=== PATIENT | female | born 2005 | race African-American/Black ===

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

== ENCOUNTER 2024-04-12 21:03 | Emergency (ER) | payer BC, OTHER, SELFPAY ==
[2024-04-12 21:14] VITALS: BP 131/73; PULSE 100; RESP 20; TEMP 36.7; O2SAT 99
--- NOTE | 2024-04-12 23:20 | ED.ANIMALBIT ---
HPI - Animal Bite General Chief Complaint: Animal Bite Stated Complaint: dog bite Time Seen by Provider: 04/12/24 22:22 Source: patient Mode of arrival: ambulatory Limitations: no limitations History of Present Illness HPI narrative: This is a 18-year-old female who presents to the ED with chief complaint of dog bite injury that occurred just prior to arrival. Patient reports that she was trying to pad her boyfriend's dog, when she seemed to have aggravated the dog. Reports the dog came up and bit her bottom lip. Denies any further sites of pain or injury. Related Data Home Medications Medication Instructions Recorded Confirmed insulin glargine 100 unit/mL (3 5 unit subcut QPM 12/05/21 12/05/21 mL) subcutaneous pen (Basaglar KwikPen U-100 Insulin) insulin lispro 100 unit/mL 1 sliding scale dose subcut 12/05/21 12/05/21 subcutaneous half-unit pen USEASDIRECTD oxybutynin chloride 10 mg 10 mg PO DAILY 12/05/21 12/05/21 tablet,extended release 24 hr etonogestrel 68 mg subdermal 1 implant subdermal ONCE 07/30/23 implant (Nexplanon) Allergies Allergy/AdvReac Type Severity Reaction Status Date / Time No Known Allergies Allergy Verified 04/12/24 22:24 Review of Systems Review of Systems: All systems as dictated in [facility] Past Medical History Medical History Encounter for surveillance of other contraceptives Type 1 diabetes Family History Family History Grandparent Diabetes mellitus Social History Social History Smoking status: Never smoker Alcohol intake: never Substance use: never Living arrangements: with family Occupation/Education: student Additional occupation/education comments: [employer] in high school Gender identity (if verbalized by the patient): Female Sexual Orientation (if Verbalized by the Patient): Bisexual Exam Narrative: GENERAL: Well-appearing, well-nourished, and in no acute distress. HEAD: Normocephalic, atraumatic. EYES: PERRLA and EOMI. ENT: Nares clear, no rhinorrhea or epistaxis. Mucous membranes moist. Oropharynx without tonsillar hypertrophy exudate or other lesions. NECK: Supple. No adenopathy or masses. CHEST: No respiratory distress. Clear to auscultation. No wheezes rales or rhonchi HEART: Regular rate and rhythm. No murmur heard. Normal peripheral pulses. ABDOMEN: Soft, nontender, nondistended, normal active bowel sounds. MSK: Normal range of motion. No edema. SKIN: 1 cm laceration to the lower lip/chin area. It is not through and through. Additional superficial laceration noted to the upper lip/philtrum area. No vermilion border involvement throughout Additional superficial laceration to the mucosal surface of the bottom lip. No active bleeding NEURO: Alert and oriented x3. No focal deficits. PSYCH: Normal mood and affect. Course Vital Signs Vital signs: Vital Signs Temperature 98.1 F 04/12/24 21:14 Pulse Rate 100 04/12/24 21:14 Respiratory Rate 20 04/12/24 21:14 Blood Pressure 131/73 04/12/24 21:14 Pulse Oximetry 99 04/12/24 21:14 Temperature 98.1 F 04/12/24 21:14 Pulse Rate 100 04/12/24 21:14 Respiratory Rate 20 04/12/24 21:14 Blood Pressure 131/73 04/12/24 21:14 Pulse Oximetry 99 04/12/24 21:14 Procedures Laceration Laceration 1: Date: 04/13/24 Time: 00:08 Site: lip Size (cm): 1 Description: linear Depth: simple, single layer Local Anesthetic: lidocaine 1% Amount of anesthesia used (mL): 1 Pre-repair: wound explored, irrigated extensively and deep structures intact ====== Skin Level ====== Skin layer closed with: nylon Size (cm): 6-0 Number of sutures: 1 Technique: simple, interrupted ====== Subcutaneous Layer =
[2024-04-13] MEDS: TETANUS,DIPHTHERIA,AC PERTUSSIS ADULT (0.5 ML) BOOSTRIX IM (00:40)
[2024-04-13] MEDS: LIDOCAINE HCL 1% LOCAL INJ 10 ML VIAL INFILTRATE (00:40)
== END 2024-04-13 00:52 | disposition home or self-care (01) ==
PROVIDERS: Emergency Provider Physician Assistant
DX: S01.551A Open bite of lip, initial encounter (principal); Z23 Encounter for immunization; E10.9 Type 1 diabetes mellitus without complications; Z79.4 Long term (current) use of insulin; W54.0XXA Bitten by dog, initial encounter
CPT/HCPCS: 12011; 90471; 90715; 99283

== ENCOUNTER 2024-11-14 12:39 | Observation (INO) | payer BC, OTHER, SELFPAY ==
--- NOTE | ~2024-11-14 | XR_ITS ---
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 RESULT: Lines, tubes, and devices: None. Lungs and pleura: Clear. Cardiomediastinal silhouette: Normal. Other: No acute osseous or upper abdominal finding. IMPRESSION: No acute cardiopulmonary process. Reviewed, dictated and finalized at location K. OPERATION SUPERVISOR
[2024-11-14 12:43] VITALS: BP 107/51; PULSE 112; RESP 18; TEMP 36.7; O2SAT 100
[2024-11-14 13:01] LABS: Glucose Point of Care 381 mg/dl (65-105)
[2024-11-14 13:46] LABS: Basophils Percent Auto 0.3 % (0.2-1.2); Eosinophils Absolute Auto 0.1 K/mm3 (0-0.3); Eosinophils Percent Auto 0.6 % (0-4.4); Hematocrit 40.4 % (37.0-47.0); Hemoglobin 13.8 g/dL (12.0-15.0); Immature Granulocyte Absolute 0.02 K/mm3 (0.00-0.031); Immature Granulocyte Percent A 0.2 % (0-0.5); Lymphocytes Absolute Auto 1.74 K/mm3 (0.9-3.2); Lymphocytes Percent Auto 19.6 % (18.3-44.2); Mean Corpuscular HGB Conc 34.2 g/dl (32-36); Mean Corpuscular Hemoglobin 29.6 pg (26-34); Mean Corpuscular Volume 86.7 fl (80-100); Mean Platelet Volume 9.2 fl (7.4-10.4); Monocytes Absolute Auto 0.7 K/mm3 (0.1-0.6); Monocytes Percent Auto 7.3 % (2.6-8.5); Neutrophils Absolute Auto 6.4 K/mm3 (1.3-6.7); Platelet Count Result 298 k/mm3 (150-375); Red Blood Count 4.66 M/mm3 (4.2-5.4); Red Cell Distribution Width 12.2 % (11.5-14.5); White Blood Count 8.9 K/mm3 (4.5-10.0)
[2024-11-14 13:58] LABS: Alanine Aminotransferase 13 U/L (6-35); Albumin Level 4.4 g/dL (3.5-5.1); Alkaline Phosphatase 110 U/L (38-126); Anion Gap 11 mmol/L (4-12); Aspartate Amino Transferase 22 U/L (14-36); Bilirubin,Total 0.8 mg/dL (0.2-1.3); Blood Urea Nitrogen 17 mg/dL (7-17); Calcium 9.9 mg/dL (8.4-10.2); Carbon Dioxide 21 mmol/L (22-30); Chloride 100 mmol/L (98-107); Estimated Glomerular Filt Rate > 60; Glucose 361 mg/dL (65-110); Magnesium 1.8 mg/dL (1.6-2.3); Phosphorus 4.3 mg/dL (2.5-4.5); Potassium 4.7 mmol/L (3.4-5.0); Sodium 132 mmol/L (137-145)
[2024-11-14 14:05] LABS: Beta-Hydroxybutyrate/Acetoacetate 2.28 mmol/L (0.02-0.27)
[2024-11-14 14:52] LABS: Add Urine Microscopic? YES; Appearance Urine Cloudy (Clear); Bacteria Urine None Seen /hpf; Bilirubin Urine Negative (Negative); Blood Urine Negative (Negative); Color Urine Yellow (Yellow); Glucose Urine UA 3+ mg/dL (Negative); Ketones Urine 4+ mg/dL (Negative); Leukocyte Esterase Ur Negative LEU/UL (Negative); Nitrate Urine Negative (Negative); Non Pathogenic Casts 0-2; Protein Urine Negative (Negative); Specific Grav Ur 1.036 (1.001-1.035); Squamous Epithelial Cell Urine None Seen /hpf (Few); Urobilinogen Urine 0.2 mg/dL (<2.0); WBC Urine 0-5 /hpf (0-3)
[2024-11-14] MEDS: SODIUM CHLORIDE 0.9% IV 1,000 ML 999 ML IV CONT (15:25)
[2024-11-14] MEDS: LACTATED RINGERS 1,000 ML 999 ML IV CONT ×2 (15:35)
[2024-11-14] MEDS: KETOROLAC 15 MG/ML VIAL (*BKC) IV PUSH (16:04)
[2024-11-14 17:10] VITALS: RESP 16; O2SAT 99
--- NOTE | 2024-11-14 17:11 | PC.NURSE ---
pt father came out to alert this RN that patient was in pain. Initially when RN went to assess pain, pt could not tell this RN where her pain was, just said it started a few minutes ago and repeated its 7-8 . When RN went in again to assess, pt states pain is from her chin to her belly and it only started a few minutes ago. Father also endorses that patient mother is a nurse and would like a chest XR and respiratory panel run for concern for pneumonia since she has had this cough for 3 weeks. No cough noted per RN. Pt does not seem to want to participate in care, allows father to do all the talking. Pt ambulated with steady gait to restroom for urine sample, father upset that this RN did not walk her across the perez to the bathroom due to her pain. MD aware, orders placed for chest XR
[2024-11-14] MEDS: MORPHINE SULFATE (*CRX) 4 MG/ML INJ IV PUSH (17:42)
[2024-11-14 17:49] LABS: BEDSIDEPREGUCG Negative (Negative)
[2024-11-14 18:01] LABS: Anion Gap 11 mmol/L (4-12); Blood Urea Nitrogen 15 mg/dL (7-17); Calcium 9.3 mg/dL (8.4-10.2); Carbon Dioxide 17 mmol/L (22-30); Chloride 104 mmol/L (98-107); Estimated Glomerular Filt Rate > 60; Glucose 286 mg/dL (65-110); Potassium 4.3 mmol/L (3.4-5.0); Sodium 132 mmol/L (137-145)
[2024-11-14 18:05] LABS: Beta-Hydroxybutyrate/Acetoacetate 2.38 mmol/L (0.02-0.27)
[2024-11-14 18:20] LABS: Influenza A QL RT-PCR Negative (Negative); Influenza B QL RT-PCR Negative (Negative); RSV RNA, RT-PCR Negative (Negative); SARS-CoV-2 RNA PCR Negative (Negative)
--- NOTE | 2024-11-14 18:39 | ED.RECABL ---
HPI - Recheck/Abnormal Lab/Rx General Chief Complaint: Recheck/Abnormal Lab/Rx Stated Complaint: ketoacidosis Time Seen by Provider: 11/14/24 15:05 History of Present Illness HPI narrative: 19-year-old female with a past medical history of insulin-dependent diabetes presented to the emergency depart accompanied by mother and father for concerns of diabetic ketoacidosis. Patient was recently started on insulin pump about 5 days prior and transition from her subcutaneous insulin. She does that despite insulin pump she was having high glucose readings on her glucometer and continues glucose monitor. She states that it read high multiple times and she end up taking additional subcutaneous insulin without any bulging in her levels. Patient presents to the emergency department for evaluation. She denies any nausea or vomiting but states she is having some vague back pain. No fever chills, cough, congestion. Was otherwise in her normal state of health. Has had previous DKA admissions in ICU hospitalizations previously in childhood. Her mother states that she is not nearly as severe she usually is in her DKA. Laboratory studies were drawn triage. Related Data Home Medications ?Medication ?Instructions ?Recorded ?Confirmed ?Last Taken ?Type insulin glargine 100 unit/mL (3 5 unit subcut QPM 12/05/21 12/05/21 Unknown History mL) subcutaneous pen (Basaglar KwikPen U-100 Insulin) insulin lispro 100 unit/mL 1 sliding scale dose subcut 12/05/21 12/05/21 Unknown History subcutaneous half-unit pen USEASDIRECTD oxybutynin chloride 10 mg 10 mg PO DAILY 12/05/21 12/05/21 Unknown History tablet,extended release 24 hr etonogestrel 68 mg subdermal 1 implant subdermal ONCE 07/30/23 Unknown History implant (Nexplanon) Allergies Allergy/AdvReac Type Severity Reaction Status Date / Time No Known Allergies Allergy Verified 11/14/24 12:40 Review of Systems Review of Systems: As reviewed above in HPI [facility] Past Medical History Medical History Encounter for surveillance of other contraceptives Type 1 diabetes Family History Family History Grandparent Diabetes mellitus Social History Social History Smoking status: Never smoker Alcohol intake: never Substance use: never Living arrangements: with family Occupation/Education: student Additional occupation/education comments: [employer] in high school Gender identity (if verbalized by the patient): Female Sexual Orientation (if Verbalized by the Patient): Bisexual Exam Narrative: GENERAL: [Well-appearing, well-nourished, and in no acute distress.] HEAD: [Normocephalic, atraumatic.] EYES: [PERRLA and EOMI.] ENT: Nares clear, no rhinorrhea or epistaxis. Mucous membranes dry. NECK: Supple. CHEST: [Clear to auscultation. No respiratory distress.] HEART: [Regular rate and rhythm]. No murmur heard. [Normal peripheral pulses.] ABDOMEN: [Soft, nondistended], [nontender], [No rigidity or guarding] insulin pump in her right lateral abdomen no overlying skin changes or erythema, cellulitis. EXTREMITIES: Normal range of motion. [No edema.] SKIN: Warm, dry, no rash. NEURO: [No focal deficits]. Alert and oriented [x3.] PSYCH: [Normal mood and affect.] Course Vital Signs Vital signs: Vital Signs Temperature 36.7 C 11/14/24 12:43 Pulse Rate 112 H 11/14/24 12:43 Respiratory Rate 18 11/14/24 12:43 Blood Pressure 107/51 L 11/14/24 12:43 Pulse Oximetry 100 11/14/24 12:43 Oxygen Delivery Room Air 11/14/24 12:43 Temperature 36.7 C 11/14/24 12:43 Pulse Rate 112 H 11/14/24 12:43 Respiratory Rate 16 11/14/24 17:10 Blood Pressure 107/51 L 11/14/24 12:43 Pulse Oximetry 99 11/14/24 17:10 Oxygen Delivery Room Air 11/14/24 12:43 MDM - Recheck/Abnormal Lab/Rx MDM Narrative Medical decision making narrative: 19-year-old female with a past medical history including insulin-dependent diabetes presenting to the emergency department for evaluation of potential diabetic ketoacidosis. She does appear dryness tachycardic with a pulse 112 but otherwise afebrile, no hypoxia, no nausea or vomiting. Some vague back pain that she states she has had on off for some time. Recently started on insulin pump and thinks that could be malfunctioning. I did review the insulin pump on her continuous glucometer and noticed that it appears to not be injecting any appropriate insulin doses as she is still getting hyperglycemia and having multiple episodes of high readings despite supposed insulin junction. DKA workup was ordered this time including beta hydroxybutyrate, CBC, CMP. Chest x-ray, urinalysis and test was ordered. She is given a total of 3 L of hydration off initial bolus. Initial beta hydroxybutyrate is elevated 2.28, mild acidosis with a bicarb of 21, no anion gap. Potassium 4.7. She was given fluid hydration and repeat labs were drawn several hours later which show actual worsening status and now she is slightly more acidotic with a bicarb of 17 and elevated beta at 2.38 and this is despite fluid resuscitation and the basal rate of insulin through her insulin pump is still on her. At this time I did remove the insulin pump and transition her to IV insulin for her slightly elevated beta hydroxybutyrate and clinical diagnosis of mild DKA with acidosis, ketones, elevated glucose, no elevated anion gap at this time but she is still slightly tachycardic. I believe she would benefit from a very short course of IV insulin and transition back to subcutaneous therapy and hospital admission for titration and management of her insulin pump to get her on appropriate regimen and to make sure it is working properly. Patient and family were appreciative of this and agreeable to this plan of care. No obvious triggers otherwise she has no signs of infection, chest x-ray without pneumonia, urinalysis without infection, negative test, negative swabs. DKA protocol was ordered including potassium supplemented dextrose fluids and 0.1 units/kilogram IV insulin with frequent glucose checks. She will require ICU admission briefly for glucose checks and make sure her acidosis is resolved and her beta hydroxybutyrate down trends. I discussed this with the tank wagon operator over the phone who accepted her to the ICU for monitoring and IV insulin. I spoke to the hospitalist being covered by the midlevel provider Brandie at this time and they also accepted the patient to the hospital at this time. Medical Records Attestation: I reviewed the patient's medical records. Lab Data Attestation: I reviewed the patient's lab results. 11/14/24 13:39 11/14/24 17:26 Labs: Lab Results 11/14/24 11/14/24 11/14/24 Range/Units 12:51 13:39 14:36 WBC 8.9 (4.5-10.0) K/mm3 RBC 4.66 (4.2-5.4) M/mm3 Hgb 13.8 (12.0-15.0) g/dL Hct 40.4 (37.0-47.0) % MCV 86.7 (80-100) fl MCH 29.6 (26-34) pg MCHC 34.2 (32-36) g/dl RDW 12.2 (11.5-14.5) % Plt Count 298 (150-375) k/mm3 MPV 9.2 (7.4-10.4) fl Immature Gran % (Auto) 0.2 (0-0.5) % Neut % (Auto) 72.0 (45.5-73.1) % Lymph % (Auto) 19.6 (18.3-44.2) % Mel[place] % (Auto) 7.3 (2.6-8.5) % Eos % (Auto) 0.6 (0-4.4) % Baso % (Auto) 0.3 (0.2-1.2) % Lymph # (Auto) 1.74 (0.9-3.2) K/mm3 Mel[place] # (Auto) 0.7 H (0.1-0.6) K/mm3 Eos # (Auto) 0.1 (0-0.3) K/mm3 Baso # (Auto) 0.0 (0.0-0.1) K/mm3 Abs Immat Gran (auto) 0.02 (0.00-0.031) K/mm3 Absolute Neuts (auto) 6.4 (1.3-6.7) K/mm3 Absolute Nucleated RBC 0.000 (0.0-0.012) K/mm3 Nucleated RBC % 0.0 (0.0-0.2) % Sodium 132 L (137-145) mmol/L Potassium 4.7 (3.4-5.0) mmol/L Chloride 100 (98-107) mmol/L Carbon Dioxide 21 L (22-30) mmol/L Anion Gap 11 (4-12) mmol/L BUN 17 (7-17) mg/dL Creatinine 0.60 L (0.7-1.0) mg/dL Estim Creat Clear Calc Not Reportable Estimated GFR > 60 (59 - ) Glucose 361 H (65-110) mg/dL POC Capillary Glucose 381 H (65-105) mg/dl Calcium 9.9 (8.4-10.2) mg/dL Phosphorus 4.3 (2.5-4.5) mg/dL Magnesium 1.8 (1.6-2.3) mg/dL Total Bilirubin 0.8 (0.2-1.3) mg/dL AST 22 (14-36) U/L ALT 13 (6-35) U/L Alkaline Phosphatase 110 (38-126) U/L Total Protein 8.0 (6.3-8.2) g/dL Albumin 4.4 (3.5-5.1) g/dL Beta-Hydroxybutyrate/Acetoacetate 2.28 H (0.02-0.27) mmol/L Urine Color Yellow (Yellow) Urine Appearance Cloudy H (Clear) Urine pH 5.0 (5.0-9.0) Ur Specific [place] 1.036 H (1.001-1.035) Urine Protein Negative (Negative) mg/dL Urine Glucose (UA) 3+ H (Negative) mg/dL Urine Ketones 4+ H (Negative) mg/dL Ur Blood (Man) Negative (Negative) Urine Nitrate Negative (Negative) Urine Bilirubin Negative (Negative) Urine Urobilinogen 0.2 (<2.0) mg/dL Leukocyte Esterase Rfl Negative (Negative) JENNIFER/UL Urine RBC 3-5 H (0-2) /hpf Urine WBC 0-5 (0-3) /hpf Ur Squamous Epith Cells None seen (Few) /hpf Urine Bacteria None seen /hpf Urine Casts 0-2 POC Urine HCG, Qual (Negative) Influenza A (RT-PCR) (Negative) Influenza B (RT-PCR) (Negative) RSV (RT-PCR) (Negative) SARS-CoV-2 RNA (RT-PCR) (Negative) 11/14/24 11/14/24 Range/Units 17:26 17:47 WBC (4.5-10.0) K/mm3 RBC (4.2-5.4) M/mm3 Hgb (12.0-15.0) g/dL Hct (37.0-47.0) % MCV (80-100) fl MCH (26-34) pg MCHC (32-36) g/dl RDW (11.5-14.5) % Plt Count (150-375) k/mm3 MPV (7.4-10.4) fl Immature Gran % (Auto) (0-0.5) % Neut % (Auto) (45.5-73.1) % Lymph % (Auto) (18.3-44.2) % Mellette % (Auto) (2.6-8.5) % Eos % (Auto) (0-4.4) % Baso % (Auto) (0.2-1.2) % Lymph # (Auto) (0.9-3.2) K/mm3 Mellette # (Auto) (0.1-0.6) K/mm3 Eos # (Auto) (0-0.3) K/mm3 Baso # (Auto) (0.0-0.1) K/mm3 Abs Immat Gran (auto) (0.00-0.031) K/mm3 Absolute Neuts (auto) (1.3-6.7) K/mm3 Absolute Nucleated RBC (0.0-0.012) K/mm3 Nucleated RBC % (0.0-0.2) % Sodium 132 L (137-145) mmol/L Potassium 4.3 (3.4-5.0) mmol/L Chloride 104 (98-107) mmol/L Carbon Dioxide 17 L (22-30) mmol/L Anion Gap 11 (4-12) mmol/L BUN 15 (7-17) mg/dL Creatinine 0.50 L (0.7-1.0) mg/dL Estim Creat Clear Calc Not Reportable Estimated GFR > 60 (59 - ) Glucose 286 H (65-110) mg/dL POC Capillary Glucose (65-105) mg/dl Calcium 9.3 (8.4-10.2) mg/dL Phosphorus (2.5-4.5) mg/dL Magnesium (1.6-2.3) mg/dL Total Bilirubin (0.2-1.3) mg/dL AST (14-36) U/L ALT (6-35) U/L Alkaline Phosphatase (38-126) U/L Total Protein (6.3-8.2) g/dL Albumin (3.5-5.1) g/dL Beta-Hydroxybutyrate/Acetoacetate 2.38 H (0.02-0.27) mmol/L Urine Color (Yellow) Urine Appearance (Clear) Urine pH (5.0-9.0) Ur Specific [place] (1.001-1.035) Urine Protein (Negative) mg/dL Urine Glucose (UA) (Negative) mg/dL Urine Ketones (Negative) mg/dL Ur Blood (Man) (Negative) Urine Nitrate (Negative) Urine Bilirubin (Negative) Urine Urobilinogen (<2.0) mg/dL Leukocyte Esterase Rfl (Negative) JENNIFER/UL Urine RBC (0-2) /hpf Urine WBC (0-3) /hpf Ur Squamous Epith Cells (Few) /hpf Urine Bacteria /hpf Urine Casts POC Urine HCG, Qual Negative (Negative) Influenza A (RT-PCR) Negative (Negative) Influenza B (RT-PCR) Negative (Negative) RSV (RT-PCR) Negative (Negative) SARS-CoV-2 RNA (RT-PCR) Negative (Negative) Imaging Data Attestation: I personally reviewed and interpreted this imaging study as follows: My impression: Impressions Chest X-Ray 11/14/24 17:35 IMPRESSION: No acute cardiopulmonary process. Critical Care Time Critical Care Time Critical Care Time: Yes Total Critical Care Time: 50 Discharge Plan Discharge Clinical Impression: Diabetic ketoacidosis without coma, Type 1 diabetes, Complication of insulin pump Patient Disposition: Still a Patient Condition: Stable Patient Language: Cook Islander Prescriptions: No Action Khadijah Rojo U-100 Insulin 100 unit/mL (3 mL) insulin pen 5 unit subcut QPM insulin lispro 100 unit/mL insulin pen, half-unit 1 sliding scale dose subcut USEASDIRECTD oxybutynin chloride 10 mg tablet extended release 24hr 10 mg PO DAILY clotrimazole 1 % cream 1 applic topical Q12H PRN (Reason: vulvar) Qty: 45 1RF Nexplanon 68 mg implant 1 implant subdermal ONCE Rx Instructions: as a single dose amoxicillin-pot clavulanate 875-125 mg tablet 1 tablet PO Q12H Qty: 10 0RF amoxicillin-pot clavulanate 875-125 mg tablet 1 tablet PO Q12H Qty: 10 0RF fluconazole 150 mg tablet 150 mg PO Q72H Qty: 2 0RF Follow-up/Referrals: UNKNOWN,DOCTOR [Primary Care Provider] - Time of Disposition: 18:52
[2024-11-14] MEDS: INSULIN HUMAN REGULAR (*BKC) 100 UNITS in SODIUM CHLORIDE 0.9% IV 99 ML 6.5 UNITS IV CONT (18:51)
[2024-11-14 19:00] LABS: Magnesium 1.5 mg/dL (1.6-2.3)
--- NOTE | 2024-11-14 20:05 | ADMGEN ---
This patient, Anaid Dimas, was admitted to Intensive Care Unit-3. Patient/family oriented to hospital policies and general routines including ID bracelet, bed and alarms, visiting hours, pain management, procedures, bathroom and other care routines, personal items, smoking policy, room service/diet, and visiting hours. Information on how to activate the Rapid Response Team has been discussed. Patient/Family are encouraged to report perceived risks to care and to ask questions if they do not understand what they are told or what they should do.
--- NOTE | 2024-11-14 20:19 | PM.IMHP ---
H&P: HPI History of Present Illness Date/Time: 11/14/24 20:19 Chief Complaint: Nausea and vomiting Narrative: This is a 19-year-old female with past medical history significant for type 1 diabetes mellitus, patient recently was started on insulin pump. Had abnormal reading blood glucose at 300 and 400 according to monitor + comes to the emergency room due to nausea and vomiting. Preliminary workup was significant for elevated beta hydroxybutyrate. Patient tested negative for COVID RSV influenza type A and influenza type B. patient has been admitted for further evaluation management and treatment. 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 RESULT: Lines, tubes, and devices: None. Lungs and pleura: Clear. Cardiomediastinal silhouette: Normal. Other: No acute osseous or upper abdominal finding. IMPRESSION: No acute cardiopulmonary process. Review of Systems Review of Systems: Nausea, vomiting, uncontrolled sugars, abdominal pain. [facility] Past Medical History Medical History Encounter for surveillance of other contraceptives Type 1 diabetes Family History Family History Grandparent Diabetes mellitus Social History Social History Smoking status: Never smoker Alcohol intake: never Substance use: never Do You Feel Safe in your Home?: Yes Lack of Transportation: No Lack of Food: Never True Current Housing: I Have Housing Concerned About Future Housing: No Difficulty Paying Gas/Electric Bills: No Difficulty Paying for Meds: No Currently Unemployed: No Education: Decline to Answer Difficulty w/ Childcare or Family Care: No Living arrangements: with family Occupation/Education: student Additional occupation/education comments: [employer] in high school Gender identity (if verbalized by the patient): Female Sexual Orientation (if Verbalized by the Patient): Bisexual Spiritual care concerns: No Meds Home Medications and Allergies Home Medications ?Medication ?Instructions ?Recorded ?Confirmed ?Type blood-glucose sensor (Dexcom G6 11/14/24 11/14/24 History Sensor device) blood-glucose transmitter (Dexcom 11/14/24 11/14/24 History G6 Transmitter device) insulin pump cart,auto,BT,G6/7 11/14/24 11/14/24 History (Omnipod 5 G6-G7 Pods (Gen 5) subcutaneous cartridge) insulin pump cartridge,auto 11/14/24 11/14/24 History dose,BT,G6/G7 with controller subcutaneous (Omnipod 5 G6-G7 Intro Kit(Gen 5) subcutaneous cartridge and controller) Allergies Allergy/AdvReac Type Severity Reaction Status Date / Time No Known Allergies Allergy Verified 11/14/24 12:40 Vital Signs Vital Signs - 24 hr 11/14/24 12:43 11/14/24 17:10 Temperature 98.0 F Pulse Rate 112 H Respiratory Rate 18 16 Blood Pressure 107/51 L Pulse Oximetry 100 99 Oxygen Delivery Room Air Exam Narrative: Patient is laying in bed Const: General: comfortable, no acute distress, well developed, alert, awake, tired appearing and thin Nutritional Appearance: thin Orientation/consciousness: patient oriented x3 HENMT: Head: normal to inspection, normocephalic and atraumatic Ears: hearing grossly normal bilaterally Face/Nose/Sinus: normal facial exam Face and sinus: normal facial exam Eyes: General: appearance normal, both eyes and all related structures Pupils: Equal, round and reactive pupils present EOM: EOMs intact bilaterally Neck: Neck: full ROM, no lymphadenopathy and no JVD Thyroid: thyroid normal Lymphatic: no lymphadenopathy noted Resp: Effort & Inspection: normal respiratory effort and able to speak in complete sentences Auscultation: clear to auscultation bilaterally Cardio: Jugular venous distension: no JVD Rate: regular rate Rhythm: regular rhythm Heart sounds: S1 normal heart sound present and S2 normal heart sound present GI: GI Palp: Yes Soft to palpation and Yes No hepatosplenomegaly present : General: Yes deferred Skin: Rashes: no rashes Wounds: no wounds Neuro: General: patient oriented x3 and CN's II-XI intact bilaterally Cranial nerves: Yes CN's II-XII intact bilaterally and Yes Equal, round and reactive pupils present Cognition (Neuro): normal cognition Speech: normal speech Gait exam (Neuro): Unable to assess gait Motor exam (neuro): 5/5 motor strength present throughout Extrem: General: normal to inspection, full ROM, no joint enlargement and no pedal edema H&P: Results Labs Labs: Short CBC 12/23/24 Range/Units 13:39 WBC 8.9 (4.5-10.0) K/mm3 Hgb 13.8 (12.0-15.0) g/dL Hct 40.4 (37.0-47.0) % Plt Count 298 (150-375) k/mm3 BMP 11/14/24 11/14/24 13:39 17:26 Sodium 132 L 132 L Potassium 4.7 4.3 Chloride 100 104 Carbon Dioxide 21 L 17 L BUN 17 15 Creatinine 0.60 L 0.50 L Glucose 361 H 286 H Calcium 9.9 9.3 Liver Function 11/14/24 Range/Units 13:39 Total Bilirubin 0.8 (0.2-1.3) mg/dL AST 22 (14-36) U/L ALT 13 (6-35) U/L Alkaline Phosphatase 110 (38-126) U/L Albumin 4.4 (3.5-5.1) g/dL Urine 11/14/24 Range/Units 14:36 Urine Color Yellow (Yellow) Urine Appearance Cloudy H (Clear) Urine pH 5.0 (5.0-9.0) Ur Specific [place] 1.036 H (1.001-1.035) Urine Protein Negative (Negative) mg/dL Urine Glucose (UA) 3+ H (Negative) mg/dL Assessment and Plan Assessment and plan (1) Diabetic ketoacidosis without coma: Code(s): E11.10 - Type 2 diabetes mellitus with ketoacidosis without coma Status: Acute Assessment and Plan: Admit to ICU DKA protocol (2) Type 1 diabetes: Code(s): E10.9 - Type 1 diabetes mellitus without complications Status: Acute Assessment and Plan: Patient on insulin pump Hospitalist TRESSA Advance Care Plan I have confirmed that the patient's Advanced Care Plan is present, code status is documented, or surrogate decision maker is listed in patient medical record.: Yes Medication Reconciliation The patient is not eligible for med reconciliation; the patient is in a emergent medical situation where delaying treatment would jeopardize the patients health.: Yes
[2024-11-14 20:20] VITALS: BP 112/77; PULSE 98; RESP 17; TEMP 36.9; O2SAT 97
[2024-11-14 20:20] LABS: Glucose Point of Care 231 mg/dl (65-105)
[2024-11-14] MEDS: KCL 20 MEQ/D5/0.45% SOD CHL 1,000 ML 150 ML IV CONT (21:00)
[2024-11-14 21:10] VITALS: BMI 23.0
[2024-11-14 21:41] VITALS: PULSE 106; RESP 20; O2SAT 97
[2024-11-14 22:00] VITALS: BP 115/59; PULSE 105; PULSE 106; RESP 20; O2SAT 97
[2024-11-14 22:04] LABS: Glucose Point of Care 155 mg/dl (65-105)
[2024-11-14 22:51] LABS: MRSA (PCR) NOT DETECTED (NOT DETECTE)
[2024-11-14 23:02] LABS: Glucose Point of Care 133 mg/dl (65-105)
[2024-11-14 23:23] LABS: Anion Gap 7 mmol/L (4-12); Blood Urea Nitrogen 13 mg/dL (7-17); Calcium 9.1 mg/dL (8.4-10.2); Carbon Dioxide 21 mmol/L (22-30); Chloride 104 mmol/L (98-107); Estimated CRCL calculation 140 ml/min; Estimated Glomerular Filt Rate > 60; Glucose 141 mg/dL (65-110); Potassium 4.2 mmol/L (3.4-5.0); Sodium 132 mmol/L (137-145)
--- NOTE | 2024-11-14 23:33 | PC.NURSE ---
Updated Dr. Vora regarding current Lab results. Give 20 units of Lantus Subcutaneous x1 now. Start on Low dose SSI ACHS. Okay for Diabetic Diet. Turn off insulin drip 30 minutes after administration of Lantus per Dr. Vora. KUMAR
[2024-11-14] MEDS: INSULIN GLARGINE (*BKC) 100 UNITS/ML 20 UNITS SUB-Q (23:47)
[2024-11-14 23:53] VITALS: PULSE 98; RESP 20; O2SAT 100
[2024-11-15] VITALS (7 sets, daily range): BP systolic 107–129; BP diastolic 54–84; PULSE 86–106; RESP 14–20; TEMP 36.3–36.9; O2SAT 98–100; BMI 23.1
[2024-11-15 01:34] LABS: Glucose Point of Care 249 mg/dl (65-105)
[2024-11-15] MEDS: MAGNESIUM SULF 4 GM/WATER100ML 4 GM/100 ML BAG IVPB (03:25)
[2024-11-15 04:45] LABS: Anion Gap 2 mmol/L (4-12); Blood Urea Nitrogen 13 mg/dL (7-17); Calcium 8.5 mg/dL (8.4-10.2); Carbon Dioxide 24 mmol/L (22-30); Chloride 103 mmol/L (98-107); Estimated CRCL calculation 91 ml/min; Estimated Glomerular Filt Rate > 60; Glucose 341 mg/dL (65-110); Magnesium 3.2 mg/dL (1.6-2.3); Potassium 4.5 mmol/L (3.4-5.0); Sodium 129 mmol/L (137-145)
[2024-11-15 07:55] LABS: Glucose Point of Care 277 mg/dl (65-105)
[2024-11-15] MEDS: INSULIN ASPART (*BKC) 100 UNITS/ML SUB-Q ×6 (08:03→20:40)
[2024-11-15] MEDS: INSULIN GLARGINE (*BKC) 100 UNITS/ML SUB-Q (08:03)
--- NOTE | 2024-11-15 08:17 | WPDCNINT ---
Assessment and Plan Assessment and plan (1) Diabetic ketoacidosis without coma: Code(s): E11.10 - Type 2 diabetes mellitus with ketoacidosis without coma Status: Acute Assessment and Plan: 11/14: Patient presented with nausea, vomiting, elevated blood sugars in the 300-400s. Patient was recently started on insulin pump and since she has been having elevated blood sugars, possible complications of insulin pump or malfunction -diagnosed with mild DKA as she had non-anion gap metabolic -Patient was given 3 L IV fluid bolus in the ER, started on insulin infusion per DKA protocol along with the fluids -patient was transition to long-acting insulin Lantus and sliding scale insulin last night -will give additional Lantus this morning -patient states she takes about a total of 18 units of insulin through the day -tolerating diabetic diet (2) Type 1 diabetes: Code(s): E10.9 - Type 1 diabetes mellitus without complications Status: Acute Assessment and Plan: Hemoglobin A1c is 8.0 this admission -defence intelligence analyst and dietitian to evaluate the patient Plan DVT prophylaxis: SCD, ambulate Stress ulcer prophylaxis: Not indicated Nutrition: Diabetic diet Code Status: Full code Critical Care Time Spent: 47 minutes Patient may transfer out of the ICU if okay with hospitalist Due to a high probability of clinically significant, life threatening deterioration, the patient required my highest level of preparedness to intervene emergently and I personally spent this critical care time directly and personally managing the patient. This critical care time included obtaining a history; examining the patient; pulse oximetry; ordering and review of studies; arranging urgent treatment with development of a management plan; evaluation of patient's response to treatment; frequent reassessment; and discussions with other providers. It was exclusive of separately billable procedures and treating other patients and teaching time. Please see Assessment and Plan section and the rest of the note for further information on patient assessment and treatment This dictation may have been done utilizing a voice recognition system. Attempts have been made to correct errors. However, there may be uncorrected grammatical, spelling, and recognitions errors present. Generator Assembler Consult Note Consult date: 11/15/24 Reason for consult: Diabetic ketoacidosis, malfunctioning of insulin pump HPI: Anaid Dimas is a 19 year old female past medical history of diabetes type 1 presented the ED on 11/14/2024 with complains of nausea, vomiting, elevated blood sugars in the 300-400 range, stated that she recently started on an insulin pump and since she is having elevated blood sugar readings on a glucometer and continues glucose monitor. Patient was tachycardic, was given 3 L IV fluid bolus with improvement in tachycardia, beta hydroxybutyrate was mildly elevated, CO2 is 20 with a non-anion gap metabolic acidosis. Potassium of 4.9. UA did show elevated glucose, ketones. Patient was started on insulin infusion and transferred to the ICU for further management. Patient seen and examined this morning, has been transitioned to long-acting insulin and sliding scale insulin since last night. S patient states he is feeling better, denies any nausea, vomiting, abdominal pain, no chest pain, shortness of breath. Is tolerating p.o. diet. Adequate urine output, hemodynamically stable and afebrile Review of Systems Review of Systems: All systems reviewed & are unremarkable except as noted in HPI and below PMFSH Past Medical History Medical History Encounter for surveillance of other contraceptives Type 1 diabetes Family History Family History Grandparent Diabetes mellitus Social History Social History Smoking status: Never smoker Alcohol intake: never Substance use: never Do You Feel Safe in your Home?: Yes Lack of Transportation: No Lack of Food: Never True Current Housing: I Have Housing Concerned About Future Housing: No Difficulty Paying Gas/Electric Bills: No Difficulty Paying for Meds: No Currently Unemployed: No Education: Decline to Answer Difficulty w/ Childcare or Family Care: No Living arrangements: with family Occupation/Education: student Additional occupation/education comments: [employer] in high school Gender identity (if verbalized by the patient): Female Sexual Orientation (if Verbalized by the Patient): Bisexual Spiritual care concerns: No Meds Home Medications and Allergies Home Medications ?Medication ?Instructions ?Recorded ?Confirmed ?Type blood-glucose sensor (Dexcom G6 11/14/24 11/14/24 History Sensor device) blood-glucose transmitter (Dexcom 11/14/24 11/14/24 History G6 Transmitter device) insulin pump cart,auto,BT,G6/7 11/14/24 11/14/24 History (Omnipod 5 G6-G7 Pods (Gen 5) subcutaneous cartridge) insulin pump cartridge,auto 11/14/24 11/14/24 History dose,BT,G6/G7 with controller subcutaneous (Omnipod 5 G6-G7 Intro Kit(Gen 5) subcutaneous cartridge and controller) Allergies Allergy/AdvReac Type Severity Reaction Status Date / Time No Known Allergies Allergy Verified 11/14/24 12:40 Vital Signs Vital Signs - 24 hr 11/14/24 12:43 11/14/24 17:10 11/14/24 20:20 Temperature 98.0 F 98.5 F Pulse Rate 112 H 98 Respiratory Rate 18 16 17 Blood Pressure 107/51 L 112/77 Pulse Oximetry 100 99 97 Oxygen Delivery Room Air 11/14/24 21:41 11/14/24 22:00 11/14/24 22:00 Temperature Pulse Rate 106 H 105 H 106 H Respiratory Rate 20 20 Blood Pressure 115/59 L Pulse Oximetry 97 97 Oxygen Delivery Room Air 11/14/24 23:53 11/15/24 00:00 11/15/24 00:00 Temperature 98.4 F Pulse Rate 98 94 98 Respiratory Rate 20 19 Blood Pressure 118/74 Pulse Oximetry 100 100 Oxygen Delivery Room Air 11/15/24 02:00 11/15/24 02:00 11/15/24 04:00 Temperature Pulse Rate 105 H 105 H 86 Respiratory Rate 20 20 Blood Pressure Pulse Oximetry 100 Oxygen Delivery Room Air 11/15/24 04:00 11/15/24 04:00 11/15/24 06:00 Temperature 98.3 F Pulse Rate 86 91 89 Respiratory Rate 20 Blood Pressure 107/69 Pulse Oximetry 99 Oxygen Delivery 11/15/24 06:00 Temperature Pulse Rate 89 Respiratory Rate 19 Blood Pressure 109/54 L Pulse Oximetry 100 Oxygen Delivery Exam Narrative: General: Pleasant female in no acute distress HEENT:? Pupils equal and reactive, sclerae skin Neck:? Supple Respiratory:? Clear to auscultation bilaterally, no wheezing, adequate air entry Cardiac:? S1-S2 normal, regular rate and rhythm Abdomen:? Soft, nontender, nondistended, normoactive bowel sound Extremities:? Palpable pedal pulses, no edema Neuro:? Patient is awake, alert, oriented x3, nonfocal Skin:? No skin lesions noted Psych:? Normal mentation and affect Results Labs 11/14/24 13:39 11/15/24 04:17 Labs: Short CBC 11/14/24 Range/Units 13:39 WBC 8.9 (4.5-10.0) K/mm3 Hgb 13.8 (12.0-15.0) g/dL Hct 40.4 (37.0-47.0) % Plt Count 298 (150-375) k/mm3 BMP 11/14/24 11/14/24 11/14/24 13:39 17:26 23:05 Sodium 132 L 132 L 132 L Potassium 4.7 4.3 4.2 Chloride 100 104 104 Carbon Dioxide 21 L 17 L 21 L BUN 17 15 13 Creatinine 0.60 L 0.50 L 0.50 L Glucose 361 H 286 H 141 H Calcium 9.9 9.3 9.1 11/15/24 04:17 Sodium 129 L Potassium 4.5 Chloride 103 Carbon Dioxide 24 BUN 13 Creatinine 0.70 Glucose 341 H Calcium 8.5 Liver Function 11/14/24 Range/Units 13:39 Total Bilirubin 0.8 (0.2-1.3) mg/dL AST 22 (14-36) U/L ALT 13 (6-35) U/L Alkaline Phosphatase 110 (38-126) U/L Albumin 4.4 (3.5-5.1) g/dL Urine 11/14/24 Range/Units 14:36 Urine Color Yellow (Yellow) Urine Appearance Cloudy H (Clear) Urine pH 5.0 (5.0-9.0) Ur Specific [place] 1.036 H (1.001-1.035) Urine Protein Negative (Negative) mg/dL Urine Glucose (UA) 3+ H (Negative) mg/dL
[2024-11-15 09:51] LABS: Glucose Point of Care 352 mg/dl (65-105)
[2024-11-15 11:41] LABS: Glucose Point of Care 292 mg/dl (65-105)
--- NOTE | 2024-11-15 13:30 | PM.IMPN ---
Progress Note: A&P Assessment and Plan (1) Diabetic ketoacidosis without coma: Code(s): E11.10 - Type 2 diabetes mellitus with ketoacidosis without coma Status: Acute Assessment and Plan: s/p Insulin adn IVF infusion Now on Lantus 25 u, 5 units premeal adn SSI with accucheks will monitor overnight (2) Type 1 diabetes: Code(s): E10.9 - Type 1 diabetes mellitus without complications Status: Acute Assessment and Plan: Hemoglobin A1c is 8.0 this admission -adaptive physical educator and dietitian to evaluate the patient Plan DVT prophylaxis: Sq Lovenox Nutrition: Diabetic diet Code Status: Full code Subjective Date/time seen: 11/15/24 13:30 Interval history: Comfortable at bedside Now on Sq insulin regimen Review of Systems Review of Systems: Nausea, vomiting, uncontrolled sugars, abdominal pain. All systems reviewed & are unremarkable except as noted in HPI and below Exam Narrative: General: Pleasant female in no acute distress HEENT:? Pupils equal and reactive, sclerae skin Neck:? Supple Respiratory:? Clear to auscultation bilaterally, no wheezing, adequate air entry Cardiac:? S1-S2 normal, regular rate and rhythm Abdomen:? Soft, nontender, nondistended, normoactive bowel sound Extremities:? Palpable pedal pulses, no edema Neuro:? Patient is awake, alert, oriented x3, nonfocal Skin:? No skin lesions noted Psych:? Normal mentation and affect Const: General: comfortable, no acute distress, well developed, alert, awake, tired appearing and thin Nutritional Appearance: thin Orientation/consciousness: patient oriented x3 HENMT: Head: normal to inspection, normocephalic and atraumatic Ears: hearing grossly normal bilaterally Face/Nose/Sinus: normal facial exam Face and sinus: normal facial exam Eyes: General: appearance normal, both eyes and all related structures Pupils: Equal, round and reactive pupils present EOM: EOMs intact bilaterally Neck: Neck: full ROM, no lymphadenopathy and no JVD Thyroid: thyroid normal Lymphatic: no lymphadenopathy noted Resp: Effort & Inspection: normal respiratory effort and able to speak in complete sentences Auscultation: clear to auscultation bilaterally Cardio: Jugular venous distension: no JVD Rate: regular rate Rhythm: regular rhythm Heart sounds: S1 normal heart sound present and S2 normal heart sound present : General: Yes deferred Skin: Rashes: no rashes Wounds: no wounds Neuro: General: patient oriented x3, CN's II-XI intact bilaterally and Unable to assess gait Cranial nerves: Yes CN's II-XII intact bilaterally and Yes Equal, round and reactive pupils present Cognition (Neuro): normal cognition Speech: normal speech Gait exam (Neuro): Unable to assess gait Motor exam (neuro): 5/5 motor strength present throughout Extrem: General: normal to inspection, full ROM, no joint enlargement and no pedal edema Objective Data Vital Signs Vital Signs: Vital Signs - 24 hr 11/14/24 17:10 11/14/24 20:20 11/14/24 21:41 Temperature 98.5 F Pulse Rate 98 106 H Respiratory Rate 16 17 20 Blood Pressure 112/77 Pulse Oximetry 99 97 97 Oxygen Delivery Room Air 11/14/24 22:00 11/14/24 22:00 11/14/24 23:53 Temperature Pulse Rate 105 H 106 H 98 Respiratory Rate 20 20 Blood Pressure 115/59 L Pulse Oximetry 97 100 Oxygen Delivery Room Air 11/15/24 00:00 11/15/24 00:00 11/15/24 02:00 Temperature 98.4 F Pulse Rate 94 98 105 H Respiratory Rate 19 Blood Pressure 118/74 Pulse Oximetry 100 Oxygen Delivery 11/15/24 02:00 11/15/24 04:00 11/15/24 04:00 Temperature 98.3 F Pulse Rate 105 H 86 86 Respiratory Rate 20 20 20 Blood Pressure 107/69 Pulse Oximetry 100 99 Oxygen Delivery Room Air 11/15/24 04:00 11/15/24 06:00 11/15/24 06:00 Temperature Pulse Rate 91 89 89 Respiratory Rate 19 Blood Pressure 109/54 L Pulse Oximetry 100 Oxygen Delivery 11/15/24 08:00 11/15/24 08:00 Temperature 97.4 F L Pulse Rate 98 106 H Respiratory Rate 17 Blood Pressure 118/75 Pulse Oximetry 98 Oxygen Delivery Intake/Output Intake/Output: Intake & Output 11/12/24 11/13/24 11/14/24 11/15/24 23:59 23:59 23:59 23:59 Intake Total 3021.5 1741.3 Balance 3021.5 1741.3 Meds/Results Medications: Active Medications Generic Name Dose Route Start Last Admin Trade Name Freq PRN Reason Stop Dose Admin Acetaminophen 650 mg 11/14/24 18:52 Acetaminophen 325 Mg Tablet PO Q4H PRN Mild Pain (1-3) or Fever Dextrose 12.5 gm 11/14/24 18:18 Dextrose 50% 25 Gm/50 Ml Syringe IV PUSH PRN PRN Hypoglycemia Protocol Glucagon 1 mg 11/14/24 23:32 Glucagon For Inj 1 Mg Vial IM PRN PRN Hypoglycemia Protocol Glucose 15 gm 11/14/24 18:18 Glucose Oral Gel 15 Gm Of Glucse In 37.5 Gm Tube PO PRN PRN Hypoglycemia Protocol Dextrose 1,000 mls @ 100 mls/hr 11/14/24 18:18 Dextrose 5% 1,000 Ml IVPB PRN PRN Hypoglycemia Protocol Insulin Aspart 4 - 8 units 11/15/24 08:00 11/15/24 11:42 Insulin Aspart (*Bkc) 100 Units/Ml SUB-Q 5 units TIDWM [facility] Administration Protocol Insulin Aspart 2 - 4 units 11/15/24 21:00 Insulin Aspart (*Bkc) 100 Units/Ml SUB-Q HS [facility] Protocol Insulin Aspart 5 units 11/15/24 12:00 11/15/24 11:42 Insulin Aspart (*Bkc) 100 Units/Ml 0.083 units/kg (5 units) 5 units SUB-Q Administration TIDWM [facility] Insulin Glargine 25 units 11/15/24 21:00 Insulin Glargine (*Bkc) 100 Units/Ml SUB-Q HS [facility] Ketorolac Tromethamine 30 mg 11/14/24 18:52 Ketorolac 30 Mg/Ml Vial (*Bkc) IV PUSH 11/19/24 18:51 Q6H PRN Pain Rated 4-6 Ondansetron HCl 4 mg 11/14/24 18:52 Ondansetron Inj 4 Mg/2 Ml Vial IV PUSH Q4H PRN Nausea Radiology Results: ITS Impressions Chest X-Ray 11/14/24 17:35 IMPRESSION: No acute cardiopulmonary process. Labs Labs: Laboratory Results - last 24 hr 11/14/24 11/14/24 11/14/24 12:51 13:39 14:36 WBC 8.9 RBC 4.66 Hgb 13.8 Hct 40.4 MCV 86.7 MCH 29.6 MCHC 34.2 RDW 12.2 Plt Count 298 MPV 9.2 Immature Gran % (Auto) 0.2 Neut % (Auto) 72.0 Lymph % (Auto) 19.6 [place] % (Auto) 7.3 Eos % (Auto) 0.6 Baso % (Auto) 0.3 Lymph # (Auto) 1.74 [place] # (Auto) 0.7 H Eos # (Auto) 0.1 Baso # (Auto) 0.0 Abs Immat Gran (auto) 0.02 Absolute Neuts (auto) 6.4 Absolute Nucleated RBC 0.000 Nucleated RBC % 0.0 Sodium 132 L Potassium 4.7 Chloride 100 Carbon Dioxide 21 L Anion Gap 11 BUN 17 Creatinine 0.60 L Estim Creat Clear Calc Not Reportable Estimated GFR > 60 Glucose 361 H POC Capillary Glucose 381 H Hemoglobin A1c Calcium 9.9 Phosphorus 4.3 Magnesium 1.8 Total Bilirubin 0.8 AST 22 ALT 13 Alkaline Phosphatase 110 Total Protein 8.0 Albumin 4.4 Beta-Hydroxybutyrate/Acetoacetate 2.28 H Urine Color Yellow Urine Appearance Cloudy H Urine pH 5.0 Ur Specific [place] 1.036 H Urine Protein Negative Urine Glucose (UA) 3+ H Urine Ketones 4+ H Ur Blood (Man) Negative Urine Nitrate Negative Urine Bilirubin Negative Urine Urobilinogen 0.2 Leukocyte Esterase Rfl Negative Urine RBC 3-5 H Urine WBC 0-5 Ur Squamous Epith Cells None seen Urine Bacteria None seen Urine Casts 0-2 POC Urine HCG, Qual Nasal MRSA (PCR) Influenza A (RT-PCR) Influenza B (RT-PCR) RSV (RT-PCR) SARS-CoV-2 RNA (RT-PCR) 11/14/24 11/14/24 11/14/24 17:26 17:47 18:42 WBC RBC Hgb Hct MCV MCH MCHC RDW Plt Count MPV Immature Gran % (Auto) Neut % (Auto) Lymph % (Auto) [place] % (Auto) Eos % (Auto) Baso % (Auto) Lymph # (Auto) [place] # (Auto) Eos # (Auto) Baso # (Auto) Abs Immat Gran (auto) Absolute Neuts (auto) Absolute Nucleated RBC Nucleated RBC % Sodium 132 L Potassium 4.3 Chloride 104 Carbon Dioxide 17 L Anion Gap 11 BUN 15 Creatinine 0.50 L Estim Creat Clear Calc Not Reportable Estimated GFR > 60 Glucose 286 H POC Capillary Glucose Hemoglobin A1c 8.0 H Calcium 9.3 Phosphorus 4.0 Magnesium 1.5 L Total Bilirubin AST ALT Alkaline Phosphatase Total Protein Albumin Beta-Hydroxybutyrate/Acetoacetate 2.38 H Urine Color Urine Appearance Urine pH Ur Specific [place] Urine Protein Urine Glucose (UA) Urine Ketones Ur Blood (Man) Urine Nitrate Urine Bilirubin Urine Urobilinogen Leukocyte Esterase Rfl Urine RBC Urine WBC Ur Squamous Epith Cells Urine Bacteria Urine Casts POC Urine HCG, Qual Negative Nasal MRSA (PCR) Influenza A (RT-PCR) Negative Influenza B (RT-PCR) Negative RSV (RT-PCR) Negative SARS-CoV-2 RNA (RT-PCR) Negative 11/14/24 11/14/24 11/14/24 20:18 21:29 22:01 WBC RBC Hgb Hct MCV MCH MCHC RDW Plt Count MPV Immature Gran % (Auto) Neut % (Auto) Lymph % (Auto) [place] % (Auto) Eos % (Auto) Baso % (Auto) Lymph # (Auto) [place] # (Auto) Eos # (Auto) Baso # (Auto) Abs Immat Gran (auto) Absolute Neuts (auto) Absolute Nucleated RBC Nucleated RBC % Sodium Potassium Chloride Carbon Dioxide Anion Gap BUN Creatinine Estim Creat Clear Calc Estimated GFR Glucose POC Capillary Glucose 231 H 155 H Hemoglobin A1c Calcium Phosphorus Magnesium Total Bilirubin AST ALT Alkaline Phosphatase Total Protein Albumin Beta-Hydroxybutyrate/Acetoacetate Urine Color Urine Appearance Urine pH Ur Specific [place] Urine Protein Urine Glucose (UA) Urine Ketones Ur Blood (Man) Urine Nitrate Urine Bilirubin Urine Urobilinogen Leukocyte Esterase Rfl Urine RBC Urine WBC Ur Squamous Epith Cells Urine Bacteria Urine Casts POC Urine HCG, Qual Nasal MRSA (PCR) Not detected Influenza A (RT-PCR) Influenza B (RT-PCR) RSV (RT-PCR) SARS-CoV-2 RNA (RT-PCR) 11/14/24 11/14/24 11/15/24 22:58 23:05 01:32 WBC RBC Hgb Hct MCV MCH MCHC RDW Plt Count MPV Immature Gran % (Auto) Neut % (Auto) Lymph % (Auto) [place] % (Auto) Eos % (Auto) Baso % (Auto) Lymph # (Auto) [place] # (Auto) Eos # (Auto) Baso # (Auto) Abs Immat Gran (auto) Absolute Neuts (auto) Absolute Nucleated RBC Nucleated RBC % Sodium 132 L Potassium 4.2 Chloride 104 Carbon Dioxide 21 L Anion Gap 7 BUN 13 Creatinine 0.50 L Estim Creat Clear Calc 140 Estimated GFR > 60 Glucose 141 H POC Capillary Glucose 133 H 249 H Hemoglobin A1c Calcium 9.1 Phosphorus Magnesium Total Bilirubin AST ALT Alkaline Phosphatase Total Protein Albumin Beta-Hydroxybutyrate/Acetoacetate Urine Color Urine Appearance Urine pH Ur Specific [place] Urine Protein Urine Glucose (UA) Urine Ketones Ur Blood (Man) Urine Nitrate Urine Bilirubin Urine Urobilinogen Leukocyte Esterase Rfl Urine RBC Urine WBC Ur Squamous Epith Cells Urine Bacteria Urine Casts POC Urine HCG, Qual Nasal MRSA (PCR) Influenza A (RT-PCR) Influenza B (RT-PCR) RSV (RT-PCR) SARS-CoV-2 RNA (RT-PCR) 11/15/24 11/15/24 11/15/24 04:17 07:52 09:42 WBC RBC Hgb Hct MCV MCH MCHC RDW Plt Count MPV Immature Gran % (Auto) Neut % (Auto) Lymph % (Auto) [place] % (Auto) Eos % (Auto) Baso % (Auto) Lymph # (Auto) [place] # (Auto) Eos # (Auto) Baso # (Auto) Abs Immat Gran (auto) Absolute Neuts (auto) Absolute Nucleated RBC Nucleated RBC % Sodium 129 L Potassium 4.5 Chloride 103 Carbon Dioxide 24 Anion Gap 2 L BUN 13 Creatinine 0.70 Estim Creat Clear Calc 91 Estimated GFR > 60 Glucose 341 H POC Capillary Glucose 277 H 352 H Hemoglobin A1c Calcium 8.5 Phosphorus Magnesium 3.2 H Total Bilirubin AST ALT Alkaline Phosphatase Total Protein Albumin Beta-Hydroxybutyrate/Acetoacetate Urine Color Urine Appearance Urine pH Ur Specific [place] Urine Protein Urine Glucose (UA) Urine Ketones Ur Blood (Man) Urine Nitrate Urine Bilirubin Urine Urobilinogen Leukocyte Esterase Rfl Urine RBC Urine WBC Ur Squamous Epith Cells Urine Bacteria Urine Casts POC Urine HCG, Qual Nasal MRSA (PCR) Influenza A (RT-PCR) Influenza B (RT-PCR) RSV (RT-PCR) SARS-CoV-2 RNA (RT-PCR) 11/15/24 11:38 WBC RBC Hgb Hct MCV MCH MCHC RDW Plt Count MPV Immature Gran % (Auto) Neut % (Auto) Lymph % (Auto) [place] % (Auto) Eos % (Auto) Baso % (Auto) Lymph # (Auto) [place] # (Auto) Eos # (Auto) Baso # (Auto) Abs Immat Gran (auto) Absolute Neuts (auto) Absolute Nucleated RBC Nucleated RBC % Sodium Potassium Chloride Carbon Dioxide Anion Gap BUN Creatinine Estim Creat Clear Calc Estimated GFR Glucose POC Capillary Glucose 292 H Hemoglobin A1c Calcium Phosphorus Magnesium Total Bilirubin AST ALT Alkaline Phosphatase Total Protein Albumin Beta-Hydroxybutyrate/Acetoacetate Urine Color Urine Appearance Urine pH Ur Specific [place] Urine Protein Urine Glucose (UA) Urine Ketones Ur Blood (Man) Urine Nitrate Urine Bilirubin Urine Urobilinogen Leukocyte Esterase Rfl Urine RBC Urine WBC Ur Squamous Epith Cells Urine Bacteria Urine Casts POC Urine HCG, Qual Nasal MRSA (PCR) Influenza A (RT-PCR) Influenza B (RT-PCR) RSV (RT-PCR) SARS-CoV-2 RNA (RT-PCR)
[2024-11-15 15:49] LABS: Glucose Point of Care 236 mg/dl (65-105)
[2024-11-15 19:51] LABS: Glucose Point of Care 133 mg/dl (65-105)
[2024-11-15] MEDS: INSULIN GLARGINE (*BKC) 100 UNITS/ML 25 UNITS SUB-Q (20:34)
[2024-11-16 03:02] LABS: Glucose Point of Care 219 mg/dl (65-105)
[2024-11-16 03:40] LABS: Glucose Point of Care 82 mg/dl (65-105)
[2024-11-16 05:57] VITALS: BP 125/82; PULSE 72; RESP 14; TEMP 37; O2SAT 99
[2024-11-16 06:32] LABS: Basophils Percent Auto 0.5 % (0.2-1.2); Eosinophils Absolute Auto 0.1 K/mm3 (0-0.3); Eosinophils Percent Auto 2.3 % (0-4.4); Hematocrit 31.4 % (37.0-47.0); Hemoglobin 10.7 g/dL (12.0-15.0); Immature Granulocyte Absolute 0.01 K/mm3 (0.00-0.031); Immature Granulocyte Percent A 0.2 % (0-0.5); Lymphocytes Absolute Auto 3.69 K/mm3 (0.9-3.2); Lymphocytes Percent Auto 61.3 % (18.3-44.2); Mean Corpuscular HGB Conc 34.1 g/dl (32-36); Mean Corpuscular Hemoglobin 29.5 pg (26-34); Mean Corpuscular Volume 86.5 fl (80-100); Mean Platelet Volume 9.3 fl (7.4-10.4); Monocytes Absolute Auto 0.5 K/mm3 (0.1-0.6); Neutrophils Absolute Auto 1.7 K/mm3 (1.3-6.7); Neutrophils Percent Auto 27.7 % (45.5-73.1); Platelet Count Result 232 k/mm3 (150-375); Red Blood Count 3.63 M/mm3 (4.2-5.4); Red Cell Distribution Width 12.4 % (11.5-14.5)
[2024-11-16 06:42] LABS: Alanine Aminotransferase 11 U/L (6-35); Albumin Level 3.3 g/dL (3.5-5.1); Alkaline Phosphatase 63 U/L (38-126); Anion Gap 0 mmol/L (4-12); Aspartate Amino Transferase 23 U/L (14-36); Bilirubin,Total 0.4 mg/dL (0.2-1.3); Blood Urea Nitrogen 8 mg/dL (7-17); Calcium 8.5 mg/dL (8.4-10.2); Carbon Dioxide 29 mmol/L (22-30); Chloride 107 mmol/L (98-107); Estimated CRCL calculation 124 ml/min; Estimated Glomerular Filt Rate > 60; Glucose 122 mg/dL (65-110); Magnesium 1.9 mg/dL (1.6-2.3); Potassium 3.5 mmol/L (3.4-5.0); Sodium 136 mmol/L (137-145)
[2024-11-16 07:30] LABS: Glucose Point of Care 108 mg/dl (65-105)
[2024-11-16 08:23] LABS: Iron 64 ug/dL (37-170)
[2024-11-16 08:32] LABS: Percent Iron Saturation 21 % (20-50); TOTAL IRON BINDING CAPACITY 309 ug/dL (261-462)
[2024-11-16] MEDS: ENOXAPARIN 40 MG/0.4 ML SYRINGE SUB-Q (08:33)
--- NOTE | 2024-11-16 10:53 | PM.DS ---
DS: Admitting Diagnosis Discharge Date 11/15/24 Admitting Diagnosis Nausea and vomiting DS: Discharge Diagnosis Discharge Diagnosis (1) Diabetic ketoacidosis without coma: Code(s): E11.10 - Type 2 diabetes mellitus with ketoacidosis without coma Status: Acute DS: Summary Hospital Course Hospital Course: This is a 19-year-old female with past medical history significant for type 1 diabetes mellitus, patient recently was started on insulin pump. Had abnormal reading blood glucose at 300 and 400 according to monitor + comes to the emergency room due to nausea and vomiting. Preliminary workup was significant for elevated beta hydroxybutyrate. Patient tested negative for COVID RSV influenza type A and influenza type B. patient has been admitted for further evaluation management and treatment. Patient was managed with insulin infusion and iV fluids, dKA resolved. Patient was discharged home on her subcute insulin regimen which was managing her diabetes very well until she started insulin pump. Patient will continue follow up with PCP in 3-5 days Time Spent with Patient Time attestation: Total time spent providing and/or coordinating discharge services: DS: Data Data Completed and Pending Labs on day of discharge: Labs from last 24 hours 11/16/24 11/16/24 11/16/24 07:24 05:53 03:30 WBC 6.0 RBC 3.63 L Hgb 10.7 L D Hct 31.4 L MCV 86.5 MCH 29.5 MCHC 34.1 RDW 12.4 Plt Count 232 MPV 9.3 Immature Gran % (Auto) 0.2 Neut % (Auto) 27.7 L Lymph % (Auto) 61.3 H [place] % (Auto) 8.0 Eos % (Auto) 2.3 Baso % (Auto) 0.5 Lymph # (Auto) 3.69 H [place] # (Auto) 0.5 Eos # (Auto) 0.1 Baso # (Auto) 0.0 Abs Immat Gran (auto) 0.01 Absolute Neuts (auto) 1.7 Absolute Nucleated RBC 0.000 Nucleated RBC % 0.0 Sodium 136 L Potassium 3.5 Chloride 107 Carbon Dioxide 29 Anion Gap 0 L BUN 8 D Creatinine 0.50 L Estim Creat Clear Calc 124 Estimated GFR > 60 Glucose 122 H POC Capillary Glucose 108 H 82 Calcium 8.5 Magnesium 1.9 Iron 64 TIBC 309 % Saturation 21 Ferritin 51.70 Total Bilirubin 0.4 AST 23 ALT 11 Alkaline Phosphatase 63 Total Protein 6.0 L Albumin 3.3 L 11/15/24 11/15/24 11/15/24 20:39 19:11 15:46 WBC RBC Hgb Hct MCV MCH MCHC RDW Plt Count MPV Immature Gran % (Auto) Neut % (Auto) Lymph % (Auto) [place] % (Auto) Eos % (Auto) Baso % (Auto) Lymph # (Auto) [place] # (Auto) Eos # (Auto) Baso # (Auto) Abs Immat Gran (auto) Absolute Neuts (auto) Absolute Nucleated RBC Nucleated RBC % Sodium Potassium Chloride Carbon Dioxide Anion Gap BUN Creatinine Estim Creat Clear Calc Estimated GFR Glucose POC Capillary Glucose 219 H 133 H 236 H Calcium Magnesium Iron TIBC % Saturation Ferritin Total Bilirubin AST ALT Alkaline Phosphatase Total Protein Albumin 11/15/24 11:38 WBC RBC Hgb Hct MCV MCH MCHC RDW Plt Count MPV Immature Gran % (Auto) Neut % (Auto) Lymph % (Auto) [place] % (Auto) Eos % (Auto) Baso % (Auto) Lymph # (Auto) [place] # (Auto) Eos # (Auto) Baso # (Auto) Abs Immat Gran (auto) Absolute Neuts (auto) Absolute Nucleated RBC Nucleated RBC % Sodium Potassium Chloride Carbon Dioxide Anion Gap BUN Creatinine Estim Creat Clear Calc Estimated GFR Glucose POC Capillary Glucose 292 H Calcium Magnesium Iron TIBC % Saturation Ferritin Total Bilirubin AST ALT Alkaline Phosphatase Total Protein Albumin Discharge Plan Discharge Attending physician on discharge: Jaydon Carpenter Consulting providers: Nichol Cherry Discharging Clinician: Jaydon Carpenter Anticipated Discharge Date/Time: 11/16/24 10:49 Patient Disposition: Home, Self-Care Activity: as tolerated Diet: diabetic Discharge Instructions: DKA Patient Instructions: Antibiotic Form, Diabetic Ketoacidosis (GEN), Basic Carbohydrate Counting (DC) Patient Language: Russian Stand Alone Forms: General Discharge Information Follow-up/Referrals: UNKNOWN,DOCTOR [Primary Care Provider] - (F/u with PCP in 3-5 days) Discharge Medications: Continued (DME) Dexcom G6 Sensor Device MISCELLANEOUS (DME) Dexcom G6 Transmitter Device MISCELLANEOUS (DME) Omnipod 5 G6-G7 Pods (Gen 5) Cartridge SUBCUT (DME) Omnipod 5 G6-G7 Intro Kt(Gen5) Cartridge SUBCUT Date of admission: 11/14/24 18:52 Primary Care Provider: UNKNOWN,DOCTOR Admitting Provider: Romaine Freeman Attending physician on admission: Romaine Freeman Condition: Stable
[2024-11-16] MEDS: INSULIN ASPART (*BKC) 100 UNITS/ML SUB-Q ×2 (11:09)
[2024-11-16 11:21] LABS: Glucose Point of Care 230 mg/dl (65-105)
--- OUTSIDE RECORDS SUMMARY | 2024-11-22 05:17 | XMS_ITS | Referral Summary ---
Author Organization [facility] Address [address] [place] [address] Care Team Providers Care Data Warehouse Consultant Name Role Phone Alvarez Prabhakar MD Primary Care Provider [phone] [facility],non-owned Affiliates and Associated Physician Practices is amultiple site organization consisting of ambulatory clinics and hospital sitesin [place], [place], [place] and [place]. This disclosure is being madepursuant to the Care Everywhere program and may not contain all information available regarding this patient. Last updated 18.[facility] Encounters Date Type Department Care Team Description 11/11/2024 Telephone [facility] - Diabetes [facility] [address] [place] [address] Manasa Flores, DO General 11/11/2024 Refill [facility] - Diabetes [facility] [address] [place] [address] Brendan Zafar MD Refill Request from Last 3 Months Allergies No known active allergies Medications * Be aware that medications may not be up to date on this document. Alwaysverify current medications with the patient. Medication Sig Dispensed Refills Start Date End Date Status Blood Glucose Monitoring Suppl (ACCU-CHEK DRAKE SMARTVIEW) W/DEVICE KIT kitIndications:Nahed betes mellitus type 1 (HCC) Use for blood glucose monitoring. 1 Kit 0 08/18/2012 Active acetone,urine, (KETOSTIX) stripIndications:T ype 1 diabetes mellitus without complication (HCC) Use as directed for urine ketone checks if blood sugar above 250 or if ill. Dispense one bottle for school and one for home. 100 strip 3 04/12/2018 Active injection device-insulin (NOVOPEN ECHO) deviceIndications: Type 1 diabetes mellitus without complication (HCC) Use for insulin delivery. 1 device 1 10/20/2018 Active glucagon (GLUCAGON EMERGENCY) injectionIndicatio ns:Type 1 diabetes mellitus without complication (HCC) Inject 1 mg into muscle as directed for severe low blood sugar reaction. 2 kit 07/11/2019 Active Blood Glucose Monitoring Suppl ([employer] VERIO IQ SYSTEM) w/Device KIT Use 1 kit as directed 2 kit 12/16/2019 Active insulin syringe-needle (BD ULTRAFINE II) 31G X 5/16 0.3 ML syringe USE FOR INJECTION DAILY 100 Each 04/17/2020 Active Insulin Syringe-Needle U-100 (SAFESNAP INSULIN SYRINGE) 30G X 5/16 0.5 ML MISC Use 1 syringe as directed 50 Each 5 03/11/2021 Active oxybutynin CR 24hr (DITROPAN-XL) 10 MG tablet Take 1 (one) tablet by mouth at bedtime 30 tablet 11 06/20/2021 Active Accu-Chek FastClix LancetsIndications :Type 1 diabetes mellitus without complication (HCC) Use for blood glucose monitoring 4-6 times/day. 200 Each 11 05/22/2023 Active Continuous Blood Gluc Network Support Analyst (Dexcom G6 Network Support Analyst) DEVIIndications:Ty pe 1 diabetes mellitus without complication (HCC) Use 1 Each as directed 1 Each 06/09/2023 Active acetone,urine, (Ketostix) stripIndications:T ype 1 diabetes mellitus without complication (HCC) Use as needed (use when blood sugar is greater than 250 or when ill. ) 100 strip 4 08/03/2023 Active Insulin Pen Needle (BD Pen Needle Drake U/F) 32G X 4 MM MISCIndications:Ty pe 1 diabetes mellitus without complication (HCC) Use 4-6 Each once daily 200 Each 08/03/2023 Active OneTouch Delica Lancets 33G MISCIndications:Ty pe 1 diabetes mellitus without complication (HCC) Use 1 Each as directed 200 Each 3 08/03/2023 Active Lantus SoloStar pen INJECT 18 UNITS UNDER SKIN ONCE NIGHTLY 15 mL 5 08/19/2023 Active insulin lispro (HumaLOG KwikPen) 100 UNIT/ML penIndications:Typ e 1 diabetes mellitus without complication (HCC) INJECT 1 UNIT FOR EVERY 7 CARBOHYDRATES, WITH A MAX OF 40 UNITS PER DAY. 45 mL 1 11/06/2023 Active Glucagon (Baqsimi Two Pack) 3 MG/DOSE POWD [place] 3 mg into the nose as needed (adminsiter as directed for severe low blood sugar) 1 Each 11/09/2023 Active blood glucose (OneTouch Verio) test stripIndications:T ype 1 diabetes mellitus without complication (HCC) Use to test blood sugar 1-2 times per day while on Dexcom 100 strip 5 12/04/2023 Active Continuous Blood Gluc Sensor (Dexcom G6 Sensor) MISCIndications:Ty pe 1 diabetes mellitus without complication (HCC) Inject 1 Each subcutaneously every 10 days 3 Each 5 12/04/2023 Active Continuous Blood Gluc Transmit (Dexcom G6 Transmitter) MISCIndications:Ty pe 1 diabetes mellitus without complication (HCC) Use 1 Each Every 90 days 1 Each 2 12/04/2023 Active Active Problems Problem Noted Date Diagnosed Date Hyperglycemia 08/01/2023 Ganglion cyst of finger of left hand 04/15/2022 Bladder dysfunction 11/22/2020 Assessment & Plan (07/02/2021 4:55 PM CDT): A&P - bladder and bowel dysfunction and nocturnal enuresis. Anaid has improved since her last office visit. She does however, find that her symptoms recur when she does not take Ditropan regularly. Additionally, she reports recurrence in genital itching that previously resolved with course of Diflucan - to repeat empiric treatment. She would likely have less yeast infections and resolution in nocturnal enuresis if her blood sugar was in better control. RBUS is normal today. Exam is grossly baseline. Continued follow up annually if there is a continued need for Ditropan. Plan: Urinary recommendations including: voiding posture and relaxation techniques, bladder dietary and fluid intake recommendations, hygiene recommendations and Pharmaceutical management: Change standard ditropan to Ditropan XL and course of diflucan Assessment & Plan (11/22/2020 4:14 PM CLOTH FINISHING RANGE OPERATOR CHIEF): - bladder and bowel dysfunction and nocturnal enuresis. Anaid has primary nocturnal enuresis. She also has urinary frequency and is unable to successfully hold urine for more than 1-2 hours without discomfort. She has frequent episodes of genital irritation and itching that is likely related to candidiasis. Exam demonstrates some erythema to her introitus. To start Ditropan TID to see if improving her daytime urinary frequency. To have patient follow up with a RBUS in the coming weeks or sooner with additional testing. Plan: Void every 2 hours, double void; girls should sit with their legs spread in wide V-shape, and with their feet on the floor or a stool. She may also straddle the toilet backwards. Urinary and bowel limitations and recommendations School letter Wiggle and wick -- girls who leak should wipe front to back. Take another piece of toilet paper, hold it against her private area, stand up and wiggle a little or jump. This will catch any drops of urine that may be caught in her private area. Parent to call office in one month with an update, or sooner with concerns. Ditropan TID RBUS to be scheduled To consider Uroflow with EMG Type 1 diabetes mellitus without complication Overview (09/29/2012): Diagnosed 08/17/2012 Assessment & Plan (03/12/2021 5:41 PM CDT): Type 1 diabetes mellitus, 8-1/2 years duration, good, improved glycemic control; advise: decrease Lantus to 29 u daily, Dexcom G6 daily, RTC 2-3 months (confirm provider's covered by new insurance carrier); RD visit today Dexcom G6 daily No missed insulin injections Use correction at meal times if you skip a meal Lantus 29 units at 10 p.m. Novolog/humalo unit per 10 g carb at meals/snacks [give insulin injections prior to meals/snacks] Mealtime correction: 1 unit Novolog/Humalog for every 40 mg/dL over 150 mg/dL. Anaid Whitaker's home target blood glucose range: 70-150 mg/dL Target blood glucose levels for children with type I diabetes mellitus Under age 4 yr: 100-200 mg/dL Age 4-7 yr: 80-180 mg/dL Over age 7 yr: 80-150 mg/dL Insulin injections given by: self Insulin injection sites: abdominal wall, arm(s), thigh(s) Avoid giving insulin injections in the arm(s) - lipohypertrophied areas Carbohydrate counting meal planning (gluten free no) Avoid/minimize between meal snacking without taking insulin. Per the [place] [employer] practice guidelines [Diabetes Care 2015 38 (suppl 1): S1-S94], people with type 1 diabetes mellitus on multiple-dose insulin or insulin pump therapy should perform SMBG prior to meals and snacks, occasionally post-prandial, at bedtime, prior to exercise, when they suspect low blood glucose, after treating low blood glucose until they are normoglycemic, and prior to critical tasks such as driving. Record home blood glucose records in a logbook and bring this logbook to each office visit. Obtain and wear medic alert identification at all times. Maintain current weight:: Yes Schedule appointment for annual eye exam: no; Last eye exam: October 2020 Return appointment in 3 months Assessment & Plan (11/22/2020 10:33 AM CLOTH FINISHING RANGE OPERATOR CHIEF): 1) no changes today 2) keep up the great work 3) return in 3 months for Getachew 4) call once you receive your dexcom, or if you don't receive in a couple of weeks Assessment & Plan (09/20/2020 10:44 AM CDT): 1) adults to witness blood sugar checks at least 4 times daily 7am, noon, 5pm, 10 pm 2) adults to double check insulin doses and witness injection pre-meal 3) Always witness lantus injection at bedtime 4) Change humalog at meals to 1 unit per 10grams of carbs 5) correction dose 1 per 40 over 150 151-190 1 191-230 2 231-270 3 271-310 4 311-350 5 351-390 6 Over 391 7 6) increase lantus to 30 units 7) I will work on ordering her dexcom sensor 8) call when you receive your sensor 9) Urology referral for enuresis 10) return in 2 months for Getachew Assessment & Plan (06/24/2016 12:51 PM CDT): 1) increase lantus to 10 units 2) increase humalog to 1 unit per 20 grams carb 3) call as needed to review blood sugars 4) return in Aug for Dr. Olivas Assessment & Plan (03/10/2016 3:06 PM CDT): 1) increase lantus to 7.5 units 2) increase Humalog to 0.5/15 3) supervise as much as possible 4) call in blood sugars on Thursday 5) return in 3 months for Getachew, [address] Olivas Assessment & Plan (09/05/2015 8:12 AM CDT): 1) NO changes at this time 2) keep up the good work 3) fax pump tests when ready to start pump therapy 4) return in nov for Dr. Olivas Assessment & Plan (05/29/2015 3:14 PM CDT): 1) no changes at this time 2) Return in 3 months for Getachew, [address] Olivas 3) call as needed to review blood sugars 4) Lantus is to be given daily under all circumstances. No situation exists where Lantus should be skipped. Assessment & Plan (02/12/2015 1:27 PM CDT): 1) increase breakfast and lunch to 0.5/20 2) increase Lantus to 5 units 3) check blood sugar at 2 am for two nights and call if low 4) increase correction dose to 201-250 0.5, 251-300 1, 301-350 1.5, 351-400 2, over 401 2.5 5) call in blood sugars on Thursday 6) return in 3 months for Getachew Resolved Problems Problem Noted Date Diagnosed Date Resolved Date Diabetic ketoacidosis withou t coma associated with type 1 diabetes mellitus 12/10/2022 08/02/2023 Assessment & Plan (08/01/2023 1:03 PM CDT): Assessment: 17 years old with ten-year history of type one diabetes presenting to [facility] with polyuria, polydipsia, nausea, vomiting, in DKA after missing two nighttime basal insulin doses. Acidotic (pH 7.16, HCO3 12.5, anion gap 23) and hyperglycemic (>300) with moderate ketonuria on arrival. Tired-appearing but stable with regular respirations. Admitted for IV fluids and insulin drip. Plan: - Admit to Endocrine / Purple team, attending Dr. Olivas - Insulin drip @ 0.1 units / kg / hr - 2-bag IVF protocol: - Body surface area is 1.48 meters squared - 3 L / meters squared / 24 hours: ~185 mL / hr - 1/2 NS + 20 mEq KPhosphate + 20 mEq KAcetate @ 92 mL/hr - D10 1/2 NS + 20 mEq KPhosphate + 20 mEq KAcetate @ 92 mL/hr - Q 1 hour glucose checks - Urinary ketones Qvoid until negative x 2 - SW / Nutrition / Diabetes education if warranted FEN/GI: - NPO until anion gap closed - Strict I/O - Carbohydrate counting with home correction once advanced diet CV/RESP: - VS Q2 hours - Continuous pulse oximetry NEURO: - Q2 neuro checks LABS: - Urinary ketones qvoid until negative x 2 - BMP Q4 hours until gap closes - Q1 hour glucose checks ?? Assessment & Plan (12/10/2022 10:10 PM CLOTH FINISHING RANGE OPERATOR CHIEF): Assessment: Anaid is a 17y/o with Type 1 diabetes, who presents in DKA with nausea and vomiting that started yesterday. Recently seen in Endocrinology clinic with some changes made to her insuline management. This episode is likely due to unclear management of her insulin/carb ratio and correction as noted in previous clinic notes. Clinically improving after starting insulin drip. Plan: - Admit to endocrinology service, Dr. Munguia - Insulin drip at 0.1 units/kg/hr - 1/2NS and D10% 1/2 NS to maintain blood glucose levels with total fluid volume of 160 ml/hr (2.5L/m2) - BMP q 4 hours - Glucose checks q hour - Wean insulin and fluids per DKA protocol - Q 4 hour neuro checks - Urine ketones q void until negative Diabetic ketoacidosis withou t coma associated with type 1 diabetes mellitus 03/03/2021 07/08/2021 Assessment & Plan (03/04/2021 7:06 AM CDT): Assessment: Anaid Whitaker is a 15 year old female with type 1 diabetes mellitus with history of non-compliance who presents to the PICU in DKA. Her anion gap has closed and she was transitioned to her home subcutaneous insulin regimen. She is stable for transfer to the endocrinology service. Plan: - Transfer to endocrinology, Dr. Zafar Respiratory: - Monitor respiratory status - Pulse oximetry Cardiac: - Normotensive, monitor clinically - Vitals q8h FEN/GI: - Carb counting diet - IVFs with total hourly fluid rate 195ml/hr - Strict I/Os - Daily weights Endo: - Discontinue insulin drip/two-bag system - Lantus 30 units nightly - Lantus 15 units once this morning while transitioning off drip - Humalog 1unit: 10 g carbohydrate at meals and SSI: 1 unit if glucose for every 50 over 150 in blood glucose - Carb counting diet - Bedside glucose 5x daily prior meal, qHS, and 0200 - If >365 then obtain STAT lab glucose - If <70, immediately give 4 oz juice/soda or 8 oz milk. Recheck glucose 15 minutes later and if still decreased then repeat. - If < 70 and patient is unresponsive or seizing. Give glucagon 1 mg IM PRN. - VS 5x/day before meals, qHS and 0200 with glucose checks per diabetes orders - Daily weights ID: - Monitor for fevers or signs of infection Neuro/Pain: - Tylenol q4h PRN Activity: - PT/OT Social: - Consults to vegetable ii farmworker, nutrition, outreach and education social worker Labs: Per endocrine team Access: PIV Assessment & Plan (03/03/2021 12:10 PM CDT): Assessment: Anaid Whitaker is a 15 year old female with type 1 diabetes mellitus with history of non-compliance who presents to the PICU in DKA. She requires close monitoring due to risk for decompensation due to the degree of her anion gap metabolic acidosis. Plan: Respiratory: Kussmaul breathing on admission - Monitor respiratory status - Cardiorespiratory monitoring - Pulse oximetry Cardiac: Tachycardic, will likely improve as dehydration improves - Normotensive, monitor clinically - Vitals q1h FEN/GI: - NPO - IVFs with total hourly fluid rate 195ml/hr - Strict I/Os - Daily weights Endo: Correct DKA with insulin drip and two-bag system - Consult endocrinology - Insulin drip at 0.1 units/kg/hr - NS and D10% NS to maintain blood glucose levels with total fluid volume of 195 ml/hr - Hourly glucose cheks - Wean fluids and insulin per DKA protocol ID: - Monitor for fevers or signs of infection Neuro/Pain: Monitor for acute mental status changes due to risk of cerebral edema while correcting DKA - Tylenol q4h PRN - Neuro checks q1h Activity: - PT/OT Social: - Consults to vegetable ii farmworker, nutrition, outreach and education social worker Labs: Hourly glucoses, BMP/Ph q4h alternating with VBG + lytes q4h, urine qvoid, CK once Access: PIV Immunizations Name Administration Dates Next Due [employer] primary monoval ent 12+ yr 0.3mL Purple cap 02/26/2021 INFLUENZA 10/27/2013,08/18/2012 INFLUENZA VACCINE, QUADR. (F LUZONE; FLULAVAL; FLUARIX; AFLURIA QUADRIVALENT; 6MO+), 0.5 ML (IIV4) 08/31/2023,09/19/2020,09/09/2016, 015 Social History Tobacco Use Types Packs/Day Years Used Date Smoking Tobacco: Never Passive Smoke Exposure: Never Smokeless Tobacco: Never Tobacco Cessation:Counseling Given: Not Answered Alcohol Use Standard Drinks/Week Comments Never 0 (1 standard drink = 0.6 oz pur e alcohol) AUDIT-C Answer Date Recorded Q1: How often do you have a drink containing alcohol? Never 08/01/2023 Q2: How many drinks containi ng alcohol do you have on a typical day when you are drinking? Patient does not drink Frequency of Binge Drinking Not on file 07/2023 Sex and Gender Information Value Date Recorded Sex Assigned at Not on file Gender Identity Not on file Sexual Orientation Not on file Last Filed Vital Signs Vital Sign Reading Time Taken Comments Blood Pressure 108/64 08/31/2023 10:54 AM CDT Pulse 104 08/02/2023 8:56 AM CDT Temperature 37.6 ??C (99.7 ??F) 08/02/2023 8:56 AM CD T Respiratory Rate 16 08/02/2023 8:56 AM CDT Oxygen Saturation 95% 08/02/2023 8:56 AM CDT Inhaled Oxygen Concentration - - Weight 52.4 kg (115 lb 8.3 oz) 08/31/2023 10:54 AM CDT Height 159.6 cm (5' 2.84 ) 08/31/2023 10:54 AM C DT Body Mass Index 20.57 08/31/2023 10:54 AM CDT Functional Status Functional Status Response Date of Assess ment Is person deaf or have serious hearing difficult y? No 08/01/2023 Is person blind or have serious difficulty seein g? No 08/01/2023 Does person have serious dif ficulty walking/climbing stairs? No 08/01/2023 Does person have difficulty dressing/bathing? No 08/01/2023 Does person have difficulty doing errands alone? No 08/01/2023 Cognitive Status Response Date of Assessm ent Does person have difficulty concentrating/remembering/making decisions? No 08/01/2023 Plan of Treatment Not on file Procedures Procedure Name Priority Date/Time Associated Diagnosis Comments HEMOGLOBIN A1C - POCT INTERFACED Routine 08/31/2023 10:53 AM CDT BASIC METABOLIC PANEL (CALCIUM TOTAL) Timed 08/02/2023 3:47 AM CDT MICROALB/CREAT RATIO URINE RANDOM PANEL Routine 05/18/2023 9:36 AM CDT Type 1 diabetes mellitus without complication (HCC) from Last 3 Months or Most Recently Relevant to Health Maintenance Results * (ABNORMAL) HEMOGLOBIN A1C - POCT INTERFACED (08/31/2023 10:53 AM CDT) Hemoglobin A1C POCT 7.2(H) <5.7 % 08/31/2023 11:00 AM CDT [facility] Estimated Average Glucose 160 mg/dL 08/31/2023 11:00 AM CDT [facility] Blood BLOOD SPECIMEN / Unknown 08/31/2023 10:53 AM CDT 08/31/2023 11:00 AM CDT Narrative [facility] - 08/31/2023 11:00 AM CDT HbA1c Interpretation: Normal: < 5.7% Pre-diabetes: 5.7-6.4% Diabetes: Equal to or greater than 6.5% This test should only be used to monitor, not diagnose diabetes. ??Test results diagnostic of diabetes should be repeated by another method with a different assay principle for confirmation. Treatment target values recommended by ADA and other clinical organizations should be used to evaluate metabolic control in patients. Patients with a hemoglobin of <7 or >24 should not be tested using this method. ??Patients known to have these conditions should be assayed by a test employing a different assay principle. ?? Glycated hemoglobin F is not measured by the DCA HbA1c assay. ??At very high levels of hemoglobin F (> 10%), HbA1c is lower than expected. ??Patients with HbS or HbE should not be tested using this device. ??HbS or HbE cause a higher result than expected. ??Conditions such as hemolytic anemia, polycythemia, homozygous and HbC, can result in decreased life span of the red blood cells, which causes HbA1c results to be lower than expected. The Siemens DCA assay for the measurement of HbA1c is a National Glycohemoglobin Standardization Program (NGSP) certified method. Breana Olivas MD LAB - POINT OF CARE ORDERABLES Performing Organization Address City/State/[facility] Co de Phone Number [facility] [address] [place], [place] [id number] * (ABNORMAL) BASIC METABOLIC PANEL (CALCIUM TOTAL) (08/02/2023 3:47 AM CDT) BUN 13 7 - 26 mg/dL 08/02/2023 4:25 AM T [facility] Creatinine 0.66 0.56 - 0.96 mg/dL 08/02/2023 4:25 AM [facility] Sodium 133(L) 136 - 145 mmol/L 08/02/2023 4:25 AM [facility] Potassium 3.9 3.5 - 4.5 mmol/L 08/02/2023 4:25 AM [facility] Chloride 105 98 - 107 mmol/L 08/02/2023 4:25 AM [facility] CO2 22 22 - 29 mmol/L 08/02/2023 4:25 AM [facility] Glucose 289(H) 70 - 115 mg/dL 08/02/2023 4:25 AM [facility] Calcium 8.9 8.4 - 10.2 mg/dL 08/02/2023 4:25 AM [facility] Anion Gap 6 6 - 16 08/02/2023 4:25 AM [facility] BUN/Creatinine Ratio 20 7 - 23 08/02/2023 4:25 AM [facility] Osmolality Calculated 287 270 - 300 mOsm/kg 08/02/2023 4:25 AM [facility] eGFR by CKD-EPI >90 >=90 mL/min/1.7 3 m2 08/02/2023 4:25 AM [facility] Blood BLOOD SPECIMEN / Unknown Lab Venipuncture / Unknown 08/02/2023 3:47 AM CDT 08/02/2023 3:58 AM CDT Breana Olivas MD [facility] Organization Address City/State/ZIP Co de Phone Number [facility] [address] [place] [phone], [facility] [phone] * MICROALB/CREAT RATIO URINE RANDOM PANEL (05/18/2023 9:36 AM CDT) Albumin Random Urine 10.2 Not Established ug/mL 05/18/2023 10:51 AM [facility] Creatinine Urine 188 Not Established mg/dL 05/18/2023 10:51 AM [facility] Urine Albumin/Creati nine Ratio 5 <30 mg/g 05/18/2023 10:51 AM [facility] Urine URINE SPECIMEN OBTAINED BY CLEAN CATCH PROCEDURE / Unknown Collection / Unknown 05/18/2023 9:36 AM CDT 05/18/2023 10:28 AM CDT Breana Olivas MD LAB - URINE CHEMISTR Y ORDERABLES [facility] [address] [place] [address], [facility] [phone] from Last 3 Months or Most Recently Relevant to Health Maintenance Advance Directives * Full Code (Latest Code Status on File) Date Activated Date Inactivated Comments 08/01/2023 12:50 PM 08/02/2023 11:27 AM * Full Code Date Activated Date Inactivated Comments 12/10/2022 6:34 PM 12/11/2022 4:33 PM * Full Code Date Activated Date Inactivated Comments 03/03/2021 11:41 AM 03/04/2021 8:29 PM Care Teams Data Warehouse Consultant Relationship Specialty Start Date End Date Alvarez Prabhakar MD [address] [place] [address] PCP - General 12/12/11
--- OUTSIDE RECORDS SUMMARY | 2024-11-22 05:17 | XMS_ITS | Clinical Summary ---
Author Organization [facility] Address [address] [place] [address] Care Team Providers Care Sr. Manager Marketing Name Role Phone Alvarez Prabhakar MD Primary Care Provider [phone] Source Comments [facility],non-owned Affiliates and Associated Physician Practices is amultiple site organization consisting of ambulatory clinics and hospital sitesin [place], [place], [place] and [place]. This disclosure is being madepursuant to the Care Everywhere program and may not contain all information available regarding this patient. Last updated 18.[facility] Worklight Allergies No known active allergies Medications * [...] kit 07/11/2019 Active Blood Glucose Monitoring Suppl ([employer] VERIO IQ SYSTEM) w/Device KIT Use 1 [...] Each 11 05/22/2023 Active Continuous Blood Gluc Benzene Washer (Dexcom G6 Benzene Washer) DEVIIndications:Ty pe 1 diabetes mellitus without complication [...] Use 4-6 Each once daily 200 Each 11 08/03/2023 Active OneTouch Delica Lancets 33G MISCIndications:Ty [...] Glucagon (Baqsimi Two Pack) 3 MG/DOSE POWD Lincoln 3 mg into the nose as needed [...] diflucan Assessment & Plan (11/22/2020 4:14 PM PER DIEM RN): - bladder and bowel dysfunction and nocturnal [...] meal snacking without taking insulin. Per the [employer] practice guidelines [Diabetes Care 2015 [...] months Assessment & Plan (11/22/2020 10:33 AM PER DIEM RN): 1) no changes today 2) keep up [...] history of type one diabetes presenting to ED with polyuria, polydipsia, nausea, vomiting, in DKA [...] ?? Assessment & Plan (12/10/2022 10:10 PM PER DIEM RN): Assessment: Anaid is a 17y/o with Type [...] Activity: - PT/OT Social: - Consults to visual educator, nutrition, social studies department chair Labs: Per endocrine team Access: PIV Assessment [...] Activity: - PT/OT Social: - Consults to visual educator, nutrition, social studies department chair Labs: Hourly glucoses, BMP/Ph q4h alternating with VBG + lytes q4h, urine qvoid, CK once Access: PIV Encounters Date Type Department Care Team Description 11/11/2024 Telephone [facility] - Diabetes [address] [address] Manasa Flores, DO General 11/11/2024 Refill [facility] - Diabetes [id number] [place] [address] Brendan Zafar MD Refill Request from Last 3 Months Immunizations Name Administration Dates Next Due [facility] primary monoval ent 12+ yr 0.3mL Purple cap 02/26/2021 INFLUENZA 10/27/2013,08/18/2012 INFLUENZA VACCINE, QUADR. (F LUZONE; FLULAVAL; FLUARIX; AFLURIA QUADRIVALENT; 6MO+), 0.5 ML (IIV4) 08/31/2023,09/19/2020,09/09/2016, 015 Family History Medical History Relation Name Comments Negative Family History Other DM, thyroid d/o Relation Name Status Comments Other Social History Tobacco Use Types Packs/Day Years [...] Mass Index 20.57 08/31/2023 10:54 AM CDT Plan of Treatment Health Maintenance Due Date Last Done Comments PNEUMOCOCCAL VACCINE (1 of 2 - PCV) 2010 DIABETES RETINOPATHY SCREENING 06/20/2014 DIABETES-FOOT EXAM WITH MONOFILAMENT 06/20/2014 HIV SCREENING 2019 HPV VACCINE (1 - 3-dose series) 2019 CHLAMYDIA/GONORRHEA SCREENING 2020 HEPATITIS C SCREENING 10/08/2022 DTAP/TDAP/TD VACCINES (1 - Tdap) 2023 HEPATITIS B VACCINE (1 of 3 - 19+ 3-dose series) 2023 DEPRESSION SCREENING 11/23/2023 DIABETES-HGB A1C 03/01/2024 08/31/2023, 08/2023, 05/18/2023, Additional history exists DIABETES - URINE PROTEIN SCREENING 05/18/2024 05/18/2023, 07/09/2021, 09/19/2020, Additional history exists COVID-19 VACCINE ( season) 2024 08/25/2022, 03/27/2021, 02/26/2021 INFLUENZA VACCINE (#1) 2024 , 08/25/2022, 09/19/2020, Additional history exists DIABETES-SERUM CREATININE 08/02/20242022, 08/01/2023, 08/01/2023, Additional history exists ZOSTER VACCINE (1 of 2) 2054 HIB VACCINE Aged Out No longer eligi ble based on patient's age to complete this topic MENINGOCOCCAL VACCINE Aged Out No suri mary eligible based on patient's age to complete this topic Procedures Procedure Name Priority Date/Time Associated Diagnosis [...] - POCT INTERFACED (08/31/2023 10:53 AM CDT) Pathologist [facility] Hemoglobin A1C POCT 7.2(H) <5.7 % 08/31/2023 11:00 AM CDT [facility] Estimated Average Glucose 160 mg/dL 08/31/2023 11:00 AM T [facility] Blood BLOOD SPECIMEN / Unknown 08/31/2023 10:53 AM CDT 08/31/2023 11:00 AM CDT Narrative [facility] - 08/31/2023 11:00 AM CDT HbA1c [...] POINT OF CARE ORDERABLES Performing Organization Address City/State/[facility] Co de Phone Number [facility] [place] [address] * (ABNORMAL) BASIC METABOLIC PANEL (CALCIUM TOTAL) (08/02/2023 3:47 AM CDT) BUN 13 7 - 26 mg/dL 08/02/2023 4:25 AM [facility] Creatinine 0.66 0.56 - 0.96 mg/dL 08/02/2023 4:25 AM [facility] Sodium 133(L) 136 - 145 mmol/L 08/02/2023 4:25 AM [facility] Potassium 3.9 3.5 - 4.5 mmol/L 08/02/2023 4:25 AM [facility] Chloride 105 98 - 107 mmol/L 08/02/2023 4:25 AM [facility] CO2 22 22 - 29 mmol/L 08/02/2023 4:25 AM [facility] Glucose 289(H) 70 - 115 mg/dL 08/02/2023 4:25 AM [facility] Calcium 8.9 8.4 - 10.2 mg/dL 08/02/2023 4:25 AM [facility] Anion Gap 6 6 - 16 08/02/2023 4:25 AM [facility] BUN/Creatinine Ratio 20 7 - 23 08/02/2023 4:25 AM [facility] Osmolality Calculated 287 270 - 300 mOsm/kg 08/02/2023 4:25 AM [facility] eGFR by CKD-EPI >90 >=90 mL/min/1.7 3 m2 08/02/2023 4:25 AM [facility] Blood BLOOD SPECIMEN / Unknown Lab Venipuncture / Unknown 08/02/2023 3:47 AM CDT 08/02/2023 3:58 AM CDT Breana Olivas MD LAB - CHEMISTRY ORDE CECE [facility] [address] [place] [address], [facility] [phone] * MICROALB/CREAT RATIO URINE RANDOM PANEL (05/18/2023 9:36 AM CDT) Albumin Random Urine 10.2 Not Established ug/mL 05/18/2023 10:51 AM CDT [facility] Creatinine Urine 188 Not Established mg/dL 05/18/2023 10:51 AM CDT [facility] Urine Albumin/Creati nine Ratio 5 <30 mg/g 05/18/2023 10:51 AM CDT [facility] Urine URINE SPECIMEN OBTAINED BY CLEAN CATCH PROCEDURE / Unknown Collection / Unknown 05/18/2023 9:36 AM CDT 05/18/2023 10:28 AM CDT Breana Olivas MD LAB - URINE CHEMISTR Y ORDERABLES [facility] [address] [place] [phone], [facility] [phone] from Last 3 Months or Most Recently Relevant to Health Maintenance Advance Directives * Full Code (Latest Code Status on File) Date Activated Date Inactivated Comments 08/01/2023 12:50 PM 08/02/2023 11:27 AM * Full Code Date Activated Date Inactivated Comments 12/10/2022 6:34 PM 12/11/2022 4:33 PM * Full Code Date Activated Date Inactivated Comments 03/03/2021 11:41 AM 03/04/2021 8:29 PM Care Teams Sr. Manager Marketing Relationship Specialty Start Date End Date Alvarez Prabhakar MD [address] [place] [phone] PCP - General 12/12/11
--- OUTSIDE RECORDS SUMMARY | 2024-11-22 05:18 | XMS_ITS | Encounter Summary ---
Author Organization [facility] Address [address] [place] [address] Care Team Providers Care Equipment Worker Name Role Phone Alvarez Prabhakar MD Primary Care Provider [phone] Encounter Details Date Type Department Care Team (Latest Contact Info) Description 11/12/2022 2:25 PM RN PERIOPERATIVE - 11/12/2022 11:59 PM RN PERIOPERATIVE Hospital Encounter [facility] - Diabetes Mgmt [address] [place] [address] Breana Olivas MD Rosalva Moyer, INTERNET MERCHANT[employer] [address] [place] [address] Discharge Disposition: Home or Self Care Social History Tobacco Use Types Packs/Day Years Used Date Smoking Tobacco: Never Smokeless Tobacco: Never Alcohol Use Standard Drinks/Week Comments Never 0 (1 standard drink = 0.6 oz pur e alcohol) Sex and Gender Information Value Date Recorded Sex Assigned at Not on file Gender Identity Not on file Sexual Orientation Not on file documented as of this encounter Last Filed Vital Signs Vital Sign Reading Time Taken Comments Blood Pressure 116/70 11/12/2022 2:30 PM RN PERIOPERATIVE Pulse - - Temperature - - Respiratory Rate - - Oxygen Saturation - - Inhaled Oxygen Concentration - - Weight 52.9 kg (116 lb 10 oz) 11/12/2022 2:30 PM RN PERIOPERATIVE Height 158.6 cm (5' 2.44 ) 11/12/2022 2:30 PM CS T Body Mass Index 21.03 11/12/2022 2:30 PM RN PERIOPERATIVE Body Mass Index Percentile 46.64% 11/12/2022 2:3 0 PM RN PERIOPERATIVE Growth Chart: [facility] (Girls, 2- 20 Years) documented in this encounter Functional Status Functional Status Response Date of Assess ment Is person deaf or have serious hearing difficult y? No 03/04/2021 Is person blind or have serious difficulty seein g? No 03/04/2021 Does person have serious dif ficulty walking/climbing stairs? No 03/04/2021 Does person have difficulty dressing/bathing? No 03/04/2021 Does person have difficulty doing errands alone? No 03/04/2021 Cognitive Status Response Date of Assessm ent Does person have difficulty concentrating/remembering/making decisions? No 03/04/2021 documented as of this encounter Discharge Instructions * Patient Instructions* Breana Olivas MD - 11/12/2022 3:01 PM RN PERIOPERATIVE Your blood sugars are not good, averaging 286 on your meter. Your HbA1C has increased from 7.2% to 9.7% (average BS 232). Let's try the following doses: 1. Continue Lantus 18 Units. 2. Try a ratio of 1 Unit per 7 grams for meals and snacks. 3. Mealtime correction of 1 Unit per 40 over 150: BS 151-190 1 Unit BS 191-230 2 Units BS 231-270 3 Units BS 271-310 4 Units BS >350 5 Units Call David Felton on Nov 17 at to review your blood sugars and adjust your insulin doses as needed. PERIOPERATIVE documented in this encounter Medications at Time of Discharge Medication Sig Dispensed Refills Start Date End Date acetone,urine, (KETOSTIX) stripIndications:Type 1 diabetes mellitus without complication (HCC) Use as directed for urine ketone checks if blood sugar above 250 or if ill. Dispense one bottle for school and one for home. 100 strip 3 04/12/2018 Blood Glucose Monitoring Suppl (ACCU-CHEK DRAKE SMARTVIEW) W/DEVICE KIT kitIndications:Diabet es mellitus type 1 (HCC) Use for blood glucose monitoring. 1 Kit 0 08/18/2012 Blood Glucose Monitoring Suppl ([employer] VERIO IQ SYSTEM) w/Device KIT Use 1 kit as directed 2 kit 12/16/2019 glucagon (GLUCAGON EMERGENCY) injectionIndications: Type 1 diabetes mellitus without complication (HCC) Inject 1 mg into muscle as directed for severe low blood sugar reaction. 2 kit 07/11/2019 injection device-insulin (NOVOPEN ECHO) deviceIndications:Typ e 1 diabetes mellitus without complication (HCC) Use for insulin delivery. 1 device 1 10/20/2018 insulin syringe-needle (BD ULTRAFINE II) 31G X 5/16 0.3 ML syringe USE FOR INJECTION DAILY 100 Each 04/17/2020 Insulin Syringe-Needle U-100 (SAFESNAP INSULIN SYRINGE) 30G X 5/16 0.5 ML MISC Use 1 syringe as directed 50 Each 5 03/11/2021 oxybutynin CR 24hr (DITROPAN-XL) 10 MG tablet Take 1 (one) tablet by mouth at bedtime 30 tablet 11 06/20/2021 ACCU-CHEK FASTCLIX LANCETS Use for blood glucose monitoring 4-6 times/day. 200 Each 11 08/04/2016 05/22/2023 acetone,urine, (KETOSTIX) stripIndications:Type 1 diabetes mellitus without complication (HCC) Use as needed (use when blood sugar is greater than 250 or when ill. ) 100 strip 11 04/15/2022 04/23/2023 Basaglar KwikPen (Basaglar) penIndications:Type 1 diabetes mellitus without complication (HCC) ADMINISTER 18 UNITS UNDER THE SKIN DAILY OR DIRECTED 15 mL 3 11/12/2022 04/23/2023 Continuous Blood Gluc Sensor (Dexcom G6 Sensor) MISC CHANGE SENSOR EVERY 10 DAYS 3 Each 6 10/24/2022 06/09/2023 Continuous Blood Gluc Transmit (DEXCOM G6 TRANSMITTER) MISC Use 1 Each Every 90 days 1 Each 3 07/03/2021 06/09/2023 Glucagon (BAQSIMI TWO PACK) 3 MG/DOSE POWD Stanton 1 Each into the nose as directed Administer 3 mg intranasally for severe low blood sugar 1 Each 04/15/2022 05/08/2023 insulin lispro (HumaLOG;ADMelog) 100 UNIT/ML penIndications:Type 1 diabetes mellitus without complication (HCC) INJECT 1 UNIT FOR EVERY 5 CARBOHYDRATES, WITH A MAX OF 60 UNITS PER DAY. 30 mL 10/27/2022 12/11/2022 insulin lispro (HUMALOG;ADMELOG) 100 UNIT/ML pen Inject 0 (zero) Units to 10 (ten) Units subcutaneously 3 times daily before meals 1 unit for every 40 over 150 03/04/2021 12/11/2022 Insulin Pen Needle (BD PEN NEEDLE DRAKE U/F) 32G X 4 MM MISC Use 4-6 Each once daily 200 Each 11 11/21/2020 08/03/2023 Insulin Pen Needle (BD PEN NEEDLE DRAKE U/F) 32G X 4 MM MISCIndications:Type 1 diabetes mellitus without complication (HCC) Use 4-6 Each as directed Use for injections 4-6 times daily. 200 Each 11 05/24/2018 08/03/2023 OneTouch Delica Lancets 33G MISC Use 1 Each as directed To test blood sugar 4-7 times a day 200 Each 4 04/15/2022 04/23/2023 OneTouch Verio test strip USE DIRECTED 5-9 TIMES DAILY. 200 strip 4 10/24/2022 08/03/2023 documented as of this encounter Progress Notes * Breana Olivas MD - 11/12/2022 3:30 PM CST Images from the original note were not included. Anaid Dimas was seen alone in our Pediatric Endocrinology offices on 11/12/22. She is an 17 year old young woman who is followed for type 1 diabetes diagnosed in 08/04 . Interval History: Healthy since last seen in June. Not using her Dexcom sensor but rather her OneTouch Verio meter. No severe hypoglycemia or ketonuria reported. Vaccinations: Covid Vaccination: Yes Annual influenza vaccination: Yes Diabetes Therapies: Lantus 18 Units at 10 PM. Humalog at guesstimated doses: 12 Units for breakfast, 6-10 Units for lunch, and 9-12 Units for dinner; thinks her carb ratio is 1 Unit: 15 grams. May be taking corrections of 2 Units; 50/150. Total daily insulin dose up to 52 Units (0.98 U/kg/d). Injections given in the legs by Anaid. Current Prescriptions: Current Outpatient Medications: ??? ACCU-CHEK FASTCLIX LANCETS, Use for blood glucose monitoring 4-6 times/day. ??? acetone,urine, (KETOSTIX) strip, Use as needed (use when blood sugar is greater than 250 or when ill. ) ??? acetone,urine, (KETOSTIX) strip, Use as directed for urine ketone checks if blood sugar above 250 or if ill. Dispense one bottle for school and one for home. ??? Basaglar KwikPen (Basaglar) pen, ADMINISTER 30 UNITS UNDER THE SKIN DAILY OR DIRECTED ??? Blood Glucose Monitoring Suppl (ACCU-CHEK DRAKE SMARTVIEW) W/DEVICE KIT kit, Use for blood glucose monitoring. ??? Blood Glucose Monitoring Suppl ([employer]CH VERIO IQ SYSTEM) w/Device KIT, 1 kit, Does not apply, DIRECTED ??? Continuous Blood Gluc Sensor (Dexcom G6 Sensor) MISC, CHANGE SENSOR EVERY 10 DAYS ??? Continuous Blood Gluc Transmit (DEXCOM G6 TRANSMITTER) MISC, 1 Each, Does not apply, q 90 days ??? Glucagon (BAQSIMI TWO PACK) 3 MG/DOSE POWD, 1 Each, Nasal, DIRECTED ??? glucagon (GLUCAGON EMERGENCY) injection, Inject 1 mg into muscle as directed for severe low blood sugar reaction. ??? injection device-insulin (NOVOPEN ECHO) device, Use for insulin delivery. ??? insulin lispro (HUMALOG;ADMELOG) 100 UNIT/ML pen, 0-10 Units, Subcutaneous, TID AC ??? insulin lispro (HumaLOG;ADMelog) 100 UNIT/ML pen, INJECT 1 UNIT FOR EVERY 5 CARBOHYDRATES, WITHA MAX OF 60 UNITS PER DAY. ??? Insulin Pen Needle (BD PEN NEEDLE DRAKE U/F) 32G X 4 MM MISC, 4-6 Each, Does not apply, QDAY ??? Insulin Pen Needle (BD PEN NEEDLE DRAKE U/F) 32G X 4 MM MISC, 4-6 Each, Does not apply, DIRECTED ??? insulin syringe-needle (BD ULTRAFINE II) 31G X 5/16 0.3 ML syringe, USE FOR INJECTION DAILY ??? Insulin Syringe-Needle U-100 (SAFESNAP INSULIN SYRINGE) 30G X 5/16 0.5 ML MISC, 1 syringe, Does not apply, DIRECTED ??? OneTouch Delica Lancets 33G MISC, 1 Each, Does not apply, DIRECTED ??? OneTouch Verio test strip, USE DIRECTED 5-9 TIMES DAILY. ??? oxybutynin CR 24hr (DITROPAN-XL) 10 MG tablet, 10 mg, Oral, AT BEDTIME No Known Allergies Meal Plan: Anaid Dimas/her parent(s) report the child has meal amounts that are unmeasured, as she doesn't have time to count . She has been ordering food from the Internet recently and has not looked at carb counts. Anaid Dimas last saw our pulverizer feeder in June. Sports/Physical Exercise: PE only Blood Glucose Monitoring: Anaid Dimas's glucose monitoring is done 2-6 x daily with a One Touch Verio meter. The reported target range is 80-150. Meter available for examination: Breakfast Lunch Dinner Bedtime Overnight Other Range 199-270 68-575 65-420 194-499 Mean 285 329 202 302 Comments Hypoglycemia: Frequency/Treatment: ~1 time per week. Anaid recognizes her hypoglycemia when her blood sugar is <70, characterized by shaking. Treatment is adequate (juice or fruit) and an emergency IM glucagon kit is available. Urine Ketone Monitoring: None Review of Systems: General: c/o fatigue Skin: negative Eyes: normal vision; last dilated eye exam in Nov 2020 ENT: brushes teeth twice daily, sees dentist Respiratory: negative GI: normal BM's : nightly enuresis despite Rx medication Neurologic: no h/o seizure(s) Psychiatric: PHQ-9 depression score 4 (for fatigue) Endocrine: regular menses All other systems reviewed and were negative. Past Medical History: I have reviewed the patient's medical, surgical, social and family history and the updates are: Lives with mother, grandmother, and 2-yr-old sister. 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 Has a boyfriend; denies being sexually active. Physical Examination: BP 116/70 Ht 1.586 m (5' 2.44 ) Wt 52.9 kg (116 lb 10 oz) LMP 06/22/2022 (Approximate) BMI 21.03 kg/m?? 34 %ile (Z= -0.41) based on CDC (Girls, 2-20 Years) oulaas-ftt-ypn data using vitals from 11/12/2022. 24 %ile (Z= -0.70) based on CDC (Girls, 2-20 Years) Dthqgcx-sxk-clt data based on Stature recorded on 11/12/2022. Body mass index is 21.03 kg/m??. 47 %ile (Z= -0.08) based on CDC (Girls, 2-20 Years) BMI-for-age based on BMI available as of 11/12/2022. General: Well-appearing, WDWN, spacy teen. Skin/Hair/Nails: Warm and dry. No insulin lipohypertrophy. Acne scars. Eyes: Sclerae clear, PERRLA, EOMs intact; no abnormal fundoscopic findings. Dentition: Good oral hygiene. Neck: Supple. Thyroid generous in size. Chest: Symmetric. Lungs clear to auscultation, unlabored breathing. CV system unremarkable with regular heart rate and rhythm, normal S1/S2, no murmurs, rubs, or gallops. Abdomen: Soft, non-tender, without organ enlargement or masses. Pubertal maturation: Not examined. Extremities: No cyanosis or edema. Neurologic system: Non-focal. DTRs 2+ and equal. Normal sensation for light touch and vibration. ID Tag Status: None Laboratory Data: HbA1C 9.7% Assessment: Type 1 diabetes of 10 years' duration under poor recent control due to sloppy management; HbA1C hasjumped from 7.2 to 9.7%, her highest value in 2 years No known diabetes complications or autoimmune/metabolic co-morbidities Psychological health is reportedly good; complains of fatigue Family support is unknown, although she lives with her mother and grandmother Management Plan: Suggested insulin regimen: 1. Continue Lantus 18 Units. 2. Try a ratio of 1 Unit per 7 grams for meals and snacks. 3. Mealtime correction of 1 Unit per 40 over 150: BS 151-190 1 Unit BS 191-230 2 Units BS 231-270 3 Units BS 271-310 4 Units BS >350 5 Units Consultation done with David Coulter RN, today to review the discharge plan. Recommended touchingbase with him next Thursday for a BS review. Return visit in 3 months with a Teen Transition visit and updated labs (urine microalbumin:Cr, TSH,etc.). Breana Olivas MD [phone] CC: Alvarez Prabhakar MD [address] / [place] [address] Date: 11/12/2022 3:31 PM PERIOPERATIVE documented in this encounter Plan of Treatment Scheduled Orders Name Type Priority Associated Diagnoses Orde r Schedule HEMOGLOBIN A1C - POCT (IP) BEAKER Point of Care Testing Routine Type 1 diabetes mellitus without complication (HCC) 1 Occurrences starting 11/12/2022 until 11/07/2023 documented as of this encounter Procedures Procedure Name Priority Date/Time Associated Diagnosis Comments HEMOGLOBIN A1C - POCT INTERFACED Routine 11/12/2022 2:40 PM RN PERIOPERATIVE documented in this encounter Results * (ABNORMAL) HEMOGLOBIN A1C - POCT INTERFACED (11/12/2022 2:40 PM RN PERIOPERATIVE) Hemoglobin A1C POCT 9.7(H) <5.7 % 11/18/2022 7:40 AM RN PERIOPERATIVE [facility] Estimated Average Glucose 232 mg/dL 11/18/2022 7:40 AM RN PERIOPERATIVE [facility] Blood BLOOD SPECIMEN / Unknown 11/12/2022 2:40 PM RN PERIOPERATIVE 11/18/2022 7:40 AM RN PERIOPERATIVE Narrative [facility] - 11/18/2022 7:40 AM RN PERIOPERATIVE HbA1c Interpretation: Normal: < 5.7% Pre-diabetes: 5.7-6.4% [...] National Glycohemoglobin Standardization Program (NGSP) certified method. Rosalva Moyer INTERNET MERCHANT-[employer] LAB - POINT OF CARE ORDERABLES [facility] [address] [facility] [place] [address] documented in this encounter Visit Diagnoses Diagnosis Type 1 diabetes mellitus without complication (HCC)- Primary Type I (juvenile type) diabetes mellitus without mention of complication, not stated as uncontrolled documented in this encounter Care Teams Equipment Worker Relationship Specialty Start Date End Date Alvarez Prabhakar MD [address] [place] [phone] PCP - General 12/12/11 documented as of this encounter
--- OUTSIDE RECORDS SUMMARY | 2024-11-22 05:18 | XMS_ITS | Encounter Summary ---
Author Organization [facility] Address [address] [place] [address] Care Team Providers Care Chemist Internship Name Role Phone Alvarez Prabhakar MD Primary Care Provider [phone] Reason for Visit * Reason Onset Date Comments MEDICATION REFILL 06/29/2023 Encounter Details Date Type Department Care Team (Late st Contact Info) Description 06/29/2023 Refill [facility] Pediatrics - Diabetes [address] [address] Breana Olivas MD MEDICATION REFILL Social History Tobacco Use Types Packs/Day Years Used Date Smoking Tobacco: Never Passive Smoke Exposure: Never Smokeless Tobacco: Never Alcohol Use Standard Drinks/Week Comments Never 0 (1 standard drink = 0.6 oz pur e alcohol) Sex and Gender Information Value Date Recorded Sex Assigned at Not on file Gender Identity Not on file Sexual Orientation Not on file documented as of this encounter Functional Status Functional Status Response Date of Assess ment Is person deaf or have serious hearing difficult y? No 12/10/2022 Is person blind or have serious difficulty seein g? No 12/10/2022 Does person have serious dif ficulty walking/climbing stairs? No 12/10/2022 Does person have difficulty dressing/bathing? No 12/10/2022 Does person have difficulty doing errands alone? No 12/10/2022 Cognitive Status Response Date of Assessm ent Does person have difficulty concentrating/remembering/making decisions? No 12/10/2022 documented as of this encounter Miscellaneous Notes * Telephone Encounter - Lizeth Garrett RN - 06/29/2023 8:52 AM CDT Last here 04/2023. No pending appointment. Left message asking parent to call office to make appointment for further refills. documented in this encounter Plan of Treatment Not on file documented as of this encounter Visit Diagnoses Diagnosis Type 1 diabetes mellitus without complication (HCC) Type I (juvenile type) diabetes mellitus without mention of complication, not stated as uncontrolled documented in this encounter Care Teams Chemist Internship Relationship Specialty Start Date End Date Alvarez Prabhakar MD [address] [place] [address] PCP - General 12/12/11 documented as of this encounter
--- OUTSIDE RECORDS SUMMARY | 2024-11-22 05:18 | XMS_ITS | Encounter Summary ---
Author Organization [facility] Address [address] [place] [address] Care Team Providers Care Plant Operator/Shift Supervisor Name Role Phone Alvarez Prabhakar MD Primary Care Provider [phone] Reason for Visit * Reason Comments Refill Request Encounter Details Date Type Department Care Team (Late st Contact Info) Description 10/23/[address] [facility] Pediatrics - Diabetes [address] [address] Brendan Zafar MD [address] [place] [address] [phone] Refill Request Social History Tobacco Use Types Packs/Day Years [...] No 03/04/2021 documented as of this encounter Plan of Treatment Not on file documented as of this encounter Visit Diagnoses Not on filedocumented in this encounter Care Teams Plant Operator/Shift Supervisor Relationship Specialty Start Date End Date Alvarez Prabhakar MD [address] [place] [address] PCP - General 12/12/11 documented as of this encounter
--- OUTSIDE RECORDS SUMMARY | 2024-11-22 05:18 | XMS_ITS | Encounter Summary ---
Author Organization [facility] Address [address] [facility] [place] [address] Care Team Providers Care Head Sawyer Name Role Phone Alvarez Prabhakar MD Primary Care Provider [phone] Reason for Visit * Reason Onset Date Comments MEDICATION REFILL 04/23/2023 Encounter Details Date Type Department Care Team (Late st Contact Info) Description 04/23/2023 Refill [facility] Pediatrics - Diabetes [address] [address] Breana Olivas MD MEDICATION REFILL Social History [...] Telephone Encounter - Lizeth Garrett RN - 04/23/2023 8:40 AM CDT No seen since 08/2022. No showed for 2 appointments. Left message asking if seeing new provider andnotifying received refill request. Asked patient to call office. Will fill for one month. Lantus aspreferred over requested Basaglar. Used Lantus previously and no allergies noted in chart. documented in this encounter Plan of Treatment Not on file documented as of this encounter Visit Diagnoses Diagnosis Type 1 diabetes mellitus without complication (HCC) Type I (juvenile type) diabetes mellitus without mention of complication, not stated as uncontrolled documented in this encounter Care Teams Head Sawyer Relationship Specialty Start Date End Date Alvarez Prabhakar MD [address] [place] [id number] PCP - General 12/12/11 documented as of this encounter
--- OUTSIDE RECORDS SUMMARY | 2024-11-22 05:18 | XMS_ITS | Encounter Summary ---
Author Organization [facility] Address [address] [facility] [place] [place] [address] Care Team Providers Care English As A Second Language Teacher Name Role Phone Alvarez Prabhakar MD Primary Care Provider [phone] Encounter Details Date Type Department Care Team (Latest Contact Info) Description 07/22/2022 Travel Social History Tobacco Use Types Packs/Day Years Used Date Smoking Tobacco: Never Smokeless Tobacco: Never Alcohol Use Standard Drinks/Week Comments Never 0 (1 standard drink = 0.6 oz pur e alcohol) Sex and Gender Information Value Date Recorded Sex Assigned at Not on file Gender Identity Not on file Sexual Orientation Not on file COVID-19 Exposure Response Date Recorded In the last 10 days, have terrell u been in contact with someone who was confirmed or suspected to have Coronavirus/COVID-19? No / Unsure 07/22/2022 8:01 AM CDT documented as of this encounter Functional Status [...] on filedocumented in this encounter Care Teams English As A Second Language Teacher Relationship Specialty Start Date End Date Alvarez Prabhakar MD [address] [place] [phone] PCP - General 12/12/11 documented as of this encounter
--- OUTSIDE RECORDS SUMMARY | 2024-11-22 05:18 | XMS_ITS | Encounter Summary ---
Author Organization [facility] Address [address] [facility] [address] [place] [address] Care Team Providers Care Medical Laboratory Technical Officer Name Role Phone Alvarez Prabhakar MD Primary Care Provider [phone] Encounter Details Date Type Department Care Team (Latest Contact Info) Description 06/03/2023 1:24 PM CDT - 06/03/2023 11:59 PM CDT Hospital Encounter [facility] Pediatrics - Lab [address] [place] [address] Discharge Disposition: Home or Self Care Social [...] No 12/10/2022 documented as of this encounter Medications at Time of Discharge Medication Sig Dispensed Refills Start Date End Date Accu-Chek FastClix LancetsIndications:Type 1 diabetes mellitus without complication (HCC) Use for blood glucose monitoring 4-6 times/day. 200 Each 11 05/22/2023 acetone,urine, (KETOSTIX) stripIndications:Type 1 diabetes mellitus without complication (HCC) Use as directed for urine ketone checks if blood sugar above 250 or if ill. Dispense one bottle for school and one for home. 100 strip 3 04/12/2018 Blood Glucose Monitoring Suppl (ACCU-CHEK DRAKE SMARTVIEW) W/DEVICE KIT kitIndications:Diabetes mellitus type 1 (HCC) Use for blood glucose monitoring. 1 Kit 0 08/18/2012 Blood Glucose Monitoring Suppl ([employer] VERIO IQ SYSTEM) w/Device KIT Use 1 kit as directed 2 kit 12/16/2019 glucagon (GLUCAGON EMERGENCY) injectionIndications:Ty pe 1 diabetes mellitus without complication (HCC) Inject 1 mg into muscle as directed for severe low blood sugar reaction. 2 kit 07/11/2019 injection device-insulin (NOVOPEN ECHO) deviceIndications:Type 1 diabetes mellitus without complication (HCC) Use [...] mouth at bedtime 30 tablet 11 06/20/2021 acetone,urine, (Ketostix) stripIndications:Type 1 diabetes mellitus without complication (HCC) Use as needed (use when blood sugar is greater than 250 or when ill. ) 50 strip 04/23/2023 08/03/2023 Baqsimi One Pack 3 MG/DOSE POWD ADMINISTER 3 MG INTO THE NOSE FOR SEVERE LOW BLOOD SUGAR 2 Each 05/08/2023 06/25/2023 Continuous Blood Gluc Field Services Director (Dexcom G6 Field Services Director) DEVIIndications:Type 1 diabetes mellitus without complication (HCC) Use 1 Each as directed 1 Each 05/18/2023 06/09/2023 Continuous Blood Gluc Sensor (Dexcom G6 Sensor) MISC CHANGE SENSOR EVERY 10 DAYS 3 Each 6 10/24/2022 06/09/2023 Continuous Blood Gluc Transmit (DEXCOM G6 TRANSMITTER) MISC Use 1 Each Every 90 days 1 Each 3 07/03/2021 06/09/2023 insulin degludec (Tresiba) 100 UNIT/ML pen Inject 14 units daily 30 mL 04/24/2023 08/03/2023 insulin lispro (HumaLOG;ADMelog) 100 UNIT/ML penIndications:Type 1 diabetes mellitus without complication (HCC) INJECT 1 UNIT FOR EVERY 7 CARBOHYDRATES, WITH A MAX OF 40 UNITS PER DAY. 45 mL 04/24/2023 11/06/2023 Insulin Pen Needle (BD PEN NEEDLE DRAKE U/F) 32G X 4 MM MISC Use 4-6 Each once daily 200 Each 11 11/21/2020 08/03/2023 Insulin Pen Needle (BD PEN NEEDLE DRAKE U/F) 32G X 4 MM MISCIndications:Type 1 diabetes mellitus without complication (HCC) Use 4-6 Each as directed Use for injections 4-6 times daily. 200 Each 11 05/24/2018 08/03/2023 Lantus SoloStar pen INJECT 18 UNITS UNDER SKIN ONCE NIGHTLY 04/24/2023 08/03/2023 OneTouch Delica Lancets 33G MISCIndications:Type 1 diabetes mellitus without complication (HCC) Use 1 Each as directed 200 Each 04/23/2023 08/03/2023 OneTouch Verio test strip USE DIRECTED 5-9 TIMES DAILY. 200 strip 4 10/24/2022 08/03/2023 documented as of this encounter Plan of Treatment Not on file documented as of this encounter Procedures Procedure Name Priority Date/Time Associated Diagnosis Comments TSH REFLEX FREE T4 Routine 06/03/2023 1: 27 PM CDT Type 1 diabetes mellitus without complication (HCC) TISSUE TRANSGLUTAMINASE AB IGA Routine 06/03/2023 1:27 PM CDT Type 1 diabetes mellitus without complication (HCC) documented in this encounter Results * TISSUE TRANSGLUTAMINASE AB IGA (06/03/2023 1:27 PM CDT) Tissue Transglutaminase (tTG) Ab, IgA <2 0 - 3 U/mL 06/05/2023 7:21 AM CDT [facility] Comment: INTERPRETIVE INFORMATION: Tissue Transglutaminase (tTG) Antibody, IgA 3 U/mL or less: Negative 4-10 U/mL: Weak Positive 11 U/mL or greater: Positive Presence of the tissue transglutaminase (tTG) IgA antibody is associated with glutensensitive enteropathies such as celiac disease and dermatitis herpetiformis. tTG IgA antibody concentrations greater than 40 U/mL usually correlate with results of duodenal biopsies consistent with a diagnosis of celiac disease. For antibody concentrations greater or equal to 4 U/mL but less than or equal to 40 U/mL, additional testing for endomysial (BERTO) IgA concentrations may improve the positive predictive value for disease. Performed By: [facility] [address] [place] [address] Call Center Operations Manager: Adam Moon MD, PhD Blood BLOOD SPECIMEN / Unknown Lab Venipuncture / Unknown 06/03/2023 1:27 PM CDT 06/03/2023 1:31 PM CDT Breana Olivas MD LAB - SEROLOGY ORDER CHASIDY Performing Organization Address [facility]/ZIP Co de Phone Number [facility]) [address] * TSH REFLEX FREE T4 (06/03/2023 1:27 PM CDT) TSH 0.769 0.350 - 4.940 uIU/mL 06/03/2023 2:22 PM CDT [facility] Blood BLOOD SPECIMEN / Unknown Lab Venipuncture / Unknown 06/03/2023 1:27 PM CDT 06/03/2023 1:50 PM CDT Breana Olivas MD LAB - CHEMISTRY MANJULA [facility]HA[facility] [address] [place] [address], [facility] [phone] documented in this encounter Visit Diagnoses Diagnosis Type 1 diabetes mellitus without complication (HCC) Type I (juvenile type) diabetes mellitus without mention of complication, not stated as uncontrolled documented in this encounter Care Teams Medical Laboratory Technical Officer Relationship Specialty Start Date End Date Alvraez Prabhakar MD [address] [place] [phone] PCP - General 12/12/11 documented as of this encounter
--- OUTSIDE RECORDS SUMMARY | 2024-11-22 05:18 | XMS_ITS | Encounter Summary ---
Author Organization [facility] Address [address] [place] [address] Care Team Providers Care Chief Dog License Inspector Name Role Phone Alvarez Prabhakar MD Primary Care Provider [phone] Reason for Visit * Reason Comments HIGH BLOOD SUGAR [facility] endocrine clinic calling in patient of thiers possible DKA large ketoneshyperglycemic and vomiting * Auth/Cert (Routine) Specialty Diagnoses / Procedures Referred By Fan medina Referred To Contact Referral ID Status Reason Start Date Expiration Date Visits Re quested Visits Authorized [id number] 1 1 Encounter Details Date Type Department Care Team (Latest Contact Info) Description 12/10/2022 1:52 PM SOLDER DEPOSIT OPERATOR - 12/11/2022 3:32 PM [facility] Hospital Encounter [facility] - [address] [place] [address] Luigi Gil MD [address] [place] [id number] Isis Munguia MD [address] [place] [id number] Emergency Medicine Discharge Disposition: Home or Self Care Social [...] Sign Reading Time Taken Comments Blood Pressure 101/73 12/11/2022 8:00 AM SOLDER DEPOSIT OPERATOR Pulse 95 12/11/2022 8:00 AM SOLDER DEPOSIT OPERATOR Temperature 36.9 ??C (98.5 ??F) 12/11/2022 8:00 AM CS T Respiratory Rate 20 12/11/2022 8:00 AM SOLDER DEPOSIT OPERATOR Oxygen Saturation 98% 12/11/2022 8:00 AM SOLDER DEPOSIT OPERATOR Inhaled Oxygen Concentration - - Weight 51.4 kg (113 lb 5.1 oz) 12/10/2022 2:48 P M SOLDER DEPOSIT OPERATOR Height 161 cm (5' 3.39 ) 12/10/2022 2:48 PM SOLDER DEPOSIT OPERATOR Body Mass Index 19.83 12/10/2022 2:48 PM SOLDER DEPOSIT OPERATOR Body Mass Index Percentile 29.71% 12/10/2022 2:4 8 PM SOLDER DEPOSIT OPERATOR Growth Chart: [facility] (Girls, 2- 20 Years) documented in this [...] No 12/10/2022 documented as of this encounter Discharge Summaries * Sharan Perkins MD - 12/11/2022 3:32 PM CST Images from the original note were not included. Pediatric Discharge Summary Attending Physician: Isis Munguia MD Office 12/11/2022 6:00 PM Pt. Name: Anaid Arzola Wing : 2005 Attending Physician : Isis Munguia MD Admission Date: 12/10/2022 Discharge Date: 12/11/2022 Hospital Course Anaid is an 17 year old female with past medical history of type 1 diabetes mellitus who presented [place] [facility] with nausea and vomiting and was found to be in DKA with elevated blood glucose >500 and urine ketones. She was started on the DKA pathway with an insulin drip and the 2 bag system, which was titrated as her blood glucose normalized. Urine ketones and BMPs were routinely checked, and eventually normalized. She was taken off the insulin drip and dextrose- containing fluids, and wasable to eat and drink with no issues. She was discharged in stable condition with close endocrine follow up. Discharge Diagnosis(es) Active Problems: Diabetic ketoacidosis without coma associated with type 1 diabetes mellitus ([facility]) Resolved Problems: * No resolved hospital problems. * Condition on Discharge: Improved Consultations: Endocrinology Diagnostic studies: - See Hospital Course Procedures: None Relevant Labs: Most recent urine ketones: trace Most recent BMP 12/11/22 07:57 Sodium: 136 Potassium: 4.3 Chloride: 107 CO2: 17 (L) Anion Gap: 16 BUN: 16 Creatinine: 0.65 eGFR: >90 Glucose: 242 (H) Calcium: 8.9 BUN/Creatinine Ratio: 25 (H) Osmolality Calculated: 291 Most recent blood glucose: 170 Discharge Physical Exam VS: BP 101/73 Pulse 95 Temp 98.5 ??F (Oral) Resp 20 Ht 1.61 m (5' 3.39 ) Wt 51.4 kg (113 lb 5.1 oz) SpO2 98% Height: 161 cm (5' 3.39 ) 37 %ile (Z= -0.33) based on CDC (Girls, 2-20 Years) Prtrobk-jnb-mlz data based on Stature recorded on 12/10/2022. Weight: 51.4 kg (113 lb 5.1 oz) 27 %ile (Z= -0.63) based on CDC (Girls, 2-20 Years) ethlvt-mos-xfe data using vitals from 12/10/2022. General: awake, alert, no apparent distress, eating Head: normocephalic Facial anomalies: None Eyes: Pupils: pupils equal, round, reactive to light EOM: normal Conjunctiva: conjunctiva normal Discharge: none Ears: External ears: normal Nose: normal Mouth / Oropharynx: Mucous membranes: moist Neck: ROM: normal range of motion Adenopathy: none Cardiovascular: Rate: regular Rhythm: regular Heart sounds: normal S1, normal S2 Murmur: no murmur Capillary refill: < 2 seconds Pulmonary: Auscultation: clear to auscultation Aeration: good aeration Respiratory effort: no respiratory distress Abdominal: soft Tenderness: none Distention: none Bowel sounds: normal Musculoskeletal: Upper extremities: Swelling: none Lower extremities: Swelling: none Skin: Temp / Texture: warm, normal turgor Color: normal Rash: none Neurological: Orientation: oriented to person, place and time Movement: no abnormal movements Tone: normal Pending Results Unresulted Labs (From admission, onward) None Discharge Medications Current Discharge Medication List UNREVIEWED MEDICATIONS Instructions Authorizing Provider insulin lispro 100 UNIT/ML pen Commonly known as: HumaLOG;ADMelog Quantity Dispensed: 30 mL Ask about: Which instructions should I use? INJECT 1 UNIT FOR EVERY 5 CARBOHYDRATES, WITH A MAX OF 60 UNITS PER DAY. Breana Olivas MD CONTINUE taking these medications which have NOT CHANGED Instructions Authorizing Provider * Accu-Chek FastClix Lancets Quantity Dispensed: 200 Each Use for blood glucose monitoring 4-6 times/day. ABIDA Clarke * OneTouch Delica Lancets 33G Misc Quantity Dispensed: 200 Each Use 1 Each as directed To test blood sugar 4-7 times a day Breana Olivas MD Accu-Chek Drake SmartView w/Device Kit kit Quantity Dispensed: 1 Kit Use for blood glucose monitoring. ABIDA Barrera * acetone(urine) strip Commonly known as: Ketostix Quantity Dispensed: 100 strip Use as directed for urine ketone checks if blood sugar above 250 or if ill. Dispense one bottle forschool and one for home. ABIDA Barrera * acetone(urine) strip Commonly known as: Ketostix Quantity Dispensed: 100 strip Use as needed (use when blood sugar is greater than 250 or when ill. ) Breana Olivas MD Baqsimi Two Pack 3 MG/DOSE Powd Generic drug: Glucagon Quantity Dispensed: 1 Each Lillian 1 Each into the nose as directed Administer 3 mg intranasally for severe low blood sugar Breana Olivas MD Basaglar KwikPen pen Quantity Dispensed: 15 mL ADMINISTER 18 UNITS UNDER THE SKIN DAILY OR DIRECTED ABIDA Johnson Dexcom G6 Sensor Misc Quantity Dispensed: 3 Each CHANGE SENSOR EVERY 10 DAYS Breana Olivas MD Dexcom G6 Transmitter Misc Quantity Dispensed: 1 Each Use 1 Each Every 90 days Brendan Zafar MD glucagon injection Commonly known as: Glucagen Quantity Dispensed: 2 kit Inject 1 mg into muscle as directed for severe low blood sugar reaction. Breana Olivas MD injection device-insulin device Commonly known as: NovoPen Echo Quantity Dispensed: 1 device Use for insulin delivery. ABIDA Clarke * Insulin Pen Needle 32G X 4 MM Misc Commonly known as: BD Pen Needle Drake U/F Quantity Dispensed: 200 Each Use 4-6 Each as directed Use for injections 4-6 times daily. Breana Olivas MD * BD Pen Needle Drake U/F 32G X 4 MM Misc Generic drug: Insulin Pen Needle Quantity Dispensed: 200 Each Use 4-6 Each once daily ABIDA Clarke * insulin syringe-needle 31G X 5/16 0.3 ML syringe Commonly known as: Bd Ultrafine Ii Quantity Dispensed: 100 Each USE FOR INJECTION DAILY Breana Olivas MD * Insulin Syringe-Needle U-100 30G X 5/16 0.5 ML Misc Commonly known as: SafeSnap Insulin Syringe Quantity Dispensed: 50 Each Use 1 syringe as directed Brendan Zafar MD OneTouch Verio IQ System w/Device Kit Quantity Dispensed: 2 kit Use 1 kit as directed ABIDA Clarke OneTouch Verio test strip Generic drug: blood glucose Quantity Dispensed: 200 strip USE DIRECTED 5-9 TIMES DAILY. Breana Olivas MD oxybutynin CR 24hr 10 MG tablet Commonly known as: Ditropan-XL Quantity Dispensed: 30 tablet Take 1 (one) tablet by mouth at bedtime ABIDA Cates * This list has 8 medication(s) that are the same as other medications prescribed for you. Read thedirections carefully, and ask your doctor or other care provider to review them with you. Discharge Procedure Orders Why you were hospitalized Order Specific Question Answer Comments Your discharge diagnosis is: DKA (diabetic ketoacidosis) ([facility]) [243985] No special diet needed Resume normal home diet as tolerated. Activity as tolerated Rest today, and increase activity level tomorrow as tolerated. Follow up with provider Patient is:High Risk (in 5 Days) Instructions: Please follow up with your endocrinology provider [facility]. They will call you to make a follow up appointment, but if you do not hear from them please call [phone] Special instructions Please return to [facility] Emergency Department if you are experiencing nausea/vomiting, dizziness, headache, confusion, abdominal pain, or lethargy. Take 18 units of lantus nightly. Insulin Lispro dosing: Please give 1 unit for every 7 grams of carbs Pre-meal correction: Please given 1 unit for glucoses 40>150. Give 1 unit for glucoses between 151-190 Give 2 units for glucoses between 191-230 Give 3 units for glucoses between 231-270 Give 4 units for glucoses between 271-310 Give 5 units for glucoses between 311-350 Give 6 units for glucose above 351 Sharan Perkins MD CC: Alvarez Prabhakar MD [address] [facility] [id number] ER DEPOSIT OPERATOR Associated attestation - Isis Munguia MD - 12/12/2022 1:29 PM SOLDER DEPOSIT OPERATOR Late entry: I saw and evaluated Anaid on 12/11/22 I have seen and examined Anaid Dimas. I have discussed the findings with Dr. Perkins and agree with his note in its entirety. In brief, Anaid is a 17 year old F with known type 1 diabetes mellitus who presented in DKA after having abdominal pain and vomiting. She missed her Lantus dose the night prior to admission, and had worsening vomiting the day of admission. In DKA on arrival to the ER after communication with the endocrine office. During my evaluation, Anaid endorsed passive suicidal ideation, and has a plan to stop taking her insulin to kill herself. She denied that the events leading up to her admission were an attempt at suicide and notesprimo does not actively want to kill herself at this time. She also noted while she will sometimes say to a friend that I will kill you , she means this in jest and that she is trying to say that whate valeri they said is way out of order. Appreciate Social Work and Psychology visiting with Anaid andlet her know we will try to coordinate her visit with Dr Mcintosh on a Thursday. Currently her follow up is on a in January. Anaid was tearful during her interview with me. Otherwise agree with Dr Perkins's assessment and plan. Isis Munguia MD Pediatric Endocrinology Pager: [phone] documented in this encounter Medications at Time of Discharge Medication Sig Dispensed Refills Start Date End Date acetone,urine, (KETOSTIX) stripIndications:Type 1 diabetes mellitus without complication (HCC) Use as directed for urine ketone checks if blood sugar above 250 or if ill. Dispense one bottle for school and one for home. 100 strip 3 04/12/2018 Blood Glucose Monitoring Suppl (ACCU-CHEK DRAKE SMARTVIEW) W/DEVICE KIT kitIndications:Diabete s mellitus type 1 (HCC) Use for blood glucose monitoring. 1 Kit 0 08/18/2012 Blood Glucose Monitoring Suppl (Drik VERIO IQ SYSTEM) w/Device KIT Use 1 kit as directed 2 kit 12/16/2019 glucagon (GLUCAGON EMERGENCY) injectionIndications:T ype 1 diabetes mellitus without complication (HCC) Inject [...] Glucagon (BAQSIMI TWO PACK) 3 MG/DOSE POWD Lillian 1 Each into the nose as directed Administer 3 mg intranasally for severe low blood sugar 1 Each 04/15/2022 05/08/2023 insulin lispro (HumaLOG;ADMelog) 100 UNIT/ML penIndications:Type 1 diabetes mellitus without complication (HCC) INJECT 1 UNIT FOR EVERY 5 CARBOHYDRATES, WITH A MAX OF 60 UNITS PER DAY. 30 mL 3 12/11/2022 04/24/2023 Insulin Pen Needle (BD PEN NEEDLE DRAKE [...] as of this encounter Progress Notes * Sharan Perkins MD - 12/11/2022 3:32 PM CST Condition on Discharge: Improved Consultations: Endocrinology Diagnostic studies: - See Hospital Course Procedures: None Relevant Labs: Most recent urine ketones: trace Most recent BMP 12/11/22 07:57 Sodium: 136 Potassium: 4.3 Chloride: 107 CO2: 17 (L) Anion Gap: 16 BUN: 16 Creatinine: 0.65 eGFR: >90 Glucose: 242 (H) Calcium: 8.9 BUN/Creatinine Ratio: 25 (H) Osmolality Calculated: 291 Most recent blood glucose: 170 Discharge Physical Exam VS: BP 101/73 Pulse 95 Temp 98.5 ??F (Oral) Resp 20 Ht 1.61 m (5' 3.39 ) Wt 51.4 kg (113 lb 5.1 oz) SpO2 98% Height: 161 cm (5' 3.39 ) 37 %ile (Z= -0.33) based on [facility] (Girls, 2-20 Years) Ervblql-mtg-ubj data based on Stature recorded on 12/10/2022. Weight: 51.4 kg (113 lb 5.1 oz) 27 %ile (Z= -0.63) based on [facility] (Girls, 2-20 Years) lrpgpu-zpc-nnv data using vitals from 12/10/2022. General: awake, alert, no apparent distress, eating Head: normocephalic Facial anomalies: None Eyes: Pupils: pupils equal, round, reactive to light EOM: normal Conjunctiva: conjunctiva normal Discharge: none Ears: External ears: normal Nose: normal Mouth / Oropharynx: Mucous membranes: moist Neck: ROM: normal range of motion Adenopathy: none Cardiovascular: Rate: regular Rhythm: regular Heart sounds: normal S1, normal S2 Murmur: no murmur Capillary refill: < 2 seconds Pulmonary: Auscultation: clear to auscultation Aeration: good aeration Respiratory effort: no respiratory distress Abdominal: soft Tenderness: none Distention: none Bowel sounds: normal Musculoskeletal: Upper extremities: Swelling: none Lower extremities: Swelling: none Skin: Temp / Texture: warm, normal turgor Color: normal Rash: none Neurological: Orientation: oriented to person, place and time Movement: no abnormal movements Tone: normal ER DEPOSIT OPERATOR * Sharan Perkins MD - 12/11/2022 3:32 PM CST Anaid is an 17 year old female with past medical history of type 1 diabetes mellitus who presented to the [facility] with nausea and vomiting and was found to be in DKA with elevated blood glucose >500 and urine ketones. She was started on the DKA pathway with an insulin drip and the 2 bag system, which was titrated as her blood glucose normalized. Urine ketones and BMPs were routinely checked, an d eventually normalized. She was taken off the insulin drip and dextrose- containing fluids, and wasable to eat and drink with no issues. She was discharged in stable condition with close endocrine follow up. ER DEPOSIT OPERATOR * Isis Mclaughlin RN - 12/11/2022 3:31 PM CST Problem: Pain/Discomfort Goal: Patient exhibits reduced pain/discomfort as evidenced by pain scores Outcome: Completed Goal: Patient uses pharmacological and non-pharmacological pain management strategies. Outcome: Completed Goal: Patient verbalizes acceptable level of pain relief and ability to engage in desired activity. Outcome: Completed ER DEPOSIT OPERATOR * Patti Temple - 12/11/2022 12:39 PM CST Clinical Course History provided by: Patient Anaid was doing well this morning. She reported that her nausea, vomiting, and headache had all resolved, and she generally felt much better than she did on arrival. She denied any pain and had noother complaints. Physical Exam VS: BP 101/73 Pulse 95 Temp 98.5 ??F (Oral) Resp 20 Wt 51.4 kg (113 lb 5.1 oz) General: awake, alert, no apparent distress Head: normocephalic Eyes: Pupils: pupils equal, round, reactive to light EOM: normal Conjunctiva: conjunctiva normal Vision: normal Eyelids: normal Nose: normal Mouth / Oropharynx: Mucous membranes: moist Oral cavity: normal Dentition: normal Oropharynx: normal Neck: ROM: normal range of motion Cardiovascular: Rate: regular Rhythm: regular Heart sounds: normal S1, normal S2 Pulses: Radial: R - 2+, L - 2+ Pulmonary: Auscultation: clear to auscultation Aeration: good aeration Abdominal: soft Musculoskeletal: Upper extremities: Muscle mass: normal Lower extremities: Muscle mass: normal Skin: Temp / Texture: warm, normal turgor Color: normal Neurological: Orientation: oriented to person, place and time Reflexes: normal reflexes Movement: no abnormal movements Strength: normal Tone: normal Gait: normal Labs / Results ER DEPOSIT OPERATOR * Shruthi Jara, - 12/10/2022 6:15 PM CST Chief Complaint HIGH BLOOD SUGAR ([facility] clinic calling in patient of thiers possible DKA large ketones/hyperglycemic and vomiting) History of Present Illness Anaid Dimas is a 17 year old female with past medical history of Type 1 diabetes who presented with nausea and vomiting that started yesterday. Per Anaid, her last insulin dose was around 1pm yesterday and she did not get her lantus dose yesterday night. She has had no URI symptoms but hersister did have stomach bug last week. She has had no diarrhea, no rashes, no abdominal pain that she reports. In [facility] ED initial labs showed POC glucose 445, VBG pH 7.11, HCO3 8, AG 24, K 5.9. UA significant forglucose 3+ and ketones 2+. Anaid was started on an insulin drip and 2 bag fluid protocol in the ED. Insulin regimen per last office visit: 1. Lantus 18 Units. 2. 1 Unit per 7 grams for meals and snacks. 3. Mealtime correction of 1 Unit per 40 over 150: BS 151-190 1 Unit BS 191-230 2 Units BS 231-270 3 Units BS 271-310 4 Units BS >350 5 Units. Review of Systems Constitutional: (-) fever, (-) weight loss Cardiovascular: (-) chest pain, (-) palpitations Respiratory: (-) cough, (-) wheezing Gastrointestinal: (+) nausea, (+) vomiting, (-) diarrhea, (-) abdominal pain Skin: (-) rash Neurological: (+) headaches, (-) seizures, (-) hypotonia Physical Exam VS: BP 130/65 Pulse (!) 116 Temp 98.3 ??F (Oral) Resp 30 Ht 1.61 m (5' 3.39 ) Wt 51.4 kg (113 lb 5.1 oz) SpO2 98% Height: 161 cm (5' 3.39 ) 37 %ile (Z= -0.33) based on [facility] (Girls, 2-20 Years) Rvgkpcu-qmt-jmp data based on Stature recorded on 12/10/2022. Weight: 51.4 kg (113 lb 5.1 oz) 27 %ile (Z= -0.63) based on [facility] (Girls, 2-20 Years) rhcivl-gvp-edh data using vitals from 12/10/2022. General: awake, alert, no apparent distress Eyes: Pupils: pupils equal, round, reactive to light EOM: normal Conjunctiva: conjunctiva normal Ears: External ears: normal Nose: normal Mouth / Oropharynx: Mucous membranes: moist Cardiovascular: Rate: regular Rhythm: regular Pulmonary: Auscultation: clear to auscultation Aeration: good aeration Abdominal: soft Tenderness: none Distention: none Skin: Temp / Texture: warm Color: normal Neurological: Orientation: oriented to person, place and time Movement: no abnormal movements Tone: normal Labs / Results Recent Results (from the past 24 hour(s)) GLUCOSE - POINT OF CARE Collection Time: 12/10/22 2:40 PM Result Value Ref Range Glucose WB/POC 445 (H) 70 - 106 mg/dL Specimen Type Cap Fingerstick URINALYSIS W/MICROSCOPIC REFLEX TO CULTURE Collection Time: 12/10/22 3:31 PM Specimen: Urine Clean Catch Result Value Ref Range Color UA Straw Straw, Yellow Clarity UA Clear Clear Specific [place] UA 1.023 1.005 - 1.030 pH UA 5.0 5.0 - 8.0 pH Protein UA Negative Negative Glucose UA 3+ (Abnormal) Negative Ketone UA 2+ (Abnormal) Negative Bilirubin UA Negative Negative Blood UA 2+ (Abnormal) Negative Nitrite UA Negative Negative Leukocyte Esterase Negative Negative Urobilinogen UA Negative Negative mg/dL RBC UA 0-2 None Seen, 0-2, 3-5 /HPF WBC UA 0-5 None Seen, 0-5 /HPF Squamous Epithelial Cells UA 0-2 None Seen, 0-2, 3-5 /HPF BLOOD GAS VIRY+LYTES+METAB+COOX POC NOTIF Collection Time: 12/10/22 3:35 PM Result Value Ref Range Comment Notification Label Only - See Separate Report BASIC METABOLIC PANEL (CALCIUM TOTAL) Collection Time: 12/10/22 3:35 PM Result Value Ref Range BUN 24 7 - 26 mg/dL Creatinine 0.73 0.56 - 0.96 mg/dL Sodium 133 (L) 136 - 145 mmol/L Potassium 5.9 (H) 3.5 - 4.5 mmol/L Chloride 101 98 - 107 mmol/L CO2 8 (LL) 22 - 29 mmol/L Glucose 493 (HH) 70 - 115 mg/dL Calcium 10.2 8.4 - 10.2 mg/dL Anion Gap 30 (H) 8 - 18 BUN/Creatinine Ratio 33 (H) 7 - 23 Osmolality Calculated 302 (H) 270 - 300 mOsm/kg eGFR by CKD-EPI >90 >=90 mL/min/1.73 m2 BLOOD GAS+COOX+LYTES+METAB VENOUS POCT Collection Time: 12/10/22 3:37 PM Result Value Ref Range pH Venous 7.11 (LL) 7.32 - 7.42 pH pO2 Venous 54 (H) 35 - 40 mmHg pCO2 Venous 32 (L) 40 - 50 mmHg HCO3 Venous 10.2 (L) 20 - 30 mmol/L Base Excess Venous -18.2 (L) -2.0 - 2.0 mmol/L Oxyhemoglobin Venous 75.9 % Deoxyhemoglobin (HHB) Venous % 22.1 % Methemoglobin 1.1 0.0 - 2.0 % Carboxyhemoglobin 1.0 0.0 - 2.0 % O2 Content Venous 15.9 Interpret within clinical context ml/dL Hemoglobin by COOX 14.9 12.0 - 16.0 g/dL O2 Saturation Venous 77 >=70 % Sodium Whole Blood 132 (L) 135 - 145 mmol/L Potassium Whole Blood 5.8 (H) 3.5 - 5.5 mmol/L Chloride WB 98 (L) 101 - 111 mmol/L Calcium Ionized 1.21 mmol/L Ionized Calcium pH Adjusted 1.07 (L) 1.19 - 1.34 mmol/L Anion Gap (AG) Arterial 30 (H) 8 - 18 mmol/L Glucose WB 552 (HH) 70 - 105 mg/dL Lactic Acid Whole Blood 6.3 (HH) <=2.0 mmol/L GLUCOSE - POINT OF CARE Collection Time: 12/10/22 3:58 PM Result Value Ref Range Glucose WB/POC 416 (H) 70 - 106 mg/dL Specimen Type Cap Fingerstick GLUCOSE - POINT OF CARE Collection Time: 12/10/22 5:05 PM Result Value Ref Range Glucose WB/POC 421 (H) 70 - 106 mg/dL Specimen Type Cap Fingerstick GLUCOSE - POINT OF CARE Collection Time: 12/10/22 6:22 PM Result Value Ref Range Glucose WB/POC 465 (HH) 70 - 106 mg/dL Specimen Type Cap Fingerstick GLUCOSE - POINT OF CARE Collection Time: 12/10/22 7:38 PM Result Value Ref Range Glucose WB/POC 368 (H) 70 - 106 mg/dL Specimen Type Cap Fingerstick BASIC METABOLIC PANEL (CALCIUM TOTAL) Collection Time: 12/10/22 8:01 PM Result Value Ref Range BUN 26 7 - 26 mg/dL Creatinine 0.66 0.56 - 0.96 mg/dL Sodium 137 136 - 145 mmol/L Potassium 6.0 (H) 3.5 - 4.5 mmol/L Chloride 107 98 - 107 mmol/L CO2 9 (LL) 22 - 29 mmol/L Glucose 367 (H) 70 - 115 mg/dL Calcium 9.6 8.4 - 10.2 mg/dL Anion Gap 27 (H) 8 - 18 BUN/Creatinine Ratio 39 (H) 7 - 23 Osmolality Calculated 304 (H) 270 - 300 mOsm/kg eGFR by CKD-EPI >90 >=90 mL/min/1.73 m2 KETONES QUALITATIVE URINE AUTO Collection Time: 12/10/22 8:01 PM Result Value Ref Range Ketone UA 2+ (Abnormal) Negative GLUCOSE - POINT OF CARE Collection Time: 12/10/22 8:37 PM Result Value Ref Range Glucose WB/POC 338 (H) 70 - 106 mg/dL Specimen Type Cap Fingerstick GLUCOSE - POINT OF CARE Collection Time: 12/10/22 9:35 PM Result Value Ref Range Glucose WB/POC 273 (H) 70 - 106 mg/dL Specimen Type Cap Fingerstick ER DEPOSIT OPERATOR documented in this encounter H&P Notes * Shruthi Jara DO - 12/10/2022 10:10 PM CST Images from the original note were not included. Pediatric Admission Note 12/10/2022 10:10 PM Chief Complaint HIGH BLOOD SUGAR ([facility] endocrine clinic calling in patient of thiers possible DKA large ketones/hyperglycemic and vomiting) History of Present Illness Anaid Dimas is a 17 year old female with past medical history of Type 1 diabetes who presented with nausea and vomiting that started yesterday. Per Anaid, her last insulin dose was around 1pm yesterday and she did not get her lantus dose yesterday night. She has had no URI symptoms but hersister did have stomach bug last week. She has had no diarrhea, no rashes, no abdominal pain that she reports. In [facility] ED initial labs showed POC glucose 445, VBG pH 7.11, HCO3 8, AG 24, K 5.9. UA significant forglucose 3+ and ketones 2+. Anaid was started on an insulin drip and 2 bag fluid protocol in the ED. Insulin regimen per last office visit: 1. Lantus 18 Units. 2. 1 Unit per 7 grams for meals and snacks. 3. Mealtime correction of 1 Unit per 40 over 150: BS 151-190 1 Unit BS 191-230 2 Units BS 231-270 3 Units BS 271-310 4 Units BS >350 5 Units. Review of Systems Constitutional: (-) fever, (-) weight loss Cardiovascular: (-) chest pain, (-) palpitations Respiratory: (-) cough, (-) wheezing Gastrointestinal: (+) nausea, (+) vomiting, (-) diarrhea, (-) abdominal pain Skin: (-) rash Neurological: (+) headaches, (-) seizures, (-) hypotonia Physical Exam VS: BP 130/65 Pulse (!) 116 Temp 98.3 ??F (Oral) Resp 30 Ht 1.61 m (5' 3.39 ) Wt 51.4 kg (113 lb 5.1 oz) SpO2 98% Height: 161 cm (5' 3.39 ) 37 %ile (Z= -0.33) based on CDC (Girls, 2-20 Years) [id number] data based on Stature recorded on 12/10/2022. Weight: 51.4 kg (113 lb 5.1 oz) 27 %ile (Z= -0.63) based on CDC (Girls, 2-20 Years) [id number] data using vitals from 12/10/2022. General: awake, alert, no apparent distress Eyes: Pupils: pupils equal, round, reactive to light EOM: normal Conjunctiva: conjunctiva normal Ears: External ears: normal Nose: normal Mouth / Oropharynx: Mucous membranes: moist Cardiovascular: Rate: regular Rhythm: regular Pulmonary: Auscultation: clear to auscultation Aeration: good aeration Abdominal: soft Tenderness: none Distention: none Skin: Temp / Texture: warm Color: normal Neurological: Orientation: oriented to person, place and time Movement: no abnormal movements Tone: normal Labs / Results Recent Results (from the past 24 hour(s)) GLUCOSE - POINT OF CARE Collection Time: 12/10/22 2:40 PM Result Value Ref Range Glucose WB/POC 445 (H) 70 - 106 mg/dL Specimen Type Cap Fingerstick URINALYSIS W/MICROSCOPIC REFLEX TO CULTURE Collection Time: 12/10/22 3:31 PM Specimen: Urine Clean Catch Result Value Ref Range Color UA Straw Straw, Yellow Clarity UA Clear Clear Specific [place] UA 1.023 1.005 - 1.030 pH UA 5.0 5.0 - 8.0 pH Protein UA Negative Negative Glucose UA 3+ (Abnormal) Negative Ketone UA 2+ (Abnormal) Negative Bilirubin UA Negative Negative Blood UA 2+ (Abnormal) Negative Nitrite UA Negative Negative Leukocyte Esterase Negative Negative Urobilinogen UA Negative Negative mg/dL RBC UA 0-2 None Seen, 0-2, 3-5 /HPF WBC UA 0-5 None Seen, 0-5 /HPF Squamous Epithelial Cells UA 0-2 None Seen, 0-2, 3-5 /HPF BLOOD GAS VIRY+LYTES+METAB+COOX POC NOTIF Collection Time: 12/10/22 3:35 PM Result Value Ref Range Comment Notification Label Only - See Separate Report BASIC METABOLIC PANEL (CALCIUM TOTAL) Collection Time: 12/10/22 3:35 PM Result Value Ref Range BUN 24 7 - 26 mg/dL Creatinine 0.73 0.56 - 0.96 mg/dL Sodium 133 (L) 136 - 145 mmol/L Potassium 5.9 (H) 3.5 - 4.5 mmol/L Chloride 101 98 - 107 mmol/L CO2 8 (LL) 22 - 29 mmol/L Glucose 493 (HH) 70 - 115 mg/dL Calcium 10.2 8.4 - 10.2 mg/dL Anion Gap 30 (H) 8 - 18 BUN/Creatinine Ratio 33 (H) 7 - 23 Osmolality Calculated 302 (H) 270 - 300 mOsm/kg eGFR by CKD-EPI >90 >=90 mL/min/1.73 m2 BLOOD GAS+COOX+LYTES+METAB VENOUS POCT Collection Time: 12/10/22 3:37 PM Result Value Ref Range pH Venous 7.11 (LL) 7.32 - 7.42 pH pO2 Venous 54 (H) 35 - 40 mmHg pCO2 Venous 32 (L) 40 - 50 mmHg HCO3 Venous 10.2 (L) 20 - 30 mmol/L Base Excess Venous -18.2 (L) -2.0 - 2.0 mmol/L Oxyhemoglobin Venous 75.9 % Deoxyhemoglobin (HHB) Venous % 22.1 % Methemoglobin 1.1 0.0 - 2.0 % Carboxyhemoglobin 1.0 0.0 - 2.0 % O2 Content Venous 15.9 Interpret within clinical context ml/dL Hemoglobin by COOX 14.9 12.0 - 16.0 g/dL O2 Saturation Venous 77 >=70 % Sodium Whole Blood 132 (L) 135 - 145 mmol/L Potassium Whole Blood 5.8 (H) 3.5 - 5.5 mmol/L Chloride WB 98 (L) 101 - 111 mmol/L Calcium Ionized 1.21 mmol/L Ionized Calcium pH Adjusted 1.07 (L) 1.19 - 1.34 mmol/L Anion Gap (AG) Arterial 30 (H) 8 - 18 mmol/L Glucose WB 552 (HH) 70 - 105 mg/dL Lactic Acid Whole Blood 6.3 (HH) <=2.0 mmol/L GLUCOSE - POINT OF CARE Collection Time: 12/10/22 3:58 PM Result Value Ref Range Glucose WB/POC 416 (H) 70 - 106 mg/dL Specimen Type Cap Fingerstick GLUCOSE - POINT OF CARE Collection Time: 12/10/22 5:05 PM Result Value Ref Range Glucose WB/POC 421 (H) 70 - 106 mg/dL Specimen Type Cap Fingerstick GLUCOSE - POINT OF CARE Collection Time: 12/10/22 6:22 PM Result Value Ref Range Glucose WB/POC 465 (HH) 70 - 106 mg/dL Specimen Type Cap Fingerstick GLUCOSE - POINT OF CARE Collection Time: 12/10/22 7:38 PM Result Value Ref Range Glucose WB/POC 368 (H) 70 - 106 mg/dL Specimen Type Cap Fingerstick BASIC METABOLIC PANEL (CALCIUM TOTAL) Collection Time: 12/10/22 8:01 PM Result Value Ref Range BUN 26 7 - 26 mg/dL Creatinine 0.66 0.56 - 0.96 mg/dL Sodium 137 136 - 145 mmol/L Potassium 6.0 (H) 3.5 - 4.5 mmol/L Chloride 107 98 - 107 mmol/L CO2 9 (LL) 22 - 29 mmol/L Glucose 367 (H) 70 - 115 mg/dL Calcium 9.6 8.4 - 10.2 mg/dL Anion Gap 27 (H) 8 - 18 BUN/Creatinine Ratio 39 (H) 7 - 23 Osmolality Calculated 304 (H) 270 - 300 mOsm/kg eGFR by CKD-EPI >90 >=90 mL/min/1.73 m2 KETONES QUALITATIVE URINE AUTO Collection Time: 12/10/22 8:01 PM Result Value Ref Range Ketone UA 2+ (Abnormal) Negative GLUCOSE - POINT OF CARE Collection Time: 12/10/22 8:37 PM Result Value Ref Range Glucose WB/POC 338 (H) 70 - 106 mg/dL Specimen Type Cap Fingerstick GLUCOSE - POINT OF CARE Collection Time: 12/10/22 9:35 PM Result Value Ref Range Glucose WB/POC 273 (H) 70 - 106 mg/dL Specimen Type Cap Fingerstick History Past Medical History: Diagnosis Date ??? Diabetic ketoacidosis without coma associated with type 1 diabetes mellitus 03/03/2021 ??? NEGATIVE PAST MEDICAL HISTORY - SEE PROBLEM LIST Past Surgical History: Procedure Laterality Date ??? NEGATIVE SURGICAL HISTORY Family History Problem Relation Name Age of Onset ??? Negative Family History Other DM, thyroid d/o Social History Tobacco Use ??? Smoking status: Never ??? Smokeless tobacco: Never Vaping Use ??? Vaping Use: Never used Substance Use Topics ??? Alcohol use: Never Alcohol/week: 0.0 standard drinks ??? Drug use: Never Social History Social History Narrative Anaid lives with mother and grandmother. Goes to father's every other weekend. She is in the 10th grade at [employer] and is achieving average grades, IEP. She has an in-tact diabetes managementplan for school. Anaid has good friends and for extracurricular activity Anaid enjoys social media and art. Anaid Dimas expresses feelings of acceptance regarding living with diabetes. History ??? Delivery Method: ??? Gestation Age: 40 wks No NICU stay or intubation Allergies Patient has no known allergies. Immunizations stated as current, but no records available Medications Prior to Visit Current Medications ACCU-CHEK FASTCLIX LANCETS Use for blood glucose monitoring 4-6 times/day. acetone,urine, (KETOSTIX) strip Use as needed (use when blood sugar is greater than 250 or when ill. ) acetone,urine, (KETOSTIX) strip Use as directed for urine ketone checks if blood sugar above 250 orif ill. Dispense one bottle for school and one for home. Basaglar KwikPen (Basaglar) pen ADMINISTER 18 UNITS UNDER THE SKIN DAILY OR DIRECTED Blood Glucose Monitoring Suppl (ACCU-CHEK DRAKE SMARTVIEW) W/DEVICE KIT kit Use for blood glucose monitoring. Blood Glucose Monitoring Suppl (Drik VERIO IQ SYSTEM) w/Device KIT Use 1 kit as directed Continuous Blood Gluc Sensor (Dexcom G6 Sensor) MISC CHANGE SENSOR EVERY 10 DAYS Continuous Blood Gluc Transmit (DEXCOM G6 TRANSMITTER) MISC Use 1 Each Every 90 days Glucagon (BAQSIMI TWO PACK) 3 MG/DOSE POWD Lillian 1 Each into the nose as directed Administer 3 mg intranasally for severe low blood sugar glucagon (GLUCAGON EMERGENCY) injection Inject 1 mg into muscle as directed for severe low blood sugar reaction. injection device-insulin (NOVOPEN ECHO) device Use for insulin delivery. insulin lispro (HumaLOG;ADMelog) 100 UNIT/ML pen INJECT 1 UNIT FOR EVERY 5 CARBOHYDRATES, WITH A MAX OF 60 UNITS PER DAY. insulin lispro (HUMALOG;ADMELOG) 100 UNIT/ML pen Inject 0 (zero) Units to 10 (ten) Units subcutaneously 3 times daily before meals 1 unit for every 40 over 150 Insulin Pen Needle (BD PEN NEEDLE DRAKE U/F) 32G X 4 MM MISC Use 4-6 Each once daily Insulin Pen Needle (BD PEN NEEDLE DRAKE U/F) 32G X 4 MM MISC Use 4-6 Each as directed Use for injections 4-6 times daily. insulin syringe-needle (BD ULTRAFINE II) 31G X 5/16 0.3 ML syringe USE FOR INJECTION DAILY Insulin Syringe-Needle U-100 (SAFESNAP INSULIN SYRINGE) 30G X 5/16 0.5 ML MISC Use 1 syringe as directed [employer] Delica Lancets 33G MISC Use 1 Each as directed To test blood sugar 4-7 times a day OneTouch Verio test strip USE DIRECTED 5-9 TIMES DAILY. oxybutynin CR 24hr (DITROPAN-XL) 10 MG tablet Take 1 (one) tablet by mouth at bedtime Assessment & Plan Diabetic ketoacidosis without coma associated with type 1 diabetes mellitus (CMS/HCC) Assessment: Anaid is a 17y/o with Type 1 diabetes, who presents in DKA with nausea and vomiting that started yesterday. Recently seen in Endocrinology clinic with some changes made to her insulinemanagement. This episode is likely due to unclear [...] - Urine ketones q void until negative Shruthi Jara DO Pediatric Resident PGY-2 ER DEPOSIT OPERATOR Associated attestation - Isis Munguia MD - 12/11/2022 4:14 PM SOLDER DEPOSIT OPERATOR I did not evaluate Anaid Dimas on the day of admission due to time of arrival to floor. I personally reviewed Dr Jara's note in its entirety and agree with it except to add that Anaid was given her dose of Lantus in the ER last night around 1800, as she had not taken it the nightprior to presentation and Anaid should transition to her home regimen once her acidosis clears (bicarb preferably >18). Isis Munguia MD Pediatric Endocrinology documented in this encounter Consult Notes * Milad Regalado MSW - 12/11/2022 1:54 PM CSTAssociated Order(s): IP CONSULT TO DIRECTOR OF OPERATIONS HOME HEALTH SOCIAL SERVICE CONSULT - BRIEF Reason for Referral: Mental Health Resources Assessment/Interventions/Plan: SW met with pt at bedside. SW provided mental health resources (individual therapist from [facility] based off location) and the following counseling groups: 1. [facility] 2. [facility] SW reminded pt to confirm insurance coverage. Pt stated she would think about therapy. SW and pt discussed benefits of therapy. SW will continue to follow throughout hospitalization for support, assessment of needs/ resources, and assistance with safe discharge planning. -WANG Stinson [phone] ER DEPOSIT OPERATOR * Mar Mcrae, KAREN/VEE - 12/11/2022 1:21 PM CSTAssociated Order(s): IP CONSULT TO NUTRITIONAL SERV Nutrition consult ordered for history of diabetes. Pt is known to service from outpatient diabetes clinic, last seen for annual nutrition intervention on 07/22/22 , diet advanced, tolerating intake and therefore does not require nutrition intervention at this time. Orders Placed This Encounter Procedures ??? DIET CARBOHYDRATE COUNTING Standing Status: Standing Number of Occurrences: 1 ER DEPOSIT OPERATOR * Giovana Mayo, PhD - 12/11/2022 1:20 PM CSTAssociated Order(s): IP CONSULT TO PSYCHOLOGY [facility] Department of Psychology [address] [place] [address], [address] Floor, [place] [address] ) PEDIATRIC PSYCHOLOGY INPATIENT CONSULTATION Patient Name: Anaid Arzola Wing Patient : 2005 (17 year old) Date of Service: 12/11/2022 Start Time: 13:20 End Time: 13:45 Participants: Anaid and Dr. Giovana Mayo Type of Service: Inpatient Psychology Consultation - Abbreviated Patient was identified by name and . Informed Consent is obtained from patient for evaluation/treatment of adult patient. Informed consent includes an explanation of nature and purpose of assessment, confidentiality and limits thereof (suicidal/homicidal ideation, plan or intent as well as child abuse and/or neglect): Yes RECORD REVIEW: This psychologist spoke with the medical team and reviewed the patient's medical record. REASON FOR CONSULTATION: Anaid Dimas is a 17 year old female with a history of T1DM. She was admitted to [facility] on 12/10/2022 with DKA. Psychology consultation was requested by Isis Munguia MD due to concerns for low mood. This psychologist met with Anaid to assess need /interest in mental health resources. RECENT SYMPTOMS/BEHAVIORS: Tearful when talking about low mood over the last year. Did not feel comfortable talking about contributing factors. Had a past counselor who she reported was somewhat helpful. Mood: Anaid denied any other symptoms of depression except low mood and tearfulness. SI/HI: Anaid denied suicidal ideation and self harm when asked. DSM-5 ENCOUNTER DIAGNOSIS: No diagnosis can be given at this time. Anaid is experiencing sadness/low mood per report and observation, but she did not feel comfortable sharing more context about her emotional experience. THERAPIST INTERVENTIONS/CONCERNS ADDRESSED: Clinician asked if Anaid would be open to receiving resources for mental health help, and she agreed. Clinician left resources for community mental health clinics in Anaid's area. Anaid was also open to Clinician sharing her information with psychologist on diabetes service so that she could check in with her during next clinic visit. Anaid was forthright and expressing that she doesn't know for sure if she will be up to a visit with the psychologist and it will depend on how she is feeling that day. Clinician validated this and expressed that she will note this when sharing info with other psychologist. BEHAVIOR OBSERVATIONS & MENTAL STATUS: Appearance: Appeared her stated age. Height and weight: Average. Appropriately dressed / neatly groomed: Yes: In hospital gown. Age-Appropriate language/communication: Yes: Generally quiet but responsive. Interaction: Easily engaged, Cooperative, Guarded, Withdrawn and Quiet. Eye contact: Fair. Mood: anxious and sad. Affect: Mood-congruent, Tearful. Attention:Normal. Activity level: Appropriate. Compliance: moderate. Speech: soft. Thought processes: Clear/logical, goal-directed, relevant. Thought content: No evidence of hallucinations or delusions. Fear, unwanted thoughts: No evidence. Unusual habits / repetitive behavior: No evidence. Suicidal / homicidal ideation: Denied. Cognition: No significant deficits noted on observation. Insight: No significant deficits noted on observation. Judgement: No significant deficits noted on observation. RECOMMENDATIONS: 1. Psychologist on endocrine service will check in with Anaid and see if she'd like additional service at next clinic visit. 2. Anaid is encouraged to seek mental health services from her previous counselor or one of the providers in her community. DISPOSITION: These impressions and recommendations have been discussed with Anaid, as well as the medical team. The Anaid expressed understanding and agreement. TREATMENT PLAN: Anaid is to be discharged later today. Thank you for allowing me to participate in the care of this patient. Please call me with any questions or concerns at or ASCOM [id number]. It was a pleasure to meet with Anaid. Giovana Mayo,??PhD Clinical Psychology Postdoctoral Fellow [place] Provisional??License [id number] ASCOM: [id number] ER DEPOSIT OPERATOR Associated attestation - Subha Raymond, PhD - 12/11/2022 5:22 PM SOLDER DEPOSIT OPERATOR I have reviewed, supervised, edited, and confirmed all elements of the documented note initiated bythe Post Doctoral Fellow, as well as the indicated assessment and plan. I agree with the findings and plan as documented in the note below. Subha Raymond, PhD Clinical Psychologist [place] License #[id number] documented in this encounter ED Notes * Luigi Gil MD - 12/10/2022 5:03 PM CSTAssociated Order(s): Critical Care Provider contact with the patient: 12/10/2022 5:03 PM [facility] EMERGENCY DEPARTMENT Anaid Dimas [id number] History Chief Complaint Patient presents with ??? HIGH BLOOD SUGAR CG endocrine clinic calling in patient of thiers possible DKA large ketones hyperglycemic and vomiting Chief complaint narrative was entered by triage nurse, not by physician. I have read the resident/medical student/LABOR COMMISSIONER history. Unless appended by me below, I agree with findings as documented. HPI History provided per: Caregiver Anaid Dimas is a 17 year old female with a past medical history of IDDM who presents to the ED today for evaluation of progressively worsening N/V that began today. Pt experienced multiple episodes of emesis today, prompting today's visit. No other exacerbating or alleviating factors further specified. No other recent injuries or illnesses. All immunizations are up-to-date. No Known Allergies Past Medical History: Diagnosis Date ??? Diabetic ketoacidosis without coma associated with type 1 diabetes mellitus 03/03/2021 ??? NEGATIVE PAST MEDICAL HISTORY - SEE PROBLEM LIST Social History Socioeconomic History ??? Marital status: Single Spouse name: Not on file ??? Number of children: Not on file ??? Years of education: Not on file ??? Highest education level: Not on file Occupational History ??? Not on file Tobacco Use ??? Smoking status: Never ??? Smokeless tobacco: Never Vaping Use ??? Vaping Use: Never used Substance and Sexual Activity ??? Alcohol use: Never Alcohol/week: 0.0 standard drinks ??? Drug use: Never ??? Sexual activity: Not on file Other Topics Concern ??? Not on file Social History Narrative Anaid lives with mother and grandmother. Goes to father's every other weekend. She is in the 10th grade at [employer] and is achieving average grades, IEP. She has an in-tact diabetes managementplan for school. Anaid has good friends and for extracurricular activity Anaid enjoys social media and art. Anaid Dimas expresses feelings of acceptance regarding living with diabetes. Social Determinants of Health Financial Resource Strain: Not on file Food Insecurity: Not on file Transportation Needs: Not on file Stress: Not on file Housing Stability: Not on file Family History Problem Relation Name Age of Onset ??? Negative Family History Other DM, thyroid d/o Patient's Medications New Prescriptions No medications on file Previous Medications ACCU-CHEK FASTCLIX LANCETS Use for blood glucose monitoring 4-6 times/day. ACETONE,URINE, (KETOSTIX) STRIP Use as directed for urine ketone checks if blood sugar above 250 orif ill. Dispense one bottle for school and one for home. ACETONE,URINE, (KETOSTIX) STRIP Use as needed (use when blood sugar is greater than 250 or when ill. ) BASAGLAR KWIKPEN (BASAGLAR) PEN ADMINISTER 18 UNITS UNDER THE SKIN DAILY OR DIRECTED BLOOD GLUCOSE MONITORING SUPPL (ACCU-CHEK DRAKE SMARTVIEW) W/DEVICE KIT KIT Use for blood glucose monitoring. BLOOD GLUCOSE MONITORING SUPPL (Drik VERIO IQ SYSTEM) W/DEVICE KIT Use 1 kit as directed CONTINUOUS BLOOD GLUC SENSOR (DEXCOM G6 SENSOR) MISC CHANGE SENSOR EVERY 10 DAYS CONTINUOUS BLOOD GLUC TRANSMIT (DEXCOM G6 TRANSMITTER) MISC Use 1 Each Every 90 days GLUCAGON (BAQSIMI TWO PACK) 3 MG/DOSE POWD Lillian 1 Each into the nose as directed Administer 3 mg intranasally for severe low blood sugar GLUCAGON (GLUCAGON EMERGENCY) INJECTION Inject 1 mg into muscle as directed for severe low blood sugar reaction. INJECTION DEVICE-INSULIN (NOVOPEN ECHO) DEVICE Use for insulin delivery. INSULIN LISPRO (HUMALOG;ADMELOG) 100 UNIT/ML PEN Inject 0 (zero) Units to 10 (ten) Units subcutaneously 3 times daily before meals 1 unit for every 40 over 150 INSULIN LISPRO (HUMALOG;ADMELOG) 100 UNIT/ML PEN INJECT 1 UNIT FOR EVERY 5 CARBOHYDRATES, WITH A MAX OF 60 UNITS PER DAY. INSULIN PEN NEEDLE (BD PEN NEEDLE DRAKE U/F) 32G X 4 MM MISC Use 4-6 Each as directed Use for injections 4-6 times daily. INSULIN PEN NEEDLE (BD PEN NEEDLE DRAKE U/F) 32G X 4 MM MISC Use 4-6 Each once daily INSULIN SYRINGE-NEEDLE (BD ULTRAFINE II) 31G X 5/16 0.3 ML SYRINGE USE FOR INJECTION DAILY INSULIN SYRINGE-NEEDLE U-100 (SAFESNAP INSULIN SYRINGE) 30G X 5/16 0.5 ML MISC Use 1 syringe as directed ONETOUCH DELICA LANCETS 33G MISC Use 1 Each as directed To test blood sugar 4-7 times a day ONETOUCH VERIO TEST STRIP USE DIRECTED 5-9 TIMES DAILY. OXYBUTYNIN CR 24HR (DITROPAN-XL) 10 MG TABLET Take 1 (one) tablet by mouth at bedtime Modified Medications No medications on file Discontinued Medications No medications on file Review of Systems All relevant systems reviewed and all negative except as noted in resident/medical student/LABOR COMMISSIONER and attending HPI/ROS. Review of Systems Constitutional: Negative. HENT: Negative. Eyes: Negative. Respiratory: Negative. Cardiovascular: Negative. Gastrointestinal: Positive for nausea and vomiting. Genitourinary: Negative. Musculoskeletal: Negative. Skin: Negative. Neurological: Negative. Endo/Heme/Allergies: Negative. Psychiatric/Behavioral: Negative. Physical Exam I have reviewed the resident/medical student/LABOR COMMISSIONER physical exam. Unless appended by me below, I agreewith the PE as documented. Vitals: 12/10/22 1448 12/10/22 1600 12/10/22 1630 12/10/22 1700 BP: 118/60 130/65 Pulse: (!) 120 (!) 121 (!) 122 (!) 116 Resp: 16 31 25 30 Temp: 98.4 ??F (36.9 ??C) 98.3 ??F (36.8 ??C) SpO2: 99% 98% 99% 98% Weight: 51.4 kg (113 lb 5.1 oz) Height: 1.61 m (5' 3.39 ) Constitutional: Pt appears well-developed and well-nourished; tired but non- toxic in appearance in no acute distress Head: Normocephalic; atraumatic. Eyes: Conjunctivae are normal. ENT: Mucous membranes moist. Neck: Supple. Normal ROM. Cardiovascular: Good perfusion. Pulmonary: Normal respiratory effort. Abdominal: No distension. Extremities: Full ROM. Neurological: Pt is alert. Skin: No rash or lesions. Nursing notes and vitals reviewed. Procedures Critical Care Performed by: Luigi Gil MD Authorized by: Luigi Gil MD Critical care provider statement: Critical care time (minutes): 35 Critical care time was exclusive of: Separately billable procedures and treating other patients andteaching time Critical care was necessary to treat or prevent imminent or life-threatening deterioration of the following conditions: STORAGE GARAGE MANAGER failure or compromise, endocrine crisis, respiratory failure and shock Critical care was time spent personally by me on the following activities: Development of treatmentplan with patient or surrogate, discussions with consultants, evaluation of patient's response to treatment, examination of patient, obtaining history from patient or surrogate, ordering and performing treatments and interventions, ordering and review of laboratory studies, pulse oximetry, re-evaluation of patient's condition and review of old charts Labs/Orders Orders Placed This Encounter ??? BLOOD GAS VIRY+LYTES+METAB+COOX POC NOTIF ??? BASIC METABOLIC PANEL (CALCIUM TOTAL) ??? URINALYSIS W/MICROSCOPIC REFLEX TO CULTURE ??? lidocaine buffered 1-8.4 % injection 0.2 mL ??? DISCONTD: ondansetron (disintegrating) (Zofran ODT) tablet 4 mg ??? 0.9% NaCl IV BOLUS 1,000 mL ??? ondansetron (Zofran) injection 4 mg ??? 0.45% NaCl with potassium acetate 20 mEq/L, potassium phosphate 20 mEq/L INFUSION ??? dextrose 10 % with potassium acetate 20 mEq/L, potassium phosphate 20 mEq/L, NaCl (4mEq/ml) (Conc.Sodium Chloride) 0.45 % INFUSION ??? insulin regular human (MyXRedlin) 100 units in 100 mL premix infusion ??? insulin glargine (Lantus) vial 18 Units No orders to display Hospital Encounter on 12/10/22 BLOOD GAS VIRY+LYTES+METAB+COOX POC NOTIF Result Value Ref Range Comment Notification Label Only - See Separate Report BASIC METABOLIC PANEL (CALCIUM TOTAL) Result Value Ref Range BUN 24 7 - 26 mg/dL Creatinine 0.73 0.56 - 0.96 mg/dL Sodium 133 (L) 136 - 145 mmol/L Potassium 5.9 (H) 3.5 - 4.5 mmol/L Chloride 101 98 - 107 mmol/L CO2 8 (LL) 22 - 29 mmol/L Glucose 493 (HH) 70 - 115 mg/dL Calcium 10.2 8.4 - 10.2 mg/dL Anion Gap 30 (H) 8 - 18 BUN/Creatinine Ratio 33 (H) 7 - 23 Osmolality Calculated 302 (H) 270 - 300 mOsm/kg eGFR by CKD-EPI >90 >=90 mL/min/1.73 m2 URINALYSIS W/MICROSCOPIC REFLEX TO CULTURE Specimen: Urine Clean Catch Result Value Ref Range Color UA Straw Straw, Yellow Clarity UA Clear Clear Specific [place] UA 1.023 1.005 - 1.030 pH UA 5.0 5.0 - 8.0 pH Protein UA Negative Negative Glucose UA 3+ (Abnormal) Negative Ketone UA 2+ (Abnormal) Negative Bilirubin UA Negative Negative Blood UA 2+ (Abnormal) Negative Nitrite UA Negative Negative Leukocyte Esterase Negative Negative Urobilinogen UA Negative Negative mg/dL RBC UA 0-2 None Seen, 0-2, 3-5 /HPF WBC UA 0-5 None Seen, 0-5 /HPF Squamous Epithelial Cells UA 0-2 None Seen, 0-2, 3-5 /HPF GLUCOSE - POINT OF CARE Result Value Ref Range Glucose WB/POC 445 (H) 70 - 106 mg/dL Specimen Type Cap Fingerstick BLOOD GAS+COOX+LYTES+METAB VENOUS POCT Result Value Ref Range pH Venous 7.11 (LL) 7.32 - 7.42 pH pO2 Venous 54 (H) 35 - 40 mmHg pCO2 Venous 32 (L) 40 - 50 mmHg HCO3 Venous 10.2 (L) 20 - 30 mmol/L Base Excess Venous -18.2 (L) -2.0 - 2.0 mmol/L Oxyhemoglobin Venous 75.9 % Deoxyhemoglobin (HHB) Venous % 22.1 % Methemoglobin 1.1 0.0 - 2.0 % Carboxyhemoglobin 1.0 0.0 - 2.0 % O2 Content Venous 15.9 Interpret within clinical context ml/dL Hemoglobin by COOX 14.9 12.0 - 16.0 g/dL O2 Saturation Venous 77 >=70 % Sodium Whole Blood 132 (L) 135 - 145 mmol/L Potassium Whole Blood 5.8 (H) 3.5 - 5.5 mmol/L Chloride WB 98 (L) 101 - 111 mmol/L Calcium Ionized 1.21 mmol/L Ionized Calcium pH Adjusted 1.07 (L) 1.19 - 1.34 mmol/L Anion Gap (AG) Arterial 30 (H) 8 - 18 mmol/L Glucose WB 552 (HH) 70 - 105 mg/dL Lactic Acid Whole Blood 6.3 (HH) <=2.0 mmol/L GLUCOSE - POINT OF CARE Result Value Ref Range Glucose WB/POC 416 (H) 70 - 106 mg/dL Specimen Type Cap Fingerstick GLUCOSE - POINT OF CARE Result Value Ref Range Glucose WB/POC 421 (H) 70 - 106 mg/dL Specimen Type Cap Fingerstick ED Course Initial Assessment & Plan: 17 year old female with a PMHx of IDDM with a Hx of DKA in the past presenting to the ED for concerns of N/V and a high BS. Following DKA protocol, will obtain labs andprovide Zofran with IV fluid bolus; plan to re-evaluate. 15:40 pH 7.11, PCO2 32 and BD -19. Pt is in DKA, requiring admission to the TCU for Insulin drip, will d/w endocrine. 17:11 Endocrine do not require additional labs at this time and agree to admission. Will plan so accordingly. 18:25 PM I/we discussed with the floor team the need for admission for further evaluation and treatment. The patient/family express understanding and agreement with the plan. Medical Decision Making Medical Decision Making Diabetic ketoacidosis without coma associated with type 1 diabetes mellitus (CMS/HCC): acute illness or injury Amount and/or Complexity of Data Reviewed Independent Historian: parent Labs: ordered. Decision-making details documented in ED Course. Discussion of management or test interpretation with external provider(s): We discussed with and consulted endocrinology to discuss management of DKA and admission to their service. Risk Prescription drug management. Decision regarding hospitalization. The total time providing critical care (excluding time spent for procedures) was: 35 minutes. Clinical Impression and Disposition Final Diagnosis: Final diagnoses: Diabetic ketoacidosis without coma associated with type 1 diabetes mellitus (CMS/HCC) Disposition: Admit to Floor 12/10/2022 18:25 PM Scribe Attestation By signing my name below, I, David Reese, attest that this documentation has been prepared under the direction and in the presence of Dr. Gil Electronically Signed: David Reese 12/10/2022 5:03 PM Provider Attestation I, Dr. Gil, personally performed the services described in this documentation. All medical record entries made by the scribe were at my direction and in my presence. I have reviewed the chart and agree that the record reflects my personal performance and is accurate and complete. I have fully participated in the care of this patient. I have reviewed all pertinent clinical information availableto me during this encounter, including history, physical exam and plan. I have reviewed nursing notes, vital signs, available labs and radiographic studies. With respect to physicians in training andmid- level providers, I, Dr. Gil, agree with the assessment and plan except if revised in my note. ER DEPOSIT OPERATOR * Lenora Palencia MD - 12/10/2022 3:20 PM CST [facility] [id number] ED Encounter Note A ehusmegrh-ro-edebuukc working with a supervising attending writes the following note. As such, the note will be abbreviated specifying sexton portions of the ED encounter. A more complete note of the ED encounter from the supervising attending physician can be found in the medical record. HISTORY Provider contact with the patient: 12/10/2022 Anaid Dimas [id number] Chief Complaint Patient presents with ??? HIGH BLOOD SUGAR endocrine clinic calling in patient of ralph possible DKA large ketones hyperglycemic and vomiting The chief complaint narrative was entered by a triage nurse, not by physician. HPI I have discussed the HPI documented in the supervisory provider's note, unless otherwise stated below. REVIEW OF SYSTEMS I have discussed the ROS documented in supervisory provider's note, unless otherwise stated below. PHYSICAL EXAM I have discussed the PE documented in supervisory provider's note. Pertinent physical exam findingsstated below. Physical Exam Constitutional: General: She is not in acute distress. Appearance: She is not toxic-appearing. HENT: Head: Normocephalic. Right Ear: External ear normal. Left Ear: External ear normal. Nose: Nose normal. Mouth/Throat: Mouth: Mucous membranes are moist. Pharynx: Oropharynx is clear. No oropharyngeal exudate. Eyes: Extraocular Movements: Extraocular movements intact. Conjunctiva/sclera: Conjunctivae normal. Pupils: Pupils are equal, round, and reactive to light. Cardiovascular: Rate and Rhythm: Normal rate and regular rhythm. Pulmonary: Effort: Pulmonary effort is normal. No respiratory distress. Abdominal: General: Abdomen is flat. There is no distension. Palpations: Abdomen is soft. Tenderness: There is no abdominal tenderness. Musculoskeletal: General: Normal range of motion. Cervical back: Normal range of motion. Lymphadenopathy: Cervical: No cervical adenopathy. Skin: General: Skin is warm. Capillary Refill: Capillary refill takes less than 2 seconds. Neurological: General: No focal deficit present. Mental Status: She is alert and oriented to person, place, and time. Mental status is at baseline. PE: BP 120/74 Pulse (!) 117 Temp 97.9 ??F (36.6 ??C) (Oral) Resp 19 Ht 1.61 m (5' 3.39 ) Wt 51.4 kg (113 lb 5.1 oz) SpO2 100% PROCEDURE Procedures LABS/ORDERS Orders Placed This Encounter ??? BLOOD GAS VIRY+LYTES+METAB+COOX POC NOTIF ??? BASIC METABOLIC PANEL (CALCIUM TOTAL) ??? URINALYSIS W/MICROSCOPIC REFLEX TO CULTURE ??? BASIC METABOLIC PANEL (CALCIUM TOTAL) ??? KETONES QUALITATIVE URINE AUTO ??? POTASSIUM BLOOD ??? IP CONSULT TO NUTRITIONAL SERV ??? lidocaine buffered 1-8.4 % injection 0.2 mL ??? DISCONTD: ondansetron (disintegrating) (Zofran ODT) tablet 4 mg ??? 0.9% NaCl IV BOLUS 1,000 mL ??? ondansetron (Zofran) injection 4 mg ??? 0.45% NaCl with potassium acetate 20 mEq/L, potassium phosphate 20 mEq/L INFUSION ??? dextrose 10 % with potassium acetate 20 mEq/L, potassium phosphate 20 mEq/L, NaCl (4mEq/ml) (Conc.Sodium Chloride) 0.45 % INFUSION ??? insulin regular human (MyXRedlin) 100 units in 100 mL premix infusion ??? insulin glargine (Lantus) vial 18 Units No orders to display Hospital Encounter on 12/10/22 BLOOD GAS VIRY+LYTES+METAB+COOX POC NOTIF Result Value Ref Range Comment Notification Label Only - See Separate Report BASIC METABOLIC PANEL (CALCIUM TOTAL) Result Value Ref Range BUN 24 7 - 26 mg/dL Creatinine 0.73 0.56 - 0.96 mg/dL Sodium 133 (L) 136 - 145 mmol/L Potassium 5.9 (H) 3.5 - 4.5 mmol/L Chloride 101 98 - 107 mmol/L CO2 8 (LL) 22 - 29 mmol/L Glucose 493 (HH) 70 - 115 mg/dL Calcium 10.2 8.4 - 10.2 mg/dL Anion Gap 30 (H) 8 - 18 BUN/Creatinine Ratio 33 (H) 7 - 23 Osmolality Calculated 302 (H) 270 - 300 mOsm/kg eGFR by CKD-EPI >90 >=90 mL/min/1.73 m2 URINALYSIS W/MICROSCOPIC REFLEX TO CULTURE Specimen: Urine Clean Catch Result Value Ref Range Color UA Straw Straw, Yellow Clarity UA Clear Clear Specific [place] UA 1.023 1.005 - 1.030 pH UA 5.0 5.0 - 8.0 pH Protein UA Negative Negative Glucose UA 3+ (Abnormal) Negative Ketone UA 2+ (Abnormal) Negative Bilirubin UA Negative Negative Blood UA 2+ (Abnormal) Negative Nitrite UA Negative Negative Leukocyte Esterase Negative Negative Urobilinogen UA Negative Negative mg/dL RBC UA 0-2 None Seen, 0-2, 3-5 /HPF WBC UA 0-5 None Seen, 0-5 /HPF Squamous Epithelial Cells UA 0-2 None Seen, 0-2, 3-5 /HPF BASIC METABOLIC PANEL (CALCIUM TOTAL) Result Value Ref Range BUN 26 7 - 26 mg/dL Creatinine 0.66 0.56 - 0.96 mg/dL Sodium 137 136 - 145 mmol/L Potassium 6.0 (H) 3.5 - 4.5 mmol/L Chloride 107 98 - 107 mmol/L CO2 9 (LL) 22 - 29 mmol/L Glucose 367 (H) 70 - 115 mg/dL Calcium 9.6 8.4 - 10.2 mg/dL Anion Gap 27 (H) 8 - 18 BUN/Creatinine Ratio 39 (H) 7 - 23 Osmolality Calculated 304 (H) 270 - 300 mOsm/kg eGFR by CKD-EPI >90 >=90 mL/min/1.73 m2 KETONES QUALITATIVE URINE AUTO Result Value Ref Range Ketone UA 2+ (Abnormal) Negative GLUCOSE - POINT OF CARE Result Value Ref Range Glucose WB/POC 445 (H) 70 - 106 mg/dL Specimen Type Cap Fingerstick BLOOD GAS+COOX+LYTES+METAB VENOUS POCT Result Value Ref Range pH Venous 7.11 (LL) 7.32 - 7.42 pH pO2 Venous 54 (H) 35 - 40 mmHg pCO2 Venous 32 (L) 40 - 50 mmHg HCO3 Venous 10.2 (L) 20 - 30 mmol/L Base Excess Venous -18.2 (L) -2.0 - 2.0 mmol/L Oxyhemoglobin Venous 75.9 % Deoxyhemoglobin (HHB) Venous % 22.1 % Methemoglobin 1.1 0.0 - 2.0 % Carboxyhemoglobin 1.0 0.0 - 2.0 % O2 Content Venous 15.9 Interpret within clinical context ml/dL Hemoglobin by COOX 14.9 12.0 - 16.0 g/dL O2 Saturation Venous 77 >=70 % Sodium Whole Blood 132 (L) 135 - 145 mmol/L Potassium Whole Blood 5.8 (H) 3.5 - 5.5 mmol/L Chloride WB 98 (L) 101 - 111 mmol/L Calcium Ionized 1.21 mmol/L Ionized Calcium pH Adjusted 1.07 (L) 1.19 - 1.34 mmol/L Anion Gap (AG) Arterial 30 (H) 8 - 18 mmol/L Glucose WB 552 (HH) 70 - 105 mg/dL Lactic Acid Whole Blood 6.3 (HH) <=2.0 mmol/L GLUCOSE - POINT OF CARE Result Value Ref Range Glucose WB/POC 416 (H) 70 - 106 mg/dL Specimen Type Cap Fingerstick GLUCOSE - POINT OF CARE Result Value Ref Range Glucose WB/POC 421 (H) 70 - 106 mg/dL Specimen Type Cap Fingerstick GLUCOSE - POINT OF CARE Result Value Ref Range Glucose WB/POC 465 (HH) 70 - 106 mg/dL Specimen Type Cap Fingerstick GLUCOSE - POINT OF CARE Result Value Ref Range Glucose WB/POC 368 (H) 70 - 106 mg/dL Specimen Type Cap Fingerstick GLUCOSE - POINT OF CARE Result Value Ref Range Glucose WB/POC 338 (H) 70 - 106 mg/dL Specimen Type Cap Fingerstick ED COURSE Anaid Dimas is a 17 year old female with Hx of T1DM presenting with: -N/V, ALVAREZ, myalgias that began yesterday. Nausea and NBNB vomiting has worsened. Unable to keep fluids or food down. Took Tylenol, Ibuprofen but this didn't help. Last meal yesterday. Last insulin around lunch time yesterday. No Lantus yesterday or today. Otherwise reports good compliance with insulin regimen. -Sister with stomach bug the past few days. Grandma also had COVID last week. -Has required PICU stay in the past for DKA. Last hospitalization in February 2021. Last saw endo in October 2022. Hgb A1C increased at that time to 9.7%. Differential Diagnoses: DKA vs. Viral gastro vs. Other viral syndrome Clinical Impressions as of 12/10/222058 Diabetic ketoacidosis without coma associated with type 1 diabetes mellitus (CMS/HCC) ED Management: -NS bolus, Zofran given. Initial labs consistent with DKA. Spoke to endocrinology. Will admit to [facility] and start insulin drip and 2 bag system at 2.5 L/m2. Will also give dose of Lantus. Medical Decision Making Diabetic ketoacidosis without coma associated with type 1 diabetes mellitus (CMS/HCC): acute illness or injury Amount and/or Complexity of Data Reviewed Independent Historian: parent Labs: ordered. Risk Prescription drug management. Decision regarding hospitalization. CLINICAL IMPRESSIONS AND DISPOSITION Final Diagnosis: Final diagnoses: Diabetic ketoacidosis without coma associated with type 1 diabetes mellitus (CMS/HCC) Disposition: Admit ER DEPOSIT OPERATOR documented in this encounter Plan of Treatment Not on file documented as of this encounter Procedures Procedure Name Priority Date/Time Associated Diagnosis Comments GLUCOSE - POINT OF CARE Routine 12/11/2022 1:29 PM SOLDER DEPOSIT OPERATOR KETONES QUALITATIVE URINE AUTO Routine 12/11/2022 12:33 PM SOLDER DEPOSIT OPERATOR GLUCOSE - POINT OF CARE Routine 12/11/2022 8:59 AM SOLDER DEPOSIT OPERATOR KETONES QUALITATIVE URINE AUTO Routine 12/11/2022 8:04 AM SOLDER DEPOSIT OPERATOR BASIC METABOLIC PANEL (CALCIUM TOTAL) Timed 12/11/2022 7:57 AM SOLDER DEPOSIT OPERATOR GLUCOSE - POINT OF CARE Routine 12/11/2022 7:55 AM SOLDER DEPOSIT OPERATOR GLUCOSE - POINT OF CARE Routine 12/11/2022 7:03 AM SOLDER DEPOSIT OPERATOR GLUCOSE - POINT OF CARE Routine 12/11/2022 6:43 AM SOLDER DEPOSIT OPERATOR GLUCOSE - POINT OF CARE Routine 12/11/2022 5:38 AM SOLDER DEPOSIT OPERATOR GLUCOSE - POINT OF CARE Routine 12/11/2022 4:27 AM SOLDER DEPOSIT OPERATOR BASIC METABOLIC PANEL (CALCIUM TOTAL) Timed 12/11/2022 3:58 AM SOLDER DEPOSIT OPERATOR GLUCOSE - POINT OF CARE Routine 12/11/2022 3:29 AM SOLDER DEPOSIT OPERATOR GLUCOSE - POINT OF CARE Routine 12/11/2022 2:26 AM SOLDER DEPOSIT OPERATOR GLUCOSE - POINT OF CARE Routine 12/11/2022 1:22 AM SOLDER DEPOSIT OPERATOR GLUCOSE - POINT OF CARE Routine 12/11/2022 12:20 AM SOLDER DEPOSIT OPERATOR BASIC METABOLIC PANEL (CALCIUM TOTAL) Timed 12/11/2022 12:16 AM SOLDER DEPOSIT OPERATOR GLUCOSE - POINT OF CARE Routine 12/10/2022 11:40 PM SOLDER DEPOSIT OPERATOR GLUCOSE - POINT OF CARE Routine 12/10/2022 10:41 PM SOLDER DEPOSIT OPERATOR POTASSIUM BLOOD STAT 12/10/2022 10:01 PM SOLDER DEPOSIT OPERATOR GLUCOSE - POINT OF CARE Routine 12/10/2022 9:35 PM SOLDER DEPOSIT OPERATOR GLUCOSE - POINT OF CARE Routine 12/10/2022 8:37 PM SOLDER DEPOSIT OPERATOR KETONES QUALITATIVE URINE AUTO STAT 12/10/2022 8:01 PM SOLDER DEPOSIT OPERATOR BASIC METABOLIC PANEL (CALCIUM TOTAL) Timed 12/10/2022 8:01 PM SOLDER DEPOSIT OPERATOR GLUCOSE - POINT OF CARE Routine 12/10/2022 7:38 PM SOLDER DEPOSIT OPERATOR GLUCOSE - POINT OF CARE Routine 12/10/2022 6:22 PM SOLDER DEPOSIT OPERATOR GLUCOSE - POINT OF CARE Routine 12/10/2022 5:05 PM SOLDER DEPOSIT OPERATOR ED CRITICAL CARE Routine 12/10/2022 5:03 PM SOLDER DEPOSIT OPERATOR GLUCOSE - POINT OF CARE Routine 12/10/2022 3:58 PM SOLDER DEPOSIT OPERATOR BLOOD GAS+COOX+LYTES+METAB VENOUS POCT Routine 12/10/2022 3:37 PM SOLDER DEPOSIT OPERATOR BLOOD GAS VIRY+LYTES+METAB+COOX POC NOTIF STAT 12/10/2022 3:35 PM SOLDER DEPOSIT OPERATOR BASIC METABOLIC PANEL (CALCIUM TOTAL) STAT 12/10/2022 3:35 PM SOLDER DEPOSIT OPERATOR URINALYSIS W/MICROSCOPIC REFLEX TO CULTURE STAT 12/10/2022 3:31 PM SOLDER DEPOSIT OPERATOR GLUCOSE - POINT OF CARE Routine 12/10/2022 2:40 PM SOLDER DEPOSIT OPERATOR documented in this encounter Results * (ABNORMAL) GLUCOSE - POINT OF CARE (12/11/2022 1:29 PM SOLDER DEPOSIT OPERATOR) Glucose WB/POC 170(H) 70 - 106 mg/dL 12/11/2022 1:36 PM SOLDER DEPOSIT OPERATOR [facility] Specimen Type Cap Fingerstick 2022 1:36 PM SOLDER DEPOSIT OPERATOR [facility] Blood BLOOD SPECIMEN / Unknown 12/11/2022 1:29 PM SOLDER DEPOSIT OPERATOR 12/11/2022 1:36 PM SOLDER DEPOSIT OPERATOR Isis Munguia MD LAB - POINT OF CARE ORDERABLES Performing Organization Address City/[facility]/ZIP Co de Phone Number [place] [phone] [place] [phone] * (ABNORMAL) KETONES QUALITATIVE URINE AUTO (12/11/2022 12:33 PM SOLDER DEPOSIT OPERATOR) Pathologist [facility] Ketone UA Trace(A) Negative 12/11/2022 12:49 PM SOLDER DEPOSIT OPERATOR [facility] Urine URINE / Unknown Collection / Unknown 12/11/2022 12:33 PM SOLDER DEPOSIT OPERATOR 12/11/2022 12:41 PM SOLDER DEPOSIT OPERATOR Narrative [facility] - 12/11/2022 12:49 PM SOLDER DEPOSIT OPERATOR Luigi Gil MD LAB - URINALYSIS ORD ERABLES Performing Organization Address City/[facility]/ZIP Co de Phone Number [facility] [address] [place] [address], [facility] [phone] * (ABNORMAL) GLUCOSE - POINT OF CARE (12/11/2022 8:59 AM SOLDER DEPOSIT OPERATOR) Glucose WB/POC 232(H) 70 - 106 mg/dL 12/11/2022 9:02 AM SOLDER DEPOSIT OPERATOR [facility] Specimen Type Cap Fingerstick 2022 9:02 AM SOLDER DEPOSIT OPERATOR [facility] Blood BLOOD SPECIMEN / Unknown 12/11/2022 8:59 AM SOLDER DEPOSIT OPERATOR 12/11/2022 9:02 AM SOLDER DEPOSIT OPERATOR Isis Munguia MD LAB - POINT OF CARE ORDERABLES [facility] [address] [place] [address] * (ABNORMAL) KETONES QUALITATIVE URINE AUTO (12/11/2022 8:04 AM SOLDER DEPOSIT OPERATOR) Ketone UA 1+(A) Negative 12/11/2022 8:[address] [facility] Urine URINE / Unknown Collection / Unknown 12/11/2022 8:04 AM SOLDER DEPOSIT OPERATOR 12/11/2022 8:15 AM SOLDER DEPOSIT OPERATOR Luigi Gil MD LAB - URINALYSIS ORD ERABLES Performing Organization Address City/[facility]/ZIP Co de Phone Number [facility] [address] [place] [address], [facility] [phone] * (ABNORMAL) BASIC METABOLIC PANEL (CALCIUM TOTAL) (12/11/2022 7:57 AM SOLDER DEPOSIT OPERATOR) Pathologist [facility] BUN 16 7 - 26 mg/dL 12/11/2022 8:[address] [facility] Creatinine 0.65 0.56 - 0.96 mg/dL 12/11/2022 8:[address] [facility] Sodium 136 136 - 145 mmol/L 12/11/2022 8:[address] [facility] Potassium 4.3 3.5 - 4.5 mmol/L 12/11/2022 8:[address] [facility] Chloride 107 98 - 107 mmol/L 12/11/2022 8:[address] [facility] CO2 17(L) 22 - 29 mmol/L 12/11/2022 8:[address] [facility] Glucose 242(H) 70 - 115 mg/dL 12/11/2022 8:[address] [facility] Calcium 8.9 8.4 - 10.2 mg/dL 12/11/2022 8:[address] [facility] Anion Gap 16 8 - 18 12/11/2022 8:[address] [facility] BUN/Creatinine Ratio 25(H) 7 - 23 12/11/2022 8:[address] [facility] Osmolality Calculated 291 270 - 300 mOsm/kg 12/11/2022 8:[address] [facility] eGFR by CKD-EPI >90 >=90 mL/min/1.7 3 m2 12/11/2022 8:[address] [facility] Blood BLOOD SPECIMEN / Unknown Lab Venipuncture / Unknown 12/11/2022 7:57 AM SOLDER DEPOSIT OPERATOR 12/11/2022 8:13 AM SOLDER DEPOSIT OPERATOR Luigi Gil MD LAB - CHEMISTRY MANJULA ZHAO [facility] [address] [place] [address], [facility] [phone] * (ABNORMAL) GLUCOSE - POINT OF CARE (12/11/2022 7:55 AM SOLDER DEPOSIT OPERATOR) Glucose WB/POC 219(H) 70 - 106 mg/dL 12/11/2022 7:58 AM SOLDER DEPOSIT OPERATOR [facility] Specimen Type Venous 12/11/2022 7:58 AM SOLDER DEPOSIT OPERATOR [facility] Blood BLOOD SPECIMEN / Unknown 12/11/2022 7:55 AM SOLDER DEPOSIT OPERATOR 12/11/2022 7:58 AM SOLDER DEPOSIT OPERATOR Isis Munguia MD LAB - POINT OF CARE ORDERABLES [facility] [address] [place] [address] * (ABNORMAL) GLUCOSE - POINT OF CARE (12/11/2022 7:03 AM SOLDER DEPOSIT OPERATOR) Glucose WB/POC 176(H) 70 - 106 mg/dL 12/11/2022 7:10 AM SOLDER DEPOSIT OPERATOR [facility] Specimen Type Cap Fingerstick 2022 7:10 AM SOLDER DEPOSIT OPERATOR [facility] Blood BLOOD SPECIMEN / Unknown 12/11/2022 7:03 AM SOLDER DEPOSIT OPERATOR 12/11/2022 7:10 AM SOLDER DEPOSIT OPERATOR Isis Munguia MD LAB - POINT OF CARE ORDERABLES [facility] [address] [place] [phone] * GLUCOSE - POINT OF CARE (12/11/2022 6:43 AM SOLDER DEPOSIT OPERATOR) Glucose WB/POC 106 70 - 106 mg/dL 12/11/2022 6:49 AM SOLDER DEPOSIT OPERATOR [facility] Specimen Type Cap Fingerstick 2022 6:49 AM SOLDER DEPOSIT OPERATOR [facility] Blood BLOOD SPECIMEN / Unknown 12/11/2022 6:43 AM SOLDER DEPOSIT OPERATOR 12/11/2022 6:49 AM SOLDER DEPOSIT OPERATOR Isis Munguia MD LAB - POINT OF CARE ORDERABLES Performing Organization Address City/[facility]/ZIP Co de Phone Number [facility] [address] [place] [phone] * (ABNORMAL) GLUCOSE - POINT OF CARE (12/11/2022 5:38 AM SOLDER DEPOSIT OPERATOR) Glucose WB/POC 125(H) 70 - 106 mg/dL 12/11/2022 6:49 AM SOLDER DEPOSIT OPERATOR [facility] Specimen Type Cap Fingerstick 2022 6:49 AM [facility] Blood BLOOD SPECIMEN / Unknown 12/11/2022 5:38 AM SOLDER DEPOSIT OPERATOR 12/11/2022 6:49 AM SOLDER DEPOSIT OPERATOR Isis Munguia MD LAB - POINT OF CARE ORDERABLES [facility] [address] [place] [address] * (ABNORMAL) GLUCOSE - POINT OF CARE (12/11/2022 4:27 AM SOLDER DEPOSIT OPERATOR) Glucose WB/POC 181(H) 70 - 106 mg/dL 12/11/2022 4:34 AM [facility] Specimen Type Cap Fingerstick 2022 4:34 AM [facility] Blood BLOOD SPECIMEN / Unknown 12/11/2022 4:27 AM SOLDER DEPOSIT OPERATOR 12/11/2022 4:34 AM SOLDER DEPOSIT OPERATOR Isis Munguia MD LAB - POINT OF CARE ORDERABLES [facility] [place] [address] * (ABNORMAL) BASIC METABOLIC PANEL (CALCIUM TOTAL) (12/11/2022 3:58 AM SOLDER DEPOSIT OPERATOR) BUN 17 7 - 26 mg/dL 12/11/2022 4:[address] [facility] Creatinine 0.63 0.56 - 0.96 mg/dL 12/11/2022 4:[address] [facility] Sodium 137 136 - 145 mmol/L 12/11/2022 4:[address] [facility] Potassium 4.2 3.5 - 4.5 mmol/L 12/11/2022 4:[address] [facility] Chloride 109(H) 98 - 107 mmol/L 12/11/2022 4:[address] [facility] CO2 18(L) 22 - 29 mmol/L 12/11/2022 4:[address] [facility] Glucose 186(H) 70 - 115 mg/dL 12/11/2022 4:[address] [facility] Calcium 9.1 8.4 - 10.2 mg/dL 12/11/2022 4:[address] [facility] Anion Gap 14 8 - 18 12/11/2022 4:[address] [facility] BUN/Creatinine Ratio 27(H) 7 - 23 12/11/2022 4:[address] [facility] Osmolality Calculated 290 270 - 300 mOsm/kg 12/11/2022 4:[address] [facility] eGFR by CKD-EPI >90 >=90 mL/min/1.7 3 m2 12/11/2022 4:[address] [facility] Blood BLOOD SPECIMEN / Unknown Lab Venipuncture / Unknown 12/11/2022 3:58 AM SOLDER DEPOSIT OPERATOR 12/11/2022 4:19 AM SOLDER DEPOSIT OPERATOR Luigi Gil MD LAB - CHEMISTRY MANJULA ZHAO [facility] [address] [place] [address], [facility] [phone] * (ABNORMAL) GLUCOSE - POINT OF CARE (12/11/2022 3:29 AM SOLDER DEPOSIT OPERATOR) Glucose WB/POC 188(H) 70 - 106 mg/dL 12/11/2022 3:35 AM SOLDER DEPOSIT OPERATOR [facility] Specimen Type Cap Fingerstick 2022 3:35 AM SOLDER DEPOSIT OPERATOR [facility] Blood BLOOD SPECIMEN / Unknown 12/11/2022 3:29 AM SOLDER DEPOSIT OPERATOR 12/11/2022 3:35 AM SOLDER DEPOSIT OPERATOR Isis Munguia MD LAB - POINT OF CARE ORDERABLES [facility] [address] [place] [phone] * (ABNORMAL) GLUCOSE - POINT OF CARE (12/11/2022 2:26 AM SOLDER DEPOSIT OPERATOR) Glucose WB/POC 208(H) 70 - 106 mg/dL 12/11/2022 2:33 AM SOLDER DEPOSIT OPERATOR [facility] Specimen Type Cap Fingerstick 2022 2:33 AM SOLDER DEPOSIT OPERATOR [facility] Blood BLOOD SPECIMEN / Unknown 12/11/2022 2:26 AM SOLDER DEPOSIT OPERATOR 12/11/2022 2:33 AM SOLDER DEPOSIT OPERATOR Isis Munguia MD LAB - POINT OF CARE ORDERABLES [facility] [address] [place] [address] * (ABNORMAL) GLUCOSE - POINT OF CARE (12/11/2022 1:22 AM SOLDER DEPOSIT OPERATOR) Glucose WB/POC 219(H) 70 - 106 mg/dL 12/11/2022 1:28 AM SOLDER DEPOSIT OPERATOR [facility] Specimen Type Cap Fingerstick 2022 1:28 AM SOLDER DEPOSIT OPERATOR [facility] Blood BLOOD SPECIMEN / Unknown 12/11/2022 1:22 AM SOLDER DEPOSIT OPERATOR 12/11/2022 1:28 AM SOLDER DEPOSIT OPERATOR Isis Munguia MD LAB - POINT OF CARE ORDERABLES Performing Organization Address City/[facility]/ZIP Co de Phone Number [facility] [address] [place] [id number] * (ABNORMAL) GLUCOSE - POINT OF CARE (12/11/2022 12:20 AM SOLDER DEPOSIT OPERATOR) Pathologist [facility] Glucose WB/POC 233(H) 70 - 106 mg/dL 12/11/2022 12:27 AM [facility] Specimen Type Venous 12/11/2022 12:27 AM [facility] Blood BLOOD SPECIMEN / Unknown 12/11/2022 12:20 AM SOLDER DEPOSIT OPERATOR 12/11/2022 12:27 AM SOLDER DEPOSIT OPERATOR Isis Munguia MD LAB - POINT OF CARE ORDERABLES Performing Organization Address [facility] Co de Phone Number [facility] [address] [place] [phone] * (ABNORMAL) BASIC METABOLIC PANEL (CALCIUM TOTAL) (12/11/2022 12:16 AM SOLDER DEPOSIT OPERATOR) Pathologist [facility] BUN 20 7 - 26 mg/dL 12/11/2022 12:51 AM [facility] Creatinine 0.65 0.56 - 0.96 mg/dL 12/11/2022 12:51 AM [facility] Sodium 134(L) 136 - 145 mmol/L 12/11/2022 12:[address] [facility] Potassium 4.6(H) 3.5 - 4.5 mmol/L 12/11/2022 12:[address] [facility] Chloride 107 98 - 107 mmol/L 12/11/2022 12:[address] [facility] CO2 14(L) 22 - 29 mmol/L 12/11/2022 12:[address] [facility] Glucose 250(H) 70 - 115 mg/dL 12/11/2022 12:[address] [facility] Calcium 9.2 8.4 - 10.2 mg/dL 12/11/2022 12:[address] [facility] Anion Gap 18 8 - 18 12/11/2022 12:[address] [facility] BUN/Creatinine Ratio 31(H) 7 - 23 12/11/2022 12:[address] [facility] Osmolality Calculated 289 270 - 300 mOsm/kg 12/11/2022 12:[address] [facility] eGFR by CKD-EPI >90 >=90 mL/min/1.7 3 m2 12/11/2022 12:[address] [facility] Blood BLOOD SPECIMEN / Unknown Venipuncture / Unknown 12/11/2022 12:16 AM SOLDER DEPOSIT OPERATOR 12/11/2022 12:24 AM SOLDER DEPOSIT OPERATOR Luigi Gil MD LAB - CHEMISTRY MANJULA ZHAO [facility] [address] [place] [address], [facility] [phone] * (ABNORMAL) GLUCOSE - POINT OF CARE (12/10/2022 11:40 PM SOLDER DEPOSIT OPERATOR) Glucose WB/POC 255(H) 70 - 106 mg/dL 12/10/2022 11:47 PM SOLDER DEPOSIT OPERATOR [facility] Specimen Type Cap Fingerstick 2022 11:47 PM [facility] Blood BLOOD SPECIMEN / Unknown 12/10/2022 11:40 PM SOLDER DEPOSIT OPERATOR 12/10/2022 11:47 PM SOLDER DEPOSIT OPERATOR Isis Munguia MD LAB - POINT OF CARE ORDERABLES [facility] [address] [place] [address] * (ABNORMAL) GLUCOSE - POINT OF CARE (12/10/2022 10:41 PM SOLDER DEPOSIT OPERATOR) Glucose WB/POC 294(H) 70 - 106 mg/dL 12/10/2022 10:48 PM SOLDER DEPOSIT OPERATOR [facility] Specimen Type Cap Fingerstick 2022 10:48 PM SOLDER DEPOSIT OPERATOR [facility] Blood BLOOD SPECIMEN / Unknown 12/10/2022 10:41 PM SOLDER DEPOSIT OPERATOR 12/10/2022 10:48 PM SOLDER DEPOSIT OPERATOR Isis Munguia MD LAB - POINT OF CARE ORDERABLES Performing Organization Address [facility]/ZIP Co de Phone Number [facility] [address] [place] [phone] * (ABNORMAL) POTASSIUM BLOOD (12/10/2022 10:01 PM SOLDER DEPOSIT OPERATOR) [facility] Potassium 5.0(H) 3.5 - 4.5 mmol/L 12/10/2022 10:30 PM SOLDER DEPOSIT OPERATOR [facility] Comment:Hemolysis detected i n this specimen. Hemolysis may cause false elevations in potassium leading to pseudohyperkalemia or masked hypokalemia. Recommend repeat testing if clinically indicated. Blood BLOOD SPECIMEN / Unknown Lab Venipuncture / Unknown 12/10/2022 10:01 PM SOLDER DEPOSIT OPERATOR 12/10/2022 10:07 PM SOLDER DEPOSIT OPERATOR Luigi Gil MD LAB - CHEMISTRY MANJULA ZHAO Performing Organization Address [facility]/ZIP Co de Phone Number [facility] [address] [place] [address], [facility] [phone] * (ABNORMAL) GLUCOSE - POINT OF CARE (12/10/2022 9:35 PM SOLDER DEPOSIT OPERATOR) [facility] Glucose WB/POC 273(H) 70 - 106 mg/dL 12/10/2022 9:42 PM SOLDER DEPOSIT OPERATOR [facility] Specimen Type Cap Fingerstick 2022 9:42 PM SOLDER DEPOSIT OPERATOR [facility] Blood BLOOD SPECIMEN / Unknown 12/10/2022 9:35 PM SOLDER DEPOSIT OPERATOR 12/10/2022 9:42 PM SOLDER DEPOSIT OPERATOR Isis Munguia MD LAB - POINT OF CARE ORDERABLES Performing Organization Address [facility]/ZIP Co de Phone Number [facility] [address] [place] [phone] * (ABNORMAL) GLUCOSE - POINT OF CARE (12/10/2022 8:37 PM SOLDER DEPOSIT OPERATOR) [facility] Glucose WB/POC 338(H) 70 - 106 mg/dL 12/10/2022 8:43 PM SOLDER DEPOSIT OPERATOR [facility] Specimen Type Cap Fingerstick 2022 8:43 PM SOLDER DEPOSIT OPERATOR [facility] Blood BLOOD SPECIMEN / Unknown 12/10/2022 8:37 PM SOLDER DEPOSIT OPERATOR 12/10/2022 8:43 PM SOLDER DEPOSIT OPERATOR Isis Munguia MD LAB - POINT OF CARE ORDERABLES Performing Organization Address [facility]/ZIP Co de Phone Number [facility] [address] [place] [phone] * (ABNORMAL) KETONES QUALITATIVE URINE AUTO (12/10/2022 8:01 PM SOLDER DEPOSIT OPERATOR) [facility] Ketone UA 2+(A) Negative 12/10/2022 8:[address] [facility] Urine URINE / Unknown Collection / Unknown 12/10/2022 8:01 PM SOLDER DEPOSIT OPERATOR 12/10/2022 8:11 PM SOLDER DEPOSIT OPERATOR Narrative [facility] - 12/10/2022 8:24 PM SOLDER DEPOSIT OPERATOR Luigi Gil MD LAB - URINALYSIS ORD ERABLES Performing Organization Address [facility]/ZIP Co de Phone Number [facility] [address] [place] [address], [facility] [phone] * (ABNORMAL) BASIC METABOLIC PANEL (CALCIUM TOTAL) (12/10/2022 8:01 PM SOLDER DEPOSIT OPERATOR) [facility] BUN 26 7 - 26 mg/dL 12/10/2022 8:44 PM [facility] Creatinine 0.66 0.56 - 0.96 mg/dL 12/10/2022 8:[address] [facility] Sodium 137 136 - 145 mmol/L 12/10/2022 8:[address] [facility] Potassium 6.0(H) 3.5 - 4.5 mmol/L 12/10/2022 8:[address] [facility] Comment:Hemolysis detected i n this specimen. Hemolysis may cause false elevations in potassium leading to pseudohyperkalemia or masked hypokalemia. Recommend repeat testing if clinically indicated. Chloride 107 98 - 107 mmol/L 12/10/2022 8:[address] [facility] CO2 9(LL) 22 - 29 mmol/L 12/10/2022 8:[address] [facility] Glucose 367(H) 70 - 115 mg/dL 12/10/2022 8:[address] [facility] Calcium 9.6 8.4 - 10.2 mg/dL 12/10/2022 8:[address] [facility] Anion Gap 27(H) 8 - 18 12/10/2022 8:[address] [facility] BUN/Creatinine Ratio 39(H) 7 - 23 11/23 8:[address] [facility] Osmolality Calculated 304(H) 270 - 300 mOsm/kg 12/10/2022 8:[address] [facility] eGFR by CKD-EPI >90 >=90 mL/min/1. 73 m2 12/10/2022 8:[address] [facility] Blood BLOOD SPECIMEN / Unknown Venipuncture / Unknown 12/10/2022 8:01 PM SOLDER DEPOSIT OPERATOR 12/10/2022 8:20 PM SOLDER DEPOSIT OPERATOR Luigi Gil MD LAB - CHEMISTRY [facility]ubrey [facility] Performing Organization Address City/[facility]/ZIP Co de Phone Number [facility] [address] [place] [address], [facility] [phone] * (ABNORMAL) GLUCOSE - POINT OF CARE (12/10/2022 7:38 PM SOLDER DEPOSIT OPERATOR) Pathologist [facility] Glucose WB/POC 368(H) 70 - 106 mg/dL 12/10/2022 7:45 PM SOLDER DEPOSIT OPERATOR [facility] Specimen Type Cap Fingerstick 2022 7:45 PM SOLDER DEPOSIT OPERATOR [facility] Blood BLOOD SPECIMEN / Unknown 12/10/2022 7:38 PM SOLDER DEPOSIT OPERATOR 12/10/2022 7:45 PM SOLDER DEPOSIT OPERATOR Luigi Gil MD LAB - POINT OF CARE ORDERABLES [facility] [address] [place] [address] * (ABNORMAL) GLUCOSE - POINT OF CARE (12/10/2022 6:22 PM SOLDER DEPOSIT OPERATOR) Glucose WB/POC 465(HH) 70 - 106 mg/dL 12/10/2022 6:31 PM SOLDER DEPOSIT OPERATOR [facility] Specimen Type Cap Fingerstick 2022 6:31 PM SOLDER DEPOSIT OPERATOR [facility] Blood BLOOD SPECIMEN / Unknown 12/10/2022 6:22 PM SOLDER DEPOSIT OPERATOR 12/10/2022 6:31 PM SOLDER DEPOSIT OPERATOR Luigi Gil MD LAB - POINT OF CARE ORDERABLES Performing Organization Address [facility] Co de Phone Number [facility] [address] [place] [phone] * (ABNORMAL) GLUCOSE - POINT OF CARE (12/10/2022 5:05 PM SOLDER DEPOSIT OPERATOR) Glucose WB/POC 421(H) 70 - 106 mg/dL 12/10/2022 5:08 PM SOLDER DEPOSIT OPERATOR [facility] Specimen Type Cap Fingerstick 2022 5:08 PM SOLDER DEPOSIT OPERATOR [facility] Blood BLOOD SPECIMEN / Unknown 12/10/2022 5:05 PM SOLDER DEPOSIT OPERATOR 12/10/2022 5:08 PM SOLDER DEPOSIT OPERATOR Luigi Gil MD LAB - POINT OF CARE ORDERABLES Performing Organization Address [facility] de Phone Number [facility] [address] [place] [phone] * Critical Care (12/10/2022 5:03 PM SOLDER DEPOSIT OPERATOR) Narrative Luigi Gil MD - 12/10/2022 5:03 PM SOLDER DEPOSIT OPERATOR Luigi Gil MD ? 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 failure or compromise, endocrine crisis, respiratory failure and shock ??Critical care was time spent personally by me on the following activities: ??Development of treatment plan with patient or surrogate, discussions with consultants, evaluation of patient's response to treatment, examination of patient, obtaining history from patient or surrogate, ordering and performing treatments and interventions, ordering and review of laboratory studies, pulse oximetry, re-evaluation of patient's condition and review of old charts Luigi Gil MD PROCEDURE/MINOR SURG ICAL ORDERABLES * (ABNORMAL) GLUCOSE - POINT OF CARE (12/10/2022 3:58 PM SOLDER DEPOSIT OPERATOR) Glucose WB/POC 416(H) 70 - 106 mg/dL 12/10/2022 4:02 PM [facility] Specimen Type Cap Fingerstick 2022 4:02 PM [facility] Blood BLOOD SPECIMEN / Unknown 12/10/2022 3:58 PM SOLDER DEPOSIT OPERATOR 12/10/2022 4:02 PM SOLDER DEPOSIT OPERATOR Luigi Gil MD LAB - POINT OF CARE ORDERABLES Performing Organization Address City/State/[facility] de Phone Number [facility] [address] [place] [phone] * (ABNORMAL) BLOOD GAS+COOX+LYTES+METAB VENOUS POCT (12/10/2022 3:37 PM SOLDER DEPOSIT OPERATOR) pH Venous 7.11(LL) 7.32 - 7.42 pH 12/10/2022 3:37 PM [facility] pO2 Venous 54(H) 35 - 40 mmHg 12/10/2022 3:37 PM [facility] pCO2 Venous 32(L) 40 - 50 mmHg 12/10/2022 3:37 PM [facility] HCO3 Venous 10.2(L) 20 - 30 mmol/L 12/10/2022 3:37 PM [facility] Base Excess Venous -18.2(L) -2.0 - 2.0 mmol/L 12/10/2022 3:37 PM [facility] Oxyhemoglobin Venous 75.9 % 11/23 3:37 PM [facility] Deoxyhemoglobin (HHB) Venous % 22.1 % 12/10/2022 3:37 PM [facility] Methemoglobin 1.1 0.0 - 2.0 % 12/10/2022 3:37 PM [facility] Carboxyhemoglobin 1.0 0.0 - 2.0 % 2022 3:37 PM [facility] Comment:Carboxyhemoglobin No rmal Concentration: Non-smokers: 0-2%; Smokers: 0- 9%; Toxic: >20% O2 Content Venous 15.9 Interpret within clinical context ml/dL 12/10/2022 3:37 PM [facility] Hemoglobin by COOX 14.9 12.0 - 16.0 g/dL 12/10/2022 3:37 PM [facility] O2 Saturation Venous 77 >=70 % 11/23 3:37 PM [facility] Sodium Whole Blood 132(L) 135 - 145 mmol/L 12/10/2022 3:37 PM [facility] Potassium Whole Blood 5.8(H) 3.5 - 5.5 mmol/L 12/10/2022 3:37 PM [facility] Chloride WB 98(L) 101 - 111 mmol/L 12/10/2022 3:37 PM [facility] Calcium Ionized 1.21 mmol/L 3:37 PM [facility] Ionized Calcium pH Adjusted 1.07(L) 1.19 - 1.34 mmol/L 12/10/2022 3:37 PM [facility] Anion Gap (AG) Arterial 30(H) 8 - 18 mmol/L 12/10/2022 3:37 PM [facility] Glucose WB 552(HH) 70 - 105 mg/dL 12/10/2022 3:37 PM [facility] Lactic Acid Whole Blood 6.3(HH) <=2.0 mmol/L 12/10/2022 3:37 PM [facility] Blood BLOOD SPECIMEN / Unknown 12/10/2022 3:37 PM SOLDER DEPOSIT OPERATOR 12/10/2022 3:38 PM [facility] Narrative [facility] - 12/10/2022 3:37 PM [facility] Notified: ROXANNE BALES, Notified By: LISET CRAIG, Notification Time: 153, Read back and verified? Y Luigi Gil MD LAB - POINT OF CARE ORDERABLES [facility] [address] * (ABNORMAL) BASIC METABOLIC PANEL (CALCIUM TOTAL) (12/10/2022 3:35 PM SOLDER DEPOSIT OPERATOR) BUN 24 7 - 26 mg/dL 12/10/2022 4:[address] [facility] Creatinine 0.73 0.56 - 0.96 mg/dL 12/10/2022 4:[address] [facility] Sodium 133(L) 136 - 145 mmol/L 12/10/2022 4:[address] [facility] Potassium 5.9(H) 3.5 - 4.5 mmol/L 12/10/2022 4:[address] [facility] Comment:Hemolysis detected i n this specimen. Hemolysis may cause false elevations in potassium leading to pseudohyperkalemia or masked hypokalemia. Recommend repeat testing if clinically indicated. Chloride 101 98 - 107 mmol/L 12/10/2022 4:[address] [facility] CO2 8(LL) 22 - 29 mmol/L 12/10/2022 4:[address] [facility] Glucose 493(HH) 70 - 115 mg/dL 12/10/2022 4:[address] [facility] Calcium 10.2 8.4 - 10.2 mg/dL 12/10/2022 4:[address] [facility] Anion Gap 30(H) 8 - 18 12/10/2022 4:[address] [facility] BUN/Creatinine Ratio 33(H) 7 - 23 11/23 4:[address] [facility] Osmolality Calculated 302(H) 270 - 300 mOsm/kg 12/10/2022 4:[address] [facility] eGFR by CKD-EPI >90 >=90 mL/min/1 .73 m2 12/10/2022 4:[address] [facility] Blood BLOOD SPECIMEN / Unknown Venipuncture / Unknown 12/10/2022 3:35 PM SOLDER DEPOSIT OPERATOR 12/10/2022 3:45 PM SOLDER DEPOSIT OPERATOR Luigi Gil MD LAB - CHEMISTRY ORDE CECE Performing Organization Address City/[facility]/ZIP Co de Phone Number [facility] [address] [place] [address], [facility] [phone] * BLOOD GAS VIRY+LYTES+METAB+COOX POC NOTIF (12/10/2022 3:35 PM SOLDER DEPOSIT OPERATOR) Comment Notification Label Only - See Separate Report 12/10/2022 5:01 PM SOLDER DEPOSIT OPERATOR [facility] Other MISCELLANEOUS SAMPLES / Unknown Collection / Unknown 12/10/2022 3:35 PM SOLDER DEPOSIT OPERATOR 12/10/2022 3:35 PM SOLDER DEPOSIT OPERATOR Luigi Gil MD LAB - BLOOD GASES OR DERABLES Performing Organization Address [facility]/ZIP Co de Phone Number [facility] [address] [place] [address] * (ABNORMAL) URINALYSIS W/MICROSCOPIC REFLEX TO CULTURE (12/10/2022 3:31 PM SOLDER DEPOSIT OPERATOR) Color UA Straw Straw, Yellow 12/10/2022 3:53 PM SOLDER DEPOSIT OPERATOR [facility] Clarity UA Clear Clear 12/10/2022 3:53 PM SOLDER DEPOSIT OPERATOR [facility] Specific [place] UA 1.023 1.005 - 1.030 12/10/2022 3:[address] [facility] pH UA 5.0 5.0 - 8.0 pH 12/10/2022 3:53 PM SOLDER DEPOSIT OPERATOR [facility] Protein UA Negative Negative 12/10/2022 3:53 PM SOLDER DEPOSIT OPERATOR [facility] Glucose UA 3+(A) Negative 12/10/2022 3:53 PM SOLDER DEPOSIT OPERATOR [facility] Ketone UA 2+(A) Negative 12/10/2022 3:[address] [facility] Bilirubin UA Negative Negative 12/10/2022 3:[address] [facility] Blood UA 2+(A) Negative 12/10/2022 3:53 PM SOLDER DEPOSIT OPERATOR [facility] Nitrite UA Negative Negative 12/10/2022 3:[address] [facility] Leukocyte Esterase Negative Negative 12/10/2022 3:53 PM SOLDER DEPOSIT OPERATOR [facility] Urobilinogen UA Negative Negative mg/dL 12/10/2022 3:[address] [facility] RBC UA 0-2 None Seen, 0-2, 3-5 /HPF 12/10/2022 3:53 PM SOLDER DEPOSIT OPERATOR [facility] WBC UA 0-5 None Seen, 0-5 /HPF 12/10/2022 3:[address] [facility] Squamous Epithelial Cells UA 0-2 None Seen, 0-2, 3-5 /HPF 12/10/2022 3:53 PM SOLDER DEPOSIT OPERATOR [facility] Urine URINE SPECIMEN OBTAINED BY CLEAN CATCH PROCEDURE / Unknown Collection / Unknown 12/10/2022 3:31 PM SOLDER DEPOSIT OPERATOR 12/10/2022 3:42 PM SOLDER DEPOSIT OPERATOR Narrative [facility] - 12/10/2022 3:53 PM SOLDER DEPOSIT OPERATOR Culture Not Indicated Luigi Gil MD LAB - URINALYSIS ORD ERABLES Performing Organization Address City/[facility]/ZIP Co de Phone Number [facility] [address] [place] [address], [facility] [phone] * (ABNORMAL) GLUCOSE - POINT OF CARE (12/10/2022 2:40 PM SOLDER DEPOSIT OPERATOR) Pathologist [facility] Glucose WB/POC 445(H) 70 - 106 mg/dL 12/10/2022 2:43 PM SOLDER DEPOSIT OPERATOR [facility] Specimen Type Cap Fingerstick 2022 2:43 PM SOLDER DEPOSIT OPERATOR [facility] Blood BLOOD SPECIMEN / Unknown 12/10/2022 2:40 PM SOLDER DEPOSIT OPERATOR 12/10/2022 2:43 PM SOLDER DEPOSIT OPERATOR Provider Unknown LAB - POINT OF CARE ORDERABLES Performing Organization Address City/[facility]/ZIP Co de Phone Number [place] [phone] [place] [phone] documented in this encounter Visit Diagnoses Diagnosis Diabetic ketoacidosis without coma associated with type 1 diabetes mellitus (HCC) Diabetic ketoacidosis without coma associated with type 1 diabetes mellitus (HCC) * Assessment & Plan Note - Shruthi Jara DO - 12/10/2022 6:40 PM SOLDER DEPOSIT OPERATOR Associated Problem(s): Diabetic ketoacidosis without coma associated with type 1 diabetes mellitus (HCC) (Resolved 08/02/2023) Assessment: Anaid is a 17y/o with Type 1 diabetes, who presents in DKA with nausea and vomiting that started yesterday. Recently seen in Endocrinology clinic with some changes made to her insulinemanagement. This episode is likely due to unclear [...] - Urine ketones q void until negative ER DEPOSIT OPERATOR documented in this encounter Administered Medications Inactive Administered Medications - up to 3 most recent administrations Medication Order MAR Action Action Date Dose Rate Site 0.45% NaCl with potassium acetate 20 mEq/L, potassium phosphate 20 mEq/L INFUSION at 160 mL/hr, Intravenous, CONTINUOUS, Starting on Thu12/10/22 at 1700, Until Thu12/11/22 at 1633, FIRST BAG Current Rate 12/11/2022 7:25 AM SOLDER DEPOSIT OPERATOR 1 mL /hr $ New Bag During Downtime 12/11/2022 5:52 AM SOLDER DEPOSIT OPERATOR 1 mL/hr Rate Change 12/11/2022 5:44 AM SOLDER DEPOSIT OPERATOR 1 mL/hr 0.45% NaCl with potassium phosphate 20 mEq/L INFUSION at 160 mL/hr, Intravenous, CONTINUOUS, Starting on Thu12/11/22 at 0900, Until Thu12/11/22 at 1633, Can start once done with 1/2 NS k acetate and k phos fluids $ New Bag/Syringe 12/11/2022 9:21 AM SOLDER DEPOSIT OPERATOR 160 mL/hr $ New Bag/Syringe 12/11/2022 9:08 AM SOLDER DEPOSIT OPERATOR 160 mL /hr 0.9% NaCl IV BOLUS 1,000 mL 1,000 mL (rounded from 1,028 mL = 20 mL/kg ? 51.4 kg), Intravenous, ONCE, 1 dose, On Thu12/10/22 at 1545 $ New Bag/Syringe 12/10/2022 3:45 PM SOLDER DEPOSIT OPERATOR 1,000 mL acetaminophen (Tylenol) tablet 500 mg 500 mg, Oral, EVERY 6 HOURS PRN, Fever, Mild Pain, Starting on Thu12/11/22 at 0942, Until Thu12/11/22 at 1633, Patient preference for lesser PRN pain meds may be honored when the patient requests a less strong medication, a lower dose, or a less intrusive route of administration when the lesser drug, dose and route have been ordered for the patient. This patient request must be documented in the MAR. dextrose 10 % with potassium acetate 20 mEq/L, potassium phosphate 20 mEq/L, NaCl (4mEq/ml) (Conc.Sodium Chloride) 0.45 % INFUSION at 190 mL/hr, Intravenous, CONTINUOUS, Starting on Thu12/10/22 at 1715, Until Thu12/11/22 at 0921, SECOND BAG Current Rate 12/11/2022 7:25 AM SOLDER DEPOSIT OPERATOR 190 mL/hr $ New Bag/Syringe 12/11/2022 6:39 AM SOLDER DEPOSIT OPERATOR 190 mL /hr Rate Change 12/11/2022 6:09 AM SOLDER DEPOSIT OPERATOR 190 mL/hr glucagon (Glucagen) injection 1 mg 1 mg, Intramuscular, PRN, hypoglycemia, Starting on Thu12/11/22 at 0804, Until Thu12/11/22 at 1633, ..Administer if patient is unresponsive or convulsing AND blood glucose is less than 80. Notify dye house wheel operator. Reconstitute vial with 1 mL of sterile water for injection for a final concentration of 1 mg/mL; shake vial gently; use immediately and discard unused portion insulin glargine (Lantus) vial 18 Units 18 Units, Subcutaneous, ONCE, 1 dose, On Thu12/10/22 at 1730, Obtain a current Blood Glucose if necessary. . WASTE DISPOSAL INSTRUCTIONS: Black Bin Disposal required. $ Given 12/10/2022 6:16 PM SOLDER DEPOSIT OPERATOR 18 Units Abd Right Upper Quadrant insulin glargine (Lantus) vial 18 Units 18 Units, Subcutaneous, EVERY 24 HOURS, First dose on Thu12/11/22 at 2000, Until Discontinued, Obtain a current Blood Glucose if necessary. . WASTE DISPOSAL INSTRUCTIONS: Black Bin Disposal required. insulin lispro (HumaLOG;ADMelog) 100 UNIT/ML pen 0-6 Units 0-6 Units, Subcutaneous, 3 TIMES DAILY BEFORE MEALS, First dose on Thu12/11/22 at 0845, Until Discontinued, High Risk, High Alert Medication: Must doucment double check on IV MAR Flowsheet. Add 1 unit for pre-meal blood glucose 151 to 190 Add 2 units for pre-meal blood glucose 191 to 230 Add 3 units for pre-meal blood glucose 231 to 270 Add 4 units for pre-meal blood glucose 271 to 310 Add 5 units for pre-meal blood glucose 311 to 350 Add 6 units for pre-meal blood glucose over 351 $ Given 12/11/2022 1:34 PM SOLDER DEPOSIT OPERATOR 1 Units Right Arm $ Given 12/11/2022 9:06 AM SOLDER DEPOSIT OPERATOR 3 Units Le ft Arm insulin lispro (HumaLOG;ADMelog) 100 UNIT/ML pen 1-10 Units 1-10 Units, Subcutaneous, 3 TIMES DAILY BEFORE MEALS, First dose on Thu12/11/22 at 0845, Until Discontinued, 1 units of insulin per 7 grams of carbohydrate in meals and snacks High Risk, High Alert Medication: Must document double check on IV MAR Flowsheet. $ Given 12/11/2022 1:36 PM SOLDER DEPOSIT OPERATOR 6 Units Right Arm $ Given 12/11/2022 9:06 AM SOLDER DEPOSIT OPERATOR 8 Units Le ft Arm insulin regular human (MyXRedlin) 100 units in 100 mL premix infusion 0.1 Units/kg/hr ? 51.4 kg (5.14 mL/hr), Intravenous, CONTINUOUS, Starting on Thu12/10/22 at 1730, Until Thu12/11/22 at 0921, Flush 20 ml of infusion through IV tubing before infusing. . WASTE DISPOSAL INSTRUCTIONS: Black Bin Disposal required. Rate Change 12/11/2022 8:06 AM SOLDER DEPOSIT OPERATOR 0.1 Units/kg/hr 5.14 mL/hr Rate Change 12/11/2022 7:21 AM SOLDER DEPOSIT OPERATOR 0.05 Units/kg/hr 2.57 m L/hr Rate Change 12/11/2022 6:09 AM SOLDER DEPOSIT OPERATOR 0 Units/kg/hr 0 mL/hr ondansetron (Zofran) injection 4 mg 4 mg, Intravenous, ONCE, 1 dose, On Thu12/10/22 at 1600, Administer over 2 to 5 minutes. $ Given 12/10/2022 3:50 PM SOLDER DEPOSIT OPERATOR 4 mg phenol (Chloraseptic) 1.4 % liquid Oral, PRN, Sore Throat, Starting on Thu12/11/22 at 1318, Until Thu12/11/22 at 1633, . WASTE DISPOSAL INSTRUCTIONS: Black Bin Disposal required. documented in this encounter Active and Recently Administered Medications Times are shown in SOLDER DEPOSIT OPERATOR. Scheduled Medication Order 12/09/2022 12/10/2022 12/11/2022 0.9% NaCl IV BOLUS 1,000 mL (COMPLETED) 1,000 mL (rounded from 1,028 mL = 20 mL/kg ? 51.4 kg), Intravenous, ONCE, 1 dose, On Thu12/10/22 at 1545 1545 ($ New Bag/Syringe - Provider: Elli Dumont, RAFA) insulin glargine (Lantus) vial 18 Units (COMPLETED) 18 Units, Subcutaneous, ONCE, 1 dose, On Thu12/10/22 at 1730, Obtain a current Blood Glucose if necessary. . WASTE DISPOSAL INSTRUCTIONS: Black Bin Disposal required. 1816 ($ Given - Provider: Kristina Dooley, RAFA) insulin glargine (Lantus) vial 18 Units 18 Units, Subcutaneous, EVERY 24 HOURS, First dose on Thu12/11/22 at 2000, Until Discontinued, Obtain a current Blood Glucose if necessary. . WASTE DISPOSAL INSTRUCTIONS: Black Bin Disposal required. insulin lispro (HumaLOG;ADMelog) 100 UNIT/ML pen 0-6 Units 0-6 Units, Subcutaneous, 3 TIMES DAILY BEFORE MEALS, First dose on Thu12/11/22 at 0845, Until Discontinued, High Risk, High Alert Medication: Must doucment double check on IV MAR Flowsheet. Add 1 unit for pre-meal blood glucose 151 to 190 Add 2 units for pre-meal blood glucose 191 to 230 Add 3 units for pre-meal blood glucose 231 to 270 Add 4 units for pre-meal blood glucose 271 to 310 Add 5 units for pre-meal blood glucose 311 to 350 Add 6 units for pre-meal blood glucose over 351 0906 ($ Given - Provider: Isis Mclaughlin, RAFA)1334 ($ Given - Provider: Isis Mclaughlin, RAFA) insulin lispro (HumaLOG;ADMelog) 100 UNIT/ML pen 1-10 Units 1-10 Units, Subcutaneous, 3 TIMES DAILY BEFORE MEALS, First dose on Thu12/11/22 at 0845, Until Discontinued, 1 units of insulin per 7 grams of carbohydrate in meals and snacks High Risk, High Alert Medication: Must document double check on IV MAR Flowsheet. 0906 ($ Given - Provider: Isis Mclaughlin, RN)1336 ($ Given - Provider: Isis Mclaughlin, RN) ondansetron (Zofran) injection 4 mg (COMPLETED) 4 mg, Intravenous, ONCE, 1 dose, On Thu12/10/22 at 1600, Administer over 2 to 5 minutes. 1550 ($ Given - Provider: Elli Dumont, RAFA) Continuous Medication Order 12/09/2022 12/10/2022 12/11/2022 0.45% NaCl with potassium acetate 20 mEq/L, potassium phosphate 20 mEq/L INFUSION at 160 mL/hr, Intravenous, CONTINUOUS, Starting on Thu12/10/22 at 1700, Until Thu12/11/22 at 1633, FIRST BAG 1813 ($ New Bag/Syringe - Provider: Kristina Dooley RN)2144 (Rate Change - Provider: Xochilt Gibbons RN)2257 (Rate Change - Provider: Xochilt Gibbons RN) 0033 (Rate Change - Provider: Xochilt Gibbons RN)0241 (Rate Change - Provider: Xochilt Gibbons, RAFA)0336 (Rate Change - Provider: Xochilt Gibbons, RAFA)0544 (Rate Change - Provider: Xochilt Gibbons, RN)0552 ($ New Bag During Downtime - Provider: Xochilt Gibbons RN)0725 (Current Rate - Provider: Xochilt Gibbons RN)0913 (Stopped - Provider: Isis Mclaughlin, RAFA)0921 (Not Administered - Provider: Isis Mclaughlin, RAFA - Reason: See Comments - Comment: Started .45%NS with K Phos) 0.45% NaCl with potassium phosphate 20 mEq/L INFUSION at 160 mL/hr, Intravenous, CONTINUOUS, Starting on Thu12/11/22 at 0900, Until Thu12/11/22 at 1633, Can start once done with 1/2 NS k acetate and k phos fluids 0908 ($ New Bag/Syri nge - Provider: Isis Mclaughlin, RN)0921 ($ New Bag/Syringe - Provider: Isis Mclaughlin, RN) dextrose 10 % with potassium acetate 20 mEq/L, potassium phosphate 20 mEq/L, NaCl (4mEq/ml) (Conc.Sodium Chloride) 0.45 % INFUSION (CANCELED) at 190 mL/hr, Intravenous, CONTINUOUS, Starting on Thu12/10/22 at 1715, Until Thu12/11/22 at 0921, SECOND BAG 1814 ($ New Bag/Syringe - Provider: Kristina Dooley RN)2144 (Rate Change - Provider: Xochilt Gibbons RN)2258 (Rate Change - Provider: Xochilt Gibbons, RN) 0033 (Rate Change - Provider: Xochilt Gibbons, RN)0241 (Rate Change - Provider: Xochilt Gibbons, RN)0336 (Rate Change - Provider: Xochilt Gibbons, RN)0545 (Rate Change - Provider: Xochilt Gibbons, RN)0609 (Rate Change - Provider: Xochilt Gibbons, RN)0639 ($ New Bag/Syringe - Provider: Rebeca Huffman RN)0725 (Current Rate - Provider: Xochilt Gibbons RN)0913 (Stopped - Provider: Isis Mclaughlin, RAFA) insulin regular human (MyXRedlin) 100 units in 100 mL premix infusion (CANCELED) 0.1 Units/kg/hr ? 51.4 kg (5.14 mL/hr), Intravenous, CONTINUOUS, Starting on Thu12/10/22 at 1730, Until Thu12/11/22 at 0921, Flush 20 ml of infusion through IV tubing before infusing. . WASTE DISPOSAL INSTRUCTIONS: Black Bin Disposal required. 1814 ($ New Bag/Syringe - Provider: Kristina Dooley, RAAF) 0609 (Rate Change - Provider: Xochilt Gibbons RN)0721 (Rate Change - Provider: Xochilt Gibbons, RAFA)0806 (Rate Change - Provider: Isis Mclaughlin, RN)0913 (Stopped - Provider: Isis Mclaughlin, RN) PRN Medication Order 12/09/2022 12/10/2022 12/11/2022 acetaminophen (Tylenol) tablet 500 mg 500 mg, Oral, EVERY 6 HOURS PRN, Fever, Mild Pain, Starting on 12/11/23 at 0942, Until Fide 12/11/22 at 1633, Patient preference for lesser PRN pain meds may be honored when the patient requests a less strong medication, a lower dose, or a less intrusive route of administration when the lesser drug, dose and route have been ordered for the patient. This patient request must be documented in the MAR. glucagon (Glucagen) injection 1 mg 1 mg, Intramuscular, PRN, hypoglycemia, Starting on Fide 12/11/22 at 0804, Until Fide 12/11/22 at 1633, ..Administer if patient is unresponsive or convulsing AND blood glucose is less than 80. Notify dye house wheel operator. Reconstitute vial with 1 mL of sterile water for injection for a final concentration of 1 mg/mL; shake vial gently; use immediately and discard unused portion phenol (Chloraseptic) 1.4 % liquid Oral, PRN, Sore Throat, Starting on Fide 12/11/22 at 1318, Until Ifde 12/11/22 at 1633, . WASTE DISPOSAL INSTRUCTIONS: Black Bin Disposal required. documented in this encounter Care Teams Chief Dog License Inspector Relationship Specialty Start Date End Date Alvarez Prabhakar MD [address] [place] [phone] PCP - General 12/12/11 documented as of this encounter
--- OUTSIDE RECORDS SUMMARY | 2024-11-22 05:18 | XMS_ITS | Encounter Summary ---
Author Organization [facility] Address [address] [facility] [place] [address] Care Team Providers Care Sticker Operator Name Role Phone Alvarez Prabhakar MD Primary Care Provider [phone] Reason for Visit * Reason Onset Date Comments Erroneous encounter-disregard 08/02/2023 Encounter Details Date Type Department Care Team (Late st Contact Info) Description 08/02/2023 Telephone [facility] Pediatrics - Diabetes [address] [address] Breana Olivas MD Erroneous encounter-disregard Social History Tobacco Use Types Packs/Day Years [...] person have difficulty concentrating/remembering/making decisions? No 08/01/2023 documented as of this encounter Plan of Treatment Not on file documented as of this encounter Visit Diagnoses Not on filedocumented in this encounter Care Teams Sticker Operator Relationship Specialty Start Date End Date Alvarez Prabhakar MD [address] [place] [address] PCP - General 12/12/11 documented as of this encounter
--- OUTSIDE RECORDS SUMMARY | 2024-11-22 05:18 | XMS_ITS | Encounter Summary ---
Author Organization [facility] Address [address] [facility] [place] [address] Care Team Providers Care Hydraulics Teacher Name Role Phone Alvarez Prabhakar MD Primary Care Provider [phone] Reason for Visit * Reason Onset Date Comments MEDICATION REFILL 05/18/2023 Encounter Details Date Type Department Care Team (Late st Contact Info) Description 05/18/2023 Refill [facility] Pediatrics - Diabetes [address] [address] Breana Olivas MD MEDICATION REFILL Social History [...] No 12/10/2022 documented as of this encounter Plan of Treatment Not on file documented as of this encounter Visit Diagnoses Diagnosis Type 1 diabetes mellitus without complication (HCC)- Primary Type I (juvenile type) diabetes mellitus without mention of complication, not stated as uncontrolled documented in this encounter Care Teams Hydraulics Teacher Relationship Specialty Start Date End Date Alvarez Prabhakar MD [address] [place] [address] PCP - General 12/12/11 documented as of this encounter
--- OUTSIDE RECORDS SUMMARY | 2024-11-22 05:18 | XMS_ITS | Encounter Summary ---
Author Organization [facility] Address [address] [facility] [place] [address] Care Team Providers Care Radio Sportscaster Name Role Phone Alvarez Prabhakar MD Primary Care Provider [phone] Encounter Details Date Type Department Care Team (Latest Contact Info) Description 08/04/2023 Travel Social History Tobacco Use Types Packs/Day [...] on filedocumented in this encounter Care Teams Radio Sportscaster Relationship Specialty Start Date End Date Alvarez Prabhakar MD [address] [place] [phone] PCP - General 12/12/11 documented as of this encounter
--- OUTSIDE RECORDS SUMMARY | 2024-11-22 05:18 | XMS_ITS | Encounter Summary ---
Author Organization [facility] Address [address] [facility] [place] [address] Care Team Providers Care Coding File Clerk Name Role Phone Alvarez Prabhakar MD Primary Care Provider [phone] Reason for Visit * Reason Onset Date Comments MEDICATION REFILL 04/24/2023 Encounter Details Date Type Department Care Team (Late st Contact Info) Description 04/24/2023 Refill [facility] Pediatrics - Diabetes [address] [address] Breana Olivas MD MEDICATION REFILL Social History [...] encounter Miscellaneous Notes * Telephone Encounter - Subha Ivey, RN - 04/24/2023 9:45 AM CDT I called mom to schedule a follow up appointment for Anaid because I received a PA request for Semglee. [facility], but insurance prefers 90 days. Insurance prefers Tresiba so, per Dr. Olivas' request, I decreased the dose by 20%. I informed mom of new dose. She agrees and will let Anaid know. documented in this encounter Plan of Treatment Not on file documented as of this encounter Visit Diagnoses Diagnosis Type 1 diabetes mellitus without complication (HCC) Type I (juvenile type) diabetes mellitus without mention of complication, not stated as uncontrolled documented in this encounter Care Teams Coding File Clerk Relationship Specialty Start Date End Date Alvarez Prabhakar MD [address] [place] [address] PCP - General 12/12/11 documented as of this encounter
--- OUTSIDE RECORDS SUMMARY | 2024-11-22 05:18 | XMS_ITS | Encounter Summary ---
Author Organization [facility] Address [address] [facility] [place] [address] Care Team Providers Care Sweat Band Sewer Name Role Phone Alvarez Prabhakar MD Primary Care Provider [phone] Reason for Visit * Reason Comments Refill Request Encounter Details Date Type Department Care Team (Late st Contact Info) Description 08/19/2022 Refill [facility] Pediatrics - Diabetes [address] [address] Brendan Zafar MD [address] [place] [phone] Refill Request Social History Tobacco Use Types [...] Recorded In the last 10 days, have yo u been in contact with someone who [...] uncontrolled documented in this encounter Care Teams Sweat Band Sewer Relationship Specialty Start Date End Date Alvarez Prabhakar MD [address] [place] [address] PCP - General 12/12/11 documented as of this encounter
--- OUTSIDE RECORDS SUMMARY | 2024-11-22 05:18 | XMS_ITS | Encounter Summary ---
Author Organization [facility] Address [address] [place] [address] Care Team Providers Care Tubing Oiler Name Role Phone Alvarez Prabhakar MD Primary Care Provider [phone] Reason for Visit * Reason Onset Date Comments MEDICATION REFILL 08/03/2023 Encounter Details Date Type Department Care Team (Late st Contact Info) Description 08/03/2023 Refill [facility] Pediatrics - Diabetes [address] [address] Breana Olivas MD MEDICATION REFILL Social History [...] uncontrolled documented in this encounter Care Teams Tubing Oiler Relationship Specialty Start Date End Date Alvarez Prabhakar MD [address] [place] [address] PCP - General 12/12/11 documented as of this encounter
--- OUTSIDE RECORDS SUMMARY | 2024-11-22 05:18 | XMS_ITS | Encounter Summary ---
Author Organization [facility] Address [address] [facility] [place] [address] Care Team Providers Care Semi Conductor Assembler Name Role Phone Alvarez Prabhakar MD Primary Care Provider [phone] Reason for Visit * Reason Onset Date Comments MEDICATION REFILL 11/12/2022 Encounter Details Date Type Department Care Team (Late st Contact Info) Description 11/12/2022 Refill [facility] Pediatrics - Diabetes [facility] [address] [place] [address] Rosalva Moyer, TURRET PRESS OPERATOR-INJECTION WAX MOLDER [address] [place] [address] MEDICATION REFILL Social History Tobacco Use Types [...] uncontrolled documented in this encounter Care Teams Semi Conductor Assembler Relationship Specialty Start Date End Date Alvarez Prabhakar MD [address] [place] [phone] PCP - General 12/12/11 documented as of this encounter
--- OUTSIDE RECORDS SUMMARY | 2024-11-22 05:18 | XMS_ITS | Encounter Summary ---
Author Organization [facility] Address [address] [facility] [address] Care Team Providers Care Climate Change Analyst Name Role Phone Alvarez Prabhakar MD Primary Care Provider [phone] Reason for Visit * Reason Comments Refill Request Encounter Details Date Type Department Care Team (Late st Contact Info) Description 08/17/2023 Refill [facility] Pediatrics - Diabetes [address] [address] Breana Olivas MD Refill Request Social History Tobacco Use Types [...] on filedocumented in this encounter Care Teams Climate Change Analyst Relationship Specialty Start Date End Date Alvarez Prabhakar MD [address] [place] [phone] PCP - General 12/12/11 documented as of this encounter
--- OUTSIDE RECORDS SUMMARY | 2024-11-22 05:18 | XMS_ITS | Encounter Summary ---
Author Organization [facility] Address [address] [facility] [place] [address] Care Team Providers Care Corporate Concierge Name Role Phone Alvarez Prabhakar MD Primary Care Provider [phone] Encounter Details Date Type Department Care Team (Late st Contact Info) Description 06/08/2023 Telephone [facility] Pediatrics - Diabetes [address] [address] Breana Olivas MD Social History Tobacco Use Types Packs/Day Years [...] Telephone Encounter - Subha Ivey, RN - 06/16/2023 10:21 AM CDT I called mom to try to schedule a transition visit via phone call for [place], but no answer. LMOMasking for call back from [place] or mom. * Telephone Encounter - Kadeem Coulter - 06/08/2023 8:36 AM CDT PA for Dexcom G6 tire builder heavy service sent to [facility] and [facility] through [employer] documented in this encounter Plan of Treatment Not on file documented as of this encounter Visit Diagnoses Not on filedocumented in this encounter Care Teams Corporate Concierge Relationship Specialty Start Date End Date Alvarez Prabhakar MD [address] [place] [phone] PCP - General 12/12/11 documented as of this encounter
--- OUTSIDE RECORDS SUMMARY | 2024-11-22 05:18 | XMS_ITS | Encounter Summary ---
Author Organization [facility] Address [address] [facility] [place] [address] Care Team Providers Care Makeup Artistry Instructor Name Role Phone Alvarez Prabhakar MD Primary Care Provider [phone] Reason for Visit * Reason Onset Date Comments MEDICATION REFILL 04/24/2023 Encounter Details Date Type Department Care Team (Late st Contact Info) Description 04/24/2023 Refill [facility] Pediatrics - Diabetes [address] [address] Breana Olivas MD MEDICATION REFILL Social History [...] Miscellaneous Notes * Telephone Encounter - Subha Ivey RN - 04/24/2023 3:52 PM CDT [facility] acting [facility] was preferred as I keep getting PA requests for every long acting insulin. The certified pharmacy tech states that Lantus is preferred and goes through both insurances with $0 copay. I asked her to review instructions with mom and Anaid (18 units daily). She agrees. documented in this encounter Plan of Treatment Not on file documented as of this encounter Visit Diagnoses Not on filedocumented in this encounter Care Teams Makeup Artistry Instructor Relationship Specialty Start Date End Date Alvarez Prabhakar MD [address] [place] [address] PCP - General 12/12/11 documented as of this encounter
--- OUTSIDE RECORDS SUMMARY | 2024-11-22 05:18 | XMS_ITS | Encounter Summary ---
Author Organization [facility] Address [address] [facility] [place] [address] Care Team Providers Care Direct Care Counselor Name Role Phone Alvarez Prabhakar MD Primary Care Provider [phone] Reason for Visit * Reason Comments Refill Request Encounter Details Date Type Department Care Team (Late st Contact Info) Description 11/05/2023 Refill [facility] Pediatrics - Diabetes [address] [address] Breana Olivas MD Refill Request Social History [...] uncontrolled documented in this encounter Care Teams Direct Care Counselor Relationship Specialty Start Date End Date Alvarez Prabhakar MD [address] [place] [address] PCP - General 12/12/11 documented as of this encounter
--- OUTSIDE RECORDS SUMMARY | 2024-11-22 05:18 | XMS_ITS | Encounter Summary ---
Author Organization [facility] Address [address] [facility] [place] [address] Care Team Providers Care Boat Wrapper Name Role Phone Alvarez Prabhakar MD Primary Care Provider [phone] Reason for Visit * Reason Onset Date Comments Patient Requested Call 10/24/2022 Encounter Details Date Type Department Care Team (Late st Contact Info) Description 10/24/2022 Telephone [facility] Pediatrics - Endocrinology [facility] [place] [address] Breana Olivas MD Patient Requested Call Social History Tobacco Use Types Packs/Day Years [...] No 03/04/2021 documented as of this encounter Miscellaneous Notes * Telephone Encounter - Meghna Gaxiola - 10/24/2022 10:28 AM CST Mom returned call and made appointment with Bree Moyer on 11/12/2022 at 2:30pm. Mom asking about getting refill of insulin and test strips, mom's call back is [phone] -RL LT OPERATOR documented in this encounter Plan of Treatment Not on file documented as of this encounter Visit Diagnoses Not on filedocumented in this encounter Care Teams Boat Wrapper Relationship Specialty Start Date End Date Alvarez Prabhakar MD [address] [place] [address] PCP - General 12/12/11 documented as of this encounter
--- OUTSIDE RECORDS SUMMARY | 2024-11-22 05:18 | XMS_ITS | Encounter Summary ---
Author Organization [facility] Address [address] [facility] [place] [address] Care Team Providers Care Centrifugal Casting Machine Operator Name Role Phone Alvarez Prabhakar MD Primary Care Provider [phone] Reason for Visit * Reason Comments Refill Request Encounter Details Date Type Department Care Team (Late st Contact Info) Description 10/27/2022 Refill [facility] Pediatrics - Diabetes [address] [address] Breana Olivas MD Refill Request Social History [...] uncontrolled documented in this encounter Care Teams Centrifugal Casting Machine Operator Relationship Specialty Start Date End Date Alvarez Prabhakar MD [address] [place] [address] PCP - General 12/12/11 documented as of this encounter
--- OUTSIDE RECORDS SUMMARY | 2024-11-22 05:18 | XMS_ITS | Encounter Summary ---
Author Organization [facility] Address [address] [place] [address] Care Team Providers Care Hot Oiler Name Role Phone Alvarez Prabhakar MD Primary Care Provider [phone] Encounter Details Date Type Department Care Team (Late st Contact Info) Description 12/04/2023 Telephone [facility] Pediatrics - Diabetes [facility] [address] [place] [address] Rosalva Moyer, MANAGER CAREER-DBA [address] [place] [address] Social History Tobacco Use Types Packs/Day Years [...] No 08/01/2023 documented as of this encounter Miscellaneous Notes * Telephone Encounter - Kadeem Coulter - 12/04/2023 8:49 AM CST Mom reached out needing a referral to Dr. Jack Fuentes with [facility] medical [facility] in [facility]. Also rx for supplies sent to provider to sign. REGATIONAL CARE PASTOR documented in this encounter Plan of Treatment Not on file documented as of this encounter Visit Diagnoses Not on filedocumented in this encounter Care Teams Hot Oiler Relationship Specialty Start Date End Date Alvarez Prabhakar MD [address] [place] [phone] PCP - General 12/12/11 documented as of this encounter
--- OUTSIDE RECORDS SUMMARY | 2024-11-22 05:18 | XMS_ITS | Encounter Summary ---
Author Organization [facility] Address [address] [place] [address] Care Team Providers Care Horn Player Name Role Phone Alvarez Prabhakar MD Primary Care Provider Reason for Visit * Reason Onset Date Comments MEDICATION REFILL 06/09/2023 Encounter Details Date Type Department Care Team (Late st Contact Info) Description 06/09/2023 Refill [facility] Pediatrics - Endocrinology [address] [facility] [place] [address] Rosalva Moyer, USED CAR RENOVATOR-GEAR NICKER [address] [place] [address] MEDICATION REFILL Social History Tobacco Use Types [...] Frequency of Binge Drinking Not on file 09/0 07/2023 Sex and Gender Information Value Date [...] uncontrolled documented in this encounter Care Teams Horn Player Relationship Specialty Start Date End Date Alvarez Prabhakar MD [address] [place] [phone] PCP - General 12/12/11 documented as of this encounter
--- OUTSIDE RECORDS SUMMARY | 2024-11-22 05:18 | XMS_ITS | Encounter Summary ---
Author Organization [facility] Address [address] [place] [address] Care Team Providers Care Depalletizer Operator Name Role Phone Alvarez Prabhakar MD Primary Care Provider [phone] Reason for Visit * Reason Onset Date Comments General 11/11/2024 Encounter Details Date Type Department Care Team (Late st Contact Info) Description 11/11/2024 Telephone [facility] Pediatrics - Diabetes Mgmt [address] [place] [address]. [place] [address] Manasa Flores, DO [address] [place] [phone] General Social History Tobacco Use Types Packs/Day Years [...] Telephone Encounter - Lizeth Garrett RN - 11/11/2024 8:43 AM CST Received refill request for Dexcom G6 sensors. Last seen: 08/31/2023 Next follow up scheduled: mother spoke with David Coulter RN in 11/[address] Jack Fuentes with [facility] medical group in [facility]. When called number in chart phone rings and no voicemail. When called mother's number voicemail is full. Will assume she has transferred care. [facility] documented in this encounter Plan of Treatment Not on file documented as of this encounter Visit Diagnoses Not on filedocumented in this encounter Care Teams Depalletizer Operator Relationship Specialty Start Date End Date Alvarez Prabhakar MD [address] [place] [phone] PCP - General 12/12/11 documented as of this encounter
--- OUTSIDE RECORDS SUMMARY | 2024-11-22 05:18 | XMS_ITS | Encounter Summary ---
Author Organization [facility] Address [address] [facility] [place] [address] Care Team Providers Care Hand Spinner Name Role Phone Alvarez Prabhakar MD Primary Care Provider [phone] Encounter Details Date Type Department Care Team (Latest Contact Info) Description 06/03/2023 Travel Social History Tobacco Use Types Packs/Day [...] on filedocumented in this encounter Care Teams Hand Spinner Relationship Specialty Start Date End Date Alvarez Prabhakar MD [address] [place] [place] [id number] PCP - General 12/12/11 documented as of this encounter
--- OUTSIDE RECORDS SUMMARY | 2024-11-22 05:18 | XMS_ITS | Encounter Summary ---
Author Organization [facility] Address [address] [facility] [place] [address] Care Team Providers Care Air Shovel Operator Name Role Phone Alvarez Prabhakar MD Primary Care Provider [phone] Reason for Referral * Consultation (Routine) - Closed Specialty Diagnoses / Procedures Referred By Contkyra t Referred To Contact Nutrition Services Diagnoses Type 1 diabetes mellitus without complication (HCC) Breana Olivas MD Clin Nutrition [address] [place] [id number] Referral ID Status Reason Start Date Expiration Date V isits Requested Visits Authorized [id number] Closed Specialty Services Required 08/28/2023 08/27/2024 4 4 Encounter Details Date Type Department Care Team (Late st Contact Info) Description 08/28/2023 Orders Only [facility] Pediatrics - Endocrinology [address] [place] [id number] Breana Olivas MD Type 1 diabetes mellitus without complication (HCC) Social History Tobacco Use Types Packs/Day Years [...] you are drinking? Patient does not drink 3 Frequency of Binge Drinking Not on file [...] as of this encounter Plan of Treatment Scheduled Orders Name Type Priority Associated Diagnoses Orde r Schedule HEMOGLOBIN A1C - POCT () ALEXANDRA Point of Care Testing Routine Type 1 diabetes mellitus without complication (HCC) 1 Occurrences starting 08/28/2023 until 08/22/2024 Scheduled Referrals Name Type Priority Associated Diagnoses Orde r Schedule Referral to Medical Nutrition Therapy Outpatient Referral Routine Type 1 diabetes mellitus without complication (HCC) 4 Occurrences starting 08/28/2023 until 08/27/2024 documented as of this encounter Visit Diagnoses Diagnosis Type 1 diabetes mellitus without complication (HCC)- Primary Type I (juvenile type) diabetes mellitus without mention of complication, not stated as uncontrolled documented in this encounter Care Teams Air Shovel Operator Relationship Specialty Start Date End Date Alvarez Prabhakar MD [address] [place] [address] PCP - General 12/12/11 documented as of this encounter
--- OUTSIDE RECORDS SUMMARY | 2024-11-22 05:18 | XMS_ITS | Encounter Summary ---
Author Organization [facility] Address [address] [place] [address] Care Team Providers Care Keyboard Specialist Name Role Phone Alvarez Prabhakar MD Primary Care Provider [phone] Reason for Referral * Consultation (Routine) - Closed Specialty Diagnoses / Procedures Referred By Fan t Referred To Contact Nutrition Services Diagnoses Type 1 diabetes mellitus without complication (HCC) Breana Olivas MD Clin Nutrition [address] [place] [id number] Referral ID Status Reason Start Date Expiration Date V isits Requested Visits Authorized [id number] Closed Specialty Services Required 08/28/2023 08/27/2024 4 4 Reason for Visit * Reason Comments Follow-up Encounter Details Date Type Department Care Team (Latest Contact Info) Description 08/31/2023 10:30 AM CDT - 08/31/2023 11:59 PM CDT Hospital Encounter [facility] Pediatrics - Diabetes Mgmt [address] [place] [id number] Breana Olivas MD Discharge Disposition: Home or Self Care Social [...] Pressure 108/64 08/31/2023 10:54 AM CDT Pulse - - Temperature - - Respiratory Rate - - Oxygen Saturation - - Inhaled Oxygen Concentration - - Weight 52.4 kg (115 lb 8.3 oz) 08/31/20 10:54 AM CDT Height 159.6 cm (5' 2.84 ) 08/31/2023 1 0:54 AM CDT Body Mass Index 20.57 08/31/2023 10:54 AM CDT Body Mass Index Percentile 37.49% 08/31 10:54 AM CDT Growth Chart: [facility] (Girls, 2- 20 Years) documented in this [...] No 08/01/2023 documented as of this encounter Discharge Instructions * Patient Instructions* Breana Olivas MD - 08/31/2023 11:50 AM CDT Lower your Lantus dose to 11 Units; re-evaluate in one week, can lower to 10 Units then for more low BS values overnight. I am retiring at the end of October. We can try to get you started on a pump before then, or you can do so with your new coil rewind machine operator. Recommend follow up with the [facility] group in [place]. Let me know of you need a referral. documented in this encounter Medications at Time of Discharge Medication Sig Dispensed Refills Start Date End Date Accu-Chek FastClix LancetsIndications:Ty pe 1 diabetes mellitus without complication (HCC) Use for blood glucose monitoring 4-6 times/day. 200 Each 11 05/22/2023 acetone,urine, (Ketostix) stripIndications:Type 1 diabetes mellitus without complication (HCC) Use as needed (use when blood sugar is greater than 250 or when ill. ) 100 strip 4 08/03/2023 acetone,urine, (KETOSTIX) stripIndications:Type 1 diabetes mellitus without [...] Kit 0 08/18/2012 Blood Glucose Monitoring Suppl (GRAM Acquisition VERIO IQ SYSTEM) w/Device KIT Use 1 kit as directed 2 kit 12/16/2019 Continuous Blood Gluc Day Care Home Mother (Dexcom G6 Day Care Home Mother) DEVIIndications:Type 1 diabetes mellitus without complication (HCC) Use 1 Each as directed 1 Each 06/09/2023 glucagon (GLUCAGON EMERGENCY) injectionIndications: Type 1 diabetes mellitus without complication (HCC) Inject 1 mg into muscle as directed for severe low blood sugar reaction. 2 kit 07/11/2019 injection device-insulin (NOVOPEN ECHO) deviceIndications:Typ e 1 diabetes mellitus without complication (HCC) Use for insulin delivery. 1 device 1 10/20/2018 Insulin Pen Needle (BD Pen Needle Drake U/F) 32G X 4 MM MISCIndications:Type 1 diabetes mellitus without complication (HCC) Use 4-6 Each once daily 200 Each 11 08/03/2023 insulin syringe-needle (BD ULTRAFINE II) 31G X 5/16 0.3 ML syringe USE FOR INJECTION DAILY 100 Each 04/17/2020 Insulin Syringe-Needle U-100 (SAFESNAP INSULIN SYRINGE) 30G X 04/07 0.5 ML MISC Use 1 syringe as directed 50 Each 5 03/11/2021 Lantus SoloStar pen INJECT 18 UNITS UNDER SKIN ONCE NIGHTLY 15 mL 5 08/19/2023 OneTouch Delica Lancets 33G MISCIndications:Type 1 diabetes mellitus without complication (HCC) Use 1 Each as directed 200 Each 3 08/03/2023 oxybutynin CR 24hr (DITROPAN-XL) 10 MG tablet Take 1 (one) tablet by mouth at bedtime 30 tablet 11 06/20/2021 blood glucose (OneTouch Verio) test stripIndications:Type 1 diabetes mellitus without complication (HCC) Use to test blood sugar 1-2 times per day while on Dexcom 100 strip 5 08/03/2023 12/04/2023 Continuous Blood Gluc Sensor (Dexcom G6 Sensor) MISCIndications:Type 1 diabetes mellitus without complication (HCC) Inject 1 Each subcutaneously every 10 days 3 Each 5 06/26/2023 12/04/2023 Continuous Blood Gluc Transmit (Dexcom G6 Transmitter) MISCIndications:Type 1 diabetes mellitus without complication (HCC) Use 1 Each Every 90 days 1 Each 3 08/03/2023 12/04/2023 Glucagon (Baqsimi Two Pack) 3 MG/DOSE POWD [place] 3 mg into the nose as needed (adminsiter as directed for severe low blood sugar) 1 Each 08/02/2023 11/09/2023 insulin lispro (HumaLOG;ADMelog) 100 UNIT/ML penIndications:Type 1 diabetes mellitus without complication (HCC) INJECT 1 UNIT FOR EVERY 7 CARBOHYDRATES, WITH A MAX OF 40 UNITS PER DAY. 45 mL 04/24/2023 11/06/2023 documented as of this encounter Progress Notes * Breana Olivas MD - 08/31/2023 1:47 PM CDT Images from the original note were not included. Anaid Dimas and her mother were seen in our Pediatric Endocrinology offices on 08/31/23. She is an 17 year old teen who is followed for type 1 diabetes diagnosed in 08/04. Interval History: Healthy other than a recent admission from discharge from 08/01- 09/14. She presented in moderate DKA due to the lack of access to insulin pen needles. An additional episode of severe hypoglycemia treated with Baqsimi was reported. Vaccinations: Covid Vaccination: Yes Annual influenza vaccination: Yes, given today Diabetes Therapies: Basaglar 12 Units at 9 PM; dose lowered by Anaid a few weeks ago after another episode of severehypoglycemia. Humalog 1 Unit: 7 grams; correction 1 Unit: 40/150. Total daily insulin up to 52 Units (0.99 U/kg/d). Injections given in the extremities and abdomen by Anaid. Current Prescriptions: Current Outpatient Medications: ??? Accu-Chek FastClix Lancets, Use for blood glucose monitoring 4-6 times/day. ??? acetone,urine, (Ketostix) strip, Use as needed (use when blood sugar is greater than 250 or when ill. ) ??? acetone,urine, (KETOSTIX) strip, Use as directed for urine ketone checks if blood sugar above 250 or if ill. Dispense one bottle for school and one for home. ??? blood glucose (OneTouch Verio) test strip, Use to test blood sugar 1-2 times per day while on Dexcom ??? Blood Glucose Monitoring Suppl (ACCU-CHEK DRAKE SMARTVIEW) W/DEVICE KIT kit, Use for blood glucose monitoring. ??? Blood Glucose Monitoring Suppl (ONETOUCH VERIO IQ SYSTEM) w/Device KIT, 1 kit, Does not apply, DIRECTED ??? Continuous Blood Gluc Day Care Home Mother (Dexcom G6 Day Care Home Mother) JOSUÉ, 1 Each, Does not apply, DIRECTED ??? Continuous Blood Gluc Sensor (Dexcom G6 Sensor) MISC, 1 Each, Subcutaneous, q10 days ??? Continuous Blood Gluc Transmit (Dexcom G6 Transmitter) MISC, 1 Each, Does not apply, q 90 days ??? Glucagon (Baqsimi Two Pack) 3 MG/DOSE POWD, 3 mg, Nasal, PRN ??? glucagon (GLUCAGON EMERGENCY) injection, Inject 1 mg into muscle as directed for severe low blood sugar reaction. ??? injection device-insulin (NOVOPEN ECHO) device, Use for insulin delivery. ??? insulin lispro (HumaLOG;ADMelog) 100 UNIT/ML pen, INJECT 1 UNIT FOR EVERY 7 CARBOHYDRATES, WITHA MAX OF 40 UNITS PER DAY. ??? Insulin Pen Needle (BD Pen Needle Drake U/F) 32G X 4 MM MISC, 4-6 Each, Does not apply, QDAY ??? insulin syringe-needle (BD ULTRAFINE II) 31G X 5/16 0.3 ML syringe, USE FOR INJECTION DAILY ??? Insulin Syringe-Needle U-100 (SAFESNAP INSULIN SYRINGE) 30G X 5/16 0.5 ML MISC, 1 syringe, Does not apply, DIRECTED ??? Lantus SoloStar pen, INJECT 18 UNITS UNDER SKIN ONCE NIGHTLY ??? OneTouch Delica Lancets 33G MISC, 1 Each, Does not apply, DIRECTED ??? oxybutynin CR 24hr (DITROPAN-XL) 10 MG tablet, 10 mg, Oral, AT BEDTIME No Known Allergies Meal Plan: Anaid Dimas/her parent(s) report the child is on a carb- counting meal plan, counting about half the time. Anaid Dimas last saw our senior reservations agent today. Sports/Physical Exercise: Walking and biking Blood Glucose Monitoring: Anaid Dimas's glucose monitoring is done with a Dexcom G6 sensor with a One Touch Verio meteras back-up. The reported target range is 70-120 (should be 80-150). Her sensor download was reviewed: Breakfast Lunch Dinner Bedtime Overnight Other Range Mean ~150 ~240 ~180 ~225 Comments CGM downloads were reviewed and interpreted ([facility] [address]), 2 weeks (08/18-08/31/23) of CGM data were available. The following trends and observations were noted: Time in target 41% around an average BS of 197. Sensor glucose range over this period was <70 to>400. Best mean BS at 4 AM and highest after lunch. Hypoglycemia: Frequency/Treatment: 3-4 times per week. Anaid recognizes her hypoglycemia when her blood sugar is <=70, characterized by shaking. Treatment is adequate (juice or fruit) and an emergency nasal glucagon kit is available. Urine Ketone Monitoring: Admits to not checking. Review of Systems: General: low energy, erratic sleep schedule, good appetite Skin: negative Eyes: normal vision; last dilated eye exam in Jan 2022 ENT: brushes teeth twice daily, sees dentist Respiratory: negative, no snoring GI: normal BM every 2 days : frequent enuresis, last saw Urology in 06/12 with Ditropan ineffective Neurologic: no h/o seizure(s) Psychiatric: mother unhappy with her erratic sleep schedule; PHQ-9 depression score 9, denies depression Endocrine: negative All other systems reviewed and were negative. 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 Days of school missed related to diabetes: 1. Physical Examination: BP 108/64 Ht 1.596 m (5' 2.84 ) Wt 52.4 kg (115 lb 8.3 oz) LMP 08/10/2023 (Approximate) BMI20.57 kg/m?? 28 %ile (Z= -0.58) based on [facility] (Girls, 2-20 Years) brtlzx-eur-jjd data using vitals from 08/31/2023. 29 %ile (Z= -0.56) based on CDC (Girls, 2-20 Years) Ncbfcbx-tva-uwv data based on Stature recordedon 08/31/2023. Body mass index is 20.57 kg/m??. 37 %ile (Z= -0.32) based on CDC (Girls, 2-20 Years) BMI-for-age based on BMI available as of 08/31/2023. General: Well-appearing, WDWN, somewhat immature, pleasant teen. Skin/Hair/Nails: Warm and dry. Insulin lipohypertrophy on the left arm and right thigh. No observable rashes. Eyes: Sclerae clear, PERRLA, EOMs intact; no abnormal funduscopic findings. Dentition: Good hygiene. First wisdom tooth erupting. Neck: Supple. Thyroid not enlarged. Chest: Symmetric. Lungs clear to auscultation, unlabored breathing. CV system unremarkable with regular heart rate and rhythm, normal S1/S2, no murmurs, rubs, or gallops. Abdomen: Soft, non-tender, without organ enlargement or masses. Pubertal maturation: Not examined. Extremities: No cyanosis or edema. Neurologic system: Non-focal. DTRs 2+ and equal. Normal sensation for light touch and vibration. ID Tag Status: None Laboratory Data: Hospital Encounter on 08/31/23 HEMOGLOBIN A1C - POCT INTERFACED Result Value Ref Range Hemoglobin A1C POCT 7.2 (H) <5.7 % Estimated Average Glucose 160 mg/dL Assessment: Type 1 diabetes of 12 years' duration under fair control; HbA1C is acceptable but has excessive hypoglycemia, some severe, and control is erratic on sensor review No known diabetes complications or autoimmune/metabolic co-morbidities Psychological health is fair; PHQ-9 score 9 with 3 points each for sleep issues and fatigue and 2 for little interest/pleasure Family management/support is average Management Plan: Based on CGM interpretation the following recommendation/s were made: Lower your Lantus dose to 11 Units; re-evaluate in one week, can lower to 10 Units for more low BS values overnight. Injection site rotation was reviewed. Education was done by me on insulin pump therapy. Anaid is interested in the Tandem t:slim pump with Synfora-My Perfect Gig technology. Influenza vaccination was given. Consultation was done with Manasa Phoenix RD. Eliana Dominguez RN, did a Teen Transition visit and e-mailed our pump packet. Suggested another evaluation with Makenna Staples NP, of Pediatric Urology. Follow up with an adult coil rewind machine operator, potentially the [facility] group in [place]. Summary: 1. 12-year history of type 1 diabetes under fair to poor control, improved over the past 2 years with HbA1C down from 10-11% to 7-8%. 2. Last diabetes-related hospitalization was in 08/15 for moderate DKA; four total re-admissions, one in [place]. 3. Lab studies: Last microalbumin:Cr ratio 5 mg/g in 05/15 , lipid profile with cholesterol 187 (WST680, HDL 73) and triglycerides 62 mg/dl in 07/13, TSH 0.769 in 06/14, and TTG IgA <2 U/ml in 06/14. 4. Other pertinent diagnoses: Enuresis. I spent 45 minutes on this visit, including chart review, the H&P, teaching, coordination of care, review of discharge instructions, and composing this note. Breana Olivas MD [phone] CC: Alvarez Prabhakar MD [phone] / [facility] [phone] Date: 08/31/2023 1:47 PM * Christine Biswas RN - 08/31/2023 12:22 PM CDT Met with Anaid and her Mom. Answered questions on insulin pumps. Provided pt with a Insulin pump quiz copy. Sent insulin pump quiz and pump information to Mom at [email or web address] Transition Visit An Off to College booklet was given to the patient. Anaid is planning to become a POSTIE. I explained the process for transitioning from a Pediatric Senior Office Support Assistant Sosa to an Adult Senior Office Support Assistant Sosa. They have been referred to [facility] Endocrinologists. I discussed the relationship between diabetes andhealthy eating, driving, tobacco, alcohol, drugs, and sexual health. I discussed the Surviving Sick Days handout, as well as sick day management and DKA prevention. I reviewed scenarios that warrant an immediate call to the diabetes health care team. Dr. Olivas said she can transition to Adult provider when she is ready based on when she decides to start an insulin pump. * Christine Biswas RN - 08/31/2023 12:00 PM CDT Transition Visit ?I met with ??for the diabetes transition process. An Off to College booklet??was givento the patient. I explained the process for transitioning from a Pediatric Senior Office Support Assistant Sosa to an Adult Senior Office Support Assistant Sosa. I discussed the relationship between diabetes and ??healthy eating, driving, tobacco, alcohol, drugs, and sexual health. I discussed the Surviving Sick Days handout, as well as sick day management and DKA prevention. I reviewed scenarios that warrant an immediate call to the diabetes health care team. ??I discussed the handouts that review physical activity and it's effect on blood glucose. RD met with patient to review carbohydrate choices and counting, as well as relevant apps for tablets and/or phones. ?? is currently covered by insurance. I stressed the importance of maintaining insurance coverage at all times, and I explained the ramifications of letting coverage lapse. I reviewed the recommendedannual lab work and screenings for adults with type 1 diabetes. ?? I encouraged the patient to select an adult coil rewind machine operator and call that office to determine if a referral is needed. I explained that it is importanct to have an appointment with the new physician prior to transition from [facility].??All questions addressed at this time. I asked patient tocall the office with any questions or concerns. I made her aware that we are his provider until he has fully established care with an adult coil rewind machine operator. Parents and patient agree with plan.? documented in this encounter Consult Notes * Subha Phoenix, KAREN/LD - 08/31/2023 11:01 AM CDT 08/31/2023 Diabetes Clinical Nutrition Note Assessment & Plan Anaid is a 17 year old female who has completed an encounter for Medical Nutrition Therapy for annual diabetes nutrition assessment. The encounter diagnosis was Type 1 diabetes mellitus without complication (CMS/HCC). Past Medical History: Diagnosis Date ??? Diabetic ketoacidosis without coma associated with type 1 diabetes mellitus (CMS/HCC) 03/03/2021 ??? NEGATIVE PAST MEDICAL HISTORY - SEE PROBLEM LIST Anthropometrics: Weight: 52.4 kg (115 lb 8.3 oz) 28 %ile (Z= -0.58) based on CDC (Girls, 2-20 Years) qvlisq-gtc-bch data using vitals from 08/31/2023. Height: 159.6 cm (5' 2.84 ) 29 %ile (Z= -0.56) based on CDC (Girls, 2-20 Years) Qswwtua-gpf-gua data based on Stature recorded on 08/31/2023. BMI: Body mass index is 20.57 kg/m??. Labs/Tests/Procedures Recent Labs Component Name 08/31/23 1053 08/02/23 0347 05/18/23 0853 HGBA1C 7.2* 7.3* 7.0* Recent Labs Component Name 07/09/21 1138 09/19/20 1441 09/09/16 0910 CHOL 187* 239* 180* TRIG 62 211* 255 HDL 73 80 65 LDLCALC 102* 117* 64 Medications: Current Outpatient Medications Medication ??? Accu-Chek FastClix Lancets ??? acetone,urine, (Ketostix) strip ??? acetone,urine, (KETOSTIX) strip ??? blood glucose (OneTouch Verio) test strip ??? Blood Glucose Monitoring Suppl (ACCU-CHEK DRAKE SMARTVIEW) W/DEVICE KIT kit ??? Blood Glucose Monitoring Suppl (ONETOUCH VERIO IQ SYSTEM) w/Device KIT ??? Continuous Blood Gluc Day Care Home Mother (Dexcom G6 Day Care Home Mother) JOSUÉ ??? Continuous Blood Gluc Sensor (Dexcom G6 Sensor) MISC ??? Continuous Blood Gluc Transmit (Dexcom G6 Transmitter) MISC ??? Glucagon (Baqsimi Two Pack) 3 MG/DOSE POWD ??? glucagon (GLUCAGON EMERGENCY) injection ??? injection device-insulin (NOVOPEN ECHO) device ??? insulin lispro (HumaLOG;ADMelog) 100 UNIT/ML pen ??? Insulin Pen Needle (BD Pen Needle Drake U/F) 32G X 4 MM MISC ??? insulin syringe-needle (BD ULTRAFINE II) 31G X 5/16 0.3 ML syringe ??? Insulin Syringe-Needle U-100 (SAFESNAP INSULIN SYRINGE) 30G X 5/16 0.5 ML MISC ??? Lantus SoloStar pen ??? OneTouch Delica Lancets 33G MISC ??? oxybutynin CR 24hr (DITROPAN-XL) 10 MG tablet No current facility-administered medications for this encounter. Estimated Needs: KCAL: 40 kcal/kg Assessment: Caregiver's main questions and concerns today are: Anaid is here today with her mother. Current insulin regimen: multiple daily injections Monitoring system: CGM Diabetes management and current carbohydrate counting practices: google, measuring cups, estimationbased on experience Eating schedule: Breakfast: cereal (cheerios, frosted flakes), pancakes or skips Lunch: skips or packs from home: leftovers, chips and fruit Dinner: shrimp fried rice and chicken Snacks: chips, popcorn, fruit Beverages: calorie free drinks, water, propel Eating location: bedroom Family meals: no Dining Out:1-2 times/week. Physical activity: walking, biking Current barriers to diabetes control and age appropriate eating/feeding: skipping meals, taking insulin before eating. Nutrition Care Process Nutrition Diagnostic Statement: Altered nutrition-related lab values related to: endocrine dysfunction as evidenced by: elevated HgbA1c or plasma glucose Nutrition Intervention: Nutrition Counseling - Encouraged a diet with enough nutrition, variety and satisfaction. - Discussed nutritional adequacy and eating consistently throughout the day. - Discussed hunger cues. - Encouraged Anaid to experiment with eating without distraction. Materials provided: None Monitoring: HgbA1C Evaluation: Nutrition Goal: Biochemical data will be improved/normalized Jose Francisco Phoenix, MS, RD, LD 22 minutes have been spent in providing nutrition counseling and nutrition education. Expect compliance. Follow up with RD in 1 year. documented in this encounter Plan of Treatment Scheduled Referrals Name Type Priority Associated Diagnoses Orde r Schedule Referral to Medical Nutrition Therapy Outpatient Referral Routine Type 1 diabetes mellitus without complication (HCC) 1 Occurrences starting 08/31/2023 until 08/31/2023 documented as of this encounter Procedures Procedure Name Priority Date/Time Associated Diagnosis Comments HEMOGLOBIN A1C - POCT INTERFACED Routine 08/31/2023 10:53 AM CDT documented in this encounter Results * (ABNORMAL) HEMOGLOBIN A1C - POCT INTERFACED (08/31/2023 10:53 AM CDT) Hemoglobin A1C POCT 7.2(H) <5.7 % 08/31/2023 11:00 AM CDT [facility] Estimated Average Glucose 160 mg/dL 08/31/2023 11:00 AM CDT [facility] Blood BLOOD SPECIMEN / Unknown 08/31/2023 10:53 AM CDT 08/31/2023 11:00 AM CDT Narrative [facility] - 08/31/2023 11:00 AM CDT HbA1c [...] POINT OF CARE ORDERABLES Performing Organization Address City/State/[facility] Co de Phone Number [facility] [place] [address] documented in this encounter Visit Diagnoses Diagnosis Type 1 diabetes mellitus without complication (HCC) Type I (juvenile type) diabetes mellitus without mention of complication, not stated as uncontrolled documented in this encounter Care Teams Keyboard Specialist Relationship Specialty Start Date End Date Alvarez Prabhakar MD [address] [place] [address] PCP - General 12/12/11 documented as of this encounter
--- OUTSIDE RECORDS SUMMARY | 2024-11-22 05:18 | XMS_ITS | Encounter Summary ---
Author Organization [facility] Address [address] [place] [address] Care Team Providers Care Grassland Conservationist Name Role Phone Alvarez Prabhakar MD Primary Care Provider [phone] Encounter Details Date Type Department Care Team (Late st Contact Info) Description 08/28/2023 Orders Only [facility] Pediatrics - Endocrinology [address] [place] [address] Braena Olivas MD Type 1 diabetes mellitus without [...] uncontrolled documented in this encounter Care Teams Grassland Conservationist Relationship Specialty Start Date End Date Alvarez Prabhakar MD [address] [place] [address] PCP - General 12/12/11 documented as of this encounter
--- OUTSIDE RECORDS SUMMARY | 2024-11-22 05:18 | XMS_ITS | Encounter Summary ---
Author Organization [facility] Address [address] [place] [address] Care Team Providers Care Machine Wood Sander Name Role Phone Alvarez Prabhakar MD Primary Care Provider [phone] Reason for Visit * Reason Onset Date Comments MEDICATION REFILL 06/26/2023 Encounter Details Date Type Department Care Team (Late st Contact Info) Description 06/26/2023 Refill [facility] Pediatrics - Diabetes [address] [address] Breana Olivas MD MEDICATION REFILL Social History [...] Telephone Encounter - Lizeth Garrett RN - 06/26/2023 8:21 AM CDT Last seen 05/18/23. documented in this encounter Plan of Treatment Not on file documented as of this encounter Visit Diagnoses Diagnosis Type 1 diabetes mellitus without complication (HCC) Type I (juvenile type) diabetes mellitus without mention of complication, not stated as uncontrolled documented in this encounter Care Teams Machine Wood Sander Relationship Specialty Start Date End Date Alvarez Prabhakar MD [address] [place] [id number] PCP - General 12/12/11 documented as of this encounter
--- OUTSIDE RECORDS SUMMARY | 2024-11-22 05:18 | XMS_ITS | Encounter Summary ---
Author Organization [facility] Address [address] [place] [address] Care Team Providers Care Repairer Cylinder Heads Name Role Phone Alvarez Prabhakar MD Primary Care Provider [phone] Reason for Visit * Reason Onset Date Comments Scheduling 08/03/2023 Encounter Details Date Type Department Care Team (Late st Contact Info) Description 08/03/2023 Telephone [facility] Pediatrics - Endocrinology [address] [facility] [place] [address] Kadeem Trujillo Scheduling Social History Tobacco Use Types Packs/Day Years [...] Miscellaneous Notes * Telephone Encounter - Kadeem Trujillo - 08/03/2023 9:18 AM CDT Called # below to schedule follow up diabetes appointment. Unable to leave voicemail. Sending No Contact Letter. # [phone] (home) -David Trujillo documented in this encounter Plan of Treatment Not on file documented as of this encounter Visit Diagnoses Not on filedocumented in this encounter Care Teams Repairer Cylinder Heads Relationship Specialty Start Date End Date Alvarez Prabhakar MD [address] [place] [id number] PCP - General 12/12/11 documented as of this encounter
--- OUTSIDE RECORDS SUMMARY | 2024-11-22 05:18 | XMS_ITS | Encounter Summary ---
Author Organization [facility] Address [address] [place] [address] Care Team Providers Care Medical Hospital Sales Name Role Phone Alvarez Prabhakar MD Primary Care Provider [phone] Reason for Visit * Reason Comments Refill Request Encounter Details Date Type Department Care Team (Late st Contact Info) Description 10/23/2022 Refill [facility] Pediatrics - Diabetes Mgmt [facility] [place] [address] Jeanne Wahl, DO [facility] [place] [address] Refill Request Social History Tobacco Use Types [...] on filedocumented in this encounter Care Teams Medical Hospital Sales Relationship Specialty Start Date End Date Alvarez Prabhakar MD [address] [place] [address] PCP - General 12/12/11 documented as of this encounter
--- OUTSIDE RECORDS SUMMARY | 2024-11-22 05:18 | XMS_ITS | Encounter Summary ---
Author Organization [facility] Address [address] [place] [address] Care Team Providers Care Athletic Equipment Custodian Name Role Phone Alvarez Prabhakar MD Primary Care Provider [phone] Reason for Visit * Reason Onset Date Comments MEDICATION REFILL 11/09/2023 Encounter Details Date Type Department Care Team (Late st Contact Info) Description 11/09/2023 Refill [facility] Pediatrics - Diabetes [address] [address] Breana Olivas MD MEDICATION REFILL Social History [...] on filedocumented in this encounter Care Teams Athletic Equipment Custodian Relationship Specialty Start Date End Date Alvarez Prabhakar MD [address] [place] [address] PCP - General 12/12/11 documented as of this encounter
--- OUTSIDE RECORDS SUMMARY | 2024-11-22 05:18 | XMS_ITS | Encounter Summary ---
Author Organization [facility] Address [address] [place] [address] Care Team Providers Care Discharge Coordinator Name Role Phone Alvarez Prabhakar MD Primary Care Provider [phone] Reason for Referral * Consultation (Routine) - Closed Specialty Diagnoses / Procedures Referred By Fan t Referred To Contact Nutrition Services Diagnoses Type 1 diabetes mellitus without complication (HCC) Breana Olivas MD Clin Nutrition [address] [place] [id number] Referral ID Status Reason Start Date Expiration Date V isits Requested Visits Authorized [id number] Closed Specialty Services Required 07/21/2022 07/21/2023 4 4 Reason for Visit * Reason Comments Diabetes Encounter Details Date Type Department Care Team (Latest Contact Info) Description 07/22/2022 8:04 AM CDT - 07/22/2022 11:59 PM CDT Hospital Encounter [facility] Pediatrics - Diabetes Mgmt [address] [place] [address] Breana Olivas MD Discharge Disposition: Home [...] AM CDT documented as of this encounter Last Filed Vital Signs Vital Sign Reading Time Taken Comments Blood Pressure 120/58 07/22/2022 8:10 AM CDT Pulse - - Temperature - - Respiratory Rate - - Oxygen Saturation - - Inhaled Oxygen Concentration - - Weight 54 kg (119 lb 0.8 oz) 07/22/2022 8:10 AM CDT Height 159 cm (5' 2.6 ) 07/22/2022 8:10 AM CDT Body Mass Index 21.36 07/22/2022 8:10 AM CDT Body Mass Index Percentile 52.21% 07/22/2022 8:1 0 AM CDT Growth Chart: [facility] (Girls, 2- 20 Years) documented in [...] * Patient Instructions* Breana Olivas MD - 07/22/2022 9:06 AM CDT Lower the Lantus dose to 18 Units. I would like to see you always count carbs and dose 1 Unit per 5 grams with a correction of needed. Please call our nurses at for Dexcom issues. documented in this encounter Medications at Time [...] Kit 0 08/18/2012 Blood Glucose Monitoring Suppl (SummuS Render VERIO IQ SYSTEM) w/Device KIT Use 1 [...] 4-6 times/day. 200 Each 11 08/04/2016 05/22/2023 ACCU-CHEK SMARTVIEW test stripIndications:Type 1 diabetes mellitus without complication, with long-term current use of insulin (HCC) USE TO TEST BLOOD SUGAR 4 TO 6 TIMES DAILY 200 strip 11 12/15/2019 10/24/2022 acetone,urine, (KETOSTIX) stripIndications:Type 1 diabetes mellitus without complication (HCC) Use as needed (use when blood sugar is greater than 250 or when ill. ) 100 strip 11 04/15/2022 04/23/2023 Basaglar KwikPen (BASAGLAR) pen Inject 30 units daily or as directed 15 mL 5 06/17/2021 10/24/2022 Continuous Blood Gluc Sensor (DEXCOM G6 SENSOR) MISC Use 1 Each every 10 days 3 Each 6 07/03/2021 10/24/2022 Continuous Blood Gluc Transmit (DEXCOM G6 TRANSMITTER) MISC Use 1 Each Every 90 days 1 Each 3 07/03/2021 06/09/2023 Glucagon (BAQSIMI TWO PACK) 3 MG/DOSE POWD [place] 1 Each into the nose as directed Administer 3 mg intranasally for severe low blood sugar 1 Each 04/15/2022 05/08/2023 insulin lispro (HUMALOG;ADMELOG) 100 UNIT/ML penIndications:Type 1 diabetes mellitus without complication (HCC) USE DIRECTED 1 UNIT FOR EVERY 10 CARBOHYDRATES WITH A MAX OF 50 UNITS PER DAY 15 mL 3 09/09/2021 10/27/2022 insulin lispro (HUMALOG;ADMELOG) 100 UNIT/ML pen Inject [...] a day 200 Each 4 04/15/2022 04/23/2023 ONETOUCH VERIO test strip USE TO TEST BLOOD SUGAR 5-9 TIMES DAILY 200 strip 4 08/19/2021 10/24/2022 documented as of this encounter Progress Notes * Lyric Ardon, RN - 07/22/2022 11:59 PM CDT I met with Anaid in diabetes clinic on 07-22-22 to discuss issues with her Dexcom. Anaid is not using the dianna Dexcom G6 or Clarity currently. I gave her the contact number for Dexcom to call anddiscussed what is needed to connect via blue [employer] with Dexcom. I asked that Anaid call the diabetes office when connected, to send an email invite to : [email or web address]. * Breana Olivas MD - 07/22/2022 10:28 AM CDT Images from the original note were not included. Anaid Dimas was seen alone in our Pediatric Endocrinology offices on 07/22/22. She is a 16 year old 9 month old young woman who is followed for type 1 diabetes diagnosed in 08/04. Interval History: Healthy other than a head cold currently since last seen in March. No severe hypoglycemia or ketonuria reported. Vaccinations: Covid Vaccination: Yes Annual influenza vaccination: No Diabetes Therapies: Lantus 20 Units at 10 PM. Humalog at guesstimated doses:6 Units for breakfast, 9 Units for lunch, no insulin for afternoon snack (bag of Cheez Its), and 10 Units for dinner. Correction is 1 Unit: 50/150. Total daily insulin dose ~45 Units. Injections given in the abdomen and legs by Anaid. Current Prescriptions: Current Outpatient Medications: ??? ACCU-CHEK FASTCLIX LANCETS, Use for blood glucose monitoring 4-6 times/day. ??? ACCU-CHEK SMARTVIEW test strip, USE TO TEST BLOOD SUGAR 4 TO 6 TIMES DAILY ??? acetone,urine, (KETOSTIX) strip, Use as needed (use when blood sugar is greater than 250 or when ill. ) ??? acetone,urine, (KETOSTIX) strip, Use as directed for urine ketone checks if blood sugar above 250 or if ill. Dispense one bottle for school and one for home. ??? Basaglar KwikPen (BASAGLAR) pen, Inject 30 units daily or as directed ??? Blood Glucose Monitoring Suppl (ACCU-CHEK DRAKE SMARTVIEW) W/DEVICE KIT kit, Use for blood glucose monitoring. ??? Blood Glucose Monitoring Suppl (ONETOUCH VERIO IQ SYSTEM) w/Device KIT, 1 kit, Does not apply, DIRECTED ??? Continuous Blood Gluc Sensor (DEXCOM G6 SENSOR) MISC, 1 Each, Does not apply, q10 days ??? Continuous Blood Gluc Transmit (DEXCOM G6 [...] ??? insulin lispro (HUMALOG;ADMELOG) 100 UNIT/ML pen, USE DIRECTED 1 UNIT FOR EVERY 10 CARBOHYDRATES WITH A MAX OF 50 UNITS PER DAY ??? insulin lispro (HUMALOG;ADMELOG) 100 UNIT/ML pen, 0-10 Units, Subcutaneous, TID AC ??? Insulin Pen Needle (BD PEN NEEDLE [...] 1 Each, Does not apply, DIRECTED ??? ONETOUCH VERIO test strip, USE TO TEST BLOOD SUGAR 5-9 TIMES DAILY ??? oxybutynin CR 24hr (DITROPAN-XL) 10 MG tablet, 10 mg, Oral, AT BEDTIME No Known Allergies Meal Plan: Anaid Arzola Wing/her parent(s) report the child has meal amounts that are usually unmeasured. Anaid Dimas last saw our fast foods worker today. Sports/Physical Exercise: Biking and stretching Blood Glucose Monitoring: Anaid Dimas's glucose monitoring is done with a One Touch Verio meter, although she aj a Dexcom sensor. The reported target range is 80-150. Her meter download was reviewed: Breakfast Lunch Dinner Bedtime Overnight Other Range Mean ~80 ~180 ~170 ~200 Comments Hypoglycemia: Frequency/Treatment: 1-2 times per week. Anaid recognizes her hypoglycemia when her blood sugar is <62, characterized by shaking and hunger. Treatment is adequate (juice or fruit)and an emergency glucagon kit is available. Urine Ketone Monitoring: Does not test. Review of Systems: General: good energy and appetite Skin: negative Eyes: normal vision; last dilated eye exam in Nov 2020 ENT: brushes teeth twice daily, overdue to see dentist Respiratory: negative GI: normal BM 2-3 x weekly : nocturia lubna nights Neurologic: no h/o seizure(s) Psychiatric: PHQ-9 depression score down to 2 with relaxing activities Endocrine: regular menses All other systems reviewed and were negative. Past Medical History: I have reviewed the patient's medical, surgical, social and family history and the updates are: Lives with mother, grandmother, and sister. 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 and part-time work next year. Physical Examination: BP 120/58 Ht 1.59 m (5' 2.6 ) Wt 54 kg (119 lb 0.8 oz) LMP 06/22/2022 (Approximate) BMI 21.36 kg/m?? 41 %ile (Z= -0.23) based on CDC (Girls, 2-20 Years) pmzxwm-[id number] data using vitals from 07/22/2022. 26 %ile (Z= -0.63) based on CDC (Girls, 2-20 Years) Wgluuyv-iku-mse data based on Stature recordedon 07/22/2022. Body mass index is 21.36 kg/m??. 52 %ile (Z= 0.06) based on CDC (Girls, 2-20 Years) BMI-for-age based on BMI available as of 07/22/2022. General: Well-appearing, WDWN, pleasant teen. Skin/Hair/Nails: Warm and dry. No insulin lipohypertrophy. No observable rashes. Eyes: Sclerae clear, PERRLA, EOMs intact; no abnormal fundoscopic findings. Dentition: Good oral hygiene. Chancre sore pointer out. Neck: Supple. Thyroid not enlarged. Chest: Symmetric. [...] Status: None Laboratory Data: Hospital Encounter on 07/22/22 HEMOGLOBIN A1C - POCT INTERFACED Result Value Ref Range Hemoglobin A1C POCT 7.2 (H) <5.7 % Estimated Average Glucose 160 mg/dL Assessment: Type 1 diabetes of almost 10 years' duration under good control by HbA1C but fair on Dexcom review No known diabetes complications or autoimmune/metabolic co-morbidities. Psychological health seems much better; PHQ-9 score dropped from 19 to 2. Discord noted with her mother at the last visit. Management Plan: Based on CGM interpretation the following recommendation/s were made: 1. Lower the Lantus dose to 18 Units. 2. Strongly recommend carb counting, using a dose of 1 Unit per 5 grams with a correction as needed. Education done on dosing for snacks with 5 or more grams of carbs and ketone testing. Lyric Ardon RN, met with Anaid to help with Dexcom connectivity. Consultation done with Manasa Phoenix RD. Return visit in 4 months. Breana Olivas MD [phone] CC: Alvarez Prabhakar MD [address] / [facility] [id number] Date: 07/22/2022 10:29 AM documented in this encounter Consult Notes * Subha Phoenix RD/LD - 07/22/2022 9:04 AM CDT 07/22/2022 Diabetes Clinical Nutrition Note Assessment & Plan Anaid is a 16 year old female who has completed an encounter for Medical Nutrition Therapy for annual diabetes nutrition assessment. The encounter diagnosis was Type 1 diabetes mellitus without complication. Past Medical History: Diagnosis Date ??? Diabetic ketoacidosis without coma associated with type 1 diabetes mellitus 03/03/2021 ??? NEGATIVE PAST MEDICAL HISTORY - SEE PROBLEM LIST Anthropometrics: Weight: 119 lb 0.8 oz (54 kg) 41 %ile (Z= -0.23) based on [facility] (Girls, 2-20 Years) lvxhih-uea-qqc data using vitals from 07/22/2022. Height: 5' 2.6 (159 cm) 26 %ile (Z= -0.63) based on [facility] (Girls, 2-20 Years) Hszqfjo-fdh-jcm data based on Stature recorded on 07/22/2022. BMI: Body mass index is 21.36 kg/m??. Labs/Tests/Procedures Recent Labs Component Name 07/22/22 0806 04/15/22 1130 04/15/22 1103 HGBA1C 7.2* 8.0* 7.6* Recent Labs Component Name 07/09/21 1138 09/19/20 1441 09/09/16 0910 CHOL 187* 239* 180* TRIG 62 211* 255 HDL 73 80 65 LDLCALC 102* 117* 64 Medications: Current Outpatient Medications Medication ??? ACCU-CHEK FASTCLIX LANCETS ??? ACCU-CHEK SMARTVIEW test strip ??? acetone,urine, (KETOSTIX) strip ??? acetone,urine, (KETOSTIX) strip ??? Basaglar KwikPen (BASAGLAR) pen ??? Blood Glucose Monitoring Suppl (ACCU-CHEK DRAKE SMARTVIEW) W/DEVICE KIT kit ??? Blood Glucose Monitoring Suppl (AvegantUCH VERIO IQ SYSTEM) w/Device KIT ??? Continuous Blood Gluc Sensor (DEXCOM G6 SENSOR) MISC ??? Continuous Blood Gluc Transmit (DEXCOM G6 TRANSMITTER) MISC ??? Glucagon (BAQSIMI TWO PACK) 3 MG/DOSE POWD ??? glucagon (GLUCAGON EMERGENCY) injection ??? injection device-insulin (NOVOPEN ECHO) device ??? insulin lispro (HUMALOG;ADMELOG) 100 UNIT/ML pen ??? insulin lispro (HUMALOG;ADMELOG) 100 UNIT/ML pen ??? Insulin Pen Needle (BD PEN NEEDLE DRAKE U/F) 32G X 4 MM MISC ??? Insulin Pen Needle (BD PEN NEEDLE DRAKE U/F) 32G X 4 MM MISC ??? insulin syringe-needle (BD ULTRAFINE II) 31G X 5/16 0.3 ML syringe ??? Insulin Syringe-Needle U-100 (SAFESNAP INSULIN SYRINGE) 30G X 5/16 0.5 ML MISC ??? OneTouch Delica Lancets 33G MISC ??? ONETOUCH VERIO test strip ??? oxybutynin CR 24hr (DITROPAN-XL) 10 MG tablet No current facility-administered medications for this encounter. Estimated Needs: KCAL: 40 kcal/kg Assessment: Caregiver's main questions and concerns today are: Anaid does not have any nutrition related questions. She reports watching My [employer] [place] [employer] and being fearful of weight gain. Current insulin regimen: 1 unit of insulin per 5 grams CHO Diabetes management and current carbohydrate counting practices: label reading, estimation based onexperience, looks up carb counts online Sleep schedule: wakes around 0530 Eating schedule: Breakfast at school: skips or cereal with milk, granola bar Lunch at school: baked ravioli/chicken elias/sub sandwich with cheese stick, fruit x 2 with milk Dinner: grilled cheese on white bread and a salad Snacks: cheezits Beverages: crystal light, diet cranberry juice, water, milk Eating location: bedroom Family meals: no Dining Out: [employer] (three times/week) Movement: walks around the house, stretching, bike riding Current barriers to diabetes control and age appropriate eating/feeding: suboptimal carb counting per Dr. Olivas. Nutrition Care Process Nutrition Diagnostic Statement: Altered nutrition-related lab values related to: endocrine dysfunction as evidenced by: elevated HgbA1c or plasma glucose Nutrition Intervention: Collaboration with other providers: Spoke with Dr. Olivas. Nutrition Counseling: - Praised current efforts. - Encouraged using measuring cups and the [employer] dianna to assist with carb counting; demonstrated use of the [employer] dianna during the appointment. - Discussed bodies come in different shapes and sizes; encouraged Anaid to focus on her internalqualities. - Encouraged a diet with enough nutrition, variety and satisfaction. Materials provided: None Monitoring: HgbA1C Evaluation: Nutrition Goal: Biochemical data will be improved/normalized Jose Francisco Phoenix, MS, RD, LD 30 minutes have been spent in providing nutrition counseling and nutrition education. Expect compliance. Follow up with RD in 1 year. documented in this encounter Plan of Treatment Scheduled Referrals Name Type Priority Associated Diagnoses Orde r Schedule Referral to Medical Nutrition Therapy Outpatient Referral Routine Type 1 diabetes mellitus without complication (HCC) 1 Occurrences starting 07/22/2022 until 07/22/2022 documented as of this encounter Procedures Procedure Name Priority Date/Time Associated Diagnosis Comments HEMOGLOBIN A1C - POCT INTERFACED Routine 07/22/2022 8:06 AM CDT documented in this encounter Results * (ABNORMAL) HEMOGLOBIN A1C - POCT INTERFACED (07/22/2022 8:06 AM CDT) Pathologist [facility] Hemoglobin A1C POCT 7.2(H) <5.7 % 07/22/2022 8:19 AM CDT [facility] Estimated Average Glucose 160 mg/dL 07/22/2022 8:19 AM T [facility] Blood BLOOD SPECIMEN / Unknown 07/22/2022 8:06 AM CDT 07/22/2022 8:19 AM CDT Narrative [facility] - 07/22/2022 8:19 AM CDT HbA1c Interpretation: Normal: < 5.7% [...] MD LAB - POINT OF CARE ORDERABLES [facility] [address] [place] [address] documented in this encounter Visit Diagnoses Diagnosis Type 1 diabetes mellitus without complication (HCC) Type I (juvenile type) diabetes mellitus without mention of complication, not stated as uncontrolled documented in this encounter Care Teams Discharge Coordinator Relationship Specialty Start Date End Date Alvarez Prabhakar MD [address] [place] [address] PCP - General 12/12/11 documented as of this encounter
--- OUTSIDE RECORDS SUMMARY | 2024-11-22 05:18 | XMS_ITS | Encounter Summary ---
Author Organization [facility] Address [address] [facility] [place] [address] Care Team Providers Care Floor Grinder Name Role Phone Alvarez Prabhakar MD Primary Care Provider [phone] Reason for Visit * Reason Onset Date Comments Update 04/27/2023 Encounter Details Date Type Department Care Team (Late st Contact Info) Description 04/27/2023 Telephone [facility] Pediatrics - Diabetes Mgmt [address] [place] [address] Rosalva Moyer, MEDICAL ASSISTANT FLOAT-PATTERN STAMPER [address] [place] [address] Update Social History Tobacco Use Types Packs/Day Years [...] * Telephone Encounter - Kadeem Coulter - 05/01/2023 8:41 AM CDT Mom called our office stating that Shamika had called stating that Anaid was found unresponsive with a blood sugar of 43. Shamika attempted to give Baqsimi, however mom stated that she does not know if Shamika was successful in administering it. Mom stated that 911 had been called already. Reassured mom that those were the correct steps to take. Asked mom to call our office back once Anaid was stable and we would discuss what could have caused this to occur as well as refill any emergencymedications that might be needed. Mom verbalized understanding. * Telephone Encounter - Lyric Ardon RN - 04/27/2023 11:07 AM CDT Received PA approval for Dexcom G6, approved from 04-23-23 until 06-22-25. documented in this encounter Plan of Treatment Not on file documented as of this encounter Visit Diagnoses Not on filedocumented in this encounter Care Teams Floor Grinder Relationship Specialty Start Date End Date Alvarez Prabhakar MD [address] [place] [id number] PCP - General 12/12/11 documented as of this encounter
--- OUTSIDE RECORDS SUMMARY | 2024-11-22 05:18 | XMS_ITS | Patient Health Summary ---
Author Organization [facility] Address [address] [place] [address] Care Team Providers Care Visual Arts Teacher Name Role Phone Alvarez Prabhakar MD Primary Care Provider [phone] Note from [facility],non-owned Affiliates and Associated Physician Practices is amultiple site organization consisting of ambulatory clinics and hospital sitesin [place], [place], [place] and [place]. This disclosure is being madepursuant to the Care Everywhere program and may not contain all information available regarding this patient. Last updated 18.[facility] Allergies No known active allergies Medications * Be aware that medications may not be up to date on this document. Alwaysverify current medications with the patient. * Blood Glucose Monitoring Suppl (ACCU-CHEK DRAKE SMARTVIEW) W/DEVICE KIT kit (Started 08/18/2012) Use for blood glucose monitoring. * acetone,urine, (KETOSTIX) strip(Started 04/12/2018) Use as directed for urine ketone checks if blood sugar above 250 or if ill. Dispense one bottle forschool and one for home. 3 refills remaining * injection device-insulin (NOVOPEN ECHO) device(Started 10/20/2018) Use for insulin delivery. 1 refill remaining * glucagon (GLUCAGON EMERGENCY) injection(Started 07/11/2019) Inject 1 mg into muscle as directed for severe low blood sugar reaction. * Blood Glucose Monitoring Suppl (Karyopharm TherapeuticsIO IQ SYSTEM) w/Device KIT(Started 12/16/2019) Use 1 kit as directed * insulin syringe-needle (BD ULTRAFINE II) 31G X 5/16 0.3 ML syringe(Started 04/17/2020) USE FOR INJECTION DAILY * Insulin Syringe-Needle U-100 (SAFESNAP INSULIN SYRINGE) 30G X 5/16 0.5 ML MISC(Started 03/11/2021) Use 1 syringe as directed 5 refills by 03/11/2022 * oxybutynin CR 24hr (DITROPAN-XL) 10 MG tablet(Started 06/20/2021) Take 1 (one) tablet by mouth at bedtime 11 refills by 06/20/2022 * Accu-Chek FastClix Lancets(Started 05/22/2023) Use for blood glucose monitoring 4-6 times/day. 11 refills by 05/21/2024 * Continuous Blood Gluc Camp Guard (Dexcom G6 Camp Guard) JOSUÉ(Started 06/09/2023) Use 1 Each as directed * acetone,urine, (Ketostix) strip(Started 08/03/2023) Use as needed (use when blood sugar is greater than 250 or when ill. ) 4 refills by 08/02/2024 * Insulin Pen Needle (BD Pen Needle Drake U/F) 32G X 4 MM MISC(Started 08/03/2023) Use 4-6 Each once daily 11 refills by 08/02/2024 * OneTouch Delica Lancets 33G MISC(Started 08/03/2023) Use 1 Each as directed 3 refills by 08/02/2024 * Lantus SoloStar pen(Started 08/19/2023) INJECT 18 UNITS UNDER SKIN ONCE NIGHTLY 5 refills by 08/18/2024 * insulin lispro (HumaLOG KwikPen) 100 UNIT/ML pen(Started 11/06/2023) INJECT 1 UNIT FOR EVERY 7 CARBOHYDRATES, WITH A MAX OF 40 UNITS PER DAY. 1 refill by 11/05/2024 * Glucagon (Baqsimi Two Pack) 3 MG/DOSE POWD(Started 11/09/2023) Hiram 3 mg into the nose as needed (adminsiter as directed for severe low blood sugar) * blood glucose (OneTouch Verio) test strip(Started 12/04/2023) Use to test blood sugar 1-2 times per day while on Dexcom 5 refills by 12/03/2024 * Continuous Blood Gluc Sensor (Dexcom G6 Sensor) MISC(Started 12/04/2023) Inject 1 Each subcutaneously every 10 days 5 refills by 12/03/2024 * Continuous Blood Gluc Transmit (Dexcom G6 Transmitter) MISC(Started 12/04/2023) Use 1 Each Every 90 days 2 refills by 12/03/2024 Active Problems Problem Noted Date Diagnosed Date Hyperglycemia 08/01/2023 Ganglion cyst of finger of left hand 04/15/2022 Bladder dysfunction 11/22/2020 Type 1 diabetes mellitus without complication Resolved Problems Problem Noted Date Diagnosed Date Resolved Date Diabetic ketoacidosis withou t coma associated with type 1 diabetes mellitus 12/10/2022 08/02/2023 Diabetic ketoacidosis withou t coma associated with type 1 diabetes mellitus 03/03/2021 07/08/2021 Immunizations * Covid Pfizer primary monovalent 12+ yr 0.3mL Purple cap(Given 02/26/2021) * INFLUENZA(Given 10/27/2013, 08/18/2012) * INFLUENZA VACCINE, QUADR. (FLUZONE; FLULAVAL; FLUARIX; AFLURIA QUADRIVALENT; 6MO+), 0.5 ML (IIV4)(Given 08/31/2023, 09/19/2020, 09/09/2016, 09/04/2015) Social History Tobacco Use Types Packs/Day Years [...] Mass Index 20.57 08/31/2023 10:54 AM CDT Procedures * HEMOGLOBIN A1C - POCT INTERFACED(Performed 08/31/2023) * GLUCOSE - POINT OF CARE(Performed 08/02/2023) * KETONES QUALITATIVE URINE AUTO(Performed 08/02/2023) * BASIC METABOLIC PANEL (CALCIUM TOTAL)(Performed 08/02/2023) * HEMOGLOBIN A1C(Performed 08/02/2023) * GLUCOSE - POINT OF CARE(Performed 08/02/2023) * GLUCOSE - POINT OF CARE(Performed 08/01/2023) * GLUCOSE - POINT OF CARE(Performed 08/01/2023) * GLUCOSE - POINT OF CARE(Performed 08/01/2023) * GLUCOSE - POINT OF CARE(Performed 08/01/2023) * KETONES QUALITATIVE URINE AUTO(Performed 08/01/2023) * GLUCOSE - POINT OF CARE(Performed 08/01/2023) * GLUCOSE - POINT OF CARE(Performed 08/01/2023) * BASIC METABOLIC PANEL (CALCIUM TOTAL)(Performed 08/01/2023) * GLUCOSE - POINT OF CARE(Performed 08/01/2023) * GLUCOSE - POINT OF CARE(Performed 08/01/2023) * GLUCOSE - POINT OF CARE(Performed 08/01/2023) * BASIC METABOLIC PANEL (CALCIUM TOTAL)(Performed 08/01/2023) * GLUCOSE - POINT OF CARE(Performed 08/01/2023) * KETONES QUALITATIVE URINE AUTO(Performed 08/01/2023) * GLUCOSE - POINT OF CARE(Performed 08/01/2023) * GLUCOSE - POINT OF CARE(Performed 08/01/2023) * URINALYSIS W/MICROSCOPIC NO CULTURE(Performed 08/01/2023) * GLUCOSE - POINT OF CARE(Performed 08/01/2023) * ED CRITICAL CARE(Performed 08/01/2023) * GEM BLOOD GAS+COOX+LYTES+METAB VIRY POCT(Performed 08/01/2023) * HYDROXYBUTYRATE BETA(Performed 08/01/2023) * COMPREHENSIVE METABOLIC PANEL(Performed 08/01/2023) * GLUCOSE - POINT OF CARE(Performed 08/01/2023) * TISSUE TRANSGLUTAMINASE AB IGA(Performed 06/03/2023) Performed for Type 1 diabetes mellitus without complication (HCC) * TSH REFLEX FREE T4(Performed 06/03/2023) Performed for Type 1 diabetes mellitus without complication (HCC) * MICROALB/CREAT RATIO URINE RANDOM PANEL(Performed 05/18/2023) Performed for Type 1 diabetes mellitus without complication (HCC) * HEMOGLOBIN A1C - POCT INTERFACED(Performed 05/18/2023) * GLUCOSE - POINT OF CARE(Performed 12/11/2022) * KETONES QUALITATIVE URINE AUTO(Performed 12/11/2022) * GLUCOSE - POINT OF CARE(Performed 12/11/2022) * KETONES QUALITATIVE URINE AUTO(Performed 12/11/2022) * BASIC METABOLIC PANEL (CALCIUM TOTAL)(Performed 12/11/2022) * GLUCOSE - POINT OF CARE(Performed 12/11/2022) * GLUCOSE - POINT OF CARE(Performed 12/11/2022) * GLUCOSE - POINT OF CARE(Performed 12/11/2022) * GLUCOSE - POINT OF CARE(Performed 12/11/2022) * GLUCOSE - POINT OF CARE(Performed 12/11/2022) * BASIC METABOLIC PANEL (CALCIUM TOTAL)(Performed 12/11/2022) * GLUCOSE - POINT OF CARE(Performed 12/11/2022) * GLUCOSE - POINT OF CARE(Performed 12/11/2022) * GLUCOSE - POINT OF CARE(Performed 12/11/2022) * GLUCOSE - POINT OF CARE(Performed 12/11/2022) * BASIC METABOLIC PANEL (CALCIUM TOTAL)(Performed 12/11/2022) * GLUCOSE - POINT OF CARE(Performed 12/10/2022) * GLUCOSE - POINT OF CARE(Performed 12/10/2022) * POTASSIUM BLOOD(Performed 12/10/2022) * GLUCOSE - POINT OF CARE(Performed 12/10/2022) * GLUCOSE - POINT OF CARE(Performed 12/10/2022) * KETONES QUALITATIVE URINE AUTO(Performed 12/10/2022) * BASIC METABOLIC PANEL (CALCIUM TOTAL)(Performed 12/10/2022) * GLUCOSE - POINT OF CARE(Performed 12/10/2022) * GLUCOSE - POINT OF CARE(Performed 12/10/2022) * GLUCOSE - POINT OF CARE(Performed 12/10/2022) * ED CRITICAL CARE(Performed 12/10/2022) * GLUCOSE - POINT OF CARE(Performed 12/10/2022) * BLOOD GAS+COOX+LYTES+METAB VENOUS POCT(Performed 12/10/2022) * BASIC METABOLIC PANEL (CALCIUM TOTAL)(Performed 12/10/2022) * BLOOD GAS VIRY+LYTES+METAB+COOX POC NOTIF(Performed 12/10/2022) * URINALYSIS W/MICROSCOPIC REFLEX TO CULTURE(Performed 12/10/2022) * GLUCOSE - POINT OF CARE(Performed 12/10/2022) * HEMOGLOBIN A1C - POCT INTERFACED(Performed 11/12/2022) * HEMOGLOBIN A1C - POCT INTERFACED(Performed 07/22/2022) * XR WRIST LEFT 3VW OR MORE(Performed 04/23/2022) Performed for Ganglion cyst of finger of left hand * HEMOGLOBIN A1C - POCT INTERFACED(Performed 04/15/2022) * HEMOGLOBIN A1C - POCT INTERFACED(Performed 04/15/2022) * MICROALB/CREAT RATIO URINE RANDOM PANEL(Performed 07/09/2021) Performed for Type 1 diabetes mellitus without complication (HCC) * LIPID PROFILE(Performed 07/09/2021) Performed for Type 1 diabetes mellitus without complication (HCC) * US KIDNEYS W BLADDER(Performed 06/20/2021) Performed for Nocturnal enuresis, Bladder dysfunction * GLUCOSE - POINT OF CARE(Performed 03/04/2021) * KETONES QUALITATIVE URINE AUTO(Performed 03/04/2021) * GLUCOSE - POINT OF CARE(Performed 03/04/2021) * GLUCOSE - POINT OF CARE(Performed 03/04/2021) * BLOOD GASES CAP + LYTES GLUC CA+ PANEL(Performed 03/04/2021) * GLUCOSE - POINT OF CARE(Performed 03/04/2021) * PHOSPHORUS BLOOD(Performed 03/04/2021) * BASIC METABOLIC PANEL (CALCIUM TOTAL)(Performed 03/04/2021) * BLOOD GASES CAP + LYTES GLUC CA+ PANEL(Performed 03/04/2021) * KETONES QUALITATIVE URINE AUTO(Performed 03/04/2021) * GLUCOSE - POINT OF CARE(Performed 03/04/2021) * PHOSPHORUS BLOOD(Performed 03/03/2021) * BASIC METABOLIC PANEL (CALCIUM TOTAL)(Performed 03/03/2021) * BLOOD GASES CAP + LYTES GLUC CA+ PANEL(Performed 03/03/2021) * GLUCOSE - POINT OF CARE(Performed 03/03/2021) * GLUCOSE - POINT OF CARE(Performed 03/03/2021) * BASIC METABOLIC PANEL (CALCIUM TOTAL)(Performed 03/03/2021) * PHOSPHORUS BLOOD(Performed 03/03/2021) * GLUCOSE - POINT OF CARE(Performed 03/03/2021) * KETONES QUALITATIVE URINE AUTO(Performed 03/03/2021) * GLUCOSE - POINT OF CARE(Performed 03/03/2021) * LYTES (NA K CL CO2) BLOOD(Performed 03/03/2021) * BLOOD GASES VIRY + COOX PANEL(Performed 03/03/2021) * GLUCOSE - POINT OF CARE(Performed 03/03/2021) * PHOSPHORUS BLOOD(Performed 03/03/2021) * BASIC METABOLIC PANEL (CALCIUM TOTAL)(Performed 03/03/2021) * GLUCOSE - POINT OF CARE(Performed 03/03/2021) * GLUCOSE - POINT OF CARE(Performed 03/03/2021) * LYTES (NA K CL CO2) BLOOD(Performed 03/03/2021) * BLOOD GASES VIRY + COOX PANEL(Performed 03/03/2021) * GLUCOSE - POINT OF CARE(Performed 03/03/2021) * PHOSPHORUS BLOOD(Performed 03/03/2021) * BASIC METABOLIC PANEL (CALCIUM TOTAL)(Performed 03/03/2021) * CK BLOOD(Performed 03/03/2021) * GLUCOSE - POINT OF CARE(Performed 03/03/2021) * KETONES QUALITATIVE URINE AUTO(Performed 03/03/2021) * SARS-COV-2 (COVID-19)+INFLU A+B PCR RAPID(Performed 03/03/2021) * HCG URINE QUALITATIVE - POCT (IP) INTERFACED(Performed 03/03/2021) * URINALYSIS W/MICROSCOPIC REFLEX TO CULTURE(Performed 03/03/2021) * ED CRITICAL CARE(Performed 03/03/2021) * DIFFERENTIAL MANUAL(Performed 03/03/2021) * PHOSPHORUS BLOOD(Performed 03/03/2021) * MAGNESIUM BLOOD(Performed 03/03/2021) * HEMOGLOBIN A1C(Performed 03/03/2021) * BLOOD GASES VIRY(Performed 03/03/2021) * CBC W AUTO DIFFERENTIAL(Performed 03/03/2021) * BASIC METABOLIC PANEL (CALCIUM TOTAL)(Performed 03/03/2021) * GLUCOSE - POINT OF CARE(Performed 03/03/2021) * URINALYSIS W/MICROSCOPIC NO CULTURE(Performed 11/22/2020) Performed for Nocturnal enuresis, Bladder dysfunction * CALCIUM/CREAT RATIO URINE RANDOM PANEL(Performed 11/22/2020) Performed for Nocturnal enuresis, Bladder dysfunction * CULTURE URINE(Performed 11/22/2020) Performed for Nocturnal enuresis, Bladder dysfunction * HEMOGLOBIN A1C - POCT INTERFACED(Performed 11/21/2020) * HEMOGLOBIN A1C - POCT INTERFACED(Performed 09/19/2020) * MICROALB/CREAT RATIO URINE RANDOM PANEL(Performed 09/19/2020) Performed for Type 1 diabetes mellitus without complication, with long-term current use of insulin ([facility]) * TSH(Performed 09/19/2020) Performed for Type 1 diabetes mellitus without complication, with long-term current use of insulin ([facility]) * TISSUE TRANSGLUTAMINASE AB IGA(Performed 09/19/2020) Performed for Type 1 diabetes mellitus without complication, with long-term current use of insulin ([facility]) * LIPID PROFILE(Performed 09/19/2020) Performed for Type 1 diabetes mellitus without complication, with long-term current use of insulin ([facility]) * MICROALB/CREAT RATIO URINE RANDOM PANEL(Performed 07/11/2019) Performed for Type 1 diabetes mellitus without complication ([facility]) * HEMOGLOBIN A1C - POCT INTERFACED(Performed 07/11/2019) * HEMOGLOBIN A1C - POCT (IP) BEAKER(Performed 10/25/2018) Performed for Type 1 diabetes mellitus without complication ([facility]) * MICROALB/CREAT RATIO URINE RANDOM PANEL(Performed 04/12/2018) Performed for Type 1 diabetes mellitus without complication ([facility]) * HEMOGLOBIN A1C - POCT (IP) BEAKER(Performed 04/12/2018) Performed for Type 1 diabetes mellitus without complication (HCC) * TSH(Performed 04/12/2018) Performed for Type 1 diabetes mellitus without complication (HCC) * TISSUE TRANSGLUTAMINASE AB IGA(Performed 04/12/2018) Performed for Type 1 diabetes mellitus without complication (HCC) * HEMOGLOBIN A1C - POCT (IP) BEAKER(Performed 07/14/2017) Performed for Uncontrolled type 1 diabetes mellitus without complication * HEMOGLOBIN A1C - POCT (IP) BEAKER(Performed 12/25/2016) Performed for Type 1 diabetes mellitus without complication (HCC) * HEMOGLOBIN A1C - POCT (IP) BEAKER(Performed 09/09/2016) Performed for Type 1 diabetes mellitus without complication (HCC) * LIPID PROFILE(Performed 09/09/2016) Performed for Type 1 diabetes mellitus without complication (HCC) * MICROALB/CREAT RATIO URINE RANDOM PANEL(Performed 09/09/2016) Performed for Type 1 diabetes mellitus without complication (HCC) * HEMOGLOBIN A1C - POCT (IP) BEAKER(Performed 06/24/2016) Performed for Type 1 diabetes mellitus without complication, with long-term current use of insulin (HCC) * HEMOGLOBIN A1C - POCT (IP) BEAKER(Performed 03/10/2016) Performed for Type 1 diabetes mellitus without complication (HCC) * HEMOGLOBIN A1C - POCT (IP) BEAKER(Performed 09/04/2015) Performed for Type 1 diabetes mellitus without complication (HCC) * HEMOGLOBIN A1C - POCT (IP) BEAKER(Performed 05/29/2015) Performed for Type 1 diabetes mellitus without complication (HCC) * MICROALB/CREAT RATIO URINE RANDOM PANEL(Performed 02/12/2015) Performed for Type 1 diabetes mellitus (HCC) * HEMOGLOBIN A1C - POCT (IP) BEAKER(Performed 02/12/2015) Performed for Type 1 diabetes mellitus (HCC) * TSH(Performed 02/12/2015) Performed for Type 1 diabetes mellitus (HCC) * HEMOGLOBIN A1C - POCT (IP) BEAKER(Performed 06/20/2014) Performed for Type 1 diabetes mellitus (HCC) * HEMOGLOBIN A1C - POCT (IP) BEAKER(Performed 10/27/2013) Performed for Type I (juvenile type) diabetes mellitus without mention of complication, not stated as uncontrolled (HCC) * TSH(Performed 05/16/2013) Performed for (Hcc) * TISSUE TRANSGLUTAMINASE AB IGA(Performed 05/16/2013) Performed for (Hcc) * CHOLESTEROL BLOOD(Performed 05/16/2013) Performed for (Hcc) * HEMOGLOBIN A1C - POINT OF CARE (IP)(Performed 05/16/2013) Performed for (Hcc) * HEMOGLOBIN A1C - POCT (IP) BEAKER(Performed 02/03/2013) Performed for Type I (juvenile type) diabetes mellitus without mention of complication, not stated as uncontrolled ([facility]) * GLUCOSE(Performed 08/17/2012) * BLOOD GASES VIRY(Performed 08/17/2012) * URINALYSIS REFLEX TO MICROSCOPIC NO CULTURE(Performed 08/17/2012) * CULTURE URINE(Performed 08/17/2012) * URINE MICROSCOPIC ONLY(Performed 08/17/2012) * ISLET CELL ANTIBODY(Performed 08/17/2012) * IA-2 ANTIBODY(Performed 08/17/2012) * GLUTAMIC ACID DECARBOXYLASE (ROSIE) ANTIBODY(Performed 08/17/2012) * HEMOGLOBIN A1C(Performed 08/17/2012) * C-PEPTIDE(Performed 08/17/2012) * BLOOD GASES VIRY(Performed 08/17/2012) * BASIC METABOLIC PANEL (CALCIUM TOTAL)(Performed 08/17/2012) * GLUCOSE - POINT OF CARE(Performed 08/17/2012) * EEG(Performed 12/24/2011) Performed for Seizure ([facility]) Results * (ABNORMAL) HEMOGLOBIN A1C - POCT INTERFACED (08/31/2023 10:53 AM CDT) Only the most recent of10 resultswithin the time period is included. Hemoglobin A1C POCT 7.2(H) <5.7 % 08/31/2023 11:00 AM CDT [facility] Estimated Average Glucose 160 mg/dL 08/31/2023 11:00 AM CDT [facility] Blood BLOOD SPECIMEN / Unknown 08/31/2023 10:53 AM CDT 08/31/2023 11:00 AM CDT Narrative [facility] - 08/31/2023 11:00 AM CDT HbA1c [...] POINT OF CARE ORDERABLES Performing Organization Address [facility] de Phone Number [facility] [address] [place] [phone] * (ABNORMAL) GLUCOSE - POINT OF CARE (08/02/2023 10:09 AM CDT) Only the most recent of58 resultswithin the time period is included. [facility] Glucose WB/POC 174(H) 70 - 106 mg/dL 08/02/2023 10:16 AM CDT [facility] Specimen Type Cap Fingerstick 2022 10:16 AM CDT [facility] Blood BLOOD SPECIMEN / Unknown 08/02/2023 10:09 AM CDT 08/02/2023 10:16 AM CDT Breana Olivas MD LAB - POINT OF CARE ORDERABLES Performing Organization Address [facility] Co de Phone Number [facility] [address] [place] [phone] * (ABNORMAL) KETONES QUALITATIVE URINE AUTO (08/02/2023 8:59 AM CDT) Only the most recent of10 resultswithin the time period is included. [facility] Ketone UA Trace(A) Negative 08/02/2023 9:33 AM CDT [facility] Urine URINE / Unknown Collection / Unknown 08/02/2023 8:59 AM CDT 08/02/2023 9:14 AM CDT Narrative [facility] - 08/02/2023 9:33 AM CDT Breana Olivas MD LAB - URINALYSIS ORD ERABLES Performing Organization Address City/[facility]/ZIP Co de Phone Number [facility] [address] [place] [phone], [place] [phone] * (ABNORMAL) HEMOGLOBIN A1C (08/02/2023 3:47 AM CDT) Only the most recent of3 resultswithin the time period is included. [facility] Hemoglobin A1c 7.3(H) <=5.6 % 08/02/2023 9:08 AM T [facility] Estimated Average Glucose 163 mg/dL 08/02/2023 9:08 AM T [facility] Comment: HbA1c Interpretation: Normal : < 5.7% Pre-diabetes: 5.7-6.4% Diabetes: Equal to or greater than 6.5% Test results diagnostic of diabetes should be repeated for confirmation. Treatment target values recommended by ADA and other clinical organizations should be used to evaluate metabolic control in patients. Reference: [place] [employer], Standards of Care in Diabetes -2020 In patients 70 years and older consider HbA1c target range of 7.0-7.5% (Reference: Ramirez Ding et al. JAMDA. 2012) The Sebia assay for the measurement of HbA1c is a National Glycohemoglobin Standardization Program (NGSP) certified method. Blood BLOOD SPECIMEN / Unknown Lab Venipuncture / Unknown 08/02/2023 3:47 AM CDT 08/02/2023 3:58 AM CDT Breana Olivas MD LAB - CHEMISTRY ORDE RABELAINE Performing Organization Address City/[facility]/ZIP Co de Phone Number [facility] [address] [place] [phone], [place] [phone] * (ABNORMAL) BASIC METABOLIC PANEL (CALCIUM TOTAL) (08/02/2023 3:47 AM CDT) Only the most recent of15 resultswithin the time period is included. BUN 13 7 - 26 mg/dL 08/02/2023 4:25 AM [facility] Creatinine 0.66 0.56 - 0.96 mg/dL 08/02/2023 4:25 AM [facility] Sodium 133(L) 136 - 145 mmol/L 08/02/2023 4:25 AM [facility] Potassium 3.9 3.5 - 4.5 mmol/L 08/02/2023 4:25 AM [facility] Chloride 105 98 - 107 mmol/L 08/02/2023 4:25 AM [facility] CO2 22 22 - 29 mmol/L 08/02/2023 4:25 AM [facility] Glucose 289(H) 70 - 115 mg/dL 08/02/2023 4:25 AM [facility] Calcium 8.9 8.4 - 10.2 mg/dL 08/02/2023 4:25 AM [facility] Anion Gap 6 6 - 16 08/02/2023 4:25 AM [facility] BUN/Creatinine Ratio 20 7 - 23 08/02/2023 4:25 AM [facility] Osmolality Calculated 287 270 - 300 mOsm/kg 08/02/2023 4:25 AM [facility] eGFR by CKD-EPI >90 >=90 mL/min/1.7 3 m2 08/02/2023 4:25 AM [facility] Blood BLOOD SPECIMEN / Unknown Lab Venipuncture / Unknown 08/02/2023 3:47 AM CDT 08/02/2023 3:58 AM CDT Breana Olivas MD LAB - CHEMISTRY MANJULA ZHAO [facility] Organization Address City/State/ZIP Co de Phone Number [facility] [address] [place] [phone], [facility] [phone] * (ABNORMAL) URINALYSIS W/MICROSCOPIC NO CULTURE (08/01/2023 11:46 AM CDT) Only the most recent of2 resultswithin the time period is included. Color UA Straw Straw, Yellow 08/01/2023 11:59 AM [facility] Clarity UA Clear Clear 08/01/2023 11:59 AM [facility] Specific [place] UA 1.020 1.005 - 1.030 08/01/2023 11:59 AM [facility] pH UA 5.0 5.0 - 8.0 pH 08/01/2023 11:59 AM [facility] Protein UA Negative Negative 08/01/2023 11:59 AM [facility] Glucose UA 3+(A) Negative 08/01/2023 11:59 AM [facility] Ketone UA 2+(A) Negative 08/01/2023 11:59 AM [facility] Bilirubin UA Negative Negative 08/01/2023 11:59 AM [facility] Blood UA 2+(A) Negative 08/01/2023 11:59 AM [facility] Nitrite UA Negative Negative 08/01/2023 11:59 AM [facility] Leukocyte Esterase Negative Negative 08/01/2023 11:59 AM [facility] Urobilinogen UA Negative Negative mg/dL 08/01/2023 11:59 AM [facility] RBC UA 0-2 None Seen, 0-2, 3-5 /HPF 08/01/2023 11:59 AM [facility] WBC UA 0-5 None Seen, 0-5 /HPF 08/01/2023 11:59 AM [facility] Bacteria UA Trace(A) None /HPF 08/01/2023 11:59 AM [facility] Squamous Epithelial Cells UA 0-2 None Seen, 0-2, 3-5 /HPF 08/01/2023 11:59 AM [facility] Urine URINE SPECIMEN OBTAINED BY CLEAN CATCH PROCEDURE / Unknown Collection / Unknown 08/01/2023 11:46 AM CDT 08/01/2023 11:52 AM CDT [facility] - 08/01/2023 11:59 AM CDT Sharan Campos MD LAB - URINALYSIS ORD ERABLES [facility] [address] [place] [address], [facility] [phone] * Critical Care (08/01/2023 10:30 AM CDT) Narrative Sharan Campos MD - 08/01/2023 10:30 AM CDT Sharan Campos MD ? 08/01/2023 ??1:24 PM Critical Care Performed by: Sharan Campos MD Authorized by: Sharan Campos MD ?? Critical care provider statement: ??Critical care time (minutes): ??35 ??Critical care time was exclusive of: ??Separately billable procedures and treating other patients and teaching time ??Critical care was necessary to treat or prevent imminent or life-threatening deterioration of the following conditions: ??Endocrine crisis ??Critical care was time spent personally by me on the following activities: ??Pulse oximetry, ordering and review of laboratory studies, ordering and performing treatments and interventions, development of treatment plan with patient or surrogate, discussions with consultants, evaluation of patient's response to treatment, examination of patient, obtaining history from patient or surrogate and re-evaluation of patient's condition Sharan Campos MD PROCEDURE/MINOR SURG ICAL ORDERABLES * (ABNORMAL) GEM BLOOD GAS+COOX+LYTES+METAB VIRY POCT (08/01/2023 10:21 AM CDT) pH Venous 7.16(LL) 7.32 - 7.42 pH 08/01/2023 10:27 AM [facility] pO2 Venous 54(H) 35 - 40 mmHg 08/01/2023 10:27 AM [facility] pCO2 Venous 35(L) 40 - 50 mmHg 08/01/2023 10:27 AM [facility] HCO3 Venous 12.5(L) 20 - 30 mmol/L 08/01/2023 10:27 AM [facility] Base Excess Venous -15.2(L) -2.0 - 2.0 mmol/L 08/01/2023 10:27 AM [facility] Oxyhemoglobin Venous 74.8 % 07/2023 10:27 AM [facility] Deoxyhemoglobin (HHB) Venous % 23.0 % 08/01/2023 10:27 AM [facility] Methemoglobin 1.3 0.0 - 2.0 % 08/01/2023 10:27 AM [facility] Carboxyhemoglobin 1.0 0.0 - 2.0 % 2022 10:27 AM [facility] Comment:Carboxyhemoglobin No rmal Concentration: Non-smokers: 0-2%; Smokers: 0- 9%; Toxic: >20% O2 Content Venous 15.3 Interpret within clinical context ml/dL 08/01/2023 10:27 AM [facility] Hemoglobin by COOX 14.6 12.0 - 16.0 g/dL 08/01/2023 10:27 AM [facility] O2 Saturation Venous 77 >=70 % 07/2023 10:27 AM [facility] Sodium Whole Blood 134(L) 135 - 145 mmol/L 08/01/2023 10:27 AM [facility] Potassium Whole Blood 5.2 3.5 - 5.5 mmol/L 08/01/2023 10:27 AM [facility] Chloride WB 98 78 - 107 mmol/L 08/01/2023 10:27 AM [facility] Calcium Ionized 1.28 mmol/L 10:27 AM [facility] Ionized Calcium pH Adjusted 1.16(L) 1.19 - 1.34 mmol/L 08/01/2023 10:27 AM [facility] Anion Gap (AG) Arterial 24(H) 6 - 16 mmol/L 08/01/2023 10:27 AM [facility] Glucose WB 402(H) 70 - 115 mg/dL 08/01/2023 10:27 AM [facility] Lactic Acid Whole Blood 4.7(HH) <=2.0 mmol/L 08/01/2023 10:27 AM [facility] Notified Who DR. Carmen CAMPOS MD 08/01/2023 10:27 AM [facility] Notified By [id number] 08/01/2023 10:27 AM [facility] Notification Time 1027 023 10:27 AM [facility] Read Back and Verified Y 08/01/2023 10:27 AM CDT [facility] Blood BLOOD SPECIMEN / Unknown Venipuncture / Unknown 08/01/2023 10:21 AM CDT 08/01/2023 10:24 AM CDT Sharan Campos MD LAB - BLOOD GASES OR DERABLES [facility] [address] [place] [address] * (ABNORMAL) HYDROXYBUTYRATE BETA (08/01/2023 10:21 AM CDT) Pathologist [facility] Beta-Hydroxybu tyrate 5.31(H) <0.50 mmol/L 08/01/2023 11:00 AM [facility] Comment:Result obtained by charu denis. Blood BLOOD SPECIMEN / Unknown Venipuncture / Unknown 08/01/2023 10:21 AM CDT 08/01/2023 10:31 AM CDT Sharan Campos MD LAB - CHEMISTRY ORDE RABLES [facility] [address] [place] [address] [phone] * (ABNORMAL) COMPREHENSIVE METABOLIC PANEL (08/01/2023 10:21 AM CDT) Pathologist [facility] BUN 22 7 - 26 mg/dL 08/01/2023 11:00 AM [facility] Creatinine 0.65 0.56 - 0.96 mg/dL 08/01/2023 11:00 AM [facility] Sodium 132(L) 136 - 145 mmol/L 08/01/2023 11:00 AM [facility] Potassium 4.9(H) 3.5 - 4.5 mmol/L 08/01/2023 11:00 AM [facility] Chloride 98 98 - 107 mmol/L 08/01/2023 11:00 AM [facility] CO2 11(L) 22 - 29 mmol/L 08/01/2023 11:00 [facility] Glucose 362(H) 70 - 115 mg/dL 08/01/2023 11:00 AM [facility] Calcium 10.5(H) 8.4 - 10.2 mg/dL 08/01/2023 11:00 AM [facility] Protein Total 8.2 6.0 - 8.3 g/dL 08/01/2023 11:00 AM [facility] Albumin 4.6 3.4 - 5.0 g/dL 08/01/2023 11:00 AM [facility] Bilirubin Total 0.6 0.2 - 1.2 mg/dL 08/01/2023 11:00 AM [facility] Alkaline Phosphatase 112 40 - 150 U/L 08/01/2023 11:00 AM [facility] ALT 13 5 - 55 U/L 08/01/2023 11:00 AM [facility] AST 22 5 - 34 U/L 08/01/2023 11:00 AM [facility] Anion Gap 23(H) 6 - 16 08/01/2023 11:00 AM [facility] BUN/Creatinine Ratio 34(H) 7 - 23 08/01/2023 11:00 AM [facility] Osmolality Calculated 292 270 - 300 mOsm/kg 08/01/2023 11:00 AM [facility] Albumin/Globulin Ratio 1.3 1.1 - 2.3 08/01/2023 11:00 AM [facility] eGFR by CKD-EPI >90 >=90 mL/min/1.7 3 m2 08/01/2023 11:00 AM [facility] Blood BLOOD SPECIMEN / Unknown Venipuncture / Unknown 08/01/2023 10:21 AM CDT 08/01/2023 10:31 AM T Sharan Campos MD LAB - CHEMISTRY MANJULA ZHAO [facility] Organization Address City/State/ZIP Co de Phone Number [facility] [address] [place] [address], [facility] [phone] * TSH REFLEX FREE T4 (06/03/2023 1:27 PM CDT) TSH 0.769 0.350 - 4.940 uIU/mL 06/03/2023 2:22 PM CDT [facility] Blood BLOOD SPECIMEN / Unknown Lab Venipuncture / Unknown 06/03/2023 1:27 PM CDT 06/03/2023 1:50 PM CDT Breana Olivas MD LAB - CHEMISTRY ORDE [facility] [address] [address], [facility] [phone] * TISSUE TRANSGLUTAMINASE AB IGA (06/03/2023 1:27 PM CDT) Only the most recent of4 resultswithin the time period is included. [facility] Tissue Transglutaminase (tTG) Ab, IgA <2 0 - 3 U/mL 06/05/2023 7:21 AM CDT [facility] ([facility]) Comment: INTERPRETIVE INFORMATION: Tissue Transglutaminase (tTG) Antibody, [...] positive predictive value for disease. Performed By: [id number] [address] [place] [address] Supervisor [employer]: Adam Moon MD, PhD Blood BLOOD SPECIMEN / Unknown Lab Venipuncture / Unknown 06/03/2023 1:27 PM CDT 06/03/2023 1:31 PM CDT Breana Olivas MD LAB - SEROLOGY ORDER CHASIDY [facility] ([facility]) [address] * MICROALB/CREAT RATIO URINE RANDOM PANEL (05/18/2023 9:36 AM CDT) Only the most recent of7 resultswithin the time period is included. Albumin Random Urine 10.2 Not Established ug/mL 05/18/2023 10:51 AM CDT [facility] Creatinine Urine 188 Not Established mg/dL 05/18/2023 10:51 AM CDT [facility] Urine Albumin/Creati nine Ratio 5 <30 mg/g 05/18/2023 10:51 AM CDT [facility] Urine URINE SPECIMEN OBTAINED BY CLEAN CATCH PROCEDURE / Unknown Collection / Unknown 05/18/2023 9:36 AM CDT 05/18/2023 10:28 AM CDT Breana Olivas MD LAB - URINE CHEMISTR Y ORDERABLES Performing Organization Address [facility]/ZIP Co de Phone Number [address] [address], [facility] [phone] * (ABNORMAL) POTASSIUM BLOOD (12/10/2022 10:01 PM DIALER) Potassium 5.0(H) 3.5 - 4.5 mmol/L 12/10/2022 10:30 PM DIALER [facility] Comment:Hemolysis detected i n this specimen. Hemolysis may cause false elevations in potassium leading to pseudohyperkalemia or masked hypokalemia. Recommend repeat testing if clinically indicated. Blood BLOOD SPECIMEN / Unknown Lab Venipuncture / Unknown 12/10/2022 10:01 PM DIALER 12/10/2022 10:07 PM DIALER Luigi Gil MD LAB - CHEMISTRY [facility] Performing Organization Address City/[facility]/ZIP Co de Phone Number [address] [address], [facility] [phone] * Critical Care (12/10/2022 5:03 PM DIALER) Narrative Luigi Gil MD - 12/10/2022 5:03 PM DIALER Luigi Gil MD ? 12/12/2022 ??9:58 AM Critical Care Performed by: Luigi Gil MD Authorized by: Luigi Gil MD Critical care provider statement: ??Critical care time (minutes): ??35 ??Critical care time was exclusive of: ??Separately billable procedures and treating other patients and teaching time ??Critical care was necessary to treat or prevent imminent or life-threatening deterioration of the following conditions: ??ENDOSCOPY RN failure or compromise, endocrine crisis, respiratory failure [...] MD PROCEDURE/MINOR SURG ICAL ORDERABLES * (ABNORMAL) BLOOD GAS+COOX+LYTES+METAB VENOUS POCT (12/10/2022 3:37 PM [facility]) pH Venous 7.11(LL) 7.32 - 7.42 pH 12/10/2022 3:37 PM [facility] pO2 Venous 54(H) 35 - 40 mmHg 12/10/2022 3:37 PM [facility] pCO2 Venous 32(L) 40 - 50 mmHg 12/10/2022 3:37 PM [facility] HCO3 Venous 10.2(L) 20 - 30 mmol/L 12/10/2022 3:37 PM [facility] Base Excess Venous -18.2(L) -2.0 - 2.0 mmol/L 12/10/2022 3:37 PM [facility] Oxyhemoglobin Venous 75.9 % 11/23 3:37 PM [facility] Deoxyhemoglobin (HHB) Venous % 22.1 % 12/10/2022 3:37 PM [facility] Methemoglobin 1.1 0.0 - 2.0 % 12/10/2022 3:37 PM [facility] Carboxyhemoglobin 1.0 0.0 - 2.0 % 2022 3:37 PM [facility] Comment:Carboxyhemoglobin No rmal Concentration: Non-smokers: 0-2%; Smokers: 0- 9%; Toxic: >20% O2 Content Venous 15.9 Interpret within clinical context ml/dL 12/10/2022 3:37 PM [facility] Hemoglobin by COOX 14.9 12.0 - 16.0 g/dL 12/10/2022 3:37 PM [facility] O2 Saturation Venous 77 >=70 % 11/23 3:37 PM [facility] Sodium Whole Blood 132(L) 135 - 145 mmol/L 12/10/2022 3:37 PM [facility] Potassium Whole Blood 5.8(H) 3.5 - 5.5 mmol/L 12/10/2022 3:37 PM [facility] Chloride WB 98(L) 101 - 111 mmol/L 12/10/2022 3:37 PM [facility] Calcium Ionized 1.21 mmol/L 3:37 PM [facility] Ionized Calcium pH Adjusted 1.07(L) 1.19 - 1.34 mmol/L 12/10/2022 3:37 PM [facility] Anion Gap (AG) Arterial 30(H) 8 - 18 mmol/L 12/10/2022 3:37 PM [facility] Glucose WB 552(HH) 70 - 105 mg/dL 12/10/2022 3:37 PM [facility] Lactic Acid Whole Blood 6.3(HH) <=2.0 mmol/L 12/10/2022 3:37 PM [facility] Blood BLOOD SPECIMEN / Unknown 12/10/2022 3:37 PM DIALER 12/10/2022 3:38 PM [facility] Narrative [facility] - 12/10/2022 3:37 PM DIALER Notified: ROXANNE BALES, Notified By: LISET CRAIG, Notification Time: 1537, Read back and verified? Y Luigi Gil MD LAB - POINT OF CARE ORDERABLES [facility] [address], [place] [id number] * BLOOD GAS VIRY+LYTES+METAB+COOX POC NOTIF (12/10/2022 3:35 PM DIALER) Comment Notification Label Only - See Separate Report 12/10/2022 5:01 PM DIALER [facility] Other MISCELLANEOUS SAMPLES / Unknown Collection / Unknown 12/10/2022 3:35 PM DIALER 12/10/2022 3:35 PM DIALER Luigi Gil MD LAB - BLOOD GASES OR DERABLES Performing Organization Address City/State/[facility] Co de Phone Number [facility] [place] [address] * (ABNORMAL) URINALYSIS W/MICROSCOPIC REFLEX TO CULTURE (12/10/2022 3:31 PM DIALER) Only the most recent of2 resultswithin the time period is included. Color UA Straw Straw, Yellow 12/10/2022 3:53 PM [facility] Clarity UA Clear Clear 12/10/2022 3:53 PM [facility] Specific [place] UA 1.023 1.005 - 1.030 12/10/2022 3:53 PM [facility] pH UA 5.0 5.0 - 8.0 pH 12/10/2022 3:53 PM [facility] Protein UA Negative Negative 12/10/2022 3:53 PM [facility] Glucose UA 3+(A) Negative 12/10/2022 3:53 PM [facility] Ketone UA 2+(A) Negative 12/10/2022 3:53 PM [facility] Bilirubin UA Negative Negative 12/10/2022 3:53 PM [facility] Blood UA 2+(A) Negative 12/10/2022 3:53 PM [facility] Nitrite UA Negative Negative 12/10/2022 3:53 PM [facility] Leukocyte Esterase Negative Negative 12/10/2022 3:53 PM [facility] Urobilinogen UA Negative Negative mg/dL 12/10/2022 3:53 PM [facility] RBC UA 0-2 None Seen, 0-2, 3-5 /HPF 12/10/2022 3:53 PM [facility] WBC UA 0-5 None Seen, 0-5 /HPF 12/10/2022 3:53 PM DIALER [facility] Squamous Epithelial Cells UA 0-2 None Seen, 0-2, 3-5 /HPF 12/10/2022 3:53 PM DIALER [facility] Urine URINE SPECIMEN OBTAINED BY CLEAN CATCH PROCEDURE / Unknown Collection / Unknown 12/10/2022 3:31 PM DIALER 12/10/2022 3:42 PM DIALER Narrative [facility] - 12/10/2022 3:53 PM DIALER Culture Not Indicated Luigi Gil MD LAB - URINALYSIS ORD ERABLES [facility] [address] [place] [address], [facility] [phone] * XR WRIST LEFT 3VW OR MORE (04/23/2022 8:38 AM CDT) Anatomical Region Laterality Modality Wrist / Hand Radiographic Heather ging 04/23/2022 8:44 AM CDT Impressions 04/23/2022 8:46 AM CDT Soft tissue mass overlying the dorsum of the wrist consistent with history of ganglion cyst. Further evaluation with ultrasound may be of benefit if clinically indicated. Reading Radiologist: Delonte Prado on 04/23/2022 at 8:46 AM Narrative 04/23/2022 8:46 AM CDT INDICATION: Ganglion COMPARISON: None available. TECHNIQUE: Frontal, oblique and lateral views of the left wrist. FINDINGS: There is no fracture or osseous abnormality. The joint alignment is normal. There is a soft tissue mass overlying the dorsum of the wrist. Procedure Note Delonte Prado, DO - 04/23/2022 INDICATION: Ganglion COMPARISON: None available. TECHNIQUE: Frontal, oblique and lateral views of the left wrist. FINDINGS: There is no fracture or osseous abnormality. The joint alignment is normal. There is a soft tissue mass overlying the dorsum of the wrist. IMPRESSION Soft tissue mass overlying the dorsum of the wrist consistent with historyof ganglion cyst. Further evaluation with ultrasound may be of benefit if clinically indicated. Reading Radiologist: Delonte Prado on 04/23/2022 at 8:46 AM Fina Lynn MD DIAGNOSTIC IMAGING ORDERABLES * (ABNORMAL) LIPID PROFILE (07/09/2021 11:38 AM CDT) Only the most recent of3 resultswithin the time period is included. Cholesterol Total 187(H) <170 mg/dL 07/09/2021 12:46 PM T [facility] HDL 73 >40 mg/dL 07/09/2021 12:46 PM [facility] Comment: ATP III Classification of HDL Cholesterol: ? <40 mg/dL: ??Considered a major risk factor. ? >60 mg/dL: ??Considered a negative risk factor. ? LDL Calculated 102(H) <100 mg/dL 07/09/2021 12:46 PM T [facility] Comment: ATP III Classification of LDL Cholesterol: ?<100 mg/dL: ??Optimal ? 100 - 129 mg/dL: ??Near Optimal/Above Optimal ? 130 - 159 mg/dL: ??Borderline High ? 160 - 189 mg/dL: ??High ?>190 mg/dL: ??Very High ? Triglycerides 62 <150 mg/dL 07/09/2021 12:46 PM [facility] Comment: ATP III Classification of Triglycerides: ?<150 mg/dL: ??Normal ? 150 - 199 mg/dL: ??Borderline High ? 200 - 400 mg/dL: ??High ?>500 mg/dL: ??Very High Blood BLOOD SPECIMEN / Unknown Venipuncture / Unknown 07/09/2021 11:38 AM CDT 07/09/2021 12:15 PM CDT Jeanne Wahl DO LAB - CHEMISTRY MANJULA ZHAO Performing Organization Address [facility]/State/ZIP Co de Phone Number [facility] [address] [address] [phone] * US KIDNEY AND BLADDER (06/20/2021 10:33 AM CDT) Anatomical Region Laterality Modality Abdomen Ultrasound 06/20/2021 10:1 8 AM CDT Impressions 06/20/2021 2:06 PM CDT Normal renal ultrasound. Reading Radiologist: Zhanna Rivera on 06/20/2021 at 2:06 PM Narrative 06/20/2021 2:06 PM CDT INDICATION: Nocturnal anuresis ORDERING PROVIDER: MAKENNA STAPLES COMPARISON: None available. TECHNIQUE: Leos scale and color Doppler ultrasound imaging of the kidneys and urinary bladder per department protocol. FINDINGS: Right kidney: 10.7 cm in length. The cortical echotexture and thickness are normal. No urinary tract dilation is present. There is no shadowing calculus. The perinephric soft tissues are normal. Left kidney: 10.6 cm in length. The cortical echotexture and thickness are normal. No urinary tract dilation is present. There is no shadowing calculus. The perinephric soft tissues are normal. Urinary bladder: Urinary bladder is incompletely distended to a volume of 31 mL. Procedure Note Zhanna Rivera, DO - 06/20/2021 INDICATION: Nocturnal anuresis ORDERING PROVIDER: MAKENNA STAPLES COMPARISON: None available. TECHNIQUE: Leos scale and color Doppler ultrasound imaging of the kidneysand urinary bladder per department protocol. FINDINGS: Right kidney: 10.7 cm in length. The cortical echotexture and thickness are normal. No urinary tractdilation is present. There is no shadowing calculus. The perinephric soft tissues are normal. Left kidney: 10.6 cm in length. The cortical echotexture and thickness are normal. No urinary tractdilation is present. There is no shadowing calculus. The perinephric soft tissues are normal. Urinary bladder: Urinary bladder is incompletely distended to a volume of31 mL. IMPRESSION Normal renal ultrasound. Reading Radiologist: Zhanna Rivera on 06/20/2021 at 2:06 PM Makenna Staples RAILRO[employer] MAINTENANCE CLERK-ENVIRONMENTAL SERVICES ATTENDANT US ORDERABLES * (ABNORMAL) BLOOD GASES CAP + LYTES GLUC CA+ PANEL (03/04/2021 6:26 AM [facility]) Only the most recent of3 resultswithin the time period is included. pH Capillary 7.34(L) 7.35 - 7.45 pH 03/04/2021 6:34 AM [facility] pCO2 Capillary 36 32 - 45 mm hg 03/04/2021 6:34 AM [facility] pO2 Capillary 86(H) 40 - 50 mm hg 03/04/2021 6:34 AM [facility] Hemoglobin Capillary 13.0 12.0 - 16.0 gm/dL 03/04/2021 6:34 AM [facility] O2 Saturation Capillary 97 95 - 99 % 03/04/2021 6:34 AM [facility] Oxyhemoglobin Capillary 95.5 94 - 98 % 03/04/2021 6:34 AM [facility] Carboxyhemoglobin Capillary 0.7 0.5 - 1.5 % 03/04/2021 6:34 AM [facility] Methemoglobin Capillary 0.8 0.0 - 1.5 % 03/04/2021 6:34 AM [facility] O2 Content Capillary 17.5 15.0 - 23.0 % 03/04/2021 6:34 AM [facility] BE Capillary -5.8(L) -2.0 - 2.0 mmol/L 03/04/2021 6:34 AM [facility] P50 Capillary 24.41(L) 25.3 - 26.8 mm hg 03/04/2021 6:34 AM [facility] Sodium Whole Blood 144 136 - 146 mmol/L 03/04/2021 6:34 AM [facility] Potassium Whole Blood 3.7 3.4 - 4.5 mmol/L 03/04/2021 6:34 AM [facility] Chloride WB 112(H) 98 - 106 mmol/L 03/04/2021 6:34 AM [facility] TCO2 Capillary 20.0 18 - 27 mmol/L 03/04/2021 6:34 AM [facility] Glucose WB 150(H) 70 - 106 mg/dL 03/04/2021 6:34 AM [facility] Calcium Ionized 1.30 mmol/L 6:34 AM CDT [facility] Calcium Ionized Adjusted 1.26 1.15 - 1.29 mmol/L 03/04/2021 6:34 AM CDT [facility] Temp 37.0 C 03/04/2021 6:34 AM CDT [facility] Blood CAPILLARY BLOOD / Unknown Lab Capillary / Unknown 03/04/2021 6:26 AM CDT 03/04/2021 6:30 AM CDT David Rodriguez MD LAB - BLOOD GASES OR DERABLES Performing Organization Address City/[facility]/ZIP Co de Phone Number [facility] [address] [place] [id number] * (ABNORMAL) PHOSPHORUS BLOOD (03/04/2021 4:42 AM CDT) Only the most recent of6 resultswithin the time period is included. Phosphorus 2.62(L) 2.88 - 5.08 mg/dL 03/04/2021 5:11 AM CDT [facility] Blood BLOOD SPECIMEN / Unknown Lab Venipuncture / Unknown 03/04/2021 4:42 AM CDT 03/04/2021 4:50 AM CDT David Rodriguez MD LAB - CHEMISTRY ORDE RABLES Performing Organization Address [facility] Co de Phone Number [facility] [address] [place] [address] * (ABNORMAL) BLOOD GASES VIRY + COOX PANEL (03/03/2021 6:18 PM CDT) Only the most recent of2 resultswithin the time period is included. pH Venous 7.22(L) 7.32 - 7.42 pH 03/03/2021 6:28 PM CDT [facility] pCO2 Venous 29(L) 41 - 51 mm hg 03/03/2021 6:28 PM CDT [facility] pO2 Venous 76(H) 30 - 55 mm hg 03/03/2021 6:28 PM CDT [facility] BE Venous -15.1(L) -2.0 - 2.0 mmol/L 03/03/2021 6:28 PM CDT [facility] O2 Saturation Venous 95 >70 % 02/21 6:28 PM CDT [facility] Hemoglobin Venous 14.1 12.0 - 16.0 gm/dL 03/03/2021 6:28 PM CDT [facility] Oxyhemoglobin Venous 93(L) 94 - 98 % 03/03/2021 6:28 PM CDT [facility] Carboxyhemoglobin Venous 0.7 0.5 - 1.5 % 03/03/2021 6:28 PM CDT [facility] Methemoglobin Venous 0.7 0.0 - 1.5 % 03/03/2021 6:28 PM T [facility] O2 Content Venous 18.6 % 021 6:28 PM T [facility] P50 Venous 27.68 mm hg 03/03/2021 6:28 PM T [facility] Temp 37.0 C 03/03/2021 6:28 PM T [facility] Blood BLOOD SPECIMEN / Unknown Lab Venipuncture / Unknown 03/03/2021 6:18 PM CDT 03/03/2021 6:24 PM CDT David Rodriguez MD LAB - BLOOD GASES OR DERABLES Performing Organization Address [facility] Co de Phone Number [facility] [address] [place] [address] * (ABNORMAL) LYTES (NA K CL CO2) BLOOD (03/03/2021 6:18 PM CDT) Only the most recent of2 resultswithin the time period is included. Sodium 138 136 - 145 mmol/L 03/03/2021 6:46 PM CDT [facility] Potassium 5.2(H) 3.5 - 5.1 mmol/L 03/03/2021 6:46 PM CDT [facility] Chloride 112(H) 98 - 107 mmol/L 03/03/2021 6:46 PM T [facility] CO2 9(LL) 20 - 28 mmol/L 03/03/2021 6:46 PM CDT [facility] Anion Gap 17 5 - 20 mmol/L 03/03/2021 6:46 PM CDT [facility] Blood BLOOD SPECIMEN / Unknown Lab Venipuncture / Unknown 03/03/2021 6:18 PM CDT 03/03/2021 6:31 PM CDT David Rodriguez MD LAB - CHEMISTRY ORDAubrey ZHAO Performing Organization Address City/[facility]/ZIP Co de Phone Number [facility] [address] [place] [phone] * CK BLOOD (03/03/2021 12:15 PM CDT) Pathologist [facility] CK 102 29 - 168 U/L 03/03/2021 12:50 PM CDT [facility] Blood BLOOD SPECIMEN / Unknown Lab Capillary / Unknown 03/03/2021 12:15 PM CDT 03/03/2021 12:32 PM CDT David Rodriguez MD LAB - CHEMISTRY ORDAubrey ZHAO Performing Organization Address [facility] [facility] Co de Phone Number [facility] [address] [place] [phone] * SARS-COV-2 (COVID-19)+INFLU A+B PCR RAPID (03/03/2021 10:46 AM CDT) Pathologist [facility] COVID-19 PCR Not detected Not detected 03/03/20 11:11 AM CDT [facility] Influenza A PCR Not detected Not detected 03/03/2021 11:11 AM CDT [facility] Influenza B PCR Not detected Not detected 03/03/2021 11:11 AM CDT [facility] Microbiology SPECIMEN FROM NASOPHARYNGEAL STRUCTURE / Unknown Collection / Unknown 03/03/2021 10:46 AM CDT 03/03/2021 10:46 AM CDT Narrative [facility] - 03/03/2021 11:11 AM CDT Influenza assay performed by Nucleic Acid Amplification. Results do not exclude the possibility of a mixed viral infection. NOTE: ??Detecting and identifying specific viral nucleic acids from individuals exhibiting signs and symptoms of respiratory infection aids in the diagnosis of respiratory infection, if used in conjunction with other clinical and laboratory findings. The results of this test should not be used as the sole basis for diagnosis, treatment, or patient management decisions. This nucleic acid amplification assay performance was validated by [facility]. This test has been authorized by the Food and Drug administration (FDA)under an Emergency??Use Authorization (EUA). This test has been validated in accordance with the FDA's guidance document Policy for Diagnostic Testing in Laboratories Certified to perform High Complexity Testing under CLIA prior to Emergency Use Authorization for Coronavirus Disease-2019 during the Public Health Emergency issued on January 21, 2020. FDA independent review of this validation is pending. This test is only authorized for the duration of time the declaration that circumstances exist justifying the authorization of emergency use of in vitro diagnostic tests for detection of SARS-CoV-2 virus and/or diagnosis of COVID-19 infection under section 564(b)(1) of the Act, 21 U.S.C 360bbb-3 (b)(1), unless the authorization is terminated or revoked sooner. Fact Sheets for this EUA assay are available upon request. Luigi Gil MD LAB - MICROBIOLOGY O RDERABLES Performing Organization Address City/[facility]/ZIP Co de Phone Number [facility] [address] [place] [phone] * HCG URINE QUALITATIVE - POCT (IP) INTERFACED (03/03/2021 10:44 AM CDT) HCG Qual Urine Negative Negative 03/03/2021 10:54 AM CDT [facility] Urine URINE / Unknown 03/03/2021 1 0:44 AM CDT 03/03/2021 10:54 AM CDT Luigi Gil MD LAB - POINT OF CARE ORDERABLES Performing Organization Address [facility]/ZIP Co de Phone Number [facility] [address] [place] [phone] * Critical Care (03/03/2021 9:52 AM CDT) Narrative Luigi Gil MD - 03/03/2021 9:52 AM CDT Luigi Gil MD ? 03/06/2021 ??9:21 AM Critical Care Performed by: Luigi Gil MD Authorized by: Luigi Gil MD Critical care provider statement: ??Critical care time (minutes): ??45 ??Critical care time was exclusive of: ??Separately billable procedures and treating other patients and teaching time ??Critical care was necessary to treat or prevent imminent or life-threatening deterioration of the following conditions: ??ENDOSCOPY RN failure or compromise, respiratory failure and endocrine crisis (DKA) ??Critical care was time spent personally by me on the following activities: ??Development of treatment plan with patient or surrogate, evaluation of patient's response to treatment, examination of patient, obtaining history from patient or surrogate, ordering and performing treatments and interventions, re-evaluation of patient's condition, discussions with consultants, pulse oximetry, interpretation of cardiac output measurements, review of old charts and ordering and review of laboratory studies ??I assumed direction of critical care for this patient from another provider in my specialty: no ?? Luigi Gil MD PROCEDURE/MINOR SURG ICAL ORDERABLES * (ABNORMAL) DIFFERENTIAL MANUAL (03/03/2021 9:42 AM CDT) WBC Auto 33.4 x10E9/L 03/03/2021 10:18 AM [facility] WBC Corrected 03/03/2021 10:18 AM [facility] nRBC 03/03/2021 10:18 AM [facility] Neutrophil % Manual 70(H) 24 - 66 % 03/03/2021 10:18 AM [facility] Lymphocytes % Manual 19(L) 22 - 61 % 03/03/2021 10:18 AM T [facility] Monocytes % Manual 4 3 - 15 % 03/03/2021 10:18 AM [facility] Band % Manual 6 % 03/03/2021 10:18 AM [facility] Myelocytes % Manual 1(H) <=0 % 03/03/2021 10:18 AM [facility] Cells Counted 100 # cells 03/03/2021 10:18 AM CDT [facility] Platelet Estimation Adequate platelets Normal, Adequate platelets 03/03/2021 10:18 AM CDT [facility] WBC Morph Normal 03/03/2021 10:18 AM CDT [facility] Anisocytosis 1+(A) None 03/03/2021 10:18 AM CDT [facility] Poikilocytosis 2+(A) None 03/03/2021 10:18 AM CDT [facility] Roca Cells 2+(A) None 03/03/2021 10:18 AM CDT [facility] Blood BLOOD SPECIMEN / Unknown Venipuncture / Unknown 03/03/2021 9:42 AM CDT 03/03/2021 9:45 AM CDT Luigi Gil MD LAB - HEMATOLOGY ORD ERABLES Performing Organization Address City/State/[facility] Co de Phone Number [facility] [address] [place], [place] [phone] * (ABNORMAL) CBC W AUTO DIFFERENTIAL (03/03/2021 9:42 AM CDT) WBC 33.4(HH) 4.5 - 14.5 x10E9/L 03/03/2021 9:54 AM CDT [facility] WBC Corrected 03/03/2021 9:54 AM CDT [facility] RBC 5.13(H) 4.10 - 5.10 x10E12/L 03/03/2021 9:54 AM CDT [facility] Hemoglobin 15.0 12.0 - 16.0 gm/dL 03/03/2021 9:54 AM CDT [facility] Hematocrit 46.8 36.0 - 47.0 % 03/03/2021 9:54 AM CDT [facility] MCV 91.2 78.0 - 98.0 fl 03/03/2021 9:54 AM CDT [facility] MCH 29.2 25.0 - 35.0 pg 03/03/2021 9:54 AM CDT [facility] MCHC 32.1 31.0 - 37.0 gm/dL 03/03/2021 9:54 AM CDT [facility] Platelet Count 386 100 - 400 x10E9/L 03/03/2021 9:54 AM T [facility] RDW-CV 12.5 11.5 - 14.0 % 03/03/2021 9:54 AM [facility] MPV 10.5(H) 6.0 - 9.5 fl 03/03/2021 9:54 AM [facility] nRBC Auto 0 /100 WBC 03/03/2021 9:54 AM [facility] Blood BLOOD SPECIMEN / Unknown Venipuncture / Unknown 03/03/2021 9:42 AM CDT 03/03/2021 9:45 AM CDT Luigi Gil MD LAB - HEMATOLOGY ORD ERABLES Performing Organization Address City/State/[facility] Co de Phone Number [facility] [address] [place] [address] * (ABNORMAL) BLOOD GASES VIRY (03/03/2021 9:42 AM CDT) Only the most recent of3 resultswithin the time period is included. pH Venous 6.93(L) 7.32 - 7.42 pH 03/03/2021 9:48 AM [facility] pCO2 Venous 31(L) 41 - 51 mm hg 03/03/2021 9:48 AM [facility] pO2 Venous 55 30 - 55 mm hg 03/03/2021 9:48 AM [facility] BE Venous -23.7(L) -2.0 - 2.0 mmol/L 03/03/2021 9:48 AM [facility] O2 Saturation Venous 68(L) >70 % 02/21 9:48 AM [facility] Oxyhemoglobin Venous 68(L) 94 - 98 % 03/03/2021 9:48 AM [facility] Hemoglobin Venous 14.6 12.0 - 16.0 gm/dL 03/03/2021 9:48 AM [facility] Carboxyhemoglobin Venous 0.0(L) 0.5 - 1.5 % 03/03/2021 9:48 AM [facility] Methemoglobin Venous 0.9 0.0 - 1.5 % 03/03/2021 9:48 AM CDT [facility] O2 Content Venous 13.9 % 021 9:48 AM CDT [facility] P50 Venous 42.86 mm hg 03/03/2021 9:48 AM CDT [facility] Temp 37.0 C 03/03/2021 9:48 AM CDT [facility] Blood BLOOD SPECIMEN / Unknown Venipuncture / Unknown 03/03/2021 9:42 AM CDT 03/03/2021 9:46 AM CDT Luigi Gil MD LAB - BLOOD GASES OR DERABLES Performing Organization Address [facility] Co de Phone Number [facility] [address] [place] [address] * (ABNORMAL) MAGNESIUM BLOOD (03/03/2021 9:42 AM CDT) Magnesium 2.9(H) 1.7 - 2.3 mg/dL 03/03/2021 10:06 AM CDT [facility] Blood BLOOD SPECIMEN / Unknown Venipuncture / Unknown 03/03/2021 9:42 AM CDT 03/03/2021 9:45 AM CDT Luigi Gil MD LAB - CHEMISTRY ORDE RABLES Performing Organization Address [facility] de Phone Number [facility] [address] [place] [address] * URINE CULTURE (11/22/2020 3:23 PM DIALER) Only the most recent of2 resultswithin the time period is included. Culture Urine 10,000-50,000 CFU/mL urogenital dana IBAN 11/24/2020 7:45 AM DIALER [facility] Urine URINE SPECIMEN OBTAINED BY CLEAN CATCH PROCEDURE / Unknown Collection / Unknown 11/22/2020 3:23 PM DIALER 11/22/2020 8:00 PM DIALER Makenna Staples RAILROAD MAINTENANCE CLERK-ENVIRONMENTAL SERVICES ATTENDANT LAB - MICROBIO LOGY ORDERABLES Performing Organization Address City/[facility]/ZIP Co de Phone Number [facility] [address] [place] [address], [facility] [phone] * URINE CALCIUM CREATININE RATIO RANDOM PANEL [[id number]] (11/22/2020 3:23 PM DIALER) Calcium Urine 15.93 mg/dL 11/22/2020 8:26 PM DIALER [facility] Creatinine Urine 169.06 mg/dL 11/22/2020 8:26 PM DIALER [facility] Calcium/Creatin ine Ratio Urine 0.09 11/22/2020 8:26 PM DIALER [facility] Urine URINE SPECIMEN OBTAINED BY CLEAN CATCH PROCEDURE / Unknown Collection / Unknown 11/22/2020 3:23 PM DIALER 11/22/2020 8:00 PM DIALER Narrative [facility] - 11/22/2020 8:26 PM DIALER Normal ? <0.16 Borderline ??0.16-0.20 Abnormal ?? >0.20 Makenna Staples [facility]WE[facility] LAB - URINE CH EMISTRY ORDERABLES Performing Organization Address City/[facility]/ZIP Co de Phone Number [facility] [address] [place] [address] * TSH (09/19/2020 2:41 PM CDT) Only the most recent of4 resultswithin the time period is included. TSH 1.41 0.35 - 4.95 uIU/mL 09/19/2020 3:47 PM CDT [facility] Blood BLOOD SPECIMEN / Unknown Venipuncture / Unknown 09/19/2020 2:41 PM CDT 09/19/2020 2:57 PM CDT Kory Lopez RAILROAD MAINTENANCE CLERKWESTOVER [facility] LAB - CHEMISTRY ORDERABLES Performing Organization Address [facility]/ZIP Co de Phone Number [facility] [address] [place] [address] * (ABNORMAL) HEMOGLOBIN A1C - POCT () BEAKER (10/25/2018 8:41 AM DIALER) Only the most recent of13 resultswithin the time period is included. Hemoglobin A1c POCT 9.0(A) 3.4 - 6.1 % [facility] POCT TESTING QC Verified Yes Yes [facility] PO CT TESTING Blood BLOOD SPECIMEN / Unknown 10/25/2018 8:41 AM DIALER Breana Olivas MD LAB - POINT OF CARE ORDERABLES Performing Organization Address City/[facility]/ZIP Co de Phone Number [facility] PO[facility] TESTING [address] [phone] * CHOLESTEROL BLOOD (05/16/2013 9:02 AM CDT) [facility] Cholesterol 154 <170 mg/dL 05/16/2013 9:31 AM CDT [facility] Blood specimen (specimen) BLOOD SPECIMEN / Unknown Venipuncture / Unknown 05/16/2013 9:02 AM CDT 05/16/2013 9:07 AM CDT Narrative [facility] - 05/16/2013 9:31 AM CDT Cholesterol comment: <18 years old: <170 ?Desirable 170-199 ?? Borderline High >200 ?High >18 years old: <200 ?Desirable 230-239 ?? Borderline High >240 ?High Risk factor status for Coronary Artery Disease is necessary to place these lab findings in perspective. Note: This test is for fasting patients only. A non-fasting state may alter some of these results. Breana Olivas MD LAB - CHEMISTRY ORDE RABELAINE Performing Organization Address City/[facility]/ZIP Co de Phone Number [facility] [address] [place] [address] * (ABNORMAL) HEMOGLOBIN A1C - POINT OF CARE (IP) (05/16/2013 9:02 AM CDT) Hemoglobin A1c POCT 7.4(A) 3.4 - 6.1 % [facility] POCT TESTING QC Verified yes Yes [facility] PO CT TESTING Blood specimen (specimen) BLOOD SPECIMEN / Unknown 05/16/2013 9:02 AM CDT Breana Olivas MD LAB - POINT OF CARE ORDERABLES Performing Organization Address [facility] Co de Phone Number [facility] POCT TESTING [address] [place] [address] * (ABNORMAL) GLUCOSE (08/17/2012 7:05 PM CDT) Glucose 64(L) 70 - 105 mg/dL 08/17/2012 7:31 PM CDT [facility] Blood specimen (specimen) BLOOD SPECIMEN / Unknown 08/17/2012 7:05 PM CDT 08/17/2012 7:12 PM CDT Mel Tubbs MD LAB - CHEMISTRY OR DERABLES Performing Organization Address [facility] Co de Phone Number [facility] [address] [place] [phone] * URINALYSIS ROUTINE AUTO (08/17/2012 5:46 PM CDT) Color UA Straw Straw, Yellow, Dark Yellow 08/17/2012 6:04 PM CDT [facility] Clarity UA Clear Clear 08/17/2012 6:04 PM T [facility] Specific [place] UA <=1.005 1.003 - 1.030 08/17/2012 6:04 PM T [facility] pH UA 5.5 5.0 - 8.0 08/17/2012 6:04 PM T [facility] Protein UA Negative Negative 08/17/2012 6:04 PM T [facility] Blood UA Negative Negative 08/17/2012 6:04 PM T [facility] Leukocyte UA Negative Negative 08/17/2012 6:04 PM T [facility] Nitrite UA Negative Negative 08/17/2012 6:04 PM CDT [facility] Glucose UA Negative Negative 08/17/2012 6:04 PM T [facility] Ketone UA Negative Negative 08/17/2012 6:04 PM T [facility] Bilirubin UA Negative Negative 08/17/2012 6:04 PM T [facility] Urobilinogen UA 0.2 0.2 - 1.0 EU/dL 08/17/2012 6:04 PM T [facility] Urine specimen (specimen) URINE SPECIMEN OBTAINED BY CLEAN CATCH PROCEDURE / Unknown 08/17/2012 5:46 PM CDT 08/17/2012 5:58 PM CDT Mel Tubbs MD LAB - URINALYSIS O RDERABLES Performing Organization Address [facility] Co de Phone Number [facility] [address] [place] [phone] * URINALYSIS MICROSCOPIC ONLY (08/17/2012 5:46 PM CDT) RBC UA 0-2 0-2, 2-5 # /hpf 08/17/2012 6:24 PM CDT [facility] WBC UA 0-2 0-2, 2-5 # /hpf 08/17/2012 6:24 PM CDT [facility] Bacteria UA Trace None, Trace 08/17/2012 6:24 PM CDT [facility] Epithelial Cell UA 0-2 0-2, 2-5 08/17/2012 6:24 PM CDT [facility] Mucus UA Trace None, Trace 08/17/2012 6:24 PM CDT [facility] Urine specimen (specimen) URINE SPECIMEN OBTAINED BY CLEAN CATCH PROCEDURE / Unknown 08/17/2012 5:46 PM CDT 08/17/2012 5:58 PM CDT Mel Tubbs MD LAB - URINALYSIS O RDERABLES Performing Organization Address [facility] de Phone Number [facility] [address] [place] [phone] * IA-2 ANTIBODY (08/17/2012 5:27 PM CDT) Insulinoma Associated 2 Antibody <0.8 0.0 - 0.8 U/mL 08/22/2012 4:13 PM CDT [facility] [employer] [facility] [employer] [facility] Comment: INTERPRETIVE INFORMATION: IA-2 Antibody A value greater than 0.8 Kronus Units/mL is considered positive for IA-2 Antibodies. Blood specimen (specimen) BLOOD SPECIMEN / Unknown 08/17/2012 5:27 PM CDT 08/17/2012 5:34 PM CDT Mel Tubbs MD LAB - SEROLOGY ORD ERABLES Performing Organization Address [facility] de Phone Number [facility] [address] [place] [address] * ISLET CELL ANTIBODY (08/17/2012 5:27 PM CDT) Pathologist [facility] Islet Cell Antibody IgG <1:4 <1:4 08/19/2012 3:20 PM CDT [facility] Comment: INTERPRETIVE INFORMATION: Islet Cell Ab, IgG Islet cell antibodies (ICAs) are associated with type 1 diabetes (TID), an autoimmune endocrine disorder. These antibodies may be present in individuals years before the onset of clinical symptoms. To calculate Juvenile Diabetes Foundation (JDF) units: multiply the titer x 5 (1:8 ??8 x 5 = 40 JDF Units). Blood specimen (specimen) BLOOD SPECIMEN / Unknown 08/17/2012 5:27 PM CDT 08/17/2012 5:35 PM CDT Mel Tubbs MD LAB - SEROLOGY ORD ERABLES Performing Organization Address [facility] de Phone Number [employer] [address] [place] [address] * (ABNORMAL) ROSIE AUTO ANTIBODY (08/17/2012 5:27 PM CDT) [facility] Glutamic Acid Decarboxylase Antibody 71.5(H) 0.0 - 5.0 IU/mL 08/19/2012 4:35 PM CDT [facility] Comment: INTERPRETIVE INFORMATION: ??Glutamic Acid Decarboxylase Antibody A value greater than 5.0 IU/mL is considered positive for Glutamic Acid Decarboxylase Antibody. Blood specimen (specimen) BLOOD SPECIMEN / Unknown 08/17/2012 5:27 PM CDT 08/17/2012 5:34 PM CDT Mel Tubbs MD LAB - SEROLOGY ORD ERABLES Performing Organization Address [facility] Co de Phone Number [facility] [address] [place] [address] * (ABNORMAL) C-PEPTIDE (08/17/2012 5:27 PM CDT) [facility] C-Peptide 0.50(L) 0.78 - 1.89 (ng/ml) 08/18/2012 11:[address] [facility] INTER[facility]AC[facility] Blood specimen (specimen) BLOOD SPECIMEN / Unknown 08/17/2012 5:27 PM CDT 08/17/2012 8:25 PM CDT Mel Tubbs MD LAB - CHEMISTRY OR DERABLES Performing Organization Address City/State/[facility] Co de Phone Number [facility] [address] [place] [address], [facility] * EEG (12/24/2011) 12/24/2011 Narrative Transcriptions Servando Figueroa MD - 12/25/2011 8:41 AM CST [facility] Clinical Neurophysiology NAME: ANAID WHITAKER : 2005 AD[address]ESS: [address] [place] [address] UNIT #: [id number] DATE OF TEST: 12/24/2011 STENCIL PRINTER: Servando Figueroa MD This is an EEG being performed with sleep deprivation in a 6-year-old girlwith a history of episodes of jerking of arms with unresponsivenesslasting a few minutes. Last event was a few days prior. She is on nomedications at the time of the recording. The recording begins with the patient in a wakeful state. There is areactive and symmetric posterior dominant rhythm with frequencies of 9 Hzand amplitudes of 30-60 microvolts. A well-organized anterior-posteriorgradient is also appreciated. In drowsiness there is attenuation of the waking background with anincrease in both higher amplitude delta and lower amplitude betaactivities. In stage 1 sleep prominent vertex sharp activity isidentified. As the recording progresses to stage 2 well-formed Kcomplexes and sleep spindles are seen. Two occasions of predominantlyleft frontally sharply contoured activity are identified in sleep that areasymmetric and seem to be independent of the vertex sharp activity. Upon reawakening photic stimulation is performed which does notsignificantly alter the waking background. The patient was not compliantwith hyperventilation. IMPRESSION: This is an abnormal electroencephalogram due 2 episodes of sharplycontoured activity from chiefly the left frontal lobe which may beepileptiform in nature. This may suggest a tendency towards seizuresarising from this region in the brain. The remainder of the recording isnormal for age. Clinical correlation is suggested. Dictated By: Servando Figueroa MD /Leopoldo JOB ID: [id number] cc: Alvarez Prabhakar M.D. Servando Figueroa MD NEUROLOGY ORDERABLES [facility] Care Teams Visual Arts Teacher Relationship Specialty Start Date End Date Alvarez Prabhakar MD [address] [place] [address] PCP - General 12/12/11
--- OUTSIDE RECORDS SUMMARY | 2024-11-22 05:18 | XMS_ITS | Encounter Summary ---
Author Organization [facility] Address [address] [place] [address] Care Team Providers Care Professor Of Criminal Justice Name Role Phone Alvarez Prabhakar MD Primary Care Provider [phone] Encounter Details Date Type Department Care Team (Latest Contact Info) Description 05/18/2023 Travel Social History Tobacco Use Types Packs/Day [...] on filedocumented in this encounter Care Teams Professor Of Criminal Justice Relationship Specialty Start Date End Date Alvarez Prabhakar MD [address] [place] [phone] PCP - General 12/12/11 documented as of this encounter
--- OUTSIDE RECORDS SUMMARY | 2024-11-22 05:18 | XMS_ITS | Encounter Summary ---
Author Organization [facility] Address [address] [place] [address] Care Team Providers Care Enterprise Security Architect Name Role Phone Alvarez Prabhakar MD Primary Care Provider [phone] Reason for Visit * Reason Onset Date Comments MEDICATION REFILL 06/25/2023 Encounter Details Date Type Department Care Team (Late st Contact Info) Description 06/25/2023 Refill [facility] Pediatrics - Diabetes [address] [address] Breana Olivas MD MEDICATION REFILL Social History [...] Telephone Encounter - Lizeth Garrett RN - 06/25/2023 2:17 PM CDT Last clinic visit 04/2023. documented in this encounter Plan of Treatment Not on file documented as of this encounter Visit Diagnoses Diagnosis Type 1 diabetes mellitus without complication (HCC) Type I (juvenile type) diabetes mellitus without mention of complication, not stated as uncontrolled documented in this encounter Care Teams Enterprise Security Architect Relationship Specialty Start Date End Date Alvarez Prabhakar MD [address] [place] [id number] PCP - General 12/12/11 documented as of this encounter
--- OUTSIDE RECORDS SUMMARY | 2024-11-22 05:18 | XMS_ITS | Encounter Summary ---
Author Organization [facility] Address [address] [place] [address] Care Team Providers Care National Recruiter Name Role Phone Alvarez Prabhakar MD Primary Care Provider [phone] Reason for Visit * Reason Onset Date Comments MEDICATION REFILL 08/02/2023 Encounter Details Date Type Department Care Team (Late st Contact Info) Description 08/02/2023 Refill [facility] Pediatrics - Diabetes [address] [address] Breana Olivas MD MEDICATION REFILL Social History [...] on filedocumented in this encounter Care Teams National Recruiter Relationship Specialty Start Date End Date Alvarez Prabhakar MD [address] [place] [address] PCP - General 12/12/11 documented as of this encounter
--- OUTSIDE RECORDS SUMMARY | 2024-11-22 05:18 | XMS_ITS | Encounter Summary ---
Author Organization [facility] Address [address] [place] [address] Care Team Providers Care Card Maker Name Role Phone Alvarez Prabhakar MD Primary Care Provider [phone] Reason for Visit * Reason Comments HIGH BLOOD SUGAR BG 435 this am. DM1, ran out of insulin needles. Last dose of insulin was . Vomited x 1 today. * Auth/Cert (Routine) Specialty Diagnoses / Procedures Referred By Contac t Referred To Contact Diagnoses DKA Referral ID Status Reason Start Date Expiration Date Visits Re quested Visits Authorized [id number] 1 1 Encounter Details Date Type Department Care Team (Latest Contact Info) Description 08/01/2023 9:43 AM CDT - 08/02/2023 10:27 AM CDT Hospital Encounter [facility] - TCU [address] [place] [id number] Sharan Campos MD [address] [place] [phone] Breana Olivas MD Pediatric Endocrinology Discharge Disposition: Home or Self Care Social [...] Sign Reading Time Taken Comments Blood Pressure 102/73 08/02/2023 8:56 AM CDT Pulse 104 08/02/2023 8:56 AM CDT Temperature 37.6 ??C (99.7 ??F) 08/02/2023 8:56 AM CD T Respiratory Rate 16 08/02/2023 8:56 AM CDT Oxygen Saturation 95% 08/02/2023 8:56 AM CDT Inhaled Oxygen Concentration - - Weight 50.3 kg (110 lb 14.3 oz) 08/01/2023 9:48 AM CDT Height 157.5 cm (5' 2 ) 08/01/2023 10:4 1 AM CDT Body Mass Index 20.28 08/01/2023 9:48 AM CDT Body Mass Index Percentile 33.71% 08/01 10:41 AM CDT Growth Chart: [facility] (Girls, 2- 20 Years) documented in [...] 08/01/2023 documented as of this encounter Discharge Summaries * Savanah Sánchez MD - 08/02/2023 10:27 AM CDT Images from the original note were not included. Pediatric Discharge Summary Attending Physician: Breana Olivas MD Office 08/02/2023 1:55 PM Pt. Name: Anaid Dimas : 2005 Attending Physician : Breana Olivas MD Admission Date: 08/01/2023 Discharge Date: 08/02/2023 Hospital Course Anaid Dimas is a 17 year old female with Type 1 diabetes admitted on 08/01/2023 in DKA after not taking insulin for a couple of days. Anaid was started on a 2 bag system and IV insulin drip initially. Once her anion gap was closed that evening, she was restarted on her home insulin regimen and able to eat by mouth. She tolerated that well and was stable for discharge home on 08/02/2023 withonly trace ketones. No changes were made to her insulin regimen. She will follow up in Pediatric Endocrinology Clinic for her final appointment before transferring to adult Endocrine Clinic. Return precautions were discussed, and all questions were answered. Discharge Diagnosis(es) Active Problems: Hyperglycemia Resolved Problems: Diabetic ketoacidosis without coma associated with type 1 diabetes mellitus ([facility]) Condition on Discharge: Improved Consultations: None Diagnostic studies: - See Hospital Course Procedures: None Relevant Labs: Latest Reference Range & Units 08/02/23 03:47 08/02/23 08:59 Sodium 136 - 145 mmol/L 133 (L) Potassium 3.5 - 4.5 mmol/L 3.9 Chloride 98 - 107 mmol/L 105 CO2 22 - 29 mmol/L 22 Anion Gap 6 - 16 6 BUN 7 - 26 mg/dL 13 Creatinine 0.56 - 0.96 mg/dL 0.66 eGFR >=90 mL/min/1.73 m2 >90 Glucose 70 - 115 mg/dL 289 (H) Calcium 8.4 - 10.2 mg/dL 8.9 BUN/Creatinine Ratio 7 - 23 20 Osmolality Calculated 270 - 300 mOsm/kg 287 Hemoglobin A1c <=5.6 % 7.3 (H) Estimated Average Glucose mg/dL 163 Ketone UA Negative Trace ! Discharge Physical Exam VS: BP 102/73 Pulse 104 Temp 99.7 ??F (Oral) Resp 16 Ht 1.575 m (5' 2 ) Wt 50.3 kg (110 lb 14.3 oz) SpO2 95% Height: 157.5 cm (5' 2 ) 19 %ile (Z= -0.89) based on CDC (Girls, 2-20 Years) Upohydc-nbg-bss data based on Stature recorded on 08/01/2023. Weight: 50.3 kg (110 lb 14.3 oz) 19 %ile (Z= -0.87) based on [facility] (Girls, 2-20 Years) phtqlj-lce-mogrqvn using vitals from 08/01/2023. General: asleep, no apparent distress Head: normocephalic Ears: External ears: normal Nose: normal Cardiovascular: Rate: regular Rhythm: regular Heart sounds: normal S1, normal S2 Murmur: no murmur Pulses: Radial: R - 2+, L - 2+ Capillary refill: < 2 seconds Pulmonary: Auscultation: clear to auscultation Aeration: good aeration Respiratory effort: no respiratory distress Abdominal: soft, flat Tenderness: none Pending Results Unresulted Labs (From admission, onward) None Discharge Medications Current Discharge Medication List UNREVIEWED MEDICATIONS Instructions Authorizing Provider Rustam Two Pack 3 MG/DOSE Powd Generic drug: Glucagon Quantity Dispensed: 1 Each Ask about: Which instructions should I use? [place] 3 mg into the nose as needed (adminsiter as directed for severe low blood sugar) Breana Olivas MD CONTINUE taking these medications which have NOT CHANGED Instructions Authorizing Provider Accu-Chek Drake SmartView w/Device Kit kit Quantity Dispensed: 1 Kit Use for blood glucose monitoring. ABIDA Barrera * acetone(urine) strip Commonly known as: Ketostix Quantity Dispensed: 100 strip Use as directed for urine ketone checks if blood sugar above 250 or if ill. Dispense one bottle forschool and one for home. ABIDA Barrera * acetone(urine) strip Commonly known as: Ketostix Quantity Dispensed: 50 strip Use as needed (use when blood sugar is greater than 250 or when ill. ) MD Gary Barbour G6 Strategic Account Executive Alicia Quantity Dispensed: 1 Each Use 1 Each as directed ABIDA Johnson Dexcom G6 Sensor Misc Quantity Dispensed: 3 Each Inject 1 Each subcutaneously every 10 days MD Gary Barbour G6 Transmitter Misc Quantity Dispensed: 1 Each Use 1 Each Every 90 days Brendan Zafar MD glucagon injection Commonly known as: Glucagen Quantity Dispensed: 2 kit Inject 1 mg into muscle as directed for severe low blood sugar reaction. Breana Olivas MD injection device-insulin device Commonly known as: NovoPen Echo Quantity Dispensed: 1 device Use for insulin delivery. ABIDA Clarke insulin degludec 100 UNIT/ML pen Commonly known as: Tresiba Quantity Dispensed: 30 mL Inject 14 units daily Breana Olivas MD insulin lispro 100 UNIT/ML pen Commonly known as: HumaLOG;ADMelog Quantity Dispensed: 45 mL INJECT 1 UNIT FOR EVERY 7 CARBOHYDRATES, WITH A MAX OF 40 UNITS PER DAY. Breana Olivas MD * Insulin Pen Needle 32G X 4 [...] 1 syringe as directed Brendan Zafar MD Lantus SoloStar pen Generic drug: insulin glargine INJECT 18 UNITS UNDER SKIN ONCE NIGHTLY * OneTouch Delica Lancets 33G Misc Quantity Dispensed: 200 Each Use 1 Each as directed Breana Olivas MD * Accu-Chek FastClix Lancets Quantity Dispensed: 200 Each Use for blood glucose monitoring 4-6 times/day. ABIDA Johnson OneTouch Verio IQ System w/Device Kit Quantity Dispensed: 2 kit Use 1 kit as directed ABIDA Clarke OneTouch Verio test strip Generic drug: blood glucose Quantity Dispensed: 200 strip USE DIRECTED 5-9 TIMES DAILY. Breana Olivas MD oxyBUTYnin CR 24hr 10 MG tablet Commonly known as: Ditropan-XL Quantity Dispensed: 30 tablet Take 1 (one) tablet by mouth at bedtime Makenna A Bel, FILLING ROOM OPERATOR-SECURITY SYSTEMS SPECIALIST * This list has 8 medication(s) that are the same as other medications prescribed for you. Read thedirections carefully, and ask your doctor or other care provider to review them with you. Discharge Procedure Orders Why you were hospitalized Order Specific Question Answer Comments Your discharge diagnosis is: DKA (diabetic ketoacidosis) ([facility]) [911323] Follow up with Primary Care Provider (PCP) Our records show your Primary Care Provider (PCP) is Alvarez Prabhakar MD. Order Specific Question Answer Comments Follow Up Instructions for Patient: Within 14 Days from Discharge Diabetic diet Continue to count carbohydrates and dose insulin as you have been taught. Activity as tolerated Rest today, and increase activity level tomorrow as tolerated. When to call provider Call Anaid's Primary Care Provider (doctor or nurse she normally sees) if you have questions or concerns, or for any of the following issues: -- increased shortness of breath -- for pain that gets worse or does not get better after taking pain medication(s) as directed -- if you see a lot of bleeding from the IV site -- if the IV site looks infected (red, swollen, warm to the touch, or non-clear, foul-smelling drainage) -- if Anaid has nausea or vomiting or cannot eat or drink Savanah Sánchez MD CC: Alvarez Prabhakar MD [id number] [facility] [phone] documented in this encounter Medications at Time [...] Kit 0 08/18/2012 Blood Glucose Monitoring Suppl (GOGETMi / ?.??IO IQ SYSTEM) w/Device KIT Use 1 kit as directed 2 kit 12/16/2019 Continuous Blood Gluc Strategic Account Executive (Dexcom G6 Strategic Account Executive) DEVIIndications:Type 1 diabetes mellitus without complication (HCC) [...] when ill. ) 50 strip 04/23/2023 08/03/2023 Continuous Blood Gluc Sensor (Dexcom G6 Sensor) MISCIndications:Type 1 diabetes mellitus without complication (HCC) Inject 1 Each subcutaneously every 10 days 3 Each 5 06/26/2023 12/04/2023 Continuous Blood Gluc Transmit (Dexcom G6 Transmitter) MISCIndications:Type 1 diabetes mellitus without complication (HCC) Use 1 Each Every 90 days 1 Each 3 07/03/2023 08/03/2023 Glucagon (Baqsimi Two Pack) 3 MG/DOSE POWD [place] 3 mg into the nose as needed (adminsiter as directed for severe low blood sugar) 1 Each 08/02/2023 11/09/2023 insulin degludec (Tresiba) 100 UNIT/ML pen Inject [...] as of this encounter Progress Notes * Savanah Sánchez MD - 08/02/2023 10:27 AM CDT Condition on Discharge: Improved Consultations: None Diagnostic studies: - See Hospital Course Procedures: None Relevant Labs: Latest Reference Range & Units 08/02/23 03:47 08/02/23 08:59 Sodium 136 - 145 mmol/L 133 (L) Potassium 3.5 - 4.5 mmol/L 3.9 Chloride 98 - 107 mmol/L 105 CO2 22 - 29 mmol/L 22 Anion Gap 6 - 16 6 BUN 7 - 26 mg/dL 13 Creatinine 0.56 - 0.96 mg/dL 0.66 eGFR >=90 mL/min/1.73 m2 >90 Glucose 70 - 115 mg/dL 289 (H) Calcium 8.4 - 10.2 mg/dL 8.9 BUN/Creatinine Ratio 7 - 23 20 Osmolality Calculated 270 - 300 mOsm/kg 287 Hemoglobin A1c <=5.6 % 7.3 (H) Estimated Average Glucose mg/dL 163 Ketone UA Negative Trace ! Discharge Physical Exam VS: BP 102/73 Pulse 104 Temp 99.7 ??F (Oral) Resp 16 Ht 1.575 m (5' 2 ) Wt 50.3 kg (110 lb 14.3 oz) SpO2 95% Height: 157.5 cm (5' 2 ) 19 %ile (Z= -0.89) based on CDC (Girls, 2-20 Years) Wlpeoev-pek-aax data based on Stature recorded on 08/01/2023. Weight: 50.3 kg (110 lb 14.3 oz) 19 %ile (Z= -0.87) based on CDC (Girls, 2-20 Years) ohyhye-kal-brfrfjh using vitals from 08/01/2023. General: asleep, no apparent distress Head: normocephalic Ears: External ears: normal Nose: normal Cardiovascular: Rate: regular Rhythm: regular Heart sounds: normal S1, normal S2 Murmur: no murmur Pulses: Radial: R - 2+, L - 2+ Capillary refill: < 2 seconds Pulmonary: Auscultation: clear to auscultation Aeration: good aeration Respiratory effort: no respiratory distress Abdominal: soft, flat Tenderness: none * Savanah Sánchez MD - 08/02/2023 10:27 AM CDT Anaid Dimas is a 17 year old female with Type 1 diabetes admitted on 08/01/2023 in DKA after not taking insulin for a couple of days. Anaid was started on a 2 bag system and IV insulin drip initially. Once her anion gap was closed that evening, she was restarted on her home insulin regimen and able to eat by mouth. She tolerated that well and was stable for discharge home on 08/02/2023 withonly trace ketones. No changes were made to her insulin regimen. She will follow up in Pediatric Endocrinology Clinic for her final appointment before transferring to adult Endocrine Clinic. Return precautions were discussed, and all questions were answered. * Breana Olivas MD - 08/02/2023 8:31 AM CDT Feels well this morning. Mother at bedside. She reports two morning episodes of severe hypoglycemiain April and June with Baqsimi given by her. Not wearing her Dexcom for some time. BP 112/73 Pulse 88 Temp 98.5 ??F (36.9 ??C) (Oral) Resp 26 Ht 1.575 m (5' 2 ) Wt 50.3 kg (110 lb 14.3 oz) SpO2 98% P.E. normal this morning. Latest Reference Range & Units 08/02/23 03:47 Sodium 136 - 145 mmol/L 133 (L) Potassium 3.5 - 4.5 mmol/L 3.9 Chloride 98 - 107 mmol/L 105 CO2 22 - 29 mmol/L 22 Anion Gap 6 - 16 6 BUN 7 - 26 mg/dL 13 Creatinine 0.56 - 0.96 mg/dL 0.66 eGFR >=90 mL/min/1.73 m2 >90 Glucose 70 - 115 mg/dL 289 (H) Calcium 8.4 - 10.2 mg/dL 8.9 BUN/Creatinine Ratio 7 - 23 20 HbA1C pending Assessment: 1. Moderate DKA due to missed insulin, resolved without incident. Hyperglycemic overnight but urineketones small last evening (being resent this AM). 2. Uncontrolled type 1 diabetes with severe hypoglycemia x 2 since the last visit in addition to this DKA episode. Updated HbA1C is pending. 3. Immature teen needing continued adult supervision. Plan: Reviewed the dangers of recurrent hypoglycemia and DKA. No changes in insulin doses at discharge as no BS data available for review. Anaid agreed to resume Dexcom use today when she gets home. She and her mother will call our nurses for a Dexcom review on Thu. Needs a final follow up appointment scheduled in Diabetes Clinic. A 2-pack of Baqsimi was prescribed by me at her [facility]. Plan for discharge after breakfast today. * Cherise Phillips MD - 08/01/2023 12:13 PM CDT Chief Complaint HIGH BLOOD SUGAR (BG 435 this am. DM1, ran out of insulin needles. Last dose of insulin was . Vomited x 1 today.) History of Present Illness History provided by: Patient Anaid is an 17 years old girl with a 10 year history of type I diabetes presenting with concern for DKA. Last given lantus (18 units at bedtime) on Thursday (has missed two consecutive days of basal insulin). Denies recent illnesses or changes in health. Follows with Dr Rueda (Endocrinology) and Dr. Prabhakar (refractive surgeon). Went to grandfather's house to stay and she forgot to take along her insulin needles and so was not able to administer insulin for the last 48 hours. Began feeling nauseous this morning, started feeling fatigued and weak, with increased frequency of urination and increased thirst yesterday evening. She has experienced DKA before (admitted November 2022) and so was concerned for impending ketotic crisis. Presented to [facility] shortly thereafter. In the ED, BG >400 initially. Blood gas with pH 7.16, HCO3 12.5, anion gap 23, with moderate urinary ketones. Tachycardic, hemodynamically stable, tired- appearing but fully oriented with regular respirations. Given zofran, started on insulin drip and 2 bag sytem and admitted for management of DKA. Her last HbA1C was 9.7 (decreased from 7.0 in November 2022). Review of Systems Constitutional: (-) fever ENT: Nose: (+) rhinorrhea Cardiovascular: (-) chest pain, (-) palpitations Respiratory: (-) cough, (-) shortness of breath Gastrointestinal: (+) nausea, (+) vomiting, (-) diarrhea, (-) constipation Genitourinary: (-) decreased urine output Skin: (-) rash Neurological: (-) headaches, (-) dizziness Endocrine: (+) polydipsia, (+) polyuria Physical Exam VS: BP 108/50 Pulse (!) 117 Temp 97.9 ??F (Oral) Resp 10 Ht 1.575 m (5' 2 ) Wt 50.3 kg (110 lb 14.3 oz) SpO2 100% Height: 157.5 cm (5' 2 ) 19 %ile (Z= -0.89) based on [facility] (Girls, 2-20 Years) Tgghwvb-dfy-tik data based on Stature recorded on 08/01/2023. Weight: 50.3 kg (110 lb 14.3 oz) 19 %ile (Z= -0.87) based on CDC (Girls, 2-20 Years) [id number] using vitals from 08/01/2023. General: Awake and fully oriented. Tired-appearing, ambulatory and out of bed, tachycardic with regular respirations. Mouth / Oropharynx: Mucous membranes: moist Cardiovascular: Rate: + tachycardia Rhythm: regular Pulmonary: Auscultation: clear to auscultation Aeration: good aeration Abdominal: soft Tenderness: none Neurological: Orientation: oriented to person, place and time Labs / Results Results for orders placed or performed during the hospital encounter of 08/01/23 (from the past 24 hour(s)) -GLUCOSE - POINT OF CARE: Result Value Ref Range Glucose WB/POC 309 (H) 70 - 106 mg/* Specimen Type Cap Fingerstick -COMPREHENSIVE METABOLIC PANEL: Result Value Ref Range BUN 22 7 - 26 mg/dL Creatinine 0.65 0.56 - 0.96 * Sodium 132 (L) 136 - 145 mm* Potassium 4.9 (H) 3.5 - 4.5 mm* Chloride 98 98 - 107 mmo* CO2 11 (L) 22 - 29 mmol* Glucose 362 (H) 70 - 115 mg/* Calcium 10.5 (H) 8.4 - 10.2 m* Protein Total 8.2 6.0 - 8.3 g/* Albumin 4.6 3.4 - 5.0 g/* Bilirubin Total 0.6 0.2 - 1.2 mg* Alkaline Phosphatase 112 40 - 150 U/L ALT 13 5 - 55 U/L AST 22 5 - 34 U/L Anion Gap 23 (H) 6 - 16 BUN/Creatinine Ratio 34 (H) 7 - 23 Osmolality Calculated 292 270 - 300 mO* Albumin/Globulin Ratio 1.3 1.1 - 2.3 eGFR by CKD-EPI >90 >=90 mL/min/* -HYDROXYBUTYRATE BETA: Result Value Ref Range Beta-Hydroxybutyrate 5.31 (H) <0.50 mmol/L -GEM BLOOD GAS+COOX+LYTES+METAB VIRY POCT: Result Value Ref Range pH Venous 7.16 (LL) 7.32 - 7.42 * pO2 Venous 54 (H) 35 - 40 mmHg pCO2 Venous 35 (L) 40 - 50 mmHg HCO3 Venous 12.5 (L) 20 - 30 mmol* Base Excess Venous -15.2 (L) -2.0 - 2.0 m* Oxyhemoglobin Venous 74.8 % Deoxyhemoglobin (HHB) * 23.0 % Methemoglobin 1.3 0.0 - 2.0 % Carboxyhemoglobin 1.0 0.0 - 2.0 % O2 Content Venous 15.3 Interpret wi* Hemoglobin by COOX 14.6 12.0 - 16.0 * O2 Saturation Venous 77 >=70 % Sodium Whole Blood 134 (L) 135 - 145 mm* Potassium Whole Blood 5.2 3.5 - 5.5 mm* Chloride WB 98 78 - 107 mmo* Calcium Ionized 1.28 mmol/L Ionized Calcium pH Adj* 1.16 (L) 1.19 - 1.34 * Anion Gap (AG) Arteria* 24 (H) 6 - 16 mmol/L Glucose WB 402 (H) 70 - 115 mg/* Lactic Acid Whole Blood 4.7 (HH) <=2.0 mmol/L Notified Who DR. Carmen CAMPOS MD [place] By [id number] Notification Time 1027 Read Back and Verified Y -GLUCOSE - POINT OF CARE: Result Value Ref Range Glucose WB/POC 332 (H) 70 - 106 mg/* Specimen Type Cap Fingerstick -URINALYSIS W/MICROSCOPIC NO CULTURE: Specimen: Urine Clean Catch Result Value Ref Range Color UA Straw Straw, Yellow Clarity UA Clear Clear Specific [place] UA 1.020 1.005 - 1.030 pH UA 5.0 5.0 - 8.0 pH Protein UA Negative Negative Glucose UA 3+ (Abnormal) Negative Ketone UA 2+ (Abnormal) Negative Bilirubin UA Negative Negative Blood UA 2+ (Abnormal) Negative Nitrite UA Negative Negative Leukocyte Esterase Negative Negative Urobilinogen UA Negative Negative mg/* RBC UA 0-2 None Seen, 0* WBC UA 0-5 None Seen, 0* Bacteria UA None /HPF Trace (Abnormal) Squamous Epithelial Ce* 0-2 None Seen, 0* documented in this encounter H&P Notes * Cherise Phillips MD - 08/01/2023 1:03 PM CDT Images from the original note were not included. Pediatric Admission Note 08/01/2023 1:03 PM Chief Complaint HIGH BLOOD SUGAR (BG 435 this am. DM1, ran out of insulin needles. Last dose of insulin was . Vomited x 1 today.) History of Present Illness History provided by: Patient Anaid is an 17 years old girl with a 10 year history of type I diabetes presenting with concern for DKA. Last given lantus (18 units at bedtime) on Thursday (has missed two consecutive days of basal insulin). Denies recent illnesses or changes in health. Follows with Dr Rueda (Endocrinology) and Dr. Prabhakar (refractive surgeon). Went to grandfather's house to stay and she forgot to take along her insulin needles and so was not able to administer insulin for the last 48 hours. Began feeling nauseous this morning, started feeling fatigued and weak, with increased frequency of urination and increased thirst yesterday evening. She has experienced DKA before (admitted November 2022) and so was concerned for impending ketotic crisis. Presented to [facility] shortly thereafter. In the ED, BG >300 initially, high 200s on subsequent checks. Blood gas with pH 7.16, HCO3 12.5,anion gap 23, with moderate urinary ketones. Tachycardic, hemodynamically stable, tired-appearing but fully oriented with regular respirations. Given zofran, started on insulin drip and 2 bag sytem and admitted for management of DKA. Her last HbA1C was 9.7 (decreased from 7.0 in November 2022). Review of Systems Constitutional: (-) fever ENT: Nose: (+) rhinorrhea Cardiovascular: (-) chest pain, (-) palpitations Respiratory: (-) cough, (-) shortness of breath Gastrointestinal: (+) nausea, (+) vomiting, (-) diarrhea, (-) constipation Genitourinary: (-) decreased urine output Skin: (-) rash Neurological: (-) headaches, (-) dizziness Endocrine: (+) polydipsia, (+) polyuria Physical Exam VS: BP 108/50 Pulse (!) 117 Temp 97.9 ??F (Oral) Resp 10 Ht 1.575 m (5' 2 ) Wt 50.3 kg (110 lb 14.3 oz) SpO2 100% Height: 157.5 cm (5' 2 ) 19 %ile (Z= -0.89) based on CDC (Girls, 2-20 Years) Rysnagt-vfz-ihj data based on Stature recorded on 08/01/2023. Weight: 50.3 kg (110 lb 14.3 oz) 19 %ile (Z= -0.87) based on CDC (Girls, 2-20 Years) ductat-pin-kaddmza using vitals from 08/01/2023. General: Awake and fully oriented. Tired-appearing, ambulatory and out of bed, tachycardic with regular respirations. Mouth / Oropharynx: Mucous membranes: moist Cardiovascular: Rate: + tachycardia Rhythm: regular Pulmonary: Auscultation: clear to auscultation Aeration: good aeration Abdominal: soft Tenderness: none Neurological: Orientation: oriented to person, place and time Labs / Results Results for orders placed or performed during the hospital encounter of 08/01/23 (from the past 24 hour(s)) -GLUCOSE - POINT OF CARE: Result Value Ref Range Glucose WB/POC 309 (H) 70 - 106 mg/* Specimen Type Cap Fingerstick -COMPREHENSIVE METABOLIC PANEL: Result Value Ref Range BUN 22 7 - 26 mg/dL Creatinine 0.65 0.56 - 0.96 * Sodium 132 (L) 136 - 145 mm* Potassium 4.9 (H) 3.5 - 4.5 mm* Chloride 98 98 - 107 mmo* CO2 11 (L) 22 - 29 mmol* Glucose 362 (H) 70 - 115 mg/* Calcium 10.5 (H) 8.4 - 10.2 m* Protein Total 8.2 6.0 - 8.3 g/* Albumin 4.6 3.4 - 5.0 g/* Bilirubin Total 0.6 0.2 - 1.2 mg* Alkaline Phosphatase 112 40 - 150 U/L ALT 13 5 - 55 U/L AST 22 5 - 34 U/L Anion Gap 23 (H) 6 - 16 BUN/Creatinine Ratio 34 (H) 7 - 23 Osmolality Calculated 292 270 - 300 mO* Albumin/Globulin Ratio 1.3 1.1 - 2.3 eGFR by CKD-EPI >90 >=90 mL/min/* -HYDROXYBUTYRATE BETA: Result Value Ref Range Beta-Hydroxybutyrate 5.31 (H) <0.50 mmol/L -GEM BLOOD GAS+COOX+LYTES+METAB VIRY POCT: Result Value Ref Range pH Venous 7.16 (LL) 7.32 - 7.42 * pO2 Venous 54 (H) 35 - 40 mmHg pCO2 Venous 35 (L) 40 - 50 mmHg HCO3 Venous 12.5 (L) 20 - 30 mmol* Base Excess Venous -15.2 (L) -2.0 - 2.0 m* Oxyhemoglobin Venous 74.8 % Deoxyhemoglobin (HHB) * 23.0 % Methemoglobin 1.3 0.0 - 2.0 % Carboxyhemoglobin 1.0 0.0 - 2.0 % O2 Content Venous 15.3 Interpret wi* Hemoglobin by COOX 14.6 12.0 - 16.0 * O2 Saturation Venous 77 >=70 % Sodium Whole Blood 134 (L) 135 - 145 mm* Potassium Whole Blood 5.2 3.5 - 5.5 mm* Chloride WB 98 78 - 107 mmo* Calcium Ionized 1.28 mmol/L Ionized Calcium pH Adj* 1.16 (L) 1.19 - 1.34 * Anion Gap (AG) Arteria* 24 (H) 6 - 16 mmol/L Glucose WB 402 (H) 70 - 115 mg/* Lactic Acid Whole Blood 4.7 (HH) <=2.0 mmol/L Notified Who DR. Carmen CAMPOS MD Notified By [id number] Notification Time 1027 Read Back and Verified Y -GLUCOSE - POINT OF CARE: Result Value Ref Range Glucose WB/POC 332 (H) 70 - 106 mg/* Specimen Type Cap Fingerstick -URINALYSIS W/MICROSCOPIC NO CULTURE: Specimen: Urine Clean Catch Result Value Ref Range Color UA Straw Straw, Yellow Clarity UA Clear Clear Specific [place] UA 1.020 1.005 - 1.030 pH UA 5.0 5.0 - 8.0 pH Protein UA Negative Negative Glucose UA 3+ (Abnormal) Negative Ketone UA 2+ (Abnormal) Negative Bilirubin UA Negative Negative Blood UA 2+ (Abnormal) Negative Nitrite UA Negative Negative Leukocyte Esterase Negative Negative Urobilinogen UA Negative Negative mg/* RBC UA 0-2 None Seen, 0* WBC UA 0-5 None Seen, 0* Bacteria UA None /HPF Trace (Abnormal) Squamous Epithelial Ce* 0-2 None Seen, 0* History Past Medical History: Diagnosis Date ??? Diabetic ketoacidosis without coma associated with type 1 diabetes mellitus (CMS/HCC) 03/03/2021 ??? NEGATIVE PAST MEDICAL HISTORY - SEE PROBLEM LIST Past Surgical History: Procedure Laterality Date ??? NEGATIVE SURGICAL HISTORY Family History Problem Relation Name Age of Onset ??? Negative Family History Other DM, thyroid d/o Social History Tobacco Use ??? Smoking status: Never Passive exposure: Never ??? Smokeless tobacco: Never Vaping Use ??? Vaping Use: Never used Substance Use Topics ??? Alcohol use: Never Alcohol/week: 0.0 standard drinks of alcohol ??? Drug use: Never Social History Social History Narrative Anaid lives with mother and grandmother. Goes to father's every other weekend. She is in the 10th grade at [employer] and is achieving average grades, IEP. She has an in-tact diabetes managementplan for school. Anaid has good friends and for extracurricular activity Anaid enjoys social [employer] and art. Anaid Dimas expresses feelings of acceptance regarding living with diabetes. History ??? Delivery Method: ??? Gestation Age: 40 wks No NICU stay or intubation Allergies Patient has no known allergies. Immunizations up to date and documented Medications Prior to Visit Current Medications Accu-Chek FastClix Lancets Use for blood glucose monitoring 4-6 times/day. acetone,urine, (Ketostix) strip Use as needed (use when blood sugar is greater than 250 or when ill. ) acetone,urine, (KETOSTIX) strip Use as directed for urine ketone checks if blood sugar above 250 orif ill. Dispense one bottle for school and one for home. Blood Glucose Monitoring Suppl (ACCU-CHEK DRAKE SMARTVIEW) W/DEVICE KIT kit Use for blood glucose monitoring. Blood Glucose Monitoring Suppl (Wattage VERIO IQ SYSTEM) w/Device KIT Use 1 kit as directed Continuous Blood Gluc Strategic Account Executive (Dexcom G6 Strategic Account Executive) ALICIA Use 1 Each as directed Continuous Blood Gluc Sensor (Dexcom G6 Sensor) MISC Inject 1 Each subcutaneously every 10 days Continuous Blood Gluc Transmit (Dexcom G6 Transmitter) MISC Use 1 Each Every 90 days Glucagon (Baqsimi Two Pack) 3 MG/DOSE POWD [place] 3 mg into the nose as needed (adminsiter as directed for severe low blood sugar) glucagon (GLUCAGON EMERGENCY) injection Inject 1 mg into muscle as directed for severe low blood sugar reaction. injection device-insulin (NOVOPEN ECHO) device Use for insulin delivery. insulin degludec (Tresiba) 100 UNIT/ML pen Inject 14 units daily insulin lispro (HumaLOG;ADMelog) 100 UNIT/ML pen INJECT 1 UNIT FOR EVERY 7 CARBOHYDRATES, WITH A MAX OF 40 UNITS PER DAY. Insulin Pen Needle (BD PEN NEEDLE DRAKE [...] ML MISC Use 1 syringe as directed Lantus SoloStar pen INJECT 18 UNITS UNDER SKIN ONCE NIGHTLY OneTouch Delica Lancets 33G MISC Use 1 Each as directed OneTouch Verio test strip USE DIRECTED 5-9 TIMES DAILY. oxybutynin CR 24hr (DITROPAN-XL) 10 MG tablet Take 1 (one) tablet by mouth at bedtime Assessment & Plan Diabetic ketoacidosis without coma associated with type 1 diabetes mellitus (CMS/[facility]) Assessment: 17 years old with ten-year history of type one diabetes presenting to ED with polyuria, polydipsia, nausea, vomiting, in DKA after missing two nighttime basal insulin doses. Acidotic (pH 7.16, HCO3 12.5, anion gap 23) and hyperglycemic (>300) with moderate ketonuria and non-critical K+ (4.9) on arrival. Tired-appearing but stable with regular [...] closes - Q1 hour glucose checks ?? Cherise Phillips MD Associated attestation - Breana Olivas MD - 08/01/2023 3:00 PM CDT I interviewed and examined Anaid in the ER. I agree with Dr. Phillips's H&P. Anaid missed 1-1/2 days of insulin due to the lack of pen needles. She denies symptoms of illness, including fever, cold symptoms, and diarrhea. Her mother called me from out of town this morning to report emesis, BS of 339, and large ketones. I referred her to our ER, brought by her aunt. She was last seen in clinic by me on 05/18/23, at which time her HbA1C was improved at 7.0%. Her MDIinsulin doses are Lantus 18 Units and Humalog 1 Unit: 15 grams for breakfast and lunch and 1:18 fordinner with a correction of 1 Unit: 40/150. On my exam, she was moderately ill-appearing, alert, and oriented without obvious Kussmaul respirations. Her MM were dry with tachycardia but good skin perfusion. Her abdomen was benign. Her admission labs were reviewed (see Dr. Phillips's note). An updated HbA1C value was ordered. Anaid's moderate DKA resulted from missed insulin; there are no symptoms/signs of infectious illness. She is managed with our DKA protocol, now on the TCU. A repeat BMP is pending. Recommend giving her Lantus 18 Units at dinnertime so she can eat this evening if her gap has normalized. I plan to review the importance of never missing insulin (she told her mother she would just eat protein since she could not take insulin) and sick day management with her tomorrow morning. Anticipate discharge by mid-day. Plan d/w the family and ER and purple teams. documented in this encounter Consult Notes * Romel Peters RD/VEE - 08/02/2023 6:40 AM CDTAssociated Order(s): IP CONSULT TO NUTRITIONAL SERV Initial Nutrition Assessment Anaid Dimas is a 17 year old female seen for consult to nutritional services. Diagnoses of Hyperglycemia and Diabetic ketoacidosis without coma associated with type 1 diabetes mellitus (CMS/HCC) were pertinent to this visit. Past Medical History: Diagnosis Date ??? Diabetic ketoacidosis without coma associated with type 1 diabetes mellitus (CMS/HCC) 03/03/2021 ??? NEGATIVE PAST MEDICAL HISTORY - SEE PROBLEM LIST Assessment: Anaid is well known to nutritional services and has been seen by CG RD in the past in regards toher T1DM. Last seen by RD in clinic on 07/22/2022 in diabetes in clinic. Anaid was admitted to [facility] due to elevated blood glucose. Per chart, Anaid had ran out of insulin needles and did not administer insulin for 72 hours. Ultimately resulted in DKA and admission for IV fluids and insulin administration. Since being admitted, diet has been advanced to CHO counting and has been tolerating PO. Current nutrition order: Orders Placed This Encounter Procedures ??? DIET CARBOHYDRATE COUNTING Standing Status: Standing Number of Occurrences: 1 Anthropometrics: Weight: 50.3 kg (110 lb 14.3 oz) 19 %ile (Z= -0.87) based on CDC (Girls, 2-20 Years) [id number] using vitals from 08/01/2023. Height: 157.5 cm (5' 2 ) 19 %ile (Z= -0.89) based on CDC (Girls, 2-20 Years) [id number] data based on Stature recorded on 08/01/2023. BMI: Body mass index is 20.28 kg/m??. Recent Weights/Methods 04/15/2022 1059 04/23/2022 0829 07/22/2022 0810 11/12/2022 1430 12/10/2022 1439 12/10/2022 1448 05/18/2023 0854 08/01/2023 0948 Weight: 55.2 kg (121 lb 11.1 oz) 56.5 kg (124 lb 9 oz) 54 kg (119 lb 0.8 oz) 52.9 kg (116 lb 10 oz)-- 51.4 kg (113 lb 5.1 oz) 53.3 kg (117 lb 8.1 oz) 50.3 kg (110 lb 14.3 oz) Weight Method (Utilize Scales): -- -- -- -- Standing Standing -- Standing Since October of 2020, Beverlys weight down trending from ~75th %ile to 19th %ile. 8.9 kg weightloss (15%) which meets criteria for severe malnutrition. Unsure if weight loss has been intentionalor not. Malnutrition Etiology Malnutrition in the context of: chronic disease Level of Malnutrition: Severe Primary Malnutrition Indicators: Weight Loss (2-20 years): 10% UBW Labs/Tests/Procedures Recent Labs Component Name 08/02/23 0347 08/01/23 1805 08/01/23 1429 08/01/23 1021 12/10/22 1535 03/04/21 0442 03/03/21 2357 03/03/21 2034 SODIUM - - - - - 141 143 140 POTASSIUM 3.9 4.4 5.0* 4.9* - 3.7 3.7 4.8 CHLORIDE - - - - - 113* 113* 113* CO2 22 16* 13* 11* - 17* 15* 12* BUN 13 14 19 22 - 12.1 16.3 18.4 CREATININE 0.66 0.53* 0.58 0.65 - 0.69 0.64 0.67 GLUCOSE 289* 213* 237* 362* - 135* 193* 218* CALCIUM 8.9 9.2 9.4 10.5* - 9.09 9.07* 9.45 ALT - - - 13 - - - - ALKPHOS - - - 112 - - - - AST - - - 22 - - - - EGFR >90 >90 >90 >90 - - - - - = values in this interval not displayed. Medications: Current Facility-Administered Medications Medication ??? insulin glargine (Lantus) vial 18 Units ??? insulin lispro (HumaLOG;ADMelog) 100 UNIT/ML pen 1-10 Units ??? insulin lispro (HumaLOG;ADMelog) 100 UNIT/ML pen 1-10 Units Estimated Needs: KCAL: 40-45 kcal/kg Protein (g): 0.8-1 g/kg protein Fluid (ml): Teresa (2106 mL/day) Needs based on: Kcal/kg- (Comment) Recommended Access Route: PO Education needed: Consistent Carb Education Provided: Prior to Discharge Nutrition Care Process (1) Nutrition Diagnostic Statement: Altered nutrition-related lab values related to:: endocrine dysfunction as evidenced by:: elevated HgbA1c or plasma glucose Nutrition Intervention: Meals and snacks: - Continue carbohydrate counting diet. Monitor PO intake throughout admission. Collaboration with other providers: - Spoke with resident. Monitoring: PO intake, labs, growth Evaluation: Nutrition Goal: Total intake will meet estimated nutrient needs Nutrition Goal Timeframe: Prior to discharge Nutrition Goal Progress: New goal established weekend pager [phone] documented in this encounter ED Notes * Sharan Campos MD - 08/01/2023 10:30 AM CDTAssociated Order(s): Critical Care Provider contact with the patient: 08/01/2023 10:30 AM [facility] EMERGENCY DEPARTMENT Anaid Dimas [id number] History Chief Complaint Patient presents with ??? HIGH BLOOD SUGAR BG 435 this am. DM1, ran out of insulin needles. Last dose of insulin was . Vomited x 1 today. Chief complaint narrative was entered by triage nurse, not by physician. I have read the resident/medical student/[employer] history. Unless appended by me below, I agree with findings as documented. HPI History provided per: Patient Anaid Dimas is a 17 year old female with a past medical history of T1DM and previous admissions for DKA due to noncompliance who presents to ED for evaluation of high blood sugar. Pt reports that she hasn't taken her Insulin for 3 days. Associated symptoms include 3 episodes of emesis today. No other recent injuries or illnesses. All [...] file Tobacco Use ??? Smoking status: Never Passive exposure: Never ??? Smokeless tobacco: Never Vaping Use ??? Vaping Use: Never used Substance and Sexual Activity ??? Alcohol use: Never Alcohol/week: 0.0 standard drinks of alcohol ??? Drug use: Never ??? Sexual activity: Not on file Other Topics Concern ??? Not on file Social History Narrative Anaid lives with mother and grandmother. Goes to father's every other weekend. She is in the 10th grade at [employer] and is achieving average grades, IEP. She [...] Negative Family History Other DM, thyroid d/o Current Discharge Medication List CONTINUE these medications which have NOT CHANGED Details !! Accu-Chek FastClix Lancets Use for blood glucose monitoring 4-6 times/day. Qty: 200 Each, Refills: 11 Associated Diagnoses: Type 1 diabetes mellitus without complication (CMS/HCC) !! acetone,urine, (Ketostix) strip Use as needed (use when blood sugar is greater than 250 or when ill. ) Qty: 50 strip, Refills: 0 Associated Diagnoses: Type 1 diabetes mellitus without complication (CMS/HCC) !! acetone,urine, (KETOSTIX) strip Use as directed for urine ketone checks if blood sugar above 250or if ill. Dispense one bottle for school and one for home. Qty: 100 strip, Refills: 3 Associated Diagnoses: Type 1 diabetes mellitus without complication (CMS/HCC) !! Blood Glucose Monitoring Suppl (ACCU-CHEK DRAKE SMARTVIEW) W/DEVICE KIT kit Use for blood glucosemonitoring. Qty: 1 Kit, Refills: 0 Associated Diagnoses: Diabetes mellitus type 1 (CMS/HCC) !! Blood Glucose Monitoring Suppl (Wattage VERIO IQ SYSTEM) w/Device KIT Use 1 kit as directed Qty: 2 kit, Refills: 0 Continuous Blood Gluc Strategic Account Executive (Dexcom G6 Strategic Account Executive) ALICIA Use 1 Each as directed Qty: 1 Each, Refills: 0 Associated Diagnoses: Type 1 diabetes mellitus without complication (CMS/HCC) Continuous Blood Gluc Sensor (Dexcom G6 Sensor) MISC Inject 1 Each subcutaneously every 10 days Qty: 3 Each, Refills: 5 Associated Diagnoses: Type 1 diabetes mellitus without complication (CMS/HCC) Continuous Blood Gluc Transmit (Dexcom G6 Transmitter) MISC Use 1 Each Every 90 days Qty: 1 Each, Refills: 3 Associated Diagnoses: Type 1 diabetes mellitus without complication ([facility]/HCC) Glucagon (Baqsimi Two Pack) 3 MG/DOSE POWD [place] 3 mg into the nose as needed (adminsiter as directed for severe low blood sugar) Qty: 1 Each, Refills: 0 glucagon (GLUCAGON EMERGENCY) injection Inject 1 mg into muscle as directed for severe low blood sugar reaction. Qty: 2 kit, Refills: 0 Associated Diagnoses: Type 1 diabetes mellitus without complication ([facility]/HCC) injection device-insulin (NOVOPEN ECHO) device Use for insulin delivery. Qty: 1 device, Refills: 1 Associated Diagnoses: Type 1 diabetes mellitus without complication ([facility]/HCC) insulin degludec (Tresiba) 100 UNIT/ML pen Inject 14 units daily Qty: 30 mL, Refills: 0 Comments: 90 day supply. insulin lispro (HumaLOG;ADMelog) 100 UNIT/ML pen INJECT 1 UNIT FOR EVERY 7 CARBOHYDRATES, WITH A MAX OF 40 UNITS PER DAY. Qty: 45 mL, Refills: 0 Comments: 90 day supply Associated Diagnoses: Type 1 diabetes mellitus without complication (CMS/HCC) !! Insulin Pen Needle (BD PEN NEEDLE DRAKE U/F) 32G X 4 MM MISC Use 4-6 Each once daily Qty: 200 Each, Refills: 11 !! Insulin Pen Needle (BD PEN NEEDLE DRAKE U/F) 32G X 4 MM MISC Use 4-6 Each as directed Use for injections 4-6 times daily. Qty: 200 Each, Refills: 11 Associated Diagnoses: Type 1 diabetes mellitus without complication (CMS/HCC) insulin syringe-needle (BD ULTRAFINE II) 31G X 5/16 0.3 ML syringe USE FOR INJECTION DAILY Qty: 100 Each, Refills: 0 Insulin Syringe-Needle U-100 (SAFESNAP INSULIN SYRINGE) 30G X 5/16 0.5 ML MISC Use 1 syringe as directed Qty: 50 Each, Refills: 5 Lantus SoloStar pen INJECT 18 UNITS UNDER SKIN ONCE NIGHTLY !! OneTouch Delica Lancets 33G MISC Use 1 Each as directed Qty: 200 Each, Refills: 0 Comments: Use to test blood sugar 4-5 times a day as directed. Associated Diagnoses: Type 1 diabetes mellitus without complication ([facility]) OneTouch Verio test strip USE DIRECTED 5-9 TIMES DAILY. Qty: 200 strip, Refills: 4 oxybutynin CR 24hr (DITROPAN-XL) 10 MG tablet Take 1 (one) tablet by mouth at bedtime Qty: 30 tablet, Refills: 11 !! - Potential duplicate medications found. Please discuss with provider. Review of Systems All relevant systems reviewed and all negative except as noted in resident/medical student/[employer] and attending HPI/ROS. Review of Systems Gastrointestinal: Positive for vomiting. All other systems reviewed and are negative. Physical Exam I have reviewed the resident/medical student/[employer] physical exam. Unless appended by me below, I agreewith the PE as documented. Vitals: 08/01/23 1200 08/01/23 1215 08/01/23 1230 08/01/23 1252 BP: 101/65 111/61 118/70 119/69 Pulse: (!) 111 (!) 114 (!) 112 Resp: (!) 33 (!) 35 (!) 36 Temp: 98.3 ??F (36.8 ??C) 98.1 ??F (36.7 ??C) SpO2: 99% 98% 100% 100% Weight: Height: Constitutional: Pt is tired appearing but nontoxic. Pt is lying on the stretcher and answering questions appropriately Head: Normocephalic; atraumatic. Eyes: Conjunctivae are normal. ENT: Mucous membranes dry Neck: Normal ROM. Cardiovascular:Tachycardic with good distal pulses Pulmonary: Lungs clear. Increased rate and depth of respiration Abdominal: Soft, flat, and nontender Extremities: Full ROM. Neurological: Pt is alert. Nursing notes and vitals reviewed. Procedures Critical Care Performed by: Sharan Campos MD Authorized by: Sharan Campos MD Critical care provider statement: Critical care time (minutes): 35 Critical care time was exclusive of: Separately billable procedures and treating other patients andteaching time Critical care was necessary to treat or prevent imminent or life-threatening deterioration of the following conditions: Endocrine crisis Critical care was time spent personally by me on the following activities: Pulse oximetry, orderingand review of laboratory studies, ordering and performing treatments and interventions, developmentof treatment plan with patient or surrogate, discussions with consultants, evaluation of patient's response to treatment, examination of patient, obtaining history from patient or surrogate and re-evaluation of patient's condition Labs/Orders Orders Placed This Encounter ??? ED CRITICAL CARE ??? COMPREHENSIVE METABOLIC PANEL ??? URINALYSIS W/MICROSCOPIC NO CULTURE ??? HYDROXYBUTYRATE BETA ??? GEM BLOOD GAS+COOX+LYTES+METAB VIRY POCT ??? BASIC METABOLIC PANEL (CALCIUM TOTAL) ??? IP CONSULT TO NUTRITIONAL SERV ??? IP CONSULT TO TATTOO ARTIST ??? 0.9% NaCl IV BOLUS 1,000 mL ??? lidocaine buffered 1-8.4 % injection 0.2 mL ??? ondansetron (Zofran) injection 4 mg ??? insulin regular human (MyXRedlin) 100 units in 100 mL premix infusion ??? 0.45% NaCl with potassium acetate 20 mEq/L, potassium phosphate 20 mEq/L INFUSION ??? dextrose 10 % with potassium acetate 20 mEq/L, potassium phosphate 20 mEq/L, NaCl (4mEq/mL) (Conc.Sodium Chloride) 0.45 % INFUSION ??? acetaminophen (Tylenol) tablet 650 mg No orders to display Hospital Encounter on 08/01/23 COMPREHENSIVE METABOLIC PANEL Result Value Ref Range BUN 22 7 - 26 mg/dL Creatinine 0.65 0.56 - 0.96 mg/dL Sodium 132 (L) 136 - 145 mmol/L Potassium 4.9 (H) 3.5 - 4.5 mmol/L Chloride 98 98 - 107 mmol/L CO2 11 (L) 22 - 29 mmol/L Glucose 362 (H) 70 - 115 mg/dL Calcium 10.5 (H) 8.4 - 10.2 mg/dL Protein Total 8.2 6.0 - 8.3 g/dL Albumin 4.6 3.4 - 5.0 g/dL Bilirubin Total 0.6 0.2 - 1.2 mg/dL Alkaline Phosphatase 112 40 - 150 U/L ALT 13 5 - 55 U/L AST 22 5 - 34 U/L Anion Gap 23 (H) 6 - 16 BUN/Creatinine Ratio 34 (H) 7 - 23 Osmolality Calculated 292 270 - 300 mOsm/kg Albumin/Globulin Ratio 1.3 1.1 - 2.3 eGFR by CKD-EPI >90 >=90 mL/min/1.73 m2 URINALYSIS W/MICROSCOPIC NO CULTURE Specimen: Urine Clean Catch Result Value Ref Range Color UA Straw Straw, Yellow Clarity UA Clear Clear Specific [place] UA 1.020 1.005 - 1.030 pH UA 5.0 5.0 - 8.0 pH Protein UA Negative Negative Glucose UA 3+ (Abnormal) Negative Ketone UA 2+ (Abnormal) Negative Bilirubin UA Negative Negative Blood UA 2+ (Abnormal) Negative Nitrite UA Negative Negative Leukocyte Esterase Negative Negative Urobilinogen UA Negative Negative mg/dL RBC UA 0-2 None Seen, 0-2, 3-5 /HPF WBC UA 0-5 None Seen, 0-5 /HPF Bacteria UA Trace (Abnormal) None /HPF Squamous Epithelial Cells UA 0-2 None Seen, 0-2, 3-5 /HPF HYDROXYBUTYRATE BETA Result Value Ref Range Beta-Hydroxybutyrate 5.31 (H) <0.50 mmol/L GEM BLOOD GAS+COOX+LYTES+METAB VIRY POCT Result Value Ref Range pH Venous 7.16 (LL) 7.32 - 7.42 pH pO2 Venous 54 (H) 35 - 40 mmHg pCO2 Venous 35 (L) 40 - 50 mmHg HCO3 Venous 12.5 (L) 20 - 30 mmol/L Base Excess Venous -15.2 (L) -2.0 - 2.0 mmol/L Oxyhemoglobin Venous 74.8 % Deoxyhemoglobin (HHB) Venous % 23.0 % Methemoglobin 1.3 0.0 - 2.0 % Carboxyhemoglobin 1.0 0.0 - 2.0 % O2 Content Venous 15.3 Interpret within clinical context ml/dL Hemoglobin by COOX 14.6 12.0 - 16.0 g/dL O2 Saturation Venous 77 >=70 % Sodium Whole Blood 134 (L) 135 - 145 mmol/L Potassium Whole Blood 5.2 3.5 - 5.5 mmol/L Chloride WB 98 78 - 107 mmol/L Calcium Ionized 1.28 mmol/L Ionized Calcium pH Adjusted 1.16 (L) 1.19 - 1.34 mmol/L Anion Gap (AG) Arterial 24 (H) 6 - 16 mmol/L Glucose WB 402 (H) 70 - 115 mg/dL Lactic Acid Whole Blood 4.7 (HH) <=2.0 mmol/L Notified Who DR. Carmen CAMPOS MD Notified By [id number] Notification Time 1027 Read Back and Verified Y GLUCOSE - POINT OF CARE Result Value Ref Range Glucose WB/POC 309 (H) 70 - 106 mg/dL Specimen Type Cap Fingerstick GLUCOSE - POINT OF CARE Result Value Ref Range Glucose WB/POC 332 (H) 70 - 106 mg/dL Specimen Type Cap Fingerstick GLUCOSE - POINT OF CARE Result Value Ref Range Glucose WB/POC 284 (H) 70 - 106 mg/dL Specimen Type Cap Fingerstick GLUCOSE - POINT OF CARE Result Value Ref Range Glucose WB/POC 268 (H) 70 - 106 mg/dL Specimen Type Cap Fingerstick ED Course Initial Assessment & Plan: Anaid Dimas is a 17 year old female who presents to the ED forevaluation of high blood sugar. Pt's evaluation is consistent with DKA. Fluid bolus initiated. Appropriate labs were sent. 10:40 AM PH is 7.16. 12:26 PM Bicarb is 11. Repeat sugar after NS bolus was 332. Insulin drip started and NS continued. Endocrineconsulted. Plan to admit the pt to their service. 12:26 PM I/we discussed with the floor team the need for admission for further evaluation and treatment. Thepatient/family express understanding and agreement with the plan. Medical Decision Making Medical Decision Making Diabetic ketoacidosis without coma associated with type 1 diabetes mellitus (CMS/HCC): acute illness or injury with systemic symptoms Hyperglycemia: acute illness or injury with systemic symptoms Amount and/or Complexity of Data Reviewed Independent Historian: parent Labs: ordered. Decision-making details documented in ED Course. Discussion of management or test interpretation with external provider(s): Endocrine Risk OTC drugs. Prescription drug management. Decision regarding hospitalization. The total time providing critical care (excluding time spent for procedures) was: 35 minutes. Clinical Impression and Disposition Final Diagnosis: Final diagnoses: Hyperglycemia Diabetic ketoacidosis without coma associated with type 1 diabetes mellitus (CMS/HCC) Disposition: Admit to Endocrine Services 08/01/2023 12:26 PM Scribe Attestation By signing my name below, IKeesha, attest that this documentation has been prepared underthe direction and in the presence of Dr. Campos Electronically Signed: Keesha Swain 08/01/2023 10:30 AM Provider Attestation I, Dr. Campos, personally performed the services described in this documentation. All medical recordentries made by the scribe were at my direction and in my presence. I have reviewed the chart and agree that the record reflects my personal performance and is accurate and complete. I have fully participated in the care of this patient. I have reviewed all pertinent clinical information available to me during this encounter, including history, physical exam and plan. I have reviewed nursing notes, vital signs, available labs and radiographic studies. With respect to physicians in training and mid-level providers, I, Dr. Campos, agree with the assessment and plan except if revised in my note. * Mariano Palmer, DO - 08/01/2023 10:06 AM CDT [facility] EMERGENCY DEPARTMENT [id number] ED Encounter Note A ueqsunwrz-ft-ftewnpoo working with a supervising attending writes the following note. As such, the note will be abbreviated specifying sexton portions of the ED encounter. A more complete note of the ED encounter from the supervising attending physician can be found in the medical record. HISTORY Provider contact with the patient: 08/01/2023 Anaid Dimas [id number] Chief Complaint Patient presents with ??? HIGH BLOOD SUGAR BG 435 this am. DM1, ran out of insulin needles. Last dose of insulin was . Vomited x 1 today. The chief complaint narrative was entered by [...] Pertinent physical exam findingsstated below. Physical Exam Vitals reviewed. Exam conducted with a fur examiner present. Constitutional: General: She is not in acute distress. Appearance: Normal appearance. She is normal weight. She is ill-appearing. HENT: Head: Normocephalic and atraumatic. Right Ear: Tympanic membrane, ear canal and external ear normal. Left Ear: Tympanic membrane, ear canal and external ear normal. Nose: Nose normal. No congestion or rhinorrhea. Mouth/Throat: Mouth: Mucous membranes are dry. Pharynx: Oropharynx is clear. No oropharyngeal exudate or posterior oropharyngeal erythema. Eyes: General: No scleral icterus. Right eye: No discharge. Left eye: No discharge. Extraocular Movements: Extraocular movements intact. Conjunctiva/sclera: Conjunctivae normal. Pupils: Pupils are equal, round, and reactive to light. Cardiovascular: Rate and Rhythm: Regular rhythm. Tachycardia present. Pulses: Normal pulses. Heart sounds: Normal heart sounds. No murmur heard. Pulmonary: Effort: Pulmonary effort is normal. No respiratory distress. Breath sounds: Normal breath sounds. No stridor. No wheezing. Chest: Chest wall: No tenderness. Abdominal: General: Abdomen is flat. Bowel sounds are normal. There is no distension. Palpations: Abdomen is soft. Tenderness: There is no abdominal tenderness. Hernia: No hernia is present. Musculoskeletal: General: No swelling, tenderness or deformity. Normal range of motion. Cervical back: Normal range of motion. No rigidity or tenderness. Lymphadenopathy: Cervical: No cervical adenopathy. Skin: General: Skin is warm. Capillary Refill: Capillary refill takes less than 2 seconds. Coloration: Skin is not jaundiced. Findings: No bruising or lesion. Neurological: General: No focal deficit present. Mental Status: She is alert and oriented to person, place, and time. Mental status is at baseline. Cranial Nerves: No cranial nerve deficit. Sensory: No sensory deficit. Motor: No weakness. PE: BP 107/61 Pulse (!) 110 Temp 98.3 ??F (36.8 ??C) (Axillary) Resp 20 Ht 1.575 m (5' 2 ) Wt50.3 kg (110 lb 14.3 oz) SpO2 97% PROCEDURE Procedures LABS/ORDERS Orders Placed This Encounter ??? ED CRITICAL CARE ??? COMPREHENSIVE METABOLIC PANEL ??? URINALYSIS W/MICROSCOPIC NO CULTURE ??? HYDROXYBUTYRATE BETA ??? GEM BLOOD GAS+COOX+LYTES+METAB VIRY POCT ??? BASIC METABOLIC PANEL (CALCIUM TOTAL) ??? KETONES QUALITATIVE URINE AUTO ??? IP CONSULT TO NUTRITIONAL SERV ??? IP CONSULT TO TATTOO ARTIST ??? 0.9% NaCl IV BOLUS 1,000 mL ??? lidocaine buffered 1-8.4 % injection 0.2 mL ??? ondansetron (Zofran) injection 4 mg ??? insulin regular human (MyXRedlin) 100 units in 100 mL premix infusion ??? 0.45% NaCl with potassium acetate 20 mEq/L, potassium phosphate 20 mEq/L INFUSION ??? dextrose 10 % with potassium acetate 20 mEq/L, potassium phosphate 20 mEq/L, NaCl (4mEq/mL) (Conc.Sodium Chloride) 0.45 % INFUSION ??? acetaminophen (Tylenol) tablet 650 mg No orders to display Hospital Encounter on 08/01/23 COMPREHENSIVE METABOLIC PANEL Result Value Ref Range BUN 22 7 - 26 mg/dL Creatinine 0.65 0.56 - 0.96 mg/dL Sodium 132 (L) 136 - 145 mmol/L Potassium 4.9 (H) 3.5 - 4.5 mmol/L Chloride 98 98 - 107 mmol/L CO2 11 (L) 22 - 29 mmol/L Glucose 362 (H) 70 - 115 mg/dL Calcium 10.5 (H) 8.4 - 10.2 mg/dL Protein Total 8.2 6.0 - 8.3 g/dL Albumin 4.6 3.4 - 5.0 g/dL Bilirubin Total 0.6 0.2 - 1.2 mg/dL Alkaline Phosphatase 112 40 - 150 U/L ALT 13 5 - 55 U/L AST 22 5 - 34 U/L Anion Gap 23 (H) 6 - 16 BUN/Creatinine Ratio 34 (H) 7 - 23 Osmolality Calculated 292 270 - 300 mOsm/kg Albumin/Globulin Ratio 1.3 1.1 - 2.3 eGFR by CKD-EPI >90 >=90 mL/min/1.73 m2 URINALYSIS W/MICROSCOPIC NO CULTURE Specimen: Urine Clean Catch Result Value Ref Range Color UA Straw Straw, Yellow Clarity UA Clear Clear Specific [place] UA 1.020 1.005 - 1.030 pH UA 5.0 5.0 - 8.0 pH Protein UA Negative Negative Glucose UA 3+ (Abnormal) Negative Ketone UA 2+ (Abnormal) Negative Bilirubin UA Negative Negative Blood UA 2+ (Abnormal) Negative Nitrite UA Negative Negative Leukocyte Esterase Negative Negative Urobilinogen UA Negative Negative mg/dL RBC UA 0-2 None Seen, 0-2, 3-5 /HPF WBC UA 0-5 None Seen, 0-5 /HPF Bacteria UA Trace (Abnormal) None /HPF Squamous Epithelial Cells UA 0-2 None Seen, 0-2, 3-5 /HPF HYDROXYBUTYRATE BETA Result Value Ref Range Beta-Hydroxybutyrate 5.31 (H) <0.50 mmol/L GEM BLOOD GAS+COOX+LYTES+METAB VIRY POCT Result Value Ref Range pH Venous 7.16 (LL) 7.32 - 7.42 pH pO2 Venous 54 (H) 35 - 40 mmHg pCO2 Venous 35 (L) 40 - 50 mmHg HCO3 Venous 12.5 (L) 20 - 30 mmol/L Base Excess Venous -15.2 (L) -2.0 - 2.0 mmol/L Oxyhemoglobin Venous 74.8 % Deoxyhemoglobin (HHB) Venous % 23.0 % Methemoglobin 1.3 0.0 - 2.0 % Carboxyhemoglobin 1.0 0.0 - 2.0 % O2 Content Venous 15.3 Interpret within clinical context ml/dL Hemoglobin by COOX 14.6 12.0 - 16.0 g/dL O2 Saturation Venous 77 >=70 % Sodium Whole Blood 134 (L) 135 - 145 mmol/L Potassium Whole Blood 5.2 3.5 - 5.5 mmol/L Chloride WB 98 78 - 107 mmol/L Calcium Ionized 1.28 mmol/L Ionized Calcium pH Adjusted 1.16 (L) 1.19 - 1.34 mmol/L Anion Gap (AG) Arterial 24 (H) 6 - 16 mmol/L Glucose WB 402 (H) 70 - 115 mg/dL Lactic Acid Whole Blood 4.7 (HH) <=2.0 mmol/L Notified Who DR. Carmen CAMPOS MD Notified By [id number] Notification Time 1027 Read Back and Verified Y BASIC METABOLIC PANEL (CALCIUM TOTAL) Result Value Ref Range BUN 19 7 - 26 mg/dL Creatinine 0.58 0.56 - 0.96 mg/dL Sodium 134 (L) 136 - 145 mmol/L Potassium 5.0 (H) 3.5 - 4.5 mmol/L Chloride 107 98 - 107 mmol/L CO2 13 (L) 22 - 29 mmol/L Glucose 237 (H) 70 - 115 mg/dL Calcium 9.4 8.4 - 10.2 mg/dL Anion Gap 14 6 - 16 BUN/Creatinine Ratio 33 (H) 7 - 23 Osmolality Calculated 288 270 - 300 mOsm/kg eGFR by CKD-EPI >90 >=90 mL/min/1.73 m2 KETONES QUALITATIVE URINE AUTO Result Value Ref Range Ketone UA 2+ (Abnormal) Negative GLUCOSE - POINT OF CARE Result Value Ref Range Glucose WB/POC 309 (H) 70 - 106 mg/dL Specimen Type Cap Fingerstick GLUCOSE - POINT OF CARE Result Value Ref Range Glucose WB/POC 332 (H) 70 - 106 mg/dL Specimen Type Cap Fingerstick GLUCOSE - POINT OF CARE Result Value Ref Range Glucose WB/POC 284 (H) 70 - 106 mg/dL Specimen Type Cap Fingerstick GLUCOSE - POINT OF CARE Result Value Ref Range Glucose WB/POC 268 (H) 70 - 106 mg/dL Specimen Type Cap Fingerstick GLUCOSE - POINT OF CARE Result Value Ref Range Glucose WB/POC 260 (H) 70 - 106 mg/dL Specimen Type Cap Fingerstick GLUCOSE - POINT OF CARE Result Value Ref Range Glucose WB/POC 206 (H) 70 - 106 mg/dL Specimen Type Cap Fingerstick GLUCOSE - POINT OF CARE Result Value Ref Range Glucose WB/POC 197 (H) 70 - 106 mg/dL Specimen Type Cap Fingerstick ED COURSE Anaid Dimas is a 17 year old female presenting with: - elevated blood glucose levels. Patient states she forgot to take her insulin this morning and when she checked her glucose levels at home, they were elevated in the 400s. Patient states that she has had rhinorrhea and sore throat for the last couple days. Also reports associated nausea but not vomiting. Denies fevers, abdominal pain, CP, SOB, urinary or bowel changes. - Patient has multiple previous admissions for DKA all 2/2 medication non compliance. - Differential Diagnoses: DKA, HHS, UTI, viral URI, electrolyte abnormality, other ED Management: ED Course as of 08/01/23 1631 Sat Aug 01, 2023 1005 Will evaluate for potential DKA with labwork and urine studies. Will also give antiemetics andIVF at this time [DB] 1047 Blood gas notable for metabolic acidosis with a pH of 7.16, lactic acid of 4.7, anion gap of 24, and potassium of 5.2. Will order insulin drip and DKA 2 bag IVF at this time. Patient already receiving initial IVF bolus [DB] [address] Olivas consulted and recommends admission to the TCU for management of patients DKA. [DB] ED Course User Index [DB] Mariano Palmer, Clinical Impressions as of 08/01/23 1631 Hyperglycemia Diabetic ketoacidosis without coma associated with type 1 diabetes mellitus (CMS/HCC) MDM CLINICAL IMPRESSIONS AND DISPOSITION Final Diagnosis: Final diagnoses: Hyperglycemia Diabetic ketoacidosis without coma associated with type 1 diabetes mellitus (CMS/HCC) Disposition: admission to TCU documented in this encounter Miscellaneous Notes * Coding Query - Breana Olivas MD - 08/02/2023 10:27 AM CDT DOCUMENTATION CLARIFICATION REQUEST Use the F2 function sexton to complete the query. Click on ???Sign?? to file the note. TO: Dr. Olivas FROM: LAURA Freire, RN, CDS Email: [email or web address] Patient Name: Anaid Dimas Please review the clinical information below and clarify the patient's nutritional status. Choices may include but are not limited to: ??? Severe malnutrition ??? Moderate malnutrition ??? Other, please specify ??? Unable to determine The medical record reflects the following: Risk Factors: Type 1 diabetes with DKA Clinical Findings: Per 08/02 nutrition consult Since October of 2020, Anaid's weight down trending from ~75th %ile to 19th %ile. 8.9 kg weight loss (15%) which meets criteria for severe malnutrition. Unsure if weight loss has been intentional or not.Level of Malnutrition: Severe Primary Malnutrition Indicators: Weight Loss (2-20 years): 10% UBW Treatment: Nutrition consult, weights PROVIDER RESPONSE (Use F2 to respond) Agree with severe malnutrition, attributed at least in part to poor diabetes control. Unsure how toadd this to my inpatient notes. Please provide your clinical opinion and findings to support the diagnosis in the progress notes & carry it through into your discharge summary. THIS DOCUMENT IS MAINTAINED A PERMANENT PART OF THE MEDICAL RECORD. documented in this encounter Plan of Treatment Not on file documented as of this encounter Procedures Procedure Name Priority Date/Time Associated Diagnosis Comments GLUCOSE - POINT OF CARE Routine 08/02/20 10:09 AM CDT KETONES QUALITATIVE URINE AUTO Routine 08/02/2023 8:59 AM CDT HEMOGLOBIN A1C Routine 08/02/2023 3:47 AM CDT BASIC METABOLIC PANEL (CALCIUM TOTAL) Timed 08/02/2023 3:47 AM CDT GLUCOSE - POINT OF CARE Routine 08/02/20 3:18 AM CDT GLUCOSE - POINT OF CARE Routine 08/01/20 11:56 PM CDT GLUCOSE - POINT OF CARE Routine 08/01/20 11:51 PM CDT GLUCOSE - POINT OF CARE Routine 08/01/20 9:08 PM CDT GLUCOSE - POINT OF CARE Routine 08/01/20 8:09 PM CDT KETONES QUALITATIVE URINE AUTO Routine 08/01/2023 7:45 PM CDT GLUCOSE - POINT OF CARE Routine 08/01/20 7:06 PM CDT GLUCOSE - POINT OF CARE Routine 08/01/20 6:13 PM CDT BASIC METABOLIC PANEL (CALCIUM TOTAL) Timed 08/01/2023 6:05 PM CDT GLUCOSE - POINT OF CARE Routine 08/01/20 5:02 PM CDT GLUCOSE - POINT OF CARE Routine 08/01/20 4:11 PM CDT GLUCOSE - POINT OF CARE Routine 08/01/20 3:06 PM CDT BASIC METABOLIC PANEL (CALCIUM TOTAL) Timed 08/01/2023 2:29 PM CDT GLUCOSE - POINT OF CARE Routine 08/01/20 2:01 PM CDT KETONES QUALITATIVE URINE AUTO Routine 08/01/2023 1:58 PM CDT GLUCOSE - POINT OF CARE Routine 08/01/20 1:00 PM CDT GLUCOSE - POINT OF CARE Routine 08/01/20 12:30 PM CDT URINALYSIS W/MICROSCOPIC NO CULTURE STAT 08/01/2023 11:46 AM CDT GLUCOSE - POINT OF CARE Routine 08/01/20 11:44 AM CDT ED CRITICAL CARE Routine 08/01/2023 10:3 0 AM CDT GEM BLOOD GAS+COOX+LYTES+METAB VIRY POCT STAT 08/01/2023 10:21 AM CDT HYDROXYBUTYRATE BETA STAT 08/01/2023 10:21 AM CDT COMPREHENSIVE METABOLIC PANEL STAT 08/01/2023 10:21 AM CDT GLUCOSE - POINT OF CARE Routine 08/01/20 9:47 AM CDT documented in this encounter Results * (ABNORMAL) GLUCOSE - POINT OF CARE (08/02/2023 10:09 AM CDT) [facility] Glucose WB/POC 174(H) 70 - 106 mg/dL 08/02/2023 10:16 AM CDT [facility] Specimen Type Cap Fingerstick 2022 10:16 AM CDT [facility] Blood BLOOD SPECIMEN / Unknown 08/02/2023 10:09 AM CDT 08/02/2023 10:16 AM CDT Breana Olivas MD LAB - POINT OF CARE ORDERABLES [facility] [address] [place] [address] * (ABNORMAL) KETONES QUALITATIVE URINE AUTO (08/02/2023 8:59 AM CDT) [facility] Ketone UA Trace(A) Negative 08/02/2023 9:33 AM [facility] Urine URINE / Unknown Collection / Unknown 08/02/2023 8:59 AM CDT 08/02/2023 9:14 AM CDT [facility] - 08/02/2023 9:33 AM CDT Breana Olivas MD LAB - URINALYSIS ORD ERABLES [facility] [address] [place] [address], [facility] [phone] * (ABNORMAL) BASIC METABOLIC PANEL (CALCIUM TOTAL) (08/02/2023 3:47 AM CDT) [facility] BUN 13 7 - 26 mg/dL 08/02/2023 [...] 270 - 300 mOsm/kg 08/02/2023 4:25 AM T [facility] eGFR by CKD-EPI >90 >=90 mL/min/1.7 3 m2 08/02/2023 4:25 AM [facility] Blood BLOOD SPECIMEN / Unknown Lab Venipuncture / Unknown 08/02/2023 3:47 AM CDT 08/02/2023 3:58 AM CDT Breana Olivas MD LAB - CHEMISTRY MANJULA ZHAO Performing Organization Address City/[facility]/ZIP Co de Phone Number [address] [address], [facility] [phone] * (ABNORMAL) HEMOGLOBIN A1C (08/02/2023 3:47 AM CDT) Hemoglobin A1c 7.3(H) <=5.6 % 08/02/2023 9:08 AM [facility] Estimated Average Glucose 163 mg/dL 08/02/2023 9:08 AM [facility] Comment: HbA1c Interpretation: Normal : < 5.7% Pre-diabetes: 5.7-6.4% Diabetes: Equal to or greater than 6.5% Test results diagnostic of diabetes should be repeated for confirmation. Treatment target values recommended by ADA and other clinical organizations should be used to evaluate metabolic control in patients. Reference: [place] [employer], Standards of Care in Diabetes -2020 In patients 70 years and older consider HbA1c target range of 7.0-7.5% (Reference: Ramirez Ding, et al. JAMDA. 2012) The Sebia assay for the measurement of HbA1c is a National Glycohemoglobin Standardization Program (NGSP) certified method. Blood BLOOD SPECIMEN / Unknown Lab Venipuncture / Unknown 08/02/2023 3:47 AM CDT 08/02/2023 3:58 AM CDT Breana Olivas MD LAB - CHEMISTRY MANJULA ZHAO Performing Organization Address City/[facility]/ZIP Co de Phone Number [address] [address], [place] [phone] * (ABNORMAL) GLUCOSE - POINT OF CARE (08/02/2023 3:18 AM CDT) Glucose WB/POC 292(H) 70 - 106 mg/dL 08/02/2023 3:25 AM CDT [facility] Specimen Type Cap Fingerstick 2022 3:25 AM CDT [facility] Blood BLOOD SPECIMEN / Unknown 08/02/2023 3:18 AM CDT 08/02/2023 3:25 AM CDT Breana Olivas MD LAB - POINT OF CARE ORDERABLES Performing Organization Address [facility]/ZIP Co de Phone Number [facility] [address] [place] [address] * (ABNORMAL) GLUCOSE - POINT OF CARE (08/01/2023 11:56 PM CDT) Glucose WB/POC 350(H) 70 - 106 mg/dL 08/01/2023 11:58 PM CDT [facility] Specimen Type Cap Fingerstick 2022 11:58 PM CDT [facility] Blood BLOOD SPECIMEN / Unknown 08/01/2023 11:56 PM CDT 08/01/2023 11:58 PM CDT Breana Olivas MD LAB - POINT OF CARE ORDERABLES Performing Organization Address [facility]/ZIP Co de Phone Number [facility] [place] [address] * (ABNORMAL) GLUCOSE - POINT OF CARE (08/01/2023 11:51 PM CDT) Glucose WB/POC 351(H) 70 - 106 mg/dL 08/01/2023 11:56 PM CDT [facility] Specimen Type Cap Fingerstick 2022 11:56 PM CDT [facility] Blood BLOOD SPECIMEN / Unknown 08/01/2023 11:51 PM CDT 08/01/2023 11:56 PM CDT Breana Olivas MD LAB - POINT OF CARE ORDERABLES Performing Organization Address [facility]/ZIP Co de Phone Number [facility] [address] [place] [phone] * (ABNORMAL) GLUCOSE - POINT OF CARE (08/01/2023 9:08 PM CDT) Glucose WB/POC 218(H) 70 - 106 mg/dL 08/01/2023 9:13 PM CDT [facility] Specimen Type Cap Fingerstick 2022 9:13 PM CDT [facility] Blood BLOOD SPECIMEN / Unknown 08/01/2023 9:08 PM CDT 08/01/2023 9:13 PM CDT Breana Olivas MD LAB - POINT OF CARE ORDERABLES Performing Organization Address [facility] Co de Phone Number [facility] [address] [place] [phone] * (ABNORMAL) GLUCOSE - POINT OF CARE (08/01/2023 8:09 PM CDT) Glucose WB/POC 201(H) 70 - 106 mg/dL 08/01/2023 8:12 PM CDT [facility] Specimen Type Cap Fingerstick 2022 8:12 PM CDT [facility] Blood BLOOD SPECIMEN / Unknown 08/01/2023 8:09 PM CDT 08/01/2023 8:12 PM CDT Breana Olivas MD LAB - POINT OF CARE ORDERABLES Performing Organization Address [facility]/ZIP Co de Phone Number [facility] [address] [place] [phone] * (ABNORMAL) KETONES QUALITATIVE URINE AUTO (08/01/2023 7:45 PM CDT) Ketone UA 1+(A) Negative 08/01/2023 8:06 PM CDT [facility] Urine URINE / Unknown Collection / Unknown 08/01/2023 7:45 PM CDT 08/01/2023 7:56 PM CDT Narrative [facility] - 08/01/2023 8:06 PM CDT Breana Olivas MD LAB - URINALYSIS ORD ERABLES Performing Organization Address City/[facility]/ZIP Co de Phone Number [facility] [address] [place] [address], [facility] [phone] * (ABNORMAL) GLUCOSE - POINT OF CARE (08/01/2023 7:06 PM CDT) Glucose WB/POC 176(H) 70 - 106 mg/dL 08/01/2023 7:12 PM CDT [facility] Specimen Type Cap Fingerstick 2022 7:12 PM CDT [facility] Blood BLOOD SPECIMEN / Unknown 08/01/2023 7:06 PM CDT 08/01/2023 7:12 PM CDT Breana Olivas MD LAB - POINT OF CARE ORDERABLES Performing Organization Address [facility] Co de Phone Number [facility] [address] [place] [phone] * (ABNORMAL) GLUCOSE - POINT OF CARE (08/01/2023 6:13 PM CDT) [facility] Glucose WB/POC 209(H) 70 - 106 mg/dL 08/01/2023 6:20 PM CDT [facility] Specimen Type Cap Fingerstick 2022 6:20 PM CDT [facility] Blood BLOOD SPECIMEN / Unknown 08/01/2023 6:13 PM CDT 08/01/2023 6:20 PM CDT Breana Olivas MD LAB - POINT OF CARE ORDERABLES Performing Organization Address [facility]/ZIP Co de Phone Number [facility] [address] [place] [phone] * (ABNORMAL) BASIC METABOLIC PANEL (CALCIUM TOTAL) (08/01/2023 6:05 PM CDT) BUN 14 7 - 26 mg/dL 08/01/2023 6:41 PM [facility] Creatinine 0.53(L) 0.56 - 0.96 mg/dL 08/01/2023 6:41 PM [facility] Sodium 130(L) 136 - 145 mmol/L 08/01/2023 6:41 PM [facility] Potassium 4.4 3.5 - 4.5 mmol/L 08/01/2023 6:41 PM [facility] Chloride 105 98 - 107 mmol/L 08/01/2023 6:41 PM [facility] CO2 16(L) 22 - 29 mmol/L 08/01/2023 6:41 PM [facility] Glucose 213(H) 70 - 115 mg/dL 08/01/2023 6:41 PM [facility] Calcium 9.2 8.4 - 10.2 mg/dL 08/01/2023 6:41 PM [facility] Anion Gap 9 6 - 16 08/01/2023 6:41 PM [facility] BUN/Creatinine Ratio 26(H) 7 - 23 08/01/2023 6:41 PM [facility] Osmolality Calculated 277 270 - 300 mOsm/kg 08/01/2023 6:41 PM [facility] eGFR by CKD-EPI >90 >=90 mL/min/1.7 3 m2 08/01/2023 6:41 PM [facility] Blood BLOOD SPECIMEN / Unknown Lab Venipuncture / Unknown 08/01/2023 6:05 PM CDT 08/01/2023 6:13 PM CDT Sharan Campos MD LAB - CHEMISTRY MANJULA ZHAO [facility] Organization Address City/State/ZIP Co de Phone Number [facility] [address] [place] [address], [facility] [phone] * (ABNORMAL) GLUCOSE - POINT OF CARE (08/01/2023 5:02 PM CDT) Glucose WB/POC 222(H) 70 - 106 mg/dL 08/01/2023 5:06 PM T [facility] Specimen Type Cap Fingerstick 2022 5:06 PM CDT [facility] Blood BLOOD SPECIMEN / Unknown 08/01/2023 5:02 PM CDT 08/01/2023 5:06 PM CDT Breana Olivas MD LAB - POINT OF CARE ORDERABLES Performing Organization Address [facility]/ZIP Co de Phone Number [facility] [address] [place] [phone] * (ABNORMAL) GLUCOSE - POINT OF CARE (08/01/2023 4:11 PM CDT) Glucose WB/POC 197(H) 70 - 106 mg/dL 08/01/2023 4:18 PM CDT [facility] Specimen Type Cap Fingerstick 2022 4:18 PM CDT [facility] Blood BLOOD SPECIMEN / Unknown 08/01/2023 4:11 PM CDT 08/01/2023 4:18 PM CDT Breana Olivas MD LAB - POINT OF CARE ORDERABLES Performing Organization Address [facility] Co de Phone Number [facility] [address] [place] [phone] * (ABNORMAL) GLUCOSE - POINT OF CARE (08/01/2023 3:06 PM CDT) Glucose WB/POC 206(H) 70 - 106 mg/dL 08/01/2023 3:13 PM CDT [facility] Specimen Type Cap Fingerstick 2022 3:13 PM CDT [facility] Blood BLOOD SPECIMEN / Unknown 08/01/2023 3:06 PM CDT 08/01/2023 3:13 PM CDT Breana Olivas MD LAB - POINT OF CARE ORDERABLES Performing Organization Address [facility]/ZIP Co de Phone Number [facility] [address] [place] [phone] * (ABNORMAL) BASIC METABOLIC PANEL (CALCIUM TOTAL) (08/01/2023 2:29 PM CDT) Pathologist [facility] BUN 19 7 - 26 mg/dL 08/01/2023 3:01 PM [facility] Creatinine 0.58 0.56 - 0.96 mg/dL 08/01/2023 3:01 PM [facility] Sodium 134(L) 136 - 145 mmol/L 08/01/2023 3:01 PM [facility] Potassium 5.0(H) 3.5 - 4.5 mmol/L 08/01/2023 3:01 PM [facility] Chloride 107 98 - 107 mmol/L 08/01/2023 3:01 PM [facility] CO2 13(L) 22 - 29 mmol/L 08/01/2023 3:01 PM [facility] Glucose 237(H) 70 - 115 mg/dL 08/01/2023 3:01 PM [facility] Calcium 9.4 8.4 - 10.2 mg/dL 08/01/2023 3:01 PM [facility] Anion Gap 14 6 - 16 08/01/2023 3:01 PM [facility] BUN/Creatinine Ratio 33(H) 7 - 23 08/01/2023 3:01 PM [facility] Osmolality Calculated 288 270 - 300 mOsm/kg 08/01/2023 3:01 PM [facility] eGFR by CKD-EPI >90 >=90 mL/min/1.7 3 m2 08/01/2023 3:01 PM [facility] Blood BLOOD SPECIMEN / Unknown Lab Venipuncture / Unknown 08/01/2023 2:29 PM CDT 08/01/2023 2:34 PM CDT Sharan Campos MD LAB - CHEMISTRY MANJULA ZHAO [facility] Organization Address City/State/ZIP Co de Phone Number [facility] [address] [place] [address], [facility] [phone] * (ABNORMAL) GLUCOSE - POINT OF CARE (08/01/2023 2:01 PM CDT) [facility] Glucose WB/POC 260(H) 70 - 106 mg/dL 08/01/2023 3:13 PM CDT [facility] Specimen Type Cap Fingerstick 2022 3:13 PM CDT [facility] Blood BLOOD SPECIMEN / Unknown 08/01/2023 2:01 PM CDT 08/01/2023 3:13 PM CDT Breana Olivas MD LAB - POINT OF CARE ORDERABLES Performing Organization Address [facility]/ZIP Co de Phone Number [facility] [address] [place] [phone] * (ABNORMAL) KETONES QUALITATIVE URINE AUTO (08/01/2023 1:58 PM CDT) Ketone UA 2+(A) Negative 08/01/2023 2:44 PM CDT [facility] Urine URINE / Unknown Collection / Unknown 08/01/2023 1:58 PM CDT 08/01/2023 2:25 PM CDT Narrative [facility] - 08/01/2023 2:44 PM CDT Breana Olivas MD LAB - URINALYSIS ORD ERABLES Performing Organization Address [facility] Co de Phone Number [facility] [address] [place] [address], [facility] [phone] * (ABNORMAL) GLUCOSE - POINT OF CARE (08/01/2023 1:00 PM CDT) Glucose WB/POC 268(H) 70 - 106 mg/dL 08/01/2023 1:07 PM CDT [facility] Specimen Type Cap Fingerstick 2022 1:07 PM CDT [facility] Blood BLOOD SPECIMEN / Unknown 08/01/2023 1:00 PM CDT 08/01/2023 1:07 PM CDT Breana Olivas MD LAB - POINT OF CARE ORDERABLES Performing Organization Address [facility]/ZIP Co de Phone Number [facility] [address] [place] [phone] * (ABNORMAL) GLUCOSE - POINT OF CARE (08/01/2023 12:30 PM CDT) Glucose WB/POC 284(H) 70 - 106 mg/dL 08/01/2023 12:33 PM CDT [facility] Specimen Type Cap Fingerstick 2022 12:33 PM CDT [facility] Blood BLOOD SPECIMEN / Unknown 08/01/2023 12:30 PM CDT 08/01/2023 12:33 PM CDT Breana Olivas MD LAB - POINT OF CARE ORDERABLES [facility] [address] [place] [phone] * (ABNORMAL) URINALYSIS W/MICROSCOPIC NO CULTURE (08/01/2023 11:46 AM CDT) Color UA Straw Straw, Yellow 08/01/2023 11:59 AM [facility] Clarity UA Clear Clear 08/01/2023 11:59 AM [facility] Specific [place] UA 1.020 1.005 - 1.030 08/01/2023 11:59 AM [facility] pH UA 5.0 5.0 - 8.0 pH 08/01/2023 11:59 AM [facility] Protein UA Negative Negative 08/01/2023 11:59 AM [facility] Glucose UA 3+(A) Negative 08/01/2023 11:59 AM [facility] Ketone UA 2+(A) Negative 08/01/2023 11:59 AM [facility] Bilirubin UA Negative Negative 08/01/2023 11:59 AM [facility] Blood UA 2+(A) Negative 08/01/2023 11:59 AM [facility] Nitrite UA Negative Negative 08/01/2023 11:59 AM [facility] Leukocyte Esterase Negative Negative 08/01/2023 11:59 AM [facility] Urobilinogen UA Negative Negative mg/dL 08/01/2023 11:59 AM CDT [facility] RBC UA 0-2 None Seen, 0-2, 3-5 /HPF 08/01/2023 11:59 AM CDT [facility] WBC UA 0-5 None Seen, 0-5 /HPF 08/01/2023 11:59 AM CDT [facility] Bacteria UA Trace(A) None /HPF 08/01/2023 11:59 AM CDT [facility] Squamous Epithelial Cells UA 0-2 None Seen, 0-2, 3-5 /HPF 08/01/2023 11:59 AM CDT [facility] Urine URINE SPECIMEN OBTAINED BY CLEAN CATCH PROCEDURE / Unknown Collection / Unknown 08/01/2023 11:46 AM CDT 08/01/2023 11:52 AM CDT Narrative [facility] - 08/01/2023 11:59 AM CDT Sharan Campos MD LAB - URINALYSIS ORD ERABLES Performing Organization Address City/[facility]/ZIP Co de Phone Number [facility] [address] [place] [address], [facility] [phone] * (ABNORMAL) GLUCOSE - POINT OF CARE (08/01/2023 11:44 AM CDT) Glucose WB/POC 332(H) 70 - 106 mg/dL 08/01/2023 11:48 AM CDT [facility] Specimen Type Cap Fingerstick 2022 11:48 AM CDT [facility] Blood BLOOD SPECIMEN / Unknown 08/01/2023 11:44 AM CDT 08/01/2023 11:48 AM CDT Breana Olivas MD LAB - POINT OF CARE ORDERABLES [facility] [place] [address] * Critical Care (08/01/2023 10:30 AM CDT) [...] BLOOD GAS+COOX+LYTES+METAB VIRY POCT (08/01/2023 10:21 AM T) pH Venous 7.16(LL) 7.32 - 7.42 pH 08/01/2023 10:27 AM [facility] pO2 Venous 54(H) 35 - 40 mmHg 08/01/2023 10:27 AM [facility] pCO2 Venous 35(L) 40 - 50 mmHg 08/01/2023 10:27 AM [facility] HCO3 Venous 12.5(L) 20 - 30 mmol/L 08/01/2023 10:27 AM [facility] Base Excess Venous -15.2(L) -2.0 - 2.0 mmol/L 08/01/2023 10:27 AM [facility] Oxyhemoglobin Venous 74.8 % 07/2023 10:27 AM [facility] Deoxyhemoglobin (HHB) Venous % 23.0 % 08/01/2023 10:27 AM [facility] Methemoglobin 1.3 0.0 - 2.0 % 08/01/2023 10:27 AM [facility] Carboxyhemoglobin 1.0 0.0 - 2.0 % 2022 10:27 AM [facility] Comment:Carboxyhemoglobin No rmal Concentration: Non-smokers: 0-2%; Smokers: 0- 9%; Toxic: >20% O2 Content Venous 15.3 Interpret within clinical context ml/dL 08/01/2023 10:27 AM [facility] Hemoglobin by COOX 14.6 12.0 - 16.0 g/dL 08/01/2023 10:27 AM [facility] O2 Saturation Venous 77 >=70 % 07/2023 10:27 AM [facility] Sodium Whole Blood 134(L) 135 - 145 mmol/L 08/01/2023 10:27 AM [facility] Potassium Whole Blood 5.2 3.5 - 5.5 mmol/L 08/01/2023 10:27 AM [facility] Chloride WB 98 78 - 107 mmol/L 08/01/2023 10:27 AM [facility] Calcium Ionized 1.28 mmol/L 10:27 AM [facility] Ionized Calcium pH Adjusted 1.16(L) 1.19 - 1.34 mmol/L 08/01/2023 10:27 AM [facility] Anion Gap (AG) Arterial 24(H) 6 - 16 mmol/L 08/01/2023 10:27 AM [facility] Glucose WB 402(H) 70 - 115 mg/dL 08/01/2023 10:27 AM [facility] Lactic Acid Whole Blood 4.7(HH) <=2.0 mmol/L 08/01/2023 10:27 AM [facility] Notified Who DR. Carmen CAMPOS MD 08/01/2023 10:27 AM [facility] Notified By [id number] 08/01/2023 10:27 AM [facility] Notification Time 1027 023 10:27 AM [facility] Read Back and Verified Y 08/01/2023 10:27 AM [facility] Blood BLOOD SPECIMEN / Unknown Venipuncture / Unknown 08/01/2023 10:21 AM T 08/01/2023 10:24 AM [facility] Sharan Campos MD LAB - BLOOD GASES OR DERABLES Performing Organization Address City/State/ZIP Co nc Phone Number [facility] [place] [address] * (ABNORMAL) HYDROXYBUTYRATE BETA (08/01/2023 10:21 AM CDT) Pathologist [facility] Beta-Hydroxybu tyrate 5.31(H) <0.50 mmol/L 08/01/2023 11:00 AM [facility] Comment:Result obtained by charu denis. Blood BLOOD SPECIMEN / Unknown Venipuncture / Unknown 08/01/2023 10:21 AM CDT 08/01/2023 10:31 AM CDT Sharan Campos MD LAB - CHEMISTRY MANJULA ZHAO [facility] Organization Address City/State/ZIP Co de Phone Number [facility] [address] [place] [address], [place] [phone] * (ABNORMAL) COMPREHENSIVE METABOLIC PANEL (08/01/2023 10:21 AM CDT) [facility] BUN 22 7 - 26 mg/dL 08/01/2023 11:00 AM [facility] Creatinine 0.65 0.56 - 0.96 mg/dL 08/01/2023 11:00 AM [facility] Sodium 132(L) 136 - 145 mmol/L 08/01/2023 11:00 AM [facility] Potassium 4.9(H) 3.5 - 4.5 mmol/L 08/01/2023 11:00 AM [facility] Chloride 98 98 - 107 mmol/L 08/01/2023 11:00 AM [facility] CO2 11(L) 22 - 29 mmol/L 08/01/2023 11:00 AM [facility] Glucose 362(H) 70 - 115 mg/dL 08/01/2023 [...] CDT Sharan Campos MD LAB - CHEMISTRY MANJULA ZHAO Performing Organization Address City/State/[facility] Co de Phone Number [facility] [address] [place] [address], [facility] [phone] * (ABNORMAL) GLUCOSE - POINT OF CARE (08/01/2023 9:47 AM CDT) Glucose WB/POC 309(H) 70 - 106 mg/dL 08/01/2023 9:51 AM T [facility] Specimen Type Cap Fingerstick 2022 9:51 AM T [facility] Blood BLOOD SPECIMEN / Unknown 08/01/2023 9:47 AM CDT 08/01/2023 9:51 AM CDT Provider Unknown LAB - POINT OF CARE ORDERABLES [facility] Dany Os[facility] [place] [address] documented in this encounter Visit Diagnoses Diagnosis Hyperglycemia Other abnormal glucose Diabetic ketoacidosis without coma associated with type 1 diabetes mellitus (HCC) Hyperglycemia Other abnormal glucose Diabetic ketoacidosis without coma associated with type 1 diabetes mellitus (HCC) * Assessment & Plan Note - Cherise Phillips MD - 08/01/2023 12:37 PM CDT Associated Problem(s): Diabetic ketoacidosis without coma associated with type 1 diabetes mellitus (HCC) (Resolved 08/02/2023) Assessment: 17 years old with ten-year history of type one diabetes presenting to [facility] with polyuria, polydipsia, nausea, vomiting, in DKA [...] closes - Q1 hour glucose checks ?? documented in this encounter Administered Medications Inactive Administered Medications - up to 3 most recent administrations Medication Order MAR Action Action Date Dose Rate Site 0.45% NaCl with potassium acetate 20 mEq/L, potassium phosphate 20 mEq/L INFUSION at 1 mL/hr, Intravenous, CONTINUOUS, Starting on 08/01/23 at 1115, Until 08/01/23 at 2134, FIRST BAG Current Rate 08/01/2023 7:43 PM CDT 1 mL/ hr Rate Change 08/01/2023 7:18 PM CDT 1 mL/hr Rate Change 08/01/2023 5:07 PM CDT 92 mL/hr 0.9% NaCl IV BOLUS 1,000 mL 1,000 mL (rounded from 1,006 mL = 20 mL/kg ? 50.3 kg), Intravenous, BOLUS IV, 1 dose, On 08/01/23 at 1015 $ New Bag/Syringe 08/01/2023 10:29 AM CDT 1,000 mL 999 mL/hr acetaminophen (Tylenol) tablet 650 mg 650 mg, Oral, NOW, 1 dose, On 08/01/23 at 1100, Patient preference for lesser PRN pain meds may be honored when the patient requests a less strong medication, a lower dose, or a less intrusive route of administration when the lesser drug, dose and route have been ordered for the patient. This patient request must be documented in the MAR. $ Given 08/01/2023 11:48 AM CDT 650 mg dextrose 10 % with potassium acetate 20 mEq/L, potassium phosphate 20 mEq/L, NaCl (4mEq/mL) (Conc.Sodium Chloride) 0.45 % INFUSION at 185 mL/hr, Intravenous, CONTINUOUS, Starting on 08/01/23 at 1115, Until 08/01/23 at 4, SECOND BAG Current Rate 08/01/2023 7:43 PM CDT 185 mL/hr Rate Change 08/01/2023 7:18 PM CDT 185 mL/hr Rate Change 08/01/2023 5:07 PM CDT 92 mL/hr insulin glargine (Lantus) vial 18 Units 18 Units, Subcutaneous, ONCE, 1 dose, On 08/01/23 at 1945, Obtain a current Blood Glucose if necessary. . WASTE DISPOSAL INSTRUCTIONS: Black Bin Disposal required. $ Given 08/01/2023 7:47 PM CDT 18 Units Abdominal Tissue insulin glargine (Lantus) vial 18 Units 18 Units, Subcutaneous, AT BEDTIME, First dose on 08/02/23 at 2030, Until Discontinued, Obtain a current Blood Glucose if necessary. . WASTE DISPOSAL INSTRUCTIONS: Black Bin Disposal required. insulin lispro (HumaLOG;ADMelog) 100 UNIT/ML pen 1-10 Units 1-10 Units, Subcutaneous, 4 TIMES DAILY PRN, breakfast, lunch, dinner and snack, Starting on 08/01/23 at 1947, Until 08/02/23 at 1127, Obtain current Blood Glucose if necessary. May be given immediately before meal, during meal, or immediately after meal is eaten. Meal must be present before administration. Carb correction: 1 unit:15 grams for breakfast and lunch 1 unit:18 grams for dinner and nighttime snack $ Given 08/02/2023 10:14 AM CDT 3 Units Left leg $ Given 08/02/2023 12:17 AM CDT 3 Units A bdominal Tissue $ Given 08/01/2023 9:26 PM CDT 4 Units Ri ght Leg insulin lispro (HumaLOG;ADMelog) 100 UNIT/ML pen 1-10 Units 1-10 Units, Subcutaneous, 3 TIMES DAILY WITH MEALS, First dose (after last modification) on 08/02/23 at 0030, Until Discontinued, Obtain current Blood Glucose if necessary. May be given immediately before meal, during meal, or immediately after meal is eaten. Meal must be present before administration. Correction: 1 Unit: 40/150 blood glucose Correction dose with Humalog - 1 unit for every 40 above 150: Blood sugar 151-190 - give 1 unit Blood sugar 191-229 - give 2 units Blood sugar 230-279 - give 3 units Blood sugar 280-319 - give 4 units Blood sugar 320-359 - give 5 units Blood sugar >360 give 6 units. $ Given 08/02/2023 10:13 AM CDT 1 Units Left leg $ Given 08/02/2023 12:16 AM CDT 5 Units A bdominal Tissue insulin regular human (MyXRedlin) 100 units in 100 mL premix infusion 0.1 Units/kg/hr ? 50.3 kg (5.03 mL/hr), Intravenous, CONTINUOUS, Starting on 08/01/23 at 1115, Until 08/01/23 at 2134, Flush 20 ml of infusion through IV tubing before infusing. . WASTE DISPOSAL INSTRUCTIONS: Black Bin Disposal required. Current Rate 08/01/2023 7:43 PM CDT 0.1 Units/kg/hr 5.03 mL/hr Current Rate 08/01/2023 12:55 PM CDT 0.1 Units/kg/hr 5.03 mL/hr $ New Bag/Syringe 08/01/2023 11:36 AM CDT 0.1 Units/kg/hr 5.03 mL/hr lidocaine buffered 1-8.4 % injection 0.2 mL 0.2 mL, Infiltration, PRN, Pre-Procedure, Starting on 08/01/23 at 1001, Until 08/01/23 at 1200, Use J-Tip device (needleless device) to administer. Notify physician if unsuccessful, may repeat x 1. Contraindications/Precautions with buffered lidocaine (J-Tip) use: non-intact skin, bruising, infection or open area at the site of injection, patient receiving chemotherapy, port access, thrombocytopenia with a known platelet count </= 20,000, precautions should be taken for patients receiving blood thinners or patients with blood disorders. $ Given 08/01/2023 10:29 AM CDT 0.2 mL ondansetron (Zofran) injection 4 mg 4 mg, Intravenous, NOW, 1 dose, On 08/01/23 at 1015, Administer over 2 to 5 minutes. $ Given 08/01/2023 10:28 AM CDT 4 mg documented in this encounter Active and Recently Administered Medications Times are shown in CDT. Scheduled Medication Order 07/31/2023 08/01/2023 08/02/2023 0.9% NaCl IV BOLUS 1,000 mL (COMPLETED) 1,000 mL (rounded from 1,006 mL = 20 mL/kg ? 50.3 kg), Intravenous, BOLUS IV, 1 dose, On 08/01/23 at 1015 1029 ($ New Bag/Syringe - Provider: Suzi Acuna RN) acetaminophen (Tylenol) tablet 650 mg (COMPLETED) 650 mg, Oral, NOW, 1 dose, On 08/01/23 at 1100, Patient preference for lesser PRN pain meds may be honored when the patient requests a less strong medication, a lower dose, or a less intrusive route of administration when the lesser drug, dose and route have been ordered for the patient. This patient request must be documented in the MAR. 1148 ($ Given - Provider: Suzi Acuna, RN) insulin glargine (Lantus) vial 18 Units (COMPLETED) 18 Units, Subcutaneous, ONCE, 1 dose, On 08/01/23 at 1945, Obtain a current Blood Glucose if necessary. . WASTE DISPOSAL INSTRUCTIONS: Black Bin Disposal required. 1946 ($ Given - Provider: Doris Sawyer, RAFA) insulin glargine (Lantus) vial 18 Units 18 Units, Subcutaneous, AT BEDTIME, First dose on 08/02/23 at 2030, Until Discontinued, Obtain a current Blood Glucose if necessary. . WASTE DISPOSAL INSTRUCTIONS: Black Bin Disposal required. insulin lispro (HumaLOG;ADMelog) 100 UNIT/ML pen 1-10 Units 1-10 Units, Subcutaneous, 3 TIMES DAILY WITH MEALS, First dose (after last modification) on 08/02/23 at 0030, Until Discontinued, Obtain current Blood Glucose if necessary. May be given immediately before meal, during meal, or immediately after meal is eaten. Meal must be present before administration. Correction: 1 Unit: 40/150 blood glucose Correction dose with Humalog - 1 unit for every 40 above 150: Blood sugar 151-190 - give 1 unit Blood sugar 191-229 - give 2 units Blood sugar 230-279 - give 3 units Blood sugar 280-319 - give 4 units Blood sugar 320-359 - give 5 units Blood sugar >360 give 6 units. 0016 ($ Given - Provider: Thang Chandler, Graduate Nurse)1013 ($ Given - Provider: Lourdes Cruz, RAFA) ondansetron (Zofran) injection 4 mg (COMPLETED) 4 mg, Intravenous, NOW, 1 dose, On 08/01/23 at 1015, Administer over 2 to 5 minutes. 1028 ($ Given - Provider: Suzi Acuna, RN) Continuous Medication Order 07/31/2023 08/01/2023 08/02/2023 0.45% NaCl with potassium acetate 20 mEq/L, potassium phosphate 20 mEq/L INFUSION (CANCELED) at 1 mL/hr, Intravenous, CONTINUOUS, Starting on 08/01/23 at 1115, Until 08/01/23 at 2134, FIRST BAG 1145 ($ New Bag/Syringe - Provider: Suzi Acuna RN)1253 (Current Rate - Provider: Doris Sawyer RN)1305 (Rate Change - Provider: Doris Sawyer RN)1615 (Rate Change - Provider: Doris Sawyer RN)1707 (Rate Change - Provider: Doris Sawyer RN)1917 (Rate Change - Provider: Doris Sawyer RN)1942 (Current Rate - Provider: Doris Sawyer RN) dextrose 10 % with potassium acetate 20 mEq/L, potassium phosphate 20 mEq/L, NaCl (4mEq/mL) (Conc.Sodium Chloride) 0.45 % INFUSION (CANCELED) at 185 mL/hr, Intravenous, CONTINUOUS, Starting on 08/01/23 at 1115, Until 08/01/23 at 2134, SECOND BAG 1151 ($ New Bag/Syringe - Provider: Suzi Acuna RN)1255 (Current Rate - Provider: Doris Sawyer RN)1304 (Rate Change - Provider: Doris Sawyer RN)1615 (Rate Change - Provider: Doris Sawyer RN)170 (Rate Change - Provider: Doris Sawyer RN)1917 (Rate Change - Provider: Doris Sawyer RN)1942 (Current Rate - Provider: Doris Sawyer RN) insulin regular human (MyXRedlin) 100 units in 100 mL premix infusion (CANCELED) 0.1 Units/kg/hr ? 50.3 kg (5.03 mL/hr), Intravenous, CONTINUOUS, Starting on 08/01/23 at 1115, Until 08/01/23 at 2134, Flush 20 ml of infusion through IV tubing before infusing. . WASTE DISPOSAL INSTRUCTIONS: Black Bin Disposal required. 1136 ($ New Bag/Syringe - Provider: Suzi Acuna RN)1255 (Current Rate - Provider: Doris Sawyer RN)1942 (Current Rate - Provider: Doris Sawyer RN) PRN Medication Order 07/31/2023 08/01/2023 08/02/2023 insulin lispro (HumaLOG;ADMelog) 100 UNIT/ML pen 1-10 Units 1-10 Units, Subcutaneous, 4 TIMES DAILY PRN, breakfast, lunch, dinner and snack, Starting on 08/01/23 at 1947, Until 08/02/23 at 1127, Obtain current Blood Glucose if necessary. May be given immediately before meal, during meal, or immediately after meal is eaten. Meal must be present before administration. Carb correction: 1 unit:15 grams for breakfast and lunch 1 unit:18 grams for dinner and nighttime snack 2126 ($ Given - Provider: Thang Chandler, Graduate Nurse) 0017 ($ Given - Provider: Thang Chandler, Graduate Nurse)1014 ($ Given - Provider: Lourdes Cruz, RAFA) lidocaine buffered 1-8.4 % injection 0.2 mL () 0.2 mL, Infiltration, PRN, Pre-Procedure, Starting on 08/01/23 at 1001, Until 08/01/23 at 1200, Use J-Tip device (needleless device) to administer. Notify physician if unsuccessful, may repeat x 1. Contraindications/Precauti ons with buffered lidocaine (J-Tip) use: non-intact skin, bruising, infection or open area at the site of injection, patient receiving chemotherapy, port access, thrombocytopenia with a known platelet count </= 20,000, precautions should be taken for patients receiving blood thinners or patients with blood disorders. 1029 ($ Given - Provider: Suzi Acuna, RAFA) documented in this encounter Care Teams Card Maker Relationship Specialty Start Date End Date Alvarez Prabhakar MD [address] [place] [id number] PCP - General 12/12/11 documented as of this encounter
--- OUTSIDE RECORDS SUMMARY | 2024-11-22 05:18 | XMS_ITS | Encounter Summary ---
Author Organization [facility] Address [address] [place] [address] Care Team Providers Care Sculpture Instructor Name Role Phone Alvarez Prabhakar MD Primary Care Provider [phone] Reason for Visit * Reason Comments Follow-up Encounter Details Date Type Department Care Team (Latest Contact Info) Description 05/18/2023 8:30 AM CDT - 05/18/2023 11:59 PM CDT Hospital Encounter [facility] Pediatrics - Diabetes [address] [address] Breana Olivas MD Discharge Disposition: Home or [...] Sign Reading Time Taken Comments Blood Pressure 110/64 05/18/2023 8:54 AM CDT Pulse - - Temperature - - Respiratory Rate - - Oxygen Saturation - - Inhaled Oxygen Concentration - - Weight 53.3 kg (117 lb 8.1 oz) 05/18/2023 8:54 A M CDT Height 161 cm (5' 3.39 ) 05/18/2023 8:54 AM CDT Body Mass Index 20.56 05/18/2023 8:54 AM CDT Body Mass Index Percentile 38.28% 05/18/2023 8:5 4 AM CDT Growth Chart: [facility] (Girls, 2- 20 Years) documented [...] 12/10/2022 documented as of this encounter Discharge Instructions * Patient Instructions* Braena Olivas MD - 05/18/2023 9:37 AM CDT Please resume wearing your Dexcom, especially important with your recent episode when you needed Baqsimi. Call for a Dexcom Clarity review in 1 week. Lower your dinner and bedtime snack doses by 1/4, so 1 Unit per 18 grams, based on your report of bedtime hypoglycemia. Eat a 15 gram snack without insulin (or subtract 15 grams from what you dose for a bedtime snack) for bedtime BS's <100. Our nurses will do a Teen Transition visit by phone at ~9 AM this Thursday. Pick out an adult real estate account executive before your last visit in 4 months. documented in this encounter Medications at Time [...] Kit 0 08/18/2012 Blood Glucose Monitoring Suppl ([employer] VERIO IQ SYSTEM) w/Device KIT Use 1 [...] times/day. 200 Each 11 08/04/2016 05/22/2023 acetone,urine, (Ketostix) stripIndications:Type 1 diabetes mellitus without complication (HCC) Use as needed (use when blood sugar is greater than 250 or when ill. ) 50 strip 04/23/2023 08/03/2023 Baqsimi One Pack 3 MG/DOSE POWD ADMINISTER 3 MG INTO THE NOSE FOR SEVERE LOW BLOOD SUGAR 2 Each 05/08/2023 06/25/2023 Continuous Blood Gluc Synchronous Motor Assembler (Dexcom G6 Synchronous Motor Assembler) DEVIIndications:Type 1 diabetes mellitus without complication (HCC) [...] Progress Notes * Breana Olivas MD - 05/18/2023 9:02 AM CDT Images from the original note were not included. Anaid Dimas and her mother were seen in our Pediatric Endocrinology offices on 05/18/23. She is an 17 year old teen who is followed for type 1 diabetes diagnosed in 08/04. Interval History: Anaid was admitted here in moderate D[facility] Her grandmother treated unresponsiveness in ]bed in the morning with Baqsimi after calling 911. She has otherwise been healthy since last seen in October. Vaccinations: Covid Vaccination: Yes Annual influenza vaccination: No Diabetes Therapies: Lantus 18 Units at 10 PM. Humalog 1 Unit: 15 grams; correction 1 Unit: 40/150. Total daily insulin up to 56 Units (1.1 U/kg/d). Injections given in the extremities and [...] for school and one for home. ??? Baqsimi One Pack 3 MG/DOSE POWD, ADMINISTER 3 MG INTO THE NOSE FOR SEVERE LOW BLOOD SUGAR ??? Blood Glucose Monitoring Suppl (ACCU-CHEK DRAKE [...] Does not apply, q 90 days ??? glucagon (GLUCAGON EMERGENCY) injection, Inject 1 mg into muscle as directed for severe low blood sugar reaction. ??? injection device-insulin (NOVOPEN ECHO) device, Use for insulin delivery. ??? insulin degludec (Tresiba) 100 UNIT/ML pen, Inject 14 units daily ??? insulin lispro (HumaLOG;ADMelog) 100 UNIT/ML pen, [...] the time. Anaid Dimas last saw our admin dir in June 2022. Sports/Physical Exercise: Little other than walking Blood Glucose Monitoring: Anaid Dimas's glucose monitoring is reportedly done at least 6 x daily with One Touch Verio meter. The reported target range is 80-150. No blood sugars were available for review. By report: Breakfast Lunch Dinner Bedtime Overnight Other Range Mean Comments Usually >150 Often <100 Hypoglycemia: Frequency/Treatment: ~2 times per week. Anaid recognizes her hypoglycemia when herblood sugar is <72, characterized by shaking and hunger. Treatment is adequate (juice or fruit) and an emergency IM glucagon kit is available. Urine Ketone Monitoring: Knows when to check. Review of Systems: General: low energy, good appetite and sleep Skin: transient hives on right underarm Eyes: normal vision; last dilated eye exam in Nov 2020 ENT: brushes teeth 2 x daily, sees dentist Respiratory: negative GI: normal BM every 2 days : nocturia some nights, h/o enuresis Neurologic: no h/o seizure(s) Psychiatric: rarely feels depressed despite PHQ-9 depression score of 10 today Endocrine: regular menses; getting a Nexplanon All other systems reviewed and were negative. Past Medical History: I have reviewed the patient's medical, surgical, social and family history and the updates are: Attending [employer]. Living with mother, grandmother, and little sister. Physical Examination: BP 110/64 Ht 1.61 m (5' 3.39 ) Wt 53.3 kg (117 lb 8.1 oz) LMP (LMP Unknown) BMI 20.56 kg/m?? 34 %ile (Z= -0.42) based on CDC (Girls, 2-20 Years) cpxxvb-dfm-[id number] data using vitals from 05/18/2023. 37 %ile (Z= -0.34) based on CDC (Girls, 2-20 Years) Lzetlxu-rgk-ruo data based on Stature recordedon 05/18/2023. Body mass index is 20.56 kg/m??. 38 %ile (Z= -0.30) based on [facility] (Girls, 2-20 Years) BMI-for-age based on BMI available as of 05/18/2023. General: Well-appearing, WDWN, pleasant, youthful teen. Skin/Hair/Nails: Warm and dry. Insulin lipohypertrophy on both arms. No observable rashes. Eyes: Sclerae clear, PERRLA, EOMs intact; no abnormal fundoscopic findings. Dentition: Good oral hygiene. Neck: Supple. Thyroid not enlarged. Chest: Symmetric. Lungs clear to auscultation, unlabored breathing. CV system unremarkable with regular heart rate and rhythm, normal S1/S2, no murmurs, rubs, or gallops. Abdomen: Soft, non-tender, without organ enlargement or masses. Pubertal maturation: Not examined. Extremities: No cyanosis or edema. Neurologic system: Non-focal. DTRs 2+ and equal. ID Tag Status: Wearing Vital Systemset Laboratory Data: Hospital Encounter on 05/18/23 MICROALB/CREAT RATIO URINE RANDOM PANEL Result Value Ref Range Albumin Random Urine 10.2 Not Established ug/mL Creatinine Urine 188 Not Established mg/dL Urine Albumin/Creatinine Ratio 5 <30 mg/g HEMOGLOBIN A1C - POCT INTERFACED Result Value Ref Range Hemoglobin A1C POCT 7.0 (H) <5.7 % Estimated Average Glucose 154 mg/dL Assessment: Type 1 diabetes of 10 years' duration under suprisingly good control with HbA1C down from 9.7 to 7.0% since her November DKA admission Severe morning hypoglycemia recently without a bedtime check the evening before No known diabetes complications or autoimmune/metabolic co-morbidities Psychological health is improved by report despite her PHQ-9 score of 10 today Family management/support seems average Management Plan: Strongly encouraged resumption of Dexcom use, refilling her transmitters. Suggested changes in insulin doses: 1. Lower the dinner and bedtime snack doses by 1/4, so 1 Unit per 18 grams, based on the report of bedtime hypoglycemia. 2. Eat a 15 gram snack without insulin (or subtract 15 grams from dosing for a bedtime snack) for bedtime BS's <100. Injection site rotation was reviewed. Screening labs (TSH and TTG IgA) were ordered but not drawn. Schedule a dilated eye exam. Teen transition visit will be done by phone with our nurses this Thursday. The college booklet and a list of adult endocrinologists was provided. Return for a final visit in 4 months. I spent 40+ minutes on this visit. Breana Olivas MD [phone] CC: Alvarez Prabhakar MD [address] [facility] [id number] Date: 05/18/2023 9:02 AM documented in this encounter Plan of Treatment Not on file documented as of this encounter Procedures Procedure Name Priority Date/Time Associated Diagnosis Comments MICROALB/CREAT RATIO URINE RANDOM PANEL Routine 05/18/2023 9:36 AM CDT Type 1 diabetes mellitus without complication (HCC) HEMOGLOBIN A1C - POCT INTERFACED Routine 05/18/2023 8:53 AM CDT documented in this encounter Results * TISSUE TRANSGLUTAMINASE AB IGA (06/03/2023 1:27 PM CDT) Tissue Transglutaminase (tTG) Ab, IgA <2 0 - 3 U/mL 06/05/2023 7:21 AM CDT [employer] ([facility]) Comment: INTERPRETIVE INFORMATION: Tissue Transglutaminase (tTG) [...] positive predictive value for disease. Performed By: [employer] [address] [place] [id number] Receiving Operator: Adam Moon MD, PhD Blood BLOOD SPECIMEN / Unknown Lab Venipuncture / Unknown 06/03/2023 1:27 PM CDT 06/03/2023 1:31 PM CDT Breana Olivas MD LAB - SEROLOGY ORDER [facility] [address] [address], [facility] * MICROALB/CREAT RATIO URINE RANDOM PANEL (05/18/2023 9:36 AM CDT) Albumin Random Urine 10.2 Not Established ug/mL 05/18/2023 10:51 AM CDT [facility] Creatinine Urine 188 Not Established mg/dL 05/18/2023 10:51 AM CDT [facility] Urine Albumin/Creati nine Ratio 5 <30 mg/g 05/18/2023 10:51 AM CDT [facility] Urine URINE SPECIMEN OBTAINED BY CLEAN CATCH PROCEDURE / Unknown Collection / Unknown 05/18/2023 9:36 AM CDT 05/18/2023 10:28 AM CDT Breana Olivas MD LAB - URINE CHEMISTR Y ORDERABLES [facility] [address] [place] [address], [facility] [phone] * (ABNORMAL) HEMOGLOBIN A1C - POCT INTERFACED (05/18/2023 8:53 AM CDT) Hemoglobin A1C POCT 7.0(H) <5.7 % 05/18/2023 9:08 AM CDT [facility] Estimated Average Glucose 154 mg/dL 05/18/2023 9:08 AM CDT [facility] Blood BLOOD SPECIMEN / Unknown 05/18/2023 8:53 AM CDT 05/18/2023 9:08 AM CDT Narrative [facility] - 05/18/2023 9:08 AM CDT HbA1c Interpretation: Normal: < 5.7% [...] POINT OF CARE ORDERABLES Performing Organization Address City/State/[facility] Co de Phone Number [facility] [address] [place] [address] documented in this encounter Visit Diagnoses Diagnosis Type 1 diabetes mellitus without complication (HCC) Type I (juvenile type) diabetes mellitus without mention of complication, not stated as uncontrolled documented in this encounter Care Teams Sculpture Instructor Relationship Specialty Start Date End Date Alvarez Prabhakar MD [address] [place] [address] PCP - General 12/12/11 documented as of this encounter
--- OUTSIDE RECORDS SUMMARY | 2024-11-22 05:18 | XMS_ITS | Encounter Summary ---
Author Organization [facility] Address [address] [facility] [place] [address] Care Team Providers Care Director Of Business Services Name Role Phone Alvarez Prabhakar MD Primary Care Provider Encounter Details Date Type Department Care Team (Late st Contact Info) Description 05/15/2023 Orders Only [facility] Pediatrics - Diabetes [id number] [place] [address] Breana Olivas MD Type 1 diabetes [...] r Schedule HEMOGLOBIN A1C - POCT (IP) ALEXANDRA Point of Care Testing Routine Type 1 diabetes mellitus without complication (HCC) 1 Occurrences starting 05/15/2023 until 05/09/2024 documented as of this encounter Results * TSH REFLEX FREE T4 (06/03/2023 1:27 PM CDT) TSH 0.769 0.350 - 4.940 uIU/mL 06/03/2023 2:22 PM CDT [facility] Blood BLOOD SPECIMEN / Unknown Lab Venipuncture / Unknown 06/03/2023 1:27 PM CDT 06/03/2023 1:50 PM CDT Breana Olivas MD LAB - CHEMISTRY ORDE [place] [address] [address], [place] [phone] * MICROALB/CREAT RATIO URINE RANDOM PANEL (05/18/2023 9:36 AM CDT) Albumin Random Urine 10.2 Not Established ug/mL 05/18/2023 10:51 AM CDT [facility] Creatinine Urine 188 Not Established mg/dL 05/18/2023 10:51 AM CDT [facility] Urine Albumin/Creati nine Ratio 5 <30 mg/g 05/18/2023 10:51 AM CDT [facility] Urine URINE SPECIMEN OBTAINED BY CLEAN CATCH PROCEDURE / Unknown Collection / Unknown 05/18/2023 9:36 AM CDT 05/18/2023 10:28 AM CDT Breana Olivas MD LAB - URINE CHEMISTR Y ORDERABLES Performing Organization Address City/[facility]/ZIP Co de Phone Number [address] [address], [place] [phone] documented in this encounter Visit Diagnoses Diagnosis Type 1 diabetes mellitus without complication (HCC)- Primary Type I (juvenile type) diabetes mellitus without mention of complication, not stated as uncontrolled documented in this encounter Care Teams Director Of Business Services Relationship Specialty Start Date End Date Alvarez Prabhakar MD [address] [place] [address] PCP - General 12/12/11 documented as of this encounter
--- OUTSIDE RECORDS SUMMARY | 2024-11-22 05:18 | XMS_ITS | Encounter Summary ---
Author Organization [facility] Address [address] [facility] [place] [address] Care Team Providers Care Product Planner Name Role Phone Alvarez Prabhakar MD Primary Care Provider [phone] Reason for Visit * Reason Comments Refill Request Encounter Details Date Type Department Care Team (Late st Contact Info) Description 11/11/2024 Refill [facility] Pediatrics - Diabetes [address] [address] Brendan Zafar MD [address] [place] [phone] Refill Request Social History Tobacco Use Types [...] regarding referral to Dr. Jack Fuentes with [facility] medical group in [facility]. When called number in chart phone rings and no voicemail. When called mother's number voicemail is full. Will assume she has transferred care. T PRODUCTION ASSOCIATE documented in this encounter Plan of Treatment Not on file documented as of this encounter Visit Diagnoses Diagnosis Type 1 diabetes mellitus without complication (HCC) Type I (juvenile type) diabetes mellitus without mention of complication, not stated as uncontrolled documented in this encounter Care Teams Product Planner Relationship Specialty Start Date End Date Alvarez Prabhakar MD [address] [place] [address] PCP - General 12/12/11 documented as of this encounter
--- OUTSIDE RECORDS SUMMARY | 2024-11-22 05:18 | XMS_ITS | Encounter Summary ---
Author Organization [facility] Address [address] [facility] [place] [address] Care Team Providers Care Etl Programmer Name Role Phone Alvarez Prabhakar MD Primary Care Provider [phone] Reason for Visit * Reason Onset Date Comments MEDICATION REFILL 12/11/2022 Encounter Details Date Type Department Care Team (Late st Contact Info) Description 12/11/2022 Refill [facility] Pediatrics - Diabetes [address] [address] Isis Munguia MD [address] [place] [address] MEDICATION REFILL Social History Tobacco Use Types [...] encounter Miscellaneous Notes * Telephone Encounter - Isis Munguia MD - 12/11/2022 2:46 PM REMOTE SENSING TECHNICIAN Prescription for Humalog filed with 3 refills. Patient last seen in October and does not have follow up in place. Please contact patient (as is 17) to set up follow up with Bree Moyer or Dr Olivas in January. TE SENSING TECHNICIAN documented in this encounter Plan of Treatment Not on file documented as of this encounter Visit Diagnoses Diagnosis Type 1 diabetes mellitus without complication (HCC) Type I (juvenile type) diabetes mellitus without mention of complication, not stated as uncontrolled documented in this encounter Care Teams Etl Programmer Relationship Specialty Start Date End Date Alvarez Prabhakar MD [address] [place] [phone] PCP - General 12/12/11 documented as of this encounter
--- OUTSIDE RECORDS SUMMARY | 2024-11-22 05:18 | XMS_ITS | Encounter Summary ---
Author Organization [facility] Address [address] [place] [address] Care Team Providers Care Extractor Filler Name Role Phone Alvarez Prabhakar MD Primary Care Provider [phone] Reason for Referral * Consultation (Routine) - Authorized Specialty Diagnoses / Procedures Referred By Fan t Referred To Contact Diagnoses Type 1 diabetes mellitus without complication (HCC) Jeanne Wahl DO [address] [place] [address] [place] [address] [place] [address] Referral ID Status Reason Start Date Expiration Date Visits Requested Visits Authorized [id number] Authorized Specialty Services Required 12/04/2023 12/03/2024 1 1 Scheduling Instructions Transition of care for T1DM CEMENTER Encounter Details Date Type Department Care Team (Late st Contact Info) Description 12/04/2023 Orders Only [facility] Pediatrics - Diabetes Mgmt [address] [place] [address] Jeanne Wahl DO [address] [place] [address] Type 1 diabetes mellitus without complication (HCC) [...] of this encounter Plan of Treatment Scheduled Referrals Name Type Priority Associated Diagnoses Order Schedule Referral to Endocrinology Outpatient Referral Routine Type 1 diabetes mellitus without complication (HCC) 1 Occurrences starting 12/04/2023 until 12/04/2024 documented as of this encounter Visit Diagnoses Diagnosis Type 1 diabetes mellitus without complication (HCC)- Primary Type I (juvenile type) diabetes mellitus without mention of complication, not stated as uncontrolled documented in this encounter Care Teams Extractor Filler Relationship Specialty Start Date End Date Alvarez Prabhakar MD [address] [place] [phone] PCP - General 12/12/11 documented as of this encounter
--- OUTSIDE RECORDS SUMMARY | 2024-11-22 05:18 | XMS_ITS | Encounter Summary ---
Author Organization [facility] Address [address] [facility] [place] [address] Care Team Providers Care Internet Marketing Coordinator Name Role Phone Alvarez Prabhakar MD Primary Care Provider [phone] Encounter Details Date Type Department Care Team (Latest Contact Info) Description 08/31/2023 Travel Social History Tobacco Use Types Packs/Day [...] on filedocumented in this encounter Care Teams Internet Marketing Coordinator Relationship Specialty Start Date End Date Alvarez Prabhakar MD [address] [place] [phone] PCP - General 12/12/11 documented as of this encounter
--- OUTSIDE RECORDS SUMMARY | 2024-11-22 05:18 | XMS_ITS | Encounter Summary ---
Author Organization [facility] Address [address] [facility] [place] [address] Care Team Providers Care Data Visualization Developer Name Role Phone Alvarez Prabhakar MD Primary Care Provider [phone] Encounter Details Date Type Department Care Team (Late st Contact Info) Description 11/12/2022 Telephone [facility] Pediatrics - Diabetes [address] [address] Breana Olivas MD Social History [...] * Telephone Encounter - Kadeem Coulter - 12/10/2022 1:43 PM CST Diabetes Sick Call Patient: Anaid Dimas Date: 12/10/2022 Current Blood Glucose: 453 Current Ketone result: large Last insulin given: Lantus yesterday Symptoms: nausea and vomiting, not eating since lunch yesterday Recent Illness: throwing up yesterday Plan: Go to the emergency room Miscellaneous: Anaid has been throwing up since yesterday. Mom thinks she has the same sickness as her sibling. Mom states Anaid has been unable to keep anything down. Mom was already thinking of taking her to the emergency room. SERVICE TECHNICIAN * Telephone Encounter - Subha Ivey RN - 11/19/2022 10:09 AM CST Anaid called to review bgs. See flowsheet. Anaid states that her meter time and date is wrong. She reported blood sugars the best that she could, but was unsure on a lot of them. I instructed Anaid on how to change the date and time in her meter. Per protocol, no changes made today. I asked for Anaid to call 11/25/22, for further review. Current doses: B 1:7 L 1:7 D 1:7 Mealtime correction of 1 Unit per 40 over 150: BS 151-190 1 Unit BS 191-230 2 Units BS 231-270 3 Units BS 271-310 4 Units BS >350 5 Units Lantus: 18 units SERVICE TECHNICIAN * Telephone Encounter - Kadeem Coulter - 11/12/2022 3:36 PM CST Met with Anaid in clinic today. She had a 2.5% increase in her A1c. As soon as I began going over new orders, this RN noticed that Anaid had begun to cry. Gave tissues and then continued. Talked about wearing the Dexcom and carb counting. Anaid continued tearing up during the conversation,however she denied wishing to speak about it. Suggested that she make her next appointment on a Thursday in order to meet with Dr. Mcintosh. Anaid nodded her head in understanding. All questions answered at this time. New refills sent to provider. SERVICE TECHNICIAN documented in this encounter Plan of Treatment Not on file documented as of this encounter Visit Diagnoses Not on filedocumented in this encounter Care Teams Data Visualization Developer Relationship Specialty Start Date End Date Alvarez Prabhakar MD [address] [place] [address] PCP - General 12/12/11 documented as of this encounter
--- OUTSIDE RECORDS SUMMARY | 2024-11-22 05:18 | XMS_ITS | Encounter Summary ---
Author Organization [facility] Address [address] [facility] [place] [address] Care Team Providers Care Catering Service Manager Name Role Phone Alvarez Prabhakar MD Primary Care Provider [phone] Reason for Visit * Reason Onset Date Comments Appointment 10/24/2022 Encounter Details Date Type Department Care Team (Late st Contact Info) Description 10/24/2022 Telephone [facility] Pediatrics - Endocrinology [facility] [place] [address] Breana Olivas MD Appointment Social History Tobacco Use Types Packs/Day Years [...] Telephone Encounter - Meghna Gaxiola - 10/24/2022 10:18 AM CST Called and LVM patient needs follow up with Dr. Olivas or Rosalva Moyer. -RL ER OPERATOR documented in this encounter Plan of Treatment Not on file documented as of this encounter Visit Diagnoses Not on filedocumented in this encounter Care Teams Catering Service Manager Relationship Specialty Start Date End Date Alvarez Prabhakar MD [address] [place] [address] PCP - General 12/12/11 documented as of this encounter
--- OUTSIDE RECORDS SUMMARY | 2024-11-22 05:18 | XMS_ITS | Encounter Summary ---
Author Organization [facility] Address [address] [facility] [place] [address] Care Team Providers Care Retail Selling Floor Leader Name Role Phone Alvarez Prabhakar MD Primary Care Provider [phone] Reason for Visit * Reason Onset Date Comments MEDICATION REFILL 07/03/2023 Encounter Details Date Type Department Care Team (Late st Contact Info) Description 07/03/[address] [facility] Pediatrics - Diabetes [address] [address] Breana Olivas MD MEDICATION REFILL Social History [...] uncontrolled documented in this encounter Care Teams Retail Selling Floor Leader Relationship Specialty Start Date End Date Alvarez Prabhakar MD [address] [place] [address] PCP - General 12/12/11 documented as of this encounter
--- OUTSIDE RECORDS SUMMARY | 2024-11-22 05:18 | XMS_ITS | Encounter Summary ---
Author Organization [facility] Address [address] [place] [address] Care Team Providers Care Linux Server Administrator Name Role Phone Alvarez Prabhakar MD Primary Care Provider [phone] Encounter Details Date Type Department Care Team (Latest Contact Info) Description 11/12/2022 Travel Social History Tobacco Use Types Packs/Day [...] on filedocumented in this encounter Care Teams Linux Server Administrator Relationship Specialty Start Date End Date Alvarez Prabhakar MD [address] [place] [phone] PCP - General 12/12/11 documented as of this encounter
--- OUTSIDE RECORDS SUMMARY | 2024-11-22 05:18 | XMS_ITS | Encounter Summary ---
Author Organization [facility] Address [address] [place] [address] Care Team Providers Care Plate Maker Name Role Phone Alvarez Prabhakar MD Primary Care Provider [phone] Reason for Visit * Reason Onset Date Comments MEDICATION REFILL 05/22/2023 Encounter Details Date Type Department Care Team (Late st Contact Info) Description 05/22/[address] [facility] Pediatrics - Diabetes [facility] [address] [place] [address] Rosalva Moyer, LUMBER CARRIER-WEATHERIZATION FIELD TECHNICIAN [address] [place] [phone] MEDICATION REFILL Social History Tobacco Use Types [...] Is person blind or have serious difficulty seepetrona g? No 12/10/2022 Does person have serious [...] uncontrolled documented in this encounter Care Teams Plate Maker Relationship Specialty Start Date End Date Alvarez Prabhakar MD [address] [place] [phone] PCP - General 12/12/11 documented as of this encounter
--- OUTSIDE RECORDS SUMMARY | 2024-11-22 05:18 | XMS_ITS | Encounter Summary ---
Author Organization [facility] Address [address] [facility] [place] [address] Care Team Providers Care Customs Agent Name Role Phone Alvarez Prabhakar MD Primary Care Provider [phone] Reason for Visit * Reason Comments Refill Request Encounter Details Date Type Department Care Team (Late st Contact Info) Description 06/25/2023 Refill [facility] Pediatric[facility] - Diabetes [address] [address] Breana Olivas MD Refill Request Social History [...] Encounter - Lizeth Garrett RN - 06/25/2023 1:54 PM CDT Last clinic visit 04/2023. documented in this encounter Plan of Treatment Not on file documented as of this encounter Visit Diagnoses Not on filedocumented in this encounter Care Teams Customs Agent Relationship Specialty Start Date End Date Alvarez Prabhakar MD [address] [place] [address] PCP - General 12/12/11 documented as of this encounter
--- OUTSIDE RECORDS SUMMARY | 2024-11-22 05:18 | XMS_ITS | Encounter Summary ---
Author Organization [facility] Address [address] [facility] [place] [address] Care Team Providers Care Installers Mechanical Name Role Phone Alvarez Prabhakar MD Primary Care Provider [phone] Reason for Visit * Reason Onset Date Comments Diabetes 12/10/2022 Vomiting 12/10/2022 Encounter Details Date Type Department Care Team (Late st Contact Info) Description 12/10/[address] [address] Isis Munguia MD [address] [place] [phone] Diabetes; Vomiting Social History Tobacco Use Types Packs/Day Years [...] Telephone Encounter - Isis Munguia MD - 12/10/2022 4:10 PM APARTMENT LEASING SPECIALIST Received a call from Anaid's ER resident regarding Anaid being in DKA. Anadi presented with nausea and vomiting, which started yesterday. Her sister also has a vomiting illness, which the family thought was what Anaid has, but it persisted today. The family calledour office and we recommended evaluation in the ER. She is on injections to care for her diabetes. She has not had insulin for meals or hyperglycemia since lunchtime yesterday. Unclear if this includes her Lantus. Normal mental status. She is getting her NS bolus now. pH 7.11, bicarb 8, BG on BMP 493. Recommended assessing if Anaid received her Lantus last night and giving it now if not. If she did receive it, ok to give when she typically gives her long acting dose. Agree with plan to start insulin drip and two bag system, discussed treating K as if <5.5 as hemolyzed on BMP, and starting 20 mEq Kacetate and 20 mEq of KPhos in both bags. Also requested they order the D10 bag to bedside as it takes some time for pharmacy to prepare both. Start at 2.5 L/m2, which is approximately 160 mL/hr for Anaid. Other testing as per DKA protocol. OK to admit to my team, preferably on the TCU, though PICU ok if no bed space available. TMENT LEASING SPECIALIST documented in this encounter Plan of Treatment Not on file documented as of this encounter Visit Diagnoses Not on filedocumented in this encounter Care Teams Installers Mechanical Relationship Specialty Start Date End Date Alvarez Prabhakar MD [address] [place] [phone] PCP - General 12/12/11 documented as of this encounter
--- OUTSIDE RECORDS SUMMARY | 2024-11-22 05:18 | XMS_ITS | Encounter Summary ---
Author Organization [facility] Address [address] [place] [address] Care Team Providers Care Payment Poster Name Role Phone Alvarez Prabhakar MD Primary Care Provider [phone] Reason for Visit * Reason Onset Date Comments Vomiting 08/01/2023 Encounter Details Date Type Department Care Team (Late st Contact Info) Description 08/01/[address] [address] Breana Olivas MD Vomiting Social History Tobacco Use Types Packs/Day [...] encounter Miscellaneous Notes * Telephone Encounter - Breana Olivas MD - 08/01/2023 8:47 AM CDT Mother called from out of town. Anaid is vomiting; BS 339, large ketones. Out of pen needles, soprobably no insulin dosing since night. Her father will bring her to our ER [facility] for Rx of suspected DKA. [facility] notified. documented in this encounter Plan of Treatment Not on file documented as of this encounter Visit Diagnoses Not on filedocumented in this encounter Care Teams Payment Poster Relationship Specialty Start Date End Date Alvarez Prabhakar MD [address] [place] [phone] PCP - General 12/12/11 documented as of this encounter
--- OUTSIDE RECORDS SUMMARY | 2024-11-22 05:18 | XMS_ITS | Encounter Summary ---
Author Organization [facility] Address [address] [place] [address] Care Team Providers Care Volunteer Coordinator Name Role Phone Alvarez Prabhakar MD Primary Care Provider Reason for Visit * Reason Onset Date Comments MEDICATION REFILL 04/24/2023 Encounter Details Date Type Department Care Team (Late st Contact Info) Description 04/24/2023 Refill [facility] Pediatrics - Diabetes [address] [address] Breana Olivas MD MEDICATION REFILL Social History [...] on filedocumented in this encounter Care Teams Volunteer Coordinator Relationship Specialty Start Date End Date Alvarez Prabhakar MD [address] [place] [phone] PCP - General 12/12/11 documented as of this encounter
--- OUTSIDE RECORDS SUMMARY | 2024-11-22 05:18 | XMS_ITS | Encounter Summary ---
Author Organization [facility] Address [address] [facility] [place] [address] Care Team Providers Care Handbag Stitcher Name Role Phone Alvarez Prabhakar MD Primary Care Provider [phone] Reason for Visit * Reason Comments Refill Request Encounter Details Date Type Department Care Team (Late st Contact Info) Description 10/23/2022 Refill [facility] Pediatrics - Diabetes [address] [address] Breana Olivas MD Refill Request Social History [...] on filedocumented in this encounter Care Teams Handbag Stitcher Relationship Specialty Start Date End Date Alvarez Prabhakar MD [address] [place] [phone] PCP - General 12/12/11 documented as of this encounter
--- OUTSIDE RECORDS SUMMARY | 2024-11-22 05:18 | XMS_ITS | Encounter Summary ---
Author Organization [facility] Address [address] [facility] [place] [address] Care Team Providers Care Dredge Operator Name Role Phone Alvarez Prabhakar MD Primary Care Provider [phone] Reason for Visit * Reason Onset Date Comments MEDICATION REFILL 12/04/2023 Encounter Details Date Type Department Care Team (Late st Contact Info) Description 12/04/[address] [facility] Pediatrics - Diabetes [facility] [address] [place] [address] Rosalva Moyer, SINKER WINDER-BRIDGE PAINTER HELPER [address] [place] [phone] MEDICATION REFILL Social History Tobacco Use Types [...] uncontrolled documented in this encounter Care Teams Dredge Operator Relationship Specialty Start Date End Date Alvarez Prabhakar MD [address] [place] [phone] PCP - General 12/12/11 documented as of this encounter
--- OUTSIDE RECORDS SUMMARY | 2024-11-22 05:18 | XMS_ITS | Encounter Summary ---
Author Organization [facility] Address [address] [facility] [place] [address] Care Team Providers Care Director Of Revenue Name Role Phone Alvarez Prabhakar MD Primary Care Provider [phone] Reason for Visit * Reason Onset Date Comments MEDICATION REFILL 08/03/2023 Encounter Details Date Type Department Care Team (Late st Contact Info) Description 08/03/2023 Refill [facility] Pediatrics - Diabetes [address] [address] Breana Olivas MD MEDICATION REFILL Social History [...] in this encounter Care Teams Director Of Revenue Relationship Specialty Start Date End Date Alvarez Prabhakar MD [address] [place] [address] PCP - General 12/12/11 documented as of this encounter
--- OUTSIDE RECORDS SUMMARY | 2024-11-22 05:18 | XMS_ITS | Encounter Summary ---
Author Organization [facility] Address [address] [facility] [place] [address] Care Team Providers Care Event Attendant Name Role Phone Alvarez Prabhakar MD Primary Care Provider [phone] Reason for Visit * Reason Comments Refill Request Encounter Details Date Type Department Care Team (Late st Contact Info) Description 05/08/2023 Refill [facility] Pediatrics - Diabetes [address] [address] Breana Olivas MD Refill Request Social History [...] on filedocumented in this encounter Care Teams Event Attendant Relationship Specialty Start Date End Date Alvarez Prabhakar MD [address] [place] [address] PCP - General 12/12/11 documented as of this encounter
--- OUTSIDE RECORDS SUMMARY | 2024-11-22 05:19 | XMS_ITS | Encounter Summary ---
Author Organization [facility] Address [address] [facility] [place] [address] Care Team Providers Care Cask Maker Name Role Phone Alvarez Prabhakar MD Primary Care Provider [phone] Encounter Details Date Type Department Care Team (Late st Contact Info) Description 02/20/[address] [facility] Pediatrics - Diabetes [facility] [address] [place] [address] Kory Lopez APRN-SPRINKLER INSPECTOR [address] [place] [phone] Type 1 diabetes mellitus without complication (HCC) Social History Tobacco Use Types Packs/Day Years Used Date Smoking Tobacco: Never Smokeless Tobacco: Never Alcohol Use Standard Drinks/Week Comments Not Asked 0 (1 standard drink = 0.6 oz pur e alcohol) Sex and Gender Information Value Date Recorded Sex Assigned at Not on file Gender Identity Not on file Sexual Orientation Not on file documented as of this encounter Plan of Treatment Scheduled Orders Name Type Priority Associated Diagnoses Orde r Schedule HEMOGLOBIN A1C - POCT (IPYomaira MORRIS Point of Care Testing Routine Type 1 diabetes mellitus without complication (HCC) 1 Occurrences starting 02/20/2021 until 02/15/2022 documented as of this encounter Visit Diagnoses Diagnosis Type 1 diabetes mellitus without complication (HCC)- Primary Type I (juvenile type) diabetes mellitus without mention of complication, not stated as uncontrolled documented in this encounter Care Teams Cask Maker Relationship Specialty Start Date End Date Alvarez Prabhakar MD [address] [place] [address] PCP - General 12/12/11 documented as of this encounter
--- OUTSIDE RECORDS SUMMARY | 2024-11-22 05:19 | XMS_ITS | Encounter Summary ---
Author Organization [facility] Address [address] [facility] [place] [address] Care Team Providers Care Pharmacy Operations Manager Name Role Phone Alvarez Prabhakar MD Primary Care Provider [phone] Reason for Visit * Reason Onset Date Comments General 11/29/2019 Encounter Details Date Type Department Care Team (Late st Contact Info) Description 11/29/2019 Telephone [facility] Pediatrics - Diabetes Mgmt [address] [place] [address] Kory Lopez APRN-GLORY HOLE TENDER [address] [place] [phone] General Social History Tobacco Use Types Packs/Day Years Used Date Smoking Tobacco: Never Smokeless Tobacco: Never Alcohol Use Standard Drinks/Week Comments Not Asked 0 (1 standard drink = 0.6 oz pur e alcohol) Sex and Gender Information Value Date Recorded Sex Assigned at Not on file Gender Identity Not on file Sexual Orientation Not on file documented as of this encounter Miscellaneous Notes * Telephone Encounter - Jones Mcconnell RN - 11/29/2019 1:19 PM CST I returned mom's call [phone], she acknowledged the message we left regarding formulary changefrom Novolog to Pierre and is fine with it. She reports new RX benefit manager solution, and isn't sure if they will do mail order or local pharmacy. I told Linda noted that an order was put in. If local phramacy is needed, mom would like RX sent to [facility]. Mom said they still havea month supply of Novolog. OPTICAL ELEMENT MAKER documented in this encounter Plan of Treatment Not on file documented as of this encounter Visit Diagnoses Not on filedocumented in this encounter Additional Health Concerns Infection Onset Date Last Indicated Resolved Time COVID-19 Under Investigation 03/03/2021 03/03/2021 03/03/2021 11:11 AM CDT documented as of this encounter Care Teams Pharmacy Operations Manager Relationship Specialty Start Date End Date Alvarez Prabhakar MD [address] [place] [address] PCP - General 12/12/11 documented as of this encounter
--- OUTSIDE RECORDS SUMMARY | 2024-11-22 05:19 | XMS_ITS | Encounter Summary ---
Author Organization [facility] Address [address] [facility] [place] [address] Care Team Providers Care Contract Negotiation Specialist Name Role Phone Alvarez Prabhakar MD Primary Care Provider [phone] Reason for Visit * Reason Onset Date Comments MEDICATION REFILL 04/15/2022 Encounter Details Date Type Department Care Team (Late st Contact Info) Description 04/15/2022 Refill [facility] Pediatrics - Diabetes [address] [address] Breana Olivas MD MEDICATION REFILL Social History [...] suspected to have Coronavirus/COVID-19? No / Unsure 04/15/2022 10:46 AM CDT documented as of this encounter [...] uncontrolled documented in this encounter Care Teams Contract Negotiation Specialist Relationship Specialty Start Date End Date Alvarez Prabhakar MD [address] [place] [address] PCP - General 12/12/11 documented as of this encounter
--- OUTSIDE RECORDS SUMMARY | 2024-11-22 05:19 | XMS_ITS | Encounter Summary ---
Author Organization [facility] Address [address] [facility] [place] [address] Care Team Providers Care Grease And Tallow Pumper Name Role Phone Alvarez Prabhakar MD Primary Care Provider [phone] Reason for Referral * Radiology Services (Routine) - Closed Specialty Diagnoses / Procedures Referred By Fan medina Referred To Contact Diagnoses Nocturnal enuresis Bladder dysfunction Procedures KIDNEY AND BLADDER Makenna Rod APRN-CNP [address] [place] [id number] Referral ID Status Reason Start Date Expiration Date Visits Re quested Visits Authorized [id number] Closed 11/22/2020 11/22/2021 1 1 Reason for Visit * Radiology Services (Routine) - Closed Specialty Diagnoses / Procedures Referred By Fan medina Referred To Contact Diagnoses Nocturnal enuresis Bladder dysfunction Procedures US KIDNEY AND BLADDER Makenna Rod APRN-CNP [address] [place] [phone] Referral ID Status Reason Start Date Expiration Date Visits Re quested Visits Authorized [id number] Closed 11/22/2020 11/22/2021 1 1 Encounter Details Date Type Department Care Team (Latest Contact Info) Description 06/20/2021 10:16 AM CDT - 06/20/2021 10:37 AM CDT Hospital Encounter [facility] [place] - Ultrasound [address] [facility] [place] [address] Makenna Rod, ICD 9 [place] DIRECT[employer] WELFARE [address] [place] [address] Discharge Disposition: Home or Self Care Social [...] Exposure Response Date Recorded In the last month, have you been in contact with someone who was confirmed or suspected to have Coronavirus / COVID-19? No / Unsure 05/21/2021 1:09 PM CDT documented as of this encounter Functional [...] No 03/04/2021 documented as of this encounter Medications at [...] Kit 0 08/18/2012 Blood Glucose Monitoring Suppl (GreenLightUCH VERIO IQ SYSTEM) w/Device KIT Use 1 [...] syringe as directed 50 Each 5 03/11/2021 ACCU-CHEK FASTCLIX LANCETS Use for blood glucose [...] than 250 or when ill. ) 100 Strip 11 04/21/2017 04/15/2022 Basaglar KwikPen (BASAGLAR) pen Inject 30 units daily or as directed 15 mL 5 06/17/2021 10/24/2022 Insulin Lispro (HUMALOG KWIKPEN) 100 UNIT/MLIndications:Ty pe 1 diabetes mellitus without complication (HCC) 1 unit for every 10 grams of carbohydrate. 4 Pen 5 03/12/2021 09/09/2021 insulin lispro (HUMALOG;ADMELOG) 100 UNIT/ML pen Inject [...] times daily. 200 Each 11 05/24/2018 08/03/2023 ONETOUCH DELICA LANCETS 33G MISC Use 1 Each as directed 200 Each 4 12/16/2019 04/15/2022 ONETOUCH VERIO test strip USE TO TEST BLOOD SUGAR 5-9 TIMES DAILY 200 strip 4 10/08/2020 08/19/2021 documented as of this encounter Plan of Treatment Not on file documented as of this encounter Procedures Procedure Name Priority Date/Time Associated Diagnosis Comments US KIDNEYS W BLADDER Routine 06/20/2021 10:33 AM CDT Nocturnal enuresis Bladder dysfunction documented in this encounter Results * US KIDNEY AND BLADDER (06/20/2021 10:33 AM CDT) Anatomical Region Laterality Modality Abdomen Ultrasound 06/20/2021 10:1 8 AM CDT Impressions 06/20/2021 2:06 PM CDT Normal renal ultrasound. Reading Radiologist: Zhanna Rivera on 06/20/2021 at 2:06 PM Narrative 06/20/2021 2:06 PM CDT INDICATION: Nocturnal anuresis ORDERING PROVIDER: MAKENNA ROD COMPARISON: None available. TECHNIQUE: Leos scale and [...] of 31 mL. Procedure Note Zhanna Rivera, - 06/20/2021 INDICATION: Nocturnal anuresis ORDERING PROVIDER: MAKENNA ROD COMPARISON: None available. TECHNIQUE: Leos scale and [...] Rivera on 06/20/2021 at 2:06 PM Makenna Rod ICD 9 [employer] DIRECTOR WELFARE US ORDERABLES documented in this encounter Visit Diagnoses Diagnosis Nocturnal enuresis Bladder dysfunction Other functional disorder of bladder documented in this encounter Care Teams Grease And Tallow Pumper Relationship Specialty Start Date End Date Alvarez Prabhakar MD [address] [place] [address] PCP - General 12/12/11 documented as of this encounter
--- OUTSIDE RECORDS SUMMARY | 2024-11-22 05:19 | XMS_ITS | Encounter Summary ---
Author Organization [facility] Address [address] [facility] [place] [address] Care Team Providers Care Farmer Vegetable Name Role Phone Alvarez Prabhakar MD Primary Care Provider [phone] Encounter Details Date Type Department Care Team (Latest Contact Info) Description 09/19/2020 Travel Social History Tobacco Use Types Packs/Day [...] have Coronavirus / COVID-19? No / Unsure 09/19/2020 2:21 PM CDT documented as of this encounter Plan of Treatment Not on file documented as of this encounter Visit Diagnoses Not on filedocumented in this encounter Care Teams Farmer Vegetable Relationship Specialty Start Date End Date Alvarez Prabhakar MD [address] [place] [address] PCP - General 12/12/11 documented as of this encounter
--- OUTSIDE RECORDS SUMMARY | 2024-11-22 05:19 | XMS_ITS | Encounter Summary ---
Author Organization [facility] Address [address] [facility] [place] [address] Care Team Providers Care Executive Director Contract Shop Name Role Phone Alvarez Prabhakar MD Primary Care Provider [phone] Reason for Visit * Reason Comments Refill Request Encounter Details Date Type Department Care Team (Late st Contact Info) Description 04/17/2020 Refill [facility] Pediatrics - Diabetes [address] [address] Breana Olivas MD Refill Request Social History [...] on filedocumented in this encounter Care Teams Executive Director Contract Shop Relationship Specialty Start Date End Date Alvarez Prabhakar MD [address] [place] [phone] PCP - General 12/12/11 documented as of this encounter
--- OUTSIDE RECORDS SUMMARY | 2024-11-22 05:19 | XMS_ITS | Encounter Summary ---
Author Organization [facility] Address [address] [facility] [place] [address] Care Team Providers Care Marble Cleaner Name Role Phone Alvarez Prabhakar MD Primary Care Provider [phone] Reason for Visit * Reason Onset Date Comments MEDICATION REFILL 12/16/2019 Encounter Details Date Type Department Care Team (Late st Contact Info) Description 12/16/2019 Refill [facility] Pediatrics - Diabetes [facility] [address] [place] [address] Kory Lopez APRN-REPLANTING MACHINE CREW [address] [place] [phone] MEDICATION REFILL Social History Tobacco Use Types [...] on filedocumented in this encounter Care Teams Marble Cleaner Relationship Specialty Start Date End Date Alvarez Prabhakar MD [address] [place] [address] PCP - General 12/12/11 documented as of this encounter
--- OUTSIDE RECORDS SUMMARY | 2024-11-22 05:19 | XMS_ITS | Encounter Summary ---
Author Organization [facility] Address [address] [facility] [place] [address] Care Team Providers Care Customs Compliance Manager Name Role Phone Alvarez Prabhakar MD Primary Care Provider [phone] Encounter Details Date Type Department Care Team (Latest Contact Info) Description 05/21/2021 Travel Social History Tobacco Use Types Packs/Day [...] filedocumented in this encounter Care Teams Customs Compliance Manager Relationship Specialty Start Date End Date Alvarez Prabhakar MD [address] [place] [address] PCP - General 12/12/11 documented as of this encounter
--- OUTSIDE RECORDS SUMMARY | 2024-11-22 05:19 | XMS_ITS | Encounter Summary ---
Author Organization [facility] Address [address] [facility] [place] [address] Care Team Providers Care Centrifugal Supervisor Name Role Phone Alvarez Prabhakar MD Primary Care Provider [phone] Encounter Details Date Type Department Care Team (Latest Contact Info) Description 02/20/2021 Travel Social History Tobacco Use Types Packs/Day [...] have Coronavirus / COVID-19? No / Unsure 02/20/2021 1:00 PM CDT documented as of this encounter Plan of Treatment Not on file documented as of this encounter Visit Diagnoses Not on filedocumented in this encounter Care Teams Centrifugal Supervisor Relationship Specialty Start Date End Date Alvarez Prabhakar MD [address] [place] [address] PCP - General 12/12/11 documented as of this encounter
--- OUTSIDE RECORDS SUMMARY | 2024-11-22 05:19 | XMS_ITS | Encounter Summary ---
Author Organization [facility] Address [address] [place] [address] Care Team Providers Care Refuge Manager Name Role Phone Alvarez Prabhakar MD Primary Care Provider [phone] Reason for Visit * Reason Onset Date Comments Blood Glucose (Sugar) Review 02/20/2021 Encounter Details Date Type Department Care Team (Late st Contact Info) Description 02/20/2021 Telephone [facility] Pediatrics - Diabetes [address] [address] Kory Lopez APRN-CARDIOLOGY CLINICAL NURSE SPECIALIST [address] [place] [id number] Blood Glucose (Sugar) Review Social History Tobacco Use Types Packs/Day Years [...] have Coronavirus / COVID-19? No / Unsure 07/09/2021 11:24 AM CDT documented as of this encounter Miscellaneous Notes * Telephone Encounter - Lizeth Garrett RN - 02/20/2021 1:31 PM CDT Informed by [place] DAILY that patient could not be seen in clinic today due to insurance coverage. Called and spoke with mother who stated family was not in need of assistance at this time. She is going to call [place] to see if child could be seen at this site with their insurance. She stated she plans on changing insurance to allow him to continue to see provider at [facility]. Presently she is not wearing a sensor as shipment got delayed. Will mail sample sensor to home address. Mother to call back with issues or concerns. She was in store at present and could not talk at thistime. documented in this encounter Plan of Treatment Not on file documented as of this encounter Visit Diagnoses Not on filedocumented in this encounter Additional Health Concerns Infection Onset Date Last Indicated Resolved Time COVID-19 Under Investigation 03/03/2021 03/03/2021 03/03/2021 11:11 AM CDT documented as of this encounter Care Teams Refuge Manager Relationship Specialty Start Date End Date Alvarez Prabhakar MD [address] [place] [address] PCP - General 12/12/11 documented as of this encounter
--- OUTSIDE RECORDS SUMMARY | 2024-11-22 05:19 | XMS_ITS | Encounter Summary ---
Author Organization [facility] Address [address] [facility] [place] [address] Care Team Providers Care Alemite Operator Name Role Phone Alvarez Prabhakar MD Primary Care Provider [phone] Encounter Details Date Type Department Care Team (Latest Contact Info) Description 04/23/2022 8:37 AM CDT - 04/23/2022 11:59 PM CDT Hospital Encounter [facility] Pediatrics - Radiology [address] [place] [address] Fina Lynn MD [facility] [place] [address] Discharge Disposition: Home or Self Care Social [...] suspected to have Coronavirus/COVID-19? No / Unsure 04/23/2022 8:20 AM CDT documented as of this encounter [...] Kit 0 08/18/2012 Blood Glucose Monitoring Suppl (Pharmalink VERIO IQ SYSTEM) w/Device KIT Use 1 [...] Glucagon (BAQSIMI TWO PACK) 3 MG/DOSE POWD [place] 1 Each into the nose as directed [...] 08/19/2021 10/24/2022 documented as of this encounter Plan of Treatment Not on file documented as of this encounter Procedures Procedure Name Priority Date/Time Associated Diagnosis Comments XR WRIST LEFT 3VW OR MORE Routine 04/23/2022 8:38 AM CDT Ganglion cyst of finger of left hand documented in this encounter Results * XR WRIST LEFT 3VW OR MORE [...] AM Fina Lynn MD DIAGNOSTIC IMAGING ORDERABLES documented in this encounter Visit Diagnoses Diagnosis Ganglion cyst of finger of left hand documented in this encounter Care Teams Alemite Operator Relationship Specialty Start Date End Date Alvarez Prabhakar MD [address] [place] [address] PCP - General 12/12/11 documented as of this encounter
--- OUTSIDE RECORDS SUMMARY | 2024-11-22 05:19 | XMS_ITS | Encounter Summary ---
Author Organization [facility] Address [address] [facility] [place] [address] Care Team Providers Care Counter Stacker Name Role Phone Alvarez Prabhakar MD Primary Care Provider [phone] Encounter Details Date Type Department Care Team (Late st Contact Info) Description 09/19/2020 Orders Only [facility] Pediatrics - Diabetes [facility] [address] [place] [address] Kory Lopez APRN-[employer] [address] [place] [id number] Type 1 diabetes mellitus without complication, with long-term current use of insulin ([facility]) Social History Tobacco Use Types Packs/Day Years [...] have Coronavirus / COVID-19? No / Unsure 09/12/2020 1:14 PM CDT documented as of this encounter Plan of Treatment Scheduled Orders Name Type Priority Associated Diagnoses Order Schedule HEMOGLOBIN A1C - POCT (IPYomaira MORRIS Point of Care Testing Routine Type 1 diabetes mellitus without complication, with long-term current use of insulin (HCC) 1 Occurrences starting 09/19/2020 until 09/14/2021 documented as of this encounter Results * MICROALB/CREAT RATIO URINE RANDOM PANEL (09/19/2020 2:48 PM CDT) Creatinine Urine 46.05 mg/dL 09/20/20 20 1:02 PM CDT [facility] Microalbumin Urine 0.6 mg/dL 09/20/2020 1:02 PM CDT [facility] Microalbumin/Crea tinine Ratio 09/20/2020 1:02 PM CDT [facility] Comment:13 mg/g Urine URINE SPECIMEN OBTAINED BY CLEAN CATCH PROCEDURE / Unknown Collection / Unknown 09/19/2020 2:48 PM CDT 09/19/2020 2:57 PM CDT Kory Lopez CRAFT WORKER-[employer] [facility] - URINE JOSE ABELINO ORDERABLES [facility] [address] [place] [address] * (ABNORMAL) LIPID PROFILE (09/19/2020 2:41 PM CDT) Cholesterol 239(H) <170 mg/dL 09/19/2020 3:26 PM CDT [facility] Triglycerides 211(H) <150 mg/dL 09/19/2020 3:26 PM CDT [facility] HDL Cholesterol 80 >40 mg/dL 0 3:26 PM T [facility] LDL Calculated 117(H) <100 mg/dL 09/19/2020 3:26 PM T [facility] VLDL Calculated 42(H) 12 - 38 mg/dL 09/19/2020 3:26 PM T [facility] Chol HDL Ratio 3.0 <=5.0 09/19/2020 3:26 PM CDT [facility] Blood BLOOD SPECIMEN / Unknown Venipuncture / Unknown 09/19/2020 2:41 PM CDT 09/19/2020 2:57 PM CDT Narrative [facility] - 09/19/2020 3:26 PM CDT Lipid Profile Comment: Adult references ranges are the recommendation of the [place] [employer] , for those patients >18 years old. Cholestrol ??LDL ?? Triglycerides ?HDL ?? -- ?-- ? -- ?<40 ?Low <170 ? <100 ?<150 ? Desirable 170-199 ?? 130-159 ? 150-199 ?Borderline High >200 ?160-189 ? 200-499 ?>60 ?High Risk factor status for Coronary Artery Disease is necessary to place these lab findings in perspective. Note: This test is for fasting patients only. A non-fasting state may alter some of these results. Kory Lopez CRAFT WORKER-[employer] [facility] LAB - CHEMISTRY ORDERABLES [facility]. [place] [phone] * TISSUE TRANSGLUTAMINASE AB IGA (09/19/2020 2:41 PM CDT) TTG Antibody IgA <2 0 - 3 U/mL 09/20/2020 2:09 PM CDT [facility] ([facility]) Comment: ?Negative ?0 - ??3 ?Weak Positive ?? 4 - 10 ?Positive ? >10 Tissue Transglutaminase (tTG) has been identified as the endomysial antigen. ??Studies have demonstr- ated that endomysial IgA antibodies have over 99% specificity for gluten sensitive enteropathy. Blood BLOOD SPECIMEN / Unknown Venipuncture / Unknown 09/19/2020 2:41 PM CDT 09/19/2020 2:57 PM CDT Narrative [facility] ([facility]) - 09/20/2020 2:09 PM CDT Performed at: ??01 - [facility] [address] [facility], [place], [place] ??[id number] Powdered Metal Supervisor: Justo Johnson PhD, Phone: ??[phone] Kory Lopez APRN-[facility] - SEROLOGY ORDERABLES Performing Organization Address City/[facility]/ZIP Co de Phone Number [facility] ([facility]) [address] [place] [address] * TSH (09/19/2020 2:41 PM CDT) TSH 1.41 0.35 - 4.95 uIU/mL 09/19/2020 3:47 PM CDT [facility] Blood BLOOD SPECIMEN / Unknown Venipuncture / Unknown 09/19/2020 2:41 PM CDT 09/19/2020 2:57 PM CDT Kory Lopez APRN-[facility] - CHEMISTRY ORDERABLES [facility] [address] [place] [address] documented in this encounter Visit Diagnoses Diagnosis Type 1 diabetes mellitus without complication, with long-term current use of insulin (HCC)- Primary documented in this encounter Care Teams Counter Stacker Relationship Specialty Start Date End Date Alvarez Prabhakar MD [address] [place] [address] PCP - General 12/12/11 documented as of this encounter
--- OUTSIDE RECORDS SUMMARY | 2024-11-22 05:19 | XMS_ITS | Encounter Summary ---
Author Organization [facility] Address [address] [facility] [place] [address] Care Team Providers Care Onsite Health Coach Name Role Phone Alvarez Prabhakar MD Primary Care Provider [phone] Reason for Visit * Reason Onset Date Comments Follow-up 03/07/2021 Encounter Details Date Type Department Care Team (Late st Contact Info) Description 03/07/2021 Telephone [facility] Pediatrics - Diabetes [place] [id number] [place] [address] Kory Lopez, WENDI-FOOT WORKER [address] [place] [phone] Follow-up Social History Tobacco Use Types Packs/Day Years [...] Telephone Encounter - Lizeth Garrett RN - 03/07/2021 1:18 PM CDT Called to verify primary insurance in efforts to see if can be seen at [facility] or another facility. Left message asking parent to call office. documented in this encounter Plan of Treatment Not on file documented as of this encounter Visit Diagnoses Not on filedocumented in this encounter Care Teams Onsite Health Coach Relationship Specialty Start Date End Date Alvarez Prabhakar MD [address] [place] [address] PCP - General 12/12/11 documented as of this encounter
--- OUTSIDE RECORDS SUMMARY | 2024-11-22 05:19 | XMS_ITS | Encounter Summary ---
Author Organization [facility] Address [address] [place] [address] Care Team Providers Care Driver License Agent Name Role Phone Alvarez Prabhakar MD Primary Care Provider [phone] Reason for Visit * Reason Onset Date Comments General 12/06/2020 Encounter Details Date Type Department Care Team (Late st Contact Info) Description 12/06/2020 Telephone [facility] Pediatrics - Endocrinology [facility] [place] [address] Breana Olivas MD General Social History Tobacco Use Types Packs/Day [...] have Coronavirus / COVID-19? No / Unsure 11/21/2020 1:09 PM TEMPORARY ADMINISTRATIVE ASSISTANT documented as of this encounter Miscellaneous Notes * Telephone Encounter - Jones Mcconnell RN - 12/11/2020 1:11 PM CST I returned mom's call, reports pt is wearing her Dexcom G6 and she is calling to let us know it is up and running. Invitation to share sent [email or web address], also told mom that they should not use both tissue technician and phone dianna, use phone only if they want the share feature, otherwise the 2 w ill compete for the bluetooth signal. Mom agreed. Call as needed to review bgs. ORARY ADMINISTRATIVE ASSISTANT * Telephone Encounter - Linda Torres RN - 12/06/2020 11:16 AM CST CMN sent to [employer] for sensors. ORARY ADMINISTRATIVE ASSISTANT documented in this encounter Plan of Treatment Not on file documented as of this encounter Visit Diagnoses Not on filedocumented in this encounter Care Teams Driver License Agent Relationship Specialty Start Date End Date Alvarez Prabhakar MD [address] [address] PCP - General 12/12/11 documented as of this encounter
--- OUTSIDE RECORDS SUMMARY | 2024-11-22 05:19 | XMS_ITS | Encounter Summary ---
Author Organization [facility] Address [address] [facility] [place] [address] Care Team Providers Care Manager Care Management Name Role Phone Alvarez Prabhakar MD Primary Care Provider [phone] Reason for Visit * Reason Onset Date Comments MEDICATION REFILL 03/01/2021 Encounter Details Date Type Department Care Team (Late st Contact Info) Description 03/01/2021 Refill [facility] Pediatrics - Diabetes [address] [address] Brendan Zafar MD [address] [place] [phone] MEDICATION REFILL Social History Tobacco Use Types [...] AM CDT documented as of this encounter Plan of Treatment Not on file documented as of this encounter Visit Diagnoses Not on filedocumented in this encounter Additional Health Concerns Infection Onset Date Last Indicated Resolved Time COVID-19 Under Investigation 03/03/2021 03/03/2021 03/03/2021 11:11 AM CDT documented as of this encounter Care Teams Manager Care Management Relationship Specialty Start Date End Date Alvarez Prabhakar MD [address] [place] [phone] PCP - General 12/12/11 documented as of this encounter
--- OUTSIDE RECORDS SUMMARY | 2024-11-22 05:19 | XMS_ITS | Encounter Summary ---
Author Organization [facility] Address [address] [facility] [place] [address] Care Team Providers Care Assembly Department Supervisor Name Role Phone Alvarez Prabhakar MD Primary Care Provider [phone] Reason for Visit * Reason Comments Refill Request Encounter Details Date Type Department Care Team (Late st Contact Info) Description 10/08/2020 Refill [facility] Pediatrics - Diabetes [facility] [address] [place] [address] Kory Lopez, WENDI-CORE MICROARCHITECT [address] [place] [phone] Refill Request Social History Tobacco Use Types [...] on filedocumented in this encounter Care Teams Assembly Department Supervisor Relationship Specialty Start Date End Date Alvarez Prabhakar MD [address] [place] [phone] PCP - General 12/12/11 documented as of this encounter
--- OUTSIDE RECORDS SUMMARY | 2024-11-22 05:19 | XMS_ITS | Encounter Summary ---
Author Organization [facility] Address [address] [facility] [place] [address] Care Team Providers Care Patent Chemist Name Role Phone Alvarez Prabhakar MD Primary Care Provider [phone] Reason for Visit * Reason Onset Date Comments Returned Call 09/20/2021 Encounter Details Date Type Department Care Team (Late st Contact Info) Description 09/20/2021 Telephone [facility] Pediatrics - Diabetes Mgmt [address] [place] [address]. [place] [address] Jeanne Wahl, DO [facility] [place] [address] Returned Call Social History Tobacco Use Types Packs/Day [...] Telephone Encounter - Lizeth Garrett RN - 09/20/2021 10:00 AM CDT Received message from mother stating she could not get Dexcom G 6 transmitter from pharmacy as on back order. Going to come get sample from hospital this am. documented in this encounter Plan of Treatment Not on file documented as of this encounter Visit Diagnoses Not on filedocumented in this encounter Care Teams Patent Chemist Relationship Specialty Start Date End Date Alvarez Prabhakar MD [address] [place] [address] PCP - General 12/12/11 documented as of this encounter
--- OUTSIDE RECORDS SUMMARY | 2024-11-22 05:19 | XMS_ITS | Encounter Summary ---
Author Organization [facility] Address [address] [facility] [place] [place] [address] Care Team Providers Care Automatic Lump Making Machine Tender Name Role Phone Alvarez Prabhakar MD Primary Care Provider [phone] Encounter Details Date Type Department Care Team (Latest Contact Info) Description 03/12/2021 Travel Social History Tobacco Use Types Packs/Day [...] have Coronavirus / COVID-19? No / Unsure 03/12/2021 8:33 AM CDT documented as of this encounter [...] on filedocumented in this encounter Care Teams Automatic Lump Making Machine Tender Relationship Specialty Start Date End Date Alvarez Prabhakar MD [address] [place] [phone] PCP - General 12/12/11 documented as of this encounter
--- OUTSIDE RECORDS SUMMARY | 2024-11-22 05:19 | XMS_ITS | Encounter Summary ---
Author Organization [facility] Address [address] [facility] [place] [address] Care Team Providers Care Photoresist Contact Printer Name Role Phone Alvarez Prabhakar MD Primary Care Provider [phone] Reason for Visit * Reason Onset Date Comments MEDICATION REFILL 10/26/2020 Encounter Details Date Type Department Care Team (Late st Contact Info) Description 10/26/2020 Refill [facility] Pediatrics - Diabetes Mgmt [address] [place] [address] Brendan Zafar MD [address] [place] [phone] MEDICATION REFILL Social History Tobacco Use Types [...] or suspected to have Coronavirus / COVID-19? Unable to assess 10/22/2020 3:50 PM SOLAR INSTALLATION MANAGER documented as of this encounter Plan of Treatment Not on file documented as of this encounter Visit Diagnoses Diagnosis Type 1 diabetes mellitus without complication (HCC) Type I (juvenile type) diabetes mellitus without mention of complication, not stated as uncontrolled documented in this encounter Care Teams Photoresist Contact Printer Relationship Specialty Start Date End Date Alvarez Prabhakar MD [address] [place] [address] PCP - General 12/12/11 documented as of this encounter
--- OUTSIDE RECORDS SUMMARY | 2024-11-22 05:19 | XMS_ITS | Encounter Summary ---
Author Organization [facility] Address [address] [facility] [place] [address] Care Team Providers Care Supervisor Pipe Finishing Name Role Phone Alvarez Prabhakar MD Primary Care Provider [phone] Encounter Details Date Type Department Care Team (Latest Contact Info) Description 03/07/2021 Travel Social History Tobacco Use Types Packs/Day [...] have Coronavirus / COVID-19? No / Unsure 03/07/2021 3:34 PM CDT documented as of this encounter [...] on filedocumented in this encounter Care Teams Supervisor Pipe Finishing Relationship Specialty Start Date End Date Alvarez Prabhakar MD [address] [place] [phone] PCP - General 12/12/11 documented as of this encounter
--- OUTSIDE RECORDS SUMMARY | 2024-11-22 05:19 | XMS_ITS | Encounter Summary ---
Author Organization [facility] Address [address] [facility] [place] [address] Care Team Providers Care Sales Appointment Coordinator Name Role Phone Alvarez Prabhakar MD Primary Care Provider [phone] Encounter Details Date Type Department Care Team (Late st Contact Info) Description 04/15/2022 Telephone [facility] Pediatrics - Diabetes [address] [address] Breana Olivas MD Social History [...] encounter Miscellaneous Notes * Telephone Encounter - Brooklyn Neely RN - 04/15/2022 4:18 PM CDT Received a fax from [employer] stating a PA was needed and secondary does not cover this plan. Script went through primary insurance for a copay $35 but mom wants sec to pay Sent a PA through covermymeds to [employer] for Dexcom G6 sensor. Primary insurance: [employer] Secondary: [employer] documented in this encounter Plan of Treatment Not on file documented as of this encounter Visit Diagnoses Not on filedocumented in this encounter Care Teams Sales Appointment Coordinator Relationship Specialty Start Date End Date Alvarez Prabhakar MD [address] [place] [address] PCP - General 12/12/11 documented as of this encounter
--- OUTSIDE RECORDS SUMMARY | 2024-11-22 05:19 | XMS_ITS | Encounter Summary ---
Author Organization [facility] Address [address] [facility] [place] [address] Care Team Providers Care Application Chemist Name Role Phone Alvarez Prabhakar MD Primary Care Provider [phone] Reason for Visit * Reason Comments Diabetes Encounter Details Date Type Department Care Team (Late st Contact Info) Description 09/19/2020 2:24 PM CDT - 09/19/2020 11:59 PM CDT Hospital [facility] [address] [place] [address] Kory Lopez, WENDI-CAMERA SYSTEMS ENGINEER [address] [place] [phone] Discharge Disposition: Home or Self Care Social [...] PM CDT documented as of this encounter Last Filed Vital Signs Vital Sign Reading Time Taken Comments Blood Pressure - - Pulse - - Temperature - - Respiratory Rate - - Oxygen Saturation - - Inhaled Oxygen Concentration - - Weight 57.2 kg (126 lb 1.7 oz) 09/19/2020 2:36 P M CDT Height 155 cm (5' 1.02 ) 09/19/2020 2:36 PM CDT Body Mass Index 23.81 09/19/2020 2:36 PM CDT Body Mass Index Percentile 81.15% 09/19/2020 2:3 6 PM CDT Growth Chart: [facility] (Girls, 2- 20 Years) documented in this encounter Discharge Instructions * Patient Instructions* Kory Lopez APRN-CNP - 09/19/2020 2:25 PM CDT 1) adults to witness blood sugar checks [...] 10) return in 2 months for Getachew documented in this encounter Medications at Time [...] Kit 0 08/18/2012 Blood Glucose Monitoring Suppl (UFOstart AG VERIO IQ SYSTEM) w/Device KIT Use 1 [...] USE FOR INJECTION DAILY 100 Each 04/17/2020 ACCU-CHEK FASTCLIX LANCETS Use for blood glucose [...] ill. ) 100 Strip 11 04/21/2017 04/15/2022 blood glucose (ONETOUCH VERIO) test strip Use to test 5-9 times daily 200 strip 4 12/16/2019 10/08/2020 glucagon (GLUCAGON EMERGENCY) injection Inject 1 mg into muscle as needed 2 mg 09/19/2020 03/04/2021 insulin aspart (NOVOLOG FLEXPEN) penIndications:Type 1 diabetes mellitus without complication (HCC) 1 unit per 16 grams of carbohydrate with meals and snacks. 15 mL 5 05/19/2019 03/04/2021 insulin aspart (NOVOLOG PENFILL) cartridgeIndications: Type 1 diabetes mellitus without complication (HCC) Inject 1 unit per 18-20 grams of carbohydrates or as directed. . Max daily dose 40 units. 1 Box 5 01/13/2019 03/04/2021 insulin glargine (LANTUS) vialIndications:Type 1 diabetes mellitus without complication (HCC) Inject 23 Units subcutaneously at bedtime 10 mL 4 10/14/2019 10/26/2020 Insulin Lispro (HUMALOG KWIKPEN) 100 UNIT/ML Use up to 35 units per day. 1 unit for every 14 grams of carbohydrate. 4 Pen 5 01/12/2020 11/21/2020 Insulin Pen Needle (BD PEN NEEDLE DRAKE U/F) 32G X 4 MM MISCIndications:Type 1 diabetes mellitus without complication (HCC) Use 4-6 Each as directed Use for injections 4-6 times daily. 200 Each 11 05/24/2018 08/03/2023 ONETOUCH DELICA LANCETS 33G MISC Use 1 Each as directed 200 Each 4 12/16/2019 04/15/2022 documented as of this encounter Progress Notes * Kory Lopez, WENDI-CAMERA SYSTEMS ENGINEER - 09/19/2020 2:25 PM CDT Images from the original note were not included. Pediatric Diabetes Clinic Follow-Up Note [facility] Anaid Dimas and her grandmother and mother via speakerphone were in our Pediatric Endocrinology clinic at [facility] on 09/19/2020. She is a 14 year old 11 month old who has: Problem Type 1 Diabetes Mellitus Without Complication Diagnosed 08/17/2012 Anaid???s current treatment regimen is as follows: Insulin Brand/Type:humalog Delivery Device:kwikpen Insulin to Carbohydrate Ratios:1:14 Correction Dose:1 per 40 over 150 Lantus Dose:25 Injection Sites and Compliance:given by herself or mother, in her arms and legs, Mostly after eating Average Daily Total: 55 units Other Medications: none Interval History: Significant for mother's water just broke at 28 weeks and she is currently in thehospital being evaluated. She has experienced no issues related to diabetes management since our past visit. Diabetes Self-Management: Anaid checks her blood glucose 0-1 times per day using a verio meter.Per ADA guidelines, people with type 1 diabetes on multiple- dose insulin or insulin pump therapy should perform SMBG prior to meals and snacks, occasionally post-prandial, at bedtime, prior to exercise, when they suspect low blood glucose, after treating low blood glucose until they are normoglycemic, and prior to critical tasks such as driving. Anaid???s target blood glucose range is 80-150. Anaid experiences 0-1 lows per week that are sensed when the blood sugar is less than 70. Anaidfeels the following symptoms when he/she is hypoglycemic: shaking and fatigue. Low blood sugars are treated with bread, apple juice. This patient has glucagon and glucagon is and She does notwear her Medic-Alert tag. Anaid checks urine for ketones when glucose >250 and ill. Past Medical History: Social History: Social History Social History Narrative Social History: Anaid lives with mother and grandmother. Goes to father's every other weekend. She is in the 10th grade at [employer] and is achieving average grades, IEP. She has an in-tact diabetes management plan for school. Anaid has good friends and for extracurricular activity Anaid enjoys social media and art. Anaid Dimas expresses feelings of acceptance regarding living with diabetes. Review of Systems: General: sleeping poorly, low energy during the day ENT: vision is worse, last eye exam in November, brushes teeth BID Skin: normal Cardiorespiratory: normal Gastrointestinal: normal Genitourinary: nocturnal enuresis nightly Endocrine: no fatigue or temperature intolerance Psychiatric: normal Neurologic: no headaches or tremors, normal Musculoskeletal: No muscle weakness, No joint pain and normal range of motion Physical Examination: Ht 1.55 m (5' 1.02 ) Wt 57.2 kg (126 lb 1.7 oz) LMP 10/11/2018 (Approximate) BMI 23.81 kg/m??Height: 155 cm (5' 1.02 ) General: alert and oriented; well-appearing Eyes: Normal- EOM intact, normal fundi HEENT: Normal Neck: Normal- thyroid not enlarged Chest/Breast: Normal Lungs: Clear to auscultation, unlabored breathing Heart: Normal PMI, regular rate & rhythm, normal S1,S2, no murmurs, rubs, or gallops Abdomen: Normal scaphoid appearance, soft, non-tender, without organ enlargement or masses. Genitourinary: Not examined Musculoskeletal: Normal symmetric bulk and strength Lymphatic: No abnormally enlarged lymph nodes. Skin/Hair/Nails: No rashes or abnormal dyspigmentation Neurologic: Mental status normal, DTR 3+, normal strength and tone, normal gait Laboratory Data: Hospital Encounter on 09/19/20 LIPID PROFILE Result Value Ref Range Cholesterol 239 (H) <170 mg/dL Triglycerides 211 (H) <150 mg/dL HDL Cholesterol 80 >40 mg/dL LDL Calculated 117 (H) <100 mg/dL VLDL Calculated 42 (H) 12 - 38 mg/dL Chol HDL Ratio 3.0 <=5.0 TSH Result Value Ref Range TSH 1.41 0.35 - 4.95 uIU/mL HEMOGLOBIN A1C - POCT INTERFACED Result Value Ref Range Hemoglobin A1C POCT 11.8 (H) 3.4 - 6.1 % Estimated Average Glucose 292 mg/dL 14-Day Blood Glucose Statistics: Pre-Breakfast Pre-Lunch Pre-Dinner Bedtime Other Low High ~Average~ 4 BG checks in the past 7 days ranging from 141 to 600 Assessment and Management Plan: Poor diabetes control from lack of bg monitoring and inadequate/missed insulin doses. I had a long conversation with mother and grandmother today about the importance of full adult management in this situation in order to prevent loss of life or normal functioning. We have not seen Anaid nor heard from the family to discuss diabetes control since June of 2019.Mother and grandmother seemed engaged and understanding of my plan for Anaid, however due to thehistorical lack of follow up we will need to monitor this situation closely. See plan below. Type 1 diabetes mellitus without complication 1) adults to witness blood sugar checks [...] 10) return in 2 months for Getachew Of the 45 minutes spent with Anaid, 35 minutes were spent discussing HgbA1c, hypoglycemia, ketosis, exercise, glucagon, sick days, control and complications, blood glucose monitoring and parental supervision Follow-Up: Return in about 2 months (around 11/19/2020) for Getachew. ABIDA Clarke CC: Alvarez Prabhakar MD [address] [place] [address] [address] / [facility] [id number] Date: 09/19/2020 2:51 PM documented in this encounter Plan of Treatment Not on file documented as of this encounter Procedures Procedure Name Priority Date/Time Associated Diagnosis Comments HEMOGLOBIN A1C - POCT INTERFACED Routine 09/19/2020 3:16 PM CDT MICROALB/CREAT RATIO URINE RANDOM PANEL Routine 09/19/2020 2:48 PM CDT Type 1 diabetes mellitus without complication, with long-term current use of insulin (HCC) TISSUE TRANSGLUTAMINASE AB IGA Routine 09/19/2020 2:41 PM CDT Type 1 diabetes mellitus without complication, with long-term current use of insulin (HCC) TSH Routine 09/19/2020 2:41 PM CDT Type 1 diabetes mellitus without complication, with long-term current use of insulin (HCC) LIPID PROFILE Routine 09/19/2020 2:41 PM CDT Type 1 diabetes mellitus without complication, with long-term current use of insulin (HCC) documented in this encounter Results * (ABNORMAL) HEMOGLOBIN A1C - POCT INTERFACED (09/19/2020 3:16 PM CDT) Hemoglobin A1C POCT 11.8(H) 3.4 - 6.1 % 09/19/2020 3:12 PM CDT [facility] Estimated Average Glucose 292 mg/dL 09/19/2020 3:12 PM CDT [facility] Blood BLOOD SPECIMEN / Unknown 09/19/2020 3:16 PM CDT 09/19/2020 3:12 PM CDT Kory Lopez PLASTIC MIXER-CAMERA SYSTEMS ENGINEER LAB - POINT OF CARE ORDERABLES Performing Organization Address City/State/[facility] Co de Phone Number [facility] [address] [place] [address] * MICROALB/CREAT RATIO URINE RANDOM PANEL (09/19/2020 2:48 PM CDT) Creatinine Urine 46.05 mg/dL 09/20/20 1:[address] [facility] Microalbumin Urine 0.6 mg/dL 09/20/2020 1:[address] [facility] Microalbumin/Crea tinine Ratio 09/20/2020 1:[address] [facility] Comment:13 mg/g Urine URINE SPECIMEN OBTAINED BY CLEAN CATCH PROCEDURE / Unknown Collection / Unknown 09/19/2020 2:48 PM CDT 09/19/2020 2:57 PM CDT Kory Lopez APRN-CAMERA SYSTEMS ENGINEER LAB - URINE JOSE ABELINO ORDERABLES Performing Organization Address [facility] de Phone Number [facility] [address] [place] [address] * TSH (09/19/2020 2:41 PM CDT) [facility] TSH 1.41 0.35 - 4.95 uIU/mL 09/19/2020 3:47 PM CDT [facility] Blood BLOOD SPECIMEN / Unknown Venipuncture / Unknown 09/19/2020 2:41 PM CDT 09/19/2020 2:57 PM CDT Kory Lopez APRN-CAMERA SYSTEMS ENGINEER LAB - CHEMISTRY ORDERABLES Performing Organization Address [facility] de Phone Number [facility] [address] [place] [address] * TISSUE TRANSGLUTAMINASE AB IGA (09/19/2020 2:41 PM CDT) [facility] TTG Antibody IgA <2 0 - 3 U/mL 09/20/2020 2:09 PM CDT [facility] ([facility]) Comment: ?Negative ?0 - ??3 ?Weak Positive ?? 4 - 10 ?Positive ? >10 Tissue Transglutaminase (tTG) has been identified as the endomysial antigen. ??Studies have demonstr- ated that endomysial IgA antibodies have over 99% specificity for gluten sensitive enteropathy. Blood BLOOD SPECIMEN / Unknown Venipuncture / Unknown 09/19/2020 2:41 PM CDT 09/19/2020 2:57 PM CDT Narrative [facility] ([facility]) - 09/20/2020 2:09 PM CDT Performed at: ??01 - [facility] [address] [place], [place] ??[id number] Table And Desk Finisher: Justo Johnson PhD, Phone: ??[phone] Kory Lopez APRN-CAMERA SYSTEMS ENGINEER LAB - SEROLOGY ORDERABLES [facility] ([facility]) [address] [place] [address] * (ABNORMAL) LIPID PROFILE (09/19/2020 2:41 PM CDT) Cholesterol 239(H) <170 mg/dL 09/19/2020 3:26 PM CDT [facility] Triglycerides 211(H) <150 mg/dL 09/19/2020 3:26 PM CDT [facility] HDL Cholesterol 80 >40 mg/dL 0 3:26 PM CDT [facility] LDL Calculated 117(H) <100 mg/dL 09/19/2020 3:26 PM CDT [facility] VLDL Calculated 42(H) 12 - 38 mg/dL 09/19/2020 3:26 PM CDT [facility] Chol HDL Ratio 3.0 <=5.0 09/19/2020 3:26 PM CDT [facility] Blood BLOOD SPECIMEN / Unknown Venipuncture / Unknown 09/19/2020 2:41 PM CDT 09/19/2020 2:57 PM CDT Narrative [facility] - 09/19/2020 3:26 PM CDT Lipid Profile Comment: Adult references ranges are the recommendation of the [place] [employer] , for those patients >18 [...] may alter some of these results. Kory TAI LAB - CHEMISTRY ORDERABLES [facility] [address] [phone] documented in this encounter Visit Diagnoses Diagnosis Type 1 diabetes mellitus without complication (HCC)- Primary Type I (juvenile type) diabetes mellitus without mention of complication, not stated as uncontrolled Type 1 diabetes mellitus without complication, with long-term current use of insulin (HCC) * Assessment & Plan Note - Kory Lopez APRN-CNP - 09/19/2020 11:59 PM CDT Associated Problem(s): Type 1 diabetes mellitus without complication (HCC) 1) adults to witness blood sugar checks [...] 10) return in 2 months for Getachew documented in this encounter Care Teams Application Chemist Relationship Specialty Start Date End Date Alvarez Prabhakar MD [address] [place] [phone] PCP - General 12/12/11 documented as of this encounter
--- OUTSIDE RECORDS SUMMARY | 2024-11-22 05:19 | XMS_ITS | Encounter Summary ---
Author Organization [facility] Health Address [address] [facility] [place] [address] Care Team Providers Care Expander Name Role Phone Alvarez Prabhakar MD Primary Care Provider [phone] Encounter Details Date Type Department Care Team (Latest Contact Info) Description 04/15/2022 Travel Social History Tobacco Use Types Packs/Day [...] on filedocumented in this encounter Care Teams Expander Relationship Specialty Start Date End Date Alvarez Prabhakar MD [address] [place] [phone] PCP - General 12/12/11 documented as of this encounter
--- OUTSIDE RECORDS SUMMARY | 2024-11-22 05:19 | XMS_ITS | Encounter Summary ---
Author Organization [facility] Address [address] [place] [address] Care Team Providers Care Stamp Analyst Name Role Phone Alvarez Prabhakar MD Primary Care Provider [phone] Encounter Details Date Type Department Care Team (Late st Contact Info) Description 11/21/2020 Orders Only [facility] Pediatrics - Diabetes [facility] [address] [place] [address] Kory Lopez APRN-CRANE MANAGER [address] [place] [phone] Type 1 diabetes mellitus without complication (HCC) [...] COVID-19? Unable to assess 10/22/2020 3:50 PM OFFLINE EDITOR documented as of this encounter Plan of Treatment Scheduled Orders Name Type Priority Associated Diagnoses Orde r Schedule HEMOGLOBIN A1C - POCT (IP) BEAKER Point of Care Testing Routine Type 1 diabetes mellitus without complication (HCC) 1 Occurrences starting 11/21/2020 until 11/16/2021 documented as of this encounter Visit Diagnoses Diagnosis Type 1 diabetes mellitus without complication (HCC)- Primary Type I (juvenile type) diabetes mellitus without mention of complication, not stated as uncontrolled documented in this encounter Care Teams Stamp Analyst Relationship Specialty Start Date End Date Alvarez Prabhakar MD [address] [place] [phone] PCP - General 12/12/11 documented as of this encounter
--- OUTSIDE RECORDS SUMMARY | 2024-11-22 05:19 | XMS_ITS | Encounter Summary ---
Author Organization [facility] Address [address] [facility] [place] [address] Care Team Providers Care Flight Coordinator Name Role Phone Alvarez Prabhakar MD Primary Care Provider [phone] Encounter Details Date Type Department Care Team (Late st Contact Info) Description 04/29/2021 Orders Only [facility] Pediatrics - Diabetes Mgmt [address] [place] [phone] Brendan Zafar MD [address] [place] [phone] Type 1 diabetes mellitus without complication (HCC) [...] uncontrolled documented in this encounter Care Teams Flight Coordinator Relationship Specialty Start Date End Date Alvarez Prabhakar MD [address] [place] [address] PCP - General 12/12/11 documented as of this encounter
--- OUTSIDE RECORDS SUMMARY | 2024-11-22 05:19 | XMS_ITS | Encounter Summary ---
Author Organization [facility] Address [address] [facility] [address] [place] [address] Care Team Providers Care Line Tester Name Role Phone Alvarez Prabhakar MD Primary Care Provider [phone] Reason for Visit * Reason Comments Refill Request Encounter Details Date Type Department Care Team (Late st Contact Info) Description 09/09/2021 Refill [facility] Pediatrics - Diabetes [address] [address] Brendan Zafar MD [address] [place] [phone] Refill Request Social History Tobacco Use Types [...] uncontrolled documented in this encounter Care Teams Line Tester Relationship Specialty Start Date End Date Alvarez Prabhakar MD [address] [place] [address] PCP - General 12/12/11 documented as of this encounter
--- OUTSIDE RECORDS SUMMARY | 2024-11-22 05:19 | XMS_ITS | Encounter Summary ---
Author Organization [facility] Address [address] [place] [address] Care Team Providers Care Active Directory Engineer Name Role Phone Alvarez Prabhakar MD Primary Care Provider [phone] Reason for Visit * Reason Comments Diabetes Encounter Details Date Type Department Care Team (Late st Contact Info) Description 11/21/2020 1:10 PM ELECTRICAL EQUIPMENT TESTER - 11/21/2020 11:59 PM ELECTRICAL EQUIPMENT TESTER [facility] [address] [place] [address] Kory Lopez, WENDI-SAMPLER TESTER [address] [place] [id number] Discharge Disposition: Home or Self Care Social [...] COVID-19? No / Unsure 11/21/2020 1:09 PM ELECTRICAL EQUIPMENT TESTER documented as of this encounter Last Filed Vital Signs Vital Sign Reading Time Taken Comments Blood Pressure 126/82 11/21/2020 1:22 PM ELECTRICAL EQUIPMENT TESTER Pulse - - Temperature - - Respiratory Rate - - Oxygen Saturation - - Inhaled Oxygen Concentration - - Weight 58.3 kg (128 lb 8.5 oz) 11/21/2020 1:22 P M ELECTRICAL EQUIPMENT TESTER Height 159.5 cm (5' 2.8 ) 11/21/2020 1:22 PM ELECTRICAL EQUIPMENT TESTER Body Mass Index 22.92 11/21/2020 1:22 PM ELECTRICAL EQUIPMENT TESTER Body Mass Index Percentile 74.87% 11/21/2020 1:2 2 PM ELECTRICAL EQUIPMENT TESTER Growth Chart: [facility] (Girls, 2- 20 Years) documented in this encounter Discharge Instructions * Patient Instructions* Kory Lopez APRN-CNP - 11/21/2020 1:47 PM ELECTRICAL EQUIPMENT TESTER 1) no changes today 2) keep up the great work 3) return in 3 months for Getachew 4) call once you receive your dexcom, or if you don't receive in a couple of weeks TRICAL EQUIPMENT TESTER documented in this encounter Medications at Time [...] Kit 0 08/18/2012 Blood Glucose Monitoring Suppl (inMEDIA CorporationTOUCH VERIO IQ SYSTEM) w/Device KIT Use 1 [...] blood glucose monitoring 4-6 times/day. 200 Each 08/04/2016 05/22/2023 ACCU-CHEK SMARTVIEW test stripIndications:Type 1 diabetes mellitus without complication, with long-term current use of insulin (HCC) USE TO TEST BLOOD SUGAR 4 TO 6 TIMES DAILY 200 strip 11 12/15/2019 10/24/2022 acetone,urine, (KETOSTIX) stripIndications:Type 1 diabetes mellitus without complication (HCC) Use as needed (use when blood sugar is greater than 250 or when ill. ) 100 Strip 11 04/21/2017 04/15/2022 BASAGLAR KWIKPEN (BASAGLAR) pen Administer 30 units daily. Allow 2 unit prime. 15 mL 4 10/30/2020 12/17/2020 glucagon (GLUCAGON EMERGENCY) injection Inject 1 mg [...] 1 diabetes mellitus without complication (HCC) Inject 30 Units subcutaneously at bedtime 10 mL 5 10/26/2020 12/17/2020 Insulin Lispro (HUMALOG KWIKPEN) 100 UNIT/ML Use up to 35 units per day. 1 unit for every 14 grams of carbohydrate. 4 Pen 5 11/21/2020 03/04/2021 Insulin Pen Needle (BD PEN NEEDLE DRAKE U/F) 32G X 4 MM MISC Use 4-6 Each once daily 200 Each 11/21/2020 08/03/2023 Insulin Pen Needle (BD PEN [...] 10/08/2020 08/19/2021 documented as of this encounter Progress Notes * YannickKory stokes, TURN OPERATOR-SAMPLER TESTER - 11/21/2020 1:29 PM CST Images from the original note were not included. Pediatric Diabetes Clinic Follow-Up Note [facility] Anaid Dimas and her mother were in our Pediatric Endocrinology clinic at [facility] on 11/21/2020. She is a 15 year old 1 month old who has: Problem Type 1 Diabetes Mellitus Without Complication Diagnosed 08/17/2012 Anaid???s current treatment regimen is as follows: Insulin Brand/Type:humalog Delivery Device:kwikpen Insulin to Carbohydrate Ratios:1:10 Correction Dose: 1 per 40 over 150 basaglar Dose:30 Injection Sites and Compliance:given by mother, herself, in her buttocks, thighs, stomach, before meals Average Daily Total: 66 units Other Medications: none Interval History: Significant for no issues. She has experienced no issues related to diabetes management since our past visit. Diabetes Self-Management: Anaid checks her blood glucose 3-4 times per day using a verio meter.Per [...] blood glucose range is 80-150. Anaid experiences 1-2 lows per week that are sensed when the blood sugar is less than 80. Aniadfeels the following symptoms when he/she is hypoglycemic: shaking and fatigue. Low blood sugars are treated with juice. This patient has glucagon and She does not wear her Medic- Alert tag. Anaid checks urine for ketones when glucose >250 and ill. Past Medical History: Social History: Social History Social History Narrative Social History: Anaid lives with mother and grandmother. Goes to father's every other weekend. She is in the 10th grade at [employer] and is achieving average grades, IEP. She has an in-tact diabetes management plan for school. Anaid has good friends and for extracurricular activity Anaid enjoys social media and art. Anaid Dimas expresses feelings of acceptance regarding living with diabetes. Review of Systems: General: sleeping well, good energy, naps 2 hours during the day ENT: normal vision, some dental sensitivity, fillings a couple months ago Skin: normal Cardiorespiratory: normal Gastrointestinal: normal Genitourinary: no nocturia, LMP one month ago, regular Endocrine: no fatigue or temperature intolerance Psychiatric: normal Neurologic: no headaches or tremors, normal Musculoskeletal: No muscle weakness, No joint pain and normal range of motion Physical Examination: BP 126/82 Ht 1.595 m (5' 2.8 ) Wt 58.3 kg (128 lb 8.5 oz) LMP 10/11/2018 (Approximate) BMI 22.92 kg/m?? Height: 159.5 cm (5' 2.8 ) General: alert and oriented; well-appearing Eyes: Normal- EOM intact, normal fundi HEENT: Normal Neck: Normal- thyroid not enlarged Chest/Breast: Normal Lungs: Clear to auscultation, unlabored breathing Heart: Normal PMI, regular rate & rhythm, normal S1,S2, no murmurs, rubs, or gallops Abdomen: Normal scaphoid appearance, soft, non-tender, without organ enlargement or masses. Genitourinary: not examined Musculoskeletal: Normal symmetric bulk and strength Lymphatic: No abnormally enlarged lymph nodes. Skin/Hair/Nails: No rashes or abnormal dyspigmentation Neurologic: Mental status normal, DTR 3+, normal strength and tone, normal gait Laboratory Data: Hospital Encounter on 11/21/20 HEMOGLOBIN A1C - POCT INTERFACED Result Value Ref Range Hemoglobin A1C POCT 8.6 (H) 3.4 - 6.1 % Estimated Average Glucose 200 mg/dL 14-Day Blood Glucose Statistics: Pre-Breakfast Pre-Lunch Pre-Dinner Bedtime Other Low 66 43 61 57 High 341 281 274 228 ~Average~ 180 190 180 160 Assessment and Management Plan: Anaid's family responded above my expectations from our past visit, and Anaid is now on the road to very good diabetes control. They have ordered her dexcom glucose sensor and will call us once they have placed it on. I applauded their efforts and encouraged continued efforts. Type 1 diabetes mellitus without complication 1) no changes today 2) keep up the great work 3) return in 3 months for Getachew 4) call once you receive your dexcom, or if you don't receive in a couple of weeks Of the 45 minutes spent with Anaid, 35 minutes were spent discussing HgbA1c, hypoglycemia, ketosis, exercise, control, glucagon, sick days, driving, control and complications, blood glucose monitoring and parental supervision Follow-Up: Return in about 3 months (around 02/19/2021) for Getachew. ABIAD Clarke CC: Alvarez Prabhakar MD [address] [place] [address] [address] / [facility] [id number] Date: 11/21/2020 1:29 PM TRICAL EQUIPMENT TESTER documented in this encounter Plan of Treatment Not on file documented as of this encounter Procedures Procedure Name Priority Date/Time Associated Diagnosis Comments HEMOGLOBIN A1C - POCT INTERFACED Routine 11/21/2020 1:21 PM ELECTRICAL EQUIPMENT TESTER documented in this encounter Results * (ABNORMAL) HEMOGLOBIN A1C - POCT INTERFACED (11/21/2020 1:21 PM ELECTRICAL EQUIPMENT TESTER) Hemoglobin A1C POCT 8.6(H) 3.4 - 6.1 % 11/21/2020 1:32 PM ELECTRICAL EQUIPMENT TESTER [facility] Estimated Average Glucose 200 mg/dL 11/21/2020 1:32 PM ELECTRICAL EQUIPMENT TESTER [facility] Blood BLOOD SPECIMEN / Unknown 11/21/2020 1:21 PM ELECTRICAL EQUIPMENT TESTER 11/21/2020 1:32 PM ELECTRICAL EQUIPMENT TESTER [facility] - POINT OF CARE ORDERABLES [facility] [address] [place] [address] documented in this encounter Visit Diagnoses Diagnosis Type 1 diabetes mellitus without complication (HCC) Type I (juvenile type) diabetes mellitus without mention of complication, not stated as uncontrolled * Assessment & Plan Note - Kory Lopez APRN-CNP - 11/21/2020 11:59 PM ELECTRICAL EQUIPMENT TESTER Associated Problem(s): Type 1 diabetes mellitus without complication (HCC) 1) no changes today 2) keep up the great work 3) return in 3 months for Getachew 4) call once you receive your dexcom, or if you don't receive in a couple of weeks TRICAL EQUIPMENT TESTER documented in this encounter Care Teams Active Directory Engineer Relationship Specialty Start Date End Date Alvarez Prabhakar MD [address] [place] [id number] PCP - General 12/12/11 documented as of this encounter
--- OUTSIDE RECORDS SUMMARY | 2024-11-22 05:19 | XMS_ITS | Encounter Summary ---
Author Organization [facility] Address [address] [place] [address] Care Team Providers Care All Source Collection Manager Name Role Phone Alvarez Prabhakar MD Primary Care Provider [phone] Reason for Visit * Reason Onset Date Comments MEDICATION REFILL 06/17/2021 Encounter Details Date Type Department Care Team (Late st Contact Info) Description 06/17/2021 Refill [facility] Pediatrics - Diabetes [address] [address] Brendan Zafar MD [address] [place] [phone] MEDICATION REFILL Social History Tobacco Use Types [...] encounter Miscellaneous Notes * Telephone Encounter - Lyric Ardon RN - 06/17/2021 2:58 PM CDT I called Aniad's mother to let her know that formulary prefers Basaglar, Anaid is currently taking 30 units basal insulin daily. I will request refill. documented in this encounter Plan of Treatment Not on file documented as of this encounter Visit Diagnoses Not on filedocumented in this encounter Care Teams All Source Collection Manager Relationship Specialty Start Date End Date Alvarez Prabhakar MD [address] [place] [address] PCP - General 12/12/11 documented as of this encounter
--- OUTSIDE RECORDS SUMMARY | 2024-11-22 05:19 | XMS_ITS | Encounter Summary ---
Author Organization [facility] Address [address] [address] Care Team Providers Care Panel Beater Name Role Phone Alvarez Prabhakar MD Primary Care Provider [phone] Encounter Details Date Type Department Care Team (Late st Contact Info) Description 09/21/2020 Telephone [facility] Pediatrics - Endocrinology [address] [place] [address] Kory Lopez APRN-FINAL COAT SPRAYER [address] [place] [address] Social History Tobacco Use Types Packs/Day Years [...] PM CDT documented as of this encounter Miscellaneous Notes * Telephone Encounter - Magi Turner RN - 09/21/2020 2:49 PM CDT Diabetes Sick Call Patient: Anaid Dimas Date: 09/21/2020 Current Blood Glucose: 557 @1330 512 @1430 Current Ketone result: negative Last insulin given: Humalog: Dose 12 units (snack and correction) Time 1330 Symptoms: none Recent Illness: denies Plan: Push sugar free fluid. Recheck blood glucose and urine ketones in two hours. Call back if moderate-large ketones or vomiting occurs We reviewed bgs. See flowsheet. Mom reports spikes in afternoon bgs. She states for breakfast Anaid is eating 2 cups of frosted flakes, milk, and bananas. I asked her to try to change breakfast from sugary cereal and call us back with update bgs. Mom states they will attempt to change breakfast foods and keep us updated. documented in this encounter Plan of Treatment Not on file documented as of this encounter Visit Diagnoses Not on filedocumented in this encounter Additional Health Concerns Infection Onset Date Last Indicated Resolved Time COVID-19 Under Investigation 03/03/2021 03/03/2021 03/03/2021 11:11 AM CDT documented as of this encounter Care Teams Panel Beater Relationship Specialty Start Date End Date Alvarez Prabhakar MD [address] [place] [address] PCP - General 12/12/11 documented as of this encounter
--- OUTSIDE RECORDS SUMMARY | 2024-11-22 05:19 | XMS_ITS | Encounter Summary ---
Author Organization [facility] Health Address [address] [place] [address] Care Team Providers Care Bed And Breakfast Innkeeper Name Role Phone Alvarez Prabhakar MD Primary Care Provider [phone] Reason for Visit * Reason Comments Vomiting Once today and once yesterday HIGH BLOOD SUGAR dad reports 600 bloo d sugar. Pt reports she hasnt taken her insulin since thursday * Auth/Cert Specialty Diagnoses / Procedures Referred By Fan medina Referred To Contact Referral ID Status Reason Start Date Expiration Date Visits Re quested Visits Authorized [id number] 1 1 Encounter Details Date Type Department Care Team (Latest Contact Info) Description 03/03/2021 9:20 AM CDT - 03/04/2021 7:10 PM CDT Hospital Encounter CG [address] [place] [address] Luigi Gil MD [address] [place] [id number] David Rodriguez MD [address] [place] [id number] Endocrinology Discharge Disposition: Home or Self Care [...] Sign Reading Time Taken Comments Blood Pressure 116/80 03/04/2021 6:15 PM CDT Pulse 98 03/04/2021 6:15 PM CDT Temperature 36.8 ??C (98.3 ??F) 03/04/2021 6:15 PM CD T Respiratory Rate 18 03/04/2021 6:15 PM CDT Oxygen Saturation 100% 03/04/2021 6:15 PM CDT Inhaled Oxygen Concentration - - Weight 53.7 kg (118 lb 6.2 oz) 03/04/20 21 12:00 AM CDT Height 157.5 cm (5' 2 ) 03/04/2021 10:0 0 AM CDT Body Mass Index 21.65 03/04/2021 12:00 AM CDT Body Mass Index Percentile 62.23% 03/04 10:00 AM CDT Growth Chart: [facility] (Girls, 2- 20 Years) documented in this [...] 03/04/2021 documented as of this encounter Discharge Summaries * Brendan Zafar MD - 03/04/2021 6:59 PM CDT Images from the original note were not included. Attending Physician: David Rodriguez MD Office 03/04/2021 6:59 PM Pediatric Discharge Summary Pt. Name: Anaid Dimas : 2005 Attending Physician : David Rodriguez MD Admission Date: 03/03/2021 Discharge Date: 03/04/2021 Hospital Course: 15 year old female with type 1 DM admitted to the PICU due to DKA with VBG remarkable for pH of 6.93, bicarb of 5, and anion gap of 32 due to forgetting to take her insulin. She was transitioned to 15 units lantus in the A.M, with plans to start her home regimen of lantus 30 units qhs, with 1:10 carb ratio, and correction 1:40 for every glucose over 150. She was discharged on 03/04 in stable condition. During her admission, patient was started on an insulin drip and two-bag system and her glucoses improved, her anion gap gradually closed, and her acidosis improved. She became more alert and interactive. Her glucoses were maintained ~150-250 while on the insulin drip. After her anion gap closed, she was given 15 units Lantus and was transitioned back to her home insulin regimen, outlined above. She was transferred to general medicine for further consults including nutrition, diabetes education, and social director. Patient did have some insurance complications, thus was turned away from clinic a couple of weeks ago. [employer] Supervisor to ensure follow up in clinic after discharge. Discharge Diagnosis(es): Active Problems: Diabetic ketoacidosis without coma associated with type 1 diabetes mellitus Condition on Discharge: Good Consultations: support services coordinator Diagnostic studies: None Procedures: None Relevant Labs: See hospital course Discharge Physical Exam (relevant findings include): Physical Exam Constitutional: General: She is not in acute distress. Appearance: She is not ill-appearing. HENT: Head: Normocephalic and atraumatic. Nose: Nose normal. Mouth/Throat: Mouth: Mucous membranes are moist. Eyes: Extraocular Movements: Extraocular movements intact. Conjunctiva/sclera: Conjunctivae normal. Cardiovascular: Rate and Rhythm: Normal rate and regular rhythm. Pulmonary: Effort: Pulmonary effort is normal. Musculoskeletal: Cervical back: Normal range of motion. Pending Results: None Discharge Medications: Current Discharge Medication List CONTINUE taking these medications which have CHANGED Instructions Authorizing Provider glucagon injection What changed: Another medication with the same name was removed. Continue taking this medication, and follow the directions you see here. Commonly known as: Glucagen Quantity Dispensed: 2 kit Inject 1 mg into muscle as directed for severe low blood sugar reaction. Breana Olivas MD * HumaLOG KwikPen 100 UNIT/ML What changed: additional instructions Quantity Dispensed: 4 Pen 1 unit for every 10 grams of carbohydrate. Donna Glover MD * insulin lispro 100 UNIT/ML pen What changed: You were already taking a medication with the same name, and this prescription was added. Make sure you understand how and when to take each. Commonly known as: HumaLOG;ADMelog Inject 0 (zero) Units to 10 (ten) Units subcutaneously 3 times daily before meals 1 unit for every 40 over 150 Donna Glover MD * This list has 2 medication(s) that are the same as other medications prescribed for you. Read thedirections carefully, and ask your doctor or other care provider to review them with you. CONTINUE taking these medications which have NOT CHANGED Instructions Authorizing Provider * Accu-Chek FastClix Lancets Quantity Dispensed: 200 Each Use for blood glucose monitoring 4-6 times/day. ABIDA Clarke * OneTouch Delica Lancets 33G Misc Quantity Dispensed: 200 Each Use 1 Each as directed ABIDA Clarke Accu-Chek Drake SmartView w/Device Kit kit Quantity Dispensed: 1 Kit Use for blood glucose monitoring. ABIDA Barrera * Accu-Chek SmartView test strip Generic drug: blood glucose Quantity Dispensed: 200 strip USE TO TEST BLOOD SUGAR 4 TO 6 TIMES DAILY ABIDA Clarke * OneTouch Verio test strip Generic drug: blood glucose Quantity Dispensed: 200 strip USE TO TEST BLOOD SUGAR 5-9 TIMES DAILY ABIDA Clarke * acetone(urine) strip Commonly known as: Ketostix Quantity Dispensed: 100 Strip Use as needed (use when blood sugar is greater than 250 or when ill. ) ABIDA Clarke * acetone(urine) strip Commonly known as: Ketostix Quantity Dispensed: 100 strip Use as directed for urine ketone checks if blood sugar above 250 or if ill. Dispense one bottle forschool and one for home. ABIDA Barrera injection device-insulin device Commonly known as: NovoPen [...] Use 4-6 Each once daily ABIDA Clarke insulin syringe-needle 31G X 5/16 0.3 ML syringe Commonly known as: Bd Ultrafine Ii Quantity Dispensed: 100 Each USE FOR INJECTION DAILY Breana Olivas MD Lantus SoloStar pen Generic drug: insulin glargine Quantity Dispensed: 15 mL Inject 30 (thirty) Units subcutaneously at bedtime Breana Olivas MD BlackStratus IQ System w/Device Kit Quantity Dispensed: 2 kit Use 1 kit as directed ABIDA Clarke oxybutynin 5 MG tablet Commonly known as: Ditropan Quantity Dispensed: 180 tablet Take 1 tablet by mouth 3 times daily ABIDA Cates * This list has 8 medication(s) that are the same as other medications prescribed for you. Read thedirections carefully, and ask your doctor or other care provider to review them with you. STOP taking these medications fluconazole 150 MG tablet Commonly known as: Diflucan insulin aspart cartridge Commonly known as: NovoLOG PENFILL insulin aspart pen Commonly known as: NovoLOG FLEXPEN Discharge Procedure Orders Why you were hospitalized Order Specific Question Answer Comments Your discharge diagnosis is: DKA (diabetic ketoacidoses) [542796] Follow up with Primary Care Provider (PCP) Our records show your Primary Care Provider (PCP) is Alvarez Prabhakar MD. Order Specific Question Answer Comments Follow Up Instructions: Follow up in one week Special diet instructions Carb Counting diet Activity as tolerated Rest today, and increase activity level tomorrow as tolerated. When to call provider Call Anaid's Registered Nurse Maternal Child if you have questions or concerns, or for any of the following issues: -- increased shortness of breath -- for pain that gets worse or does not get better after taking pain medication(s) as directed -- if you see a lot of bleeding from the incision or IV site -- if the incision or IV site looks infected (red, swollen, warm to the touch, or non-clear, foul-smelling drainage) -- if Anaid has nausea or vomiting or cannot eat or drink Follow up with provider Order Specific Question Answer Comments Follow Up Instructions: Follow up with Endocrinology within a month Special instructions Lantus 30 U daily Humalog/Novolog - 1 U for every 10 grams carbohydrates - 1 U for every glucose level 40 over 150 Yaya De Souza DO CC: Alvarez Prabhakar MD [address] [place] [address] #5 / [facility] [id number] documented in this encounter Medications at Time of Discharge Medication Sig Dispensed Refills Start Date End Date acetone,urine, (KETOSTIX) stripIndications:Typ e 1 diabetes mellitus without complication (HCC) Use as directed for urine ketone checks if blood sugar above 250 or if ill. Dispense one bottle for school and one for home. 100 strip 3 04/12/2018 Blood Glucose Monitoring Suppl (ACCU-CHEK DRAKE SMARTVIEW) W/DEVICE KIT kitIndications:Diabe olesya mellitus type 1 (HCC) Use for blood glucose monitoring. 1 Kit 0 08/18/2012 Blood Glucose Monitoring Suppl (ONETOUCH VERIO IQ SYSTEM) w/Device KIT Use 1 kit as directed 2 kit 12/16/2019 glucagon (GLUCAGON EMERGENCY) injectionIndications :Type 1 diabetes mellitus without complication (HCC) Inject 1 mg into muscle as directed for severe low blood sugar reaction. 2 kit 07/11/2019 injection device-insulin (NOVOPEN ECHO) deviceIndications:Ty pe 1 diabetes mellitus without complication (HCC) Use for insulin delivery. 1 device 1 10/20/2018 insulin syringe-needle (BD ULTRAFINE II) 31G X 5/16 0.3 ML syringe USE FOR INJECTION DAILY 100 Each 04/17/2020 ACCU-CHEK FASTCLIX LANCETS Use for blood glucose monitoring 4-6 times/day. 200 Each 11 08/04/2016 05/22/2023 ACCU-CHEK SMARTVIEW test stripIndications:Typ e 1 diabetes mellitus without complication, with long-term current use of insulin (HCC) USE TO TEST BLOOD SUGAR 4 TO 6 TIMES DAILY 200 strip 11 12/15/2019 10/24/2022 acetone,urine, (KETOSTIX) stripIndications:Typ e 1 diabetes mellitus without complication (HCC) Use as needed (use when blood sugar is greater than 250 or when ill. ) 100 Strip 11 04/21/2017 04/15/2022 insulin glargine (LANTUS SOLOSTAR) pen Inject 30 (thirty) Units subcutaneously at bedtime 15 mL 5 12/17/2020 03/12/2021 Insulin Lispro (HUMALOG KWIKPEN) 100 UNIT/ML 1 unit for every 10 grams of carbohydrate. 4 Pen 5 03/04/2021 03/12/2021 insulin lispro (HUMALOG;ADMELOG) 100 UNIT/ML pen Inject [...] TIMES DAILY 200 strip 4 10/08/2020 08/19/2021 oxybutynin (DITROPAN) 5 MG tablet Take 1 tablet by mouth 3 times daily 180 tablet 5 11/22/2020 06/20/2021 documented as of this encounter Progress Notes * Henna Carmona, RN - 03/04/2021 3:00 PM CDT Anaid's dad was present at the bedside during lunch at 1400 for education. Dad performed a carbohydrate count for her meal and calculated the insulin dose needed for her blood sugar and her carbohydrate count. Dad cleaned the top of the insulin pen, put a needle on the insulin pen, primed the needle, and turned the dial to the correct dose. He then injected the insulin, counted to ten seconds,and then withdrew the needle and placed it in the sharps container with minimal assistance. * Linda Torres RN - 03/04/2021 12:03 PM CDT I met with shea to discuss sick day education. He stated that Anaid spends every other weekend with him and that she typically does all of her diabetes care on her own. He said mom is currently outof town until Thursday. I reviewed the importance of parental supervision. I reviewed s/s of hyperglycemia and hypoglycemia. I reviewed ketone testing and when to test. I have also ordered ketone strips to the bedside and asked that they practice while inpatient. Dad agreed to do so. I also asked that he return demonstrate how to give an insulin injection with the bedtime RN, he agreed to this at lunch. I explained that we want them to call daily to review blood sugars until their follow up appointment. I am working with the social director to ensure insurance is covered at our facility and that she hasproper follow up. Dad verbalized understanding. * Neema Hinton OT - 03/04/2021 11:43 AM CDT Orders received for OT/PT eval and treat. Assesments deferred, will f/u as appropriate. Neema Hinton, PATRICKR/L [phone] * Linda Torres RN - 03/04/2021 10:25 AM CDT [employer] Note I met with Anaid Dimas [id number] for sick day diabetes home management education. Shea had just stepped out of the room. She presented in DKA after not taking insulin over the weekend while at dad's house. She states she is at her dads every other weekend and with mom during the week. Anaid was quiet during our interaction and did not give many details. She stated that she does have a dexcom, but it stopped working on Thursday so she just brought her ACCU-chek meter to her dad's house. I provided her with a log book and sick day guidelines. Discussed checking ketones when ill or BG is over 250. Anaid verbalized understanding. Anaid had presented to our clinic a few weeks ago and was turned away due to insurance so we areworking ensure she has follow up in a clinic after this admission. Linda Torres RN,BSN,CDE Diabetes Nurse Educator [facility] Office: [phone] * Rufino Liriano - 03/04/2021 7:07 AM CDT Images from the original note were not included. Pediatric Transfer Note 03/04/2021 7:07 AM Hospital Day: 1 Hospital Course Clinical status: Stable Accepting team: Endocrinology ICU Clinical Course: Anaid Dimas is a 15 year old female with past medical history of T1DM who presented with diabetic ketoacidosis. She was started on an insulin drip and two-bag system and her glucoses improved, her anion gap gradually closed, and her acidosis improved. She became more alert and interactive. Her glucoses were maintained ~150-250 while on the insulin drip. After her anion gap closed, she was given 15 units Lantus and was transitioned back to her home insulin regimen, outlined below. She was transferred to general medicine for further consults including nutrition, diabetes education, and social director. Patient's normal insulin regimen is reportedly 30 units of Lantus at night with a 1:10 carb ratio and SSI 1 per 40 >150 (placed on 50>150 in hospital). Current consultants: endocrinology Medications: Medications started during PICU admission: none Antibiotics (day x of x): none Medications being weaned/tapered: none Home medications continued: insulin Held or discontinued home medications: oxybutynin (held) PRNS: tylenol Important prior labs: A1c 8.9 Lines and devices: Vascular access: PIV Enteric tubes: none Other devices/accessories: none Devices/lines that have been removed: none Assessment & Plan Diabetic ketoacidosis without coma associated with type 1 diabetes mellitus Assessment: Anaid Dimas is a 15 year old female with type 1 diabetes mellitus with history ofnon-compliance who presents to the PICU in DKA. [...] milk. Recheck glucose 15 minutes later and ifstill decreased then repeat. - If < 70 and patient is unresponsive or seizing. Give glucagon 1 mg IM PRN. - VS 5x/day before meals, qHS and 0200 with glucose checks per diabetes orders - Daily weights ID: - Monitor for fevers or signs of infection Neuro/Pain: - Tylenol q4h PRN Activity: - PT/OT Social: - Consults to hospice educator, nutrition, social director Labs: Per endocrine team Access: PIV Subjective / Objective Physical Exam VS: BP 126/89 Pulse 117 Temp 98.2 ??F (Oral) Resp 24 Wt 53.7 kg (118 lb 6.2 oz) General: awake, alert, no apparent distress Head: normocephalic Eyes: Pupils: pupils equal, round, reactive to light EOM: normal Conjunctiva: conjunctiva normal Nose: normal Mouth / Oropharynx: Mucous membranes: moist Oropharynx: normal Neck: ROM: normal range of motion Cardiovascular: Rate: regular Rhythm: regular Capillary refill: < 2 seconds Pulmonary: Auscultation: clear to auscultation Aeration: good aeration Respiratory effort: no respiratory distress Abdominal: soft, flat Tenderness: none Distention: none Skin: Temp / Texture: warm, normal turgor Color: normal Rash: none Neurological: Orientation: oriented to person, place and time Strength: normal Labs / Results No new results to review. Most recent glucose 150. CBG pH 7.34 pCO2 36 BE -5.8 Rufino Liriano DO * Rufino Liriano - 03/04/2021 6:56 AM CDT Physical Exam VS: BP 126/89 Pulse 117 Temp 98.2 ??F (Oral) Resp 24 Wt 53.7 kg (118 lb 6.2 oz) General: awake, alert, no apparent distress Head: normocephalic Eyes: Pupils: pupils equal, round, reactive to light EOM: normal Conjunctiva: conjunctiva normal Nose: normal Mouth / Oropharynx: Mucous membranes: moist Oropharynx: normal Neck: ROM: normal range of motion Cardiovascular: Rate: regular Rhythm: regular Capillary refill: < 2 seconds Pulmonary: Auscultation: clear to auscultation Aeration: good aeration Respiratory effort: no respiratory distress Abdominal: soft, flat Tenderness: none Distention: none Skin: Temp / Texture: warm, normal turgor Color: normal Rash: none Neurological: Orientation: oriented to person, place and time Strength: normal Labs / Results No new results to review. Most recent glucose 150. CBG pH 7.34 pCO2 36 BE -5.8 * Rufino Liriano - 03/04/2021 6:52 AM CDT Clinical status: Stable Accepting team: Endocrinology ICU Clinical Course: Anaid Dimas is a 15 year old female with past medical history of T1DM who presented with diabetic ketoacidosis. She was started on an insulin drip and two-bag system and her glucoses improved, her anion gap gradually closed, and her acidosis improved. She became more alert and interactive. Her glucoses were maintained ~150-250 while on the insulin drip. After her anion gap closed, she was given 15 units Lantus and was transitioned back to her home insulin regimen, outlined below. She was transferred to general medicine for further consults including nutrition, diabetes education, and social director. Patient's normal insulin regimen is reportedly 30 units of Lantus at night with a 1:10 carb ratio and SSI 1 per 40 >150 (placed on 50>150 in hospital). Current consultants: endocrinology Medications: Medications started during PICU admission: none Antibiotics (day x of x): none Medications being weaned/tapered: none Home medications continued: insulin Held or discontinued home medications: oxybutynin (held) PRNS: tylenol Important prior labs: A1c 8.9 Lines and devices: Vascular access: PIV Enteric tubes: none Other devices/accessories: none Devices/lines that have been removed: none * Zbigniew Simpson RN - 03/04/2021 2:32 AM CDT Anaid is a PICU UP! Level 3. Lights out at 2200 Problem: Glycemia Imbalance Goal: Continuum of care needs are met for Glycemic Management Outcome: Progressing Glucose checked Q1 and Q2 monitoring for fluid imbalances Problem: Safety/Fall Precautions Goal: Patient will remain free of physical injury Description: Instructed to call before getting out of bed. In appropriate bed Outcome: Progressing Problem: Safety/Fall Precautions Goal: Patient will be provided with an age appropriate safe environment Outcome: Progressing Oriented and frequently monitored Problem: Fluid and Electrolyte Imbalance Goal: Patient will maintain adequate fluid volume and electrolyte balance Outcome: Progressing Problem: Fluid and Electrolyte Imbalance Goal: Patient will exhibit signs of adequate hydration Outcome: Progressing Anaid is NPO but receiving IV fluids * Kevin Price MD - 03/03/2021 5:48 PM CDT Images from the original note were not included. Attending Physician: David Rodriguez MD Office 03/03/21 5:48 PM PCCM Overnight Services Note I provided overnight care to Anaid Dimas. This care was necessitated by the child's diabetic ketoacidosis in the setting of known insulin-dependent diabetes. -On 3L/m^2/d 2-bag method fluids with improvement in respiratory exam, chemistry values. Mental status improved with initial fluid resuscitation. -Acidemia mostly resolved with fluid and insulin. Urine ketones down to 1+. -Blood glucose now in mid-100s on insulin infusion. No bolus dose yet. Critical Care Time From 17.00 - 24.00 on 03/03/2021 : 30 minutes From 00.00 - 06:30 on 03/04/2021 : 30 minutes Kevin Price MD * Luis Angel Bender MD - 03/03/2021 12:59 PM CDT Images from the original note were not included. Critical Care Admission Note Anaid Dimas 03/03/2021 12:59 PM Hospital Day: 0 Clinical Course Anaid is a 15 y/o female with past medical history of Type 1 DM, admitted to the ICU due to DKA.Per mother, Anaid hasn't been very compliant with her insulin, though her last ICU admission was2017. Nevertheless, two days ago she went to father's house and hasn't used her insulin since, due to running out of needles. She developed vomiting yesterday and today and began feeling unwell, for which was brought to our ED. Upon arrival she was found somnolent, but able to answer questions, oriented in place and person but not in time, with Kussmaul breathing, initial blood glucose greater than 600, pH 6.93 on venous gas. She was given 1 liter normal saline bolus, started on insulin infusion at 0.1 units/kg/hr, and IVF's at 3,000/m2 on two bag system. Per history, she has had nosick contacts, no known COVID-19 exposure and no symptoms of other illnesses. Active Ambulatory Problems Diagnosis Date Noted ??? Type 1 diabetes mellitus without complication 08/18/2012 ??? Bladder dysfunction 11/22/2020 Resolved Ambulatory Problems Diagnosis Date Noted ??? No Resolved Ambulatory Problems No Additional Past Medical History Past Surgical History: Procedure Laterality Date ??? NEGATIVE SURGICAL HISTORY Objective BP 137/86 Pulse 138 Temp 98.4 ??F (Oral) Resp 28 Wt 54.7 kg (120 lb 9.5 oz) In: 396ml Out: 1,050 Review of Systems Constitutional: Negative. HENT: Negative. Eyes: Negative. Cardiovascular: Negative. Gastrointestinal: Positive for vomiting. Skin: Negative. Neurological: Somnolence Endo/Heme/Allergies: Positive for polydipsia. Psychiatric/Behavioral: Negative. Exam: General: well appearing, non-toxic, drowsy, but communicative, active, in no acute distress Head: NC/AT Eyes: sclera and conjunctiva clear, EOMI and PERRL, lids normal Oropharynx: mucous membranes are very dry, erythematous pharynx, no tonsillar enlargement Cardiovascular: tachy. rate, normal S1 and S2 and no murmur Chest: breath sounds symmetrical without rales or wheezes, kussmaul breathing Abdomen: soft, non-tender, non-distended and no hepatosplenomegaly or masses Musculoskeletal: No clubbing, cyanosis or edema Skin: no rashes, cap refill 3-4 seconds Neuro: Drowsy, but talkative, will answer questions, no focal deficits Lab/Other Information CBC: Recent Labs Component Name 03/03/21 0942 WBC 33.4* HGB 15.0 HCT 46.8 PLTCOUNT 386 BMP: Recent Labs Component Name 03/03/21 1215 03/03/21 0942 08/17/12 1905 08/17/12 1714 SODIUM 140 131* - 139 POTASSIUM 5.5* 6.8* - 4.4 CHLORIDE 109* 94* - 103 CO2 <5* 5* - 22 BUN 26.0* 28.0* - 18.8 CREATININE 0.95 0.87 - 0.39* GLUCOSE 363* 681* 64* 98 CALCIUM 9.81 10.58* - 10.41 HgA1C: 8.9% Hospital Problems Anaid is a 15 y/o female admitted to the PICU with known Type 1 DM, complicate by DKA and acute mental status changes, requiring close neurological, metabolic and hemodynamic monitoring. Since arriving to the PICU she has made good improvement, is talkative, alert, watching TV, hemodynamically stable. Resp: On RA, kussmaul breathing, compensating for metabolic acidosis, no oxygen requirement. CV: Tachycardic, prolonged cap refill, secondary to dehydration, though HDS otherwise, with evidence of sufficient cardiac output for end-organ perfusion. Watch for dysrhythmias. FEN/GI: NPO, H2 blockers. Currently on two bag method per DKA protocol, fluids at 3,000/m2 over 24 hours. Watch and replace electrolytes aggressively. Initial potassium elevated, normal corrected sodium. Avoid rapid decrease in glucose and maintain normonatremia. Insulin infusion at 0.1 unit/hg/hr.CBG and BMP every 4 hours, alternated every 2 hours. Endocrinology consult when ready to transition to bolus insulin. Heme/ID: COVID-19 negative, No infectious concerns. Neuro: Awake, alert, answers questions, will need close neuro-check Luis Angel Watson MD Pediatric Critical Care Fellow Associated attestation - David Rodriguez MD - 03/03/2021 3:47 PM CDT 03/03/21 3:46 PM I have seen and examined .Anaid. I have discussed her care with Dr. Arrington. I agree with the history, physical, assessment and plan as documented by Dr. Arrington. 15yo with known T1DM here with DKA after not taking insulin. MS quite good despite pH < 7. Already demonstrated some improvement in pH with treatment provided in the ED. Expect continued improvement but watching for cerebral edema and electrolyte disturbances. David Rodriguez MD PCCM Attending CCT 30 min * Rufino Liriano Aubrey - 03/03/2021 10:46 AM CDT Chief Complaint Vomiting (Once today and once yesterday ) and HIGH BLOOD SUGAR (dad reports 600 blood sugar. Pt reports she hasnt taken her insulin since thursday ) History of Present Illness Anaid Dimas is a 15 year old female with past medical history of T1DM who presents with diabetic ketoacidosis. Anaid has not taken any insulin for the last two days and has about two episodes of emesis over the last 24 hours. Afebrile. Associated symptoms including somnolence, poor PO and decreased UOP. Denies recent URI symptoms. No sick contacts. In [facility] ED, patient was found to have pH 6.93, bicarb 5, K 6.8, AG 32, and glucoses >600. She was given an NS bolus and started on an insulin drip and the two bag system. CBC showed leukocytosis to 33.4 with 6% bands and 70% neutrophils. UA has significant ketonuria and glucosuria. HCG negative. Given her degree of metabolic acidosis and somnolence, patient requires admission to PICU for close monitoring. Patient's normal insulin regimen is reportedly 30 units of Lantus at night with a 1:10 carb ratio. Immunizations are up to date. No known allergies. Last admission for DKA was September 2020. Review of Systems Constitutional: (-) fever, (+) appetite change, (-) weight loss Eyes: (-) eye redness, (-) eye itching ENT: Ears: (-) ear pain Nose: (-) rhinorrhea, (-) congestion Throat: (-) sore throat Cardiovascular: (-) chest pain, (-) palpitations Respiratory: (-) cough, (-) wheezing, (+) shortness of breath Gastrointestinal: (+) nausea, (+) vomiting, (-) diarrhea, (-) constipation, (-) abdominal pain Genitourinary: (+) decreased urine output Musculoskeletal: (-) swelling Skin: (-) rash Neurological: (-) headaches, (-) seizures Psychological/Behavioral: + somnolence Endocrine: (+) polydipsia Physical Exam VS: BP 134/78 Pulse 135 Temp 98.4 ??F (Oral) Resp 30 Wt 54.7 kg (120 lb 9.5 oz) SpO2 100% Height: No height on file for this encounter. Weight: 54.7 kg (120 lb 9.5 oz) 51 %ile (Z= 0.03) based on CDC (Girls, 2-20 Years) [id number] data using vitals from 03/03/2021. General: awake, alert, ill appearing Head: normocephalic Eyes: Pupils: pupils equal, round, reactive to light Discharge: none Nose: normal Mouth / Oropharynx: Mucous membranes: dry Oral cavity: cracked lips Oropharynx: erythema Neck: Adenopathy: none Cardiovascular: Rate: + tachycardia Rhythm: regular Murmur: no murmur Pulses: Radial: R - 2+, L - 2+ Capillary refill: < 2 seconds Pulmonary: Auscultation: clear to auscultation Aeration: good aeration Respiratory effort: subcostal retractions+ tachypnea + Kussmaul breathing Abdominal: soft Tenderness: none Bowel sounds: normal Musculoskeletal: Upper extremities: Swelling: none Lower extremities: Swelling: none Skin: Temp / Texture: warm Rash: none Integrity / Injury: intact / uninjured Neurological: Orientation: oriented to person, place and time Labs / Results BMP Na 131 (140 corrected) K 6.8 Cl 94 CO2 5 BUN 28.0 Cr 0.87 Gluc 681 Ca 10.58 AG 32 CBC WBC 33.4 H/H 15.0/46.8 Plt 386 Hgb A1c 8.9 UA 3+ glucose, 2+ ketones, 1+ blood with no RBCs HCG negative documented in this encounter H&P Notes * Brendan Zafar MD - 03/04/2021 8:34 AM CDT Images from the original note were not included. Pediatric Endocrine Attending Admit Note Attending physician: Brendan Zafar M.D. Office phone: [phone] 03/04/2021 8:36 AM Hospital Day: 2 I have seen Anaid Dimas on rounds today and have reviewed the findings with the resident. My findings (sexton elements and supplemental information) are as follows: Chief complaint: vomiting History of present illness: Anaid Dimas is a 15 year old girl with an 8-1/2 year history of type l diabetes mellitus complicated by: none who was admitted yesterday morning with severe diabetic ketoacidosis (see below) following a one day history of persistent vomiting (greater than 10 times according to father). She went to stay overnight with father two days prior to admission but forgot to bring her insulin. She developed persistent vomiting one day prior to admission. Upon arrival to this facility, she received an IV fluid bolus and was started on an insulin infusion. She was admitted to the Pediatric Intensive care unit due to the severity of her metabolic acidosis and level of awareness. Her vomiting, metabolic acidosis and hyperglycemia resolved over the subsequent 20 hours with conventional medical management. I was contacted about 6 am this morning by the pediatric housestaff in the PICU for recommendations transitioning her to subq insulin. I recommended giving Lantus 15 u this am (30 units tonite) and her usual mealtime insulin with corrective insulin. She remained a bit tachycardic this morning and IVF's at maintenance were started due to presumed remaining dehydration prior to transfer to the general son. She denied dizziness, weakness, pain, or nausea on my examination today. Her po intake has remained modest up till noontime.. She otherwise denies unexplained constitutional symptoms, including headaches, fever, rash, cough, sore throat, congestion, anorexia, diarrhea, constipation, polyuria, polydipsia, heat/cold intolerance, skin bruising, menstrual irregularity, or joint pain/redness/warmth or swelling. History ??? Delivery Method: ??? Gestation Age: 40 wks No NICU stay or intubation Past Medical History: Diagnosis Date ??? NEGATIVE PAST MEDICAL HISTORY - SEE PROBLEM LIST Past Surgical History: Procedure Laterality Date ??? NEGATIVE SURGICAL HISTORY Family History Problem Relation Name Age of Onset ??? Negative Family History Other DM, thyroid d/o Social History Social History Narrative Anaid lives with mother and grandmother. Goes to father's every other weekend. She is in the 10th grade at [employer] and is achieving average grades, IEP. She has an in-tact diabetes managementplan for school. Anaid has good friends and for extracurricular activity Anaid enjoys social media and art. Anaid Dimas expresses feelings of acceptance regarding living with diabetes. No current facility-administered medications on file prior to encounter. Current Outpatient Medications on File Prior to Encounter Medication Sig Dispense Refill ??? ACCU-CHEK FASTCLIX LANCETS Use for blood glucose monitoring 4-6 times/day. 200 Each 11 ??? ACCU-CHEK SMARTVIEW test strip USE TO TEST BLOOD SUGAR 4 TO 6 TIMES DAILY 200 strip 11 ??? acetone,urine, (KETOSTIX) strip Use as directed for urine ketone checks if blood sugar above 250 or if ill. Dispense one bottle for school and one for home. 100 strip 3 ??? acetone,urine, (KETOSTIX) strip Use as needed (use when blood sugar is greater than 250 or whenill. ) 100 Strip 11 ??? Blood Glucose Monitoring Suppl (ACCU-CHEK DRAKE SMARTVIEW) W/DEVICE KIT kit Use for blood glucose monitoring. 1 Kit 0 ??? Blood Glucose Monitoring Suppl ([employer] VERIO IQ SYSTEM) w/Device KIT Use 1 kit as directed 2 kit 0 ??? fluconazole (DIFLUCAN) 150 MG tablet Take one tablet today, if symptoms continue take second dose in 72 hours. (Patient not taking: Reported on 03/03/2021) 2 tablet 0 ??? glucagon (GLUCAGON EMERGENCY) injection Inject 1 mg into muscle as needed 2 mg 0 ??? glucagon (GLUCAGON EMERGENCY) injection Inject 1 mg into muscle as directed for severe low blood sugar reaction. 2 kit 0 ??? injection device-insulin (NOVOPEN ECHO) device Use for insulin delivery. 1 device 1 ??? insulin aspart (NOVOLOG FLEXPEN) pen 1 unit per 16 grams of carbohydrate with meals and snacks.15 mL 5 ??? insulin aspart (NOVOLOG PENFILL) cartridge Inject 1 unit per 18-20 grams of carbohydrates or asdirected. . Max daily dose 40 units. 1 Box 5 ??? insulin glargine (LANTUS SOLOSTAR) pen Inject 30 (thirty) Units subcutaneously at bedtime 15 mL5 ??? Insulin Lispro (HUMALOG KWIKPEN) 100 UNIT/ML Use up to 35 units per day. 1 unit for every 14 grams of carbohydrate. 4 Pen 5 ??? Insulin Pen Needle (BD PEN NEEDLE DRAKE U/F) 32G X 4 MM MISC Use 4-6 Each once daily 200 Each 11 ??? Insulin Pen Needle (BD PEN NEEDLE DRAKE U/F) 32G X 4 MM MISC Use 4-6 Each as directed Use for injections 4-6 times daily. 200 Each 11 ??? insulin syringe-needle (BD ULTRAFINE II) 31G X 5/16 0.3 ML syringe USE FOR INJECTION DAILY 100Each 0 ??? ONETOUCH DELICA LANCETS 33G MISC Use 1 Each as directed 200 Each 4 ??? ONETOUCH VERIO test strip USE TO TEST BLOOD SUGAR 5-9 TIMES DAILY 200 strip 4 ??? oxybutynin (DITROPAN) 5 MG tablet Take 1 tablet by mouth 3 times daily 180 tablet 5 Immunizations: Up to date ROS: as per HPI. The remainder of a comprehensive ROS was unrevealing Physical examination: Vitals: 03/04/21 0700 03/04/21 0800 03/04/21 1000 03/04/21 1325 BP: 115/76 112/70 (!) 111/85 Pulse: (!) 110 (!) 131 (!) 116 (!) 108 Resp: 20 (!) 22 (!) 23 16 Temp: 98.1 ??F 98 ??F SpO2: 98% 96% 95% 98% Weight: Height: 1.575 m (5' 2 ) Gen: awake, alert, nd appearing girl Skin: no rash Head: nc/at Eyes: moist, anicteric, conjugate/nonprototic gaze Ears/nares: normally shaped/positioned Mouth: mmm, Neck: supple, no TM; acanthosis nigricans: absent Chest: symmetric, bs clear CV: rrr no murmur Abd: soft, nt, no hsm : V girl Ext: warm, cr < 2 sec Neuro: symmetric, nonfocal Laboratory data: Recent Results (from the past 24 hour(s)) GLUCOSE - POINT OF CARE Collection Time: 03/03/21 9:24 AM Result Value Ref Range Glucose WB/POC >500 (HH) 70 - 106 mg/dL Specimen Type Arterial/Capillary BASIC METABOLIC PANEL (CALCIUM TOTAL) Collection Time: 03/03/21 9:42 AM Result Value Ref Range Glucose 681 (HH) 70 - 105 mg/dL Sodium 131 (L) 136 - 145 mmol/L Potassium 6.8 (HH) 3.5 - 5.1 mmol/L Chloride 94 (L) 98 - 107 mmol/L CO2 5 (LL) 20 - 28 mmol/L Calcium 10.58 (H) 9.08 - 10.48 mg/dL Anion Gap 32 (H) 5 - 20 mmol/L BUN 28.0 (H) 5.3 - 18.7 mg/dL Creatinine 0.87 0.61 - 1.07 mg/dL eGFR by MDRD eGFR by MDRD CBC W AUTO DIFFERENTIAL Collection Time: 03/03/21 9:42 AM Result Value Ref Range WBC 33.4 (HH) 4.5 - 14.5 x10E9/L WBC Corrected RBC 5.13 (H) 4.10 - 5.10 x10E12/L Hemoglobin 15.0 12.0 - 16.0 gm/dL Hematocrit 46.8 36.0 - 47.0 % MCV 91.2 78.0 - 98.0 fl MCH 29.2 25.0 - 35.0 pg MCHC 32.1 31.0 - 37.0 gm/dL Platelet Count 386 100 - 400 x10E9/L RDW-CV 12.5 11.5 - 14.0 % MPV 10.5 (H) 6.0 - 9.5 fl nRBC Auto 0 /100 WBC BLOOD GASES VIRY Collection Time: 03/03/21 9:42 AM Result Value Ref Range pH Venous 6.93 (L) 7.32 - 7.42 pH pCO2 Venous 31 (L) 41 - 51 mm hg pO2 Venous 55 30 - 55 mm hg BE Venous -23.7 (L) -2.0 - 2.0 mmol/L O2 Saturation Venous 68 (L) >70 % Oxyhemoglobin Venous 68 (L) 94 - 98 % Hemoglobin Venous 14.6 12.0 - 16.0 gm/dL Carboxyhemoglobin Venous 0.0 (L) 0.5 - 1.5 % Methemoglobin Venous 0.9 0.0 - 1.5 % O2 Content Venous 13.9 % P50 Venous 42.86 mm hg Temp 37.0 C HEMOGLOBIN A1C Collection Time: 03/03/21 9:42 AM Result Value Ref Range Hemoglobin A1c 8.9 (H) 3.4 - 6.1 % Estimated Average Glucose 209 mg/dL MAGNESIUM BLOOD Collection Time: 03/03/21 9:42 AM Result Value Ref Range Magnesium 2.9 (H) 1.7 - 2.3 mg/dL PHOSPHORUS BLOOD Collection Time: 03/03/21 9:42 AM Result Value Ref Range Phosphorus 8.89 (H) 2.88 - 5.08 mg/dL DIFFERENTIAL MANUAL Collection Time: 03/03/21 9:42 AM Result Value Ref Range WBC Auto 33.4 x10E9/L WBC Corrected nRBC Neutrophil % Manual 70 (H) 24 - 66 % Lymphocytes % Manual 19 (L) 22 - 61 % Monocytes % Manual 4 3 - 15 % Band % Manual 6 % Myelocytes % Manual 1 (H) <=0 % Cells Counted 100 # cells Platelet Estimation Adequate platelets Normal, Adequate platelets WBC Morph Normal Anisocytosis 1+ (Abnormal) None Poikilocytosis 2+ (Abnormal) None [place] Cells 2+ (Abnormal) None URINALYSIS W/MICROSCOPIC REFLEX TO CULTURE Collection Time: 03/03/21 10:34 AM Specimen: Urine Clean Catch Result Value Ref Range Color UA Straw Straw, Yellow Clarity UA Clear Clear Glucose UA 3+ (Critical) Negative Bilirubin UA Negative Negative Ketone UA 2+ (Critical) Negative Specific [place] UA 1.016 1.005 - 1.030 Blood UA 1+ (Abnormal) Negative pH UA 5.0 5.0 - 8.0 pH Protein UA 1+ (Abnormal) Negative Urobilinogen UA Negative Negative mg/dL Nitrite UA Negative Negative Leukocyte UA Negative Negative RBC UA 0-2 None Seen, 0-2, 3-5 # /hpf WBC UA 0-5 None Seen, 0-5 # /hpf Bacteria UA Trace (Abnormal) None Seen Squamous Epithelial Cells 0-2 None Seen, 0-2, 3-5 /hpf Mucus UA 1+ /LPF Reflex Status Culture not indicated HCG URINE QUALITATIVE - POCT (IP) INTERFACED Collection Time: 03/03/21 10:44 AM Result Value Ref Range HCG Qual Urine Negative Negative SARS-COV-2 (COVID-19)+INFLU A+B PCR RAPID Collection Time: 03/03/21 10:46 AM Specimen: Nasopharyngeal; Microbiology Result Value Ref Range COVID-19 PCR Not detected Not detected Influenza A PCR Not detected Not detected Influenza B PCR Not detected Not detected GLUCOSE - POINT OF CARE Collection Time: 03/03/21 11:09 AM Result Value Ref Range Glucose WB/POC 474 (HH) 70 - 106 mg/dL Specimen Type Arterial/Capillary KETONES QUALITATIVE URINE AUTO Collection Time: 03/03/21 11:45 AM Result Value Ref Range Ketone UA 2+ (Critical) Negative GLUCOSE - POINT OF CARE Collection Time: 03/03/21 12:04 PM Result Value Ref Range Glucose WB/POC 322 (H) 70 - 106 mg/dL Specimen Type Venous CK BLOOD Collection Time: 03/03/21 12:15 PM Result Value Ref Range CK 102 29 - 168 U/L BASIC METABOLIC PANEL (CALCIUM TOTAL) Collection Time: 03/03/21 12:15 PM Result Value Ref Range Glucose 363 (H) 70 - 105 mg/dL Sodium 140 136 - 145 mmol/L Potassium 5.5 (H) 3.5 - 5.1 mmol/L Chloride 109 (H) 98 - 107 mmol/L CO2 <5 (LL) 20 - 28 mmol/L Calcium 9.81 9.08 - 10.48 mg/dL Anion Gap BUN 26.0 (H) 5.3 - 18.7 mg/dL Creatinine 0.95 0.61 - 1.07 mg/dL eGFR by MDRD eGFR by MDRD PHOSPHORUS BLOOD Collection Time: 03/03/21 12:15 PM Result Value Ref Range Phosphorus 5.61 (H) 2.88 - 5.08 mg/dL GLUCOSE - POINT OF CARE Collection Time: 03/03/21 1:05 PM Result Value Ref Range Glucose WB/POC 319 (H) 70 - 106 mg/dL Specimen Type Arterial/Capillary GLUCOSE - POINT OF CARE Collection Time: 03/03/21 2:06 PM Result Value Ref Range Glucose WB/POC 276 (H) 70 - 106 mg/dL Specimen Type Arterial/Capillary BLOOD GASES VIRY + COOX PANEL Collection Time: 03/03/21 2:21 PM Result Value Ref Range pH Venous 7.10 (L) 7.32 - 7.42 pH pCO2 Venous 25 (L) 41 - 51 mm hg pO2 Venous 80 (H) 30 - 55 mm hg BE Venous -20.6 (L) -2.0 - 2.0 mmol/L O2 Saturation Venous 93 >70 % Hemoglobin Venous 15.5 12.0 - 16.0 gm/dL Oxyhemoglobin Venous 92 (L) 94 - 98 % Carboxyhemoglobin Venous 0.3 (L) 0.5 - 1.5 % Methemoglobin Venous 0.6 0.0 - 1.5 % O2 Content Venous 20.1 % P50 Venous 32.63 mm hg Temp 37.0 C LYTES (NA K CL CO2) BLOOD Collection Time: 03/03/21 2:21 PM Result Value Ref Range Sodium 141 136 - 145 mmol/L Potassium 5.3 (H) 3.5 - 5.1 mmol/L Chloride 112 (H) 98 - 107 mmol/L CO2 <5 (LL) 20 - 28 mmol/L Anion Gap GLUCOSE - POINT OF CARE Collection Time: 03/03/21 3:15 PM Result Value Ref Range Glucose WB/POC 231 (H) 70 - 106 mg/dL Specimen Type Arterial/Capillary GLUCOSE - POINT OF CARE Collection Time: 03/03/21 4:06 PM Result Value Ref Range Glucose WB/POC 224 (H) 70 - 106 mg/dL Specimen Type Arterial/Capillary BASIC METABOLIC PANEL (CALCIUM TOTAL) Collection Time: 03/03/21 4:37 PM Result Value Ref Range Glucose 246 (H) 70 - 105 mg/dL Sodium 141 136 - 145 mmol/L Potassium 6.0 (H) 3.5 - 5.1 mmol/L Chloride 113 (H) 98 - 107 mmol/L CO2 8 (LL) 20 - 28 mmol/L Calcium 9.55 9.08 - 10.48 mg/dL Anion Gap 20 5 - 20 mmol/L BUN 22.3 (H) 5.3 - 18.7 mg/dL Creatinine 0.78 0.61 - 1.07 mg/dL eGFR by MDRD eGFR by MDRD PHOSPHORUS BLOOD Collection Time: 03/03/21 4:37 PM Result Value Ref Range Phosphorus 3.31 2.88 - 5.08 mg/dL GLUCOSE - POINT OF CARE Collection Time: 03/03/21 5:06 PM Result Value Ref Range Glucose WB/POC 244 (H) 70 - 106 mg/dL Specimen Type Arterial/Capillary BLOOD GASES VIRY + COOX PANEL Collection Time: 03/03/21 6:18 PM Result Value Ref Range pH Venous 7.22 (L) 7.32 - 7.42 pH pCO2 Venous 29 (L) 41 - 51 mm hg pO2 Venous 76 (H) 30 - 55 mm hg BE Venous -15.1 (L) -2.0 - 2.0 mmol/L O2 Saturation Venous 95 >70 % Hemoglobin Venous 14.1 12.0 - 16.0 gm/dL Oxyhemoglobin Venous 93 (L) 94 - 98 % Carboxyhemoglobin Venous 0.7 0.5 - 1.5 % Methemoglobin Venous 0.7 0.0 - 1.5 % O2 Content Venous 18.6 % P50 Venous 27.68 mm hg Temp 37.0 C LYTES (NA K CL CO2) BLOOD Collection Time: 03/03/21 6:18 PM Result Value Ref Range Sodium 138 136 - 145 mmol/L Potassium 5.2 (H) 3.5 - 5.1 mmol/L Chloride 112 (H) 98 - 107 mmol/L CO2 9 (LL) 20 - 28 mmol/L Anion Gap 17 5 - 20 mmol/L GLUCOSE - POINT OF CARE Collection Time: 03/03/21 6:29 PM Result Value Ref Range Glucose WB/POC 231 (H) 70 - 106 mg/dL Specimen Type Arterial/Capillary KETONES QUALITATIVE URINE AUTO Collection Time: 03/03/21 6:31 PM Result Value Ref Range Ketone UA 2+ (Critical) Negative GLUCOSE - POINT OF CARE Collection Time: 03/03/21 7:05 PM Result Value Ref Range Glucose WB/POC 231 (H) 70 - 106 mg/dL Specimen Type Arterial/Capillary GLUCOSE - POINT OF CARE Collection Time: 03/03/21 8:29 PM Result Value Ref Range Glucose WB/POC 202 (H) 70 - 106 mg/dL Specimen Type Arterial/Capillary PHOSPHORUS BLOOD Collection Time: 03/03/21 8:33 PM Result Value Ref Range Phosphorus 3.29 2.88 - 5.08 mg/dL BASIC METABOLIC PANEL (CALCIUM TOTAL) Collection Time: 03/03/21 8:34 PM Result Value Ref Range Glucose 218 (H) 70 - 105 mg/dL Sodium 140 136 - 145 mmol/L Potassium 4.8 3.5 - 5.1 mmol/L Chloride 113 (H) 98 - 107 mmol/L CO2 12 (L) 20 - 28 mmol/L Calcium 9.45 9.08 - 10.48 mg/dL Anion Gap 15 5 - 20 mmol/L BUN 18.4 5.3 - 18.7 mg/dL Creatinine 0.67 0.61 - 1.07 mg/dL eGFR by MDRD eGFR by MDRD GLUCOSE - POINT OF CARE Collection Time: 03/03/21 9:13 PM Result Value Ref Range Glucose WB/POC 232 (H) 70 - 106 mg/dL Specimen Type Arterial/Capillary GLUCOSE - POINT OF CARE Collection Time: 03/03/21 10:35 PM Result Value Ref Range Glucose WB/POC 197 (H) 70 - 106 mg/dL Specimen Type Arterial/Capillary BLOOD GASES CAP + LYTES GLUC CA+ PANEL Collection Time: 03/03/21 11:11 PM Result Value Ref Range pH Capillary 7.31 (L) 7.35 - 7.45 pH pCO2 Capillary 32 32 - 45 mm hg pO2 Capillary 66 (H) 40 - 50 mm hg Hemoglobin Capillary 13.4 12.0 - 16.0 gm/dL O2 Saturation Capillary 94 (L) 95 - 99 % Oxyhemoglobin Capillary 92.6 (L) 94 - 98 % Carboxyhemoglobin Capillary 0.9 0.5 - 1.5 % Methemoglobin Capillary 0.6 0.0 - 1.5 % O2 Content Capillary 17.5 15.0 - 23.0 % BE Capillary -9.0 (L) -2.0 - 2.0 mmol/L P50 Capillary 24.46 (L) 25.3 - 26.8 mm hg Sodium Whole Blood 146 136 - 146 mmol/L Potassium Whole Blood 4.4 3.4 - 4.5 mmol/L Chloride WB 117 (H) 98 - 106 mmol/L TCO2 Capillary 17.0 (L) 18 - 27 mmol/L Glucose WB 207 (H) 70 - 106 mg/dL Calcium Ionized 1.34 mmol/L Calcium Ionized Adjusted 1.28 1.15 - 1.29 mmol/L Temp 37.0 C BASIC METABOLIC PANEL (CALCIUM TOTAL) Collection Time: 03/03/21 11:57 PM Result Value Ref Range Glucose 193 (H) 70 - 105 mg/dL Sodium 143 136 - 145 mmol/L Potassium 3.7 3.5 - 5.1 mmol/L Chloride 113 (H) 98 - 107 mmol/L CO2 15 (L) 20 - 28 mmol/L Calcium 9.07 (L) 9.08 - 10.48 mg/dL Anion Gap 15 5 - 20 mmol/L BUN 16.3 5.3 - 18.7 mg/dL Creatinine 0.64 0.61 - 1.07 mg/dL eGFR by MDRD eGFR by MDRD PHOSPHORUS BLOOD Collection Time: 03/03/21 11:57 PM Result Value Ref Range Phosphorus 2.71 (L) 2.88 - 5.08 mg/dL GLUCOSE - POINT OF CARE Collection Time: 03/04/21 12:00 AM Result Value Ref Range Glucose WB/POC 191 (H) 70 - 106 mg/dL Specimen Type Venous GLUCOSE - POINT OF CARE Collection Time: 03/04/21 1:00 AM Result Value Ref Range Glucose WB/POC 186 (H) 70 - 106 mg/dL Specimen Type Arterial/Capillary KETONES QUALITATIVE URINE AUTO Collection Time: 03/04/21 1:20 AM Result Value Ref Range Ketone UA 1+ (Abnormal) Negative BLOOD GASES CAP + LYTES GLUC CA+ PANEL Collection Time: 03/04/21 2:08 AM Result Value Ref Range pH Capillary 7.35 7.35 - 7.45 pH pCO2 Capillary 32 32 - 45 mm hg pO2 Capillary 67 (H) 40 - 50 mm hg Hemoglobin Capillary 13.2 12.0 - 16.0 gm/dL O2 Saturation Capillary 94 (L) 95 - 99 % Oxyhemoglobin Capillary 92.7 (L) 94 - 98 % Carboxyhemoglobin Capillary 0.7 0.5 - 1.5 % Methemoglobin Capillary 0.9 0.0 - 1.5 % O2 Content Capillary 17.3 15.0 - 23.0 % BE Capillary -7.4 (L) -2.0 - 2.0 mmol/L P50 Capillary 24.31 (L) 25.3 - 26.8 mm hg Sodium Whole Blood 144 136 - 146 mmol/L Potassium Whole Blood 3.9 3.4 - 4.5 mmol/L Chloride WB 117 (H) 98 - 106 mmol/L TCO2 Capillary 18.1 18 - 27 mmol/L Glucose WB 190 (H) 70 - 106 mg/dL Calcium Ionized 1.25 mmol/L Calcium Ionized Adjusted 1.22 1.15 - 1.29 mmol/L Temp 37.0 C GLUCOSE - POINT OF CARE Collection Time: 03/04/21 3:03 AM Result Value Ref Range Glucose WB/POC 178 (H) 70 - 106 mg/dL Specimen Type Arterial/Capillary BASIC METABOLIC PANEL (CALCIUM TOTAL) Collection Time: 03/04/21 4:42 AM Result Value Ref Range Glucose 135 (H) 70 - 105 mg/dL Sodium 141 136 - 145 mmol/L Potassium 3.7 3.5 - 5.1 mmol/L Chloride 113 (H) 98 - 107 mmol/L CO2 17 (L) 20 - 28 mmol/L Calcium 9.09 9.08 - 10.48 mg/dL Anion Gap 11 5 - 20 mmol/L BUN 12.1 5.3 - 18.7 mg/dL Creatinine 0.69 0.61 - 1.07 mg/dL eGFR by MDRD eGFR by MDRD PHOSPHORUS BLOOD Collection Time: 03/04/21 4:42 AM Result Value Ref Range Phosphorus 2.62 (L) 2.88 - 5.08 mg/dL GLUCOSE - POINT OF CARE Collection Time: 03/04/21 4:50 AM Result Value Ref Range Glucose WB/POC 149 (H) 70 - 106 mg/dL Specimen Type Arterial/Capillary BLOOD GASES CAP + LYTES GLUC CA+ PANEL Collection Time: 03/04/21 6:26 AM Result Value Ref Range pH Capillary 7.34 (L) 7.35 - 7.45 pH pCO2 Capillary 36 32 - 45 mm hg pO2 Capillary 86 (H) 40 - 50 mm hg Hemoglobin Capillary 13.0 12.0 - 16.0 gm/dL O2 Saturation Capillary 97 95 - 99 % Oxyhemoglobin Capillary 95.5 94 - 98 % Carboxyhemoglobin Capillary 0.7 0.5 - 1.5 % Methemoglobin Capillary 0.8 0.0 - 1.5 % O2 Content Capillary 17.5 15.0 - 23.0 % BE Capillary -5.8 (L) -2.0 - 2.0 mmol/L P50 Capillary 24.41 (L) 25.3 - 26.8 mm hg Sodium Whole Blood 144 136 - 146 mmol/L Potassium Whole Blood 3.7 3.4 - 4.5 mmol/L Chloride WB 112 (H) 98 - 106 mmol/L TCO2 Capillary 20.0 18 - 27 mmol/L Glucose WB 150 (H) 70 - 106 mg/dL Calcium Ionized 1.30 mmol/L Calcium Ionized Adjusted 1.26 1.15 - 1.29 mmol/L Temp 37.0 C *Note: Due to a large number of results and/or encounters for the requested time period, some results have not been displayed. A complete set of results can be found in Results Review. Hospital Problems 1. Diabetic ketoacidosis, severe (pH 6.93; glucose 681 mg/dL), resolving 2. Hyperchloremia - underhydrated 3. Tachycardia - HR > 100 beat/min - still somewhat underhydrated 3. Dx (08/17/2012): Diabetes mellitus, type I; hemoglobin A1c 8.9%%; fair glycemic control, uncomplicated Plan: 1. IV fluid rehydration 1/2 NS at maintenance. 2. Routine bedside glucose monitoring 3. Carb counting meal planning 4. Lantus 15 u this am (30 u tonite at HS - usual time) 5. Humalog/Novolog 1 u per 10 g carb (mealtime correction: 1 u per 50 mg/dL over 150 mg/dL. 6. Consult Business Proposal Rep. 7. Diabetes nurse educator visit 8. Serial examinations 9. D/w father, pediatric housestaff, bedside nursing, social director who are in agreement. I personally interviewed and examined the patient and discussed with the resident the following findings and his/her findings: See resident's H&P for further details. Brendan Zafar MD * Heri Rufino Burgos - 03/03/2021 12:10 PM CDT Images from the original note were not included. Pediatric Admission Note 03/03/2021 12:10 PM Chief Complaint Vomiting (Once today and once yesterday ) and HIGH BLOOD SUGAR (dad reports 600 blood sugar. Pt reports she hasnt taken her insulin since thursday ) History of Present Illness Anaid Dimas is a 15 year old female with past medical history of T1DM who presents with diabetic ketoacidosis. Anaid has not taken any insulin for the last two days and has about two episodes of emesis over the last 24 hours. Afebrile. Associated symptoms including somnolence, poor PO and decreased UOP. Denies recent URI symptoms. No sick contacts. In [facility] ED, patient was found to have pH 6.93, bicarb 5, K 6.8, AG 32, and glucoses >600. She was given an NS bolus and started on an insulin drip and the two bag system. CBC showed leukocytosis to 33.4 with 6% bands and 70% neutrophils. UA has significant ketonuria and glucosuria. HCG negative. Given her degree of metabolic acidosis and somnolence, patient requires admission to PICU for close monitoring. Patient's normal insulin regimen is reportedly 30 units of Lantus at night with a 1:10 carb ratio. Immunizations are up to date. No known allergies. Last admission for DKA was September 2018. Review of Systems Constitutional: (-) fever, (+) appetite change, (-) weight loss Eyes: (-) eye redness, (-) eye itching ENT: Ears: (-) ear pain Nose: (-) rhinorrhea, (-) congestion Throat: (-) sore throat Cardiovascular: (-) chest pain, (-) palpitations Respiratory: (-) cough, (-) wheezing, (+) shortness of breath Gastrointestinal: (+) nausea, (+) vomiting, (-) diarrhea, (-) constipation, (-) abdominal pain Genitourinary: (+) decreased urine output Musculoskeletal: (-) swelling Skin: (-) rash Neurological: (-) headaches, (-) seizures Psychological/Behavioral: + somnolence Endocrine: (+) polydipsia Physical Exam VS: BP 134/78 Pulse 135 Temp 98.4 ??F (Oral) Resp 30 Wt 54.7 kg (120 lb 9.5 oz) SpO2 100% Height: No height on file for this encounter. Weight: 54.7 kg (120 lb 9.5 oz) 51 %ile (Z= 0.03) based on CDC (Girls, 2-20 Years) [id number] data using vitals from 03/03/2021. General: awake, alert, ill appearing Head: normocephalic Eyes: Pupils: pupils equal, round, reactive to light Discharge: none Nose: normal Mouth / Oropharynx: Mucous membranes: dry Oral cavity: cracked lips Oropharynx: erythema Neck: Adenopathy: none Cardiovascular: Rate: + tachycardia Rhythm: regular Murmur: no murmur Pulses: Radial: R - 2+, L - 2+ Capillary refill: < 2 seconds Pulmonary: Auscultation: clear to auscultation Aeration: good aeration Respiratory effort: subcostal retractions+ tachypnea + Kussmaul breathing Abdominal: soft Tenderness: none Bowel sounds: normal Musculoskeletal: Upper extremities: Swelling: none Lower extremities: Swelling: none Skin: Temp / Texture: warm Rash: none Integrity / Injury: intact / uninjured Neurological: Orientation: oriented to person, place and time Labs / Results BMP Na 131 (140 corrected) K 6.8 Cl 94 CO2 5 BUN 28.0 Cr 0.87 Gluc 681 Ca 10.58 AG 32 CBC WBC 33.4 H/H 15.0/46.8 Plt 386 Hgb A1c 8.9 UA 3+ glucose, 2+ ketones, 1+ blood with no RBCs HCG negative History No past medical history on file. Past Surgical History: Procedure Laterality Date ??? NEGATIVE SURGICAL HISTORY Family History Problem Relation Name Age of Onset ??? Negative Family History Other DM, thyroid d/o Social History Tobacco Use ??? Smoking status: Never Smoker ??? Smokeless tobacco: Never Used Vaping Use ??? Vaping Use: Never used Substance Use Topics ??? Alcohol use: Never Alcohol/week: 0.0 standard drinks ??? Drug use: Never Social History Social History Narrative Social History: Anaid lives with mother and grandmother. Goes to father's every other weekend. She is in the 10th grade at [employer] and is achieving average grades, IEP. She has an in-tact diabetes management plan for school. Anaid has good friends and for extracurricular activity Anaid enjoys social [employer] and art. Anaid Dimas expresses feelings of acceptance regarding living with diabetes. Social History Narrative Social History: Anaid lives with mother and grandmother. Goes to father's every other weekend. She is in the 10th grade at [employer] and is achieving average grades, IEP. She has an in-tact diabetes management plan for school. Anaid has good friends and for extracurricular activity Anaid enjoys social media and art. Anaid Dimas expresses feelings of acceptance regarding living with diabetes. ??? Delivery Method: ??? Gestation Age: 40 wks No NICU stay or intubation Allergies Patient has no known allergies. Immunizations stated as current, but no records available Medications Prior to Visit Current Medications ACCU-CHEK FASTCLIX LANCETS Use for blood glucose monitoring 4-6 times/day. ACCU-CHEK SMARTVIEW test strip USE TO TEST BLOOD SUGAR 4 TO 6 TIMES DAILY acetone,urine, (KETOSTIX) strip Use as directed for urine ketone checks if blood sugar above 250 orif ill. Dispense one bottle for school and one for home. acetone,urine, (KETOSTIX) strip Use as needed (use when blood sugar is greater than 250 or when ill. ) Blood Glucose Monitoring Suppl (ACCU-CHEK DRAKE SMARTVIEW) W/DEVICE KIT kit Use for blood glucose monitoring. Blood Glucose Monitoring Suppl ([employer] VERIO IQ SYSTEM) w/Device KIT Use 1 kit as directed fluconazole (DIFLUCAN) 150 MG tablet Take one tablet today, if symptoms continue take second dose in 72 hours. glucagon (GLUCAGON EMERGENCY) injection Inject 1 mg into muscle as needed glucagon (GLUCAGON EMERGENCY) injection Inject 1 mg into muscle as directed for severe low blood sugar reaction. injection device-insulin (NOVOPEN ECHO) device Use for insulin delivery. insulin aspart (NOVOLOG FLEXPEN) pen 1 unit per 16 grams of carbohydrate with meals and snacks. insulin aspart (NOVOLOG PENFILL) cartridge Inject 1 unit per 18-20 grams of carbohydrates or as directed. . Max daily dose 40 units. insulin glargine (LANTUS SOLOSTAR) pen Inject 30 (thirty) Units subcutaneously at bedtime Insulin Lispro (HUMALOG KWIKPEN) 100 UNIT/ML Use up to 35 units per day. 1 unit for every 14 grams of carbohydrate. Insulin Pen Needle (BD PEN NEEDLE DRAKE U/F) 32G X 4 MM MISC Use 4-6 Each once daily Insulin Pen Needle (BD PEN NEEDLE DRAKE U/F) 32G X 4 MM MISC Use 4-6 Each as directed Use for injections 4-6 times daily. insulin syringe-needle (BD ULTRAFINE II) 31G X 5/16 0.3 ML syringe USE FOR INJECTION DAILY ONETOUCH DELICA LANCETS 33G MISC Use 1 Each as directed ONETOUCH VERIO test strip USE TO TEST BLOOD SUGAR 5-9 TIMES DAILY oxybutynin (DITROPAN) 5 MG tablet Take 1 tablet by mouth 3 times daily Assessment & Plan Diabetic ketoacidosis without coma associated with type 1 diabetes mellitus Assessment: Anaid Dimas is a 15 year old female with type 1 diabetes mellitus with history ofnon-compliance who presents to the PICU in DKA. [...] Activity: - PT/OT Social: - Consults to hospice educator, nutrition, social director Labs: Hourly glucoses, BMP/Ph q4h alternating with VBG + lytes q4h, urine qvoid, CK once Access: CHRIS Liriano DO documented in this encounter ED Notes * Jacky Armando MD - 03/03/2021 10:41 AM CDT EMERGENCY DEPARTMENT 03/03/2021 Dear Doctor, We had the pleasure of caring for your patient, Anaid Dimas in our emergency department on 03/03/2021. A note from the provider(s) who cared for your patient is attached. Should you wish to access any laboratory results, please call . Should you wish to access any radiology results, please call , option 3. In addition, you can access patient information 24 hours a day, from any computer, through [employer], the online version of our electronic medical record. If you would like to use this service, please call Camryn Underwood, Connectivity Coordinator, at . We appreciate the opportunity to care for your patients. If you would like additional information, please call the emergency department directly at . Sincerely, Jacky Armando MD Division of Emergency Medicine [facility], [place] [facility] [place] DESIGNATED EMERGENCY DEPARTMENT Anaid Dimas [id number] EMERGENCY DEPT History Chief Complaint Patient presents with ??? Vomiting Once today and once yesterday ??? HIGH BLOOD SUGAR dad reports 600 blood sugar. Pt reports she hasnt taken her insulin since thursday Pt is a 15 y/o F with IDDM that presents to the ED with AMS and vomiting after not administering insulin for approximately 30+ hrs. Father reports that she forgot her insulin needles at her mother's house and did not tell him until she vomited this AM. Pt normally uses 30u Lantus QHS and 1:10 carb ratio with short acting. Denies any dysuria, fever, chills, abd pain, changes in bowel habits, upperrespiratory sx, or cough. Has been admitted in the past for DKA, mother reports most recently 09/2020 No past medical history on file. Past Surgical History: Procedure Laterality Date ??? NEGATIVE SURGICAL HISTORY Social History Socioeconomic History ??? Marital status: Single Spouse name: Not on file ??? Number of children: Not on file ??? Years of education: Not on file ??? Highest education level: Not on file Occupational History ??? Not on file Tobacco Use ??? Smoking status: Never Smoker ??? Smokeless tobacco: Never Used Substance and Sexual Activity ??? Alcohol use: Not on file ??? Drug use: Not on file ??? Sexual activity: Not on file Other Topics Concern ??? Not on file Social History Narrative Social History: Anaid lives with mother and grandmother. Goes to father's every other weekend. She is in the 10th grade at [employer] and is achieving average grades, IEP. She has an in-tact diabetes management plan for school. Anaid has good friends and for extracurricular activity Anaid enjoys social media and art. Anaid Dimas expresses feelings of acceptance regarding living with diabetes. Social Determinants of Health Financial Resource Strain: ??? Difficulty of Paying Living Expenses: Food Insecurity: ??? Worried About Running Out of Food in the Last Year: ??? Ran Out of Food in the Last Year: Transportation Needs: ??? Lack of Transportation (Medical): ??? Lack of Transportation (Non-Medical): Physical Activity: ??? Days of Exercise per Week: ??? Minutes of Exercise per Session: Stress: ??? Feeling of Stress : Social Connections: ??? Frequency of Communication with Friends and Family: ??? Frequency of Social Gatherings with Friends and Family: ??? Attends Yazdanism Services: ??? Active Member of Clubs or Organizations: ??? Attends Club or Organization Meetings: ??? Marital Status: Intimate Partner Violence: ??? Fear of Current or Ex-Partner: ??? Emotionally Abused: ??? Physically Abused: ??? Sexually Abused: Medications Current Outpatient Medications Medication Sig Dispense Refill ??? ACCU-CHEK FASTCLIX LANCETS Use for blood glucose monitoring 4-6 times/day. 200 Each 11 ??? ACCU-CHEK SMARTVIEW test strip USE TO TEST BLOOD SUGAR 4 TO 6 TIMES DAILY 200 strip 11 ??? acetone,urine, (KETOSTIX) strip Use as directed for urine ketone checks if blood sugar above 250 or if ill. Dispense one bottle for school and one for home. 100 strip 3 ??? acetone,urine, (KETOSTIX) strip Use as needed (use when blood sugar is greater than 250 or whenill. ) 100 Strip 11 ??? Blood Glucose Monitoring Suppl (ACCU-CHEK DRAKE SMARTVIEW) W/DEVICE KIT kit Use for blood glucose monitoring. 1 Kit 0 ??? Blood Glucose Monitoring Suppl ([employer] VERIO IQ SYSTEM) w/Device KIT Use 1 kit as directed 2 kit 0 ??? fluconazole (DIFLUCAN) 150 MG tablet Take one tablet today, if symptoms continue take second dose in 72 hours. 2 tablet 0 ??? glucagon (GLUCAGON EMERGENCY) injection Inject 1 mg into muscle as needed 2 mg 0 ??? glucagon (GLUCAGON EMERGENCY) injection Inject 1 mg into muscle as directed for severe low blood sugar reaction. 2 kit 0 ??? injection device-insulin (NOVOPEN ECHO) device Use for insulin delivery. 1 device 1 ??? insulin aspart (NOVOLOG FLEXPEN) pen 1 unit per 16 grams of carbohydrate with meals and snacks.15 mL 5 ??? insulin aspart (NOVOLOG PENFILL) cartridge Inject 1 unit per 18-20 grams of carbohydrates or asdirected. . Max daily dose 40 units. 1 Box 5 ??? insulin glargine (LANTUS SOLOSTAR) pen Inject 30 (thirty) Units subcutaneously at bedtime 15 mL5 ??? Insulin Lispro (HUMALOG KWIKPEN) 100 UNIT/ML Use up to 35 units per day. 1 unit for every 14 grams of carbohydrate. 4 Pen 5 ??? Insulin Pen Needle (BD PEN NEEDLE DRAKE U/F) 32G X 4 MM MISC Use 4-6 Each once daily 200 Each 11 ??? Insulin Pen Needle (BD PEN NEEDLE DRAKE U/F) 32G X 4 MM MISC Use 4-6 Each as directed Use for injections 4-6 times daily. 200 Each 11 ??? insulin syringe-needle (BD ULTRAFINE II) 31G X 5/16 0.3 ML syringe USE FOR INJECTION DAILY 100Each 0 ??? ONETOUCH DELICA LANCETS 33G MISC Use 1 Each as directed 200 Each 4 ??? ONETOUCH VERIO test strip USE TO TEST BLOOD SUGAR 5-9 TIMES DAILY 200 strip 4 ??? oxybutynin (DITROPAN) 5 MG tablet Take 1 tablet by mouth 3 times daily 180 tablet 5 Review of Systems Review of Systems Constitutional: Positive for activity change. Negative for chills and fever. HENT: Negative for congestion, ear pain, rhinorrhea, sinus pain and sore throat. Eyes: Negative for pain and discharge. Respiratory: Negative for cough and wheezing. Cardiovascular: Negative for chest pain and leg swelling. Gastrointestinal: Positive for vomiting. Negative for abdominal pain, constipation and diarrhea. Genitourinary: Negative for dysuria. Neurological: Negative for seizures. BP (!) 135/87 Pulse (!) 137 Temp 98.4 ??F (36.9 ??C) (Oral) Resp (!) 38 Wt 54.7 kg (120 lb 9.5 oz) LMP 02/13/2021 SpO2 98% Physical Exam Physical Exam Constitutional: Appearance: She is ill-appearing. She is not diaphoretic. Comments: Somnolent on exam but able to awake to answer questions most of the time appropriately. Able to answer her name, location, and year HENT: Head: Normocephalic and atraumatic. Right Ear: Tympanic membrane, ear canal and external ear normal. There is no impacted cerumen. Left Ear: Tympanic membrane, ear canal and external ear normal. There is no impacted cerumen. Nose: Nose normal. Mouth/Throat: Mouth: Mucous membranes are dry. Pharynx: No oropharyngeal exudate or posterior oropharyngeal erythema. Eyes: General: No scleral icterus. Right eye: No discharge. Left eye: No discharge. Extraocular Movements: Extraocular movements intact. Conjunctiva/sclera: Conjunctivae normal. Cardiovascular: Rate and Rhythm: Regular rhythm. Tachycardia present. Heart sounds: Normal heart sounds. No murmur heard. No friction rub. No gallop. Pulmonary: Comments: Tachypnic. Breathing pattern consistent with Kussmal breathing Abdominal: General: Abdomen is flat. Bowel sounds are normal. There is no distension. Palpations: Abdomen is soft. Tenderness: There is no abdominal tenderness. There is no guarding or rebound. Musculoskeletal: General: No swelling. Normal range of motion. Cervical back: Normal range of motion and neck supple. Skin: General: Skin is warm and dry. Neurological: Mental Status: She is disoriented. Psychiatric: Mood and Affect: Mood normal. Behavior: Behavior normal. ED Course Clinical Impressions as of Mar 03 1041 Diabetic ketoacidosis without coma associated with type 1 diabetes mellitus Medical Decision Making Marked DKA. Initial glucose 681. Gap of 32 using unadjusted sodium. Mg and Phos also elevated. PH 6.93. Not requiring supplemental O2. Started on insulin drip and given bolus fluid on presentation. Not hypotensive, so second fluid bolus not administered. Will start on 1/2ns and d10+1/2ns per protocol. Admit to PICU. Discussed case with Endo. WBC most likely stress response in setting of DKA. * Latanya Voss RN - 03/03/2021 10:39 AM CDT At 1015, Insulin IV pump began beeping air in line - line reprimed with insulin, and despite that, pump repeatedly beeping. Whole line reprimed, so delay in insulin infusion from [id number]. Pt up to BR also, per wheelchair, no clean catch done, just voided in hat. * Luigi Gil MD - 03/03/2021 9:52 AM CDTAssociated Order(s): Critical Care Provider contact with the patient: 03/03/2021 9:52 AM [facility] EMERGENCY DEPARTMENT Anaid Dimas [id number] History Chief Complaint Patient presents with ??? Vomiting Once today and once yesterday ??? HIGH BLOOD SUGAR dad reports 600 blood sugar. Pt reports she hasnt taken her insulin since thursday Chief complaint narrative was entered by triage nurse, not by physician. I have read the resident/medical student/ACTUARIAL ASSOCIATE history. Unless appended by me below, I agree with findings as documented. HPI History provided per: patient and father Anaid Dimas is a 15 year old female with a past medical history of type I diabetes who presents to ED for evaluation due to concern for DKA. The patient's father states that the patient has nothad any insulin since Thursday morning (2 days ago) due to having forgotten to bring her insulin withher when she went from her mother's to father's house. The patient reports one episode of vomiting yesterday that she did not tell her father about and dad states that when he went to wake her up this morning, she had another episode of emesis and was slower to respond to him. Patient reports some increased thirst and decreased urine output. Denies fevers or changes in bowel habits. Patient's normal insulin regimen is reportedly 30 units of Lantus at night with a 1:10 carb ratio. Patient was last admitted for DKA in September 2020. All immunizations are up-to-date. No Known Allergies No past medical history on file. Social History Socioeconomic History ??? Marital status: Single Spouse name: Not on file ??? Number of children: Not on file ??? Years of education: Not on file ??? Highest education level: Not on file Occupational History ??? Not on file Tobacco Use ??? Smoking status: Never Smoker ??? Smokeless tobacco: Never Used Substance and Sexual Activity ??? Alcohol use: Not on file ??? Drug use: Not on file ??? Sexual activity: Not on file Other Topics Concern ??? Not on file Social History Narrative Social History: Anaid lives with mother and grandmother. Goes to father's every other weekend. She is in the 10th grade at [employer] and is achieving average grades, IEP. She has an in-tact diabetes management plan for school. Anaid has good friends and for extracurricular activity Anaid enjoys social media and art. Anaid Dimas expresses feelings of acceptance regarding living with diabetes. Social Determinants of Health Financial Resource Strain: ??? Difficulty of Paying Living Expenses: Food Insecurity: ??? Worried About Running Out of Food in the Last Year: ??? Ran Out of Food in the Last Year: Transportation Needs: ??? Lack of Transportation (Medical): ??? Lack of Transportation (Non-Medical): Physical Activity: ??? Days of Exercise per Week: ??? Minutes of Exercise per Session: Stress: ??? Feeling of Stress : Social Connections: ??? Frequency of Communication with Friends and Family: ??? Frequency of Social Gatherings with Friends and Family: ??? Attends Yazdanism Services: ??? Active Member of Clubs or Organizations: ??? Attends Club or Organization Meetings: ??? Marital Status: Intimate Partner Violence: ??? Fear of Current or Ex-Partner: ??? Emotionally Abused: ??? Physically Abused: ??? Sexually Abused: Family History Problem Relation Name Age of Onset ??? Negative Family History Other DM, thyroid d/o Patient's Medications New Prescriptions No medications on file Previous Medications ACCU-CHEK FASTCLIX LANCETS Use for blood glucose monitoring 4-6 times/day. ACCU-CHEK SMARTVIEW TEST STRIP USE TO TEST BLOOD SUGAR 4 TO 6 TIMES DAILY ACETONE,URINE, (KETOSTIX) STRIP Use as needed (use when blood sugar is greater than 250 or when ill. ) ACETONE,URINE, (KETOSTIX) STRIP Use as directed for urine ketone checks if blood sugar above 250 orif ill. Dispense one bottle for school and one for home. BLOOD GLUCOSE MONITORING SUPPL (ACCU-CHEK DRAKE SMARTVIEW) W/DEVICE KIT KIT Use for blood glucose monitoring. BLOOD GLUCOSE MONITORING SUPPL (ONETOUCH VERIO IQ SYSTEM) W/DEVICE KIT Use 1 kit as directed FLUCONAZOLE (DIFLUCAN) 150 MG TABLET Take one tablet today, if symptoms continue take second dose in 72 hours. GLUCAGON (GLUCAGON EMERGENCY) INJECTION Inject 1 mg into muscle as directed for severe low blood sugar reaction. GLUCAGON (GLUCAGON EMERGENCY) INJECTION Inject 1 mg into muscle as needed INJECTION DEVICE-INSULIN (NOVOPEN ECHO) DEVICE Use for insulin delivery. INSULIN ASPART (NOVOLOG FLEXPEN) PEN 1 unit per 16 grams of carbohydrate with meals and snacks. INSULIN ASPART (NOVOLOG PENFILL) CARTRIDGE Inject 1 unit per 18-20 grams of carbohydrates or as directed. . Max daily dose 40 units. INSULIN GLARGINE (LANTUS SOLOSTAR) PEN Inject 30 (thirty) Units subcutaneously at bedtime INSULIN LISPRO (HUMALOG KWIKPEN) 100 UNIT/ML Use up to 35 units per day. 1 unit for every 14 grams of carbohydrate. INSULIN PEN NEEDLE (BD PEN NEEDLE DRAKE U/F) 32G X 4 MM MISC Use 4-6 Each as directed Use for injections 4-6 times daily. INSULIN PEN NEEDLE (BD PEN NEEDLE DRAKE U/F) 32G X 4 MM MISC Use 4-6 Each once daily INSULIN SYRINGE-NEEDLE (BD ULTRAFINE II) 31G X 5/16 0.3 ML SYRINGE USE FOR INJECTION DAILY ONETOUCH DELICA LANCETS 33G MISC Use 1 Each as directed ONETOUCH VERIO TEST STRIP USE TO TEST BLOOD SUGAR 5-9 TIMES DAILY OXYBUTYNIN (DITROPAN) 5 MG TABLET Take 1 tablet by mouth 3 times daily Modified Medications No medications on file Discontinued Medications No medications on file Review of Systems All relevant systems reviewed and all negative except as noted in resident/medical student/ACTUARIAL ASSOCIATE and attending HPI/ROS. Constitutional: No activity change or fever. + increased thirst HENT: No congestion or rhinorrhea Respiratory: No cough or wheezing Cardiovascular: Negative GI: No abdominal pain, diarrhea, or nausea. + vomiting : + decreased urine output MS: Negative Neuro: + altered mental status Skin: No rash or wounds All other systems negative except as noted above. Physical Exam I have reviewed the resident/medical student/ACTUARIAL ASSOCIATE physical exam. Unless appended by me below, I agreewith the PE as documented. Vitals: 03/03/21 0930 03/03/21 0935 BP: (!) 121/85 (!) 135/87 Pulse: (!) 126 (!) 137 Resp: (!) 32 (!) 38 Temp: 98.4 ??F (36.9 ??C) SpO2: 98% 98% Weight: 54.7 kg (120 lb 9.5 oz) Constitutional: Pt appears well-developed and well-nourished; lethargic, answers some questions appropriately Head: Normocephalic; atraumatic. Eyes: Conjunctivae are normal. ENT: Mucous membranes moist. Neck: Supple. Normal ROM. Cardiovascular: Regular rate and rhythm. S1 and S2 normal. No murmurs, rubs or gallops. Pulmonary: Kussmaul breathing pattern; no wheezing, rales or rhonchi Abdominal: Soft. No abdominal tenderness. No distension. Extremities: Full ROM. Neurological: Pt is alert and interactive. Skin: No rash or lesions. Nursing notes and vitals reviewed. Procedures Critical Care Performed by: Luigi Gil MD Authorized by: Luigi Gil MD Critical care provider statement: Critical care time (minutes): 45 Critical care time was exclusive of: Separately billable procedures and treating other patients andteaching time Critical care was necessary to treat or prevent imminent or life-threatening deterioration of the following conditions: QUARRY WORKER failure or compromise, respiratory failure and endocrine crisis (DKA) Critical care was time spent personally by me on the following activities: Development of treatmentplan with patient or surrogate, evaluation of patient's response to treatment, examination of patient, obtaining history from patient or surrogate, ordering and performing treatments and interventions, re-evaluation of patient's condition, discussions with consultants, pulse oximetry, interpretation of cardiac output measurements, review of old charts and ordering and review of laboratory studies I assumed direction of critical care for this patient from another provider in my specialty: no Labs/Orders Orders Placed This Encounter ??? ED CRITICAL CARE ??? SARS-COV-2 (COVID-19)+INFLU A+B PCR RAPID ??? BASIC METABOLIC PANEL (CALCIUM TOTAL) ??? KETONES QUALITATIVE URINE AUTO ??? CBC W AUTO DIFFERENTIAL ??? BLOOD GASES VIRY ??? HEMOGLOBIN A1C ??? MAGNESIUM BLOOD ??? PHOSPHORUS BLOOD ??? URINALYSIS W/MICROSCOPIC REFLEX TO CULTURE ??? DIFFERENTIAL MANUAL ??? DISCONTD: 0.9 % nacl IV BOLUS 500 mL ??? 0.9 % nacl IV BOLUS 1,000 mL ??? 0.9% NaCl infusion ADS Med ??? insulin regular human (MyXRedlin) 100 units in 100 mL premix infusion ??? dextrose 10% with NaCl (4mEq/ml) (Conc.Sodium Chloride) 0.45 % INFUSION ??? 0.45 % NaCl infusion No orders to display Hospital Encounter on 03/03/21 BASIC METABOLIC PANEL (CALCIUM TOTAL) Result Value Ref Range Glucose 681 (HH) 70 - 105 mg/dL Sodium 131 (L) 136 - 145 mmol/L Potassium 6.8 (HH) 3.5 - 5.1 mmol/L Chloride 94 (L) 98 - 107 mmol/L CO2 5 (LL) 20 - 28 mmol/L Calcium 10.58 (H) 9.08 - 10.48 mg/dL Anion Gap 32 (H) 5 - 20 mmol/L BUN 28.0 (H) 5.3 - 18.7 mg/dL Creatinine 0.87 0.61 - 1.07 mg/dL eGFR by MDRD eGFR by MDRD CBC W AUTO DIFFERENTIAL Result Value Ref Range WBC 33.4 (HH) 4.5 - 14.5 x10E9/L WBC Corrected RBC 5.13 (H) 4.10 - 5.10 x10E12/L Hemoglobin 15.0 12.0 - 16.0 gm/dL Hematocrit 46.8 36.0 - 47.0 % MCV 91.2 78.0 - 98.0 fl MCH 29.2 25.0 - 35.0 pg MCHC 32.1 31.0 - 37.0 gm/dL Platelet Count 386 100 - 400 x10E9/L RDW-CV 12.5 11.5 - 14.0 % MPV 10.5 (H) 6.0 - 9.5 fl nRBC Auto 0 /100 WBC BLOOD GASES VIRY Result Value Ref Range pH Venous 6.93 (L) 7.32 - 7.42 pH pCO2 Venous 31 (L) 41 - 51 mm hg pO2 Venous 55 30 - 55 mm hg BE Venous -23.7 (L) -2.0 - 2.0 mmol/L O2 Saturation Venous 68 (L) >70 % Oxyhemoglobin Venous 68 (L) 94 - 98 % Hemoglobin Venous 14.6 12.0 - 16.0 gm/dL Carboxyhemoglobin Venous 0.0 (L) 0.5 - 1.5 % Methemoglobin Venous 0.9 0.0 - 1.5 % O2 Content Venous 13.9 % P50 Venous 42.86 mm hg Temp 37.0 C HEMOGLOBIN A1C Result Value Ref Range Hemoglobin A1c 8.9 (H) 3.4 - 6.1 % Estimated Average Glucose 209 mg/dL MAGNESIUM BLOOD Result Value Ref Range Magnesium 2.9 (H) 1.7 - 2.3 mg/dL PHOSPHORUS BLOOD Result Value Ref Range Phosphorus 8.89 (H) 2.88 - 5.08 mg/dL DIFFERENTIAL MANUAL Result Value Ref Range WBC Auto 33.4 x10E9/L WBC Corrected nRBC Neutrophil % Manual 70 (H) 24 - 66 % Lymphocytes % Manual 19 (L) 22 - 61 % Monocytes % Manual 4 3 - 15 % Band % Manual 6 % Myelocytes % Manual 1 (H) <=0 % Cells Counted 100 # cells Platelet Estimation Adequate platelets Normal, Adequate platelets WBC Morph Normal Anisocytosis 1+ (Abnormal) None Poikilocytosis 2+ (Abnormal) None [place] Cells 2+ (Abnormal) None GLUCOSE - POINT OF CARE Result Value Ref Range Glucose WB/POC >500 (HH) 70 - 106 mg/dL Specimen Type Arterial/Capillary ED Course Initial Assessment & Plan: 15 y.o. female with IDDM, presenting in DKA. Following DKA protocol and starting insulin drip. Patient requires admission. 10:02 AM Labs reviewed. pH of 6.93, blood sugar greater than 500. Will discuss with endocrine. 10:20 AM Admission Call to PICU made at this time. 10:28 AM We discussed with the floor team the need for admission for further evaluation and treatment. The patient's family expresses understanding and agreement with the plan. Medical Decision Making Medical Decision Making I have reviewed the: Previous Chart, Nursing Notes, Vitals. I have interpreted the following results: Labs, Oxygen Saturation. I have discussed the case with Border Patrol Agent, Admitting Physician, Other (Endocrinology), Family/Caregiver. The total time providing critical care (excluding time spent for procedures): 45 minutes. Clinical Impression and Disposition Final Diagnosis: Final diagnoses: Diabetic ketoacidosis without coma associated with type 1 diabetes mellitus Disposition: Admit to PICU (under Dr. Rodriguez) 03/03/2021 10:28 AM Scribe Attestation By signing my name below, I, Heena Bergeron, attest that this documentation has been prepared under the direction and in the presence of Dr. Gil Electronically Signed: Heena Bergeron 03/03/2021 9:52 AM Provider Attestation I, Dr. Gil, personally performed [...] except if revised in my note. * Kristen Black RN - 03/03/2021 9:30 AM CDT Bed: 11 Expected date: Expected time: Means of arrival: Comments: 6 yo seizure documented in this encounter Miscellaneous Notes * Coding Query - David Rodriguez MD - 03/04/2021 7:10 PM CDT DOCUMENTATION CLARIFICATION REQUEST TO: Dr. Rodriguez FROM: Breana Giordano RN Email: [email or web address] Please clarify and document if the patient was being treated for - Metabolic encephalopathy - Other explanation of clinical findings (please specify) - Unable to determine (no explanation for clinical findings) The medical record reflects the following clinical evidence: Clinical Indicators: Per ED note presents to the ED with AMS and vomiting after not administering insulin for approximately 30+ hrs...?.Mental Status: She is disoriented , per H&P Given her degree of metabolic acidosis and somnolence, patient requires admission to PICU for close monitorin g , per 03/03/21 progress note Mental status improved with initial fluid resuscitation . Risk Factor(s): DKA Treatment: insulin drip, hourly glucose checks and neuro checks Please document your clinical opinion in the progress notes and discharge summary including the definitive and/or presumptive diagnosis, (suspected or probable), related to the above clinical findings. Please include clinical findings supporting your diagnosis. Select Edit, then F2 to respond Based on the report and documentation from the emergency departmentthe patient likely presented with mild metabolic encephalopathy that was resolved by the time the patient was admitted to ICU. documented in this encounter Plan of Treatment Scheduled Orders Name Type Priority Associated Diagnoses Order Schedule GLUCOSE - POINT OF CARE POCT No Acknowledgement Routine ONCE for 1 Occurrences starting 03/03/2021 until 03/03/2021 GLUCOSE - POINT OF CARE POCT No Acknowledgement Routine ONCE for 1 Occurrences starting 03/03/2021 until 03/03/2021 GLUCOSE - POINT OF CARE POCT No Acknowledgement Routine ONCE for 1 Occurrences starting 03/03/2021 until 03/03/2021 GLUCOSE - POINT OF CARE POCT No Acknowledgement Routine ONCE for 1 Occurrences starting 03/04/2021 until 03/04/2021 GLUCOSE - POINT OF CARE POCT No Acknowledgement Routine ONCE for 1 Occurrences starting 03/04/2021 until 03/04/2021 GLUCOSE - POINT OF CARE POCT No Acknowledgement Routine ONCE for 1 Occurrences starting 03/04/2021 until 03/04/2021 documented as of this encounter Procedures Procedure Name Priority Date/Time Associated Diagnosis Comments GLUCOSE - POINT OF CARE Routine 03/04/2021 2:05 PM CDT KETONES QUALITATIVE URINE AUTO Routine 03/04/2021 2:02 PM CDT GLUCOSE - POINT OF CARE Routine 03/04/2021 1:20 PM CDT GLUCOSE - POINT OF CARE Routine 03/04/2021 7:57 AM CDT BLOOD GASES CAP + LYTES GLUC CA+ PANEL Routine 03/04/2021 6:26 AM CDT GLUCOSE - POINT OF CARE Routine 03/04/2021 4:50 AM CDT BASIC METABOLIC PANEL (CALCIUM TOTAL) Timed 03/04/2021 4:42 AM CDT PHOSPHORUS BLOOD Timed 03/04/2021 4:42 AM CDT BLOOD GASES CAP + LYTES GLUC CA+ PANEL Timed 03/04/2021 2:08 AM CDT KETONES QUALITATIVE URINE AUTO Routine 03/04/2021 1:20 AM CDT GLUCOSE - POINT OF CARE Routine 03/04/2021 12:00 AM CDT BASIC METABOLIC PANEL (CALCIUM TOTAL) Timed 03/03/2021 11:57 PM CDT PHOSPHORUS BLOOD Timed 03/03/2021 11:5 7 PM CDT BLOOD GASES CAP + LYTES GLUC CA+ PANEL Timed 03/03/2021 11:11 PM CDT GLUCOSE - POINT OF CARE Routine 03/03/2021 10:35 PM CDT GLUCOSE - POINT OF CARE Routine 03/03/2021 9:13 PM CDT BASIC METABOLIC PANEL (CALCIUM TOTAL) Timed 03/03/2021 8:34 PM CDT PHOSPHORUS BLOOD Timed 03/03/2021 8:33 PM CDT GLUCOSE - POINT OF CARE Routine 03/03/2021 7:05 PM CDT KETONES QUALITATIVE URINE AUTO Routine 03/03/2021 6:31 PM CDT GLUCOSE - POINT OF CARE Routine 03/03/2021 6:29 PM CDT BLOOD GASES VIRY + COOX PANEL Timed 03/03/2021 6:18 PM CDT LYTES (NA K CL CO2) BLOOD Timed 03/03/2021 6:18 PM CDT GLUCOSE - POINT OF CARE Routine 03/03/2021 5:06 PM CDT BASIC METABOLIC PANEL (CALCIUM TOTAL) Timed 03/03/2021 4:37 PM CDT PHOSPHORUS BLOOD Timed 03/03/2021 4:37 PM CDT GLUCOSE - POINT OF CARE Routine 03/03/2021 4:06 PM CDT GLUCOSE - POINT OF CARE Routine 03/03/2021 3:15 PM CDT BLOOD GASES VIRY + COOX PANEL Timed 03/03/2021 2:21 PM CDT LYTES (NA K CL CO2) BLOOD Timed 03/03/2021 2:21 PM CDT GLUCOSE - POINT OF CARE Routine 03/03/2021 2:06 PM CDT BASIC METABOLIC PANEL (CALCIUM TOTAL) Timed 03/03/2021 12:15 PM CDT PHOSPHORUS BLOOD Timed 03/03/2021 12:1 5 PM CDT CK BLOOD Routine 03/03/2021 12:15 PM CDT GLUCOSE - POINT OF CARE Routine 03/03/2021 12:04 PM CDT KETONES QUALITATIVE URINE AUTO Routine 03/03/2021 11:45 AM CDT SARS-COV-2 (COVID-19)+INFLU A+B PCR RAPID STAT 03/03/2021 10:46 AM CDT HCG URINE QUALITATIVE - POCT (IP) INTERFACED Routine 03/03/2021 10:44 AM CDT URINALYSIS W/MICROSCOPIC REFLEX TO CULTURE STAT 03/03/2021 10:34 AM CDT ED CRITICAL CARE Routine 03/03/2021 9:52 AM CDT HEMOGLOBIN A1C STAT 03/03/2021 9:42 AM CDT DIFFERENTIAL MANUAL STAT 03/03/2021 9 :42 AM CDT CBC W AUTO DIFFERENTIAL STAT 03/03/2021 9:42 AM CDT BLOOD GASES VIRY STAT 03/03/2021 9:42 AM CDT BASIC METABOLIC PANEL (CALCIUM TOTAL) STAT 03/03/2021 9:42 AM CDT PHOSPHORUS BLOOD STAT 03/03/2021 9:42 AM CDT MAGNESIUM BLOOD STAT 03/03/2021 9:42 AM CDT GLUCOSE - POINT OF CARE Routine 03/03/2021 9:24 AM CDT documented in this encounter Results * (ABNORMAL) GLUCOSE - POINT OF CARE (03/04/2021 6:28 PM CDT) Blood BLOOD SPECIMEN / Unknown 03/04/2021 6:28 PM CDT 03/04/2021 6:37 PM CDT David Rodriguez MD LAB - POINT OF CARE ORDERABLES Performing Organization Address [facility]/ZIP Co de Phone Number [facility] [place] [address] * (ABNORMAL) GLUCOSE - POINT OF CARE (03/04/2021 2:05 PM CDT) Glucose WB/POC 268(H) 70 - 106 mg/dL 03/04/2021 2:15 PM CDT [facility] Specimen Type Arterial/C apillary 03/04/2021 2:15 PM CDT [facility] Blood BLOOD SPECIMEN / Unknown 03/04/2021 2:05 PM CDT 03/04/2021 2:15 PM CDT David Rodriguez MD LAB - POINT OF CARE ORDERABLES Performing Organization Address [facility] Co de Phone Number [facility] [address] [place] [phone] * (ABNORMAL) KETONES QUALITATIVE URINE AUTO (03/04/2021 2:02 PM CDT) Ketone UA 1+(A) Negative 03/04/2021 2:45 PM CDT [facility] Urine URINE / Unknown Collection / Unknown 03/04/2021 2:02 PM CDT 03/04/2021 2:14 PM CDT Narrative [facility] - 03/04/2021 2:45 PM CDT Luigi Gil MD LAB - URINALYSIS ORD ERABLES Performing Organization Address City/[facility]/ZIP Co de Phone Number [facility] [address] [place] [phone] * (ABNORMAL) GLUCOSE - POINT OF CARE (03/04/2021 1:20 PM CDT) Glucose WB/POC 272(H) 70 - 106 mg/dL 03/04/2021 2:15 PM CDT [facility] Specimen Type Arterial/C apillary 03/04/2021 2:15 PM CDT [facility] Blood BLOOD SPECIMEN / Unknown 03/04/2021 1:20 PM CDT 03/04/2021 2:15 PM CDT David Rodriguez MD LAB - POINT OF CARE ORDERABLES Performing Organization Address [facility] Co de Phone Number [facility] [address] [place] [phone] * (ABNORMAL) GLUCOSE - POINT OF CARE (03/04/2021 7:57 AM CDT) Glucose WB/POC 142(H) 70 - 106 mg/dL 03/04/2021 9:25 AM CDT [facility] Specimen Type Arterial/C apillary 03/04/2021 9:25 AM CDT [facility] Blood BLOOD SPECIMEN / Unknown 03/04/2021 7:57 AM CDT 03/04/2021 9:25 AM CDT David Rodriguez MD LAB - POINT OF CARE ORDERABLES Performing Organization Address [facility] de Phone Number [facility] [address] [place] [phone] * (ABNORMAL) BLOOD GASES CAP + LYTES GLUC CA+ PANEL (03/04/2021 6:26 AM CDT) pH Capillary 7.34(L) 7.35 - 7.45 pH 03/04/2021 6:34 AM T [facility] pCO2 Capillary 36 32 - 45 mm hg 03/04/2021 6:34 AM T [facility] pO2 Capillary 86(H) 40 - 50 mm hg 03/04/2021 6:34 AM T [facility] Hemoglobin Capillary 13.0 12.0 - 16.0 gm/dL 03/04/2021 6:34 AM T [facility] O2 Saturation Capillary 97 95 - 99 % 03/04/2021 6:34 AM T [facility] Oxyhemoglobin Capillary 95.5 94 - 98 % 03/04/2021 6:34 AM T [facility] Carboxyhemoglobin Capillary 0.7 0.5 - 1.5 % 03/04/2021 6:34 AM [facility] Methemoglobin Capillary 0.8 0.0 - 1.5 % 03/04/2021 6:34 AM [facility] O2 Content Capillary 17.5 15.0 - 23.0 % 03/04/2021 6:34 AM [facility] BE Capillary -5.8(L) -2.0 - 2.0 mmol/L 03/04/2021 6:34 AM [facility] P50 Capillary 24.41(L) 25.3 - 26.8 mm hg 03/04/2021 6:34 AM [facility] Sodium Whole Blood 144 136 - 146 mmol/L 03/04/2021 6:34 AM [facility] Potassium Whole Blood 3.7 3.4 - 4.5 mmol/L 03/04/2021 6:34 AM [facility] Chloride WB 112(H) 98 - 106 mmol/L 03/04/2021 6:34 AM T [facility] TCO2 Capillary 20.0 18 - 27 mmol/L 03/04/2021 6:34 AM [facility] Glucose WB 150(H) 70 - 106 mg/dL 03/04/2021 6:34 AM [facility] Calcium Ionized 1.30 mmol/L 6:34 AM [facility] Calcium Ionized Adjusted 1.26 1.15 - 1.29 mmol/L 03/04/2021 6:34 AM [facility] Temp 37.0 C 03/04/2021 6:34 AM [facility] Blood CAPILLARY BLOOD / Unknown Lab Capillary / Unknown 03/04/2021 6:26 AM CDT 03/04/2021 6:30 AM T David Rodriguez MD LAB - BLOOD GASES OR DERABLES [facility] [address] [place] [address] * (ABNORMAL) GLUCOSE - POINT OF CARE (03/04/2021 4:50 AM CDT) [facility] Glucose WB/POC 149(H) 70 - 106 mg/dL 03/04/2021 4:54 AM CDT [facility] Specimen Type Arterial/C apillary 03/04/2021 4:54 AM CDT [facility] Blood BLOOD SPECIMEN / Unknown 03/04/2021 4:50 AM CDT 03/04/2021 4:54 AM CDT David Rodriguez MD LAB - POINT OF CARE ORDERABLES Performing Organization Address [facility] Co de Phone Number [facility] [address] [place] [phone] * (ABNORMAL) PHOSPHORUS BLOOD (03/04/2021 4:42 AM CDT) [facility] Phosphorus 2.62(L) 2.88 - 5.08 mg/dL 03/04/2021 5:11 AM CDT [facility] Blood BLOOD SPECIMEN / Unknown Lab Venipuncture / Unknown 03/04/2021 4:42 AM CDT 03/04/2021 4:50 AM CDT David Rodriguez MD LAB - CHEMISTRY ORDE RABLES Performing Organization Address [facility] de Phone Number [facility] [address] [place] [phone] * (ABNORMAL) BASIC METABOLIC PANEL (CALCIUM TOTAL) (03/04/2021 4:42 AM CDT) [facility] Glucose 135(H) 70 - 105 mg/dL 03/04/2021 5:14 AM CDT [facility] Sodium 141 136 - 145 mmol/L 03/04/2021 5:14 AM CDT [facility] Potassium 3.7 3.5 - 5.1 mmol/L 03/04/2021 5:14 AM T [facility] Chloride 113(H) 98 - 107 mmol/L 03/04/2021 5:14 AM CDT [facility] CO2 17(L) 20 - 28 mmol/L 03/04/2021 5:14 AM T [facility] Calcium 9.09 9.08 - 10.48 mg/dL 03/04/2021 5:14 AM CDT [facility] Anion Gap 11 5 - 20 mmol/L 03/04/2021 5:14 AM CDT [facility] BUN 12.1 5.3 - 18.7 mg/dL 03/04/2021 5:14 AM T [facility] Creatinine 0.69 0.61 - 1.07 mg/dL 03/04/2021 5:14 AM CDT [facility] eGFR by MDRD 03/04/2021 5:14 AM T [facility] Comment: eGFR calculations are not performed for children under 18 years old. eGFR by MDRD 03/04/2021 5:14 AM T [facility] Comment: eGFR calculations are not performed for children under 18 years old. Blood BLOOD SPECIMEN / Unknown Lab Venipuncture / Unknown 03/04/2021 4:42 AM CDT 03/04/2021 4:50 AM CDT David Rodriguez MD LAB - CHEMISTRY ORDE RABELAINE Performing Organization Address City/[facility] Co de Phone Number [facility] [address] [place] [phone] * (ABNORMAL) GLUCOSE - POINT OF CARE (03/04/2021 3:03 AM CDT) Blood BLOOD SPECIMEN / Unknown 03/04/2021 3:03 AM CDT 03/04/2021 3:07 AM CDT David Rodriguez MD LAB - POINT OF CARE ORDERABLES Performing Organization Address City/[facility] Co de Phone Number [facility] [address] [place] [phone] * (ABNORMAL) BLOOD GASES CAP + LYTES GLUC CA+ PANEL (03/04/2021 2:08 AM CDT) pH Capillary 7.35 7.35 - 7.45 pH 03/04/2021 2:14 AM CDT [facility] pCO2 Capillary 32 32 - 45 mm hg 03/04/2021 2:14 AM CDT [facility] pO2 Capillary 67(H) 40 - 50 mm hg 03/04/2021 2:14 AM [facility] Hemoglobin Capillary 13.2 12.0 - 16.0 gm/dL 03/04/2021 2:14 AM [facility] O2 Saturation Capillary 94(L) 95 - 99 % 03/04/2021 2:14 AM [facility] Oxyhemoglobin Capillary 92.7(L) 94 - 98 % 03/04/2021 2:14 AM [facility] Carboxyhemoglobin Capillary 0.7 0.5 - 1.5 % 03/04/2021 2:14 AM [facility] Methemoglobin Capillary 0.9 0.0 - 1.5 % 03/04/2021 2:14 AM [facility] O2 Content Capillary 17.3 15.0 - 23.0 % 03/04/2021 2:14 AM [facility] BE Capillary -7.4(L) -2.0 - 2.0 mmol/L 03/04/2021 2:14 AM [facility] P50 Capillary 24.31(L) 25.3 - 26.8 mm hg 03/04/2021 2:14 AM [facility] Sodium Whole Blood 144 136 - 146 mmol/L 03/04/2021 2:14 AM [facility] Potassium Whole Blood 3.9 3.4 - 4.5 mmol/L 03/04/2021 2:14 AM [facility] Chloride WB 117(H) 98 - 106 mmol/L 03/04/2021 2:14 AM [facility] TCO2 Capillary 18.1 18 - 27 mmol/L 03/04/2021 2:14 AM [facility] Glucose WB 190(H) 70 - 106 mg/dL 03/04/2021 2:14 AM [facility] Calcium Ionized 1.25 mmol/L 2:14 AM [facility] Calcium Ionized Adjusted 1.22 1.15 - 1.29 mmol/L 03/04/2021 2:14 AM [facility] Temp 37.0 C 03/04/2021 2:14 AM [facility] Blood CAPILLARY BLOOD / Unknown Lab Capillary / Unknown 03/04/2021 2:08 AM CDT 03/04/2021 2:11 AM CDT David Rodriguez MD LAB - BLOOD GASES OR DERABLES Performing Organization Address [facility]/ZIP Co de Phone Number [facility] [address] [place] [phone] * (ABNORMAL) KETONES QUALITATIVE URINE AUTO (03/04/2021 1:20 AM CDT) Ketone UA 1+(A) Negative 03/04/2021 1:51 AM CDT [facility] Urine URINE / Unknown Collection / Unknown 03/04/2021 1:20 AM CDT 03/04/2021 1:40 AM CDT Narrative [facility] - 03/04/2021 1:51 AM CDT Luigi Gil MD LAB - URINALYSIS ORD ERABLES Performing Organization Address [facility] Co de Phone Number [facility] [address] [place] [phone] * (ABNORMAL) GLUCOSE - POINT OF CARE (03/04/2021 1:00 AM CDT) Blood BLOOD SPECIMEN / Unknown 03/04/2021 1:00 AM CDT 03/04/2021 2:09 AM CDT David Rodriguez MD LAB - POINT OF CARE ORDERABLES Performing Organization Address [facility] Co de Phone Number [facility] [address] [place] [phone] * (ABNORMAL) GLUCOSE - POINT OF CARE (03/04/2021 12:00 AM CDT) Glucose WB/POC 191(H) 70 - 106 mg/dL 03/04/2021 12:05 AM CDT [facility] Specimen Type Venous 03/04/2021 12:05 AM CDT [facility] Blood BLOOD SPECIMEN / Unknown 03/04/2021 12:00 AM CDT 03/04/2021 12:04 AM CDT Narrative Authorizing Provider Result Geoff Rodriguez MD LAB - POINT OF CARE ORDERABLES Performing Organization Address [facility]/ZIP Co de Phone Number [facility] [address] [place] [address] * (ABNORMAL) PHOSPHORUS BLOOD (03/03/2021 11:57 PM CDT) Phosphorus 2.71(L) 2.88 - 5.08 mg/dL 03/04/2021 12:24 AM CDT [facility] Blood BLOOD SPECIMEN / Unknown Lab Venipuncture / Unknown 03/03/2021 11:57 PM CDT 03/04/2021 12:04 AM CDT Narrative Authorizing Provider Result Geoff Rodriguez MD LAB - CHEMISTRY ORDE RABLES Performing Organization Address [facility] Co de Phone Number [facility] [address] [place] [phone] * (ABNORMAL) BASIC METABOLIC PANEL (CALCIUM TOTAL) (03/03/2021 11:57 PM CDT) Glucose 193(H) 70 - 105 mg/dL 03/04/2021 12:37 AM T [facility] Sodium 143 136 - 145 mmol/L 03/04/2021 12:37 AM T [facility] Potassium 3.7 3.5 - 5.1 mmol/L 03/04/2021 12:37 AM T [facility] Chloride 113(H) 98 - 107 mmol/L 03/04/2021 12:37 AM T [facility] CO2 15(L) 20 - 28 mmol/L 03/04/2021 12:37 AM T [facility] Calcium 9.07(L) 9.08 - 10.48 mg/dL 03/04/2021 12:37 AM [facility] Anion Gap 15 5 - 20 mmol/L 03/04/2021 12:37 AM T [facility] BUN 16.3 5.3 - 18.7 mg/dL 03/04/2021 12:37 AM T [facility] Creatinine 0.64 0.61 - 1.07 mg/dL 03/04/2021 12:37 AM T [facility] eGFR by MDRD 03/04/2021 12:37 AM [facility] Comment: eGFR calculations are not performed for children under 18 years old. eGFR by MDRD 03/04/2021 12:37 AM T [facility] Comment: eGFR calculations are not performed for children under 18 years old. Blood BLOOD SPECIMEN / Unknown Lab Venipuncture / Unknown 03/03/2021 11:57 PM CDT 03/04/2021 12:04 AM T David Rodriguez MD LAB - CHEMISTRY ORDE [facility] Organization Address City/State/[facility] Co de Phone Number [facility] [place] [address] * (ABNORMAL) BLOOD GASES CAP + LYTES GLUC CA+ PANEL (03/03/2021 11:11 PM T) pH Capillary 7.31(L) 7.35 - 7.45 pH 03/03/2021 11:19 PM [facility] pCO2 Capillary 32 32 - 45 mm hg 03/03/2021 11:19 PM [facility] [facility] pO2 Capillary 66(H) 40 - 50 mm hg 03/03/2021 11:19 PM [facility] Hemoglobin Capillary 13.4 12.0 - 16.0 gm/dL 03/03/2021 11:19 PM [facility] O2 Saturation Capillary 94(L) 95 - 99 % 03/03/2021 11:19 PM [facility] Oxyhemoglobin Capillary 92.6(L) 94 - 98 % 03/03/2021 11:19 PM [facility] Carboxyhemoglobin Capillary 0.9 0.5 - 1.5 % 03/03/2021 11:19 PM [facility] Methemoglobin Capillary 0.6 0.0 - 1.5 % 03/03/2021 11:19 PM [facility] O2 Content Capillary 17.5 15.0 - 23.0 % 03/03/2021 11:19 PM [facility] BE Capillary -9.0(L) -2.0 - 2.0 mmol/L 03/03/2021 11:19 PM CDT [facility] P50 Capillary 24.46(L) 25.3 - 26.8 mm hg 03/03/2021 11:19 PM CDT [facility] Sodium Whole Blood 146 136 - 146 mmol/L 03/03/2021 11:19 PM T [facility] Potassium Whole Blood 4.4 3.4 - 4.5 mmol/L 03/03/2021 11:19 PM T [facility] Chloride WB 117(H) 98 - 106 mmol/L 03/03/2021 11:19 PM T [facility] TCO2 Capillary 17.0(L) 18 - 27 mmol/L 03/03/2021 11:19 PM T [facility] Glucose WB 207(H) 70 - 106 mg/dL 03/03/2021 11:19 PM T [facility] Calcium Ionized 1.34 mmol/L 11:19 PM T [facility] Calcium Ionized Adjusted 1.28 1.15 - 1.29 mmol/L 03/03/2021 11:19 PM T [facility] Temp 37.0 C 03/03/2021 11:19 PM T [facility] Blood CAPILLARY BLOOD / Unknown Lab Capillary / Unknown 03/03/2021 11:11 PM CDT 03/03/2021 11:15 PM CDT David Rodriguez MD LAB - BLOOD GASES OR DERABLES Performing Organization Address City/State/[facility] Phone Number [facility] [address] [place] [phone] * (ABNORMAL) GLUCOSE - POINT OF CARE (03/03/2021 10:35 PM CDT) Glucose WB/POC 197(H) 70 - 106 mg/dL 03/03/2021 10:39 PM CDT [facility] Specimen Type Arterial/C apillary 03/03/2021 10:39 PM CDT [facility] Blood BLOOD SPECIMEN / Unknown 03/03/2021 10:35 PM CDT 03/03/2021 10:39 PM CDT David Rodriguez MD LAB - POINT OF CARE ORDERABLES Performing Organization Address [facility]/ZIP Co de Phone Number [facility] [address] [place] [address] * (ABNORMAL) GLUCOSE - POINT OF CARE (03/03/2021 9:13 PM CDT) Glucose WB/POC 232(H) 70 - 106 mg/dL 03/03/2021 9:17 PM CDT [facility] Specimen Type Arterial/C apillary 03/03/2021 9:17 PM CDT [facility] Blood BLOOD SPECIMEN / Unknown 03/03/2021 9:13 PM CDT 03/03/2021 9:17 PM CDT David Rodriguez MD LAB - POINT OF CARE ORDERABLES Performing Organization Address [facility] Co de Phone Number [facility] [address] [place] [phone] * (ABNORMAL) BASIC METABOLIC PANEL (CALCIUM TOTAL) (03/03/2021 8:34 PM CDT) Glucose 218(H) 70 - 105 mg/dL 03/03/2021 9:00 PM T [facility] Sodium 140 136 - 145 mmol/L 03/03/2021 9:00 PM T [facility] Potassium 4.8 3.5 - 5.1 mmol/L 03/03/2021 9:00 PM T [facility] Chloride 113(H) 98 - 107 mmol/L 03/03/2021 9:00 PM T [facility] CO2 12(L) 20 - 28 mmol/L 03/03/2021 9:00 PM T [facility] Calcium 9.45 9.08 - 10.48 mg/dL 03/03/2021 9:00 PM T [facility] Anion Gap 15 5 - 20 mmol/L 03/03/2021 9:00 PM T [facility] BUN 18.4 5.3 - 18.7 mg/dL 03/03/2021 9:00 PM T [facility] Creatinine 0.67 0.61 - 1.07 mg/dL 03/03/2021 9:00 PM CDT [facility] eGFR by MDRD 03/03/2021 9:00 PM CDT [facility] Comment: eGFR calculations are not performed for children under 18 years old. eGFR by MDRD 03/03/2021 9:00 PM CDT [facility] Comment: eGFR calculations are not performed for children under 18 years old. Blood BLOOD SPECIMEN / Unknown Lab Venipuncture / Unknown 03/03/2021 8:34 PM CDT 03/03/2021 8:37 PM CDT David Rodriguez MD LAB - CHEMISTRY MANJULA ZHAO Performing Organization Address City/[facility]/ZIP Co de Phone Number [facility] [address] [place] [phone] * PHOSPHORUS BLOOD (03/03/2021 8:33 PM CDT) Phosphorus 3.29 2.88 - 5.08 mg/dL 03/03/2021 8:55 PM CDT [facility] Blood BLOOD SPECIMEN / Unknown Lab Venipuncture / Unknown 03/03/2021 8:33 PM CDT 03/03/2021 8:36 PM CDT David Rodriguez MD LAB - CHEMISTRY ORDAubrey ZHAO Performing Organization Address [facility]/ZIP Co de Phone Number [facility] [address] [place] [phone] * (ABNORMAL) GLUCOSE - POINT OF CARE (03/03/2021 8:29 PM CDT) Blood BLOOD SPECIMEN / Unknown 03/03/2021 8:29 PM CDT 03/03/2021 8:35 PM CDT Narrative Authorizing Provider Result Geoff Rodriguez MD LAB - POINT OF CARE ORDERABLES Performing Organization Address [facility]/ZIP Co de Phone Number [facility] [address] [place] [phone] * (ABNORMAL) GLUCOSE - POINT OF CARE (03/03/2021 7:05 PM CDT) Glucose WB/POC 231(H) 70 - 106 mg/dL 03/03/2021 7:29 PM CDT [facility] Specimen Type Arterial/C apillary 03/03/2021 7:29 PM CDT [facility] Blood BLOOD SPECIMEN / Unknown 03/03/2021 7:05 PM CDT 03/03/2021 7:29 PM CDT David Rodriguez MD LAB - POINT OF CARE ORDERABLES [facility] [address] [place] [address] * (ABNORMAL) KETONES QUALITATIVE URINE AUTO (03/03/2021 6:31 PM CDT) Ketone UA 2+(AA) Negative 03/03/2021 6:45 PM CDT [facility] Urine URINE / Unknown Collection / Unknown 03/03/2021 6:31 PM CDT 03/03/2021 6:37 PM CDT Narrative [facility] - 03/03/2021 6:45 PM CDT Luigi Gil MD LAB - URINALYSIS ORD ERABLES [facility] [address] [place] [phone] * (ABNORMAL) GLUCOSE - POINT OF CARE (03/03/2021 6:29 PM CDT) Glucose WB/POC 231(H) 70 - 106 mg/dL 03/03/2021 6:36 PM CDT [facility] Specimen Type Arterial/C apillary 03/03/2021 6:36 PM CDT [facility] Blood BLOOD SPECIMEN / Unknown 03/03/2021 6:29 PM CDT 03/03/2021 6:36 PM CDT David Rodriguez MD LAB - POINT OF CARE ORDERABLES Performing Organization Address [facility]/ZIP Co de Phone Number [facility] [address] [place] [address] * (ABNORMAL) LYTES (NA K CL CO2) BLOOD (03/03/2021 6:18 PM CDT) Sodium 138 136 - 145 mmol/L 03/03/2021 6:46 PM CDT [facility] Potassium 5.2(H) 3.5 - 5.1 mmol/L 03/03/2021 6:46 PM CDT [facility] Chloride 112(H) 98 - 107 mmol/L 03/03/2021 6:46 PM CDT [facility] CO2 9(LL) 20 - 28 mmol/L 03/03/2021 6:46 PM CDT [facility] Anion Gap 17 5 - 20 mmol/L 03/03/2021 6:46 PM CDT [facility] Blood BLOOD SPECIMEN / Unknown Lab Venipuncture / Unknown 03/03/2021 6:18 PM CDT 03/03/2021 6:31 PM CDT David Rodriguez MD LAB - CHEMISTRY ORDE CECE Performing Organization Address [facility]/ZIP Co de Phone Number [facility] [address] [place] [phone] * (ABNORMAL) BLOOD GASES VIRY + COOX PANEL (03/03/2021 6:18 PM CDT) pH Venous 7.22(L) 7.32 - 7.42 pH 03/03/2021 6:28 PM CDT [facility] pCO2 Venous 29(L) 41 - 51 mm hg 03/03/2021 6:28 PM CDT [facility] pO2 Venous 76(H) 30 - 55 mm hg 03/03/2021 6:28 PM CDT [facility] BE Venous -15.1(L) -2.0 - 2.0 mmol/L 03/03/2021 6:28 PM T [facility] O2 Saturation Venous 95 >70 % 02/21 6:28 PM T [facility] Hemoglobin Venous 14.1 12.0 - 16.0 gm/dL 03/03/2021 6:28 PM CDT [facility] Oxyhemoglobin Venous 93(L) 94 - 98 % 03/03/2021 6:28 PM CDT [facility] Carboxyhemoglobin Venous 0.7 0.5 - 1.5 % 03/03/2021 6:28 PM CDT [facility] Methemoglobin Venous 0.7 0.0 - 1.5 % 03/03/2021 6:28 PM CDT [facility] O2 Content Venous 18.6 % 021 6:28 PM CDT [facility] P50 Venous 27.68 mm hg 03/03/2021 6:28 PM CDT [facility] Temp 37.0 C 03/03/2021 6:28 PM CDT [facility] Blood BLOOD SPECIMEN / Unknown Lab Venipuncture / Unknown 03/03/2021 6:18 PM CDT 03/03/2021 6:24 PM CDT David Rodriguez MD LAB - BLOOD GASES OR DERABLES Performing Organization Address City/[facility]/ZIP Co de Phone Number [facility] [address] [place] [phone] * (ABNORMAL) GLUCOSE - POINT OF CARE (03/03/2021 5:06 PM CDT) [facility] Glucose WB/POC 244(H) 70 - 106 mg/dL 03/03/2021 5:10 PM CDT [facility] Specimen Type Arterial/C apillary 03/03/2021 5:10 PM CDT [facility] Blood BLOOD SPECIMEN / Unknown 03/03/2021 5:06 PM CDT 03/03/2021 5:09 PM CDT David Rodriguez MD LAB - POINT OF CARE ORDERABLES [facility] [address] [place] [phone] * PHOSPHORUS BLOOD (03/03/2021 4:37 PM CDT) Phosphorus 3.31 2.88 - 5.08 mg/dL 03/03/2021 5:05 PM T [facility] Blood BLOOD SPECIMEN / Unknown Lab Venipuncture / Unknown 03/03/2021 4:37 PM CDT 03/03/2021 4:49 PM CDT David Rodriguez MD LAB - CHEMISTRY MANJULA ZHAO [facility] Organization Address City/State/[facility] Co de Phone Number [facility] [place] [address] * (ABNORMAL) BASIC METABOLIC PANEL (CALCIUM TOTAL) (03/03/2021 4:37 PM CDT) Pathologist [facility] Glucose 246(H) 70 - 105 mg/dL 03/03/2021 5:11 PM [facility] Sodium 141 136 - 145 mmol/L 03/03/2021 5:11 PM [facility] Potassium 6.0(H) 3.5 - 5.1 mmol/L 03/03/2021 5:11 PM [facility] Comment:Slightly hemolyzed Chloride 113(H) 98 - 107 mmol/L 03/03/2021 5:11 PM [facility] CO2 8(LL) 20 - 28 mmol/L 03/03/2021 5:11 PM [facility] Calcium 9.55 9.08 - 10.48 mg/dL 03/03/2021 5:11 PM [facility] Anion Gap 20 5 - 20 mmol/L 03/03/2021 5:11 PM [facility] BUN 22.3(H) 5.3 - 18.7 mg/dL 03/03/2021 5:11 PM [facility] Creatinine 0.78 0.61 - 1.07 mg/dL 03/03/2021 5:11 PM [facility] eGFR by MDRD 03/03/2021 5:11 PM [facility] Comment: eGFR calculations are not performed for children under 18 years old. eGFR by MDRD 03/03/2021 5:11 PM [facility] Comment: eGFR calculations are not performed for children under 18 years old. Blood BLOOD SPECIMEN / Unknown Lab Venipuncture / Unknown 03/03/2021 4:37 PM CDT 03/03/2021 4:49 PM CDT David Rodriguez MD LAB - CHEMISTRY MANJULA HAWAELAINE Performing Organization Address [facility]/ZIP Co de Phone Number [facility] [place] [address] * (ABNORMAL) GLUCOSE - POINT OF CARE (03/03/2021 4:06 PM CDT) Glucose WB/POC 224(H) 70 - 106 mg/dL 03/03/2021 5:10 PM CDT [facility] Specimen Type Arterial/C apillary 03/03/2021 5:10 PM CDT [facility] Blood BLOOD SPECIMEN / Unknown 03/03/2021 4:06 PM CDT 03/03/2021 5:09 PM CDT David Rordiguez MD LAB - POINT OF CARE ORDERABLES Performing Organization Address [facility]/ZIP Co de Phone Number [facility] [place] [address] * (ABNORMAL) GLUCOSE - POINT OF CARE (03/03/2021 3:15 PM CDT) Glucose WB/POC 231(H) 70 - 106 mg/dL 03/03/2021 3:21 PM CDT [facility] Specimen Type Arterial/C apillary 03/03/2021 3:21 PM CDT [facility] Blood BLOOD SPECIMEN / Unknown 03/03/2021 3:15 PM CDT 03/03/2021 3:21 PM CDT Narrative Authorizing Provider Result Geoff Rodriguez MD LAB - POINT OF CARE ORDERABLES Performing Organization Address [facility]/ZIP Co de Phone Number [facility] [address] [place] [phone] * (ABNORMAL) LYTES (NA K CL CO2) BLOOD (03/03/2021 2:21 PM CDT) Pathologist [facility] Sodium 141 136 - 145 mmol/L 03/03/2021 2:43 PM CDT [facility] Potassium 5.3(H) 3.5 - 5.1 mmol/L 03/03/2021 2:43 PM CDT [facility] Comment:Slight hemolysis Chloride 112(H) 98 - 107 mmol/L 03/03/2021 2:43 PM CDT [facility] CO2 <5(LL) 20 - 28 mmol/L 03/03/2021 2:43 PM CDT [facility] Anion Gap 03/03/2021 2:43 PM CDT [facility] Comment:Unable to calculate Blood BLOOD SPECIMEN / Unknown Lab Venipuncture / Unknown 03/03/2021 2:21 PM CDT 03/03/2021 2:28 PM CDT David Rodriguez MD LAB - CHEMISTRY MANJULA ZHAO [facility] Organization Address City/[facility] de Phone Number [facility] [address] [place], [place] [phone] * (ABNORMAL) BLOOD GASES VIRY + COOX PANEL (03/03/2021 2:21 PM CDT) Pathologist [facility] pH Venous 7.10(L) 7.32 - 7.42 pH 03/03/2021 2:36 PM T [facility] pCO2 Venous 25(L) 41 - 51 mm hg 03/03/2021 2:36 PM T [facility] pO2 Venous 80(H) 30 - 55 mm hg 03/03/2021 2:36 PM T [facility] BE Venous -20.6(L) -2.0 - 2.0 mmol/L 03/03/2021 2:36 PM CDT [facility] O2 Saturation Venous 93 >70 % 02/21 2:36 PM T [facility] Hemoglobin Venous 15.5 12.0 - 16.0 gm/dL 03/03/2021 2:36 PM T [facility] Oxyhemoglobin Venous 92(L) 94 - 98 % 03/03/2021 2:36 PM T [facility] Carboxyhemoglobin Venous 0.3(L) 0.5 - 1.5 % 03/03/2021 2:36 PM CDT [facility] Methemoglobin Venous 0.6 0.0 - 1.5 % 03/03/2021 2:36 PM CDT [facility] O2 Content Venous 20.1 % 021 2:36 PM CDT [facility] P50 Venous 32.63 mm hg 03/03/2021 2:36 PM CDT [facility] Temp 37.0 C 03/03/2021 2:36 PM CDT [facility] Blood BLOOD SPECIMEN / Unknown Lab Venipuncture / Unknown 03/03/2021 2:21 PM CDT 03/03/2021 2:24 PM CDT David Rodriguez MD LAB - BLOOD GASES OR DERABLES Performing Organization Address City/[facility] Co de Phone Number [facility] [address] [place] [phone] * (ABNORMAL) GLUCOSE - POINT OF CARE (03/03/2021 2:06 PM CDT) [facility] Glucose WB/POC 276(H) 70 - 106 mg/dL 03/03/2021 2:12 PM CDT [facility] Specimen Type Arterial/C apillary 03/03/2021 2:12 PM CDT [facility] Blood BLOOD SPECIMEN / Unknown 03/03/2021 2:06 PM CDT 03/03/2021 2:12 PM CDT David Rodriguez MD LAB - POINT OF CARE ORDERABLES Performing Organization Address City/[facility] Co de Phone Number [facility] [address] [place] [phone] * (ABNORMAL) GLUCOSE - POINT OF CARE (03/03/2021 1:05 PM CDT) Blood BLOOD SPECIMEN / Unknown 03/03/2021 1:05 PM CDT 03/03/2021 2:12 PM CDT David Rodriguez MD LAB - POINT OF CARE ORDERABLES Performing Organization Address [facility]/ZIP Co de Phone Number [facility] [address] [place] [address] * (ABNORMAL) PHOSPHORUS BLOOD (03/03/2021 12:15 PM CDT) Phosphorus 5.61(H) 2.88 - 5.08 mg/dL 03/03/2021 1:06 PM CDT [facility] Blood BLOOD SPECIMEN / Unknown Lab Capillary / Unknown 03/03/2021 12:15 PM CDT 03/03/2021 12:53 PM CDT David Rodriguez MD LAB - CHEMISTRY ORDE CECE Performing Organization Address [facility] Co de Phone Number [facility] [address] [place] [phone] * (ABNORMAL) BASIC METABOLIC PANEL (CALCIUM TOTAL) (03/03/2021 12:15 PM CDT) Glucose 363(H) 70 - 105 mg/dL 03/03/2021 12:51 PM CDT [facility] Sodium 140 136 - 145 mmol/L 03/03/2021 12:51 PM T [facility] Potassium 5.5(H) 3.5 - 5.1 mmol/L 03/03/2021 12:51 PM T [facility] Comment:Moderate hemolysis Chloride 109(H) 98 - 107 mmol/L 03/03/2021 12:51 PM T [facility] CO2 <5(LL) 20 - 28 mmol/L 03/03/2021 12:51 PM T [facility] Calcium 9.81 9.08 - 10.48 mg/dL 03/03/2021 12:51 PM T [facility] Anion Gap 03/03/2021 12:51 PM [facility] Comment: Assay measuring below lower limits of linearity, calculated result not valid in this circumstance. BUN 26.0(H) 5.3 - 18.7 mg/dL 03/03/2021 12:51 PM T [facility] Creatinine 0.95 0.61 - 1.07 mg/dL 03/03/2021 12:51 PM CDT [facility] eGFR by MDRD 03/03/2021 12:51 PM CDT [facility] Comment: eGFR calculations are not performed for children under 18 years old. eGFR by MDRD 03/03/2021 12:51 PM CDT [facility] Comment: eGFR calculations are not performed for children under 18 years old. Blood BLOOD SPECIMEN / Unknown Lab Capillary / Unknown 03/03/2021 12:15 PM CDT 03/03/2021 12:32 PM CDT David Rodriguez MD LAB - CHEMISTRY MANJULA ZHAO Performing Organization Address City/[facility]/ZIP Co de Phone Number [facility] [address] [place] [phone] * CK BLOOD (03/03/2021 12:15 PM CDT) Pathologist [facility] CK 102 29 - 168 U/L 03/03/2021 12:50 PM CDT [facility] Blood BLOOD SPECIMEN / Unknown Lab Capillary / Unknown 03/03/2021 12:15 PM CDT 03/03/2021 12:32 PM CDT David Rodriguez MD LAB - CHEMISTRY MANJULA ZHAO Performing Organization Address [facility]/ZIP Co de Phone Number [facility] [address] [place] [phone] * (ABNORMAL) GLUCOSE - POINT OF CARE (03/03/2021 12:04 PM CDT) Pathologist [facility] Glucose WB/POC 322(H) 70 - 106 mg/dL 03/03/2021 12:08 PM CDT [facility] Specimen Type Venous 03/03/2021 12:08 PM CDT [facility] Blood BLOOD SPECIMEN / Unknown 03/03/2021 12:04 PM CDT 03/03/2021 12:08 PM CDT David Rodriguez MD LAB - POINT OF CARE ORDERABLES [facility] [address] [place] [phone] * (ABNORMAL) KETONES QUALITATIVE URINE AUTO (03/03/2021 11:45 AM CDT) [facility] Ketone UA 2+(AA) Negative 03/03/2021 12:33 PM CDT [facility] Urine URINE / Unknown Collection / Unknown 03/03/2021 11:45 AM CDT 03/03/2021 11:49 AM CDT Narrative [facility] - 03/03/2021 12:33 PM CDT Luigi Gil MD LAB - URINALYSIS ORD ERABLES Performing Organization Address [facility]/ZIP Co de Phone Number [facility] [address] [place] [phone] * (ABNORMAL) GLUCOSE - POINT OF CARE (03/03/2021 11:09 AM CDT) Blood BLOOD SPECIMEN / Unknown 03/03/2021 11:09 AM CDT 03/03/2021 7:49 PM CDT Luigi Gil MD LAB - POINT OF CARE ORDERABLES Performing Organization Address [facility]/ZIP Co de Phone Number [facility] [address] [place] [phone] * SARS-COV-2 (COVID-19)+INFLU A+B PCR RAPID (03/03/2021 10:46 AM CDT) [facility] COVID-19 PCR Not detected Not detected 03/03/20 11:11 AM CDT [facility] Influenza A PCR Not detected Not detected 03/03/2021 11:11 AM CDT [facility] Influenza B PCR Not detected Not detected 03/03/2021 11:11 AM CDT [facility] Microbiology SPECIMEN FROM NASOPHARYNGEAL STRUCTURE / Unknown Collection / Unknown 03/03/2021 10:46 AM CDT 03/03/2021 10:46 AM CDT Narrative [facility] - 03/03/2021 11:11 AM CDT Influenza [...] acid amplification assay performance was validated by [facility]. This test has been authorized by the [...] - MICROBIOLOGY O RDERABLES Performing Organization Address [facility] Co de Phone Number [facility] [address] [place] [phone] * HCG URINE QUALITATIVE - POCT (IP) INTERFACED (03/03/2021 10:44 AM CDT) HCG Qual Urine Negative Negative 03/03/2021 10:54 AM CDT [facility] Urine URINE / Unknown 03/03/2021 1 0:44 AM CDT 03/03/2021 10:54 AM CDT Luigi Gil MD LAB - POINT OF CARE ORDERABLES Performing Organization Address [facility] Co de Phone Number [facility] [address] [place] [phone] * (ABNORMAL) URINALYSIS W/MICROSCOPIC REFLEX TO CULTURE (03/03/2021 10:34 AM [facility]) Color UA Straw Straw, Yellow 03/03/2021 10:58 AM [facility] Clarity UA Clear Clear 03/03/2021 10:58 AM [facility] Glucose UA 3+(AA) Negative 03/03/2021 10:58 AM [facility] Bilirubin UA Negative Negative 03/03/2021 10:58 AM [facility] Ketone UA 2+(AA) Negative 03/03/2021 10:58 AM [facility] Specific [place] UA 1.016 1.005 - 1.030 03/03/2021 10:58 AM [facility] Blood UA 1+(A) Negative 03/03/2021 10:58 AM [facility] pH UA 5.0 5.0 - 8.0 pH 03/03/2021 10:58 AM [facility] Protein UA 1+(A) Negative 03/03/2021 10:58 AM [facility] Urobilinogen UA Negative Negative mg/dL 03/03/2021 10:58 AM [facility] Nitrite UA Negative Negative 03/03/2021 10:58 AM [facility] Leukocyte UA Negative Negative 03/03/2021 10:58 AM [facility] RBC UA 0-2 None Seen, 0-2, 3-5 # /hpf 03/03/2021 10:58 AM [facility] WBC UA 0-5 None Seen, 0-5 # /hpf 03/03/2021 10:58 AM [facility] Bacteria UA Trace(A) None Seen 03/03/2021 10:58 AM [facility] Squamous Epithelial Cells 0-2 None Seen, 0-2, 3-5 /hpf 03/03/2021 10:58 AM [facility] Mucus UA 1+ /LPF 03/03/2021 10:58 AM [facility] Reflex Status Culture not indicated 03/03/2021 10:58 AM [facility] Urine URINE SPECIMEN OBTAINED BY CLEAN CATCH PROCEDURE / Unknown Collection / Unknown 03/03/2021 10:34 AM CDT 03/03/2021 10:46 AM CDT Narrative [facility] - 03/03/2021 10:58 AM CDT Luigi Gil MD LAB - URINALYSIS ORD ERABLES [facility] [place] [address] * Critical Care (03/03/2021 9:52 AM CDT) [...] or life-threatening deterioration of the following conditions: ??QUARRY WORKER failure or compromise, respiratory failure and endocrine [...] WBC Auto 33.4 x10E9/L 03/03/2021 10:18 AM CDT [facility] WBC Corrected 03/03/2021 10:18 AM CDT [facility] nRBC 03/03/2021 10:18 AM CDT [facility] Neutrophil % Manual 70(H) 24 - 66 % 03/03/2021 10:18 AM T [facility] Lymphocytes % Manual 19(L) 22 - 61 % 03/03/2021 10:18 AM T [facility] Monocytes % Manual 4 3 - 15 % 03/03/2021 10:18 AM T [facility] Band % Manual 6 % 03/03/2021 10:18 AM T [facility] Myelocytes % Manual 1(H) <=0 % 03/03/2021 10:18 AM T [facility] Cells Counted 100 # cells 03/03/2021 10:18 AM T [facility] Platelet Estimation Adequate platelets Normal, Adequate platelets 03/03/2021 10:18 AM T [facility] WBC Morph Normal 03/03/2021 10:18 AM T [facility] Anisocytosis 1+(A) None 03/03/2021 10:18 AM T [facility] Poikilocytosis 2+(A) None 03/03/2021 10:18 AM T [facility] [place] Cells 2+(A) None 03/03/2021 10:18 AM CDT [facility] Blood BLOOD SPECIMEN / Unknown Venipuncture / Unknown 03/03/2021 9:42 AM CDT 03/03/2021 9:45 AM CDT Luigi Gil MD LAB - HEMATOLOGY ORD ERABLES Performing Organization Address City/[facility]/ZIP Co de Phone Number [facility] [place] [address] * (ABNORMAL) PHOSPHORUS BLOOD (03/03/2021 9:42 AM CDT) Phosphorus 8.89(H) 2.88 - 5.08 mg/dL 03/03/2021 10:13 AM CDT [facility] Blood BLOOD SPECIMEN / Unknown Venipuncture / Unknown 03/03/2021 9:42 AM CDT 03/03/2021 9:45 AM CDT Luigi Gil MD LAB - CHEMISTRY ORDE CEEC Performing Organization Address City/[facility]/ZIP Co de Phone Number [facility] [address] [place] [address] * (ABNORMAL) MAGNESIUM BLOOD (03/03/2021 9:42 AM CDT) Pathologist [facility] Magnesium 2.9(H) 1.7 - 2.3 mg/dL 03/03/2021 10:06 AM CDT [facility] Blood BLOOD SPECIMEN / Unknown Venipuncture / Unknown 03/03/2021 9:42 AM CDT 03/03/2021 9:45 AM CDT Luigi Gil MD LAB - CHEMISTRY MANJULA ZHAO Performing Organization Address [facility]/ZIP Co de Phone Number [facility] [address] [place] [phone] * (ABNORMAL) HEMOGLOBIN A1C (03/03/2021 9:42 AM CDT) [facility] Hemoglobin A1c 8.9(H) 3.4 - 6.1 % 03/03/2021 10:13 AM CDT [facility] Estimated Average Glucose 209 mg/dL 03/03/2021 10:13 AM CDT [facility] Blood BLOOD SPECIMEN / Unknown Venipuncture / Unknown 03/03/2021 9:42 AM CDT 03/03/2021 9:45 AM CDT Luigi Gil MD LAB - CHEMISTRY MANJULA ZHAO Performing Organization Address City/[facility]/ZIP Co de Phone Number [facility] [address] [place] [phone] * (ABNORMAL) BLOOD GASES IVRY (03/03/2021 9:42 AM CDT) pH Venous 6.93(L) 7.32 - 7.42 pH 03/03/2021 9:48 AM CDT [facility] pCO2 Venous 31(L) 41 - 51 mm hg 03/03/2021 9:48 AM CDT [facility] pO2 Venous 55 30 - 55 mm hg 03/03/2021 9:48 AM CDT [facility] BE Venous -23.7(L) -2.0 - 2.0 mmol/L 03/03/2021 9:48 AM T [facility] O2 Saturation Venous 68(L) >70 % 02/21 9:48 AM T [facility] Oxyhemoglobin Venous 68(L) 94 - 98 % 03/03/2021 9:48 AM T [facility] Hemoglobin Venous 14.6 12.0 - 16.0 gm/dL 03/03/2021 9:48 AM T [facility] Carboxyhemoglobin Venous 0.0(L) 0.5 - 1.5 % 03/03/2021 9:48 AM T [facility] Methemoglobin Venous 0.9 0.0 - 1.5 % 03/03/2021 9:48 AM T [facility] O2 Content Venous 13.9 % 021 9:48 AM [facility] P50 Venous 42.86 mm hg 03/03/2021 9:48 AM T [facility] Temp 37.0 C 03/03/2021 9:48 AM [facility] Blood BLOOD SPECIMEN / Unknown Venipuncture / Unknown 03/03/2021 9:42 AM CDT 03/03/2021 9:46 AM CDT Luigi Gil MD LAB - BLOOD GASES OR DERABLES Performing Organization Address [facility] de Phone Number [facility] [address] [place], [place] [id number] * (ABNORMAL) CBC W AUTO DIFFERENTIAL (03/03/2021 9:42 AM CDT) WBC 33.4(HH) 4.5 - 14.5 x10E9/L 03/03/2021 9:54 AM T [facility] WBC Corrected 03/03/2021 9:54 AM T [facility] RBC 5.13(H) 4.10 - 5.10 x10E12/L 03/03/2021 9:54 AM T [facility] Hemoglobin 15.0 12.0 - 16.0 gm/dL 03/03/2021 9:54 AM T [facility] Hematocrit 46.8 36.0 - 47.0 % 03/03/2021 9:54 AM CDT [facility] MCV 91.2 78.0 - 98.0 fl 03/03/2021 9:54 AM CDT [facility] MCH 29.2 25.0 - 35.0 pg 03/03/2021 9:54 AM CDT [facility] MCHC 32.1 31.0 - 37.0 gm/dL 03/03/2021 9:54 AM CDT [facility] Platelet Count 386 100 - 400 x10E9/L 03/03/2021 9:54 AM CDT [facility] RDW-CV 12.5 11.5 - 14.0 % 03/03/2021 9:54 AM CDT [facility] MPV 10.5(H) 6.0 - 9.5 fl 03/03/2021 9:54 AM CDT [facility] nRBC Auto 0 /100 WBC 03/03/2021 9:54 AM T [facility] Blood BLOOD SPECIMEN / Unknown Venipuncture / Unknown 03/03/2021 9:42 AM CDT 03/03/2021 9:45 AM CDT Luigi Gil MD LAB - HEMATOLOGY ORD ERABLES Performing Organization Address City/State/[facility] Co de Phone Number [facility] [place] [phone] * (ABNORMAL) BASIC METABOLIC PANEL (CALCIUM TOTAL) (03/03/2021 9:42 AM CDT) Glucose 681(HH) 70 - 105 mg/dL 03/03/2021 10:15 AM CDT [facility] Sodium 131(L) 136 - 145 mmol/L 03/03/2021 10:15 AM CDT [facility] Potassium 6.8(HH) 3.5 - 5.1 mmol/L 03/03/2021 10:15 AM T [facility] Comment:Very hemolyzed Chloride 94(L) 98 - 107 mmol/L 03/03/2021 10:15 AM CDT [facility] CO2 5(LL) 20 - 28 mmol/L 03/03/2021 10:15 AM T [facility] Calcium 10.58(H) 9.08 - 10.48 mg/dL 03/03/2021 10:15 AM [facility] Anion Gap 32(H) 5 - 20 mmol/L 03/03/2021 10:15 AM [facility] BUN 28.0(H) 5.3 - 18.7 mg/dL 03/03/2021 10:15 AM [facility] Creatinine 0.87 0.61 - 1.07 mg/dL 03/03/2021 10:15 AM [facility] eGFR by MDRD 03/03/2021 10:15 AM [facility] Comment: eGFR calculations are not performed for children under 18 years old. eGFR by MDRD 03/03/2021 10:15 AM [facility] Comment: eGFR calculations are not performed for children under 18 years old. Blood BLOOD SPECIMEN / Unknown Venipuncture / Unknown 03/03/2021 9:42 AM CDT 03/03/2021 9:45 AM CDT Luigi Gil MD LAB - CHEMISTRY MANJULA ZHAO Performing Organization Address City/[facility]/ZIP Co de Phone Number [facility] [place] [address] * (ABNORMAL) GLUCOSE - POINT OF CARE (03/03/2021 9:24 AM CDT) [facility] Glucose WB/POC >500(HH) 70 - 106 mg/dL 03/03/2021 9:28 AM T [facility] Specimen Type Arterial/C apillary 03/03/2021 9:28 AM T [facility] Blood BLOOD SPECIMEN / Unknown 03/03/2021 9:24 AM CDT 03/03/2021 9:28 AM CDT Provider Unknown LAB - POINT OF CARE ORDERABLES Performing Organization Address [facility] Co de Phone Number [facility] [address] [place] [phone] documented in this encounter Visit Diagnoses Diagnosis Diabetic ketoacidosis without coma associated with type 1 diabetes mellitus (HCC) Diabetic ketoacidosis without coma associated with type 1 diabetes mellitus (HCC) * Assessment & Plan Note - Rufino Liriano - 03/04/2021 6:59 AM CDTAssociated Problem(s): Diabetic ketoacidosis without coma associated with type 1 diabetes mellitus (HCC) (Resolved 07/08/2021) Assessment: Anaid Dimas is a 15 year old female with type 1 diabetes mellitus with history ofnon-compliance who presents to the PICU in DKA. [...] milk. Recheck glucose 15 minutes later and ifstill decreased then repeat. - If < 70 and patient is unresponsive or seizing. Give glucagon 1 mg IM PRN. - VS 5x/day before meals, qHS and 0200 with glucose checks per diabetes orders - Daily weights ID: - Monitor for fevers or signs of infection Neuro/Pain: - Tylenol q4h PRN Activity: - PT/OT Social: - Consults to hospice educator, nutrition, social director Labs: Per endocrine team Access: PIV * Assessment & Plan Note - Rufino Liriano - 03/03/2021 11:09 AM CDTAssociated Problem(s): Diabetic ketoacidosis without coma associated with type 1 diabetes mellitus (HCC) (Resolved 07/08/2021) Assessment: Anaid Dimas is a 15 year old female with type 1 diabetes mellitus with history ofnon-compliance who presents to the PICU in DKA. [...] Activity: - PT/OT Social: - Consults to hospice educator, nutrition, social director Labs: Hourly glucoses, BMP/Ph q4h alternating with VBG + lytes q4h, urine qvoid, CK once Access: PIV documented in this encounter Administered Medications Inactive Administered Medications - up to 3 most recent administrations Medication Order MAR Action Action Date Dose Rate Site 0.45 % NaCl infusion at 185 mL/hr, Intravenous, CONTINUOUS, Starting on Thu03/03/21 at 1100, Until Thu03/03/21 at 1146, FIRST BAG Current Rate 03/03/2021 11:47 AM CDT 185 mL/hr $ New Bag/Syringe 03/03/2021 11:01 AM CDT 185 mL/hr 185 m L/hr 0.45 % NaCl infusion 95 mL/hr, Intravenous, CONTINUOUS, Starting on Thu03/04/21 at 0930, Until Thu03/04/21 at 2028 $ New Bag/Syringe 03/04/2021 1:39 PM CDT 95 mL/hr 95 mL/hr $ New Bag/Syringe 03/04/2021 9:32 AM CDT 95 mL/hr 95 mL/ hr 0.9 % nacl IV BOLUS 1,000 mL 1,000 mL, Intravenous, ONCE, 1 dose, On Thu03/03/21 at 1000 $ New Bag/Syringe 03/03/2021 9:44 AM CDT 1,000 mL 0.9% NaCl infusion ADS Med 1 dose, Starting on Thu03/03/21 at 0940, Until Thu03/03/21 at 0944, Created by cabinet override 0.9% NaCl infusion 185 mL/hr, Intravenous, CONTINUOUS, Starting on Thu03/03/21 at 1145, Until Thu03/03/21 at 1412, FIRST BAG $ New Bag/Syringe 03/03/2021 1:09 PM CDT 185 mL/hr 185 mL/hr 0.9% NaCl IV with potassium acetate 20 mEq/L, potassium phosphate 20 mEq/L INFUSION at 1 mL/hr, Intravenous, CONTINUOUS, Starting on Thu03/03/21 at 1400, Until Thu03/04/21 at 0755, DKA ORDERS FLUID #1 Current Rate 03/04/2021 7:35 AM CDT 1 mL/hr Rate Change 03/04/2021 4:57 AM CDT 1 mL/hr $ New Bag/Syringe 03/03/2021 11:22 PM CDT 45 mL /hr acetaminophen (Tylenol) tablet 650 mg 650 mg, Oral, EVERY 4 HOURS PRN, Fever, Mild Pain, Starting on Thu03/03/21 at 1147, Until 03/04/21 at 9 $ Given 03/04/2021 2:25 PM CDT 650 mg $ Given 03/04/2021 10:07 AM CDT 650 mg $ Given 03/04/2021 5:04 AM CDT 650 mg dextrose 10% with NaCl (4mEq/ml) (Conc.Sodium Chloride) 0.45 % INFUSION at 10 mL/hr, Intravenous, CONTINUOUS, Starting on Thu03/03/21 at 1100, Until Thu03/03/21 at 1146, SECOND BAG Current Rate 03/03/2021 11:47 AM CDT 10 mL/hr $ New Bag/Syringe 03/03/2021 11:05 AM CDT 10 mL /hr dextrose 10% with NaCl (4mEq/ml) (Conc.Sodium Chloride) 0.9 % INFUSION at 10 mL/hr, Intravenous, CONTINUOUS, Starting on Thu03/03/21 at 1145, Until Thu03/03/21 at 1412, SECOND BAG $ New Bag/Syringe 03/03/2021 1:07 PM CDT 10 mL/hr dextrose 10% with potassium acetate 20 mEq/L, potassium phosphate 20 mEq/L, NaCl (4mEq/ml) (Conc.Sodium Chloride) 0.9 % INFUSION at 195 mL/hr, Intravenous, CONTINUOUS, Starting on Thu03/03/21 at 1445, Until Thu03/04/21 at 0755, DKA ORDERS FLUID #2- --KEEP AT BEDSIDE--. Initiate and adjust based on physician order Current Rate 03/04/2021 7:35 AM CDT 195 mL/hr $ New Bag/Syringe 03/04/2021 6:00 AM CDT 195 mL /hr Rate Change 03/04/2021 4:56 AM CDT 195 mL/hr famotidine (Pepcid) pediatric IV 20 mg 20 mg, Intravenous, EVERY 12 HOURS, First dose on Thu03/03/21 at 2030, Until Discontinued, Infuse over 2 minutes. Diluted in D5W $ Given 03/03/2021 7:52 PM CDT 20 mg glucagon (Glucagen) injection 1 mg 1 mg, Intramuscular, PRN, hypoglycemia, Starting on Thu03/04/21 at 0707, Until Thu03/04/21 at 2028, ..Administer if patient is unresponsive or convulsing AND blood glucose is less than 80. Notify household coordinator. Reconstitute vial with 1 mL of sterile water for injection for a final concentration of 1 mg/mL; shake vial gently; use immediately and discard unused portion insulin glargine (Lantus) vial 15 Units 15 Units, Subcutaneous, ONCE, 1 dose, On Thu03/04/21 at 0630, Obtain a current Blood Glucose if necessary. . WASTE DISPOSAL INSTRUCTIONS: Black Bin Disposal required. $ Given 03/04/2021 6:53 AM CDT 15 Units Left Arm insulin glargine (Lantus) vial 30 Units 30 Units, Subcutaneous, AT BEDTIME, First dose on Thu03/04/21 at 2030, Until Discontinued, Obtain a current Blood Glucose if necessary. High Risk, High Alert Medication: Must document double check on IV MAR Flowsheet. . WASTE DISPOSAL INSTRUCTIONS: Black Bin Disposal required. insulin lispro (HumaLOG;ADMelog) 100 UNIT/ML pen 0-20 Units 0-20 Units, Subcutaneous, 3 TIMES DAILY BEFORE MEALS, First dose on Thu03/04/21 at 0730, Until Discontinued, 1 units of insulin per 10 grams of carbohydrate in meal High Risk, High Alert Medication: Must document double check on IV MAR Flowsheet. $ Given 03/04/2021 6:30 PM CDT 5 Units Right Leg $ Given 03/04/2021 2:07 PM CDT 4 Units Le ft leg $ Given 03/04/2021 8:17 AM CDT 2 Units Ab d Left Upper Quadrant insulin lispro (HumaLOG;ADMelog) 100 UNIT/ML pen 0-20 Units 0-20 Units, Subcutaneous, 3 TIMES DAILY BEFORE MEALS, First dose on Thu03/04/21 at 0730, Until Discontinued, High Risk, High Alert Medication: Must doucment double check on IV MAR Flowsheet. ....... Correction dose with Humalog/Novolo unit for every 50 above 150: Blood sugar 151-200 - give 1 unit Blood sugar 201-250 - give 2 units Blood sugar 251-300 - give 3 units Blood sugar 301-350 - give 4 units Blood sugar 351-400 - give 5 units Blood sugar >400 give 6 units. $ Given 03/04/2021 6:29 PM CDT 3 Units Righ t Leg $ Given 03/04/2021 2:06 PM CDT 3 Units Le ft leg insulin regular human (MyXRedlin) 100 units in 100 mL premix infusion 0.1 Units/kg/hr ? 54.7 kg (5.47 mL/hr), Intravenous, CONTINUOUS, Starting on Thu03/03/21 at 1030, Until Thu03/04/21 at 0755, Flush 20 ml of infusion through IV tubing before infusing. . WASTE DISPOSAL INSTRUCTIONS: Black Bin Disposal required. Current Rate 03/04/2021 7:34 AM CDT 0.1 Units/kg/hr 5.47 mL/hr $ New Bag/Syringe 03/04/2021 6:00 AM CDT 0.1 Units/kg/hr 5 .47 mL/hr Current Rate 03/03/2021 7:24 PM CDT 0.1 Units/kg/hr 5.47 m L/hr documented in this encounter Active and Recently Administered Medications Times are shown in CDT. Scheduled Medication Order 03/02/2021 03/03/2021 03/04/2021 0.9 % nacl IV BOLUS 1,000 mL (COMPLETED) 1,000 mL, Intravenous, ONCE, 1 dose, On Thu03/03/21 at 1000 0944 ($ New Bag/Syringe - Provider: Latanya Voss, RN)1059 (Stopped - Provider: Latanya Voss, RN) famotidine (Pepcid) pediatric IV 20 mg (CANCELED) 20 mg, Intravenous, EVERY 12 HOURS, First dose on Thu03/03/21 at 2030, Until Discontinued, Infuse over 2 minutes. Diluted in D5W 1952 ($ Given - Provider: Zbigniew Simpson, RN) insulin glargine (Lantus) vial 15 Units (COMPLETED) 15 Units, Subcutaneous, ONCE, 1 dose, On Thu03/04/21 at 0630, Obtain a current Blood Glucose if necessary. . WASTE DISPOSAL INSTRUCTIONS: Black Bin Disposal required. 0653 ($ Given - Prov ider: Zbigniew Simpson RN) insulin glargine (Lantus) vial 30 Units 30 Units, Subcutaneous, AT BEDTIME, First dose on Thu03/04/21 at 2030, Until Discontinued, Obtain a current Blood Glucose if necessary. High Risk, High Alert Medication: Must document double check on IV MAR Flowsheet. . WASTE DISPOSAL INSTRUCTIONS: Black Bin Disposal required. insulin lispro (HumaLOG;ADMelog) 100 UNIT/ML pen 0-20 Units 0-20 Units, Subcutaneous, 3 TIMES DAILY BEFORE MEALS, First dose on Thu03/04/21 at 0730, Until Discontinued, 1 units of insulin per 10 grams of carbohydrate in meal High Risk, High Alert Medication: Must document double check on IV MAR Flowsheet. 0817 ($ Given - Prov ider: Diana Wilhelm RN)1407 ($ Given - Provider: Harjit Cui, RAFA)1830 ($ Given - Provider: Harjit Cui, RAFA) insulin lispro (HumaLOG;ADMelog) 100 UNIT/ML pen 0-20 Units 0-20 Units, Subcutaneous, 3 TIMES DAILY BEFORE MEALS, First dose on Thu03/04/21 at 0730, Until Discontinued, High Risk, High Alert Medication: Must doucment double check on IV MAR Flowsheet. ....... Correction dose with Humalog/Novolo unit for every 50 above 150: Blood sugar 151-200 - give 1 unit Blood sugar 201-250 - give 2 units Blood sugar 251-300 - give 3 units Blood sugar 301-350 - give 4 units Blood sugar 351-400 - give 5 units Blood sugar >400 give 6 units. 0811 (Not Administer ed - Provider: Diana Wilhelm RN - Reason: Per Administration Instructions - Comment: blood glucose 142)1406 ($ Given - Provider: Harjit Cui, RAFA)1829 ($ Given - Provider: Harjit Cui, RN) Continuous Medication Order 03/02/2021 03/03/2021 03/04/2021 0.45 % NaCl infusion (CANCELED) at 185 mL/hr, Intravenous, CONTINUOUS, Starting on 03/03/21 at 1100, Until Thu03/03/21 at 1146, FIRST BAG 1101 ($ New Bag/Syringe - Provider: Latanya Voss RN)1147 (Current Rate - Provider: Lindsey Negrete, RAFA) 0.45 % NaCl infusion 95 mL/hr, Intravenous, CONTINUOUS, Starting on 03/04/21 at 0930, Until Thu03/04/21 at 2028 0932 ($ New Bag/Syri nge - Provider: Diana Wilhelm, RAFA)1339 ($ New Bag/Syringe - Provider: Harjit Cui, RAFA) 0.9% NaCl infusion (CANCELED) 185 mL/hr, Intravenous, CONTINUOUS, Starting on 03/03/21 at 1145, Until 03/03/21 at 1412, FIRST BAG 1309 ($ New Bag/Syringe - Provider: Lindsey Negrete, RAFA) 0.9% NaCl IV with potassium acetate 20 mEq/L, potassium phosphate 20 mEq/L INFUSION (CANCELED) at 1 mL/hr, Intravenous, CONTINUOUS, Starting on 03/03/21 at 1400, Until 03/04/21 at 0755, DKA ORDERS FLUID #1 1412 ($ New Bag/Syringe - Provider: Lindsey Negrete, RAFA)1415 (Rate Change - Provider: Lindsey Negrete RN)1521 (Rate Change - Provider: Lindsey Negrete RN)1923 (Current Rate - Provider: Zbigniew Simpson, RN)224 (Rate Change - Provider: Zbigniew Simpson, RN)2322 ($ New Bag/Syringe - Provider: Zbigniew Simpson RN) 0457 (Rate Change - Provider: Zbigniew Simpson, RN)0735 (Current Rate - Provider: Diana Wilhelm, RN)0800 (Stopped - Provider: Diana Wilhelm, RAFA)0801 (Stopped - Provider: Diana Wilhelm, RN) dextrose 10% with NaCl (4mEq/ml) (Conc.Sodium Chloride) 0.45 % INFUSION (CANCELED) at 10 mL/hr, Intravenous, CONTINUOUS, Starting on 03/03/21 at 1100, Until 03/03/21 at 1146, SECOND BAG 1105 ($ New Bag/Syringe - Provider: Latanya Voss RN)1147 (Current Rate - Provider: Lindsey Negrete RN) dextrose 10% with NaCl (4mEq/ml) (Conc.Sodium Chloride) 0.9 % INFUSION (CANCELED) at 10 mL/hr, Intravenous, CONTINUOUS, Starting on 03/03/21 at 1145, Until 03/03/21 at 1412, SECOND BAG 1307 ($ New Bag/Syringe - Provider: Lindsey Negrete RN) dextrose 10% with potassium acetate 20 mEq/L, potassium phosphate 20 mEq/L, NaCl (4mEq/ml) (Conc.Sodium Chloride) 0.9 % INFUSION (CANCELED) at 195 mL/hr, Intravenous, CONTINUOUS, Starting on 03/03/21 at 1445, Until 03/04/21 at 0755, DKA ORDERS FLUID #2- --KEEP AT BEDSIDE--. Initiate and adjust based on physician order 1415 (Rate Change - Provider: Lindsey Negrete RN)1522 (Rate Change - Provider: Lindsey Negrete RN)192 (Current Rate - Provider: Zbigniew Simpson, RN)2241 (Rate Change - Provider: Zbigniew Simpson, RN)2322 ($ New Bag/Syringe - Provider: Zbigniew Simpson RN) 0456 (Rate Change - Provider: Zbigniew Simpson RN)0600 ($ New Bag/Syringe - Provider: Zbigniew Simpson RN)0735 (Current Rate - Provider: Diana Wilhelm, RAFA)0800 (Stopped - Provider: Diana Wilhelm RN) insulin regular human (MyXRedlin) 100 units in 100 mL premix infusion (CANCELED) 0.1 Units/kg/hr ? 54.7 kg (5.47 mL/hr), Intravenous, CONTINUOUS, Starting on Thu03/03/21 at 1030, Until Thu03/04/21 at 0755, Flush 20 ml of infusion through IV tubing before infusing. . WASTE DISPOSAL INSTRUCTIONS: Black Bin Disposal required. 1003 ($ New Bag/Syringe - Provider: Latanya Voss RN)1147 (Current Rate - Provider: Lindsey Negrete RN)1311 ($ New Bag/Syringe - Provider: Lindsey Negrete RN)1436 ($ New Bag/Syringe - Provider: Madonna Valderrama RN)1924 (Current Rate - Provider: Zbigniew Simpson RN) 0600 ($ New Bag/Syringe - Provider: Zbigniew Simpson RN)0734 (Current Rate - Provider: Diana Wilhelm, RAFA)0800 (Stopped - Provider: Diana Wilhelm RN) PRN Medication Order 03/02/2021 03/03/2021 03/04/2021 acetaminophen (Tylenol) tablet 650 mg 650 mg, Oral, EVERY 4 HOURS PRN, Fever, Mild Pain, Starting on Thu03/03/21 at 1147, Until Thu03/04/21 at 2028 1544 ($ Given - Provider: Lindsey Negrete RN) 0504 ($ Given - Provider: Zbigniew Simpson RN)1007 ($ Given - Provider: Diana Wilhelm, RAFA)1425 ($ Given - Provider: Harjit Cui RN) glucagon (Glucagen) injection 1 mg 1 mg, Intramuscular, PRN, hypoglycemia, Starting on Thu03/04/21 at 0707, Until Thu03/04/21 at 2028, ..Administer if patient is unresponsive or convulsing AND blood glucose is less than 80. Notify household coordinator. 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
--- OUTSIDE RECORDS SUMMARY | 2024-11-22 05:19 | XMS_ITS | Encounter Summary ---
Author Organization [facility] Address [address] [place] [address] Care Team Providers Care Infection Control Practitioner Name Role Phone Alvarez Prabhakar MD Primary Care Provider [phone] Reason for Referral * Radiology Services (Routine) - Closed Specialty Diagnoses / Procedures Referred By Fan medina Referred To Contact Diagnoses Nocturnal enuresis Bladder dysfunction Procedures US KIDNEY AND BLADDER Makenna Rod APRN-CNP [address] [place] [address] Referral ID Status Reason Start Date Expiration Date Visits Re quested Visits Authorized [id number] Closed 11/22/2020 11/22/2021 1 1 [employer] Reason for Visit * Reason Comments Bladder and Bowel Dysfunction Encounter Details Date Type Department Care Team (Latest Contact Info) Description 11/22/2020 2:25 PM [employer] - 11/22/2020 4:17 PM [employer] Hospital Encounter [facility] - Urology [address] [place] [address] Manasa Flores, DO [address] [place] [address] Bel Makenna A, [employer] INST[employer]ER [address] [place] [address] Discharge Disposition: Home or Self Care Social [...] COVID-19? No / Unsure 11/21/2020 1:09 PM [employer] documented as of this encounter Last Filed Vital Signs Vital Sign Reading Time Taken Comments Blood Pressure 112/72 11/22/2020 2:32 PM [employer] Pulse - - Temperature - - Respiratory Rate - - Oxygen Saturation - - Inhaled Oxygen Concentration - - Weight 59.2 kg (130 lb 8.2 oz) 11/22/2020 2:32 P M [employer] Height 159 cm (5' 2.6 ) 11/22/2020 2:32 PM [employer] Body Mass Index 23.42 11/22/2020 2:32 PM [employer] Body Mass Index Percentile 78.27% 11/22/2020 2:3 2 PM [employer] Growth Chart: [facility] (Girls, 2- 20 Years) documented in this encounter Discharge Instructions * Patient Instructions* BelMakenna APRN-CNP - 11/22/2020 3:14 PM [employer] 1. Diflucan for yeast infection - if her symptoms continue she should repeat dose in about 3 days. 2. Start Ditropan (oxybutynin) for her urinary frequency. I am hopeful that this will help with hernight time symptoms as well. 3. Please call me with an update in about 2-4 weeks or sooner with concerns 4. Schedule a kidney bladder ultrasound in the coming weeks to months - you can coordinate this with other appointments 5. I will call with abnormal results 6. Below are additional bowel and bladder recommendations to encourage Voiding: ?? Timed voiding: void every 2 hours by the clock during waking hours. Your child may not feel likethey need to go but they should go in, relax, and try to urinate. ?? Double voiding: After urinating, your child should say the ABC's to themselves and try to void again. In other words, they should take their time and not carpio. ?? Girls should straddle the toilet backwards or sit with their legs spread in a V shape to void.Feet should be on floor, stool, or phone books so she is sitting up straight with feet supported. ?? Girls should wipe with toilet paper from front to back. ?? Wiggle and wick: Your child should take additional toilet paper, hold to their genital area, stand up and do a little dance to wick any urine out of the genital area. This will catch any drops of urine that may be caught in her private area. ?? Crooked, spraying, sideways, or backward streams should be reported. It could be an anatomical problem with voiding. It may also be caused by constipation from pressure on the bladder and/or urethra. So first correct the constipation. Bowels: ?? Many children with urinary issues also have bowel issues. BM's should be soft, shaped like a banana, slide into the toilet water without splashing, and be messy enough to require several wipes to get clean. Ball-shaped, large, bulky, difficult to pass or flush BM's are signs of constipation or an unhealthy bowel habit. Hygiene: ?? Your child should not wear tight underwear or clothing. Increase size with weight gain and growth. ?? Girls should use all cotton panties. Girls who use menstrual pads and tampons should use those that are unscented; pads should be without plastic liners. ?? If wipes are used, they should be without alcohol or scents. Use a different piece of paper to cleanse after having a bowel movement. ?? Use color- and fragrance-free moisturizers and cleansers, without sodium lauryl sulfate if possible. Douches and powders should not be used. ?? Use Dove or Tone bar soap for bathing. Other soaps can be irritating, including: Zest, Ivory, [place], Coast, Dial, Lever 2000. Children should shower and rinse well. They should not sit in soapy water or use other soaps, including liquid soaps ?? To aid in keeping the genitals (privates) clean, use a hand held shower to rinse well if available. ?? Use a hairdryer on a low setting to fan dry after bathing to manage rashes or irritation in the genital area. This is the most often needed in overweight children.. ?? For redness in the private area, apply generic Aquaphor healing ointment 2-3 times per day. If the area does not improve in 24-48 hours, call and discuss with provider. Diet: ?? The following food and drinks may cause problems with a child???s bladder: ?? Caffeine ?? [place]roft fruits and juices ?? Energy drinks ?? Carbonation, including soda ?? Chocolate ?? Gatorade ?? Zyrtec ?? Benadryl ?? Hot, spicy foods ?? Fluid guidelines for children--vary depending on activity and temperature outside. Encourage water intake and decrease salt intake. (1 cup=8 ounces) ?? 4-8 yo girls: 5 cups ?? 9-13 yo girls: 7 cups ?? 14-18 yo girls: 8 cups ?? Children with bedwetting should stop drinking liquids 2 hours before bedtime. ?? Carbonated drinks, artificial colors, citric acid (orange, lemon, grapefruit), vitamin C, sugaryfoods and candy, and milk products in the evening have also been associated with bedwetting. [employer] documented in this encounter Medications at Time [...] Kit 0 08/18/2012 Blood Glucose Monitoring Suppl (GVISP 1 VERIO IQ SYSTEM) w/Device KIT Use 1 [...] unit prime. 15 mL 4 10/30/2020 12/17/2020 fluconazole (DIFLUCAN) 150 MG tablet Take one tablet today, if symptoms continue take second dose in 72 hours. 2 tablet 11/22/2020 12/17/2020 glucagon (GLUCAGON EMERGENCY) injection Inject 1 mg into muscle as needed 2 mg 09/19/2020 03/04/2021 insulin aspart (NOVOLOG FLEXPEN) penIndications:Type 1 diabetes mellitus without complication (HCC) 1 unit per 16 grams of carbohydrate with meals and snacks. 15 mL 5 05/19/2019 03/04/2021 insulin aspart (NOVOLOG PENFILL) cartridgeIndications :Type 1 diabetes mellitus without complication (HCC) [...] as of this encounter Progress Notes * Makenna Rod, [employer] INSTALLER - 11/22/2020 4:15 PM CST Images from the original note were not included. Division of Pediatric Urology [address] [place] [address]. ? Dept Name: Anaid Dimas Date: 11/22/2020 : 2005 Age: [age] year old Pediatric Urology Consultation Visit Assessment & Plan Bladder dysfunction - bladder and bowel dysfunction and nocturnal [...] be scheduled To consider Uroflow with EMG Diflucan today and possible repeated dose in 3 days. - I have reviewed all labs. - I have reviewed previous medical records. - I have spent 40 minutes in consultation with the patient and parents. Greater than 50% of this visit was spent in complex decision making and discussion. Subjective / Objective Chief Complaint Bladder and Bowel Dysfunction History of Present Illness Anaid Dimas is a 15 year old female that was seen today at the [facility] for a New Visit. She was accompanied today by her mother. Patient states that she has always wet the bed. She has more episodes with high blood sugar. She iscurrently wetting the bed almost nightly. She has considered DDAVP but never trialed this. She is aheavy sleeper. Throughout the day, she voids very frequently, she states that it is way more often than other kidsher age. Occasionally, she will have itching and burning in her genital area. Parent states that she suspects that she has a UTI. Bladder and Bowel Dysfunction Potty training: Never nighttime potty trained. Voids per day: 10-12 voids total. Drink preferences: Frequently drinks juice. Voiding: Denies UTIs. Stream caliber is full. Stream direction is straight and downward. Bowel movements: Has non-painful bowel movements daily. Bowel movements are banana-shaped. She is clean with multiple wipes of toilet paper. Previous trials: Other (limiting fluid intake) Incontinence Score Is wet during the day: No How wet during the day: Not wet Is wet during the night: 6-7 nights/week How wet during the night: Soaked sheets Urinating how many times per day: 7 or more times Strains or pushes to urinate: No Complains that it hurts to urinate: Yes Has an intermittent or interrupted stream: No Needs to go back to the bathroom shortly after urinating: Yes Has the urgent need to urinate immediately: No Holds urine, does potty dance, sits/squats down on foot/ankle, or crosses legs: No Wets on the way to the toilet: Yes Has a bowel movement every day: Yes Symptoms affect family, social, or school life: Yes it affects Total score: 17 Sleep Habits Snoring, heavy, or loud breathing? No Overextension of neck during sleep? No Movement arousal / restless sleep? Yes Difficult to wake up? Yes Unaware of awakening (if aroused to void)? No Walks in sleep? No Growing pains? No Restless legs / tingling? No Gasping? No Wakes up with dry mouth or throat / drools / breathes through mouth? Sometimes Drowsiness during the day, naps, or teacher reports sleepiness? Yes Period of snoring, then no sound ( snorting )? No Urinates in the bed? Yes Urinates in unusual places (i.e. tub, trash can, fireplace) and is unaware of doing this? No Falls asleep on short car rides? Yes Hyperactive? Yes Memory problems? Yes Gets in trouble at home and school? No Mood issues? Yes Sweating during sleep? No Choking during sleep? No Talking during sleep? No Nightmares? Sometimes Grinds teeth? No Has difficulty falling asleep? Yes Has difficulty staying asleep? Yes Still tired when awakening versus well-rested? Yes ADD / ADHD? Yes Insomnia greater than 30 minutes? Yes Slow rate of growth? No Morning headache? No BMI: 23.4 Review of Systems Constitutional: (-) fever, (-) appetite change and (-) decreased activity Genitourinary: (+) genital irritation, (+) urinary urgency and Has been having periods since aroundage 10yo. Regular periods (-) history of urinary tract infections and (-) malodorous urine Last menstrual period: 10/21/2020 Psychiatric / Behavioral: (+) hyperactivity Endocrine: (+) polyuria All other systems negative. Physical Exam Height: 159 cm (5' 2.6 ) BP 112/72 Ht 1.59 m (5' 2.6 ) Wt 59.2 kg (130 lb 8.2 oz) BMI 23.42 kg/m2 78 %ile (Z= 0.78) based on CDC (Girls, 2-20 Years) BMI-for-age based on BMI available as of 11/22/2020. Constitutional: Alert, active and well-developed. Head: Normocephalic. Eyes: Conjunctivae normal. Neck: Normal range of motion. Cardiovascular: Regular rhythm. Rate: Normal Pulmonary: Breath sounds normal, normal air entry and effort normal. Abdominal: Soft. Difficult to full palpate due to patient being ticklish Bowel sounds: Normal Musculoskeletal: Normal range of motion. Back: No costovertebral angle tenderness. Genitourinary / Anorectal: Miquel female genitalia: 5 Vagina: Intraoital erythema. Skin: Warm, dry skin and turgor normal. Neurological: Alert and normal gait. Developmental delay: No History No past medical history on file. Past Surgical History: Procedure Laterality Date ??? NEGATIVE SURGICAL HISTORY Family History Problem Relation Name Age of Onset ??? Negative Family History Other DM, thyroid d/o Social History Tobacco Use ??? Smoking status: Never Smoker ??? Smokeless tobacco: Never Used Substance Use Topics ??? Alcohol use: Not on file ??? Drug use: Not on file Allergies Patient has no known allergies. Imaging No final impressions found in past 7 days Labs Recent Results (from the past 72 hour(s)) HEMOGLOBIN A1C - POCT INTERFACED Collection Time: 11/21/20 1:21 PM Result Value Ref Range Hemoglobin A1C POCT 8.6 (H) 3.4 - 6.1 % Estimated Average Glucose 200 mg/dL Medications Prior to Visit Current Medications ACCU-CHEK [...] or when ill. ) BASAGLAR KWIKPEN (BASAGLAR) pen Administer 30 units daily. Allow 2 unit prime. Blood Glucose Monitoring Suppl (ACCU-CHEK DRAKE SMARTVIEW) W/DEVICE KIT kit Use for blood glucose monitoring. Blood Glucose Monitoring Suppl (ONETOUCH VERIO IQ [...] Max daily dose 40 units. insulin glargine (LANTUS) vial Inject 30 Units subcutaneously at bedtime Insulin Lispro (HUMALOG [...] 1 tablet by mouth 3 times daily Encounter Orders Orders Placed This Encounter ??? URINE CULTURE ??? URINE CULTURE ??? US KIDNEY AND BLADDER ??? URINALYSIS W/MICROSCOPIC NO CULTURE ??? URINE CALCIUM CREATININE RATIO RANDOM PANEL [[id number]] ??? URINE CALCIUM CREATININE RATIO RANDOM PANEL [[id number]] ??? URINALYSIS W/MICROSCOPIC NO CULTURE ??? fluconazole (DIFLUCAN) 150 MG tablet ??? oxybutynin (DITROPAN) 5 MG tablet Follow Up Return in about 6 months (around 05/22/2021). ABIDA Cates [employer] * Makenna Rod APRN-CNP - 11/22/2020 2:42 PM CST Chief Complaint Bladder and Bowel Dysfunction History of Present Illness Anaid Dimas is a 15 year old female that was seen today at the [facility] for a New Visit. She was accompanied today by her mother. Patient states that she has always wet the bed. She has more episodes with high blood sugar. She iscurrently wetting the bed almost nightly. She has considered DDAVP but never trialed this. She is aheavy sleeper. Throughout the day, she voids very frequently, she states that it is way more often than other kidsher age. Occasionally, she will have itching and burning in her genital area. Parent states that she suspects that she has a UTI. Bladder and Bowel Dysfunction Potty training: Never nighttime potty trained. Voids per day: 10-12 voids total. Drink preferences: Frequently drinks juice. Voiding: Denies UTIs. Stream caliber is full. Stream direction is straight and downward. Bowel movements: Has non-painful bowel movements daily. Bowel movements are banana-shaped. She is clean with multiple wipes of toilet paper. Previous trials: Other (limiting fluid intake) Incontinence Score Is wet during the day: No How wet during the day: Not wet Is wet during the night: 6-7 nights/week How wet during the night: Soaked sheets Urinating how many times per day: 7 or more times Strains or pushes to urinate: No Complains that it hurts to urinate: Yes Has an intermittent or interrupted stream: No Needs to go back to the bathroom shortly after urinating: Yes Has the urgent need to urinate immediately: No Holds urine, does potty dance, sits/squats down on foot/ankle, or crosses legs: No Wets on the way to the toilet: Yes Has a bowel movement every day: Yes Symptoms affect family, social, or school life: Yes it affects Total score: 17 Sleep Habits Snoring, heavy, or loud breathing? No Overextension of neck during sleep? No Movement arousal / restless sleep? Yes Difficult to wake up? Yes Unaware of awakening (if aroused to void)? No Walks in sleep? No Growing pains? No Restless legs / tingling? No Gasping? No Wakes up with dry mouth or throat / drools / breathes through mouth? Sometimes Drowsiness during the day, naps, or teacher reports sleepiness? Yes Period of snoring, then no sound ( snorting )? No Urinates in the bed? Yes Urinates in unusual places (i.e. tub, trash can, fireplace) and is unaware of doing this? No Falls asleep on short car rides? Yes Hyperactive? Yes Memory problems? Yes Gets in trouble at home and school? No Mood issues? Yes Sweating during sleep? No Choking during sleep? No Talking during sleep? No Nightmares? Sometimes Grinds teeth? No Has difficulty falling asleep? Yes Has difficulty staying asleep? Yes Still tired when awakening versus well-rested? Yes ADD / ADHD? Yes Insomnia greater than 30 minutes? Yes Slow rate of growth? No Morning headache? No BMI: 23.4 Review of Systems Constitutional: (-) fever, (-) appetite change and (-) decreased activity Genitourinary: (+) genital irritation, (+) urinary urgency and Has been having periods since aroundage 10yo. Regular periods (-) history of urinary tract infections and (-) malodorous urine Last menstrual period: 10/21/2020 Psychiatric / Behavioral: (+) hyperactivity Endocrine: (+) polyuria All other systems negative. Physical Exam Height: 159 cm (5' 2.6 ) BP 112/72 Ht 1.59 m (5' 2.6 ) Wt 59.2 kg (130 lb 8.2 oz) BMI 23.42 kg/m2 78 %ile (Z= 0.78) based on CDC (Girls, 2-20 Years) BMI-for-age based on BMI available as of 11/22/2020. Constitutional: Alert, active and well-developed. Head: Normocephalic. Eyes: Conjunctivae normal. Neck: Normal range of motion. Cardiovascular: Regular rhythm. Rate: Normal Pulmonary: Breath sounds normal, normal air entry and effort normal. Abdominal: Soft. Difficult to full palpate due to patient being ticklish Bowel sounds: Normal Musculoskeletal: Normal range of motion. Back: No costovertebral angle tenderness. Genitourinary / Anorectal: Miquel female genitalia: 5 Vagina: Intraoital erythema. Skin: Warm, dry skin and turgor normal. Neurological: Alert and normal gait. Developmental delay: No [employer] documented in this encounter Plan of Treatment Not on file documented as of this encounter Procedures Procedure Name Priority Date/Time Associated Diagnosis Comments URINALYSIS W/MICROSCOPIC NO CULTURE Routine 11/22/2020 3:23 PM [employer] Nocturnal enuresis Bladder dysfunction CULTURE URINE Routine 11/22/2020 3:23 PM [employer] Nocturnal enuresis Bladder dysfunction CALCIUM/CREAT RATIO URINE RANDOM PANEL Routine 11/22/2020 3:23 PM [employer] Nocturnal enuresis Bladder dysfunction documented in this [...] volume of 31 mL. Procedure Note Zhanna Rivera DO - 06/20/2021 INDICATION: Nocturnal anuresis ORDERING [...] on 06/20/2021 at 2:06 PM Makenna Rod [facility] US ORDERABLES * URINE CALCIUM CREATININE RATIO RANDOM PANEL [[id number]] (11/22/2020 3:23 PM [employer]TE[employer]) Calcium Urine 15.93 mg/dL 11/22/2020 8:26 PM [facility] Creatinine Urine 169.06 mg/dL 11/22/2020 8:26 PM [facility] Calcium/Creatin ine Ratio Urine 0.09 11/22/2020 8:26 PM [facility] Urine URINE SPECIMEN OBTAINED BY CLEAN CATCH PROCEDURE / Unknown Collection / Unknown 11/22/2020 3:23 PM [employer] 11/22/2020 8:00 PM [employer]TE[employer] Narrative [facility] - 11/22/2020 8:26 PM [employer]TE[employer]NCE Normal ? <0.16 Borderline ??0.16-0.20 Abnormal ?? >0.20 [facility]akenna [facility] EMISTRY ORDERABLES [facility] [address] [place] [address] * (ABNORMAL) URINALYSIS W/MICROSCOPIC NO CULTURE (11/22/2020 3:23 PM [employer]) Color UA Yellow Straw, Yellow 11/22/2020 10:01 PM [facility] Clarity UA Slt Cloudy(A) Clear 11/22/2020 10:01 PM [facility] Glucose UA 3+(AA) Negative 11/22/2020 10:01 PM [facility] Bilirubin UA Negative Negative 11/22/2020 10:01 PM [facility] Ketone UA Negative Negative 11/22/2020 10:01 PM [facility] Specific [place] UA 1.036(H) 1.005 - 1.030 11/22/2020 10:01 PM [facility] Blood UA 1+(A) Negative 11/22/2020 10:01 PM [facility] pH UA 6.0 5.0 - 8.0 pH 11/22/2020 10:01 PM [facility] Protein UA Negative Negative 11/22/2020 10:01 PM [facility] Urobilinogen UA Negative Negative mg/dL 11/22/2020 10:01 PM [facility] Nitrite UA Negative Negative 11/22/2020 10:01 PM [facility] Leukocyte UA Negative Negative 11/22/2020 10:01 PM [facility] RBC UA 0-2 None Seen, 0-2, 3-5 # /hpf 11/22/2020 10:01 PM [facility] WBC UA 0-5 None Seen, 0-5 # /hpf 11/22/2020 10:01 PM [facility] Bacteria UA Trace(A) None Seen 11/22/2020 10:01 PM [facility] Squamous Epithelial Cells 11-20(A) None Seen, 0-2, 3-5 /hpf 11/22/2020 10:01 PM [facility] Mucus UA 1+ /LPF 11/22/2020 10:01 PM [facility] Hyaline Casts 0-2 None Seen, 0-2 # /lpf 11/22/2020 10:01 PM [facility] Urine URINE SPECIMEN OBTAINED BY CLEAN CATCH PROCEDURE / Unknown Collection / Unknown 11/22/2020 3:23 PM [employer] 11/22/2020 7:59 PM [employer] Narrative [facility] - 11/22/2020 10:01 PM [employer]CE Makenna Rod APRN-MOLDING AND [employer] INSTALLER LAB - URINALYS IS ORDERABLES [facility] [address] [place] [address] * URINE CULTURE (11/22/2020 3:23 PM [employer]) Culture Urine 10,000-50,000 CFU/mL urogenital dana IBAN 11/24/2020 7:45 AM [employer]TE[employer]CE [facility] Urine URINE SPECIMEN OBTAINED BY CLEAN CATCH PROCEDURE / Unknown Collection / Unknown 11/22/2020 3:23 PM [employer] 11/22/2020 8:00 PM [employer]TE[employer] Makenna [facility] - MICROBIO LOGY ORDERABLES [facility] [address] [place] [address], [facility] [phone] documented in this encounter Visit Diagnoses Diagnosis Nocturnal enuresis- Primary Bladder dysfunction Other functional disorder of bladder Nocturnal enuresis Bladder dysfunction Other functional disorder of bladder * Assessment & Plan Note - Makenna Rod APRN-CNP - 11/22/2020 4:08 PM [employer] Associated Problem(s): Bladder dysfunction - bladder and bowel dysfunction and nocturnal enuresis. Anaid has primary nocturnal enuresis. She also has urinary frequency and is unable to successfully hold urine for more than 1-2 hours without discomfort. She has frequent episodes of genital irritation and itching that is likely related to c andidiasis. Exam demonstrates some erythema to her introitus. [...] be scheduled To consider Uroflow with EMG [employer] documented in this encounter Care Teams Infection Control Practitioner Relationship Specialty Start Date End Date Alvarez Prabhakar MD [address] [place] [address] PCP - General 12/12/11 documented as of this encounter
--- OUTSIDE RECORDS SUMMARY | 2024-11-22 05:19 | XMS_ITS | Encounter Summary ---
Author Organization [facility] Address [address] [place] [address] Care Team Providers Care Rough Patcher Name Role Phone Alvarez Prabhakar MD Primary Care Provider [phone] Reason for Visit * Reason Comments Diabetes Encounter Details Date Type Department Care Team (Latest Contact Info) Description 07/09/2021 11:25 AM CDT - 07/09/2021 5:48 PM CDT Hospital Encounter [facility] Pediatrics - Diabetes [address] [address] Breana Olivas MD Jeanne Wahl, DO [address] [place] [phone] Discharge Disposition: Home or Self Care Social [...] Sign Reading Time Taken Comments Blood Pressure 110/58 07/09/2021 11:36 AM CDT Pulse - - Temperature - - Respiratory Rate - - Oxygen Saturation - - Inhaled Oxygen Concentration - - Weight 56.7 kg (125 lb) 07/09/2021 11:36 AM CDT Height 159.2 cm (5' 2.68 ) 07/09/2021 11:36 AM C DT Body Mass Index 22.37 07/09/2021 11:36 AM CDT Body Mass Index Percentile 67.75% 07/09/2021 11: 36 AM CDT Growth Chart: [facility] [...] this encounter Discharge Instructions * Patient Instructions* Jeanne Wahl, - 07/09/2021 12:05 PM CDT Your hemoglobin A1c today was Recent Labs Component Name 07/09/21 1150 HGBA1C 8.8* Goal is less than 7% Your current diabetes care plan is as follows: Lantus 20 units at night Novolog/humalo unit per 10 g carb at meals/snacks [give insulin injections prior to meals/snacks] ?? Mealtime correction: 1 unit Novolog/Humalog for every 40 mg/dL over 150 mg/dL. -Continue to utilize your CGM for blood glucose monitoring. -Continue to take your insulin before all meals and snacks -Continue to check your ketones if blood sugar is >250 or if you are sick with fever, rapid breathing, vomiting or abdominal pain. -Continue to monitor blood sugars and review at least once a week to determine if insulin dose adjustments need to be made due to frequent lows (<70) or frequent blood sugars above your target. Follow up in 3 months for a return diabetes visit. documented in this encounter Medications at Time [...] Kit 0 08/18/2012 Blood Glucose Monitoring Suppl (Lio Social VERIO IQ SYSTEM) w/Device KIT Use 1 [...] 90 days 1 Each 3 07/03/2021 06/09/2023 fluconazole (DIFLUCAN) 100 MG tablet Take 1 (one) tablet by mouth once daily Take 1 tablet every 72 hours for 3 doses 3 tablet 06/20/2021 04/23/2022 Insulin Lispro (HUMALOG KWIKPEN) 100 UNIT/MLIndications:Ty pe [...] as of this encounter Progress Notes * Jeanne Wahl, - 07/09/2021 11:25 AM CDT Images from the original note were not included. Division of Pediatric Endocrinology ??? Dept Pediatric Endocrinology Follow up Clinic Visit Dear Doctor Alvarez Prabhakar MD, I saw Anaid Dimas today for follow up in endocrine clinic. Anaid Dimas is followed in endocrine clinic for type 1 diabetes diagnosed in 2011. Patient Active Problem List Diagnosis Date Noted ??? Bladder dysfunction 11/22/2020 Priority: Not Prioritized ??? Type 1 diabetes mellitus without complication 08/18/2012 Diagnosed 08/17/2012 Interval history: Anaid is a 15 year old 8 month old female with type 1 diabetes. She was seen on 07/09/2021 for follow up accompanied by her mother . Patient and family report diabetes management has been going poorly. Patient reports problems with: Patient reports problems with general non-compliance with diabetes monitoring and insulin dosing. Anaid has been not taking her lantus regularly for the past week. She reports good adherence to taking Novolog with meals but not taking her lantus dose. In addition she has not been checking ketones for hyperglycemic episodes. She reports issues with overnight lows, when on lantus but also when eating late/dosing Novolog late at night. She also scored a 9 on the PHQ2 and has been having depressive feelings lately. This was an issue for her in the past and over 3 years ago she was in therapy but stopped and mom has felt that her depressive symptoms have slowly returned the past year. Mom has resources locally to pursue therapy and prefers to do that before coming to [facility]. Since the last appointment with pediatric endocrinology Anaid has not been admitted to the hospital in DKA. Anaid checks for ketones for blood sugars >250 or when ill and has not had ketones. Anaid Dimas does not handle sick days/ketones appropriately. Anaid has been experiencing frequent low blood sugars. Anaid does have problems with overnight or fasting lows. She has symptoms of hypoglycemia when the blood sugar is 60. Anaid does not have hypoglycemia unawareness. Anaid has glucagon and does not wear a medical alert ID. Current diabetes management: Insulin therapy: Patient currently manages diabetes with multiple daily insulin injections with dexcom CGM Lantus 29 units (has not taken in over a week) Novolog/humalo unit per 10 g carb at meals/snacks [give insulin injections prior to meals/snacks] ?? Mealtime correction: 1 unit Novolog/Humalog for every 40 mg/dL over 150 mg/dL. ?? Anaid Dimas's home target blood glucose range: 70-150 mg/dL ?? Blood sugar monitoring Anaid???s target blood glucose range is 80-150. Patient is currently monitoring blood sugars with a continuous glucose monitor. Patients CGM was downloaded and last 2 weeks of blood sugar data was reviewed. By review of downloaded glucometer/pump/CGM data, Anaid uses CGM to check blood sugar daily using a meter. Interpretation of blood glucose and insulin dosing is in the plan section of this note. PMHx: Patient Active Problem List: Type 1 diabetes mellitus without complication Bladder dysfunction Current Medications: Current Outpatient Medications Medication Sig Dispense Refill [...] or whenill. ) 100 Strip 11 ??? Basaglar KwikPen (BASAGLAR) pen Inject 30 units daily or as directed 15 mL 5 ??? Blood Glucose Monitoring Suppl (ACCU-CHEK DRAKE SMARTVIEW) W/DEVICE KIT kit Use for blood glucose monitoring. 1 Kit 0 ??? Blood Glucose Monitoring Suppl (Lio Social VERIO IQ SYSTEM) w/Device KIT Use 1 kit as directed 2 kit 0 ??? Continuous Blood Gluc Sensor (DEXCOM G6 SENSOR) MISC Use 1 Each every 10 days 3 Each 6 ??? Continuous Blood Gluc Transmit (DEXCOM G6 TRANSMITTER) MISC Use 1 Each Every 90 days 1 Each 3 ??? fluconazole (DIFLUCAN) 100 MG tablet Take 1 (one) tablet by mouth once daily Take 1 tablet every 72 hours for 3 doses 3 tablet 0 ??? glucagon (GLUCAGON EMERGENCY) injection Inject 1 mg into muscle as directed for severe low blood sugar reaction. 2 kit 0 ??? injection device-insulin (NOVOPEN ECHO) device Use for insulin delivery. 1 device 1 ??? Insulin Lispro (HUMALOG KWIKPEN) 100 UNIT/ML 1 unit for every 10 grams of carbohydrate. 4 Pen 5 ??? insulin lispro (HUMALOG;ADMELOG) 100 UNIT/ML pen Inject 0 (zero) Units to 10 (ten) Units subcutaneously 3 times daily before meals 1 unit for every 40 over 150 ??? Insulin Pen Needle (BD PEN NEEDLE [...] USE FOR INJECTION DAILY 100Each 0 ??? Insulin Syringe-Needle U-100 (SAFESNAP INSULIN SYRINGE) 30G X 5/16 0.5 ML MISC Use 1 syringe as directed 50 Each 5 ??? ONETOUCH DELICA LANCETS 33G MISC Use 1 Each as directed 200 Each 4 ??? ONETOUCH VERIO test strip USE TO TEST BLOOD SUGAR 5-9 TIMES DAILY 200 strip 4 ??? oxybutynin CR 24hr (DITROPAN-XL) 10 MG tablet Take 1 (one) tablet by mouth at bedtime 30 [id number] No current facility-administered medications for this encounter. Social History Social History Narrative Anaid lives with mother and grandmother. Goes to father's every other weekend. She is in the 10th grade at [employer] and is achieving average grades, IEP. She has an in-tact diabetes managementplan for school. Anaid has good friends and for extracurricular activity Anaid enjoys social [employer] and art. Anaid Dimas expresses feelings of acceptance regarding living with diabetes. Missed school days this year due to diabetes: 0 Review of Systems: General: negative for fatigue, weight loss or gain HEENT: negative for headaches Skin: negative for dry skin, rashes or lipohypertrophy Gastrointestinal: negative for abdominal pain, diarrhea or constipation Genitourinary: negative for dysuria, polyuria Psychiatric: negative for anxiety or depression Neurologic: negative for numbness or tingling in feet Physical Examination: BP 110/58 Ht 1.592 m (5' 2.68 ) Wt 56.7 kg (125 lb) LMP 02/13/2021 BMI 22.37 kg/m?? Blood pressure reading is in the normal blood pressure range based on the 2017 AAP Clinical Practice Guideline. Physical Examination: GENERAL ASSESSMENT: well appearing, in no acute distress, well hydrated, well nourished SKIN: normal color, no lesions, no acanthosis, no hyperpigmentation, no hirsutism, no lipohypertrophy HEAD: normocephalic, non-syndromic facies EYES: no nystagmus, no exophthalmos, no scleral icterus, no conjunctival injection, EOMI, MOUTH:moist mucus membranes NECK: thyroid is not enlarged, thyroid is symmetric and no nodules are appreciated on exam. CHEST: normal air exchange, respiratory effort normal with no retractions HEART: regular rate and rhythm, no murmurs ABDOMEN: soft, non-distended, no masses, no hepatomegaly, non-tender EXTREMITY: normal and symmetric movement, normal range of motion, no joint swelling NEURO: gross motor exam normal by observation Laboratory Data: Hospital Encounter on 07/09/21 LIPID PROFILE Result Value Ref Range Cholesterol Total 187 (H) <170 mg/dL HDL 73 >40 mg/dL LDL Calculated 102 (H) <100 mg/dL Triglycerides 62 <150 mg/dL MICROALB/CREAT RATIO URINE RANDOM PANEL Result Value Ref Range Albumin Random Urine <5.0 Not Established ug/mL Creatinine Urine 64 Not Established mg/dL Urine Albumin/Creatinine Ratio <8 <30 mg/g Albumin/Creatinine Ratio Urine See Comment <30 mg/g HEMOGLOBIN A1C - POCT INTERFACED Result Value Ref Range Hemoglobin A1C POCT 8.8 (H) 3.4 - 6.1 % Estimated Average Glucose 206 mg/dL Screening labs/Diabetes health maintenance: Recent Labs Component Name 07/09/21 1150 03/03/21 0942 11/21/20 1321 HGBA1C 8.8* 8.9* 8.6* EAG 206 209 200 Recent Labs Component Name 07/09/21 1138 09/19/20 1441 07/11/19 1008 04/12/18 1125 TSH - 1.41 - - TTAIGA - <2 - - MICROALBCREA - - 8 - CHOL 187* 239* - - TRIG 62 211* - - HDL 73 80 - - LDLCALC 102* 117* - - - = values in this interval not displayed. Eye Exam: normal last year Assessment/Plan Anaid Dimas has Type 1 diabetes which is in Sub-optimal control based on data from CGM and hemoglobin A1C level ordered and done in office today. Anaid Dimas's A1C is currently above the treatment target of 7 percent or less. Anaid has been not taking lantus regularly. I encouraged her to start taking lantus, with a decreased dose due to overnight lows. She has had a history of depression and scored a 9 on the PHQ9 today. I discussed this with her and mom and mother feels child has been showing depressive symptoms again in the past year (has h/o depression was in therapy up until 3 years ago). Mom will seek therapycloser to home where child was treated before and will let us know if she would like child to see psychology at [facility]. Mom Does report she has tried to get child to go to therapy in recent past and shehas Refused, however Anaid agreed to go to therapy today. Anaid has done well on her dexcom and is ready to try a t slim pump in the future. Family is in process of completing pump test now Mina am in full support of starting her on a pump. Based on CGM interpretation from the past two weeks the following recommendation/s were made: Based on review of blood sugars over the past two weeks I made changes to the insulin doses as indicated in bold/italics below. Lantus 20 units Novolog/humalo unit per 10 g carb at meals/snacks [give insulin injections prior to meals/snacks] ?? Mealtime correction: 1 unit Novolog/Humalog for every 40 mg/dL over 150 mg/dL. ?? Anaid Dimas's home target blood glucose range: 70-150 mg/dL ?? The following goals were set in clinic today to help improve glycemic control: Review blood sugar logs once a week to determine if insulin dose adjustment is needed Take insulin for all meals and snacks. Remember to check ketones when ill or when sugar is over 250 Call our office in one week to review blood sugars between 8am and 4pm at [phone]. Screening labs: Anaid Dimas is due for screening studies at this time as indicated/ordered below. Orders Placed This Encounter Procedures ??? MICROALB/CREAT RATIO URINE RANDOM PANEL ??? LIPID PROFILE ??? LIPID PROFILE ??? MICROALB/CREAT RATIO URINE RANDOM PANEL Follow-Up: In 3 months for clinic appointment Jeanne Wahl DO Office: [phone] Pager: [phone] CC: Alvarez Prabhakar MD [address] [place] [address] #5 / [facility] [id number] Date: 07/08/2021 5:43 PM documented in this encounter Plan of Treatment Scheduled Orders Name Type Priority Associated Diagnoses Order Schedule HEMOGLOBIN A1C - POCT (IP) BEAKER Point of Care Testing Routine Type 1 diabetes mellitus without complication (HCC) 1 Occurrences starting 07/08/2021 until 07/03/2022 HEMOGLOBIN A1C - POCT INTERFACED POCT No Acknowledgement Routine ONCE for 1 Occurrences starting 07/09/2021 until 07/09/2021 documented as of this encounter Procedures Procedure Name Priority Date/Time Associated Diagnosis Comments MICROALB/CREAT RATIO URINE RANDOM PANEL Routine 07/09/2021 11:43 AM CDT Type 1 diabetes mellitus without complication (HCC) LIPID PROFILE Routine 07/09/2021 11:38 AM CDT Type 1 diabetes mellitus without complication (HCC) documented in this encounter Results * (ABNORMAL) HEMOGLOBIN A1C - POCT INTERFACED (07/09/2021 11:50 AM CDT) Blood BLOOD SPECIMEN / Unknown 07/09/2021 11:50 AM CDT 07/09/2021 11:50 AM CDT Jeanne Wahl DO LAB - POINT OF CARE ORDERABLES [facility] [address] [place] [address] * MICROALB/CREAT RATIO URINE RANDOM PANEL (07/09/2021 11:43 AM CDT) Albumin Random Urine <5.0 Not Established ug/mL [facility] Creat[facility] Urine 64 Not Established mg/dL 07/09/2021 12:[address] [facility] Urine Albumin/Creati nine Ratio <8 <30 mg/g 07/09/2021 12:[address] [facility] Albumin/Creati nine Ratio Urine See Comment <30 mg/g 07/09/2021 12:[address] [facility] Comment:Unable to calculate the Urine Albumin/Creatinine Ratio due to one or more analyte concentration(s) being outside the measuring limits of the instrument. Urine URINE SPECIMEN OBTAINED BY CLEAN CATCH PROCEDURE / Unknown Collection / Unknown 07/09/2021 11:43 AM CDT 07/09/2021 12:09 PM T Jeanne Wahl DO LAB - URINE CHEMISTR Y ORDERABLES [facility] [address] [place] [phone], [facility] [phone] * (ABNORMAL) LIPID PROFILE (07/09/2021 11:38 AM CDT) Cholesterol Total 187(H) <170 mg/dL 07/09/2021 12:[address] [facility] HDL 73 >40 mg/dL 07/09/2021 12:[address] [facility] Comment: ATP III Classification of HDL Cholesterol: ? <40 mg/dL: ??Considered a major risk factor. ? >60 mg/dL: ??Considered a negative risk factor. ? LDL Calculated 102(H) <100 mg/dL 07/09/2021 12:[address] [facility] Comment: ATP III Classification of LDL Cholesterol: ?<100 mg/dL: ??Optimal ? 100 - 129 mg/dL: ??Near Optimal/Above Optimal ? 130 - 159 mg/dL: ??Borderline High ? 160 - 189 mg/dL: ??High ?>190 mg/dL: ??Very High ? Triglycerides 62 <150 mg/dL 07/09/2021 12:46 PM CDT [facility] Comment: ATP III Classification of Triglycerides: ?<150 mg/dL: ??Normal ? 150 - 199 mg/dL: ??Borderline High ? 200 - 400 mg/dL: ??High ?>500 mg/dL: ??Very High Blood BLOOD SPECIMEN / Unknown Venipuncture / Unknown 07/09/2021 11:38 AM CDT 07/09/2021 12:15 PM CDT Jeanne Wahl DO LAB - CHEMISTRY MANJULA ZHAO [facility] [address] [place] [address], [facility] [phone] documented in this encounter Visit Diagnoses Diagnosis Type 1 diabetes mellitus without complication (HCC)- Primary Type I (juvenile type) diabetes mellitus without mention of complication, not stated as uncontrolled documented in this encounter Care Teams Rough Patcher Relationship Specialty Start Date End Date Alvarez Prabhakar MD [address] [place] [id number] PCP - General 12/12/11 documented as of this encounter
--- OUTSIDE RECORDS SUMMARY | 2024-11-22 05:19 | XMS_ITS | Encounter Summary ---
Author Organization [facility] Address [address] [facility] [place] [address] Care Team Providers Care Marine Cargo Surveyor Name Role Phone Alvarez Prabhakar MD Primary Care Provider [phone] Reason for Visit * Reason Onset Date Comments Blood Sugar Problem 09/21/2020 Encounter Details Date Type Department Care Team (Late st Contact Info) Description 09/21/2020 Telephone [facility] Pediatrics - Diabetes Mgmt [address] [place] [address] Kory Lopez APRN-TEACHER VISUALLY IMPAIRED [address] [place] [id number] Blood Sugar Problem Social History Tobacco Use Types Packs/Day Years [...] Telephone Encounter - Jones Mcconnell RN - 09/21/2020 2:50 PM CDT Mom called and left a voicemail that pt's blood sugar is 557 and she's calling to review blood sugars as Getachew had requested. I called her back, got her voicemail, asked her to check patient's urine for ketones and call back via the guidance secretary. documented in this encounter Plan of Treatment Not on file documented as of this encounter Visit Diagnoses Not on filedocumented in this encounter Additional Health Concerns Infection Onset Date Last Indicated Resolved Time COVID-19 Under Investigation 03/03/2021 03/03/2021 03/03/2021 11:11 AM CDT documented as of this encounter Care Teams Marine Cargo Surveyor Relationship Specialty Start Date End Date Alvarez Prabhakar MD [address] [place] [address] PCP - General 12/12/11 documented as of this encounter
--- OUTSIDE RECORDS SUMMARY | 2024-11-22 05:19 | XMS_ITS | Encounter Summary ---
Author Organization [facility] Address [address] [facility] [place] [address] Care Team Providers Care Sheriff'S Officer Name Role Phone Alvarez Prabhakar MD Primary Care Provider [phone] Encounter Details Date Type Department Care Team (Latest Contact Info) Description 11/21/2020 Travel Social History Tobacco Use Types Packs/Day [...] COVID-19? No / Unsure 11/21/2020 1:09 PM DEVELOPMENT MECHANIC documented as of this encounter Plan of Treatment Not on file documented as of this encounter Visit Diagnoses Not on filedocumented in this encounter Care Teams Sheriff'S Officer Relationship Specialty Start Date End Date Alvarez Prabhakar MD [address] [place] [address] PCP - General 12/12/11 documented as of this encounter
--- OUTSIDE RECORDS SUMMARY | 2024-11-22 05:19 | XMS_ITS | Encounter Summary ---
Author Organization [facility] Address [address] [facility] [place] [address] Care Team Providers Care Digital Asset Specialist Name Role Phone Alvarez Prabhakar MD Primary Care Provider [phone] Encounter Details Date Type Department Care Team (Latest Contact Info) Description 04/23/2022 Travel Social History Tobacco Use Types Packs/Day [...] on filedocumented in this encounter Care Teams Digital Asset Specialist Relationship Specialty Start Date End Date Alvarez Prabhakar MD [address] [phone] PCP - General 12/12/11 documented as of this encounter
--- OUTSIDE RECORDS SUMMARY | 2024-11-22 05:19 | XMS_ITS | Encounter Summary ---
Author Organization [facility] Address [address] [facility] [facility] [place] [address] Care Team Providers Care Director Of Physician Practices Name Role Phone Alvarez Prabhakar MD Primary Care Provider [phone] Encounter Details Date Type Department Care Team (Late st Contact Info) Description 07/21/2022 Orders Only [facility] Pediatrics - Endocrinology [address] [place] [address] Breana Olivas MD Type 1 [...] mellitus without complication (HCC) 1 Occurrences starting 07/21/2022 until 07/16/2023 documented as of this encounter Visit Diagnoses Diagnosis Type 1 diabetes mellitus without complication (HCC)- Primary Type I (juvenile type) diabetes mellitus without mention of complication, not stated as uncontrolled documented in this encounter Care Teams Director Of Physician Practices Relationship Specialty Start Date End Date Alvarez Prabhakar MD [address] [place] [phone] PCP - General 12/12/11 documented as of this encounter
--- OUTSIDE RECORDS SUMMARY | 2024-11-22 05:19 | XMS_ITS | Encounter Summary ---
Author Organization [facility] Address [address] [facility] [place] [address] Care Team Providers Care Otolaryngology Teacher Name Role Phone Alvarez Prabhakar MD Primary Care Provider [phone] Reason for Visit * Reason Onset Date Comments Follow-up 03/11/2021 Encounter Details Date Type Department Care Team (Late st Contact Info) Description 03/11/2021 Telephone [facility] Pediatrics - Diabetes Mgmt [address] [place] [phone] Brendan Zafar MD [address] [place] [phone] Follow-up Social History Tobacco Use Types Packs/Day [...] have Coronavirus / COVID-19? No / Unsure 03/11/2021 10:50 AM CDT documented as of this encounter [...] Telephone Encounter - Lizeth Garrett RN - 03/11/2021 11:24 AM CDT Received single case agreement approval for Anaid to return to clinic for 3 visits. AUTH # [id number] 3 VISITS 03/14/2021-06/12/2021 Notified mother and appointment changed from 03/14/21 to Thursday03/12/21. documented in this encounter Plan of Treatment Not on file documented as of this encounter Visit Diagnoses Not on filedocumented in this encounter Care Teams Otolaryngology Teacher Relationship Specialty Start Date End Date Alvarez Prabhakar MD [address] [place] [address] PCP - General 12/12/11 documented as of this encounter
--- OUTSIDE RECORDS SUMMARY | 2024-11-22 05:19 | XMS_ITS | Encounter Summary ---
Author Organization [facility] Address [address] [facility] [place] [address] Care Team Providers Care Director Medicare Sales Name Role Phone Alvarez Prabhakar MD Primary Care Provider [phone] Encounter Details Date Type Department Care Team (Latest Contact Info) Description 10/22/2020 Travel Social History Tobacco Use Types Packs/Day [...] COVID-19? 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
--- OUTSIDE RECORDS SUMMARY | 2024-11-22 05:19 | XMS_ITS | Encounter Summary ---
Author Organization [facility] Address [address] [place] [address] Care Team Providers Care Tandem Mill Sticker Name Role Phone Alvarez Prabhakar MD Primary Care Provider Reason for Visit * Reason Onset Date Comments Update 12/17/2020 Encounter Details Date Type Department Care Team (Late st Contact Info) Description 12/17/2020 Telephone [facility] Pediatrics - Urology [address] [place] [id number] Makenna Staples, KEYBOARD INSTRUMENT TUNER-WASTE MACHINE TENDER [address] [place] [phone] Update Social History Tobacco Use Types Packs/Day [...] No / Unsure 11/21/2020 1:09 PM [facility] documented as of this encounter Miscellaneous Notes * Telephone Encounter - Makenna Staples APRN-CNP - 12/17/2020 3:30 PM [facility] Parent reports that patient had started to improve with her vaginal itching and irritation with thediflucan but symptoms have returned. To complete another course of Diflucan. Parent does report that patient has done well with regards to her urinary frequency and nocturnal enuresis since starting Ditropan - she is voiding about 7 times daily and only wetting the bed one night per week. To continue this treatment and schedule patient for a RBUS with her upcoming diabetes clinic appointment. Parent to call next week with an update on patient s/p diflucan. [facility] documented in this encounter Plan of Treatment Not on file documented as of this encounter Visit Diagnoses Not on filedocumented in this encounter Care Teams Tandem Mill Sticker Relationship Specialty Start Date End Date Alvarez Prabhakar MD [address] [place] [address] PCP - General 12/12/11 documented as of this encounter
--- OUTSIDE RECORDS SUMMARY | 2024-11-22 05:19 | XMS_ITS | Encounter Summary ---
Author Organization [facility] Address [address] [facility] [place] [address] Care Team Providers Care Printing Table Hand Name Role Phone Alvarez Prabhakar MD Primary Care Provider [phone] Reason for Visit * Reason Onset Date Comments MEDICATION REFILL 01/12/2020 Encounter Details Date Type Department Care Team (Late st Contact Info) Description 01/12/2020 Refill [facility] Pediatrics - Diabetes Mgmt [address] [place] [address] Kory Lopez, WENDI-VERTICA ARCHITECT [address] [place] [id number] MEDICATION REFILL Social History Tobacco Use Types [...] encounter Miscellaneous Notes * Telephone Encounter - Linda Torres, RN - 01/12/2020 2:24 PM CST I reached out to mom [phone], she called us to let us know that their insurance is now preferring Humalog insulin instead of Novolog. I have ordered Humalog [facility]ens to [facility] local [facility] anddiscussed the use of Humalog is similar to novolog and needs to be given with the same instructions. Mom verbalized understanding. [facility] documented in this encounter Plan of Treatment Not on file documented as of this encounter Visit Diagnoses Not on filedocumented in this encounter Care Teams Printing Table Hand Relationship Specialty Start Date End Date Alvarez Prabhakar MD [address] [place] [address] PCP - General 12/12/11 documented as of this encounter
--- OUTSIDE RECORDS SUMMARY | 2024-11-22 05:19 | XMS_ITS | Encounter Summary ---
Author Organization [facility] Address [address] [facility] [place] [address] Care Team Providers Care Assistant Teacher Name Role Phone Alvarez Prabhakar MD Primary Care Provider [phone] Reason for Visit * Reason Comments Bladder and Bowel Dysfunction Encounter Details Date Type Department Care Team (Latest Contact Info) Description 06/20/2021 10:38 AM CDT - 06/20/2021 11:59 PM CDT Hospital Encounter [facility] Pediatrics - Urology [address] [place] [id number] Makenna Staples, DYEING MACHINE BACK TENDER-MANAGER MERCHANDISE [address] [place] [id number] Discharge Disposition: Home or Self Care Social [...] - Inhaled Oxygen Concentration - - Weight 56.4 kg (124 lb 5.4 oz) 06/20/20 10:45 AM CDT Height 158 cm (5' 2.21 ) 06/20/2021 10: 45 AM CDT Body Mass Index 22.59 06/20/2021 10:45 AM CDT Body Mass Index Percentile 69.93% 06/20 10:45 AM CDT Growth Chart: [facility] (Girls, 2- 20 Years) documented in [...] this encounter Discharge Instructions * Patient Instructions* Makenna Staples APRN-LILLY - 06/20/2021 11:25 AM CDT Images from the original note were not included. 1. Stop standard Ditropan and start Ditropan XL 2. Call if this change is not helpful - [phone] ext [phone] 3. Attempt to stop medications sometime early Spring and see if there is a continued need - if there is a continued need please follow up sometime next Summer 4. Diflucan to treat current yeast infection - once dose and then a dose every 72 hours for continued symptoms Voiding Problems in Children Problems with voiding (excreting urine), also known as dysfunctional voiding, are very common in children. When serious, they can result in damage to the bladder or kidneys. Types of Voiding Dysfunction Some children have an overactive bladder which may cause a sudden and often uncontrollable need to urinate. In these cases, the bladder tries to empty frequently, often without warning. The child mayrun to the bathroom, have many accidents, or hold him or herself to prevent accidents. The child may also feel the urge to go, but not be able to pass any urine. This condition can also be associatedwith urinary infection, constipation, stress, or the use of caffeine. In most cases, the problem improves with time, but it can be treated with medications if the symptoms are bothersome to the child. Other children have uncoordinated voiding. This often starts as an unstable bladder, with the childhaving learned to hold onto the urine when the bladder contracts. These children do not empty the bladder properly, and can develop infections, more frequent wetting, and rarely, kidney damage. Uncoordinated voiding is almost always associated with chronic constipation and fecal accidents, which must also be addressed in order to treat the bladder successfully. Children with infrequent voiding, or a ???lazy bladder?? , may suffer urinary infections. The family may notice the child voids only two to three times per day (a normal child voids 5-7 times daily).Holding the urine for too long can allow bacteria to get into the bladder and cause infection. Urinating regularly prevents this by flushing out the bladder. Daytime Frequency Syndrome Some children may develop the sudden problem of needing to go the bathroom frequently, even though there is an absence of infection. They are often able to sleep through the night without any problems, or suppress the need to void when they are involved in play or other activities. Bedwetting Bedwetting, or nocturnal enuresis, occurs in as many as 15% of children up to age four, and decreases to about 2% by age 15. Some children make more urine at night than their bladder can hold; othershave an unstable bladder. In almost all children, bedwetting occurrences diminish by puberty. Diagnosing Voiding Problems All children need to be examined by a healthcare provider and sometimes the urine should be checkedfor infection. In addition, the child may be asked to urinate into a machine that measures how fastand how much urine they produce. Children with a history of infection may have an ultrasound of thekidneys and bladder, and possibly other tests such as a nuclear renal scan or VCUG (bladder x-ray).Some children may need further specialized studies to determine bladder capacity and function. These are called urodynamic studies. Your child may also be evaluated for sleep apnea, which is correlated with bedwetting, through a questionnaire, or even a sleep study. Available Treatments If test results are normal and symptoms are mild, observation and behavioral changes may be the best treatment. Children with unstable bladder often benefit from medications that relax the bladder, such as oxybutynin. These can cause side effects such as dry mouth and constipation, but are safe andeffective. Children with uncoordinated voiding can be helped by a program of timed voiding (going regularly every couple of hours) and double voiding (trying to urinate again just after voiding to ensure complete emptying of the bladder). In more severe cases, biofeedback training is effective to help the child learn to relax the bladder outlet during emptying. Daytime frequency syndrome tends to get better on its own after several weeks, but can also be treated with oxybutynin to relax the bladder. Infrequent voiding can also be treated with behavior modification, as well as timed and double voiding. Rarely, a catheter (tube) may have to be used a few times daily to empty the bladder until the child learns normal toileting habits. Nocturnal enuresis will almost always resolve on its own, but effective treatments are available. Abedwetting alarm (available online from sources such as bedwettingsDeliveryCheetah[employer] and Interv[employer]) can cure 70% of children, if used every night until the child is dry for at least 2 weeks. This may take afew months. There are also medications available such as desmopressin, but these are treatments rather than cures, and when the medication is stopped, the relapse rates are high. Whatever treatment is chosen, it is important to observe what works best for each individual child, keeping track of when and why the child does not wet the bed. Punishment does not work as a treatment. Sometimes, a reward system can be very helpful in treating children with bedwetting. This can be based on a calendar with stickers for each dry night, leading to a gift or other prize for a certain number of dry nights. Voiding Behavior Modification For patients with megacystis (large bladder capacity), bedwetting or incontinence, urine pooling inthe genital (private) area, and infrequent or too frequent voiding. Voiding: ?? Timed voiding: void every 2 hours by the clock during waking hours. Your child may not feel likethey need to go but they should go in, relax, and try to urinate. ?? Double voiding: After urinating, your child should wait a little while and try to void again. Options to help with waiting between voids include: saying the ABCs to themselves, blowing out five ???birthday candles?? slowly, or washing their hands and returning to the toilet. This is to help your child take their time, relax, and not carpio while giving their bladder another chance to empty. ?? Girls should straddle the toilet backwards or sit with their legs spread in a V shape to void.Feet should be on floor or stool so she is sitting up straight with [...] and tampons should use those that are unscented. ?? If wipes are used, they should be without alcohol or scents. Use a different piece of paper to cleanse after having a bowel movement. ?? Use color- and fragrance-free moisturizers and cleansers, without sodium lauryl sulfate if possible. Douches and powders should not be used. ?? Use Dove bar soap for bathing. Other soaps can be irritating, including: Zest, Ivory, Liberian Spring, Coast, Dial, Lever 2000. Children should rinse well after bathing. They should not sit in soapy water for extended periods of time. If bubbles or liquid soap is used, ensure that it is ???free andclear?? . ?? To aid in keeping the genitals (privates) clean, use a hand held shower to rinse well if available. ?? If your child is overweight, you may wish to use a hairdryer on a low setting to fan dry after bathing to manage rashes or irritation in the genital area. Only use on cold or fan setting for this. ?? For redness in the private area, apply generic Aquaphor healing ointment 2-3 times per day. If the area does not improve in 24-48 hours, call and discuss with provider. Diet: ?? The following food and drinks may cause problems with a child???s bladder: ?? Larimer fruits and juices ?? Caffeine ?? Tea and coffee ?? Energy drinks ?? Carbonation, including soda ?? Gatorade ?? Zyrtec ?? Benadryl ?? Chocolate ?? Hot, spicy foods ?? Fluid guidelines [...] evening have also been associated with bedwetting. Please call in one month with an update or as needed with concerns at [phone] ext. [phone]. Our fax number is . Bowel Management Protocol Many children with urinary tract problems also have the added problem of constipation or infrequentbowel movements (BM???s). The following recommendations have been developed as a first step in eliminating the risk factor for developing urinary tract problems. Lack of success with this protocol may warrant further evaluation. Dietary recommendations as follows Foods to be encouraged; your child should pick at least 3 from these groups: ?? Whole grain bread: The first ingredient on the package should be ???whole- wheat flour?? and not???wheat flour?? or ???enriched bleached/unbleached flour?? . ?? Hot cereal (especially oatmeal) ?? Cereal: Kashi, All-Bran, Raisin Bran, Total, Wheaties, Cheerios, Mini Wheats ?? Fiber Plus granola bars or other high fiber granola bar; Fiber One bars ?? Popcorn for children over 3 years old ?? Fresh fruits, especially apples and pears (not bananas) ?? Salads and any fresh vegetables- uncooked is preferred over cooked ?? Dried fruits: Raisins, prunes, apricots, craisins by [place] ?? Benefiber can be added to foods or liquids and can be used in cooking to add fiber ?? Increase fluids ?? Fluid guidelines for children (1 cup=8 ounces) ?? 4-8 yo: 5 cups ?? 9-13 yo: 7 cups ?? 14-18 yo: 8 cups Limited quantities of dairy: 2-3 servings (8 oz/serving) per day. Dairy includes milk, cheese, yogurt, ice cream, cottage cheese, and custard. Too much dairy can cause hard BMs. The following may cause hardened or infrequent BMs: ?? Cheese; slices, grilled, string, etc. ?? Apple juice or apple juice concentrate ?? Applesauce ?? Bananas ?? Tea Nocturnal Enuresis ??? The definition of nocturnal enuresis is wetting while asleep in children age 5 and older. ??? About 20% of children age 5 or younger continue to wet the bed. This number drops to 10% for children around 7 years and then between 1-3% for children throughout the teenage years. ??? Laziness or willfulness is almost never a reason for continued bed wetting ??? Primary vs Secondary - primary means that the child has never had consistent dry nights and secondary means that the child has had a period of 6 months or more of consistent dry nights before starting to wet again ??? Causes: o Bladder - Less space in the bladder o Kidney - More urine is made at night than should be o Brain - Unable to wake up during sleep to void ??? Risk Factors: o Family History of bed wetting o Constipation o Sleep disorders o Being a Deep Sleeper o Various other medical conditions including anxiety or a history of stressful life experiences ??? Treatments: o Avoid punishment o Watchful waiting- often this resolves without treatment o Limit liquids 1-2 hours before bed, limit screen time in the hours before bed, encourage good bathroom habits during the day. o Bed Wetting Alarm - Wet Stop brand or others at [employer] Bed[employer]etting Store - Use consistently each night and continue to use 2 weeks after your child is dry. This may take several months, but works best long-term. o Medications Date: 06/20/2021 Dear Teacher / School Nurse, Anaid Dimas is followed by ABIDA Cates of [facility]. To help us in the management of her healthcare needs, we request the following: - Allow/encourage bathroom breaks every 2 hours and as needed. - Allow a water bottle to be at the desk to drink during school hours. - Most of the children that we see are already embarrassed by their elimination problems so any innovative idea to any or all of these recommendations less conspicuous would be appreciated. Thank you for your cooperation. Any questions or concerns, please contact our office at [phone]. Sincerely, ABIDA Cates o documented in this encounter Medications at Time [...] Kit 0 08/18/2012 Blood Glucose Monitoring Suppl ([employer] VERIO IQ SYSTEM) w/Device KIT Use 1 [...] as directed 15 mL 5 06/17/2021 10/24/2022 fluconazole (DIFLUCAN) 100 MG tablet Take 1 [...] of this encounter Progress Notes * Makenna Staples, WENDI-MANAGER MERCHANDISE - 06/20/2021 11:09 AM CDT Images from the original note were not included. Department of Pediatric Urology [address] [place] [address]. ? Dept Name: Anaid Dimas Date: 06/20/2021 : 2005 Age: [age] year old Pediatric Urology Visit Subjective / Objective Assessment & Plan Bladder dysfunction A&P - bladder and bowel dysfunction and nocturnal enuresis. Anaid has improved since her last officevisit. She does however, find that her symptoms [...] to Ditropan XL and course of diflucan - I have reviewed the imaging reports. - I have reviewed imaging myself. - I have reviewed all labs. Encounter Orders Orders Placed This Encounter ??? oxybutynin CR 24hr (DITROPAN-XL) 10 MG tablet ??? fluconazole (DIFLUCAN) 100 MG tablet Follow Up Return in 1 year (on 06/20/2022). Chief Complaint Bladder and Bowel Dysfunction History of Present Illness Anaid Dimas is a 15 year old female that was seen today at the [facility] for a Follow Up Visit. She was accompanied today by her mother and sibling(s). Since her last visit she has done fairly well. Patient states that she did well on the medication but it was difficult to remember. She states that she has not taken the Ditropan recently and is having a bit more frequency. Patient states that she will only have bed wetting with elevated blood sugar. Bladder and Bowel Dysfunction Potty training: Never nighttime potty trained. Voids per day: 7-10 voids total. Voiding: Denies UTIs (yeast infection). Stream caliber is full (full: always) . Bowel movements: Has non-painful bowel movements every other day. Bowel movements are banana-shaped. She is clean with multiple wipes of toilet paper. Previous trials: Ditropan (improved symptoms but was difficult to take 3 times daily ) Incontinence Score Is wet during the day: No How wet during the day: Not wet Is wet during the night: 1-2 nights/week How wet during the night: Soaked sheets Urinating how many times per day: 7 or more times Strains or pushes to urinate: No Complains that it hurts to urinate: No Has an intermittent or interrupted stream: No Needs to go back to the bathroom shortly after urinating: Yes Has the urgent need to urinate immediately: Yes Holds urine, does potty dance, sits/squats down on foot/ankle, or crosses legs: No Wets on the way to the toilet: Yes Has a bowel movement every day: No Symptoms affect family, social, or school life: Seriously affects Total score: 15 History Past Medical History: Diagnosis Date ??? NEGATIVE [...] 0.0 standard drinks ??? Drug use: Never Review of Systems Constitutional: (-) fever, (-) appetite change and (-) decreased activity Gastrointestinal: (-) constipation Genitourinary: (+) genital irritation (itching), (+) urinary frequency and (+) urinary urgency (-) posturing Endocrine: Diabetic Physical Exam Height: 158 cm (5' 2.21 ) Ht 1.58 m (5' 2.21 ) Wt 56.4 kg (124 lb 5.4 oz) BMI 22.59 kg/m2 70 %ile (Z= 0.52) based on CDC (Girls, 2-20 Years) BMI-for-age based on BMI available as of 06/20/2021. Constitutional: Alert, active and well-developed. Head: Normocephalic. Eyes: Conjunctivae normal. Neck: No neck mass. Cardiovascular: Regular rhythm. Rate: Normal Pulmonary: Breath sounds normal, normal air entry and effort normal. Abdominal: Soft. No palpable stool. Bowel sounds: Normal Musculoskeletal: Normal range of motion. Back: No costovertebral angle tenderness. Genitourinary / Anorectal: Skin: Warm, dry skin and turgor normal. Neurological: Alert and normal gait. Developmental delay: No Allergies Patient has no known allergies. Imaging No final impressions found in past 7 days Labs No results found for this or any previous visit (from the past 72 hour(s)). Medications Prior to Visit Current Medications ACCU-CHEK [...] greater than 250 or when ill. ) Basaglar KwikPen (BASAGLAR) pen Inject 30 units daily or as directed Blood Glucose Monitoring Suppl (ACCU-CHEK DRAKE SMARTVIEW) W/DEVICE KIT kit Use for blood glucose monitoring. Blood Glucose Monitoring Suppl ([employer] VERIO IQ SYSTEM) w/Device KIT Use 1 kit as directed glucagon (GLUCAGON EMERGENCY) injection Inject 1 mg into muscle as directed for severe low blood sugar reaction. injection device-insulin (NOVOPEN ECHO) device Use for insulin delivery. Insulin Lispro (HUMALOG KWIKPEN) 100 UNIT/ML 1 unit for every 10 grams of carbohydrate. insulin lispro (HUMALOG;ADMELOG) 100 UNIT/ML pen Inject [...] by mouth 3 times daily ABIDA Cates Coding Rationale New or est? Established Patient Total time spent on date of encounter: 30 minutes Highest problem complexity: 1 acute, uncomplicated illness or injury Data review: Review of result(s): 1 unique source(s) (RBUS) Today's visit conducted with the assistance of an independent historian. Highest level of risk: Moderate Suggested code: 79177 documented in this encounter Plan of Treatment Not on file documented as of this encounter Visit Diagnoses Diagnosis Bladder dysfunction- Primary Other functional disorder of bladder * Assessment & Plan Note - Makenna Staples APRN-CNP - 06/20/2021 11:59 PM CDT Associated Problem(s): Bladder dysfunction A&P - bladder and bowel dysfunction and nocturnal enuresis. Anaid has improved since her last officevisit. She does however, find that her symptoms [...] to Ditropan XL and course of diflucan documented in this encounter Care Teams Assistant Teacher Relationship Specialty Start Date End Date Alvarez Prabhakar MD [address] [place] [id number] PCP - General 12/12/11 documented as of this encounter
--- OUTSIDE RECORDS SUMMARY | 2024-11-22 05:19 | XMS_ITS | Encounter Summary ---
Author Organization [facility] Address [address] [place] [address] Care Team Providers Care Mobile Development Manager Name Role Phone Alvarez Prabhakar MD Primary Care Provider [phone] Reason for Visit * Reason Onset Date Comments Refill Request 03/11/2021 Encounter Details Date Type Department Care Team (Late st Contact Info) Description 03/11/2021 Refill [facility] Pediatrics - Diabetes [address] [address] Brendan Zafar MD [address] [place] [phone] Refill Request Social History Tobacco Use Types [...] on filedocumented in this encounter Care Teams Mobile Development Manager Relationship Specialty Start Date End Date Alvarez Prabhakar MD [address] [place] [address] PCP - General 12/12/11 documented as of this encounter
--- OUTSIDE RECORDS SUMMARY | 2024-11-22 05:19 | XMS_ITS | Encounter Summary ---
Author Organization [facility] Address [address] [place] [address] Care Team Providers Care Concrete Stone Fabricator Name Role Phone Alvarez Prabhakar MD Primary Care Provider [phone] Reason for Visit * Reason Comments Diabetes Encounter Details Date Type Department Care Team (Latest Contact Info) Description 04/15/2022 10:48 AM CDT - 04/15/2022 11:59 PM CDT Hospital Encounter [facility] - Diabetes [address] [address] Breana Olivas MD Discharge Disposition: Home or [...] In the last 10 days, have terrell winkler been in contact with someone who was confirmed or suspected to have Coronavirus/COVID-19? No / Unsure 04/15/2022 10:46 AM CDT documented as of this encounter Last Filed Vital Signs Vital Sign Reading Time Taken Comments Blood Pressure 118/74 04/15/2022 10:59 AM CDT Pulse - - Temperature - - Respiratory Rate - - Oxygen Saturation - - Inhaled Oxygen Concentration - - Weight 55.2 kg (121 lb 11.1 oz) 022 10:59 AM CDT Height 159.6 cm (5' 2.84 ) 04/15/2022 1 0:59 AM CDT Body Mass Index 21.67 04/15/2022 10:59 AM CDT Body Mass Index Percentile 57.11% 04/15 10:59 AM CDT Growth Chart: [facility] (Girls, 2- 20 Years) documented in this [...] * Patient Instructions* Breana Olivas MD - 04/15/2022 12:06 PM CDT Avoid shots on the front of your left leg due to puffiness. Important to go back on your Dexcom, especially so you can safely take your Lantus dose nightly. You can set it to vibrate in settings (it will alarm after 5 minutes for BS <55). Call our nurses with questions. Check ketones for BS values >300 twice in a row or when sick or nauseous. Schedule an eye exam. documented in this encounter Medications at Time [...] Kit 0 08/18/2012 Blood Glucose Monitoring Suppl ([employer] VERIO IQ SYSTEM) w/Device KIT Use 1 [...] for 3 doses 3 tablet 06/20/2021 04/23/2022 Glucagon (BAQSIMI TWO PACK) 3 MG/DOSE POWD [place] 1 Each into the nose as directed [...] Progress Notes * Breana Olivas MD - 04/15/2022 12:31 PM CDT Images from the original note were not included. Anaid Dimas and her mother were seen in our Pediatric Endocrinology offices on . She is a 16 year old 6 month old girl who is followed for type 1 diabetes diagnosed in 08/04. Interval History: Healthy, other than a cold over [place], since last seen last June by Dr. Storey. Vaccinated for COVID. Some fairly severe hypoglycemia at 1 AM after not eating enough dinner at 9:30 to cover the 12 Units given. Does not check urine for ketones. Vaccinations: Covid Vaccination: Yes Annual influenza vaccination: No Diabetes Therapies: Lantus 20 Units at 10 PM; takes about half the time. Humalog at set, guesstimated doses: 8 Units for OJ, 10 Units for lunch, 9 Units for afternoon snack, and 12 Units for dinner. She is unclear about her correction other than taking 6 Units for BS >400. Total daily insulin dose ~60 Units. Injections given in the left leg by Anaid. Current Prescriptions: Current Outpatient Medications: [...] Does not apply, q 90 days ??? fluconazole (DIFLUCAN) 100 MG tablet, 100 mg, Oral, QDAY ??? Glucagon (BAQSIMI TWO PACK) 3 MG/DOSE [...] the child has meal amounts that are unmeasured. Anaid Dimas last saw our salesperson pianos and organs in 03/13. Sports/Physical Exercise: Walking Blood Glucose Monitoring: Anaid Dimas's glucose monitoring is done 0-5 x daily with a One Touch Verio meter. Her reported target range is 80-150. Meter download was reviewed: Breakfast Lunch Dinner Bedtime Overnight Other Range [phone] Mean [phone] 271 Comments Few checks Few checks Hypoglycemia: Frequency/Treatment: ~4 times per week. Anaid recognizes her hypoglycemia when herblood sugar is <69, characterized by shaking and hunger. Mother requested a prescription for an updated glucagon. emergency kit. Urine Ketone Monitoring: None. Review of Systems: General: good energy and appetite Skin: recurrent vaginal Candidiasis, not currently Eyes: normal vision; last dilated eye exam in Nov 2020 ENT: brushes teeth, sees dentist Respiratory: negative GI: normal BM daily : nocturia x 2 Neurologic: no h/o seizure(s) Psychiatric: MSQ-9 depression score 19 Endocrine: regular menses All other systems reviewed and were negative. Past Medical History: I have reviewed the patient's medical, surgical, social and family history and the updates are: Finishing marko year at [employer].; passing grades. Days of school missedrelated to diabetes: 0 Physical Examination: BP 118/74 Ht 1.596 m (5' 2.84 ) Wt 55.2 kg (121 lb 11.1 oz) LMP 02/13/2021 BMI 21.67 kg/m?? 48 %ile (Z= -0.05) based on CDC (Girls, 2-20 Years) fnhrjl-wkb-gpt data using vitals from 04/15/2022. 30 %ile (Z= -0.53) based on CDC (Girls, 2-20 Years) Ibplmxk-xvt-pax data based on Stature recordedon 04/15/2022. Body mass index is 21.67 kg/m??. 57 %ile (Z= 0.18) based on CDC (Girls, 2-20 Years) BMI-for-age based on BMI available as of 04/15/2022. General: Well-appearing, WDWN, quiet teen. Skin/Hair/Nails: Warm and dry. Insulin lipohypertrophy on the left anterior thigh. Facial acne.. Eyes: Sclerae clear, PERRLA, EOMs intact; no abnormal fundoscopic findings. Dentition: Good oral hygiene. 28 permanent teeth. Neck: Supple. Thyroid generous in size. Chest: Symmetric. Lungs clear to auscultation, unlabored breathing. CV system unremarkable with regular heart rate and rhythm, normal S1/S2, no murmurs, rubs, or gallops. Abdomen: Soft, non-tender, without organ enlargement or masses. Pubertal maturation: Not examined. Extremities: Large bifid ganglion cyst on the left hand. No cyanosis or edema. Neurologic system: Non-focal. DTRs 2+ and equal. Normal sensation for light touch and vibration. ID Tag Status: None Laboratory Data: Hospital Encounter on 04/15/22 HEMOGLOBIN A1C - POCT INTERFACED Result Value Ref Range Hemoglobin A1C POCT 7.6 (H) 3.4 - 6.1 % Estimated Average Glucose 171 mg/dL HEMOGLOBIN A1C - POCT INTERFACED Result Value Ref Range Hemoglobin A1C POCT 8.0 (H) 3.4 - 6.1 % Estimated Average Glucose 183 mg/dL Assessment: Type 1 diabetes of 9-1/2 years' duration under poor control; HbA1C is lower than expected (~10%) due to frequent nocturnal hypoglycemia No known diabetes complications or autoimmune/metabolic co-morbidities MSQ-9 score of 19 today, suggestive of moderately sever depression consistent with Discord apparent between Anaid and her mother Incidental ganglion cyst of the left hand Management Plan: Defer dose adjustment until we can review Dexcom patterns. Mother to give her Lantus dose nightly; the bedtime BS needs to be at least 100-120. Rotate injection sites, avoiding the left anterior thigh. Encouraged her to resume Dexcom sensor use; she can put it on vibrate so alarms are not going off in public. Reviewed the importance of checking ketones with persistent hyperglycemia, nausea, and illness. Consultation done with Lisbet Leon, our team psychologist. Needs an updated eye exam. Follow up the ganglion cyst with Dr. Prabhakar. Return visit in 3 months with a Nutrition consultation. Coding Rationale New or est? Established Patient Total time spent on date of encounter: 45 minutes Data review: Ordering of test(s): 1 unique test(s) ordered Suggested code: [id number] Breana Olivas MD [phone] CC: Alvarez Prabhakar MD [address] [facility] [id number] Date: 04/15/2022 12:31 PM documented in this encounter Plan of Treatment Not on file documented as of this encounter Procedures Procedure Name Priority Date/Time Associated Diagnosis Comments HEMOGLOBIN A1C - POCT INTERFACED Routine 04/15/2022 11:30 AM CDT HEMOGLOBIN A1C - POCT INTERFACED Routine 04/15/2022 11:03 AM CDT documented in this encounter Results * (ABNORMAL) HEMOGLOBIN A1C - POCT INTERFACED (04/15/2022 11:30 AM CDT) Hemoglobin A1C POCT 8.0(H) 3.4 - 6.1 % 04/15/2022 11:34 AM CDT [facility] Estimated Average Glucose 183 mg/dL 04/15/2022 11:34 AM CDT [facility] Blood BLOOD SPECIMEN / Unknown 04/15/2022 11:30 AM CDT 04/15/2022 11:34 AM CDT Breana Olivas MD LAB - POINT OF CARE ORDERABLES Performing Organization Address [facility] Co de Phone Number [facility] [address] [place] [address] * (ABNORMAL) HEMOGLOBIN A1C - POCT INTERFACED (04/15/2022 11:03 AM CDT) [facility] Hemoglobin A1C POCT 7.6(H) 3.4 - 6.1 % 04/15/2022 11:09 AM CDT [facility] Estimated Average Glucose 171 mg/dL 04/15/2022 11:09 AM CDT [facility] Blood BLOOD SPECIMEN / Unknown 04/15/2022 11:03 AM CDT 04/15/2022 11:09 AM CDT Breana Olivas MD LAB - POINT OF CARE ORDERABLES Performing Organization Address [facility] [[email or web address]] de Phone Number [facility] [address] [place] [phone] documented in this encounter Visit Diagnoses Diagnosis Type 1 diabetes mellitus without complication (HCC) Type I (juvenile type) diabetes mellitus without mention of complication, not stated as uncontrolled documented in this encounter Care Teams Concrete Stone Fabricator Relationship Specialty Start Date End Date Alvarez Prabhakar MD [address] [place] [address] PCP - General 12/12/11 documented as of this encounter
--- OUTSIDE RECORDS SUMMARY | 2024-11-22 05:19 | XMS_ITS | Encounter Summary ---
Author Organization [facility] Address [address] [facility] [place] [address] Care Team Providers Care Leaf Conditioner Name Role Phone Alvarez Prabhakar MD Primary Care Provider [phone] Reason for Visit * Reason Comments Evaluation cyst on left wrist Encounter Details Date Type Department Care Team (Latest Contact Info) Description 04/23/2022 8:22 AM CDT - 04/23/2022 8:36 AM CDT Hospital Encounter [facility] - Orthopedics [address] [place] [id number] Fina Lynn MD [address] [place] [phone] Discharge Disposition: Home or Self Care Social [...] - Inhaled Oxygen Concentration - - Weight 56.5 kg (124 lb 9 oz) 04/23/2022 8:29 AM CDT Height 160.5 cm (5' 3.19 ) 04/23/2022 8:29 AM CD T Body Mass Index 21.93 04/23/2022 8:29 AM CDT Body Mass Index Percentile 59.94% 04/23/2022 8:2 9 AM CDT Growth Chart: [facility] [...] this encounter Discharge Instructions * Patient Instructions* Dora Bobo MD - 04/23/2022 8:59 AM CDT Surgery/Procedure recommended: No Splinting/Casting: No Medications prescribed: Over the counter medication may be used per instructions. Physicians orders: Imaging studies - none. Physical therapy - No Labs - none. Consult - none. Activity Restrictions/Excuses: Gym/Sports - May participate without restrictions School- Excused from School on 04/23/2022 Education: follow up in 1 year To make an appointment, please call [phone]. To contact the Pediatric Orthopaedic office, Please call [phone] After visit summary completed by Dora Bobo MD. documented in this encounter Medications at Time [...] Kit 0 08/18/2012 Blood Glucose Monitoring Suppl ([employer] VERIO IQ SYSTEM) w/Device KIT Use 1 [...] Glucagon (BAQSIMI TWO PACK) 3 MG/DOSE POWD [place] 1 Each into the nose as directed [...] as of this encounter Progress Notes * Fina Lynn MD - 04/23/2022 8:36 AM CDT PEDIATRIC ORTHOPAEDIC CLINIC NOTE NAME: Anaid Dimas DATE OF SERVICE: 04/23/2022 DATE: 2005 PCP: Alvarez Prabhakar MD HISTORY: Anaid Dimas is a 16 year old 6 month old female, RHD, who presents with a lump over the dorsum of her left wrist. She presents today for further evaluation. The patient states she has had the lump on her wrist for over a year and it has increased in size since then. She denies any limited range of motion of her wrist or any difficulties with activities. The patient rates her pain as a 0 out of 10. The patient denies new onset of numbness in her upper extremities. PAST MEDICAL HISTORY: Past Medical History: Diagnosis Date ??? Diabetic ketoacidosis without coma associated with type 1 diabetes mellitus 03/03/2021 ??? NEGATIVE PAST MEDICAL HISTORY - SEE PROBLEM LIST PAST SURGICAL HISTORY: Past Surgical History: Procedure Laterality Date ??? NEGATIVE SURGICAL HISTORY MEDICATIONS: Current Outpatient Medications: ??? ACCU-CHEK FASTCLIX LANCETS, Use for blood glucose monitoring 4-6 times/day., Disp: 200 Each, Rfl: 11 ??? ACCU-CHEK SMARTVIEW test strip, USE TO TEST BLOOD SUGAR 4 TO 6 TIMES DAILY, Disp: 200 strip, Rfl: 11 ??? acetone,urine, (KETOSTIX) strip, Use as needed (use when blood sugar is greater than 250 or when ill. ), Disp: 100 strip, Rfl: 11 ??? acetone,urine, (KETOSTIX) strip, Use as directed for urine ketone checks if blood sugar above 250 or if ill. Dispense one bottle for school and one for home., Disp: 100 strip, Rfl: 3 ??? Basaglar KwikPen (BASAGLAR) pen, Inject 30 units daily or as directed, Disp: 15 mL, Rfl: 5 ??? Blood Glucose Monitoring Suppl (ACCU-CHEK DRAKE SMARTVIEW) W/DEVICE KIT kit, Use for blood glucose monitoring., Disp: 1 Kit, Rfl: 0 ??? Blood Glucose Monitoring Suppl ([employer] VERIO IQ SYSTEM) w/Device KIT, Use 1 kit as directed, Disp: 2 kit, Rfl: 0 ??? Continuous Blood Gluc Sensor (DEXCOM G6 SENSOR) MISC, Use 1 Each every 10 days, Disp: 3 Each, Rfl: 6 ??? Continuous Blood Gluc Transmit (DEXCOM G6 TRANSMITTER) MISC, Use 1 Each Every 90 days, Disp: 1 Each, Rfl: 3 ??? Glucagon (BAQSIMI TWO PACK) 3 MG/DOSE POWD, [place] 1 Each into the nose as directed Administer 3mg intranasally for severe low blood sugar, Disp: 1 Each, Rfl: 0 ??? glucagon (GLUCAGON EMERGENCY) injection, Inject 1 mg into muscle as directed for severe low blood sugar reaction., Disp: 2 kit, Rfl: 0 ??? injection device-insulin (NOVOPEN ECHO) device, Use for insulin delivery., Disp: 1 device, Rfl:1 ??? insulin lispro (HUMALOG;ADMELOG) 100 UNIT/ML pen, USE DIRECTED 1 UNIT FOR EVERY 10 CARBOHYDRATES WITH A MAX OF 50 UNITS PER DAY, Disp: 15 mL, Rfl: 3 ??? insulin lispro (HUMALOG;ADMELOG) 100 UNIT/ML pen, Inject 0 (zero) Units to 10 (ten) Units subcutaneously 3 times daily before meals 1 unit for every 40 over 150, Disp: , Rfl: ??? Insulin Pen Needle (BD PEN NEEDLE DRAKE U/F) 32G X 4 MM MISC, Use 4-6 Each once daily, Disp: 200Each, Rfl: 11 ??? Insulin Pen Needle (BD PEN NEEDLE DRAKE U/F) 32G X 4 MM MISC, Use 4-6 Each as directed Use for injections 4-6 times daily., Disp: 200 Each, Rfl: 11 ??? insulin syringe-needle (BD ULTRAFINE II) 31G X 5/16 0.3 ML syringe, USE FOR INJECTION DAILY, Disp: 100 Each, Rfl: 0 ??? Insulin Syringe-Needle U-100 (SAFESNAP INSULIN SYRINGE) 30G X 5/16 0.5 ML MISC, Use 1 syringe as directed, Disp: 50 Each, Rfl: 5 ??? OneTouch Delica Lancets 33G MISC, Use 1 Each as directed To test blood sugar 4-7 times a day, Disp: 200 Each, Rfl: 4 ??? ONETOUCH VERIO test strip, USE TO TEST BLOOD SUGAR 5-9 TIMES DAILY, Disp: 200 strip, Rfl: 4 ??? oxybutynin CR 24hr (DITROPAN-XL) 10 MG tablet, Take 1 (one) tablet by mouth at bedtime, Disp: 30 tablet, Rfl: 11 ALLERGIES: Allergies as of 04/23/2022 ??? (No Known Allergies) SOCIAL HISTORY: Patient lives with her parents. she does attend school. FAMILY HISTORY: Negative for any genetic conditions affecting children. ROS: A 12 point review of systems was obtained today and is positive for what is stated above. PHYSICAL EXAMINATION: General appearance: alert, cooperative, no distress. She has good head control. No rashes or abnormal dyspigmentation Extremities: The uninjured right upper extremity was examined and demonstrated normal skin, normal range of motion and alignment of all joint, normal motor, sensory and vascular examination, and was without pain.It was used for comparison when examining the injured left upper extremity. General appearance: no acute distress The examination was performed out of splint/cast Skin: 1.5 x 1 cm mobile, translucent cystic mass over the center of the dorsum of the wrist, mobileand non tender Tenderness: none ROM: normal Strength: normal Gait: normal Neurological Exam: normal Vascular Exam: normal RADIOGRAPHS: AP, lateral, & oblique xrays of the left wrist were taken and assessed today. -Radiographic Assessment: They show no acute fracture or dislocation. No osseous abnormality noted. ASSESSMENT: left wrist mass, likely ganglion cyst PLAN: We discussed observation, aspiration and steroid injection and surgical excision. Each option discussed in detail. We recommend observation as patient's wrist function is unaffected. Questions solicited and answered - patient/family voiced understanding of information and instructions given. Activities/ weight bearing as tolerated. The patient will follow up in 1 year(s). They will call in the interim with questions or concerns. ATTENDING ATTESTATION STATEMENT I have personally seen and evaluated Anaid with the resident/medical student. I confirm the sexton elements of the history to include: Chief Complaint Patient presents with ??? Evaluation cyst on left wrist I have discussed the results of the physical exam and all studies with Anaid and her family. I confirm the sexton elements of the physical exam. I have reviewed all radiographic studies with the resident/medical student and confirm the assessment. I developed the above assessment and discussed it with Anaid's family. The primary encounter diagnosis was Ganglion cyst of dorsum of left wrist. A diagnosis of Type 1 diabetes mellitus without complication was also pertinent to this visit. I confirm the sexton elements of the plan of care to include: observation. Anaid will follow-up in 1 year(s). Fina Lynn MD * Xochilt Swan - 04/23/2022 8:32 AM CDT - Reason for visit: cyst on left wrist - When & How it happened: came on over a year ago, has grown slightly in size, doesn't cause pain or discomfort or limit ROM - Where & how was it treated: n/a - Pain level 0 out of 10 documented in this encounter Plan of Treatment Not on file documented as of this encounter Results * XR WRIST LEFT [...] encounter Visit Diagnoses Diagnosis Ganglion cyst of dorsum of left wrist- Primary Type 1 diabetes mellitus without complication (HCC) Type I (juvenile type) diabetes mellitus without mention of complication, not stated as uncontrolled Ganglion cyst of finger of left hand documented in this encounter Care Teams Leaf Conditioner Relationship Specialty Start Date End Date Alvarez Prabhakar MD [address] [place] [phone] PCP - General 12/12/11 documented as of this encounter
--- OUTSIDE RECORDS SUMMARY | 2024-11-22 05:19 | XMS_ITS | Encounter Summary ---
Author Organization [facility] Address [address] [address] Care Team Providers Care Tank Cleaner Name Role Phone Alvarez Prabhakar MD Primary Care Provider [phone] Reason for Visit * Reason Comments Refill Request Encounter Details Date Type Department Care Team (Late st Contact Info) Description 08/17/2021 Refill [facility] Pediatrics - Diabetes [facility] [address] [place] [address] Kory Lopez, WENDI-MANAGER PUBLIC [address] [place] [phone] Refill Request Social History Tobacco Use Types [...] on filedocumented in this encounter Care Teams Tank Cleaner Relationship Specialty Start Date End Date Alvarez Prabhakar MD [address] [place] [address] PCP - General 12/12/11 documented as of this encounter
--- OUTSIDE RECORDS SUMMARY | 2024-11-22 05:19 | XMS_ITS | Encounter Summary ---
Author Organization [facility] Address [address] [place] [address] Care Team Providers Care Material Cutter Name Role Phone Alvarez Prabhakar MD Primary Care Provider [phone] Reason for Visit * Reason Onset Date Comments MEDICATION REFILL 07/03/2021 Encounter Details Date Type Department Care Team (Late st Contact Info) Description 07/03/2021 Refill [facility] Pediatrics - Diabetes [address] [address] Brendan Zafar MD [address] [place] [phone] MEDICATION REFILL Social History Tobacco Use Types [...] on filedocumented in this encounter Care Teams Material Cutter Relationship Specialty Start Date End Date Alvarez Prabhakar MD [address] [place] [address] PCP - General 12/12/11 documented as of this encounter
--- OUTSIDE RECORDS SUMMARY | 2024-11-22 05:19 | XMS_ITS | Encounter Summary ---
Author Organization [facility] Address [address] [place] [address] Care Team Providers Care Speech Therapy Assistant Name Role Phone Alvarez Prabhakar MD Primary Care Provider [phone] Encounter Details Date Type Department Care Team (Late st Contact Info) Description 06/24/2021 Orders Only [facility] - Endocrinology [address] [place] [address] Breana Olivas MD Type 1 [...] uncontrolled documented in this encounter Care Teams Speech Therapy Assistant Relationship Specialty Start Date End Date Alvarez Prabhakar MD [address] [place] [address] PCP - General 12/12/11 documented as of this encounter
--- OUTSIDE RECORDS SUMMARY | 2024-11-22 05:19 | XMS_ITS | Encounter Summary ---
Author Organization [facility] Address [address] [facility] [place] [address] Care Team Providers Care Wood Borer Name Role Phone Alvarez Prabhakar MD Primary Care Provider [phone] Encounter Details Date Type Department Care Team (Latest Contact Info) Description 03/11/2021 Travel Social History Tobacco Use Types Packs/Day [...] on filedocumented in this encounter Care Teams Wood Borer Relationship Specialty Start Date End Date Alvarez Prabhakar MD [address] [place] [phone] PCP - General 12/12/11 documented as of this encounter
--- OUTSIDE RECORDS SUMMARY | 2024-11-22 05:19 | XMS_ITS | Encounter Summary ---
Author Organization [facility] Address [address] [place] [address] Care Team Providers Care Music Sound Light Technician Name Role Phone Alvarez Prabhakar MD Primary Care Provider [phone] Reason for Visit * Reason Onset Date Comments MEDICATION REFILL 10/30/2020 Encounter Details Date Type Department Care Team (Late st Contact Info) Description 10/30/2020 Refill [facility] - Endocrinology [address] [facility] [place] [address] Kory Lopez, WENDI-CAMP DISHWASHER [address] [place] [phone] MEDICATION REFILL Social History Tobacco Use Types [...] COVID-19? Unable to assess 10/22/2020 3:50 PM SWAHILI TEACHER documented as of this encounter Plan of Treatment Not on file documented as of this encounter Visit Diagnoses Not on filedocumented in this encounter Care Teams Music Sound Light Technician Relationship Specialty Start Date End Date Alvarez Prabhakar MD [address] [place] [phone] PCP - General 12/12/11 documented as of this encounter
--- OUTSIDE RECORDS SUMMARY | 2024-11-22 05:19 | XMS_ITS | Encounter Summary ---
Author Organization [facility] Address [address] [facility] [place] [address] Care Team Providers Care Brand Recorder Name Role Phone Alvarez Prabhakar MD Primary Care Provider [phone] Encounter Details Date Type Department Care Team (Late st Contact Info) Description 04/11/2022 Orders Only [facility] Pediatrics - Endocrinology [address] [place] [address] Breana Olivas MD Type 1 [...] mellitus without complication (HCC) 1 Occurrences starting 04/11/2022 until 04/06/2023 documented as of this encounter Visit Diagnoses Diagnosis Type 1 diabetes mellitus without complication (HCC)- Primary Type I (juvenile type) diabetes mellitus without mention of complication, not stated as uncontrolled documented in this encounter Care Teams Brand Recorder Relationship Specialty Start Date End Date Alvarez Prabhakar MD [address] [place] [phone] PCP - General 12/12/11 documented as of this encounter
--- OUTSIDE RECORDS SUMMARY | 2024-11-22 05:19 | XMS_ITS | Encounter Summary ---
Author Organization [facility] Address [address] [facility] [place] [address] Care Team Providers Care Aircraft Instrument Engineer Name Role Phone Alvarez Prabhakar MD Primary Care Provider [phone] Reason for Referral * Consultation (Routine) - Closed Specialty Diagnoses / Procedures Referred By Fan medina Referred To Contact Nutrition Services Diagnoses Type 1 diabetes mellitus without complication (HCC) Brendan Zafar MD [address] [place] [address] Clin Nutrition [address] [place] [address] Referral ID Status Reason Start Date Expiration Date V isits Requested Visits Authorized [id number] Closed Specialty Services Required 03/12/2021 03/12/2022 4 4 Reason for Visit * Reason Comments Diabetes Encounter Details Date Type Department Care Team (Latest Contact Info) Description 03/12/2021 8:35 AM CDT - 03/12/2021 11:59 PM CDT Hospital Encounter [facility] Pediatrics - Diabetes Mgmt [address] [place] [address] Brendan Zafar MD [address] [place] [address] Discharge Disposition: Home or Self Care Social [...] Sign Reading Time Taken Comments Blood Pressure 114/72 03/12/2021 8:42 AM CDT Pulse - - Temperature - - Respiratory Rate - - Oxygen Saturation - - Inhaled Oxygen Concentration - - Weight 57.6 kg (126 lb 15.8 oz) 03/12/2021 8:42 AM CDT Height 158.1 cm (5' 2.24 ) 03/12/2021 8:42 AM CD T Body Mass Index 23.04 03/12/2021 8:42 AM CDT Body Mass Index Percentile 74.60% 03/12/2021 8:4 2 AM CDT Growth Chart: [facility] (Girls, 2- 20 Years) documented in this [...] Kit 0 08/18/2012 Blood Glucose Monitoring Suppl (ChartITright VERIO IQ SYSTEM) w/Device KIT Use 1 [...] 11 04/21/2017 04/15/2022 insulin glargine (LANTUS SOLOSTAR) penIndications:Type 1 diabetes mellitus without complication (HCC) Inject 29 (twenty nine) Units subcutaneously at bedtime 15 mL 5 03/12/2021 06/17/2021 Insulin Lispro (HUMALOG KWIKPEN) 100 UNIT/MLIndications:T ype 1 diabetes mellitus without complication (HCC) 1 [...] as of this encounter Progress Notes * Brendan Zafar MD - 03/12/2021 5:45 PM CDT Images from the original note were not included. Division of Pediatric Diabetes Management [address] [place] [address]. ? Dept Name: Anaid Dimas Date: 03/12/2021 : 2005 Age: [age] year old Pediatric Diabetes Clinic Visit Subjective / Objective Diabetes Interval History: Here with mother. Hospitalized for DKA about two weeks ago after missed HS Lantusinjection while staying with father. She has alternate weekend visits with father Diabetes Therapies: Long Acting Insulin: Insulin Type Units Time Injection method Comments Lantus 30 10:30 PM Other Insulin Types: Insulin type Injection method Injection given by Meals/Snacks Injection sites Glucose tgt range Comments Humalog 1 u per 10 g carb Units/Gram Carbs: Insulin type Units/meal or snack Gram carbs/meal or snack Comments 5-12 6-12 u meals; 5 u snacks Mealtime Correction & Dose Range: Insulin type Correction units mg/dL Over mg/dL Max units Doserange/meal or snack Comments 1 40 150 8 Other Medications Other Medications: ditropan Blood Glucose Monitoring Sensor Information: Type Placement Change (days) Downloaded Review of sensor shows Comments Dexcom stomach 7 Hypoglycemia Episodes per Week: 2-4 Nocturnal Episodes per Month: 1-3 Recognizes Hypglycemia: when blood sugar is mg/dL Symptoms: shaking, sweating Glucagon: has glucagon Urine Ketone Management Urine Ketone Monitoring: yes Checks When: glucose >250, ill Meal Plan Type of Meal Plan: carb-counting meal plan Interviewed by Speech Therapist Today: Yes History of Present Illness Anaid Dimas is a 15 year old female that was seen today at the [facility] Pediatrics Diabetes clinic for a Follow Up Visit. She was accompanied today by her mother. Since her last visit she has done fairly well. Review of Systems Constitutional: (+) weight gain (-) fever and (-) weight loss Eyes: (-) eye discharge ENT: (-) hearing loss and (-) sore throat Cardiovascular: (-) chest pain Respiratory: (-) cough Gastrointestinal: (-) abdominal pain Genitourinary: (-) abdominal / pelvic pain Musculoskeletal: (-) muscle weakness Integumentary / Skin: (-) rash Neurological: (-) headache Psychiatric / Behavioral: (-) depression Physical Exam Temp: Height: 158.1 cm (5' 2.24 ) 24 %ile (Z= -0.71) based on [facility] (Girls, 2-20 Years) [id number] data based on Stature recorded on 03/12/2021. Weight: 57.6 kg (126 lb 15.8 oz) 63 %ile (Z= 0.32) based on [facility] (Girls, 2-20 Years) [id number]-[id number] data using vitals from 03/12/2021. Constitutional: Not distressed Head: Normocephalic Ears: Normal Eyes: Conjunctivae normal Throat: Oropharynx clear and dentition normal Mouth: moist mucous membranes and normal tongue Neck: Normal range of motion No thyromegaly Cardiovascular: Regular rate and rhythm and normal rate No murmur Pulmonary: Breath sounds normal Abdominal: Soft, no tenderness, no abdominal tenderness, nondistended and no guarding Bowel sounds: normal Musculoskeletal: Moving all extremities equally Skin: Warm No rash History Past Medical History: Diagnosis Date ??? [...] She is in the 10th grade at [employer] and is achieving average grades, IEP. She has an in-tact diabetes managementplan for school. Anaid has good friends and for extracurricular activity Anaid enjoys social media and art. Anaid Dimas expresses feelings of acceptance regarding living with diabetes. History ??? Delivery Method: ??? Gestation Age: 40 wks No NICU stay or intubation Allergies Patient has no known allergies. Immunizations Immunization History Administered Date(s) Administered ??? FLU VACCINE QUAD IIV4 SPLIT PF IM 09/04/2015, 09/09/2016, 09/19/2020 ??? INFLUENZA 08/18/2012, 10/27/2013 Labs Recent Labs Component Name 03/03/21 0942 11/21/20 1321 09/19/20 1516 HGBA1C 8.9* 8.6* 11.8* Recent Labs Component Name 09/19/20 1441 04/12/18 1125 02/12/15 0843 TSH 1.41 0.43 1.54 Recent Labs Component Name 07/11/19 1008 04/12/18 1131 09/09/16 0909 MICROALBCREA 8 <18 <39* Recent Labs Component Name 09/19/20 1441 09/09/16 0910 05/16/13 0902 CHOL 239* 180* 154 TRIG 211* 255 - HDL 80 65 - LDLCALC 117* 64 - Medications Prior to Visit Current Medications ACCU-CHEK [...] ECHO) device Use for insulin delivery. insulin glargine (LANTUS SOLOSTAR) pen Inject 29 (twenty nine) Units subcutaneously at bedtime Insulin Lispro (HUMALOG KWIKPEN) 100 UNIT/ML 1 [...] mouth 3 times daily Assessment & Plan Type 1 diabetes mellitus without complication Type 1 diabetes mellitus, 8-1/2 years duration, [...] every 40 mg/dL over 150 mg/dL. Anaid Dimas's home target blood glucose range: [...] meal snacking without taking insulin. Per the [place] [employer] practice guidelines [Diabetes Care 2015 [...] October 2020 Return appointment in 3 months GCM downloads were reviewed and interpreted (CPT 46159). Greater than 72 hours of CGM data were available. Time in target 28-37 % around an average SG of 150- 210 mg/dL. Sensor glucose range over thisperiod was 60-350 mg/dL. Data observations included: fasting glucose levels mostly 150 mg/dL; higher glucose levels, after breakfast and dinner times; she has 1-2 low's in the 60's overnight per weekover the past two weeks. Based on CGM interpretation the following recommendation/s were made: decrease Lantus dose. Follow Up Return in about 2 months (around 05/12/2021). Brendan Zafar MD [phone] CC: Alvarze Prabhakar MD [address] [place] [address] #5 / [facility] [id number] * Mar Mcrae, RD/LD - 03/12/2021 9:18 AM CDT 03/12/2021 Diabetes Clinical Nutrition Note Assessment & Plan Anaid is a 15 year old female who has completed an encounter for Medical Nutrition Therapy for annual diabetes nutrition assessment. The encounter diagnosis was Type 1 diabetes mellitus without complication. Anthropometrics: Wt Readings from Last 3 Encounters: 03/12/21 126 lb 15.8 oz (57.6 kg) (63 %, Z= 0.32)* 03/04/21 (S) 118 lb 6.2 oz (53.7 kg) (47 %, Z= -0.08)* 11/22/20 130 lb 8.2 oz (59.2 kg) (69 %, Z= 0.50)* * Growth percentiles are based on [facility] (Girls, 2-20 Years) data. Labs/Tests/Procedures Recent Labs Component Name 03/03/21 0942 11/21/20 1321 09/19/20 1516 HGBA1C 8.9* 8.6* 11.8* Recent Labs Component Name 09/19/20 1441 09/09/16 0910 05/16/13 0902 CHOL 239* 180* 154 TRIG 211* 255 - HDL 80 65 - LDLCALC 117* 64 - Medications: Current Outpatient Medications Medication ??? ACCU-CHEK FASTCLIX LANCETS ??? ACCU-CHEK SMARTVIEW test strip ??? acetone,urine, (KETOSTIX) strip ??? acetone,urine, (KETOSTIX) strip ??? Blood Glucose Monitoring Suppl (ACCU-CHEK DRAKE SMARTVIEW) W/DEVICE KIT kit ??? Blood Glucose Monitoring Suppl (ONETOUCH VERIO IQ SYSTEM) w/Device KIT ??? glucagon (GLUCAGON EMERGENCY) injection ??? injection device-insulin (NOVOPEN ECHO) device ??? insulin glargine (LANTUS SOLOSTAR) pen ??? Insulin Lispro (HUMALOG KWIKPEN) 100 UNIT/ML ??? insulin lispro (HUMALOG;ADMELOG) 100 UNIT/ML pen ??? Insulin Pen Needle (BD PEN NEEDLE DRAKE U/F) 32G X 4 MM MISC ??? Insulin Pen Needle (BD PEN NEEDLE DRAKE U/F) 32G X 4 MM MISC ??? insulin syringe-needle (BD ULTRAFINE II) 31G X 5/16 0.3 ML syringe ??? Insulin Syringe-Needle U-100 (SAFESNAP INSULIN SYRINGE) 30G X 5/16 0.5 ML MISC ??? ONETOUCH DELICA LANCETS 33G MISC ??? ONETOUCH VERIO test strip ??? oxybutynin (DITROPAN) 5 MG tablet No current facility-administered medications for this encounter. Estimated Needs: 45 kcal/kg Food and nutrition related history RD met with Anaid in clinic. Mom left as RD was entering the room. Anaid shared she has a newinfant sibling at home. Household includes mom, grandmother, Anaid and sibling. Pt is attending virtual classes from 8 am - 3 pm. She goes to sleep between 12 am - 2 am; back up by 7 am for classes. Typical intake on most days: 1st meal at 11 am: frozen dinner or sausage with fruit or pancakes with syrup or cereal with milk 2nd meal at 3 pm: frozen dinner or leftovers from home cooked meal or from restaurant Snacking on fruit, peanut butter with crackers or toast in late afternoon/early evening 3rd meal at 9 pm: see above Eating location: in room, watching TV or class work Family meals: Never Dining Out: 2-3 times per week Relationship with food: acknowledges hunger and fullness Coping strategies for stress: no strategies Physical Activity/Movement: used to walk more before covid and currently staying home to stay safe . Diabetes management and current carbohydrate counting practices: Anaid is knowledgeable in label reading for carbohydrate count, however, will estimate carbohydrate count, insulin dose and described readings as a roller coaster . Can be between 400-40 and voiced legitimate reasons behind these fluctuations as delayed dosing, inaccurate counting and missed insulin. Nutrition Care Process (1) Nutrition Diagnostic Statement: Altered nutrition-related lab values related to:: endocrine dysfunction as evidenced by:: elevated HgbA1c or plasma glucose Nutrition Intervention: Nutrition Counseling - defined insulin action and how diabetes impacts attitude, energy and mood. - reviewed food sources of basic nutrients and its effect on blood glucose level - described mindfulness in the eating experience with awareness of hunger, fullness and satisfaction - using Motivational Interviewing and Intuitive eating awareness to address current habits to promote health including a more consistent meal pattern. Monitoring: labs Evaluation: Nutrition Goal: Biochemical data will be improved/normalized Nutrition Goal Timeframe: Ongoing Nutrition Goal Progress: Continue with current goal Mar Mcrae RD/VEE 30 minutes have been spent in providing nutrition counseling and nutrition education. Expect fair compliance. Follow up with KAREN in 1 year * Brendan Zafar MD - 03/12/2021 9:00 AM CDT History of Present Illness Anaid Dimas is a 15 year old female that was seen today at the [facility] Pediatrics Diabetes clinic for a Follow Up Visit. She was accompanied today by her mother. Since her last visit she has done fairly well. Review of Systems Constitutional: (+) weight gain (-) fever and (-) weight loss Eyes: (-) eye discharge ENT: (-) hearing loss and (-) sore throat Cardiovascular: (-) chest pain Respiratory: (-) cough Gastrointestinal: (-) abdominal pain Genitourinary: (-) abdominal / pelvic pain Musculoskeletal: (-) muscle weakness Integumentary / Skin: (-) rash Neurological: (-) headache Psychiatric / Behavioral: (-) depression Physical Exam Temp: Height: 158.1 cm (5' 2.24 ) 24 %ile (Z= -0.71) based on CDC (Girls, 2-20 Years) [id number]-[id number] data based on Stature recorded on 03/12/2021. Weight: 57.6 kg (126 lb 15.8 oz) 63 %ile (Z= 0.32) based on CDC (Girls, 2-20 Years) [id number] data using vitals from 03/12/2021. Constitutional: Not distressed Head: Normocephalic Ears: Normal Eyes: Conjunctivae normal Throat: Oropharynx clear and dentition normal Mouth: moist mucous membranes and normal tongue Neck: Normal range of motion No thyromegaly Cardiovascular: Regular rate and rhythm and normal rate No murmur Pulmonary: Breath sounds normal Abdominal: Soft, no tenderness, no abdominal tenderness, nondistended and no guarding Bowel sounds: normal Musculoskeletal: Moving all extremities equally Skin: Warm No rash documented in this encounter Plan of Treatment Scheduled Referrals Name Type Priority Associated Diagnoses Orde r Schedule Referral to Medical Nutrition Therapy Outpatient Referral Routine Type 1 diabetes mellitus without complication (HCC) 1 Occurrences starting 03/12/2021 until 03/12/2021 documented as of this encounter Visit Diagnoses Diagnosis Type 1 diabetes mellitus without complication (HCC)- Primary Type I (juvenile type) diabetes mellitus without mention of complication, not stated as uncontrolled * Assessment & Plan Note - Brendan Zafar MD - 03/12/2021 5:37 PM CDTAssociated Problem(s): Type 1 diabetes mellitus without complication (HCC) Type 1 diabetes mellitus, 8-1/2 years duration, [...] every 40 mg/dL over 150 mg/dL. Anaid Dimas's home target blood glucose range: [...] meal snacking without taking insulin. Per the [place] Diabetes [employer] practice guidelines [Diabetes Care 2015 [...] October 2020 Return appointment in 3 months documented in this encounter Care Teams Aircraft Instrument Engineer Relationship Specialty Start Date End Date Alvarez Prabhakar MD [address] [place] [address] PCP - General 12/12/11 documented as of this encounter
--- OUTSIDE RECORDS SUMMARY | 2024-11-22 05:19 | XMS_ITS | Encounter Summary ---
Author Organization [facility] Address [address] [facility] [place] [address] Care Team Providers Care Independent Marketing Consultant Name Role Phone Alvarez Prabhakar MD Primary Care Provider [phone] Reason for Visit * Reason Comments Refill Request Encounter Details Date Type Department Care Team (Late st Contact Info) Description 12/15/2019 Refill [facility] Pediatrics - Diabetes [facility] [address] [place] [address] Kory Lopez APRN-BUSINESS ECONOMIST [address] [place] [phone] Refill Request Social History Tobacco Use Types [...] of insulin (HCC) documented in this encounter Care Teams Independent Marketing Consultant Relationship Specialty Start Date End Date Alvarez Prabhakar MD [address] [place] [address] PCP - General 12/12/11 documented as of this encounter
--- OUTSIDE RECORDS SUMMARY | 2024-11-22 05:19 | XMS_ITS | Encounter Summary ---
Author Organization [facility] Address [address] [facility] [place] [address] Care Team Providers Care Php Programmer Name Role Phone Alvarez Prabhakar MD Primary Care Provider [phone] Reason for Visit * Reason Onset Date Comments MEDICATION REFILL 12/17/2020 Encounter Details Date Type Department Care Team (Late st Contact Info) Description 12/17/2020 Refill [facility] Pediatrics - Diabetes Mgmt [address] [place] [address] Jesus Jacques MD [address] [place] [address] MEDICATION REFILL Social History Tobacco Use Types [...] COVID-19? No / Unsure 11/21/2020 1:09 PM HOG DROPPER documented as of this encounter Plan of Treatment Not on file documented as of this encounter Visit Diagnoses Not on filedocumented in this encounter Care Teams Php Programmer Relationship Specialty Start Date End Date Alvarez Prabhakar MD [address] [place] [phone] PCP - General 12/12/11 documented as of this encounter
--- OUTSIDE RECORDS SUMMARY | 2024-11-22 05:19 | XMS_ITS | Encounter Summary ---
Author Organization [facility] Address [address] [facility] [place] [place] [address] Care Team Providers Care Sustainability Director Name Role Phone Alvarez Prabhakar MD Primary Care Provider [phone] Encounter Details Date Type Department Care Team (Latest Contact Info) Description 06/20/2021 Travel Social History Tobacco Use Types Packs/Day [...] on filedocumented in this encounter Care Teams Sustainability Director Relationship Specialty Start Date End Date Alvarez Prabhakar MD [address] [place] [phone] PCP - General 12/12/11 documented as of this encounter
--- OUTSIDE RECORDS SUMMARY | 2024-11-22 05:19 | XMS_ITS | Encounter Summary ---
Author Organization [facility] Address [address] [facility] [facility] [place] [address] Care Team Providers Care Summer Clerk Name Role Phone Alvarez Prabhakar MD Primary Care Provider [phone] Reason for Visit * Reason Onset Date Comments Follow-up 03/07/2021 Encounter Details Date Type Department Care Team (Late st Contact Info) Description 03/07/2021 Telephone [facility] Pediatrics - Diabetes [id number] [place] [address] Kory Lopez APRN-DIRECTOR OF SCIENTIFIC RESEARCH [address] [place] [phone] Follow-up Social History Tobacco Use Types Packs/Day [...] Encounter - Lizeth Garrett RN - 03/07/2021 5:24 PM CDT Returned call to mother as Dr. Zafar is willing to see her as long as single case agreementis possible. Told her to call next week before coming to hospital in the event she is not able to be seen. She agreed. As of March 23 she will have [place] and [facility] documented in this encounter Plan of Treatment Not on file documented as of this encounter Visit Diagnoses Not on filedocumented in this encounter Care Teams Summer Clerk Relationship Specialty Start Date End Date Alvarez Prabhakar MD [address] [place] [address] PCP - General 12/12/11 documented as of this encounter
--- OUTSIDE RECORDS SUMMARY | 2024-11-22 05:19 | XMS_ITS | Encounter Summary ---
Author Organization [facility] Address [address] [facility] [place] [address] Care Team Providers Care News Anchor Name Role Phone Alvarez Prabhakar MD Primary Care Provider [phone] Encounter Details Date Type Department Care Team (Late st Contact Info) Description 03/28/2021 [facility]phone [facility] End[facility] [address] [place] [address] Brendan Zafar MD [address] [place] [phone] Social History Tobacco Use Types Packs/Day Years [...] Miscellaneous Notes * Telephone Encounter - Linda Torres RN - 03/28/2021 8:41 AM CDT PA sent to [facility] for Humalog. documented in this encounter Plan of Treatment Not on file documented as of this encounter Visit Diagnoses Not on filedocumented in this encounter Care Teams News Anchor Relationship Specialty Start Date End Date Alvarez Prabhakar MD [address] [place] [address] PCP - General 12/12/11 documented as of this encounter
--- OUTSIDE RECORDS SUMMARY | 2024-11-22 05:19 | XMS_ITS | Encounter Summary ---
Author Organization [facility] Address [address] [facility] [place] [address] Care Team Providers Care Architect Name Role Phone Alvarez Prabhakar MD Primary Care Provider [phone] Reason for Visit * Reason Onset Date Comments MEDICATION REFILL 10/26/2020 Encounter Details Date Type Department Care Team (Late st Contact Info) Description 10/26/2020 Refill [facility] Pediatrics - Diabetes Mgmt [address] [place] [address] Kory Lopez, WENDI-LMFT [address] [place] [phone] MEDICATION REFILL Social History Tobacco Use Types [...] COVID-19? Unable to assess 10/22/2020 3:50 PM JAVA DEVELOPMENT TEAM LEAD documented as of this encounter Plan of Treatment Not on file documented as of this encounter Visit Diagnoses Diagnosis Type 1 diabetes mellitus without complication (HCC) Type I (juvenile type) diabetes mellitus without mention of complication, not stated as uncontrolled documented in this encounter Care Teams Architect Relationship Specialty Start Date End Date Alvarez Prabhakar MD [address] [place] [address] PCP - General 12/12/11 documented as of this encounter
--- OUTSIDE RECORDS SUMMARY | 2024-11-22 05:19 | XMS_ITS | Encounter Summary ---
Author Organization [facility] Address [address] [place] [address] Care Team Providers Care Electronic Systems Security Assessment Name Role Phone Alvarez Prabhakar MD Primary Care Provider [phone] Encounter Details Date Type Department Care Team (Latest Contact Info) Description 09/12/2020 Travel Social History Tobacco Use Types Packs/Day [...] on filedocumented in this encounter Care Teams Electronic Systems Security Assessment Relationship Specialty Start Date End Date Alvarez Prabhakar MD [address] [place] [address] PCP - General 12/12/11 documented as of this encounter
--- OUTSIDE RECORDS SUMMARY | 2024-11-22 05:19 | XMS_ITS | Encounter Summary ---
Author Organization [facility] Address [address] [facility] [place] [address] Care Team Providers Care Web Content Editor Name Role Phone Alvarez Prabhakar MD Primary Care Provider [phone] Encounter Details Date Type Department Care Team (Latest Contact Info) Description 07/09/2021 Travel Social History Tobacco Use Types Packs/Day [...] on filedocumented in this encounter Care Teams Web Content Editor Relationship Specialty Start Date End Date Alvarez Prabhakar MD [address] [place] [phone] PCP - General 12/12/11 documented as of this encounter
--- OUTSIDE RECORDS SUMMARY | 2024-11-22 05:19 | XMS_ITS | Encounter Summary ---
Author Organization [facility] Address [address] [place] [address] Care Team Providers Care Slate Roofer Name Role Phone Alvarez Prabhakar MD Primary Care Provider [phone] Reason for Visit * Reason Onset Date Comments MEDICATION REFILL 11/28/2019 Encounter Details Date Type Department Care Team (Late st Contact Info) Description 11/28/2019 Refill [facility] Pediatrics - Diabetes [id number] [place] [address] Breana Olivas MD MEDICATION REFILL Social History [...] Telephone Encounter - Linda Torres, RN - 11/28/2019 11:20 AM CST Following up on several faxes we have received from [employer] about changing Anaid's rapid acting insulin to Humalog due to insurance preference. LMOM, asking for a call back. Order placed for Humalog. SOURCE DEVELOPER documented in this encounter Plan of Treatment Not on file documented as of this encounter Visit Diagnoses Not on filedocumented in this encounter Additional Health Concerns Infection Onset Date Last Indicated Resolved Time COVID-19 Under Investigation 03/03/2021 03/03/2021 03/03/2021 11:11 AM CDT documented as of this encounter Care Teams Slate Roofer Relationship Specialty Start Date End Date Alvarez Prabhakar MD [address] [place] [address] PCP - General 12/12/11 documented as of this encounter
--- OUTSIDE RECORDS SUMMARY | 2024-11-22 05:20 | XMS_ITS | Encounter Summary ---
Author Organization [facility] Address [address] [place] [address] Care Team Providers Care Diesel Tractor Engine Mechanic Name Role Phone Alvarez Prabhakar MD Primary Care Provider Reason for Visit * Reason Onset Date Comments MEDICATION REFILL 04/13/2018 Encounter Details Date Type Department Care Team (Late st Contact Info) Description 04/13/[address] [facility] Pediatrics - Diabetes [address] [place] [address] Breana Olivas MD MEDICATION REFILL Social History Tobacco Use Types Packs/Day Years Used Date Smoking Tobacco: Never Alcohol Use Standard Drinks/Week Comments [...] on filedocumented in this encounter Care Teams Diesel Tractor Engine Mechanic Relationship Specialty Start Date End Date Alvarez Prabhakar MD [address] [place] [id number] PCP - General 12/12/11 documented as of this encounter
--- OUTSIDE RECORDS SUMMARY | 2024-11-22 05:20 | XMS_ITS | Encounter Summary ---
Author Organization [facility] Address [address] [place] [address] Care Team Providers Care Application Development Team Lead Name Role Phone Alvarez Prabhakar MD Primary Care Provider [phone] Reason for Visit * Reason Onset Date Comments MEDICATION REFILL 10/20/2018 Encounter Details Date Type Department Care Team (Late st Contact Info) Description 10/20/2018 Refill [facility] Pediatrics - Diabetes [facility] [address] [place] [address] Kory Lopez APRN-CELLO TEACHER [address] [place] [id number] MEDICATION REFILL Social History Tobacco Use Types [...] uncontrolled documented in this encounter Care Teams Application Development Team Lead Relationship Specialty Start Date End Date Alvarez Prabhakar MD [address] [place] [phone] PCP - General 12/12/11 documented as of this encounter
--- OUTSIDE RECORDS SUMMARY | 2024-11-22 05:20 | XMS_ITS | Encounter Summary ---
Author Organization [facility] Address [address] [facility] [place] [address] Care Team Providers Care Equipment Operator Intermodal Yard Name Role Phone Alvarez Prabhakar MD Primary Care Provider [phone] Encounter Details Date Type Department Care Team (Late st Contact Info) Description 09/04/2015 Orders Only [facility]ocr[facility] [address] [place] [address] Kory Lopez APRN-COGNOS CONSULTANT [address] [place] [id number] Type 1 diabetes mellitus without complication (HCC) [...] documented as of this encounter Results * (ABNORMAL) HEMOGLOBIN A1C - POCT (IP) ALEXANDRA (09/04/2015 8:36 AM CDT) Hemoglobin A1c POCT 7.8(A) 3.4 - 6.1 % [facility] POCT TESTING QC Verified Yes Yes [facility] PO CT TESTING Blood specimen (specimen) BLOOD SPECIMEN / Unknown 09/04/2015 8:36 AM CDT Kory Lopez CHAR HOUSE SUPERVISOR-COGNOS CONSULTANT LAB - POINT OF CARE ORDERABLES [facility] POCT TESTING [address] [phone] documented in this encounter Visit Diagnoses Diagnosis Type 1 diabetes mellitus without complication (HCC)- Primary Type I (juvenile type) diabetes mellitus without mention of complication, not stated as uncontrolled documented in this encounter Care Teams Equipment Operator Intermodal Yard Relationship Specialty Start Date End Date Alvarez Prabhakar MD [address] [place] [address] PCP - General 12/12/11 documented as of this encounter
--- OUTSIDE RECORDS SUMMARY | 2024-11-22 05:20 | XMS_ITS | Encounter Summary ---
Author Organization [facility] Address [address] [place] [address] Care Team Providers Care Manufacturing Systems Engineer Name Role Phone Alvarez Prabhakar MD Primary Care Provider [phone] Reason for Visit * Reason Comments Diabetes Encounter Details Date Type Department Care Team (Late st Contact Info) Description 05/29/2015 11:30 AM CDT - 05/29/2015 11:59 PM CDT Hospital Encounter [facility] Pediatrics - Diabetes Mgmt [address] [place] [address] Kory Lopez APRN-VEGETABLE THINNER [address] [place] [phone] Discharge Disposition: Home or Self Care Social History Tobacco Use Types Packs/Day Years Used Date Smoking Tobacco: Never Assessed Sex and Gender Information Value Date Recorded Sex Assigned at Not on file Gender Identity Not on file Sexual Orientation Not on file documented as of this encounter Last Filed Vital Signs Vital Sign Reading Time Taken Comments Blood Pressure 102/64 05/29/2015 11:49 AM CDT Pulse - - Temperature - - Respiratory Rate - - Oxygen Saturation - - Inhaled Oxygen Concentration - - Weight 29.1 kg (64 lb 2.5 oz) 5 11:49 AM CDT Height 139 cm (4' 6.72 ) 05/29/2015 11: 49 AM CDT Body Mass Index 15.06 05/29/2015 11:49 AM CDT Body Mass Index Percentile 13.78% 05/29 11:49 AM CDT Growth Chart: [facility] (Girls, 2- 20 Years) documented in this encounter Discharge Instructions * Patient Instructions* Kory Lopez APRN-CNP - 05/29/2015 12:14 PM CDT 1) no changes at this time 2) Return in 3 months for Devon, [address] Olivas 3) call as needed to review blood sugars 4) Lantus is to be given daily under all circumstances. No situation exists where Lantus should be skipped. documented in this encounter Medications at Time of Discharge Medication Sig Dispensed Refills Start Date End Date Blood Glucose Monitoring Suppl (ACCU-CHEK DRAKE SMARTVIEW) W/DEVICE KIT kitIndications:Diabe olesya mellitus type 1 (HCC) Use for blood glucose monitoring. 1 Kit 0 08/18/2012 ACCU-CHEK FASTCLIX LANCETSIndications:D iabetes mellitus type 1 (HCC) Use for blood glucose monitoring 4-6 times/day. 200 Each 11 10/19/2013 07/10/2015 acetone,urine, (KETOSTIX) strip Use as needed (use when blood sugar is greater than 250 or when ill. ). 100 Strip 11 02/12/2015 04/21/2017 acetone,urine, (KETOSTIX) stripIndications:Nahed betes mellitus type 1 (HCC) Use as directed for urine ketone checks if blood sugar above 200 or if ill. Dispense one bottle for school and one for home. 100 Strip 3 09/15/2014 10/01/2015 blood glucose (ACCU-CHEK SMARTVIEW) test stripIndications:Nahed betes mellitus type 1 (HCC) Use for blood glucose monitoring 4-6 times/day. 200 Strip 11 09/12/2014 09/20/2015 glucagon (GLUCAGON EMERGENCY) injectionIndications :Diabetes mellitus type 1 (HCC) Inject 1 mg into muscle as directed for severe low blood sugar reaction. 2 Kit 0 08/11/2014 07/07/2017 insulin glargine (LANTUS) vialIndications:Diab etes mellitus type 1 (HCC) Inject 3.5 Units subcutaneously at bedtime. 1 Vial 3 02/02/2015 03/18/2016 insulin lispro (HUMALOG) cartridge Inject 0.5 unit for every 20-40 grams carbohydrate or as directed. 15 mL 5 03/19/2015 03/18/2016 Insulin Pen Needle (BD PEN NEEDLE DRAKE U/F) 32G X 4 MM MISCIndications:Diab etes mellitus type 1 (HCC) Use 4-6 Each as directed. Use for injections 4-6 times daily. 200 Each 11 10/19/2013 08/09/2015 insulin syringe-needle (B-D INS SYR HALF-UNIT .3CC/31G) 31G X /16 0.3 ML syringeIndications:D iabetes mellitus type 1 (HCC) Use for injections 1-2 times daily. 100 Each 11 06/20/2014 04/17/2020 documented as of this encounter Progress Notes * Kory Lopez, WENDI-VEGETABLE THINNER - 05/29/2015 12:01 PM CDT Images from the original note were not included. Pediatric Diabetes Clinic Follow-Up Note [facility] Anaid Dimas and her mother were in our Pediatric Endocrinology clinic at [facility] on 05/29/2015. She is a 9 y.o. 7 m.o. who has: Problem Type 1 Diabetes Mellitus Diagnosed 08/17/2012 [facility]???s current treatment regimen is as follows: Insulin Brand/Type:humalog Delivery Device:luxura Insulin to Carbohydrate Ratios:0.5/20 Correction Dose:0.5 per 50 over 200 Lantus Dose:5 Injection Sites and Compliance:given by mother, herself and father, in her legs, stomach, arms, before meals Average Daily Total: 19 units Other Medications: none Interval History: Significant for no major issues. She has experienced no major issues related to diabetes management since our past visit. Diabetes Self-Management: Anaid checks her blood glucose 4-6 times per day using a drake meter.Per ADA guidelines, people with type 1 [...] the blood sugar is less than 70. Anaid feels the following symptoms when he/she is hypoglycemic: shaking, sweating and hunger. Low blood sugars are treated with chocolate with 10 gram carb. This patient has glucagon and She does not wear her Medic-Alert tag. Anaid checks urine for ketones when glucose >250 and ill. Past Medical History: Social History: History Social History Narrative Social History: Anaid lives with mother. Goes to father's every other weekend. She is in the 5thgrade at [employer] and is achieving average grades. She has an in-tact diabetes management plan for school. Anaid has good friends and for extracurricular activity Anaid enjoys playing tag and hide and go seek, trampoline, jumping rope. Anaid Dimas expresses feelings of acceptance regarding living with diabetes. Review of Systems: General: sleeping well, good energy ENT: normal vision, brushes teeth BID Skin: normal Cardiorespiratory: normal Gastrointestinal: normal Genitourinary: premenarchal, nocturnal enuresis 3 nights per week Endocrine: no fatigue or temperature intolerance Psychiatric: seen for ADHD- not treated at this time, behavior markedly better than at our last visit Neurologic: normal Musculoskeletal: No muscle weakness, No joint pain and normal range of motion Physical Examination: BP 102/64 mmHg Ht 1.39 m (4' 6.72 ) Wt 29.1 kg (64 lb 2.5 oz) BMI 15.06 kg/m2 Height: 139 cm (4' 6.72 ) General: alert and oriented; well-appearing Eyes: [...] strength and tone, normal gait Laboratory Data: Results for orders placed during the hospital encounter of 05/29/15 HEMOGLOBIN A1C - POCT (IP) CRISTINEAKER Result Value Ref Range Hgb A1C POCT 7.4 (*) 3.4 - 6.1 % QC Verified Yes Yes 14-Day Blood Glucose Statistics: Pre-Breakfast Pre-Lunch Pre-Dinner Bedtime Other Low 137 91 64 57 High 246 254 240 448 ~Average~ 170 145 125 170 Assessment and Management Plan: Excellent diabetes management. Mother concerned that when she goes to her father's on weekend he is not giving her lantus if her blood sugar is low at bedtime. Mother will confront him about this. I advised that he attend one of her diabetes appointments for education. Type 1 diabetes mellitus 1) no changes at this time 2) Return in 3 months for Devon, [address] Olivas 3) call as needed to review blood sugars 4) Lantus is to be given daily under all circumstances. No situation exists where Lantus should be skipped. Of the 45 minutes spent with Anaid, 30 minutes were spent discussing HgbA1c, hypoglycemia, ketosis, exercise, glucagon, sick days, control and complications, blood glucose monitoring and parental supervision Follow-Up: Return in about 3 months (around 08/29/2015) for devon, [address] Olivas. ABIDA Clarke CC: Alvarez Prabhakar [address] [place] [address] [address] / [facility] [id number] Date: 05/29/2015 12:01 PM documented in this encounter Plan of Treatment Not on file documented as of this encounter Procedures Procedure Name Priority Date/Time Associated Diagnosis Comments HEMOGLOBIN A1C - POCT (IP) ALEXANDRA Routine 05/29/2015 11:54 AM CDT Type 1 diabetes mellitus without complication (HCC) documented in this encounter Results * (ABNORMAL) HEMOGLOBIN A1C - POCT (IP) ALEXANDRA (05/29/2015 11:54 AM CDT) Hemoglobin A1c POCT 7.4(A) 3.4 - 6.1 % [facility] POCT TESTING QC Verified Yes Yes [facility] PO CT TESTING Blood specimen (specimen) BLOOD SPECIMEN / Unknown 05/29/2015 11:54 AM CDT Kory TAI LAB - POINT OF CARE ORDERABLES [facility] POCT TESTING [address] [place] [address], [facility] [phone] documented in this encounter Visit Diagnoses Diagnosis Type 1 diabetes mellitus without complication (HCC) Type I (juvenile type) diabetes mellitus without mention of complication, not stated as uncontrolled * Assessment & Plan Note - Kory Lopez APRN-CNP - 05/29/2015 3:14 PM CDT Associated Problem(s): Type 1 diabetes mellitus without complication (HCC) 1) no changes at this time 2) Return in 3 months for Devon, [address] Olivas 3) call as needed to review blood sugars 4) Lantus is to be given daily under all circumstances. No situation exists where Lantus should be skipped. documented in this encounter Care Teams Manufacturing Systems Engineer Relationship Specialty Start Date End Date Alvarez Prabhakar MD [address] [place] [address] PCP - General 12/12/11 documented as of this encounter
--- OUTSIDE RECORDS SUMMARY | 2024-11-22 05:20 | XMS_ITS | Encounter Summary ---
Author Organization [facility] Address [address] [facility] [place] [address] Care Team Providers Care Oxygen Therapy Teacher Name Role Phone Alvarez Prabhakar MD Primary Care Provider [phone] Reason for Visit * Reason Onset Date Comments MEDICATION REFILL 07/11/2019 Encounter Details Date Type Department Care Team (Late st Contact Info) Description 07/11/2019 Refill [facility] Pediatrics - Diabetes [address] [address] Breana Olivas MD MEDICATION REFILL Social History [...] uncontrolled documented in this encounter Care Teams Oxygen Therapy Teacher Relationship Specialty Start Date End Date Alvarez Prabhakar MD [address] [place] [address] PCP - General 12/12/11 documented as of this encounter
--- OUTSIDE RECORDS SUMMARY | 2024-11-22 05:20 | XMS_ITS | Encounter Summary ---
Author Organization [facility] Address [address] [facility] [place] [address] Care Team Providers Care Specification Consultant Name Role Phone Alvarez Prabhakar MD Primary Care Provider [phone] Reason for Visit * Evaluate & Treat (Routine) - Closed Specialty Diagnoses / Procedures Referred By Fan medina Referred To Contact Nurse Practitioner / Diabetes Management [facility] Kory Lopez APRN-CNP 1 [place] [address] Referral ID Status Reason Start Date Expiration Date Visits Re quested Visits Authorized [id number] Closed 03/10/2016 09/06/2016 1 1 Encounter Details Date Type Department Care Team (Late st Contact Info) Description 03/10/2016 8:00 AM CDT - 03/10/2016 11:59 PM CDT Hospital Encounter [facility] - Diabetes [facility] [address] [place] [address] Kory Lopez APRN-CNP 1 [place] [address] Discharge Disposition: Home or Self Care Social [...] Sign Reading Time Taken Comments Blood Pressure 98/60 03/10/2016 8:32 AM CDT Pulse - - Temperature - - Respiratory Rate - - Oxygen Saturation - - Inhaled Oxygen Concentration - - Weight 32.6 kg (71 lb 13.9 oz) 03/10/2016 8:32 A M CDT Height 144.9 cm (4' 9.05 ) 03/10/2016 8:32 AM CD T Body Mass Index 15.53 03/10/2016 8:32 AM CDT Body Mass Index Percentile 15.24% 03/10/2016 8:3 2 AM CDT Growth Chart: [facility] (Girls, 2- 20 Years) documented in this encounter Discharge Instructions * Patient Instructions* Kory Lopez APRN-CNP - 03/10/2016 9:01 AM CDT 1) increase lantus to 7.5 units 2) increase Humalog to 0.5/15 3) supervise as much as possible 4) call in blood sugars on Thursday 5) return in 3 months for Devon, [address] Olivas documented in this encounter Medications at Time of Discharge Medication Sig Dispensed Refills Start Date End Date Blood Glucose Monitoring Suppl (ACCU-CHEK DRAKE SMARTVIEW) W/DEVICE KIT kitIndications:Diabe olesya mellitus type 1 (HCC) Use for blood glucose monitoring. 1 Kit 0 08/18/2012 ACCU-CHEK FASTCLIX LANCETS Use for blood glucose monitoring 4-6 times/day. 200 Each 11 07/10/2015 08/04/2016 acetone,urine, (KETOSTIX) stripIndications:Typ e 1 diabetes mellitus without complication (HCC) Use as directed for urine ketone checks if blood sugar above 200 or if ill. Dispense one bottle for school and one for home. 100 Strip 3 10/01/2015 07/14/2017 acetone,urine, (KETOSTIX) strip Use as needed (use when blood sugar is greater than 250 or when ill. ). 100 Strip 11 02/12/2015 04/21/2017 blood glucose (ACCU-CHEK SMARTVIEW) test stripIndications:Typ e 1 diabetes mellitus without complication (HCC) Use for blood glucose monitoring 4-6 times/day. 200 Strip 11 09/20/2015 10/13/2016 glucagon (GLUCAGON EMERGENCY) injectionIndications :Diabetes mellitus type [...] injections 4-6 times daily. 200 Each 11 08/09/2015 04/21/2017 insulin syringe-needle (B-D INS SYR HALF-UNIT .3CC/31G) 31G X 5/16 0.3 ML syringeIndications:D iabetes mellitus type 1 (HCC) Use for injections 1-2 times daily. 100 Each 11 06/20/2014 04/17/2020 Insulin Syringe-Needle U-100 (BD INSULIN SYRINGE ULTRAFINE) 31G X 15/64 0.3 ML syringe Use for injection daily. 100 Syringe 11 01/31/2016 02/23/2017 documented as of this encounter Progress Notes * Kory Lopez, WENDI-MANAGER INFUSION - 03/10/2016 8:34 AM CDT Images from the original note were not included. Pediatric Diabetes Clinic Follow-Up Note [facility] Anaid Dimas and her mother were in our Pediatric Endocrinology clinic at [facility] on 03/10/2016. She is a 10 y.o. 4 m.o. who has: Problem Type 1 Diabetes Mellitus Diagnosed 08/17/2012 Anaid???s current treatment regimen is as follows: Insulin Brand/Type:Humalog Delivery Device:Luxura Insulin to Carbohydrate Ratios:0.5U per 20 carbs Correction Dose:1 unit per every 100 over 200 Lantus Dose:5.5 Injection Sites and Compliance:Given by self and mother in thighs, abdomen, and buttocks before meals at home and after at school. Average Daily Total: 26 units Other Medications: None Interval History: Significant for finger nail infection & URI needing amoxicillin for 10 days. She has experienced trace ketones at school and she just increases her water intake related to diabetes management since our past visit. Diabetes Self-Management: Anaid checks her blood glucose 4-5 times per day using a AccuCheck Drake meter.Per ADA guidelines, people with type 1 diabetes on multiple-dose insulin or insulin pump therapy should perform SMBG prior to meals and snacks, occasionally post-prandial, at bedtime, prior to exercise, when they suspect low blood glucose, after treating low blood glucose until they are normoglycemic, and prior to critical tasks such as driving. Anaid???s target blood glucose range is 80-150. Anaid experiences 1 lows per week that are sensed when the blood sugar is 60's. Anaid feels the following symptoms when he/she is hypoglycemic: shaking and weak. Low blood sugars are treated with pop-tarts and snacks. This patient has glucagon and She does wear her Medic- Alert tag. Bernardo does have one. Anaid checks urine for ketones when glucose >250 and ill. Past Medical History: Social History: Anaid lives with mom and grandmother. She is in the 5th grade at [employer] and is achieving good grades. She has an in-tact diabetes management plan for school. Anaid hasgood friends and for extracurricular activity Anaid enjoys art, playing on park, hugging mom, playing with dog, going outside. Anaid Dimas expresses feelings of acceptance regarding living with diabetes. Review of Systems: General: Good energy and sleeps well. ENT: Good vision and brushes teeth BID Skin: normal Cardiorespiratory: normal Gastrointestinal: stomach feels hot points to umbilical area. States it happens after she eats. Mom feels like it's when she eats too much dairy. Dad is lactose intolerant. Genitourinary: frequency, nocturia, premenarchal Endocrine: no fatigue or temperature intolerance Psychiatric: no anxiety or depression Neurologic: no headaches or tremors Musculoskeletal: No muscle weakness, No joint pain and normal range of motion Physical Examination: BP 98/60 mmHg Ht 1.449 m (4' 9.05 ) Wt 32.6 kg (71 lb 13.9 oz) BMI 15.53 kg/m2 General: alert and oriented; well-appearing Eyes: Normal- [...] normal gait Laboratory Data: Hospital Encounter on 03/10/16 HEMOGLOBIN A1C - POCT (IP) BEAKER Result Value Ref Range Hgb A1C POCT 9.2 (Abnormal) 3.4 - 6.1 % QC Verified Yes Yes 14-Day Blood Glucose Statistics: Pre-Breakfast Pre-Lunch Pre-Dinner Bedtime Other Low 206 43 72 94 High 320 318 216 309 ~Average~ 267 200 155 215 Assessment and Management Plan: increased insulin requirements as compliance does not appear to be an issue at this time. See changes below. Type 1 diabetes mellitus 1) increase lantus to 7.5 units 2) increase Humalog to 0.5/15 3) supervise as much as possible 4) call in blood sugars on Thursday 5) return in 3 months for Devon, [address] Olivas Of the 45 minutes spent with Anaid, 35 minutes were spent discussing HgbA1c, hypoglycemia, ketosis, exercise, glucagon, sick days, control and complications, blood glucose monitoring and parental supervision Follow-Up: Return in about 3 months (around 06/09/2016) for devon, [address] Olivas. Kory Lopez, CAD DRAFTER-MANAGER INFUSION CC: Alvarez Prabhakar MD [address] [place] [address] #5 / [facility] [id number] Date: 03/10/2016 8:34 AM documented in this encounter Consult Notes * Mar Mcrae, RD/LD - 03/10/2016 9:08 AM CDT Date: 03/10/2016 Diabetes Clinical Nutrition Assessment Anaid Dimas is a 10 y.o. 4 m.o. female seen in diabetes clinic for annual nutrition assessment The encounter diagnosis was Type 1 diabetes mellitus without complication. Anthropometrics: Weight: 32.6 kg (71 lb 13.9 oz) 17%ile (Z=-0.95) based on CDC 2-20 Years isqyne-ucg-wmx data using vitals from 03/10/2016. Height: 144.9 cm (4' 9.05 ) 39%ile (Z=-0.27) based on CDC 2-20 Years rqrytyb-wzh-hju data using vitals from 03/10/2016. Body mass index is 15.53 kg/(m^2). 15%ile (Z=-1.03) based on CDC 2-20 Years BMI-for-age data using vitals from 03/10/2016. Wt Readings from Last Encounters: 09/04/15 29.3 kg (64 lb 9.5 oz) (11 %*, Z = -1.23) 05/29/15 29.1 kg (64 lb 2.5 oz) (14 %*, Z = -1.09) Recent Labs Component Name 03/10/16 0842 09/04/15 0836 05/29/15 1154 HGBA1C 9.2* 7.8* 7.4* Medications: Current Outpatient Prescriptions Medication ??? insulin lispro (HUMALOG) cartridge ??? insulin glargine (LANTUS) vial ??? Insulin Syringe-Needle U-100 (BD INSULIN SYRINGE ULTRAFINE) 31G X 15/64 0.3 ML syringe ??? acetone,urine, (KETOSTIX) strip ??? blood glucose (ACCU-CHEK SMARTVIEW) test strip ??? Insulin Pen Needle (BD PEN NEEDLE DRAKE U/F) 32G X 4 MM MISC ??? ACCU-CHEK FASTCLIX LANCETS ??? acetone,urine, (KETOSTIX) strip ??? glucagon (GLUCAGON EMERGENCY) injection ??? insulin syringe-needle (B-D INS SYR HALF-UNIT .3CC/31G) 31G X 5/16 0.3 ML syringe ??? Blood Glucose Monitoring Suppl (ACCU-CHEK DRAKE SMARTVIEW) W/DEVICE KIT kit No current facility-administered medications for this encounter. Food and nutrition related history: Mom describes Anaid's appetite as steadily increasing, always hungry and described mindless eating behaviors. Growth velocity appears age appropriate. Nutrition profile reveals meal pattern of 3meals, 2 snacks including variety of fresh fruit, vegetables, meat and her favorite desserts of cookies, ice cream, sugar sweetened cereal and pop tarts. Mom related efforts to minimize intake to improve diabetes control because she did not realize insulin adjustment would be preferred treatment. Insulin is delivered before eating at home and after showing lunch tray to nurse at school. Typical intake on most days: B: prepared by grandfather: ham, egg and cheese sandwich and bowl cereal with 2% milk L: school lunch or at home: grilled cheese sandwich, chips or popcorn, fresh fruit, sugar free drink School snack: string cheese, peanut butter crackers, fresh fruit with insulin After school 4:30 pm: large snack with grandfather: hot dog or pizza, chips, cookie D: 7-8 pm: variety of meat, vegetables and always dessert of cereal, pop tart or ice cream Dining Out: 1-2 time per week. Physical Activity: active in gym class, recess, rides her bike, hoola hoop , plays soccer Nutrition Care Process (1) Nutrition Diagnostic Statement: (NC-2.2) Altered nutrition-related lab values related to: insufficient insulin coverage as evidenced by : elevated A1c and insulin adjustments Nutrition Diagnostic Statement Progress: New diagnostic statement established Nutrition Intervention: Nutrition Counseling: Overall impression: Anaid has experienced a growth spurt requiring need for more insulin which was adjusted per PNP. Mom verbally understood how adjustment in insulin vs limiting overall carbohydrates intake from a growing pre teenager is better treatment in improving overall diabetes control. Anaid will eat dinner and snacks in front of TV and not fully paying attention to her hunger or satiety level. Defined mindful eating and reviewed needs for age appropriate growth and development. Nutrition Goal: Recommend all meals and snacks to be eaten at the kitchen table with minimal distractions Biochemical data will be improved/normalized Nutrition Goal Timeframe: Ongoing Mar Mcrae RD/VEE 30 minutes have been spent in providing nutrition counseling and education. Mom verbalized understanding of the plan and anticipate good compliance. Follow up with RD in 1 year documented in this encounter Plan of Treatment Not on file documented as of this encounter Procedures Procedure Name Priority Date/Time Associated Diagnosis Comments HEMOGLOBIN A1C - POCT (IP) BEAKER Routine 03/10/2016 8:42 AM CDT Type 1 diabetes mellitus without complication (HCC) documented in this encounter Results * (ABNORMAL) HEMOGLOBIN A1C - POCT (IP) ALEXANDRA (03/10/2016 8:42 AM CDT) Hemoglobin A1c POCT 9.2(A) 3.4 - 6.1 % [facility] POCT TEST[facility] QC Verified Yes Yes [facility] PO CT TESTING Blood specimen (specimen) BLOOD SPECIMEN / Unknown 03/10/2016 8:42 AM CDT Kory [facility] LAB - POINT OF CARE ORDERABLES Performing Organization Address City/State/[facility] Co de Phone Number [facility] [address] [phone] documented in this encounter Visit Diagnoses Diagnosis Type 1 diabetes mellitus without complication (HCC) Type I (juvenile type) diabetes mellitus without mention of complication, not stated as uncontrolled * Assessment & Plan Note - Kory Lopez APRN-CNP - 03/10/2016 3:06 PM CDT Associated Problem(s): Type 1 diabetes mellitus without complication (HCC) 1) increase lantus to 7.5 units 2) increase Humalog to 0.5/15 3) supervise as much as possible 4) call in blood sugars on Thursday 5) return in 3 months for Devon, [address] Olivas documented in this encounter Care Teams Specification Consultant Relationship Specialty Start Date End Date Alvarez Prabhakar MD [address] [place] [phone] PCP - General 12/12/11 documented as of this encounter
--- OUTSIDE RECORDS SUMMARY | 2024-11-22 05:20 | XMS_ITS | Encounter Summary ---
Author Organization [facility] Address [address] [facility] [place] [address] Care Team Providers Care Patient Office Rep Name Role Phone Alvarez Prabhakar MD Primary Care Provider [phone] Encounter Details Date Type Department Care Team (Late st Contact Info) Description 03/10/2016 Orders Only [facility] [address] [place] [address] Kory Lopez APRN-SHANK CUTTER [address] [place] [id number] Type 1 diabetes mellitus without complication (HCC) [...] A1c POCT 9.2(A) 3.4 - 6.1 % [facility] POCT TESTING QC Verified Yes Yes [facility] PO CT TESTING Blood specimen (specimen) BLOOD SPECIMEN / Unknown 03/10/2016 8:42 AM CDT Kory Lopez ROLLER STRUCTURAL MILL-SHANK CUTTER LAB - POINT OF CARE ORDERABLES Performing Organization Address City/State/[facility] Co de Phone Number [facility] POCT TESTING [address] [phone] documented in this encounter Visit Diagnoses Diagnosis Type 1 diabetes mellitus without complication (HCC)- Primary Type I (juvenile type) diabetes mellitus without mention of complication, not stated as uncontrolled documented in this encounter Care Teams Patient Office Rep Relationship Specialty Start Date End Date Alvarez Prabhakar MD [address] [place] [address] PCP - General 12/12/11 documented as of this encounter
--- OUTSIDE RECORDS SUMMARY | 2024-11-22 05:20 | XMS_ITS | Encounter Summary ---
Author Organization [facility] Address [address] [place] [address] Care Team Providers Care Biomedical Instrument Technician Name Role Phone Alvarez Prabhakar MD Primary Care Provider [phone] Reason for Visit * Reason Onset Date Comments MEDICATION REFILL 03/19/2015 Encounter Details Date Type Department Care Team (Late st Contact Info) Description 03/19/2015 Refill [facility] Pediatrics - Diabetes [place] [address] [place] [address] Breana Olivas MD MEDICATION REFILL Social History [...] on filedocumented in this encounter Care Teams Biomedical Instrument Technician Relationship Specialty Start Date End Date Alvarez Prabhakar MD [address] [place] [address] PCP - General 12/12/11 documented as of this encounter
--- OUTSIDE RECORDS SUMMARY | 2024-11-22 05:20 | XMS_ITS | Encounter Summary ---
Author Organization [facility] Address [address] [facility] [place] [address] Care Team Providers Care Sizer Machine Name Role Phone Alvarez Prabhakar MD Primary Care Provider [phone] Reason for Visit * Reason Onset Date Comments MEDICATION REFILL 12/25/2016 Encounter Details Date Type Department Care Team (Late st Contact Info) Description 12/25/2016 Telephone [facility] Pediatrics - Diabetes [place] [place] [address] Kory Lopez APRN-EDGE STAINER [place] [phone] MEDICATION REFILL Social History Tobacco Use Types [...] (HCC) documented in this encounter Care Teams Sizer Machine Relationship Specialty Start Date End Date Alvarez Prabhakar MD [address] [place] [address] PCP - General 12/12/11 documented as of this encounter
--- OUTSIDE RECORDS SUMMARY | 2024-11-22 05:20 | XMS_ITS | Encounter Summary ---
Author Organization [facility] Address [address] [place] [address] Care Team Providers Care Certified Peer Specialist Name Role Phone Alvarez Prabhakar MD Primary Care Provider [phone] Reason for Visit * Reason Onset Date Comments MEDICATION REFILL 05/19/2019 Encounter Details Date Type Department Care Team (Late st Contact Info) Description 05/19/2019 Refill [facility] Pediatrics - Diabetes [facility] [address] [place] [address] Kory Lopez APRN-INSULATION HELPER [address] [place] [phone] MEDICATION REFILL Social History Tobacco Use Types [...] uncontrolled documented in this encounter Care Teams Certified Peer Specialist Relationship Specialty Start Date End Date Alvarez Prabhakar MD [address] [place] [phone] PCP - General 12/12/11 documented as of this encounter
--- OUTSIDE RECORDS SUMMARY | 2024-11-22 05:20 | XMS_ITS | Encounter Summary ---
Author Organization [facility] Address [address] [facility] [place] [address] Care Team Providers Care Refrigerator Crater Name Role Phone Alvarez Prabhakar MD Primary Care Provider [phone] Encounter Details Date Type Department Care Team (Late st Contact Info) Description 10/23/2018 Orders Only [facility] Pediatrics - Endocrinology [address] [place] [address] Breana Olivas MD Type 1 [...] (ABNORMAL) HEMOGLOBIN A1C - POCT (IP) ALEXANDRA (10/25/2018 8:41 AM LUTE PACKER OR APPLIER) Hemoglobin A1c POCT 9.0(A) 3.4 - 6.1 % [facility] POCT TESTING QC Verified Yes Yes [facility] PO CT TESTING Blood BLOOD SPECIMEN / Unknown 10/25/2018 8:41 AM LUTE PACKER OR APPLIER Breana Olivas MD LAB - POINT OF CARE ORDERABLES [facility] POCT TESTING [address] [place], [place] [id number] [place] [address] documented in this encounter Visit Diagnoses Diagnosis Type 1 diabetes mellitus without complication (HCC)- Primary Type I (juvenile type) diabetes mellitus without mention of complication, not stated as uncontrolled documented in this encounter Care Teams Refrigerator Crater Relationship Specialty Start Date End Date Alvarez Prabhakar MD [address] [place] [address] PCP - General 12/12/11 documented as of this encounter
--- OUTSIDE RECORDS SUMMARY | 2024-11-22 05:20 | XMS_ITS | Encounter Summary ---
Author Organization [facility] Address [address] [facility] [place] [address] Care Team Providers Care Animal Damage Control Agent Name Role Phone Alvarez Prabhakar MD Primary Care Provider [phone] Reason for Visit * Reason Onset Date Comments MEDICATION REFILL 09/20/2015 Encounter Details Date Type Department Care Team (Late st Contact Info) Description 09/20/2015 Refill [facility] Pediatrics - Diabetes [facility] [address] [place] [address] Kory Lopez APRN-WIRE SPLICER [address] [place] [phone] MEDICATION REFILL Social History Tobacco Use Types [...] uncontrolled documented in this encounter Care Teams Animal Damage Control Agent Relationship Specialty Start Date End Date Alvarez Prabhakar MD [address] [place] [phone] PCP - General 12/12/11 documented as of this encounter
--- OUTSIDE RECORDS SUMMARY | 2024-11-22 05:20 | XMS_ITS | Encounter Summary ---
Author Organization [facility] Address [address] [facility] [place] [address] Care Team Providers Care Regional Operations Manager Name Role Phone Alvarez Prabhakar MD Primary Care Provider [phone] Reason for Visit * Reason Onset Date Comments Blood Sugar Problem 06/21/2015 Encounter Details Date Type Department Care Team (Late st Contact Info) Description 06/21/2015 Telephone [facility] Pediatrics - Diabetes Mgmt [address] [place] [address] Kory Lopez APRN-CNP [address] [place] [phone] Blood Sugar Problem Social History Tobacco Use Types Packs/Day Years Used Date Smoking Tobacco: Never Assessed Sex and Gender Information Value Date Recorded Sex Assigned at Not on file Gender Identity Not on file Sexual Orientation Not on file documented as of this encounter Miscellaneous Notes * Telephone Encounter - Nesha Celaya APRN-CNP - 06/21/2015 1:24 PM CDT I called mother who confirmed that she would like a Dexcom system for Anaid. Mother reports thatEugeneia has had some bgs in the 50's. Will fax Dexcom rx. to [facility] [address] once signed. documented in this encounter Plan of Treatment Not on file documented as of this encounter Visit Diagnoses Not on filedocumented in this encounter Care Teams Regional Operations Manager Relationship Specialty Start Date End Date Alvarez Prabhakar MD [address] [place] [phone] PCP - General 12/12/11 documented as of this encounter
--- OUTSIDE RECORDS SUMMARY | 2024-11-22 05:20 | XMS_ITS | Encounter Summary ---
Author Organization [facility] Address [address] [facility] [address] Care Team Providers Care Trade Clerk Name Role Phone Alvarez Prabhakar MD Primary Care Provider [phone] Reason for Visit * Reason Onset Date Comments MEDICATION REFILL 02/23/2017 Encounter Details Date Type Department Care Team (Late st Contact Info) Description 02/23/2017 Refill [facility] Pediatrics - Diabetes [address] [address] Breana Olivas MD MEDICATION REFILL Social History [...] documented as of this encounter Care Teams Trade Clerk Relationship Specialty Start Date End Date Alvarez Prabhakar MD [address] [place] [address] PCP - General 12/12/11 documented as of this encounter
--- OUTSIDE RECORDS SUMMARY | 2024-11-22 05:20 | XMS_ITS | Encounter Summary ---
Author Organization [facility] Address [address] [facility] [place] [address] Care Team Providers Care Customer Care Assistant Name Role Phone Alvarez Prabhakar MD Primary Care Provider [phone] Reason for Visit * Reason Onset Date Comments HIGH BLOOD SUGAR 03/28/2016 Encounter Details Date Type Department Care Team (Late st Contact Info) Description 03/28/2016 Telephone [facility] Pediatrics - Diabetes Mgmt [address] [place] [address] Kory Lopez APRN-PROPOSITION PLAYER [address] [place] [phone] HIGH BLOOD SUGAR Social History Tobacco Use Types Packs/Day Years [...] Telephone Encounter - Lyric Ardon RN - 03/28/2016 12:50 PM CDT Received call from school nurse that Beverlys blood sugar before lunch at 1155 was 475 with traceketones. School nurse has Anaid a total of 5 units of Humalog with correction dose included in this amount. Anaid is drinking water. No further orders givens. I let school nurse know to call back if ketones are moderate to large. documented in this encounter Plan of Treatment Not on file documented as of this encounter Visit Diagnoses Not on filedocumented in this encounter Care Teams Customer Care Assistant Relationship Specialty Start Date End Date Alvarez Prabhakar MD [address] [place] [address] PCP - General 12/12/11 documented as of this encounter
--- OUTSIDE RECORDS SUMMARY | 2024-11-22 05:20 | XMS_ITS | Encounter Summary ---
Author Organization [facility] Address [address] [place] [address] Care Team Providers Care Executive Administrative Asst Name Role Phone Alvarez Prabhakar MD Primary Care Provider [phone] Reason for Visit * Reason Onset Date Comments Diabetes 10/14/2018 Encounter Details Date Type Department Care Team (Late st Contact Info) Description 10/14/2018 Telephone [facility] Pediatrics - Endocrinology [address] [place] [address]. [place] [address] Jesus Jacques MD [address] [place] [id number] Diabetes Social History Tobacco Use Types Packs/Day Years Used Date Smoking Tobacco: Never Alcohol Use Standard Drinks/Week Comments Not Asked 0 (1 standard drink = 0.6 oz pur e alcohol) Sex and Gender Information Value Date Recorded Sex Assigned at Not on file Gender Identity Not on file Sexual Orientation Not on file documented as of this encounter Miscellaneous Notes * Telephone Encounter - Jesus Jacques MD - 10/14/2018 8:32 AM CST Called by mother through the Exchange. Family travelling, BG was 400 last night, treated with waterand exercise, BG 285 moderate ketones, nausea, has not vomited. Family in [place], [place], and they brought no insulin. I called Rx for Lantus 1 vial and Novolog 1 vial to [facility] [phone], advised Mother to get it filled immediately, give 8 units Novolog and 20 units Lantus, give correction doses every 2-3 hours but add 5 units to her usual /50 over 150 if mod-lg ketones. I called back, and Mother said she was vomiting, so we agreed that she needed to go to the nearest ER. STICAL TILE PATTERNMAKER documented in this encounter Plan of Treatment Not on file documented as of this encounter Visit Diagnoses Not on filedocumented in this encounter Care Teams Executive Administrative Asst Relationship Specialty Start Date End Date Alvarez Prabhakar MD [address] [place] [address] PCP - General 12/12/11 documented as of this encounter
--- OUTSIDE RECORDS SUMMARY | 2024-11-22 05:20 | XMS_ITS | Encounter Summary ---
Author Organization [facility] Address [address] [place] [address] Care Team Providers Care Security System Installer Name Role Phone Alvarez Prabhakar MD Primary Care Provider [phone] Encounter Details Date Type Department Care Team (Late st Contact Info) Description 09/04/2015 8:00 AM CDT - 09/04/2015 11:59 PM CDT Hospital Encounter [facility] Pediatrics - Diabetes Mgmt [address] [place] [address] Kory Lopez APRN-DUST BOX WORKER [address] [place] [id number] Discharge Disposition: Home or Self Care Social [...] Sign Reading Time Taken Comments Blood Pressure 100/58 09/04/2015 8:30 AM CDT Pulse - - Temperature - - Respiratory Rate - - Oxygen Saturation - - Inhaled Oxygen Concentration - - Weight 29.3 kg (64 lb 9.5 oz) 09/04/2015 8:30 AM CDT Height 140.1 cm (4' 7.16 ) 09/04/2015 8:30 AM CD T Body Mass Index 14.93 09/04/2015 8:30 AM CDT Body Mass Index Percentile 10.64% 09/04/2015 8:3 0 AM CDT Growth Chart: [facility] (Girls, 2- 20 Years) documented in this encounter Discharge Instructions * Patient Instructions* Kory Lopez APRN-CNP - 09/04/2015 8:49 AM CDT 1) NO changes at this time 2) keep up the good work 3) fax pump tests when ready to start pump therapy 4) return in nov for Dr. Olivas documented in this encounter Medications at Time of Discharge Medication Sig Dispensed Refills Start Date End Date Blood Glucose Monitoring Suppl (ACCU-CHEK DRAKE SMARTVIEW) W/DEVICE KIT kitIndications:Diabe olesya mellitus type 1 (HCC) Use for blood glucose monitoring. 1 Kit 0 08/18/2012 ACCU-CHEK FASTCLIX LANCETS Use for blood glucose monitoring 4-6 times/day. 200 Each 11 07/10/2015 08/04/2016 acetone,urine, (KETOSTIX) strip Use as needed (use [...] for injections 1-2 times daily. 100 Each 06/20/2014 04/17/2020 documented as of this encounter Progress Notes * Kory Lopez, LIFTER-DUST BOX WORKER - 09/04/2015 8:36 AM CDT Images from the original note were not included. Pediatric Diabetes Clinic Follow-Up Note [facility] Anaid Dimas and her mother were in our Pediatric Endocrinology clinic at [facility] on 09/04/2015. She is a 9 y.o. 10 m.o. who has: Problem Type 1 Diabetes Mellitus Diagnosed 08/17/2012 Anaid???s current treatment regimen is as follows: Insulin Brand/Type:humalog Delivery Device:luxura Insulin to Carbohydrate Ratios:0.5/20 Correction Dose:1 per 100 over 200 Lantus Dose:5 Injection Sites and Compliance:given by herself, mother, father, grandparents, in stomach, arms, and legs, before meals, after at schools Average Daily Total: 20 units Other Medications: none Interval History: Significant for no major issues. She has experienced no major issues related to diabetes management since our past visit. Diabetes Self-Management: Anaid checks her blood glucose 4-5 times per day using a drake meter.Per [...] blood glucose range is 80-150. Anaid experiences 3 lows per week that are sensed when the blood sugar is less than 70. Anaid feels the following symptoms when he/she is hypoglycemic: fatigue. Low blood sugars are treated with candy, juice 15 gram carb. This patient has glucagon and She does not wear her Medic-Alert tag. Anaid checks urine for ketones when glucose >250 and ill. Past Medical History: Social History: History Social History Narrative Social History: Anaid lives with mother. Goes to father's every other weekend. She is in the 5thgrade at [employer] and is achieving average grades, IEP. She [...] Cardiorespiratory: normal Gastrointestinal: normal Genitourinary: nocturnal enuresis getting worse, 4 nights per week, premenarchal Endocrine: no fatigue or temperature intolerance Psychiatric: Therapy once weekly, behavior continues to improve Neurologic: normal Musculoskeletal: some leg cramps at night Physical Examination: BP 100/58 mmHg Ht 1.401 m (4' 7.16 ) Wt 29.3 kg (64 lb 9.5 oz) BMI 14.93 kg/m2 Height: 140.1 cm (4' 7.16 ) General: alert and oriented; well-appearing Eyes: [...] normal gait Laboratory Data: Hospital Encounter on 09/04/15 HEMOGLOBIN A1C - POCT (IP) BEAKER Result Value Ref Range Hgb A1C POCT 7.8 (Abnormal) 3.4 - 6.1 % QC Verified Yes Yes 14-Day Blood Glucose Statistics: Pre-Breakfast Pre-Lunch Pre-Dinner Bedtime Other Low 121 134 107 29 High 301 215 357 320 ~Average~ 180 175 200 190 Assessment and Management Plan: Diabetes control continues to improve as does her behavior. No changes today due to lack of solid patterns in BG results. I have no concerns. Type 1 diabetes mellitus 1) NO changes at this time 2) keep up the good work 3) fax pump tests when ready to start pump therapy 4) return in nov for Dr. Olivas Of the 45 minutes spent with Anaid, 35 minutes were spent discussing HgbA1c, hypoglycemia, ketosis, exercise, glucagon, sick days, control and complications, blood glucose monitoring and parental supervision ABIDA Clarke CC: Alvarez Prabhakar MD [address] [place] [address] [place] [address] Date: 09/04/2015 8:36 AM documented in this encounter Plan of Treatment Not on file documented as of this encounter Procedures Procedure Name Priority Date/Time Associated Diagnosis Comments HEMOGLOBIN A1C - POCT (IP) BEAKER Routine 09/04/2015 8:36 AM CDT Type 1 diabetes mellitus without complication (HCC) documented in this encounter Results * (ABNORMAL) HEMOGLOBIN A1C - POCT (IP) BEAKER (09/04/2015 8:36 AM CDT) Hemoglobin A1c POCT 7.8(A) 3.4 - 6.1 % [facility] POCT TESTING QC Verified Yes Yes [facility] PO CT TESTING Blood specimen (specimen) BLOOD SPECIMEN / Unknown 09/04/2015 8:36 AM CDT [facility] - POINT OF CARE ORDERABLES [facility] POCT TESTING [address] [place] [id number] [phone] documented in this encounter Visit Diagnoses Diagnosis Type 1 diabetes mellitus without complication (HCC) Type I (juvenile type) diabetes mellitus without mention of complication, not stated as uncontrolled * Assessment & Plan Note - Kory Lopez APRN-CNP - 09/05/2015 8:12 AM CDT Associated Problem(s): Type 1 diabetes mellitus without complication (HCC) 1) NO changes at this time 2) keep up the good work 3) fax pump tests when ready to start pump therapy 4) return in nov for Dr. Olivas documented in this encounter Care Teams Security System Installer Relationship Specialty Start Date End Date Alvarez Prabhakar MD [address] [place] [address] PCP - General 12/12/11 documented as of this encounter
--- OUTSIDE RECORDS SUMMARY | 2024-11-22 05:20 | XMS_ITS | Encounter Summary ---
Author Organization [facility] Address [address] [place] [address] Care Team Providers Care Internet Sourcer Name Role Phone Alvarez Prabhakar MD Primary Care Provider [phone] Reason for Visit * Reason Onset Date Comments MEDICATION REFILL 01/07/2018 Encounter Details Date Type Department Care Team (Late st Contact Info) Description 01/07/2018 Refill [facility] Pediatrics - Diabetes [id number] [place] [address] Breana Olivas MD MEDICATION REFILL Social History [...] filedocumented in this encounter Care Teams Internet Sourcer Relationship Specialty Start Date End Date Alvarez Prabhakar MD [address] [place] [id number] PCP - General 12/12/11 documented as of this encounter
--- OUTSIDE RECORDS SUMMARY | 2024-11-22 05:20 | XMS_ITS | Encounter Summary ---
Author Organization [facility] Address [address] [place] [address] Care Team Providers Care Shuttle Inspector Name Role Phone Alvarez Prabhakar MD Primary Care Provider [phone] Encounter Details Date Type Department Care Team (Late st Contact Info) Description 10/10/2019 Orders Only [facility] Pediatrics - Endocrinology [address] [place] [address] Breana Olivas MD Type 1 [...] uncontrolled documented in this encounter Care Teams Shuttle Inspector Relationship Specialty Start Date End Date Alvarez Prabhakar MD [address] [place] [address] PCP - General 12/12/11 documented as of this encounter
--- OUTSIDE RECORDS SUMMARY | 2024-11-22 05:20 | XMS_ITS | Encounter Summary ---
Author Organization [facility] Address [address] [place] [address] Care Team Providers Care Low Voltage Technician Name Role Phone Alvarez Prabhakar MD Primary Care Provider Reason for Visit * Reason Onset Date Comments Letter for School or Work 07/07/2018 Encounter Details Date Type Department Care Team (Late st Contact Info) Description 07/07/2018 Telephone [facility] Pediatrics - Diabetes [address] [address] Breana Olivas MD Letter for School or Work Social History Tobacco Use Types Packs/Day Years Used Date Smoking Tobacco: Never Alcohol Use Standard Drinks/Week Comments Not Asked 0 (1 standard drink = 0.6 oz pur e alcohol) Sex and Gender Information Value Date Recorded Sex Assigned at Not on file Gender Identity Not on file Sexual Orientation Not on file documented as of this encounter Miscellaneous Notes * Telephone Encounter - Gracie Cee RN - 11/05/2018 1:43 PM HUMIDIFIER MAINTENANCE WORKER Called mother to review bgs.. Was placed on hold and mother never returned to call after 5 minutes.Ended call. Attempted to call again. No answer, no voicemail. DIFIER MAINTENANCE WORKER documented in this encounter Plan of Treatment Not on file documented as of this encounter Visit Diagnoses Not on filedocumented in this encounter Care Teams Low Voltage Technician Relationship Specialty Start Date End Date Alvarez Prabhakar MD [address] [place] [address] PCP - General 12/12/11 documented as of this encounter
--- OUTSIDE RECORDS SUMMARY | 2024-11-22 05:20 | XMS_ITS | Encounter Summary ---
Author Organization [facility] Address [address] [place] [address] Care Team Providers Care Mortar Mixer Operator Name Role Phone Alvarez Prabhakar MD Primary Care Provider [phone] Reason for Visit * Reason Comments Diabetes Encounter Details Date Type Department Care Team (Latest Contact Info) Description 04/12/2018 11:05 AM CDT - 04/12/2018 11:59 PM CDT Hospital Encounter [facility] Pediatrics - Diabetes Mgmt [facility] [place] [address] Breana Olivas MD Discharge Disposition: Home or [...] Sign Reading Time Taken Comments Blood Pressure 102/70 04/12/2018 11:22 AM CDT Pulse - - Temperature - - Respiratory Rate - - Oxygen Saturation - - Inhaled Oxygen Concentration - - Weight 49 kg (108 lb 0.4 oz) 04/12/2018 11:22 AM CDT Height 157.4 cm (5' 1.97 ) 04/12/2018 11:22 AM C DT Body Mass Index 19.78 04/12/2018 11:22 AM CDT Body Mass Index Percentile 59.84% 04/12/2018 11: 22 AM CDT Growth Chart: [facility] (Girls, 2- 20 Years) documented in this encounter Discharge Instructions * Patient Instructions* Breana Olivas MD - 04/12/2018 12:10 PM CDT New doses: Lantus 20 Units at bedtime. NovoLog 1 Unit per 16 grams with meals and snacks. Same correction of 1 Unit per 50 over 150, maximum of 6 Units. Avoid giving injections in left arm and any knotty areas in left leg. Adult must supervise injections, especially Lantus. Treat low blood sugar with 15 grams of fast acting carbohydrate (4 oz. of juice or regular soda or 4 glucose tablets). Always wear Medic Alert ID documented in this encounter Medications at Time [...] 200 Each 11 08/04/2016 05/22/2023 acetone,urine, (KETOSTIX) stripIndications:Typ e 1 diabetes mellitus without complication (HCC) Use as needed (use when blood sugar is greater than 250 or when ill. ) 100 Strip 11 04/21/2017 04/15/2022 blood glucose (ACCU-CHEK SMARTVIEW) test stripIndications:Typ e 1 diabetes mellitus without complication, with long-term current use of insulin (HCC) Use for blood glucose monitoring 4-6 times/day. 200 strip 11 11/02/2017 11/05/2018 glucagon (GLUCAGON EMERGENCY) injectionIndications :Type 1 diabetes mellitus without complication (HCC) Inject 1 mg into muscle as directed for severe low blood sugar reaction. 2 Kit 07/14/2017 07/11/2019 insulin aspart (NOVOLOG FLEXPEN) penIndications:Type 1 diabetes mellitus without complication (HCC) 1 unit per 16 grams of carbohydrate with meals and snacks. 15 mL 5 04/12/2018 05/19/2019 insulin aspart (NOVOLOG PENFILL) cartridgeIndications :Type 1 diabetes mellitus without complication (HCC) Inject 1 unit per 18-20 grams of carbohydrates or as directed. . Max daily dose 40 units. 1 Box 5 04/12/2018 01/13/2019 insulin glargine (LANTUS) vialIndications:Type 1 diabetes mellitus without complication (HCC) Inject 17 Units subcutaneously at bedtime 10 mL 5 09/14/2017 10/14/2019 insulin lispro (HUMALOG) 100 UNIT/ML cartridgeIndications :Type 1 diabetes mellitus without complication, with long-term current use of insulin (HCC) Inject 1 unit for every 18-20 grams carbohydrate or as directed. 15 mL 5 12/25/2016 01/12/2020 Insulin Pen Needle (BD PEN NEEDLE DRAKE U/F) 32G X 4 MM MISC Use 4-6 Each as directed Use for injections 4-6 times daily. 200 Each 11 04/21/2017 05/24/2018 insulin syringe-needle (B-D INS SYR HALF-UNIT .3CC/31G) 31G X 5/16 0.3 ML syringeIndications:D iabetes mellitus type 1 (HCC) Use for injections 1-2 times daily. 100 Each 11 06/20/2014 04/17/2020 Insulin Syringe-Needle U-100 (BD INSULIN SYRINGE ULTRAFINE) 31G X 15/64 0.3 ML syringe Use for injection daily. 100 Syringe 11 02/23/2017 04/13/2018 documented as of this encounter Progress Notes * Breana Olivas MD - 04/12/2018 11:59 PM CDT Images from the original note were not included. Anaid Dimas and her mother were seen in our Pediatric Endocrinology offices on 04/12/18. She is a 12 y.o. 6 m.o. girl who is followed for type 1 diabetes diagnosed in 08/04. Interval History: Generally healthy since last seen in 07/09. Very overdue for follow up, typically every 3-4 months. No severe hypoglycemia; occasional ketonuria. Diabetes Therapies: Lantus 18 Units at 21:00; NovoLog 1 Unit: 18 grams, correction 1 Unit: 50/150. Injections given by Anaid and her caretakers in her extremities and abdomen. Our nurse, Nesha Celaya, reports that she probably misses one Lantus injection weekly when she falls asleep early as well as about two NovoLog injections daily. Total reported daily insulin dose ~51 Units. Current Prescriptions: ??? insulin glargine (LANTUS) vial Inject 17 Units subcutaneously at bedtime ??? insulin lispro (HUMALOG) 100 UNIT/ML cartridge Inject 1 unit for every 18-20 grams carbohydrateor as directed. ??? insulin aspart (NOVOLOG PENFILL) cartridge Inject 1 unit per 18-20 grams of carbohydrates or asdirected. . Max daily dose 40 units. ??? acetone,urine, (KETOSTIX) strip Use as directed for urine ketone checks if blood sugar above 250 or if ill. Dispense one bottle for school and one for home. ??? insulin aspart (NOVOLOG FLEXPEN) pen 1 unit per 16 grams of carbohydrate with meals and snacks. ??? blood glucose (ACCU-CHEK SMARTVIEW) test strip Use for blood glucose monitoring 4-6 times/day. ??? glucagon (GLUCAGON EMERGENCY) injection Inject 1 mg into muscle as directed for severe low blood sugar reaction. ??? acetone,urine, (KETOSTIX) strip Use as needed (use when blood sugar is greater than 250 or whenill. ) ??? Insulin Pen Needle (BD PEN NEEDLE DRAKE U/F) 32G X 4 MM MISC Use 4-6 Each as directed Use for injections 4-6 times daily. ??? Insulin Syringe-Needle U-100 (BD INSULIN SYRINGE ULTRAFINE) 31G X 15/64 0.3 ML syringe Use forinjection daily. ??? ACCU-CHEK FASTCLIX LANCETS Use for blood glucose monitoring 4-6 times/day. ??? insulin syringe-needle (B-D INS SYR HALF-UNIT .3CC/31G) 31G X 5/16 0.3 ML syringe Use for injections 1-2 times daily. ??? Blood Glucose Monitoring Suppl (ACCU-CHEK DRAKE SMARTVIEW) W/DEVICE KIT kit Use for blood glucose monitoring. No Known Allergies Meal Plan: Anaid Dimas/her parent(s) report the child is on a carb- counting meal plan, not always counting when in relatives' care. Anaid Dimas last saw our furniture removalist's assistant last June. Sports/Physical Exercise: Soccer, P.E. class daily Blood Glucose Monitoring: Anaid Soni glucose monitoring is done 4-6 x daily using an Accu-Chek Drake with a target range of 80-150. Nurse's notes and home glucometer available for examination (I was not sure if the times on the meter were correct and it was rest after the download): Breakfast Lunch Dinner Bedtime Overnight Other (before afternoon snack at school) Range No testing [phone] Low/in range/high Comments Most >200 Per ADA guidelines, people with type 1 diabetes on multiple-dose insulin or insulin pump therapy should perform SMBG prior to meals and snacks, occasionally post-prandial, at bedtime, prior to exercise, when they suspect low blood glucose, after treating low blood glucose until they are normoglycemic, and prior to critical tasks such as driving. Hypoglycemia: Frequency/Treatment: 0-1 times per week. Anaid feels hypoglycemic when her BS is <70, characterized by shaking, fatigue, sweating, and hunger. Treatment is adequate and injectableglucagon is available. Urine Ketone Monitoring: Yes, when glucose >250 and ill. Review of Systems: General: good energy and appetite, sleeps poorly Skin: negative Eyes: normal vision, last eye exam in 01/10 ENT: no regular tooth brushing, sees dentist Respiratory: negative GI: normal BM 's : nocturia 3-4 x nightly Neurologic: no h/o seizure(s) Psychiatric: negative, MSQ-9 depression score 7 Endocrine: menarche last June with regular menses All other systems reviewed and were negative. Past Medical History: I have reviewed the patient's medical, surgical, social and family history and there are no changes. Quite variable grades in 7th grade at [employer]. Grandmother often has her during the week; father and maternal grandfather alternate weekends. Physical Examination: BP 102/70 Ht 1.574 m (5' 1.97 ) Wt 49 kg (108 lb 0.4 oz) LMP 03/22/2018 BMI 19.78 kg/m2 55 %ile (Z= 0.14) based on CDC 2-20 Years gncdur-ngf-ycp data using vitals from 04/12/2018. 40 %ile (Z= -0.25) based on CDC 2-20 Years glsbbey-gim-sst data using vitals from 04/12/2018. Body mass indexis 19.78 kg/(m^2). 60 %ile (Z= 0.25) based on CDC 2-20 Years BMI-for-age data using vitals from 04/12/2018. General: Well-appearing, WDWN, pleasant teen. Skin/Hair/Nails: Warm and dry. Marked insulin lipohypertrophy on both arms, L>R, with some on both anterior thighs. No observable rashes. Eyes: Sclerae clear, PERRLA, EOMs intact; no abnormal fundoscopic findings. Dentition: Good hygiene. 28 permanent teeth. Neck: Supple. Thyroid not enlarged. Chest: Symmetric. Lungs clear to auscultation, unlabored breathing. CV system unremarkable with regular heart rate and rhythm, normal S1/S2, no murmurs, rubs, or gallops. Abdomen: Soft, non-tender, without organ enlargement or masses. Pubertal maturation: Miquel 4. Extremities: No cyanosis or edema. Neurologic system: Non-focal. DTRs 2+ and equal. ID Tag Status: Sometimes wears bracelet or necklace Laboratory Data: Hospital Encounter on 04/12/18 MICROALB/CREAT RATIO URINE RANDOM PANEL Result Value Ref Range Creatinine Urine 27.48 mg/dL Microalbumin Ur mg/dL <0.5 <1.7 mg/dL Microalb/Creat Ratio <18 <30 mg/g TSH Result Value Ref Range TSH 0.43 0.35 - 4.95 uIU/mL HEMOGLOBIN A1C - POCT (IP) BEAKER Result Value Ref Range Hemoglobin A1c POCT 10.8 (Abnormal) 3.4 - 6.1 % QC Verified Yes Yes Assessment: Type 1 diabetes of 5 years' duration under poor control; today's HbA1C is her highest ever. Four adult are responsible for her care; her father has reportedly been trained by us but not the maternal grandparents (the grandmother is a nurse). No known diabetes complications or autoimmune co-morbidities. Normal interval growth and weight gain. Regular menses. Management Plan: Always test fasting blood sugars. Suggested changes in insulin doses: 1. Lantus 20 Units at bedtime. 2. NovoLog 1 Unit per 16 grams with meals and snacks. Same correction of 1 Unit per 50 over 150, maximum of 6 Units. Lantus worksheet was filled out with the new doses with copies for each adult machine stamper. Injection site rotation reviewed. Consultation done with KILLIAN Barrera, who recommended: Avoid giving injections in left arm and any knotty areas in left leg. Adult must supervise injections, especially Lantus. Treat low blood sugar with 15 grams of fast acting carbohydrate (4 oz. of juice or regular soda or 4 glucose tablets). Always wear Medic Alert ID Return visit in 3 months. Breana Olivas MD [phone] CC: Alvarez Prabhakar MD [address] [place] [address] [address] [place] [address] Date: 04/13/2018 11:56 AM * Nesha Celaya APRN-BULLET MAKER - 04/12/2018 11:28 AM CDT Anaid Dimas and her mother were in our Pediatric Endocrinology clinic at [facility] on 04/12/2018. She is a 12 y.o. 6 m.o. who has had Type 1 Diabetes Mellitus since 07/2012. Interval History: has been healthy overall, ketosis with moderate ketones a few times at school Diabetes Therapies: NovoLog/Humalog Insulin to carbohydrate ratio(s): Breakfast: 1 units per 18 grams carbohydrate Approximate units given at breakfast: 8 Lunch: 1 units per 18 grams carbohydrate Approximate units given at lunch: 8 Dinner: 1 units per 18 grams carbohydrate Approximate units given at dinner: 12 Snacks: 1 units per 18 grams carbohydrate Approximate units given for snacks: 5 Correction dose: 1 extra unit for every 50 points that pre-meal blood glucose is over 150 Is pen or vial used? Has both Humalog Kwikpen and NovoPen Echo Lantus Dose: 18 Given at: 8-10 pm Is pen or vial used? vial Total Daily Dose of Insulin: ~51 Injections are given by: self, mother, school nurse Injection sites: abdomen, arms, legs Are injections ever missed? Lantus ~ once a week; Humalog ~ twice a day Blood Glucose Monitoring: Meter used: Accuchek Drake Frequency of blood glucose checks: 4 times a day Blood glucose checks done by: self Logbook available: NO Meter downloaded: YES Target blood glucose range: 80-150 Meal Plan: Anaid Dimas/her parent(s) report the child is on a carb-counting meal plan. Are carbohydrates counted carefully? Usually when with mother counts; doesn't always count when at grandparents Who counts carbohydrates? Self and mother Hypoglycemia: Anaid experiences ~ 0-1 lows per week that are sensed when the blood sugar is in 60's. Anaid feels the following symptoms when he/she is hypoglycemic: shaking, fatigue, sweating and hunger. Lowblood sugars are treated with 15 gm CHO snack or glucose tabs. Treatment is adequate. This patient has glucagon. Urine Ketone Testing: Anaid checks urine for ketones when glucose >250 or ill. Sports/Physical Exercise: PE only currently 5 days a week for 1 hour; also plays soccer Medic-Alert tag: Has bracelet and necklace, but doesn't always wear Social History: Anaid lives with mother. She is in the 7th grade at [employer] and is achieving passing grades (A's, B's, C's, D's). Her mother is employed and works 6 am-9 pm. Anaid spendsweekends and some evenings at grandparents. Mother says that she has talked to grandparents about the importance of supervision with diabetes care. Hgb A1C 10.8% Laboratory Data: Recent Labs Component Name 07/14/17 1027 12/25/16 1343 09/09/16 0911 HGBA1C 9.6* 9.4* 9.8* No results for input(s): TSH in the last 47361 hours. Recent Labs Component Name 09/09/16 0909 MICROALBCREA <39* Recent Labs Component Name 09/09/16 0910 CHOL 180* TRIG 255 HDL 65 LDLCALC 64 Complications: none Patient/family's concerns/questions: none Education topics discussed HgbA1c, hypoglycemia, ketosis, glucagon, parental supervision and targetblood glucose range, CGM Patient Goals/Instructions: Avoid giving injections in left arm and any knotty areas in left leg. Adult must supervise injections, especially Lantus. Treat low blood sugar with 15 grams of fast acting carbohydrate (4 oz. of juice or regular soda or 4 glucose tablets). Always wear Medic Alert ID documented in this encounter Plan of Treatment Not on file documented as of this encounter Procedures Procedure Name Priority Date/Time Associated Diagnosis Comments MICROALB/CREAT RATIO URINE RANDOM PANEL Routine 04/12/2018 11:31 AM CDT Type 1 diabetes mellitus without complication (HCC) HEMOGLOBIN A1C - POCT (IP) BEAKER Routine 04/12/2018 11:29 AM CDT Type 1 diabetes mellitus without complication (HCC) TSH Routine 04/12/2018 11:25 AM CDT Type 1 diabetes mellitus without complication (HCC) TISSUE TRANSGLUTAMINASE AB IGA Routine 04/12/2018 11:24 AM CDT Type 1 diabetes mellitus without complication (HCC) documented in this encounter Results * MICROALB/CREAT RATIO URINE RANDOM PANEL (04/12/2018 11:31 AM CDT) Creatinine Urine 27.48 mg/dL 04/12/20 18 12:11 PM CDT [facility] Microalbumin Urine <0.5 <1.7 mg/dL 04/12/2018 12:11 PM CDT [facility] Microalbumin/Crea tinine Ratio <18 <30 mg/g 04/12/2018 12:11 PM T [facility] Urine URINE SPECIMEN OBTAINED BY CLEAN CATCH PROCEDURE / Unknown Collection / Unknown 04/12/2018 11:31 AM CDT 04/12/2018 11:38 AM CDT Breana Olivas MD LAB - URINE CHEMISTR Y ORDERABLES [facility] [address] [place] [address] * (ABNORMAL) HEMOGLOBIN A1C - POCT (IP) BEAKER (04/12/2018 11:29 AM CDT) [facility] Hemoglobin A1c POCT 10.8(A) 3.4 - 6.1 % [facility] QC Verified Yes Yes [facility] PO CT TESTING Blood BLOOD SPECIMEN / Unknown 04/12/2018 11:29 AM CDT Breana Olivas MD LAB - POINT OF CARE ORDERABLES Performing Organization Address [facility] Co de Phone Number [facility] [address] [phone] * TSH (04/12/2018 11:25 AM CDT) [facility] TSH 0.43 0.35 - 4.95 uIU/mL 04/12/2018 12:32 PM CDT [facility] Blood BLOOD SPECIMEN / Unknown Venipuncture / Unknown 04/12/2018 11:25 AM CDT 04/12/2018 11:38 AM CDT Breana Olivas MD LAB - CHEMISTRY ORDE RABLES Performing Organization Address [facility] de Phone Number [facility] [address] [place] [address] * TISSUE TRANSGLUTAMINASE AB IGA (04/12/2018 11:24 AM CDT) [facility] TTG Antibody IgA <2 0 - 3 U/mL 04/13/2018 3:18 PM CDT [facility] ([facility]) Comment: ?Negative ?0 - ??3 ?Weak Positive ?? 4 - 10 ?Positive ? >10 Tissue Transglutaminase (tTG) has been identified as the endomysial antigen. ??Studies have demonstr- ated that endomysial IgA antibodies have over 99% specificity for gluten sensitive enteropathy. Blood BLOOD SPECIMEN / Unknown Venipuncture / Unknown 04/12/2018 11:24 AM CDT 04/12/2018 11:38 AM CDT Narrative [facility] ([facility]) - 04/13/2018 3:18 PM CDT Performed at: ??01 - [facility] [address] [place], [place] ??[id number] Diamond Merchant: Justo Johnson PhD, Phone: ??[phone] Breana Olivas MD LAB - SEROLOGY ORDER CHASIDY Performing Organization Address City/State/[facility] Co de Phone Number [facility] ([facility]) [address] [place] [address] documented in this encounter Visit Diagnoses Diagnosis Type 1 diabetes mellitus without complication (HCC) Type I (juvenile type) diabetes mellitus without mention of complication, not stated as uncontrolled documented in this encounter Care Teams Mortar Mixer Operator Relationship Specialty Start Date End Date Alvarez Prabhakar MD [address] [place] [address] PCP - General 12/12/11 documented as of this encounter
--- OUTSIDE RECORDS SUMMARY | 2024-11-22 05:20 | XMS_ITS | Encounter Summary ---
Author Organization [facility] Address [address] [place] [address] Care Team Providers Care Collator Name Role Phone Alvarez Prabhakar MD Primary Care Provider [phone] Reason for Visit * Reason Onset Date Comments Blood Sugar Problem 2017 Encounter Details Date Type Department Care Team (Late st Contact Info) Description 2017 Telephone [facility] Pediatrics - Endocrinology [facility] [place] [address] Breana Olivas MD Blood Sugar Problem Social History Tobacco Use [...] Telephone Encounter - Gracie Cee RN - 2017 12:57 PM LICENSED RETAIL SUPERVISOR Diabetes Sick Call Patient: Anaid Dimas Date: 2017 Current Blood Glucose: 421 Current Ketone result: large Last insulin given: Novolog: Dose: Time dinner Symptoms: none Recent Illness: none Plan: Give 7 units correction dose plus carb coverage now with syringe. Push sugar free fluid. Recheck blood glucose and urine ketones in two hours. Call for mod/large ketones or vomiting NSED RETAIL SUPERVISOR documented in this encounter Plan of Treatment Not on file documented as of this encounter Visit Diagnoses Not on filedocumented in this encounter Care Teams Collator Relationship Specialty Start Date End Date Alvarez Prabhakar MD [address] [place] [address] PCP - General 12/12/11 documented as of this encounter
--- OUTSIDE RECORDS SUMMARY | 2024-11-22 05:20 | XMS_ITS | Encounter Summary ---
Author Organization [facility] Address [address] [facility] [place] [address] Care Team Providers Care Educational/Development Assistant Name Role Phone Alvarez Prabhakar MD Primary Care Provider [phone] Reason for Visit * Reason Comments Refill Request Encounter Details Date Type Department Care Team (Late st Contact Info) Description 10/14/2019 Refill [facility] Pediatrics - Diabetes [address] [address] Breana Olivas MD Refill Request Social History [...] uncontrolled documented in this encounter Care Teams Educational/Development Assistant Relationship Specialty Start Date End Date Alvarez Prabhakar MD [address] [place] [id number] PCP - General 12/12/11 documented as of this encounter
--- OUTSIDE RECORDS SUMMARY | 2024-11-22 05:20 | XMS_ITS | Encounter Summary ---
Author Organization [facility] Address [address] [place] [address] Care Team Providers Care Receiving Coordinator Name Role Phone Alvarez Prabhakar MD Primary Care Provider [phone] Reason for Visit * Reason Onset Date Comments MEDICATION REFILL 10/13/2016 Encounter Details Date Type Department Care Team (Late st Contact Info) Description 10/13/2016 Refill [facility] - [facility] [address] [place] [address] Breana Olivas MD MEDICATION REFILL Social History [...] (HCC) documented in this encounter Care Teams Receiving Coordinator Relationship Specialty Start Date End Date Alvarez Prabhakar MD [address] [place] [phone] PCP - General 12/12/11 documented as of this encounter
--- OUTSIDE RECORDS SUMMARY | 2024-11-22 05:20 | XMS_ITS | Encounter Summary ---
Author Organization [facility] Address [address] [place] [address] Care Team Providers Care Research Mechanic Name Role Phone Alvarez Prabhakar MD Primary Care Provider [phone] Reason for Visit * Reason Comments Diabetes follow up Encounter Details Date Type Department Care Team (Latest Contact Info) Description 07/11/2019 8:33 AM CDT - 07/11/2019 11:59 PM CDT Hospital Encounter [facility] Pediatrics - Diabetes [id number] [place] [address] Breana Olivas MD Discharge Disposition: Home or [...] Sign Reading Time Taken Comments Blood Pressure 106/66 07/11/2019 8:49 AM CDT Pulse - - Temperature - - Respiratory Rate - - Oxygen Saturation - - Inhaled Oxygen Concentration - - Weight 55.6 kg (122 lb 9.2 oz) 07/11/2019 8:49 A M CDT Height 158.9 cm (5' 2.56 ) 07/11/2019 8:49 AM CD T Body Mass Index 22.02 07/11/2019 8:49 AM CDT Body Mass Index Percentile 74.03% 07/11/2019 8:4 9 AM CDT Growth Chart: [facility] (Girls, 2- 20 Years) documented in this encounter Discharge Instructions * Patient Instructions* Breana Olivas MD - 07/11/2019 9:58 AM CDT Change the meal/snack doses to 1 Unit: 14 grams. Increase the correction dose to 1 Unit per 40 over 140: BS 151-190 1 Unit BS 191-230 2 Units BS 231-270 3 Units BS 271-310 4 Units BS 311-350 5 Units BS >350 6 Units Mother to give Lantus 23 Units every morning before breakfast. Call our nurses in a week to review BS values. documented in this encounter Medications at Time [...] blood glucose monitoring. 1 Kit 0 08/18/2012 glucagon (GLUCAGON EMERGENCY) injectionIndications: Type 1 diabetes mellitus without complication (HCC) Inject 1 mg into muscle as directed for severe low blood sugar reaction. 2 kit 07/11/2019 injection device-insulin (NOVOPEN ECHO) deviceIndications:Typ e 1 diabetes mellitus without complication (HCC) Use for insulin delivery. 1 device 1 10/20/2018 ACCU-CHEK FASTCLIX LANCETS Use for blood glucose monitoring 4-6 times/day. 200 Each 11 08/04/2016 05/22/2023 acetone,urine, (KETOSTIX) stripIndications:Type 1 diabetes mellitus without complication (HCC) Use as needed (use when blood sugar is greater than 250 or when ill. ) 100 Strip 11 04/21/2017 04/15/2022 blood glucose (ACCU-CHEK SMARTVIEW) test stripIndications:Type 1 diabetes mellitus without complication, with long-term current use of insulin (HCC) Use for blood glucose monitoring 4-6 times/day. 200 strip 11 11/05/2018 12/15/2019 insulin aspart (NOVOLOG FLEXPEN) penIndications:Type 1 diabetes [...] 09/14/2017 10/14/2019 insulin lispro (HUMALOG) 100 UNIT/ML cartridgeIndications: Type 1 diabetes mellitus without complication, with [...] times daily. 200 Each 11 05/24/2018 08/03/2023 insulin syringe-needle (B-D INS SYR HALF-UNIT .3CC/31G) 31G X 5/16 0.3 ML syringeIndications:Di abetes mellitus type 1 (HCC) Use for injections 1-2 times daily. 100 Each 11 06/20/2014 04/17/2020 insulin syringe-needle (BD ULTRAFINE II) 31G X 5/16 0.3 ML syringe USE FOR INJECTION DAILY 100 Each 05/12/2019 04/17/2020 documented as of this encounter Progress Notes * Lizeth Garrett RN - 07/11/2019 9:00 AM CDT Anaid Whitaker and her mother were in our Pediatric Endocrinology clinic at [facility] on 07/11/2019. She is a 13 year old 8 month old who has had Type 1 Diabetes Mellitussince 08/17/12. Interval History: none. Past Medical History: I have reviewed the patient's medical, surgical, social and family history and there are no changes. Diabetes Therapies: NovoLog Given before or after meal? Usually before but sometimes afterwards due to not knowing what she is going to eat. Insulin to carbohydrate ratio(s): Breakfast: 1 units per 16 grams carbohydrate Approximate units given at breakfast: 7 units Lunch: 1 units per 16 grams carbohydrate Approximate units given at lunch: 8 units Dinner: 1 units per 16 grams carbohydrate Approximate units given at dinner: 12 units Snacks: 1 units per 16 grams carbohydrate Approximate units given for snacks: 2-4 units Correction dose: 1 for every 50 > 150 Is pen or vial used? Novolog Flexpen Lantus Dose: 23 units Given at: [id number] Is pen or vial used? Vial and syringe Total Daily Dose of Insulin: 52-54 units/day Injections are given by: self and occasionally by mother Injection sites: stomach and legs Are injections ever missed? States used to miss Lantus but not any more . Never Novolog. Blood Glucose Monitoring: Meter used: Accucheck Drake Frequency of blood glucose checks: Blood glucose checks done by: Logbook available: NO Meter downloaded: NO Target blood glucose range: 80-150 Meal Plan: Anaid Whitaker/her parent(s) report the child is on a carb-counting meal plan. Are carbohydrates counted carefully? yes Who counts carbohydrates? Mom Hypoglycemia: Anaid experiences ~ 0-2 lows per week that are sensed when the blood sugar is 50-70. Anaid feels the following symptoms when he/she is hypoglycemic: shaking, sweating and hunger. Low blood sugars are treated with juice or snack. Lows overnight: varies from 1-2 a night to none. Treatment is adequate. This patient has glucagon and glucagon is . Urine Ketone Testing: Anaid checks urine for ketones when glucose >250 and ill. Sports/Physical Exercise: PE and bicycling Frequency: 0-1 hour 1-5 times a week Medic-Alert tag: Sometimes Social History: Anaid lives with mother but goes to dad's on weekends. She is in the 9th grade at [employer] and is achieving average to below average last year in several subjects. Anaid has lots of friends. For extracurricular activities, Anaid enjoys drawing, playing on ipad and watching TV. Stress events: none She has an intact diabetes management plan for school. She expresses feelings of hatred regarding his diabetes. Laboratory Data: Recent Labs Component Name 07/11/19 0824 10/25/18 0841 04/12/18 1129 HGBA1C 10.1* 9.0* 10.8* Recent Labs Component Name 04/12/18 1125 02/12/15 0843 05/16/13 0902 TSH 0.43 1.54 1.70 Recent Labs Component Name 04/12/18 1131 09/09/16 0909 02/12/15 0917 MICROALBCREA <18 <39* 20 Recent Labs Component Name 09/09/16 0910 05/16/13 0902 CHOL 180* 154 TRIG 255 - HDL 65 - LDLCALC 64 - Patient/family's concerns/questions: : Feels every time they come her because always the same topics covered. She states she can understand her frustrations with having it and because she does not see complications she does not do what she should. Would like to consider a pump or continuous glucose sensor. Education topics discussed HgbA1c, hypoglycemia, ketosis, exercise, control, glucagon, sick days, driving, control and complications, blood glucose monitoring, parental supervision, tobacco, alcohol and/or illicit drugs Patient Goals/Instructions: Bolus before meals and snacks. No grazing. Begin logging. Parental supervision increased. * Breana Olivas MD - 07/10/2019 4:02 PM CDT Images from the original note were not included. Anaid Whitaker and her mother were seen in our Pediatric Endocrinology offices on 07/11/19. She is a 13 year 8 month old girl who is followed for type 1 diabetes diagnosed in 08/04. Interval History: Healthy since last seen in 11/09, a long interval. No severe hypoglycemia or ketonuria reported. Diabetes Therapies: Lantus from vial 23 Units at 9-10 PM. NovoLog by pen 1 Unit: 16 grams, correction 1 Unit: 50/150. Total reported daily insulin dose 52+ Units. Injections given by Anaid or her mother in her extremities and abdomen. Current Prescriptions: ??? ACCU-CHEK FASTCLIX LANCETS Use for blood glucose monitoring 4-6 times/day. ??? acetone,urine, (KETOSTIX) strip Use as directed for urine ketone checks if blood sugar above 250 or if ill. Dispense one bottle for school and one for home. ??? acetone,urine, (KETOSTIX) strip Use as needed (use when blood sugar is greater than 250 or whenill. ) ??? blood glucose (ACCU-CHEK SMARTVIEW) test strip Use for blood glucose monitoring 4-6 times/day. ??? Blood Glucose Monitoring Suppl (ACCU-CHEK DRAKE SMARTVIEW) W/DEVICE KIT kit Use for blood glucose monitoring. ??? glucagon (GLUCAGON EMERGENCY) injection Inject 1 mg into muscle as directed for severe low blood sugar reaction. ??? injection device-insulin (NOVOPEN ECHO) device Use for insulin delivery. ??? insulin aspart (NOVOLOG FLEXPEN) pen 1 unit per 16 grams of carbohydrate with meals and snacks. ??? insulin aspart (NOVOLOG PENFILL) cartridge Inject 1 unit per 18-20 grams of carbohydrates or asdirected. . Max daily dose 40 units. ??? insulin glargine (LANTUS) vial Inject 17 Units subcutaneously at bedtime ??? insulin lispro (HUMALOG) 100 UNIT/ML cartridge Inject 1 unit for every 18-20 grams carbohydrateor as directed. ??? Insulin Pen Needle (BD PEN NEEDLE DRAKE U/F) 32G X 4 MM MISC Use 4-6 Each as directed Use for injections 4-6 times daily. ??? insulin syringe-needle (B-D INS SYR HALF-UNIT .3CC/31G) 31G X 5/16 0.3 ML syringe Use for injections 1-2 times daily. ??? insulin syringe-needle (BD ULTRAFINE II) 31G X 5/16 0.3 ML syringe USE FOR INJECTION DAILY No Known Allergies Meal Plan: Anaid Arzola Wing/her parent(s) report the child is on a carb- counting meal plan, counting more than half of the time. Anaid Whitaker last saw our auto headlight mechanic in 11/09. Sports/Physical Exercise: PE class, biking Blood Glucose Monitoring: Anaid Whitaker's glucose monitoring is done 4-6 x daily by report using an Accu-Chek Drake meter with a target range of 80-150. There were no blood sugars to review today, so the following are by report: Breakfast Lunch Dinner Bedtime Overnight Other Range 200's 100's at school 200's No checks Low/in range/high Comments Per ADA guidelines, people with type 1 diabetes on multiple-dose insulin or insulin pump therapy should perform SMBG prior to meals and snacks, occasionally post-prandial, at bedtime, prior to exercise, when they suspect low blood glucose, after treating low blood glucose until they are normoglycemic, and prior to critical tasks such as driving. Hypoglycemia: Frequency/Treatment: 0-2 times per week. Anaid recognizes her hypoglycemia when her blood sugar is <50-70, characterized by shaking, sweating, and hunger. Treatment is adequate (juice) and injectable glucagon is available. Urine Ketone Monitoring: Yes, reportedly when glucose >250 and ill. Review of Systems: General: good energy and appetite ( always eating ) Skin: negative Eyes: normal vision, last eye exam in 01/11 ENT: brushes teeth 2 x daily, sees dentist Respiratory: negative GI: normal BM daily : nocturia 2 x nightly Neurologic: no h/o seizure(s) Psychiatric: negative, MSQ-9 depression score 3 (all points for little interest or pleasure) Endocrine: regular menses All other systems reviewed and were negative. 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 In care of grandparent or great-uncle when mother works. Physical Examination: BP 106/66 Ht 1.589 m (5' 2.56 ) Wt 55.6 kg (122 lb 9.2 oz) BMI 22.02 kg/m2 General: Well-appearing, WDWN, pleasant teen. Skin/Hair/Nails: Warm and dry. Insulin [...] organ enlargement or masses. Pubertal maturation: Miquel 5. Extremities: No cyanosis or edema. Neurologic system: Non-focal. DTRs 2+ and equal. Normal sensation for light touch and vibration. ID Tag Status: Sometimes wears Laboratory Data: Results for ANAID WHITAKER ( ) as of 07/12/2019 13:13 Ref. Range 07/11/2019 08:24 07/11/2019 10:08 Hemoglobin A1c POCT Latest Ref Range: 3.4 - 6.1 % 10.1 (H) Estimated Average Glucose Latest Units: mg/dL 243 Microalbumin Urine Latest Ref Range: <1.7 mg/dL 0.7 Microalbumin/Creatinine Ratio Latest Ref Range: <30 mg/g 8 Creatinine Urine Latest Units: mg/dL 89.51 Assessment: Type 1 diabetes of almost 7 years' duration under chronic poor control with HbA1C range 9.4-10.8% over the past 2 years No known diabetes complications or autoimmune co-morbidities Inadequate adult supervision suspected, particularly when in the care of her relatives while motheris working Management Plan: Suggested changes in insulin doses: 1. Change the meal/snack doses to 1 Unit: 14 grams. 2. Increase the correction dose to 1 Unit per 40 over 140 with a maximum of 6 Units. 3. Mother to give her Lantus 23 Units every morning before breakfast. Injection site rotation was reviewed. Stressed the importance of the requirement that she go to the school nurse's office daily before lunch. New school orders were provided. Call our nurses in one week to review BS values. Return visit in 3 months. Breana Olivas MD [phone] CC: Alvarez Prabhakar MD [address] [place] [address] [address] / [facility] [id number] Date: 07/10/2019 4:02 PM documented in this encounter Plan of Treatment Not on file documented as of this encounter Procedures Procedure Name Priority Date/Time Associated Diagnosis Comments MICROALB/CREAT RATIO URINE RANDOM PANEL Routine 07/11/2019 10:08 AM CDT Type 1 diabetes mellitus without complication (HCC) HEMOGLOBIN A1C - POCT INTERFACED Routine 07/11/2019 8:24 AM CDT documented in this encounter Results * MICROALB/CREAT RATIO URINE RANDOM PANEL (07/11/2019 10:08 AM CDT) Creatinine Urine 89.51 mg/dL 07/11/20 11:13 AM CDT [facility] Microalbumin Urine 0.7 <1.7 mg/dL 07/11/2019 11:13 AM CDT [facility] Microalbumin/Crea tinine Ratio 8 <30 mg/g 07/11/2019 11:13 AM CDT [facility] Urine URINE SPECIMEN OBTAINED BY CLEAN CATCH PROCEDURE / Unknown Collection / Unknown 07/11/2019 10:08 AM CDT 07/11/2019 10:31 AM CDT Breana Olivas MD LAB - URINE CHEMISTR Y ORDERABLES Performing Organization Address City/[facility] Co de Phone Number [facility] [address] [place] [address] * (ABNORMAL) HEMOGLOBIN A1C - POCT INTERFACED (07/11/2019 8:24 AM CDT) Hemoglobin A1C POCT 10.1(H) 3.4 - 6.1 % 07/11/2019 8:59 AM CDT [facility] Estimated Average Glucose 243 mg/dL 07/11/2019 8:59 AM CDT [facility] Blood BLOOD SPECIMEN / Unknown 07/11/2019 8:24 AM CDT 07/11/2019 8:59 AM CDT Breana Olivas MD LAB - POINT OF CARE ORDERABLES Performing Organization Address [facility] Co de Phone Number [facility] [address] [place] [phone] documented in this encounter Visit Diagnoses Diagnosis Type 1 diabetes mellitus without complication (HCC) Type I (juvenile type) diabetes mellitus without mention of complication, not stated as uncontrolled documented in this encounter Care Teams Research Mechanic Relationship Specialty Start Date End Date Alvarez Prabhakar MD [address] [place] [phone] PCP - General 12/12/11 documented as of this encounter
--- OUTSIDE RECORDS SUMMARY | 2024-11-22 05:20 | XMS_ITS | Encounter Summary ---
Author Organization [facility] Address [address] [address] Care Team Providers Care Pesticide Applicator Name Role Phone Alvarez Prabhakar MD Primary Care Provider [phone] Reason for Visit * Reason Onset Date Comments MEDICATION REFILL 05/24/2018 Encounter Details Date Type Department Care Team (Late st Contact Info) Description 05/24/2018 Refill [facility] Pediatrics - Diabetes [id number] [place] [address] Breana Olivas MD MEDICATION REFILL Social History [...] uncontrolled documented in this encounter Care Teams Pesticide Applicator Relationship Specialty Start Date End Date Alvarez Prabhakar MD [address] [place] [phone] PCP - General 12/12/11 documented as of this encounter
--- OUTSIDE RECORDS SUMMARY | 2024-11-22 05:20 | XMS_ITS | Encounter Summary ---
Author Organization [facility] Address [address] [place] [address] Care Team Providers Care Rn Hospice Name Role Phone Alvarez Prabhakar MD Primary Care Provider Reason for Visit * Reason Onset Date Comments MEDICATION REFILL 10/01/2015 Encounter Details Date Type Department Care Team (Late st Contact Info) Description 10/01/[address] [facility] Pediatrics - Diabetes Mgmt [address] [place] [address] Nesha Celaya APRN-[facility] [address] [place] [address] MEDICATION REFILL Social History Tobacco Use Types [...] Diagnoses Diagnosis Type 1 diabetes mellitus without complication- Primary Type I (juvenile type) diabetes mellitus without mention of complication, not stated as uncontrolled documented in this encounter Care Teams Rn Hospice Relationship Specialty Start Date End Date Alvarez Prabhakar MD [address] [place] [phone] PCP - General 12/12/11 documented as of this encounter
--- OUTSIDE RECORDS SUMMARY | 2024-11-22 05:20 | XMS_ITS | Encounter Summary ---
Author Organization [facility] Address [address] [place] [address] Care Team Providers Care Incubator Machine Operator Name Role Phone Alvarez Prabhakar MD Primary Care Provider [phone] Reason for Visit * Reason Comments Diabetes Encounter Details Date Type Department Care Team (Latest Contact Info) Description 07/14/2017 10:11 AM CDT - 07/14/2017 11:59 PM CDT Hospital Encounter [facility] Pediatrics - Diabetes Mgmt [facility] [place] [address] Breana Olivas MD Discharge Disposition: Home or [...] Sign Reading Time Taken Comments Blood Pressure 102/58 07/14/2017 10:17 AM CDT Pulse - - Temperature - - Respiratory Rate - - Oxygen Saturation - - Inhaled Oxygen Concentration - - Weight 44.4 kg (97 lb 14.2 oz) 07/14/20 17 10:17 AM CDT Height 154.5 cm (5' 0.83 ) 07/14/2017 1 0:17 AM CDT Body Mass Index 18.6 07/14/2017 10:17 AM CDT Body Mass Index Percentile 50.65% 07/14 10:17 AM CDT Growth Chart: [facility] (Girls, 2- 20 Years) documented in this encounter Discharge Instructions * Patient Instructions* Breana Olivas MD - 07/14/2017 11:37 AM CDT Increase the Lantus dose to 17 units; may eventually need a higher dose. Please log blood sugars and call our nurses weekly until the blood sugars are better. documented in this encounter Medications at Time [...] and one for home. 100 Strip 3 07/14/2017 04/12/2018 acetone,urine, (KETOSTIX) stripIndications:Typ e 1 diabetes mellitus without complication (HCC) Use as needed (use when blood sugar is greater than 250 or when ill. ) 100 Strip 11 04/21/2017 04/15/2022 blood glucose (ACCU-CHEK SMARTVIEW) test stripIndications:Typ e 1 diabetes mellitus without complication, with long-term current use of insulin (HCC) Use for blood glucose monitoring 4-6 times/day. 200 Strip 11 10/14/2016 11/02/2017 glucagon (GLUCAGON EMERGENCY) injectionIndications :Type 1 diabetes mellitus without complication (HCC) Inject 1 mg into muscle as directed for severe low blood sugar reaction. 2 Kit 07/14/2017 07/11/2019 insulin aspart (NOVOLOG PENFILL) cartridge Inject 0.5 unit per 15 grams carbohydrate. Max daily dose 40 units. 1 Box 5 02/26/2017 01/07/2018 insulin glargine (LANTUS) vialIndications:Type 1 diabetes mellitus without complication (HCC) Inject 7.5 Units subcutaneously at bedtime 10 mL 5 03/18/2016 09/14/2017 insulin lispro (HUMALOG) 100 UNIT/ML cartridgeIndications :Type 1 diabetes mellitus without complication, with long-term current use of insulin (HCC) Inject 1 unit for every 18-20 grams carbohydrate or as directed. 15 mL 5 12/25/2016 01/12/2020 Insulin Pen Needle (BD PEN NEEDLE DRAKE U/F) 32G X 4 MM MISC Use 4-6 Each as directed Use for injections 4-6 times daily. 200 Each 04/21/2017 05/24/2018 insulin syringe-needle (B-D INS SYR [...] Progress Notes * Breana Olivas MD - 07/14/2017 10:57 AM CDT Attending Physician: Breana Olivas MD Office 07/14/2017 10:57 AM Pediatric Endocrinology Clinic Follow-Up Note [facility] Anaid Dimas and her mother were seen in our Pediatric Endocrinology offices on 07/14/2017. Thepatient is a 11 y.o. 9 m.o. girl who has had type 1 diabetes since 08/04. Since her last visit, she has had no problems. Mom states that pt has been eating more so it's hard to keep track and correct glucose. Mom admits to missing insulin with snacks. Pt did not bring correct glucose meter so only 2 days of glucose were available during this visit. Basal/Bolus Insulin Injections Lantus 14 units around 8-10 pm by self in legs and abdomen Novolog insulin 1 unit per 18 grams CHO for all meals by self in legs and abdomen. 1 unit per 20 grams CHO for snacks Insulin correction dose 1 unit for every 50 mg/dl that BG exceeds 150 mg/dl. Estimated missed injections per week: 1. Estimated total daily dose: 48 units (1 unit/kg) Blood Glucose Monitoring Checked 4-7 times/day by self, using a Accucheck Drake meter. Target Range: 80-150 mg/dl. Patient has meter Yes; patient has logbook Yes. I reviewed blood glucoses from meter/logbook over the past 2 days Pt did not bring the glucose meter that she normally uses due to low battery so only two days of values were available. ?? Breakfast Lunch Dinner Bedtime Overnight Other Range [phone] 147-274 60 ??59 ?? Low/in range/high ? Comments ? Hypoglycemia Episodes per week: 1. Nocturnal episodes per month: 0. Patient/parent perceives Yes at < 60 mg/dl with Shaky, sweaty, and hungry and fixes with snack Patient carries or has carbohydrate available: Yes. Family has glucagon: No. Urine Ketone Monitoring: Yes, when >250 or sick. Medic-Alert tag Status: She does have one but wears it sometimes Meal Plan Counts carbs: Yes about half the time 3 meals/day; varied snacks/day Is calorie-restricted: No. Interviewed by dietitian today: Yes. Complications of Diabetes none. PAST MEDICAL HISTORY History: History ??? Delivery Method: ??? Gestation Age: 40 wks No NICU stay or intubation , Medical History: No past medical history on file., Surgical History: Past Surgical History: Procedure Laterality Date ??? NEGATIVE SURGICAL HISTORY , Family history: Family History Problem Relation Age of Onset ??? Negative Family History DM, thyroid d/o and Social History: Social History Social History Narrative Social History: Anaid lives with mother. Goes to father's every other weekend. She is in the 6thgrade at [employer] and is achieving average grades, IEP. She has an in-tact diabetes management plan for school. Anaid has good friends and for extracurricular activity Anaid enjoys playing tag and hide and go seek, trampoline, jumping rope, riding bike. Anaid Dimas expresses feelings of acceptance regarding living with diabetes. CURRENT MEDICATIONS Growth Hormone Therapy: none Sick day management: reviewed ??? insulin aspart (NOVOLOG PENFILL) cartridge Inject 0.5 unit per 15 grams carbohydrate. Max dailydose 40 units. ??? insulin glargine (LANTUS) vial Inject 7.5 Units subcutaneously at bedtime ??? glucagon (GLUCAGON EMERGENCY) injection Inject 1 [...] 0.3 ML syringe Use forinjection daily. ??? insulin lispro (HUMALOG) 100 UNIT/ML cartridge Inject 1 unit for every 18-20 grams carbohydrateor as directed. ??? blood glucose (ACCU-CHEK SMARTVIEW) test strip Use for blood glucose monitoring 4-6 times/day. ??? ACCU-CHEK FASTCLIX LANCETS Use for blood glucose monitoring 4-6 times/day. ??? acetone,urine, (KETOSTIX) strip Use as directed for urine ketone checks if blood sugar above 200 or if ill. Dispense one bottle for school and one for home. ??? insulin syringe-needle (B-D INS SYR HALF-UNIT .3CC/31G) 31G X 5/16 0.3 ML syringe Use for injections 1-2 times daily. ??? Blood Glucose Monitoring Suppl (ACCU-CHEK DRAKE SMARTVIEW) W/DEVICE KIT kit Use for blood glucose monitoring. Medication compliance is fair ALLERGIES No Known Allergies BP 102/58 Ht 1.545 m (5' 0.83 ) Wt 44.4 kg (97 lb 14.2 oz) BMI 18.6 kg/m2 @WTLAST@ - 48 %ile (Z= -0.05) based on CDC 2-20 Years ivvmte-vfd-nbm data using vitals from 07/14/2017. Height: 154.5 cm (5' 0.83 ) - 42 %ile (Z= -0.21) based on CDC 2-20 Years ksnngln-eyf-ihg data usingvitals from 07/14/2017. BMI: 18.6 kg/m2 - 51 %ile (Z= 0.02) based on CDC 2-20 Years BMI-for-age data using vitals from 07/14/2017. LABORATORY DATA Hospital Encounter on 07/14/17 HEMOGLOBIN A1C - POCT (IP) ALEXANDRA Result Value Ref Range Hgb A1C POCT 9.6 (Abnormal) 3.4 - 6.1 % QC Verified Yes Yes Review of Systems Constitutional: Negative for fever. Big appetite Eyes: Negative for blurred vision and double vision. Respiratory: Negative for shortness of breath. Cardiovascular: Negative for chest pain. Gastrointestinal: Negative for abdominal pain, constipation, diarrhea, nausea and vomiting. Genitourinary: Positive for frequency. Nocturia + Musculoskeletal: Negative for joint pain and myalgias. Skin: Negative for rash. Neurological: Negative for weakness and headaches. Physical Exam: General: Awake and alert HEENT: atraumatic, normocephalic, no nasal discharge, no exudates Neck: no lymphadenopathy CV: RRR, S1/S2, no murmurs, gallops or rubs noted Femoral pulses 2+ with capillary refill <3 seconds Resp: clear to auscultation bilaterally; no wheezes Abd: soft, nontender, nondistended; bowel sounds present; Neuro: no atrophy; moves all extremities equally; Skin: moist; without rash or erythema Diabetes Type 1 Assessment 11 yo female with history of DM1 with fair compliance here for follow up. HgbA1c was 9.6% today. Plan: -Increase Lantus to 17 units, may need a higher dose eventually -Mom to call back in one week with blood sugars -Keep Novolog at 1 unit for 18 g CHO with all meals Primary Enuresis Assessment Pt has issues with nocturia and enuresis. Mother states this has been occurring since before diabetes diagnosis. Plan: -Control sugars to r/o cause from diabetes -Speak to PCP about treatment Rhythm DO Saniya Attending Note: I interviewed the family and examined Anaid. She has been healthy since her last visit in December. Her doses are listed correctly above, including NovoLog 1 Unit: 18 grams. She gives most of her own injections, usually' supervised. Her meter had a battery, so we only had 2 days of BS values to review. They are erratic, ranging from 60-428. Her ROS was remarkable only for frequent primary enuresis; she remains premenarchal. On my exam, she is a well appearing, well grown preteen with good dentition, no goiter, no insulin lipohypertrophy, and Miquel 4 development. I increased Anaid's Lantus dose to 17 units and advised her mother that she will likely need another increase. I updated her school nurse's diabetes management plan. The family was given a log book and asked to record BS values and review them with our nurses by phone in 1 week. We discussed theimportance of adult supervision at this age, including by her grandparents. She had a Nutrition consultation. She should return to see us in 3 months. CC: Alvarez Prabhakar MD [address] [place] [address] [address] [facility] [id number] Date: 07/14/2017 11:27 AM documented in this encounter Consult Notes * Mar Mcrae, KAREN/LD - 07/14/2017 10:40 AM CDT Date: 07/14/2017 Diabetes Clinical Nutrition Assessment Anaid Dimas is a 11 y.o. 9 m.o. female seen in diabetes clinic for annual nutrition assessment The encounter diagnosis was Uncontrolled type 1 diabetes mellitus without complication. Anthropometrics: Weight: 44.4 kg (97 lb 14.2 oz) 48 %ile (Z= -0.05) based on CDC 2-20 Years qkmtal-jwo-cyd data using vitals from 07/14/2017. Height: 154.5 cm (5' 0.83 ) 42 %ile (Z= -0.21) based on CDC 2-20 Years cverffr-ipm-frl data using vitals from 07/14/2017. Body mass index is 18.6 kg/(m^2). 51 %ile (Z= 0.02) based on CDC 2-20 Years BMI-for-age data using vitals from 07/14/2017. Wt Readings from Last Encounters: 12/25/16 40.1 kg (88 lb 6.5 oz) (38 %, Z= -0.30)* 06/24/16 34.3 kg (75 lb 9.9 oz) (20 %, Z= -0.85)* Recent Labs Component Name 07/14/17 1027 12/25/16 1343 09/09/16 0911 HGBA1C 9.6* 9.4* 9.8* Recent Labs Component Name 09/09/16 0910 CHOL 180* TRIG 255 HDL 65 LDLCALC 64 Medications: Current Outpatient Prescriptions Medication ??? insulin aspart (NOVOLOG PENFILL) cartridge ??? insulin glargine (LANTUS) vial ??? glucagon (GLUCAGON EMERGENCY) injection ??? acetone,urine, (KETOSTIX) strip ??? acetone,urine, (KETOSTIX) strip ??? Insulin Pen Needle (BD PEN NEEDLE DRAKE U/F) 32G X 4 MM MISC ??? Insulin Syringe-Needle U-100 (BD INSULIN SYRINGE ULTRAFINE) 31G X 15/64 0.3 ML syringe ??? insulin lispro (HUMALOG) 100 UNIT/ML cartridge ??? blood glucose (ACCU-CHEK SMARTVIEW) test strip ??? ACCU-CHEK FASTCLIX LANCETS ??? insulin syringe-needle (B-D INS SYR HALF-UNIT .3CC/31G) 31G X 16 0.3 ML syringe ??? Blood Glucose Monitoring Suppl (ACCU-CHEK DRAKE SMARTVIEW) W/DEVICE KIT kit No current facility-administered medications for this encounter. Food and nutrition related history: Mom described Anaid with increasing appetite, large portion sizes at meal time and meal size snacks between meals. Mom will be the point person for carbohydrate count of all meals and snacks, giving dose recommendations even when she is not home. Mom reported pt is eating servings of foods, but uncertain of actual carbohydrate counts. Insulin is delivered after school lunch, even though pt is bringing lunch from home. Pt described mindless eating behaviors. Typical intake on most days: B: cereal with milk, anaya L: from home: sandwich, chips, yogurt/ muffin/ brownie, flavored milk After school snack: 2 sandwiches, pretzels, water, fruit D: variety of meat, starches, vegetables, water or diet soda Nutrition Care Process Nutrition Diagnostic Statement: Altered nutrition-related lab values related to: inaccurate carbohydrate counting vs insulin dosing as evidenced by : recall and elevated A1c Nutrition Diagnostic Statement Progress: New diagnostic statement established Nutrition Intervention: Nutrition Counseling - provided verbal instruction of age appropriate serving size and how mindful eating can contributeto appetite satisfaction and addressing actual hunger cues. - reinforced delivery of insulin before eating and suggested mom to talk with school official to see if insulin can be switched to be given before lunch. Nutrition Goal: Biochemical data will be improved/normalized Have all meals and snacks at table with minimal distraction Mom to create list of updated portion size and carbohydrate count of typical intake Nutrition Goal Timeframe: Ongoing Nutrition Goal Progress: Continue with current goal Mar Mcrae RD/VEE 15 minutes have been spent in providing nutrition counseling and education. Parent verbalized understanding of the plan and anticipate good compliance. Follow up with RD in 1 year documented in this encounter Plan of Treatment Not on file documented as of this encounter Procedures Procedure Name Priority Date/Time Associated Diagnosis Comments HEMOGLOBIN A1C - POCT (IP) ALEXANDRA Routine 07/14/2017 10:27 AM CDT Uncontrolled type 1 diabetes mellitus without complication documented in this encounter Results * (ABNORMAL) HEMOGLOBIN A1C - POCT (IP) ALEXANDRA (07/14/2017 10:27 AM CDT) Hemoglobin A1c POCT 9.6(A) 3.4 - 6.1 % [facility] POCT TESTING QC Verified Yes Yes [facility] PO CT TESTING Blood BLOOD SPECIMEN / Unknown 07/14/2017 10:27 AM CDT Breana Olivas MD LAB - POINT OF CARE ORDERABLES [facility] POCT TESTING [address] [facility] [place] [address], [facility] [phone] documented in this encounter Visit Diagnoses Diagnosis Uncontrolled type 1 diabetes mellitus without complication documented in this encounter Care Teams Incubator Machine Operator Relationship Specialty Start Date End Date Alvarez Prabhakar MD [address] [place] [address] PCP - General 12/12/11 documented as of this encounter
--- OUTSIDE RECORDS SUMMARY | 2024-11-22 05:20 | XMS_ITS | Encounter Summary ---
Author Organization [facility] Address [address] [place] [address] Care Team Providers Care Photo Graphics Librarian Name Role Phone Alvarez Prabhakar MD Primary Care Provider [phone] Reason for Visit * Reason Onset Date Comments Blood Sugar Problem 09/12/2015 Encounter Details Date Type Department Care Team (Late st Contact Info) Description 09/12/2015 Telephone [facility] Pediatrics - Diabetes Mgmt [address] [place] [address] Kory Lopez APRN-PASSENGER SERVICE SUPERVISOR [address] [place] [id number] Blood Sugar Problem Social History Tobacco Use [...] Telephone Encounter - Lyric Ardon RN - 09/12/2015 1:24 PM CDT I received a phone call from the school nurse (Carlita). She reports patient with a blood sugar at 0900 of 49, patient reports not eating breakfast. School Nurse treated and at 0916 blood sugar was 72. Nurse reports letting patient eat breakfast but did not dose for carbohydrates eaten. 0928 blood sugar 171 1005 blood sugar 351 At 1020 blood sugar was 350, negative ketones, nurse gave patient peanut butter and jelly and crackers and dose for this with 1.5 units of insulin. 1100 blood sugar 419 1130 blood sugar 378, all negative ketones. Nurse has also provided water to patient. I spoke with the school nurse about about the need to give insulin with breakfast after the blood sugar was in range. She verbalized understanding. Patient is to have lunch now. I let the school nurse know to dose patient based on carbohydrates shelley eaten and to give the ordered correction dose as per school letter if required. documented in this encounter Plan of Treatment Not on file documented as of this encounter Visit Diagnoses Not on filedocumented in this encounter Care Teams Photo Graphics Librarian Relationship Specialty Start Date End Date Alvarez Prabhakar MD [address] [place] [address] PCP - General 12/12/11 documented as of this encounter
--- OUTSIDE RECORDS SUMMARY | 2024-11-22 05:20 | XMS_ITS | Encounter Summary ---
Author Organization [facility] Address [address] [facility] [place] [address] Care Team Providers Care Asl Interpreter Name Role Phone Alvarez Prabhakar MD Primary Care Provider [phone] Reason for Visit * Reason Onset Date Comments Diabetes 02/16/2015 Encounter Details Date Type Department Care Team (Late st Contact Info) Description 02/16/2015 Telephone [facility] Pediatrics - Endocrinology [address] [place] [phone] Brendan Zafar MD [address] [place] [id number] Diabetes Social History Tobacco Use Types Packs/Day Years Used Date Smoking Tobacco: Never Assessed Sex and Gender Information Value Date Recorded Sex Assigned at Not on file Gender Identity Not on file Sexual Orientation Not on file documented as of this encounter Miscellaneous Notes * Telephone Encounter - Brendan Zafar MD - 02/16/2015 4:52 PM CDT Mother called to review bg levels Am: 91-191 mg/dL Noon: unavailable Supper 99-232 HS: 65-365 Insulin: Lantus 5 units; Humalo.5 u per 20 g carb Adv: decrease mealtime insulin to 0.5 u per 30 carb; f/u next week Brendan Zafar MD documented in this encounter Plan of Treatment Not on file documented as of this encounter Visit Diagnoses Not on filedocumented in this encounter Care Teams Asl Interpreter Relationship Specialty Start Date End Date Alvarez Prabhakar MD [address] [place] [address] PCP - General 12/12/11 documented as of this encounter
--- OUTSIDE RECORDS SUMMARY | 2024-11-22 05:20 | XMS_ITS | Encounter Summary ---
Author Organization [facility] Address [address] [place] [address] Care Team Providers Care Assistant Housekeeping Manager Name Role Phone Alvarez Prabhakar MD Primary Care Provider [phone] Encounter Details Date Type Department Care Team (Late st Contact Info) Description 07/18/2019 Telephone [facility] - Diabetes [address] [address] Gracie Cee, RN Social History Tobacco Use Types Packs/Day Years [...] documented as of this encounter Care Teams Assistant Housekeeping Manager Relationship Specialty Start Date End Date Alvarez Prabhakar MD [address] [place] [address] PCP - General 12/12/11 documented as of this encounter
--- OUTSIDE RECORDS SUMMARY | 2024-11-22 05:20 | XMS_ITS | Encounter Summary ---
Author Organization [facility] Address [address] [address] Care Team Providers Care Retail Client Solutions Consultant Name Role Phone Alvarez Prabhakar MD Primary Care Provider [phone] Reason for Visit * Reason Onset Date Comments MEDICATION REFILL 03/18/2016 Encounter Details Date Type Department Care Team (Late st Contact Info) Description 03/18/2016 Refill [facility] Pediatrics - Diabetes [facility] [address] [place] [address] Kory Lopez APRN-SODA COLUMN OPERATOR [address] [place] [phone] MEDICATION REFILL Social History Tobacco Use Types [...] documented in this encounter Care Teams Retail Client Solutions Consultant Relationship Specialty Start Date End Date Alvarez Prabhakar MD [address] [place] [phone] PCP - General 12/12/11 documented as of this encounter
--- OUTSIDE RECORDS SUMMARY | 2024-11-22 05:20 | XMS_ITS | Encounter Summary ---
Author Organization [facility] Address [address] [place] [address] Care Team Providers Care Field Cane Scaler Helper Name Role Phone Alvarez Prabhakar MD Primary Care Provider [phone] Reason for Visit * Reason Comments Diabetes Encounter Details Date Type Department Care Team (Latest Contact Info) Description 09/09/2016 8:30 AM CDT - 09/09/2016 11:59 PM CDT Hospital Encounter [facility] Pediatrics - Diabetes [address] [address] Breana Olivas MD Discharge Disposition: Home or [...] on file documented as of this encounter Discharge Instructions * Patient Instructions* Breana Olivas MD - 09/09/2016 9:36 AM CDT Insulin dose changes: Lantus 11 Units Breakfast Humalog 1 Unit per 18 grams Humalog correction 1 Unit per 50 over 150, i.e.: BS 151-200 1 Unit BS 201-250 2 units BS 251-300 3 Units BS >300 4 Units documented in this encounter Medications at Time [...] sugar reaction. 2 Kit 0 08/11/2014 07/07/2017 HUMAPEN LUXURA HD device Use to administer Humalog as directed. 1 Device 0 08/11/2016 02/26/2017 insulin glargine (LANTUS) vialIndications:Type 1 diabetes mellitus without complication (HCC) Inject 7.5 Units subcutaneously at bedtime 10 mL 5 03/18/2016 09/14/2017 insulin lispro (HUMALOG) cartridgeIndications :Type 1 diabetes mellitus without complication (HCC) Inject 0.5 unit for every 15 grams carbohydrate or as directed. Max daily dose = 30 units 15 mL 5 03/18/2016 12/25/2016 Insulin Pen Needle (BD PEN NEEDLE DRAKE [...] Progress Notes * Breana Olivas MD - 09/09/2016 9:22 AM CDT Images from the original note were not included. Anaid Dimas and her mother were seen in our Pediatric Endocrinology offices on . Sheis a 10 y.o. 10 m.o. girl who is followed for type 1 diabetes diagnosed in July 2012. Interval History: Current URI, otherwise healthy since last seen in June by KILLIAN Mclean. Nosevere hypoglycemia; sometimes gets moderate-large ketones. Diabetes Therapies: Lantus 10 Units qhs; Humalog 1 Unit: 20 grams, correction 1 Unit: 100/200. Injections given by Anaid or adult in her extremities and abdomen. Total daily insulin dose reported at 29+ Units. Current Prescriptions: ??? insulin lispro (HUMALOG) cartridge Inject 0.5 unit for every 15 grams carbohydrate or as directed. Max daily dose = 30 units ??? HUMAPEN LUXURA HD device Use to administer Humalog as directed. ??? ACCU-CHEK FASTCLIX LANCETS Use for blood glucose monitoring 4-6 times/day. ??? insulin glargine (LANTUS) vial Inject 7.5 Units subcutaneously at bedtime ??? Insulin Syringe-Needle U-100 (BD INSULIN SYRINGE ULTRAFINE) 31G X 15/64 0.3 ML syringe Use forinjection daily. ??? acetone,urine, (KETOSTIX) strip Use as directed for urine ketone checks if blood sugar above 200 or if ill. Dispense one bottle for school and one for home. ??? blood glucose (ACCU-CHEK SMARTVIEW) test strip Use for blood glucose monitoring 4-6 times/day. ??? Insulin Pen Needle (BD PEN NEEDLE DRAKE U/F) 32G X 4 MM MISC Use 4-6 Each as directed Use for injections 4-6 times daily. ??? acetone,urine, (KETOSTIX) strip Use as needed (use when blood sugar is greater than 250 or whenill. ). ??? glucagon (GLUCAGON EMERGENCY) injection Inject 1 mg into muscle as directed for severe low blood sugar reaction. ??? insulin syringe-needle (B-D INS SYR HALF-UNIT .3CC/31G) 31G X 5/16 0.3 ML syringe Use for injections 1-2 times daily. ??? Blood Glucose Monitoring Suppl (ACCU-CHEK DRAKE SMARTVIEW) W/DEVICE KIT kit Use for blood glucose monitoring. No Known Allergies Meal Plan: Anaid Dimas/her parent(s) report the child is on a carb- counting meal plan. Anaid Dimas last saw our mill washer in February. Sports/Physical Exercise: P.E. and biking Blood Glucose Monitoring: Anaid Dimas's glucose monitoring is done 4+ x day using an Accu-Chek meter with a target range of 80-150; glucometer available for examination: Breakfast Lunch Dinner Bedtime Overnight Other Range [phone] 78-362 at home [phone] Low/in range/high 0/2/10 0/2/4 3/3/3 3/0/3 Comments Good at school Per ADA guidelines, people with type 1 diabetes on multiple-dose insulin or insulin pump therapy should perform SMBG prior to meals and snacks, occasionally post-prandial, at bedtime, prior to exercise, when they suspect low blood glucose, after treating low blood glucose until they are normoglycemic, and prior to critical tasks such as driving. Hypoglycemia: Frequency/Treatment: 0-1 times per week. Anaid recognizes her hypoglycemia when her blood sugar is <60, characterized by shaking, sweating and hunger. Treatment is adequate and injectable glucagon is available. Urine Ketone Monitoring: Yes, when glucose >250 and ill. Review of Systems: General: big appetite, high energy, insomnia Skin: negative Eyes: negative, eye exam due ENT: brushes teeth 3 x daily, sees dentist/5 cavities at last check up Respiratory: negative GI: normal BM 3 x daily, ? mild lactose intolerance : nocturia x 3 Neurologic: no h/o seizure(s) Psychiatric: negative Endocrine: premenarchal All other systems reviewed and were negative. Past Medical History: I have reviewed the patient's medical, surgical, social and family history and the updates are: 6th grader at [employer]. Grandmother watches in evening and father gets every other weekend. Physical Examination: There were no vitals taken for this visit. No weight on file for this encounter. No height on file for this encounter. There is no height or weight on file to calculate BMI. No height and weight on file for this encounter. General: Well-appearing, slim, pleasant preteen. Skin/Hair/Nails: Warm and dry. Insulin lipohypertrophy on the abdomen. No observable rashes. Eyes: Sclerae clear, PERRLA, EOMs intact; no abnormal fundoscopic findings. Dentition: Good hygiene. 25 permanent teeth. Neck: Supple. Thyroid generous in size. Chest: Symmetric. Lungs clear to auscultation, unlabored breathing. CV system unremarkable with regular heart rate and rhythm, normal S1/S2, no murmurs, rubs, or gallops. Abdomen: Soft, non-tender, without organ enlargement or masses. Pubertal maturation: Miquel 3-4. Extremities: No cyanosis or edema. Neurologic system: Non-focal. DTRs 2+ and equal. Normal sensation for light touch and vibration. ID Tag Status: Wearing Laboratory Data: Hospital Encounter on 09/09/16 LIPID PROFILE Result Value Ref Range Cholesterol 180 (H) <170 mg/dL Triglycerides 255 42 - 330 mg/dL HDL Chol 65 >40 mg/dL LDL Calc 64 <100 mg/dL VLDL Calc 51 (H) 12 - 38 mg/dL Chol HDL Ratio 2.8 <=5.0 MICROALB/CREAT RATIO URINE RANDOM PANEL Result Value Ref Range Creat Urine mg/dL 12.91 mg/dL Microalbumin Ur mg/dL <0.5 <1.7 mg/dL Microalb/Creat Ratio <39 (H) <30 mg/g HEMOGLOBIN A1C - POCT (IP) BEAKER Result Value Ref Range Hgb A1C POCT 9.8 (Abnormal) 3.4 - 6.1 % QC Verified Yes Yes Assessment: Type 1 diabetes of 4 years' duration under poor control; many adult caretakers. No known diabetes complications or co-morbidities Management Plan: Suggested changes in insulin doses: 1. Lantus 11 Units, 2. Breakfast Humalog 1 Unit per 18 grams, and 3. Humalog correction 1 Unit per 50 over 150, maximum of 4 Units. Site rotation reviewed Log BS values for 1-2 weeks and then call our nurses to review. CHO cheat sheet handouts provided for her caretakers.. Influenza vaccination given. Return visit in 3 months. Of the 40 minutes I spent with the family, >50% were spent discussing diabetes management. Breana Olivas MD [phone] CC: Alvarez Prabhakar MD [address] [place] [address] #5 / [facility] [id number] Date: 09/09/2016 9:22 AM documented in this encounter Plan of Treatment Not on file documented as of this encounter Procedures Procedure Name Priority Date/Time Associated Diagnosis Comments HEMOGLOBIN A1C - POCT (IP) BEAKER Routine 09/09/2016 9:11 AM CDT Type 1 diabetes mellitus without complication (HCC) LIPID PROFILE Routine 09/09/2016 9:10 AM CDT Type 1 diabetes mellitus without complication (HCC) MICROALB/CREAT RATIO URINE RANDOM PANEL Routine 09/09/2016 9:09 AM CDT Type 1 diabetes mellitus without complication (HCC) documented in this encounter Results * (ABNORMAL) HEMOGLOBIN A1C - POCT (IP) BEAKER (09/09/2016 9:11 AM CDT) Hemoglobin A1c POCT 9.8(A) 3.4 - 6.1 % [facility] POCT TESTING QC Verified Yes Yes [facility] PO CT TESTING Blood BLOOD SPECIMEN / Unknown 09/09/2016 9:11 AM CDT Breana Olivas MD LAB - POINT OF CARE ORDERABLES [facility] POCT TESTING [address], [place] [id number] [place] [address] * (ABNORMAL) LIPID PROFILE (09/09/2016 9:10 AM CDT) Cholesterol 180(H) <170 mg/dL 09/09/2016 9:41 AM T [facility] Triglycerides 255 42 - 330 mg/dL 09/09/2016 9:41 AM T [facility] HDL Cholesterol 65 >40 mg/dL 6 9:41 AM T [facility] LDL Calculated 64 <100 mg/dL 09/09/2016 9:41 AM T [facility] VLDL Calculated 51(H) 12 - 38 mg/dL 09/09/2016 9:41 AM T [facility] Chol HDL Ratio 2.8 <=5.0 09/09/2016 9:41 AM T [facility] Blood BLOOD SPECIMEN / Unknown 09/09/2016 9:10 AM CDT 09/09/2016 9:16 AM CDT Narrative [facility] - 09/09/2016 9:41 AM CDT Lipid Profile Comment: Adult references ranges are the recommendation of the [place] [employer] , for those patients >18 [...] results. Breana Olivas MD LAB - CHEMISTRY MANJULA ZHAO [facility] Organization Address City/State/[facility] Co de Phone Number [facility] [address] [place] [address] * (ABNORMAL) MICROALB/CREAT RATIO URINE RANDOM PANEL (09/09/2016 9:09 AM CDT) Creatinine Urine 12.91 mg/dL 09/09/20 9:53 AM CDT [facility] Microalbumin Urine <0.5 <1.7 mg/dL 09/09/2016 9:53 AM T [facility] Microalbumin/Crea tinine Ratio <39(H) <30 mg/g 09/09/2016 9:53 AM T [facility] Comment:Not Calculated Urine URINE SPECIMEN OBTAINED BY CLEAN CATCH PROCEDURE / Unknown 09/09/2016 9:09 AM CDT 09/09/2016 9:16 AM CDT Breana Olivas MD LAB - URINE CHEMISTR Y ORDERABLES [facility] [address] [place] [address] documented in this encounter Visit Diagnoses Diagnosis Type 1 diabetes mellitus without complication (HCC) Type I (juvenile type) diabetes mellitus without mention of complication, not stated as uncontrolled documented in this encounter Care Teams Field Cane Scaler Helper Relationship Specialty Start Date End Date Alvarez Prabhakar MD [address] [place] [address] PCP - General 12/12/11 documented as of this encounter
--- OUTSIDE RECORDS SUMMARY | 2024-11-22 05:20 | XMS_ITS | Encounter Summary ---
Author Organization [facility] Address [address] [place] [address] Care Team Providers Care Tool And Machine Maintainer Name Role Phone Alvarez Prabhakar MD Primary Care Provider [phone] Encounter Details Date Type Department Care Team (Late st Contact Info) Description 12/24/2016 Orders Only [facility] Pediatrics - Diabetes [address] [address] Breana Olivas MD Type 1 diabetes [...] (ABNORMAL) HEMOGLOBIN A1C - POCT (IP) ALEXANDRA (12/25/2016 1:43 PM VAULT CLERK) Hemoglobin A1c POCT 9.4(A) 3.4 - 6.1 % [facility] POCT TESTING QC Verified Yes Yes [facility] PO CT TESTING Blood BLOOD SPECIMEN / Unknown 12/25/2016 1:43 PM VAULT CLERK Breana Olivas MD LAB - POINT OF CARE ORDERABLES [facility] POCT TESTING [address] [place], [place] [id number] [place] [address] documented in this encounter Visit Diagnoses Diagnosis Type 1 diabetes mellitus without complication (HCC)- Primary Type I (juvenile type) diabetes mellitus without mention of complication, not stated as uncontrolled documented in this encounter Care Teams Tool And Machine Maintainer Relationship Specialty Start Date End Date Alvarez Prabhakar MD [address] [place] [phone] PCP - General 12/12/11 documented as of this encounter
--- OUTSIDE RECORDS SUMMARY | 2024-11-22 05:20 | XMS_ITS | Encounter Summary ---
Author Organization [facility] Address [address] [address] Care Team Providers Care Landscape Crew Leader Name Role Phone Alvarez Prabhakar MD Primary Care Provider [phone] Reason for Visit * Reason Onset Date Comments Blood Sugar Problem 09/27/2015 Encounter Details Date Type Department Care Team (Late st Contact Info) Description 09/27/2015 Telephone [facility] Pediatrics - Diabetes Mgmt [address] [place] [address] Kory Lopez APRN-CNP [address] [place] [id number] Blood Sugar Problem Social History Tobacco Use [...] Telephone Encounter - Nesha Celaya APRN-CNP - 09/27/2015 3:44 PM MOSQUITO SPRAYER I returned call to mother at [phone] who reports elevated bgs lately. Bgs this AM were 430,415,347,then 390. Ketones were trace this AM. Bg 335 at 1300. Bg is now 277. Mother was driving and didnot have all bgs with her so I asked her to call back with 5-7 days of bgs. I recommended to call immediately for moderate-large ketones or vomiting. UITO SPRAYER documented in this encounter Plan of Treatment Not on file documented as of this encounter Visit Diagnoses Not on filedocumented in this encounter Care Teams Landscape Crew Leader Relationship Specialty Start Date End Date Alvarez Prabhakar MD [address] [place] [address] PCP - General 12/12/11 documented as of this encounter
--- OUTSIDE RECORDS SUMMARY | 2024-11-22 05:20 | XMS_ITS | Encounter Summary ---
Author Organization [facility] Address [address] [facility] [place] [address] Care Team Providers Care Test Operator Name Role Phone Alvarez Prabhakar MD Primary Care Provider [phone] Reason for Visit * Reason Onset Date Comments MEDICATION REFILL 01/13/2019 Encounter Details Date Type Department Care Team (Late st Contact Info) Description 01/13/2019 Refill [facility] Pediatrics - Diabetes [address] [address] Breana Olivas MD MEDICATION REFILL Social History [...] uncontrolled documented in this encounter Care Teams Test Operator Relationship Specialty Start Date End Date Alvarez Prabhakar MD [address] [place] [address] PCP - General 12/12/11 documented as of this encounter
--- OUTSIDE RECORDS SUMMARY | 2024-11-22 05:20 | XMS_ITS | Encounter Summary ---
Author Organization [facility] Address [address] [facility] [place] [address] Care Team Providers Care Breast Surgeon Name Role Phone Alvarez Prabhakar MD Primary Care Provider [phone] Reason for Visit * Reason Onset Date Comments MEDICATION REFILL 02/26/2017 Encounter Details Date Type Department Care Team (Late st Contact Info) Description 02/26/2017 Refill [facility] Pediatrics - Endocrinology [address] [place] [address] Kory Lopez APRN-COMMUNITY RELATIONS OFFICER [address] [place] [phone] MEDICATION REFILL Social History Tobacco Use Types [...] Telephone Encounter - Jones Mcconnell RN - 02/26/2017 9:30 AM CDT Spoke with pharmacist. Humalog is no longer covered and Novolog is preferred. Called mom to discusschange. Will mail NovoPen Echo device and order to pharmacy, too. Mom verbalized understanding and will call with questions. documented in this encounter Plan of Treatment Not on file documented as of this encounter Visit Diagnoses Not on filedocumented in this encounter Additional Health Concerns Infection Onset Date Last Indicated Resolved Time COVID-19 Under Investigation 03/03/2021 03/03/2021 03/03/2021 11:11 AM CDT documented as of this encounter Care Teams Breast Surgeon Relationship Specialty Start Date End Date Alvarez Prabhakar MD [address] [place] [address] PCP - General 12/12/11 documented as of this encounter
--- OUTSIDE RECORDS SUMMARY | 2024-11-22 05:20 | XMS_ITS | Encounter Summary ---
Author Organization [facility] Address [address] [facility] [place] [address] Care Team Providers Care Covering Machine Tender Name Role Phone Alvarez Prabhakar MD Primary Care Provider [phone] Encounter Details Date Type Department Care Team (Late st Contact Info) Description 05/28/2015 Orders Only [facility] Pediatrics - Endocrinology [address] [place] [address] Kory Lopez APRN-FINISHING SUPERVISOR PLASTIC SHEETS [address] [place] [address] Type 1 diabetes mellitus without complication (HCC) [...] A1c POCT 7.4(A) 3.4 - 6.1 % [facility] POCT TESTING QC Verified Yes Yes [facility] PO CT TESTING Blood specimen (specimen) BLOOD SPECIMEN / Unknown 05/29/2015 11:54 AM CDT Kory Lunpadmini SMUTTER-FINISHING SUPERVISOR PLASTIC SHEETS LAB - POINT OF CARE ORDERABLES [facility] POCT TESTING [address] [phone] documented in this encounter Visit Diagnoses Diagnosis Type 1 diabetes mellitus without complication (HCC)- Primary Type I (juvenile type) diabetes mellitus without mention of complication, not stated as uncontrolled documented in this encounter Care Teams Covering Machine Tender Relationship Specialty Start Date End Date Alvarez Prabhakar MD [address] [place] [phone] PCP - General 12/12/11 documented as of this encounter
--- OUTSIDE RECORDS SUMMARY | 2024-11-22 05:20 | XMS_ITS | Encounter Summary ---
Author Organization [facility] Address [address] [facility] [place] [address] Care Team Providers Care In Home Sales Representative Name Role Phone Alvarez Prabhakar MD Primary Care Provider [phone] Reason for Visit * Reason Onset Date Comments MEDICATION REFILL 04/21/2017 Encounter Details Date Type Department Care Team (Late st Contact Info) Description 04/21/2017 Refill [facility] Pediatrics - Endocrinology [address] [place] [address] Kory Lopez APRN-CYBER INCIDENT HANDLER [address] [place] [phone] MEDICATION REFILL Social History Tobacco Use Types [...] uncontrolled documented in this encounter Care Teams In Home Sales Representative Relationship Specialty Start Date End Date Alvarez Prabhakar MD [address] [place] [phone] PCP - General 12/12/11 documented as of this encounter
--- OUTSIDE RECORDS SUMMARY | 2024-11-22 05:20 | XMS_ITS | Encounter Summary ---
Author Organization [facility] Address [address] [facility] [place] [address] Care Team Providers Care Glass Products Inspector Name Role Phone Alvarez Prabhakar MD Primary Care Provider [phone] Reason for Visit * Reason Onset Date Comments Letter 07/04/2015 Encounter Details Date Type Department Care Team (Late st Contact Info) Description 07/04/2015 Telephone [facility] Pediatrics - Diabetes [facility] [address] [place] [address] Kory Lopez APRN-CNP [address] [place] [phone] Letter Social History Tobacco Use Types Packs/Day Years Used Date Smoking Tobacco: Never Assessed Sex and Gender Information Value Date Recorded Sex Assigned at Not on file Gender Identity Not on file Sexual Orientation Not on file documented as of this encounter Miscellaneous Notes * Telephone Encounter - Nesha Celaya APRN-CNP - 07/04/2015 11:20 AM CDT I returned mother's call at [phone] and emailed school letter from 05/2015 appointment as she requested. documented in this encounter Plan of Treatment Not on file documented as of this encounter Visit Diagnoses Not on filedocumented in this encounter Care Teams Glass Products Inspector Relationship Specialty Start Date End Date Alvarez Prabhakar MD [address] [place] [address] PCP - General 12/12/11 documented as of this encounter
--- OUTSIDE RECORDS SUMMARY | 2024-11-22 05:20 | XMS_ITS | Encounter Summary ---
Author Organization [facility] Address [address] [place] [address] Care Team Providers Care Newspaper Distributor Supervisor Name Role Phone Alvarez Prabhakar MD Primary Care Provider [phone] Encounter Details Date Type Department Care Team (Late st Contact Info) Description 01/26/2019 Orders Only [facility] Pediatrics - Endocrinology [address] [place] [address] Breana Olivas MD Type 1 [...] uncontrolled documented in this encounter Care Teams Newspaper Distributor Supervisor Relationship Specialty Start Date End Date Alvarez Prabhakar MD [address] [place] [address] PCP - General 12/12/11 documented as of this encounter
--- OUTSIDE RECORDS SUMMARY | 2024-11-22 05:20 | XMS_ITS | Encounter Summary ---
Author Organization [facility] Address [address] [facility] [place] [address] Care Team Providers Care Carpentry Professional Name Role Phone Alvarez Prabhakar MD Primary Care Provider Reason for Visit * Reason Onset Date Comments Blood Sugar Problem 05/30/2015 Encounter Details Date Type Department Care Team (Late st Contact Info) Description 05/30/2015 Telephone [facility] Pediatrics - Diabetes Mgmt [facility] [place] [address] Leeanne Croft APRN-CNP Retired Blood Sugar Problem Social History Tobacco Use Types Packs/Day Years Used Date Smoking Tobacco: Never Assessed Sex and Gender Information Value Date Recorded Sex Assigned at Not on file Gender Identity Not on file Sexual Orientation Not on file documented as of this encounter Miscellaneous Notes * Telephone Encounter - Nesha Celaya APRN-CNP - 05/30/2015 9:21 AM CDT I attempted to return parent's call at [phone] re: pump class. I left voicemail message that Iadded them to registration list for 06/05/15 pump class and to call back with number of people attending. documented in this encounter Plan of Treatment Not on file documented as of this encounter Visit Diagnoses Not on filedocumented in this encounter Care Teams Carpentry Professional Relationship Specialty Start Date End Date Alvarez Prabhakar MD [address] [place] [address] PCP - General 12/12/11 documented as of this encounter
--- OUTSIDE RECORDS SUMMARY | 2024-11-22 05:20 | XMS_ITS | Encounter Summary ---
Author Organization [facility] Address [address] [facility] [place] [address] Care Team Providers Care Portfolio Analyst Name Role Phone Alvarez Prabhakar MD Primary Care Provider [phone] Reason for Visit * Reason Onset Date Comments MEDICATION REFILL 08/09/2015 Encounter Details Date Type Department Care Team (Late st Contact Info) Description 08/09/2015 Refill [facility] Pediatrics - Diabetes [id number] [place] [address] Breana Olivas MD MEDICATION REFILL Social History [...] on filedocumented in this encounter Care Teams Portfolio Analyst Relationship Specialty Start Date End Date Alvarez Prabhakar MD [address] [place] [address] PCP - General 12/12/11 documented as of this encounter
--- OUTSIDE RECORDS SUMMARY | 2024-11-22 05:20 | XMS_ITS | Encounter Summary ---
Author Organization [facility] Address [address] [facility] [place] [address] Care Team Providers Care Generation Technician Name Role Phone Alvarez Prabhakar MD Primary Care Provider [phone] Reason for Visit * Reason Onset Date Comments MEDICATION REFILL 08/04/2016 Encounter Details Date Type Department Care Team (Late st Contact Info) Description 08/04/2016 Refill [facility] Pediatrics - Diabetes [facility] [address] [place] [address] Kory Lopez APRN-JOURNEYMAN POWERHOUSE OPERATOR [address] [place] [phone] MEDICATION REFILL Social History Tobacco Use Types [...] documented as of this encounter Care Teams Generation Technician Relationship Specialty Start Date End Date Alvarez Prabhakar MD [address] [place] [phone] PCP - General 12/12/11 documented as of this encounter
--- OUTSIDE RECORDS SUMMARY | 2024-11-22 05:20 | XMS_ITS | Encounter Summary ---
Author Organization [facility] Address [address] [facility] [place] [address] Care Team Providers Care General Dentist Name Role Phone Alvarez Prabhakar MD Primary Care Provider [phone] Reason for Visit * Reason Onset Date Comments Blood Sugar Problem 03/18/2016 Encounter Details Date Type Department Care Team (Late st Contact Info) Description 03/18/2016 Telephone [facility] Pediatrics - Diabetes [facility] [address] [place] [address] Kory Lopez APRN-BOLT THREADER [address] [place] [address] Blood Sugar Problem Social History Tobacco Use [...] Telephone Encounter - Lizeth Garrett RN - 03/18/2016 11:33 AM CDT I returned call from mother to review blood sugars. See doc flowsheets. Recommendations per injection protocol:: Increase Lantus to 8 units Check blood sugar during the night for the next 3 nights in a row. To call back tomorrow if above target again at bedtime tonight. May need to increase dinner. Otherwise call Thursday to review blood sugars. She agreed to plan. documented in this encounter Plan of Treatment Not on file documented as of this encounter Visit Diagnoses Not on filedocumented in this encounter Care Teams General Dentist Relationship Specialty Start Date End Date Alvarez Prabhakar MD [address] [place] [phone] PCP - General 12/12/11 documented as of this encounter
--- OUTSIDE RECORDS SUMMARY | 2024-11-22 05:20 | XMS_ITS | Encounter Summary ---
Author Organization [facility] Address [address] [facility] [place] [address] Care Team Providers Care Ship Scraper Name Role Phone Alvarez Prabhakar MD Primary Care Provider [phone] Reason for Visit * Reason Onset Date Comments MEDICATION REFILL 01/31/2016 Encounter Details Date Type Department Care Team (Late st Contact Info) Description 01/31/2016 Telephone [facility] Pediatrics - Diabetes [id number] [place] [address] Breana Olivas MD MEDICATION REFILL [...] on filedocumented in this encounter Care Teams Ship Scraper Relationship Specialty Start Date End Date Alvarez Prabhakar MD [address] [place] [phone] PCP - General 12/12/11 documented as of this encounter
--- OUTSIDE RECORDS SUMMARY | 2024-11-22 05:20 | XMS_ITS | Encounter Summary ---
Author Organization [facility] Address [address] [place] [address] Care Team Providers Care Value Analyst Name Role Phone Alvarez Prabhakar MD Primary Care Provider [phone] Reason for Visit * Reason Onset Date Comments MEDICATION REFILL 09/14/2017 Encounter Details Date Type Department Care Team (Late st Contact Info) Description 09/14/2017 Refill [facility] Pediatrics - Diabetes [address] [address] Breana Olivas MD MEDICATION REFILL Social History [...] stated as uncontrolled documented in this encounter Additional Health Concerns Infection Onset Date Last Indicated Resolved Time COVID-19 Under Investigation 03/03/2021 03/03/2021 03/03/2021 11:11 AM CDT documented as of this encounter Care Teams Value Analyst Relationship Specialty Start Date End Date Alvarez Prabhakar MD [address] [place] [address] PCP - General 12/12/11 documented as of this encounter
--- OUTSIDE RECORDS SUMMARY | 2024-11-22 05:20 | XMS_ITS | Encounter Summary ---
Author Organization [facility] Address [address] [place] [address] Care Team Providers Care Can Filling Machine Operator Name Role Phone Alvarez Prabhakar MD Primary Care Provider [phone] Reason for Visit * Reason Onset Date Comments MEDICATION REFILL 07/07/2017 Encounter Details Date Type Department Care Team (Late st Contact Info) Description 07/07/2017 Refill [facility] Pediatrics - Diabetes Mgmt [address] [place] [address] Kory Lopez APRN-BEHAVIORAL INTERVENTIONIST [address] [place] [phone] MEDICATION REFILL Social History Tobacco Use Types [...] Telephone Encounter - Lizeth Garrett RN - 07/07/2017 9:06 AM CDT Called home since not seen in clinic since 12/2016 and received refill request for glucagon kits. Assisted family with making a return to clinic appointment. Also asked mother present doses so school can prepare and fax school letter. She stated: Lantus 14 units at bedtime Humalog 0.5:15 Humalog correction is 1every 50>150 max of 4 units Letter faxed to [phone] Glucagon refills sent to MD to approve. documented in this encounter Plan of Treatment [...] documented as of this encounter Care Teams Can Filling Machine Operator Relationship Specialty Start Date End Date Alvarez Prabhakar MD [address] [place] [address] PCP - General 12/12/11 documented as of this encounter
--- OUTSIDE RECORDS SUMMARY | 2024-11-22 05:20 | XMS_ITS | Encounter Summary ---
Author Organization [facility] Address [address] [facility] [place] [address] Care Team Providers Care Director Service Name Role Phone Alvarez Prabhakar MD Primary Care Provider [phone] Reason for Visit * Reason Onset Date Comments MEDICATION REFILL 11/05/2018 Encounter Details Date Type Department Care Team (Late st Contact Info) Description 11/05/2018 Refill [facility] Pediatrics - Diabetes [facility] [address] [place] [address] Kory Lopez APRN-DELIVERY MANAGER [address] [place] [phone] MEDICATION REFILL Social History Tobacco Use Types [...] (HCC) documented in this encounter Care Teams Director Service Relationship Specialty Start Date End Date Alvarez Prabhakar MD [address] [place] [phone] PCP - General 12/12/11 documented as of this encounter
--- OUTSIDE RECORDS SUMMARY | 2024-11-22 05:20 | XMS_ITS | Encounter Summary ---
Author Organization [facility] Address [address] [facility] [place] [address] Care Team Providers Care Fill Technician Name Role Phone Alvarez Prabhakar MD Primary Care Provider [phone] Encounter Details Date Type Department Care Team (Late st Contact Info) Description 09/08/2016 Orders Only [facility] Pediatrics - Diabetes [address] [address] Breana Olivas MD Type 1 [...] (ABNORMAL) HEMOGLOBIN A1C - POCT (IP) ALEXANDRA (09/09/2016 9:11 AM CDT) Hemoglobin A1c POCT 9.8(A) 3.4 - 6.1 % [facility] POCT TESTING QC Verified Yes Yes [facility] PO CT TESTING Blood BLOOD SPECIMEN / Unknown 09/09/2016 9:11 AM CDT Breana Olivas MD LAB - POINT OF CARE ORDERABLES [facility] POCT [place] [address], [facility] [phone] * (ABNORMAL) LIPID PROFILE (09/09/2016 9:10 AM CDT) Cholesterol 180(H) <170 mg/dL 09/09/2016 9:41 AM CDT [facility] Triglycerides 255 42 - 330 mg/dL 09/09/2016 9:41 AM CDT [facility] HDL Cholesterol 65 >40 mg/dL 6 9:41 AM CDT [facility] LDL Calculated 64 <100 mg/dL 09/09/2016 9:41 AM T [facility] VLDL Calculated 51(H) 12 - 38 mg/dL 09/09/2016 9:41 AM T [facility] Chol HDL Ratio 2.8 <=5.0 09/09/2016 9:41 AM CDT [facility] Blood BLOOD SPECIMEN / Unknown 09/09/2016 9:10 AM CDT 09/09/2016 9:16 AM CDT Narrative [facility] - 09/09/2016 9:41 AM CDT Lipid Profile Comment: Adult references ranges are the recommendation of the [employer] , for those patients >18 [...] - CHEMISTRY ORDE RABLES Performing Organization Address [facility] Co de Phone Number [facility] [address] [place] [address] * (ABNORMAL) MICROALB/CREAT RATIO URINE RANDOM PANEL (09/09/2016 9:09 AM CDT) Creatinine Urine 12.91 mg/dL 09/09/20 16 9:53 AM T [facility] Microalbumin Urine <0.5 <1.7 mg/dL 09/09/2016 9:53 AM T [facility] Microalbumin/Crea tinine Ratio <39(H) <30 mg/g 09/09/2016 9:53 AM T [facility] Comment:Not Calculated Urine URINE SPECIMEN OBTAINED BY CLEAN CATCH PROCEDURE / Unknown 09/09/2016 9:09 AM CDT 09/09/2016 9:16 AM CDT Breana Olivas MD LAB - URINE CHEMISTR Y ORDERABLES Performing Organization Address [facility] de Phone Number [facility] [address] [place] [phone] documented in this encounter Visit Diagnoses Diagnosis Type 1 diabetes mellitus without complication (HCC)- Primary Type I (juvenile type) diabetes mellitus without mention of complication, not stated as uncontrolled documented in this encounter Care Teams Fill Technician Relationship Specialty Start Date End Date Alvarez Prabhakar MD [address] [place] [address] PCP - General 12/12/11 documented as of this encounter
--- OUTSIDE RECORDS SUMMARY | 2024-11-22 05:20 | XMS_ITS | Encounter Summary ---
Author Organization [facility] Address [address] [facility] [place] [address] Care Team Providers Care Charging Manipulator Name Role Phone Alvarez Prabhakar MD Primary Care Provider [phone] Encounter Details Date Type Department Care Team (Late st Contact Info) Description 11/06/2017 Orders Only [facility] Pediatrics - Endocrinology [address] [place] [address] Breana Olivas MD Type 1 diabetes mellitus [...] uncontrolled documented in this encounter Care Teams Charging Manipulator Relationship Specialty Start Date End Date Alvarez Prabhakar MD [address] [place] [phone] PCP - General 12/12/11 documented as of this encounter
--- OUTSIDE RECORDS SUMMARY | 2024-11-22 05:20 | XMS_ITS | Encounter Summary ---
Author Organization [facility] Address [address] [facility] [address] Care Team Providers Care Merchandising Execution Associate Name Role Phone Alvarez Prabhakar MD Primary Care Provider [phone] Encounter Details Date Type Department Care Team (Late st Contact Info) Description 10/23/[address] [facility] Pediatrics - Endocrinology [address] [place] [address] Breana Olivas MD Type 1 diabetes mellitus [...] uncontrolled documented in this encounter Care Teams Merchandising Execution Associate Relationship Specialty Start Date End Date Alvarez Prabhakar MD [address] [place] [phone] PCP - General 12/12/11 documented as of this encounter
--- OUTSIDE RECORDS SUMMARY | 2024-11-22 05:20 | XMS_ITS | Encounter Summary ---
Author Organization [facility] Address [address] [facility] [place] [address] Care Team Providers Care Credit Card Control Clerk Name Role Phone Alvarez Prabhakar MD Primary Care Provider [phone] Reason for Visit * Reason Onset Date Comments Blood Sugar Problem 06/18/2015 Encounter Details Date Type Department Care Team (Late st Contact Info) Description 06/18/2015 Telephone [facility] Pediatrics - Diabetes Mgmt [address] [place] [address] Kory Lopez APRN-CNP [address] [place] [phone] Blood Sugar Problem Social History Tobacco Use Types Packs/Day Years Used Date Smoking Tobacco: Never Assessed Sex and Gender Information Value Date Recorded Sex Assigned at Not on file Gender Identity Not on file Sexual Orientation Not on file documented as of this encounter Miscellaneous Notes * Telephone Encounter - Nesha Celaya APRN-CNP - 06/18/2015 1:48 PM CDT I attempted to return mother's call re: Dexcom request at [phone] and no answer. Left voice mail message to call Endocrinology office. documented in this encounter Plan of Treatment Not on file documented as of this encounter Visit Diagnoses Not on filedocumented in this encounter Care Teams Credit Card Control Clerk Relationship Specialty Start Date End Date Alvarez Prabhakar MD [address] [place] [address] PCP - General 12/12/11 documented as of this encounter
--- OUTSIDE RECORDS SUMMARY | 2024-11-22 05:20 | XMS_ITS | Encounter Summary ---
Author Organization [facility] Address [address] [place] [address] Care Team Providers Care Propulsion Systems Engineer Name Role Phone Alvarez Prabhakar MD Primary Care Provider [phone] Encounter Details Date Type Department Care Team (Late st Contact Info) Description 11/24/2019 Telephone [facility] Pediatrics - Diabetes [address] [place] [address] Breana Olivas MD Social History Tobacco [...] Telephone Encounter - Linda Torres RN - 11/24/2019 5:37 PM CST We received a request from [employer] regarding Vicoria's Novolog pen fill and that Humalog is actually the preferred brand per insurance. Called Stormy @ [phone] - [facility] for family to call back. RICT PLANT ENGINEER documented in this encounter Plan of Treatment Not on file documented as of this encounter Visit Diagnoses Not on filedocumented in this encounter Additional Health Concerns Infection Onset Date Last Indicated Resolved Time COVID-19 Under Investigation 03/03/2021 03/03/2021 03/03/2021 11:11 AM CDT documented as of this encounter Care Teams Propulsion Systems Engineer Relationship Specialty Start Date End Date Alvarez Prabhakar MD [address] [place] [address] PCP - General 12/12/11 documented as of this encounter
--- OUTSIDE RECORDS SUMMARY | 2024-11-22 05:20 | XMS_ITS | Encounter Summary ---
Author Organization [facility] Address [address] [facility] [place] [address] Care Team Providers Care Mine Safety Engineer Name Role Phone Alvarez Prabhakar MD Primary Care Provider [phone] Encounter Details Date Type Department Care Team (Late st Contact Info) Description 07/13/2017 Orders Only [facility] Pediatrics - Endocrinology [address] [place] [address] Breana Olivas MD Uncontrolled type 1 diabetes mellitus without complication Social History Tobacco Use Types Packs/Day Years [...] A1c POCT 9.6(A) 3.4 - 6.1 % [facility] POCT TESTING QC Verified Yes Yes [facility] PO CT TESTING Blood BLOOD SPECIMEN / Unknown 07/14/2017 10:27 AM CDT Breana Olivas MD LAB - POINT OF CARE ORDERABLES [facility] POCT TESTING [address] [place], [place] [id number] [place] [address] documented in this encounter Visit Diagnoses Diagnosis Uncontrolled type 1 diabetes mellitus without complication- Primary documented in this encounter Care Teams Mine Safety Engineer Relationship Specialty Start Date End Date Alvarez Prabhakar MD [address] [place] [address] PCP - General 12/12/11 documented as of this encounter
--- OUTSIDE RECORDS SUMMARY | 2024-11-22 05:20 | XMS_ITS | Encounter Summary ---
Author Organization [facility] Address [address] [facility] [place] [address] Care Team Providers Care Predatory Animal Exterminator Name Role Phone Alvarez Prabhakar MD Primary Care Provider [phone] Reason for Visit * Reason Onset Date Comments MEDICATION REFILL 04/21/2017 Encounter Details Date Type Department Care Team (Late st Contact Info) Description 04/21/2017 Refill [facility] Pediatrics - Diabetes [facility] [address] [place] [address] Kory Lopez APRN-WASTE PAPER HAMMERMILL OPERATOR [address] [place] [phone] MEDICATION REFILL Social History Tobacco Use Types [...] on filedocumented in this encounter Care Teams Predatory Animal Exterminator Relationship Specialty Start Date End Date Alvarez Prabhakar MD [address] [place] [address] PCP - General 12/12/11 documented as of this encounter
--- OUTSIDE RECORDS SUMMARY | 2024-11-22 05:20 | XMS_ITS | Encounter Summary ---
Author Organization [facility] Address [address] [facility] [place] [address] Care Team Providers Care Staff Certified Nurse Midwife Name Role Phone Alvarez Prabhakar MD Primary Care Provider [phone] Reason for Visit * Reason Onset Date Comments Blood Sugar Problem 03/26/2015 Encounter Details Date Type Department Care Team (Late st Contact Info) Description 03/26/2015 Telephone [facility] Pediatrics - Diabetes Mgmt [address] [place] [address] Kory Lopez APRN-TRUCK RAILROAD AND BUS MOTOR MECHANIC 1 [place] [address] Blood Sugar Problem Social History Tobacco Use Types Packs/Day Years Used Date Smoking Tobacco: Never Assessed Sex and Gender Information Value Date Recorded Sex Assigned at Not on file Gender Identity Not on file Sexual Orientation Not on file documented as of this encounter Miscellaneous Notes * Telephone Encounter - Lizeth Garrett RN - 03/26/2015 2:30 PM CDT I attempted to contact grandmother but got voicemail and left message to call office. Called schoolto notify nurse was unable to reach grandmother. She was unable to speak with grandmother as well. I told her she must talk with parent to verify plans for care and see if did if fact get Lantus lastnight. If did not must give as soon as possible and notify family that cannot get again ivan cookjackie need to change time given. Nurse Carlita Meléndez made aware of this. She is to call mother. * Telephone Encounter - Lizeth Garrett RN - 03/26/2015 2:26 PM CDT Called grandmother's home to speak with Xochilt Chase grandmother to discuss if child got Lantus last night. [phone]. Left message to call office. * Telephone Encounter - Lizeth Garrett RN - 03/26/2015 2:00 PM CDT Nurse Zazueta calling to report blood sugar elevated. [phone] [id number]. Diabetes Sick Call Patient: Anaid Dimas Date: 03/26/2015 Current Blood Glucose: 439 at 1220 and 432 at 1130 and now 355 Current Ketone result: negative and ketones are negative now Last insulin given: Humalog: Dose 4 units Time 1220 Lantus: unsure if did not get Lantus at home last night. Symptoms: none Recent Illness: none Plan: Push sugar free fluid. Recheck blood glucose and urine ketones every 2 two hours. Call grandmother Xochilt Chase [phone] and tell her to call office to find out if she did give child her Lantus last night and if not should get now and then will need to adjust dose to get back on schedule. Nurse to call grandmother and have her call office. Will call grandmother if no call to diabetes office. Followed sick day protocol Miscellaneous: mother out of town and she is staying with grandmother presently. Child states at this time she does not feel documented in this encounter Plan of Treatment Not on file documented as of this encounter Visit Diagnoses Not on filedocumented in this encounter Care Teams Staff Certified Nurse Midwife Relationship Specialty Start Date End Date Alvarez Prabhakar MD [address] [place] [address] PCP - General 12/12/11 documented as of this encounter
--- OUTSIDE RECORDS SUMMARY | 2024-11-22 05:20 | XMS_ITS | Encounter Summary ---
Author Organization [facility] Address [address] [facility] [address] Care Team Providers Care President & Ceo Name Role Phone Alvarez Prabhakar MD Primary Care Provider [phone] Reason for Visit * Reason Onset Date Comments MEDICATION REFILL 07/14/2017 Encounter Details Date Type Department Care Team (Late st Contact Info) Description 07/14/2017 Refill [facility] Pediatrics - Endocrinology [address] [place] [address] Breana Olivas MD MEDICATION REFILL Social History [...] documented as of this encounter Care Teams President & Ceo Relationship Specialty Start Date End Date Alvarez Prabhakar MD [address] [place] [address] PCP - General 12/12/11 documented as of this encounter
--- OUTSIDE RECORDS SUMMARY | 2024-11-22 05:20 | XMS_ITS | Encounter Summary ---
Author Organization [facility] Address [address] [facility] [place] [address] Care Team Providers Care Sugar Refiner Name Role Phone Alvarez Prabhakar MD Primary Care Provider [phone] Reason for Visit * Reason Onset Date Comments Blood Sugar Problem 11/05/2015 Encounter Details Date Type Department Care Team (Late st Contact Info) Description 11/05/2015 Telephone [facility] Pediatrics - Diabetes Mgmt [address] [place] [address] Kory Lopez APRN-REFRIGERATION ENGINEER [address] [place] [phone] Blood Sugar Problem Social History Tobacco Use [...] Telephone Encounter - Gracie Cee RN - 11/26/2015 3:43 PM PATIENT SUPPORT REPRESENTATIVE Mother called to notify the office that she no longer has insurance for An[employer]. She is applying for Medicaid. I asked her to call when she finds out if An[employer] qualifies or not. If not we will provide her with information on patient assistance programs. Mother to come to clinic 11/27/15 for samples. ENT SUPPORT REPRESENTATIVE * Telephone Encounter - Gracie Cee RN - 11/14/2015 10:00 AM PATIENT SUPPORT REPRESENTATIVE Received fax from school with [employer] . Called mother to review. No answer. Left voicemail to call office for a review. ENT SUPPORT REPRESENTATIVE * Telephone Encounter - Lizeth Garrett RN - 11/05/2015 4:28 PM CST Returned nurse's call regarding blood sugars running high. See doc flowsheets. I then called mother's number to clarify. She is not home so she does not have blood sugars to review. I asked her to call office to review blood sugars tomorrow. Also want to clarify correction since school is administering 0.5 unit for every 50 >200 and last clinic visit noted correction as 1 for every 100 > 200. Mother to call tomorrow. ENT SUPPORT REPRESENTATIVE documented in this encounter Plan of Treatment Not on file documented as of this encounter Visit Diagnoses Not on filedocumented in this encounter Additional Health Concerns Infection Onset Date Last Indicated Resolved Time COVID-19 Under Investigation 03/03/2021 03/03/2021 03/03/2021 11:11 AM CDT documented as of this encounter Care Teams Sugar Refiner Relationship Specialty Start Date End Date Alvarez Prabhakar MD [address] [place] [address] PCP - General 12/12/11 documented as of this encounter
--- OUTSIDE RECORDS SUMMARY | 2024-11-22 05:20 | XMS_ITS | Encounter Summary ---
Author Organization [facility] Address [address] [facility] [place] [address] Care Team Providers Care Program Instructor Name Role Phone Alvarez Prabhakar MD Primary Care Provider Reason for Visit * Reason Onset Date Comments MEDICATION REFILL 04/12/2018 Encounter Details Date Type Department Care Team (Late st Contact Info) Description 04/12/2018 Telephone [facility] Pediatrics - [facility] [address] [place] [address] Nesha Celaya APRN-[facility] [address] [place] [address] MEDICATION REFILL Social History Tobacco Use Types [...] uncontrolled documented in this encounter Care Teams Program Instructor Relationship Specialty Start Date End Date Alvarez Prabhakar MD [address] [place] [phone] PCP - General 12/12/11 documented as of this encounter
--- OUTSIDE RECORDS SUMMARY | 2024-11-22 05:20 | XMS_ITS | Encounter Summary ---
Author Organization [facility] Address [address] [place] [place] [address] Care Team Providers Care Carry Out Clerk And Shelf Stocker Name Role Phone Alvarez Prabhakar MD Primary Care Provider Reason for Visit * Reason Onset Date Comments Blood Sugar Problem 02/04/2016 Encounter Details Date Type Department Care Team (Late st Contact Info) Description 02/04/2016 Telephone [facility] Pediatrics - Diabetes [id number] [place] [address] Breana Olivas MD Blood Sugar Problem Social [...] Telephone Encounter - Lizeth Garrett RN - 02/04/2016 11:13 AM CDT Called school and spoke with Nurse Meléndez [phone]. Called mother back after speaking with nurseto notify of events of call. Diabetes Sick Call Patient: Anaid Dimas Date: 02/04/2016 Current Blood Glucose: 458 Current Ketone result: small to moderate Last insulin given: Humalog: Dose 4 units Time 0830 Lantus: Dose 5.5 units Time 2200 by mother Symptoms: nurse denied symptoms when asked. Asked her if child was tired and she states child told her she was bored in class. Recent Illness: cold Plan: Push sugar free fluid. Recheck blood glucose and urine ketones prior to lunch. If moderate to large ketones or vomits onceto call back immediately. If ketones are less than moderate to give normal correction. Followed sick day protocol * Telephone Encounter - Lizeth Garrett RN - 02/04/2016 11:01 AM CDT Mother calling in to report Anaid in in school nurse office with blood sugar of 485 and moderateketones. scho Diabetes Sick Call Patient: Anaid Dimas Date: 02/04/2016 Current Blood Glucose: 485 15 minutes ago per mother. Per mother she was 159 this am. Current Ketone result: moderate Last insulin given: Humalog: Dose 4 units Time a bowl of cereal at 0830 Lantus: Dose 5.5 units Time 2200 given by mother Symptoms: not feeling well. Unsure of any other symptoms. Recent Illness: has had a cold but not required medicine for symptoms. Plan: Mother gave permission for me to call nurse directly in order to assess child. Miscellaneous: Mother calling but Anaid at school and mother gave permission for me to call nurse. [phone]. Followed sick day protocol documented in this encounter Plan of Treatment Not on file documented as of this encounter Visit Diagnoses Not on filedocumented in this encounter Additional Health Concerns Infection Onset Date Last Indicated Resolved Time COVID-19 Under Investigation 03/03/2021 03/03/2021 03/03/2021 11:11 AM CDT documented as of this encounter Care Teams Carry Out Clerk And Shelf Stocker Relationship Specialty Start Date End Date Alvarez Prabhakar MD [address] [place] [phone] PCP - General 12/12/11 documented as of this encounter
--- OUTSIDE RECORDS SUMMARY | 2024-11-22 05:20 | XMS_ITS | Encounter Summary ---
Author Organization [facility] Address [address] [facility] [place] [address] Care Team Providers Care Lens Grinding Machine Operator Name Role Phone Alvarez Prabhakar MD Primary Care Provider [phone] Reason for Visit * Reason Onset Date Comments MEDICATION REFILL 04/12/2018 Encounter Details Date Type Department Care Team (Late st Contact Info) Description 04/12/2018 Refill [facility] Pediatrics - Diabetes [address] [place] [address] Breana Olivas MD MEDICATION REFILL Social History [...] uncontrolled documented in this encounter Care Teams Lens Grinding Machine Operator Relationship Specialty Start Date End Date Alvarez Prabhakar MD [address] [place] [address] PCP - General 12/12/11 documented as of this encounter
--- OUTSIDE RECORDS SUMMARY | 2024-11-22 05:20 | XMS_ITS | Encounter Summary ---
Author Organization [facility] Address [address] [facility] [facility] [place] [address] Care Team Providers Care Anodizing Line Operator Name Role Phone Alvarez Prabhakar MD Primary Care Provider [phone] Encounter Details Date Type Department Care Team (Late st Contact Info) Description 10/10/2019 Orders Only [facility] Pediatrics - Endocrinology [address] [place] [address] Breana Olivas MD Type [...] uncontrolled documented in this encounter Care Teams Anodizing Line Operator Relationship Specialty Start Date End Date Alvarez Prabhakar MD [address] [place] [address] PCP - General 12/12/11 documented as of this encounter
--- OUTSIDE RECORDS SUMMARY | 2024-11-22 05:20 | XMS_ITS | Encounter Summary ---
Author Organization [facility] Address [address] [facility] [place] [address] Care Team Providers Care Dictating Machine Transcriber Name Role Phone Alvarez Prabhakar MD Primary Care Provider [phone] Encounter Details Date Type Department Care Team (Late st Contact Info) Description 06/26/2019 Orders Only [facility] Pediatrics - Diabetes [address] [address] Breana Olivas MD Type 1 [...] mellitus without complication (HCC) 1 Occurrences starting 06/26/2019 until 06/20/2020 documented as of this encounter Results * MICROALB/CREAT RATIO URINE RANDOM PANEL (07/11/2019 10:08 AM CDT) Creatinine Urine 89.51 mg/dL 07/11/20 11:13 AM T [facility] Microalbumin Urine 0.7 <1.7 mg/dL 07/11/2019 11:13 AM T [facility] Microalbumin/Crea tinine Ratio 8 <30 mg/g 07/11/2019 11:13 AM T [facility] Urine URINE SPECIMEN OBTAINED BY CLEAN CATCH PROCEDURE / Unknown Collection / Unknown 07/11/2019 10:08 AM CDT 07/11/2019 10:31 AM T Breana Olivas MD LAB - URINE CHEMISTR Y ORDERABLES Performing Organization Address City/State/[facility] Co de Phone Number [facility] [address] [place] [address] documented in this encounter Visit Diagnoses Diagnosis Type 1 diabetes mellitus without complication (HCC)- Primary Type I (juvenile type) diabetes mellitus without mention of complication, not stated as uncontrolled documented in this encounter Care Teams Dictating Machine Transcriber Relationship Specialty Start Date End Date Alvarez Prabhakar MD [address] [place] [address] PCP - General 12/12/11 documented as of this encounter
--- OUTSIDE RECORDS SUMMARY | 2024-11-22 05:20 | XMS_ITS | Encounter Summary ---
Author Organization [facility] Address [address] [facility] [place] [address] Care Team Providers Care Regional Transfer Liaison Name Role Phone Alvarez Prabhakar MD Primary Care Provider [phone] Reason for Visit * Reason Onset Date Comments Blood Sugar Problem 10/09/2016 Encounter Details Date Type Department Care Team (Late st Contact Info) Description 10/09/2016 Telephone [facility] Pediatrics - Diabetes Mgmt [address] [place] [address] Kory Lopez APRN-REVIEW NURSE [address] [place] [phone] Blood Sugar Problem Social History Tobacco Use [...] Telephone Encounter - Lizeth Garrett RN - 10/09/2016 9:10 AM CST Mother calling to report Anaid is at school and was with grandmother this am and grandmother reports she rushed out before getting insulin for cereal and Anaid reports same history per mother. Now at school blood sugar is HI with trace ketones. Diabetes Sick Call Patient: Anaid Dimas Date: 10/09/2016 Current Blood Glucose: hi Current Ketone result: trace Last insulin given: Humalog: Dose last dose last night at dinner Lantus: Dose 11 units Time last night between 6867-4008 given by self with mother stating grandmother supervises. Symptoms: none Recent Illness: none Plan: Give 3 units correction in addition to insulin for small snack now with syringe. Push sugar free fluid. Recheck blood glucose and urine ketones in two hours. Call back if moderate to large ketones or vomits once or concerns. Followed sick day protocol L INSPECTOR PAPER documented in this encounter Plan of Treatment Not on file documented as of this encounter Visit Diagnoses Not on filedocumented in this encounter Additional Health Concerns Infection Onset Date Last Indicated Resolved Time COVID-19 Under Investigation 03/03/2021 03/03/2021 03/03/2021 11:11 AM CDT documented as of this encounter Care Teams Regional Transfer Liaison Relationship Specialty Start Date End Date Alvarez Prabhakar MD [address] [place] [phone] PCP - General 12/12/11 documented as of this encounter
--- OUTSIDE RECORDS SUMMARY | 2024-11-22 05:20 | XMS_ITS | Encounter Summary ---
Author Organization [facility] Address [address] [facility] [facility] [place] [address] Care Team Providers Care Recorder Gravity Prospecting Name Role Phone Alvarez Prabhakar MD Primary Care Provider [phone] Reason for Visit * Reason Onset Date Comments MEDICATION REFILL 03/10/2018 Encounter Details Date Type Department Care Team (Late st Contact Info) Description 03/10/2018 Refill [facility] Pediatrics - Diabetes [facility] [address] [place] [address] Kory Lopez APRN-SIDE SPLITTER [address] [place] [phone] MEDICATION REFILL Social History Tobacco Use Types [...] on filedocumented in this encounter Care Teams Recorder Gravity Prospecting Relationship Specialty Start Date End Date Alvarez Prabhakar MD [address] [place] [address] PCP - General 12/12/11 documented as of this encounter
--- OUTSIDE RECORDS SUMMARY | 2024-11-22 05:20 | XMS_ITS | Encounter Summary ---
Author Organization [facility] Address [address] [facility] [place] [address] Care Team Providers Care Thermal Engineer Name Role Phone Alvarez Prabhakar MD Primary Care Provider [phone] Reason for Visit * Reason Comments Refill Request Encounter Details Date Type Department Care Team (Late st Contact Info) Description 05/12/2019 Refill [facility] Pediatrics - Diabetes [address] [address] Breana Olivas MD Refill Request Social History [...] on filedocumented in this encounter Care Teams Thermal Engineer Relationship Specialty Start Date End Date Alvarez Prabhakar MD [address] [place] [address] PCP - General 12/12/11 documented as of this encounter
--- OUTSIDE RECORDS SUMMARY | 2024-11-22 05:20 | XMS_ITS | Encounter Summary ---
Author Organization [facility] Address [address] [facility] [place] [address] Care Team Providers Care Netsuite Developer Name Role Phone Alvarez Prabhakar MD Primary Care Provider Reason for Visit * Reason Onset Date Comments MEDICATION REFILL 07/10/2015 Encounter Details Date Type Department Care Team (Late st Contact Info) Description 07/10/2015 Refill [facility] Pediatrics - Diabetes [facility] [address] [place] [address] Leeanne Croft, TRANSPLANT NURSE PRACTITIONER-TRANSITION SPECIALIST Retired MEDICATION REFILL Social History Tobacco Use Types [...] documented as of this encounter Care Teams Netsuite Developer Relationship Specialty Start Date End Date Alvarez Prabhakar MD [address] [place] [address] PCP - General 12/12/11 documented as of this encounter
--- OUTSIDE RECORDS SUMMARY | 2024-11-22 05:20 | XMS_ITS | Encounter Summary ---
Author Organization [facility] Address [address] [facility] [place] [address] Care Team Providers Care Manager Long Term Care Name Role Phone Alvarez Prabhakar MD Primary Care Provider [phone] Encounter Details Date Type Department Care Team (Late st Contact Info) Description 03/24/2017 Orders Only [facility] Pediatrics - Endocrinology [address] [place] [address] Breana Olivas MD Type 1 diabetes mellitus [...] uncontrolled documented in this encounter Care Teams Manager Long Term Care Relationship Specialty Start Date End Date Alvarez Prabhakar MD [address] [place] [address] PCP - General 12/12/11 documented as of this encounter
--- OUTSIDE RECORDS SUMMARY | 2024-11-22 05:20 | XMS_ITS | Encounter Summary ---
Author Organization [facility] Address [address] [facility] [place] [address] Care Team Providers Care Quality Assurance Group Leader Name Role Phone Alvarez Prabhakar MD Primary Care Provider [phone] Reason for Visit * Reason Comments Diabetes Encounter Details Date Type Department Care Team (Latest Contact Info) Description 12/25/2016 1:30 PM SURVEY COORDINATOR - 12/25/2016 11:59 PM SURVEY COORDINATOR Hospital Encounter [facility] Pediatrics - Diabetes Mgmt [facility] [place] [address] Breana Olivas MD Discharge Disposition: Home or [...] Sign Reading Time Taken Comments Blood Pressure 104/60 12/25/2016 1:38 PM SURVEY COORDINATOR Pulse - - Temperature - - Respiratory Rate - - Oxygen Saturation - - Inhaled Oxygen Concentration - - Weight 40.1 kg (88 lb 6.5 oz) 12/25/2016 1:38 PM SURVEY COORDINATOR Height 150.8 cm (4' 11.37 ) 12/25/2016 1:[address] Body Mass Index 17.63 12/25/2016 1:38 PM SURVEY COORDINATOR Body Mass Index Percentile 41.21% 12/25/2016 1:3 8 PM SURVEY COORDINATOR Growth Chart: [facility] (Girls, 2- 20 Years) documented in this encounter Discharge Instructions * Patient Instructions* Breana Olivas MD - 12/25/2016 2:49 PM SURVEY COORDINATOR Increase the Lantus dose to 13 Units. Needs adult supervision to make sure she gets Humalog for all snacks. EY COORDINATOR documented in this encounter Medications at Time [...] 11 10/14/2016 11/02/2017 glucagon (GLUCAGON EMERGENCY) injectionIndications :Diabetes mellitus type [...] Progress Notes * Breana Olivas MD - 12/25/2016 2:03 PM CST Images from the original note were not included. Anaid Dimas and her mother were seen in our Pediatric Endocrinology offices on 12/25/16. She rosaura 11 y.o. 2 m.o. AA girl who is followed for type 1 diabetes diagnosed in 08/04. Interval History: Healthy since last seen in August other than a treated ingrown toenail. No severe hypoglycemia or ketonuria. Cared for by grandparents after school and spends every other weekend with her father. Diabetes Therapies: Lantus 12 Units qhs; Humalog 1/2 Unit: 15 grams, correction 1 Unit: 50/150. Anaid and her caretakers give her injections in the extremities and abdomen. Average daily insulin dose estimated at ~47 units. Current Prescriptions: ??? insulin lispro (HUMALOG) 100 UNIT/ML cartridge Inject 1 unit for every 18-20 grams carbohydrateor as directed. ??? insulin glargine (LANTUS) vial Inject 7.5 Units subcutaneously at bedtime ??? blood glucose (ACCU-CHEK SMARTVIEW) test strip Use for blood glucose monitoring 4-6 times/day. ??? HUMAPEN LUXURA HD device Use to administer Humalog as directed. ??? ACCU-CHEK FASTCLIX LANCETS Use for blood glucose monitoring 4-6 times/day. ??? Insulin Syringe-Needle U-100 (BD INSULIN SYRINGE ULTRAFINE) 31G X 15/64 0.3 ML syringe Use forinjection daily. ??? acetone,urine, (KETOSTIX) strip Use as directed for urine ketone checks if blood sugar above 200 or if ill. Dispense one bottle for school and one for home. ??? Insulin Pen Needle (BD PEN NEEDLE [...] is on a carb- counting meal plan, eatinghigh-carb meals. Anaid Dimas last saw our product merchandiser in February with a quick visit today. Sports/Physical Exercise: P.E. and outside play Blood Glucose Monitoring: Anaid Dimas's glucose monitoring is done 4-5 x daily using an Accu-Chek Drake with a target range of 80-150; home meter and school logbook available for examination: Breakfast Lunch Dinner Bedtime Overnight Other Range [phone] 71-320 Low/in range/high 0/2/9 2/3/3 0/3/7 Comments Per ADA guidelines, people with type [...] her hypoglycemia when her blood sugar is <70-80, characterized by shaking and sweating. Treatment is adequate and injectable glucagon is available. Urine Ketone Monitoring: Yes, when glucose >250 and ill. Review of Systems: General: good energy and big appetite Skin: negative Eyes: no complaints, still due for an eye exam ENT: brushes teeth daily, sees dentist Respiratory: negative GI: lactose intolerant : enuresis 3-4 x weekly, frequent nocturia Neurologic: no h/o seizure(s) Psychiatric: negative Endocrine: remains premenarchal All other systems reviewed and were negative. Past Medical History: I have reviewed the patient's medical, surgical, social and family history and there are no changes. Average student in 6th grade at [employer]. Physical Examination: BP 104/60 Ht 1.508 m (4' 11.37 ) Wt 40.1 kg (88 lb 6.5 oz) BMI 17.63 kg/m2 38 %ile (Z= -0.30) based on CDC 2-20 Years isnoxe-ckh-pit data using vitals from 12/25/2016. 40 %ile (Z= -0.24) based on CDC 2-20 Years nnitxoo-mwr-qln data using vitals from 12/25/2016. Body mass index is 17.63 kg/(m^2). 41 %ile (Z= -0.22) based on CDC 2-20 Years BMI-for-age data using vitals from 12/25/2016. General: Well-appearing, slim, pleasant preteen. Skin/Hair/Nails: Warm and dry. Insulin lipohypertrophy on the left arm. No observable rashes other than mild acne. Eyes: Sclerae clear, PERRLA, EOMs intact; no abnormal fundoscopic findings. Dentition: Good hygiene. Neck: Supple. Thyroid not enlarged. Chest: [...] light touch and vibration. ID Tag Status: Usually wears Laboratory Data: Hospital Encounter on 12/25/16 HEMOGLOBIN A1C - POCT (IP) BEAKER Result Value Ref Range Hgb A1C POCT 9.4 (Abnormal) 3.4 - 6.1 % QC Verified Yes Yes Assessment: Type 1 diabetes of 4 years' duration under loose control No known diabetes complications or co-morbidities Management Plan: Suggested changes in diabetes regimen: 1. Increase the Lantus dose to 13 Units. 2. Adults to make sure snacks covered by insulin. Brief consultation done with Mar Mcrae RD. Anaid is interested in a pump; neither her mother nor I feel she is ready. Return visit in 3 months. Of the 40 minutes I spent with the family, >50% were spent discussing diabetes management. Breana Olivas MD [phone] CC: Alvarez Prabhakar MD [address] [place] [address] [address] [place] [id number] Date: 12/25/2016 2:03 PM EY COORDINATOR documented in this encounter Plan of Treatment Not on file documented as of this encounter Procedures Procedure Name Priority Date/Time Associated Diagnosis Comments HEMOGLOBIN A1C - POCT (IP) BEAKER Routine 12/25/2016 1:43 PM SURVEY COORDINATOR Type 1 diabetes mellitus without complication (HCC) documented in this encounter Results * (ABNORMAL) HEMOGLOBIN A1C - POCT (IP) BEAKER (12/25/2016 1:43 PM SURVEY COORDINATOR) Hemoglobin A1c POCT 9.4(A) 3.4 - 6.1 % [facility] POCT TESTING QC Verified Yes Yes [facility] PO CT TESTING Blood BLOOD SPECIMEN / Unknown 12/25/2016 1:43 PM SURVEY COORDINATOR Breana Olivas MD LAB - POINT OF CARE ORDERABLES [facility] POCT TESTING [address] [phone] documented in this encounter Visit Diagnoses Diagnosis Type 1 diabetes mellitus without complication (HCC) Type I (juvenile type) diabetes mellitus without mention of complication, not stated as uncontrolled Uncontrolled type 1 diabetes mellitus without complication documented in this encounter Care Teams Quality Assurance Group Leader Relationship Specialty Start Date End Date Alvarez Prabhakar MD [address] [place] [phone] PCP - General 12/12/11 documented as of this encounter
--- OUTSIDE RECORDS SUMMARY | 2024-11-22 05:20 | XMS_ITS | Encounter Summary ---
Author Organization [facility] Address [address] [facility] [place] [address] Care Team Providers Care Correctional Probation Officer Name Role Phone Alvarez Prabhakar MD Primary Care Provider Encounter Details Date Type Department Care Team (Late st Contact Info) Description 07/16/2018 Orders Only [facility] Pediatrics - Endocrinology [address] [place] [address] Breana Olivas MD Type 1 diabetes mellitus [...] uncontrolled documented in this encounter Care Teams Correctional Probation Officer Relationship Specialty Start Date End Date Alvarez Prabhakar MD [address] [place] [phone] PCP - General 12/12/11 documented as of this encounter
--- OUTSIDE RECORDS SUMMARY | 2024-11-22 05:20 | XMS_ITS | Encounter Summary ---
Author Organization [facility] Address [address] [facility] [place] [address] Care Team Providers Care Kitchen Work Supervisor Name Role Phone Alvarez Prabhakar MD Primary Care Provider [phone] Encounter Details Date Type Department Care Team (Late st Contact Info) Description 12/10/2015 Orders Only [facility] Pediatrics - Diabetes [facility] [address] [place] [address] Breana Olivas MD Type 1 [...] uncontrolled documented in this encounter Care Teams Kitchen Work Supervisor Relationship Specialty Start Date End Date Alvarez Prabhakar MD [address] [place] [phone] PCP - General 12/12/11 documented as of this encounter
--- OUTSIDE RECORDS SUMMARY | 2024-11-22 05:20 | XMS_ITS | Encounter Summary ---
Author Organization [facility] Address [address] [facility] [place] [address] Care Team Providers Care Unit Trust Manager Name Role Phone Alvarez Prabhakar MD Primary Care Provider [phone] Reason for Visit * Reason Onset Date Comments MEDICATION REFILL 11/02/2017 Encounter Details Date Type Department Care Team (Late st Contact Info) Description 11/02/2017 Refill [facility] Pediatrics - Diabetes [address] [address] Breana Olivas MD MEDICATION REFILL Social History [...] of insulin (HCC) documented in this encounter Additional Health Concerns Infection Onset Date Last Indicated Resolved Time COVID-19 Under Investigation 03/03/2021 03/03/2021 03/03/2021 11:11 AM CDT documented as of this encounter Care Teams Unit Trust Manager Relationship Specialty Start Date End Date Alvarez Prabhakar MD [address] [place] [address] PCP - General 12/12/11 documented as of this encounter
--- OUTSIDE RECORDS SUMMARY | 2024-11-22 05:20 | XMS_ITS | Encounter Summary ---
Author Organization [facility] Address [address] [place] [address] Care Team Providers Care Florist Supplies Salesperson Name Role Phone Alvarez Prabhakar MD Primary Care Provider [phone] Reason for Visit * Reason Onset Date Comments General 06/15/2015 Encounter Details Date Type Department Care Team (Late st Contact Info) Description 06/15/2015 Telephone [facility] Pediatrics - Diabetes [facility] [address] [place] [address] Kory Lopez APRN-SCREW SUPERVISOR [address] [place] [phone] General Social History Tobacco Use Types Packs/Day Years Used Date Smoking Tobacco: Never Assessed Sex and Gender Information Value Date Recorded Sex Assigned at Not on file Gender Identity Not on file Sexual Orientation Not on file documented as of this encounter Miscellaneous Notes * Telephone Encounter - Jones Mcconnell RN - 06/15/2015 8:59 AM CDT Received RX from [facility] for Dexcom CGM and supplies. I called home to discuss with parents. Want to update them with [facility] requirements for coverage so they are aware before we send it (bgs <50, assistance with hypoglycemia treatment). Awaiting call back. documented in this encounter Plan of Treatment Not on file documented as of this encounter Visit Diagnoses Not on filedocumented in this encounter Additional Health Concerns Infection Onset Date Last Indicated Resolved Time COVID-19 Under Investigation 03/03/2021 03/03/2021 03/03/2021 11:11 AM CDT documented as of this encounter Care Teams Florist Supplies Salesperson Relationship Specialty Start Date End Date Alvarez Prabhakar MD [address] [place] [address] PCP - General 12/12/11 documented as of this encounter
--- OUTSIDE RECORDS SUMMARY | 2024-11-22 05:20 | XMS_ITS | Encounter Summary ---
Author Organization [facility] Address [address] [place] [address] Care Team Providers Care Aerobics Instructor Name Role Phone Alvarez Prabhakar MD Primary Care Provider Reason for Visit * Reason Onset Date Comments Blood Sugar Problem 10/01/2015 Encounter Details Date Type Department Care Team (Late st Contact Info) Description 10/01/2015 Telephone [facility] Pediatrics - Diabetes Mgmt [address] [place] [address] Kory Lopez, WENDI-SENIOR LIVING ADVISOR [address] [place] [id number] Blood Sugar Problem Social History Tobacco Use [...] Telephone Encounter - Jones Mcconnell RN - 10/02/2015 10:15 AM CST I returned Anaid's school nurse's call. I gave her the message that Lizeth left that there are no patterns so no changes warranted. I advised she continue to keep mom updated with blood sugars andmay contact us with concerns. Discussed general diabetes care. INFRASTRUCTURE MANAGER * Telephone Encounter - Lizeth Garrett RN - 10/01/2015 2:29 PM CST Received faxed blood sugars from Carlita Meléndez [facility] [place] Nurse. See doc flowsheets for most recent days.. Blood sugars have ranged from 04/12/15 to 09/28/15: 4607-1316 am 244, 173, 56 and 120 5621-7425 50 total ranging from 67-373 8258-0628 5 total 142-299 Called Carlita Meléndez back as requested. Left message to call office. Recommendations per injection protocol: No changes recommended at this time since no trends noted. INFRASTRUCTURE MANAGER documented in this encounter Plan of Treatment Not on file documented as of this encounter Visit Diagnoses Not on filedocumented in this encounter Care Teams Aerobics Instructor Relationship Specialty Start Date End Date Alvarez Prabhakar MD [address] [place] [phone] PCP - General 12/12/11 documented as of this encounter
--- OUTSIDE RECORDS SUMMARY | 2024-11-22 05:20 | XMS_ITS | Encounter Summary ---
Author Organization [facility] Address [address] [facility] [place] [address] Care Team Providers Care Telephone Messenger Name Role Phone Alvarez Prabhakar MD Primary Care Provider [phone] Encounter Details Date Type Department Care Team (Late st Contact Info) Description 06/24/2016 Orders Only [facility] Endocrinology [address] [place] [address] Kory Lopez APRN-MANAGER SOURCING [address] [place] [address] Type 1 diabetes mellitus without complication, with long-term current use of insulin (HCC) Social History Tobacco Use Types Packs/Day [...] (ABNORMAL) HEMOGLOBIN A1C - POCT (IP) ALEXANDRA (06/24/2016 8:28 AM CDT) Hemoglobin A1c POCT 9.1(A) 3.4 - 6.1 % [facility] POCT TESTING QC Verified Yes Yes [facility] PO CT TESTING Blood specimen (specimen) BLOOD SPECIMEN / Unknown 06/24/2016 8:28 AM CDT Kory Lopez OIL HEATER OPERATOR-MANAGER [facility] - POINT OF CARE ORDERABLES Performing Organization Address City/State/[facility] Co de Phone Number [facility] POCT TESTING [address] [place], [place] [id number] [place] [address] documented in this encounter Visit Diagnoses Diagnosis Type 1 diabetes mellitus without complication, with long-term current use of insulin (HCC)- Primary documented in this encounter Care Teams Telephone Messenger Relationship Specialty Start Date End Date Alvarez Prabhakar MD [address] [place] [address] PCP - General 12/12/11 documented as of this encounter
--- OUTSIDE RECORDS SUMMARY | 2024-11-22 05:20 | XMS_ITS | Encounter Summary ---
Author Organization [facility] Address [address] [facility] [place] [address] Care Team Providers Care Optician Name Role Phone Alvarez Prabhakar MD Primary Care Provider [phone] Reason for Visit * Reason Onset Date Comments MEDICATION REFILL 08/11/2016 Encounter Details Date Type Department Care Team (Late st Contact Info) Description 08/11/2016 Refill [facility] Pediatrics - Diabetes Mgmt [address] [place] [address] Kory Lopez APRN-TUG BOAT CAPTAIN [address] [place] [phone] MEDICATION REFILL Social History Tobacco Use Types [...] Telephone Encounter - Lizeth Garrett RN - 08/11/2016 9:19 AM CDT Mother states Ileana has gone missing and has been missing for approximately a month. Has been giving insulin with syringe. Told mother cannot use any cartridge that insulin has been drawn out of with syringe in pen. She verbalized understanding. Will send prescription with voucher to pharmacy and fax voucher information to pharmacy. documented in this encounter Plan of Treatment Not on file documented as of this encounter Visit Diagnoses Not on filedocumented in this encounter Additional Health Concerns Infection Onset Date Last Indicated Resolved Time COVID-19 Under Investigation 03/03/2021 03/03/2021 03/03/2021 11:11 AM CDT documented as of this encounter Care Teams Optician Relationship Specialty Start Date End Date Alvarez Prabhakar MD [address] [place] [phone] PCP - General 12/12/11 documented as of this encounter
--- OUTSIDE RECORDS SUMMARY | 2024-11-22 05:20 | XMS_ITS | Encounter Summary ---
Author Organization [facility] Address [address] [facility] [place] [address] Care Team Providers Care Hold Worker Name Role Phone Alvarez Prabhakar MD Primary Care Provider [phone] Reason for Visit * Reason Onset Date Comments Blood Sugar Problem 12/04/2015 Encounter Details Date Type Department Care Team (Late st Contact Info) Description 12/04/2015 Telephone [facility] Pediatrics - Diabetes Mgmt [address] [place] [address] Kory Lopez APRN-PLANISHING HAMMER OPERATOR [place] [phone] Blood Sugar Problem Social History Tobacco Use [...] Telephone Encounter - Lizeth Garrett RN - 12/04/2015 12:05 PM ADVICE LINE RN Received message from school nurse that Anaid is in Nurse Hernandez's office with blood sugar of [phone] ext [phone]. Per nurse she is asymptomatic and she is checking ketones now. Nurse Nelson'sstates ketones were trace. She states she already spoke with nurse from diabetes office this am prior to my call. No note so returned call at this time. CE LINE RN * Telephone Encounter - Jones Mcconnell RN - 12/04/2015 12:04 PM CST Nurse called [phone]. Beverlys blood sugar is 416, ketones are trace, she is drinking water.No symptoms of illness. PLAN per injection/sick protocol: Give usual correction at lunch in addition to humalog for carbs. Check bg and ketones in 2 hours. Call for moderate-large ketones, vomiting, concerns. Notify pts mother of high bg. Nurse agreed. CE LINE RN documented in this encounter Plan of Treatment Not on file documented as of this encounter Visit Diagnoses Not on filedocumented in this encounter Additional Health Concerns Infection Onset Date Last Indicated Resolved Time COVID-19 Under Investigation 03/03/2021 03/03/2021 03/03/2021 11:11 AM CDT documented as of this encounter Care Teams Hold Worker Relationship Specialty Start Date End Date Alvarez Prabhakar MD [address] [place] [address] PCP - General 12/12/11 documented as of this encounter
--- OUTSIDE RECORDS SUMMARY | 2024-11-22 05:20 | XMS_ITS | Encounter Summary ---
Author Organization [facility] Address [address] [facility] [place] [address] Care Team Providers Care Manager Database Administration Name Role Phone Alvarez Prabhakar MD Primary Care Provider [phone] Reason for Visit * Reason Comments Diabetes Encounter Details Date Type Department Care Team (Late st Contact Info) Description 06/24/2016 8:00 AM CDT - 06/24/2016 11:59 PM CDT Hospital Encounter [facility] Pediatrics - Diabetes Mgmt [address] [place] [address] Kory Lopez APRN-MOTION DESIGNER [address] [place] [phone] Discharge Disposition: Home or Self Care Social [...] Sign Reading Time Taken Comments Blood Pressure 102/50 06/24/2016 8:25 AM CDT Pulse - - Temperature - - Respiratory Rate - - Oxygen Saturation - - Inhaled Oxygen Concentration - - Weight 34.3 kg (75 lb 9.9 oz) 06/24/2016 8:25 AM CDT Height 146.5 cm (4' 9.68 ) 06/24/2016 8:25 AM CDT Body Mass Index 15.98 06/24/2016 8:25 AM CDT Body Mass Index Percentile 19.55% 06/24/2016 8:2 5 AM CDT Growth Chart: [facility] (Girls, 2- 20 Years) documented in this encounter Discharge Instructions * Patient Instructions* Kory Lopez APRN-CNP - 06/24/2016 8:43 AM CDT 1) increase lantus to 10 units 2) increase humalog to 1 unit per 20 grams carb 3) call as needed to review blood sugars 4) return in Aug for Dr. Olivas documented in this encounter [...] Kit 0 08/11/2014 07/07/2017 insulin glargine (LANTUS) vialIndications:Type 1 diabetes mellitus [...] this encounter Progress Notes * Kory Lopez, ALLERGY PHYSICIAN-MOTION DESIGNER - 06/24/2016 8:30 AM CDT Images from the original note were not included. Pediatric Diabetes Clinic Follow-Up Note [facility] Anaid Dimas and her mother were in our Pediatric Endocrinology clinic at [facility] on 06/24/2016. She is a 10 y.o. 8 m.o. who has: Problem Type 1 Diabetes Mellitus Diagnosed 08/17/2012 Anaid???s current treatment regimen is as follows: Insulin Brand/Type:humalog Delivery Device:luxura Insulin to Carbohydrate Ratios:1:30 Correction Dose:1 per 100 over 200 Lantus Dose:8 Injection Sites and Compliance:given by mother and herself, in her arms, legs, buttocks, stomach, before meals Average Daily Total: 30 units Other Medications: none Interval History: Significant for no major issues. She has experienced no major issues related to diabetes management since our past visit. Diabetes Self-Management: Anaid checks her blood glucose 5-7 times per day using a drake meter.Per [...] the following symptoms when he/she is hypoglycemic: shaking. Low blood sugars are treated with chips, glucose tabs. This patient has glucagon and She does wear her Medic-Alert tag. Anaid checks urine for ketones when glucose >250 and ill. Past Medical History: Social History: History Social History Narrative Social History: Anaid lives with mother. Goes to father's every other weekend. She is in the 6thgrade at [employer] and is achieving average grades, IEP. She has an in-tact diabetes management plan for school. Anaid has good friends and for extracurricular activity Anaid enjoys playing tag and hide and go seek, trampoline, jumping rope, riding bike. Anaid Dimas expresses feelings of acceptance regarding living with diabetes. Review of Systems: General: sleeping well, fair energy, summer hours ENT: normal vision, brushes teeth BID Skin: normal Cardiorespiratory: normal Gastrointestinal: normal Genitourinary: premenarchal, nocturia 10 times nightly, enuresis at night Endocrine: no fatigue or temperature intolerance Psychiatric:history of counseling for major outbursts Neurologic: normal Musculoskeletal: occasional jyotsna horses at night Physical Examination: BP 102/50 mmHg Ht 1.465 m (. ) Wt 34.3 kg (75 lb 9.9 oz) BMI 15.98 kg/m2 Height: 146.5 cm ( ) General: alert and oriented; well-appearing Eyes: [...] normal gait Laboratory Data: Hospital Encounter on 06/24/16 HEMOGLOBIN A1C - POCT (IP) BEAKER Result Value Ref Range Hgb A1C POCT 9.1 (Abnormal) 3.4 - 6.1 % QC Verified Yes Yes 14-Day Blood Glucose Statistics: Pre-Breakfast Pre-Lunch Pre-Dinner Bedtime Other Low 243 180 69 136 High 311 350 265 270 ~Average~ 280 225 190 230 Assessment and Management Plan: fair diabetes control. Excellent BG monitoring habits. Failure to respond to blood glucose patterns in between visits. Counseled on when to call for dose adjustment. Type 1 diabetes mellitus 1) increase lantus to 10 units 2) increase humalog to 1 unit per 20 grams carb 3) call as needed to review blood sugars 4) return in Aug for Dr. Olivas Of the 45 minutes spent with Anaid, 35 minutes were spent discussing HgbA1c, hypoglycemia, ketosis, exercise, glucagon, sick days, control and complications, blood glucose monitoring and parental supervision ABIDA Clarke CC: Alvarez Prabhakar MD [address] [place] [address] [address] [facility] [id number] Date: 06/24/2016 8:30 AM documented in this encounter Plan of Treatment Not on file documented as of this encounter Procedures Procedure Name Priority Date/Time Associated Diagnosis Comments HEMOGLOBIN A1C - POCT (IP) BEAKER Routine 06/24/2016 8:28 AM CDT Type 1 diabetes mellitus without complication, with long-term current use of insulin (HCC) documented in this encounter Results * (ABNORMAL) HEMOGLOBIN A1C - POCT (IP) BEAKER (06/24/2016 8:28 AM CDT) Hemoglobin A1c POCT 9.1(A) 3.4 - 6.1 % [facility] POCT TESTING QC Verified Yes Yes [facility] PO CT TESTING Blood specimen (specimen) BLOOD SPECIMEN / Unknown 06/24/2016 8:28 AM CDT Kory [facility] - POINT OF CARE ORDERABLES [facility] POCT TESTING [address] [place] [address], [facility] [phone] documented in this encounter Visit Diagnoses Diagnosis Type 1 diabetes mellitus without complication, with long-term current use of insulin (HCC) * Assessment & Plan Note - Kory Lopez APRN-CNP - 06/24/2016 12:51 PM CDT Associated Problem(s): Type 1 diabetes mellitus without complication (HCC) 1) increase lantus to 10 units 2) increase humalog to 1 unit per 20 grams carb 3) call as needed to review blood sugars 4) return in Aug for Dr. Olivas documented in this encounter Care Teams Manager Database Administration Relationship Specialty Start Date End Date Alvarez Prabhakar MD [address] [place] [phone] PCP - General 12/12/11 documented as of this encounter
--- OUTSIDE RECORDS SUMMARY | 2024-11-22 05:20 | XMS_ITS | Encounter Summary ---
Author Organization [facility] Address [address] [place] [address] Care Team Providers Care Design Engineer Products Name Role Phone Alvarez Prabhakar MD Primary Care Provider [phone] Reason for Visit * Reason Onset Date Comments Blood Sugar Problem 09/13/2018 Encounter Details Date Type Department Care Team (Late st Contact Info) Description 09/13/2018 Telephone [facility] Pediatrics - Diabetes Mgmt [address] [place] [address] Kory Lopez APRN-DIRECTOR INTELLIGENCE ANALYSIS PROGRAMS [address] [place] [id number] Blood Sugar Problem Social History Tobacco Use [...] Telephone Encounter - Lizeth Garrett RN - 09/14/2018 5:38 PM CDT Spoke with mother who stated Anaid improved last night with blood sugar dropped to 180's ketoneswere moderate then trace and feeling better today and went to school. Reviewed to call if moderate to large ketones or if vomits once. She verbalized understanding. * Telephone Encounter - Lizeth Garrett RN - 09/13/2018 1:18 PM CDT Mother called back and blood sugar is 438 and stomach hurts and describes it as burning. Ketones are large. Diabetes Sick Call Patient: Anaid Dimas Date: 09/13/2018 Current Blood Glucose: 438 Current Ketone result: large Last insulin given: Novolog: Dose 5 units Time 1020 this am Symptoms: stomach pain, irregular breathing and frequent urination. Dizzy when walked to bathroom. Plan: Give 5 units now with syringe. Less than or equal to 10% of total daily dose. Push sugar free fluid. Recheck blood glucose and urine ketones in two hours. Followed sick day protocol * Telephone Encounter - Lizeth Garrett RN - 09/13/2018 10:13 AM CDT Kassy nurse calling back. [phone]. Blood sugar is hi and large ketones. Diabetes Sick Call Patient: Anaid Dimas Date: 09/13/2018 Current Blood Glucose: hi at 10-15 minutes ago. Current Ketone result: large Last insulin given: Novolog: none at school but gave herself 15 units this am for cereal and 511 blood sugar this am. Lantus: Dose 20 units Time yesterday Symptoms: nausea, vomited twice and last time was 30 minutes ago and not feeling good in general. Plan: Give 5 units now with syringe. Less than or equal to 10% of total daily dose. Per nurse grandmother is on way to school to get child. Push sugar free fluid gently. Sips every few minutes. Recheck blood glucose in one hour and blood glucose and urine ketones in two hours. Cannot dose again for 2 hours and if vomits again to go to ER. Miscellaneous: I called mother back and relayed recommendations. [phone] verbalized understanding. Followed day protocol * Telephone Encounter - Lizeth Garrett RN - 09/13/2018 10:05 AM CDT Nurse called mother to notify that she has vomited three times and large ketones. Diabetes Sick Call Patient: Anaid Dimas Date: 09/13/2018 Current Blood Glucose:480 Current Ketone result: large Last insulin given: Novolog: Lantus: Dose 20 Time 2100 last night by self and witnessed by mother Symptoms: vomited several times Plan: will call nurse to get history. Called nurse and got voicemail. [phone]. Awaiting call back for history. Followed day protocol documented in this encounter Plan of Treatment Not on file documented as of this encounter Visit Diagnoses Not on filedocumented in this encounter Care Teams Design Engineer Products Relationship Specialty Start Date End Date Alvarez Prabhakar MD [address] [place] [address] PCP - General 12/12/11 documented as of this encounter
--- OUTSIDE RECORDS SUMMARY | 2024-11-22 05:20 | XMS_ITS | Encounter Summary ---
Author Organization [facility] Address [address] [facility] [place] [address] Care Team Providers Care Skip Loader Name Role Phone Alvarez Prabhakar MD Primary Care Provider [phone] Reason for Visit * Reason Onset Date Comments Blood Sugar Problem 11/21/2015 Encounter Details Date Type Department Care Team (Late st Contact Info) Description 11/21/2015 Telephone [facility] Pediatrics - Diabetes Mgmt [address] [place] [address] Kory Lopez APRN-CNP [address] [place] [phone] Blood Sugar Problem Social History Tobacco Use [...] Telephone Encounter - Nesha Celaya APRN-CNP - 11/21/2015 3:43 PM SALES REPRESENTATIVE EDUCATION COURSES I spoke with mother and reviewed bgs ([phone]). I recommended to increase Lantus to 5.5 units,to check bg at 0200, and to increase breakfast Humalog to 0.5:18. I asked mother to call again nextweek or sooner through exchange if having low bgs or any issues. S REPRESENTATIVE EDUCATION COURSES documented in this encounter Plan of Treatment Not on file documented as of this encounter Visit Diagnoses Not on filedocumented in this encounter Care Teams Skip Loader Relationship Specialty Start Date End Date Alvarez Prabhakar MD [address] [place] [address] PCP - General 12/12/11 documented as of this encounter
--- OUTSIDE RECORDS SUMMARY | 2024-11-22 05:20 | XMS_ITS | Encounter Summary ---
Author Organization [facility] Address [address] [facility] [place] [address] Care Team Providers Care Home Appliance Technician Name Role Phone Alvarez Prabhakar MD Primary Care Provider [phone] Reason for Visit * Reason Onset Date Comments Diabetes 10/15/2018 Encounter Details Date Type Department Care Team (Late st Contact Info) Description 10/15/2018 Telephone [facility] Pediatrics - Endocrinology [address] [place] [address]. [place] [address] Jesus Jacques MD [address] [place] [id number] Diabetes Social History Tobacco Use Types Packs/Day [...] Telephone Encounter - Jesus Jacques MD - 10/15/2018 10:12 AM STAFFING ASSISTANT Called by Dr. Odom, pediatrics resident at [facility], where Patient is improving in the PICU on routine DKA therapy. We discussed possible discharge today, her doses. I asked them to obtain a HbA1c, and also to remind the family to make an appointment with us (I will ask Ms. Padgett to call the family next week to arrange an appointment with Ottoniel John or Dr. Olivas). FING ASSISTANT documented in this encounter Plan of Treatment Not on file documented as of this encounter Visit Diagnoses Not on filedocumented in this encounter Care Teams Home Appliance Technician Relationship Specialty Start Date End Date Alvarez Prabhakar MD [address] [place] [address] PCP - General 12/12/11 documented as of this encounter
--- OUTSIDE RECORDS SUMMARY | 2024-11-22 05:20 | XMS_ITS | Encounter Summary ---
Author Organization [facility] Address [address] [place] [address] Care Team Providers Care Bench Patternmaker Metal Name Role Phone Alvarez Prabhakar MD Primary Care Provider [phone] Reason for Referral * Consultation (Routine) - Closed Specialty Diagnoses / Procedures Referred By Contac t Referred To Contact Nutrition Services Diagnoses Type 1 diabetes mellitus without complication (HCC) Breana Olivas MD Clin Nutrition [address] [place] [id number] Referral ID Status Reason Start Date Expiration Date V isits Requested Visits Authorized [id number] Closed Specialty Services Required 10/25/2018 04/23/2019 1 1 NA DRY DOCK MANAGER Reason for Visit * Reason Comments Diabetes Encounter Details Date Type Department Care Team (Latest Contact Info) Description 10/25/2018 8:21 AM MARINA DRY DOCK MANAGER - 10/25/2018 11:59 PM MARINA DRY DOCK MANAGER Hospital Encounter [facility] Pediatrics - Diabetes Mgmt [address] [place] [id number] Breana Olivas MD Discharge Disposition: Home [...] Sign Reading Time Taken Comments Blood Pressure 110/70 10/25/2018 8:34 AM MARINA DRY DOCK MANAGER Pulse - - Temperature - - Respiratory Rate - - Oxygen Saturation - - Inhaled Oxygen Concentration - - Weight 54.7 kg (120 lb 9.5 oz) 10/25/2018 8:34 A M MARINA DRY DOCK MANAGER Height 158.4 cm (5' 2.36 ) 10/25/2018 8:34 AM CS T Body Mass Index 21.8 10/25/2018 8:34 AM MARINA DRY DOCK MANAGER Body Mass Index Percentile 75.89% 10/25/2018 8:3 4 AM MARINA DRY DOCK MANAGER Growth Chart: [facility] (Girls, 2- 20 Years) documented in this encounter Discharge Instructions * Patient Instructions* Breana Olivas MD - 10/25/2018 9:04 AM MARINA DRY DOCK MANAGER Scary low BS values in the evening and morning! Needs adult supervision at all times so the carbs are counted correctly and the right insulin dose is given. Need to check BS 4 times daily, before all meals and at bedtime. No changes in doses. Record BS values in your book and call for dosing advise as needed. NA DRY DOCK MANAGER documented in this encounter Medications at Time [...] blood glucose monitoring. 1 Kit 0 08/18/2012 injection device-insulin (NOVOPEN ECHO) deviceIndications:Ty pe 1 [...] for injections 4-6 times daily. 200 Each 05/24/2018 08/03/2023 insulin syringe-needle (B-D INS SYR HALF-UNIT .3CC/31G) 31G X 5/16 0.3 ML syringeIndications:D iabetes mellitus type 1 (HCC) Use for injections 1-2 times daily. 100 Each 11 06/20/2014 04/17/2020 Insulin Syringe-Needle U-100 (BD INSULIN SYRINGE ULTRAFINE) 31G X 15/64 0.3 ML syringe Use for injection daily. 100 syringe 11 04/14/2018 05/12/2019 documented as of this encounter Progress Notes * Breana Olivas MD - 10/25/2018 9:10 AM CST Images from the original note were not included. Anaid Dimas and her mother were seen in our Pediatric Endocrinology offices on 10/25/18. She is a 13 y.o. 0 m.o. girl who is followed for type 1 diabetes diagnosed in 08/04. Interval History: Overnight admission in a PICU in [place], [place], during a trip. Physician contacted our information technology auditor commercial housekeeper. Mother reports they left home without her insulin. Otherwise healthy since last seen in March. No severe hypoglycemia or other ketonuria reported. Diabetes Therapies: Lantus 22 Units at 21:00. NovoLog 1 Unit: 18 grams, correction 1 Unit: 50/150. Injections by Anaid in her extremities and abdomen. Mother reports frequent accidental insulin overdoses due to mismatch between dose and CHO count. Frequent hypoglycemia with BS values as low as 44-58 is noted at bedtime and fasting. Total reported daily insulin dose ~48 Units. Current Prescriptions: ??? insulin aspart (NOVOLOG PENFILL) cartridge Inject 1 unit per 18-20 grams of carbohydrates or asdirected. . Max daily dose 40 units. ??? insulin glargine (LANTUS) vial Inject 17 Units subcutaneously at bedtime ??? injection device-insulin (NOVOPEN ECHO) device Use for insulin delivery. ??? Insulin Pen Needle (BD PEN NEEDLE [...] greater than 250 or whenill. ) ??? insulin lispro (HUMALOG) 100 UNIT/ML cartridge Inject 1 unit for every 18-20 grams carbohydrateor as directed. ??? ACCU-CHEK FASTCLIX LANCETS Use [...] meal plan. Anaid Dimas last saw our general dentist/owner today. Sports/Physical Exercise: PE only Blood Glucose Monitoring: Anaid Dmias's glucose monitoring is done 3+ x daily using an Accu-Chek Drake meter with a target range of 80-150. Glucometer available for examination: Breakfast Lunch Dinner Bedtime Overnight Other Range 58, 55, 44 86-356 79, 207, 173 52-125 Low/in range/high 0/3/8 5/2/0 Comments Usually skips Usually skips Per ADA guidelines, people with type 1 diabetes on multiple-dose insulin or insulin pump therapy should perform SMBG prior to meals and snacks, occasionally post-prandial, at bedtime, prior to exercise, when they suspect low blood glucose, after treating low blood glucose until they are normoglycemic, and prior to critical tasks such as driving. Hypoglycemia: Frequency/Treatment: 3-6 times per week. Anaid recognizes her hypoglycemia when her blood sugar is <70, characterized by shaking, sweating, and hunger. Treatment is adequate (juice) and injectable glucagon is available. Urine Ketone Monitoring: Yes, when glucose >250 and ill. Review of Systems: General: high energy, large appetite, night owl Skin: negative Eyes: normal vision, last eye exam in 12/10 ENT: brushes teeth 2 x daily, sees dentist Respiratory: negative GI: normal BM 1-2 x daily : nocturia 1-2 x nightly Neurologic: no h/o seizure(s) Psychiatric: negative, MSQ-9 depression score 9 (3 points for overeating, 2 for trouble falling asleep) Endocrine: regular menses All other systems reviewed and were negative. Past Medical History: I have reviewed the patient's medical, surgical, social, and family history and there are no changes. Passing student in 8th grade at [employer] with school nurse present. Physical Examination: BP 110/70 Ht 1.584 m (5' 2.36 ) Wt 54.7 kg (120 lb 9.5 oz) LMP 10/11/2018 (Approximate) BMI21.8 kg/m2 69 %ile (Z= 0.50) based on CDC 2-20 Years bredbf-fdw-bne data using vitals from 10/25/2018. 38 %ile (Z= -0.31) based on CDC 2-20 Years fyvdrhk-yne-bkm data using vitals from 10/25/2018. Body mass indexis 21.8 kg/(m^2). 76 %ile (Z= 0.70) based on CDC 2-20 Years BMI-for-age data using vitals from 10/25/2018. General: Well-appearing, WDWN, pleasant teen. Skin/Hair/Nails: Warm [...] DTRs 2+ and equal. ID Tag Status: Wears Laboratory Data: Hospital Encounter on 10/25/18 HEMOGLOBIN A1C - POCT (IP) BEAKER Result Value Ref Range Hemoglobin A1c POCT 9.0 (Abnormal) 3.4 - 6.1 % QC Verified Yes Yes Assessment: Type 1 diabetes of 6 years' duration under poor overall control; excessive recent hypoglycemia at night, placing her at risk of a seizure. No known diabetes complications or autoimmune co-morbidities. No concerns for depression despite PHQ-9 score of 9 (see above). Recent [place] out of state. Inadequate adult supervision. Management Plan: Shared my concern about her frequent recent hypoglycemia, especially that occurring at bedtime or before breakfast. Needs adult supervision at all times so the carbohydrates are counted correctly and the right insulin dose is given. Need to check BS 4 times daily, before all meals and at bedtime. Target range is 80-150 but at least 100 at bedtime. No changes in insulin doses for now. Record BS values in the log book provided and call for dosing advise. Family asked about insulin pumps and glucose sensors, both discussed. Consultation done with Diana Voss RD, today. Influenza vaccination offered/recommended but declined. Return visit in 3 months. Note: I spent 40 minutes with the family, >50% in diabetes management. Breana Olivas MD [phone] CC: Alvarez Prabhakar MD [address] [place] [address] [address] [place] [address] Date: 10/25/2018 9:10 AM NA DRY DOCK MANAGER * Diana Voss RD/LD - 10/25/2018 9:08 AM CST 10/25/2018 Diabetes Clinical Nutrition Assessment Anaid Dimas is a 13 y.o. 0 m.o. female seen in diabetes clinic for annual nutrition assessment The encounter diagnosis was Type 1 diabetes mellitus without complication. No past medical history on file. Anthropometrics: Weight: 120 lb 9.5 oz (54.7 kg) 69 %ile (Z= 0.50) based on CDC 2-20 Years rzsbwc-hiq-nau data usingvitals from 10/25/2018. Height: 5' 2.36 (158.4 cm) 38 %ile (Z= -0.31) based on CDC 2-20 Years gswifdb-uab-zbx data using vitals from 10/25/2018. Body mass index is 21.8 kg/(m^2). 76 %ile (Z= 0.70) based on CDC 2-20 Years BMI-for-age data using vitals from 10/25/2018. Wt Readings from Last 3 Encounters: 10/25/18 120 lb 9.5 oz (54.7 kg) (69 %, Z= 0.50)* 04/12/18 108 lb 0.4 oz (49 kg) (55 %, Z= 0.14)* 07/14/17 97 lb 14.2 oz (44.4 kg) (48 %, Z= -0.05)* * Growth percentiles are based on CDC 2-20 Years data. Weight has continued to increase. Recent Labs Component Name 10/25/18 0841 04/12/18 1129 07/14/17 1027 HGBA1C 9.0* 10.8* 9.6* No results for input(s): CHOL, TRIG, HDL, LDLCALC, LDLDIRECT in the last 99518 hours. Medications: Current Outpatient Prescriptions Medication ??? insulin aspart (NOVOLOG PENFILL) cartridge ??? insulin glargine (LANTUS) vial ??? injection device-insulin (NOVOPEN ECHO) device ??? Insulin Pen Needle (BD PEN NEEDLE DRAKE U/F) 32G X 4 MM MISC ??? Insulin Syringe-Needle U-100 (BD INSULIN SYRINGE ULTRAFINE) 31G X 15/64 0.3 ML syringe ??? acetone,urine, (KETOSTIX) strip ??? insulin aspart (NOVOLOG FLEXPEN) pen ??? blood glucose (ACCU-CHEK SMARTVIEW) test strip ??? glucagon (GLUCAGON EMERGENCY) injection ??? acetone,urine, (KETOSTIX) strip ??? insulin lispro (HUMALOG) 100 UNIT/ML cartridge ??? ACCU-CHEK FASTCLIX LANCETS ??? insulin syringe-needle (B-D INS SYR HALF-UNIT .3CC/31G) 31G X 5/16 0.3 ML syringe ??? Blood Glucose Monitoring Suppl (ACCU-CHEK DRAKE SMARTVIEW) W/DEVICE KIT kit No current facility-administered medications for this encounter. Food and nutrition related history: Anaid Dimas was seen in clinic with her mom. She is in the 8th grade and likes school fine. Dr. Olivas related concerns for over dosing insulin and mom agrees that this is happening. Anaid gives her own insulin but states mom does carbohydrate counting when she is home. Anaid is never home by herself as she will be with her grandma or uncle but mom feels like carbohydrate counting may not be accurate at these times. She is having low blood sugar in the middle of the night but hasn't been telling mom about them (around 4am per Anaid). They are interested in an insulin pump and sensor. Mom does carbohydrate counting mostly using food labels. There are no measuring cups or food scale in the house to ensure adequate measurements. Anaid has been eating rather large portions of foodand has taken two insulin shots as she will sometime eat more than she thought. She takes insulin before and after eating; it will vary based on hunger and waiting to see how much she will actually eat. During discussion, Anaid showed little interest in improving her self care. Mom relates it's been almost 7 years since diagnosis and some comments were made by mom to Anaid that it's not going away. Mom with very good attitude of care but likely fighting about it with Anaid at home. Insulin regimen: 1:18 ICR for all meals/snacks Typical intake on most days: B: cereal + milk L: packs lunch: [place] + chips + fruit snacks/brownie + milk Snack: [place], chips, cereal + milk, cheese D: 8pm: Nachos (meat, cheese, rotel, dips chips in it), waffles + SF syrup Snacks: Sweets (ice cream, mini brownies) Beverages: Milk, water, diet cranberry juice Dining Out: rarely Physical Activity: PE daily at school Television/Media viewing: a lot Estimated Needs: Kcal: 45 kcal/kg Protein: 1 gm protein/kg Nutrition Care Process Nutrition Diagnostic Statement: Altered nutrition-related lab values related to: inaccurate carbohydrate counting vs insulin dosing as evidenced by : recall and elevated A1c ?? Nutrition Intervention: Nutrition Counseling -- Discussed importance of accurate measuring for carbohydrate counting. Encouraged to obtain food scale, mom agreeable. Discussed carb calculations for food scale and how to use. Mom reports she is comfortable with calculations as she is a nurse and does some similar math. Anaid is currently inalgebra so should also be able to do them but show little interest. -- Provided carbohydrate counting work sheets for grandparents at home with basic information as well as weight of different foods for food scale use. Discussed measuring pasta and rice portions withmeasuring cup vs scale for best accuracy. -- Start daily complete MVI based on food preferences. Consider getting vitamin D level as mom reports hers was low. -- RD encouraged Anaid for compliance and care in her diabetes as well as addressed more independence in her future with high school next year. ?? Nutrition Goal: Biochemical data will be improved/normalized Have all meals and snacks at table with minimal distraction Mom to create list of updated portion size and carbohydrate count of typical intake ?? Nutrition Goal Timeframe: Ongoing Nutrition Goal Progress: Continue with current goal 30 minutes have been spent in providing nutrition counseling and education. Mom verbalized understanding of the plan and anticipate good compliance; expect poor to fair compliance from patient Follow up with RD in [address]/VEE Ascom [phone] NA DRY DOCK MANAGER documented in this encounter Plan of Treatment Scheduled Referrals Name Type Priority Associated Diagnoses Orde r Schedule Referral to Medical Nutrition Therapy Outpatient Referral Routine Type 1 diabetes mellitus without complication (HCC) Ordered: 10/25/2018 documented as of this encounter Procedures Procedure Name Priority Date/Time Associated Diagnosis Comments HEMOGLOBIN A1C - POCT (IP) BEAKER Routine 10/25/2018 8:41 AM MARINA DRY DOCK MANAGER Type 1 diabetes mellitus without complication (HCC) documented in this encounter Results * (ABNORMAL) HEMOGLOBIN A1C - POCT (IP) BEAKER (10/25/2018 8:41 AM MARINA DRY DOCK MANAGER) Hemoglobin A1c POCT 9.0(A) 3.4 - 6.1 % [facility] POCT TESTING QC Verified Yes Yes [facility] PO CT TESTING Blood BLOOD SPECIMEN / Unknown 10/25/2018 8:41 AM MARINA DRY DOCK MANAGER Breana Olivas MD LAB - POINT OF CARE ORDERABLES [facility] POCT TESTING [address] [place] [address], [facility] [phone] documented in this encounter Visit Diagnoses Diagnosis Type 1 diabetes mellitus without complication (HCC) Type I (juvenile type) diabetes mellitus without mention of complication, not stated as uncontrolled documented in this encounter Care Teams Bench Patternmaker Metal Relationship Specialty Start Date End Date Alvarez Prabhakar MD [address] [place] [phone] PCP - General 12/12/11 documented as of this encounter
--- OUTSIDE RECORDS SUMMARY | 2024-11-22 05:20 | XMS_ITS | Encounter Summary ---
Author Organization [facility] Address [address] [place] [address] Care Team Providers Care Embossing Calender Operator Name Role Phone Alvarez Prabhakar MD Primary Care Provider [phone] Encounter Details Date Type Department Care Team (Late st Contact Info) Description 04/08/2018 Orders Only [facility] Pediatrics - Endocrinology [address] [place] [address] Breana Olivas MD Type 1 diabetes mellitus [...] 27.48 mg/dL 04/12/20 18 12:11 PM CDT [facility] Microalbumin Urine <0.5 <1.7 mg/dL 04/12/2018 12:11 PM CDT [facility] Microalbumin/Crea tinine Ratio <18 <30 mg/g 04/12/2018 12:11 PM CDT [facility] Urine URINE SPECIMEN OBTAINED BY CLEAN CATCH PROCEDURE / Unknown Collection / Unknown 04/12/2018 11:31 AM CDT 04/12/2018 11:38 AM CDT Breana Olivas MD LAB - URINE CHEMISTR Y ORDERABLES Performing Organization Address [facility]/ZIP Co de Phone Number [facility] [address] [place] [address] * (ABNORMAL) HEMOGLOBIN A1C - POCT (IP) BEAKER (04/12/2018 11:29 AM CDT) [facility] Hemoglobin A1c POCT 10.8(A) 3.4 - 6.1 % [facility] POCT TEST[facility] QC Verified Yes Yes [facility] PO CT TESTING Blood BLOOD SPECIMEN / Unknown 04/12/2018 11:29 AM CDT Breana Olivas MD LAB - POINT OF CARE ORDERABLES Performing Organization Address [facility] Co de Phone Number [facility] [address] [place] [address] * TSH (04/12/2018 11:25 AM CDT) [facility] TSH 0.43 0.35 - 4.95 uIU/mL 04/12/2018 12:32 PM CDT [facility] Blood BLOOD SPECIMEN / Unknown Venipuncture / Unknown 04/12/2018 11:25 AM CDT 04/12/2018 11:38 AM CDT Breana Olivas MD LAB - CHEMISTRY ORDE RABLES Performing Organization Address [facility]/ZIP Co de Phone Number [facility] [address] [place] [address] * TISSUE TRANSGLUTAMINASE AB IGA (04/12/2018 11:24 AM CDT) [facility] TTG Antibody IgA <2 0 - 3 U/mL 04/13/2018 3:18 PM CDT [facility] ([facility]) Comment: ?Negative ?0 - ??3 ?Weak Positive ?? 4 - 10 ?Positive ? >10 Tissue Transglutaminase (tTG) has been identified as the endomysial antigen. ??Studies have demonstr- ated that endomysial IgA antibodies have over 99% specificity for gluten sensitive enteropathy. Blood BLOOD SPECIMEN / Unknown Venipuncture / Unknown 04/12/2018 11:24 AM CDT 04/12/2018 11:38 AM CDT Narrative [facility] ([facility]) - 04/13/2018 3:18 PM CDT Performed at: ??01 - [facility] [address] [place], [place] ??[id number] Commercial Carpet Installer: Justo Johnson PhD, Phone: ??[phone] Breana Olivas MD LAB - SEROLOGY ORDER CHASIDY Performing Organization Address City/State/[facility] Co de Phone Number [facility] ([facility]) [address] [place] [address] documented in this encounter Visit Diagnoses Diagnosis Type 1 diabetes mellitus without complication (HCC)- Primary Type I (juvenile type) diabetes mellitus without mention of complication, not stated as uncontrolled documented in this encounter Care Teams Embossing Calender Operator Relationship Specialty Start Date End Date Alvarez Prabhakar MD [address] [place] [address] PCP - General 12/12/11 documented as of this encounter
--- OUTSIDE RECORDS SUMMARY | 2024-11-22 05:20 | XMS_ITS | Encounter Summary ---
Author Organization [facility] Address [address] [place] [address] Care Team Providers Care Bag Patcher Name Role Phone Alvarez Prabhakar MD Primary Care Provider [phone] Reason for Visit * Reason Onset Date Comments Blood Sugar Problem 03/26/2015 Encounter Details Date Type Department Care Team (Late st Contact Info) Description 03/26/2015 Telephone [facility] Pediatrics - Diabetes Mgmt [address] [place] [address] Kory Lopez APRN-CNP [address] [place] [id number] Blood Sugar Problem Social History Tobacco Use Types Packs/Day Years Used Date Smoking Tobacco: Never Assessed Sex and Gender Information Value Date Recorded Sex Assigned at Not on file Gender Identity Not on file Sexual Orientation Not on file documented as of this encounter Miscellaneous Notes * Telephone Encounter - Nesha Celaya APRN-CNP - 03/26/2015 4:46 PM CDT I called mother re: call from school nurse earlier today for high bgs. Mother reports that Estephanied not get her Lantus yesterday evening as mother was out of town and the Lantus was left in her home. I recommended to give full dose of Lantus now (5 units), check Bg and check ketones. Call exchange for moderate- large ketones. I emphasized that Anaid should not miss Lantus. I discussed how to move Lantus back by 2 hours every evening until back at bedtime schedule and mother verbalized an understanding of this. documented in this encounter Plan of Treatment Not on file documented as of this encounter Visit Diagnoses Not on filedocumented in this encounter Care Teams Bag Patcher Relationship Specialty Start Date End Date Alvarez Prabhakar MD [address] [place] [id number] PCP - General 12/12/11 documented as of this encounter
--- OUTSIDE RECORDS SUMMARY | 2024-11-22 05:21 | XMS_ITS | Encounter Summary ---
Author Organization [facility] Address [address] [place] [address] Care Team Providers Care Welding Machine Operator Electron Beam Name Role Phone Alvarez Prabhakar MD Primary Care Provider [phone] Reason for Visit * Reason Onset Date Comments Follow-up 08/03/2014 Encounter Details Date Type Department Care Team (Late st Contact Info) Description 08/03/2014 Telephone [facility] Pediatrics - Diabetes Mgmt [facility] [place] [address] Breana Olivas MD Follow-up Social History Tobacco Use Types Packs/Day Years Used Date Smoking Tobacco: Never Assessed Sex and Gender Information Value Date Recorded Sex Assigned at Not on file Gender Identity Not on file Sexual Orientation Not on file documented as of this encounter Miscellaneous Notes * Telephone Encounter - Lizeth Garrett RN - 08/03/2014 12:36 PM CDT Returned school nurse Carlita's call. She is concerned because blood sugars fluctuating so much. Comes in for snack at 1030. Today was 335 and emotional. Thought she had eaten a cookie. Gave 1.5 units of insulin. Pushed water and 1115 264 and water given. Had her resting. No symptoms. Then 214 at 1145 then back to class. Now blood sugar is 96 and gone to lunch. Nurse plans on monitoring what she eats because she has not always told her truthfully what she ate. She wants to always give insulin after she eats. I told her we prefer she get her insulin before she eats and child needs to be monitored to make sure she eats what insulin is given for and if not another kind of fast carbohydrate should be given. Blood sugars this am were per nurse: 1030 335 1.5 units correction given by nurse without food. Nurse did not call for assistance prior to giving correction dose. She did check ketones and were negative. [phone] 1230 96 and went to lunch. Told nurse to not give correction without food if blood sugar is elevated but to check ketones and if not moderate to large ketones to give water to drink. I explained corrections cannot be given more than 2 hours apart and never at school without food. To not give correction for a meal if was given insulin for snack that was less than 2 hours prior to meal since that insulin would not be done peaking. Told her could consider checking ketones and if not moderate to large giving water to drink and rechecking then correct at next meal. To notify office if trending elevated daily at same time. May need to adjust dose of meal prior. Today told her to check blood sugar prior to getting on bus. She agreed. Child was asymptomatic. documented in this encounter Plan of Treatment Not on file documented as of this encounter Visit Diagnoses Not on filedocumented in this encounter Care Teams Welding Machine Operator Electron Beam Relationship Specialty Start Date End Date Alvarez Prabhakar MD [address] [place] [address] PCP - General 12/12/11 documented as of this encounter
--- OUTSIDE RECORDS SUMMARY | 2024-11-22 05:21 | XMS_ITS | Encounter Summary ---
Author Organization [facility] Address [address] [place] [address] Care Team Providers Care Mechanical Cad Drafter Name Role Phone Alvarez Prabhakar MD Primary Care Provider [phone] Reason for Visit * Reason Comments Follow-up type 1, not well con trolled, hyperglycemic Encounter Details Date Type Department Care Team (Late st Contact Info) Description 02/12/2015 8:29 AM CDT - 02/12/2015 11:59 PM CDT Hospital Encounter [facility] Pediatrics - Diabetes [facility] [address] [place] [address] Kory Lopez APRN-[employer] [address] [place] [address] Discharge Disposition: Home or Self Care Social History Tobacco Use Types Packs/Day Years Used Date Smoking Tobacco: Never Assessed Sex and Gender Information Value Date Recorded Sex Assigned at Not on file Gender Identity Not on file Sexual Orientation Not on file documented as of this encounter Last Filed Vital Signs Vital Sign Reading Time Taken Comments Blood Pressure 84/50 02/12/2015 8:31 AM CDT Pulse - - Temperature - - Respiratory Rate - - Oxygen Saturation - - Inhaled Oxygen Concentration - - Weight 26.9 kg (59 lb 6.4 oz) 02/12/2015 8:31 AM CDT Height 135.2 cm (4' 5.23 ) 02/12/2015 8:31 AM CD T Body Mass Index 14.74 02/12/2015 8:31 AM CDT Body Mass Index Percentile 11.17% 02/12/2015 8:3 1 AM CDT Growth Chart: [facility] (Girls, 2- 20 Years) documented in this encounter Discharge Instructions * Patient Instructions* Kory Lopez APRN-CNP - 02/12/2015 9:07 AM CDT 1) increase breakfast and lunch to 0.5/20 2) increase Lantus to 5 units 3) check blood sugar at 2 am for two nights and call if low 4) increase correction dose to 201-250 0.5, 251-300 1, 301-350 1.5, 351-400 2, over 401 2.5 5) call in blood sugars on Thursday 6) return in 3 months for Getachew documented in this encounter Medications at Time of Discharge Medication Sig Dispensed Refills Start Date End Date Blood Glucose Monitoring Suppl (ACCU-CHEK DRAKE SMARTVIEW) W/DEVICE KIT kitIndications:Diabet es mellitus type 1 (HCC) Use for blood glucose monitoring. 1 Kit 0 08/18/2012 ACCU-CHEK FASTCLIX LANCETSIndications:Di abetes mellitus type 1 (HCC) Use for blood glucose monitoring 4-6 times/day. 200 Each 11 10/19/2013 07/10/2015 acetone,urine, (KETOSTIX) strip Use as needed (use when blood sugar is greater than 250 or when ill. ). 100 Strip 11 02/12/2015 04/21/2017 acetone,urine, (KETOSTIX) stripIndications:Diab etes mellitus type 1 (HCC) Use as directed for urine ketone checks if blood sugar above 200 or if ill. Dispense one bottle for school and one for home. 100 Strip 3 09/15/2014 10/01/2015 blood glucose (ACCU-CHEK SMARTVIEW) test stripIndications:Diab etes mellitus type 1 (HCC) Use for blood glucose monitoring 4-6 times/day. 200 Strip 11 09/12/2014 09/20/2015 glucagon (GLUCAGON EMERGENCY) injectionIndications: Diabetes mellitus type 1 (HCC) Inject 1 mg into muscle as directed for severe low blood sugar reaction. 2 Kit 0 08/11/2014 07/07/2017 insulin glargine (LANTUS) vialIndications:Diabe olesya mellitus type 1 (HCC) Inject 3.5 Units subcutaneously at bedtime. 1 Vial 3 02/02/2015 03/18/2016 insulin lispro (HUMALOG PENFILL) 3 ml cartridgeIndications: Diabetes mellitus type 1, uncontrolled Inject 0.5 unit per 20 grams of carbohydrate with meals and snacks. 1 Box 5 10/19/2013 03/19/2015 insulin lispro (HUMALOG) cartridge Inject 0.5 unit for every 30-45 grams carbohydrate or as directed. 1 Each 1 11/08/2014 03/19/2015 Insulin Pen Needle (BD PEN NEEDLE DRAKE U/F) 32G X 4 MM MISCIndications:Diabe olesya mellitus type 1 (HCC) Use 4-6 Each as directed. Use for injections 4-6 times daily. 200 Each 11 10/19/2013 08/09/2015 insulin syringe-needle (B-D INS SYR HALF-UNIT .3CC/31G) 31G X 5/16 0.3 ML syringeIndications:Di abetes mellitus type 1 (HCC) Use for injections 1-2 times daily. 100 Each 11 06/20/2014 04/17/2020 documented as of this encounter Progress Notes * Kory Lopez, TRANSMISSION MAINTENANCE SUPERVISOR-[employer] - 02/12/2015 8:44 AM CDT Images from the original note were not included. Pediatric Diabetes Clinic Follow-Up Note Banner Anaid Dimas and her mother were in our Pediatric Endocrinology clinic at [facility] on 02/12/2015. She is a 9 y.o. 4 m.o. who has: Problem Type 1 Diabetes Mellitus Diagnosed 08/17/2012 Anaid???s current treatment regimen is as follows: Insulin Brand/Type:Humalog Delivery Device:luxura Insulin to Carbohydrate Ratios:0.5 per 30 gram carb Correction Dose:1 per 100 over 300 Lantus Dose:3.5 Injection Sites and Compliance:given by mother, father, and herself in legs and arms, before at home, after at school Average Daily Total: 9.5 Other Medications: melatonin Interval History: Significant for no major issues. She has experienced no issues related to diabetes management since our past visit. Diabetes Self-Management: Anaid checks her blood glucose 1-3 times per day using a Accucheck/Gina meter.Per ADA guidelines, people with type 1 diabetes on multiple-dose insulin or insulin pump therapy should perform SMBG prior to meals and snacks, occasionally post-prandial, at bedtime, prior to exercise, when they suspect low blood glucose, after treating low blood glucose until they are normoglycemic, and prior to critical tasks such as driving. Anaid???s target blood glucose range [id number]. Anaid experiences 0-1 lows per week that are sensed when the blood sugar is less than 70. Anaid feels the following symptoms when he/she is hypoglycemic: shaking. Low blood sugars are treated with 10-15 gram carb snack. This patient has glucagon and glucagon is and She does not wear her Medic-Alert tag. Anaid checks urine for ketones when glucose >250 and ill. Past Medical History: Social History: History Social History Narrative Social History: Anaid lives with mother. Goes to father's every other weekend. She is in the 4thgrade at [employer] and is achieving average grades. She has an in-tact diabetes management plan for school. Anaid has good friends and for extracurricular activity Anaid enjoys playing tag and hide and go seek. Anaid Dimas expresses feelings of acceptance regarding living with diabetes. Review of Systems: General: sleeping better since taking melatonin, normal energy during the day ENT: Due for eye exam in March, brushes teeth once daily Skin: normal Cardiorespiratory: normal Gastrointestinal: normal Genitourinary: premenarchal, nocturnal enuresis most nights Endocrine: no fatigue or temperature intolerance Psychiatric: sees psychiatrist monthly, tirade thrown in clinic lasting 30 minutes screaming that she wanted her blood back after her blood draw and 4 nurses holding her down. Mother was able to calm her and she was eventually cooperative during the visit Neurologic: normal Musculoskeletal: No muscle weakness, No joint pain and normal range of motion Physical Examination: BP 84/50 Ht 1.352 m (4' 5.23 ) Wt 26.944 kg (59 lb 6.4 oz) BMI 14.74 kg/m2 Height: 135.2 cm (4' 5.23 ) General: alert and oriented; well-appearing Eyes: Normal- EOM intact, normal fundi HEENT: Normal Neck: Normal-thyroid not enlarged Chest/Breast: Normal Lungs: Clear to auscultation, unlabored breathing Heart: Normal PMI, regular rate & rhythm, normal S1,S2, no murmurs, rubs, or gallops Abdomen: Normal scaphoid appearance, soft, non-tender, without organ enlargement or masses. Genitourinary: Not examined Musculoskeletal: Normal symmetric bulk and strength Lymphatic: No abnormally enlarged lymph nodes. Skin/Hair/Nails: No rashes or abnormal dyspigmentation Neurologic: Mental status normal, DTR 1+, normal strength and tone, normal gait Laboratory Data: Results for orders placed during the hospital encounter of 02/12/15 MICROALB/CREAT RATIO URINE RANDOM PANEL Result Value Ref Range Creat Urine mg/dL 239.28 Microalbumin Ur mg/dL 4.9 (*) <1.7 mg/dL Microalb/Creat Ratio 20 <30 mg/g TSH Result Value Ref Range TSH 1.54 0.35-4.95 uIU/mL HEMOGLOBIN A1C - POCT (IP) BEAKER Result Value Ref Range Hgb A1C POCT 8.2 (*) 3.4 - 6.1 % QC Verified Yes Yes 14-Day Blood Glucose Statistics: Pre-Breakfast Pre-Lunch Pre-Dinner Bedtime Other Low 133 High 467 ~Average~ 350 Assessment and Management Plan:Only school blood sugars available as she spent the weekend with herfather and brought the meter from his house. Mother describes blood sugars over 200 for the most part. Type 1 diabetes mellitus 1) increase breakfast and lunch to 0.5/20 2) increase Lantus to 5 units 3) check blood sugar at 2 am for two nights and call if low 4) increase correction dose to 201-250 0.5, 251-300 1, 301-350 1.5, 351-400 2, over 401 2.5 5) call in blood sugars on Thursday 6) return in 3 months for Getachew Of the 45 minutes spent with Anaid, 35 minutes were spent discussing HgbA1c, hypoglycemia, ketosis, exercise, glucagon, sick days, control and complications, blood glucose monitoring and parental supervision Follow-Up: Return in about 3 months (around 05/15/2015) for Getachew. ABIDA Clarke CC: Alvarez Prabhakar [address] [place] [address] [address] / [facility] [id number] Date: 02/12/2015 8:44 AM documented in this encounter Plan of Treatment Not on file documented as of this encounter Procedures Procedure Name Priority Date/Time Associated Diagnosis Comments MICROALB/CREAT RATIO URINE RANDOM PANEL Routine 02/12/2015 9:17 AM CDT Type 1 diabetes mellitus (HCC) HEMOGLOBIN A1C - POCT (IP) BEAKER Routine 02/12/2015 8:44 AM CDT Type 1 diabetes mellitus (HCC) TSH Routine 02/12/2015 8:43 AM CDT Type 1 diabetes mellitus (HCC) documented in this encounter Results * (ABNORMAL) MICROALB/CREAT RATIO URINE RANDOM PANEL (02/12/2015 9:17 AM CDT) Creatinine Urine 239.28 mg/dL 02/12/2015 10:34 AM CDT [facility] Microalbumin Urine 4.9(H) <1.7 mg/dL 02/12/2015 10:34 AM CDT [facility] Microalbumin/Crea tinine Ratio 20 <30 mg/g 02/12/2015 10:34 AM CDT [facility] Urine URINE SPECIMEN OBTAINED BY CLEAN CATCH PROCEDURE / Unknown 02/12/2015 9:17 AM CDT 02/12/2015 10:03 AM CDT Kory T[facility] LAB - URINE JOSE ABELINO ORDERABLES [facility] [address] [place] [address] * (ABNORMAL) HEMOGLOBIN A1C - POCT (IP) BEAKER (02/12/2015 8:44 AM CDT) Hemoglobin A1c POCT 8.2(A) 3.4 - 6.1 % [facility] POCT TESTING QC Verified Yes Yes [facility] PO CT TESTING Blood specimen (specimen) BLOOD SPECIMEN / Unknown 02/12/2015 8:44 AM CDT Kory TAI LAB - POINT OF CARE ORDERABLES Performing Organization Address [facility] Co de Phone Number [facility] [address] [place] [address], [facility] * TSH (02/12/2015 8:43 AM CDT) Pathologist [facility] TSH 1.54 0.35 - 4.95 uIU/mL 02/12/2015 9:57 AM CDT [facility] Blood BLOOD SPECIMEN / Unknown 02/12/2015 8:43 AM CDT 02/12/2015 8:56 AM CDT Kory TAI LAB - CHEMISTRY ORDERABLES Performing Organization Address City/[facility] de Phone Number [facility] [address] [place] [address] documented in this encounter Visit Diagnoses Diagnosis Type 1 diabetes mellitus (HCC) Type I (juvenile type) diabetes mellitus without mention of complication, not stated as uncontrolled * Assessment & Plan Note - Kory Lopez APRN-CNP - 02/12/2015 1:27 PM CDT Associated Problem(s): Type 1 diabetes mellitus without complication (HCC) 1) increase breakfast and lunch to 0.5/20 2) increase Lantus to 5 units 3) check blood sugar at 2 am for two nights and call if low 4) increase correction dose to 201-250 0.5, 251-300 1, 301-350 1.5, 351-400 2, over 401 2.5 5) call in blood sugars on Thursday 6) return in 3 months for Getachew documented in this encounter Care Teams Mechanical Cad Drafter Relationship Specialty Start Date End Date Alvarez Prabhakar MD [address] [place] [id number] PCP - General 12/12/11 documented as of this encounter
--- OUTSIDE RECORDS SUMMARY | 2024-11-22 05:21 | XMS_ITS | Encounter Summary ---
Author Organization [facility] Address [address] [facility] [place] [address] Care Team Providers Care Conveyor System Dispatcher Name Role Phone Alvarez Prabhakar MD Primary Care Provider [phone] Reason for Visit * Reason Comments Diabetes Type 1 Follow-up Visit Encounter Details Date Type Department Care Team (Latest Contact Info) Description 06/20/2014 10:30 AM CDT - 06/20/2014 11:59 PM CDT Hospital Encounter [facility] Pediatrics - Diabetes [address] [place] [address] Breana Olivas MD Discharge Disposition: Home or Self Care Social History Tobacco Use Types Packs/Day Years Used Date Smoking Tobacco: Never Assessed Sex and Gender Information Value Date Recorded Sex Assigned at Not on file Gender Identity Not on file Sexual Orientation Not on file documented as of this encounter Last Filed Vital Signs Vital Sign Reading Time Taken Comments Blood Pressure 80/64 06/20/2014 11:28 AM CDT Pulse - - Temperature - - Respiratory Rate - - Oxygen Saturation - - Inhaled Oxygen Concentration - - Weight 25.2 kg (55 lb 9.6 oz) 11:28 AM CDT Height 133 cm (4' 4.36 ) 06/20/2014 11: 28 AM CDT Body Mass Index 14.26 06/20/2014 11:28 AM CDT Body Mass Index Percentile 8.30% 06/20 11:28 AM CDT Growth Chart: [facility] (Girls, 2- 20 Years) documented in this encounter Discharge Instructions * Patient Instructions* Jones Mcconnell, RN - 06/20/2014 11:54 AM CDT Increase Lantus to 3 Units; call in 1 week to see if she needs more. Mealtime correction: 1/2 Unit per 50 over 200. 200-249 1/2 Unit 250-299 1 Unit 300 or greater 1-1/2 Units Start giving injections to buttocks- use a reward chart if that helps! documented in this encounter Medications at Time of Discharge Medication Sig Dispensed Refills Start Date End Date Blood Glucose Monitoring Suppl (ACCU-CHEK DRAKE SMARTVIEW) W/DEVICE KIT kitIndications:Diabet es mellitus type 1 (HCC) Use for blood glucose monitoring. 1 Kit 0 08/18/2012 ACCU-CHEK FASTCLIX LANCETSIndications:Di abetes mellitus type 1 (HCC) Use for blood glucose monitoring 4-6 times/day. 200 Each 11 10/19/2013 07/10/2015 acetone,urine, (KETOSTIX) stripIndications:Diab etes mellitus type 1 (HCC) Use as directed for urine ketone checks if blood sugar above 200 or if ill. Dispense one bottle for school and one for home. 100 Strip 3 10/27/2013 09/15/2014 blood glucose (ACCU-CHEK SMARTVIEW) test stripIndications:Diab etes mellitus type 1 (HCC) Use for blood glucose monitoring 4-6 times/day. 200 Strip 11 08/23/2013 09/12/2014 glucagon (GLUCAGON EMERGENCY) injectionIndications: Diabetes mellitus type 1 (HCC) Inject 1 mg into muscle as directed for severe low blood sugar reaction. 2 Kit 1 08/18/2012 08/11/2014 insulin glargine (LANTUS) injectionIndications: Diabetes mellitus type 1 (HCC) Inject 1 Units subcutaneously at bedtime. 1 Vial 11 10/27/2013 02/02/2015 insulin lispro (HUMALOG PENFILL) 3 ml cartridgeIndications: Diabetes mellitus type 1, uncontrolled Inject 0.5 unit per 20 grams of carbohydrate with meals and snacks. 1 Box 5 10/19/2013 03/19/2015 Insulin Pen Needle (BD PEN NEEDLE [...] Progress Notes * Breana Olivas MD - 06/20/2014 4:16 PM CDT Images from the original note were not included. Anaid Dimas and her mother were seen in our Pediatric Endocrinology offices on 06/20/14. She is a 8 y.o. 8 m.o. girl who is followed for type 1 diabetes diagnosed in 08/04. She appears to be having a prolonged honeymoon ; her diagnosis is based on an elevated ROSIE Ab and no family history of diabetes. Interval History: Healthy other than head cold. No severe hypoglycemia or ketonuria. No Known Allergies Diabetes Therapies: Lantus 2 Units qhs; Humalog 1/2 Unit: 30 grams, no SS. Injections by Bhavani and family in all sites but hips/buttocks. Total daily ~14 U/d +/-4 Units. Current Prescriptions: ??? insulin glargine (LANTUS) injection Inject 1 Units subcutaneously at bedtime. ??? insulin lispro (HUMALOG PENFILL) 3 ml cartridge Inject 0.5 unit per 20 grams of carbohydrate with meals and snacks. ??? insulin syringe-needle (B-D INS SYR HALF-UNIT .3CC/31G) 31G X 5/16 0.3 ML syringe Use for injections 1-2 times daily. ??? acetone,urine, (KETOSTIX) strip Use as directed for urine ketone checks if blood sugar above 200 or if ill. Dispense one bottle for school and one for home. ??? ACCU-CHEK FASTCLIX LANCETS Use for blood glucose monitoring 4-6 times/day. ??? Insulin Pen Needle (BD PEN NEEDLE DRAKE U/F) 32G X 4 MM MISC Use 4-6 Each as directed. Use for injections 4-6 times daily. ??? blood glucose (ACCU-CHEK SMARTVIEW) test strip Use for blood glucose monitoring 4-6 times/day. ??? Blood Glucose Monitoring Suppl (ACCU-CHEK DRAKE SMARTVIEW) W/DEVICE KIT kit Use for blood glucose monitoring. ??? glucagon (GLUCAGON EMERGENCY) injection Inject 1 mg into muscle as directed for severe low blood sugar reaction. Meal Plan: Anaid Dimas/her parent(s) report the child is on a carb- counting meal plan. Anaid Dimas last saw our manufacturer representative in October. Sports/Physical Exercise: Outside play, bicycling Blood Glucose Monitoring: Anaid Dimas's glucose monitoring is done 2-4 x day using an Accu-Chek with a target range of 80-180; glucometer available for examination: Breakfast Lunch Dinner Bedtime Overnight Other Comments [phone] Hypoglycemia: Frequency/Treatment: 0-1 time per week. Anaid recognizes her hypoglycemia when herblood sugar is <60 or lower, characterized by fatigue, sweating and hunger. Treatment is adequate and injectable glucagon is available. Urine Ketone Monitoring: Yes, when glucose >250. Review of Systems: General: good energy and big appetite Skin: negative Eyes: negative ENT: negative Respiratory: negative GI: normal BM twice daily, lactose intolerant : enuresis most nights Neurologic: no h/o seizure(s) Psychiatric: recently diagnose with ADHD, Concerta stopped due to anorexia and hypoglycemia Endocrine: negative All other systems reviewed and were negative. Past Medical History: I have reviewed the patient's medical, surgical, social and family history and there are no changes. Entering 4th grade at [email or web address]. Physical Examination: BP 80/64 Ht 1.33 m (4' 4.36 ) Wt 25.22 kg (55 lb 9.6 oz) BMI 14.26 kg/m2 10%ile (Z=-1.30) based on CDC 2-20 Years [id number] data using vitals from 06/20/2014. 30%ile (Z=-0.52) based on CDC 2-20 Years [id number] data using vitals from 06/20/2014. Body mass index is14.26 kg/(m^2). 8%ile (Z=-1.39) based on CDC 2-20 Years BMI-for-age data using vitals from 06/20/2014. General: Well-appearing, very thin, inattentive girl. Skin/Hair/Nails: Warm and dry. Moderate insulin lipohypertrophy on both arms. No observable rashes. Eyes: Sclerae clear, PERRLA, EOMs intact; no abnormal fundoscopic findings. Dentition: Good hygiene. Erupting upper cuspids. Neck: Supple. Thyroid not enlarged. Chest: Symmetric. Lungs clear to auscultation, unlabored breathing. CV system unremarkable with regular heart rate and rhythm, normal S1/S2, no murmurs, rubs, or gallops. Abdomen: Soft, non-tender, without organ enlargement or masses. Pubertal maturation: Miquel 1. Extremities: No cyanosis or edema. Neurologic system: Non-focal. DTRs 2+ and equal. Normal sensation for light touch and vibration. ID Tag Status: None Laboratory Data: Results for orders placed during the hospital encounter of 06/20/14 HEMOGLOBIN A1C - POCT (IP) BEAKER Result Value Range Hgb A1C POCT 7.7 (*) 3.4 - 6.1 % QC Verified Yes Assessment: Type 1 diabetes currently under poor control; appears to be coming out of honeymoon. No known diabetes complications or co-morbidities. Management Plan: Increase Lantus dose to 3 Units. Likely to need significantly more; call our nurses in 1 week. Start a mealtime SS of 1/2 Unit: 50/200. Rotate sites as per instruction of Jones Mcconnell RN. School letter provided. Discussed side effects of stimulants. Return visit in 3 months. Breana Olivas MD [phone] CC: Alvarez Prabhakar [address] [place] [address] [address] / [facility] [id number] Date: 06/20/2014 4:16 PM documented in this encounter Plan of Treatment Not on file documented as of this encounter Procedures Procedure Name Priority Date/Time Associated Diagnosis Comments HEMOGLOBIN A1C - POCT (IP) BEAKER Routine 06/20/2014 11:34 AM CDT Type 1 diabetes mellitus (HCC) documented in this encounter Results * (ABNORMAL) HEMOGLOBIN A1C - POCT (IP) BEAKER (06/20/2014 11:34 AM CDT) Hemoglobin A1c POCT 7.7(A) 3.4 - 6.1 % [facility] POCT TEST[facility] QC Verified Yes [facility] PO CT TESTING Blood specimen (specimen) BLOOD SPECIMEN / Unknown 06/20/2014 11:34 AM CDT Breana Olivas MD LAB - POINT OF CARE ORDERABLES Performing Organization Address City/State/[facility] Co de Phone Number [facility] [address] documented in this encounter Visit Diagnoses Diagnosis Type 1 diabetes mellitus (HCC) Type I (juvenile type) diabetes mellitus without mention of complication, not stated as uncontrolled documented in this encounter Care Teams Conveyor System Dispatcher Relationship Specialty Start Date End Date Alvarez Prabhakar MD [address] [place] [phone] PCP - General 12/12/11 documented as of this encounter
--- OUTSIDE RECORDS SUMMARY | 2024-11-22 05:21 | XMS_ITS | Encounter Summary ---
Author Organization [facility] Address [address] [place] [address] Care Team Providers Care Ep Technologist Name Role Phone Alvarez Prabhakar MD Primary Care Provider [phone] Reason for Visit * Reason Onset Date Comments General 08/08/2014 Encounter Details Date Type Department Care Team (Late st Contact Info) Description 08/08/2014 Telephone [facility] Pediatrics - Diabetes [facility] [address] [place] [address] Kory Lopez APRN-[place] [address] [place] [id number] General Social History Tobacco Use Types Packs/Day Years Used Date Smoking Tobacco: Never Assessed Sex and Gender Information Value Date Recorded Sex Assigned at Not on file Gender Identity Not on file Sexual Orientation Not on file documented as of this encounter Miscellaneous Notes * Telephone Encounter - Xochilt Child RN - 08/08/2014 2:52 PM CDT Attempted to return mom's call. There was no answer, left message to call our office. documented in this encounter Plan of Treatment Not on file documented as of this encounter Visit Diagnoses Not on filedocumented in this encounter Care Teams Ep Technologist Relationship Specialty Start Date End Date Alvarez Prabhakar MD [address] [place] [phone] PCP - General 12/12/11 documented as of this encounter
--- OUTSIDE RECORDS SUMMARY | 2024-11-22 05:21 | XMS_ITS | Encounter Summary ---
Author Organization [facility] Address [address] [place] [address] Care Team Providers Care Sas Statistical Programmer Name Role Phone Alvarez Prabhakar MD Primary Care Provider [phone] Reason for Visit * Reason Comments Diabetes Type 1 Follow-up Visit Encounter Details Date Type Department Care Team (Latest Contact Info) Description 02/03/2013 1:50 PM CDT - 02/03/2013 11:59 PM CDT Hospital Encounter [facility] Pediatrics - Diabetes [facility] [address] [place] [address] Leeanne Croft, CLOTH WORKER-ENROBER Retired Discharge Disposition: Home or Self Care Social History Tobacco Use Types Packs/Day Years Used Date Smoking Tobacco: Never Assessed Sex and Gender Information Value Date Recorded Sex Assigned at Not on file Gender Identity Not on file Sexual Orientation Not on file documented as of this encounter Last Filed Vital Signs Vital Sign Reading Time Taken Comments Blood Pressure 86/56 02/03/2013 2:06 PM CDT Pulse - - Temperature - - Respiratory Rate - - Oxygen Saturation - - Inhaled Oxygen Concentration - - Weight 23.3 kg (51 lb 4.8 oz) 02/03/2013 2:06 PM CDT Height 125.6 cm (4' 1.45 ) 02/03/2013 2:06 PM CD T Body Mass Index 14.75 02/03/2013 2:06 PM CDT Body Mass Index Percentile 23.64% 02/03/2013 2:0 6 PM CDT Growth Chart: [facility] (Girls, 2- 20 Years) documented in this encounter Discharge Instructions * Patient Instructions* Leeanne Croft RN,CPNP - 02/03/2013 2:55 PM CDT No Lantus at this time When pre-breakfast blood sugars are consistently 150 or more, we will start Lantus at 1 unit daily Call us before starting No change in Humalog at this time When lunch, dinner and bedtime blood sugars are more consistently over 180, call us Return to see us in 3 months documented in this encounter Medications at Time of Discharge Medication Sig Dispensed Refills Start Date End Date Blood Glucose Monitoring Suppl (ACCU-CHEK DRAKE SMARTVIEW) W/DEVICE KIT kitIndications:Diabete s mellitus type 1 (HCC) Use for blood glucose monitoring. 1 Kit 0 08/18/2012 ACCU-CHEK FASTCLIX LANCETSIndications:Nahed betes mellitus type 1 (HCC) Use for blood glucose monitoring 4-6 times/day. 200 Each 11 08/18/2012 10/19/2013 acetone,urine, (KETOSTIX) stripIndications:Diabe olesya mellitus type 1 (HCC) Use as directed for urine ketone checks if blood sugar above 200 or if ill. Dispense one bottle for school and one for home. 100 Strip 3 08/18/2012 10/27/2013 blood glucose (ACCU-CHEK SMARTVIEW) test stripIndications:Diabe olesya mellitus type 1 (HCC) Use for blood glucose monitoring 4-6 times/day. 200 Strip 11 08/18/2012 08/23/2013 glucagon (GLUCAGON EMERGENCY) injectionIndications:D iabetes mellitus type 1 (HCC) Inject 1 mg into muscle as directed for severe low blood sugar reaction. 2 Kit 1 08/18/2012 08/11/2014 insulin lispro (HUMALOG PENFILL) 3 ml cartridgeIndications:D iabetes mellitus type 1, uncontrolled Inject 0.5 unit per 20 grams of carbohydrate with meals and snacks. 1 Box 5 08/20/2012 10/19/2013 Insulin Pen Needle (BD PEN NEEDLE DRAKE U/F) 32G X 4 MM MISCIndications:Diabet es mellitus type 1 (HCC) Use 1 Each as directed. Use for injections 4-6 times daily. 200 Each 08/18/2012 10/19/2013 insulin syringe-needle (B-D INS SYR HALF-UNIT .3CC/31G) 31G X 5/16 0.3 ML syringeIndications:Nahed betes mellitus type 1 (HCC) Use for injections 1-2 times daily. 100 Each 08/18/2012 06/20/2014 documented as of this encounter Progress Notes * Leeanne Croft RN,CPNP - 02/03/2013 2:46 PM CDT Anaid Dimas is a 7 y.o. 3 m.o. female who is accompanied by her mother for follow-up regarding her type 1 diabetes. Duration of Diabetes: 6 months, diagnosed 08/17/2012 (diagnosed in the very early stage, not ill) Interval History: no major problems, however, missed her 12/07/12 scheduled diabetes appointment. Diabetes Therapies: No Lantus insulin (has not required it yet) Humalog insulin is 1/2 unit per 30 grams of carbohydrates at breakfast and dinner, 1/2 per 40 at lunch and 1/2 per 20 with snacks. She had not been doing a correction dose yet. Injections are given by mother, grandparents, great-grandparents and school nurse and are given in legs, arms and buttocks. Average daily insulin intake has been 0.15/Kg/day; this is a very small honeymoon dose Blood Glucose Monitoring: Anaid Dimas's glucose monitoring is done by self, mother and school nurse 3 using an Accu-Chek Gina with a target range of 80-180; glucometer available for examination, following are from the past 2 weeks: Breakfast Lunch Dinner Bedtime Range [phone] 75-285 86-274 95-301 Lo/Target 0 1 0 . Hypoglycemia: Frequency/Treatment:: She feels hungry when her blood sugar is around 70 and eats a snack, however,she has had no significant hypoglycemia. Mother can name two or more causes for her hypoglycemia; treatment is adequate. Anaid has glucagon. Meal Plan: Anaid Dimas/her parent(s) report the child is on a carb-counting meal plan. Sports/Physical Exercise: PE at school, jumping jacks running and playing Urine Ketone Monitoring: yes, when glucose >250 and ill. Review of Systems: General: negative, very good energy and good appetite Skin: negative Eyes: glasses Last eye exam: More than one year ago ENT: Last dental appointment: Fillings 7-8 Respiratory: negative GI: negative : normal Neurologic: negative Musculoskeletal: negative Psychiatric: negative All other systems reviewed and were negative. PMH/Other Diagnosis: None Other Medications: none Family History/Social History: Lives with mother. Grandparents and great grandparents help care forVictoria. Father has not been involved School: She is in grade 2 at [employer]; performance : Average ; mother tells me that reading and comprehension have been off . She had been tested for attention problems by the school, but none found. Physical Exam: BP 86/56 Ht 1.256 m (4' 1.45 ) Wt 23.27 kg (51 lb 4.8 oz) BMI 14.75 kg/m2 20.4%ile based on CDC 2-20 Years [id number] data. 26.18%ile based on CDC 2- 20 Years [id number] data. Body mass index is 14.75 kg/(m^2). 23.61%ile based on CDC 2-20 Years BMI-for-age data. Wt Readings from Last 3 Encounters: 02/03/13 23.27 kg (51 lb 4.8 oz) (20.40%*) 10/01/12 21.319 kg (47 lb) (12.10%*) 09/03/12 21.455 kg (47 lb 4.8 oz) (14.28%*) Ht Readings from Last 3 Encounters: 02/03/13 1.256 m (4' 1.45 ) (26.18%*) 10/01/12 1.25 m (4' 1.21 ) (33.81%*) 09/03/12 1.248 m (4' 1.13 ) (35.23%*) General: alert and oriented; well-appearing, friendly, active Eyes: Normal HEENT: Normal Neck: Normal, thyroid is not enlarged Chest/Breast: Normal Lungs: Clear to auscultation, unlabored breathing Heart: Normal PMI, regular rate & rhythm, normal S1,S2, no murmurs, rubs, or gallops Abdomen: Normal scaphoid appearance, soft, non-tender, without organ enlargement or masses. Genitourinary: Normal female; Miquel stage I Musculoskeletal: Normal symmetric bulk and strength Lymphatic: No abnormally enlarged lymph nodes. Skin/Hair/Nails: No rashes. Injection sites are clear Neurologic: Mental status normal, no cranial nerve deficits, normal strength and tone, normal gait Medic-Alert tag Status: She does not wear her Medic-Alert tag; new bracelet given to her at the visit. Laboratory Data: Results for orders placed during the hospital encounter of 02/03/13 HEMOGLOBIN A1C - POCT (IP) BEAKER Component Value Range Hgb A1C POCT 7.3 (*) 3.4 - 6.1 % QC Verified yes Yes Assessment: Diabetes Type: type 1 Control: good control, requiring a very small amount of insulin Complications: none Management Plan: No Lantus at this time When pre-breakfast blood sugars are consistently 150 or more, we will start Lantus at 1 unit daily Call us before starting No change in Humalog at this time When lunch, dinner and bedtime blood sugars are more consistently over 180, call us Return to see us in 3 months Of the 40 minutes spent with Anaid, 35 minutes were spent discussing blood sugars, insulin and food choices. documented in this encounter Plan of Treatment Not on file documented as of this encounter Procedures Procedure Name Priority Date/Time Associated Diagnosis Comments HEMOGLOBIN A1C - POCT (IP) BEAKER Routine 02/03/2013 2:12 PM CDT Type I (juvenile type) diabetes mellitus without mention of complication, not stated as uncontrolled (HCC) documented in this encounter Results * (ABNORMAL) HEMOGLOBIN A1C - POCT (IP) BEAKER (02/03/2013 2:12 PM CDT) Hemoglobin A1c POCT 7.3(A) 3.4 - 6.1 % [facility] POCT TESTING QC Verified yes Yes [facility] PO CT TESTING Blood specimen (specimen) BLOOD SPECIMEN / Unknown 02/03/2013 2:12 PM CDT Breana Olivas MD LAB - POINT OF CARE ORDERABLES [facility] POCT TESTING [address] [place] [address] documented in this encounter Visit Diagnoses Diagnosis Type I (juvenile type) diabetes mellitus without mention of complication, not stated as uncontrolled (HCC) Type I (juvenile type) diabetes mellitus without mention of complication, not stated as uncontrolled documented in this encounter Care Teams Sas Statistical Programmer Relationship Specialty Start Date End Date Alvarez Parbhakar MD [address] [place] [address] PCP - General 12/12/11 documented as of this encounter
--- OUTSIDE RECORDS SUMMARY | 2024-11-22 05:21 | XMS_ITS | Encounter Summary ---
Author Organization [facility] Address [address] [address] Care Team Providers Care Drag Sawyer Name Role Phone Alvarez Prabhakar MD Primary Care Provider [phone] Reason for Visit * Reason Onset Date Comments General 03/28/2013 Encounter Details Date Type Department Care Team (Late st Contact Info) Description 03/28/2013 Telephone [facility] Pediatrics - Diabetes Mgmt [address] [place] [address] Kory Lopez APRN-ADMEASURER [address] [place] [id number] General Social History Tobacco Use Types Packs/Day Years Used Date Smoking Tobacco: Never Assessed Sex and Gender Information Value Date Recorded Sex Assigned at Not on file Gender Identity Not on file Sexual Orientation Not on file documented as of this encounter Miscellaneous Notes * Telephone Encounter - Nesha Celaya RN,CPNP - 03/28/2013 9:31 AM CDT I returned mother's call ([phone]). They lost Luxura pen device and not available at pharmacy.Mother to orange picker machine operator sample pen device. documented in this encounter Plan of Treatment Not on file documented as of this encounter Visit Diagnoses Not on filedocumented in this encounter Care Teams Drag Sawyer Relationship Specialty Start Date End Date Alvarez Prabhakar MD [address] [place] [address] PCP - General 12/12/11 documented as of this encounter
--- OUTSIDE RECORDS SUMMARY | 2024-11-22 05:21 | XMS_ITS | Encounter Summary ---
Author Organization [facility] Address [address] [place] [address] Care Team Providers Care Office Auditor Name Role Phone Alvarez Prabhakar MD Primary Care Provider [phone] Reason for Visit * Reason Onset Date Comments HIGH BLOOD SUGAR 08/18/2012 Encounter Details Date Type Department Care Team (Late st Contact Info) Description 08/18/2012 Telephone [facility] Pediatrics - Endocrinology [address] [facility] [place] [address] Breana Olivas MD HIGH BLOOD SUGAR Social History Tobacco Use Types Packs/Day Years Used Date Smoking Tobacco: Never Assessed Sex and Gender Information Value Date Recorded Sex Assigned at Not on file Gender Identity Not on file Sexual Orientation Not on file documented as of this encounter Miscellaneous Notes * Telephone Encounter - Breana Olivas MD - 08/18/2012 7:46 PM CDT Mother called as instructed to report dinner BS; value was 327. Does not have ketone strips yet. Discussed starting insulin at home vs. admitting to [facility]. 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 Instructed her to give 4 Units of Humalog before dinner and recheck BS at 9:30 bedtime. Will not start any Lantus yet. She will call me in the morningto report her interval BSs. documented in this encounter Plan of Treatment Not on file documented as of this encounter Visit Diagnoses Not on filedocumented in this encounter Care Teams Office Auditor Relationship Specialty Start Date End Date Alvarez Prabhakar MD [address] [place] [address] PCP - General 12/12/11 documented as of this encounter
--- OUTSIDE RECORDS SUMMARY | 2024-11-22 05:21 | XMS_ITS | Encounter Summary ---
Author Organization [facility] Address [address] [place] [address] Care Team Providers Care Cleaning And Washing Equipment Operator Name Role Phone Alvarez Prabhakar MD Primary Care Provider [phone] Reason for Visit * Reason Onset Date Comments MEDICATION REFILL 10/27/2013 Encounter Details Date Type Department Care Team (Late st Contact Info) Description 10/27/2013 Refill [facility] Pediatrics - Endocrinology [address] [facility] [facility] [place] [address] Leeanne Croft, ROUTE SERVICE MANAGER-LOAD OUT PERSON Retired MEDICATION REFILL Social History Tobacco Use Types Packs/Day Years Used Date Smoking Tobacco: Never Assessed Sex and Gender Information Value Date Recorded Sex Assigned at Not on file Gender Identity Not on file Sexual Orientation Not on file documented as of this encounter Plan of Treatment Not on file documented as of this encounter Visit Diagnoses Diagnosis Diabetes mellitus type 1 (HCC)- Primary Type I (juvenile type) diabetes mellitus without mention of complication, not stated as uncontrolled documented in this encounter Care Teams Cleaning And Washing Equipment Operator Relationship Specialty Start Date End Date Alvarez Prabhakar MD [address] [place] [phone] PCP - General 12/12/11 documented as of this encounter
--- OUTSIDE RECORDS SUMMARY | 2024-11-22 05:21 | XMS_ITS | Encounter Summary ---
Author Organization [facility] Address [address] [place] [address] Care Team Providers Care Sign Maintenance Name Role Phone Alvarez Prabhakar MD Primary Care Provider [phone] Encounter Details Date Type Department Care Team (Late st Contact Info) Description 05/14/2013 Orders Only [facility] Pediatrics - Endocrinology [address] [place] [address] Breana Olivas MD ([facility]) Social History Tobacco Use Types Packs/Day Years Used Date Smoking Tobacco: Never Assessed Sex and Gender Information Value Date Recorded Sex Assigned at Not on file Gender Identity Not on file Sexual Orientation Not on file documented as of this encounter Plan of Treatment Not on file documented as of this encounter Results * TISSUE TRANSGLUTAMINASE AB IGA (05/16/2013 9:02 AM CDT) Tissue Transglutaminase (tTG) Ab, IgA 5 0 - 19 Units 05/17/2013 1:16 PM CDT [facility] Comment: INTERPRETIVE INFORMATION: Tissue Transglutaminase (tTG) Antibody, IgA 19 Units or less: Negative 20-30 Units: Weak Positive 31 Units or greater: Moderate to Strong Positive Presence of the tissue transglutaminase (tTG) IgA antibody is associated with gluten-sensitive enteropathies such as celiac disease and dermatitis herpetiformis. tTG IgA antibody concentrations greater than or equal to 100 Units usually correlate with results of duodenal biopsies consistent with a diagnosis of celiac disease. For antibody concentrations greater than 20 Units but less than 100 Units, additional testing for endomysial (BERTO) IgA concentrations may improve the positive predictive value for disease. Blood specimen (specimen) BLOOD SPECIMEN / Unknown Venipuncture / Unknown 05/16/2013 9:02 AM CDT 05/16/2013 9:07 AM CDT Breana Olivas MD LAB - SEROLOGY ORDER [facility] [address] [place] [address] * TSH (05/16/2013 9:02 AM CDT) TSH 1.70 0.35 - 4.95 uIU/mL 05/16/2013 9:49 AM CDT [facility] Blood specimen (specimen) BLOOD SPECIMEN / Unknown Venipuncture / Unknown 05/16/2013 9:02 AM CDT 05/16/2013 9:07 AM CDT Breana Olivas MD LAB - CHEMISTRY [facility] [address] [place] [address] * CHOLESTEROL BLOOD (05/16/2013 9:02 AM CDT) Cholesterol 154 <170 mg/dL 05/16/2013 9:31 AM CDT [facility] Blood specimen (specimen) BLOOD SPECIMEN / Unknown Venipuncture / Unknown 05/16/2013 9:02 AM CDT 05/16/2013 9:07 AM CDT Narrative [facility] - 05/16/2013 9:31 AM CDT Cholesterol [...] Breana Olivas MD LAB - CHEMISTRY MANJULA HAWAELAINE Performing Organization Address City/[facility]/ZIP Co de Phone Number [facility] [address] [place] [address] * (ABNORMAL) HEMOGLOBIN A1C - POINT OF CARE (IP) (05/16/2013 9:02 AM CDT) Hemoglobin A1c POCT 7.4(A) 3.4 - 6.1 % [facility] POCT TESTING QC Verified yes Yes [facility] PO CT TESTING Blood specimen (specimen) BLOOD SPECIMEN / Unknown 05/16/2013 9:02 AM CDT Breana Olivas MD LAB - POINT OF CARE ORDERABLES Performing Organization Address [facility] de Phone Number [facility] PO[facility] [address] [place] [address] documented in this encounter Visit Diagnoses Diagnosis Type I (juvenile type) diabetes mellitus without mention of complication, not stated as uncontrolled (HCC)- Primary Type I (juvenile type) diabetes mellitus without mention of complication, not stated as uncontrolled Type I (juvenile type) diabetes mellitus without mention of complication, not stated as uncontrolled (HCC) Type I (juvenile type) diabetes mellitus without mention of complication, not stated as uncontrolled documented in this encounter Care Teams Sign Maintenance Relationship Specialty Start Date End Date Alvarez Prabhakar MD [address] [place] [address] PCP - General 12/12/11 documented as of this encounter
--- OUTSIDE RECORDS SUMMARY | 2024-11-22 05:21 | XMS_ITS | Encounter Summary ---
Author Organization [facility] Address [address] [place] [address] Care Team Providers Care Boom Supervisor Name Role Phone Alvarez Prabhakar MD Primary Care Provider Reason for Visit * Reason Onset Date Comments Blood Sugar Problem 06/28/2014 Encounter Details Date Type Department Care Team (Late st Contact Info) Description 06/28/2014 Telephone [facility] Pediatrics - Diabetes [address] [address] Breana Olivas MD Blood Sugar Problem Social History Tobacco Use Types Packs/Day Years Used Date Smoking Tobacco: Never Assessed Sex and Gender Information Value Date Recorded Sex Assigned at Not on file Gender Identity Not on file Sexual Orientation Not on file documented as of this encounter Miscellaneous Notes * Telephone Encounter - Xochilt Child RN - 06/28/2014 2:16 PM CDT Returned mom's kathy to review blood sugars, see doc flowsheet. Mom states the 2 times she was low isbecause she did not finish all the carbohydrates she received insulin for. Per injection protocol: Increase Lantus to 3.5 units Call Thursday to review blood sugars documented in this encounter Plan of Treatment Not on file documented as of this encounter Visit Diagnoses Not on filedocumented in this encounter Care Teams Boom Supervisor Relationship Specialty Start Date End Date Alvarez Prabhakar MD [address] [place] [address] PCP - General 12/12/11 documented as of this encounter
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
--- OUTSIDE RECORDS SUMMARY | 2024-11-22 05:21 | XMS_ITS | Encounter Summary ---
Author Organization [facility] Address [address] [place] [address] Care Team Providers Care Oil And Gas Field Technician Name Role Phone Alvarez Prabhakar MD Primary Care Provider [phone] Reason for Visit * Reason Onset Date Comments Blood Sugar Problem 09/14/2014 Encounter Details Date Type Department Care Team (Late st Contact Info) Description 09/14/2014 Telephone [facility] Pediatrics - Diabetes Mgmt [address] [place] [address] [place] [address] [facility] [address] [address] [place] [address] Blood Sugar Problem Social History Tobacco Use Types Packs/Day Years Used Date Smoking Tobacco: Never Assessed Sex and Gender Information Value Date Recorded Sex Assigned at Not on file Gender Identity Not on file Sexual Orientation Not on file documented as of this encounter Miscellaneous Notes * Telephone Encounter - Nesha Celaya APRN-LILLY - 09/14/2014 4:09 PM CDT I spoke with school nurse, Carlita Meléndez, ([phone]) who reports that Anaid has been screamingand crying in her office for the past hour. Anaid had one test strip left and they attempted to check her Bg, but was unable to get the bg as Anaid was fighting. Bg at 1030 was 124 and Bg before lunch at 1230 was 121. Anaid ate 70 grams of CHO and got 1 unit of Humalog for lunch. I spoke with Dr. Olivas immediately who recommended to give a glucagon injection now and to call EMS if no improvement. I recommended to give glucagon now at least three times while on the phone with the nurse and she continued to try to get Anaid to drink juice despite my repeated recommendations. Glucagon was never given and Anaid's Bg increased to 179 at ~1630 when they were finally able to check a blood glucose and after Anaid drank a total of 12 oz. juice and 4 oz. regular soda. I reviewed with school nurse when to give glucagon (unconscious, seizure, combative, unable to safely swallow). I recommended to decrease lunch to 0.5 unit of Humalog per 45 grams of carbohydrate. I emphasized that Anaid must always have an adequate quantity of test strips at school. I faxed new lunch insulin dose to school. I notified Dr. Olivas of the above. documented in this encounter Plan of Treatment Not on file documented as of this encounter Visit Diagnoses Not on filedocumented in this encounter Care Teams Oil And Gas Field Technician Relationship Specialty Start Date End Date Alvarez Prabhakar MD [address] [place] [address] PCP - General 12/12/11 documented as of this encounter
--- OUTSIDE RECORDS SUMMARY | 2024-11-22 05:21 | XMS_ITS | Encounter Summary ---
Author Organization [facility] Address [address] [place] [address] Care Team Providers Care Real Estate Administrative Assistant Name Role Phone Alvarez Prabhakar MD Primary Care Provider [phone] Reason for Visit * Reason Onset Date Comments General 08/24/2012 Encounter Details Date Type Department Care Team (Late st Contact Info) Description 08/24/2012 Telephone [facility] Pediatrics - Diabetes Mgmt [address] [place] [address] Kory Lopez APRN-INCLUSION MANAGER [address] [place] [id number] General Social History Tobacco Use Types Packs/Day Years Used Date Smoking Tobacco: Never Assessed Sex and Gender Information Value Date Recorded Sex Assigned at Not on file Gender Identity Not on file Sexual Orientation Not on file documented as of this encounter Miscellaneous Notes * Telephone Encounter - Jones Mcconnell RN - 08/27/2012 3:30 PM CDT I returned mom's call. See doc flow sheet. PLAN: Decrease lunch to 0.5:40. Call the exchange this weekend with lows or problems, otherwise call Thursday, mom agreed. I will fax school: [phone] Per protocol: Insulin Dose Adjustment Protocol for Pediatric Patients with Diabetes Mellitus on Injections I. Process: A. Review daily blood glucose readings, insulin doses, diet, and activity over at least two days. B. Identify patterns of blood glucose levels which indicate the need for insulin dose adjustment based on the target ranges in Table 1. Table 1 Age of Child BG Before Meals BG After Meals BG Bedtime and Overnight Infants, toddlers & preschoolers (0-6 years) 100-200 100-250 120-200 School age (7-12 years) 80-180 100-200 100-180 Adolescents (13-19 years) 80-150 100-200 100-150 C. Identify the insulin (according to Tables 2a, 2b, or 3) that needs to be adjusted to correct a pattern of blood glucose readings that fall outside of the desired target range. D. Insulin Dose Adjustment of Lantus/Levemir and Rapid Acting Insulin (Humalog/NovoLog/Apidra) . 1. Adjust Lantus/Levemir according to the nocturnal, pre-breakfast or fasting blood glucose. A. If this check is above the target range for 3 to 5 days, increase the Lantus/Levemir by 10%. B. If this check is below the target range for 1 to 3 days, decrease the Lantus/Levemir by 10%. 2. Adjust Humalog, Novolog or Apidra according to the 2-hour, post-prandial blood glucose or the following pre-meal blood glucose. A. If this check is above the target range for 2 to 5 days, increase the insulin to carbohydrate ratio of the preceding meal/snack according to Tables 2a and 2c below. If this check is below the target range for 2 to 3 days, decrease the insulin to carbohydrate ratio of the preceding meal/snack according to Tables 2b, and 2c below. Table 2a For a blood glucose pattern above target range at this time: Increase insulin to carbohydrate ratioat this meal: Before lunch Breakfast or morning snack Before dinner Lunch or afternoon snack Before Bedtime Dinner Table 2b For a blood glucose pattern below target range at this time: Decrease insulin to carbohydrate ratioat this meal: Before lunch Breakfast or morning snack Before dinner Lunch or afternoon snack Before Bedtime Dinner Table 2c For an insulin to carbohydrate ratio of this: Increase or decrease by this many grams: 1 unit per 40 grams to 1 unit per 75 grams 10 grams (ex. change 1:40 to 1:30 or 1:50) 1 unit per 15 grams to 1 unit per 39 grams 5 grams (ex. change 1:15 to 1:10 or 1:20) 1 unit per 10 grams up to 1 unit per 14 grams 2 grams (ex. change 1:10 to 1:8 or 1:12) 1 unit per 9 grams to 1 unit per 3 grams 1 gram (ex. change 1:9 to 1:8 or 1:10) 3. Adjustment of the rapid acting correction dose (Humalog/NovoLog/Apidra): The initial correction dose of rapid acting insulin should be established by a Physician or Nurse Practitioner. For children age 6 years and younger, consult a physician or nurse practitioner when changing the correction dose. For children age 7 and older, the correction dose may be increased if itdoes not lower the post meal blood glucose to the desired range or decreased if it lowers the post meal blood glucose too much. Using the Rule of 1800 calculation, divide 1800 by the average total daily dose of insulin to determine the insulin sensitivity factor. Example: If an adolescent has a Lantus dose of 20 units and takes a daily average of 25 units of NovoLog, the total daily insulin dose is 45 units. The insulin sensitivity factor is 40 (1800 divided by 45). The target blood glucose range for an adolescent is 80-150 (see Table 1). The correction dose for this child would be 1 unit of rapid acting insulin for every 40 mg/dL to correct to a blood glucose of 150. Correction doses must be spaced at least 2 hours apart and should be given with food to prevent hypoglycemia. If a correction dose is given at bedtime, decrease it by 50% to prevent nocturnal hypoglycemia. 4. Wait 2 to 3 days before making additional changes in the insulin that has just been changed. If the patient has hypoglycemia (blood sugar less than 80 for child under age 7 years or less than 70 for child age 7 years and older, or symptoms) the insulin may be adjusted before waiting for a 2 to 3day pattern to occur. 5. After making a change in insulin dose adjustment, ask the parent/caregiver/patient to call back in 2-7 days to review blood glucose levels. 6. Suggest that the parent/caregiver/patient check blood glucose during the night for 2-3 nights ifthe Lantus/Levemir dose is increased. E. Insulin Dose Adjustment of NPH with Rapid Acting Insulin (Humalog/NovoLog/Regular) 1. Increase the appropriate insulin dose by 10% if the blood glucose levels are higher than the topof the target range for 2-3 days in a row at the same time of day with usual diet and activity. 2. Decrease the appropriate insulin dose by 10% if the blood glucose results are lower than the bottom of the target range for 2-3 days in a row at the same time of day with usual diet and activity. . Table 3 For a Blood Glucose Pattern at This Time: Adjust this Insulin: Before breakfast Dinner or bedtime NPH At mid-morning snack or before lunch Morning Regular/NovoLog/Humalog At afternoon snack or before dinner Morning NPH Before bedtime Dinner Regular/NovoLog/Humalog During the night Dinner or bedtime NPH 3. Wait 2 to 3 days before making additional changes in the insulin that has just been changed. If hypoglycemia occurs (blood sugar less than 80 for child under age 6 years and younger, less than 70 for child age 7 years and older, or symptoms), the insulin may be adjusted before waiting for a 2 to3 day pattern. 4. After making a change in insulin dose adjustment, ask the caregiver/patient to call back in 2-7 days to review blood glucose levels. 5. Suggest that the parent/caregiver/patient check blood glucose during the night for 2-3 nights ifevening NPH is increased. * Telephone Encounter - Jones Mcconnell RN - 08/26/2012 11:19 AM CDT I returned mom's call, see doc flowsheet. No changes advised, per protocol. Mom to call tomorrow. Insulin Dose Adjustment Protocol for Pediatric Patients with Diabetes Mellitus on Injections I. Process: A. Review daily blood glucose readings, insulin doses, diet, and activity over at least two days. B. Identify patterns of blood glucose levels which indicate the need for insulin dose adjustment based on the target ranges in Table 1. Table 1 Age of Child BG Before Meals BG After Meals BG Bedtime and Overnight Infants, toddlers & preschoolers (0-6 years) 100-200 100-250 120-200 School age (7-12 years) 80-180 100-200 100-180 Adolescents (13-19 years) 80-150 100-200 100-150 C. Identify the insulin (according to Tables 2a, 2b, or 3) that needs to be adjusted to correct a pattern of blood glucose readings that fall outside of the desired target range. D. Insulin Dose Adjustment of Lantus/Levemir and Rapid Acting Insulin (Humalog/NovoLog/Apidra) . 1. Adjust Lantus/Levemir according to the nocturnal, pre-breakfast or fasting blood glucose. A. If this check is above the target range for 3 to 5 days, increase the Lantus/Levemir by 10%. B. If this check is below the target range for 1 to 3 days, decrease the Lantus/Levemir by 10%. 2. Adjust Humalog, Novolog or Apidra according to the 2-hour, post-prandial blood glucose or the following pre-meal blood glucose. A. If this check is above the target range for 2 to 5 days, increase the insulin to carbohydrate ratio of the preceding meal/snack according to Tables 2a and 2c below. If this check is below the target range for 2 to 3 days, decrease the insulin to carbohydrate ratio of the preceding meal/snack according to Tables 2b, and 2c below. Table 2a For a blood glucose pattern above target range at this time: Increase insulin to carbohydrate ratioat this meal: Before lunch Breakfast or morning snack Before dinner Lunch or afternoon snack Before Bedtime Dinner Table 2b For a blood glucose pattern below target range at this time: Decrease insulin to carbohydrate ratioat this meal: Before lunch Breakfast or morning snack Before dinner Lunch or afternoon snack Before Bedtime Dinner Table 2c For an insulin to carbohydrate ratio of this: Increase or decrease by this many grams: 1 unit per 40 grams to 1 unit per 75 grams 10 grams (ex. change 1:40 to 1:30 or 1:50) 1 unit per 15 grams to 1 unit per 39 grams 5 grams (ex. change 1:15 to 1:10 or 1:20) 1 unit per 10 grams up to 1 unit per 14 grams 2 grams (ex. change 1:10 to 1:8 or 1:12) 1 unit per 9 grams to 1 unit per 3 grams 1 gram (ex. change 1:9 to 1:8 or 1:10) 3. Adjustment of the rapid acting correction dose (Humalog/NovoLog/Apidra): The initial correction dose of rapid acting insulin should be established by a Physician or Nurse Practitioner. For children age 6 years and younger, consult a physician or nurse practitioner when changing the correction dose. For children age 7 and older, the correction dose may be increased if itdoes not lower the post meal blood glucose to the desired range or decreased if it lowers the post meal blood glucose too much. Using the Rule of 1800 calculation, divide 1800 by the average total daily dose of insulin to determine the insulin sensitivity factor. Example: If an adolescent has a Lantus dose of 20 units and takes a daily average of 25 units of NovoLog, the total daily insulin dose is 45 units. The insulin sensitivity factor is 40 (1800 divided by 45). The target blood glucose range for an adolescent is 80-150 (see Table 1). The correction dose for this child would be 1 unit of rapid acting insulin for every 40 mg/dL to correct to a blood glucose of 150. Correction doses must be spaced at least 2 hours apart and should be given with food to prevent hypoglycemia. If a correction dose is given at bedtime, decrease it by 50% to prevent nocturnal hypoglycemia. 4. Wait 2 to 3 days before making additional changes in the insulin that has just been changed. If the patient has hypoglycemia (blood sugar less than 80 for child under age 7 years or less than 70 for child age 7 years and older, or symptoms) the insulin may be adjusted before waiting for a 2 to 3day pattern to occur. 5. After making a change in insulin dose adjustment, ask the parent/caregiver/patient to call back in 2-7 days to review blood glucose levels. 6. Suggest that the parent/caregiver/patient check blood glucose during the night for 2-3 nights ifthe Lantus/Levemir dose is increased. E. Insulin Dose Adjustment of NPH with Rapid Acting Insulin (Humalog/NovoLog/Regular) 1. Increase the appropriate insulin dose by 10% if the blood glucose levels are higher than the topof the target range for 2-3 days in a row at the same time of day with usual diet and activity. 2. Decrease the appropriate insulin dose by 10% if the blood glucose results are lower than the bottom of the target range for 2-3 days in a row at the same time of day with usual diet and activity. . Table 3 For a Blood Glucose Pattern at This Time: Adjust this Insulin: Before breakfast Dinner or bedtime NPH At mid-morning snack or before lunch Morning Regular/NovoLog/Humalog At afternoon snack or before dinner Morning NPH Before bedtime Dinner Regular/NovoLog/Humalog During the night Dinner or bedtime NPH 3. Wait 2 to 3 days before making additional changes in the insulin that has just been changed. If hypoglycemia occurs (blood sugar less than 80 for child under age 6 years and younger, less than 70 for child age 7 years and older, or symptoms), the insulin may be adjusted before waiting for a 2 to3 day pattern. 4. After making a change in insulin dose adjustment, ask the caregiver/patient to call back in 2-7 days to review blood glucose levels. 5. Suggest that the parent/caregiver/patient check blood glucose during the night for 2-3 nights ifevening NPH is increased. * Telephone Encounter - Jones Mcconnell RN - 08/24/2012 3:14 PM CDT I returned mom's call. See doc flowsheet. No changes recommended (per protocol). Mom to call tomorrow. Insulin Dose Adjustment Protocol for Pediatric Patients with Diabetes Mellitus on Injections I. Process: A. Review daily blood glucose readings, insulin doses, diet, and activity over at least two days. B. Identify patterns of blood glucose levels which indicate the need for insulin dose adjustment based on the target ranges in Table 1. Table 1 Age of Child BG Before Meals BG After Meals BG Bedtime and Overnight Infants, toddlers & preschoolers (0-6 years) 100-200 100-250 120-200 School age (7-12 years) 80-180 100-200 100-180 Adolescents (13-19 years) 80-150 100-200 100-150 C. Identify the insulin (according to Tables 2a, 2b, or 3) that needs to be adjusted to correct a pattern of blood glucose readings that fall outside of the desired target range. D. Insulin Dose Adjustment of Lantus/Levemir and Rapid Acting Insulin (Humalog/NovoLog/Apidra) . 1. Adjust Lantus/Levemir according to the nocturnal, pre-breakfast or fasting blood glucose. A. If this check is above the target range for 3 to 5 days, increase the Lantus/Levemir by 10%. B. If this check is below the target range for 1 to 3 days, decrease the Lantus/Levemir by 10%. 2. Adjust Humalog, Novolog or Apidra according to the 2-hour, post-prandial blood glucose or the following pre-meal blood glucose. A. If this check is above the target range for 2 to 5 days, increase the insulin to carbohydrate ratio of the preceding meal/snack according to Tables 2a and 2c below. If this check is below the target range for 2 to 3 days, decrease the insulin to carbohydrate ratio of the preceding meal/snack according to Tables 2b, and 2c below. Table 2a For a blood glucose pattern above target range at this time: Increase insulin to carbohydrate ratioat this meal: Before lunch Breakfast or morning snack Before dinner Lunch or afternoon snack Before Bedtime Dinner Table 2b For a blood glucose pattern below target range at this time: Decrease insulin to carbohydrate ratioat this meal: Before lunch Breakfast or morning snack Before dinner Lunch or afternoon snack Before Bedtime Dinner Table 2c For an insulin to carbohydrate ratio of this: Increase or decrease by this many grams: 1 unit per 40 grams to 1 unit per 75 grams 10 grams (ex. change 1:40 to 1:30 or 1:50) 1 unit per 15 grams to 1 unit per 39 grams 5 grams (ex. change 1:15 to 1:10 or 1:20) 1 unit per 10 grams up to 1 unit per 14 grams 2 grams (ex. change 1:10 to 1:8 or 1:12) 1 unit per 9 grams to 1 unit per 3 grams 1 gram (ex. change 1:9 to 1:8 or 1:10) 3. Adjustment of the rapid acting correction dose (Humalog/NovoLog/Apidra): The initial correction dose of rapid acting insulin should be established by a Physician or Nurse Practitioner. For children age 6 years and younger, consult a physician or nurse practitioner when changing the correction dose. For children age 7 and older, the correction dose may be increased if itdoes not lower the post meal blood glucose to the desired range or decreased if it lowers the post meal blood glucose too much. Using the Rule of 1800 calculation, divide 1800 by the average total daily dose of insulin to determine the insulin sensitivity factor. Example: If an adolescent has a Lantus dose of 20 units and takes a daily average of 25 units of NovoLog, the total daily insulin dose is 45 units. The insulin sensitivity factor is 40 (1800 divided by 45). The target blood glucose range for an adolescent is 80-150 (see Table 1). The correction dose for this child would be 1 unit of rapid acting insulin for every 40 mg/dL to correct to a blood glucose of 150. Correction doses must be spaced at least 2 hours apart and should be given with food to prevent hypoglycemia. If a correction dose is given at bedtime, decrease it by 50% to prevent nocturnal hypoglycemia. 4. Wait 2 to 3 days before making additional changes in the insulin that has just been changed. If the patient has hypoglycemia (blood sugar less than 80 for child under age 7 years or less than 70 for child age 7 years and older, or symptoms) the insulin may be adjusted before waiting for a 2 to 3day pattern to occur. 5. After making a change in insulin dose adjustment, ask the parent/caregiver/patient to call back in 2-7 days to review blood glucose levels. 6. Suggest that the parent/caregiver/patient check blood glucose during the night for 2-3 nights ifthe Lantus/Levemir dose is increased. E. Insulin Dose Adjustment of NPH with Rapid Acting Insulin (Humalog/NovoLog/Regular) 1. Increase the appropriate insulin dose by 10% if the blood glucose levels are higher than the topof the target range for 2-3 days in a row at the same time of day with usual diet and activity. 2. Decrease the appropriate insulin dose by 10% if the blood glucose results are lower than the bottom of the target range for 2-3 days in a row at the same time of day with usual diet and activity. . Table 3 For a Blood Glucose Pattern at This Time: Adjust this Insulin: Before breakfast Dinner or bedtime NPH At mid-morning snack or before lunch Morning Regular/NovoLog/Humalog At afternoon snack or before dinner Morning NPH Before bedtime Dinner Regular/NovoLog/Humalog During the night Dinner or bedtime NPH 3. Wait 2 to 3 days before making additional changes in the insulin that has just been changed. If hypoglycemia occurs (blood sugar less than 80 for child under age 6 years and younger, less than 70 for child age 7 years and older, or symptoms), the insulin may be adjusted before waiting for a 2 to3 day pattern. 4. After making a change in insulin dose adjustment, ask the caregiver/patient to call back in 2-7 days to review blood glucose levels. 5. Suggest that the parent/caregiver/patient check blood glucose during the night for 2-3 nights ifevening NPH is increased. documented in this encounter Plan of Treatment Not on file documented as of this encounter Visit Diagnoses Not on filedocumented in this encounter Care Teams Real Estate Administrative Assistant Relationship Specialty Start Date End Date Alvarez Prabhakar MD [address] [place] [id number] PCP - General 12/12/11 documented as of this encounter
--- OUTSIDE RECORDS SUMMARY | 2024-11-22 05:21 | XMS_ITS | Encounter Summary ---
Author Organization [facility] Address [address] [place] [address] Care Team Providers Care Qualitative Researcher Name Role Phone Alvarez Prabhakar MD Primary Care Provider [phone] Reason for Visit * Reason Onset Date Comments Blood Sugar Problem 09/14/2014 Encounter Details Date Type Department Care Team (Late st Contact Info) Description 09/14/2014 Telephone [facility] Pediatrics - Diabetes Mgmt [address] [place] [address] Leeanne Croft, WENDI-LILLY Retired Blood Sugar Problem Social History Tobacco Use Types Packs/Day Years Used Date Smoking Tobacco: Never Assessed Sex and Gender Information Value Date Recorded Sex Assigned at Not on file Gender Identity Not on file Sexual Orientation Not on file documented as of this encounter Miscellaneous Notes * Telephone Encounter - Nesha Celaya APRN-CNP - 09/14/2014 2:54 PM CDT I returned call to Carlita Meléndez, school nurse, at [phone] ext [phone] and clarified when Anaidneeds insulin for a snack. I recommended to give Humalog if eating 30 grams or more for a snack (0.5 unit per 30 grams). I discussed that correction dose should only be given at meals and correction doses should be spaced at least 2 hours apart. documented in this encounter Plan of Treatment Not on file documented as of this encounter Visit Diagnoses Not on filedocumented in this encounter Care Teams Qualitative Researcher Relationship Specialty Start Date End Date Alvarez Prabhakar MD [address] [place] [place] [phone] PCP - General 12/12/11 documented as of this encounter
--- OUTSIDE RECORDS SUMMARY | 2024-11-22 05:21 | XMS_ITS | Encounter Summary ---
Author Organization [facility] Address [address] [place] [address] Care Team Providers Care Planning Aide Name Role Phone Alvarez Prabhakar MD Primary Care Provider Encounter Details Date Type Department Care Team (Latest Contact Info) Description 04/08/2013 9:00 AM CDT - 04/08/2013 11:59 PM T Hospital Encounter [facility] Pediatrics - Endocrinology [address] [place] [address] Breana Olivas MD Discharge Disposition: Home or Self Care Social History Tobacco Use Types Packs/Day Years Used Date Smoking Tobacco: Never Assessed Sex and Gender Information Value Date Recorded Sex Assigned at Not on file Gender Identity Not on file Sexual Orientation Not on file documented as of this encounter Medications at [...] injections 4-6 times daily. 200 Each 11 08/18/2012 10/19/2013 insulin syringe-needle (B-D INS SYR HALF-UNIT .3CC/31G) 31G X 5/16 0.3 ML syringeIndications:Nahed betes mellitus type 1 (HCC) Use for injections 1-2 times daily. 100 Each 11 08/18/2012 06/20/2014 documented as of this encounter Progress Notes * Mar Mcrae, KAREN/VEE - 04/08/2013 3:17 PM CDT Lantus Education Class Date: 04/08/2013 Anaid Dimas is a 7 y.o. 5 m.o. female Assessment Met with father in diabetes clinic for requested carbohydrate counting class as pt will be visitingfather this summer and does not know how to read a label or calculate insulin based on carbohydratecontent of meals/snacks. Nutrition Diagnosis: food and nutrition related knowledge deficit related to no prior carbohydrate counting nutrition education as evidenced by father's request for class. Intervention: Identified food sources of basic nutrients and its effect on blood glucose level Explained age appropriate meal planning to promote optimal growth and development Instructed how to read a nutrition label for carbohydrate content per serving Encouraged measuring intake, using food labels and Calorie Robert book. Suggested to maintain detailed food record to help with insulin calculations. Encouraged creating list of usual food choices in carbohydrate grams per usual serving sizes Goal: Father will verbalize understanding of carbohydrate counting: Goal met Completed Nutrient Identification chart: 100% accuracy Completed carbohydrate counting worksheet: 100% accuracy Mar Mcrae RD/VEE * Xochilt Child RN - 04/08/2013 11:40 AM CDT I met with Anaid's father, Sonny Dimas for diabetes education on 04/08/13 at 0930. I provided dad with a folder containing diabetes education material handouts, ???A First Book For UnderstandingDiabetes,?? Calorie Robert book, glucose tablets, glucosticks, and an Accu-Chek Drake meter. I discussed types of and cause of diabetes. I discussed treatment for diabetes including insulin, exercise, and meal planning/carbohydrate counting. I gave dad a Accu-chek Drake blood glucose meter. Idemonstrated how to do a fingerstick blood glucose check and how to use the Accu-Chek Drake meter. Idiscussed when to check blood glucose levels at home. I demonstrated how to record blood glucose levels, insulin doses, and ketone checks in logbook. I discussed the target blood glucose range for this patient (80-180). I discussed hemoglobin A1c. I discussed the honeymoon phase of diabetes. I discussed hypoglycemia including the following: what is considered to be a low blood sugar for this patient, causes, signs/symptoms, treatment, and dangers of frequent lows. I reviewed what is considered a severe low blood sugar. I discussed when Glucagon is warranted including demonstration on how to administer Glucagon, action, onset, side effects, calling 9-1-1, what to do once awake/alert, and calling our office. I discussed hyperglycemia including the following: what is considered to be a high blood sugar for this patient, causes, signs/symptoms, treatment, ketosis/ketoacidosis, and how and when to check ketones. I discussed sick day guidelines and when the diabetes physician/nurse should be contacted after discharge. I discussed the Lantus/Humalog insulin regimen and reviewed the Lantus/Humalog/NovoLog teaching checklist. I informed dad Anaid currently is not on Lantus however at some point she will be. I demonstrated how to draw up insulin using a vial/syringe and demonstrated how to give a syringe injection. Dad return demonstrated this skill. I reviewed the types, action, onset, peak, and duration of each insulin. I gave dad a copy of the insulin activity graph and reviewed it with him. I discussed injection site rotation, lipohypertrophy, and sharps disposal. I demonstrated the Humapen Luxura Hd insulin pen and allowed dad to practice with it. Dad was able to acc urately calculate Humalog/NovoLog food dose when given practice examples. I reviewed Anaid's current insulin doses: Humalog breakfast and dinner 0.5 units for every 30 grams carbohydrates, lunch 0.5 units for every 40 grams carbohydrates, and snacks 0.5 units for every 20 grams carbohydrates. Currently, Anaid does not have a correction dose so this was not reviewed. I stressed the importance of good communication between father and mother regarding insulin doses as this can change frequently. I had dad completed the diabetes quiz. Dad scored 24/28 questions. I thoroughly reviewed all questions missed on the diabetes quiz. I reviewed our office staff/phone numbers including the after hoursnumber. I reviewed what warrants an immediate call to our office. I encouraged dad to call our office with any questions when Anaid is in his care. documented in this encounter Plan of Treatment Not on file documented as of this encounter Visit Diagnoses Not on filedocumented in this encounter Care Teams Planning Aide Relationship Specialty Start Date End Date Alvarez Prabhakar MD [address] [place] [address] PCP - General 12/12/11 documented as of this encounter
--- OUTSIDE RECORDS SUMMARY | 2024-11-22 05:21 | XMS_ITS | Encounter Summary ---
Author Organization [facility] Address [address] [place] [address] Care Team Providers Care Chief Crna Name Role Phone Alvarez Prabhakar MD Primary Care Provider [phone] Reason for Visit * Reason Onset Date Comments MEDICATION REFILL 10/19/2013 Encounter Details Date Type Department Care Team (Late st Contact Info) Description 10/19/2013 Refill [facility] Pediatrics - Diabetes [facility] [address] [place] [address] Breana Olivas MD MEDICATION REFILL [...] mention of complication, not stated as uncontrolled Diabetes mellitus type 1, uncontrolled Type I (juvenile type) diabetes mellitus without mention of complication, uncontrolled documented in this encounter Care Teams Chief Crna Relationship Specialty Start Date End Date Alvarez Prabhakar MD [address] [place] [address] PCP - General 12/12/11 documented as of this encounter
--- OUTSIDE RECORDS SUMMARY | 2024-11-22 05:21 | XMS_ITS | Encounter Summary ---
Author Organization [facility] Address [address] [place] [address] Care Team Providers Care Hand Brim Ironer Name Role Phone Alvarez Prabhakar MD Primary Care Provider [phone] Reason for Visit * Reason Onset Date Comments MEDICATION REFILL 08/20/2012 Encounter Details Date Type Department Care Team (Late st Contact Info) Description 08/20/2012 Refill [facility] Pediatrics - Diabetes [facility] [address] [place] [address] Breana Olivas MD MEDICATION REFILL Social History Tobacco Use Types Packs/Day Years Used Date Smoking Tobacco: Never Assessed Sex and Gender Information Value Date Recorded Sex Assigned at Not on file Gender Identity Not on file Sexual Orientation Not on file documented as of this encounter Plan of Treatment Not on file documented as of this encounter Visit Diagnoses Diagnosis Diabetes mellitus type 1, uncontrolled- Primary Type I (juvenile type) diabetes mellitus without mention of complication, uncontrolled documented in this encounter Care Teams Hand Brim Ironer Relationship Specialty Start Date End Date Alvarez Prabhakar MD [address] [place] [phone] PCP - General 12/12/11 documented as of this encounter
--- OUTSIDE RECORDS SUMMARY | 2024-11-22 05:21 | XMS_ITS | Encounter Summary ---
Author Organization [facility] Address [address] [facility] [address] [place] [address] Care Team Providers Care Digital Advertising Specialist Name Role Phone Alvarez Prabhakar MD Primary Care Provider Encounter Details Date Type Department Care Team (Late st Contact Info) Description 08/31/2012 Telephone [facility] Pediatrics - Diabetes Mgmt [address] [place] [address] Leeanne Croft, DATA SECURITY COORDINATOR-HELICOPTER TECHNICIAN Retired Social History Tobacco Use Types Packs/Day Years Used Date Smoking Tobacco: Never Assessed Sex and Gender Information Value Date Recorded Sex Assigned at Not on file Gender Identity Not on file Sexual Orientation Not on file documented as of this encounter Miscellaneous Notes * Telephone Encounter - Jones Mcconnell RN - 08/31/2012 1:00 PM CDT I returned mom's call, see doc flowsheet. They ate at a buffet last night and Anaid did not finish her carbs, then dropped low later. I discussed the importance of replacing any uneaten carbs withanother form of carb, mom agreed and verbalized understanding. Mom to call tomorrow. documented in this encounter Plan of Treatment Not on file documented as of this encounter Visit Diagnoses Not on filedocumented in this encounter Additional Health Concerns Infection Onset Date Last Indicated Resolved Time COVID-19 Under Investigation 03/03/2021 03/03/2021 03/03/2021 11:11 AM CDT documented as of this encounter Care Teams Digital Advertising Specialist Relationship Specialty Start Date End Date Alvarez Prabhakar MD [address] [place] [address] PCP - General 12/12/11 documented as of this encounter
--- OUTSIDE RECORDS SUMMARY | 2024-11-22 05:21 | XMS_ITS | Encounter Summary ---
Author Organization [facility] Address [address] [place] [address] Care Team Providers Care Product Technology Scientist Name Role Phone Alvarez Prabhakar MD Primary Care Provider [phone] Encounter Details Date Type Department Care Team (Latest Contact Info) Description 05/16/2013 8:30 AM CDT - 05/16/2013 11:59 PM CDT Hospital Encounter [facility] Pediatrics - Diabetes [address] [address] Breana Olivas MD Discharge Disposition: Home or [...] - Inhaled Oxygen Concentration - - Weight 23.2 kg (51 lb 3.2 oz) 05/16/2013 8:50 AM CDT Height 127.7 cm (4' 2.28 ) 05/16/2013 8:50 AM CD T Body Mass Index 14.24 05/16/2013 8:50 AM CDT Body Mass Index Percentile 12.53% 05/16/2013 8:5 0 AM CDT Growth Chart: [facility] (Girls, 2- 20 Years) documented in this encounter Medications at Time [...] as of this encounter Progress Notes * Xochilt Child RN - 05/18/2013 2:40 PM CDTQuick Note: Called family to notify them screening labs were normal. There was no answer, left message stating labs were normal and to call with questions. * Breana Olivas MD - 05/16/2013 9:06 AM CDT Anaid Whitaker and her mother were seen in our Pediatric Endocrinology offices on 05/16/13. She is a 7 y.o. 7 m.o. girl who is followed for early type 1 diabetes diagnosed in 08/04. Interval History: Healthy. Her father came for teaching a few weeks ago. Past Medical History: Reviewed with family. Diabetes Therapies: Humalog 1/2 Unit: 30 grams; no Lantus. Total daily insulin: 0.17+ U/kg/d. Other Medications: None Meal Plan: Anaid Whitaker/her parent(s) report the child is on a carb- counting meal plan. Sports/Physical Exercise: Soccer, running Blood Glucose Monitoring: Anaid Whitaker's glucose monitoring is done 1-3 x day using an Accu-Chek Drake with a target range of 80-180. Meter download reviewed; most values in 80-180 range. Hypoglycemia: Frequency/Treatment: Rare. Anaid has minimal symptoms. Treatment is adequate and injectable glucagon is available. Urine Ketone Monitoring: Yes, when glucose >250 and ill. Review of Systems: General: good energy and appetite Skin: heat rash Eyes: glasses ENT: ~7 fillings Respiratory: negative GI: normal BM at least daily; diarrhea after dairy : enuresis almost nightly Neurologic: ?seizure at 5 years; EEG done Psychiatric: negative Endocrine: negative All other systems reviewed and were negative. Family History: PGF has T2DM. Social History: Anaid Lives with: Mother only School: [employer] Physical Examination: Ht 1.277 m (4' 2.28 ) Wt 23.224 kg (51 lb 3.2 oz) BMI 14.24 kg/m2 14.82%ile based on CDC 2-20 Years [id number] data. 30.07%ile based on CDC 2- 20 Years [id number] data. Body mass index is 14.24 kg/(m^2). 12.52%ile based on CDC 2-20 Years BMI-for-age data. General: Well-appearing, slim, hyperactive girl. Skin/Hair/Nails: Warm and dry. No insulin lipohypertrophy. No observable rashes. Eyes: Sclerae clear, PERRLA, EOMs intact; no abnormal fundoscopic findings. Dentition: Good hygiene. Neck: Supple. Thyroid not enlarged. Chest: Symmetric. Lungs clear to auscultation, unlabored breathing. CV system unremarkable with regular heart rate and rhythm, normal S1/S2, no murmurs, rubs, or gallops. Abdomen: Soft, non-tender, without organ enlargement or masses. Pubertal maturation: Miquel 2 pubic hair; no breast buds. Extremities: No cyanosis or edema. Neurologic system: Non-focal. DTRs 2+ and equal. Normal sensation for light touch and vibration. ID Tag Status: Not wearing Results for orders placed during the hospital encounter of 05/16/13 HEMOGLOBIN A1C - POINT OF CARE (IP) Component Value Range Hgb A1C POCT 7.4 (*) 3.4 - 6.1 % QC Verified yes Yes Assessment: Early type 1 diabetes under adequate control. No known complications. Management Plan: No change in meal doses. Reviewed what to expect as honeymoon comes to end. Call for frequent BS's >180. Return visit in 3 months. Addendum: Additional labs from this visit were unremarkable. Xochilt Child RN, notified family. Results for ANAID WHITAKER ( ) as of 05/17/2013 16:09 Ref. Range 05/16/2013 09:02 Cholesterol Latest Range: <170 mg/dL 154 TSH Latest Range: 0.35-4.95 uIU/mL 1.70 Transglutaminase IgA Latest Range: 0 - 19 Units 5 documented in this encounter Plan of Treatment Not on file documented as of this encounter Procedures Procedure Name Priority Date/Time Associated Diagnosis Comments TISSUE TRANSGLUTAMINASE AB IGA Routine 05/16/2013 9:02 AM CDT (Hcc) CHOLESTEROL BLOOD Routine 05/16/2013 9:0 2 AM CDT ([facility]) TSH Routine 05/16/2013 9:02 AM CDT ([facility]) HEMOGLOBIN A1C - POINT OF CARE (IP) Routine 05/16/2013 9:02 AM CDT ([facility]) documented in this encounter Results * TSH (05/16/2013 9:02 AM CDT) TSH 1.70 0.35 - 4.95 uIU/mL 05/16/2013 9:49 AM CDT [facility] Blood specimen (specimen) BLOOD SPECIMEN / Unknown Venipuncture / Unknown 05/16/2013 9:02 AM CDT 05/16/2013 9:07 AM CDT Breana Olivas MD LAB - CHEMISTRY ORDE CECE [facility] [place] [address] * TISSUE TRANSGLUTAMINASE AB IGA (05/16/2013 9:02 AM CDT) Tissue Transglutaminase (tTG) Ab, IgA 5 0 - 19 Units 05/17/2013 1:16 PM CDT [facility] Comment: INTERPRETIVE INFORMATION: Tissue Transglutaminase (tTG) Antibody, [...] Olivas MD LAB - SEROLOGY ORDER CHASIDY [facility] [address] [place] [address] * CHOLESTEROL BLOOD (05/16/2013 9:02 AM CDT) Cholesterol 154 <170 mg/dL 05/16/2013 9:31 AM CDT [facility] Blood specimen (specimen) BLOOD SPECIMEN / Unknown Venipuncture / Unknown 05/16/2013 9:02 AM CDT 05/16/2013 9:07 AM CDT Narrative [facility] - 05/16/2013 9:31 AM CDT Cholesterol [...] - CHEMISTRY MANJULA ZHAO Performing Organization Address City/[facility]/ZIP Co de Phone Number [facility] [address] [place] [address] * (ABNORMAL) HEMOGLOBIN A1C - POINT OF CARE (IP) (05/16/2013 9:02 AM CDT) Pathologist [facility] Hemoglobin A1c POCT 7.4(A) 3.4 - 6.1 % [facility] POCT TESTING QC Verified yes Yes [facility] PO CT TESTING Blood specimen (specimen) BLOOD SPECIMEN / Unknown 05/16/2013 9:02 AM CDT Breana Olivas MD LAB - POINT OF CARE ORDERABLES Performing Organization Address City/[facility] Co de Phone Number [facility] POCT TESTING [address] [place] [address] documented in this encounter Visit Diagnoses Diagnosis Type I (juvenile type) diabetes mellitus without mention of complication, not stated as uncontrolled (HCC) Type I (juvenile type) diabetes mellitus without mention of complication, not stated as uncontrolled documented in this encounter Care Teams Product Technology Scientist Relationship Specialty Start Date End Date Alvarez Prabhakar MD [address] [place] [phone] PCP - General 12/12/11 documented as of this encounter
--- OUTSIDE RECORDS SUMMARY | 2024-11-22 05:21 | XMS_ITS | Encounter Summary ---
Author Organization [facility] Address [address] [place] [address] Care Team Providers Care Stucco Laborer Name Role Phone Alvarez Prabhakar MD Primary Care Provider [phone] Reason for Visit * Reason Onset Date Comments Blood Sugar Problem 09/15/2014 Encounter Details Date Type Department Care Team (Late st Contact Info) Description 09/15/2014 Telephone [facility] Pediatrics - Diabetes Mgmt [address] [facility] [place] [address] [place] [address] [address] [place] [address] Blood Sugar Problem Social History Tobacco Use Types Packs/Day Years Used Date Smoking Tobacco: Never Assessed Sex and Gender Information Value Date Recorded Sex Assigned at Not on file Gender Identity Not on file Sexual Orientation Not on file documented as of this encounter Miscellaneous Notes * Telephone Encounter - Nesha Cleaya APRN-CNP - 09/15/2014 11:35 AM CDT I spoke with school RN, Carlita Meléndez, at [phone] ext [phone] who reports Bg 396 at 1030 negative ketones and gave water. Bg at 1045 was 330. Anaid is not ill. No vomiting. I recommended protein snack as Anaid wants a snack. Needs more glucagon at school. RN reports that she mixed the glucagon at school yesterday, but never gave it. I reviewed to give glucagon immediately if Anaid is unconscious, having a seizure, combative and refusing anything by mouth or unable to safely swallow. Icalled mother at [phone] and asked her to bring new ketostix and glucagon to school [employer] today. Mother is not sure if ketostix are old. Mother states that she was not aware that school was running low on test strips yesterday and sent new test strips today. I notified mother that lunch dose was decreased to 0.5 unit of Humalog per 45 grams of carbohydrate. I recommended to check ketones whenbg > 250 and to call immediately for moderate-large ketones or vomiting. documented in this encounter Plan of Treatment Not on file documented as of this encounter Visit Diagnoses Diagnosis Diabetes mellitus type 1 (HCC) Type I (juvenile type) diabetes mellitus without mention of complication, not stated as uncontrolled documented in this encounter Care Teams Stucco Laborer Relationship Specialty Start Date End Date Alvarez Prabhakar MD [address] [place] [phone] PCP - General 12/12/11 documented as of this encounter
--- OUTSIDE RECORDS SUMMARY | 2024-11-22 05:21 | XMS_ITS | Encounter Summary ---
Author Organization [facility] Address [address] [address] Care Team Providers Care Edi Coordinator Name Role Phone Alvarez Prabhakar MD Primary Care Provider [phone] Reason for Visit * Reason Comments Seizure Pt does not have a k nown hx of seizures. Mom states that she has had shaking episodes and urinary incontence over the past 2-3 months. Mom thought that pt was doing it on purpose. Pt had another of these episodes last night. Pt awake and alert now. Encounter Details Date Type Department Care Team (Late Contact Info) Description 12/12/2011 10:10 AM PROFESSOR OF COMMUNICATION AND WRITING - 12/12/2011 12:03 PM PROFESSOR OF COMMUNICATION AND WRITING Emergency ER at [address] [address] Meghna Rosen MD [address] [place] [id number] Seizure-like activity (HCC) Discharge Disposition: Home or Self Care Social History Tobacco Use Types Packs/Day Years Used Date Smoking Tobacco: Never Assessed Sex and Gender Information Value Date Recorded Sex Assigned at Not on file Gender Identity Not on file Sexual Orientation Not on file documented as of this encounter Last Filed Vital Signs Vital Sign Reading Time Taken Comments Blood Pressure 96/50 12/12/2011 12:00 PM PROFESSOR OF COMMUNICATION AND WRITING Pulse 88 12/12/2011 10:15 AM PROFESSOR OF COMMUNICATION AND WRITING Temperature 36.9 ??C (98.4 ??F) 12/12/2011 10:[address] Respiratory Rate 24 12/12/2011 10:15 AM PROFESSOR OF COMMUNICATION AND WRITING Oxygen Saturation - - Inhaled Oxygen Concentration - - Weight 20.8 kg (45 lb 13.7 oz) 12/12/2011 10:15 AM PROFESSOR OF COMMUNICATION AND WRITING Height - - Body Mass Index - - documented in this encounter Discharge Instructions * Discharge Instructions* Letha Simpson MD - 12/12/2011 11:50 AM PROFESSOR OF COMMUNICATION AND WRITING Childhood Seizure Your child has had a seizure (convulsions). If this is the first seizure, it may have been a frightening experience. CAUSES A seizure disorder is a sign that something else may be wrong in the central nervous system. Seizures occur because of an abnormal release of electricity by the cells in the brain. Initial seizures may be caused by minor viral infections or raised temperatures (febrile seizures). They often happen when your child is tired or fatigued. Your child may have had jerking movements, become stiff or limp, or appeared distant. During a seizure your child may lose consciousness. They may not respond when you try to talk to them or touch them. DIAGNOSIS ?? The diagnosis is made by the child's history, as well as by electroencephalogram (EEG). An EEG is a painless test that can be done as an outpatient to determine if there are changes in the electrical activity of your child's brain. This may indicate if they have had a seizure. Specific brain wave patterns may indicate the type of seizure and help guide treatment. ?? Your child's doctor may also want to perform a CT scan or an MRI of your child's brain. This will determine if there are any neurologic conditions or abnormalities that may be causing the seizure.Most children who have had a seizure will have a normal CT or MRI of the head. ?? Most children who have a single seizure do not develop epilepsy which is a condition of repeatedseizures. HOME CARE INSTRUCTIONS ?? Your child will require follow up with their caregiver. Further testing and evaluation will be done if necessary. Your child's caregiver or the specialist to whom you are referred will determine if long-term treatment is needed. ?? After a seizure, your child may be confused, dazed, and drowsy. These symptoms (problems) often follow seizure activity. Medications given may also cause some of these changes. ?? It is unlikely another seizure will happen immediately follow the first seizure. This pause is arefractory period. Because of this, children are seldom admitted to the hospital unless there are other conditions present. ?? A seizure may follow a fainting episode. This has likely been caused by a temporary drop in blood pressure. These syncopal (fainting) seizures are generally not a cause for concern. Often no further evaluation is needed. ?? Headaches following a seizure are common. These will gradually improve over the next several hours. ?? Follow up with your child's caregiver as suggested. ?? Your child should not drive (teenagers), swim, or take part in dangerous activities until OK'd by their caregiver. IF YOUR CHILD HAS ANOTHER SEIZURE: ?? Remain calm. ?? Lay your child down, on their side, in a safe place (such as a bed or the floor), where they cannot get hurt by falling or banging against objects. ?? Turn their head to the side with their face downward so that any secretions or vomit in their mouth may drain out. ?? Loosen tight clothing. ?? Remove your child's glasses. ?? Try to time how long the seizure lasts. Record this. ?? Do not try to restrain your child; holding your child tightly will not stop the seizure. ?? Do not put objects or your fingers in your child's mouth. SEEK IMMEDIATE MEDICAL CARE IF: ?? There is a second seizure for your child. ?? There is any change in the level of your child's alertness. ?? Your child is irritable or there are changes in your child's behavior. ?? You are worried that your child is sick or is not acting normally. ?? Your child develops a severe headache, a stiff neck or an unusual rash. Document Released: 11/09/2006 Document Re-Released: 08/18/2009 ExitCare?? Patient Information ??2009 [employer]. ESSOR OF COMMUNICATION AND WRITING * Discharge Instructions* Document, Scanned - 12/15/2011 2:09 PM PROFESSOR OF COMMUNICATION AND WRITING ESSOR OF COMMUNICATION AND WRITING documented in this encounter ED Notes * Latanya Voss RN - 12/12/2011 12:02 PM CST Mom given discharge plan, ok with it, knows to follow up with neurology next week if she does not get a call. Pt alert and attentive, inquisitive about equipment. ESSOR OF COMMUNICATION AND WRITING * Meghna Rosen MD - 12/12/2011 10:55 AM CST Images from the original note were not included. EMERGENCY DEPARTMENT 12/12/[address] Alavrez Prabhakar MD We had the pleasure of caring for your patient, Anaid Dimas in our emergency department on 12/12/2011. A note from the provider(s) who cared for your patient is attached. Should you wish to access any laboratory results, please call . Should you wish to access any radiology results, please call , option 3. In addition, you can access patient information 24 hours a day, from any computer, through [employer], the online version of our electronic medical record. If you would like to use this service, please call Camryn Underwood, Connectivity Coordinator, at . We appreciate the opportunity to care for your patients. If you would like additional information, please call the emergency department directly at . Sincerely, Meghna Rosen MD Division of Emergency Medicine [facility] [place]. [place], [place] [facility] [place] DESIGNATED EMERGENCY DEPARTMENT 12/12/2011 10:55 AM Anaid Dimas [id number] [facility] EMERGENCY DEPT History Chief Complaint Patient presents with ??? Seizure Pt does not have a known hx of seizures. Mom states that she has had shaking episodes and urinary incontence over the past 2-3 months. Mom thought that pt was doing it on purpose. Pt had another of these episodes last night. Pt awake and alert now. HPI Comments: Anaid Dimas is a 6 y.o. Female previously well here for concern of possible seizures. Starting three months ago pt has been seen by other people to have randomly, pt will be talking, walking tv, will flex left elbow and jerking arm laterally and turns head to the left. Eyes open, deviated to the left, has had incontinence afterwards and wetting bed at night. Doesn't fall, goesback to usual activities after and lasts seconds. Last night mom witnessed for the first time. Stopped conversation and then resumed afterwards. Teachers noting decreased attention span and poor performance. No past medical history on file. No past surgical history on file. History Social History ??? Marital Status: Single Spouse Name: N/A Number of Children: N/A ??? Years of Education: N/A Occupational History ??? Not on file. Social History Main Topics ??? Smoking status: Not on file ??? Smokeless tobacco: Not on file ??? Alcohol Use: Not on file ??? Drug Use: Not on file ??? Sexually Active: Not on file Other Topics Concern ??? Not on file Social History Narrative ??? No narrative on file Medications No current outpatient prescriptions on file. Review of Systems Review of Systems Constitutional: Negative. HENT: Negative. Eyes: Negative. Respiratory: Negative. Cardiovascular: Negative. Gastrointestinal: Negative. Musculoskeletal: Negative. Neurological: Positive for seizures. Psychiatric/Behavioral: Negative. BP 105/72 Pulse 88 Temp 98.4 ??F Resp 24 Wt 20.8 kg (45 lb 13.7 oz) Physical Exam Physical Exam Constitutional: She appears well-nourished. She is active. No distress. Eyes: EOM are normal. Pupils are equal, round, and reactive to light. Neck: Normal range of motion. Neck supple. No adenopathy. Cardiovascular: Normal rate and regular rhythm. Pulses are strong. Pulmonary/Chest: Effort normal and breath sounds normal. There is normal air entry. Abdominal: Soft. Bowel sounds are normal. Neurological: She is alert. No cranial nerve deficit. She exhibits normal muscle tone. Coordinationnormal. Skin: Skin is warm. Capillary refill takes less than 3 seconds. Procedures Procedures EKG Interpretation Lab/SPO2 Interpretation Progress Notes ED Course Medical Decision Making I have reviewed the: Nursing Notes and Vitals. I have discussed the case with Family/Caregiver. I have personally seen and examined this patient. I have fully participated in the care of this patient. I have reviewed all pertinent clinical information available to me during this encounter, including history, physical exam and plan. I have reviewed available labs and radiographic studies. I reviewed the nurses notes I reviewed the vital signs 6yo with probably partial seizures, will refer to neuro new onset sz clinic. D/w family to call clinic if not contacted by next Thursday, otherwise they will be contacted, and return with worsening symptoms. Avoid dangerous situations until then. Clinical Impression No diagnosis found. ESSOR OF COMMUNICATION AND WRITING * Letha Simpson MD - 12/12/2011 10:47 AM CST Provider contact with the patient: 12/12/2011 10:47 AM Anaid Dimas [id number] [facility] EMERGENCY DEPT History Chief Complaint Patient presents with ??? Seizure Pt does not have a known hx of seizures. Mom states that she has had shaking episodes and urinary incontence over the past 2-3 months. Mom thought that pt was doing it on purpose. Pt had another of these episodes last night. Pt awake and alert now. HPIPt is a 6 y/o F that presents to the ED with her mother complaining of possible seizures. Mom states that the pt has been having suspected seizure activity for the past 3 months, for which mom sawthe activity herself last night. She reports the pt stopped talking to her mid sentence, her LUE flexed at elbow, she began having a rhythmic lateral movement of the extremity, head and eyes were also deviated to the left. She reports the episodes lasting ~30 seconds, after which the pt continued their previous conversation. The pt did not lose consciousness, there was no urinary incontinence, byper mom, the pt has had incontinence before per the grandmother, otherwise the episodes are always a s described. Mom also reports increased enuresis since she changed schools in june. No past medical history on file. No past surgical history on file. History Social History ??? Marital Status: Single Spouse Name: N/A Number of Children: N/A ??? Years of Education: N/A Occupational History ??? Not on file. Social History Main Topics ??? Smoking status: Not on file ??? Smokeless tobacco: Not on file ??? Alcohol Use: Not on file ??? Drug Use: Not on file ??? Sexually Active: Not on file Other Topics Concern ??? Not on file Social History Narrative ??? No narrative on file Medications No current outpatient prescriptions on file. Review of Systems Review of Systems HENT: Negative. Eyes: Negative. Respiratory: Negative. Cardiovascular: Negative. Gastrointestinal: Negative. Genitourinary: Positive for enuresis. Musculoskeletal: Negative. Neurological: Positive for seizures. Psychiatric/Behavioral: Poor concentration, hyperactivity, inability to complete simple tasks BP 105/72 Pulse 88 Temp 98.4 ??F Resp 24 Wt 20.8 kg (45 lb 13.7 oz) Physical Exam Physical Exam Constitutional: She appears well-developed and well-nourished. She is active. HENT: Head: Atraumatic. Right Ear: Tympanic membrane normal. Left Ear: Tympanic membrane normal. Nose: No nasal discharge. Mouth/Throat: Mucous membranes are moist. Oropharynx is clear. Eyes: Conjunctivae are normal. Neck: Normal range of motion. Neck supple. No adenopathy. Cardiovascular: Regular rhythm. Pulmonary/Chest: Effort normal and breath sounds normal. There is normal air entry. Abdominal: Full and soft. Bowel sounds are normal. No tenderness. Musculoskeletal: Normal range of motion. Neurological: She is alert. She displays normal reflexes. No cranial nerve deficit. She exhibits normal muscle tone. Coordination normal. Skin: Skin is warm and moist. Capillary refill takes less than 3 seconds. Procedures Procedures EKG Interpretation Lab/SPO2 Interpretation Progress Notes ED Course -Fiber[employer]ensing message sent to neurology -will d/c pt home with dx of seizure-like activity, mom told to call clinic if she is not contactedwith an appt by next Medical Decision Making I have reviewed the: Nursing Notes and Vitals. Clinical Impression Encounter Diagnosis Name Primary? Seizure-like activity ESSOR OF COMMUNICATION AND WRITING * Latanya Voss RN - 12/12/2011 10:23 AM CST Arrive to room Introduced self to pt and family. Mom describes she finally witnessed episode last noc where pt had rhythmic movement of arm, was staring and not responsive. Other family members have seen events, but until last night, mom was uncertain. Pt alert and cheerful, oriented to TV and calllight. ESSOR OF COMMUNICATION AND WRITING documented in this encounter Miscellaneous Notes * Miscellaneous Scans - Document, Scanned - 12/29/2011 12:05 PM CST ESSOR OF COMMUNICATION AND WRITING * Miscellaneous Scans - Document, Scanned - 12/25/2011 10:19 AM CST ESSOR OF COMMUNICATION AND WRITING documented in this encounter Plan of Treatment Not on file documented as of this encounter Visit Diagnoses Diagnosis Seizure-like activity (HCC) Other convulsions documented in this encounter Care Teams Edi Coordinator Relationship Specialty Start Date End Date Alvarez Prabhakar MD [address] [place] [address] PCP - General 12/12/11 documented as of this encounter
--- OUTSIDE RECORDS SUMMARY | 2024-11-22 05:21 | XMS_ITS | Encounter Summary ---
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 PMD did labs and sugar in urine and blood sugar high. PMD sent pt here for further eval. Encounter Details Date Type Department Care Team (Late st Contact Info) Description 08/17/2012 3:31 PM CDT - 08/17/2012 8:35 PM CDT Emergency ER at [address] [address] Maryan Wood MD No Updated information Street, MD [place] [address] [place] [address] Diabetes mellitus, new onset (HCC); Enuresis Discharge Disposition: Home or Self Care Social History Tobacco Use Types Packs/Day Years Used Date Smoking Tobacco: Never Assessed Sex and Gender Information Value Date Recorded Sex Assigned at Not on file Gender Identity Not on file Sexual Orientation Not on file documented as of this encounter Last Filed Vital Signs Vital Sign Reading Time Taken Comments Blood Pressure 87/63 08/17/2012 6:03 PM CDT Pulse 69 08/17/2012 6:03 PM CDT Temperature 37.1 ??C (98.8 ??F) 08/17/2012 6:03 PM CD T Respiratory Rate 24 08/17/2012 6:03 PM CDT Oxygen Saturation - - Inhaled Oxygen Concentration - - Weight 21.9 kg (48 lb 4.5 oz) 08/17/2012 3:21 PM CDT Height - - Body Mass Index - - documented in this encounter Discharge Instructions * Discharge Instructions* Mel Velasquez MD - 08/17/2012 8:16 PM CDT - Follow up at Endocrinology clinic tomorrow 08/18/12 at 10am - Cut out extra sugars from diet (no candy, sugar, juice, regular soda, desserts) and drink plenty of sugar free fluids (like water) - Return to emergency department for new or worsening symptoms (vomiting, abdominal pain, lethargy) Diabetes, Type I Diabetes is a lasting (chronic) disease. It occurs when the body does not properly use the sugar (glucose) that is released from food. Glucose levels are controlled by a hormone called insulin, whichis made by your pancreas. In type 1 diabetes, the pancreas does not make any insulin. If a person does not control their diabetes, or does not know they have it, they may get thirsty, urinate a lot, or become overly tired or lose consciousness. It is important to take care of this disease and follow your caregiver's instructions. HOME CARE ?? Check blood sugar levels every day as your doctor tells you to. Write this down. ?? Take your insulin as your doctor tells you to. Write this down. ?? Do not smoke. Eat a good diet. Ask your doctor for information. ?? Learn about low blood sugar. Low blood sugar can cause confusion, weakness, sweating, pale skin or trouble being awakened. Friends and family need to know this. They can give you some sugar, fruitjuice or a candy bar if you get this way. ?? Get your eyes checked regularly. ?? Have a yearly physical exam. Have your blood pressure checked. Get your blood and pee tested. This is to find problems early. Do this as often as your doctor tells you to. ?? Wear a medic-alert pendant or bracelet saying that you are a diabetic. ?? Check your feet every night for sores. Let your doctor know if you have sores that are not healing. GET HELP RIGHT AWAY IF YOU: ?? Have the following symptoms of hypoglycemia (too much insulin): l Cannot think clearly. l Are very weak, sweaty or pale. l Are throwing up or have watery poop (diarrhea). l Shake (have convulsions) or cannot be woken up. ?? Have the following symptoms of ketoacidosis (not enough insulin): l Are throwing up or have diarrhea. l Pee way more than usual or are very thirsty. l Breath smells sweet like oranges. You are breathing faster or slower. l You are very sleepy or do not make sense. l Have chest pain or shortness of breath. l Problems get worse even when you are doing as your doctor tells you. IN A MEDICAL EMERGENCY, CALL YOUR LOCAL EMERGENCY SERVICES (911 in [place] Document Released: 08/18/2009 Document Re-Released: 02/05/2010 ExitCare?? Patient Information ??2010 [employer]. * Discharge Instructions* Document, Scanned - 08/26/2012 8:47 AM CDT documented in this encounter ED Notes * Manasa Crowley RN - 08/17/2012 8:34 PM CDT Pt remains awake, alert, active. Skin p/w/d. D/c instructions given. Mom verbalize understanding. Pt amb to pov w/ valuables. nad * Manasa Crowley RN - 08/17/2012 8:10 PM CDT Called lab, states they should have enough blood in lab for the c-peptide. Req sent to lab * Manasa Crowley RN - 08/17/2012 7:46 PM CDT Noted glucose to be 64, spoke w/ resident. Pt given juice box. Awaiting endocrine. Pt awake, alert.Skin p/w/d. Maex4. Denies any pain. Pt up to br w/ mom. * Manasa Crowley RN - 08/17/2012 7:31 PM CDT Report received from RAFA Ponce. Assumed care of pt at this time. * Paola Villa MD - 08/17/2012 4:29 PM CDT Provider contact with the patient: 08/17/2012 16:29 Anaid Dimas [id number] [facility] EMERGENCY DEPT History Chief Complaint Patient presents with ??? HIGH BLOOD SUGAR Pt went to PMD due to increased urination and wetting self. PMD did labs and sugar in urine and blood sugar high. PMD sent pt here for further eval. I have read the resident/ACUTE CARE PHYSICIAN history. Unless appended by me below, I agree with findings as documented. HPI Comments: 6y/o otherwise healthy pt transferred from PMD for evaluation of hyperglycemia. Seen in PMD office last week for evaluation of increased urination, secondary enuresis, nocturia and polydypsia. No weight loss, vomiting. No Fhx fo diabetes or thyroid disorders. No mental status changes.No fevers, no recent infections. Denies abdominal pain. Review of Systems Review of Systems All relevant systems reviewed and all negative except as noted in resident and attending HPI/ROS. BP 104/79 Pulse 82 Temp 99 ??F Resp 22 Wt 21.9 kg (48 lb 4.5 oz) Physical Exam I have reviewed the resident/ACUTE CARE PHYSICIAN physical exam. Unless appended by me below, I agree with the PE as documented. Physical Exam Constitutional: Awake, alert, NAD thin HENT: Right Ear: Tympanic membrane normal. Left Ear: Tympanic membrane normal. Mouth/Throat: Mucous membranes are moist. Oropharynx is clear. Eyes: Conjunctivae are normal. Neck: Neck supple. Cardiovascular: Normal rate and regular rhythm. No murmur heard. Pulmonary/Chest: Effort normal and breath sounds normal. No respiratory distress. She exhibits no retraction. Abdominal: Soft. Bowel sounds are normal. She exhibits no distension. There is no tenderness. Skin: Skin is warm. No rash noted. Procedures Procedures Progress Notes ED Course Orders Placed This Encounter ??? CULTURE URINE Standing Status: Standing Number of Occurrences: 1 Standing Expiration Date: ??? BASIC METABOLIC PANEL (CALCIUM TOTAL) Standing Status: Standing Number of Occurrences: 1 Standing Expiration Date: ??? BLOOD GASES VENOUS Standing Status: Standing Number of Occurrences: 1 Standing Expiration Date: ??? URINALYSIS ROUTINE AUTO Standing Status: Standing Number of Occurrences: 1 Standing Expiration Date: ??? HEMOGLOBIN A1C Standing Status: Standing Number of Occurrences: 1 Standing Expiration Date: ??? ROSIE AUTO ANTIBODY Standing Status: Standing Number of Occurrences: 1 Standing Expiration Date: ??? IA-2 ANTIBODY Standing Status: Standing Number of Occurrences: 1 Standing Expiration Date: ??? ISLET CELL ANTIBODY Standing Status: Standing Number of Occurrences: 1 Standing Expiration Date: ??? BLOOD GASES CAP + COOX PANEL Standing Status: Standing Number of Occurrences: 1 Standing Expiration Date: ??? BLOOD GASES VENOUS Standing Status: Standing Number of Occurrences: 1 Standing Expiration Date: ??? URINALYSIS MICROSCOPIC ONLY Standing Status: Standing Number of Occurrences: 1 Standing Expiration Date: ??? GLUCOSE Standing Status: Standing Number of Occurrences: 1 Standing Expiration Date: ??? C-PEPTIDE Standing Status: Standing Number of Occurrences: 1 Standing Expiration Date: Please use red top tube sample previously drawn Labs rule out acidosis/ DKA Intial BS in ED 170, 99 on BMP Hgb A1c elevated Medical Decision Making I have reviewed the: Nursing Notes, Vitals and Outside Records. I have interpreted the following results: Labs. Other: Endocrine. Likely early T1DM -spoke with endocrine -elevated A1c is diagnostic -endocrine would like to follow up in clinic tomorrow am -Ab labs pending -PMD notified of results as above -dietary restrictions -return to ED for vomiting, increased WOB, lethargy -family agrees with plan I have personally seen and examined this patient. I have fully participated in the care of this patient. I have reviewed all pertinent clinical information available to me during this encounter, including history, physical exam and plan. I have reviewed nursing notes, available labs and radiographic studies. Clinical Impression Final diagnoses: Diabetes mellitus, new onset Enuresis * Mel Velasquez MD - 08/17/2012 3:47 PM CDT Images from the original note were not included. EMERGENCY DEPARTMENT 08/18/[address] Alvarez Prabhakar We had the pleasure of caring for your patient, Anaid Dimas in our emergency department on 08/18/2012. A note from the provider(s) who cared for your patient is attached. Should you wish to access any laboratory results, please call . Should you wish to access any radiology results, please call , option 3. In addition, you can access patient information 24 hours a day, from any computer, through [employer], the online version of our electronic medical record. If you would like to use this service, please call Camryn Underwood, Connectivity Coordinator, at . We appreciate the opportunity to care for your patients. If you would like additional information, please call the emergency department directly at . Sincerely, Mel Velasquez MD Division of Emergency Medicine [facility]. [place], [place] [facility] [place] DESIGN[facility] EMERGENCY DEPARTMENT Provider contact with the patient: 08/17/2012 15:47 Anaid Ness Wing [id number] [facility] EMERGENCY DEPT History Chief Complaint Patient presents with ??? HIGH BLOOD SUGAR Pt went to PMD due to increased urination and wetting self. PMD did labs and sugar in urine and blood sugar high. PMD sent pt here for further eval. HPI Comments: Anaid is a 6 y.o. AA female -- with past h/o seizure like activity otherwise healthy -- brought in by mom for high blood sugar and glucose in urine detected in PCP office. Mom brought pt to PCP for enuresis at school and at home x 1 month, increasing. Voiding at school 6-7x per hour, nocturnal voiding 2-3x. Increased thirst (sneaking into bathroom to drink water). No weight loss, vomiting, visual changes, abdominal pain, diarrhea, fevers. CBC, BMP, UA done at PCP office last week ([facility]) - called mom at work today for sugars (154), urine sugar. Vaccines are UTD. No past medical history on file. Past Surgical History Procedure Date ??? Negative surgical history History Social History ??? Marital Status: Single [...] on file Social History Narrative Anaid lives at home with mom. Is in 2nd grade. Pets - none. Smoke exposure - none. Medications No current outpatient prescriptions on file. Review of Systems Review of Systems Constitutional: Negative for fever, activity change, appetite change and fatigue. HENT: Negative for ear pain, congestion, sore throat, rhinorrhea and sneezing. Respiratory: Negative for cough. Gastrointestinal: Negative for nausea, vomiting, abdominal pain, diarrhea, constipation and blood in stool. Genitourinary: Positive for frequency and enuresis. Negative for dysuria, hematuria and difficulty urinating. Musculoskeletal: Negative for myalgias, back pain and arthralgias. Skin: Negative for rash. Neurological: Negative for dizziness, seizures, syncope, light-headedness, numbness and headaches. BP 104/79 Pulse 82 Temp 99 ??F Resp 22 Wt 21.9 kg (48 lb 4.5 oz) Physical Exam Physical Exam Constitutional: She appears well-developed and well-nourished. She is active. No distress. HENT: Right Ear: Tympanic membrane normal. Left Ear: Tympanic membrane normal. Nose: No nasal discharge. Mouth/Throat: No tonsillar exudate. Oropharynx is clear. Pharynx is normal. Eyes: Conjunctivae and EOM are normal. Pupils are equal, round, and reactive to light. Right eye exhibits no discharge. Left eye exhibits no discharge. Neck: Normal range of motion. Neck supple. No rigidity or adenopathy. Cardiovascular: Normal rate, regular rhythm, S1 normal and S2 normal. No murmur heard. Pulmonary/Chest: Effort normal and breath sounds normal. No respiratory distress. She exhibits no retraction. Abdominal: Soft. Bowel sounds are normal. She exhibits no distension and no mass. There is no hepatosplenomegaly. There is no tenderness. Musculoskeletal: Normal range of motion. She exhibits no edema and no tenderness. Neurological: She is alert. No cranial nerve deficit. She exhibits normal muscle tone. Skin: Skin is warm. Capillary refill takes less than 3 seconds. No rash noted. She is not diaphoretic. No pallor. Procedures Procedures Lab Interpretation Normal Labs:normal CBC and normal Chemistry Urinalysis:normal (urine cx pending) : blood gas x 2, DM antibody screening and C-peptide pending. Oxygen Saturation Interpretation Progress Notes ED Course 3:50 PM Pt chart reviewed, history and exam. Will order BMP, venous blood gas, UA, urine culture, DM antibodies (IA-2, ROSIE, anti-islet), HbA1c, C-peptide. POCT glucose 176 mg/dl. 4:[address] Prabhakar (confirmed labs were drawn last Thursday: glucose 154, urine 4+, ketones unknown). 5:44 PM Venous gas (7.21/68/<30/-0.9) - per RN pt was screaming and fighting intensely during draw which may explain respiratory acidosis on gas, will repeat gas 5:45 PM BMP with glucose 98, AG 14, bicarb 22 6:10 PM Repeat venous gas wnl (7.36/43/44/-0.9) - waiting for UA results 6:46 PM UA wnl, HgbA1c 8.5% (verified verbally with lab), repeat blood glucose 7:33 PM Repeat glucose (lab) - 64 7:33 PM Called Endocrinology - Spoke with Dr. Olivas. Presentation c/w likely evolving type 1 DM, will follow antibody results. To be seen in Endocrinology clinic tomorrow morning at 10am, in meantimecut out extra sugars from diet (candy, sugar, juice, regular soda, desserts) and drink plenty of sugar free fluids. Assessment: New onset DM, likely type 1 Plan: F/u with Endocrinology in clinic tomorrow 08/18 at 10am No extra sugars today (candy, juice, soda, desserts) Drink plenty of sugar free fluids Return to ED for vomiting, abdominal pain, lethargy Medical Decision Making I have reviewed the: Previous Chart, Nursing Notes and Vitals. I have interpreted the following results: Labs. I have discussed the case with PCP and Other (Endocrinology). Clinical Impression Final diagnoses: Diabetes mellitus, new onset Enuresis documented in this encounter Miscellaneous Notes * Miscellaneous Scans - Document, Scanned - 09/04/2012 11:53 AM CDT documented in this encounter Plan of Treatment Not on file documented as of this encounter Procedures Procedure Name Priority Date/Time Associated Diagnosis Comments GLUCOSE STAT 08/17/2012 7:05 PM CDT BLOOD GASES VIRY STAT 08/17/2012 5:51 PM CDT URINALYSIS REFLEX TO MICROSCOPIC NO CULTURE STAT 08/17/2012 5:46 PM CDT CULTURE URINE STAT 08/17/2012 5:46 PM CDT URINE MICROSCOPIC ONLY STAT 2 5:46 PM CDT IA-2 ANTIBODY STAT 08/17/2012 5:27 PM CDT ISLET CELL ANTIBODY STAT 08/17/2012 5 :27 PM CDT HEMOGLOBIN A1C STAT 08/17/2012 5:27 PM CDT GLUTAMIC ACID DECARBOXYLASE (ROSIE) ANTIBODY STAT 08/17/2012 5:27 PM CDT C-PEPTIDE STAT 08/17/2012 5:27 PM CDT BLOOD GASES VIRY STAT 08/17/2012 5:14 PM CDT BASIC METABOLIC PANEL (CALCIUM TOTAL) STAT 08/17/2012 5:14 PM CDT GLUCOSE - POINT OF CARE Routine 08/17/2012 3:43 PM CDT documented in this encounter Results * (ABNORMAL) GLUCOSE (08/17/2012 7:05 PM CDT) Glucose 64(L) 70 - 105 mg/dL 08/17/2012 7:31 PM CDT [facility] Blood specimen (specimen) BLOOD SPECIMEN / Unknown 08/17/2012 7:05 PM CDT 08/17/2012 7:12 PM CDT Mel Tubbs MD LAB - CHEMISTRY OR DERABLES Performing Organization Address City/State/[facility] Co de Phone Number [facility] [address] [place] [address] * BLOOD GASES VENOUS (08/17/2012 5:51 PM CDT) pH Venous 7.358 pH 08/17/2012 6:03 PM CDT [facility] pCO2 Venous 43.4 mm hg 08/17/2012 6:03 PM CDT [facility] pO2 Venous 44.2 mm hg 08/17/2012 6:03 PM CDT [facility] BE Venous -0.9 mmol/L 08/17/2012 6:03 PM CDT [facility] O2 Saturation Venous 76.2 % 07/25 6:03 PM CDT [facility] Hemoglobin Venous 12.7 gm/dL 012 6:03 PM CDT [facility] Carboxyhemoglobin Venous 1.2 % 08/17/2012 6:03 PM CDT [facility] Methemoglobin Venous 0.6 % 07/25 6:03 PM CDT [facility] O2 Content Venous 13.4 mg/dL 012 6:03 PM CDT [facility] P50 Venous 29.06 mm hg 08/17/2012 6:03 PM CDT [facility] Temp 37.0 C 08/17/2012 6:03 PM CDT [facility] Oxyhemoglobin Venous 74.8 % 07/25 6:03 PM CDT [facility] Blood specimen (specimen) BLOOD SPECIMEN / Unknown 08/17/2012 5:51 PM CDT 08/17/2012 6:00 PM CDT Mel Tubbs MD LAB - BLOOD GASES ORDERABLES [facility] [place] [address] * CULTURE URINE (08/17/2012 5:46 PM CDT) Culture SEE BELOW 08/19/2012 8:55 AM CDT [facility] Comment: - Final - CULTURE >10,000 CFU/mL urogenital/skin ?? dana Urine specimen (specimen) URINE SPECIMEN OBTAINED BY CLEAN CATCH PROCEDURE / Unknown 08/17/2012 5:46 PM CDT 08/17/2012 5:58 PM CDT Mel Tubbs MD LAB - MICROBIOLOGY ORDERABLES Performing Organization Address [facility]/ZIP Co de Phone Number [facility] [address] [place] [address], [facility] * URINALYSIS ROUTINE AUTO (08/17/2012 5:46 PM CDT) Color UA Straw Straw, Yellow, Dark Yellow 08/17/2012 6:04 PM CDT [facility] Clarity UA Clear Clear 08/17/2012 6:04 PM CDT [facility] Specific [place]olia UA <=1.005 1.003 - 1.030 08/17/2012 6:04 PM CDT [facility] pH UA 5.5 5.0 - 8.0 08/17/2012 6:04 PM CDT [facility] Protein UA Negative Negative 08/17/2012 6:04 PM CDT [facility] Blood UA Negative Negative 08/17/2012 6:04 PM CDT [facility] Leukocyte UA Negative Negative 08/17/2012 6:04 PM CDT [facility] Nitrite UA Negative Negative 08/17/2012 6:04 PM CDT [facility] Glucose UA Negative Negative 08/17/2012 6:04 PM CDT [facility] Ketone UA Negative Negative 08/17/2012 6:04 PM CDT [facility] Bilirubin UA Negative Negative 08/17/2012 6:04 PM CDT [facility] Urobilinogen UA 0.2 0.2 - 1.0 EU/dL 08/17/2012 6:04 PM CDT [facility] Urine specimen (specimen) URINE SPECIMEN OBTAINED BY CLEAN CATCH PROCEDURE / Unknown 08/17/2012 5:46 PM CDT 08/17/2012 5:58 PM CDT Mel Tubbs MD LAB - URINALYSIS O RDERABLES Performing Organization Address City/[facility] Co de Phone Number [facility] [address] [place] [address] * URINALYSIS MICROSCOPIC ONLY (08/17/2012 5:46 PM CDT) RBC UA 0-2 0-2, 2-5 # /hpf 08/17/2012 6:24 PM CDT [facility] WBC UA 0-2 0-2, 2-5 # /hpf 08/17/2012 6:24 PM CDT [facility] Bacteria UA Trace None, Trace 08/17/2012 6:24 PM CDT [facility] Epithelial Cell UA 0-2 0-2, 2-5 08/17/2012 6:24 PM CDT [facility] Mucus UA Trace None, Trace 08/17/2012 6:24 PM CDT [facility] Urine specimen (specimen) URINE SPECIMEN OBTAINED BY CLEAN CATCH PROCEDURE / Unknown 08/17/2012 5:46 PM CDT 08/17/2012 5:58 PM CDT Mel Tubbs MD LAB - URINALYSIS O RDERABLES Performing Organization Address [facility] Co de Phone Number [facility] [address] [place] [address] * ISLET CELL ANTIBODY (08/17/2012 5:27 PM CDT) Islet Cell Antibody IgG <1:4 <1:4 08/19/2012 3:20 PM CDT [id number] Comment: INTERPRETIVE INFORMATION: Islet Cell Ab, IgG [...] - SEROLOGY ORD ERABLES Performing Organization Address [facility] de Phone Number [facility] [employer] [address] [place] [address] * IA-2 ANTIBODY (08/17/2012 5:27 PM CDT) Pathologist [facility] Insulinoma Associated 2 Antibody <0.8 0.0 - 0.8 U/mL 08/22/2012 4:13 PM CDT [id number] Comment: INTERPRETIVE INFORMATION: IA-2 Antibody A value greater than 0.8 K[employer] Units/mL is considered positive for IA-2 Antibodies. Blood specimen (specimen) BLOOD SPECIMEN / Unknown 08/17/2012 5:27 PM CDT 08/17/2012 5:34 PM CDT Mle Tubbs MD LAB - SEROLOGY ORD ERABLES Performing Organization Address [facility] Co de Phone Number [facility] [address] [place] [address] * (ABNORMAL) ROSIE AUTO ANTIBODY (08/17/2012 5:27 PM CDT) Pathologist [facility] Glutamic Acid Decarboxylase Antibody 71.5(H) 0.0 - 5.0 IU/mL 08/19/2012 4:35 PM CDT [employer] Comment: INTERPRETIVE INFORMATION: ??Glutamic Acid Decarboxylase Antibody A value greater than 5.0 IU/mL is considered positive for Glutamic Acid Decarboxylase Antibody. Blood specimen (specimen) BLOOD SPECIMEN / Unknown 08/17/2012 5:27 PM CDT 08/17/2012 5:34 PM CDT Mel Tubbs MD LAB - SEROLOGY ORD ERABLES [facility] [employer] [address] [place] [address] * (ABNORMAL) HEMOGLOBIN A1C (08/17/2012 5:27 PM CDT) [facility] Hemoglobin A1c 8.5(H) 3.4 - 6.1 % 08/18/2012 10:23 AM CDT [facility] Estimated Average Glucose 197 mg/dL 08/18/2012 10:23 AM CDT [facility] Blood specimen (specimen) BLOOD SPECIMEN / Unknown 08/17/2012 5:27 PM CDT 08/17/2012 5:34 PM CDT Mel Tubbs MD LAB - CHEMISTRY OR DERABLES Performing Organization Address [facility] Co de Phone Number [facility] [address] [place] [address] * (ABNORMAL) C-PEPTIDE (08/17/2012 5:27 PM CDT) [facility] C-Peptide 0.50(L) 0.78 - 1.89 (ng/ml) 08/18/2012 11:21 AM CDT [facility] [employer] [facility] Blood specimen (specimen) BLOOD SPECIMEN / Unknown 08/17/2012 5:27 PM CDT 08/17/2012 8:25 PM CDT Mel Tubbs MD LAB - CHEMISTRY OR DERABLES Performing Organization Address City/[facility]/ZIP Co de Phone Number [facility] [address] [place] [address], [facility] * BLOOD GASES VENOUS (08/17/2012 5:14 PM CDT) [facility] pH Venous 7.210 pH 08/17/2012 5:30 PM CDT [facility] pCO2 Venous 67.8 mm hg 08/17/2012 5:30 PM CDT [facility] pO2 Venous <30.0 mm hg 08/17/2012 5:30 PM CDT [facility] BE Venous -0.9 mmol/L 08/17/2012 5:30 PM CDT [facility] O2 Saturation Venous 26.3 % 07/25 5:30 PM CDT [facility] Hemoglobin Venous 14.2 gm/dL 012 5:30 PM CDT [facility] Carboxyhemoglobin Venous 0.4 % 08/17/2012 5:30 PM CDT [facility] Methemoglobin Venous 0.9 % 07/25 5:30 PM CDT [facility] O2 Content Venous 5.2 mg/dL 012 5:30 PM T [facility] P50 Venous 35.51 mm hg 08/17/2012 5:30 PM T [facility] Temp 37.0 C 08/17/2012 5:30 PM T [facility] Oxyhemoglobin Venous 26.0 % 07/25 5:30 PM T [facility] Blood specimen (specimen) BLOOD SPECIMEN / Unknown 08/17/2012 5:14 PM CDT 08/17/2012 5:27 PM CDT Mel Tubbs MD LAB - BLOOD GASES ORDERABLES Performing Organization Address City/State/[facility] Co de Phone Number [facility] [address] [place] [address] * (ABNORMAL) BASIC METABOLIC PANEL (CALCIUM TOTAL) (08/17/2012 5:14 PM CDT) [facility] Glucose 98 70 - 105 mg/dL 08/17/2012 5:40 PM CDT [facility] Sodium 139 136 - 145 mmol/L 08/17/2012 5:40 PM CDT [facility] Potassium 4.4 3.5 - 5.1 mmol/L 08/17/2012 5:40 PM CDT [facility] Chloride 103 98 - 107 mmol/L 08/17/2012 5:40 PM CDT [facility] CO2 22 20 - 28 mmol/L 08/17/2012 5:40 PM CDT [facility] Calcium 10.41 9.12 - 10.48 mg/dL 08/17/2012 5:40 PM T [facility] Anion Gap 14 5 - 20 mmol/L 08/17/2012 5:40 PM CDT [facility] BUN 18.8 6.7 - 19.6 mg/dL 08/17/2012 5:40 PM T [facility] Creatinine 0.39(L) 0.53 - 0.80 mg/dL 08/17/2012 5:40 PM T [facility] eGFR by MDRD ml/min/1. 73m2 08/17/2012 5:40 PM T [facility] Comment:eGFR calculations ar e not performed for children under 18 years old. eGFR by MDRD ml/min/1. 73m2 08/17/2012 5:40 PM T [facility] Comment:eGFR calculations ar e not performed for children under 18 years old. Blood specimen (specimen) BLOOD SPECIMEN / Unknown 08/17/2012 5:14 PM CDT 08/17/2012 5:26 PM CDT Mel Tubbs MD LAB - CHEMISTRY OR DERABLES Performing Organization Address City/[facility]/ZIP Co de Phone Number [facility] [address] [place] [address] * (ABNORMAL) GLUCOSE - POINT OF CARE (08/17/2012 3:43 PM CDT) [facility] Glucose WB/POC 176(H) 70 - 106 mg/dL 08/18/2012 10:56 AM CDT [facility] Blood specimen (specimen) BLOOD SPECIMEN / Unknown 08/17/2012 3:43 PM CDT 08/18/2012 10:56 AM CDT Maryan Wood MD LAB - POINT OF CARE ORDERABLES Performing Organization Address [facility]/ZIP Co de Phone Number [facility] [address] [place] [address] documented in this encounter Visit Diagnoses Diagnosis Diabetes mellitus, new onset (HCC) Type II or unspecified type diabetes mellitus without mention of complication, not stated as uncontrolled Nonorganic enuresis documented in this encounter Care Teams Ditching Machine Operating Engineer Relationship Specialty Start Date End Date Alvarez Prabhakar MD [address] [place] [address] PCP - General 12/12/11 documented as of this encounter
--- OUTSIDE RECORDS SUMMARY | 2024-11-22 05:21 | XMS_ITS | Encounter Summary ---
Author Organization [facility] Address [address] [place] [address] Care Team Providers Care Information Security Specialist Name Role Phone Alvarez Prabhakar MD Primary Care Provider [phone] Reason for Visit * Reason Onset Date Comments Blood Sugar Problem 10/16/2014 Encounter Details Date Type Department Care Team (Late st Contact Info) Description 10/16/2014 Telephone [facility] Pediatrics - Diabetes [id number] [place] [address] Breana Olivas MD Blood Sugar Problem Social History Tobacco Use Types Packs/Day Years Used Date Smoking Tobacco: Never Assessed Sex and Gender Information Value Date Recorded Sex Assigned at Not on file Gender Identity Not on file Sexual Orientation Not on file documented as of this encounter Miscellaneous Notes * Telephone Encounter - Xochilt Child RN - 10/16/2014 2:52 PM CST Returned school nurses call. Last insulin was at 1250 of 1 unit with blood sugar 226 and negative ketones. Blood sugar now 303 with negative ketones, not ill or any complaints. I advise continue pushing sugar free fluids. I reviewed with the school nurse what warrants an immediate call to our office. ARY CUSTOMER SERVICE CLERK documented in this encounter Plan of Treatment Not on file documented as of this encounter Visit Diagnoses Not on filedocumented in this encounter Care Teams Information Security Specialist Relationship Specialty Start Date End Date Alvarez Prabhakar MD [address] [place] [address] PCP - General 12/12/11 documented as of this encounter
--- OUTSIDE RECORDS SUMMARY | 2024-11-22 05:21 | XMS_ITS | Encounter Summary ---
Author Organization [facility] Address [address] [place] [address] Care Team Providers Care Insurance Processor Name Role Phone Alvarez Prabhakar MD Primary Care Provider [phone] Reason for Visit * Reason Onset Date Comments Diabetes 12/23/2013 Encounter Details Date Type Department Care Team (Late st Contact Info) Description 12/23/2013 Telephone [facility] Pediatrics - Endocrinology [address] [place] [address]. [place] [address] Jesus Jacques MD [address] [place] [id number] Diabetes Social History Tobacco Use Types Packs/Day Years Used Date Smoking Tobacco: Never Assessed Sex and Gender Information Value Date Recorded Sex Assigned at Not on file Gender Identity Not on file Sexual Orientation Not on file documented as of this encounter Miscellaneous Notes * Telephone Encounter - Jesus Jacques MD - 12/23/2013 5:00 PM CST Mother called as requested. Increased Lantus from 1 to 2 two days ago. 12/22/13 223 45 108 209 12/23/13 156 374 137 On 2 Lantus, 1/2-unit per 30 g CHO, no correction. I advised no changes; call in 3 days, unless consecutive BG >300. GE PERSON documented in this encounter Plan of Treatment Not on file documented as of this encounter Visit Diagnoses Not on filedocumented in this encounter Care Teams Insurance Processor Relationship Specialty Start Date End Date Alvarez Prabhakar MD [address] [place] [address] PCP - General 12/12/11 documented as of this encounter
--- OUTSIDE RECORDS SUMMARY | 2024-11-22 05:21 | XMS_ITS | Encounter Summary ---
Author Organization [facility] Address [address] [place] [address] Care Team Providers Care Head Swamper Name Role Phone Alvarez Prabhakar MD Primary Care Provider Reason for Visit * Reason Onset Date Comments MEDICATION REFILL 08/11/2014 Encounter Details Date Type Department Care Team (Late st Contact Info) Description 08/11/2014 Refill [facility] Pediatrics - Diabetes [address] [address] Breana Olivas MD MEDICATION REFILL Social History [...] documented as of this encounter Care Teams Head Swamper Relationship Specialty Start Date End Date Alvarez Prabhakar MD [address] [place] [phone] PCP - General 12/12/11 documented as of this encounter
--- OUTSIDE RECORDS SUMMARY | 2024-11-22 05:21 | XMS_ITS | Encounter Summary ---
Author Organization [facility] Address [address] [facility] [place] [address] Care Team Providers Care Wound/Ostomy Clinical Nurse Specialist Name Role Phone Alvarez Prabhakar MD Primary Care Provider [phone] Reason for Visit * Reason Onset Date Comments Blood Sugar Problem 12/21/2013 Encounter Details Date Type Department Care Team (Late st Contact Info) Description 12/21/2013 Telephone [facility] Pediatrics - Endocrinology [address] [facility] [place] [address] Kory Lopez APRN-CNP [address] [place] [id number] Blood Sugar Problem Social History Tobacco Use Types Packs/Day Years Used Date Smoking Tobacco: Never Assessed Sex and Gender Information Value Date Recorded Sex Assigned at Not on file Gender Identity Not on file Sexual Orientation Not on file documented as of this encounter Miscellaneous Notes * Telephone Encounter - Kory oLpez APRN-CNP - 12/21/2013 4:56 PM ELECTRONIC TECHNOLOGIST Mother called to report blood sugars. All trending over 200. Has been switching out insulin monthly. Increase Lantus to 2 units. Call Thursday. TRONIC TECHNOLOGIST documented in this encounter Plan of Treatment Not on file documented as of this encounter Visit Diagnoses Not on filedocumented in this encounter Care Teams Wound/Ostomy Clinical Nurse Specialist Relationship Specialty Start Date End Date Alvarez Prabhakar MD [address] [place] [address] PCP - General 12/12/11 documented as of this encounter
--- OUTSIDE RECORDS SUMMARY | 2024-11-22 05:21 | XMS_ITS | Encounter Summary ---
Author Organization [facility] Address [address] [place] [address] Care Team Providers Care Marine Animal Trainer Name Role Phone Alvarez Prabhakar MD Primary Care Provider [phone] Encounter Details Date Type Department Care Team (Late st Contact Info) Description 05/09/2013 Orders Only [facility] Pediatrics - Diabetes Mgmt [address] [place] [address] Leeanne Croft, HEALTH EDUCATION SPECIALIST-HOOP DRIVING MACHINE OPERATOR HELPER Retired Social History Tobacco Use Types Packs/Day Years Used Date Smoking Tobacco: Never Assessed Sex and Gender Information Value Date Recorded Sex Assigned at Not on file Gender Identity Not on file Sexual Orientation Not on file documented as of this encounter Plan of Treatment Not on file documented as of this encounter Visit Diagnoses Not on filedocumented in this encounter Care Teams Marine Animal Trainer Relationship Specialty Start Date End Date Alvarez Prabhakar MD [address] [place] [phone] PCP - General 12/12/11 documented as of this encounter
--- OUTSIDE RECORDS SUMMARY | 2024-11-22 05:21 | XMS_ITS | Encounter Summary ---
Author Organization [facility] Address [address] [facility] [address] [place] [address] Care Team Providers Care Home Office Claims Examiner Name Role Phone Alvarez Prabhakar MD Primary Care Provider Reason for Visit * Reason Onset Date Comments MEDICATION REFILL 11/08/2014 Encounter Details Date Type Department Care Team (Late st Contact Info) Description 11/08/2014 Refill [facility] Pediatrics - Diabetes [id number] [place] [address] Breana Olivas MD MEDICATION REFILL Social History Tobacco Use Types Packs/Day Years Used Date Smoking Tobacco: Never Assessed Sex and Gender Information Value Date Recorded Sex Assigned at Not on file Gender Identity Not on file Sexual Orientation Not on file documented as of this encounter Miscellaneous Notes * Telephone Encounter - Lizeth Garrett RN - 11/08/2014 11:45 AM MANAGER OF PMO I called to assist parent in getting sooner return to clinic appointment than February since has not been seen since 05/2014. Left message to call office. GER OF PMO documented in this encounter Plan of Treatment Not on file documented as of this encounter Visit Diagnoses Diagnosis Diabetes mellitus type 1, uncontrolled- Primary Type I (juvenile type) diabetes mellitus without mention of complication, uncontrolled documented in this encounter Care Teams Home Office Claims Examiner Relationship Specialty Start Date End Date Alvarez Prabhakar MD [address] [place] [address] PCP - General 12/12/11 documented as of this encounter
--- OUTSIDE RECORDS SUMMARY | 2024-11-22 05:21 | XMS_ITS | Encounter Summary ---
Author Organization [facility] Address [address] [place] [address] Care Team Providers Care Parts Clerk Plant Maintenance Name Role Phone Alvarez Prabhakar MD Primary Care Provider [phone] Reason for Visit * Reason Onset Date Comments Blood Sugar Problem 01/17/2015 Encounter Details Date Type Department Care Team (Late st Contact Info) Description 01/17/2015 Telephone [facility] Pediatrics - Diabetes [place] [address] [place] [address] Leeanne Croft APRN-CNP Retired Blood Sugar Problem Social History Tobacco Use Types Packs/Day Years Used Date Smoking Tobacco: Never Assessed Sex and Gender Information Value Date Recorded Sex Assigned at Not on file Gender Identity Not on file Sexual Orientation Not on file documented as of this encounter Miscellaneous Notes * Telephone Encounter - Nesha Celaya APRN-CNP - 01/17/2015 2:08 PM LEAD SOFTWARE TEST ENGINEER I spoke with school nurse, Ms. Meléndez who reports ketones are trace and Bg is 367. Last dose of insulin was 1.5 units at 1250. No vomiting. No other symptoms. I recommended to give water/sugar free fluids and to call back immediately for moderate-large ketones or vomiting. SOFTWARE TEST ENGINEER documented in this encounter Plan of Treatment Not on file documented as of this encounter Visit Diagnoses Not on filedocumented in this encounter Care Teams Parts Clerk Plant Maintenance Relationship Specialty Start Date End Date Alvarez Prabhakar MD [address] [place] [address] PCP - General 12/12/11 documented as of this encounter
--- OUTSIDE RECORDS SUMMARY | 2024-11-22 05:21 | XMS_ITS | Encounter Summary ---
Author Organization [facility] Address [address] [facility] [place] [address] Care Team Providers Care Forestry Conservation Worker Name Role Phone Alvarez Prabhakar MD Primary Care Provider [phone] Reason for Visit * Reason Comments Establish Care EEG done yesterday Encounter Details Date Type Department Care Team (Latest Contact Info) Description 12/25/2011 8:30 AM PERSONNEL ARBITRATOR - 12/25/2011 11:59 PM PERSONNEL ARBITRATOR Hospital Encounter [facility] Pediatrics - Neurology [address] [place] [address] Servando Figueroa MD [address] [place] [address] Neurology Discharge Disposition: Home or Self Care Social History Tobacco Use Types Packs/Day Years Used Date Smoking Tobacco: Never Assessed Sex and Gender Information Value Date Recorded Sex Assigned at Not on file Gender Identity Not on file Sexual Orientation Not on file documented as of this encounter Last Filed Vital Signs Vital Sign Reading Time Taken Comments Blood Pressure 86/60 12/25/2011 8:51 AM PERSONNEL ARBITRATOR Pulse - - Temperature - - Respiratory Rate - - Oxygen Saturation - - Inhaled Oxygen Concentration - - Weight 19.9 kg (43 lb 14.4 oz) 12/25/2011 8:51 A M PERSONNEL ARBITRATOR Height 120.6 cm (3' 11.48 ) 12/25/2011 8:[address] Body Mass Index 13.69 12/25/2011 8:51 AM PERSONNEL ARBITRATOR Body Mass Index Percentile 8.14% 12/25/2011 8:5 1 AM PERSONNEL ARBITRATOR Growth Chart: [facility] (Girls, 2- 20 Years) documented in this encounter Discharge Instructions * Patient Instructions* Servando Figueroa MD - 12/25/2011 9:28 AM PERSONNEL ARBITRATOR There is a possibility her spells are seizures. I would like to see if you could get some video footage of the events and see if she is responsive or unresponsive during these episodes. Call me in about 2-3 weeks to update me and we will decide if there is enough evidence to start a medication for seizures. Call sooner if any of the spells are more intense. ONNEL ARBITRATOR documented in this encounter Progress Notes * Servando Figueroa MD - 12/25/2011 10:57 AM CST [facility] Department of Neurology NAME: ANAID WHITAKER : 2005 UNIT #: [id number] DATE SEEN: 12/25/2011 Anaid is a 6-year-old young lady who we are seeing today in consultation for spells. These have been noted over the past several months, though mom has only seen them over the past 3 weeks or so. These are most typically in the evening though not immediately at the transition of wakeand sleep. She will have episodes where her left arm will twitch and abduct in a flexed position. She will also at times have some head turning to the left with these. Her eyes will not necessarily fl utter but will occasionally cross. Mom cannot be specific whether they move in a cognitive her in aconjugate direction. These occasionally will cluster and often are just single events lasting 3-5 seconds. When they cluster she seems to be normal in between. The movements are not necessarily rhythmic. They at times are asynchronous. She has not necessarily fallen over or lost consciousness comple tely though there is some question whether she is responsive during these events. At the end of them occasional she will shake her head back and forth like she is coming out of something. There is noclear color change and she had never wet herself during these episodes. They are occurring about 2-3 times per week and again a few of them cluster and she will have several within a minute. PAST MEDICAL HISTORY: Otherwise relatively uncomplicated. She has had a little bit of hyperactivity and oppositional nature and this year as having more difficulty paying attention to tasks at school. She is social and has a good friend support network. Her and line haul driver was uncomplicated. She does not see anybody for chronic medical issues. Her early developmental an early learning skills were all normal. She is not on medications other than multivitamins. No drug allergies. FAMILY HISTORY: Negative for anyone on either side with seizures, tics with Tourette syndrome. SOCIAL HISTORY: She is in first grade and, as mentioned, having little bit a problem currently. She gets good sleepat night and eats regular meals. REVIEW OF SYSTEM: Negative for any chronic cardiac, pulmonary, GI, , dermatologic or rheumatologic issues. PHYSICAL EXAM: Weight is 20 kg, height 120.6 cm, blood pressure 86/60. She is a thin and alert young girl in no distress. No dysmorphic features are present and no neurocutaneous lesions are seen. Lungs are clear. Heart is regular. Abdomen is free of any organomegaly. Neurologic exam: Mental status, originally she is talkative and would answer questions. When I started to ask her to do parts of the examination, she became quite oppositional and refused. In the context of this she had relatively normal cranial nerve movement, though I certainly could not assess fundi. Her spontaneous motor tone and movements were normal and symmetric, but she would not cooperate with formal muscle strength testing. Reflexes were 1+ in the upper and 2+ in the lower extremities. She would not reach for objects for me but her gait was narrow without any ataxia. I did review her EEG earlier this morning and had 2 very brief episodes both in sleep of some sharply contoured activity; one was chiefly from the left frontal lobe in the other was bifrontal in onset. IMPRESSION: Anaid is a 6-year-old girl with abnormal spells. From the description there are several featuresthat could be consistent with seizure but some that are not terribly typical. The other major item in the differential here would be a complex motor tic. This could certainly be possible given some of the hyperactive and inattentive features we have seen of her over the past year. For the time being I presented mom with a couple of options including empiric treatment with seizure medication and she would prefer to hold off on this and try to shoot some video footage of her clusters of events. If she can get this captured I would like to review this. If she has any more meaningful events with a clear alteration of awareness or loss of body posture, I would probably start her on medication immediately. Mom will call in 2-3 weeks to update me and keep a close eye on whethershe seems to be responsive during the longer events are not. We will discuss risks and benefits of seizure medication when I talk with her over the phone. If we do start her on medication for seizure or my review the video makes it clear these are seizure, I will also get an MRI of the brain. She has no obvious localizing findings on exam today, thoughagain it was somewhat limited due to her cooperation. A more prolonged EEG is probably not practical in her as per mom's description she had quite a difficult time tolerating the very brief EEG done yesterday. Thanks for allowing us to participate in her care. Please do not hesitate to call with questions orconcerns. Dictated By: Servando Figueroa MD /Leopoldo JOB ID: [id number] cc: ALVAREZ PRABHAKAR MD ONNEL ARBITRATOR documented in this encounter Miscellaneous Notes * Miscellaneous Scans - Document, Scanned - 01/08/2012 11:47 AM CST ONNEL ARBITRATOR * Miscellaneous Scans - Document, Scanned - 01/08/2012 11:45 AM CST ONNEL ARBITRATOR documented in this encounter Plan of Treatment Not on file documented as of this encounter Visit Diagnoses Not on filedocumented in this encounter Care Teams Forestry Conservation Worker Relationship Specialty Start Date End Date Alvarez Prabhakar MD [address] [place] [phone] PCP - General 12/12/11 documented as of this encounter
--- OUTSIDE RECORDS SUMMARY | 2024-11-22 05:21 | XMS_ITS | Encounter Summary ---
Author Organization [facility] Address [address] [facility] [place] [address] Care Team Providers Care Checker Name Role Phone Alvarez Prabhakar MD Primary Care Provider [phone] Reason for Visit * Reason Onset Date Comments Parent Return Call 07/06/2013 Encounter Details Date Type Department Care Team (Late st Contact Info) Description 07/06/2013 Telephone [facility] Pediatrics - Diabetes [id number] [place] [address] Breana Olivas MD Parent Return Call Social History Tobacco Use Types Packs/Day Years Used Date Smoking Tobacco: Never Assessed Sex and Gender Information Value Date Recorded Sex Assigned at Not on file Gender Identity Not on file Sexual Orientation Not on file documented as of this encounter Miscellaneous Notes * Telephone Encounter - Lizeth Garrett RN - 07/06/2013 2:20 PM CDT Returned mother's call [phone]. Mother requesting school letter. Per mother still not receiving Lantus insulin at this time but is receiving Humalog 0.5 units for every 30 grams carbohydrate forall meals. Mother stated she has given in the past correction of 0.5 extra for blood sugar > 200and 1 unit extra for blood sugar > 300. Last 2 progress notes mention child is not on correction. Needs letter faxed to [phone] documented in this encounter Plan of Treatment Not on file documented as of this encounter Visit Diagnoses Not on filedocumented in this encounter Care Teams Checker Relationship Specialty Start Date End Date Alvarez Prabhakar MD [address] [place] [address] PCP - General 12/12/11 documented as of this encounter
--- OUTSIDE RECORDS SUMMARY | 2024-11-22 05:21 | XMS_ITS | Encounter Summary ---
Author Organization [facility] Address [address] [facility] [place] [address] Care Team Providers Care Lockstitch Cup Setter Name Role Phone Alvarez Prabhakar MD Primary Care Provider Reason for Visit * Reason Onset Date Comments MEDICATION REFILL 03/25/2013 Encounter Details Date Type Department Care Team (Late st Contact Info) Description 03/25/2013 Refill [facility] Pediatrics - Diabetes [facility] [address] [place] [address] Kory Lopez APRN-PROPOSAL MANAGER WRITER [address] [place] [phone] MEDICATION REFILL Social History Tobacco Use Types [...] documented as of this encounter Care Teams Lockstitch Cup Setter Relationship Specialty Start Date End Date Alvarez Prabhakar MD [address] [place] [phone] PCP - General 12/12/11 documented as of this encounter
--- OUTSIDE RECORDS SUMMARY | 2024-11-22 05:21 | XMS_ITS | Encounter Summary ---
Author Organization [facility] Address [address] [facility] [place] [address] Care Team Providers Care Auto Collision Repair Instructor Name Role Phone Alvarez Prabhakar MD Primary Care Provider [phone] Encounter Details Date Type Department Care Team (Late st Contact Info) Description 09/25/2014 Orders Only [facility] Pediatrics - Endocrinology [address] [place] [address] Breana Olivas MD Type 1 diabetes mellitus (HCC) Social History Tobacco Use Types Packs/Day Years Used Date Smoking Tobacco: Never Assessed Sex and Gender Information Value Date Recorded Sex Assigned at Not on file Gender Identity Not on file Sexual Orientation Not on file documented as of this encounter Plan of Treatment Not on file documented as of this encounter Visit Diagnoses Diagnosis Type 1 diabetes mellitus (HCC)- Primary Type I (juvenile type) diabetes mellitus without mention of complication, not stated as uncontrolled documented in this encounter Care Teams Auto Collision Repair Instructor Relationship Specialty Start Date End Date Alvarez Prabhakar MD [address] [place] [address] PCP - General 12/12/11 documented as of this encounter
--- OUTSIDE RECORDS SUMMARY | 2024-11-22 05:21 | XMS_ITS | Encounter Summary ---
Author Organization [facility] Address [address] [facility] [place] [address] Care Team Providers Care Analytics Specialist Name Role Phone Alvarez Prabhakar MD Primary Care Provider [phone] Reason for Visit * Reason Onset Date Comments Blood Sugar Problem 01/30/2015 Encounter Details Date Type Department Care Team (Late st Contact Info) Description 01/30/2015 Telephone [facility] Pediatrics - Diabetes [id number] [place] [address] Breana Olivas MD Blood Sugar Problem Social History Tobacco Use Types Packs/Day Years Used Date Smoking Tobacco: Never Assessed Sex and Gender Information Value Date Recorded Sex Assigned at Not on file Gender Identity Not on file Sexual Orientation Not on file documented as of this encounter Miscellaneous Notes * Telephone Encounter - Lizeth Garrett RN - 01/30/2015 2:22 PM CDT Received fax school nurse Carlita Meléndez. Blood sugars from 12/27/14 to 01/26/15 0850 [phone] 23 total [phone] target and 20 elevated 5399-8648 15 total 89-328 2 target 13 elevated 3680-0314 28 total 74-397 1 low 1 target and 26 elevated I then called home number to try and review blood sugars with family. Spoke with mother. She statesmeter time and date are off and does not want to guess when taken. I agreed and asked that meter time and date be reset and to check regularly the next several days and call back on Thursday to review blood sugars. She agreed. documented in this encounter Plan of Treatment Not on file documented as of this encounter Visit Diagnoses Not on filedocumented in this encounter Care Teams Analytics Specialist Relationship Specialty Start Date End Date Alvarez Prabhakar MD [address] [place] [phone] PCP - General 12/12/11 documented as of this encounter
--- OUTSIDE RECORDS SUMMARY | 2024-11-22 05:21 | XMS_ITS | Encounter Summary ---
Author Organization [facility] Address [address] [place] [address] Care Team Providers Care Legal Entity Controller Name Role Phone Alvarez Prabhakar MD Primary Care Provider Reason for Visit * Reason Onset Date Comments MEDICATION REFILL 06/20/2014 Encounter Details Date Type Department Care Team (Late st Contact Info) Description 06/20/2014 Refill [facility] Pediatrics - Diabetes [address] [address] Breana Olivas MD MEDICATION REFILL Social History [...] documented as of this encounter Care Teams Legal Entity Controller Relationship Specialty Start Date End Date Alvarez Prabhakar MD [address] [place] [phone] PCP - General 12/12/11 documented as of this encounter
--- OUTSIDE RECORDS SUMMARY | 2024-11-22 05:21 | XMS_ITS | Encounter Summary ---
Author Organization [facility] Address [address] [facility] [place] [address] Care Team Providers Care Lodging Manager Name Role Phone Alvarez Prabhakar MD Primary Care Provider [phone] Reason for Visit * Reason Onset Date Comments Blood Sugar Problem 08/20/2012 Letter 08/20/2012 Encounter Details Date Type Department Care Team (Late st Contact Info) Description 08/20/[address] [facility] Pediatrics - Diabetes Mgmt [facility] [place] [address] Breana Olivas MD Blood Sugar Problem; Letter Social History Tobacco Use Types Packs/Day Years Used Date Smoking Tobacco: Never Assessed Sex and Gender Information Value Date Recorded Sex Assigned at Not on file Gender Identity Not on file Sexual Orientation Not on file documented as of this encounter Miscellaneous Notes * Telephone Encounter - Nesha Cleaya RN,CPNP - 08/20/2012 8:48 AM CDT I spoke with mother re: school letter. She will pick it up today. Anaid will go back to school on Thursday08/23/12. Mother reports the following Bg's: 08/19 212 at dinner, gave Humalog 74 at bedtime, gave snack 08/20 99 this AM I discussed that bedtime Bg should be at least 100 and advised to give 15 gram CHO snack without Humalog if bedtime Bg is < 100. Recheck Bg again after this snack. Mother to call Regional Account Manager this evening and then daily over the weekend. documented in this encounter Plan of Treatment Not on file documented as of this encounter Visit Diagnoses Not on filedocumented in this encounter Care Teams Lodging Manager Relationship Specialty Start Date End Date Alvarez Prabhakar MD [address] [place] [address] PCP - General 12/12/11 documented as of this encounter
--- OUTSIDE RECORDS SUMMARY | 2024-11-22 05:21 | XMS_ITS | Encounter Summary ---
Author Organization [facility] Address [address] [facility] [facility] [address] [facility] [place] [address] Care Team Providers Care Powertrain Design Engineer Name Role Phone Alvarez Prabhakar MD Primary Care Provider [phone] Encounter Details Date Type Department Care Team (Late st Contact Info) Description 02/11/2015 Orders Only [facility] Pediatrics - Endocrinology [address] [place] [address] Kory Lopez APRN-TRAIN CONTROL ELECTRONIC TECHNICIAN [address] [place] [address] Type 1 diabetes mellitus (HCC) Social History Tobacco Use Types Packs/Day Years Used Date Smoking Tobacco: Never Assessed Sex and Gender Information Value Date Recorded Sex Assigned at Not on file Gender Identity Not on file Sexual Orientation Not on file documented as of this encounter Plan of Treatment Not on file documented as of this encounter Results * (ABNORMAL) MICROALB/CREAT RATIO URINE RANDOM PANEL (02/12/2015 9:17 AM CDT) Creatinine Urine 239.28 mg/dL 02/12/2015 10:34 AM CDT [facility] Microalbumin Urine 4.9(H) <1.7 mg/dL 02/12/2015 10:34 AM CDT [facility] Microalbumin/Crea tinine Ratio 20 <30 mg/g 02/12/2015 10:34 AM CDT [facility] Urine URINE SPECIMEN OBTAINED BY CLEAN CATCH PROCEDURE / Unknown 02/12/2015 9:17 AM CDT 02/12/2015 10:03 AM CDT [facility] - URINE JOSE ABELINO ORDERABLES Performing Organization Address [facility]/ZIP Co de Phone Number [facility] [address] [place] [address] * (ABNORMAL) HEMOGLOBIN A1C - POCT (IP) BEAKER (02/12/2015 8:44 AM CDT) Hemoglobin A1c POCT 8.2(A) 3.4 - 6.1 % [facility] POCT TESTING QC Verified Yes Yes [facility] PO CT TESTING Blood specimen (specimen) BLOOD SPECIMEN / Unknown 02/12/2015 8:44 AM CDT [facility] - POINT OF CARE ORDERABLES Performing Organization Address [facility] Co de Phone Number [facility] POCT TESTING [address] [place] [address], [facility] * TSH (02/12/2015 8:43 AM CDT) TSH 1.54 0.35 - 4.95 uIU/mL 02/12/2015 9:57 AM CDT [facility] Blood BLOOD SPECIMEN / Unknown 02/12/2015 8:43 AM CDT 02/12/2015 8:56 AM CDT [facility] - CHEMISTRY ORDERABLES Performing Organization Address [facility] Co de Phone Number [facility] [address] [place] [address] documented in this encounter Visit Diagnoses Diagnosis Type 1 diabetes mellitus (HCC)- Primary Type I (juvenile type) diabetes mellitus without mention of complication, not stated as uncontrolled documented in this encounter Care Teams Powertrain Design Engineer Relationship Specialty Start Date End Date Alvarez Prabhakar MD [address] [place] [phone] PCP - General 12/12/11 documented as of this encounter
--- OUTSIDE RECORDS SUMMARY | 2024-11-22 05:21 | XMS_ITS | Encounter Summary ---
Author Organization [facility] Address [address] [facility] [place] [address] Care Team Providers Care Lens Generator Name Role Phone Alvarez Prabhakar MD Primary Care Provider [phone] Reason for Visit * Reason Onset Date Comments Blood Sugar Problem 01/25/2015 Encounter Details Date Type Department Care Team (Late st Contact Info) Description 01/25/2015 Telephone [facility] Pediatrics - Diabetes [facility] [address] [place] [address] Leeanne Croft, HEAD TURBINE OPERATOR-HOSPITALITY AMBASSADOR Retired Blood Sugar Problem Social History Tobacco Use Types Packs/Day Years Used Date Smoking Tobacco: Never Assessed Sex and Gender Information Value Date Recorded Sex Assigned at Not on file Gender Identity Not on file Sexual Orientation Not on file documented as of this encounter Miscellaneous Notes * Telephone Encounter - Nesha Celaya APRN-CNP - 01/25/2015 2:16 PM BUSINESS COMMUNICATIONS INSTRUCTOR I returned call to school RN, Ms. Meléndez, at [phone] ext [phone] who reports bg 313 with trace ketones at 1345, bg 321 at 1400. Last insulin was at 1230 (1.5 units when bg 277) when ate 53 gm CHO. Get 0.5 unit per 45 gm CHO at lunch. School RN to fax bgs. Will leave school in ~ 1 hour. Anaid wants a snack. I recommended a carb free snack and water. Call back immediately for moderate- large ketones. I asked school RN to fax bgs as she states bgs have been elevated lately. NESS COMMUNICATIONS INSTRUCTOR documented in this encounter Plan of Treatment Not on file documented as of this encounter Visit Diagnoses Not on filedocumented in this encounter Care Teams Lens Generator Relationship Specialty Start Date End Date Alvarez Prabhakar MD [address] [place] [phone] PCP - General 12/12/11 documented as of this encounter
--- OUTSIDE RECORDS SUMMARY | 2024-11-22 05:21 | XMS_ITS | Encounter Summary ---
Author Organization [facility] Address [address] [place] [address] Care Team Providers Care Rod Greaser Name Role Phone Alvarez Prabhakar MD Primary Care Provider Reason for Visit * Reason Onset Date Comments Blood Sugar Problem 01/12/2013 Encounter Details Date Type Department Care Team (Late st Contact Info) Description 01/12/2013 Telephone [facility] Pediatrics - Diabetes [facility] [address] [place] [address] Breana Olivas MD Blood Sugar Problem Social History Tobacco Use Types Packs/Day Years Used Date Smoking Tobacco: Never Assessed Sex and Gender Information Value Date Recorded Sex Assigned at Not on file Gender Identity Not on file Sexual Orientation Not on file documented as of this encounter Miscellaneous Notes * Telephone Encounter - Nesha Celaya RN,CPNP - 01/12/2013 12:33 PM CLOTHING CUTTER I spoke with mother and reviewed Bg ([phone]). No pattern noted for past few days. Mother reports higher Bgs at school. I asked mother to have school fax Bgs. Gives 0.5:30 for lunch at home and 0.5:40 at school. HING CUTTER documented in this encounter Plan of Treatment Not on file documented as of this encounter Visit Diagnoses Not on filedocumented in this encounter Care Teams Rod Greaser Relationship Specialty Start Date End Date Alvarez Prabhakar MD [address] [place] [address] PCP - General 12/12/11 documented as of this encounter
--- OUTSIDE RECORDS SUMMARY | 2024-11-22 05:21 | XMS_ITS | Encounter Summary ---
Author Organization [facility] Address [address] [place] [address] Care Team Providers Care Landscape Account Manager Name Role Phone Alvarez Prabhakar MD Primary Care Provider [phone] Reason for Visit * Reason Onset Date Comments MEDICATION REFILL 02/02/2015 Encounter Details Date Type Department Care Team (Late st Contact Info) Description 02/02/2015 Refill [facility] Pediatrics - Diabetes [facility] [address] [place] [address] Breana Olivas MD MEDICATION REFILL Social History [...] uncontrolled documented in this encounter Care Teams Landscape Account Manager Relationship Specialty Start Date End Date Alvarez rPabhakar MD [address] [place] [phone] PCP - General 12/12/11 documented as of this encounter
--- OUTSIDE RECORDS SUMMARY | 2024-11-22 05:21 | XMS_ITS | Encounter Summary ---
Author Organization [facility] Address [address] [place] [address] Care Team Providers Care Csw Name Role Phone Alvarez Prabhakar MD Primary Care Provider Encounter Details Date Type Department Care Team (Latest Contact Info) Description 12/24/2011 10:45 AM PICKING TECH - 12/24/2011 11:59 PM PICKING TECH Hospital Encounter [facility] - [address] [facility] [place] [address] Discharge Disposition: Home or Self Care Social History Tobacco Use Types Packs/Day Years Used Date Smoking Tobacco: Never Assessed Sex and Gender Information Value Date Recorded Sex Assigned at Not on file Gender Identity Not on file Sexual Orientation Not on file documented as of this encounter Progress Notes * Parul Hurtado R. EEG T. - 12/24/2011 12:14 PM CST For at least the last couple of months grandmother has reported to mom that Anaid (Bhavani) has been having episodes of her arms jerking while unresponsive. Mom did not thing anything of it until about 2 wks ago she witnessed one lasting about 2 min, she brought her to our ED. Mom has not witnessedany since, but grandmother did see one a couple days ago. Bhavani was very difficult to prepare for the EEG. Rina dela cruz was called and arrived about 5 min later. Behavior improved, Electrodes placed with ease. Child did lay down fairly well and would close eyes for short periods of time when requested to do so. Taking unusually long for her to get drowsy and fall asleep for EEG. She did fall asleep! ING TECH documented in this encounter Procedure Notes * Servando Figueroa MD - 12/25/2011 8:41 AM CSTAssociated Order(s): EEG [facility] Clinical Neurophysiology NAME: ANAID WHITAKER : 2005 AD[address]ESS: [address] [place] [address] UNIT #: [id number] DATE OF TEST: 12/24/2011 FUNERAL CAR DRIVER: Servando Figueroa MD This is an EEG being performed with sleep deprivation in a 6-year-old girl with a history of episodes of jerking of arms with unresponsiveness lasting a few minutes. Last event was a few days prior. She is on no medications at the time of the recording. The recording begins with the patient in a wakeful state. There is a reactive and symmetric posterior dominant rhythm with frequencies of 9 Hz and amplitudes of 30-60 microvolts. A well-organized anterior-posterior gradient is also appreciated. In drowsiness there is attenuation of the waking background with an increase in both higher amplitude delta and lower amplitude beta activities. In stage 1 sleep prominent vertex sharp activity is identified. As the recording progresses to stage 2 well-formed K complexes and sleep spindles are seen. Two occasions of predominantly left frontally sharply contoured activity are identified in sleep that are asymmetric and seem to be independent of the vertex sharp activity. Upon reawakening photic stimulation is performed which does not significantly alter the waking background. The patient was not compliant with hyperventilation. IMPRESSION: This is an abnormal electroencephalogram due 2 episodes of sharply contoured activity from chiefly the left frontal lobe which may be epileptiform in nature. This may suggest a tendency towards seizures arising from this region in the brain. The remainder of the recording is normal for age. Clinical correlation is suggested. Dictated By: Servando Figueroa MD /happyview JOB ID: [id number] cc: Alvarez Prabhakar M.D. ING TECH documented in this encounter Miscellaneous Notes * Miscellaneous Scans - Document, Scanned - 01/09/2012 12:55 PM CST ING TECH documented in this encounter Plan of Treatment Not on file documented as of this encounter Procedures Procedure Name Priority Date/Time Associated Diagnosis Comments EEG Routine 12/24/2011 Seizure (HCC) documented in this encounter Results * EEG (12/24/2011) 12/24/2011 Narrative Transcriptions Servando Figueroa MD - 12/25/2011 8:41 AM CST [facility] Clinical Neurophysiology NAME: ANAID WHITAKER : 2005 ADDRESS: [address] [place] [address] UNIT #: [id number] DATE OF TEST: 12/24/2011 FUNERAL CAR DRIVER: Servando Figueroa MD This is an EEG [...] is suggested. Dictated By: Servando Figueroa MD /MevvyRenan JOB ID: [id number] cc: Alvarez Prabhakar M.D. Servando Figueroa MD NEUROLOGY ORDERABLES [facility] documented in this encounter Visit Diagnoses Diagnosis Seizure (HCC) Other convulsions documented in this encounter Care Teams Csw Relationship Specialty Start Date End Date Alvarez Prabhakar MD [address] [place] [address] PCP - General 12/12/11 documented as of this encounter
--- OUTSIDE RECORDS SUMMARY | 2024-11-22 05:21 | XMS_ITS | Encounter Summary ---
Author Organization [facility] Address [address] [facility] [place] [address] Care Team Providers Care Boiler Plant Worker Name Role Phone Alvarez Prabhakar MD Primary Care Provider [phone] Reason for Visit * Reason Onset Date Comments MEDICATION REFILL 08/18/2012 Encounter Details Date Type Department Care Team (Late st Contact Info) Description 08/18/2012 Refill [facility] Pediatrics - Diabetes [facility] [address] [place] [address] Breana Olivas MD MEDICATION REFILL Social History [...] uncontrolled documented in this encounter Care Teams Boiler Plant Worker Relationship Specialty Start Date End Date Alvarez Prabhakar MD [address] [place] [phone] PCP - General 12/12/11 documented as of this encounter
--- OUTSIDE RECORDS SUMMARY | 2024-11-22 05:21 | XMS_ITS | Encounter Summary ---
Author Organization [facility] Address [address] [facility] [place] [address] Care Team Providers Care Gravel Inspector Name Role Phone Alvarez Prabhakar MD Primary Care Provider [phone] Reason for Visit * Reason Comments Diabetes Type 1 Follow-up Visit Encounter Details Date Type Department Care Team (Late st Contact Info) Description 09/03/2012 8:40 AM CDT - 09/03/2012 11:59 PM CDT Hospital Encounter [facility] Pediatrics - Diabetes Mgmt [address] [place] [address] Kory Lopez APRN-RECORD [place]ING [place] [id number] Discharge Disposition: Home or Self Care Social History Tobacco Use Types Packs/Day Years Used Date Smoking Tobacco: Never Assessed Sex and Gender Information Value Date Recorded Sex Assigned at Not on file Gender Identity Not on file Sexual Orientation Not on file documented as of this encounter Last Filed Vital Signs Vital Sign Reading Time Taken Comments Blood Pressure 90/56 09/03/2012 8:38 AM CDT Pulse - - Temperature - - Respiratory Rate - - Oxygen Saturation - - Inhaled Oxygen Concentration - - Weight 21.5 kg (47 lb 4.8 oz) 09/03/2012 8:38 AM CDT Height 124.8 cm (4' 1.13 ) 09/03/2012 8:38 AM CD T Body Mass Index 13.78 09/03/2012 8:38 AM CDT Body Mass Index Percentile 8.06% 09/03/2012 8:3 8 AM CDT Growth Chart: [facility] (Girls, 2- 20 Years) documented in this encounter Discharge Instructions * Patient Instructions* Kory Lopez RN,PNP-BC - 09/03/2012 9:10 AM CDT No changes necessary today Call with patterns of blood sugars higher than 200, 3 days in a row Return in 3 months for Getachew or Dr. Olivas documented in this encounter Medications [...] .3CC/31G) 31G X 5/16 0.3 ML syringeIndications:Nahed landon mellitus type 1 (HCC) Use for injections 1-2 times daily. 100 Each 08/18/2012 06/20/2014 documented as of this encounter Progress Notes * Kory Lopez RN,PNP-BC - 09/03/2012 8:46 AM CDT Anaid Dimas and her mother were in our Pediatric Endocrinology clinic at [facility] on 09/03/2012. He is a 6 y.o. 10 m.o. who has had Type 1 Diabetes Mellitus since July 2012, likely identified early with a very slow onset. Anaid???s current treatmentregimen is as follows: Insulin Brand/Type:Humalog Delivery Device:Luxura Insulin to Carbohydrate Ratios:0.5/30 Lantus Dose:none Correction Dose:0.5 unit if over 200 Injection Sites and Compliance:in her arms, given by mother, grandmother Average Daily Total: 3 units Interval History: significant for no major issues. She has experienced no major issues related to diabetes management since our past visit. Diabetes Self-Management: Anaid checks her blood glucose 4 times per day using a Accucheck/Drake meter. Anaid???s target blood glucose range is 80-180. Anaid experiences 0-1 lows per week that are sensed when the blood sugar is less than 80. Anaid feels the following symptoms when he/sheis hypoglycemic: not sensed at this time. Low blood sugars are treated with juice with 15 grams carb rechecks in 15 minutes. This patient has glucagon and She does not wear her Medic-Alert tag. Anaid checks urine for ketones when glucose >250 and ill. Social History: Anaid lives with mother only. She is in the 2nd grade at [employer] and is achieving good grades. She has an in-tact diabetes management plan for school. Anaid has many friendsand expresses feelings of fear regarding living with diabetes. For extracurricular activity Anaid enjoys art, reading, math, singing, swimming. Past Medical History: unchanged since last visit Other Diagnosis: none Other Medications: none Family Medical History: unchanged since last visit Review of Systems: General: sleeping well, very energetic ENT: wears glasses for distance, brushes teeth BID Skin: normal Cardiorespiratory: normal Gastrointestinal: normal Genitourinary: decreasing nocturnal enuresis Endocrine: no fatigue or temperature intolerance Psychiatric: hyperactive Neurologic: normal Musculoskeletal: No muscle weakness, No joint pain and normal range of motion Physical Examination: BP 90/56 Ht 1.248 m (4' 1.13 ) Wt 21.455 kg (47 lb 4.8 oz) BMI 13.78 kg/m2 Height: 124.8 cm (4' 1.13 ) General: alert and oriented; well-appearing Eyes: Normal- EOM intact, normal fundi HEENT: Normal Neck: Normal- thyroid not enlarged Chest/Breast: Normal- tanner1 Lungs: Clear to auscultation, unlabored breathing Heart: Normal PMI, regular rate & rhythm, normal S1,S2, no murmurs, rubs, or gallops Abdomen: Normal scaphoid appearance, soft, non-tender, without organ enlargement or masses. Genitourinary: Not examined Musculoskeletal: Normal symmetric bulk and strength Lymphatic: No abnormally enlarged lymph nodes. Skin/Hair/Nails: No rashes or abnormal dyspigmentation Neurologic: Mental status normal,DTR 3+, normal strength and tone, normal gait Laboratory Data: 14-Day Blood Glucose Statistics: Pre-Breakfast Pre-Lunch Pre-Dinner Bedtime Other Low 95 84 96 72 High 182 237 259 238 ~Average~ 115 130 140 150 Assessment: good control Management Plan: No changes necessary today Call with patterns of blood sugars higher than 200, 3 days in a row Return in 3 months for Getachew or Dr. Olivas Of the 45 minutes spent with Anaid, 20 minutes were spent discussing HgbA1c, hypoglycemia, ketosis, exercise, glucagon, sick days, control and complications, blood glucose monitoring and parental supervision documented in this encounter Consult Notes * Mar Mcrae, KAREN/LD - 09/03/2012 9:18 AM CDT Diabetes Nutrition first follow up visit Date: 09/03/2012 Anaid Dimas is a 6 y.o. 10 m.o. female seen for nutrition diabetes management review following clinic diagnosis of early onset type 1 diabetes. Assessment: Weight: 21.455 kg (47 lb 4.8 oz) 14.28%ile based on CDC 2-20 Years [id number] data. Height: 124.8 cm (4' 1.13 ) 35.23%ile based on CDC 2-20 Years [id number] data. Body mass index is 13.78 kg/(m^2). 8.05%ile based on CDC 2-20 Years BMI-for-age data. Diabetes therapy: no lantus. humalog 1/2 unit per 30-40 grams carbohydrate Nutrition profile: Mother describes good appetite, eating 3 meals, 2-3 snacks. Meals and snacks appear varied with variety grains, dairy, meat, fruit and vegetables intake. Snacks are offered at under 20 grams carbohydrate to avoid injection, per mother. Had questions regarding free foods. Mother demonstrated accurate practice of carbohydrate counting by completing worksheets with 100% accuracy. Measuring and counting carbohydrates accurately: yes Nutrition diagnosis: no new nutrition diagnosis Intervention: Praised current carbohydrate counting efforts Provided list of free foods but encouraged snacks to be based on appetite and not if insulin required. Monitor: Labs BMI/growth velocity 30 minutes have been spent with nutrition counseling and nutrition education Mar Mcrae RD/VEE /CDE documented in this encounter Miscellaneous Notes * Miscellaneous Scans - Document, Scanned - 12/15/2012 9:09 AM CST TE SENSING RESEARCH SCIENTIST documented in this encounter Plan of Treatment Not on file documented as of this encounter Visit Diagnoses Not on filedocumented in this encounter Care Teams Gravel Inspector Relationship Specialty Start Date End Date Alvarez Prabhakar MD [address] [place] [phone] PCP - General 1/20/12 documented as of this encounter
--- OUTSIDE RECORDS SUMMARY | 2024-11-22 05:21 | XMS_ITS | Encounter Summary ---
Author Organization [facility] Address [address] [place] [address] Care Team Providers Care Manager Apple Name Role Phone Alvarez Prabhakar MD Primary Care Provider Reason for Visit * Reason Onset Date Comments Letter for School or Work 08/23/2012 Encounter Details Date Type Department Care Team (Late st Contact Info) Description 08/23/2012 Telephone [facility] Pediatrics - Diabetes [address] [address] Breana Olivas MD Letter for School or Work Social History Tobacco Use Types Packs/Day Years Used Date Smoking Tobacco: Never Assessed Sex and Gender Information Value Date Recorded Sex Assigned at Not on file Gender Identity Not on file Sexual Orientation Not on file documented as of this encounter Miscellaneous Notes * Telephone Encounter - Nesha Celaya RN,CPNP - 08/23/2012 9:35 AM CDT I attempted to call mother and no answer. Left message to call diabetes nurse if updated school letter is needed today. documented in this encounter Plan of Treatment Not on file documented as of this encounter Visit Diagnoses Not on filedocumented in this encounter Care Teams Manager Apple Relationship Specialty Start Date End Date Alvarez Prabhakar MD [address] [place] [phone] PCP - General 12/12/11 documented as of this encounter
--- OUTSIDE RECORDS SUMMARY | 2024-11-22 05:21 | XMS_ITS | Encounter Summary ---
Author Organization [facility] Address [address] [address] [place] [address] Care Team Providers Care Road Grader Name Role Phone Alvarez Prabhakar MD Primary Care Provider Reason for Visit * Reason Onset Date Comments Missed Appointment 05/12/2013 Encounter Details Date Type Department Care Team (Late st Contact Info) Description 05/12/[address] [facility] Pediatrics - Endocrinology [address] [facility] [place] [address] Leeanne Croft, PACK MASTER-TECHNICAL LEAD Retired Missed Appointment Social History Tobacco Use Types Packs/Day Years Used Date Smoking Tobacco: Never Assessed Sex and Gender Information Value Date Recorded Sex Assigned at Not on file Gender Identity Not on file Sexual Orientation Not on file documented as of this encounter Miscellaneous Notes * Telephone Encounter - Leeanne Croft, RN,CPNP - 05/12/2013 5:14 PM CDT I called and spoke with mother, as nAaid missed her diabetes appointment today. Mother tells me she did not know about today's appointment. Rescheduled with Dr. Olivas for 05/16/13 at 8:30 AM. documented in this encounter Plan of Treatment Not on file documented as of this encounter Visit Diagnoses Not on filedocumented in this encounter Care Teams Road Grader Relationship Specialty Start Date End Date Alvarez Prabhakar MD [address] [place] [address] PCP - General 12/12/11 documented as of this encounter
--- OUTSIDE RECORDS SUMMARY | 2024-11-22 05:21 | XMS_ITS | Encounter Summary ---
Author Organization [facility] Address [address] [place] [address] Care Team Providers Care Shelving Supervisor Name Role Phone Alvarez Prabhakar MD Primary Care Provider [phone] Reason for Visit * Reason Onset Date Comments Blood Sugar Problem 01/11/2013 Encounter Details Date Type Department Care Team (Late st Contact Info) Description 01/11/2013 Telephone [facility] Pediatrics - Diabetes [address] [place] [address] Breana Olivas MD Blood Sugar Problem Social History Tobacco Use Types Packs/Day Years Used Date Smoking Tobacco: Never Assessed Sex and Gender Information Value Date Recorded Sex Assigned at Not on file Gender Identity Not on file Sexual Orientation Not on file documented as of this encounter Miscellaneous Notes * Telephone Encounter - Xochilt Child RN - 01/11/2013 4:14 PM CST Returned mom's call to review blood sugars ([phone]). Mom left message stating blood sugars are running high at school and she believes doses need adjusted. I spoke with mom and mom does not have blood sugars with her. I asked mom to call tomorrow morning to review blood sugars. L DRAWER documented in this encounter Plan of Treatment Not on file documented as of this encounter Visit Diagnoses Not on filedocumented in this encounter Care Teams Shelving Supervisor Relationship Specialty Start Date End Date Alvarez Prabhakar MD [address] [place] [address] PCP - General 12/12/11 documented as of this encounter
--- OUTSIDE RECORDS SUMMARY | 2024-11-22 05:21 | XMS_ITS | Encounter Summary ---
Author Organization [facility] Address [address] [facility] [place] [address] Care Team Providers Care Store Stock Help Name Role Phone Alvarez Prabhakar MD Primary Care Provider [phone] Reason for Visit * Reason Onset Date Comments MEDICATION REFILL 09/12/2014 Encounter Details Date Type Department Care Team (Late st Contact Info) Description 09/12/2014 Refill [facility] Pediatrics - Diabetes [facility] [address] [place] [address] Leeanne Croft, ASSEMBLER ERECTOR-MINER Retired MEDICATION REFILL Social History Tobacco Use [...] uncontrolled documented in this encounter Care Teams Store Stock Help Relationship Specialty Start Date End Date Alvarez Prabhakar MD [address] [place] [address] PCP - General 12/12/11 documented as of this encounter
--- OUTSIDE RECORDS SUMMARY | 2024-11-22 05:21 | XMS_ITS | Encounter Summary ---
Author Organization [facility] Address [address] [place] [address] Care Team Providers Care Track Repair Supervisor Name Role Phone Alvarez Prabhakar MD Primary Care Provider [phone] Reason for Visit * Reason Onset Date Comments Blood Sugar Problem 03/28/2013 Encounter Details Date Type Department Care Team (Late st Contact Info) Description 03/28/2013 Telephone [facility] Pediatrics - Diabetes Mgmt [address] [place] [address] Leeanne Croft, E BUSINESS CONSULTANT-SIZING MACHINE TENDER Retired Blood Sugar Problem Social History Tobacco Use Types Packs/Day Years Used Date Smoking Tobacco: Never Assessed Sex and Gender Information Value Date Recorded Sex Assigned at Not on file Gender Identity Not on file Sexual Orientation Not on file documented as of this encounter Miscellaneous Notes * Telephone Encounter - Nesha Celaya RN,CPNP - 03/28/2013 4:23 PM CDT I spoke with mother who states that Anaid will start staying with her father on some weekends and he will need training for her diabetes care. I asked mother to have father call diabetes nurse to schedule class. She also wants to know if Anaid can play soccer. I discussed that exercise is beneficial for Anaid. I recommended extra Bg checks before, during and after soccer and that Anaid may need snack before practice/games to prevent low Bg. documented in this encounter Plan of Treatment Not on file documented as of this encounter Visit Diagnoses Not on filedocumented in this encounter Care Teams Track Repair Supervisor Relationship Specialty Start Date End Date Alvarez Prabhakar MD [address] [place] [address] PCP - General 12/12/11 documented as of this encounter
--- OUTSIDE RECORDS SUMMARY | 2024-11-22 05:21 | XMS_ITS | Encounter Summary ---
Author Organization [facility] Address [address] [facility] [place] [address] Care Team Providers Care Building Code Inspector Name Role Phone Alvarez Prabhakar MD Primary Care Provider [phone] Reason for Visit * Reason Onset Date Comments Blood Sugar Problem 12/22/2013 Encounter Details Date Type Department Care Team (Late st Contact Info) Description 12/22/2013 Telephone [facility] Pediatrics - Diabetes [facility] [address] [place] [address] Kory Lopez APRN-B2B SALES EXECUTIVE [address] [place] [id number] Blood Sugar Problem Social History Tobacco Use Types Packs/Day Years Used Date Smoking Tobacco: Never Assessed Sex and Gender Information Value Date Recorded Sex Assigned at Not on file Gender Identity Not on file Sexual Orientation Not on file documented as of this encounter Miscellaneous Notes * Telephone Encounter - Lizeth Garrett RN - 12/22/2013 10:03 AM VEGETABLE VENDOR Mother calling to verify that child had correction dose. From chart noted that child did have correction dose in 2011 but has not had a correction dose yet this school year because insulin doses havedecreased with patient in honeymoon period. Noted mother talked with Getachew DAILY yesterday to review blood sugars and was told to increase Lantus to 2 units and call back on Thursday to review blood sugars. I told mother to follow recommendations given to her by nurse practitioner. Mother wanting to know if she should contact diabetes team if blood sugar is 400? I told her she should check ketones if has an elevated blood sugar > 250 and if moderate to large ketones or vomits once to call immediately. Told mother to call same day if has trends of elevated blood sugars all day or trends of elevated blood sugars same time every day for 2-3 days. She agreed to call tomorrow to review blood sugars and was aware at this point no correction was ordered at this time. TABLE VENDOR documented in this encounter Plan of Treatment Not on file documented as of this encounter Visit Diagnoses Not on filedocumented in this encounter Care Teams Building Code Inspector Relationship Specialty Start Date End Date Alvarez Prabhakar MD [address] [place] [address] PCP - General 12/12/11 documented as of this encounter
--- OUTSIDE RECORDS SUMMARY | 2024-11-22 05:21 | XMS_ITS | Encounter Summary ---
Author Organization [facility] Address [address] [facility] [place] [address] Care Team Providers Care Egg Breaking Machine Operator Name Role Phone Alvarez Prabhakar MD Primary Care Provider Reason for Visit * Reason Onset Date Comments General 03/25/2013 Encounter Details Date Type Department Care Team (Late st Contact Info) Description 03/25/2013 Telephone [facility] Pediatrics - Diabetes [address] [place] [address] Leeanne Croft, DISTRICT PLANT SUPERINTENDENT-LACQUER SPRAY BOOTH OPERATOR Retired General Social History Tobacco Use Types Packs/Day Years Used Date Smoking Tobacco: Never Assessed Sex and Gender Information Value Date Recorded Sex Assigned at Not on file Gender Identity Not on file Sexual Orientation Not on file documented as of this encounter Miscellaneous Notes * Telephone Encounter - Jones Mcconnell RN - 03/25/2013 1:45 PM CDT Mom called, requests a HumaPen Luxura, she has voucher. RX sent documented in this encounter Plan of Treatment Not on file documented as of this encounter Visit Diagnoses Not on filedocumented in this encounter Care Teams Egg Breaking Machine Operator Relationship Specialty Start Date End Date Alvarez Prabhakar MD [address] [place] [address] PCP - General 12/12/11 documented as of this encounter
--- OUTSIDE RECORDS SUMMARY | 2024-11-22 05:21 | XMS_ITS | Encounter Summary ---
Author Organization [facility] Address [address] [place] [address] Care Team Providers Care Dye House Helper Name Role Phone Alvarez Prabhakar MD Primary Care Provider [phone] Reason for Visit * Reason Onset Date Comments General 03/30/2013 Encounter Details Date Type Department Care Team (Late st Contact Info) Description 03/30/2013 Telephone [facility] Pediatrics - Diabetes [facility] [address] [place] [address] Kory Lopez APRN-ADMINISTRATIVE SUPPORT COORDINATOR [address] [place] [phone] General Social History Tobacco Use Types Packs/Day Years Used Date Smoking Tobacco: Never Assessed Sex and Gender Information Value Date Recorded Sex Assigned at Not on file Gender Identity Not on file Sexual Orientation Not on file documented as of this encounter Miscellaneous Notes * Telephone Encounter - Xochilt Child RN - 03/30/2013 2:56 PM CDT Returned dad's call to schedule a diabetes class ([phone]). I scheduled the class for dad 04/08/13 at 0900. documented in this encounter Plan of Treatment Not on file documented as of this encounter Visit Diagnoses Not on filedocumented in this encounter Care Teams Dye House Helper Relationship Specialty Start Date End Date Alvarez Prabhakar MD [address] [place] [address] PCP - General 12/12/11 documented as of this encounter
--- OUTSIDE RECORDS SUMMARY | 2024-11-22 05:21 | XMS_ITS | Encounter Summary ---
Author Organization [facility] Address [address] [facility] [place] [address] Care Team Providers Care Car Trimmer Name Role Phone Alvarez Prabhakar MD Primary Care Provider Encounter Details Date Type Department Care Team (Late st Contact Info) Description 06/19/2014 Orders Only [facility] Pediatrics - Endocrinology [address] [place] [address] Breana Olivas MD Type 1 [...] (ABNORMAL) HEMOGLOBIN A1C - POCT (IP) ALEXANDRA (06/20/2014 11:34 AM CDT) Hemoglobin A1c POCT 7.7(A) 3.4 - 6.1 % [facility] POCT TESTING QC Verified Yes [facility] PO CT TESTING Blood specimen (specimen) BLOOD SPECIMEN / Unknown 06/20/2014 11:34 AM CDT Breana Olivas MD LAB - POINT OF CARE ORDERABLES [facility] POCT TESTING [address] [place], [place] [id number] [place] [address] documented in this encounter Visit Diagnoses Diagnosis Type 1 diabetes mellitus (HCC)- Primary Type I (juvenile type) diabetes mellitus without mention of complication, not stated as uncontrolled documented in this encounter Care Teams Car Trimmer Relationship Specialty Start Date End Date Alvarez Prabhakar MD [address] [place] [address] PCP - General 12/12/11 documented as of this encounter
--- OUTSIDE RECORDS SUMMARY | 2024-11-22 05:21 | XMS_ITS | Encounter Summary ---
Author Organization [facility] Address [address] [place] [address] Care Team Providers Care Accounts Receivable Executive Name Role Phone Alvarez Prabhakar MD Primary Care Provider [phone] Reason for Visit * Reason Comments Establish Care lab work abnormal Encounter Details Date Type Department Care Team (Late st Contact Info) Description 08/18/2012 10:00 AM CDT - 08/18/2012 11:59 PM CDT Hospital Encounter [facility] Pediatrics - Endocrinology [address] [place] [address] [place] [address] [facility] [address] [place] [address] Breana Olivas MD Discharge Disposition: Home or Self Care Social History Tobacco Use Types Packs/Day Years Used Date Smoking Tobacco: Never Assessed Sex and Gender Information Value Date Recorded Sex Assigned at Not on file Gender Identity Not on file Sexual Orientation Not on file documented as of this encounter Last Filed Vital Signs Vital Sign Reading Time Taken Comments Blood Pressure 96/52 08/18/2012 10:23 AM CDT Pulse 88 08/18/2012 10:23 AM CDT Temperature - - Respiratory Rate 20 08/18/2012 10:2 3 AM CDT Oxygen Saturation - - Inhaled Oxygen Concentration - - Weight 21.4 kg (47 lb 2.9 oz) 2 10:23 AM CDT Height 123.4 cm (4' 0.58 ) 08/18/2012 1 0:23 AM CDT Body Mass Index 14.05 08/18/2012 10:23 AM CDT Body Mass Index Percentile 12.31% 08/18 10:23 AM CDT Growth Chart: [facility] (Girls, 2- 20 Years) documented in this [...] sugar reaction. 2 Kit 1 08/18/2012 08/11/2014 Insulin Pen Needle (BD PEN NEEDLE DRAKE [...] Progress Notes * Breana Olivas MD - 08/18/2012 10:34 AM CDT Anaid Whitaker and her mother were seen in our Pediatric Endocrinology offices on 08/18/12. She is a 6 y.o. 10 m.o. AA girl who is referred for evaluation of hyperglycemia. Present Illness: Anaid had screening lab work by Dr. Prabhakar due to a 1-month history of daytime accidents and worse primary enuresis with nocturia x 2-3. By report, her BS was 154 and there was glucose but no ketones on a urine dip. She was referred to our ER yesterday for evaluation; her labs are listed below. The ER staff contacted me to discuss her conflicting lab data and we arranged today's Diabetes Clinic visit. Review of Systems: Constitutional: hyperactive, good appetite, sleeps ~10 hours Endocrine: negative Skin: negative Eyes: glasses ENT/Mouth: negative Cardiovascular: negative Respiratory: negative GI: normal BM at least once daily, somewhat lactose intolerant : see above Musculoskeletal: negative Neurologic: negative Psychiatric: poor attention span and work completion All other systems reviewed and were negative. Past Medical History: History, Labor, Delivery and Period: in her mother was uncomplicated. Vaginal delivery occurred at term at [facility]. Anaid weighed 5 lbs 6 oz, measured 20 , and was a healthy other than hyperbilirubinemia. She was readmitted for phototherapy. Development: Her milestones have been achieved in a normal sequence and at appropriate ages. Illness: Generally healthy. Multiple seizure-like episodes this spring (arms jerking, eyes deviated, sometimes postictal) with Neurology evaluation. Trauma / Surgery: None Hospitalizations: Readmission for therapy of hyperbilirubinemia, described above. Current Medications: No current outpatient prescriptions on file prior to encounter. Allergies: Review of patient's allergies indicates no known allergies. Family History: Father is 33 years old, height 5'4 , weight not provided, and has asthma. He is not currently allowed to see Anaid. Mother is 29 years old, 5'5 , weight 240 lbs, and healthy. She is an WAFER SLICER. Her menarche occurred at 10 years of age; she takes Provera for irregular periods. Anaid has 3 half-siblings of her father's. The grandparents' histories are as follows: paternal grandparents no information, maternal grandfather s/p hernia repairs, and maternal grandmother healthy. There is no known diabetes of either type. Social History: Anaid lives with her mother and attends 2nd grade. Physical Examination: BP 96/52 Pulse 88 Resp 20 Wt 21.4 kg (47 lb 2.9 oz) BMI 14.05 kg/m2 Weight: 21.4 kg (47 lb 2.9 oz) - 14.64%ile based on CDC 2-20 Years uaftbc-wax-ntk data. Height: 123.4 cm (4' 0.58 ) - 28.06%ile based on CDC 2-20 Years ttfechx-zaa-nnk data. Body mass index is 14.05 kg/(m^2). - 12.31%ile based on CDC 2-20 Years BMI-for-age data. General: Well-appearing, petite/thin, hyperactive girl. Skin/Hair/Nails: Warm and dry. No observable rashes. Fbma-ie-jkgu macule on right thigh; [place] Citizen spot on buttocks. Head: Normocephalic, atraumatic. Eyes: Glasses. Sclerae clear, PERRLA, EOMs intact. ENT/Mouth: Tympanic membranes and oropharynx benign. Dentition: 8 permanent teeth. Fillings. Neck: Supple. Thyroid not enlarged. Chest/breasts: Miquel 1. Symmetric. Lungs clear to auscultation, unlabored breathing. CV system unremarkable with regular heart rate and rhythm, normal S1/S2, no murmurs, rubs, or gallops, and 2+ femoral pulses. Abdomen: Soft, non-tender, without organ enlargement or masses. : Miquel 1. No yeast infection. Extremities: No cyanosis or edema. Lymphatic: No abnormally enlarged lymph nodes. Back: No scoliosis. Neurologic system: Non-focal. DTRs 2+ and equal. Laboratory Data: Results for ANAID WHITAKER ( ) as of 08/18/2012 10:37 Ref. Range 08/17/2012 17:14 08/17/2012 17:14 08/17/2012 17:27 08/17/2012 17:46 08/17/2012 17:46 08/17/2012 17:51 08/17/2012 19:05 Glucose Latest Range: 70-105 mg/dL 98 64 (L) BUN Latest Range: 6.7-19.6 mg/dL 18.8 Creatinine Latest Range: 0.53-0.80 mg/dL 0.39 (L) Sodium Latest Range: 136-145 mmol/L 139 Potassium Latest Range: 3.5-5.1 mmol/L 4.4 Chloride Latest Range: 98-107 mmol/L 103 CO2 Latest Range: 20-28 mmol/L 22 Anion Gap Latest Range: 5-20 mmol/L 14 Calcium Latest Range: 9.12-10.48 mg/dL 10.41 eGFR by MDRD No range found Pend eGFR by MDRD AFR AMER No range found Pend Hgb A1C Latest Range: 3.4-6.1 % 8.5 (H) Average Glucose No range found 197 Hgb Venous No range found 14.2 12.7 CULTURE URINE No range found Rpt Color UA Latest Range: Straw, Yellow, Dark Yellow Straw Clarity UA Latest Range: Clear Clear Specific Waller UA Latest Range: 1.003-1.030 <=1.005 pH UA Latest Range: 5.0-8.0 5.5 Protein UA Latest Range: Negative Negative Blood UA Latest Range: Negative Negative Leukocyte UA Latest Range: Negative Negative Nitrite UA Latest Range: Negative Negative Glucose UA Latest Range: Negative Negative Ketone UA Latest Range: Negative Negative Bili UA Latest Range: Negative Negative Urobilinogen UA Latest Range: 0.2-1.0 EU/dL 0.2 WBC UA Latest Range: 0-2, 2-5 # /hpf 0-2 RBC UA Latest Range: 0-2, 2-5 # /hpf 0-2 Epithelial Cell UA Latest Range: 0-2, 2-5 0-2 Mucus Ua Latest Range: None, Trace Trace Bacteria UA Latest Range: None, Trace Trace Impression: 1. Early type 1 diabetes (antibodies pending from the ER visit); no insulin requirement yet. 2. Suspect ADHD, needs evaluation. Management Plan: Nutrition consult; no concentrated sweets diet, encourage water. Diabetes nurse consultation. Blood sugar testing once daily ~2 hours after dinner with target [id number]. Test urine ketones and then call for blood sugars of 200 or greater. Given materials on type 1 diabetes, an Accu[employer]k Drake meter, a log book, and our team phone list. Discussed unpredictability of progression to needing insulin; may be anywhere from weeks to months. Return visit in 6 weeks. documented in this encounter Consult Notes * Mar Mcrae RD/VEE - 08/18/2012 11:13 AM CDT Initial Nutrition Assessment Anaid Ernst a 6 y.o. 10 m.o. female Assessment: Met with mother in Endocrine clinic for early onset type 1 diabetes nutrition education. Lives with mother who works evening/weight shifter. Pt is then with father or at grandmother's house. Does not follow a set meal schedule and meals can be inconsistent depending upon who is caring for her. Meals appear varied, eating variety of meats, starches, fresh fruit/vegetables and drinking fruit juice/lemonade/water. Can tolerate milk but more than 2 cups per day can result in diarrhea. Does not buy salted or sweet snacks. Loves cereal for snacks. Mother asking if she has to buy special low carb foods/cereal with no sugar and asking if pt can still eat bread, pizza. Anthropometrics: Weight: 21.4 kg (47 lb 2.9 oz) 14.64%ile based on CDC 2-20 Years nrnszi-tov-zyz data. Height: 123.4 cm (4' 0.58 ) 28.06%ile based on CDC 2-20 Years iixgvhd-cxj-xez data. Body mass index is 14.05 kg/(m^2). 12.31%ile based on CDC 2-20 Years BMI-for-age data. Labs/Tests/Procedures Component Name 08/17/12 1727 HGBA1C 8.5* Nutrition Care Process Nutrition Diagnostic Statement: (NB-1.1) Food and nutrition-related knowledge deficit related to: no prior exposure to diabetes nutrition education as evidenced by : newly diagnosed diabetes Nutrition Intervention Initial/Brief Nutrition Education: Identified food sources of basic nutrients and its effect on blood glucose level Explained age appropriate meal planning to promote optimal growth and development Explained carbohydrate counting as it relates to lantus regimen Instructed how to read a nutrition label for carbohydrate content per serving Monitor: A1c and understanding of carbohydrate counting 30 minutes have been spent in providing nutrition counseling and nutrition education. JAGDISH Valdez /CDE 08/19/12: Addendum: Phone call 10am Dr. Olivas asked RD to call mother to review carbohydrate counting as insulin will be initiated today with meals/snacks. Mother to measure carbohydrate containing foods at meal/snack time and calculate insulin based on mpifhsw-ij-auxznenmxoge ratio as prescribed by Dr. Olivas (1/2 unit per 20 grams). Mother verbalized understanding. Mother to call Dr. Olivas with BG readings this evening. documented in this encounter Miscellaneous Notes * Miscellaneous Scans - Document, Scanned - 09/04/2012 2:53 PM CDT * Miscellaneous Scans - Document, Scanned - 09/02/2012 8:45 AM CDT * Miscellaneous Scans - Document, Scanned - 09/01/2012 2:53 PM CDT * Miscellaneous Scans - Document, Scanned - 08/28/2012 10:38 AM CDT documented in this encounter Plan of Treatment Not on file documented as of this encounter Visit Diagnoses Not on filedocumented in this encounter Care Teams Accounts Receivable Executive Relationship Specialty Start Date End Date Alvarez Prabhakar MD [address] [place] [phone] PCP - General 12/12/11 documented as of this encounter
--- OUTSIDE RECORDS SUMMARY | 2024-11-22 05:21 | XMS_ITS | Encounter Summary ---
Author Organization [facility] Address [address] [place] [address] Care Team Providers Care Copy Holder Name Role Phone Alvarez Prabhakar MD Primary Care Provider [phone] Reason for Visit * Reason Onset Date Comments General 09/03/2012 Encounter Details Date Type Department Care Team (Late st Contact Info) Description 09/03/2012 Telephone [facility] Pediatrics - Diabetes Mgmt [address] [place] [address] Kory Lopez APRN-FINANCIAL ANALYST [address] [place] [id number] General Social History Tobacco Use Types Packs/Day Years Used Date Smoking Tobacco: Never Assessed Sex and Gender Information Value Date Recorded Sex Assigned at Not on file Gender Identity Not on file Sexual Orientation Not on file documented as of this encounter Miscellaneous Notes * Telephone Encounter - Xochilt Child RN - 09/03/2012 10:15 AM CDT Anaid was seen in clinic today. Mom informed KILLIAN Mclean she was given the Humalog Kwikpeninstead of the Humalog cartridge. I called and spoke with [employer] who states they are aware of the mix up and mom had called and spoke with the pharmacist on Thursday and they are waiting on mom to return the Kwikpens to exchange them for cartridges. The cartridges arrived at the pharmacy on Thursday. I attempted to call Anaid's mother but she was not home. documented in this encounter Plan of Treatment Not on file documented as of this encounter Visit Diagnoses Not on filedocumented in this encounter Care Teams Copy Holder Relationship Specialty Start Date End Date Alvarez Prabhakar MD [address] [place] [address] PCP - General 12/12/11 documented as of this encounter
--- OUTSIDE RECORDS SUMMARY | 2024-11-22 05:21 | XMS_ITS | Encounter Summary ---
Author Organization [facility] Address [address] [place] [address] Care Team Providers Care Correspondence Dictator Name Role Phone Alvarez Prabhakar MD Primary Care Provider [phone] Reason for Visit * Reason Onset Date Comments Blood Sugar Problem 08/25/2012 Encounter Details Date Type Department Care Team (Late st Contact Info) Description 08/25/2012 Telephone [facility] Pediatrics - Diabetes Mgmt [address] [place] [address] Kory Lopez APRN-MS SQL DEVELOPER [address] [place] [phone] Blood Sugar Problem Social History Tobacco Use Types Packs/Day Years Used Date Smoking Tobacco: Never Assessed Sex and Gender Information Value Date Recorded Sex Assigned at Not on file Gender Identity Not on file Sexual Orientation Not on file documented as of this encounter Miscellaneous Notes * Telephone Encounter - Nesha Celaya RN,CPNP - 08/25/2012 11:32 AM CDT I spoke with mother and scheduled HULL DRAFTER/RD visit for 09/03/12 as mother would like to come back wuzunl25/9/12 appointment. Faxed med auth forms for school as requested [phone]. documented in this encounter Plan of Treatment Not on file documented as of this encounter Visit Diagnoses Not on filedocumented in this encounter Care Teams Correspondence Dictator Relationship Specialty Start Date End Date Alvarez Prabhakar MD [address] [place] [address] PCP - General 12/12/11 documented as of this encounter
--- OUTSIDE RECORDS SUMMARY | 2024-11-22 05:21 | XMS_ITS | Encounter Summary ---
Author Organization [facility] Address [address] [place] [address] Care Team Providers Care Hydrotherapist Name Role Phone Alvarez Prabhakar MD Primary Care Provider [phone] Encounter Details Date Type Department Care Team (Latest Contact Info) Description 10/01/2012 8:56 AM INSTRUCTIONAL TECHNOLOGY TEACHER - 10/01/2012 11:59 PM INSTRUCTIONAL TECHNOLOGY TEACHER Hospital Encounter [facility] Pediatrics - Diabetes [address] [place] [address] Breana Olivas MD Discharge Disposition: Home or Self Care Social History Tobacco Use Types Packs/Day Years Used Date Smoking Tobacco: Never Assessed Sex and Gender Information Value Date Recorded Sex Assigned at Not on file Gender Identity Not on file Sexual Orientation Not on file documented as of this encounter Last Filed Vital Signs Vital Sign Reading Time Taken Comments Blood Pressure 100/60 10/01/2012 8:57 AM INSTRUCTIONAL TECHNOLOGY TEACHER Pulse - - Temperature - - Respiratory Rate - - Oxygen Saturation - - Inhaled Oxygen Concentration - - Weight 21.3 kg (47 lb) 10/01/2012 8:57 AM INSTRUCTIONAL TECHNOLOGY TEACHER Height 125 cm (4' 1.21 ) 10/01/2012 8:57 AM INSTRUCTIONAL TECHNOLOGY TEACHER Body Mass Index 13.64 10/01/2012 8:57 AM INSTRUCTIONAL TECHNOLOGY TEACHER Body Mass Index Percentile 6.17% 10/01/2012 8:5 7 AM INSTRUCTIONAL TECHNOLOGY TEACHER Growth Chart: [facility] [...] Progress Notes * Breana Olivas MD - 10/01/2012 9:14 AM CST Anaid Dimas and her mother were seen in our Pediatric Endocrinology offices on 10/01/12. She is a 6 y.o. 11 m.o. girl who is followed for early type 1 diabetes diagnosed in 08/04. Interval History: healthy; received flu shot at last visit. Past Medical History: Reviewed with family. Diabetes Therapies: Humalog 1/2 Unit : 30 grams at B&D and 1/2:40 at L, typically 0-0.5 Units at B&Land 1 Unit at dinner; no Lantus. Shots in arms and hips by mother, GPs and nurse. Total daily insulin: 0.05-0.09 U/kg/d. Other Medications: None Meal Plan: Anaid Dimas/her parent(s) report the child is on a carb- counting meal plan. Sports/Physical Exercise: PE 2 times weekly, recess, general play. Blood Glucose Monitoring: Anaid Dimas's glucose monitoring is done 4+ x day using an [employer] Drake with a target range of 80-180; logbook available for examination: Breakfast Lunch Dinner Bedtime Overnight Other Comments [phone] Hypoglycemia: Frequency/Treatment: 1-3 times per week. Anaid does not yet recognize her hypoglycemia; when her blood sugar is <70-72 she complains of hunger and has clammy hands. Treatment is adequate and injectable glucagon is available. Urine Ketone Monitoring: Yes, when glucose >250. Review of Systems: General: hyperactive, good appetite/picky Skin: negative Eyes: glasses ENT: negative Respiratory: negative GI: normal bowel habits : no nocturia Neurologic: negative Psychiatric: negative Endocrine: early pubic hair All other systems reviewed and were negative. Family History: Unchanged since last visit. Social History: Anaid Lives with: Mother only School: Elementary, 2nd grade. New school in early August. Physical Examination: BP 100/60 Ht 1.25 m (4' 1.21 ) Wt 21.319 kg (47 lb) BMI 13.64 kg/m2 12.1%ile based on CDC 2-20 Years kkwnpj-icf-iwl data. 33.81%ile based on CDC 2- 20 Years xoloikl-yqu-xor data. Body mass index is 13.64 kg/(m^2). 6.17%ile based on CDC 2-20 Years BMI-for-age data. General: Well-appearing, thin, hyperactive girl. Skin/Hair/Nails: Warm and dry. No insulin lipohypertrophy. No observable rashes. Eyes: Sclerae clear, PERRLA, EOMs intact; no abnormal fundoscopic findings. Dentition: Good hygiene. 8 permanent teeth. Neck: Supple. Uncooperative due to ticklishness; thyroid not grossly enlarged. Chest: Symmetric. Lungs clear to auscultation, unlabored breathing. CV system unremarkable with regular heart rate and rhythm, normal S1/S2, no murmurs, rubs, or gallops. Abdomen: Soft, non-tender, without organ enlargement or masses. Pubertal maturation: Miquel 1 except for early pubic hair. Extremities: No cyanosis or edema. Neurologic system: Non-focal. DTRs 2+ and equal. Normal sensation for light touch and vibration. ID Tag Status: Bushra anaya Laboratory Data: None today Assessment: Early type 1 diabetes under good control. No complications. Management Plan: No changes in dosing. Previous influenza vaccination. Given ID jewelry brochures. Complete [employer] paperwork for mother. Return in 2 months as scheduled. RUCTIONAL TECHNOLOGY TEACHER documented in this encounter Miscellaneous Notes * Miscellaneous Scans - Document, Scanned - 11/12/2012 11:18 AM CST RUCTIONAL TECHNOLOGY TEACHER documented in this encounter Plan of Treatment Not on file documented as of this encounter Visit Diagnoses Not on filedocumented in this encounter Care Teams Hydrotherapist Relationship Specialty Start Date End Date Alvarez Prabhakar MD [address] [place] [phone] PCP - General 12/12/11 documented as of this encounter
--- OUTSIDE RECORDS SUMMARY | 2024-11-22 05:21 | XMS_ITS | Encounter Summary ---
Author Organization [facility] Address [address] [place] [address] Care Team Providers Care In School Suspension Coordinator Name Role Phone Alvarez Prabhakar MD Primary Care Provider Encounter Details Date Type Department Care Team (Latest Contact Info) Description 12/24/2011 10:09 AM HEALTH EDITOR - 12/24/2011 10:44 AM [facility] Hospital Encounter [facility] [address] [place] [address] Alvarez Prabhakar MD OIG SANCTIONED!! DO NOT USE!! Medical Outpatient Discharge Disposition: Home or Self Care Social History Tobacco Use Types Packs/Day Years Used Date Smoking Tobacco: Never Assessed Sex and Gender Information Value Date Recorded Sex Assigned at Not on file Gender Identity Not on file Sexual Orientation Not on file documented as of this encounter Plan of Treatment Not on file documented as of this encounter Visit Diagnoses Diagnosis Other convulsions (HCC) Other convulsions documented in this encounter Care Teams In School Suspension Coordinator Relationship Specialty Start Date End Date Alvarez Prabhakar MD [address] [place] [address] PCP - General 12/12/11 documented as of this encounter
--- OUTSIDE RECORDS SUMMARY | 2024-11-22 05:21 | XMS_ITS | Encounter Summary ---
Author Organization [facility] Address [address] [place] [address] Care Team Providers Care Welder Tech Name Role Phone Alvarez Prabhakar MD Primary Care Provider [phone] Reason for Visit * Reason Onset Date Comments Blood Sugar Problem 02/07/2015 Encounter Details Date Type Department Care Team (Late st Contact Info) Description 02/07/2015 Telephone [facility] Pediatrics - Diabetes [id number] [place] [address] Breana Olivas MD Blood Sugar Problem Social History Tobacco Use Types Packs/Day Years Used Date Smoking Tobacco: Never Assessed Sex and Gender Information Value Date Recorded Sex Assigned at Not on file Gender Identity Not on file Sexual Orientation Not on file documented as of this encounter Miscellaneous Notes * Telephone Encounter - Nesha Celaya APRN-CNP - 02/07/2015 11:58 AM CDT I spoke with school nurse who reports Bg 383 at 1132. Bg is now 457 and trace ketones. I recommended water for now and to give lunch injection at 1230, before lunch (rather than after lunch). Call immediately for moderate-large ketones or vomiting. documented in this encounter Plan of Treatment Not on file documented as of this encounter Visit Diagnoses Not on filedocumented in this encounter Care Teams Welder Tech Relationship Specialty Start Date End Date Alvarez Prabhakar MD [address] [place] [address] PCP - General 12/12/11 documented as of this encounter
--- OUTSIDE RECORDS SUMMARY | 2024-11-22 05:21 | XMS_ITS | Encounter Summary ---
Author Organization [facility] Address [address] [address] Care Team Providers Care Supervisor Adult Education Name Role Phone Alvarez Prabhakar MD Primary Care Provider Encounter Details Date Type Department Care Team (Late st Contact Info) Description 08/15/2013 Orders Only [facility] Pediatrics - Endocrinology [address] [place] [address] Leeanne Croft, CYANIDE FURNACE OPERATOR-INSTRUCTIONAL TECHNOLOGIST Retired Type I (juvenile type) diabetes mellitus without mention of complication, not stated as uncontrolled (HCC) Social History Tobacco Use Types Packs/Day [...] - POCT (IP) ALEXANDRA (10/27/2013 1:42 PM JAVA SQL DEVELOPER) Hemoglobin A1c POCT 7.1(A) 3.4 - 6.1 % [facility] POCT TESTING QC Verified yes Yes [facility] PO CT TESTING Blood specimen (specimen) BLOOD SPECIMEN / Unknown 10/27/2013 1:42 PM JAVA SQL DEVELOPER Leeanne Ness Croft CYANIDE FURNACE OPERATOR-INSTRUCTIONAL TECHNOLOGIST LAB - POINT OF C ARE ORDERABLES [facility] POCT TESTING [address] [facility] [place] [address] documented in this encounter Visit Diagnoses Diagnosis Type I (juvenile type) diabetes mellitus without mention of complication, not stated as uncontrolled (HCC)- Primary Type I (juvenile type) diabetes mellitus without mention of complication, not stated as uncontrolled documented in this encounter Care Teams Supervisor Adult Education Relationship Specialty Start Date End Date Alvarez Prabhakar MD [address] [place] [phone] PCP - General 12/12/11 documented as of this encounter
--- OUTSIDE RECORDS SUMMARY | 2024-11-22 05:21 | XMS_ITS | Encounter Summary ---
Author Organization [facility] Address [address] [place] [address] Care Team Providers Care Configuration Specialist Name Role Phone Alvarez Prabhakar MD Primary Care Provider [phone] Reason for Visit * Reason Onset Date Comments MEDICATION REFILL 08/23/2013 Encounter Details Date Type Department Care Team (Late st Contact Info) Description 08/23/2013 Refill [facility] Pediatrics - Diabetes [facility] [address] [place] [address] Leeanne Croft, DEVELOPMENT TECHNICAL LEAD-DOOR TO DOOR SALESMAN Retired MEDICATION REFILL Social History Tobacco Use [...] uncontrolled documented in this encounter Care Teams Configuration Specialist Relationship Specialty Start Date End Date Alvarez Prabhakar MD [address] [place] [id number] PCP - General 12/12/11 documented as of this encounter
--- OUTSIDE RECORDS SUMMARY | 2024-11-22 05:21 | XMS_ITS | Encounter Summary ---
Author Organization [facility] Address [address] [facility] [place] [address] Care Team Providers Care Parts Washer Name Role Phone Alvarez Prabhakar MD Primary Care Provider [phone] Encounter Details Date Type Department Care Team (Late st Contact Info) Description 12/07/2012 Orders Only [facility] Pediatrics - Endocrinology [address] [place] [address] Breana Olivas MD Type I (juvenile type) diabetes mellitus without [...] (ABNORMAL) HEMOGLOBIN A1C - POCT (IP) ALEXANDRA (02/03/2013 2:12 PM CDT) Hemoglobin A1c POCT 7.3(A) 3.4 - 6.1 % [facility] POCT TESTING QC Verified yes Yes [facility] PO CT TESTING Blood specimen (specimen) BLOOD SPECIMEN / Unknown 02/03/2013 2:12 PM CDT Breana Olivas MD LAB - POINT OF CARE ORDERABLES [facility] POCT TESTING [address] [facility] [place] [address] documented in this encounter Visit Diagnoses Diagnosis Type I (juvenile type) diabetes mellitus without mention of complication, not stated as uncontrolled (HCC)- Primary Type I (juvenile type) diabetes mellitus without mention of complication, not stated as uncontrolled documented in this encounter Care Teams Parts Washer Relationship Specialty Start Date End Date Alvarez Prabhakar MD [address] [place] [phone] PCP - General 12/12/11 documented as of this encounter
--- OUTSIDE RECORDS SUMMARY | 2024-11-22 05:21 | XMS_ITS | Encounter Summary ---
Author Organization [facility] Address [address] [place] [address] Care Team Providers Care Change Lead Name Role Phone Alvarez Prabhakar MD Primary Care Provider [phone] Reason for Visit * Reason Onset Date Comments Blood Sugar Problem 08/23/2012 Encounter Details Date Type Department Care Team (Late st Contact Info) Description 08/23/2012 Telephone [facility] Pediatrics - Diabetes Mgmt [facility] [place] [address] Breana Olivas MD Blood Sugar Problem Social History Tobacco Use Types Packs/Day Years Used Date Smoking Tobacco: Never Assessed Sex and Gender Information Value Date Recorded Sex Assigned at Not on file Gender Identity Not on file Sexual Orientation Not on file documented as of this encounter Miscellaneous Notes * Telephone Encounter - Nesha Celaya RN,CPNP - 08/23/2012 1:06 PM CDT I spoke with mother and reviewed Bg's. No change. I asked her to call again tomorrow. I will fax updated school letter as she requested to [phone] documented in this encounter Plan of Treatment Not on file documented as of this encounter Visit Diagnoses Not on filedocumented in this encounter Care Teams Change Lead Relationship Specialty Start Date End Date Alvarez Prabhakar MD [address] [place] [phone] PCP - General 12/12/11 documented as of this encounter
--- OUTSIDE RECORDS SUMMARY | 2024-11-22 05:21 | XMS_ITS | Encounter Summary ---
Author Organization [facility] Address [address] [place] [address] Care Team Providers Care Glove Turner And Former Automatic Name Role Phone Alvarez Prabhakar MD Primary Care Provider [phone] Encounter Details Date Type Department Care Team (Late st Contact Info) Description 05/12/2013 Orders Only [facility] Pediatrics - Diabetes [facility] [address] [place] [address] Leeanne Croft, PCTS-TAPE DUPLICATOR Retired (HCC) Social History Tobacco Use Types Packs/Day Years Used Date Smoking Tobacco: Never Assessed Sex and Gender Information Value Date Recorded Sex Assigned at Not on file Gender Identity Not on file Sexual Orientation Not on file documented as of this encounter Plan of Treatment Not on file documented as of this encounter Visit Diagnoses Diagnosis Type I (juvenile type) diabetes mellitus without mention of complication, not stated as uncontrolled (HCC)- Primary Type I (juvenile type) diabetes mellitus without mention of complication, not stated as uncontrolled documented in this encounter Care Teams Glove Turner And Former Automatic Relationship Specialty Start Date End Date Alvarez Prabhakar MD [address] [place] [address] PCP - General 12/12/11 documented as of this encounter
--- OUTSIDE RECORDS SUMMARY | 2024-11-22 05:22 | XMS_ITS | Encounter Summary ---
Author Organization [facility] Address [address] [place] [address] Care Team Providers Care Office Clerk Name Role Phone Alvarez Prabhakar MD Primary Care Provider [phone] Reason for Visit * Reason Onset Date Comments Hyperglycemia 11/14/2024 Encounter Details Date Type Department Care Team (Late st Contact Info) Description 11/14/[address] [facility] Medical Group Diabetes and Endocrinology [address] [place] [phone] Devika Moise, SAADIA [id number] [address] Hyperglycemia Social History Tobacco Use Types Packs/Day Years Used Date Smoking Tobacco: Never Smokeless Tobacco: Never PHQ-2 Answer Date Recorded PHQ-2 Total Score (If total score is 3 or more points, staff should administer the PHQ-9) 0 05/25/2024 Comments Unknown Sex and Gender Information Value Date Recorded Sex Assigned at Not on file Legal Sex Female 6:57 AM LEASING CONSULTANT Gender Identity Not on file Sexual Orientation Not on file documented as of this encounter Miscellaneous Notes * Telephone Encounter - Devika Moise NP - 11/14/2024 1:56 PM LEASING CONSULTANT Noted. Reviewed pump download. Pump started 11/09/24. No waveform info at all for Thursday11/11/24 but does have carb boluses entered. Drank sweet drink. MOP called from [facility]. Has f/u scheduled with me 12/21/24. ING CONSULTANT * Telephone Encounter - Diana Stark MA - 11/14/2024 1:53 PM CST Omnipod download saved to chart. Dexcom is not shared. Please advise ING CONSULTANT * Telephone Encounter - Montrell Whatley - 11/14/2024 1:41 PM CST Incoming Call Caller/Ph#: Patient & Mom//[phone] Reason for call: Patient and Mom called in to advise Dr. Jack Fuentes and HOOK PULLER Devika Moise that her blood sugars have been extremely high. Mom stated after the patient had a strawberry bolba tea iswhen her blood sugars shot up. Stated that she has been taking the proper dosage of insulin. Patient is now at [facility] for the high blood sugars, but wanted to let the office know ING CONSULTANT documented in this encounter Plan of Treatment Not on file documented as of this encounter Visit Diagnoses Not on filedocumented in this encounter Care Teams Office Clerk Relationship Specialty Start Date End Date Alvarez Prabhakar MD [address] [place] [address] PCP - General Pediatrics 02/04/24 documented as of this encounter
--- OUTSIDE RECORDS SUMMARY | 2024-11-22 05:22 | XMS_ITS | Encounter Summary ---
Author Organization [facility] Healthcare Address [address] [place] [address] Care Team Providers Care Mill Crane Operator Name Role Phone Alvarez Prabhakar MD Primary Care Provider [phone] Encounter Details Date Type Department Care Team (Late st Contact Info) Description 09/05/2024 2:30 PM CDT Lab [facility] Medical Group Outpatient Lab at [address] [phone] Social History Tobacco Use Types Packs/Day Years Used Date Smoking Tobacco: Never Smokeless Tobacco: Never PHQ-2 Answer Date Recorded PHQ-2 Total Score (If total score is 3 or more points, staff should administer the PHQ-9) 0 05/25/2024 Comments Unknown Sex and Gender Information Value Date Recorded Sex Assigned at Not on file Legal Sex Female 6:57 AM ACID WASH OPERATOR Gender Identity Not on file Sexual Orientation Not on file documented as of this encounter Plan of Treatment Not on file documented as of this encounter Visit Diagnoses Not on filedocumented in this encounter Care Teams Mill Crane Operator Relationship Specialty Start Date End Date Alvarez Prabhakar MD [address] [address] PCP - General Pediatrics 02/04/24 documented as of this encounter
--- OUTSIDE RECORDS SUMMARY | 2024-11-22 05:22 | XMS_ITS | Referral Summary ---
Author Organization [facility] Physician [facility] Building [address] [place] [id number] Care Team Providers Care Security Flex Officer Name Role Phone Alvarez Prabhakar MD Primary Care Provider Encounters Date Type Department Care Team Description 11/17/2024 Telephone [facility] [address] [phone] Jack Fuentes MD 11/14/[address] [facility] Medical Group Diabetes and Endocrinology [address] [place] [phone] Devika Moise NP Hyperglycemia 11/09/[address] [facility] Medical [facility] Diabetes and Endocrinology [address] [place] [phone] Devika Moise NP Type 1 diabetes mellitus with hyperglycemia (HCC) (Primary Dx) 11/09/2024 10:30 AM COIL STRAPPER Clinical Support [facility] Medical Group Diabetes and Endocrinology [address] [place] [phone] 11/07/2024 Telephone [facility] [address] [phone] Devika Moise NP 10/04/2024 10:30 AM COIL STRAPPER Clinical Support [facility] Medical Group Diabetes and Endocrinology [address] [place] [phone] 09/06/[address] [facility] Medical Group Diabetes and Endocrinology [address] [place] [phone] Devika Moise NP Prior Auth (Omnipod 5) 09/05/2024 2:21 PM CDT - 09/05/2024 11:59 PM CDT Hospital Encounter [address] [address] Type 1 diabetes mellitus with hyperglycemia (HCC) Discharge Disposition: Discharge to home or self care 09/05/2024 2:[address] [facility] Medical [facility] Outpatient Lab at [address] [phone] 09/05/2024 1:30 PM CDT Office Visit [facility] Diabetes and Endocrinology [address] [place] [phone] Devika Moise NP Type 1 diabetes mellitus with hyperglycemia (HCC) (Primary Dx) from Last 3 Months Allergies No known active allergies Medications lancing device with lancets kit Use for blood glucose monitoring 4-6 times/day. 05/22/20 23 Active oxyBUTYnin XL (DITROPAN-XL) 10 mg 24 hr tablet Take 1 tablet (10 mg total) by mouth nightly 06/20/20 21 Active acetone, urine, test strip USE NEEDED (USE WHEN BLOOD SUGAR IS GREATER THAN 250 OR WHEN ILL) 08/03/20 23 Active lancets 33 gauge misc USE 1 LANCET DIRECTED 08/03/20 23 Active lancets misc USE FOR BLOOD GLUCOSE MONITORING 4-6 TIMES DAILY 05/22/20 23 Active insulin lispro (HumaLOG, ADMELOG) 100 unit/mL pen for injection Sliding scale Max 15 units 11/06/20 23 Active blood-glucose transmitter (Dexcom G6 Transmitter) device CHANGE EVERY 90 DAYS. 12/04/19 24 Active Dexcom G6 Transmitter device Place on the skin 06/29/20 23 Active blood-glucose meter,continuous (Dexcom G6 [employer]) misc as directed 05/18/20 23 Active insulin syringe-needle U-100 0.5 mL 30 gauge x 5/16 syringe 1 Syringe by Not Applicable route as directed 03/11/20 Active acetone, urine, test strip by Not Applicable route as needed 08/03/20 Active acetone, urine, test strip Use as directed for urine ketone checks if blood sugar above 250 or if ill. Dispense one bottle for school and one for home. 04/12/20 Active glucagon 1 mg kit Inject 1 mg into muscle as directed for severe low blood sugar reaction. 07/11/20 Active insulin admin supplies insulin pen Use for insulin delivery. 10/20/20 Active insulin syringe-needle U-100 0.3 mL 31 gauge x 5/16 syringe USE FOR INJECTION DAILY 04/17/20 Active insulin pump cart,auto,BT,G6/ 7 (Omnipod 5 G6-G7 Pods, Gen 5,) cartridgeIndicat ions:Type 1 diabetes mellitus with hyperglycemia (HCC) Change pod every 3 days 10 each 3 09/05/20 24 Active insulin trimmer operator cart,aut,G6/7,cn tr (Omnipod 5 G6-G7 Intro Kt,Gen5,) cartridgeIndicat ions:Type 1 diabetes mellitus with hyperglycemia (HCC) Continuous glucose delivery system 1 each 09/05/20 24 Active glucagon (Baqsimi) 3 mg/actuation spray,non-aeroso lIndications:Typ e 1 diabetes mellitus with hyperglycemia (HCC) Administer 1 spray into one nostril as needed (low blood sugars) 2 each 3 09/05/20 24 2024 Active OneTouch Verio test strips stripIndications :Type 1 diabetes mellitus with hyperglycemia (HCC) Check blood sugar 4 times daily 400 strip 3 09/05/20 Active insulin glargine 100 unit/mL (3 mL) pen for injectionIndicat ions:Type 1 diabetes mellitus with hyperglycemia (HCC) Inject 18 Units under the skin nightly 15 mL 3 11/09/20 24 2024 Active blood-glucose sensor (Dexcom G6 Sensor) device CHANGE EVERY 10 DAYS 3 each 11 11/14/20 24 Active Dexcom G6 Sensor deviceIndication s:Type 1 diabetes mellitus with hyperglycemia (HCC) CHANGE EVERY 10 DAYS 3 each 5 11/14/20 24 Active insulin glargine 100 unit/mL (3 mL) pen for injection Inject 11 Units under the skin nightly 08/19/20 23 2023 Discontinued Dexcom G6 Sensor device USE 1 SENSOR UNDER THE SKIN EVERY 10 DAYS 06/25/20 23 2023 Discontinued LANTUS 100 unit/mL (3 mL) pen for injectionIndicat ions:Type 1 diabetes mellitus with hyperglycemia (HCC) INJECT 18 UNITS UNDER THE SKIN ONCE NIGHTLY 15 mL 5 10/24/20 24 2023 Discontinued(A lternate therapy) Active Problems Problem Noted Date Diagnosed Date Type 1 diabetes mellitus with hyperglycemia 01/2024 Assessment & Plan (09/05/2024 2:16 PM CDT): Chronic problem. A1c remains uncontrolled but stable at 8.7%. discussed pumps at length. Omnipod 5 sent in. Aware that trainers will call her to set up appt. Will then be seen by us 7-10 days after starting pump. Contact info for Omnipod trainers given on AVS. Current medications: Lantus 11 units at bedtime Humalog 1: 10 (3-4 to 12 units), CF 50 For sugar of 150, add 1 units For sugar over 200, add 2 units For sugar over 250, add 3 units For sugar over 300, add 4 units For sugar over 350, add 5 units For sugar over 400, add 6 units Will update labs today. Does not mychart. Verified phone #/address to contact re: results. DM eye exam 2022 August Burnett or [place]; letter sent to get copy of report. Discussed with Anaid Dimas: Stressed need to increase activity. Strive for regular exercise (30min most days) and diet (get at least 4-5 servings of fruit and veggies daily, avoid processed foods, increase lean protein intake and decrease carb portions as well as fruit juices, regular soda & desserts). Watch carbs and simple sugars. Check the blood sugar: Dexcom G6. Check the feet daily for skin breakdown and infection. Assessment & Plan (05/25/2024 1:54 PM CDT): Goal of treatment with glucoses in the 110 to 150 range was discussed with a hemoglobin A1c target between 6.5 to 7. Importance of blood glucose monitoring was discussed We provided the patient with a new Dexcom G7 sensor and a reader, since she does not have a phone right now Will continue with Lantus insulin as basal, 11 units at bedtime Humalog as prandial insulin trying to calculated 1 unit per 10 g of carbs with a correction factor of 50 This was explained in detail and it is in the printout of AOV summary I strongly suggested the patient is to start using [employer] to communicate with us. I think she would be a good candidate for an insulin pump and she seems to be interested I contacted the [employer] rep, Shirley Carrillo . She will contact the patient if she is interested will start process with the insurance company for approval Social History Tobacco Use Types Packs/Day Years Used Date Smoking Tobacco: Never Smokeless Tobacco: Never Tobacco Cessation:Counseling Given: Not Answered PHQ-2 Answer Date Recorded PHQ-2 Total Score (If total score is 3 or more points, staff should administer the PHQ-9) 0 05/25/2024 Comments Unknown Sex and Gender Information Value Date Recorded Sex Assigned at Not on file Legal Sex Female 6:57 AM COIL STRAPPER Gender Identity Not on file Sexual Orientation Not on file Last Filed Vital Signs Vital Sign Reading Time Taken Comments Blood Pressure 100/76 09/05/2024 1:27 PM CDT Pulse 82 09/05/2024 1:27 PM CDT Temperature - - Respiratory Rate 14 09/05/2024 1:27 PM CDT Oxygen Saturation - - Inhaled Oxygen Concentration - - Weight 53.5 kg (118 lb) 09/05/2024 1:27 PM CDT Height 157.5 cm (5' 2.01 ) 09/05/2024 1:27 PM CD T Body Mass Index 21.58 09/05/2024 1:27 PM CDT Plan of Treatment Not on file Procedures Procedure Name Priority Date/Time Associated Diagnosis Comments EGFR Routine 09/05/2024 2:21 PM CDT Type 1 diabetes mellitus with hyperglycemia (HCC) LIPID PANEL Routine 09/05/2024 2:21 PM CDT Type 1 diabetes mellitus with hyperglycemia (HCC) COMPREHENSIVE METABOLIC PANEL Routine 09/05/2024 2:21 PM CDT Type 1 diabetes mellitus with hyperglycemia (HCC) ALBUMIN CREATININE RATIO, URINE Routine 09/05/2024 2:21 PM CDT Type 1 diabetes mellitus with hyperglycemia (HCC) POCT GLUCOSE Routine 09/05/2024 1:30 PM CDT Type 1 diabetes mellitus with hyperglycemia (HCC) POCT HEMOGLOBIN A1C Routine 09/05/2024 1 :30 PM CDT Type 1 diabetes mellitus with hyperglycemia (HCC) from Last 3 Months Results * eGFR (09/05/2024 2:21 PM CDT) [facility] eGFR >90 >=60 mL/min/1. 73 m2 Comment: Interpretive Data Reference Interval Normal ?>/= 90 mL/min/1.73m2 Mildly decreased* ? 60 - 89 mL/min/1.73m2 Mildly to moderately decreased ?45 - 59 mL/min/1.73m2 Moderately to severely decreased ??30 - 44 mL/min/1.73m2 Severely decreased ?15 - 29 mL/min/1.73m2 Kidney Failure ?< 15 ??mL/min/1.73m2 *Relative to young adult level Estimated glomerular filtration rate is determined by the 2020 CKD-EPI equation recommended by the National Kidney Foundation (A Unifying Approach to GFR Estimation: Recommendations of the NKF-ASK Task Force on Reassessing the Inclusion of Race in Diagnosing Kidney Disease, JASN 2020). The CKD-EPI equation should not be used for patients with unstable renal function and has not been validated in children and those over 70. Current interpretive data was last reviewed 2021. Blood 09/05/2024 2:21 PM CDT 09/05/2024 8:46 PM CDT us Devika Moise CLERICAL COORDINATOR LAB BLOOD ORDERABLES Mariela l Result [facility] [id number] [employer] [place] [address] * Albumin Creatinine Ratio, Urine (09/05/2024 2:21 PM CDT) Albumin Ur 21.1 mg/L Comment: Interpretive Data No reference range established. Current interpretive data was last revised 2019. Creatinine Ur 190.3 mg/dL [facility] Comment: Interpretive Data No reference range established. Current interpretive data was last revised 2019. Albumin Creatinine Ratio, Ur 11 1 - 29 mg/g [facility] Urine 09/05/2024 2:21 PM CDT 09/05/2024 8:31 PM CDT us Devika Moise CLERICAL COORDINATOR LAB URINE ORDERABLES Mariela l Result Performing Organization Address [facility] Phone Number [facility] [id number] Department of [employer] [place] [address] * Lipid panel (09/05/2024 2:21 PM CDT) Pathologist [facility] Cholesterol 163 30 - 199 mg/dL Comment: Interpretive Data Ages < or = 19 years ??Acceptable: ? <170 mg/dL ??Borderline high: ??170-199 mg/dL ??High: ? >or= 200 mg/dL Ages > or = 20 years ??Desirable: ?<200 mg/dL ??Borderline high: ??200-239 mg/dL ??High: ? >or= 240 mg/dL Literature References: 1. Expert Panel on Integrated Guidelines for Cardiovascular Health and Risk Reduction in Children and Adolescents. Pediatrics 2011;128:S213 2. NCEP Expert Panel. Circulation 2004;110:227 Current Interpretive Data was last revised on 2018. Triglycerides 39 <=129 mg/dL [facility] Comment: Interpretive Data Ages < or = 9 years ??Acceptable: ? <75 mg/dL ??Borderline high: ??75-99 mg/dL ??High: ? >or= 100 mg/dL Ages 10 to 20 years ??Acceptable: ? <90 mg/dL ??Borderline high: ??90-129 mg/dL ??High: ? >or= 130 mg/dL Ages > or = 20 years ??Desirable: ?<150 mg/dL ??Borderline high: ??150-199 mg/dL ??High: ? 200-499 mg/dL ?Very high: ?? >or= 499 mg/dL Literature References: 1. Expert Panel on Integrated Guidelines for Cardiovascular Health and Risk Reduction in Children and Adolescents. Pediatrics 2011;128:S213 2. NCEP Expert Panel. Circulation 2004;110:227 Current Interpretive Data was last revised on 2018. HDL 76 >=45 mg/dL [facility] Comment: Interpretive Data Ages < or = 19 years ??Acceptable: ? >45 mg/dL ??Borderline low: ?? 40-45 mg/dL ??Low: ? <40 mg/dL Ages > or = 20 years ??Desirable: ?>or= 60 mg/dL ??Low: ? <40 mg/dL Literature References: 1. Expert Panel on Integrated Guidelines for Cardiovascular Health and Risk Reduction in Children and Adolescents. Pediatrics 2011;128:S213 2. NCEP Expert Panel. Circulation 2004;110:227 Current Interpretive Data was last revised on 2018. LDL, calculated 78 <=129 mg/dL [facility] Comment: Interpretive Data Ages < or = 19 years ??Acceptable: ? <110 mg/dL ??Borderline high: ??110-129 mg/dL ??High: ?>or= 130 mg/dL Ages > or = 20 years ??Optimal: ? <100 mg/dL ??Near optimal: ?100-129 mg/dL ??Borderline high: ?? 130-159 mg/dL ??High: ?>160 mg/dL Calculated using the Americo LDL-C estimating equation. This equation was implemented on 2024. Prior to this date LDL-C was estimated using the Friedewald equation. Literature References: 1. Expert Panel on Integrated Guidelines for Cardiovascular Health and Risk Reduction in Children and Adolescents. Pediatrics 2011;128:S213 2. NCEP Expert Panel. Circulation 2004;110:227 3. Americo Arzola et al. ATIF Cardiol. 2019March 23;5(5):540-548. doi: 10.1001/jamacardio.2020.0013 Current Interpretive Data was last revised on 2024. Non-HDL Cholesterol 87 mg/dL [facility] Comment: Interpretive Data Ages < or = 19 years ??Acceptable: ?<120 mg/dL ??Borderline high: ??120-144 mg/dL ??High: ?>145 mg/dL Ages > or = 20 years ??When triglycerides are >200 mg/dL, Non-HDL cholesterol is a secondary target of ? therapy with treatment goals that are 30 mg/dL greater than the LDL cholesterol target. ? Literature References: 1. Expert Panel on Integrated Guidelines for Cardiovascular Health and Risk Reduction in Children and Adolescents. Pediatrics 2011;128:S213 2. NCEP Expert Panel. Circulation 2004;110:227 Current Interpretive Data was last revised on 2018. Chol/HDL ratio 2 [facility] Blood 09/05/2024 2:21 PM CDT 09/05/2024 8:32 PM CDT us Devika Moise NP LAB BLOOD ORDERABLES Mariela avilez Result [facility] [id number] Department [place] [address] * (ABNORMAL) Comprehensive metabolic panel (09/05/2024 2:21 PM CDT) Sodium 135 135 - 145 mmol/L Potassium, pl 4.3 3.3 - 4.9 mmol/L [facility] Chloride 100 97 - 110 mmol/L [facility] CO2 25 22 - 32 mmol/L [facility] Anion gap 10 2 - 15 mmol/L [facility] BUN 16 6 - 25 mg/dL [facility] Creatinine 0.57(L) 0.60 - 1.10 mg/dL [facility] Glucose 196 70 - 199 mg/dL [facility] Comment: Interpretive Data Fasting glucose >/= 126 mg/dl is diagnostic for diabetes. ?? Fasting is defined as no caloric intake for at least 8 hours. Fasting glucose between 100 mg/dl to 125 mg/dl is diagnostic of prediabetes. In a patient with classic symptoms of hyperglycemia or hyperglycemic crisis, a random glucose >/= 200 mg/dl is diagnostic for diabetes. In the absence of unequivocal hyperglycemia, results should be confirmed by repeat testing. The classification and Diagnosis of Diabetes Diabetes Care 202; 46: S19-S40. Current interpretive data was last revised 2022. Calcium 9.4 8.5 - 10.3 mg/dL [facility] Bilirubin, total 0.6 0.1 - 1.2 mg/dL [facility] Protein, pl 7.3 6.5 - 8.5 g/dL [facility] Albumin 4.4 3.5 - 5.0 g/dL [facility] Alk phos 82 70 - 260 Units/L [facility] ALT 6(L) 7 - 45 Units/L [facility] AST 22 10 - 45 Units/L [facility] Blood 09/05/2024 2:21 PM CDT 09/05/2024 8:32 PM CDT us Devika Moise NP LAB BLOOD ORDERABLES Mariela l Result [facility] [id number] Department [place] [address] * (ABNORMAL) POCT hemoglobin A1c (09/05/2024 1:30 PM CDT) Hemoglobin A1C, POC 8.7 4.0 - 5.6 % Blood 09/05/2024 1:30 PM CDT Devika Moise CLERICAL COORDINATOR POINT OF CARE TEST ORDERA BLES Final Result * (ABNORMAL) POCT glucose (09/05/2024 1:30 PM CDT) Glucose Blood, POC 187 mg/dL Blood 09/05/2024 1:30 PM CDT us Devikadayday Moise CLERICAL COORDINATOR POINT OF CARE TEST ORDERA BLES Final Result from Last 3 Months Insurance [facility] Care Teams Security Flex Officer Relationship Specialty Start Date End Date Alvarez Prabhakar MD [address] [address] PCP - General Pediatrics 02/04/24
--- OUTSIDE RECORDS SUMMARY | 2024-11-22 05:22 | XMS_ITS | Encounter Summary ---
Author Organization [facility] Healthcare Address [address] [place] [address] Care Team Providers Care Athletic Turf Worker Name Role Phone Alvarez Prabhakar MD Primary Care Provider [phone] Reason for Visit * Reason Comments Diabetes Type 1 Encounter Details Date Type Department Care Team (Latest Contact Info) Description 09/05/2024 1:30 PM CDT Office Visit [facility] Diabetes and Endocrinology [address] [place] [phone] Devika Moise, RUBBER TESTER [id number] [address] Type 1 diabetes mellitus with hyperglycemia (HCC) (Primary Dx) Social History Tobacco Use Types Packs/Day Years Used Date Smoking Tobacco: Never Smokeless Tobacco: Never Tobacco Cessation:Counseling Given: Not Answered PHQ-2 Answer Date Recorded PHQ-2 Total Score (If total score is 3 or more points, staff should administer the PHQ-9) 0 05/25/2024 Comments Unknown Sex and Gender Information Value Date Recorded Sex Assigned at Not on file Legal Sex Female 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 I'll send a results letter with explanation or call if needed once I receive them Current medications: Lantus 11 units at bedtime Humalog 1: 10 (3-4 to 12 units), CF 50 For sugar of 150, add 1 units For sugar over 200, add 2 units For sugar over 250, add 3 units For sugar over 300, add 4 units For sugar over 350, add 5 units For sugar over 400, add 6 units Someone from [employer] will call you to get the Omnipod training set up. Open box & start onboarding process. Contact information for [employer] representatives: Sheree Varghese (for ordering/ cost questions) Phone number [phone] Email: [email or web address] Poala Cazares (Omnipod show dog trainer) Email: [email or web address] documented in this encounter Ordered Prescriptions Prescription Sig Dispense Quantity Refills Last Filled Start Date End Date OneTouch Verio test strips stripIndications:Ty pe 1 diabetes mellitus with hyperglycemia (HCC) Check blood sugar 4 times daily 400 strip 3 09/05/2024 glucagon (Baqsimi) 3 mg/actuation spray,non-aerosolIn dications:Type 1 diabetes mellitus with hyperglycemia (HCC) Administer 1 spray into one nostril as needed (low blood sugars) 2 each 3 09/05/2024 insulin network development coordinator cart,aut,G6/7,cntr (Omnipod 5 G6-G7 Intro Kt,Gen5,) cartridgeIndication s:Type 1 diabetes mellitus with hyperglycemia (HCC) Continuous glucose delivery system 1 each 09/05/2024 insulin pump cart,auto,BT,G6/7 (Omnipod 5 G6-G7 Pods, Gen 5,) cartridgeIndication s:Type 1 diabetes mellitus with hyperglycemia (HCC) Change pod every 3 days 10 each 3 09/05/2024 documented in this encounter Progress Notes * Devika Moise, RUBBER TESTER - 09/05/2024 1:30 PM CDT Images from the original note were not included. [facility] Diabetes Follow Up Visit Subjective/Objective Patient ID: Anaid Dimas is a 18 y.o. female who comes in today to our Endocrinology clinic to follow up for DM management. Chief Complaint Diabetes Type 1 HPI Diabetes complications and/or comorbidity include: T1DM dx'd 5 y/o Current medications: Lantus 11 units at bedtime Humalog 1: 10 (3-4 to 12 units), CF 50 For sugar of 150, add 1 units For sugar over 200, add 2 units For sugar over 250, add 3 units For sugar over 300, add 4 units For sugar over 350, add 5 units For sugar over 400, add 6 units Typically 5-10 units/meal. Dietary habits: 2-3 meals/day. Trying to watch diet. Does not miss insulin doses. Drinks zero sugar/diet drinks. Drinking shakes frequently. Exercise routine: no exercise. 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 Not currently in school. Home CBG monitoring results: Dexcom G6. No hypoglycemia. Just put on 1st sensor/transmitter today. Was checking BG 4-5x/wk. BG ranges: 60s-70s (feels symptomatic) to 300s at highest. Typically upper 190s-low 200s. Neuropathy: no complaints . Last foot exam: Today Statin therapy: No. Last lipid panel: none on record. LDL=n/a, TG=n/a. Nephropathy: On MISTY-I / ARB???s: No. Last MA: 05/18/23 (5). Last creat/GFR: 08/02/23 GFR=>90, CR=0.66. Retinopathy: Date of last eye examination: none on record. [facility] Last 3 Encounters: 09/05/24 53.5 kg (118 lb) (30%, Z= -0.53)* 05/25/24 53.3 kg (117 lb 6.4 oz) (29%, Z= -0.55)* * Growth percentiles are based on [facility] (Girls, 2-20 Years) data. Labs: Last A1c: Recent Labs Lab Units 09/05/24 1330 HEMOGLOBIN A1C POC % 8.7 Component Latest Ref Rng 05/25/2024 Hgb A1C, POC % 8.7 BUN 7 - 26 mg/dL 13 Creatinine 0.56 - 0.96 mg/dL 0.66 Sodium 136 - 145 mmol/L 133 Low Potassium 3.5 - 4.5 mmol/L 3.9 Chloride 98 - 107 mmol/L 105 CO2 22 - 29 mmol/L 22 Glucose 70 - 115 mg/dL 289 High Calcium 8.4 - 10.2 mg/dL 8.9 Anion Gap 6 - 16 6 BUN/Creatinine Ratio 7 - 23 20 Osmolality Calculated 270 - 300 mOsm/kg 287 eGFR by CKD-EPI >=90 mL/min/1.73 m2 >90 Resulting Agency [facility] Specimen Collected: 08/02/23 03:47 No results found for: MICROALBUR , [id number] No results found for: ALBCREATRATU No results found for: MALBCRTRAT Albumin Random Urine Not Established ug/mL 10.2 Creatinine Urine Not Established mg/dL 188 Urine Albumin/Creatinine Ratio <30 mg/g 5 Resulting Agency [facility] Specimen Collected: 05/18/23 09:36 Lipid profile within the last year: No results found for: CHOL No results found for: TRIG No results found for: HDL No results found for: LDLCALC Vitals: 09/05/24 1327 BP: 100/76 BP Location: Right arm Patient Position: Sitting Pulse: 82 Resp: 14 Weight: 53.5 kg (118 lb) Height: 157.5 cm (5' 2.01 ) Physical Exam Vitals and nursing note reviewed. Constitutional: Appearance: Normal appearance. She is well-developed and normal weight. HENT: Head: Normocephalic. Right Ear: Hearing normal. Left Ear: Hearing normal. Eyes: General: Lids are normal. Gaze aligned appropriately. Neck: Thyroid: No thyromegaly. Trachea: Trachea and phonation normal. No tracheal deviation. Cardiovascular: Rate and Rhythm: Normal rate and regular rhythm. No extrasystoles are present. Pulses: Dorsalis pedis pulses are 2+ on the left side. Posterior tibial pulses are 2+ on the left side. Heart sounds: Normal heart sounds, S1 normal and S2 normal. No murmur heard. Pulmonary: Effort: Pulmonary effort is normal. Breath sounds: Normal breath sounds and air entry. Feet: Left Foot: Monofilament exam: normal. Protective Sensation: 6 sites tested. 6 sites sensed. Skin Integrity: Negative for ulcer, blister, skin breakdown, erythema, warmth, callus or dry skin. Skin: General: Skin is warm and dry. Neurological: Mental Status: She is alert and oriented to person, place, and time. Mental status is at baseline. Psychiatric: Mood and Affect: Mood normal. Behavior: Behavior is cooperative. Assessment/Plan Diagnoses and all orders for this visit: Type 1 diabetes mellitus with hyperglycemia (HCC) (Primary) Assessment & Plan: Chronic problem. A1c remains uncontrolled but stable [...] intake and decrease carb portions as well asfruit juices, regular soda & desserts). Watch carbs and simple sugars. Check the blood sugar: Dexcom G6. Check the feet daily for skin breakdown and infection. Orders: - Albumin Creatinine Ratio, Urine; Future - Comprehensive metabolic panel; Future - Lipid panel; Future - POCT hemoglobin A1c - POCT glucose - insulin pump cart,auto,BT,G6/7 (Omnipod 5 G6-G7 Pods, Gen 5,) cartridge; Change pod every 3 days - insulin network development coordinator cart,aut,G6/7,cntr (Omnipod 5 G6-G7 Intro Kt,Gen5,) cartridge; Continuous glucose delivery system - glucagon (Baqsimi) 3 mg/actuation spray,non-aerosol; Administer 1 spray into one nostril as needed (low blood sugars) - OneTouch Verio test strips strip; Check blood sugar 4 times daily Devika Moise NP documented in this encounter Miscellaneous Notes * Assessment & Plan Note - Devika Moise NP - 09/05/2024 1:40 PM CDT Associated Problem(s): Type 1 diabetes mellitus with hyperglycemia (HCC) Chronic problem. A1c remains uncontrolled but stable [...] intake and decrease carb portions as well asfruit juices, regular soda & desserts). Watch carbs and simple sugars. Check the blood sugar: Dexcom G6. Check the feet daily for skin breakdown and infection. * Addendum Note - Jonah Muniz - 09/05/2024 1:30 PM CDTAddended by: JONAH MUNIZ on: 09/05/2024 02:21 PM Modules accepted: Orders documented in this encounter Plan of Treatment Not on file documented as of this encounter Procedures Procedure Name Priority Date/Time Associated Diagnosis Comments POCT HEMOGLOBIN A1C Routine 09/05/2024 1 :30 PM CDT Type 1 diabetes mellitus with hyperglycemia (HCC) POCT GLUCOSE Routine 09/05/2024 1:30 PM CDT Type 1 diabetes mellitus with hyperglycemia (HCC) documented in this encounter Results * Albumin Creatinine Ratio, Urine (09/05/2024 2:21 PM CDT) Albumin Ur 21.1 mg/L Comment: Interpretive Data No reference range established. Current interpretive data was last revised 2019. Creatinine Ur 190.3 mg/dL [facility] Comment: Interpretive Data No reference range established. Current interpretive data was last revised 2019. Albumin Creatinine Ratio, Ur 11 1 - 29 mg/g [facility] Urine 09/05/2024 2:21 PM CDT 09/05/2024 8:31 PM CDT us Devika Moise NP LAB URINE ORDERABLES Mariela raghav Result [facility] [id number] Department [place] [address] * (ABNORMAL) Comprehensive metabolic panel (09/05/2024 2:21 [...] classification and Diagnosis of Diabetes Diabetes Care 2021; 46: S19-S40. Current interpretive data was last [...] 09/05/2024 8:32 PM CDT us Devika Moise RUBBER TESTER LAB BLOOD ORDERABLES Mariela avilez Result Performing Organization Address City/State/ZIP Co md Phone Number [facility] [phone] Department [place] [address] * Lipid panel (09/05/2024 2:21 PM CDT) Cholesterol 163 30 - 199 mg/dL Comment: [...] on 2018. Triglycerides 39 <=129 mg/dL [facility] Comment: Interpretive Data [...] 3. Americo Arzola et al. ATIF Cardiol. 2020 March 23;5(5):540-548. doi: [email or web address] Current Interpretive Data was [...] 2:21 PM CDT 09/05/2024 8:32 PM CDT Devika Moise NP LAB BLOOD ORDERABLES Mariela l Result [facility] [id number] Department [place] [address] * (ABNORMAL) POCT glucose (09/05/2024 1:30 PM CDT) Glucose Blood, POC 187 mg/dL Blood 09/05/2024 1:30 PM CDT Devika Moise NP POINT OF CARE TEST ORDERA BLES Final Result * (ABNORMAL) POCT hemoglobin A1c (09/05/2024 1:30 PM CDT) Hemoglobin A1C, POC 8.7 4.0 - 5.6 % Blood 09/05/2024 1:30 PM CDT Devika Moise NP POINT OF CARE TEST ORDERA BLES Final Result documented in this encounter Visit Diagnoses Diagnosis Type 1 diabetes mellitus with hyperglycemia (HCC)- Primary documented in this encounter Discontinued Medications Medication Sig Discontinue Reason Start Date End Da te amoxicillin-clavulanate (AUGMENTIN) 875-125 mg per tablet Take 1 tablet by mouth every 12 (twelve) hours Therapy completed 04/13/2024 09/05/2024 fluconazole (DIFLUCAN) 150 mg tablet Take 1 tablet (150 mg total) by mouth every third day Therapy completed 05/12/2024 09/05/2024 blood glucose diagnostic strip Use to test blood sugar 1-2 times per day while on Dexcom Alternate therapy 12/04/2023 09/05/2024 blood glucose diagnostic (glucose blood) strip Use to test blood sugar 1-2 times per day while on Dexcom Alternate therapy 12/04/2023 09/05/2024 glucagon (Baqsimi) 3 mg/actuation spray,non-aerosol [place] 3 mg into the nose as needed (administer as directed for severe low blood sugar) Reorder 11/09/2023 09/05/2024 documented as of this encounter Care Teams Athletic Turf Worker Relationship Specialty Start Date End Date Alvarez Prabhakar MD [address] [place] [id number] PCP - General Pediatrics 02/04/24 documented as of this encounter
--- OUTSIDE RECORDS SUMMARY | 2024-11-22 05:22 | XMS_ITS | Clinical Summary ---
Author Organization [facility] Address [address] Attn: Epic Prelude ADT ISAK MATHISARIELLE [id number] Care Team Providers Care Dropper Tank Storage Name Role Phone Unavailable Primary Care Provider Unavailabl e Medications Medication Sig Dispensed Refills Start Date End Date Status insulin glargine (Lantus Solostar U-100 Insulin) 100 unit/mL pen syringe INJECT 18 UNITS UNDER THE SKIN ONCE NIGHTLY 15 mL 5 08/19/2023 Active insulin lispro (HumaLOG,ADMELOG ) 100 unit/mL pen syringe INJECT 1 UNIT FOR EVERY 7 CARBOHYDRATES, WITH A MAX OF 40 UNITS PER DAY. 45 mL 1 11/06/2023 Active Blood-Glucose Meter,Continuous (Dexcom G6 Photolith Operator) USE DIRECTED 1 Each 05/18/2023 Active Blood-Glucose Transmitter (Dexcom G6 Transmitter) Device USE 1 EACH EVERY 90 DAYS 1 Each 3 06/29/2023 Active Blood-Glucose Transmitter (Dexcom G6 Transmitter) Device USE 1 EACH EVERY 90 DAYS 1 Each 3 08/03/2023 Active Acetone, Urine, Test (Ketostix) Strip USE NEEDED (USE WHEN BLOOD SUGAR IS GREATER THAN 250 OR WHEN ILL) 100 Strip 4 08/03/2023 Active lancets 33 gauge USE 1 LANCET DIRECTED 200 Each 3 08/03/2023 Active Blood-Glucose Sensor (Dexcom G6 Sensor) Device USE 1 SENSOR UNDER THE SKIN EVERY 10 DAYS 3 Each 5 06/25/2023 Active lancets (Accu-Chek Softclix Lancets) USE FOR BLOOD GLUCOSE MONITORING 4-6 TIMES DAILY 200 Each 11 05/22/2023 Active glucagon (Baqsimi) 3 mg/spray [place], Non-Aerosol [place] 3 mg into the nose as needed (administer as directed for severe low blood sugar) 1 Each 11/09/2023 Active Blood-Glucose Transmitter (Dexcom G6 Transmitter) Device CHANGE EVERY 90 DAYS. 1 Each 2 12/04/2023 Active blood sugar diagnostic (OneTouch Verio test strips) Strip Use to test blood sugar 1-2 times per day while on Dexcom 100 Strip 5 12/04/2023 Active fluconazole (DIFLUCAN) 150 mg tablet Take 1 Tablet (150 mg) by mouth every 72 hours 2 Tablet 05/12/2024 Active glucagon (Baqsimi) 3 mg/spray [place], Non-Aerosol Administer 1 spray into one nostril as needed (low blood sugars) 2 Each 3 09/05/2024 Active insulin pump cart,auto,BT-cnt r (Omnipod 5 G6 Intro Kit, Gen 5,) Cartridge Continuous glucose delivery system 1 Each 09/05/2024 Active insulin pump cart,automated,B T (Omnipod 5 G6 Pods, Gen 5,) Cartridge Change pod every 3 days 10 Each 3 09/05/2024 Active OneTouch Verio test strips Strip Check blood sugar 4 times daily 400 Each 3 09/05/2024 Active insulin glargine (LANTUS) 100 unit/mL pen syringe Inject 18 Units under the skin nightly 15 mL 3 11/09/2024 Active Blood-Glucose Sensor (Dexcom G6 Sensor) Device CHANGE EVERY 10 DAYS 3 Each 11 11/14/2024 Active Blood-Glucose Sensor (Dexcom G6 Sensor) Device CHANGE EVERY 10 DAYS 3 Each 5 11/14/2024 Active Blood-Glucose Sensor (Dexcom G6 Sensor) Device CHANGE EVERY 10 DAYS 3 Each 5 12/04/2023 11/14/20 24 Discontinued(Reo rder) insulin glargine (Lantus Solostar U-100 Insulin) 100 unit/mL pen syringe INJECT 18 UNITS UNDER THE SKIN ONCE NIGHTLY 15 mL 5 10/24/2024 11/09/20 24 Discontinued Social History Tobacco Use Types Packs/Day Years Used Date Smoking Tobacco: Never Assessed Adolescent Education Answer Date Record ed Getting School Help Needed Not on file 06/13 Sex and Gender Information Value Date Recorded Sex Assigned at Not on file Gender Identity Not on file Sexual Orientation Not on file Plan of Treatment Health Maintenance Due Date Last Done Comments PNEUMOCOCCAL VACCINE 0-64 YE ARS (1 of 2 - PCV) 2010 CHLAMYDIA SCREENING (ANNUAL) 11-24 YEARS 2015 HPV VACCINES (1 - 3-dose series) 2019 DIABETES ANNUAL FOOT EXAM 2022 DIABETES ANNUAL RETINAL EXAM 2022 DIABETES MICROALBUMIN ANNUAL SCREEN 2022 LDL CHOLESTEROL ANNUAL 2022 DTAP/TDAP/TD VACCINES (1 - Tdap) 2023 HEPATITIS B VACCINES (1 of 3 - 19+ 3-dose series) 2023 INFLUENZA VACCINE (#1) 2024 , 09/19/2020, 09/09/2016, Additional history exists COVID-19 Vaccine (2 - 2023-2 5 season) 2024 02/26/2021 DIABETES HBA1C Q 6 MONTHS 03/06/20252023, 05/25/2024, 08/31/2023, Additional history exists
--- OUTSIDE RECORDS SUMMARY | 2024-11-22 05:22 | XMS_ITS | Encounter Summary ---
Author Organization [facility] Healthcare Address [address] [place] [address] Care Team Providers Care Gaming Surveillance Observer Name Role Phone Alvarez Prabhakar MD Primary Care Provider [phone] Reason for Visit * Reason Onset Date Comments insulin pump 08/03/2024 Encounter Details Date Type Department Care Team (Late st Contact Info) Description 08/03/2024 Telephone [facility] [id number] [place] [phone] Jack Fuentes MD [address] [place] [id number] insulin pump Social History Tobacco Use Types Packs/Day Years Used Date Smoking Tobacco: Never Smokeless Tobacco: Never PHQ-2 Answer Date Recorded PHQ-2 Total Score (If total score is 3 or more points, staff should administer the PHQ-9) 0 05/25/2024 Comments Unknown Sex and Gender Information Value Date Recorded Sex Assigned at Not on file 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 [employer] called and left voicemail on patient phone but couldn't hearthe name of company. documented in this encounter Plan of Treatment Not on file documented as of this encounter Visit Diagnoses Not on filedocumented in this encounter Care Teams Gaming Surveillance Observer Relationship Specialty Start Date End Date Alvarez Prabhakar MD [address] [place] [id number] PCP - General Pediatrics 02/04/24 documented as of this encounter
--- OUTSIDE RECORDS SUMMARY | 2024-11-22 05:22 | XMS_ITS | Encounter Summary ---
Author Organization [facility] Address [address] [place] [address] Care Team Providers Care Customer Care Consultant Name Role Phone Unavailable Primary Care Provider Unavailabl e Encounter Details Date Type Department Care Team (Late st Contact Info) Description 12/01/2023 External Device Data [facility] ABSTRACTION Provider, Abstract NO ADDRESS ON FILE Social History Tobacco Use Types Packs/Day Years [...]
--- OUTSIDE RECORDS SUMMARY | 2024-11-22 05:22 | XMS_ITS | Encounter Summary ---
Author Organization [facility] Healthcare Address [address] [place] [address] Care Team Providers Care Studio Director Name Role Phone Alvarez Prabhakar MD Primary Care Provider [phone] Reason for Visit * Reason Comments Diabetes Type 1 Encounter Details Date Type Department Care Team (Latest Contact Info) Description 05/25/2024 11:00 AM CDT Office Visit [facility] [id number] [place] [address] [place] [phone] [place] [id number] [place] [address] Type 1 diabetes mellitus with hyperglycemia [...] on file Legal Sex Female 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 Gender Identity Not on file Sexual Orientation Not on file documented as of this encounter Last Filed Vital Signs Vital Sign Reading Time Taken Comments Blood Pressure 98/62 05/25/2024 11:34 AM CDT Pulse 88 05/25/2024 11:34 AM CDT Temperature - - Respiratory Rate 16 05/25/2024 11:34 AM CDT Oxygen Saturation - - Inhaled Oxygen Concentration - - Weight 53.3 kg (117 lb 6.4 oz) 05/25/2024 11:34 AM CDT Height 157.5 cm (5' 2 ) 05/25/2024 11:34 AM CDT Body Mass Index 21.47 05/25/2024 11:34 AM CDT documented in this encounter Patient Instructions * Patient Instructions* Jack Fuentes MD - 05/25/2024 11:00 AM CDT Keep monitoring your sugars with DEXCOM Take the Lantus, 11 units at bedtime Take Humalog, before meals, trying to do 1 units per 10 grams of carbs and add 1 unit for every 50 points over 100 E.g. : for sugar of 150, add 1 units 200, add 2 units 250, add 3 units 300, add 4 units 350, add 5 units Over 400, add 6 units If you are not eating and it is meal time, you still have to take Humalog, for correction, as above Will start process for an insulin pump documented in this encounter Progress Notes * Jack Fuentes MD - 05/25/2024 11:00 AM CDT Subjective/Objective Patient ID: Anaid Dimas is a 18 y.o. female. Chief Complaint Diabetes Type 1 HPI New DM patient to the office. Consult requested by Alvarez Prabhakar MD for Diabetes Type 1 Diabetes complications and/or comorbidity includes : Last hospital admission, about 1 year ago, was off insulin for about one day. She also recalls probably 2-3 episodes of major hypoglycemia, probably in the last 2 years, when they have called the paramedics. She has glucagon emergency kit at home and her mother knows how to use it Diagnosed with DM at age 5 She lives with mother and grandmother. 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 Hba1c : Lab Results Component Value Date HGBA1C 8.7 05/25/2024 Current DM medications: Lantus, 11 units hs , around 9p-12a Humalog, some carb counting / estimates around 1: 15, would take , least 3-4 , most 12 units ,would do it up to 5 x days, does it with snacks. Correction , about 100 BG monitoring : DEXCOM, having some problems with the reader ? As per recollection , lowest 40-50, rarely, once in a blue doll ; highest, 500 , not very often; probably 400s , more often She is also doing finger sticks , 4 x day ; she finds that sometimes do not correlate well. She hasa sometimes when she is warned about hypoglycemia and her sugars have actually been very high Physical activity routine: None regular exercise but stays very busy Dietary habits : 2-4 meals, would not eat BF ; works from 4 -8 pm , at [employer], on the weekends only Assessment/Plan Diagnoses and all orders for this visit: Type 1 diabetes mellitus with hyperglycemia (HCC) (E10.65) (Primary) Assessment & Plan: Goal of treatment with glucoses in the [...] suggested the patient is to start using [employer] to communicate with us. I think she would be a good candidate for an insulin pump and she seems to be interested I contacted the [employer] rep, Shirley Carrillo . She will contact the patient if she is interested will start process with the insurance company for approval Orders: - POCT glucose - POCT hemoglobin A1c documented in this encounter Miscellaneous Notes * Assessment & Plan Note - Jack Fuentes MD - 05/25/2024 1:54 PM CDTAssociated Problem(s): Type 1 diabetes mellitus with hyperglycemia (HCC) Goal of treatment with glucoses in the [...] suggested the patient is to start using Sevcon to communicate with us. I think she would be a good candidate for an insulin pump and she seems to be interested I contacted the [employer] rep, Shirley Carrillo . She will contact the patient if she is interested will start process with the insurance company for approval documented in this encounter Plan of Treatment Not on file documented as of this encounter Procedures Procedure Name Priority Date/Time Associated Diagnosis Comments POCT HEMOGLOBIN A1C Routine 05/25/2024 1 1:33 AM CDT Type 1 diabetes mellitus with hyperglycemia (HCC) POCT GLUCOSE Routine 05/25/2024 11:33 AM CDT Type 1 diabetes mellitus with hyperglycemia (HCC) documented in this encounter Results * (ABNORMAL) POCT hemoglobin A1c (05/25/2024 11:33 AM CDT) Hemoglobin A1C, POC 8.7 % Comment:None Capillary blood 05/25/2024 1 1:33 AM CDT us Jack Fuentes MD POINT OF CARE TEST ORDERABLES Fi nal Result * (ABNORMAL) POCT glucose (05/25/2024 11:33 AM CDT) Glucose Blood, POC 155 mg/dL Comment:None Blood 05/25/2024 11:3 3 AM CDT us Jack Fuentes MD POINT OF CARE TEST ORDERABLES Fi nal Result documented in this encounter Visit Diagnoses Diagnosis Type 1 diabetes mellitus with hyperglycemia (HCC)- Primary documented in this encounter Historical Medications * This list may reflect changes made after this encounter. insulin syringe-needle U-100 0.3 mL 31 gauge x 5/16 syringe USE FOR INJECTION DAILY 04/17/2020 insulin admin supplies insulin pen Use for insulin delivery. 10/20/2018 glucagon 1 mg kit Inject 1 mg into muscle as directed for severe low blood sugar reaction. 07/11/2019 acetone, urine, test strip Use as directed for urine ketone checks if blood sugar above 250 or if ill. Dispense one bottle for school and one for home. 04/12/2018 acetone, urine, test strip by Not Applicable route as needed 08/03/2023 insulin syringe-needle U-100 0.5 mL 30 gauge x 5/16 syringe 1 Syringe by Not Applicable route as directed 03/11/2021 blood-glucose meter,continuous (Dexcom G6 Creative Services Producer) misc as directed 05/18/20[address] on the skin 06/29/2023 blood-glucose transmitter (Dexcom G6 Transmitter) device CHANGE EVERY 90 DAYS. 12/04/2023 insulin lispro (HumaLOG, ADMELOG) 100 unit/mL pen for injection Sliding scale Max 15 units 11/06/2023 lancets misc USE FOR BLOOD GLUCOSE MONITORING 4-6 TIMES DAILY 05/22/2023 lancets 33 gauge misc USE 1 LANCET DIRECTED 08/03/2023 acetone, urine, test strip USE NEEDED (USE WHEN BLOOD SUGAR IS GREATER THAN 250 OR WHEN ILL) 08/03/2023 oxyBUTYnin XL (DITROPAN-XL) 10 mg 24 hr tablet Take 1 tablet (10 mg total) by mouth nightly 06/20/2021 lancing device with lancets kit Use for blood glucose monitoring 4-6 times/day. 05/22/2023 blood glucose diagnostic (glucose blood) strip Use to test blood sugar 1-2 times per day while on Dexcom 12/04/2023 amoxicillin-clavu lanate (AUGMENTIN) 875-125 mg per tablet Take 1 tablet by mouth every 12 (twelve) hours 04/13/2024 blood glucose diagnostic strip Use to test blood sugar 1-2 times per day while on Dexcom 12/04/2023 Dexcom G6 Sensor device USE 1 SENSOR UNDER THE SKIN EVERY 10 DAYS 06/25/2023 4 fluconazole (DIFLUCAN) 150 mg tablet Take 1 tablet (150 mg total) by mouth every third day 05/12/2024 4 glucagon (Baqsimi) 3 mg/actuation spray,non-aerosol [place] 3 mg into the nose as needed (administer as directed for severe low blood sugar) 11/09/2023 4 insulin glargine 100 unit/mL (3 mL) pen for injection Inject 11 Units under the skin nightly 08/19/2023 4 added in this encounter Care Teams Studio Director Relationship Specialty Start Date End Date Alvarez Prabhakar MD [address] [place] [address] PCP - General Pediatrics 02/04/24 documented as of this encounter
--- OUTSIDE RECORDS SUMMARY | 2024-11-22 05:22 | XMS_ITS | Encounter Summary ---
Author Organization [facility] Healthcare Address [address] [place] [address] Care Team Providers Care Substance Abuse Nurse Name Role Phone Alvarez Prabhakar MD Primary Care Provider [phone] Encounter Details Date Type Department Care Team (Late st Contact Info) Description 11/07/2024 Telephone [facility] [address] [phone] [place] [address] [address] Social History Tobacco Use Types Packs/Day Years Used Date Smoking Tobacco: Never Smokeless Tobacco: Never PHQ-2 Answer Date Recorded PHQ-2 Total Score (If total score is 3 or more points, staff should administer the PHQ-9) 0 05/25/2024 Comments Unknown Sex and Gender Information Value Date Recorded Sex Assigned at Not on file 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 Gender Identity Not on file Sexual Orientation Not on file documented as of this encounter Miscellaneous Notes * Telephone Encounter - Diana Stark MA - 11/14/2024 1:53 PM CST Devika sent on 11/09/24 ER MACHINE * Telephone Encounter - Kassy Gillespie - 11/07/2024 9:33 AM CST Patient mom called and stated that the Lantus is costing too much with the insurance please send a new rx for the Basaglar insulin which is covered by her insurance to the [facility] pharmacy Agnes Padilla KATELYNN 09/05/24 DS NOV 12/21/24 DS ER MACHINE documented in this encounter Plan of Treatment Not on file documented as of this encounter Visit Diagnoses Not on filedocumented in this encounter Care Teams Substance Abuse Nurse Relationship Specialty Start Date End Date Alvarez Prabhakar MD [address] [place] [address] PCP - General Pediatrics 02/04/24 documented as of this encounter
--- OUTSIDE RECORDS SUMMARY | 2024-11-22 05:22 | XMS_ITS | Encounter Summary ---
Author Organization [facility] Healthcare Address [address] [place] [address] Care Team Providers Care Teller Manager Name Role Phone Alvarez Prabhakar MD Primary Care Provider [phone] Reason for Visit * Reason Comments Omnipod Insulin Pump Training Encounter Details Date Type Department Care Team ([facility] Contact Info) Description 11/09/2024 10:30 AM TILE SORTER Clinical Support [facility] Medical Group Diabetes and Endocrinology [address] [place] [phone] Social History Tobacco Use Types Packs/Day Years Used Date Smoking Tobacco: Never Smokeless Tobacco: Never PHQ-2 Answer Date Recorded PHQ-2 Total Score (If total score is 3 or more points, staff should administer the PHQ-9) 0 05/25/2024 Comments Unknown Sex and Gender Information Value Date Recorded Sex Assigned at Not on file Legal Sex Female 6:57 AM TILE SORTER Gender Identity Not on file Sexual Orientation Not on file documented as of this encounter Plan of Treatment Not on file documented as of this encounter Visit Diagnoses Not on filedocumented in this encounter Care Teams Teller Manager Relationship Specialty Start Date End Date Alvarez Prabhakar MD [address] [address] PCP - General Pediatrics 02/04/24 documented as of this encounter
--- OUTSIDE RECORDS SUMMARY | 2024-11-22 05:22 | XMS_ITS | Encounter Summary ---
Author Organization [facility] Healthcare Address [address] [place] [address] Care Team Providers Care Flight Tower Dispatcher Name Role Phone Alvarez Prabhakar MD Primary Care Provider [phone] Encounter Details Date Type Department Care Team (Latest Contact Info) Description 09/05/2024 2:21 PM CDT - 09/05/2024 11:59 PM CDT Hospital Encounter [facility] [address] [place] [address] Type 1 diabetes mellitus with hyperglycemia (HCC) Discharge Disposition: Discharge to home or self care Social History Tobacco Use Types Packs/Day Years Used Date Smoking Tobacco: Never Smokeless Tobacco: Never PHQ-2 Answer Date Recorded PHQ-2 Total Score (If total score is 3 or more points, staff should administer the PHQ-9) 0 05/25/2024 Comments Unknown Sex and Gender Information Value Date Recorded Sex Assigned at Not on file 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 Dispense one bottle for school and one for home. 04/12/2018 blood-glucose meter,continuous (Dexcom G6 Draw String Knotter) misc as directed 05/18/2023 blood-glucose transmitter (Dexcom G6 Transmitter) device CHANGE EVERY 90 DAYS. 12/04/[address] on the skin 06/29/2023 glucagon (Baqsimi) 3 mg/actuation spray,non-aerosolIn dications:Type 1 diabetes mellitus with hyperglycemia (HCC) Administer 1 spray into one nostril as needed (low blood sugars) 2 each 3 09/05/2024 glucagon 1 mg kit Inject 1 mg into muscle as directed for severe low blood sugar reaction. 07/11/2019 insulin admin supplies insulin pen Use for insulin delivery. 10/20/2018 insulin lispro (HumaLOG, ADMELOG) 100 unit/mL pen for injection Sliding scale Max 15 units 11/06/2023 insulin pathology manager cart,aut,G6/7,cntr (Omnipod 5 G6-G7 Intro Kt,Gen5,) cartridgeIndication s:Type 1 diabetes mellitus with hyperglycemia (HCC) Continuous glucose delivery system 1 each 09/05/2024 insulin pump cart,auto,BT,G6/7 (Omnipod 5 G6-G7 Pods, Gen 5,) cartridgeIndication s:Type 1 diabetes mellitus with hyperglycemia (HCC) Change pod every 3 days 10 each 3 09/05/2024 insulin syringe-needle U-100 0.3 mL 31 gauge x 5/16 syringe USE FOR INJECTION DAILY 04/17/2020 insulin syringe-needle U-100 0.5 mL 30 gauge x 5/16 syringe 1 Syringe by Not Applicable route as directed 03/11/2021 lancets 33 gauge misc USE 1 LANCET DIRECTED 08/03/2023 lancets misc USE FOR BLOOD GLUCOSE MONITORING 4-6 TIMES DAILY 05/22/2023 lancing device with lancets kit Use for blood glucose monitoring 4-6 times/day. 05/22/2023 OneTouch Verio test strips stripIndications:Ty pe 1 diabetes mellitus with hyperglycemia (HCC) Check blood sugar 4 times daily 400 strip 3 09/05/2024 oxyBUTYnin XL (DITROPAN-XL) 10 mg 24 hr tablet Take 1 tablet (10 mg total) by mouth nightly 06/20/2021 Dexcom G6 Sensor device USE 1 SENSOR UNDER THE SKIN EVERY 10 DAYS 06/25/2023 4 insulin glargine 100 unit/mL (3 mL) pen for injection Inject 11 Units under the skin nightly 08/19/2023 4 documented as of this encounter Discharge Disposition Disposition Code Departure Means Destination Discharge to home or self care documented in this encounter Miscellaneous Notes * Result Encounter Note - Devika Moise NP - 09/05/2024 11:59 PM CDT SEE LETTER SENT VIA MAIL: Saray Lenz to have met you yesterday. Your labs are all normal. Please let me know if any difficulties getting your Omnipod insulin pump or getting the training set up. Again, we need to have an appointment with you scheduled 7-10 days after you start the pump. Please see below for lab result explanations. Please review below recommendations to help improve any abnormal readings. GFR (kidney filtration rate, normal is over 90): >90 (NORMAL) Your lipid panel explanation below: -total cholesterol should be below 200; you are 163 (NORMAL). Please watch fried, fast, fatty, high-calorie foods and red meats to help lower. Also increase physical activity. -HDL (healthy cholesterol) should be 45-60; the higher this number the better. You are 76 (GREAT). Increased activity helps increase this reading. HDL helps pull out LDL from circulating in your blood. -LDL (lousy cholesterol) should be less than 100; you are 78 (NORMAL). An elevated HDL helps negateany elevated LDL. Please watch fried, fast, fatty, high-calorie foods and red meats to lower LDL. LDL is what causes blockages in arteries. -triglycerides should be less than 150. You are 39 (NORMAL). This is the carbohydrate/sugar component of the lipid panel. CMP (electrolytes, kidney & liver functions): NORMAL Urine creatinine albumin (0-29): 11 (NORMAL) documented in this encounter Plan of Treatment [...] (HCC) documented in this encounter Results * eGFR (09/05/2024 2:21 PM CDT) eGFR >90 >=60 mL/min/1. 73 m2 Comment: [...] 09/05/2024 8:46 PM CDT us Devika Moise CRYPTOANALYSIS TEACHER LAB BLOOD ORDERABLES Mariela avilez Result [facility] [id number] [place] [address] * Lipid panel (09/05/2024 2:21 PM CDT) [...] on 2018. HDL 76 >=45 mg/dL [facility] Comment: Interpretive Data Ages < [...] on 2024. Non-HDL Cholesterol 87 mg/dL [facility] Comment: Interpretive Data Ages < [...] last revised on 2018. Chol/HDL ratio 2 [facility] Blood 09/05/2024 2:21 PM CDT 09/05/2024 8:32 PM CDT us Devika Moise CRYPTOANALYSIS TEACHER LAB BLOOD ORDERABLES Mariela avilez Result [facility] [address] Department [place] [address] * (ABNORMAL) Comprehensive metabolic panel (09/05/2024 2:21 PM CDT) Sodium 135 135 - 145 mmol/L Potassium, pl 4.3 3.3 - 4.9 mmol/L [facility] Chloride 100 97 - 110 mmol/L [facility] CO2 25 22 - 32 mmol/L [facility] Anion gap 10 2 - 15 mmol/L [facility] BUN 16 6 - 25 mg/dL [facility] Creatinine 0.57(L) 0.60 - 1.10 mg/dL [facility] Glucose 196 70 - 199 mg/dL [facility] Comment: Interpretive Data Fasting glucose >/= 126 [...] classification and Diagnosis of Diabetes Diabetes Care 2022; 46: S19-S40. Current interpretive data was last [...] PM CDT 09/05/2024 8:32 PM CDT us Devikadayday Moise CRYPTOANALYSIS TEACHER LAB BLOOD ORDERABLES Mariela l Result Performing Organization Address [facility] de Phone Number [facility] [address] Department [employer] [place], [place] [phone] * Albumin Creatinine Ratio, Urine (09/05/2024 2:21 PM CDT) Albumin Ur 21.1 mg/L Comment: Interpretive Data No reference range established. Current interpretive data was last revised 2019. Creatinine Ur 190.3 mg/dL [facility] Comment: Interpretive Data No reference range established. Current interpretive data was last revised 2019. Albumin Creatinine Ratio, Ur 11 1 - 29 mg/g [facility] Urine 09/05/2024 2:21 PM CDT 09/05/2024 8:31 PM CDT us Devika Moise CRYPTOANALYSIS TEACHER LAB URINE ORDERABLES Mariela l Result Performing Organization Address [facility] Co de Phone Number [facility] [address] [place] [address] documented in this encounter Visit Diagnoses Diagnosis Type 1 diabetes mellitus with hyperglycemia (HCC) documented in this encounter Care Teams Flight Tower Dispatcher Relationship Specialty Start Date End Date Alvarez Prabhakar MD [address] [place] [address] PCP - General Pediatrics 02/04/24 documented as of this encounter
--- OUTSIDE RECORDS SUMMARY | 2024-11-22 05:22 | XMS_ITS | Encounter Summary ---
Author Organization [facility] Healthcare Address [address] [place] [address] Care Team Providers Care Tile Setter Name Role Phone Alvarez Prabhakar MD Primary Care Provider [phone] Reason for Visit * Reason Comments Omnipod pump training Encounter Details Date Type Department Care Team (Late st Contact Info) Description 10/04/2024 10:30 AM DELIVERY TABLE OPERATOR Clinical Support [facility] Medical Group Diabetes and Endocrinology [address] [place] [phone] Social History Tobacco Use Types Packs/Day Years Used Date Smoking Tobacco: Never Smokeless Tobacco: Never PHQ-2 Answer Date Recorded PHQ-2 Total Score (If total score is 3 or more points, staff should administer the PHQ-9) 0 05/25/2024 Comments Unknown Sex and Gender Information Value Date Recorded Sex Assigned at Not on file Legal Sex Female 6:57 AM DELIVERY TABLE OPERATOR Gender Identity Not on file Sexual Orientation Not on file documented as of this encounter Progress Notes * Diana Stark MA - 10/04/2024 10:30 AM CST Pt came to the [facility] office today for her Omnipod pump training along with her Mother. VERY TABLE OPERATOR documented in this encounter Plan of Treatment Not on file documented as of this encounter Visit Diagnoses Not on filedocumented in this encounter Care Teams Tile Setter Relationship Specialty Start Date End Date Alvarez Prabhakar MD [address] [place] [id number] PCP - General Pediatrics 02/04/24 documented as of this encounter
--- OUTSIDE RECORDS SUMMARY | 2024-11-22 05:22 | XMS_ITS | Encounter Summary ---
Author Organization [facility] Healthcare Address [address] [place] [address] Care Team Providers Care Industrial Custodian Name Role Phone Unavailable Primary Care Provider Unavailabl e Reason for Visit * Reason Onset Date Comments new patient referral 01/07/2024 Encounter Details Date Type Department Care Team (Late st Contact Info) Description 01/07/2024 Telephone [facility] Medical Group Diabetes and Endocrinology [address] [place] [phone] [place] [address] [facility] [address] [address] new patient referral Social History Tobacco Use Types Packs/Day Years Used Date Smoking Tobacco: Never Assessed Comments Unknown Sex and Gender Information Value Date Recorded Sex Assigned at Not on file Legal Sex Female 6:57 AM GEOTHERMAL OPERATING ENGINEER Gender Identity Not on file Sexual Orientation Not on file documented as of this encounter Miscellaneous Notes * Telephone Encounter - Samira Mclaughlin - 01/20/2024 1:46 PM CST Called patient unable to lmom # was busy all other # in chart are not working # Mailed new patient referral letter Records were addressed to Dr Fuentes but the records are regarding neurology issues seizures not surewhat patient is being referred for HERMAL OPERATING ENGINEER * Telephone Encounter - Samira Mclaughlin - 01/07/2024 3:52 PM CST Received records referring patient to endocrinology records scanned HERMAL OPERATING ENGINEER documented in this encounter Plan of Treatment Not on file documented as of this encounter Visit Diagnoses Not on filedocumented in this encounter
--- OUTSIDE RECORDS SUMMARY | 2024-11-22 05:22 | XMS_ITS | Encounter Summary ---
Author Organization [facility] Healthcare Address [address] [place] [address] Care Team Providers Care Sheet Combining Operator Name Role Phone Alvarez Prabhakar MD Primary Care Provider [phone] Reason for Visit * Reason Onset Date Comments Prior Auth 09/06/2024 Omnipod 5 Encounter Details Date Type Department Care Team (Late st Contact Info) Description 09/06/2024 Telephone [facility] Diabetes and Endocrinology [address] [place] [phone] Devika Moise, GRIP BOSS [address] [facility] [address] [place] [address] Prior Auth (Omnipod 5) Social History Tobacco Use Types Packs/Day Years Used Date Smoking Tobacco: Never Smokeless Tobacco: Never PHQ-2 Answer Date Recorded PHQ-2 Total Score (If total score is 3 or more points, staff should administer the PHQ-9) 0 05/25/2024 Comments Unknown Sex and Gender Information Value Date Recorded Sex Assigned at Not on file Legal Sex Female 6:57 AM JEWEL HOLE ROUGH OPENER Gender Identity Not on file Sexual Orientation Not on file documented as of this encounter Miscellaneous Notes * Telephone Encounter - Diana Stark MA - 09/14/2024 7:58 AM CDT Approval received for Omnipod from Jackelyn Overton. SHAMIR at [facility] informing them of approval. * Telephone Encounter - Diana Stark MA - 09/06/2024 4:21 PM CDT PA forms faxed to [facility] along with 09/05/24 office note and medication list through [employer]com. * Telephone Encounter - Devika Moise NP - 09/06/2024 4:03 PM CDT signed * Telephone Encounter - Diana Stark MA - 09/06/2024 3:00 PM CDT Spoke w/ Tanya with [employer] and she stated the pa form can be found at [employer]. She stated the Medical Billing section can be crossed out but the rest of the form needs completed and faxed back. PA form completed for both the Omnipod 5 G6/7 Intro Kit and pods and placed on Devika's desk for signature. * Telephone Encounter - Diana Stark MA - 09/06/2024 10:52 AM CDT Prior auth request received from [facility] for Omnipod 5 G6/G7 Intro Kit and pods. Prior auth can not be completed on [facility]. Spoke with Addy Keita) at [facility] and she stated the pt only has Medicalbenefits, no pharmacy coverage. documented in this encounter Plan of Treatment Not on file documented as of this encounter Visit Diagnoses Not on filedocumented in this encounter Care Teams Sheet Combining Operator Relationship Specialty Start Date End Date Alvarez Prabhakar MD [address] [place] [address] PCP - General Pediatrics 02/04/24 documented as of this encounter
--- OUTSIDE RECORDS SUMMARY | 2024-11-22 05:22 | XMS_ITS | Clinical Summary ---
Author Organization [facility] Physician Office Building [address] [place] [phone] Care Team Providers Care Canal Equipment Mechanic Name Role Phone Alvarez Prabhakar MD Primary Care Provider Allergies No known active allergies Medications lancing [...] 06/29/20 23 Active blood-glucose meter,continuous (Dexcom G6 Genetics Teacher) misc as directed 05/18/20 23 Active insulin syringe-needle U-100 0.5 mL 30 gauge x 5/16 syringe 1 Syringe by Not Applicable route as directed 03/11/20 21 Active acetone, urine, test strip by Not [...] 10 each 3 09/05/[address] design engineer cart,aut,G6/7,cn tr (Omnipod 5 G6-G7 Intro Kt,Gen5,) [...] suggested the patient is to start using MyChart to communicate with us. I think she would be a good candidate for an insulin pump and she seems to be interested I contacted the [employer] rep, Shirley Senaeddi . She will contact the patient if she is interested will start process with the insurance company for approval Encounters Date Type Department Care Team Description 11/17/2024 Telephone [facility] [address] [phone] Jack Fuentes MD 11/14/2024 Telephone [facility] Diabetes and Endocrinology [address] [place] [phone] Devika Moise NP Hyperglycemia 11/09/2024 10:30 AM PARADICHLOROBENZENE MACHINE OPERATOR Clinical Support [facility] Diabetes and Endocrinology [address] [place] [phone] 11/09/2024 Orders Only [facility] Medical [facility] Diabetes and Endocrinology [address] [place] [phone] Devika Moise NP Type 1 diabetes mellitus with hyperglycemia (HCC) (Primary Dx) 11/07/2024 Telephone [facility] [address] [phone] Devika Moise NP 10/04/2024 10:30 AM PARADICHLOROBENZENE MACHINE OPERATOR Clinical Support [facility] Diabetes and Endocrinology [address] [place] [phone] 09/06/2024 Telephone [facility] Diabetes and Endocrinology [address] [place] [phone] Devika Moise NP Prior Auth (Omnipod 5) 09/05/2024 2:30 PM CDT Lab [facility] Medical Group Outpatient Lab at [address] [phone] 09/05/2024 2:21 PM CDT - 09/05/2024 11:59 PM CDT Hospital Encounter [facility] [address] [place] [address] Type 1 diabetes mellitus with hyperglycemia (HCC) Discharge Disposition: Discharge to home or self care 09/05/2024 1:30 PM CDT Office Visit [facility] Medical Group Diabetes and Endocrinology [facility] [place] [phone] Devika Moise NP Type 1 diabetes mellitus with hyperglycemia (HCC) (Primary Dx) from Last 3 Months Social History Tobacco Use Types Packs/Day Years Used Date Smoking Tobacco: Never Smokeless Tobacco: Never Tobacco Cessation:Counseling Given: Not Answered PHQ-2 Answer Date Recorded PHQ-2 Total Score (If total score is 3 or more points, staff should administer the PHQ-9) 0 05/25/2024 Comments Unknown Sex and Gender Information Value Date Recorded Sex Assigned at Not on file Legal Sex Female 6:57 AM PARADICHLOROBENZENE MACHINE OPERATOR Gender Identity Not on file Sexual Orientation Not on file Obstetrics History Last Filed Vital Signs Vital Sign Reading [...] 09/05/2024 1:27 PM CDT Plan of Treatment Health Maintenance Due Date Last Done Comments Hepatitis C Screening 2004 TSH Level 2004 Pneumococcal vaccine <65 (1 of 1 - PPSV23 or PCV20) 2010 04/14/2005, 02/10/2005, 2004 Dilated Eye Exam 2014 Varicella Vaccines (1 of 2 - 13+ 2-dose series) 2017 HPV Vaccines (1 - 3-dose series) 2019 Meningococcal B Vaccine (1 o f 2 - Patient Seeks Protection) 2020 Regular Well Visit/Exam 18-64 2022 Covid-19 Vaccine (4 - 2023-2 5 season) 2024 08/25/2022, 03/27/2021, 02/26/2021 Influenza Vaccine (#1) 2024 3, 08/25/2022, 09/19/2020, Additional history exists Hemoglobin A1C 03/06/2025 09/05/2024, 05/25/2024 Depression Screening 05/25/2025 05/25/2024 Albumin Creatinine Ratio, Urine 09/05/2025 Foot Exam 09/05/2025 09/05/2024 Lipid Panel 09/05/2025 09/05/2024 eGFR 09/05/2025 09/05/2024 DTaP/Tdap/Td Vaccine (5 - Td or Tdap) 04/13/2034 04/13/2024, 04/14/2005, 02/10/2005, Additional history exists Meningococcal Vaccine Completed 09/02/2022 Procedures Procedure Name Priority Date/Time Associated Diagnosis [...] 09/05/2024 8:46 PM CDT us Devika Moise ACCOUNT ANALYST LAB BLOOD ORDERABLES Mariela l Result [facility] [address] Department [place] [address] * Albumin Creatinine Ratio, Urine (09/05/2024 2:21 PM CDT) Albumin Ur 21.1 mg/L Comment: Interpretive Data No reference range established. Current interpretive data was last revised 2019. Creatinine Ur 190.3 mg/dL [facility] Comment: Interpretive Data No reference range established. Current interpretive data was last revised 2019. Albumin Creatinine Ratio, Ur 11 1 - 29 mg/g [facility] Urine 09/05/2024 2:21 PM CDT 09/05/2024 8:31 PM CDT us Devika Moise ACCOUNT ANALYST LAB URINE ORDERABLES Mariela raghav Result [facility] [address] [facility] Department [place] [address] * Lipid panel (09/05/2024 2:21 PM CDT) [...] revised on 2018. Triglycerides 39 <=129 mg/dL [facility] Comment: Interpretive Data Ages < or = [...] 2018. LDL, calculated 78 <=129 mg/dL [facility] Comment: Interpretive Data Ages [...] revised on 2024. Non-HDL Cholesterol 87 mg/dL [facility] Comment: Interpretive Data Ages < or = [...] 09/05/2024 8:32 PM CDT us Devika Moise ACCOUNT ANALYST LAB BLOOD ORDERABLES Mariela avilez Result [facility] [address] Department [place] [address] * (ABNORMAL) Comprehensive metabolic panel (09/05/2024 2:21 PM CDT) Sodium 135 135 - 145 mmol/L Potassium, pl 4.3 3.3 - 4.9 mmol/L [facility] Chloride 100 97 - 110 mmol/L [facility] CH CO2 25 22 - 32 mmol/L [facility] CH Anion gap 10 2 - 15 mmol/L [facility] CH BUN 16 6 - 25 mg/dL [facility] Creatinine 0.57(L) 0.60 - 1.10 mg/dL [facility] [...] 09/05/2024 8:32 PM CDT us Devika Moise ACCOUNT ANALYST LAB BLOOD ORDERABLES Mariela l Result [facility] [address] [address] Department [place] [address] * (ABNORMAL) POCT hemoglobin A1c (09/05/2024 1:30 PM CDT) Hemoglobin A1C, POC 8.7 4.0 - 5.6 % Blood 09/05/2024 1:30 PM CDT us Devika Moise NP POINT OF CARE TEST ORDERA BLES Final Result * (ABNORMAL) POCT glucose (09/05/2024 1:30 PM CDT) Glucose Blood, POC 187 mg/dL Blood 09/05/2024 1:30 PM CDT us Devika Moise NP POINT OF CARE TEST ORDERA BLES Final Result from Last 3 Months Insurance [employer] SHERIF JIMENEZ Member Subscriber Plan / Payer (Ef fective 2023-Present) Name:Anaid Dimas Relation to Subscriber:Child Name:Teresa Chasesheeba Alfonso Date of :1983 Address: [address] [place] [address] Payer ID:[id number] (NAIC) Type: [employer] Address: [address] [place] [id number] [employer] Care Teams Canal Equipment Mechanic Relationship Specialty Start Date End Date Alvarez Prabhakar MD [address] [place] [phone] PCP - General Pediatrics 02/04/24
--- OUTSIDE RECORDS SUMMARY | 2024-11-22 05:22 | XMS_ITS | Encounter Summary ---
Author Organization [facility] Healthcare Address [address] [place] [address] Care Team Providers Care Grade Teacher Name Role Phone Alvarez Prabhakar MD Primary Care Provider [phone] Encounter Details Date Type Department Care Team (Late st Contact Info) Description 11/09/2024 Orders Only [facility] Medical Group Diabetes and Endocrinology [address] [place] [phone] Devika Moise TRUSS ASSEMBLER [address] [facility] [address] [place] [address] Type 1 diabetes mellitus with hyperglycemia [...] on file Legal Sex Female 6:57 AM CUTTING DEPARTMENT SUPERVISOR Gender Identity Not on file Sexual Orientation Not on file documented as of this encounter Ordered Prescriptions Prescription Sig Dispense Quantity Refills Last Filled Start Date End Date insulin glargine 100 unit/mL (3 mL) pen for injectionIndication s:Type 1 diabetes mellitus with hyperglycemia (HCC) Inject 18 Units under the skin nightly 15 mL 3 11/09/2024 5 documented in this encounter Plan of Treatment Not on file documented as of this encounter Visit Diagnoses Diagnosis Type 1 diabetes mellitus with hyperglycemia (HCC)- Primary documented in this encounter Discontinued Medications Medication Sig Discontinue Reason Start Date End Da te LANTUS 100 unit/mL (3 mL) pen for injectionIndications:Type 1 diabetes mellitus with hyperglycemia (HCC) INJECT 18 UNITS UNDER THE SKIN ONCE NIGHTLY Alternate therapy 10/24/2024 11/09/2024 documented as of this encounter Care Teams Grade Teacher Relationship Specialty Start Date End Date Alvarez Prabhakar MD [address] [place] [address] PCP - General Pediatrics 02/04/24 documented as of this encounter
== END 2024-11-16 11:22 | disposition home or self-care (01) ==
LOC: ANHED 20:08 → ANHICU 21:44 → ANH3MEDSUR 11-16 10:49 → ANHICU 11-17 09:55
PROVIDERS: Internal Medicine; Registered Nurse; Admitting Provider Internal Medicine; Emergency Provider Student in an Organized Health Care Education/Training Program; Visit Provider Internal Medicine
DX: E10.10 Type 1 diabetes mellitus with ketoacidosis without coma (principal); Z79.4 Long term (current) use of insulin; Z96.41 Presence of insulin pump (external) (internal); Z20.822 Contact with and (suspected) exposure to COVID-19
CPT/HCPCS: 36415; 71045; 80048; 80053; 81001; 81025; 82010; 82728; 82948; 83036; 83540; 83550; 83735; 84100; 85025; 87637; 87641; 96361; 96365; 96366; 96368; 96372; 96374; 96375; 99285; G0378; J1650; J1815; J1885; J2270; J3475; J3480; J7030; J7120

== ENCOUNTER 2025-05-23 08:47 | Observation (INO) | payer OTHER, SELFPAY ==
[2025-05-23] VITALS (16 sets, daily range): BP systolic 113–138; BP diastolic 53–83; PULSE 98–123; RESP 17–26; TEMP 36.4–36.9; O2SAT 99–100; BMI 14.9
--- NOTE | ~2025-05-23 | XR_ITS ---
EXAMINATION: XR chest 2V DATE: 05/23/2025 10:34 INDICATION: Diabetic ketoacidosis TECHNIQUE: PA and lateral views of the chest were obtained. COMPARISON: Chest radiograph dated 11/14/2024 FINDINGS: The lungs are clear with no focal airspace opacities, pulmonary edema, pleural effusion or pneumothor ax. The cardiomediastinal silhouette is normal. Mild thoracolumbar levoscoliosis. Excreted contrast i n the bilateral renal collecting systems related to immediately prior contrast enhanced CT. IMPRESSION: 1. No acute cardiopulmonary disease. Reviewed, dictated and finalized at location B.
--- NOTE | ~2025-05-23 | CT_ITS ---
EXAMINATION: CT abdomen pelvis w con DATE: 05/23/2025 10:29 INDICATION: Abdominal pain. Nausea and vomiting. Diabetic ketoacidosis. TECHNIQUE: Computed tomography (CT) of the abdomen and pelvis was performed with 100 mL Omnipaque-350 intravenous contrast. Automated exposure control and iterative reconstruction technique were employe d. The dose-length product was 223.17 mGy-cm. COMPARISON: None FINDINGS: Lung bases are clear. Heart size is normal. No pericardial or pleural effusion. Possible diffuse hepa tic steatosis although specificity is decreased by the presence of intravenous contrast. The gallblad ronny, spleen, pancreas, bilateral adrenal glands and kidneys are normal. Bowels including the appendix are normal. Bladder, uterus and adnexa are unremarkable. Tampon within the vaginal vault. No free in traperitoneal gas or fluid. No pathologically enlarged abdominal or pelvic lymphadenopathy. Mild thor acolumbar levoscoliosis. IMPRESSION: 1. No acute intra-abdominal/pelvic process. Reviewed, dictated and finalized at location B.
--- OUTSIDE RECORDS SUMMARY | 2025-05-23 08:50 | XMS_ITS | Encounter Summary ---
Author Organization [facility] Address [address] [place] [address] Care Team Providers Care Rn Transitional Name Role Phone Alvarez Prabhakar MD Primary Care Provider [phone] Reason for Visit * Reason Onset Date Comments MEDICATION REFILL 02/26/2017 Encounter Details Date Type Department Care Team (Late st Contact Info) Description 02/26/2017 Refill [facility] Pediatrics - Endocrinology [address] [facility] [place] [address] Kory Lopez, WENDI-JUDGE'S CLERK [address] [place] [phone] MEDICATION REFILL Social History Tobacco Use Types Packs/Day Years Used Date Smoking Tobacco: Never Alcohol Use Standard Drinks/Week Comments Not Asked 0 (1 standard drink = 0.6 oz pur e alcohol) Comments No Sex and Gender Information Value Date Recorded Sex Assigned at Not on file Legal Sex Female 5:43 AM TELEVISION REPAIRMAN Gender Identity Not on file Sexual Orientation [...] documented as of this encounter Care Teams Rn Transitional Relationship Specialty Start Date End Date Alvarez Prabhakar MD [address] [place] [phone] PCP - General 12/12/11 documented as of this encounter
--- OUTSIDE RECORDS SUMMARY | 2025-05-23 08:50 | XMS_ITS | Encounter Summary ---
Author Organization [facility] Address [address] [facility] [place] [address] Care Team Providers Care Tow Picker Name Role Phone Alvarez Prabhakar MD Primary Care Provider [phone] Reason for Visit * Reason Onset Date Comments MEDICATION REFILL 07/14/2017 Encounter Details Date Type Department Care Team (Late st Contact Info) Description 07/14/2017 Refill [facility] Pediatrics - Endocrinology [address] [place] [address] Breana Olivas MD MEDICATION REFILL Social History Tobacco Use Types Packs/Day Years Used Date Smoking Tobacco: Never Alcohol Use Standard Drinks/Week Comments Not Asked 0 (1 standard drink = 0.6 oz pur e alcohol) Comments No Sex and Gender Information Value Date Recorded Sex Assigned at Not on file Legal Sex Female 5:43 AM FUR TANNER Gender Identity Not on file Sexual Orientation [...] Indicated Resolved Time COVID-19 Under Investigation 03/03/2021 03/03/202103/0303/03/2021 11:11 AM CDT documented as of this encounter Care Teams Tow Picker Relationship Specialty Start Date End Date Alvarez Prabhakar MD [address] [place] [phone] PCP - General 12/12/11 documented as of this encounter
--- OUTSIDE RECORDS SUMMARY | 2025-05-23 08:50 | XMS_ITS | Encounter Summary ---
Author Organization [facility] Address [address] [facility] [address] Care Team Providers Care Shore Working Supervisor Name Role Phone Alvarez Prabhakar MD Primary Care Provider [phone] Encounter Details Date Type Department Care Team (Late st Contact Info) Description 11/12/2022 Telephone [facility] Pediatrics - Diabetes [address] [address] Breana Olivas MD Social History Tobacco Use Types Packs/Day Years Used Date Smoking Tobacco: Never Smokeless Tobacco: Never Alcohol Use Standard Drinks/Week Comments Never 0 (1 standard drink = 0.6 oz pur e alcohol) Comments No Sex and Gender Information Value Date Recorded Sex Assigned at Not on file Legal Sex Female 5:43 AM SENIOR MEDIA DIRECTOR Gender Identity Not on file Sexual Orientation Not on file documented as of this encounter Functional Status * Is person deaf or have serious hearing difficulty? Answer Date of Assessment Author No 03/04/2021 6:41 PM Winston Aburto am, RN * Is person blind or have serious difficulty seeing? Answer Date of Assessment Author No 03/04/2021 6:41 PM Winston Aburto am, RN * Does person have serious difficulty walking/climbing stairs? Answer Date of Assessment Author No 03/04/2021 6:41 PM CDWinston Alan am, RN * Does person have difficulty dressing/bathing? Answer Date of Assessment Author No 03/04/2021 6:41 PM Winstno Aburto am, RN * Does person have difficulty doing errands alone? Answer Date of Assessment Author No 03/04/2021 6:41 PM Winston Aburto am, RN documented as of this encounter Mental Status * Does person have difficulty concentrating/remembering/making decisions? Answer Entry Date Author No 03/04/2021 6:41 PM Winston Aburto am, RN documented in this encounter Miscellaneous Notes * Telephone Encounter [...] of taking her to the emergency room. OR MEDIA DIRECTOR * Telephone Encounter - Subha Ivey RN [...] no changes made today. I asked for Aanid to call 11/25/22, for further review. Current doses: B 1:7 L 1:7 D 1:7 Mealtime correction of 1 Unit per 40 over 150: BS 151-190 1 Unit BS 191-230 2 Units BS 231-270 3 Units BS 271-310 4 Units BS >350 5 Units Lantus: 18 units OR MEDIA DIRECTOR * Telephone Encounter - YfnKadeem mc - 11/12/2022 3:36 PM CST Met with [...] this time. New refills sent to provider. OR MEDIA DIRECTOR documented in this encounter Plan of Treatment Not on file documented as of this encounter Visit Diagnoses Not on filedocumented in this encounter Care Teams Shore Working Supervisor Relationship Specialty Start Date End Date Alvarez Prabhakar MD [address] [place] [address] PCP - General 12/12/11 documented as of this encounter
--- OUTSIDE RECORDS SUMMARY | 2025-05-23 08:50 | XMS_ITS | Encounter Summary ---
Author Organization [facility] Address [address] [facility] [place] [address] Care Team Providers Care Spray Unit Feeder Name Role Phone Alvarez Prabhakar MD Primary Care Provider [phone] Reason for Visit * Reason Onset Date Comments MEDICATION REFILL 11/12/2022 Encounter Details Date Type Department Care Team (Late st Contact Info) Description 11/12/2022 Refill [facility] Pediatrics - Diabetes [facility] [address] [place] [address] Rosalva Moyer, REGULATORY ASSISTANT-COMMERCIAL LINES MANAGER [address] [place] [address] MEDICATION REFILL Social History Tobacco Use Types Packs/Day Years Used Date Smoking Tobacco: Never Smokeless Tobacco: Never Alcohol Use Standard Drinks/Week Comments Never 0 (1 standard drink = 0.6 oz pur e alcohol) Comments No Sex and Gender Information Value Date Recorded Sex Assigned at Not on file Legal Sex Female 5:43 AM CUSTOMER ASSISTANCE REPRESENTATIVE Gender Identity Not on file Sexual Orientation Not on file documented as of this encounter Functional Status * Is person deaf or have serious hearing difficulty? Answer Date of Assessment Author No 03/04/2021 6:41 PM CDWinston Alan am, RN * Is person blind or [...] Aburto am, RN documented in this encounter Plan of Treatment Not on file documented as of this encounter Visit Diagnoses Diagnosis Type 1 diabetes mellitus without complication (HCC)- Primary Type I (juvenile type) diabetes mellitus without mention of complication, not stated as uncontrolled documented in this encounter Care Teams Spray Unit Feeder Relationship Specialty Start Date End Date Alvarez Prabhakar MD [address] [place] [phone] PCP - General 12/12/11 documented as of this encounter
--- OUTSIDE RECORDS SUMMARY | 2025-05-23 08:50 | XMS_ITS | Encounter Summary ---
Author Organization [facility] Address [address] [facility] [place] [address] Care Team Providers Care Sccm Administrator Name Role Phone Alvarez Prabhakar MD Primary Care Provider [phone] Reason for Visit * Reason Comments Refill Request Encounter Details Date Type Department Care Team (Late st Contact Info) Description 08/19/2022 Refill [facility] Pediatrics - Diabetes [address] [address] Brendan Zafar MD [address] [place] [phone] Refill Request Social History Tobacco Use Types Packs/Day Years Used Date Smoking Tobacco: Never Smokeless Tobacco: Never Alcohol Use Standard Drinks/Week Comments Never 0 (1 standard drink = 0.6 oz pur e alcohol) Comments No Sex and Gender Information Value Date Recorded Sex Assigned at Not on file Legal Sex Female 5:43 AM STREETCAR OPERATOR Gender Identity Not on file Sexual [...] of Assessment Author No 03/04/2021 6:41 PM CDT Winston Cui am, RN * Is person blind or have serious difficulty seeing? Answer Date of Assessment Author No 03/04/2021 6:41 PM CDT Winston Cui am, RN * Does person have serious difficulty walking/climbing stairs? Answer Date of Assessment Author No 03/04/2021 6:41 PM CDT Winston Cui am, RN * Does person have difficulty dressing/bathing? Answer Date of Assessment Author No 03/04/2021 6:41 PM CDT Winston Cui am, RN * Does person have difficulty doing errands alone? Answer Date of Assessment Author No 03/04/2021 6:41 PM CDT Winston Cui am, RN documented as of this encounter Mental Status * Does person have difficulty concentrating/remembering/making decisions? Answer Entry Date Author No 03/04/2021 6:41 PM CDT Winston Cui am, RN documented in this encounter Plan of Treatment Not on file documented as of this encounter Visit Diagnoses Diagnosis Type 1 diabetes mellitus without complication (HCC) Type I (juvenile type) diabetes mellitus without mention of complication, not stated as uncontrolled documented in this encounter Care Teams Sccm Administrator Relationship Specialty Start Date End Date Alvarez Prabhakar MD [address] [place] [address] PCP - General 12/12/11 documented as of this encounter
--- OUTSIDE RECORDS SUMMARY | 2025-05-23 08:51 | XMS_ITS | Encounter Summary ---
Author Organization [facility] Address [address] [facility] [place] [address] Care Team Providers Care Electric Repair Supervisor Name Role Phone Alvarez Prabhakar MD Primary Care Provider [phone] Encounter Details Date Type Department Care Team (Late st Contact Info) Description 03/28/2021 Telephone [facility] Pediatrics - Endocrinology [address] [place] [address] Brendan Zafar MD [address] [place] [phone] Social History Tobacco Use Types Packs/Day Years Used Date Smoking Tobacco: Never Smokeless Tobacco: Never Alcohol Use Standard Drinks/Week Comments Never 0 (1 standard drink = 0.6 oz pur e alcohol) Comments No Sex and Gender Information Value Date Recorded Sex Assigned at Not on file Legal Sex Female 5:43 AM BONDING MACHINE OPERATOR Gender Identity Not on file [...] Entry Date Author No 03/04/2021 6:41 PM CDWinston Alan am, RN documented in this encounter Miscellaneous Notes * Telephone Encounter - Linda Torres RN - 03/28/2021 8:41 AM CDT PA sent to [employer] for [employer]. documented in this encounter Plan of Treatment Not on file documented as of this encounter Visit Diagnoses Not on filedocumented in this encounter Care Teams Electric Repair Supervisor Relationship Specialty Start Date End Date Alvarez Prabhakar MD [address] [place] [address] PCP - General 12/12/11 documented as of this encounter
--- OUTSIDE RECORDS SUMMARY | 2025-05-23 08:51 | XMS_ITS | Encounter Summary ---
Author Organization [facility] Address [address] [place] [address] Care Team Providers Care Drainage Engineer Name Role Phone Alvarez Prabhakar MD Primary Care Provider Reason for Visit * Reason Onset Date Comments MEDICATION REFILL 08/11/2014 Encounter Details Date Type Department Care Team (Late st Contact Info) Description 08/11/2014 Refill [facility] Pediatrics - Diabetes [address] [address] Breana Olivas MD MEDICATION REFILL Social History Tobacco Use Types Packs/Day Years Used Date Smoking Tobacco: Never Assessed Comments Unknown Sex and Gender Information Value Date Recorded Sex Assigned at Not on file Legal Sex Female 5:43 AM BIOPROCESS DEVELOPMENT ENGINEER Gender Identity Not on file Sexual [...] documented as of this encounter Care Teams Drainage Engineer Relationship Specialty Start Date End Date Alvarez Prabhakar MD [address] [place] [address] PCP - General 12/12/11 documented as of this encounter
--- OUTSIDE RECORDS SUMMARY | 2025-05-23 08:51 | XMS_ITS | Encounter Summary ---
Author Organization [facility] Address [address] [place] [address] Care Team Providers Care Director Industrial Relations Name Role Phone Alvarez Prabhakar MD Primary Care Provider Reason for Visit * Reason Onset Date Comments Blood Sugar Problem 09/21/2020 Encounter Details Date Type Department Care Team (Late st Contact Info) Description 09/21/2020 Telephone [facility] Pediatrics - Diabetes Mgmt [address] [place] [address] Kory Lopez, WENDI-WATCH ENGINEER [address] [place] [id number] Blood Sugar Problem Social History Tobacco Use Types Packs/Day Years Used Date Smoking Tobacco: Never Smokeless Tobacco: Never Alcohol Use Standard Drinks/Week Comments Not Asked 0 (1 standard drink = 0.6 oz pur e alcohol) Comments No Sex and Gender Information Value Date Recorded Sex Assigned at Not on file Legal Sex Female 5:43 AM BAG END SEWER Gender Identity Not on file Sexual Orientation [...] for ketones and call back via the legal secretary receptionist. documented in this encounter Plan of Treatment Not on file documented as of this encounter Visit Diagnoses Not on filedocumented in this encounter Additional Health Concerns Infection Onset Date Last Indicated Resolved Time COVID-19 Under Investigation 03/03/2021 03/03/2021 03/03/2021 11:11 AM CDT documented as of this encounter Care Teams Director Industrial Relations Relationship Specialty Start Date End Date Alvarez Prabhakar MD [address] [place] [address] PCP - General 12/12/11 documented as of this encounter
--- OUTSIDE RECORDS SUMMARY | 2025-05-23 08:51 | XMS_ITS | Encounter Summary ---
Author Organization [facility] Address [address] [place] [address] Care Team Providers Care Criminal Justice Program Director Name Role Phone Alvarez Prabhakar MD Primary Care Provider Encounter Details Date Type Department Care Team (Late st Contact Info) Description 11/24/2019 Telephone [facility] Pediatrics - Diabetes [id number] [place] [address] Breana Olivas MD Social History Tobacco Use Types Packs/Day Years Used Date Smoking Tobacco: Never Smokeless Tobacco: Never Alcohol Use Standard Drinks/Week Comments Not Asked 0 (1 standard drink = 0.6 oz pur e alcohol) Comments No Sex and Gender Information Value Date Recorded Sex Assigned at Not on file Legal Sex Female 5:43 AM YARD JOCKEY Gender Identity Not on file Sexual Orientation Not on file documented as of this encounter Miscellaneous Notes * Telephone Encounter - Linda Torres RN - 11/24/2019 5:37 PM CST We received a request from [employer] regarding Vicoria's Novolog pen fill and that Humalog is actually the preferred brand per insurance. Called Stormy @ [phone] - [facility] for family to call back. JOCKEY documented in this encounter Plan of Treatment Not on file documented as of this encounter Visit Diagnoses Not on filedocumented in this encounter Additional Health Concerns Infection Onset Date Last Indicated Resolved Time COVID-19 Under Investigation 03/03/2021 03/03/2021 03/03/2021 11:11 AM CDT documented as of this encounter Care Teams Criminal Justice Program Director Relationship Specialty Start Date End Date Alvarez Prabhakar MD [address] [place] [address] PCP - General 12/12/11 documented as of this encounter
--- OUTSIDE RECORDS SUMMARY | 2025-05-23 08:51 | XMS_ITS | Encounter Summary ---
Author Organization [facility] Address [address] [facility] [place] [address] Care Team Providers Care Farm Equipment Technician Name Role Phone Alvarez Prabhakar MD Primary Care Provider [phone] Reason for Visit * Reason Onset Date Comments MEDICATION REFILL 12/11/2022 Encounter Details Date Type Department Care Team (Late st Contact Info) Description 12/11/2022 Refill [facility] Pediatrics - Diabetes Mgmt [address] [place] [id number] Isis Munguia MD [address] [place] [id number] MEDICATION REFILL Social History Tobacco Use Types Packs/Day Years Used Date Smoking Tobacco: Never Smokeless Tobacco: Never Alcohol Use Standard Drinks/Week Comments Never 0 (1 standard drink = 0.6 oz pur e alcohol) Comments No Sex and Gender Information Value Date Recorded Sex Assigned at Not on file Legal Sex Female 5:43 AM AIRPORT OPERATIONS SUPERVISOR Gender Identity Not on file Sexual Orientation Not on file documented as of this encounter Functional Status * Is person deaf or have serious hearing difficulty? Answer Date of Assessment Author No 12/10/2022 8:53 PM Xochilt Payne RN * Is person blind or have serious difficulty seeing? Answer Date of Assessment Author No 12/10/2022 8:53 PM AIRPORT OPERATIONS SUPERVISOR Xochilt Gibbons RN * Does person have serious difficulty walking/climbing stairs? Answer Date of Assessment Author No 12/10/2022 8:53 PM AIRPORT OPERATIONS SUPERVISOR Xochilt Gibbons RN * Does person have difficulty dressing/bathing? Answer Date of Assessment Author No 12/10/2022 8:53 PM AIRPORT OPERATIONS SUPERVISOR Xochilt Gibbons RN * Does person have difficulty doing errands alone? Answer Date of Assessment Author No 12/10/2022 8:53 PM AIRPORT OPERATIONS SUPERVISOR Xochilt Gibbons RN documented as of this encounter Mental Status * Does person have difficulty concentrating/remembering/making decisions? Answer Entry Date Author No 12/10/2022 8:53 PM AIRPORT OPERATIONS SUPERVISOR Xochilt Gibbons RN documented in this encounter Miscellaneous Notes * Telephone Encounter - Isis Munguia MD - 12/11/2022 2:46 PM AIRPORT OPERATIONS SUPERVISOR Prescription for Humalog filed with 3 refills. Patient last seen in October and does not have follow up in place. Please contact patient (as is 17) to set up follow up with Bree Moyer or Dr Olivas in January. ORT OPERATIONS SUPERVISOR documented in this encounter Plan of Treatment Not on file documented as of this encounter Visit Diagnoses Diagnosis Type 1 diabetes mellitus without complication (HCC) Type I (juvenile type) diabetes mellitus without mention of complication, not stated as uncontrolled documented in this encounter Care Teams Farm Equipment Technician Relationship Specialty Start Date End Date Alvarez Prabhakar MD [address] [place] [address] PCP - General 12/12/11 documented as of this encounter
--- OUTSIDE RECORDS SUMMARY | 2025-05-23 08:51 | XMS_ITS | Encounter Summary ---
Author Organization [facility] Address [address] [place] [address] Care Team Providers Care Slot Tag Inserter Name Role Phone Alvarez Prabhakar MD Primary Care Provider [phone] Reason for Visit * Reason Onset Date Comments MEDICATION REFILL 11/28/2019 Encounter Details Date Type Department Care Team (Late st Contact Info) Description 11/28/2019 Refill [facility] Pediatrics - Diabetes [id number] [place] [address] Breana Olivas MD MEDICATION REFILL Social History Tobacco Use Types Packs/Day Years Used Date Smoking Tobacco: Never Smokeless Tobacco: Never Alcohol Use Standard Drinks/Week Comments Not Asked 0 (1 standard drink = 0.6 oz pur e alcohol) Comments No Sex and Gender Information Value Date Recorded Sex Assigned at Not on file Legal Sex Female 5:43 AM COMMERCIAL LENDING RELATIONSHIP MANAGER Gender Identity Not on file Sexual Orientation Not on file documented as of this encounter Miscellaneous Notes * Telephone Encounter - Linda Torres, RN - 11/28/2019 11:20 AM CST Following up on several faxes we have received from [employer] about changing Anaid's rapid acting insulin to Humalog due to insurance preference. LMOM, asking for a call back. Order placed for Humalog. ERCIAL LENDING RELATIONSHIP MANAGER documented in this encounter Plan of Treatment Not on file documented as of this encounter Visit Diagnoses Not on filedocumented in this encounter Additional Health Concerns Infection Onset Date Last Indicated Resolved Time COVID-19 Under Investigation 03/03/2021 03/03/2021 03/03/2021 11:11 AM CDT documented as of this encounter Care Teams Slot Tag Inserter Relationship Specialty Start Date End Date Alvarez Prabhakar MD [address] [place] [address] PCP - General 12/12/11 documented as of this encounter
--- OUTSIDE RECORDS SUMMARY | 2025-05-23 08:51 | XMS_ITS | Encounter Summary ---
Author Organization [facility] Address [address] [place] [address] Care Team Providers Care Pharmacovigilance Safety Expert Name Role Phone Alvarez Prabhakar MD Primary Care Provider [phone] Reason for Visit * Reason Onset Date Comments MEDICATION REFILL 06/20/2014 Encounter Details Date Type Department Care Team (Late st Contact Info) Description 06/20/2014 Refill [facility] Pediatrics - Diabetes [address] [address] Breana Olivas MD MEDICATION REFILL Social History Tobacco Use Types Packs/Day Years Used Date Smoking Tobacco: Never Assessed Comments Unknown Sex and Gender Information Value Date Recorded Sex Assigned at Not on file Legal Sex Female 5:43 AM MITIGATION SUPERVISOR Gender Identity Not on file Sexual [...] documented as of this encounter Care Teams Pharmacovigilance Safety Expert Relationship Specialty Start Date End Date Alvarez Prabhakar MD [address] [place] [address] PCP - General 12/12/11 documented as of this encounter
--- OUTSIDE RECORDS SUMMARY | 2025-05-23 08:51 | XMS_ITS | Clinical Summary ---
Author Organization [facility] Address [address] [facility] Attn: Epic Prelude ADT [place] [address] Care Team Providers Care Linter Saw Sharpener Name Role Phone Unavailable Primary Care Provider Unavailabl e Medications insulin glargine (Lantus Solostar U-100 Insulin) 100 unit/mL pen syringe INJECT 18 UNITS UNDER THE SKIN ONCE NIGHTLY 15 mL 5 05/20/2024 10:59 AM CDT 08/19/20 23 Active Blood-Glucose Meter,Continuou s (Dexcom G6 Director Of Elementary Education) USE DIRECTED 1 Each 05/18/20 23 Active Blood-Glucose Transmitter (Dexcom G6 Transmitter) Device USE 1 EACH EVERY 90 DAYS 1 Each 3 06/29/20 23 Active Blood-Glucose Transmitter (Dexcom G6 Transmitter) Device USE 1 EACH EVERY 90 DAYS 1 Each 3 08/03/20 23 Active Acetone, Urine, Test (Ketostix) Strip USE NEEDED (USE WHEN BLOOD SUGAR IS GREATER THAN 250 OR WHEN ILL) 100 Strip 4 08/03/20 23 Active lancets 33 gauge USE 1 LANCET DIRECTED 200 Each 3 08/03/20 23 Active Blood-Glucose Sensor (Dexcom G6 Sensor) Device USE 1 SENSOR UNDER THE SKIN EVERY 10 DAYS 3 Each 5 05/18/2024 11:27 AM CDT 06/25/20 23 Active lancets (Accu-Chek Softclix Lancets) USE FOR BLOOD GLUCOSE MONITORING 4-6 TIMES DAILY 200 Each 11 05/22/20 23 Active glucagon (Baqsimi) 3 mg/spray Gibbs, Non-Aerosol Gibbs 3 mg into the nose as needed (administer as directed for severe low blood sugar) 1 Each 11/09/20 23 Active blood sugar diagnostic (OneTouch Verio test strips) Strip Use to test blood sugar 1-2 times per day while on Dexcom 100 Strip 5 05/20/2024 10:59 AM CDT 12/04/19 24 Active fluconazole (DIFLUCAN) 150 mg tablet Take 1 Tablet (150 mg) by mouth every 72 hours 2 Tablet 05/20/2024 10:59 AM CDT 05/12/20 24 Active glucagon (Baqsimi) 3 mg/spray Gibbs, Non-Aerosol Administer 1 spray into one nostril as needed (low blood sugars) 2 Each 3 09/16/2024 7:46 PM CDT 09/05/20 24 Active insulin pump cart,auto,BT-cn tr (Omnipod 5 G6 Intro Kit, Gen 5,) Cartridge Continuous glucose delivery system 1 Each 09/16/2024 7:46 PM CDT 09/05/20 24 Active insulin pump cart,automated, BT (Omnipod 5 G6 Pods, Gen 5,) Cartridge Change pod every 3 days 10 Each 3 09/16/2024 11:55 AM CDT 09/05/20 24 Active OneTouch Verio test strips Strip Check blood sugar 4 times daily 400 Each 3 01/30/2025 6:49 PM CDT 09/05/20 24 Active insulin glargine (LANTUS) 100 unit/mL pen syringe Inject 18 Units under the skin nightly 15 mL 3 11/11/2024 5:17 PM RACEHORSE TRAINER 11/09/20 24 Active Blood-Glucose Sensor (Dexcom G6 Sensor) Device CHANGE EVERY 10 DAYS 3 Each 11 04/30/2025 12:23 PM CDT 11/14/20 24 Active insulin lispro (HumaLOG KwikPen Insulin) 100 unit/mL pen syringe INJECT 1 UNIT FOR EVERY 7 CARBOHYDRATES, WITH A MAX OF 40 UNITS PER DAY. 45 mL 1 04/08/2025 2:09 PM CDT 11/30/19 25 Active Dexcom G6 Sensor Device Change sensor every 10 days 10 Each 3 02/12/2025 11:55 AM CDT 12/21/19 25 Active Dexcom G6 Transmitter Device Change transmitter every 90 days 3 Each 3 04/08/2025 2:09 PM CDT 12/21/19 25 Active insulin pump cart,auto,BT,G6 /7 (Omnipod 5 G6-G7 Pods, Gen 5,) Cartridge Change pod every 3 days. 10 Each 3 05/08/2025 3:27 PM CDT 05/01/20 25 Active insulin pump cart,auto,BT,G6 /7 (Omnipod 5 G6-G7 Pods, Gen 5,) Cartridge Change pod every 3 days 10 Each 3 04/06/2025 2:46 PM CDT 12/21/19 25 025 Discontinu ed(Reorder ) amoxicillin-cla vulanate (AUGMENTIN) 875-125 mg tablet Take 1 Tablet by mouth every 12 hours for 10 days. 20 Tablet 04/14/2025 4:56 PM CDT 04/14/20 25 025 Social History Tobacco Use Types Packs/Day Years Used Date Smoking Tobacco: Never Assessed Adolescent Education Answer Date Record ed Getting School Help Needed Not on file 06/13 Comments Unknown Sex and Gender Information Value Date Recorded Sex Assigned at Not on file Legal Sex Female 1:02 PM CDT Gender Identity Not on file Sexual Orientation Not on file Plan of Treatment Health Maintenance Due Date Last Done Comments CHLAMYDIA SCREENING (ANNUAL) 11-24 YEARS 2015 HPV VACCINES (1 - 3-dose series) 2019 DIABETES ANNUAL FOOT EXAM 2022 DIABETES ANNUAL RETINAL EXAM 2022 01/25/2019 DIABETES MICROALBUMIN ANNUAL SCREEN 2022 LDL CHOLESTEROL ANNUAL 2022 DTAP/TDAP/TD VACCINES (1 - Tdap) 2023 HEPATITIS B VACCINES (1 of 3 - 19+ 3-dose series) 2023 INFLUENZA VACCINE (#1) 2024 , 09/19/2020, 09/09/2016, Additional history exists COVID-19 Vaccine (2 - 2023-2 5 season) 2024 02/26/2021 DIABETES HBA1C Q 6 MONTHS 06/20/20252024, 09/05/2024, 05/25/2024, Additional history exists Insurance RX [employer] Commercial RX [employer] Member Subscriber Plan / Payer (Ef fective 2024-Present) Name:Anaid Whitaker Relation to Subscriber:Self Name:Anaid Whitaker Subscriber ID:Not on file Payer ID:Not on file Type:Not on file Address: [address]
--- OUTSIDE RECORDS SUMMARY | 2025-05-23 08:51 | XMS_ITS | Encounter Summary ---
Author Organization [facility] Address [address] [place] [address] Care Team Providers Care Commercial Assistant Name Role Phone Alvarez Prabhakar MD Primary Care Provider Encounter Details Date Type Department Care Team (Late st Contact Info) Description 09/21/2020 Telephone [facility] Pediatrics - Endocrinology [address] [place] [address] Kory Lopez APRN-COMPUTER SCIENCES PROFESSOR [address] [place] [address] Social History Tobacco Use Types Packs/Day Years Used Date Smoking Tobacco: Never Smokeless Tobacco: Never Alcohol Use Standard Drinks/Week Comments Not Asked 0 (1 standard drink = 0.6 oz pur e alcohol) Comments No Sex and Gender Information Value Date Recorded Sex Assigned at Not on file Legal Sex Female 5:43 AM SUPERVISOR MACHINE SETTER Gender Identity Not on file Sexual Orientation [...] documented as of this encounter Care Teams Commercial Assistant Relationship Specialty Start Date End Date Alvarez Prabhakar MD [address] [place] [address] PCP - General 12/12/11 documented as of this encounter
--- OUTSIDE RECORDS SUMMARY | 2025-05-23 08:51 | XMS_ITS | Encounter Summary ---
Author Organization [facility] Address [address] [facility] [place] [address] Care Team Providers Care Roustabout Crew Name Role Phone Alvarez Prabhakar MD Primary Care Provider Encounter Details Date Type Department Care Team (Late st Contact Info) Description 08/31/2012 Telephone [facility] Pediatrics - Diabetes [id number] [place] [address] Leeanne Croft, ENGINE HOUSE HELPER-MINING CONSULTANT Retired Social History Tobacco Use Types Packs/Day Years Used Date Smoking Tobacco: Never Assessed Comments Unknown Sex and Gender Information Value Date Recorded Sex Assigned at Not on file Legal Sex Female 5:43 AM PROGRESSIVE ASSEMBLER AND FITTER Gender Identity Not on file Sexual Orientation [...] documented as of this encounter Care Teams Roustabout Crew Relationship Specialty Start Date End Date Alvarez Prabhakar MD [address] [place] [address] PCP - General 12/12/11 documented as of this encounter
--- OUTSIDE RECORDS SUMMARY | 2025-05-23 08:51 | XMS_ITS | Clinical Summary ---
Author Organization [facility] Address [address] [place] [address] Care Team Providers Care Wafer Cleaner Name Role Phone Alvarez Prabhakar MD Primary Care Provider [phone] Source Comments [facility],non-owned Affiliates and Associated Physician Practices is amultiple site organization consisting of ambulatory clinics and hospital sitesin [place], [place], [place] and [place]. This disclosure is being madepursuant to the Care Everywhere program and may not contain all information available regarding this patient. Last updated 18.[facility] [employer] Allergies No known active allergies Medications * This document contains information received from the source organization and may not represent a complete record from that organization. * Be aware that medications may not be up to date on this document. Alwaysverify current medications with the patient. Blood Glucose Monitoring Suppl (ACCU-CHEK DRAKE SMARTVIEW) W/DEVICE KIT kitIndications:D iabetes mellitus type 1 (HCC) Use for blood glucose monitoring. 1 Kit 0 08/18/20 12 Active acetone,urine, (KETOSTIX) stripIndications :Type 1 diabetes mellitus without complication (HCC) Use as directed for urine ketone checks if blood sugar above 250 or if ill. Dispense one bottle for school and one for home. 100 strip 3 04/12/20 18 Active injection device-insulin (NOVOPEN ECHO) deviceIndication s:Type 1 diabetes mellitus without complication (HCC) Use for insulin delivery. 1 device 1 10/20/20 18 Active glucagon (GLUCAGON EMERGENCY) injectionIndicat ions:Type 1 diabetes mellitus without complication (HCC) Inject 1 mg into muscle as directed for severe low blood sugar reaction. 2 kit 07/11/20 Active Blood Glucose Monitoring Suppl (OrangeSlyceIO IQ SYSTEM) w/Device KIT Use 1 kit as directed 2 kit 12/16/19 20 Active insulin syringe-needle (BD ULTRAFINE II) 31G X 5/16 0.3 ML syringe USE FOR INJECTION DAILY 100 Each 04/17/20 20 Active Insulin Syringe-Needle U-100 (SAFESNAP INSULIN SYRINGE) 30G X 5/16 0.5 ML MISC Use 1 syringe as directed 50 Each 5 03/11/20 21 Active oxybutynin CR 24hr (DITROPAN-XL) 10 MG tablet Take 1 (one) tablet by mouth at bedtime 30 tablet 11 06/20/20 21 Active Accu-Chek FastClix LancetsIndicatio ns:Type 1 diabetes mellitus without complication (HCC) Use for blood glucose monitoring 4-6 times/day. 200 Each 11 05/22/20 23 Active Continuous Blood Gluc Cellars Supervisor (Dexcom G6 Cellars Supervisor) DEVIIndications: Type 1 diabetes mellitus without complication (HCC) Use 1 Each as directed 1 Each 06/09/20 23 Active acetone,urine, (Ketostix) stripIndications :Type 1 diabetes mellitus without complication (HCC) Use as needed (use when blood sugar is greater than 250 or when ill. ) 100 strip 4 08/03/20 23 Active Insulin Pen Needle (BD Pen Needle Drake U/F) 32G X 4 MM MISCIndications: Type 1 diabetes mellitus without complication (HCC) Use 4-6 Each once daily 200 Each 08/03/20 23 Active OneTouch Delica Lancets 33G MISCIndications: Type 1 diabetes mellitus without complication (HCC) Use 1 Each as directed 200 Each 3 08/03/20 23 Active Lantus SoloStar pen INJECT 18 UNITS UNDER SKIN ONCE NIGHTLY 15 mL 5 08/19/20 23 Active insulin lispro (HumaLOG KwikPen) 100 UNIT/ML penIndications:T ype 1 diabetes mellitus without complication (HCC) INJECT 1 UNIT FOR EVERY 7 CARBOHYDRATES, WITH A MAX OF 40 UNITS PER DAY. 45 mL 1 11/06/20 23 Active Glucagon (Baqsimi Two Pack) 3 MG/DOSE POWD Saxton 3 mg into the nose as needed (adminsiter as directed for severe low blood sugar) 1 Each 11/09/20 23 Active blood glucose (OneTouch Verio) test stripIndications :Type 1 diabetes mellitus without complication (HCC) Use to test blood sugar 1-2 times per day while on Dexcom 100 strip 5 12/04/19 24 Active Continuous Blood Gluc Sensor (Dexcom G6 Sensor) MISCIndications: Type 1 diabetes mellitus without complication (HCC) Inject 1 Each subcutaneously every 10 days 3 Each 5 12/04/19 24 Active Continuous Blood Gluc Transmit (Dexcom G6 Transmitter) MISCIndications: Type 1 diabetes mellitus without complication (HCC) Use 1 Each Every 90 days 1 Each 2 12/04/19 24 Active Active Problems Problem Noted Date Diagnosed [...] diflucan Assessment & Plan (11/22/2020 4:14 PM PERIOPERATIVE NURSE): - bladder and bowel dysfunction and nocturnal [...] meal snacking without taking insulin. Per the [place] [employer] practice guidelines [Diabetes Care 2015 [...] months Assessment & Plan (11/22/2020 10:33 AM PERIOPERATIVE NURSE): 1) no changes today 2) keep up [...] history of type one diabetes presenting to [facility] with polyuria, polydipsia, nausea, vomiting, in DKA [...] gap closes - Q1 hour glucose checks Assessment & Plan (12/10/2022 10:10 PM PERIOPERATIVE NURSE): Assessment: Anaid is a 17y/o with Type [...] Activity: - PT/OT Social: - Consults to extension professor, nutrition, drug abuse social worker Labs: Per endocrine team Access: [...] Activity: - PT/OT Social: - Consults to extension professor, nutrition, drug abuse social worker Labs: Hourly glucoses, BMP/Ph q4h alternating with VBG + lytes q4h, urine qvoid, CK once Access: PIV Immunizations Immunization Administration Dates Next Due Covid MediciNova primary monoval ent 12+ yr 0.3mL Purple cap 02/26/2021 INFLUENZA VACCINE 10/27/2013,08/18/2012 INFLUENZA VACCINE, QUADR. (F LUZONE; FLULAVAL; FLUARIX; AFLURIA QUADRIVALENT; 6MO+), 0.5 ML (IIV4) 08/31/2023,09/19/2020,09/09/2016,2014 Family History Medical History Relation Name Comments [...] of Binge Drinking Not on file 07/2023 Comments No Sex and Gender Information Value Date Recorded Sex Assigned at Not on file Legal Sex Female 5:43 AM PERIOPERATIVE NURSE Gender Identity Not on file Sexual Orientation Not on file Last Filed Vital Signs Vital Sign Reading Time Taken Comments Blood Pressure 108/64 08/31/2023 10:54 AM CDT Pulse 104 08/02/2023 8:56 AM CDT Temperature 37.6 C (99.7 F) 08/02/2023 8:56 AM CDT Respiratory Rate 16 08/02/2023 8:56 AM CDT Oxygen Saturation 95% 08/02/2023 8:56 AM CDT Inhaled Oxygen Concentration - - Weight 52.4 kg (115 lb 8.3 oz) 08/31/2023 10:54 AM CDT Height 159.6 cm (5' 2.84) 08/31/2023 10:54 AM C DT Body Mass Index 20.57 08/31/2023 10:54 AM CDT Plan of Treatment Health Maintenance Due Date Last Done Comments HIV SCREENING 2019 HPV VACCINE (1 - 3-dose series) 2019 CHLAMYDIA/GONORRHEA SCREENING 2020 MENINGOCOCCAL (Group B) VACCINE SHARED DECISION-MAKING (1 of 2 - Standard) 2020 DIABETES RETINOPATHY SCREENING 01/25/2021 01/25/2019, 12/22/2017, 12/22/2017 HEPATITIS C SCREENING 10/08/2022 DIABETES-FOOT EXAM WITH MONOFILAMENT 2022 DTAP/TDAP/TD VACCINES (1 - Tdap) 2023 HEPATITIS B VACCINE (1 of 3 - 19+ 3-dose series) 2023 PNEUMOCOCCAL VACCINE (1 of 2 - PCV) 2023 DIABETES-HGB A1C 03/01/2024 08/31/2023, 08/2023, 05/18/2023, Additional history exists COVID-19 VACCINE ( - season) 2024 08/25/2022, 03/27/2021, 02/26/2021 DIABETES-SERUM CREATININE 08/02/20242022, 08/01/2023, 08/01/2023, Additional history exists DEPRESSION SCREENING 11/23/2024 DIABETES - URINE PROTEIN SCREENING 11/23/2024 05/18/2023, 07/09/2021, 09/19/2020, Additional history exists INFLUENZA VACCINE (Season Ended) 2025 08/31/2023, 08/25/2022, 09/19/2020, Additional history exists ZOSTER VACCINE (1 of 2) 2054 HIB VACCINE Aged Out No longer eligi ble based on patient's age to complete this topic MENINGOCOCCAL GROUPS A/C/Y/W VACCINE Aged Out No longer eligible based on patient's age to complete this topic Procedures Procedure Name Priority Date/Time Associated Diagnosis Comments HEMOGLOBIN A1C - POCT INTERFACED Routine 08/31/2023 10:53 AM CDT BASIC METABOLIC PANEL (CALCIUM TOTAL) Timed 08/02/2023 3:47 AM CDT MICROALB/CREAT RATIO URINE RANDOM PANEL Routine 05/18/2023 9:36 AM CDT Type 1 diabetes mellitus without complication from Last 3 Months or Most Recently Relevant to Health Maintenance Results * (ABNORMAL) HEMOGLOBIN A1C - POCT INTERFACED (08/31/2023 10:53 AM CDT) Pathologist [facility] Hemoglobin A1C POCT 7.2(H) <5.7 % 08/31/2023 11:00 AM CDT [facility] Estimated Average Glucose 160 mg/dL 08/31/2023 11:00 AM CDT [facility] Blood BLOOD SPECIMEN / Unknown 08/31/2023 10:53 AM CDT 08/31/2023 11:00 AM CDT Narrative [facility] - 08/31/2023 11:00 AM CDT HbA1c Interpretation: Normal: < 5.7% Pre-diabetes: 5.7-6.4% Diabetes: Equal to or greater than 6.5% This test should only be used to monitor, not diagnose diabetes. Test results diagnostic of diabetes should be repeated by another method with a different assay principle for confirmation. Treatment target values recommended by ADA and other clinical organizations should be used to evaluate metabolic control in patients. Patients with a hemoglobin of <7 or >24 should not be tested using this method. Patients known to have these conditions should be assayed by a test employing a different assay principle. Glycated hemoglobin F is not measured by the DCA HbA1c assay. At very high levels of hemoglobin F (> 10%), HbA1c is lower than expected. Patients with HbS or HbE should not be tested using this device. HbS or HbE cause a higher result than expected. Conditions such as hemolytic anemia, polycythemia, homozygous and HbC, can result in decreased life span of the red blood cells, which causes HbA1c results to be lower than expected. The Siemens DCA assay for the measurement of HbA1c is a National Glycohemoglobin Standardization Program (NGSP) certified method. Breana Olivas MD LAB - POINT OF CARE ORDERABLES Final Result [facility] [place] [address] * (ABNORMAL) BASIC METABOLIC PANEL (CALCIUM TOTAL) (08/02/2023 3:47 AM CDT) BUN 13 7 - 26 mg/dL 08/02/2023 4:25 AM [facility] Creatinine 0.66 0.56 - 0.96 mg/dL 08/02/2023 4:25 AM [facility] Sodium 133(L) 136 - 145 mmol/L 08/02/2023 4:25 AM [facility] Potassium 3.9 3.5 - 4.5 mmol/L 08/02/2023 4:25 AM [facility] Chloride 105 98 - 107 mmol/L 08/02/2023 4:25 AM [facility] CO2 22 22 - 29 mmol/L 08/02/2023 4:25 AM [facility] Glucose 289(H) 70 - 115 mg/dL 08/02/2023 4:25 AM [facility] Calcium 8.9 8.4 - 10.2 mg/dL 08/02/2023 4:25 AM [facility] Anion Gap 6 6 - 16 08/02/2023 4:25 AM [facility] BUN/Creatinine Ratio 20 7 - 23 08/02/2023 4:25 AM [facility] Osmolality Calculated 287 270 - 300 mOsm/kg 08/02/2023 4:25 AM [facility] eGFR by CKD-EPI >90 >=90 mL/min/1.7 3 m2 08/02/2023 4:25 AM [facility] Blood BLOOD SPECIMEN / Unknown Lab Venipuncture / Unknown 08/02/2023 3:47 AM CDT 08/02/2023 3:58 AM T Breana Olivas MD LAB - CHEMISTRY ORDERABLES Mariela l Result Performing Organization Address City/[facility]/ZIP Co de Phone Number [facility] [address] [place] [address], [place] [phone] * MICROALB/CREAT RATIO URINE RANDOM PANEL (05/18/2023 9:36 AM CDT) Albumin Random Urine 10.2 Not Established ug/mL 05/18/2023 10:51 AM CDT [facility] Creatinine Urine 188 Not Established mg/dL 05/18/2023 10:51 AM CDT [facility] Urine Albumin/Creati nine Ratio 5 <30 mg/g 05/18/2023 10:51 AM CDT [facility] Urine URINE SPECIMEN OBTAINED BY CLEAN CATCH PROCEDURE / Unknown Collection / Unknown 05/18/2023 9:36 AM CDT 05/18/2023 10:28 AM CDT Breana Olivas MD LAB - URINE CHEMISTRY ORDERABLE S Final Result Performing Organization Address [facility] Co de Phone Number [facility] [address] [place] [phone], [place] [phone] from Last 3 Months or Most Recently Relevant to Health Maintenance [address] [place] [address] [facility] [place] [address] [facility] [employer] [facility] Address: [address] [place] [address] ANTHEM Advance Directives * Full Code (Latest Code Status on File) Date Activated Date Inactivated Comments 08/01/2023 12:50 PM 08/02/2023 11:27 AM * Full Code Date Activated Date Inactivated Comments 12/10/2022 6:34 PM 12/11/2022 4:33 PM * Full Code Date Activated Date Inactivated Comments 03/03/2021 11:41 AM 03/04/2021 8:29 PM Care Teams Wafer Cleaner Relationship Specialty Start Date End Date Alvarez Prabhakar MD [address] [place] [phone] PCP - General 12/12/11
--- OUTSIDE RECORDS SUMMARY | 2025-05-23 08:51 | XMS_ITS | Encounter Summary ---
Author Organization [facility] Address [address] [place] [address] Care Team Providers Care Field Human Resources Manager Name Role Phone Alvarez Prabhakar MD Primary Care Provider [phone] Encounter Details Date Type Department Care Team (Late st Contact Info) Description 06/08/[address] 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 Answer Date of Assessment Author No 12/10/2022 8:53 PM Xochilt Payne RN * Is person blind or have serious difficulty seeing? Answer Date of Assessment Author No 12/10/2022 8:53 PM Xochilt Payne RN * Does person have serious difficulty walking/climbing stairs? Answer Date of Assessment Author No 12/10/2022 8:53 PM Xochilt Payne RN * Does person have difficulty dressing/bathing? Answer Date of Assessment Author No 12/10/2022 8:53 PM Xochilt Payne RN * Does person have difficulty doing errands alone? Answer Date of Assessment Author No 12/10/2022 8:53 PM Xochilt Payne RN documented as of this encounter Mental Status * Does person have difficulty concentrating/remembering/making decisions? Answer Entry Date Author No 12/10/2022 8:53 PM Xochilt Payne RN documented in this encounter Miscellaneous Notes * Telephone Encounter - Subha Ivey RN - 06/16/2023 10:21 AM CDT I called mom to try to schedule a transition visit via phone call for [facility], but no answer. LMOMasking for call back from [facility] or [facility]. * Telephone Encounter - Kadeem Coulter - 06/08/2023 8:36 AM CDT PA for Dexcom G6 crew chief sent to [place] rosario Hayden [facility] through [employer] documented in this encounter Plan of Treatment Not on file documented as of this encounter Visit Diagnoses Not on filedocumented in this encounter Care Teams Field Human Resources Manager Relationship Specialty Start Date End Date Alvarez Prabhakar MD [address] [place] [address] PCP - General 12/12/11 documented as of this encounter
--- OUTSIDE RECORDS SUMMARY | 2025-05-23 08:51 | XMS_ITS | Encounter Summary ---
Author Organization [facility] Address [address] [place] [address] Care Team Providers Care Editorial Director Name Role Phone Alvarez Prabhakar MD Primary Care Provider [phone] Encounter Details Date Type Department Care Team (Late st Contact Info) Description 04/15/2022 Telephone [facility] Pediatrics - Diabetes [address] [address] Breana Olivas MD Social History Tobacco Use Types Packs/Day Years Used Date Smoking Tobacco: Never Smokeless Tobacco: Never Alcohol Use Standard Drinks/Week Comments Never 0 (1 standard drink = 0.6 oz pur e alcohol) Comments No Sex and Gender Information Value Date Recorded Sex Assigned at Not on file Legal Sex Female 5:43 AM MEDICAL TECHNOLOGIST BLOOD BANK Gender Identity Not on file Sexual Orientation [...] Cui am, RN documented in this encounter Miscellaneous Notes * Telephone Encounter - Brooklyn Neely RN - 04/15/2022 4:18 PM CDT Received a fax from [employer] stating a PA was needed and secondary does not cover this plan. Script went through primary insurance for a copay $35 but mom wants sec to pay Sent a PA through covermymeds to [employer] for Dexcom G6 sensor. Primary insurance: [employer] Secondary: [email or web address] documented in this encounter Plan of Treatment Not on file documented as of this encounter Visit Diagnoses Not on filedocumented in this encounter Care Teams Editorial Director Relationship Specialty Start Date End Date Alvarez Prabhakar MD [address] [place] [address] PCP - General 12/12/11 documented as of this encounter
--- OUTSIDE RECORDS SUMMARY | 2025-05-23 08:51 | XMS_ITS | Encounter Summary ---
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 Answer Date of Assessment Author No 08/01/2023 1:35 PM CDT Yg Sawyer RN * Is person blind or have serious difficulty seeing? Answer Date of Assessment Author No 08/01/2023 1:35 PM CDT Yg Sawyer RN * Does person have serious difficulty walking/climbing stairs? Answer Date of Assessment Author No 08/01/2023 1:35 PM CDT Yg Sawyer RN * Does person have difficulty dressing/bathing? Answer Date of Assessment Author No 08/01/2023 1:35 PM CDT Yg Sawyer RN * Does person have difficulty doing errands alone? Answer Date of Assessment Author No 08/01/2023 1:35 PM BUBBAT Yg Sawyer RN documented as of this encounter Mental Status * Does person have difficulty concentrating/remembering/making decisions? Answer Entry Date Author No 08/01/2023 1:35 PM Yg Morgan RN documented in this encounter Miscellaneous Notes * Telephone Encounter - Kadeem Coulter - 12/04/2023 8:49 AM CST Mom reached out needing a referral to Dr. Jack Fuentes with [facility] medical [facility] in [facility]. Also rx for supplies sent to provider to sign. R PRESS OPERATOR documented in this encounter Plan of Treatment Not on file documented as of this encounter Visit Diagnoses Not on filedocumented in this encounter Care Teams Periodontist Relationship Specialty Start Date End Date Alvarez Prabhakar MD [address] [place] [address] PCP - General 12/12/11 documented as of this encounter
--- OUTSIDE RECORDS SUMMARY | 2025-05-23 08:51 | XMS_ITS | Encounter Summary ---
Author Organization [facility] Address [address] [place] [address] Care Team Providers Care Physician Recruiter Name Role Phone Alvarez Prabhakar MD Primary Care Provider [phone] Reason for Visit * Reason Onset Date Comments MEDICATION REFILL 03/25/2013 Encounter Details Date Type Department Care Team (Late st Contact Info) Description 03/25/2013 Refill [facility] Pediatrics - Diabetes [facility] [address] [place] [address] Kory Lopez APRN-SPLUNK DASHBOARD DEVELOPER [address] [place] [address] MEDICATION REFILL Social History Tobacco Use Types Packs/Day Years Used Date Smoking Tobacco: Never Assessed Comments Unknown Sex and Gender Information Value Date Recorded Sex Assigned at Not on file Legal Sex Female 5:43 AM 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 KNIFE TRIMMER Gender Identity Not on file Sexual Orientation Not on file documented as of this encounter Plan of Treatment Not on file documented as of this encounter Visit Diagnoses Not on filedocumented in this encounter Additional Health Concerns Infection Onset Date Last Indicated Resolved Time COVID-19 Under Investigation 03/03/2021 03/03/2021 03/03/2021 11:11 AM CDT documented as of this encounter Care Teams Physician Recruiter Relationship Specialty Start Date End Date Alvarez Prabhakar MD [address] [place] [phone] PCP - General 12/12/11 documented as of this encounter
--- OUTSIDE RECORDS SUMMARY | 2025-05-23 08:51 | XMS_ITS | Clinical Summary ---
Author Organization [facility] [address] [place] [id number] Care Team Providers Care Wood Model Maker Name Role Phone Mitchell Grubbs MD Primary Care Provider [phone] Allergies No known active allergies Medications lancing [...] MONITORING 4-6 TIMES DAILY 05/22/20 23 Active Dexcom G6 Transmitter device Place on the skin 06/29/20 23 Active blood-glucose meter,continuous (Dexcom G6 Class A Truck Driver) misc as directed 05/18/20 23 Active insulin syringe-needle U-100 0.5 mL 30 gauge x 5/16 syringe 1 Syringe by Not Applicable route as directed 03/11/20 21 Active acetone, urine, test strip by Not Applicable route as needed 08/03/20 23 Active acetone, urine, test strip Use as directed for urine ketone checks if blood sugar above 250 or if ill. Dispense one bottle for school and one for home. 05/21/20 18 Active glucagon 1 mg kit Inject 1 mg into muscle as directed for severe low blood sugar reaction. 07/11/20 Active insulin admin supplies insulin pen Use for insulin delivery. 10/20/20 Active insulin syringe-needle U-100 0.3 mL 31 gauge x 5/16 syringe USE FOR INJECTION DAILY 04/17/20 Active glucagon (Baqsimi) 3 mg/actuation spray,non-aeroso lIndications:Typ [...] 15 mL 3 11/09/20 24 2024 Active HumaLOG 100 unit/mL pen for injectionIndicat ions:Type 1 diabetes mellitus with hyperglycemia (HCC) INJECT 1 UNIT FOR EVERY 7 CARBOHYDRATES, WITH A MAX OF 40 UNITS PER DAY. 45 mL 1 11/30/19 Active Dexcom G6 Transmitter deviceIndication s:Type 1 diabetes mellitus with hyperglycemia (HCC) Change transmitter every 90 days 3 each 12/21/19 25 Active Dexcom G6 Sensor deviceIndication s:Type 1 diabetes mellitus with hyperglycemia (HCC) Change sensor every 10 days 10 each 12/21/19 25 Active Omnipod 5 G6-G7 Pods, Gen 5, cartridgeIndicat ions:Type 1 diabetes mellitus with hyperglycemia (HCC) Change pod every 3 days 10 each 3 05/01/20 25 Active insulin pump cart,auto,BT,G6/ 7 (Omnipod 5 G6-G7 Pods, Gen 5,) cartridgeIndicat ions:Type 1 diabetes mellitus with hyperglycemia (HCC) Change pod every 3 days 10 each 3 12/21/19 25 2024 Discontinued Active Problems Problem Noted Date Diagnosed Date Insulin pump status 12/21/2024 Assessment & Plan (12/21/2024 11:02 AM SENIOR IT ASSISTANT): Pump setting changes: -add 3a-9a basal rate at 0.6 units/hr -keep all other basal rates at 0.7 units/hr -change correct above from 140 to 120 -decreased correction factor from 50 to 45 -increased carb ratio from 10 to 12 Current medications: Humalog via Omnipod insulin pump BR 12a 0.7, 3a 0.6, 9a 0.7 CR 12 CF 45 Target 110-120 AIT 3 hours Have long acting , basal insulin ( e.g. Lantus, NPH) and insulin syringes as back up in case of pump failure. If you have to take your insulin pump off for more than 12 hours, start taking basal insulin every 24 h (take 80 % of the 24 hour insulin delivered to you via insulin pump as calculated based on your basal rates) and inject meal time insulin by injections, calculating the same way you do with your pump bolus (according to carb intake and blood sugar readings). Type 1 diabetes mellitus with hyperglycemia 01/2024 Assessment & Plan (12/21/2024 11:01 AM SENIOR IT ASSISTANT): Chronic problem. A1c remains at goal & improved from 8.7% 09/05/24 to now 6.9%. Doing well with insulin pump. Troubleshooting hyperglycemia while on pump therapy reviewed. Importance of rotating sites discussed. Insulin pump settings reviewed and adjusted. Pump setting changes: -add 3a-9a basal rate at 0.6 units/hr -keep all other basal rates at 0.7 units/hr -change correct above from 140 to 120 -decreased correction factor from 50 to 45 -increased carb ratio from 10 to 12 Current medications: Humalog via Omnipod insulin pump BR 12a 0.7, 3a 0.6, 9a 0.7 CR 12 CF 45 Target 110-120 AIT 3 hours UTD on labs. DM eye exam due. Reports 2022 August Burnett or Martin; 2nd request letter sent to get copy of report. [...] skin breakdown and infection. Assessment & Plan (09/05/2024 2:16 PM CDT): [...] suggested the patient is to start using i.TV to communicate with us. I think she would be a good candidate for an insulin pump and she seems to be interested I contacted the [employer] rep, Shirley Carrillo . She will contact [...] on file Legal Sex Female 6:57 AM SENIOR IT ASSISTANT Gender Identity Not on file Sexual Orientation Not on file Obstetrics History Last Filed Vital Signs Vital Sign Reading Time Taken Comments Blood Pressure 100/60 12/21/2024 10:17 AM SENIOR IT ASSISTANT Pulse 105 12/21/2024 10:17 AM SENIOR IT ASSISTANT Temperature - - Respiratory Rate 14 12/21/2024 10:17 AM SENIOR IT ASSISTANT Oxygen Saturation - - Inhaled Oxygen Concentration - - Weight 59.9 kg (132 lb) 12/21/2024 10:17 AM SENIOR IT ASSISTANT Height 157.5 cm (5' 2.01) 12/21/2024 10:[address] Body Mass Index 24.14 12/21/2024 10:17 AM SENIOR IT ASSISTANT Plan of Treatment Health Maintenance Due Date Last Done Comments Hepatitis C Screening 2004 TSH Level 2004 Pneumococcal vaccine <65 (1 of 1 - PPSV23) 2010 04/14/2005, 02/10/2005, 2004 Dilated Eye Exam 2014 Varicella Vaccines (1 of 2 - 13+ 2-dose series) 2017 HPV Vaccines (1 - 3-dose series) 2019 Meningococcal B Vaccine (1 o f 2 - Standard) 2020 Regular Well Visit/Exam 18-64 2022 Covid-19 Vaccine (4 - 2023-2 5 season) 2024 08/25/2022, 03/27/2021, 02/26/2021 Depression Screening 05/25/2025 05/25/2024 Hemoglobin A1C 06/20/2025 12/21/2024, 08/23, 05/25/2024, Additional history exists Influenza Vaccine (Season Ended) 2025 08/31/2023, 08/25/2022, 09/19/2020, Additional history exists Albumin Creatinine Ratio, Urine 09/05/2025 Foot Exam 09/05/2025 09/05/2024 Lipid Panel 09/05/2025 09/05/2024 eGFR 09/05/2025 09/05/2024 DTaP/Tdap/Td Vaccine (5 - Td or Tdap) 04/13/2034 04/13/2024, 04/14/2005, 02/10/2005, Additional history exists Hepatitis B Screening Completed 2004, 004 Meningococcal Vaccine Completed 09/02/2022 Procedures Procedure Name Priority Date/Time Associated Diagnosis Comments POCT HEMOGLOBIN A1C Routine 12/21/2024 1 0:20 AM SENIOR IT ASSISTANT Type 1 diabetes mellitus with hyperglycemia (HCC) EGFR Routine 09/05/2024 2:21 PM CDT Type 1 diabetes mellitus with hyperglycemia (HCC) LIPID PANEL Routine 09/05/2024 2:21 PM CDT Type 1 diabetes mellitus with hyperglycemia (HCC) ALBUMIN CREATININE RATIO, URINE Routine 09/05/2024 2:21 PM CDT Type 1 diabetes mellitus with hyperglycemia (HCC) from Last 3 Months or Most Recently Relevant to Health Maintenance Results * (ABNORMAL) POCT hemoglobin A1c (12/21/2024 10:20 AM SENIOR IT ASSISTANT) Pathologist [facility] Hemoglobin A1C, POC 6.9 4.0 - 5.6 % Blood 12/21/2024 10:2 0 AM SENIOR IT ASSISTANT us Devika Moise RISK OFFICER POINT OF CARE TEST ORDERA BLES Final Result * eGFR (09/05/2024 2:21 PM CDT) Pathologist [facility] eGFR >90 >=60 mL/min/1. 73 m2 Comment: Interpretive Data Reference Interval Normal >/= 90 mL/min/1.73m2 Mildly decreased* 60 - 89 mL/min/1.73m2 Mildly to moderately decreased 45 - 59 mL/min/1.73m2 Moderately to severely decreased 30 - 44 mL/min/1.73m2 Severely decreased 15 - 29 mL/min/1.73m2 Kidney Failure < 15 mL/min/1.73m2 *Relative to young adult level Estimated glomerular [...] 09/05/2024 8:46 PM CDT us Devika Moise RISK OFFICER LAB BLOOD ORDERABLES Mariela l Result Performing Organization Address [facility] Co de Phone Number [facility] [address] [place] [address] * Albumin Creatinine Ratio, Urine (09/05/2024 2:21 PM CDT) Albumin Ur 21.1 mg/L Comment: Interpretive Data No reference range established. Current interpretive data was last revised 2019. Creatinine Ur 190.3 mg/dL [facility] Comment: Interpretive Data No reference range established. Current interpretive data was last revised 2019. Albumin Creatinine Ratio, Ur 11 1 - 29 mg/g [facility] Urine 09/05/2024 2:21 PM CDT 09/05/2024 8:31 PM CDT us Devika Moise RISK OFFICER LAB URINE ORDERABLES Mariela l Result Performing Organization Address [facility]/ZIP Co de Phone Number [facility] [address] [place] [address] * Lipid panel (09/05/2024 2:21 PM CDT) Cholesterol 163 30 - 199 mg/dL Comment: Interpretive Data Ages < or = 19 years Acceptable: <170 mg/dL Borderline high: 170-199 mg/dL High: >or= 200 mg/dL Ages > or = 20 years Desirable: <200 mg/dL Borderline high: 200-239 mg/dL High: >or= 240 mg/dL Literature References: 1. Expert Panel on Integrated Guidelines for Cardiovascular Health and Risk Reduction in Children and Adolescents. Pediatrics 2011;128:S213 2. NCEP Expert Panel. Circulation 2004;110:227 Current Interpretive Data was last revised on 2018. Triglycerides 39 <=129 mg/dL [facility] Comment: Interpretive Data Ages < or = 9 years Acceptable: <75 mg/dL Borderline high: 75-99 mg/dL High: >or= 100 mg/dL Ages 10 to 20 years Acceptable: <90 mg/dL Borderline high: 90-129 mg/dL High: >or= 130 mg/dL Ages > or = 20 years Desirable: <150 mg/dL Borderline high: 150-199 mg/dL High: 200-499 mg/dL Very high: >or= 499 mg/dL Literature References: 1. Expert Panel on Integrated Guidelines for Cardiovascular Health and Risk Reduction in Children and Adolescents. Pediatrics 2011;128:S213 2. NCEP Expert Panel. Circulation 2004;110:227 Current Interpretive Data was last revised on 2018. HDL 76 >=45 mg/dL [facility] Comment: Interpretive Data Ages < or = 19 years Acceptable: >45 mg/dL Borderline low: 40-45 mg/dL Low: <40 mg/dL Ages > or = 20 years Desirable: >or= 60 mg/dL Low: <40 mg/dL Literature References: 1. Expert Panel on Integrated Guidelines for Cardiovascular Health and Risk Reduction in Children and Adolescents. Pediatrics 2011;128:S213 2. NCEP Expert Panel. Circulation 2004;110:227 Current Interpretive Data was last revised on 2018. LDL, calculated 78 <=129 mg/dL [facility] Comment: Interpretive Data Ages < or = 19 years Acceptable: <110 mg/dL Borderline high: 110-129 mg/dL High: >or= 130 mg/dL Ages > or = 20 years Optimal: <100 mg/dL Near optimal: 100-129 mg/dL Borderline high: 130-159 mg/dL High: >160 mg/dL Calculated using the Americo LDL-C estimating equation. This equation was implemented on 2024. Prior to this date LDL-C was estimated using the Friedewald equation. Literature References: 1. Expert Panel on Integrated Guidelines for Cardiovascular Health and Risk Reduction in Children and Adolescents. Pediatrics 2011;128:S213 2. NCEP Expert Panel. Circulation 2004;110:227 3. Americo M et al. ATIF Cardiol. 2020 March 23;5(5):540-548. doi: 10.1001/jamacardio.2020.0013 Current Interpretive Data was last revised on 2024. Non-HDL Cholesterol 87 mg/dL [facility] Comment: Interpretive Data Ages < or = 19 years Acceptable: <120 mg/dL Borderline high: 120-144 mg/dL High: >145 mg/dL Ages > or = 20 years When triglycerides are >200 mg/dL, Non-HDL cholesterol is a secondary target of therapy with treatment goals that are 30 mg/dL greater than the LDL cholesterol target. Literature References: 1. Expert Panel on Integrated Guidelines for Cardiovascular Health and Risk Reduction in Children and Adolescents. Pediatrics 2011;128:S213 2. NCEP Expert Panel. Circulation 2004;110:227 Current Interpretive Data was last revised on 2018. Chol/HDL ratio 2 [facility] Blood 09/05/2024 2:21 PM CDT 09/05/2024 8:32 PM CDT Devika Moise NP LAB BLOOD ORDERABLES Mariela avilez Result [facility] [id number] Department [place] [address] from Last 3 Months or Most Recently Relevant to Health Maintenance Insurance [facility] Care Teams Wood Model Maker Relationship Specialty Start Date End Date Mitchell Grubbs MD [address] [facility] [address] [place] [address] PCP - General Internal Medicine 01/19/25
--- OUTSIDE RECORDS SUMMARY | 2025-05-23 08:51 | XMS_ITS | Referral Summary ---
Author Organization [facility] Physician Office Building [address] [place] [id number] Care Team Providers Care Home Support Worker Name Role Phone Mitchell Grubbs MD Primary Care Provider [phone] Allergies No known active allergies Medications lancing [...] 06/29/20 23 Active blood-glucose meter,continuous (Dexcom G6 Fabric Cutter) misc as directed 05/18/20 23 Active insulin [...] 12/21/2024 Assessment & Plan (12/21/2024 11:02 AM PAPER CUTTER): Pump setting changes: -add 3a-9a basal rate [...] 01/2024 Assessment & Plan (12/21/2024 11:01 AM PAPER CUTTER): Chronic problem. A1c remains at goal & [...] suggested the patient is to start using XOG to communicate with us. I think she would be a good candidate for an insulin pump and she seems to be interested I contacted the [employer] rep, Shirley Carrillo . She will contact [...] on file Legal Sex Female 6:57 AM PAPER CUTTER Gender Identity Not on file Sexual Orientation Not on file Last Filed Vital Signs Vital Sign Reading Time Taken Comments Blood Pressure 100/60 12/21/2024 10:17 AM PAPER CUTTER Pulse 105 12/21/2024 10:17 AM PAPER CUTTER Temperature - - Respiratory Rate 14 12/21/2024 10:17 AM PAPER CUTTER Oxygen Saturation - - Inhaled Oxygen Concentration - - Weight 59.9 kg (132 lb) 12/21/2024 10:17 AM PAPER CUTTER Height 157.5 cm (5' 2.01) 12/21/2024 10:[address] Body Mass Index 24.14 12/21/2024 10:17 AM PAPER CUTTER Plan of Treatment Not on file Procedures Procedure Name Priority Date/Time Associated Diagnosis Comments POCT HEMOGLOBIN A1C Routine 12/21/2024 1 0:20 AM PAPER CUTTER Type 1 diabetes mellitus with hyperglycemia (HCC) [...] (ABNORMAL) POCT hemoglobin A1c (12/21/2024 10:20 AM PAPER CUTTER) Hemoglobin A1C, POC 6.9 4.0 - 5.6 % Blood 12/21/2024 10:2 0 AM PAPER CUTTER us Devika Moise NP POINT OF CARE TEST ORDERA BLES Final Result * eGFR (09/05/2024 2:21 PM CDT) eGFR [...] 2:21 PM CDT 09/05/2024 8:46 PM CDT Devika Moise NP LAB BLOOD ORDERABLES Mariela l Result [facility] [id number] Department [place] [address] * Albumin Creatinine Ratio, Urine (09/05/2024 2:21 PM CDT) Albumin Ur 21.1 mg/L Comment: Interpretive Data No reference range established. Current interpretive data was last revised 2019. Creatinine Ur 190.3 mg/dL [facility] Comment: Interpretive Data No reference range established. Current interpretive data was last revised 2019. Albumin Creatinine Ratio, Ur 11 1 - 29 mg/g [facility] Urine 09/05/2024 2:21 PM CDT 09/05/2024 8:31 PM CDT us Devika Moise NP LAB URINE ORDERABLES Mariela avilez Result [facility] [address] Department [place] [address] * Lipid panel (09/05/2024 2:21 PM CDT) [...] on 2018. Triglycerides 39 <=129 mg/dL [facility] Comment: Interpretive Data Ages < or = [...] 09/05/2024 8:32 PM CDT us Devika Moise GALLERY MANAGER LAB BLOOD ORDERABLES Mariela l Result [facility] [address] Department [place] [address] from Last 3 Months or Most Recently Relevant to Health Maintenance Insurance [employer] Care Teams Home Support Worker Relationship Specialty Start Date End Date Mitchell Grubbs MD [address] [facility] [address] [place] [address] PCP - General Internal Medicine 01/19/25
--- OUTSIDE RECORDS SUMMARY | 2025-05-23 08:51 | XMS_ITS | Encounter Summary ---
Author Organization [facility] Address [address] [place] [address] Care Team Providers Care Maintenance Director Name Role Phone Alvarez Prabhakar MD Primary Care Provider Reason for Visit * Reason Onset Date Comments MEDICATION REFILL 07/10/2015 Encounter Details Date Type Department Care Team (Late st Contact Info) Description 07/10/2015 Refill [facility] Pediatrics - Diabetes [id number] [place] [address] Leeanne Croft, CUSTOMER SERVICE VOICE-FLIGHT INSTRUCTOR Retired MEDICATION REFILL Social History Tobacco Use Types Packs/Day Years Used Date Smoking Tobacco: Never Assessed Comments No Sex and Gender Information Value Date Recorded Sex Assigned at Not on file Legal Sex Female 5:43 AM FIRER BOILER Gender Identity Not on file Sexual Orientation Not on file documented as of this encounter Plan of Treatment Not on file documented as of this encounter Visit Diagnoses Not on filedocumented in this encounter Additional Health Concerns Infection Onset Date Last Indicated Resolved Time COVID-19 Under Investigation 03/03/2021 03/03/2021 03/03/2021 11:11 AM CDT documented as of this encounter Care Teams Maintenance Director Relationship Specialty Start Date End Date Alvarez Prabhakar MD [address] [place] [id number] PCP - General 12/12/11 documented as of this encounter
--- OUTSIDE RECORDS SUMMARY | 2025-05-23 08:51 | XMS_ITS | Encounter Summary ---
Author Organization [facility] Address [address] [place] [address] Care Team Providers Care Computer Repair Engineer Name Role Phone Alvarez Prabhakar MD Primary Care Provider [phone] Reason for Visit * Reason Onset Date Comments General 11/29/2019 Encounter Details Date Type Department Care Team (Late st Contact Info) Description 11/29/2019 Telephone [facility] Pediatrics - Diabetes [facility] [address] [place] [address] Kory Lopez APRN-ENGRAVER TIRE MOLD [address] [place] [phone] General Social History Tobacco Use Types Packs/Day Years Used Date Smoking Tobacco: Never Smokeless Tobacco: Never Alcohol Use Standard Drinks/Week Comments Not Asked 0 (1 standard drink = 0.6 oz pur e alcohol) Comments No Sex and Gender Information Value Date Recorded Sex Assigned at Not on file Legal Sex Female 5:43 AM SHOE HANDLER Gender Identity Not on file Sexual Orientation Not on file documented as of this encounter Miscellaneous Notes * Telephone Encounter - Jones Mcconnell RN - 11/29/2019 1:19 PM CST I returned mom's call [phone], she acknowledged the message we left regarding formulary changefrom Novolog to Pierre and is fine with it. She reports new RX benefit internet technology manager, and isn't sure if they will do mail order or local pharmacy. I told Linda noted that an order was put in. If local phramacy is needed, mom would like RX sent to [facility]. Mom said they still havea month supply of Novolog. HANDLER documented in this encounter Plan of Treatment Not on file documented as of this encounter Visit Diagnoses Not on filedocumented in this encounter Additional Health Concerns Infection Onset Date Last Indicated Resolved Time COVID-19 Under Investigation 03/03/2021 03/03/2021 03/03/2021 11:11 AM CDT documented as of this encounter Care Teams Computer Repair Engineer Relationship Specialty Start Date End Date Alvarez Prabhakar MD [address] [place] [phone] PCP - General 12/12/11 documented as of this encounter
--- OUTSIDE RECORDS SUMMARY | 2025-05-23 08:51 | XMS_ITS | Encounter Summary ---
Author Organization [facility] Address [address] [place] [address] Care Team Providers Care Maintenance Craftsman Name Role Phone Alvarez Prabhakar MD Primary Care Provider [phone] Reason for Visit * Reason Onset Date Comments Blood Sugar Problem 12/04/2015 Encounter Details Date Type Department Care Team (Late st Contact Info) Description 12/04/2015 Telephone [facility] Pediatrics - Diabetes Mgmt [address] [place] [address] Kory Lopez APRN-HIGH SCHOOL BIOLOGY TEACHER [address] [place] [id number] Blood Sugar Problem Social History Tobacco Use Types Packs/Day Years Used Date Smoking Tobacco: Never Alcohol Use Standard Drinks/Week Comments Not Asked 0 (1 standard drink = 0.6 oz pur e alcohol) Comments No Sex and Gender Information Value Date Recorded Sex Assigned at Not on file Legal Sex Female 5:43 AM DYNAMIC BALANCER Gender Identity Not on file Sexual Orientation Not on file documented as of this encounter Miscellaneous Notes * Telephone Encounter - Lizeth Garrett RN - 12/04/2015 12:05 PM DYNAMIC BALANCER Received message from school nurse that Anaid is in Nurse David's office with blood sugar of [phone] ext [phone]. Per nurse she is asymptomatic and she is checking ketones now. Nurse David'sstates ketones were trace. She states she already spoke with nurse from diabetes office this am prior to my call. No note so returned call at this time. MIC BALANCER * Telephone Encounter - Jones Mcconnell RN - 12/04/2015 12:04 PM CST Nurse called [phone]. Anaid's blood sugar is 416, ketones are trace, she is drinking water.No symptoms of illness. PLAN per injection/sick protocol: Give usual correction at lunch in addition to humalog for carbs. Check bg and ketones in 2 hours. Call for moderate-large ketones, vomiting, concerns. Notify pts mother of high bg. Nurse agreed. MIC BALANCER documented in this encounter Plan of Treatment Not on file documented as of this encounter Visit Diagnoses Not on filedocumented in this encounter Additional Health Concerns Infection Onset Date Last Indicated Resolved Time COVID-19 Under Investigation 03/03/2021 03/03/2021 03/03/2021 11:11 AM CDT documented as of this encounter Care Teams Maintenance Craftsman Relationship Specialty Start Date End Date Alvarez Prabhakar MD [address] [place] [phone] PCP - General 12/12/11 documented as of this encounter
--- OUTSIDE RECORDS SUMMARY | 2025-05-23 08:51 | XMS_ITS | Encounter Summary ---
Author Organization [facility] Address [address] [place] [address] Care Team Providers Care Newspaper Editor Name Role Phone Alvarez Prabhakar MD Primary Care Provider [phone] Reason for Visit * Reason Onset Date Comments General 06/15/2015 Encounter Details Date Type Department Care Team (Late st Contact Info) Description 06/15/2015 Telephone [facility] Pediatrics - Diabetes [id number] [place] [address] Kory Lopez APRN-BROADCAST OPERATIONS MANAGER [address] [place] [phone] General Social History Tobacco Use Types Packs/Day Years Used Date Smoking Tobacco: Never Assessed Comments No Sex and Gender Information Value Date Recorded Sex Assigned at Not on file Legal Sex Female 5:43 AM AUTOMOBILE ASSEMBLY SUPERVISOR Gender Identity Not on file Sexual Orientation Not on file documented as of this encounter Miscellaneous Notes * Telephone Encounter - Jones Mcconnell RN - 06/15/2015 8:59 AM CDT Received RX from [facility] for Dexcom CGM and supplies. I called home to discuss with parents. Want to update them with [facility] requirements for coverage so they are [...] documented as of this encounter Care Teams Newspaper Editor Relationship Specialty Start Date End Date Alvarez Prabhakar MD [address] [place] [address] PCP - General 12/12/11 documented as of this encounter
--- OUTSIDE RECORDS SUMMARY | 2025-05-23 08:51 | XMS_ITS | Encounter Summary ---
Author Organization [facility] Address [address] [place] [address] Care Team Providers Care Primary Care Nurse Name Role Phone Alvarez Prabhakar MD Primary Care Provider Encounter Details Date Type Department Care Team (Late st Contact Info) Description 07/18/2019 Telephone [facility] - Diabetes [address] [address] Gracie Cee, RN Social History Tobacco Use Types Packs/Day Years Used Date Smoking Tobacco: Never Smokeless Tobacco: Never Alcohol Use Standard Drinks/Week Comments Not Asked 0 (1 standard drink = 0.6 oz pur e alcohol) Comments No Sex and Gender Information Value Date Recorded Sex Assigned at Not on file Legal Sex Female 5:43 AM [employer] SPECIALIST Gender Identity Not on file Sexual Orientation Not on file documented as of this encounter Plan of Treatment Not on file documented as of this encounter Visit Diagnoses Not on filedocumented in this encounter Additional Health Concerns Infection Onset Date Last Indicated Resolved Time COVID-19 Under Investigation 03/03/2021 03/03/2021 03/03/2021 11:11 AM CDT documented as of this encounter Care Teams Primary Care Nurse Relationship Specialty Start Date End Date Alvarez Prabhakar MD [address] [place] [address] PCP - General 12/12/11 documented as of this encounter
--- NOTE | 2025-05-23 09:18 | ED_ITS ---
HPI - Recheck/Abnormal Lab/Rx General Chief Complaint: Recheck/Abnormal Lab/Rx <Meghna Rain PA-C - Last Filed: 05/23/25 13:12> Stated Complaint: hyperglycemia, type 1 diabetic BS 300s <Meghna Rain PA-C - Last Filed: 05/23/25 13:12> Time Seen by Provider: 05/23/25 08:57 <Meghna Rain PA-C - Last Filed: 05/23/25 13:12> Source: patient and old records reviewed <Meghna Rain PA-C - Last Filed: 05/23/25 13:12> Mode of arrival: ambulatory <RIN Varela Last Filed: 05/23/25 13:12> Limitations: no limitations <RIN Varela Last Filed: 05/23/25 13:12> History of Present Illness HPI narrative: Patient is a 19-year-old female who presents the ED with report of hyperglycemia. Patient has history of type 1 diabetes. Has an insulin pump and glucometer. Reports her BG have been elevated yesterday into today, 300s and above. She attempted to give herself additional insulin, but denied improvement of her blood sugars. Reports pain all over, body aches, fatigue, 1 episode of N/V. Denies significant abd pain, diarrhea, fevers, cough, cold sx's. Does note she is currently on her menstrual cycle. Hx of DKA in the last, last hospitalized October 2024 for DKA. States her current symptoms feel similar. <Meghna Rain PA-C - Last Filed: 05/23/25 13:12> Related Data Home Medications: Home Medications ?Medication ?Instructions ?Recorded ?Confirmed ?Last Taken ?Type blood-glucose sensor (Dexcom G6 11/14/24 05/23/25 Unknown History Sensor device) blood-glucose transmitter (Dexcom 11/14/24 05/23/25 Unknown History G6 Transmitter device) insulin pump cart,auto,BT,G6/7 11/14/24 05/23/25 Unknown History (Omnipod 5 G6-G7 Pods (Gen 5) subcutaneous cartridge) insulin pump cartridge,auto 11/14/24 05/23/25 Unknown History dose,BT,G6/G7 with controller subcutaneous (Omnipod 5 G6-G7 Intro Kit(Gen 5) subcutaneous cartridge and controller) glucagon 3 mg/actuation nasal 3 mg intranasal ONCE 05/23/25 05/23/25 Unknown History spray (Baqsimi) insulin lispro 100 unit/mL 1 sliding scale dose subcut TIDWM 05/23/25 05/23/25 05/23/25 History subcutaneous pen (Humalog KwikPen (U-100) Insulin) <Meghna Rain PA-C - Last Filed: 05/23/25 13:12> Allergies/Adverse Reactions: Allergies Allergy/AdvReac Type Severity Reaction Status Date / Time No Known Allergies Allergy Verified 05/23/25 08:53 <Meghna Rain PA-C - Last Filed: 05/23/25 13:12> Review of Systems 2 Review of Systems: All systems reviewed & are unremarkable except as noted in HPI. <Meghna Rain PA-C - Last Filed: 05/23/25 13:12> All systems reviewed & are unremarkable except as noted in HPI and below < Meghna Rain PA-C - Last Filed: 05/23/25 13:12> [facility] Past Medical History Medical History: Medical History Encounter for surveillance of other contraceptives Type 1 diabetes <Meghna Rain PA-C - Last Filed: 05/23/25 13:12> Family History Family History: Family History (Updated 05/23/25 @ 14:24 by Ana M Pennington RN) Grandparent Diabetes mellitus Grandparent Acute myocardial infarction Mother Hypertension Grandparent Breast cancer Grandparent Bladder cancer <RIN Varela Last Filed: 05/23/25 13:12> Social History Social History: Social History Smoking status: Never smoker Alcohol intake: never Substance use: never Do You Feel Safe in your Home?: Yes Lack of Transportation: No Lack of Food: Never True Current Housing: I Have Housing Concerned About Future Housing: No Difficulty Paying Gas/Electric Bills: No Difficulty Paying for Meds: No Currently Unemployed: No Education: High School Diploma/GED Difficulty w/ Childcare or Family Care: No Living arrangements: with family Occupation/Education: student Additional occupation/education comments: [employer] in high school Gender identity (if verbalized by the patient): Female Sexual Orientation (if Verbalized by the Patient): Bisexual Spiritual care concerns: No <Meghna Rain PA-C - Last Filed: 05/23/25 13:12> Exam 2 Narrative: GENERAL: Mildly ill appearing/somewhat lethargic, well-nourished, non-toxic, in no acute distress. HEAD: Normocephalic, atraumatic. RESPIRATORY: Airway patent, respirations mildly tachypneic. Clear to auscultation bilaterally, no rales, rhonchi, wheezing. CARDIOVASCULAR: Tachycardic with regular rhythm without murmurs, rubs, or gallops. ABDOMINAL: Soft, mild TTP in periumbilical region/lower abdomen, nondistended. Normoactive BS. MUSCULOSKELETAL: Moves all extremities. No gross deformities. SKIN: Warm, dry, normal color. NEURO: A&O X3. Speech clear. No ataxic movements. PSYCHIATRIC: Appropriate mood and affect. Normal interaction. <Meghna Rain PA-C - Last Filed: 05/23/25 13:12> Course [employer]AD[employer]ACHINE TENDER/PA Physician Supervision This visit was performed by both a physician and an APC. I performed all aspects of the MDM as documented. <Enio Hill MD - Last Filed: 05/23/25 15:55> Vital Signs Vital signs: Vital Signs Temperature 98.4 F 05/23/25 08:53 Pulse Rate 119 H 05/23/25 08:53 Respiratory Rate 25 H 05/23/25 08:53 Blood Pressure 122/59 L 05/23/25 08:53 Pulse Oximetry 100 05/23/25 08:53 Oxygen Delivery Room Air 05/23/25 08:53 Temperature 97.5 F L 05/23/25 14:22 Pulse Rate 112 H 05/23/25 14:22 Respiratory Rate 17 05/23/25 14:22 Blood Pressure 138/83 05/23/25 14:22 Pulse Oximetry 100 05/23/25 14:22 Oxygen Delivery Room Air 05/23/25 12:01 <Meghna Rain PA-C - Last Filed: 05/23/25 13:12> Vital Signs Temperature 98.4 F 05/23/25 08:53 Pulse Rate 119 H 05/23/25 08:53 Respiratory Rate 25 H 05/23/25 08:53 Blood Pressure 122/59 L 05/23/25 08:53 Pulse Oximetry 100 05/23/25 08:53 Oxygen Delivery Room Air 05/23/25 08:53 Temperature 97.5 F L 05/23/25 14:22 Pulse Rate 112 H 05/23/25 14:22 Respiratory Rate 17 05/23/25 14:22 Blood Pressure 138/83 05/23/25 14:22 Pulse Oximetry 100 05/23/25 14:22 Oxygen Delivery Room Air 05/23/25 12:01 <Enio Hill MD - Last Filed: 05/23/25 15:55> MDM - Recheck/Abnormal Lab/Rx MDM Narrative Medical decision making narrative: Patient presented to ED with elevated blood sugars, history of type 1 diabetes. Reporting fatigue, diffuse body aches, nausea, vomiting. Currently on menstrual cycle. Patient tachycardic and tachypneic upon arrival. Blood pressure stable. Afebrile. Mildly ill-appearing, somewhat lethargic. Initial blood sugar 278. ABG with pH of 7.328. PCO2 30.2. Bicarb 15.5. Cbc with blood cell count of 19.5. Neutrophil predominance. No bandemia. Stable H&H. CMP with blood sugar 304, bicarb 15, anion gap of 19. Beta hydroxybutyrate 2.19. 4+ ketones in urine. Patient is meeting criteria for DKA. Creatinine stable. No signs of infection on UA. Urine is negative. Chest x-ray clear. CT scan of abdomen/pelvis w/o acute findings. Patient's insulin pump was turned off in the ED. She was given 3L of fluid resuscitation. Repeat BMP: K 4.6 to 5.3. Bicarb 15 to 13 Anion gap down from 19 to 18. BG still nearly 300 Given insulin bolus and drip started. Will be admitted for further evaluation. Discussed case with Dr. Givens, botany technician, accepted to ICU. Discussed case with Madonna Adams [employer]ADING [employer]ACHINE TENDER, hospitalist, accepted patient for admission. Patient and family in agreement with plan. <ROSI Varela - Last Filed: 05/23/25 13:12> Medical Records Attestation: I reviewed the patient's medical records. <Meghna Rain PA-C - Last Filed: 05/23/25 13:12> Lab Data Attestation: I reviewed the patient's lab results. <Meghna Rain PA-C - Last Filed: 05/23/25 13:12> Result diagrams: 05/23/25 09:21 05/23/25 12:03 <RIN Varela Last Filed: 05/23/25 13:12> Labs: Lab Results 05/23/25 05/23/25 05/23/25 Range/Units 08:52 09:17 09:19 WBC (4.5-10.0) K/mm3 RBC (4.2-5.4) M/mm3 Hgb (12.0-15.0) g/dL Hct (37.0-47.0) % MCV (80-100) fl MCH (26-34) pg MCHC (32-36) g/dl RDW (11.5-14.5) % Plt Count (150-375) k/mm3 MPV (7.4-10.4) fl Immature Gran % (Auto) (0-0.5) % Neut % (Auto) (45.5-73.1) % Lymph % (Auto) (18.3-44.2) % [place] % (Auto) (2.6-8.5) % Eos % (Auto) (0-4.4) % Baso % (Auto) (0.2-1.2) % Lymph # (Auto) (0.9-3.2) K/mm3 [place] # (Auto) (0.1-0.6) K/mm3 Eos # (Auto) (0-0.3) K/mm3 Baso # (Auto) (0.0-0.1) K/mm3 Abs Immat Gran (auto) (0.00-0.031) K/mm3 Absolute Neuts (auto) (1.3-6.7) K/mm3 Absolute Nucleated RBC (0.0-0.012) K/mm3 Nucleated RBC % (0.0-0.2) % Methemoglobin (0-1.5) %THb Sodium (137-145) mmol/L Potassium (3.4-5.0) mmol/L Chloride (98-107) mmol/L Carbon Dioxide (22-30) mmol/L Anion Gap (4-12) mmol/L BUN (7-17) mg/dL Creatinine (0.7-1.0) mg/dL Estim Creat Clear Calc ml/min Estimated GFR (59 - ) Glucose (65-110) mg/dL POC Capillary Glucose 278 H (65-105) mg/dl Hemoglobin A1c (<5.7) % Calcium (8.4-10.2) mg/dL Phosphorus (2.5-4.5) mg/dL Magnesium (1.6-2.3) mg/dL Total Bilirubin (0.2-1.3) mg/dL AST (14-36) U/L ALT (6-35) U/L Alkaline Phosphatase (38-126) U/L Total Protein (6.3-8.2) g/dL Albumin (3.5-5.1) g/dL Beta-Hydroxybutyrate/Acetoacetate (0.02-0.27) mmol/L Urine Color Yellow (Yellow) Urine Appearance Cloudy H (Clear) Urine pH 5.5 (5.0-9.0) Ur Specific [place] 1.037 H (1.001-1.035) Urine Protein Trace (Negative) mg/dL Urine Glucose (UA) 3+ H (Negative) mg/dL Urine Ketones 4+ H (Negative) mg/dL Ur Blood (Man) 1+ H (Negative) Urine Nitrate Negative (Negative) Urine Bilirubin Negative (Negative) Urine Urobilinogen 0.2 (<2.0) mg/dL Leukocyte Esterase Rfl Negative (Negative) JENNIFER/UL Urine RBC 0-2 (0-2) /hpf Urine WBC 0-5 (0-3) /hpf Ur Squamous Epith Cells None seen (Few) /hpf Urine Bacteria None seen /hpf Urine Casts 0-2 POC Urine HCG, Qual Negative (Negative) Influenza A (RT-PCR) (Negative) Influenza B (RT-PCR) (Negative) RSV (RT-PCR) (Negative) SARS-CoV-2 RNA (RT-PCR) (Negative) 05/23/25 05/23/25 05/23/25 Range/Units 09:21 09:23 10:05 WBC 19.5 H (4.5-10.0) K/mm3 RBC 4.61 (4.2-5.4) M/mm3 Hgb 13.7 D (12.0-15.0) g/dL Hct 40.6 (37.0-47.0) % MCV 88.1 (80-100) fl MCH 29.7 (26-34) pg MCHC 33.7 (32-36) g/dl RDW 12.8 (11.5-14.5) % Plt Count 323 (150-375) k/mm3 MPV 9.6 (7.4-10.4) fl Immature Gran % (Auto) 0.4 (0-0.5) % Neut % (Auto) 85.6 H (45.5-73.1) % Lymph % (Auto) 8.9 L (18.3-44.2) % [place] % (Auto) 4.8 (2.6-8.5) % Eos % (Auto) 0.0 (0-4.4) % Baso % (Auto) 0.3 (0.2-1.2) % Lymph # (Auto) 1.74 (0.9-3.2) K/mm3 [place] # (Auto) 0.9 H (0.1-0.6) K/mm3 Eos # (Auto) 0.0 (0-0.3) K/mm3 Baso # (Auto) 0.1 (0.0-0.1) K/mm3 Abs Immat Gran (auto) 0.08 H (0.00-0.031) K/mm3 Absolute Neuts (auto) 16.7 H (1.3-6.7) K/mm3 Absolute Nucleated RBC 0.000 (0.0-0.012) K/mm3 Nucleated RBC % 0.0 (0.0-0.2) % Methemoglobin 0.4 (0-1.5) %THb Sodium 137 (137-145) mmol/L Potassium 4.6 (3.4-5.0) mmol/L Chloride 103 (98-107) mmol/L Carbon Dioxide 15 L (22-30) mmol/L Anion Gap 19 H (4-12) mmol/L BUN 18 H D (7-17) mg/dL Creatinine 0.75 (0.7-1.0) mg/dL Estim Creat Clear Calc 82 ml/min Estimated GFR > 60 (59 - ) Glucose 304 H (65-110) mg/dL POC Capillary Glucose (65-105) mg/dl Hemoglobin A1c 6.7 H (<5.7) % Calcium 9.8 (8.4-10.2) mg/dL Phosphorus 4.5 (2.5-4.5) mg/dL Magnesium 1.8 (1.6-2.3) mg/dL Total Bilirubin 1.1 (0.2-1.3) mg/dL AST 29 (14-36) U/L ALT 18 (6-35) U/L Alkaline Phosphatase 103 (38-126) U/L Total Protein 8.3 H (6.3-8.2) g/dL Albumin 4.8 (3.5-5.1) g/dL Beta-Hydroxybutyrate/Acetoacetate 2.19 H (0.02-0.27) mmol/L Urine Color (Yellow) Urine Appearance (Clear) Urine pH (5.0-9.0) Ur Specific [place] (1.001-1.035) Urine Protein (Negative) mg/dL Urine Glucose (UA) (Negative) mg/dL Urine Ketones (Negative) mg/dL Ur Blood (Man) (Negative) Urine Nitrate (Negative) Urine Bilirubin (Negative) Urine Urobilinogen (<2.0) mg/dL Leukocyte Esterase Rfl (Negative) JENNIFER/UL Urine RBC (0-2) /hpf Urine WBC (0-3) /hpf Ur Squamous Epith Cells (Few) /hpf Urine Bacteria /hpf Urine Casts POC Urine HCG, Qual (Negative) Influenza A (RT-PCR) Negative (Negative) Influenza B (RT-PCR) Negative (Negative) RSV (RT-PCR) Negative (Negative) SARS-CoV-2 RNA (RT-PCR) Negative (Negative) 05/23/25 05/23/25 05/23/25 Range/Units 11:50 12:03 12:17 WBC (4.5-10.0) K/mm3 RBC (4.2-5.4) M/mm3 Hgb (12.0-15.0) g/dL Hct (37.0-47.0) % MCV (80-100) fl MCH (26-34) pg MCHC (32-36) g/dl RDW (11.5-14.5) % Plt Count (150-375) k/mm3 MPV (7.4-10.4) fl Immature Gran % (Auto) (0-0.5) % Neut % (Auto) (45.5-73.1) % Lymph % (Auto) (18.3-44.2) % [place] % (Auto) (2.6-8.5) % Eos % (Auto) (0-4.4) % Baso % (Auto) (0.2-1.2) % Lymph # (Auto) (0.9-3.2) K/mm3 [place] # (Auto) (0.1-0.6) K/mm3 Eos # (Auto) (0-0.3) K/mm3 Baso # (Auto) (0.0-0.1) K/mm3 Abs Immat Gran (auto) (0.00-0.031) K/mm3 Absolute Neuts (auto) (1.3-6.7) K/mm3 Absolute Nucleated RBC (0.0-0.012) K/mm3 Nucleated RBC % (0.0-0.2) % Methemoglobin (0-1.5) %THb Sodium 138 (137-145) mmol/L Potassium 5.3 H (3.4-5.0) mmol/L Chloride 107 (98-107) mmol/L Carbon Dioxide 13 L (22-30) mmol/L Anion Gap 18 H (4-12) mmol/L BUN 17 (7-17) mg/dL Creatinine 0.69 L (0.7-1.0) mg/dL Estim Creat Clear Calc 89 ml/min Estimated GFR > 60 (59 - ) Glucose 299 H (65-110) mg/dL POC Capillary Glucose 340 H 302 H (65-105) mg/dl Hemoglobin A1c (<5.7) % Calcium 8.1 L (8.4-10.2) mg/dL Phosphorus (2.5-4.5) mg/dL Magnesium (1.6-2.3) mg/dL Total Bilirubin (0.2-1.3) mg/dL AST (14-36) U/L ALT (6-35) U/L Alkaline Phosphatase (38-126) U/L Total Protein (6.3-8.2) g/dL Albumin (3.5-5.1) g/dL Beta-Hydroxybutyrate/Acetoacetate (0.02-0.27) mmol/L Urine Color (Yellow) Urine Appearance (Clear) Urine pH (5.0-9.0) Ur Specific [place] (1.001-1.035) Urine Protein (Negative) mg/dL Urine Glucose (UA) (Negative) mg/dL Urine Ketones (Negative) mg/dL Ur Blood (Man) (Negative) Urine Nitrate (Negative) Urine Bilirubin (Negative) Urine Urobilinogen (<2.0) mg/dL Leukocyte Esterase Rfl (Negative) JENNIFER/UL Urine RBC (0-2) /hpf Urine WBC (0-3) /hpf Ur Squamous Epith Cells (Few) /hpf Urine Bacteria /hpf Urine Casts POC Urine HCG, Qual (Negative) Influenza A (RT-PCR) (Negative) Influenza B (RT-PCR) (Negative) RSV (RT-PCR) (Negative) SARS-CoV-2 RNA (RT-PCR) (Negative) <Meghna Rain PA-C - Last Filed: 05/23/25 13:12> Lab Results 05/23/25 05/23/25 05/23/25 Range/Units 08:52 09:17 09:19 WBC (4.5-10.0) K/mm3 RBC (4.2-5.4) M/mm3 Hgb (12.0-15.0) g/dL Hct (37.0-47.0) % MCV (80-100) fl MCH (26-34) pg MCHC (32-36) g/dl RDW (11.5-14.5) % Plt Count (150-375) k/mm3 MPV (7.4-10.4) fl Immature Gran % (Auto) (0-0.5) % Neut % (Auto) (45.5-73.1) % Lymph % (Auto) (18.3-44.2) % [place] % (Auto) (2.6-8.5) % Eos % (Auto) (0-4.4) % Baso % (Auto) (0.2-1.2) % Lymph # (Auto) (0.9-3.2) K/mm3 [place] # (Auto) (0.1-0.6) K/mm3 Eos # (Auto) (0-0.3) K/mm3 Baso # (Auto) (0.0-0.1) K/mm3 Abs Immat Gran (auto) (0.00-0.031) K/mm3 Absolute Neuts (auto) (1.3-6.7) K/mm3 Absolute Nucleated RBC (0.0-0.012) K/mm3 Nucleated RBC % (0.0-0.2) % Methemoglobin (0-1.5) %THb Sodium (137-145) mmol/L Potassium (3.4-5.0) mmol/L Chloride (98-107) mmol/L Carbon Dioxide (22-30) mmol/L Anion Gap (4-12) mmol/L BUN (7-17) mg/dL Creatinine (0.7-1.0) mg/dL Estim Creat Clear Calc ml/min Estimated GFR (59 - ) Glucose (65-110) mg/dL POC Capillary Glucose 278 H (65-105) mg/dl Hemoglobin A1c (<5.7) % Calcium (8.4-10.2) mg/dL Phosphorus (2.5-4.5) mg/dL Magnesium (1.6-2.3) mg/dL Total Bilirubin (0.2-1.3) mg/dL AST (14-36) U/L ALT (6-35) U/L Alkaline Phosphatase (38-126) U/L Total Protein (6.3-8.2) g/dL Albumin (3.5-5.1) g/dL Beta-Hydroxybutyrate/Acetoacetate (0.02-0.27) mmol/L Urine Color Yellow (Yellow) Urine Appearance Cloudy H (Clear) Urine pH 5.5 (5.0-9.0) Ur Specific [place] 1.037 H (1.001-1.035) Urine Protein Trace (Negative) mg/dL Urine Glucose (UA) 3+ H (Negative) mg/dL Urine Ketones 4+ H (Negative) mg/dL Ur Blood (Man) 1+ H (Negative) Urine Nitrate Negative (Negative) Urine Bilirubin Negative (Negative) Urine Urobilinogen 0.2 (<2.0) mg/dL Leukocyte Esterase Rfl Negative (Negative) JENNIFER/UL Urine RBC 0-2 (0-2) /hpf Urine WBC 0-5 (0-3) /hpf Ur Squamous Epith Cells None seen (Few) /hpf Urine Bacteria None seen /hpf Urine Casts 0-2 POC Urine HCG, Qual Negative (Negative) Influenza A (RT-PCR) (Negative) Influenza B (RT-PCR) (Negative) RSV (RT-PCR) (Negative) SARS-CoV-2 RNA (RT-PCR) (Negative) 05/23/25 05/23/25 05/23/25 Range/Units 09:21 09:23 10:05 WBC 19.5 H (4.5-10.0) K/mm3 RBC 4.61 (4.2-5.4) M/mm3 Hgb 13.7 D (12.0-15.0) g/dL Hct 40.6 (37.0-47.0) % MCV 88.1 (80-100) fl MCH 29.7 (26-34) pg MCHC 33.7 (32-36) g/dl RDW 12.8 (11.5-14.5) % Plt Count 323 (150-375) k/mm3 MPV 9.6 (7.4-10.4) fl Immature Gran % (Auto) 0.4 (0-0.5) % Neut % (Auto) 85.6 H (45.5-73.1) % Lymph % (Auto) 8.9 L (18.3-44.2) % [place] % (Auto) 4.8 (2.6-8.5) % Eos % (Auto) 0.0 (0-4.4) % Baso % (Auto) 0.3 (0.2-1.2) % Lymph # (Auto) 1.74 (0.9-3.2) K/mm3 [place] # (Auto) 0.9 H (0.1-0.6) K/mm3 Eos # (Auto) 0.0 (0-0.3) K/mm3 Baso # (Auto) 0.1 (0.0-0.1) K/mm3 Abs Immat Gran (auto) 0.08 H (0.00-0.031) K/mm3 Absolute Neuts (auto) 16.7 H (1.3-6.7) K/mm3 Absolute Nucleated RBC 0.000 (0.0-0.012) K/mm3 Nucleated RBC % 0.0 (0.0-0.2) % Methemoglobin 0.4 (0-1.5) %THb Sodium 137 (137-145) mmol/L Potassium 4.6 (3.4-5.0) mmol/L Chloride 103 (98-107) mmol/L Carbon Dioxide 15 L (22-30) mmol/L Anion Gap 19 H (4-12) mmol/L BUN 18 H D (7-17) mg/dL Creatinine 0.75 (0.7-1.0) mg/dL Estim Creat Clear Calc 82 ml/min Estimated GFR > 60 (59 - ) Glucose 304 H (65-110) mg/dL POC Capillary Glucose (65-105) mg/dl Hemoglobin A1c 6.7 H (<5.7) % Calcium 9.8 (8.4-10.2) mg/dL Phosphorus 4.5 (2.5-4.5) mg/dL Magnesium 1.8 (1.6-2.3) mg/dL Total Bilirubin 1.1 (0.2-1.3) mg/dL AST 29 (14-36) U/L ALT 18 (6-35) U/L Alkaline Phosphatase 103 (38-126) U/L Total Protein 8.3 H (6.3-8.2) g/dL Albumin 4.8 (3.5-5.1) g/dL Beta-Hydroxybutyrate/Acetoacetate 2.19 H (0.02-0.27) mmol/L Urine Color (Yellow) Urine Appearance (Clear) Urine pH (5.0-9.0) Ur Specific [place] (1.001-1.035) Urine Protein (Negative) mg/dL Urine Glucose (UA) (Negative) mg/dL Urine Ketones (Negative) mg/dL Ur Blood (Man) (Negative) Urine Nitrate (Negative) Urine Bilirubin (Negative) Urine Urobilinogen (<2.0) mg/dL Leukocyte Esterase Rfl (Negative) JENNIFER/UL Urine RBC (0-2) /hpf Urine WBC (0-3) /hpf Ur Squamous Epith Cells (Few) /hpf Urine Bacteria /hpf Urine Casts POC Urine HCG, Qual (Negative) Influenza A (RT-PCR) Negative (Negative) Influenza B (RT-PCR) Negative (Negative) RSV (RT-PCR) Negative (Negative) SARS-CoV-2 RNA (RT-PCR) Negative (Negative) 05/23/25 05/23/25 05/23/25 Range/Units 11:50 12:03 12:17 WBC (4.5-10.0) K/mm3 RBC (4.2-5.4) M/mm3 Hgb (12.0-15.0) g/dL Hct (37.0-47.0) % MCV (80-100) fl MCH (26-34) pg MCHC (32-36) g/dl RDW (11.5-14.5) % Plt Count (150-375) k/mm3 MPV (7.4-10.4) fl Immature Gran % (Auto) (0-0.5) % Neut % (Auto) (45.5-73.1) % Lymph % (Auto) (18.3-44.2) % [place] % (Auto) (2.6-8.5) % Eos % (Auto) (0-4.4) % Baso % (Auto) (0.2-1.2) % Lymph # (Auto) (0.9-3.2) K/mm3 [place] # (Auto) (0.1-0.6) K/mm3 Eos # (Auto) (0-0.3) K/mm3 Baso # (Auto) (0.0-0.1) K/mm3 Abs Immat Gran (auto) (0.00-0.031) K/mm3 Absolute Neuts (auto) (1.3-6.7) K/mm3 Absolute Nucleated RBC (0.0-0.012) K/mm3 Nucleated RBC % (0.0-0.2) % Methemoglobin (0-1.5) %THb Sodium 138 (137-145) mmol/L Potassium 5.3 H (3.4-5.0) mmol/L Chloride 107 (98-107) mmol/L Carbon Dioxide 13 L (22-30) mmol/L Anion Gap 18 H (4-12) mmol/L BUN 17 (7-17) mg/dL Creatinine 0.69 L (0.7-1.0) mg/dL Estim Creat Clear Calc 89 ml/min Estimated GFR > 60 (59 - ) Glucose 299 H (65-110) mg/dL POC Capillary Glucose 340 H 302 H (65-105) mg/dl Hemoglobin A1c (<5.7) % Calcium 8.1 L (8.4-10.2) mg/dL Phosphorus (2.5-4.5) mg/dL Magnesium (1.6-2.3) mg/dL Total Bilirubin (0.2-1.3) mg/dL AST (14-36) U/L ALT (6-35) U/L Alkaline Phosphatase (38-126) U/L Total Protein (6.3-8.2) g/dL Albumin (3.5-5.1) g/dL Beta-Hydroxybutyrate/Acetoacetate (0.02-0.27) mmol/L Urine Color (Yellow) Urine Appearance (Clear) Urine pH (5.0-9.0) Ur Specific [place] (1.001-1.035) Urine Protein (Negative) mg/dL Urine Glucose (UA) (Negative) mg/dL Urine Ketones (Negative) mg/dL Ur Blood (Man) (Negative) Urine Nitrate (Negative) Urine Bilirubin (Negative) Urine Urobilinogen (<2.0) mg/dL Leukocyte Esterase Rfl (Negative) JENNIFER/UL Urine RBC (0-2) /hpf Urine WBC (0-3) /hpf Ur Squamous Epith Cells (Few) /hpf Urine Bacteria /hpf Urine Casts POC Urine HCG, Qual (Negative) Influenza A (RT-PCR) (Negative) Influenza B (RT-PCR) (Negative) RSV (RT-PCR) (Negative) SARS-CoV-2 RNA (RT-PCR) (Negative) <Enio Hill MD - Last Filed: 05/23/25 15:55> ABG Data ABG results: 05/23/25 09:23 Puncture Site Right radial ABG pH 7.328 L ABG pCO2 30.2 L ABG pO2 97.3 ABG PO2/FiO2 Ratio 4.63 ABG HCO3 15.5 L ABG O2 Saturation 97.1 ABG O2 Content 18.9 ABG Base Excess -9.1 A-a Gradient 16.3 Oxyhemoglobin 96.1 Carboxyhemoglobin 0.6 Reduced Hemoglobin 2.9 Total Hemoglobin 13.9 O2 Delivery Device Room air O2 Liters/Min Not Reportable FiO2 21 <Meghna Rain PA-C - Last Filed: 05/23/25 13:12> 05/23/25 09:23 Puncture Site Right radial ABG pH 7.328 L ABG pCO2 30.2 L ABG pO2 97.3 ABG PO2/FiO2 Ratio 4.63 ABG HCO3 15.5 L ABG O2 Saturation 97.1 ABG O2 Content 18.9 ABG Base Excess -9.1 A-a Gradient 16.3 Oxyhemoglobin 96.1 Carboxyhemoglobin 0.6 Reduced Hemoglobin 2.9 Total Hemoglobin 13.9 O2 Delivery Device Room air O2 Liters/Min Not Reportable FiO2 21 <Enio Hill MD - Last Filed: 05/23/25 15:55> Attestation: I personally reviewed and interpreted this ABG as follows: <Meghna Rain PA-C - Last Filed: 05/23/25 13:12> Imaging Data Attestation: I personally reviewed and interpreted this imaging study as follows: < Meghna Rain PA-C - Last Filed: 05/23/25 13:12> Radiologist's impression: ITS Impressions Abdomen/Pelvis CT 05/23/25 10:39 IMPRESSION: 1. No acute intra-abdominal/pelvic process. Chest X-Ray 05/23/25 10:45 IMPRESSION: 1. No acute cardiopulmonary disease. <Meghna Rain PA-C - Last Filed: 05/23/25 13:12> Discharge Plan Discharge Clinical Impression: DKA (diabetic ketoacidosis) Qualifiers: Diabetes mellitus type: type 1 Diabetes mellitus complication detail: without coma Qualified Code(s): E10.10 - Type 1 diabetes mellitus with ketoacidosis without coma <Meghna Rain PA-C - Last Filed: 05/23/25 13:12> Patient Disposition: Still a Patient <Meghna Rain PA-C - Last Filed: 05/23/25 13:12> Condition: Stable <Meghna Rain PA-C - Last Filed: 05/23/25 13:12>
[2025-05-23 09:20] LABS: BEDSIDEPREGUCG Negative (Negative)
--- NOTE | 2025-05-23 09:22 | PC.NURSE ---
Pt turned off insulin pump
[2025-05-23 09:25] LABS: Alveolar/Arterial O2 Gradient 16.3 mmHg; Carboxyhemoglobin 0.6 % THb (0-2.0); Fractional Inspired Oxygen 21 %; HCO3 ABG 15.5 mEq/l (22.0-26.0); Methemoglobin ABG 0.4 %THb (0-1.5); Oxygen Content ABG 18.9 %vol (16.0-22.0); Oxygen Saturation ABG 97.1 % (95.0-100.0); PCO2 ABG 30.2 mmHg (35.0-45.0); PO2 ABG 97.3 mmHg (80.0-100.0); PO2 FiO2 Ratio Arterial Blood 4.63 %; Reduced Hemoglobin 2.9 %THb (0-5.0)
[2025-05-23 09:26] LABS: Modified Allen's Test Pass; Site Drawn RIGHT RADIAL
[2025-05-23 09:36] LABS: Hematocrit 40.6 % (37.0-47.0); Hemoglobin 13.7 g/dL (12.0-15.0); Immature Granulocyte Percent A 0.4 % (0-0.5); Lymphocytes Absolute Auto 1.74 K/mm3 (0.9-3.2); Mean Corpuscular HGB Conc 33.7 g/dl (32-36); Mean Corpuscular Hemoglobin 29.7 pg (26-34); Mean Corpuscular Volume 88.1 fl (80-100); Nucleated Red Blood Cells Absolute Auto 0.000 K/mm3 (0.0-0.012); Nucleated Red Blood Cells Perc 0.0 % (0.0-0.2); Platelet Count Result 323 k/mm3 (150-375); Red Blood Count 4.61 M/mm3 (4.2-5.4); White Blood Count 19.5 K/mm3 (4.5-10.0)
[2025-05-23 09:43] LABS: Add Urine Microscopic? YES; Appearance Urine Cloudy (Clear); Glucose Urine UA 3+ mg/dL (Negative); Leukocyte Esterase Ur Negative LEU/UL (Negative); Nitrate Urine Negative (Negative); Non Pathogenic Casts 0-2; Specific Grav Ur 1.037 (1.001-1.035)
[2025-05-23 09:48] LABS: Alanine Aminotransferase 18 U/L (6-35); Albumin Level 4.8 g/dL (3.5-5.1); Alkaline Phosphatase 103 U/L (38-126); Anion Gap 19 mmol/L (4-12); Aspartate Amino Transferase 29 U/L (14-36); Bilirubin,Total 1.1 mg/dL (0.2-1.3); Blood Urea Nitrogen 18 mg/dL (7-17); Calcium 9.8 mg/dL (8.4-10.2); Carbon Dioxide 15 mmol/L (22-30); Chloride 103 mmol/L (98-107); Estimated CRCL calculation 82 ml/min; Estimated Glomerular Filt Rate > 60; Glucose 304 mg/dL (65-110); Magnesium 1.8 mg/dL (1.6-2.3); Potassium 4.6 mmol/L (3.4-5.0); Sodium 137 mmol/L (137-145); Total Protein 8.3 g/dL (6.3-8.2)
--- OUTSIDE RECORDS SUMMARY | 2025-05-23 09:50 | XMS_ITS | Clinical Summary ---
Author Organization [facility] [address] [place] [address] Care Team Providers Care Skin Care Specialist Name Role Phone Mitchell Grubbs MD Primary Care Provider [phone] Allergies No known active allergies Medications lancing [...] 06/29/20 23 Active blood-glucose meter,continuous (Dexcom G6 Technical Sales Representative) misc as directed 05/18/20 23 Active insulin [...] 12/21/2024 Assessment & Plan (12/21/2024 11:02 AM COPPERSMITH HELPER): Pump setting changes: -add 3a-9a basal rate [...] 01/2024 Assessment & Plan (12/21/2024 11:01 AM COPPERSMITH HELPER): Chronic problem. A1c remains at goal & [...] suggested the patient is to start using [employer] to communicate with us. I think she would be a good candidate for an insulin pump and she seems to be interested I contacted the [employer] rep, Shirley Carrillo . She will contact the patient if she is interested will start process with the insurance company for approval Encounters Date Type Department Care Team Description 05/23/2025 Telephone [facility] [address] [address] Jack Fuentes MD Hospital from Last 3 Months Social History Tobacco [...] on file Legal Sex Female 6:57 AM COPPERSMITH HELPER Gender Identity Not on file Sexual Orientation Not on file Obstetrics History Last Filed Vital Signs Vital Sign Reading Time Taken Comments Blood Pressure 100/60 12/21/2024 10:17 AM COPPERSMITH HELPER Pulse 105 12/21/2024 10:17 AM COPPERSMITH HELPER Temperature - - Respiratory Rate 14 12/21/2024 10:17 AM COPPERSMITH HELPER Oxygen Saturation - - Inhaled Oxygen Concentration - - Weight 59.9 kg (132 lb) 12/21/2024 10:17 AM COPPERSMITH HELPER Height 157.5 cm (5' 2.01) 12/21/2024 10:17 AM C Body Mass Index 24.14 12/21/2024 10:17 AM COPPERSMITH HELPER Plan of Treatment Health Maintenance Due Date [...] 08/23, 05/25/2024, Additional history exists Influenza Vaccine (#1) 2025 3, 08/25/2022, 09/19/2020, Additional history exists Albumin Creatinine Ratio, Urine 09/05/2025 Foot Exam 09/05/2025 09/05/2024 Lipid Panel 09/05/2025 09/05/2024 eGFR 09/05/2025 09/05/2024 DTaP/Tdap/Td Vaccine (5 - Td or Tdap) 04/13/2034 04/13/2024, 04/14/2005, 02/10/2005, Additional history exists Hepatitis B Screening Completed 2004, 004 Meningococcal Vaccine Completed 09/02/2022 Procedures Procedure Name Priority Date/Time Associated Diagnosis Comments POCT HEMOGLOBIN A1C Routine 12/21/2024 1 0:20 AM COPPERSMITH HELPER Type 1 diabetes mellitus with hyperglycemia (HCC) [...] (ABNORMAL) POCT hemoglobin A1c (12/21/2024 10:20 AM COPPERSMITH HELPER) Hemoglobin A1C, POC 6.9 4.0 - 5.6 % Blood 12/21/2024 10:2 0 AM COPPERSMITH HELPER us Devika Moise ACCOUNT MANAGER SALES REPRESENTATIVE POINT OF CARE TEST ORDERA BLES Final [...] 09/05/2024 8:46 PM CDT us Devika Moise NP LAB BLOOD ORDERABLES Mariela l Result Performing Organization Address [facility] Phone Number [facility] [address] [facility] Department [place] [address] * Albumin Creatinine Ratio, Urine [...] Devika Moise NP LAB URINE ORDERABLES Mariela l Result [facility] [address] Department [place] [address] * Lipid panel (09/05/2024 2:21 PM CDT) [...] BLOOD ORDERABLES Mariela avilez Result [facility] [address] [place] [address] from Last 3 Months or Most Recently Relevant to Health Maintenance Insurance [employer] Care Teams Skin Care Specialist Relationship Specialty Start Date End Date Mitchell Grubbs MD [address] [facility] [address] [place], [place] [id number] PCP - General Internal Medicine 01/19/25
--- OUTSIDE RECORDS SUMMARY | 2025-05-23 09:50 | XMS_ITS | Encounter Summary ---
Author Organization [facility] Address [address] [place] [address] Care Team Providers Care Clinical Associate Name Role Phone Alvarez Prabhakar MD Primary Care Provider Encounter Details Date Type Department Care Team (Late st Contact Info) Description 11/24/2019 Telephone [facility] Pediatrics - Diabetes [address] [place] [address] Breana Olivas MD Social History Tobacco Use Types Packs/Day Years Used Date Smoking Tobacco: Never Smokeless Tobacco: Never Alcohol Use Standard Drinks/Week Comments Not Asked 0 (1 standard drink = 0.6 oz pur e alcohol) Comments No Sex and Gender Information Value Date Recorded Sex Assigned at Not on file Legal Sex Female 5:43 AM RELATIONSHIP EXECUTIVE Gender Identity Not on file Sexual Orientation Not on file documented as of this encounter Miscellaneous Notes * Telephone Encounter - Linda Torres RN - 11/24/2019 5:37 PM CST We received a request from [employer] regarding Vicoria's Novolog pen fill and that Humalog is actually the preferred brand per insurance. Called Stormy @ [phone] - [facility] for family to call back. TIONSHIP EXECUTIVE documented in this encounter Plan of Treatment Not on file documented as of this encounter Visit Diagnoses Not on filedocumented in this encounter Additional Health Concerns Infection Onset Date Last Indicated Resolved Time COVID-19 Under Investigation 03/03/2021 03/03/2021 03/03/2021 11:11 AM CDT documented as of this encounter Care Teams Clinical Associate Relationship Specialty Start Date End Date Alvarez Prabhakar MD [address] [place] [address] PCP - General 12/12/11 documented as of this encounter
--- OUTSIDE RECORDS SUMMARY | 2025-05-23 09:50 | XMS_ITS | Encounter Summary ---
Author Organization [facility] Address [address] [place] [address] Care Team Providers Care Back Roll Lathe Operator Name Role Phone Alvarez Prabhakar MD Primary Care Provider Encounter Details Date Type Department Care Team (Late st Contact Info) Description 07/18/2019 Telephone [facility] - Diabetes [address] [address] Gracie Cee, RN Social History Tobacco Use Types Packs/Day Years Used Date Smoking Tobacco: Never Smokeless Tobacco: Never Alcohol Use Standard Drinks/Week Comments Not Asked 0 (1 standard drink = 0.6 oz pur e alcohol) Comments No Sex and Gender Information Value Date Recorded Sex Assigned at Not on file Legal Sex Female 5:43 AM OCC THER Gender Identity Not on file Sexual Orientation Not on file documented as of this encounter Plan of Treatment Not on file documented as of this encounter Visit Diagnoses Not on filedocumented in this encounter Additional Health Concerns Infection Onset Date Last Indicated Resolved Time COVID-19 Under Investigation 03/03/2021 03/03/2021 03/03/2021 11:11 AM CDT documented as of this encounter Care Teams Back Roll Lathe Operator Relationship Specialty Start Date End Date Alvarez Prabhakar MD [address] [place] [address] PCP - General 12/12/11 documented as of this encounter
--- OUTSIDE RECORDS SUMMARY | 2025-05-23 09:50 | XMS_ITS | Encounter Summary ---
Author Organization [facility] Address [address] [facility] [place] [address] Care Team Providers Care Him Director Name Role Phone Alvarez Prabhakar MD Primary Care Provider [phone] Reason for Visit * Reason Onset Date Comments MEDICATION REFILL 11/12/2022 Encounter Details Date Type Department Care Team (Late st Contact Info) Description 11/12/2022 Refill [facility] Pediatrics - Diabetes [facility] [address] [place] [address] Rosalva Moyer, AUTO BATTERY BUILDER-GENERAL MATCHER [address] [place] [address] MEDICATION REFILL Social History Tobacco Use Types Packs/Day Years Used Date Smoking Tobacco: Never Smokeless Tobacco: Never Alcohol Use Standard Drinks/Week Comments Never 0 (1 standard drink = 0.6 oz pur e alcohol) Comments No Sex and Gender Information Value Date Recorded Sex Assigned at Not on file Legal Sex Female 5:43 AM SHIFT COORDINATOR Gender Identity Not on file Sexual Orientation [...] uncontrolled documented in this encounter Care Teams Him Director Relationship Specialty Start Date End Date Alvarez Prabhakar MD [address] [place] [address] PCP - General 12/12/11 documented as of this encounter
--- OUTSIDE RECORDS SUMMARY | 2025-05-23 09:50 | XMS_ITS | Encounter Summary ---
Author Organization [facility] Address [address] [facility] [place] [address] Care Team Providers Care Medical Administrative Technician Name Role Phone Alvarez Prabhakar MD Primary Care Provider Encounter Details Date Type Department Care Team (Late st Contact Info) Description 08/31/2012 Telephone [facility] Pediatrics - Diabetes [id number] [place] [address] Leeanne Croft, DIRECTOR AND PROFESSOR-MAJOR ACCOUNT REPRESENTATIVE Retired Social History Tobacco Use Types Packs/Day Years Used Date Smoking Tobacco: Never Assessed Comments Unknown Sex and Gender Information Value Date Recorded Sex Assigned at Not on file Legal Sex Female 5:43 AM ELECTRIC MULE OPERATOR Gender Identity Not on file Sexual [...] documented as of this encounter Care Teams Medical Administrative Technician Relationship Specialty Start Date End Date Alvarez Prabhakar MD [address] [place] [address] PCP - General 12/12/11 documented as of this encounter
--- OUTSIDE RECORDS SUMMARY | 2025-05-23 09:50 | XMS_ITS | Encounter Summary ---
Author Organization [facility] Address [address] [place] [address] Care Team Providers Care Cryptologic Supervisor Name Role Phone Alvarez Prabhakar MD Primary Care Provider [phone] Encounter Details Date Type Department Care Team (Late st Contact Info) Description 04/15/2022 Telephone [facility] Pediatrics - Diabetes [address] [address] Breana Olivas MD Social History Tobacco Use Types Packs/Day Years Used Date Smoking Tobacco: Never Smokeless Tobacco: Never Alcohol Use Standard Drinks/Week Comments Never 0 (1 standard drink = 0.6 oz pur e alcohol) Comments No Sex and Gender Information Value Date Recorded Sex Assigned at Not on file Legal Sex Female 5:43 AM SUPPLIER ENGINEER Gender Identity Not on file Sexual [...] 4:18 PM CDT Received a fax from [employer] stating a PA was needed and secondary does not cover this plan. Script went through primary insurance for a copay $35 but mom wants sec to pay Sent a PA through covermymeds to [employer] for Dexcom G6 sensor. Primary insurance: [employer] Secondary: [employer] documented in this encounter Plan of Treatment Not on file documented as of this encounter Visit Diagnoses Not on filedocumented in this encounter Care Teams Cryptologic Supervisor Relationship Specialty Start Date End Date Alvarez Prabhakar MD [address] [place] [address] PCP - General 12/12/11 documented as of this encounter
--- OUTSIDE RECORDS SUMMARY | 2025-05-23 09:50 | XMS_ITS | Encounter Summary ---
Author Organization [facility] Address [address] [facility] [facility] [place] [address] Care Team Providers Care Seafood Clerk Name Role Phone Alvarez Prabhakar MD Primary Care Provider [phone] Reason for Visit * Reason Onset Date Comments General 06/15/2015 Encounter Details Date Type Department Care Team (Late st Contact Info) Description 06/15/2015 Telephone [facility] Pediatrics - Diabetes [address] [place] [address] Kory Lopez APRN-JOURNALISTS AND OTHER WRITERS [address] [place] [phone] General Social History Tobacco Use Types Packs/Day Years Used Date Smoking Tobacco: Never Assessed Comments No Sex and Gender Information Value Date Recorded Sex Assigned at Not on file Legal Sex Female 5:43 AM JOB PRESS FEEDER Gender Identity Not on file Sexual Orientation Not on file documented as of this encounter Miscellaneous Notes * Telephone Encounter - Jones Mcconnell RN - 06/15/2015 8:59 AM CDT Received RX from [facility] for Dexcom CGM and supplies. I called home to discuss with parents. Want to update them with [facility] requirements for coverage so they are [...] documented as of this encounter Care Teams Seafood Clerk Relationship Specialty Start Date End Date Alvarez Prabhakar MD [address] [place] [address] PCP - General 12/12/11 documented as of this encounter
--- OUTSIDE RECORDS SUMMARY | 2025-05-23 09:50 | XMS_ITS | Encounter Summary ---
Author Organization [facility] Address [address] [facility] [place] [address] Care Team Providers Care Analog Circuit Designer Name Role Phone Alvarez Prabhakar MD Primary Care Provider [phone] Reason for Visit * Reason Onset Date Comments General 11/29/2019 Encounter Details Date Type Department Care Team (Late st Contact Info) Description 11/29/2019 Telephone [facility] Pediatrics - Diabetes [facility] [address] [place] [address] Kory Lopez APRN-PROPELLANT ASSEMBLER [address] [place] [phone] General Social History Tobacco Use Types Packs/Day Years Used Date Smoking Tobacco: Never Smokeless Tobacco: Never Alcohol Use Standard Drinks/Week Comments Not Asked 0 (1 standard drink = 0.6 oz pur e alcohol) Comments No Sex and Gender Information Value Date Recorded Sex Assigned at Not on file Legal Sex Female 5:43 AM CAPACITY MANAGEMENT SPECIALIST Gender Identity Not on file Sexual Orientation Not on file documented as of this encounter Miscellaneous Notes * Telephone Encounter - Jones Mcconnell RN - 11/29/2019 1:19 PM CST I returned mom's call [phone], she acknowledged the message we left regarding formulary changefrom Novolog to Pierre and is fine with it. She reports new RX benefit health club manager, and isn't sure if they will do mail order or local pharmacy. I told Linda noted that an order was put in. If local phramacy is needed, mom would like RX sent to [facility] [place] [facility]. Mom said they still havea month supply of Novolog. CITY MANAGEMENT SPECIALIST documented in this encounter Plan of Treatment Not on file documented as of this encounter Visit Diagnoses Not on filedocumented in this encounter Additional Health Concerns Infection Onset Date Last Indicated Resolved Time COVID-19 Under Investigation 03/03/2021 03/03/2021 03/03/2021 11:11 AM CDT documented as of this encounter Care Teams Analog Circuit Designer Relationship Specialty Start Date End Date Alvarez Prabhakar MD [address] [place] [address] PCP - General 12/12/11 documented as of this encounter
--- OUTSIDE RECORDS SUMMARY | 2025-05-23 09:50 | XMS_ITS | Encounter Summary ---
Author Organization [facility] Address [address] [place] [address] Care Team Providers Care Head Irrigator Name Role Phone Alvarez Prabhakar MD Primary Care Provider [phone] Reason for Visit * Reason Onset Date Comments MEDICATION REFILL 08/11/2014 Encounter Details Date Type Department Care Team (Late st Contact Info) Description 08/11/2014 Refill [facility] Pediatrics - Diabetes [address] [address] Breana Olivas MD MEDICATION REFILL Social History Tobacco Use Types Packs/Day Years Used Date Smoking Tobacco: Never Assessed Comments Unknown Sex and Gender Information Value Date Recorded Sex Assigned at Not on file Legal Sex Female 5:43 AM CODING ADVISOR Gender Identity Not on file Sexual Orientation [...] as of this encounter Care Teams Head Irrigator Relationship Specialty Start Date End Date Alvarez Prabhakar MD [address] [place] [address] PCP - General 12/12/11 documented as of this encounter
--- OUTSIDE RECORDS SUMMARY | 2025-05-23 09:50 | XMS_ITS | Encounter Summary ---
Author Organization [facility] Address [address] [facility] [place] [address] Care Team Providers Care Jewelry Polisher Name Role Phone Alvarez Prabhakar MD Primary Care Provider [phone] Reason for Visit * Reason Onset Date Comments MEDICATION REFILL 07/14/2017 Encounter Details Date Type Department Care Team (Late st Contact Info) Description 07/14/2017 Refill [facility] Pediatrics - Endocrinology [address] [place] [address] Breana Olivas MD MEDICATION REFILL Social History Tobacco Use Types Packs/Day Years Used Date Smoking Tobacco: Never Alcohol Use Standard Drinks/Week Comments Not Asked 0 (1 standard drink = 0.6 oz pur e alcohol) Comments No Sex and Gender Information Value Date Recorded Sex Assigned at Not on file Legal Sex Female 5:43 AM LAN/WAN ENGINEER Gender Identity Not on file Sexual [...] documented as of this encounter Care Teams Jewelry Polisher Relationship Specialty Start Date End Date Alvarez Prabhakar MD [address] [place] [address] PCP - General 12/12/11 documented as of this encounter
--- OUTSIDE RECORDS SUMMARY | 2025-05-23 09:50 | XMS_ITS | Clinical Summary ---
Author Organization [facility] Address [address] [facility] [place] [address] Care Team Providers Care Basting Machine Operator Name Role Phone Alvarez Prabhakar MD Primary Care Provider [phone] Source Comments [facility],non-owned Affiliates and Associated Physician Practices is amultiple site organization consisting of ambulatory clinics and hospital sitesin [place], [place], [place] and [place]. This disclosure is being madepursuant to the Care Everywhere program and may not contain all information available regarding this patient. Last updated 18.[facility] Blueprint Medicines Allergies No known active allergies Medications * [...] kit 07/11/20 Active Blood Glucose Monitoring Suppl (ConcardIO IQ SYSTEM) w/Device KIT Use 1 kit [...] 11 05/22/20 23 Active Continuous Blood Gluc [employer] Administrator (Dexcom G6 [employer] Administrator) DEVIIndications: Type 1 diabetes mellitus without complication [...] Glucagon (Baqsimi Two Pack) 3 MG/DOSE POWD [place] 3 mg into the nose as needed [...] diflucan Assessment & Plan (11/22/2020 4:14 PM PIGGYBACK CLERK): - bladder and bowel dysfunction and nocturnal [...] meal snacking without taking insulin. Per the [place] [employer] practice guidelines [Diabetes Care 2015 [...] months Assessment & Plan (11/22/2020 10:33 AM PIGGYBACK CLERK): 1) no changes today 2) keep up [...] history of type one diabetes presenting to [facility] with polyuria, polydipsia, [...] checks Assessment & Plan (12/10/2022 10:10 PM PIGGYBACK CLERK): Assessment: Anaid is a 17y/o with Type [...] Activity: - PT/OT Social: - Consults to certified alcohol drug counselor, nutrition, forensic social worker Labs: Per endocrine team Access: [...] Activity: - PT/OT Social: - Consults to certified alcohol drug counselor, nutrition, forensic social worker Labs: Hourly glucoses, BMP/Ph q4h alternating with VBG + lytes q4h, urine qvoid, CK once Access: PIV Immunizations Immunization Administration Dates Next Due Covid [employer] primary monoval ent 12+ yr 0.3mL Purple [...] on file Legal Sex Female 5:43 AM PIGGYBACK CLERK Gender Identity Not on file Sexual Orientation [...] POCT INTERFACED (08/31/2023 10:53 AM CDT) Pathologist [facility] Hemoglobin A1C POCT 7.2(H) <5.7 % 08/31/2023 11:00 AM CDT [facility] Estimated Average Glucose 160 mg/dL 08/31/2023 11:00 AM CDT [facility] Blood BLOOD SPECIMEN / Unknown 08/31/2023 10:53 AM CDT 08/31/2023 11:00 AM CDT Narrative [facility] - 08/31/2023 11:00 AM CDT HbA1c [...] - POINT OF CARE ORDERABLES Final Result [facility] [place] [address] * (ABNORMAL) BASIC METABOLIC PANEL (CALCIUM TOTAL) (08/02/2023 3:47 AM CDT) BUN 13 7 - 26 mg/dL 08/02/2023 4:25 [address] [facility] Creatinine 0.66 0.56 - 0.96 mg/dL 08/02/2023 4:25 AM [facility] Sodium 133(L) 136 - 145 mmol/L 08/02/2023 4:25 AM [facility] Potassium 3.9 3.5 - 4.5 mmol/L 08/02/2023 4:25 AM [facility] Chloride 105 98 - 107 mmol/L 08/02/2023 4:25 AM [facility] CO2 22 22 - 29 mmol/L 08/02/2023 4:25 AM [facility] Glucose 289(H) 70 - 115 mg/dL 08/02/2023 4:25 AM [facility] Calcium 8.9 8.4 - 10.2 mg/dL 08/02/2023 4:25 AM [facility] Anion Gap 6 6 - 16 08/02/2023 4:25 AM [facility] BUN/Creatinine Ratio 20 7 - 23 08/02/2023 4:25 AM [facility] Osmolality Calculated 287 270 - 300 mOsm/kg 08/02/2023 4:25 AM [facility] eGFR by CKD-EPI >90 >=90 mL/min/1.7 3 m2 08/02/2023 4:25 AM [facility] Blood BLOOD SPECIMEN / Unknown Lab Venipuncture / Unknown 08/02/2023 3:47 AM CDT 08/02/2023 3:58 AM T Breana Olivas MD LAB - CHEMISTRY ORDERABLES Mariela l Result Performing Organization Address City/[facility]/ZIP Co de Phone Number [facility] [address] [place] [address], [place] [phone] * MICROALB/CREAT RATIO URINE RANDOM PANEL (05/18/2023 9:36 AM CDT) Albumin Random Urine 10.2 Not Established ug/mL 05/18/2023 10:51 AM CDT [facility] Creatinine Urine 188 Not Established mg/dL 05/18/2023 10:51 AM CDT [facility] Urine Albumin/Creati nine Ratio 5 <30 mg/g 05/18/2023 10:51 AM CDT [facility] Urine URINE SPECIMEN OBTAINED BY CLEAN CATCH PROCEDURE / Unknown Collection / Unknown 05/18/2023 9:36 AM CDT 05/18/2023 10:28 AM CDT Breana Olivas MD LAB - URINE CHEMISTRY ORDERABLE S Final Result Performing Organization Address [facility] Co de Phone Number [facility] [address] [place] [address], [place] [phone] from Last 3 Months or Most Recently Relevant to Health Maintenance Insurance [address] [place] [address] [facility] [place] [address] [address] [facility] [employer] ANTHE[employer] Advance Directives * Full Code (Latest Code Status on File) Date Activated Date Inactivated Comments 08/01/2023 12:50 PM 08/02/2023 11:27 AM * Full Code Date Activated Date Inactivated Comments 12/10/2022 6:34 PM 12/11/2022 4:33 PM * Full Code Date Activated Date Inactivated Comments 03/03/2021 11:41 AM 03/04/2021 8:29 PM Care Teams Basting Machine Operator Relationship Specialty Start Date End Date Alvarez Prabhakar MD [address] [place] [phone] PCP - General 12/12/11
--- OUTSIDE RECORDS SUMMARY | 2025-05-23 09:50 | XMS_ITS | Encounter Summary ---
Author Organization [facility] Address [address] [facility] [place] [address] Care Team Providers Care Icing Mixer Name Role Phone Alvarez Prabhakar MD Primary Care Provider Reason for Visit * Reason Onset Date Comments MEDICATION REFILL 07/10/2015 Encounter Details Date Type Department Care Team (Late st Contact Info) Description 07/10/2015 Refill [facility] Pediatrics - Diabetes [id number] [place] [address] Leeanne Croft, CURATORIAL ASSISTANT-BLOCKER AND SEWER Retired MEDICATION REFILL Social History Tobacco Use Types Packs/Day Years Used Date Smoking Tobacco: Never Assessed Comments No Sex and Gender Information Value Date Recorded Sex Assigned at Not on file Legal Sex Female 5:43 AM GRINDER HARDBOARD Gender Identity Not on file Sexual Orientation Not on file documented as of this encounter Plan of Treatment Not on file documented as of this encounter Visit Diagnoses Not on filedocumented in this encounter Additional Health Concerns Infection Onset Date Last Indicated Resolved Time COVID-19 Under Investigation 03/03/2021 03/03/2021 03/03/2021 11:11 AM CDT documented as of this encounter Care Teams Icing Mixer Relationship Specialty Start Date End Date Alvarez Prabhakar MD [address] [place] [address] PCP - General 12/12/11 documented as of this encounter
--- OUTSIDE RECORDS SUMMARY | 2025-05-23 09:50 | XMS_ITS | Encounter Summary ---
Author Organization [facility] Address [address] [facility] [place] [address] Care Team Providers Care Pencil Maker Name Role Phone Alvarez Prabhakar MD Primary Care Provider [phone] Reason for Visit * Reason Onset Date Comments MEDICATION REFILL 02/26/2017 Encounter Details Date Type Department Care Team (Late st Contact Info) Description 02/26/2017 Refill [facility] Pediatrics - Endocrinology [address] [facility] [place] [address] Kory Lopez, WENDI-CARE MANAGEMENT SPECIALIST [address] [place] [phone] MEDICATION REFILL Social History Tobacco Use Types Packs/Day Years Used Date Smoking Tobacco: Never Alcohol Use Standard Drinks/Week Comments Not Asked 0 (1 standard drink = 0.6 oz pur e alcohol) Comments No Sex and Gender Information Value Date Recorded Sex Assigned at Not on file Legal Sex Female 5:43 AM DOCK BOSS Gender Identity Not on file Sexual Orientation [...] documented as of this encounter Care Teams Pencil Maker Relationship Specialty Start Date End Date Alvarez Prabhakar MD [address] [place] [phone] PCP - General 12/12/11 documented as of this encounter
--- OUTSIDE RECORDS SUMMARY | 2025-05-23 09:50 | XMS_ITS | Encounter Summary ---
Author Organization [facility] Address [address] [facility] [place] [address] Care Team Providers Care Machinist/Machine Builder Name Role Phone Alvarez Prabhakar MD Primary Care Provider [phone] Encounter Details Date Type Department Care Team (Late st Contact Info) Description 06/08/2023 Telephone [facility] Pediatrics - Diabetes [address] [address] Breana Olivas MD Social History Tobacco Use Types Packs/Day Years Used Date Smoking Tobacco: Never Passive Smoke Exposure: Never Smokeless Tobacco: Never Alcohol Use Standard Drinks/Week Comments Never 0 (1 standard drink = 0.6 oz pur e alcohol) Comments No Sex and Gender Information Value Date Recorded Sex Assigned at Not on file Legal Sex Female 5:43 AM VEGETABLE SCULLION Gender Identity Not on file Sexual Orientation [...] a transition visit via phone call for [facility], but no answer. LMOMasking for call back from [facility] or [facility]. * Telephone Encounter - Kadeem Coulter - 06/08/2023 8:36 AM CDT PA for Dexcom G6 aligner barrel and receiver sent to [place] [facility] through [employer] documented in this encounter Plan of Treatment Not on file documented as of this encounter Visit Diagnoses Not on filedocumented in this encounter Care Teams Machinist/Machine Builder Relationship Specialty Start Date End Date Alvarez Prabhakar MD [address] [place] [address] PCP - General 12/12/11 documented as of this encounter
--- OUTSIDE RECORDS SUMMARY | 2025-05-23 09:50 | XMS_ITS | Encounter Summary ---
Author Organization [facility] Address [address] [facility] [place] [address] Care Team Providers Care Fur Polisher Name Role Phone Alvarez Prabhakar MD Primary Care Provider [phone] Encounter Details Date Type Department Care Team (Late st Contact Info) Description 03/28/2021 Telephone [facility] Pediatrics - Endocrinology [address] [place] [address] Brendan Zafar MD [address] [place] [phone] Social History Tobacco Use Types Packs/Day Years Used Date Smoking Tobacco: Never Smokeless Tobacco: Never Alcohol Use Standard Drinks/Week Comments Never 0 (1 standard drink = 0.6 oz pur e alcohol) Comments No Sex and Gender Information Value Date Recorded Sex Assigned at Not on file Legal Sex Female 5:43 AM UTILITY MANAGER Gender Identity Not on file Sexual [...] 03/28/2021 8:41 AM CDT PA sent to [place] for [employer]. documented in this encounter Plan of Treatment Not on file documented as of this encounter Visit Diagnoses Not on filedocumented in this encounter Care Teams Fur Polisher Relationship Specialty Start Date End Date Alvarez Prabhakar MD [address] [place] [address] PCP - General 12/12/11 documented as of this encounter
--- OUTSIDE RECORDS SUMMARY | 2025-05-23 09:50 | XMS_ITS | Clinical Summary ---
Author Organization [facility] Address [address] [facility] Attn: Epic Prelude ADT ISAK MATHISARIELLE [address] Care Team Providers Care Energy Conservation Director Name Role Phone Unavailable Primary Care Provider Unavailabl e Medications insulin glargine (Lantus Solostar U-100 Insulin) 100 unit/mL pen syringe INJECT 18 UNITS UNDER THE SKIN ONCE NIGHTLY 15 mL 5 05/20/2024 10:59 AM CDT 08/19/20 23 Active Blood-Glucose Meter,Continuou s (Dexcom G6 Quality Assurance Group Leader) USE DIRECTED 1 Each 05/18/20 23 Active [...] 05/22/20 23 Active glucagon (Baqsimi) 3 mg/spray Vernon, Non-Aerosol Vernon 3 mg into the nose as needed [...] 05/12/20 24 Active glucagon (Baqsimi) 3 mg/spray Vernon, Non-Aerosol Administer 1 spray into one nostril [...] nightly 15 mL 3 11/11/2024 5:17 PM PREKINDERGARTEN TEACHER 11/09/20 24 Active Blood-Glucose Sensor (Dexcom G6 [...] exists Insurance RX [employer] Commercial [employer] Commercial RX [employer] RX Member Subscriber Plan / Payer (Ef fective 2024-Present) Name:Anaid Whitaker Relation to Subscriber:Self Name:Anaid Whitaker Subscriber ID:Not on file Payer ID:Not on file Type:Not on file Address: [address]
--- OUTSIDE RECORDS SUMMARY | 2025-05-23 09:50 | XMS_ITS | Encounter Summary ---
Author Organization [facility] Address [address] [facility] [place] [address] Care Team Providers Care Payroll Assistant Name Role Phone Alvarez Prabhakar MD Primary Care Provider [phone] Encounter Details Date Type Department Care Team (Late st Contact Info) Description 11/12/2022 Telephone [facility] Pediatrics - Diabetes [address] [address] Breana Olivas MD Social History Tobacco Use Types Packs/Day Years Used Date Smoking Tobacco: Never Smokeless Tobacco: Never Alcohol Use Standard Drinks/Week Comments Never 0 (1 standard drink = 0.6 oz pur e alcohol) Comments No Sex and Gender Information Value Date Recorded Sex Assigned at Not on file Legal Sex Female 5:43 AM DERRICK WORKER Gender Identity Not on file Sexual [...] of taking her to the emergency room. ICK WORKER * Telephone Encounter - Subha Ivey RN - 11/19/2022 10:09 AM CST nAaid called to review bgs. See flowsheet. Anaid [...] BS >350 5 Units Lantus: 18 units ICK WORKER * Telephone Encounter - YfnKadeem mc - [...] this time. New refills sent to provider. ICK WORKER documented in this encounter Plan of Treatment Not on file documented as of this encounter Visit Diagnoses Not on filedocumented in this encounter Care Teams Payroll Assistant Relationship Specialty Start Date End Date Alvarez Prabhakar MD [address] [place] [address] PCP - General 12/12/11 documented as of this encounter
--- OUTSIDE RECORDS SUMMARY | 2025-05-23 09:50 | XMS_ITS | Encounter Summary ---
Author Organization [facility] Address [address] [place] [address] Care Team Providers Care Practice Or Student Teacher Name Role Phone Alvarez Prabhakar MD Primary Care Provider [phone] Reason for Visit * Reason Onset Date Comments MEDICATION REFILL 11/28/2019 Encounter Details Date Type Department Care Team (Late st Contact Info) Description 11/28/2019 Refill [facility] Pediatrics - Diabetes [address] [place] [address] Breana Olivas MD MEDICATION REFILL Social History Tobacco Use Types Packs/Day Years Used Date Smoking Tobacco: Never Smokeless Tobacco: Never Alcohol Use Standard Drinks/Week Comments Not Asked 0 (1 standard drink = 0.6 oz pur e alcohol) Comments No Sex and Gender Information Value Date Recorded Sex Assigned at Not on file Legal Sex Female 5:43 AM ROLLED OATS MILL OPERATOR Gender Identity Not on file Sexual Orientation Not on file documented as of this encounter Miscellaneous Notes * Telephone Encounter - Linda Torres, RN - 11/28/2019 11:20 AM CST Following up on several faxes we have received from [employer] about changing Anaid's rapid acting insulin to Humalog due to insurance preference. LMOM, asking for a call back. Order placed for Humalog. ED OATS MILL OPERATOR documented in this encounter Plan of Treatment Not on file documented as of this encounter Visit Diagnoses Not on filedocumented in this encounter Additional Health Concerns Infection Onset Date Last Indicated Resolved Time COVID-19 Under Investigation 03/03/2021 03/03/2021 03/03/2021 11:11 AM CDT documented as of this encounter Care Teams Practice Or Student Teacher Relationship Specialty Start Date End Date Alvarez Prabhakar MD [address] [place] [address] PCP - General 12/12/11 documented as of this encounter
--- OUTSIDE RECORDS SUMMARY | 2025-05-23 09:50 | XMS_ITS | Encounter Summary ---
Author Organization [facility] Address [address] [facility] [place] [address] Care Team Providers Care Mobile Sales Technician Name Role Phone Alvarez Prabhakar MD Primary Care Provider [phone] Reason for Visit * Reason Onset Date Comments MEDICATION REFILL 12/11/2022 Encounter Details Date Type Department Care Team (Late st Contact Info) Description 12/11/2022 Refill [facility] Pediatrics - Diabetes Mgmt [address] [place] [address] Isis Munguia MD [address] [place] [address] MEDICATION REFILL Social History Tobacco Use Types Packs/Day Years Used Date Smoking Tobacco: Never Smokeless Tobacco: Never Alcohol Use Standard Drinks/Week Comments Never 0 (1 standard drink = 0.6 oz pur e alcohol) Comments No Sex and Gender Information Value Date Recorded Sex Assigned at Not on file Legal Sex Female 5:43 AM HOUSING AND RESIDENCE LIFE DIRECTOR Gender Identity Not on file Sexual Orientation Not on file documented as of this encounter Functional Status * Is person deaf or have serious hearing difficulty? Answer Date of Assessment Author No 12/10/2022 8:53 PM Xochilt Payne RN * Is person blind or have serious difficulty seeing? Answer Date of Assessment Author No 12/10/2022 8:53 PM HOUSING AND RESIDENCE LIFE DIRECTOR Xochilt Gibbons RN * Does person have serious difficulty walking/climbing stairs? Answer Date of Assessment Author No 12/10/2022 8:53 PM HOUSING AND RESIDENCE LIFE DIRECTOR Xochilt Gibbons RN * Does person have difficulty dressing/bathing? Answer Date of Assessment Author No 12/10/2022 8:53 PM HOUSING AND RESIDENCE LIFE DIRECTOR Xochilt Gibbons RN * Does person have difficulty doing errands alone? Answer Date of Assessment Author No 12/10/2022 8:53 PM HOUSING AND RESIDENCE LIFE DIRECTOR Xochilt Gibbons RN documented as of this encounter Mental Status * Does person have difficulty concentrating/remembering/making decisions? Answer Entry Date Author No 12/10/2022 8:53 PM HOUSING AND RESIDENCE LIFE DIRECTOR Xochilt Gibbons RN documented in this encounter Miscellaneous Notes * Telephone Encounter - Isis Munguia MD - 12/11/2022 2:46 PM HOUSING AND RESIDENCE LIFE DIRECTOR Prescription for Humalog filed with 3 refills. Patient last seen in October and does not have follow up in place. Please contact patient (as is 17) to set up follow up with Bree Moyer or Dr Olivas in January. ING AND RESIDENCE LIFE DIRECTOR documented in this encounter Plan of Treatment Not on file documented as of this encounter Visit Diagnoses Diagnosis Type 1 diabetes mellitus without complication (HCC) Type I (juvenile type) diabetes mellitus without mention of complication, not stated as uncontrolled documented in this encounter Care Teams Mobile Sales Technician Relationship Specialty Start Date End Date Alvarez Prabhakar MD [address] [place] [address] PCP - General 12/12/11 documented as of this encounter
--- OUTSIDE RECORDS SUMMARY | 2025-05-23 09:50 | XMS_ITS | Encounter Summary ---
Author Organization [facility] Address [address] [facility] [place] [address] Care Team Providers Care Business Excellence Leader Name Role Phone Alvarez Prabhakar MD Primary Care Provider [phone] Reason for Visit * Reason Onset Date Comments Blood Sugar Problem 09/21/2020 Encounter Details Date Type Department Care Team (Late st Contact Info) Description 09/21/2020 Telephone [facility] Pediatrics - Diabetes Mgmt [address] [place] [address] Kory Lopez, WENDI-ELEMENTARY SPECIAL EDUCATION TEACHER [address] [place] [phone] Blood Sugar Problem Social History Tobacco Use Types Packs/Day Years Used Date Smoking Tobacco: Never Smokeless Tobacco: Never Alcohol Use Standard Drinks/Week Comments Not Asked 0 (1 standard drink = 0.6 oz pur e alcohol) Comments No Sex and Gender Information Value Date Recorded Sex Assigned at Not on file Legal Sex Female 5:43 AM ASPHALT HEATER OPERATOR Gender Identity Not on file Sexual [...] for ketones and call back via the laboratory secretary. documented in this encounter Plan of Treatment Not on file documented as of this encounter Visit Diagnoses Not on filedocumented in this encounter Additional Health Concerns Infection Onset Date Last Indicated Resolved Time COVID-19 Under Investigation 03/03/2021 03/03/2021 03/03/2021 11:11 AM CDT documented as of this encounter Care Teams Business Excellence Leader Relationship Specialty Start Date End Date Alvarez Prabhakar MD [address] [place] [address] PCP - General 12/12/11 documented as of this encounter
--- OUTSIDE RECORDS SUMMARY | 2025-05-23 09:50 | XMS_ITS | Encounter Summary ---
Author Organization [facility] Address [address] [place] [address] Care Team Providers Care Grocery Cashier Name Role Phone Alvarez Prabhakar MD Primary Care Provider [phone] Reason for Visit * Reason Onset Date Comments MEDICATION REFILL 06/20/2014 Encounter Details Date Type Department Care Team (Late st Contact Info) Description 06/20/2014 Refill [facility] Pediatrics - Diabetes [address] [address] Breana Olivas MD MEDICATION REFILL Social History Tobacco Use Types Packs/Day Years Used Date Smoking Tobacco: Never Assessed Comments Unknown Sex and Gender Information Value Date Recorded Sex Assigned at Not on file Legal Sex Female 5:43 AM LANDSCAPE FOREMAN Gender Identity Not on file Sexual Orientation [...] documented as of this encounter Care Teams Grocery Cashier Relationship Specialty Start Date End Date Alvarez Prabhakar MD [address] [place] [address] PCP - General 12/12/11 documented as of this encounter
--- OUTSIDE RECORDS SUMMARY | 2025-05-23 09:50 | XMS_ITS | Encounter Summary ---
Author Organization [facility] Address [address] [facility] [place] [address] Care Team Providers Care Hoseman Name Role Phone Alvarez Prabhakar MD Primary Care Provider [phone] Reason for Visit * Reason Comments Refill Request Encounter Details Date Type Department Care Team (Late st Contact Info) Description 08/19/2022 Refill [facility] Pediatrics - Diabetes [address] [address] Brendan Zafar MD [address] [place] [phone] Refill Request Social History Tobacco Use Types Packs/Day Years Used Date Smoking Tobacco: Never Smokeless Tobacco: Never Alcohol Use Standard Drinks/Week Comments Never 0 (1 standard drink = 0.6 oz pur e alcohol) Comments No Sex and Gender Information Value Date Recorded Sex Assigned at Not on file Legal Sex Female 5:43 AM ENT PHYSICIAN Gender Identity Not on file Sexual Orientation [...] uncontrolled documented in this encounter Care Teams Hoseman Relationship Specialty Start Date End Date Alvarez Prabhakar MD [address] [place] [address] PCP - General 12/12/11 documented as of this encounter
--- OUTSIDE RECORDS SUMMARY | 2025-05-23 09:50 | XMS_ITS | Referral Summary ---
Author Organization [facility] Physician Office Building [address] [address] [place] [address] Care Team Providers Care Asset Coordinator Name Role Phone Mitchell Grubbs MD Primary Care Provider [phone] Encounters Date Type Department Care Team Description 05/23/2025 Telephone [facility] Specialists [facility] [address] [facility] [address] [address] Jack Fuentes MD [facility] from Last 3 Months Allergies No known [...] 06/29/20 23 Active blood-glucose meter,continuous (Dexcom G6 Portal Developer) misc as directed 05/18/20 23 Active insulin [...] UNITS PER DAY. 45 mL 1 11/30/19 25 Active Dexcom G6 Transmitter deviceIndication s:Type 1 [...] pod every 3 days 10 each 3 01/292024 Discontinued Active Problems Problem Noted Date Diagnosed Date Insulin pump status 12/21/2024 Assessment & Plan (12/21/2024 11:02 AM IN STORE DEMONSTRATOR): Pump setting changes: -add 3a-9a basal rate [...] readings). Type 1 diabetes mellitus with hyperglycemia 0 01/2024 Assessment & Plan (12/21/2024 11:01 AM IN STORE DEMONSTRATOR): Chronic problem. A1c remains at goal & [...] suggested the patient is to start using [employer] to communicate with us. I think she would be a good candidate for an insulin pump and she seems to be interested I contacted the [employer] rep, Shirlye Carrillo . She will contact the patient [...] on file Legal Sex Female 6:57 AM IN STORE DEMONSTRATOR Gender Identity Not on file Sexual Orientation Not on file Last Filed Vital Signs Vital Sign Reading Time Taken Comments Blood Pressure 100/60 12/21/2024 10:17 AM IN STORE DEMONSTRATOR Pulse 105 12/21/2024 10:17 AM IN STORE DEMONSTRATOR Temperature - - Respiratory Rate 14 12/21/2024 10:17 AM IN STORE DEMONSTRATOR Oxygen Saturation - - Inhaled Oxygen Concentration - - Weight 59.9 kg (132 lb) 12/21/2024 10:17 AM IN STORE DEMONSTRATOR Height 157.5 cm (5' 2.01) 12/21/2024 10:[address] Body Mass Index 24.14 12/21/2024 10:17 AM IN STORE DEMONSTRATOR Plan of Treatment Not on file Procedures Procedure Name Priority Date/Time Associated Diagnosis Comments POCT HEMOGLOBIN A1C Routine 12/21/2024 1 0:20 AM IN STORE DEMONSTRATOR Type 1 diabetes mellitus with hyperglycemia (HCC) [...] (ABNORMAL) POCT hemoglobin A1c (12/21/2024 10:20 AM IN STORE DEMONSTRATOR) Hemoglobin A1C, POC 6.9 4.0 - 5.6 % Blood 12/21/2024 10:2 0 AM IN STORE DEMONSTRATOR us Devika Moise TRANSPORTATION MODELER POINT OF CARE TEST ORDERA BLES Final [...] 09/05/2024 8:46 PM CDT us Devika Moise TRANSPORTATION MODELER LAB BLOOD ORDERABLES Mariela l Result [facility] [address] Department [place] [address] * Albumin Creatinine Ratio, Urine (09/05/2024 2:21 PM CDT) Albumin Ur 21.1 mg/L Comment: Interpretive Data No reference range established. Current interpretive data was last revised 2019. Creatinine Ur 190.3 mg/dL [facility] Comment: Interpretive Data No reference range established. Current interpretive data was last revised 2019. Albumin Creatinine Ratio, Ur 11 1 - 29 mg/g [facility] Urine 09/05/2024 2:21 PM CDT 09/05/2024 8:31 PM CDT us Devika Moise TRANSPORTATION MODELER LAB URINE ORDERABLES Mariela raghav Result [facility] [address] Department [place] [address] * Lipid panel (09/05/2024 2:21 PM CDT) [...] 09/05/2024 8:32 PM CDT us Devika Moise TRANSPORTATION MODELER LAB BLOOD ORDERAB[place] [address] [address] Department [place] [address] from Last 3 Months or Most Recently Relevant to Health Maintenance Insurance [employer] Care Teams Asset Coordinator Relationship Specialty Start Date End Date Mitchell Grubbs MD [address] [place] [address] PCP - General Internal Medicine 01/19/25
--- OUTSIDE RECORDS SUMMARY | 2025-05-23 09:50 | XMS_ITS | Encounter Summary ---
Author Organization [facility] Address [address] [facility] [place] [address] Care Team Providers Care Lime Kiln Worker Name Role Phone Alvarez Prabhakar MD Primary Care Provider [phone] Reason for Visit * Reason Onset Date Comments MEDICATION REFILL 03/25/2013 Encounter Details Date Type Department Care Team (Late st Contact Info) Description 03/25/2013 Refill [facility] Pediatrics - Diabetes [facility] [address] [place] [address] Kory Lopez APRN-PHOTOGRAMMETRIC ENGINEER [address] [place] [address] MEDICATION REFILL Social History Tobacco Use Types Packs/Day Years Used Date Smoking Tobacco: Never Assessed Comments Unknown Sex and Gender Information Value Date Recorded Sex Assigned at Not on file Legal Sex Female 5:43 AM RESIDENTIAL TECH Gender Identity Not on file Sexual Orientation Not on file documented as of this encounter Plan of Treatment Not on file documented as of this encounter Visit Diagnoses Not on filedocumented in this encounter Additional Health Concerns Infection Onset Date Last Indicated Resolved Time COVID-19 Under Investigation 03/03/2021 03/03/2021 03/03/2021 11:11 AM CDT documented as of this encounter Care Teams Lime Kiln Worker Relationship Specialty Start Date End Date Alvarez Prabhakar MD [address] [place] [address] PCP - General 12/12/11 documented as of this encounter
--- OUTSIDE RECORDS SUMMARY | 2025-05-23 09:50 | XMS_ITS | Encounter Summary ---
Author Organization [facility] Address [address] [place] [address] Care Team Providers Care Airport Operations Officer Name Role Phone Alvarez Prabhakar MD Primary Care Provider [phone] Reason for Visit * Reason Onset Date Comments Blood Sugar Problem 12/04/2015 Encounter Details Date Type Department Care Team (Late st Contact Info) Description 12/04/2015 Telephone [facility] Pediatrics - Diabetes Mgmt [address] [place] [address] Kory Lopez APRN-COMPUTER FORENSICS ANALYST [address] [place] [phone] Blood Sugar Problem Social History Tobacco Use Types Packs/Day Years Used Date Smoking Tobacco: Never Alcohol Use Standard Drinks/Week Comments Not Asked 0 (1 standard drink = 0.6 oz pur e alcohol) Comments No Sex and Gender Information Value Date Recorded Sex Assigned at Not on file Legal Sex Female 5:43 AM SNOW PLOW OPERATOR Gender Identity Not on file Sexual Orientation Not on file documented as of this encounter Miscellaneous Notes * Telephone Encounter - Lizeth Garrett RN - 12/04/2015 12:05 PM SNOW PLOW OPERATOR Received message from school nurse that Anaid is in Nurse David's office with blood sugar of [phone] ext [phone]. Per nurse she is asymptomatic and she is checking ketones now. Nurse David'sstates ketones were trace. She states she already spoke with nurse from diabetes office this am prior to my call. No note so returned call at this time. PLOW OPERATOR * Telephone Encounter - Jones Mcconnell RN - 12/04/2015 12:04 PM CST Nurse called [phone]. Anaid's blood sugar is 416, ketones are trace, she is drinking water.No symptoms of illness. PLAN per injection/sick protocol: Give usual correction at lunch in addition to humalog for carbs. Check bg and ketones in 2 hours. Call for moderate-large ketones, vomiting, concerns. Notify pts mother of high bg. Nurse agreed. PLOW OPERATOR documented in this encounter Plan of Treatment Not on file documented as of this encounter Visit Diagnoses Not on filedocumented in this encounter Additional Health Concerns Infection Onset Date Last Indicated Resolved Time COVID-19 Under Investigation 03/03/2021 03/03/2021 03/03/2021 11:11 AM CDT documented as of this encounter Care Teams Airport Operations Officer Relationship Specialty Start Date End Date Alvarez Prabhakar MD [address] [place] [address] PCP - General 12/12/11 documented as of this encounter
--- OUTSIDE RECORDS SUMMARY | 2025-05-23 09:51 | XMS_ITS | Encounter Summary ---
Author Organization [facility] Address [address] [facility] [place] [address] Care Team Providers Care Efficiency Manager Name Role Phone Alvarez Prabhakar MD Primary Care Provider Encounter Details Date Type Department Care Team (Late st Contact Info) Description 12/04/2023 Telephone [facility] [id number] [place] [address] Rosalva Moyer, NEEDLE PUNCH MACHINE OPERATOR HELPER-ENGRAVER COPPERPLATE [address] [place] [id number] Social History Tobacco Use Types Packs/Day [...] on file Legal Sex Female 5:43 AM WEB PRODUCER Gender Identity Not on file Sexual Orientation [...] a referral to Dr. Jack Fuentes with [facility] medical group in [facility]. Also rx for supplies sent to provider to sign. PRODUCER documented in this encounter Plan of Treatment Not on file documented as of this encounter Visit Diagnoses Not on filedocumented in this encounter Care Teams Efficiency Manager Relationship Specialty Start Date End Date Alvarez Prabhakar MD [address] [place] [address] PCP - General 12/12/11 documented as of this encounter
--- OUTSIDE RECORDS SUMMARY | 2025-05-23 09:51 | XMS_ITS | Encounter Summary ---
Author Organization [facility] Healthcare Address [address] [place] [address] Care Team Providers Care Cab Station Attendant Name Role Phone Mitchell Grubbs MD Primary Care Provider [phone] Reason for Visit * Reason Onset Date Comments Hospital 05/23/2025 Encounter Details Date Type Department Care Team (Late st Contact Info) Description 05/23/2025 Telephone [facility] [id number] [place] [phone] [place] [id number] [place] [id number] Hospital Social History Tobacco Use Types Packs/Day Years Used Date Smoking Tobacco: Never Smokeless Tobacco: Never PHQ-2 Answer Date Recorded PHQ-2 Total Score (If total score is 3 or more points, staff should administer the PHQ-9) 0 05/25/2024 Comments Unknown Sex and Gender Information Value Date Recorded Sex Assigned at Not on file 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 Fuentes. documented in this encounter Plan of Treatment Not on file documented as of this encounter Visit Diagnoses Not on filedocumented in this encounter Care Teams Cab Station Attendant Relationship Specialty Start Date End Date Mitchell Grubbs MD [address] [address] PCP - General Internal Medicine 01/19/25 documented as of this encounter
--- OUTSIDE RECORDS SUMMARY | 2025-05-23 09:51 | XMS_ITS | Encounter Summary ---
Author Organization [facility] Address [address] [place] [address] Care Team Providers Care Kids Club Attendant Name Role Phone Alvarez Prabhakar MD Primary Care Provider [phone] Encounter Details Date Type Department Care Team (Late st Contact Info) Description 09/21/2020 Telephone [facility] - Endocrinology [address] [place] [address] Kory Lopez APRN-PROFESSOR OF ASTRONOMY [address] [place] [address] Social History Tobacco Use Types Packs/Day Years Used Date Smoking Tobacco: Never Smokeless Tobacco: Never Alcohol Use Standard Drinks/Week Comments Not Asked 0 (1 standard drink = 0.6 oz pur e alcohol) Comments No Sex and Gender Information Value Date Recorded Sex Assigned at Not on file Legal Sex Female 5:43 AM SYS DIR Gender Identity Not on file Sexual Orientation [...] documented as of this encounter Care Teams Kids Club Attendant Relationship Specialty Start Date End Date Alvarez Prabhakar MD [address] [place] [address] PCP - General 12/12/11 documented as of this encounter
[2025-05-23] MEDS: KETOROLAC 30 MG/ML VIAL (*BKC) IV PUSH (10:13)
[2025-05-23] MEDS: SODIUM CHLORIDE 0.9% IV 1,000 ML 999 ML IV CONT ×3 (10:14→10:15)
[2025-05-23 10:27] LABS: Hemoglobin A1C 6.7 % (<5.7)
[2025-05-23 10:45] LABS: Beta-Hydroxybutyrate/Acetoace. 2.19 mmol/L (0.02-0.27)
[2025-05-23 11:04] LABS: Influenza A QL RT-PCR Negative (Negative); Influenza B QL RT-PCR Negative (Negative); RSV RNA, RT-PCR Negative (Negative); SARS-CoV-2 RNA PCR Negative (Negative)
--- NOTE | 2025-05-23 11:35 | PC.NURSE ---
Per EDP hold drawing BMP until 3rd liter of IV fluids is finished infusing
--- NOTE | 2025-05-23 11:53 | PC.NURSE ---
Pt blood sugar 340, EDP made aware. Per EDP BMP is okay to draw now
[2025-05-23 12:22] LABS: Anion Gap 18 mmol/L (4-12); Blood Urea Nitrogen 17 mg/dL (7-17); Calcium 8.1 mg/dL (8.4-10.2); Carbon Dioxide 13 mmol/L (22-30); Chloride 107 mmol/L (98-107); Estimated CRCL calculation 89 ml/min; Estimated Glomerular Filt Rate > 60; Glucose 299 mg/dL (65-110); Potassium 5.3 mmol/L (3.4-5.0); Sodium 138 mmol/L (137-145)
[2025-05-23] MEDS: INSULIN HUMAN REGULAR (*BKC) 100 UNITS/ML 6 UNITS IV PUSH (12:25)
--- NOTE | 2025-05-23 13:19 | P.CONIN_ITS ---
Assessment and Plan Assessment and plan (1) DKA (diabetic ketoacidosis): Qualifiers: Diabetes mellitus complication detail: without coma Diabetes mellitus type: type 1 Qualified Code(s): E10.10 - Type 1 diabetes mellitus with ketoacidosis without coma Code(s): E11.10 - Type 2 diabetes mellitus with ketoacidosis without coma Status: Acute Assessment and Plan: Likely secondary to insulin pump malfunction or incorrect insertion of the needle. No objective sign of infection Pt was given IVF bolus and started on infusion Insulin infusion started and Q1H glucose monitoring is being done Serial labs ordered Replace electrolytes as needed Will transition to SC insulin once AG is closed Consult dietitian and brake operator helper Patient currently is asymptomatic hence I will start on clear liquid diet. (2) Leukocytosis: Code(s): D72.829 - Elevated white blood cell count, unspecified Status: Acute Assessment and Plan: Likely stress response. UA negative and chest abdomen pelvis imaging negative for any evidence of infection. Monitor (3) Hyperkalemia: Code(s): E87.5 - Hyperkalemia Status: Acute Assessment and Plan: Likely secondary to DKA Treatment with IV fluids and insulin Repeat BMP ordered. Plan DVT prophylaxis -SCD Nutrition -clear liquid diet Code Status - Full Code Total Critical Care Time - 30 minutes Due to a high probability of clinically significant, life threatening deterioration, the patient required my highest level of preparedness to intervene emergently and I personally spent this critical care time directly and personally managing the patient. This critical care time included obtaining a history; examining the patient; pulse oximetry; ordering and review of studies; arranging urgent treatment with development of a management plan; evaluation of patient's response to treatment; frequent reassessment; and discussions with other providers. It was exclusive of separately billable procedures and treating other patients and teaching time. Please see Assessment and Plan section and the rest of the note for further information on patient assessment and treatment Air Chipper Consult Note Consult date: 05/23/25 Reason for consult: DKA HPI: Anaid Dimas is a 19 year old female with past medical history of type 1 diabetes who is on insulin pump and was admitted last year with DKA presented to ER with chief complaint of high blood sugars. Patient states that her pump was working properly until in her yesterday around request time she states the blood sugars started increasing and the bolus dosing was not making any fact. She did not recognize any problem with her pump but there may be issues with the needle insertion. She states yesterday she also started having her periods and had crampy at pain in her pelvis which is usual for her and pain was also going to her back. She states the pain has now resolved. She had 1 episode of nausea and vomiting which was as stated with clear vomitus. She also felt weak and tired. Patient denies fever, chest pain, shortness of breath, cough, diarrhea, headache or constipation. All other systems were reviewed and were negative Workup in the ER showed UA negative for UTI Chest x-ray showed no acute cardiopulmonary process CT abdomen pelvis was negative WBC 19.5, pH 7.32 anion gap 19 followed by 18 elevated blood glucose HbA1c 6.7 get hydroxybutyrate 0.19 and negative test Patient was given IV fluid bolus and started on IV insulin infusion. Patient is being admitted to ICU for further evaluation management Review of Systems 2 Review of Systems: All systems reviewed & are unremarkable except as noted in HPI and below (HPI) [facility] Past Medical History Medical History Encounter for surveillance of other contraceptives Type 1 diabetes Family History Family History Grandparent Diabetes mellitus Social History Social History Smoking status: Never smoker Alcohol intake: never Substance use: never Do You Feel Safe in your Home?: Yes Lack of Transportation: No Lack of Food: Never True Current Housing: I Have Housing Concerned About Future Housing: No Difficulty Paying Gas/Electric Bills: No Difficulty Paying for Meds: No Currently Unemployed: No Education: Decline to Answer Difficulty w/ Childcare or Family Care: No Living arrangements: with family Occupation/Education: student Additional occupation/education comments: [employer] in high school Gender identity (if verbalized by the patient): Female Sexual Orientation (if Verbalized by the Patient): Bisexual Spiritual care concerns: No Meds Home Medications and Allergies Home Medications ?Medication ?Instructions ?Recorded ?Confirmed ?Type blood-glucose sensor ([employer] G6 11/14/24 11/14/24 History Sensor device) blood-glucose transmitter ([employer] 11/14/24 11/14/24 History G6 Transmitter device) insulin pump cart,auto,BT,G6/7 11/14/24 11/14/24 History (Omnipod 5 G6-G7 Pods (Gen 5) subcutaneous cartridge) insulin pump cartridge,auto 11/14/24 11/14/24 History dose,BT,G6/G7 with controller subcutaneous (Omnipod 5 G6-G7 Intro Kit(Gen 5) subcutaneous cartridge and controller) Allergies Allergy/AdvReac Type Severity Reaction Status Date / Time No Known Allergies Allergy Verified 05/23/25 08:53 Vital Signs Vital Signs - 24 hr 05/23/25 08:53 05/23/25 09:17 05/23/25 10:46 Temperature 36.9 C Pulse Rate 119 H 120 H 118 H Respiratory Rate 25 H 19 26 H Blood Pressure 122/59 L 113/73 124/59 L Pulse Oximetry 100 100 100 Oxygen Delivery Room Air 05/23/25 11:48 05/23/25 12:28 Temperature Pulse Rate 116 H 123 H Respiratory Rate 26 H 17 Blood Pressure 119/63 114/53 L Pulse Oximetry 100 100 Oxygen Delivery Results Labs 05/23/25 09:21 05/23/25 12:03 Labs: Short CBC 05/23/25 Range/Units 09:21 WBC 19.5 H (4.5-10.0) K/mm3 Hgb 13.7 D (12.0-15.0) g/dL Hct 40.6 (37.0-47.0) % Plt Count 323 (150-375) k/mm3 BMP 05/23/25 05/23/25 09:21 12:03 Sodium 137 138 Potassium 4.6 5.3 H Chloride 103 107 Carbon Dioxide 15 L 13 L BUN 18 H D 17 Creatinine 0.75 0.69 L Glucose 304 H 299 H Calcium 9.8 8.1 L Liver Function 05/23/25 Range/Units 09:21 Total Bilirubin 1.1 (0.2-1.3) mg/dL AST 29 (14-36) U/L ALT 18 (6-35) U/L Alkaline Phosphatase 103 (38-126) U/L Albumin 4.8 (3.5-5.1) g/dL Urine 05/23/25 Range/Units 09:19 Urine Color Yellow (Yellow) Urine Appearance Cloudy H (Clear) Urine pH 5.5 (5.0-9.0) Ur Specific [place] 1.037 H (1.001-1.035) Urine Protein Trace (Negative) mg/dL Urine Glucose (UA) 3+ H (Negative) mg/dL Quality VTE Prophylaxis VTE prophylaxis: mechanical ordered Hospitalist MIPS Advance Care Plan I have confirmed that the patient's Advanced Care Plan is present, code status is documented, or surrogate decision maker is listed in patient medical record.: Yes
[2025-05-23] MEDS: INSULIN HUMAN REGULAR (*BKC) 100 UNITS in SODIUM CHLORIDE 0.9% IV 99 ML 5.5 UNITS IV CONT (13:25)
[2025-05-23] MEDS: MORPHINE SULFATE (*CRX) 2 MG/ML INJ IV PUSH (13:27)
--- NOTE | 2025-05-23 13:33 | P.HP_ITS ---
H&P: HPI History of Present Illness Date/Time: 05/23/25 13:33 Chief Complaint: Hyperglycemia Narrative: 19 y/o F with PMH of DM1 presents here with hyperglycemia. The patient presents here from home on 05/23 for further evaluation of hyperglycemia and concerns for DKA. She reports she has been hypoglycemic since last night, her glucose at home has been running which wean the 300s and 400s. She wears a continuous glucose monitor and an insulin pump which he reports have been functional? She self administered 7.6 units of fast acting insulin at 2:00 a.m. in addition to what her insulin pump had been delivering. Hyperglycemia is accompanied by fatigue, body aches, and 1 episode of nausea and vomiting. She denies accompanying fever, chills, constipation, diarrhea. She does report some mild abdominal discomfort, however recently started cycle. She arrived to the emergency department with a glucose of 278. She reports a history of DKA, last occurrence in October of 2024. Patient is also reporting possible issue with her pump during the needle insertion, however has not noted any issues post insertion. No issues with her continuous glucose monitor. Initial VS at presentation: 98.4? F, HR 118, RR 25, 122/59, and 100% on RA. ED workup showed: WBC 19.5, no anemia, ABG showed a pH 7.328, potassium 4.6 (repeat 5.3), creatinine 0.75 and GFR >60, glucose 304, A1c 6.7%, beta hydroxy 2.19, UA had a cloudy appearance/high specific gravity/3+ glucose/4+ ketones/1+ blood otherwise unremarkable, hCG negative. CT of the abdomen/pelvis showed no acute intra-abdominal/pelvic process. CXR showed no acute cardiopulmonary disease. Review of Systems Review of Systems: All systems reviewed & are unremarkable except as noted in HPI and below [facility] Past Medical History Medical History Encounter for surveillance of other contraceptives Type 1 diabetes Family History Family History (Updated 05/23/25 @ 14:24 by Ana M Pennington RN) Grandparent Diabetes mellitus Grandparent Acute myocardial infarction Mother Hypertension Grandparent Breast cancer Grandparent Bladder cancer Social History Social History Smoking status: Never smoker Alcohol intake: never Substance use: never Do You Feel Safe in your Home?: Yes Lack of Transportation: No Lack of Food: Never True Current Housing: I Have Housing Concerned About Future Housing: No Difficulty Paying Gas/Electric Bills: No Difficulty Paying for Meds: No Currently Unemployed: No Education: High School Diploma/GED Difficulty w/ Childcare or Family Care: No Living arrangements: with family Occupation/Education: student Additional occupation/education comments: [employer]i in high school Gender identity (if verbalized by the patient): Female Sexual Orientation (if Verbalized by the Patient): Bisexual Spiritual care concerns: No Meds Home Medications and Allergies Home Medications ?Medication ?Instructions ?Recorded ?Confirmed ?Type blood-glucose sensor ([employer] G6 11/14/24 05/23/25 History Sensor device) blood-glucose transmitter ([employer] 11/14/24 05/23/25 History G6 Transmitter device) insulin pump cart,auto,BT,G6/7 11/14/24 05/23/25 History (Omnipod 5 G6-G7 Pods (Gen 5) subcutaneous cartridge) insulin pump cartridge,auto 11/14/24 05/23/25 History dose,BT,G6/G7 with controller subcutaneous (Omnipod 5 G6-G7 Intro Kit(Gen 5) subcutaneous cartridge and controller) glucagon 3 mg/actuation nasal 3 mg intranasal ONCE 05/23/25 05/23/25 History spray ([employer]) insulin lispro 100 unit/mL 1 sliding scale dose subcut TIDWM 05/23/25 05/23/25 History subcutaneous pen (Humalog KwikPen (U-100) Insulin) Allergies Allergy/AdvReac Type Severity Reaction Status Date / Time No Known Allergies Allergy Verified 05/23/25 08:53 Vital Signs Vital Signs - 24 hr 05/23/25 08:53 05/23/25 09:17 05/23/25 10:46 Temperature 98.4 F Pulse Rate 119 H 120 H 118 H Respiratory Rate 25 H 19 26 H Blood Pressure 122/59 L 113/73 124/59 L Pulse Oximetry 100 100 100 Oxygen Delivery Room Air 05/23/25 11:48 05/23/25 12:28 05/23/25 13:29 Temperature Pulse Rate 116 H 123 H 120 H Respiratory Rate 26 H 17 25 H Blood Pressure 119/63 114/53 L 125/73 Pulse Oximetry 100 100 99 Oxygen Delivery Exam Const: General: comfortable and no acute distress Other: , female, modestly ill-appearing HENMT: Face/Nose/Sinus: Normal nares present Mouth: Yes dry mucous membranes Eyes: General: appearance normal, both eyes and all related structures Sc abiodun: sclerae normal Pupils: Equal, round and reactive pupils present EOM: EOMs intact bilaterally Resp: Effort & Inspection: normal respiratory effort Auscultation: clear to auscultation bilaterally Cardio: Rate: regular rate Rhythm: regular rhythm Other: S1-S2 present without murmur, rub, ectopy GI: Other: Abdomen soft, nondistended, nontender. Normoactive bowel sounds in all quadrants. Skin: General skin exam: normal color and no rashes or lesions noted Wounds: no wounds Neuro: Speech: normal speech Motor exam (neuro): 5/5 motor strength present throughout Sensory Exam: normal sensation Other: A&O x4 Extrem: General: normal to inspection Psych: Mental Status: mental status grossly normal Affect: normal affect Other: Good insight and judgment, pleasant H&P: Results Labs Labs: Short CBC 05/23/25 Range/Units 09:21 WBC 19.5 H (4.5-10.0) K/mm3 Hgb 13.7 D (12.0-15.0) g/dL Hct 40.6 (37.0-47.0) % Plt Count 323 (150-375) k/mm3 BMP 05/23/25 05/23/25 09:21 12:03 Sodium 137 138 Potassium 4.6 5.3 H Chloride 103 107 Carbon Dioxide 15 L 13 L BUN 18 H D 17 Creatinine 0.75 0.69 L Glucose 304 H 299 H Calcium 9.8 8.1 L Liver Function 05/23/25 Range/Units 09:21 Total Bilirubin 1.1 (0.2-1.3) mg/dL AST 29 (14-36) U/L ALT 18 (6-35) U/L Alkaline Phosphatase 103 (38-126) U/L Albumin 4.8 (3.5-5.1) g/dL Urine 05/23/25 Range/Units 09:19 Urine Color Yellow (Yellow) Urine Appearance Cloudy H (Clear) Urine pH 5.5 (5.0-9.0) Ur Specific [place] 1.037 H (1.001-1.035) Urine Protein Trace (Negative) mg/dL Urine Glucose (UA) 3+ H (Negative) mg/dL Assessment and Plan Assessment and plan (1) Diabetic ketoacidosis without coma: Qualifiers: Diabetes mellitus type: type 1 Qualified Code(s): E10.10 - Type 1 diabetes mellitus with ketoacidosis without coma Code(s): E11.10 - Type 2 diabetes mellitus with ketoacidosis without coma Status: Acute Assessment and Plan: - history of type 1 diabetes - initial glucose 304 - labs: WBC 19.5, pH 7.3-8, potassium 4.6, A1c 6.7%, beta hydroxy 2.19 - trend BMP Q4H, check Mag and Phos - DKA protocol initiated - IV fluids: given 3L in ED. Now on 150 mL/hr of D5/0.45% NS - insulin gtt currently running at 5.5 u/hr - clear liquid - hold home medications - tool machine setup operator consulted, see note - consumer educator consulted - wearing apparel presser consulted Plan Diet: Clear liquid GI Prophylaxis: DVT Prophylaxis: SCDs IV fluids: 150 mL/hr of D5/0.45% NS Lines/Tubes: Peripheral IV Code Status: Full code Quality VTE Prophylaxis VTE prophylaxis: mechanical ordered Critical Care Time: I personally spent 35 minutes of direct patient care including (but not limited to) the physical examination, decision-making, bedside evaluation, review of medical records, review of labs and imaging, discussion with nursing staff and other providers for collaborative, critical care management of this patient. Hospitalist TRESSA Advance Care Plan I have confirmed that the patient's Advanced Care Plan is present, code status is documented, or surrogate decision maker is listed in patient medical record.: Yes Medication Reconciliation I have utilized all available resources to obtain, update and review the patients current medications (includes all prescriptions, OTC, herbals, cannabis, and nutritional supplements).: Yes
--- NOTE | 2025-05-23 14:20 | ADMGEN ---
This patient, Anaid Dimas, was admitted to Intensive Care Unit-8. Patient/family oriented to hospital policies and general routines including ID bracelet, bed and alarms, visiting hours, pain management, procedures, bathroom and other care routines, personal items, smoking policy, room service/diet, and visiting hours. Information on how to activate the Rapid Response Team has been discussed. Patient/Family are encouraged to report perceived risks to care and to ask questions if they do not understand what they are told or what they should do.
[2025-05-23] MEDS: DEXTROSE 5%/0.45% SOD CHL 1,000 ML 150 ML IV CONT (14:25)
[2025-05-23 14:40] LABS: MRSA (PCR) NOT DETECTED (NOT DETECTE)
--- NOTE | 2025-05-23 15:59 | PCCDE ---
Discussed patient status nurse Ana M Pennington. Patient's blood glucose levels are going down and GAP improving. The plan is to resume her home insulin pump when able. Patient will follow with her established Washer Engineer Helper, Dr. Fuentes.
[2025-05-23 17:34] LABS: Anion Gap 8 mmol/L (4-12); Blood Urea Nitrogen 15 mg/dL (7-17); Calcium 8.2 mg/dL (8.4-10.2); Carbon Dioxide 16 mmol/L (22-30); Chloride 108 mmol/L (98-107); Estimated CRCL calculation 70 ml/min; Estimated Glomerular Filt Rate > 60; Glucose 195 mg/dL (65-110); Potassium 4.3 mmol/L (3.4-5.0); Sodium 132 mmol/L (137-145)
--- NOTE | 2025-05-23 18:49 | PC.NURSE ---
This RN called Dr. Givens with BMP results. New orders to allow pt to apply home insulin pump, stop insulin drip and IVF 2 hours after pump has been applied. Pt may have a diabetic diet and to be placed on q4h accu-checks with moderate sliding scale. Orders entered by this RN
[2025-05-23] MEDS: INSULIN ASPART (*BKC) 100 UNITS/ML SUB-Q ×2 (20:32→23:46)
[2025-05-24] VITALS (8 sets, daily range): BP systolic 105–128; BP diastolic 57–91; PULSE 67–106; RESP 14–23; TEMP 36.7–37.2; O2SAT 97–100
[2025-05-24 04:19] LABS: Hematocrit 32.9 % (37.0-47.0); Hemoglobin 11.2 g/dL (12.0-15.0); Immature Granulocyte Percent A 0.3 % (0-0.5); Lymphocytes Absolute Auto 3.77 K/mm3 (0.9-3.2); Mean Corpuscular HGB Conc 34.0 g/dl (32-36); Mean Corpuscular Hemoglobin 29.7 pg (26-34); Mean Corpuscular Volume 87.3 fl (80-100); Nucleated Red Blood Cells Absolute Auto 0.000 K/mm3 (0.0-0.012); Nucleated Red Blood Cells Perc 0.0 % (0.0-0.2); Platelet Count Result 245 k/mm3 (150-375); Red Blood Count 3.77 M/mm3 (4.2-5.4); White Blood Count 15.2 K/mm3 (4.5-10.0)
[2025-05-24 04:43] LABS: Alanine Aminotransferase 11 U/L (6-35); Albumin Level 3.2 g/dL (3.5-5.1); Alkaline Phosphatase 58 U/L (38-126); Anion Gap 6 mmol/L (4-12); Aspartate Amino Transferase 20 U/L (14-36); Bilirubin,Total 0.7 mg/dL (0.2-1.3); Blood Urea Nitrogen 13 mg/dL (7-17); Calcium 8.4 mg/dL (8.4-10.2); Carbon Dioxide 19 mmol/L (22-30); Chloride 109 mmol/L (98-107); Estimated CRCL calculation 71 ml/min; Estimated Glomerular Filt Rate > 60; Glucose 190 mg/dL (65-110); Magnesium 2.0 mg/dL (1.6-2.3); Potassium 4.0 mmol/L (3.4-5.0); Sodium 134 mmol/L (137-145); Total Protein 5.8 g/dL (6.3-8.2)
[2025-05-24] MEDS: HOME MEDICATION INSULIN 1 EACH XX (08:08)
--- NOTE | 2025-05-24 08:41 | WPDINTPN ---
Progress Note: A&P Assessment and Plan (1) DKA (diabetic ketoacidosis): Qualifiers: Diabetes mellitus complication detail: without coma Diabetes mellitus type: type 1 Qualified Code(s): E10.10 - Type 1 diabetes mellitus with ketoacidosis without coma Code(s): E11.10 - Type 2 diabetes mellitus with ketoacidosis without coma Status: Acute Assessment and Plan: Likely secondary to insulin pump malfunction or incorrect insertion of the needle. No objective sign of infection Patient was treated with insulin infusion, IVF bolus and infusion Serial labs were done Her anion gap is closed and patient is now asymptomatic. Patient has been transition to her insulin pump. Unfortunately patient does not have her Dexcom with her hands there is no communication between blood sugar monitoring and her insulin pump. She will continue with basal insulin infusion rate to insulin pump and has been adding her carb count to insulin pump for bolus dosing I will continue sliding scale insulin monitoring to provide additional insulin in case of blood sugars elevated. She is going to ask her mother to bring her Dexcom so we can get that set up prior to discharge to avoid any potential problems at home once she is discharged. Patient appears to have limited knowledge of ins and outs of working of insulin pump Pending Consult for dietitian and outreach educator (2) Leukocytosis: Code(s): D72.829 - Elevated white blood cell count, unspecified Status: Acute Assessment and Plan: Likely stress response. UA negative and chest abdomen pelvis imaging negative for any evidence of infection. Monitor Improving (3) Hyperkalemia: Code(s): E87.5 - Hyperkalemia Status: Acute Assessment and Plan: Likely secondary to DKA. Resolved (4) Electrolyte abnormality: Code(s): E87.8 - Other disorders of electrolyte and fluid balance, not elsewhere classified Status: Acute Assessment and Plan: Replace low phosphorus Plan DVT prophylaxis -SCD, anticipate patient will ambulate today Nutrition -consistent carbohydrate diet Code Status - Full Code Transfer to medical floor Subjective Date/time seen: 05/24/25 Overnight events reviewed. Afebrile Patient was transitioned to her insulin pump. She is tolerating p.o. diet. She denies any symptoms or complaints this morning Patient denies fever, chest pain, shortness of breath, cough, nausea vomiting, abdominal pain,, diarrhea, headache or constipation. All other systems were reviewed and were negative Other Vitals acceptable Review of Systems Review of Systems: All systems reviewed & are unremarkable except as noted in HPI and below (HPI) Exam Narrative: General: Pt is alert awake and in NAD Lungs/Chest: Trachea central Clear BS B/L, No crackles or wheezing. Cardiac: RRR. Normal S1 S2. No murmurs Circulation: Pedal pulses are intact and symmetrical. Abdomen: Normal bowel sounds.. Soft. NT. ND. Extremities: No clubbing, cyanosis or edema. Warm : Lundy in place Neurologic: Follows commands. Moves all 4 extremities PERRL AO x3 Skin: No Rash Objective Data Vital Signs Vital Signs: Vital Signs - 24 hr 05/23/25 08:53 05/23/25 09:17 05/23/25 10:46 Temperature 36.9 C Pulse Rate 119 H 120 H 118 H Respiratory Rate 25 H 19 26 H Blood Pressure 122/59 L 113/73 124/59 L Pulse Oximetry 100 100 100 Oxygen Delivery Room Air 05/23/25 11:48 05/23/25 12:28 05/23/25 13:29 Temperature Pulse Rate 116 H 123 H 120 H Respiratory Rate 26 H 17 25 H Blood Pressure 119/63 114/53 L 125/73 Pulse Oximetry 100 100 99 Oxygen Delivery 05/23/25 14:00 05/23/25 14:10 05/23/25 14:15 Temperature 36.8 C Pulse Rate 117 H 113 H 112 H Respiratory Rate 21 H 17 Blood Pressure 123/70 Pulse Oximetry 99 100 Oxygen Delivery Room Air 05/23/25 14:22 05/23/25 16:00 05/23/25 16:00 Temperature 36.4 C L 36.8 C Pulse Rate 112 H 99 99 Respiratory Rate 17 19 19 Blood Pressure 138/83 118/74 Pulse Oximetry 100 100 100 Oxygen Delivery Room Air 05/23/25 16:00 05/23/25 18:00 05/23/25 18:00 Temperature 36.7 C Pulse Rate 102 H 109 H 98 Respiratory Rate 18 Blood Pressure 120/69 Pulse Oximetry 100 Oxygen Delivery 05/23/25 20:00 05/23/25 20:00 05/23/25 20:30 Temperature 36.9 C Pulse Rate 102 H 100 102 H Respiratory Rate 22 H 22 H Blood Pressure 133/82 Pulse Oximetry 100 100 Oxygen Delivery Room Air 05/23/25 22:00 05/23/25 22:00 05/23/25 23:50 Temperature Pulse Rate 104 H 104 H 104 H Respiratory Rate 25 H 25 H Blood Pressure 124/75 Pulse Oximetry 100 100 Oxygen Delivery Room Air 05/24/25 00:00 05/24/25 00:00 05/24/25 02:00 Temperature 36.7 C Pulse Rate 89 89 90 Respiratory Rate 20 Blood Pressure 115/57 L Pulse Oximetry 97 Oxygen Delivery 05/24/25 02:00 05/24/25 03:52 05/24/25 04:00 Temperature Pulse Rate 90 94 92 Respiratory Rate 20 20 Blood Pressure 107/67 Pulse Oximetry 97 98 Oxygen Delivery Room Air 05/24/25 04:00 05/24/25 06:00 05/24/25 06:00 Temperature 36.7 C Pulse Rate 92 83 83 Respiratory Rate 20 23 H Blood Pressure 105/66 108/83 Pulse Oximetry 99 100 Oxygen Delivery 05/24/25 08:00 Temperature 37.2 C Pulse Rate 106 H Respiratory Rate 16 Blood Pressure 125/74 Pulse Oximetry 100 Oxygen Delivery Intake/Output Intake/Output: Intake & Output 05/21/25 05/22/25 05/23/25 05/24/25 23:59 23:59 23:59 23:59 Intake Total 5407.5 Balance 5407.5 Meds/Results Medications: Active Medications Generic Name Dose Route Start Last Admin Trade Name Freq PRN Reason Stop Dose Admin Acetaminophen 650 mg 05/23/25 16:25 Acetaminophen 325 Mg Tablet PO Q6H PRN Mild Pain (1-3) or Fever Dextrose 12.5 gm 05/23/25 12:01 Dextrose 50% 25 Gm/50 Ml Syringe IV PUSH PRN PRN Hypoglycemia Protocol Glucagon 1 mg 05/23/25 12:01 Glucagon For Inj 1 Mg Vial IM PRN PRN Hypoglycemia Protocol Glucose 15 gm 05/23/25 12:01 Glucose Oral Gel 15 Gm Of Glucse In 37.5 Gm Tube PO PRN PRN Hypoglycemia Protocol Dextrose 1,000 mls @ 100 mls/hr 05/23/25 12:01 Dextrose 5% 1,000 Ml IVPB PRN PRN Hypoglycemia Protocol Insulin Aspart 3 - 6 units 05/23/25 21:00 05/24/25 08:08 Insulin Aspart (*Bkc) 100 Units/Ml SUB-Q Not Given Q4HR JEFF Protocol Insulin Human Regular 1 each 05/24/25 06:00 05/24/25 08:08 Home Medication Insulin XX 1 each DAILY@0600 JEFF Administration Ketorolac Tromethamine 30 mg 05/23/25 13:12 Ketorolac 30 Mg/Ml Vial (*Bkc) IV PUSH 05/28/25 13:11 Q6H PRN Pain Rated 4-6 Morphine Sulfate 2 mg 05/23/25 13:12 Morphine Sulfate (*Crx) 2 Mg/Ml Inj IV PUSH Q2H PRN Pain Rated 7-10 Ondansetron HCl 4 mg 05/23/25 13:12 Ondansetron Inj 4 Mg/2 Ml Vial IV PUSH Q4H PRN Nausea Radiology Results: ITS Impressions Abdomen/Pelvis CT 05/23/25 10:39 IMPRESSION: 1. No acute intra-abdominal/pelvic process. Chest X-Ray 05/23/25 10:45 IMPRESSION: 1. No acute cardiopulmonary disease. Labs Labs: Laboratory Results - last 24 hr 05/23/25 05/23/25 05/23/25 08:52 09:17 09:19 WBC RBC Hgb Hct MCV MCH MCHC RDW Plt Count MPV Immature Gran % (Auto) Neut % (Auto) Lymph % (Auto) [place] % (Auto) Eos % (Auto) Baso % (Auto) Lymph # (Auto) [place] # (Auto) Eos # (Auto) Baso # (Auto) Abs Immat Gran (auto) Absolute Neuts (auto) Absolute Nucleated RBC Nucleated RBC % Puncture Site ABG pH ABG pCO2 ABG pO2 ABG PO2/FiO2 Ratio ABG HCO3 ABG O2 Saturation ABG O2 Content ABG Base Excess A-a Gradient Oxyhemoglobin Carboxyhemoglobin Methemoglobin Reduced Hemoglobin Total Hemoglobin O2 Delivery Device O2 Liters/Min FiO2 Sodium Potassium Chloride Carbon Dioxide Anion Gap BUN Creatinine Estim Creat Clear Calc Estimated GFR Glucose POC Capillary Glucose 278 H Hemoglobin A1c Calcium Phosphorus Magnesium Total Bilirubin AST ALT Alkaline Phosphatase Total Protein Albumin Beta-Hydroxybutyrate/Acetoacetate Urine Color Yellow Urine Appearance Cloudy H Urine pH 5.5 Ur Specific [place] 1.037 H Urine Protein Trace Urine Glucose (UA) 3+ H Urine Ketones 4+ H Ur Blood (Man) 1+ H Urine Nitrate Negative Urine Bilirubin Negative Urine Urobilinogen 0.2 Leukocyte Esterase Rfl Negative Urine RBC 0-2 Urine WBC 0-5 Ur Squamous Epith Cells None seen Urine Bacteria None seen Urine Casts 0-2 POC Urine HCG, Qual Negative Nasal MRSA (PCR) Influenza A (RT-PCR) Influenza B (RT-PCR) RSV (RT-PCR) SARS-CoV-2 RNA (RT-PCR) 05/23/25 05/23/25 05/23/25 09:21 09:23 10:05 WBC 19.5 H RBC 4.61 Hgb 13.7 D Hct 40.6 MCV 88.1 MCH 29.7 MCHC 33.7 RDW 12.8 Plt Count 323 MPV 9.6 Immature Gran % (Auto) 0.4 Neut % (Auto) 85.6 H Lymph % (Auto) 8.9 L [place] % (Auto) 4.8 Eos % (Auto) 0.0 Baso % (Auto) 0.3 Lymph # (Auto) 1.74 [place] # (Auto) 0.9 H Eos # (Auto) 0.0 Baso # (Auto) 0.1 Abs Immat Gran (auto) 0.08 H Absolute Neuts (auto) 16.7 H Absolute Nucleated RBC 0.000 Nucleated RBC % 0.0 Puncture Site Right radial ABG pH 7.328 L ABG pCO2 30.2 L ABG pO2 97.3 ABG PO2/FiO2 Ratio 4.63 ABG HCO3 15.5 L ABG O2 Saturation 97.1 ABG O2 Content 18.9 ABG Base Excess -9.1 A-a Gradient 16.3 Oxyhemoglobin 96.1 Carboxyhemoglobin 0.6 Methemoglobin 0.4 Reduced Hemoglobin 2.9 Total Hemoglobin 13.9 O2 Delivery Device Room air O2 Liters/Min Not Reportable FiO2 21 Sodium 137 Potassium 4.6 Chloride 103 Carbon Dioxide 15 L Anion Gap 19 H BUN 18 H D Creatinine 0.75 Estim Creat Clear Calc 82 Estimated GFR > 60 Glucose 304 H POC Capillary Glucose Hemoglobin A1c 6.7 H Calcium 9.8 Phosphorus 4.5 Magnesium 1.8 Total Bilirubin 1.1 AST 29 ALT 18 Alkaline Phosphatase 103 Total Protein 8.3 H Albumin 4.8 Beta-Hydroxybutyrate/Acetoacetate 2.19 H Urine Color Urine Appearance Urine pH Ur Specific [place] Urine Protein Urine Glucose (UA) Urine Ketones Ur Blood (Man) Urine Nitrate Urine Bilirubin Urine Urobilinogen Leukocyte Esterase Rfl Urine RBC Urine WBC Ur Squamous Epith Cells Urine Bacteria Urine Casts POC Urine HCG, Qual Nasal MRSA (PCR) Influenza A (RT-PCR) Negative Influenza B (RT-PCR) Negative RSV (RT-PCR) Negative SARS-CoV-2 RNA (RT-PCR) Negative 05/23/25 05/23/25 05/23/25 11:50 12:03 12:17 WBC RBC Hgb Hct MCV MCH MCHC RDW Plt Count MPV Immature Gran % (Auto) Neut % (Auto) Lymph % (Auto) [place] % (Auto) Eos % (Auto) Baso % (Auto) Lymph # (Auto) [place] # (Auto) Eos # (Auto) Baso # (Auto) Abs Immat Gran (auto) Absolute Neuts (auto) Absolute Nucleated RBC Nucleated RBC % Puncture Site ABG pH ABG pCO2 ABG pO2 ABG PO2/FiO2 Ratio ABG HCO3 ABG O2 Saturation ABG O2 Content ABG Base Excess A-a Gradient Oxyhemoglobin Carboxyhemoglobin Methemoglobin Reduced Hemoglobin Total Hemoglobin O2 Delivery Device O2 Liters/Min FiO2 Sodium 138 Potassium 5.3 H Chloride 107 Carbon Dioxide 13 L Anion Gap 18 H BUN 17 Creatinine 0.69 L Estim Creat Clear Calc 89 Estimated GFR > 60 Glucose 299 H POC Capillary Glucose 340 H 302 H Hemoglobin A1c Calcium 8.1 L Phosphorus Magnesium Total Bilirubin AST ALT Alkaline Phosphatase Total Protein Albumin Beta-Hydroxybutyrate/Acetoacetate Urine Color Urine Appearance Urine pH Ur Specific [place] Urine Protein Urine Glucose (UA) Urine Ketones Ur Blood (Man) Urine Nitrate Urine Bilirubin Urine Urobilinogen Leukocyte Esterase Rfl Urine RBC Urine WBC Ur Squamous Epith Cells Urine Bacteria Urine Casts POC Urine HCG, Qual Nasal MRSA (PCR) Influenza A (RT-PCR) Influenza B (RT-PCR) RSV (RT-PCR) SARS-CoV-2 RNA (RT-PCR) 05/23/25 05/23/25 05/23/25 13:16 13:22 14:20 WBC RBC Hgb Hct MCV MCH MCHC RDW Plt Count MPV Immature Gran % (Auto) Neut % (Auto) Lymph % (Auto) [place] % (Auto) Eos % (Auto) Baso % (Auto) Lymph # (Auto) [place] # (Auto) Eos # (Auto) Baso # (Auto) Abs Immat Gran (auto) Absolute Neuts (auto) Absolute Nucleated RBC Nucleated RBC % Puncture Site ABG pH ABG pCO2 ABG pO2 ABG PO2/FiO2 Ratio ABG HCO3 ABG O2 Saturation ABG O2 Content ABG Base Excess A-a Gradient Oxyhemoglobin Carboxyhemoglobin Methemoglobin Reduced Hemoglobin Total Hemoglobin O2 Delivery Device O2 Liters/Min FiO2 Sodium Potassium Chloride Carbon Dioxide Anion Gap BUN Creatinine Estim Creat Clear Calc Estimated GFR Glucose POC Capillary Glucose 249 H 201 H Hemoglobin A1c Calcium Phosphorus Magnesium Total Bilirubin AST ALT Alkaline Phosphatase Total Protein Albumin Beta-Hydroxybutyrate/Acetoacetate Urine Color Urine Appearance Urine pH Ur Specific [place] Urine Protein Urine Glucose (UA) Urine Ketones Ur Blood (Man) Urine Nitrate Urine Bilirubin Urine Urobilinogen Leukocyte Esterase Rfl Urine RBC Urine WBC Ur Squamous Epith Cells Urine Bacteria Urine Casts POC Urine HCG, Qual Nasal MRSA (PCR) Not detected Influenza A (RT-PCR) Influenza B (RT-PCR) RSV (RT-PCR) SARS-CoV-2 RNA (RT-PCR) 05/23/25 05/23/25 05/23/25 15:18 16:18 17:08 WBC RBC Hgb Hct MCV MCH MCHC RDW Plt Count MPV Immature Gran % (Auto) Neut % (Auto) Lymph % (Auto) [place] % (Auto) Eos % (Auto) Baso % (Auto) Lymph # (Auto) [place] # (Auto) Eos # (Auto) Baso # (Auto) Abs Immat Gran (auto) Absolute Neuts (auto) Absolute Nucleated RBC Nucleated RBC % Puncture Site ABG pH ABG pCO2 ABG pO2 ABG PO2/FiO2 Ratio ABG HCO3 ABG O2 Saturation ABG O2 Content ABG Base Excess A-a Gradient Oxyhemoglobin Carboxyhemoglobin Methemoglobin Reduced Hemoglobin Total Hemoglobin O2 Delivery Device O2 Liters/Min FiO2 Sodium 132 L Potassium 4.3 Chloride 108 H Carbon Dioxide 16 L Anion Gap 8 BUN 15 Creatinine 0.64 L Estim Creat Clear Calc 70 Estimated GFR > 60 Glucose 195 H POC Capillary Glucose 184 H 182 H Hemoglobin A1c Calcium 8.2 L Phosphorus Magnesium Total Bilirubin AST ALT Alkaline Phosphatase Total Protein Albumin Beta-Hydroxybutyrate/Acetoacetate Urine Color Urine Appearance Urine pH Ur Specific [place] Urine Protein Urine Glucose (UA) Urine Ketones Ur Blood (Man) Urine Nitrate Urine Bilirubin Urine Urobilinogen Leukocyte Esterase Rfl Urine RBC Urine WBC Ur Squamous Epith Cells Urine Bacteria Urine Casts POC Urine HCG, Qual Nasal MRSA (PCR) Influenza A (RT-PCR) Influenza B (RT-PCR) RSV (RT-PCR) SARS-CoV-2 RNA (RT-PCR) 05/23/25 05/23/25 05/23/25 18:45 19:39 20:32 WBC RBC Hgb Hct MCV MCH MCHC RDW Plt Count MPV Immature Gran % (Auto) Neut % (Auto) Lymph % (Auto) [place] % (Auto) Eos % (Auto) Baso % (Auto) Lymph # (Auto) [place] # (Auto) Eos # (Auto) Baso # (Auto) Abs Immat Gran (auto) Absolute Neuts (auto) Absolute Nucleated RBC Nucleated RBC % Puncture Site ABG pH ABG pCO2 ABG pO2 ABG PO2/FiO2 Ratio ABG HCO3 ABG O2 Saturation ABG O2 Content ABG Base Excess A-a Gradient Oxyhemoglobin Carboxyhemoglobin Methemoglobin Reduced Hemoglobin Total Hemoglobin O2 Delivery Device O2 Liters/Min FiO2 Sodium Potassium Chloride Carbon Dioxide Anion Gap BUN Creatinine Estim Creat Clear Calc Estimated GFR Glucose POC Capillary Glucose 280 H 247 H 311 H Hemoglobin A1c Calcium Phosphorus Magnesium Total Bilirubin AST ALT Alkaline Phosphatase Total Protein Albumin Beta-Hydroxybutyrate/Acetoacetate Urine Color Urine Appearance Urine pH Ur Specific [place] Urine Protein Urine Glucose (UA) Urine Ketones Ur Blood (Man) Urine Nitrate Urine Bilirubin Urine Urobilinogen Leukocyte Esterase Rfl Urine RBC Urine WBC Ur Squamous Epith Cells Urine Bacteria Urine Casts POC Urine HCG, Qual Nasal MRSA (PCR) Influenza A (RT-PCR) Influenza B (RT-PCR) RSV (RT-PCR) SARS-CoV-2 RNA (RT-PCR) 05/23/25 05/24/25 05/24/25 23:43 04:13 04:19 WBC 15.2 H RBC 3.77 L Hgb 11.2 L Hct 32.9 L MCV 87.3 MCH 29.7 MCHC 34.0 RDW 13.0 Plt Count 245 MPV 8.5 Immature Gran % (Auto) 0.3 Neut % (Auto) 68.2 Lymph % (Auto) 24.8 [place] % (Auto) 6.1 Eos % (Auto) 0.3 Baso % (Auto) 0.3 Lymph # (Auto) 3.77 H [place] # (Auto) 0.9 H Eos # (Auto) 0.1 Baso # (Auto) 0.1 Abs Immat Gran (auto) 0.05 H Absolute Neuts (auto) 10.4 H Absolute Nucleated RBC 0.000 Nucleated RBC % 0.0 Puncture Site ABG pH ABG pCO2 ABG pO2 ABG PO2/FiO2 Ratio ABG HCO3 ABG O2 Saturation ABG O2 Content ABG Base Excess A-a Gradient Oxyhemoglobin Carboxyhemoglobin Methemoglobin Reduced Hemoglobin Total Hemoglobin O2 Delivery Device O2 Liters/Min FiO2 Sodium 134 L Potassium 4.0 Chloride 109 H Carbon Dioxide 19 L Anion Gap 6 BUN 13 Creatinine 0.63 L Estim Creat Clear Calc 71 Estimated GFR > 60 Glucose 190 H POC Capillary Glucose 311 H 199 H Hemoglobin A1c Calcium 8.4 Phosphorus 2.3 L Magnesium 2.0 Total Bilirubin 0.7 AST 20 ALT 11 Alkaline Phosphatase 58 Total Protein 5.8 L Albumin 3.2 L Beta-Hydroxybutyrate/Acetoacetate Urine Color Urine Appearance Urine pH Ur Specific [place] Urine Protein Urine Glucose (UA) Urine Ketones Ur Blood (Man) Urine Nitrate Urine Bilirubin Urine Urobilinogen Leukocyte Esterase Rfl Urine RBC Urine WBC Ur Squamous Epith Cells Urine Bacteria Urine Casts POC Urine HCG, Qual Nasal MRSA (PCR) Influenza A (RT-PCR) Influenza B (RT-PCR) RSV (RT-PCR) SARS-CoV-2 RNA (RT-PCR) 05/24/25 07:05 WBC RBC Hgb Hct MCV MCH MCHC RDW Plt Count MPV Immature Gran % (Auto) Neut % (Auto) Lymph % (Auto) [place] % (Auto) Eos % (Auto) Baso % (Auto) Lymph # (Auto) [place] # (Auto) Eos # (Auto) Baso # (Auto) Abs Immat Gran (auto) Absolute Neuts (auto) Absolute Nucleated RBC Nucleated RBC % Puncture Site ABG pH ABG pCO2 ABG pO2 ABG PO2/FiO2 Ratio ABG HCO3 ABG O2 Saturation ABG O2 Content ABG Base Excess A-a Gradient Oxyhemoglobin Carboxyhemoglobin Methemoglobin Reduced Hemoglobin Total Hemoglobin O2 Delivery Device O2 Liters/Min FiO2 Sodium Potassium Chloride Carbon Dioxide Anion Gap BUN Creatinine Estim Creat Clear Calc Estimated GFR Glucose POC Capillary Glucose 287 H Hemoglobin A1c Calcium Phosphorus Magnesium Total Bilirubin AST ALT Alkaline Phosphatase Total Protein Albumin Beta-Hydroxybutyrate/Acetoacetate Urine Color Urine Appearance Urine pH Ur Specific [place] Urine Protein Urine Glucose (UA) Urine Ketones Ur Blood (Man) Urine Nitrate Urine Bilirubin Urine Urobilinogen Leukocyte Esterase Rfl Urine RBC Urine WBC Ur Squamous Epith Cells Urine Bacteria Urine Casts POC Urine HCG, Qual Nasal MRSA (PCR) Influenza A (RT-PCR) Influenza B (RT-PCR) RSV (RT-PCR) SARS-CoV-2 RNA (RT-PCR) Quality VTE Prophylaxis VTE prophylaxis: mechanical ordered
--- NOTE | 2025-05-24 08:49 | PC.NURSE ---
Spoke with pts mother Stormy. Informed of downgrade status to medical but remains in ICU 8 at this time. Confirmed dexcom (continuous glucose monitor) needs for appropriate monitoring and coverage per our Insulin pump therapy protocol. She stated she would bring in those supplies.
[2025-05-24] MEDS: POTASSIUM/PHOSPHORUS/SODIUM 1.5 GM PACKET 1 PACKET PO (09:09)
--- NOTE | 2025-05-24 09:58 | PC.NURSE ---
Educated patient on insulin moderate sliding scale order parameters. Patient had already given self bolus with breakfast based on point of care result. This RN verified moderate dose sliding scale orders and the insulin pump basil rate orders. Confirmed dosing on patient's bedside agreement documentation form. Charted against RN administered subq sliding scale since patient self administered dose. RN confirmed with patient's mother, Stormy, that she will be bringing dexcom supplies in when she visits.
--- NOTE | 2025-05-24 16:37 | PCCDE ---
Met with patient and mother around [id number] today. Patient questioned if she was comfortable and knowledgable managing her insulin pump. She stated she is. Her mother voiced that she got the insulin pump in August 2024, and also wears a GCM for additional monitoring. The patient was able to show me her basal rates on her phone and they correlate with what she informed the ICU staff. We talked about causative factors that could have contributed to her being in DKA again, as she was also admitted in October for DKA. She has had type 1 since she was 7 and has struggled with hyper and hypoglycemia, therefore her Planting Machine Operator ordered the insulin pump. The mother states causative factors for hyperglycemia is usually non-compliance with diet and possibly calculating meal time and correction doses accurately. We talked about having resources at hand for carb counting and correction dosing. The mother referred to handouts that her Planting Machine Operator provided them and that Anaid has those on her phone. I talked to them about outpatient education with [facility] and or dietitians and the types of education and resources they can provided. I provided them with a copy of the outpatient brochure, although she said they have had a lot of education over the years. I asked how often they see Lexie, and she said every 3 - 4 months. I informed both that we will want to assure she has a follow up appointment scheduled kristal after discharge. I asked if the mother could call today and let the ICU nurse know the date and time of the appointment. Anaid did seem disengaged during some of the conversations. I reiterated that she has to take accountability and it is up to her to manage her insulin pump. We discussed safety and potential complications with having a pump and not managing it effectively. We talked about the plan for discharge and they both want to keep the pump on, and not go back to SQ insulin dosing. They do have Lantus SQ available at home as a back up if needed - they explained that the admission in October for DKA was because the pump was not working properly. With her blood glucose still running high, they are not opposed to increasing the basal rates if the doctors/providers think that is best. Lunch arrived and her blood glucose was checked using the hospital meter - result 333. I watched and provided guidance as Aanid (with a lot of instruction and reminders from her mother) figured out the number of carbs that her meal would be, and then calculate a meal time bolus amount based on a 1 unit to 10 carbs ratio. This calculated to 4.8. The mother helped Anaid with the resource that they use to determine correction dosing. Per their equation, it was 4 units. Anaid then administered 8.8 units via her pump. All of this information was shared with Andrey Kinney RN, which he will share with Dr. Givens.
[2025-05-24] MEDS: INSULIN ASPART (*BKC) 100 UNITS/ML SUB-Q ×2 (16:54→20:28)
--- NOTE | 2025-05-24 17:43 | PC.NURSE ---
This patient, Anaid Dimas, was transferred to [facility] on 05/24/25 at 1743. Personal belongings sent with patient. Report given to [facility]. Appropriate documentation sent with patient.
--- NOTE | 2025-05-24 17:52 | PC.NURSE ---
This patient, Anaid Dimas, was received from ICU on 05/24/25 at 1753. Patient/family oriented to unit policies and routines
[2025-05-25] MEDS: INSULIN ASPART (*BKC) 100 UNITS/ML SUB-Q ×4 (00:55→17:23)
[2025-05-25 05:31] LABS: Hematocrit 33.8 % (37.0-47.0); Hemoglobin 11.6 g/dL (12.0-15.0); Immature Granulocyte Percent A 0.1 % (0-0.5); Lymphocytes Absolute Auto 4.12 K/mm3 (0.9-3.2); Mean Corpuscular HGB Conc 34.3 g/dl (32-36); Mean Corpuscular Hemoglobin 29.4 pg (26-34); Mean Corpuscular Volume 85.8 fl (80-100); Nucleated Red Blood Cells Absolute Auto 0.000 K/mm3 (0.0-0.012); Nucleated Red Blood Cells Perc 0.0 % (0.0-0.2); Platelet Count Result 276 k/mm3 (150-375); Red Blood Count 3.94 M/mm3 (4.2-5.4); White Blood Count 9.4 K/mm3 (4.5-10.0)
[2025-05-25 05:34] VITALS: BP 116/58; PULSE 94; RESP 16; TEMP 36.7; O2SAT 98
[2025-05-25 05:42] LABS: Alanine Aminotransferase 14 U/L (6-35); Albumin Level 3.8 g/dL (3.5-5.1); Alkaline Phosphatase 62 U/L (38-126); Anion Gap 9 mmol/L (4-12); Aspartate Amino Transferase 22 U/L (14-36); Bilirubin,Total 0.6 mg/dL (0.2-1.3); Blood Urea Nitrogen 14 mg/dL (7-17); Calcium 9.1 mg/dL (8.4-10.2); Carbon Dioxide 23 mmol/L (22-30); Chloride 104 mmol/L (98-107); Estimated CRCL calculation 78 ml/min; Estimated Glomerular Filt Rate > 60; Glucose 153 mg/dL (65-110); Magnesium 1.9 mg/dL (1.6-2.3); Potassium 3.8 mmol/L (3.4-5.0); Sodium 136 mmol/L (137-145); Total Protein 6.6 g/dL (6.3-8.2)
[2025-05-25] MEDS: HOME MEDICATION INSULIN 1 EACH XX (06:24)
[2025-05-25 08:40] VITALS: O2SAT 99
--- NOTE | 2025-05-25 12:58 | P.PNIM_ITS ---
Progress Note: A&P Assessment and Plan (1) DKA (diabetic ketoacidosis): Qualifiers: Diabetes mellitus complication detail: without coma Diabetes mellitus type: type 1 Qualified Code(s): E10.10 - Type 1 diabetes mellitus with ketoacidosis without coma Code(s): E11.10 - Type 2 diabetes mellitus with ketoacidosis without coma Status: Acute Assessment and Plan: * Likely secondary to insulin pump malfunction or incorrect insertion of the needle. No objective sign of infection * Patient was treated with insulin infusion, IVF bolus and infusion * Serial labs were done * Her anion gap is closed and patient is now asymptomatic. Patient has been transition to her insulin pump. Unfortunately patient does not have her Dexcom with her hands there is no communication between blood sugar monitoring and her insulin pump. She will continue with basal insulin infusion rate to insulin pump and has been adding her carb count to insulin pump for bolus dosing * I will continue sliding scale insulin monitoring to provide additional insulin in case of blood sugars elevated. She is going to ask her mother to bring her Dexcom so we can get that set up prior to discharge to avoid any potential problems at home once she is discharged. Patient appears to have limited knowledge of ins and outs of working of insulin pump * Pending Consult for dietitian and simulation educator * 7: Anion gap normal, glucose levels do remain high after breakfast has pt reportedly requested a new, very high in carb breakfast after being place on carb conscious diet * Will maintain SSI along with long-acting * Plan for tentative discharge tomorrow as long as pt can tolerate foods and glucose lvls have remained stable (2) Leukocytosis: Code(s): D72.829 - Elevated white blood cell count, unspecified Status: Acute Assessment and Plan: * Likely stress response. UA negative and chest abdomen pelvis imaging negative for any evidence of infection. Monitor * Improving * 7: No leukocytosis (3) Hyperkalemia: Code(s): E87.5 - Hyperkalemia Status: Acute Assessment and Plan: * Likely secondary to DKA. Resolved * 05/25: 3.8 (4) Electrolyte abnormality: Code(s): E87.8 - Other disorders of electrolyte and fluid balance, not elsewhere classified Status: Acute Assessment and Plan: * Replace low phosphorus * 7: Phosphorus 3.3 Plan DVT prophylaxis -SCD, anticipate patient will ambulate today Nutrition -consistent carbohydrate diet Code Status - Full Code Transfer to medical floor Subjective Date/time seen: 05/25/25 12:58 Interval history: 19 y/o F with PMH of DM1 presents here with hyperglycemia. The patient presents here from home on 05/23 for further evaluation of hyperglycemia and concerns for DKA. 05/25/2025 Pt sitting comfortably in bed at time of exam, accompanied by mother. Anion gap has closed and pt no longer having any symptoms. Will work on maintaining normal glucose levels today with hopeful discharge tomorrow. Pt was ordered carb conscious diet but refused this morning an ordered a breakfast with lots of pancakes, subsequent glucose levels were higher than expected. Informed patient of the importance of adhering to a carb conscious diet for maintaining glucose levels. Review of Systems Review of Systems: All systems reviewed & are unremarkable except as noted in HPI and below (HPI) Exam Narrative: General: Pt is alert awake and in NAD Lungs/Chest: Trachea central Clear BS B/L, No crackles or wheezing. Cardiac: RRR. Normal S1 S2. No murmurs Circulation: Pedal pulses are intact and symmetrical. Abdomen: Normal bowel sounds.. Soft. NT. ND. Extremities: No clubbing, cyanosis or edema. Warm : Lundy in place Neurologic: Follows commands. Moves all 4 extremities PERRL AO x3 Skin: No Rash Const: General: comfortable and no acute distress Other: , female, modestly ill-appearing HENMT: Face/Nose/Sinus: Normal nares present Mouth: Yes dry mucous mem branes Eyes: General: appearance normal, both eyes and all related structures Sclera: sclerae normal Pupils: Equal, round and reactive pupils present EOM: EOMs intact bilaterally Resp: Effort & Inspection: normal respiratory effort Auscultation: clear to auscultation bilaterally Cardio: Rate: regular rate Rhythm: regular rhythm Other: S1-S2 present without murmur, rub, ectopy GI: Other: Abdomen soft, nondistended, nontender. Normoactive bowel sounds in all quadrants. Skin: General skin exam: normal color and no rashes or lesions noted Wounds: no wounds Neuro: Cranial nerves: Yes Equal, round and reactive pupils present Speech: normal speech Motor exam (neuro): 5/5 motor strength present throughout Sensory Exam: normal sensation Other: A&O x4 Extrem: General: normal to inspection Psych: Mental Status: mental status grossly normal Affect: normal affect Other: Good insight and judgment, pleasant Objective Data Vital Signs Vital Signs: Vital Signs - 24 hr 05/24/25 16:00 05/24/25 19:33 05/25/25 05:34 Temperature 98.1 F 98.3 F 98.1 F Pulse Rate 67 78 94 Respiratory Rate 14 16 16 Blood Pressure 128/91 H 117/71 116/58 L Pulse Oximetry 100 100 98 Intake/Output Intake/Output: Intake & Output 05/22/25 05/23/25 05/24/25 05/25/25 23:59 23:59 23:59 23:59 Intake Total 5407.5 1890 740 Balance 5407.5 1890 740 Meds/Results Medications: Active Medications Generic Name Dose Route Start Last Admin Trade Name Freq PRN Reason Stop Dose Admin Acetaminophen 650 mg 05/23/25 16:25 Acetaminophen 325 Mg Tablet PO Q6H PRN Mild Pain (1-3) or Fever Dextrose 12.5 gm 05/23/25 12:01 Dextrose 50% 25 Gm/50 Ml Syringe IV PUSH PRN PRN Hypoglycemia Protocol Glucagon 1 mg 05/23/25 12:01 Glucagon For Inj 1 Mg Vial IM PRN PRN Hypoglycemia Protocol Glucose 15 gm 05/23/25 12:01 Glucose Oral Gel 15 Gm Of Glucse In 37.5 Gm Tube PO PRN PRN Hypoglycemia Protocol Dextrose 1,000 mls @ 100 mls/hr 05/23/25 12:01 Dextrose 5% 1,000 Ml IVPB PRN PRN Hypoglycemia Protocol Insulin Aspart 3 - 6 units 05/24/25 17:00 05/25/25 12:26 Insulin Aspart (*Bkc) 100 Units/Ml SUB-Q 6 units Q4H [facility] Administration Protocol Insulin Human Regular 1 each 05/24/25 06:00 05/25/25 06:24 Home Medication Insulin XX 1 each DAILY@0600 [facility] Administration Ketorolac Tromethamine 30 mg 05/23/25 13:12 Ketorolac 30 Mg/Ml Vial (*Bkc) IV PUSH 05/28/25 13:11 Q6H PRN Pain Rated 4-6 Morphine Sulfate 2 mg 05/23/25 13:12 Morphine Sulfate (*Crx) 2 Mg/Ml Inj IV PUSH Q2H PRN Pain Rated 7-10 Ondansetron HCl 4 mg 05/23/25 13:12 Ondansetron Inj 4 Mg/2 Ml Vial IV PUSH Q4H PRN Nausea Radiology Results: ITS Impressions Abdomen/Pelvis CT 05/23/25 10:39 IMPRESSION: 1. No acute intra-abdominal/pelvic process. Chest X-Ray 05/23/25 10:45 IMPRESSION: 1. No acute cardiopulmonary disease. Labs Labs: Laboratory Results - last 24 hr 05/24/25 05/24/25 05/24/25 14:32 16:05 19:31 WBC RBC Hgb Hct MCV MCH MCHC RDW Plt Count MPV Immature Gran % (Auto) Neut % (Auto) Lymph % (Auto) [place] % (Auto) Eos % (Auto) Baso % (Auto) Lymph # (Auto) [place] # (Auto) Eos # (Auto) Baso # (Auto) Abs Immat Gran (auto) Absolute Neuts (auto) Absolute Nucleated RBC Nucleated RBC % Sodium Potassium Chloride Carbon Dioxide Anion Gap BUN Creatinine Estim Creat Clear Calc Estimated GFR Glucose POC Capillary Glucose 413 H 370 H 341 H Calcium Phosphorus Magnesium Total Bilirubin AST ALT Alkaline Phosphatase Total Protein Albumin 05/24/25 05/25/25 05/25/25 23:54 00:53 04:46 WBC 9.4 RBC 3.94 L Hgb 11.6 L Hct 33.8 L MCV 85.8 MCH 29.4 MCHC 34.3 RDW 12.7 Plt Count 276 MPV 9.3 Immature Gran % (Auto) 0.1 Neut % (Auto) 47.7 Lymph % (Auto) 43.8 [place] % (Auto) 6.4 Eos % (Auto) 1.7 Baso % (Auto) 0.3 Lymph # (Auto) 4.12 H [place] # (Auto) 0.6 Eos # (Auto) 0.2 Baso # (Auto) 0.0 Abs Immat Gran (auto) 0.01 Absolute Neuts (auto) 4.5 Absolute Nucleated RBC 0.000 Nucleated RBC % 0.0 Sodium 136 L Potassium 3.8 Chloride 104 Carbon Dioxide 23 Anion Gap 9 BUN 14 Creatinine 0.63 L Estim Creat Clear Calc 78 Estimated GFR > 60 Glucose 153 H POC Capillary Glucose 219 H 264 H Calcium 9.1 Phosphorus 3.3 Magnesium 1.9 Total Bilirubin 0.6 AST 22 ALT 14 Alkaline Phosphatase 62 Total Protein 6.6 Albumin 3.8 05/25/25 05/25/25 05/25/25 05:10 07:46 11:42 WBC RBC Hgb Hct MCV MCH MCHC RDW Plt Count MPV Immature Gran % (Auto) Neut % (Auto) Lymph % (Auto) [place] % (Auto) Eos % (Auto) Baso % (Auto) Lymph # (Auto) [place] # (Auto) Eos # (Auto) Baso # (Auto) Abs Immat Gran (auto) Absolute Neuts (auto) Absolute Nucleated RBC Nucleated RBC % Sodium Potassium Chloride Carbon Dioxide Anion Gap BUN Creatinine Estim Creat Clear Calc Estimated GFR Glucose POC Capillary Glucose 160 H 235 H 381 H Calcium Phosphorus Magnesium Total Bilirubin AST ALT Alkaline Phosphatase Total Protein Albumin 05/25/25 12:23 WBC RBC Hgb Hct MCV MCH MCHC RDW Plt Count MPV Immature Gran % (Auto) Neut % (Auto) Lymph % (Auto) [place] % (Auto) Eos % (Auto) Baso % (Auto) Lymph # (Auto) [place] # (Auto) Eos # (Auto) Baso # (Auto) Abs Immat Gran (auto) Absolute Neuts (auto) Absolute Nucleated RBC Nucleated RBC % Sodium Potassium Chloride Carbon Dioxide Anion Gap BUN Creatinine Estim Creat Clear Calc Estimated GFR Glucose POC Capillary Glucose 417 H Calcium Phosphorus Magnesium Total Bilirubin AST ALT Alkaline Phosphatase Total Protein Albumin Quality VTE Prophylaxis VTE prophylaxis: mechanical ordered
[2025-05-25 14:00] VITALS: BP 140/90; PULSE 94; RESP 16; TEMP 37.1; O2SAT 99
[2025-05-25] MEDS: INSULIN GLARGINE (*BKC) 100 UNITS/ML 10 UNITS SUB-Q (21:37)
[2025-05-25 23:58] VITALS: BP 140/87; PULSE 81; RESP 18; TEMP 36.7; O2SAT 100
[2025-05-26] MEDS: GLUCOSE ORAL GEL 15 GM OF GLUCSE IN 37.5 GM TUBE PO (00:18)
[2025-05-26 05:28] LABS: Hematocrit 34.0 % (37.0-47.0); Hemoglobin 11.2 g/dL (12.0-15.0); Immature Granulocyte Percent A 0.0 % (0-0.5); Lymphocytes Absolute Auto 3.97 K/mm3 (0.9-3.2); Mean Corpuscular HGB Conc 32.9 g/dl (32-36); Mean Corpuscular Hemoglobin 28.7 pg (26-34); Mean Corpuscular Volume 87.2 fl (80-100); Nucleated Red Blood Cells Absolute Auto 0.000 K/mm3 (0.0-0.012); Nucleated Red Blood Cells Perc 0.0 % (0.0-0.2); Platelet Count Result 256 k/mm3 (150-375); Red Blood Count 3.90 M/mm3 (4.2-5.4); White Blood Count 6.7 K/mm3 (4.5-10.0)
[2025-05-26 05:44] LABS: Alanine Aminotransferase 13 U/L (6-35); Albumin Level 3.8 g/dL (3.5-5.1); Alkaline Phosphatase 51 U/L (38-126); Anion Gap 10 mmol/L (4-12); Aspartate Amino Transferase 22 U/L (14-36); Bilirubin,Total 0.7 mg/dL (0.2-1.3); Blood Urea Nitrogen 13 mg/dL (7-17); Calcium 8.9 mg/dL (8.4-10.2); Carbon Dioxide 24 mmol/L (22-30); Chloride 104 mmol/L (98-107); Estimated CRCL calculation 89 ml/min; Estimated Glomerular Filt Rate > 60; Glucose 106 mg/dL (65-110); Magnesium 1.9 mg/dL (1.6-2.3); Potassium 3.3 mmol/L (3.4-5.0); Sodium 138 mmol/L (137-145); Total Protein 6.6 g/dL (6.3-8.2)
[2025-05-26 06:05] VITALS: BP 127/70; PULSE 82; RESP 18; TEMP 36.6; O2SAT 99
--- NOTE | 2025-05-26 08:52 | PC.NURSE ---
0600 ORDER for home medication Insulin Pump. Pt pump has been removed. Two episodes of hypoglycemia overnight & BG < 150 after juice given. [place] notified of all these things. No scheduled insulin for mealtime & pt requesting insulin at this time. Pt educated re: low blood glucose & no need to give insulin at this time.
[2025-05-26] MEDS: INSULIN ASPART (*BKC) 100 UNITS/ML SUB-Q (11:46)
--- NOTE | 2025-05-26 12:57 | P.DS_ITS ---
DS: Admitting Diagnosis Discharge Date 05/26/2025 Admitting Diagnosis DKA DS: Discharge Diagnosis Discharge Diagnosis (1) DKA (diabetic ketoacidosis): Qualifiers: Diabetes mellitus complication detail: without coma Diabetes mellitus type: type 1 Qualified Code(s): E10.10 - Type 1 diabetes mellitus with ketoacidosis without coma Code(s): E11.10 - Type 2 diabetes mellitus with ketoacidosis without coma Status: Acute (2) Leukocytosis: Code(s): D72.829 - Elevated white blood cell count, unspecified Status: Acute (3) Hyperkalemia: Code(s): E87.5 - Hyperkalemia Status: Acute (4) Electrolyte abnormality: Code(s): E87.8 - Other disorders of electrolyte and fluid balance, not elsewhere classified Status: Acute DS: Summary Hospital Course Reason for hospitalization: DKA Hospital Course: 19 y/o F with PMH of DM1 presents here with hyperglycemia. The patient presents here from home on 05/23 for further evaluation of hyperglycemia and concerns for DKA. She reports she has been hypoglycemic since last night, her glucose at home has been running which wean the 300s and 400s. She wears a continuous glucose monitor and an insulin pump which he reports have been functional? She self administered 7.6 units of fast acting insulin at 2:00 a.m. in addition to what her insulin pump had been delivering. Hyperglycemia is accompanied by fatigue, body aches, and 1 episode of nausea and vomiting. She denies accompanying fever, chills, constipation, diarrhea. She does report some mild abdominal discomfort, however recently started cycle. She arrived to the emergency department with a glucose of 278. She reports a history of DKA, last occurrence in October of 2024. Patient is also reporting possible issue with her pump during the needle insertion, however has not noted any issues post insertion. No issues with her continuous glucose monitor. Initial VS at presentation: 98.4? F, HR 118, RR 25, 122/59, and 100% on RA. ED workup showed: WBC 19.5, no anemia, ABG showed a pH 7.328, potassium 4.6 (repeat 5.3), creatinine 0.75 and GFR >60, glucose 304, A1c 6.7%, beta hydroxy 2.19, UA had a cloudy appearance/high specific gravity/3+ glucose/4+ ketones/1+ blood otherwise unremarkable, hCG negative. CT of the abdomen/pelvis showed no acute intra-abdominal/pelvic process. CXR showed no acute cardiopulmonary disease. Patient was admitted to ICU, DKA likely secondary to insulin pump malfuncti on/incorrect insertion of needle. Patient was initially given IV fluid bolus and started on insulin infusion with Q 1 H glucose monitoring. Patient was also found to be hypokalemic, likely secondary due to the DKA. Throughout the next day, patient's anion gap closed and symptoms subsided. Hyperkalemia and leukocytosis also subsided upon correction of DKA. Patient was then transferred to inpatient floor, SSI was then initiated with Lantus HS. On 05/25, patient was observed having a breakfast with pancakes, this gets, and other carbs. She was initially ordered a car with conscious diet but refused and ordered an alternative breakfast instead. Subsequent glucose levels were in the 400s, this is when Lantus was initiated and patient was instructed to maintain the carb conscious diet throughout hospitalization. On the evening of 05/25, glucose levels remained I and patient's insulin pump was discontinued. 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 Patient's mom has brought her Dexcom and is able to maintain proper functionality of the insulin pump/dex com at home without any difficulties at this time. Patient is otherwise hemodynamically stable and can be discharged home. Blood work on 05/26 showed no anion gap or major electrolyte abnormalities. 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 Status at Discharge Functional status at discharge: independent ambulation Overall status at discharge: patient is back to baseline Time Spent with Patient Time attestation: Total time spent providing and/or coordinating discharge services: 51 Exam Narrative: General: Pt is alert awake and in NAD Lungs/Chest: Trachea central Clear BS B/L, No crackles or wheezing. Cardiac: RRR. Normal S1 S2. No murmurs Circulation: Pedal pulses are intact and symmetrical. Abdomen: Normal bowel sounds.. Soft. NT. ND. Extremities: No clubbing, cyanosis or edema. Warm : Lundy in place Neurologic: Follows commands. Moves all 4 extremities PERRL AO x3 Skin: No Rash Const: General: comfortable and no acute distress Other: , female, modestly ill-appearing HENMT: Face/Nose/Sinus: Normal nares present Mouth: Yes dry mucous me mbranes Eyes: General: appearance normal, both eyes and all related structures Sclera: sclerae normal Pupils: Equal, round and reactive pupils present EOM: EOMs intact bilaterally Resp: Effort & Inspection: normal respiratory effort Auscultation: clear to auscultation bilaterally Cardio: Rate: regular rate Rhythm: regular rhythm Other: S1-S2 present without murmur, rub, ectopy GI: Other: Abdomen soft, nondistended, nontender. Normoactive bowel sounds in all quadrants. Skin: General skin exam: normal color and no rashes or lesions noted Wounds: no wounds Neuro: Cranial nerves: Yes Equal, round and reactive pupils present Speech: normal speech Motor exam (neuro): 5/5 motor strength present throughout Sensory Exam: normal sensation Other: A&O x4 Extrem: General: normal to inspection Psych: Mental Status: mental status grossly normal Affect: normal affect Other: Good insight and judgment, pleasant DS: Data Data Completed and Pending Labs on day of discharge: Labs from last 24 hours 05/26/25 05/26/25 05/26/25 11:23 08:46 07:50 WBC RBC Hgb Hct MCV MCH MCHC RDW Plt Count MPV Immature Gran % (Auto) Neut % (Auto) Lymph % (Auto) [place] % (Auto) Eos % (Auto) Baso % (Auto) Lymph # (Auto) [place] # (Auto) Eos # (Auto) Baso # (Auto) Abs Immat Gran (auto) Absolute Neuts (auto) Absolute Nucleated RBC Nucleated RBC % Sodium Potassium Chloride Carbon Dioxide Anion Gap BUN Creatinine Estim Creat Clear Calc Estimated GFR Glucose POC Capillary Glucose 220 H 104 81 Calcium Phosphorus Magnesium Total Bilirubin AST ALT Alkaline Phosphatase Total Protein Albumin 05/26/25 05/26/25 05/26/25 05:03 04:23 03:52 WBC 6.7 RBC 3.90 L Hgb 11.2 L Hct 34.0 L MCV 87.2 MCH 28.7 MCHC 32.9 RDW 12.7 Plt Count 256 MPV 9.0 Immature Gran % (Auto) 0.0 Neut % (Auto) 30.6 L Lymph % (Auto) 59.2 H [place] % (Auto) 7.3 Eos % (Auto) 2.5 Baso % (Auto) 0.4 Lymph # (Auto) 3.97 H [place] # (Auto) 0.5 Eos # (Auto) 0.2 Baso # (Auto) 0.0 Abs Immat Gran (auto) 0.00 Absolute Neuts (auto) 2.1 Absolute Nucleated RBC 0.000 Nucleated RBC % 0.0 Sodium 138 Potassium 3.3 L Chloride 104 Carbon Dioxide 24 Anion Gap 10 BUN 13 Creatinine 0.54 L Estim Creat Clear Calc 89 Estimated GFR > 60 Glucose 106 POC Capillary Glucose 107 H 50 L* Calcium 8.9 Phosphorus 4.2 Magnesium 1.9 Total Bilirubin 0.7 AST 22 ALT 13 Alkaline Phosphatase 51 Total Protein 6.6 Albumin 3.8 05/26/25 05/25/25 05/25/25 00:38 23:55 20:35 WBC RBC Hgb Hct MCV MCH MCHC RDW Plt Count MPV Immature Gran % (Auto) Neut % (Auto) Lymph % (Auto) [place] % (Auto) Eos % (Auto) Baso % (Auto) Lymph # (Auto) [place] # (Auto) Eos # (Auto) Baso # (Auto) Abs Immat Gran (auto) Absolute Neuts (auto) Absolute Nucleated RBC Nucleated RBC % Sodium Potassium Chloride Carbon Dioxide Anion Gap BUN Creatinine Estim Creat Clear Calc Estimated GFR Glucose POC Capillary Glucose 139 H 52 L* 192 H Calcium Phosphorus Magnesium Total Bilirubin AST ALT Alkaline Phosphatase Total Protein Albumin 05/25/25 05/25/25 05/25/25 16:55 15:32 14:07 WBC RBC Hgb Hct MCV MCH MCHC RDW Plt Count MPV Immature Gran % (Auto) Neut % (Auto) Lymph % (Auto) [place] % (Auto) Eos % (Auto) Baso % (Auto) Lymph # (Auto) [place] # (Auto) Eos # (Auto) Baso # (Auto) Abs Immat Gran (auto) Absolute Neuts (auto) Absolute Nucleated RBC Nucleated RBC % Sodium Potassium Chloride Carbon Dioxide Anion Gap BUN Creatinine Estim Creat Clear Calc Estimated GFR Glucose POC Capillary Glucose 280 H 335 H 389 H Calcium Phosphorus Magnesium Total Bilirubin AST ALT Alkaline Phosphatase Total Protein Albumin Discharge Plan Discharge Attending physician on discharge: Marc Goodwin Consulting providers: Aftab Givens; Carlos Bedolla Discharging Clinician: Carlos Bedolla Anticipated Discharge Date/Time: 05/26/25 12:55 Patient Disposition: Home Activity: as tolerated Diet: as tolerated Discharge Instructions: Discharge disposition: Stable Take medications as prescribed Monitor blood pressures Take caution while standing, rising, or moving Change positions slowly taking a break between each position change If you standing feel dizzy sit back down and take a break Encouraged to continue with yearly vaccinations Return to the emergency department if he developed sudden shortness of breath, chest pain, nausea, vomiting, upset stomach or intractable diarrhea Return to the emergency department if you develop fever greater than 101.5 Follow-up with the primary care physician within 1-2 weeks Thank you for [facility] for your healthcare needs Patient Instructions: Antibiotic Form Patient Language: Panamanian Stand Alone Forms: General Discharge Information Follow-up/Referrals: PHYSICIAN NOT ON STAFF,NONSTAFF [Primary Care Provider] - Discharge Medications: Continued (DME) Dexcom G6 Sensor Device MISCELLANEOUS (DME) Dexcom G6 Transmitter Device MISCELLANEOUS (DME) Omnipod 5 G6-G7 Pods (Gen 5) Cartridge SUBCUT (DME) Omnipod 5 G6-G7 Intro Kt(Gen5) Cartridge SUBCUT insulin lispro [Humalog KwikPen Insulin] 100 unit/mL insulin pen 1 sliding scale dose SUBCUT TIDWM Rx Instructions: Uses to fill Omnipod Baqsimi 3 mg/actuation spray,non-aerosol 3 mg intranasal ONCE Rx Instructions: as a single dose Date of admission: 05/23/25 13:12 Primary Care Provider: PHYSICIAN NOT ON STAFF,NONSTAFF Admitting Provider: Marc Goodwin Attending physician on admission: Marc Goodwin Condition: Stable Quality VTE Prophylaxis VTE prophylaxis: mechanical ordered
--- NOTE | 2025-05-26 13:08 | PCDIET ---
Pt screened for low BMI. Noted pt reports her usual weight is 120-130#. States she has not lost any weight, assume current wt in chart is inaccurate. Diet is diabetic, intake 75-100% all meals, reports good appetite. No questions regarding blood sugar control.
--- NOTE | 2025-06-09 14:28 | PCCDE ---
06/09/25: Reached [facility] for courtesy DM follow up call. She saw MANAGER DEVELOPMENT at [employer] office last . Reports some medication adjustments made. Denies any questions, or need for further assistance at this time.
== END 2025-05-26 15:15 | disposition home or self-care (01) ==
LOC: ANHED 13:12 → ANHICU 13:56 → ANH2MED 05-24 17:54
PROVIDERS: Internal Medicine; Admitting Provider Family Medicine; Emergency Provider Physician Assistant; Visit Provider Family Medicine
DX: E10.10 Type 1 diabetes mellitus with ketoacidosis without coma (principal); D72.829 Elevated white blood cell count, unspecified; E87.5 Hyperkalemia; E87.8 Other disorders of electrolyte and fluid balance, not elsewhere classified; Z96.41 Presence of insulin pump (external) (internal); Z79.4 Long term (current) use of insulin; Z20.822 Contact with and (suspected) exposure to COVID-19
CPT/HCPCS: 36415; 36600; 71046; 74177; 80048; 80053; 81001; 81025; 82010; 82375; 82805; 82948; 83036; 83050; 83735; 84100; 85018; 85025; 87637; 87641; 96361; 96365; 96366; 96375; 96376; 99285; A9270; G0378; J1815; J1885; J2270; J7030; Q9967